=== PATIENT | male | born 1940 | race Caucasian/White ===

== ENCOUNTER → 2016-06-16 | Outpatient (CLI) | payer MEDICARE, OTHER ==
[~2016-06-16] MED LIST: ATEN50TA PO; ATOR40TA PO; CIPR500T78 PO; DULO60CA6 PO; LEVO200T39 PO; LISI1TAB10 PO; TRAM50TA2 PO
--- OUTSIDE RECORDS SUMMARY | 2016-06-16 14:54 | XMS REPORT | Continuity of Care Document ---
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 Name Role Phone BRIDGETT GUEVARA MD PCP Insurance Providers Payer Name Policy Number Subscriber Name Relationship [employer] Medicare [id number] Ilia Barbour 18 Self / Same As Patient [facility] [id number] Ilia Barbour 18 Self / Same As Patient Advance Directives Directive Response Recorded Date/Time Advance Directives No 07/09/14 12:40pm Health Care Power of Mechanical Designer No 07/09/14 12:40pm Organ Donor No 07/09/14 12:40pm Resuscitation Status Full Code 07/09/14 12:40pm Problems Medical Problems Problem Onset Date Status Urinary tract infection Unknown Active Medications Medication Dose Route Sig Days/Qty Instructions Order Date Discontinued Date Status Atorvastatin Calcium 1 Each PO DAILY 09/16/11 Active Atenolol 1 Each PO DAILY 09/16/11 Active HCTZ/Lisinopril (Zestoretic) 1 Each PO DAILY 09/16/11 Active Levothyroxine Sodium 200 Mcg PO 09/16/11 Active Duloxetine HCl 1 Each PO DAILY 09/16/11 Active Tramadol Hcl 50 Mg PO 09/16/11 Active Ciprofloxacin HCl 500 Mg PO TWICE A DAY 14 Qty 07/09/14 Active Social History Social History Problem Response Recorded Date/Time Alcohol Use Denies Use 07/09/2014 12:40pm Recreational Drug Use No 07/09/2014 12:40pm Recent Foreign Travel No 07/09/2014 12:40pm Recent Infectious Disease Exposure No 07/09/2014 12:40pm Hospitalization with Isolation Denies 07/09/2014 12:40pm Smoking Status Former Smoker 07/09/2014 12:40pm Query Response Start Date Stop Date Smoking Status Former Smoker 06/06/1995 Hospital Discharge Instructions No hospital discharge instructions. Plan of Care No plan of care. Functional Status No functional status results. Allergies, Adverse Reactions, Alerts Allergen Type Severity Reaction Status Last Updated No Known Drug Allergies Active 09/17/11 Immunizations Name Given Type Date of Influenza Vaccine 02/04/14 Historical Vital Signs Acute Vital Signs Vital Response Date/Time Temperature (Fahrenheit) 96.9 degrees F (97.6 - 99.5) Temperature (Calculated Celsius) 36.80637 degrees C (36.4 - 37.5) Temperature Source Temporal Pulse Rate (adult) 78 bpm (60 - 90) Respiratory Rate 20 bpm (12 - 24) O2 Sat by Pulse Oximetry 94 % (88 - 100) Blood Pressure 120/76 mm Hg Pain Pain Intensity 0 Height (Feet) 6 feet Height (Inches) 1 inches Height (Calculated Centimeters) 185.150062 cm Weight (Pounds) 255 pounds Weight (Calculated Kilograms) 115.206415 kilograms Calculated BMI 33.64 Results Laboratory Results Test Name Result Units Flags Reference Collection Date/Time Result Date/ Time Comments Urine Color YELLOW 07/09/2014 1:19pm 07/09/2014 1:41pm Urine Clarity VERY CLOUDY * 07/09/2014 1:pm 07/09/2014 1:41pm Urine pH 6 5-9 07/09/2014 1:19pm 07/09/2014 1:41pm Urine Specific [place] 1.015 * 1.016-1.022 07/09/2014 1:19pm 2014 1:41pm Urine Protein 2+ * NEGATIVE 07/09/2014 1:19pm 07/09/2014 1:41pm Urine Glucose (UA) NEGATIVE NEGATIVE 07/09/2014 1:19pm 07/09/2014 1: 41pm Urine RBC (Auto) 4+ * NEGATIVE 07/09/2014 1:19pm 07/09/2014 1:41pm Urine Ketones NEGATIVE NEGATIVE 07/09/2014 1:pm 07/09/2014 1:41pm Urine Nitrite NEGATIVE NEGATIVE 07/09/2014 1:pm 07/09/2014 1:41pm Urine Bilirubin NEGATIVE NEGATIVE 07/09/2014 1:pm 07/09/2014 1: 41pm Urine Urobilinogen 8 MG/DL * NORMAL 07/09/2014 1:19pm 07/09/2014 1:41pm Urine Leukocyte Esterase 3+ * NEGATIVE 07/09/2014 1:pm 07/09/2014 1: 41pm Urine RBC 0-2 /HPF 07/09/2014 1:pm 07/09/2014 1:41pm Urine WBC >100 /HPF * 07/09/2014 1:pm 07/09/2014 1:41pm Urine Bacteria MODERATE /HPF * 07/09/2014 1:pm 07/09/2014 1:41pm Urine Squamous Epithelial Cells RARE /HPF 07/09/2014 1:19pm 2014 1:41pm Urine Crystals NONE /LPF 07/09/2014 1:19pm 07/09/2014 1:41pm Urine Casts NONE /LPF 07/09/2014 1:19pm 07/09/2014 1:41pm Urine Mucus NEGATIVE /LPF 07/09/2014 1:19pm 07/09/2014 1:41pm Urine Culture Indicated YES 07/09/2014 1:pm 07/09/2014 1:41pm Procedures No known history of procedures. Encounters Encounter Location Date/Time Departed Emergency Room [facility] 07/09/14 12:31pm Recent Diagnosis
[2016-06-16 15:09] LABS: BILIRUBIN,URINE NEGATIVE (NEGATIVE); KETONES,URINE NEGATIVE (NEGATIVE); LEUKOCYTE ESTERASE ,URINE 3+ (NEGATIVE); NITRITE,URINE POSITIVE (NEGATIVE); PH,URINE 6.5 (5-9); PROTEIN,URINE NEGATIVE (NEGATIVE); UROBILINOGEN,URINE NORMAL (NORMAL)
[2016-06-16 15:18] LABS: WBC,URINE TNTC /HPF
== END ==
LOC: LAB 14:48
PROVIDERS: ATTEND Internal Medicine
DX: R31.0 Gross hematuria (principal); R32 Unspecified urinary incontinence
CPT/HCPCS: 81000; 87088; 87186

== ENCOUNTER → 2018-01-05 | Outpatient (CLI) | payer MEDICARE, OTHER ==
[2018-01-05 16:59] LABS: BILIRUBIN,URINE NEGATIVE (NEGATIVE); CLARITY,URINE SLIGHTLY CLOUDY; COLOR,URINE YELLOW; GLUCOSE, URINE (UA) NEGATIVE (NEGATIVE); KETONES,URINE NEGATIVE (NEGATIVE); LEUKOCYTE ESTERASE ,URINE 3+ (NEGATIVE); NITRITE,URINE NEGATIVE (NEGATIVE); PH,URINE 6.5 (5-9); PROTEIN,URINE 1+ (NEGATIVE); UROBILINOGEN,URINE NORMAL (NORMAL)
[2018-01-05 17:11] LABS: BACTERIA,URINE FEW /HPF; RBC,URINE 0-2 /HPF; SQUAMOUS EPITHELIAL CELL,UR 0-2 /HPF; WBC,URINE 25-50 /HPF
== END ==
LOC: LAB 16:43
PROVIDERS: ATTEND Internal Medicine
DX: N39.0 Urinary tract infection, site not specified (principal)
CPT/HCPCS: 81000; 87088; 87186

== ENCOUNTER 2018-02-14 14:57 | Inpatient (IN) | payer MEDICARE, OTHER ==
[~2018-02-14] VITALS: Ht 180.3 cm; Wt 158.9 kg
--- OUTSIDE RECORDS SUMMARY | 2018-02-14 15:01 | XMS REPORT | Continuity of Care Document ---
Author Author [facility] Organization [facility] Address Unknown Phone Unavailable Allergies Active Description Code Type Severity Reaction Onset Reported/Identified Relationship to Patient Clinical Status Yes No Known Drug Allergies [id number] Drug Allergy Unknown N/A 09/17/2011 Medications There is no data. Problems Date Dx Coded Attending Type Code Diagnosis Diagnosed By 09/17/2011 Ot 211.1 09/17/2011 Ot 211.3 09/17/2011 Ot 535.40 09/17/2011 Ot 562.00 09/17/2011 Ot 562.10 09/17/2011 Ot 569.3 09/17/2011 Ot 783.21 09/17/2011 Ot 787.99 07/09/2014 HUAN GRAY WELDER/FITTER Ot 599.0 07/09/2014 HUAN GRAY APRN Ot 788.1 08/28/2014 Ot 722.52 08/28/2014 Ot 783.21 08/28/2014 Ot V10.90 08/28/2014 Ot V72.84 08/28/2014 Ot 782.3 09/09/2014 ANGÉLICA LEAVITT MD Ot 250.60 09/09/2014 ANGÉLICA LEAVITT MD Ot 272.4 09/09/2014 ANGÉLICA LEAVITT MD Ot 357.2 09/09/2014 ANGÉLICA LEAVITT MD Ot 401.9 09/09/2014 ANGÉLICA LEAVITT MD Ot 412 09/09/2014 ANGÉLICA LEAVITT MD Ot 414.01 09/09/2014 ANGÉLICA LEAVITT MD Ot 440.8 09/09/2014 ANGÉLICA LEAVITT MD Ot 729.5 09/09/2014 ANGÉLICA LEAVITT MD Ot E11.40 09/09/2014 ANGÉLICA LEAVITT MD Ot I10 09/09/2014 ANGÉLICA LEAVITT MD Ot I25.10 09/09/2014 ANGÉLICA LEAVITT MD Ot I25.2 09/09/2014 TREE GARZON, ANGÉLICA Pino Ot I70.8 09/09/2014 TREE GARZON, ANGÉLICA Pino Ot M79.609 10/01/2014 ISMAEL GARZON, BRIDGETT Lawson Ot 443.9 10/25/2014 ISMAEL GARZON, BRIDGETT Lawson Ot 443.9 01/09/2015 Ot 722.52 01/09/2015 Ot 783.21 01/09/2015 Ot V10.90 01/09/2015 Ot V72.84 01/09/2015 Ot 782.3 01/09/2015 ISMAEL GARZON, BRIDGETT Lawson Ot 443.9 01/09/2015 ISMAEL GARZON, BRIDGETT Lawson Ot 724.4 01/09/2015 ISMAEL GARZON, BRIDGETT Lawson Ot 736.79 01/16/2015 ISMAEL GARZON, BRIDGETT Lawson Ot 724.4 01/16/2015 ISMAEL GARZON, BRIDGETT Lawson Ot 736.79 01/16/2015 ISMAEL GARZON, BRIDGETT Lawson Ot V57.1 01/21/2015 ISMAEL GARZON, BRIDGETT Lawson Ot 724.4 01/21/2015 ISMAEL GARZON, BRIDGETT Lawson Ot 736.79 01/30/2015 ISMAEL GARZON, BRIDGETT Lawson Ot 724.4 01/30/2015 ISMAEL GARZON, BRIDGETT Lawson Ot 736.79 02/13/2015 ISMAEL GARZON, BRIDGETT Lawson Ot 724.4 02/13/2015 ISMAEL GARZON, BRIDGETT Lawson Ot 736.79 02/13/2015 ISMAEL GARZON, BRIDGETT Lawson Ot V57.1 04/01/2015 DIANDRA IVEY DO Ot M54.16 04/10/2015 DIANDRA IVEY DO Ot M54.16 02/27/2016 BRIDGETT GUEVARA MD Ot N39.0 URINARY TRACT INFECTION, SITE NOT SPECIF 03/18/2016 BRIDGETT GUEVARA MD Ot N39.0 URINARY TRACT INFECTION, SITE NOT SPECIF 06/17/2016 BRIDGETT GUEVARA MD Ot R31.0 GROSS HEMATURIA 06/17/2016 BRIDGETT GUEVARA MD Ot R32 UNSPECIFIED URINARY INCONTINENCE 07/07/2016 BRIDGETT GUEVARA MD Ot R31.0 GROSS HEMATURIA 07/07/2016 BRIDGETT GUEVARA MD, Ot R32 UNSPECIFIED URINARY INCONTINENCE Procedures There is no data. Results Test Result Range Bacterial urine culture - 02/26/16 14:04 Bacterial urine culture [id number] NRG COLONY COUNT >100,000/ML NRG FTX;REPORTABLE SENSITIVITY REPORTED 02/26 14:50 NR Bacterial susceptibility panel - 02/26/16 14:04 Gentamicin susceptibility test by minimum inhibitory concentration < = NRG Trimethoprim/sulfamethoxazole susceptibility test by minimum inhibitoryconcentration <= NRG Ampicillin susceptibility test by minimum inhibitory concentration < = NRG Tobramycin susceptibility test by minimum inhibitory concentration < = NRG Cefazolin susceptibility test by minimum inhibitory concentration < = NRG Ceftriaxone susceptibility test by minimum inhibitory concentration <= NRG Ampicillin/sulbactam susceptibility test by minimum inhibitory concentration <= NRG Piperacillin/tazobactam susceptibility test by minimum inhibitory concentration <= NRG Ciprofloxacin susceptibility test by minimum inhibitory concentration <= NRG Meropenem susceptibility test by minimum inhibitory concentration < = NRG Nitrofurantoin susceptibility test by minimum inhibitory concentration <= NRG Aztreonam susceptibility test by minimum inhibitory concentration < = NRG Extended spectrum beta lactamase (ESBL) producing bacteria susceptibility test by minimum inhibitory concentration - NRG Complete urinalysis with reflex to culture - 06/16/16 15:05 Urine color determination YELLOW NRG Urine clarity determination CLEAR NRG Urine pH measurement by test strip 6.5 5-9 Specific gravity of urine by test strip 1.010 1.016- 1.022 Urine protein assay by test strip, semi-quantitative NEGATIVE NEGATIVE Urine glucose detection by automated test strip NEGATIVE NEGATIVE Erythrocytes detection in urine sediment by light microscopy 1+ NEGATIVE Urine ketones detection by automated test strip NEGATIVE NEGATIVE Urine nitrite detection by test strip POSITIVE NEGATIVE Urine total bilirubin detection by test strip NEGATIVE NEGATIVE Urine urobilinogen measurement by automated test strip (mass/volume) NORMAL NORMAL Urine leukocyte esterase detection by dipstick 3+ NEGATIVE Automated urine sediment erythrocyte count by microscopy (number/high power field) [HPF] NRG Automated urine sediment leukocyte count by microscopy (number/high power field ) TNTC NRG Bacteria detection in urine sediment by light microscopy LARGE NRG Crystals detection in urine sediment by light microscopy NONE NRG Casts detection in urine sediment by light microscopy NONE NRG Mucus detection in urine sediment by light microscopy NEGATIVE NRG Complete urinalysis with reflex to culture YES NRG Bacterial urine culture - 06/16/16 15:05 Bacterial urine culture [id number] NRG COLONY COUNT >100,000/ML NRG FTX;REPORTABLE SENSITIVITY REPORTED 06/18 09:20 NRG Bacterial susceptibility panel - 06/16/16 15:05 Gentamicin susceptibility test by minimum inhibitory concentration < = NRG Trimethoprim/sulfamethoxazole susceptibility test by minimum inhibitoryconcentration <= NRG Ampicillin susceptibility test by minimum inhibitory concentration < = NRG Tobramycin susceptibility test by minimum inhibitory concentration < = NRG Cefazolin susceptibility test by minimum inhibitory concentration < = NRG Ceftriaxone susceptibility test by minimum inhibitory concentration <= NRG Ampicillin/sulbactam susceptibility test by minimum inhibitory concentration <= NRG Piperacillin/tazobactam susceptibility test by minimum inhibitory concentration <= NRG Ciprofloxacin susceptibility test by minimum inhibitory concentration <= NRG Meropenem susceptibility test by minimum inhibitory concentration < = NRG Nitrofurantoin susceptibility test by minimum inhibitory concentration <= NRG Aztreonam susceptibility test by minimum inhibitory concentration < = NRG Extended spectrum beta lactamase (ESBL) producing bacteria susceptibility test by minimum inhibitory concentration - NRG Complete urinalysis with reflex to culture - 01/05/18 16:54 Urine color determination YELLOW NRG Urine clarity determination SLIGHTLY CLOUDY NRG Urine pH measurement by test strip 6.5 5-9 Specific gravity of urine by test strip 1.010 1.016- 1.022 Urine protein assay by test strip, semi-quantitative 1+ NEGATIVE Urine glucose detection by automated test strip NEGATIVE NEGATIVE Erythrocytes detection in urine sediment by light microscopy 1+ NEGATIVE Urine ketones detection by automated test strip NEGATIVE NEGATIVE Urine nitrite detection by test strip NEGATIVE NEGATIVE Urine total bilirubin detection by test strip NEGATIVE NEGATIVE Urine urobilinogen measurement by automated test strip (mass/volume) NORMAL NORMAL Urine leukocyte esterase detection by dipstick 3+ NEGATIVE Automated urine sediment erythrocyte count by microscopy (number/high power field) [HPF] NRG Automated urine sediment leukocyte count by microscopy (number/high power field ) [HPF] NRG Bacteria detection in urine sediment by light microscopy FEW NRG Squamous epithelial cells detection in urine sediment by light microscopy 0-2 NRG Crystals detection in urine sediment by light microscopy NONE NRG Casts detection in urine sediment by light microscopy NONE NRG Mucus detection in urine sediment by light microscopy NEGATIVE NRG Complete urinalysis with reflex to culture YES NRG Bacterial urine culture - 01/05/18 16:54 Bacterial urine culture RML NRG COLONY COUNT . NRG FTX;REPORTABLE 80,000 CFU/ML NRG FREE TEXT ENTRY 2 RML SENT SENSITIVITY REPORT 01/07 11:06 NRG RML Sensitivity Panel - 01/05/18 16:54 Gentamicin susceptibility test by minimum inhibitory concentration 4 NRG Trimethoprim/sulfamethoxazole susceptibility test by minimum inhibitoryconcentration S NRG Levofloxacin susceptibility test by minimum inhibitory concentration <= NRG Ampicillin susceptibility test by minimum inhibitory concentration < = NRG Cefazolin susceptibility test by minimum inhibitory concentration 16 NRG Ceftriaxone susceptibility test by minimum inhibitory concentration <= NRG Ciprofloxacin susceptibility test by minimum inhibitory concentration <= NRG Nitrofurantoin susceptibility test by minimum inhibitory concentration R NRG Amoxicillin and clavulanate potassium susc MARINA <= NRG Encounters ACCT No. Visit Date/Time Discharge Status Pt. Type Provider Facility Loc./Unit Complaint [id number] 06/16/2016 14:48:00 06/16/2016 23:59:59 CLS Outpatient BRIDGETT GUEVARA MD [facility] LAB GROSS HEMATURIA, URINARY INCONTINENCE [id number] 02/26/2016 13:53:00 02/26/2016 23:59:59 CLS Outpatient BRIDGETT GUEVARA MD [facility] LAB PYURIA [id number] 03/11/2015 12:24:00 03/11/2015 23:59:59 CLS Outpatient DIANDRA IVEY DO [facility] RAD [id number] 02/13/2015 11:09:00 02/13/2015 12:17:00 DIS Outpatient BRIDGETT GUEVARA MD [facility] REHAB [id number] 12/27/2014 07:50:00 12/27/2014 23:59:59 CLS Outpatient BRIDGETT GUEVARA MD [facility] RAD [id number] 09/09/2014 06:54:00 09/09/2014 16:20:00 DIS Outpatient ANGÉLICA LEAVITT MD [facility] CATH [id number] 08/28/2014 09:21:00 08/28/2014 23:59:59 CLS Outpatient BRIDGETT GUEVARA MD [facility] RAD [id number] 07/09/2014 12:31:00 07/09/2014 14:13:00 DIS Emergency HUAN GRAY APRN [facility] [id number] 01/05/2018 17:11:00 Document Registration [id number] 07/10/2012 16:09:00 Document Registration [id number] 09/17/2011 06:52:00 Document Registration [id number] 09/16/2011 08:26:00 Document Registration [id number] 09/08/2011 11:11:00 Document Registration [id number] 10/09/2009 13:05:00 Document Registration [id number] 03/11/2015 15:28:34 ACT Document Registration
--- NOTE | 2018-02-14 15:12 | ED General ---
General Stated Complaint: UTI;AMS Source of Information: Patient, EMS Exam Limitations: Other (clinical condition, slightly obtunded) History of Present Illness Date Seen by Provider: Feb 14, 2018 Time Seen by Provider: 14:58 Initial Comments Patient presents to the ER by EMS with chief complaint he was at home and for the past several days she's been feeling sick week tired with fevers of 103 today MAXIMUM TEMPERATURE. and taken him to his primary care doctor's office in the last day or so and they did some labs and urinalysis but she doesn 't know what any of the results were. She says they were called out told something was wrong with him but she doesn't remember that nor does she think they were started on any antibiotics. There were told to come to the ER for evaluation. Patient does not have a Anguiano catheter use oxygen but his sats are around 90% so they initiated O2. EMS reports 103.1 fever when they got there. IV was initiated and fluids were started. Patient had a good blood pressure with some tachycardia above 90. Patient does not have a history of diabetes. He says he does take a baby aspirin daily. Apparently this is according to the his second attempt at outpatient antibiotics for UTIs in the last couple weeks. He has no history of kidney stones. He was having some right flank pain the last couple days however. Allergies and Home Medications Allergies Coded Allergies: No Known Drug Allergies (Unverified , 09/17/11) Home Medications Atenolol 50 Mg Tablet, 1 EACH PO DAILY, (Reported) Atorvastatin Calcium 40 Mg Tablet, 1 EACH PO DAILY, (Reported) Ciprofloxacin HCl 500 Mg Tablet, 500 MG PO BID Prescribed by: HUAN GRAY on 07/09/14 1345 Duloxetine Hcl 60 Mg Capsule.dr, 1 EACH PO DAILY, (Reported) Hctz/Lisinopril 1 Tab Tablet, 1 EACH PO DAILY, (Reported) Patient Home Medication List Home Medication List Reviewed: Yes Review of Systems Review of Systems Constitutional: chills, diaphoresis, fever, malaise EENTM: No ear discharge, No ear pain Respiratory: No cough, No short of breath Cardiovascular: No chest pain, No edema, No palpitations Gastrointestinal: abdominal pain (right flank); No nausea, No vomiting Genitourinary: decreased output; No discharge; dysuria; No frequency Musculoskeletal: No back pain, No joint pain Skin: No pruritus, No rash Past Nfhaksm-Fcdbvu-Aasdfa Hx Patient Social History Alcohol Use: Denies Use Recreational Drug Use: No Smoking Status: Never a Smoker Immunizations Up To Date Date of Influenza Vaccine: Feb 04, 2014 Seasonal Allergies Seasonal Allergies: No Physical Exam-Suspected Sepsis Physical Exam Vital Signs Vital Signs - First Documented 02/14/18 02/14/18 15:00 15:34 Temp 102.5 Pulse 98 Resp 20 B/P (MAP) 152/81 (104) Pulse Ox 97 O2 Delivery OxyMask O2 Flow Rate 4.00 Capillary Refill : Height, Weight, BMI Height: 6'1.00" Weight: 250lbs. oz. 113.433768ya; BMI Method: General Appearance: Moderate Distress, Obese Eyes: Bilateral Eye Normal Inspection, Bilateral Eye PERRL, Bilateral Eye EOMI HEENT: PERRL/EOMI, TMs Normal, Normal ENT Inspection; No Moist Mucous Membranes Neck: Full Range of Motion, Normal Inspection, Non Tender Respiratory: Chest Non Tender, Lungs Clear, Normal Breath Sounds, No Accessory Muscle Use, No Respiratory Distress Cardiovascular: Regular Rate, Rhythm, No Edema, Normal Peripheral Pulses Gastrointestinal: Normal Bowel Sounds, Non Tender, Soft Extremity: Normal Capillary Refill, Normal Inspection, Non Tender, No Calf Tenderness, No Pedal Edema Neurologic/Psychiatric: Alert, Oriented x3, Other (oriented to person and situation) Skin: warm/dry, pallor Focused Exam Sepsis Stage: Septic Shock Possible Source: Genitouriary Lactate Level 02/14/18 15:00: Lactic Acid Level 2.90*H 02/14/18 20:30: Lactic Acid Level 2.74*H Time of Focused Exam: 20:21 Respiratory: Chest Non Tender, Lungs Clear, Normal Breath Sounds, No Accessory Muscle Use, No Respiratory Distress Cardiovascular: Regular Rate, Rhythm, No Edema, Normal Peripheral Pulses Capillary Refill: Less Than 3 Seconds Peripheral Pulses: 2+ Radial Pulses (R), 2+ Radial Pulses (L) Skin: warm/dry, pallor Lactic Acid Level Laboratory Tests Test 02/14/18 20:30 Lactic Acid Level 2.74 MMOL/L (0.50-2.00) *H 2.9 Within 3hrs of presentation: Admin fluids, Admin 30ml/kg IBW due to BMI>30, Admin ABX, Blood cultures prior to ABX's, Focus exam, Lactate level, Vasopressin therapy, Other (central line placed) Procedures/Interventions Lumen: triple Central Line Procedure: betadine prep (chlorhexidine preps), sterile drapes applied, sterile dressing applied Position: internal jugular (L) Anesthesia: Lidocaine Volume Anesthetic (ccs): 3 Complications: none Post Position: sutured, good blood return, position confirmed w/ CXR Patient was positioned in the usual fashion and his right IJ was assessed using ultrasound. A large pulsating common carotid was seen but no right-sided internal jugular was visualized on ultrasound. Went to the left side and there is a large plump, compressible internal jugular vein visualized easily on ultrasound laterally. He was cleaned thoroughly with chlorhexidine preps and draped out in the usual sterile fashion. The provider was draped with sterile gown, mask, gloves and hair piece. The patient's head was positioned correctly and ultrasound probe under sterile conditions guided a introducer needle easily into the left IJ on first attempt with good blood return. We passed a guidewire easily without causing any ectopy and then made a small tuyet in the skin using 11 blade scalpel. We then removed the needle and put the dilator over the guidewire and removed the dilator. Then passed the previously flushed triple lumen 20 cm catheter over the guidewire, flushed it and That using the sterile caps PROVIDED. We stitched the braces to the scan as well as the triple-lumen to the skin in [address]. We put a Biopatch in place and applied a sterile dressing in the usual fashion. Chest x-ray was obtained showing a superficial placement at about the level of the clavicle on the left side of the sternum. The line was placed at 14 cm. Re-donning sterile garb we removed the sterile dressing cleaned thoroughly with chlorhexidine prep and removed 2 stitches and passed the central line to the 17 cm hussain. We then re-stitched in place for a new bile patch on cleaned again with ChloraPrep and reapplied a sterile dressing. Chest x-ray was obtained a second time showing a central line just passed the aortic knob on the left side. At this time this was considered satisfactory placement and we started the Levophed infusion through the central line as well as a normal saline at 200 cc an hour. Progress/Results/Core Measures Suspected Sepsis SIRS Temperature: Pulse: Respiratory Rate: Laboratory Tests 02/14/18 15:00: White Blood Count 5.3 Blood Pressure / Mean: 02/14/18 15:00: Lactic Acid Level 2.90*H 02/14/18 20:30: Lactic Acid Level 2.74*H Laboratory Tests 02/14/18 15:00: Creatinine 1.18, INR Comment 1.0, Platelet Count 153, Total Bilirubin 1.4H Results/Orders Lab Results Laboratory Tests Test 02/14/18 15:00 02/14/18 15:05 02/14/18 20:30 Range/Units White Blood Count 5.3 4.3-11.0 10^3/uL Red Blood Count 4.74 4.35-5.85 10^6/uL Hemoglobin 14.1 13.3-17.7 G/DL Hematocrit 42 40-54 % Mean Corpuscular Volume 89 80-99 FL Mean Corpuscular Hemoglobin 30 25-34 PG Mean Corpuscular Hemoglobin Concent 33 32-36 G/DL Red Cell Distribution Width 15.1 H 10.0-14.5 % Platelet Count 153 130-400 10^3/uL Mean Platelet Volume 11.1 H 7.4-10.4 FL Neutrophils (%) (Auto) 95 H 42-75 % Lymphocytes (%) (Auto) 4 L 12-44 % Monocytes (%) (Auto) 0 0-12 % Eosinophils (%) (Auto) 0 0-10 % Basophils (%) (Auto) 0 0-10 % Neutrophils # (Auto) 5.0 1.8-7.8 X 10^3 Lymphocytes # (Auto) 0.2 L 1.0-4.0 X 10^3 Monocytes # (Auto) 0.0 0.0-1.0 X 10^3 Eosinophils # (Auto) 0.0 0.0-0.3 10^3/uL Basophils # (Auto) 0.0 0.0-0.1 10^3/uL Neutrophils % (Manual) 82 % Lymphocytes % (Manual) 4 % Monocytes % (Manual) 0 % Eosinophils % (Manual) 0 % Basophils % (Manual) 0 % Band Neutrophils 14 % Blood Morphology Comment NORMAL Prothrombin Time 13.5 12.2-14.7 SEC INR Comment 1.0 0.8-1.4 Activated Partial Thromboplast Time 20 L 24-35 SEC Sodium Level 132 L 135-145 MMOL/L Potassium Level 4.4 3.6-5.0 MMOL/L Chloride Level 102 98-107 MMOL/L Carbon Dioxide Level 18 L 21-32 MMOL/L Anion Gap 12 5-14 MMOL/L Blood Urea Nitrogen 19 H 7-18 MG/DL Creatinine 1.18 0.60-1.30 MG/DL Estimat Glomerular Filtration Rate 60 BUN/Creatinine Ratio 16 Glucose Level 177 H 70-105 MG/DL Lactic Acid Level 2.90 *H 2.74 *H 0.50-2.00 MMOL/L Calcium Level 9.4 8.5-10.1 MG/DL Corrected Calcium 9.6 8.5-10.1 MG/DL Total Bilirubin 1.4 H 0.1-1.0 MG/DL Aspartate Amino Transf (AST/SGOT) 18 5-34 U/L Alanine Aminotransferase (ALT/SGPT) 20 0-55 U/L Alkaline Phosphatase 94 40-136 U/L Total Protein 6.8 6.4-8.2 GM/DL Albumin 3.7 3.2-4.5 GM/DL Urine Color YELLOW Urine Clarity SLIGHTLY CLOUDY Urine pH 8 5-9 Urine Specific [place] 1.010 L 1.016-1.022 Urine Protein 2+ H NEGATIVE Urine Glucose (UA) NEGATIVE NEGATIVE Urine Ketones NEGATIVE NEGATIVE Urine Nitrite POSITIVE H NEGATIVE Urine Bilirubin NEGATIVE NEGATIVE Urine Urobilinogen NORMAL NORMAL MG/DL Urine Leukocyte Esterase 3+ H NEGATIVE Urine RBC (Auto) 5+ H NEGATIVE Urine RBC 10-25 H /HPF Urine WBC TNTC H /HPF Urine Crystals NONE /LPF Urine Bacteria LARGE H /HPF Urine Casts NONE /LPF Urine Mucus NEGATIVE /LPF Urine Culture Indicated NO Micro Results Microbiology 02/14/18 Urine Culture - Preliminary, Resulted Sent To [facility] My Orders Orders - RISA BEST Cbc With Automated Diff (02/14/18 15:05) Comprehensive Metabolic Panel (02/14/18 15:05) Blood Culture (02/14/18 15:05) Sputum Culture (02/14/18 15:05) Urinalysis (02/14/18 15:05) Urine Culture (02/14/18 15:05) Protime With Inr (02/14/18 15:05) Partial Thromboplastin Time (02/14/18 15:05) Chest 1 View, Ap/Pa Only (02/14/18 15:05) Saline Lock/Iv-Start (02/14/18 15:05) Saline Lock/Iv-Start (02/14/18 15:05) Vital Signs Adult Sepsis Patie Q15M (02/14/18 15:05) O2 (02/14/18 15:05) Remove Rings In Anticipation O (02/14/18 15:05) Lactic Acid Analyzer (02/14/18 15:05) Ns Iv 1000 Ml (Sodium Chloride 0.9%) (02/14/18 15:05) Ceftriaxone For Iv Use (Rocephin For I (02/14/18 15:15) Acetaminophen Suppository (Tylenol Suppo (02/14/18 15:15) Manual Differential (02/14/18 15:00) Catheter(Urinary) Insert & Ass 03,15 (02/14/18 15:46) Ct Abd/Pelvis Wo(Kidney Stone) (02/14/18 16:10) Norepinephrine (Levophed) (02/14/18 18:28) Chest 1 View, Ap/Pa Only (02/14/18 19:24) Chest 1 View, Ap/Pa Only (02/14/18 19:41) Abdomen/Kub 1view (02/14/18 20:26) Medications Given in ED Current Medications Medications Dose Ordered Sig/Connor Route Start Time Stop Time Status Last Admin Dose Admin Acetaminophen 650 mg ONCE ONCE MN 02/14/18 15:15 02/14/18 15:16 DC 02/14/18 16:03 650 MG Ceftriaxone Sodium 1000 mg/ Sodium Chloride 60 ml @ 100 mls/hr ONCE ONCE IV 02/14/18 15:15 02/14/18 15:50 DC 02/14/18 16:02 100 MLS/HR Vital Signs/I&O 02/14/18 02/14/18 02/14/18 15:00 15:34 19:53 Temp 102.5 101.2 Pulse 98 96 Resp 20 24 B/P (MAP) 152/81 (104) 98/55 (69) Pulse Ox 97 92 94 O2 Delivery OxyMask OxyMask O2 Flow Rate 4.00 8.00 Capillary Refill : Progress Note : Time: 18:45 Progress Note Patient's blood pressure started taking a tank after the antibiotics were delivered. We ordered a third liter and a still or going down with a map of about 60. We decided to initiate a central line and Levophed drip. Initially Levophed drip of 5 g brought him up to a blood pressure 110 so we dropped the Levophed to 2.5 mcg/m. A central line was placed and he was kept on the Levophed. Diagnostic Imaging Diagonstic Imaging: Xray Plain Films/CT/US/NM/MRI: chest (1v) Comments [place] NAME: DIANDRA VO [facility] REC#: [id number] PT STATUS: REG ER : 1940 PHYSICIAN: RISA BEST MD ADMIT DATE: 02/14/18/ER Draft Date of Exam:02/14/18 CHEST 1 VIEW, AP/PA ONLY INDICATION: Fever and altered mental status. TIME OF EXAM: 3:41 p.m. COMPARISON: Correlation is made with prior study from 09/08/2011. FINDINGS: The heart size is stable. The lungs appear to be clear. No infiltrate or failure is seen. No effusion or pneumothorax is detected. The pulmonary vascularity is normal. IMPRESSION: No acute cardiopulmonary process is detected. Dictated on workstation # [id number] Dict: 02/14/18 1558 Trans: 02/14/18 1601 [id number] Interpreted by: TERESA ZHENG MD Electronically signed by: Reviewed: Reviewed by Me Diagonstic Imaging: CT (kidney stone study without contrast) Plain Films/CT/US/NM/MRI: abdomen, pelvis Comments NAME: VO,DIANDRA [facility] REC#: [id number] PHYSICIAN: RISA BEST MD CC: TERESA ZHENG MD; RISA BEST Page 2 of 2 RADIOLOGY REPORT [place] CC: TERESA ZHENG MD; RISA BEST Page 1 of 2 RADIOLOGY REPORT NAME: DIANDRA VO [facility] REC#: [id number] PT STATUS: REG ER : 1940 PHYSICIAN: RISA BEST MD ADMIT DATE: 02/14/18/ER Signed Date of Exam: 02/14/18 CT ABD/PELVIS WO(KIDNEY STONE) PROCEDURE: CT urinary tract, rule out kidney stone. TECHNIQUE: Multiple contiguous axial images were obtained through the abdomen and pelvis without the use of intravenous contrast. INDICATION: Fever and possible urinary tract infection. FINDINGS: The lung bases are clear. No discrete liver mass is identified. The gallbladder is surgically absent. The pancreas is unremarkable. Spleen contains numerous calcified granulomas. No adrenal mass is identified. Left kidney does contain a 5.1 cm cyst, similar to CT study from 2006. There appears to be a tiny nonobstructing calculus lower pole of the left kidney. Right kidney does show moderate hydroureteronephrosis with perinephric and periureteral inflammatory stranding. Dilated right ureter is traced into the pelvis where there is a 4 mm calculus present. Left ureter is unremarkable. The bladder is decompressed by Anguiano catheter. Aorta is calcified but nonaneurysmal. Small and large bowel loops are normal caliber. There is no ascites. The prostate is unremarkable. IMPRESSION: 1. A 4 mm distal right ureteric calculus producing moderate hydroureteronephrosis with perinephric and periureteral inflammatory stranding. 2. Stable left renal cyst and tiny nonobstructing left renal calculus. Dictated by: Dictated on workstation # [id number] Dict: 02/14/18 1646 Trans: 02/14/18 183 Interpreted by: TERESA ZHENG MD Electronically signed by: TERESA ZHEGN MD 02/14/181831 Reviewed: Reviewed by [place] Critical Care Note Critical Care Start Time: 18:45 Stop Time: 20:30 Total Time (minutes) 105 Progress When the patient's blood pressure started to go low we repeated it replaced the cuff and it was still low so we started a third liter of fluids. The liter fluids did not benefit his blood pressure significantly so made plans to start a central line and obtained consent from the patient and his . We have the patient in Trendelenburg which helped some with his blood pressure keeping his map) 65 but the lowest it got was [address]. [address] a central line had to reposition it and then started him on the Levophed at 2.5 had to trim it up to 5 in and he wanted to sit up have some ice chips so we set him up and had to bring the Levophed at 8 and then reclined him again. He has talking looking around the room asking appropriate questions and making sense, alert, oriented 3 which is a huge improvement in mentation. He is protecting his own airway. We made provisions with internal medicine, eICU, Dr. Gardner, urology team to take care of the patient on ICU. Patient wishes to be full code. Departure Communication (Admissions) Time/Spoke to Admitting Phy: 20:15 Discussed the case lab imaging findings of kidney stones UTI septic shock and our interventions with Dr. Mcguire he wants the ICU support in deciding antibiotic coverage. He is okay with continue Levophed. He also would like to will consulted tonight since the [facility] should be in town tomorrow. Time/Spoke to Consulting Phy: 20:20 Discussed case lab imaging findings with Dr. Gardner. Impression Primary Impression: Urinary tract infection Qualified Codes: N10 - Acute pyelonephritis Additional Impressions: Renal calculus Septic shock Disposition: ADMITTED INPATIENT Condition: Critical Admissions Decision to Admit Reason: Admit from ER (General) Decision to Admit/Date: Feb 14, 2018 Time/Decision to Admit Time: 19:59 Departure-Patient Inst. Referrals: HUSSAIN GUEVARA MD (PCP/Family) Primary Care Physician Copy Copies To 1: HUSSAIN GUEVARA MD, TITUS J Feb 14, 2018 15:12
[2018-02-14] MEDS ORDERED: ACETAMINOPHEN 650 MG SUPP (TYLENOL) PR ONE (15:15)
[2018-02-14] MEDS ORDERED: cefTRIAXone FOR IV USE 1,000 MG in NS (IVPB) 50 ML IV ONE (15:15)
[2018-02-14 15:32] LABS: BASOPHILS % (AUTO) 0 % (0-10); EOSINOPHILS % (AUTO) 0 % (0-10); HEMATOCRIT 42 % (40-54); HEMOGLOBIN 14.1 G/DL (13.3-17.7); LYMPHOCYTES # (AUTO) 0.2 X 10^3 (1.0-4.0); LYMPHOCYTES % (AUTO) 4 % (12-44); MEAN CORPUSCULAR HEMOGLOBIN 30 PG (25-34); MEAN CORPUSCULAR HGB CONC 33 G/DL (32-36); MEAN CORPUSCULAR VOLUME 89 FL (80-99); MEAN PLATELET VOLUME 11.1 FL (7.4-10.4); MONOCYTES % (AUTO) 0 % (0-12); NEUTROPHILS % (AUTO) 95 % (42-75); PLATELET COUNT 153 10^3/uL (130-400); RED BLOOD COUNT 4.74 10^6/uL (4.35-5.85); RED CELL DISTRIBUTION WIDTH 15.1 % (10.0-14.5); WHITE BLOOD COUNT 5.3 10^3/uL (4.3-11.0)
[2018-02-14 15:34] LABS: BILIRUBIN,URINE NEGATIVE (NEGATIVE); CLARITY,URINE SLIGHTLY CLOUDY; COLOR,URINE YELLOW; GLUCOSE, URINE (UA) NEGATIVE (NEGATIVE); KETONES,URINE NEGATIVE (NEGATIVE); LEUKOCYTE ESTERASE ,URINE 3+ (NEGATIVE); NITRITE,URINE POSITIVE (NEGATIVE); PH,URINE 8 (5-9); PROTEIN,URINE 2+ (NEGATIVE); UROBILINOGEN,URINE NORMAL (NORMAL)
[2018-02-14] MEDS: NS IV 1000 ML 1,000 ML IV SCH ×3 (15:40→23:18)
[2018-02-14 15:44] LABS: PROTHROMBIN TIME PATIENT 13.5 SEC (12.2-14.7)
[2018-02-14 15:53] LABS: ALBUMIN 3.7 GM/DL (3.2-4.5); BILIRUBIN,TOTAL 1.4 MG/DL (0.1-1.0); CALCIUM 9.4 MG/DL (8.5-10.1); CREATININE SERUM 1.18 MG/DL (0.60-1.30); POTASSIUM 4.4 MMOL/L (3.6-5.0); TOTAL PROTEIN 6.8 GM/DL (6.4-8.2)
[2018-02-14 15:53] LABS: BACTERIA,URINE LARGE /HPF; WBC,URINE TNTC /HPF
--- NOTE | 2018-02-14 16:02 | Diagnostic Imaging Report ---
INDICATION: Fever and altered mental status. TIME OF EXAM: 3:41 p.m. COMPARISON: Correlation is made with prior study from 09/08/2011. FINDINGS: The heart size is stable. The lungs appear to be clear. No infiltrate or failure is seen. No effusion or pneumothorax is detected. The pulmonary vascularity is normal. IMPRESSION: No acute cardiopulmonary process is detected. Dictated by: Dictated on workstation # [id number]
[2018-02-14 16:03] LABS: BAND NEUTROPHILS 14 %; BASOPHILS % (MANUAL) 0 %; EOSINOPHILS % (MANUAL) 0 %; LYMPHOCYTES % (MANUAL) 4 %; MONOCYTES % (MANUAL) 0 %; NEUTROPHILS % (MANUAL) 82 %; RBC MORPH NORMAL
--- NOTE | 2018-02-14 16:53 | Diagnostic Imaging Report ---
PROCEDURE: CT urinary tract, rule out kidney stone. TECHNIQUE: Multiple contiguous axial images were obtained through the abdomen and pelvis without the use of intravenous contrast. INDICATION: Fever and possible urinary tract infection. FINDINGS: The lung bases are clear. No discrete liver mass is identified. The gallbladder is surgically absent. The pancreas is unremarkable. Spleen contains numerous calcified granulomas. No adrenal mass is identified. Left kidney does contain a 5.1 cm cyst, similar to CT study from 2007. There appears to be a tiny nonobstructing calculus lower pole of the left kidney. Right kidney does show moderate hydroureteronephrosis with perinephric and periureteral inflammatory stranding. Dilated right ureter is traced into the pelvis where there is a 4 mm calculus present. Left ureter is unremarkable. The bladder is decompressed by Anguiano catheter. Aorta is calcified but nonaneurysmal. Small and large bowel loops are normal caliber. There is no ascites. The prostate is unremarkable. IMPRESSION: 1. A 4 mm distal right ureteric calculus producing moderate hydroureteronephrosis with perinephric and periureteral inflammatory stranding. 2. Stable left renal cyst and tiny nonobstructing left renal calculus. Dictated by: Dictated on workstation # [id number]
[2018-02-14] MEDS ORDERED: NOREPINEPHRINE 4 MG in NS (IVPB) 250 ML IV STA (18:28)
[2018-02-14 19:53] VITALS: BP 98/55
--- NOTE | 2018-02-14 20:23 | Diagnostic Imaging Report ---
EXAMINATION: Chest radiograph, portable AP view. DATE: February 14, 2018 at 1927 hours. INDICATION: 77-year-old male, PICC line. COMPARISON: February 14, 2018 at 1541 hrs. FINDINGS: Stable overall appearance of the cardiomediastinal silhouette. There is a catheter projecting over the left neck with tip projecting at the level of the medial clavicle. No additional potential venous line is identified. Recommend repositioning of any venous line which may be present. There is no identified pneumothorax. There is no large pleural effusion. There is mild nonspecific left basilar airspace consolidation. IMPRESSION: 1. Mild nonspecific left basilar airspace consolidation. 2. Catheter projecting over the left neck with tip at the level of the medial clavicle. Recommend repositioning. Dictated by: Dictated on workstation # [id number]
--- NOTE | 2018-02-14 20:27 | Diagnostic Imaging Report ---
EXAMINATION: Chest radiograph, portable AP view. DATE: February 14, 2018 at 1943 hours. INDICATION: 77-year-old male, PICC line adjustment. COMPARISON: February 14, 2018 at 1927 hrs. FINDINGS: The left-sided venous line currently projects at the level of the aortic knob. This is of uncertain exact position. This is not definitely venous. Recommend correlation. Stable overall appearance of the cardiomediastinal silhouette. There is unchanged mild nonspecific left basilar airspace consolidation. IMPRESSION: 1. Interval advanced positioning of the previously noted catheter which projects over the level of the aortic knob. This is of uncertain exact position and is not definitely venous. Recommend correlation and repositioning as needed. 2. Unchanged mild nonspecific left basilar airspace consolidation. Dictated by: Dictated on workstation # [id number]
--- OUTSIDE RECORDS SUMMARY | 2018-02-14 20:49 | XMS REPORT | Continuity of Care Document ---
Author Author [facility] Organization [facility] Address Unknown Phone Unavailable Allergies Active Description Code Type Severity Reaction Onset Reported/Identified Relationship to Patient Clinical Status Yes No Known Drug Allergies [id number] Drug Allergy Unknown N/A 09/17/2011 Medications There is no data. Problems Date Dx Coded Attending Type Code Diagnosis Diagnosed By 09/17/2011 Ot 211.1 09/17/2011 Ot 211.3 09/17/2011 Ot 535.40 09/17/2011 Ot 562.00 09/17/2011 Ot 562.10 09/17/2011 Ot 569.3 09/17/2011 Ot 783.21 09/17/2011 Ot 787.99 07/09/2014 HUAN GRAY WELLNESS SPECIALIST Ot 599.0 07/09/2014 HUAN GRAY APRN Ot [...] culture - 02/26/16 14:04 Bacterial urine culture [id number] NRG COLONY COUNT >100,000/ML NRG FTX;REPORTABLE SENSITIVITY [...] culture - 06/16/16 15:05 Bacterial urine culture [id number] NRG COLONY COUNT >100,000/ML NRG FTX;REPORTABLE SENSITIVITY [...] Status Pt. Type Provider Facility Loc./Unit Complaint [id number] 06/16/2016 14:48:00 06/16/2016 23:59:59 CLS Outpatient BRIDGETT GUEVARA MD [facility] LAB GROSS HEMATURIA, URINARY INCONTINENCE [id number] 02/26/2016 13:53:00 02/26/2016 23:59:59 CLS Outpatient BRIDGETT GUEVARA MD [facility] LAB PYURIA [id number] 03/11/2015 12:24:00 03/11/2015 23:59:59 CLS Outpatient DIANDRA IVEY DO [facility] RAD [id number] 02/13/2015 11:09:00 02/13/2015 12:17:00 DIS Outpatient BRIDGETT GUEVARA MD [facility] REHAB [id number] 12/27/2014 07:50:00 12/27/2014 23:59:59 CLS Outpatient BRIDGETT GUEVARA MD [facility] RAD [id number] 09/09/2014 06:54:00 09/09/2014 16:20:00 DIS Outpatient ANGÉLICA LEAVITT MD [facility] CATH [id number] 08/28/2014 09:21:00 08/28/2014 23:59:59 CLS Outpatient BRIDGETT GUEVARA MD [facility] RAD [id number] 07/09/2014 12:31:00 07/09/2014 14:13:00 DIS Emergency HUAN GRAY APRN [facility] ER [id number] 02/14/2018 20:15:00 ACT Inpatient LISANDRO GARZON, NORRIS Marinelli [facility] ICU SEPTIC SHCOK, UTI, [id number] 01/05/2018 17:11:00 Document Registration [id number] 07/10/2012 16:09:00 Document Registration [id number] 09/17/2011 06:52:00 Document Registration [id number] 09/16/2011 08:26:00 Document Registration [id number] 09/08/2011 11:11:00 Document Registration [id number] 10/09/2009 13:05:00 Document Registration [id number] 03/11/2015 15:28:34 ACT Document Registration
[2018-02-14 21:37] VITALS: BP 115/87
[2018-02-14 22:00] VITALS: BP 115/66
--- NOTE | 2018-02-14 22:31 | Diagnostic Imaging Report ---
EXAMINATION: Abdominal radiographs, single supine view, 2 images. DATE: February 14, 2018. CLINICAL INDICATION: 77-year-old male, abdominal pain. COMPARISON: CT abdomen and pelvis February 14, 2018 at 1643 hrs. COMMENTS: There are gas-filled distended segments of large bowel measuring up to 8.4 cm in diameter. There are gas-filled dilated segments of small bowel which are not disproportional to colonic caliber. There is a mild amount of stool within the rectum. The upper abdomen is not entirely included in the [id number]. There is no identified pneumatosis or portal venous gas. There is no visualized free intraperitoneal air on supine assessment. IMPRESSION: 1. Dilated segments of bowel measuring up to 8.4 cm in diameter. This is an abnormal but nonspecific appearance. This appears more prominent since comparison same day CT abdomen and pelvis of February 14, 2018 at 1643 hrs. There is no identified transition point in bowel caliber on prior CT. Dictated by: Dictated on workstation # [id number]
[2018-02-14] MEDS ORDERED: NS IV 1000 ML 1,000 ML ONE (22:47)
[2018-02-14 23:00] VITALS: BP 112/59
[2018-02-14] MEDS: NOREPINEPHRINE 4 MG in NS (IVPB) 250 ML IV SCH (23:23)
[2018-02-14] MEDS: VASOPRESSIN INJECTION 20 UNIT in NS (IVPB) 100 ML IV SCH (23:24)
[2018-02-14] MEDS ORDERED: NS IV ONE (23:30)
[2018-02-14] MEDS ORDERED: NS W/KCL 20 MEQ/L 1,000 ML IV SCH (23:30)
[2018-02-14] MEDS ORDERED: ONDANSETRON 4 MG/2 ML (SDV) Z0FRAN IV PRN (23:30)
[2018-02-14] MEDS ORDERED: fentaNYL INJECTION 100 MCG/2 ML AMP IV PRN (23:30)
[2018-02-15] VITALS (26 sets, daily range): BP systolic 86–171; BP diastolic 38–86
[2018-02-15] MEDS ORDERED: ACETAMINOPHEN 325 MG TABLET ONE (00:33)
[2018-02-15] MEDS ORDERED: PANTOPRAZOLE 40 MG (PROTONIX) TAB PO ONE ×2 (00:34→00:45)
[2018-02-15] MEDS: ACETAMINOPHEN 325 MG TABLET PO PRN (00:38)
[2018-02-15] MEDS: NS IV 1000 ML 1,000 ML IV SCH ×10 (02:54→23:35)
[2018-02-15 04:05] LABS: BASOPHILS % (AUTO) 0 % (0-10); EOSINOPHILS % (AUTO) 0 % (0-10); HEMATOCRIT 37 % (40-54); HEMOGLOBIN 12.5 G/DL (13.3-17.7); LYMPHOCYTES # (AUTO) 0.4 X 10^3 (1.0-4.0); LYMPHOCYTES % (AUTO) 2 % (12-44); MEAN CORPUSCULAR HEMOGLOBIN 30 PG (25-34); MEAN CORPUSCULAR HGB CONC 34 G/DL (32-36); MEAN CORPUSCULAR VOLUME 89 FL (80-99); MONOCYTES % (AUTO) 6 % (0-12); NEUTROPHILS # (AUTO) 14.2 X 10^3 (1.8-7.8); NEUTROPHILS % (AUTO) 91 % (42-75); PLATELET COUNT 122 10^3/uL (130-400); RED BLOOD COUNT 4.17 10^6/uL (4.35-5.85); RED CELL DISTRIBUTION WIDTH 15.4 % (10.0-14.5); WHITE BLOOD COUNT 15.6 10^3/uL (4.3-11.0)
[2018-02-15 04:23] LABS: CALCIUM 8.1 MG/DL (8.5-10.1); CREATININE SERUM 1.35 MG/DL (0.60-1.30); MAGNESIUM 1.3 MG/DL (1.8-2.4); PHOSPHORUS 2.4 MG/DL (2.3-4.7); POTASSIUM 4.2 MMOL/L (3.6-5.0)
[2018-02-15] MEDS: POTASSIUM CL 10MEQ/50ML IVPB 50 ML IV SCH (04:54)
[2018-02-15] MEDS: MAGNESIUM 1 GM/100 ML IVPB 100 ML IV SCH ×6 (04:55→08:21)
[2018-02-15] MEDS: KCL 20 MEQ TAB (K-DUR) PO SCH (04:55)
--- NOTE | 2018-02-15 05:14 | Pulmonary Consultation ---
History of Present Illness History of Present Illness Date of Consultation 02/15/18 05:09 Time Seen by Provider: 05:10 Date of Admission History of Present Illness 77 yo presented to ED via EMS secondary to fever 103 per EMS. Pt was found to have severe sepsis. He was admitted to ICU with severe sepsis protocol. He does have a hx of UTIs in the past. Allergies and Home Medications Allergies Coded Allergies: No Known Drug Allergies (Unverified , 09/17/11) Home Medications Aspirin 81 Mg Tablet.dr, 81 MG PO DAILY, (Reported) Atenolol 50 Mg Tablet, 50 MG PO DAILY, (Reported) Atorvastatin Calcium 40 Mg Tablet, 40 MG PO DAILY, (Reported) Cephalexin 500 Mg Capsule, 500 MG PO TID Prescribed by: BRIDGETT GUEVARA on 02/17/181809 Cyanocobalamin (Vitamin B-12) 1,000 Mcg Tablet, 1,000 MCG PO DAILY, (Reported) Desmopressin Acetate 0.2 Mg Tablet, 0.6 MG PO HS, (Reported) TAKES 3 (0.2MG) TABLETS Duloxetine HCl 60 Mg Capsule.dr, 60 MG PO DAILY, (Reported) Furosemide 40 Mg Tablet, 40 MG PO DAILY, (Reported) Gluc Beckham/Chondro Beckham A/Vit C/Mn 1 Each Tablet, 1 TAB PO DAILY, (Reported) Levothyroxine Sodium 50 Mcg Tablet, 50 MCG PO DAILY, (Reported) TAKE ALONG WITH 200MCG TABLET Levothyroxine Sodium 200 Mcg Tablet, 200 MCG PO DAILY, (Reported) LAST FILLED #90 08-22-17 TAKE ALONG WITH 50MCG TABLET Losartan Potassium 100 Mg Tablet, 100 MG PO DAILY, (Reported) Metformin HCl 1,000 Mg Tab.er.24, 1,000 MG PO BID WITH MEALS, (Reported) Mirabegron 50 Mg Tab.er.24h, 50 MG PO DAILY, (Reported) Mv-Mn/FA/Lycopene/Lut/Hb#178 1 Each Tablet, 1 TAB PO DAILY, (Reported) [place] 3 Polyunsat Fatty Acids 1,000 Mg Cap, 1,000 MG PO DAILY, (Reported) Pantoprazole Sodium 40 Mg Tablet.dr, 40 MG PO 1800, (Reported) Potassium Chloride 8 Meq Tablet.er, 8 MEQ PO DAILY, (Reported) Pregabalin 75 Mg Capsule, 75 MG PO BID, (Reported) Saw [place]usk Fruit 450 Mg Capsule, 450 MG PO DAILY, (Reported) Solifenacin Succinate 5 Mg Tablet, 5 MG PO DAILY, (Reported) Tamsulosin HCl 0.4 Mg Cap.er.24h, 0.4 MG PO 1800, (Reported) Zinc 50 Mg Tablet, 50 MG PO DAILY, (Reported) Past Pjlyleq-Obelrj-Mmrbik Hx Patient Social History Alcohol Use: Denies Use Number of Drinks Today: AA Recreational Drug Use: No Smoking Status: Former Smoker Type Used: Cigarettes Former Smoker, Quit: Feb 22, 1994 Recent Foreign Travel: No Contact w/Someone Who Travel: No Recent Infectious Disease Expo: No Recent Hopitalizations: No Physical Abuse: No Sexual Abuse: No Mistreated: No Fear: No Immunizations Up To Date Date of Pneumonia Vaccine: Feb 04, 2013 Date of Influenza Vaccine: Feb 04, 2014 Seasonal Allergies Seasonal Allergies: No Past Medical History Surgeries: Yes (BACK, NECK, HERNIA, GALLBLADDER, APPY, ) Appendectomy, Gallbladder Respiratory: No Cardiac: Yes (CARDIAC STENTS) High Cholesterol, Hypertension Neurological: Yes (R LEG NERVE DAMAGE) Genitourinary: Yes Kidney Stones, UTI-Chronic Gastrointestinal: No Musculoskeletal: Yes Gout Endocrine: Yes Diabetes, Non-Insulin dep HEENT: Yes Cataract Cancer: No Psychosocial: No Integumentary: No Blood Disorders: No Adverse Reaction/Blood Tranf: No Review of Systems Time Seen by Provider: 12:17 Constitutional: Fever, Sweats, Weakness, Malaise ENT: Nose congestion; No: Ear pain, Ear discharge, Nose pain, Nose discharge, Mouth pain, Mouth swelling, Throat pain, Throat swelling, Other Respiratory: Cough, Dry, Shortness of breath; No: Wheezing Cardiovascular: Orthopnea, Lt Headedness Neurological: Weakness, Confusion Sepsis Event Evaluation Height, Weight, BMI Height: 5'11.00" Weight: 352lbs. 0.0oz. 159.063871ce; 49.1 BMI Method:Stated Exam Exam Vital Signs Date Time Temp Pulse Resp B/P (MAP) Pulse Ox O2 Delivery O2 Flow Rate FiO2 02/15/18 03:59 94 OxyMask 2.00 02/15/18 03:55 100.5 02/15/18 03:00 92 26 106/62 (77) 95 Nasal Cannula 2.00 02/15/18 02:40 100.9 Nasal Cannula 2.00 02/15/18 02:00 97 25 112/61 (78) 95 Nasal Cannula 4.00 02/15/18 01:54 Nasal Cannula 4.00 02/15/18 01:24 100.4 02/15/18 01:24 100.4 02/15/18 01:00 98 26 117/63 (81) 97 OxyMask 5.00 02/15/18 01:00 97 02/15/18 00:38 101.4 02/15/18 00:09 101.4 02/15/18 00:00 98 25 114/58 (76) 96 OxyMask 5.00 02/15/18 00:00 96 OxyMask 4.00 02/14/18 23:43 Nasal Cannula 5.00 02/14/18 23:28 100.8 02/14/18 23:00 96 27 112/59 (76) 94 OxyMask 5.00 02/14/18 22:00 98 Nasal Cannula 5.00 02/14/18 22:00 98 12 115/66 (82) 100 OxyMask 5.00 02/14/18 21:45 92 20 101/65 98 02/14/18 21:37 98.5 99 22 115/87 (96) 100 OxyMask 5.00 02/14/18 19:53 101.2 96 24 98/55 (69) 94 OxyMask 8.00 02/14/18 15:34 102.5 98 20 152/81 (104) 92 02/14/18 15:00 97 OxyMask 4.00 I & O 02/15/18 07:00 Intake Total 4210 ml Output Total 940 ml Balance 3270 ml Height & Weight Height: 5'11.00" Weight: 352lbs. 0.0oz. 159.359016li; 49.1 BMI Method:Stated General Appearance: Moderate Distress, Obese HEENT: PERRL/EOMI, TMs Normal, Normal ENT Inspection; No Moist Mucous Membranes Neck: Full Range of Motion, Normal Inspection, Non Tender Respiratory: Chest Non Tender, Lungs Clear, Normal Breath Sounds, No Accessory Muscle Use, No Respiratory Distress Cardiovascular: Regular Rate, Rhythm, No Edema, Normal Peripheral Pulses Capillary Refill: Less Than 3 Seconds Peripheral Pulses: 2+ Radial Pulses (R), 2+ Radial Pulses (L) Extremity: Normal Capillary Refill, Normal Inspection, Non Tender, No Calf Tenderness, No Pedal Edema Neurologic/Psychiatric: Alert, Oriented x3, Other (oriented to person and situation) Results Lab Laboratory Tests 02/14/18 15:00 02/15/18 03:50 Assessment/Plan Assessment/Plan Severe sepsis with UTI -IVF -Continue Abx -Await fischer cultures Nephrolithiasis plan for stent placement -Pain control Septic shock -Levophed -solucortef -Will give another 1 liter bolus over 2hrs Metabolic lactic acidosis 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 -Check out patient PSG hx CAD HX of aortic stenosis hx DM II ABENA CABA DO Feb 15, 2018 05:14
[2018-02-15] MEDS: NOREPINEPHRINE 4 MG in NS (IVPB) 250 ML IV SCH (05:23)
[2018-02-15] MEDS: HYDROCORTISONE 100 MG/2 ML (Solu-CORTEF) VIAL IV SCH ×3 (06:13→21:44)
--- NOTE | 2018-02-15 07:29 | Diagnostic Imaging Report ---
INDICATION: History of renal and ureteral calculus. COMPARISON: 02/14/2018. FINDINGS: Multiple supine radiographic views of the abdomen were obtained. Small bowel loops are nondistended. There is moderate gas scattered throughout the colon. No unexpected extraosseous calcifications or radiopaque foreign bodies are seen. Note is made that obscuration is partially obscured secondary to overlying soft tissue attenuation. Bony structures show age-related degenerative changes. IMPRESSION: 1. Nonobstructive small bowel gas pattern. 2. Moderate colonic air. 3. No definite extraosseous calcification, but again evaluation is obscured secondary to overlying soft tissue attenuation. Dictated by: Dictated on workstation # [id number]
--- NOTE | 2018-02-15 07:33 | Diagnostic Imaging Report ---
INDICATION: Dyspnea. COMPARISON: 02/14/2018 FINDINGS: Two frontal radiographic views of the chest were obtained and show moderate cardiomegaly. Pulmonary vasculature is within normal limits. Lungs show low inspiratory volumes, but are otherwise clear. There is no focal consolidation, large effusion, or pneumothorax. Left internal jugular central venous catheter seen with tip likely in the lower margins of the left internal jugular vein. Bony structures show no gross acute abnormalities. IMPRESSION: 1. Cardiomegaly and low inspiratory volumes. Dictated by: Dictated on workstation # [id number]
[2018-02-15] MEDS: VASOPRESSIN INJECTION 20 UNIT in NS (IVPB) 100 ML IV SCH ×3 (08:11→23:35)
[2018-02-15] MEDS ORDERED: LACTATED RINGERS 1,000 ML IV PRN (08:14)
[2018-02-15] MEDS ORDERED: RT-ALBUTEROL SULF 2.5 MG/3 ML PRE-MIX VIAL INH ONE ×2 (08:15→11:45)
--- NOTE | 2018-02-15 08:36 | History & Physical-Hospitalist ---
History of Present Illness HPI/Chief Complaint Mr. Barbour is a 77-year-old white male who apparently sometime over the weekend noticed some increased urinary frequency. On Tuesday he was noticing right lower quadrant pelvic as well as side pain rather sharp in nature and lasted for about 4 hours total. 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 He reported no further pain but did have progressive fatigue. Around 1 o'clock P.m. on the day of his admission he developed Reiger's and significant weakness. He initially refused his 's recommendation for calling the ambulance taken to the emergency room as he also apparently had a little confusion. She called his daughter nurse who was able to talk him into going to the emergency room. There he was found to have right-sided ureterolithiasis with hydronephrosis and findings compatible with severe sepsis and pyelonephritis. Shortly after arrival became hypotensive requiring IV fluids and pressor support. Currently pathology reports gram-negative rods in the urine as well as blood. After IV fluid resuscitation currently he is off of leave a fed as of around 7 o'clock this morning with mean arterial pressures in the 70s to 80s and heart rate in the 80s to 90s. He's a little fuzzy on history but oriented 2 answering questions otherwise appropriately. He denies any chest discomfort or shortness of breath just extreme fatigue. Reports she is able to move his lower extremities are currently when he didn't feel like he could yesterday due to weakness. He denies abdominal flank or pelvic pain currently. He's had no Reiger's during his hospital stay thus far. Date Seen 02/15/18 Time Seen by Provider: 08:00 Attending Physician Roel Luque MD PCP Bridgett Bach MD Referring Physician Date of Admission Feb 14, 2018 at 20:15 Home Medications & Allergies Home Medications Reviewed patient Home Medication Reconciliation performed by pharmacy medication reconciliations mosaic technician and/or nursing. Patients Allergies have been reviewed. Allergies Allergies Coded Allergies No Known Drug Allergies (Unverified09/17/11) Past Agfhfgg-Syvsem-Cxujzn Hx Past Med/Social Hx: Reviewed and Corrections made Patient Social History Alcohol Use: Denies Use Number of Drinks Today: AA Recreational Drug Use: No Smoking Status: Former Smoker Former Smoker, Quit: Feb 22, 1994 Type Used: Cigarettes Physical Abuse Screen: No Sexual Abuse: No Recent Foreign Travel: No Contact w/other who traveled: No Recent Hopitalizations: No Recent Infectious Disease Expo: No Immunizations Up To Date Date of Pneumonia Vaccine: Feb 04, 2013 Date of Influenza Vaccine: Feb 04, 2014 Seasonal Allergies Seasonal Allergies: No Past Medical History Surgeries: Appendectomy, Gallbladder Cardiac: High Cholesterol, Hypertension Aortic stenosis as I recall not critical or severe Genitourinary: Kidney Stones, UTI-Chronic Musculoskeletal: Gout Endocrine: Diabetes, Non-Insulin dep HEENT: Cataract History of Blood Disorders: No Adverse Reaction to Blood [place]: No Review of Systems Constitutional: chills, diaphoresis, fever, malaise, weakness Respiratory: no symptoms reported; No cough, No dyspnea on exertion, No hemoptysis, No orthopnea, No phlegm, No short of breath, No wheezing Cardiovascular: no symptoms reported, see HPI; No chest pain; edema (Stable trace lower extremity); No Hx of Intervention, No palpitations, No syncope, No vascular heart diseas, No other Gastrointestinal: see HPI Genitourinary: see HPI Physical Exam Physical Exam Vital Signs Vital Signs - First Documented 02/14/18 02/14/18 02/15/18 15:00 15:34 12:00 Temp 102.5 Pulse 98 Resp 20 B/P (MAP) 152/81 (104) Pulse Ox 97 O2 Delivery OxyMask O2 Flow Rate 4.00 FiO2 60 Capillary Refill : Less Than 3 Seconds Height, Weight, BMI Height: 5'11.00" Weight: 352lbs. 0.0oz. 159.254519lu; 49.1 BMI Method:Stated General Appearance: Chronically ill, Obese HEENT: PERRL/EOMI Neck: Full Range of Motion, Normal Inspection, Non Tender, Supple, Carotid Bruit Respiratory: Chest Non Tender, Lungs Clear, Normal Breath Sounds, No Accessory Muscle Use, No Respiratory Distress Cardiovascular: Regular Rate, Rhythm, No Gallop, No JVD, Normal Peripheral Pulses, Systolic Murmur (3/6 heard best at second right intercostal space and left lower sternal border unchanged from baseline) Gastrointestinal: No Organomegaly, No Pulsatile Mass, Non Tender, Soft, Other ( Bowel sounds present but hypoactive) Neurologic/Psychiatric: Alert, Normal Mood/Affect, Motor Weakness (Diffuse) Skin: Cool, Pallor Results Results/Procedures Labs Laboratory Tests 02/16/18 03:25 02/17/18 05:42 Patient resulted labs reviewed. Assessment/Plan Admission Diagnosis 1. Right ureterolithiasis with hydro-nephrosis resulting in gram-negative pyelonephritis and secondary severe sepsis. With volume resuscitation patient condition is improved and he is currently off pressor support. Urology has been consulted with plans for right ureteral stent placement later this morning. We will await culture results and continue Rocephin. We will check on urine cultures done on an outside lab reportedly Tuesday of this week. Statistically E coli most likely culprit. 2. History of coronary artery disease for acute coronary syndrome currently. 3. History of aortic stenosis. 4. History of hypertension. 5. Type II diabetes mellitus which has been diet controlled. Admission Status: Inpatient Order (span 2 midnights) Reason for Inpatient Admission: See admission diagnosis Assessment and Plan See admission diagnosis Critical Care Critically Ill Patient Clinical Quality Measures DVT/VTE Risk/Contraindication: Risk Factor Score Per Nursin RFS Level Per Nursing on Admit: 4+=Very High BRIDGETT BACH MD Feb 15, 2018 08:36
--- NOTE | 2018-02-15 08:37 | Progress Note-Pre Operative ---
Pre-Operative Progress Note H&P Reviewed The H&P was reviewed, patient examined and no changes noted. Date Seen by Provider: Feb 15, 2018 Time Seen by Provider: 08:36 Date H&P Reviewed: Feb 15, 2018 Time H&P Reviewed: 08:36 Pre-Operative Diagnosis: RT MID URETERAL STONE WITH SEPSIS AND SEPTIC SHOCK ( RESOLVING) FANG MCMILLAN MD Feb 15, 2018 8:37 am
[2018-02-15] MEDS ORDERED: fentaNYL INJECTION 100 MCG/2 ML AMP ONE (08:43)
[2018-02-15] MEDS ORDERED: LIDOCAINE PF 2% 2 ML (XYLOCAINE) VIAL ONE ×3 (08:43→11:54)
[2018-02-15] MEDS ORDERED: ONDANSETRON 4 MG/2 ML (SDV) Z0FRAN ONE (08:43)
[2018-02-15] MEDS ORDERED: proPOfol 200 MG/20 ML (DIPRIVAN) VIAL IV ONE (08:43)
[2018-02-15] MEDS ORDERED: MIDAZOLAM 2 MG/2 ML (VERSED) VIAL ONE (08:43)
[2018-02-15] MEDS ORDERED: SEVOFLURANE (ULTANE) 15 ML INHAL SOLN ONE ×2 (08:44→11:53)
[2018-02-15] MEDS ORDERED: meTOprolol TARTRATE 25 MG (LOPRESSOR) TABLET PO ONE (09:15)
[2018-02-15] MEDS ORDERED: FURO40TA4 PO (09:20)
[2018-02-15] MEDS ORDERED: LEVO50TA PO (09:20)
[2018-02-15] MEDS ORDERED: DULO60CA58 PO (09:20)
[2018-02-15] MEDS ORDERED: POTA8TAB6 PO (09:20)
[2018-02-15] MEDS ORDERED: NF-SOLIF5T PO (09:20)
[2018-02-15] MEDS ORDERED: ATEN50TA PO (09:20)
[2018-02-15] MEDS ORDERED: ATOR40TA70 PO (09:20)
[2018-02-15] MEDS ORDERED: DESM0.2T2 PO (09:20)
[2018-02-15] MEDS ORDERED: LOSA100T8 PO (09:20)
[2018-02-15] MEDS ORDERED: MIRA50TA PO (09:20)
[2018-02-15] MEDS ORDERED: PREG75CA PO (09:20)
[2018-02-15] MEDS ORDERED: PANT40TA3 PO (09:20)
[2018-02-15] MEDS ORDERED: TAMS0.4C2 PO (09:20)
[2018-02-15] MEDS ORDERED: METF-479 PO (09:20)
[2018-02-15] MEDS ORDERED: ASPI-983 PO (09:26)
--- NOTE | 2018-02-15 09:33 | CONSULTATION REPORT ---
DATE OF SERVICE: 02/15/2018 ATTENDING PHYSICIAN: Corrina and Dr. Kraus. SUMMARY: After reviewing the patient's records, x-rays, interviewing him and examining him, this is a known patient to me for years, a 77-year-old man, last seen within the past six months at the office, he was battling a urinary tract infection with two courses of antibiotic, then he became really sick, presented to the emergency room in septic shock and sepsis, started responding to IV fluids, was admitted to the ICU. A CAT scan revealed a 4 mm stone in the mid ureter on the right side with moderate hydro so it is very hardly seen by KUB. He also has what looks like an ileus. He denies previous similar episodes. He has a tiny stone in the left kidney, he is free of pain, still having fever; however, he looks much better. Blood pressure is getting better. I am ready to wean him and stop the Levophed. PHYSICAL EXAMINATION: GENERAL: The patient looks not septic at this point. ABDOMEN: Mildly distended and there is no CVA tenderness. ASSESSMENT: 1. Urosepsis with septic shock, resolving. 2. Right mid ureteral stone with moderate hydro. 3. Small left renal stone, nonobstructing. 4. Ileus. PLAN: I had a long discussion of options with the patient and his daughter. Depending on how safer it is to give him anesthesia, we will discuss this with anesthesiologist. 1. Option one is to continue present treatment and do things under better condition. If he goes septic, we will have to proceed with stent, possible percutaneous nephrostomy. 2. Proceed with placement of a stent if anatomically feasible, I would not try to do any ureteroscopy at this point or ESWL because of sepsis and friability of the ureter at this point and in the presence of infection and infected urine, which could be really life threatening to the patient. They do understand if we are unable to put a stent, we will have to send him to [facility] in [place] to put the percutaneous since our radiologist does not do that and then bring him back for followup. Later on, we will treat the stone unless he hopefully passes the stone on his own. They fully understand the plan. We will keep him n.p.o., discussed with the anesthesia dept . Job ID: [id number] DocumentID: [id number] Dictated Date: 02/15/2018 08:34:55 Policy Intern Date: 02/15/2018 09:32:15 Dictated By: FANG MCMILLAN MD MTDD
[2018-02-15] MEDS ORDERED: ETOMIDATE IV SOLN 20 MG/10 ML VIAL ONE (09:43)
[2018-02-15] MEDS ORDERED: LEVO200T6 PO (09:44)
[2018-02-15] MEDS ORDERED: ROCURONIUM 10 MG/ML 5 ML SYRINGE IV ONE (10:17)
[2018-02-15] MEDS ORDERED: NEOSTIGMINE 1 MG/ML 5 ML SYRINGE ONE (10:18)
[2018-02-15] MEDS ORDERED: RT-ALBUTEROL SULF 2.5 MG/3 ML PRE-MIX VIAL ONE (10:38)
--- NOTE | 2018-02-15 10:39 | Progress Note-Post Operative ---
Post-Operative Progess Note Surgeon (s)/Tray Delivery Aide (s) Surgeon FANG MCMILLAN MD Tray Delivery Aide: N/A Pre-Operative Diagnosis RT MID URETERAL STONE WITH SEPSIS AND SEPTIC SHOCK (RESOLVING) Post-Operative Diagnosis SAME Procedure & Operative Findings Date of Procedure 02/15/18 Procedure Performed/Findings CYSTOSCOPY WITH RT URETERAL STONE MANIPULATION AND INSERTION OF JJ STENT Anesthesia Type GENERAL Estimated Blood Loss Estimated blood loss (mL): N/A Specimens/Packing Specimens Removed N/A Packing: N/A FANG MCMILLAN MD Feb 15, 2018 10:39 am
[2018-02-15] MEDS ORDERED: LABETALOL HCL 20 MG/4 ML VIAL ONE (10:42)
--- NOTE | 2018-02-15 10:59 | Diagnostic Imaging Report ---
INDICATION: Ureteral stent placement. PROCEDURE: Fluoroscopy was provided in the OR during ureteral stent placement. 57 seconds of fluoroscopy was utilized. IMPRESSION: Fluoroscopy for ureteral stent placement. Dictated by: Dictated on workstation # [id number]
[2018-02-15] MEDS ORDERED: LABETALOL HCL 20 MG/4 ML VIAL IV ONE (11:45)
[2018-02-15] MEDS ORDERED: SAW450CA7 PO (14:21)
[2018-02-15] MEDS ORDERED: GLUC1TAB20 PO (14:21)
[2018-02-15] MEDS ORDERED: ZINC50TA31 PO (14:21)
[2018-02-15] MEDS ORDERED: MV-M1TAB37 PO (14:21)
[2018-02-15] MEDS ORDERED: CYAN10006 PO (14:21)
[2018-02-15] MEDS ORDERED: OMG1KC PO (14:21)
[2018-02-15] MEDS: cefTRIAXone FOR IV USE 1,000 MG in NS (IVPB) 50 ML IV SCH (15:33)
--- NOTE | 2018-02-15 20:24 | OPERATIVE REPORT ---
DATE OF SERVICE: 02/15/2018 PREOPERATIVE DIAGNOSIS: Right mid ureteral stone with sepsis and septic shock. POSTOPERATIVE DIAGNOSIS: Right distal ureteral stone with sepsis and septic shock. OPERATION PERFORMED: Cystoscopy with right ureteral stone manipulation and insertion of double-J stent. SURGEON: Dominic Mcmillan M.D. ANESTHESIA: General. COMPLICATIONS: None. DESCRIPTION OF PROCEDURE: Under satisfactory general anesthesia, the patient in lithotomy position, genitalia were prepped and draped in the usual sterile fashion. A cystoscope was introduced under vision. The anterior urethra was normal. The prostate was enlarged causing bladder neck obstruction and trabeculations. The bladder was inspected to reveal trabeculation, no stone or foreign body, and sluggish right ureteral efflux. Using the foroblique lens, I was able to pass a 6-Micronesian 28-cm double-J stent. With some manipulation, I was able to bypass or disimpact the stone and go all the way up to the right renal pelvis. The stent wire was removed and the stent was seen draining nicely, proximally, fluoroscopically, and distally endoscopically. Bladder was evacuated. Cystoscope was removed. A 16-Micronesian Anguiano catheter was inserted, connected to an urometer for monitoring urine output. The patient tolerated the procedure and anesthesia well and was sent to recovery room in stable condition. Job ID: [id number] DocumentID: [id number] Dictated Date: 02/15/2018 10:41:37 Park Warden Date: 02/15/2018 15:00:50 Dictated By: DOMINIC MCMILLAN MD
[2018-02-16] VITALS (16 sets, daily range): BP systolic 107–184; BP diastolic 51–88
[2018-02-16] MEDS: NOREPINEPHRINE 4 MG in NS (IVPB) 250 ML IV SCH (00:28)
[2018-02-16 03:38] LABS: BASOPHILS % (AUTO) 0 % (0-10); EOSINOPHILS % (AUTO) 0 % (0-10); HEMATOCRIT 35 % (40-54); HEMOGLOBIN 11.5 G/DL (13.3-17.7); LYMPHOCYTES # (AUTO) 0.4 X 10^3 (1.0-4.0); LYMPHOCYTES % (AUTO) 4 % (12-44); MEAN CORPUSCULAR HEMOGLOBIN 30 PG (25-34); MEAN CORPUSCULAR HGB CONC 33 G/DL (32-36); MEAN CORPUSCULAR VOLUME 91 FL (80-99); MEAN PLATELET VOLUME 11.2 FL (7.4-10.4); MONOCYTES # (AUTO) 0.4 X 10^3 (0.0-1.0); MONOCYTES % (AUTO) 4 % (0-12); NEUTROPHILS # (AUTO) 9.7 X 10^3 (1.8-7.8); NEUTROPHILS % (AUTO) 92 % (42-75); PLATELET COUNT 92 10^3/uL (130-400); RED BLOOD COUNT 3.85 10^6/uL (4.35-5.85); RED CELL DISTRIBUTION WIDTH 15.9 % (10.0-14.5); WHITE BLOOD COUNT 10.5 10^3/uL (4.3-11.0)
[2018-02-16 04:04] LABS: BUN/CREATININE RATIO 24; CALCIUM 8.1 MG/DL (8.5-10.1); CARBON DIOXIDE 17 MMOL/L (21-32); CHLORIDE 112 MMOL/L (98-107); CREATININE SERUM 0.93 MG/DL (0.60-1.30); GFR ESTIMATED > 60; GLUCOSE 219 MG/DL (70-105); PHOSPHORUS 1.9 MG/DL (2.3-4.7); POTASSIUM 3.6 MMOL/L (3.6-5.0); SODIUM 140 MMOL/L (135-145)
[2018-02-16] MEDS ORDERED: POTASSIUM PHOSPHATE INJ 30 MM in NS (IVPB) 250 ML IV ONE (04:45)
--- NOTE | 2018-02-16 05:00 | Pulmonary Progress Note ---
Subjective Time Seen by Provider: 04:57 Subjective/Events-last exam PT is doing better. Sepsis Event Evaluation Height, Weight, BMI Height: 5'11.00" Weight: 352lbs. 0.0oz. 159.342592mw; 49.1 BMI Method:Stated Focused Exam Lactate Level 02/14/18 20:30: Lactic Acid Level 2.74*H 02/15/18 03:50: Lactic Acid Level 2.43*H 02/15/18 06:10: Lactic Acid Level 2.20*H Time of Focused Exam: 20:21 Exam Exam Vital Signs Date Time Temp Pulse Resp B/P (MAP) Pulse Ox O2 Delivery O2 Flow Rate FiO2 02/16/18 04:00 65 17 115/61 (79) 97 Nasal Cannula 2.00 02/16/18 03:49 96.9 Nasal Cannula 2.00 02/16/18 03:41 Nasal Cannula 2.00 02/16/18 03:00 73 12 111/55 (73) 96 NIV Bilevel 40.00 02/16/18 02:37 65 18 95 40.00 02/16/18 02:00 66 13 115/54 (74) 96 NIV Bilevel 40.00 02/16/18 01:00 71 15 108/53 (71) 96 NIV Bilevel 40.00 02/16/18 01:00 70 02/16/18 00:14 66 11 114/54 (74) 96 NIV Bilevel 40.00 02/16/18 00:04 70 14 95 40.00 02/16/18 00:00 94 NIV Bilevel 40 02/16/18 00:00 97.3 02/15/18 23:00 71 14 108/51 (70) 97 NIV Bilevel 40.00 02/15/18 22:00 64 13 103/52 (69) 97 NIV Bilevel 40.00 02/15/18 21:51 NIV Bilevel 40.00 02/15/18 21:00 77 24 105/57 (73) 96 Nasal Cannula 3.00 02/15/18 20:00 97.6 02/15/18 20:00 94 Nasal Cannula 3.00 02/15/18 20:00 82 8 107/61 (76) 94 Nasal Cannula 3.00 02/15/18 19:30 Nasal Cannula 3.00 02/15/18 19:04 94 Nasal Cannula 3.00 02/15/18 19:00 75 16 111/52 (71) 96 Nasal Cannula 3.00 02/15/18 19:00 82 18 18:00 70 17 107/59 (75) 99 NIV Bilevel 50.00 02/15/18 17:00 71 12 107/61 (76) 98 NIV Bilevel 50.00 02/15/18 16:53 NIV Bilevel 50.00 02/15/18 16:45 67 20 100 60.00 02/15/18 16:00 100 NIV Bilevel 60 02/15/18 16:00 72 12 102/59 (73) 95 NIV Bilevel 60.00 02/15/18 15:20 97.8 02/15/18 15:00 66 15 95/54 (68) 100 NIV Bilevel 60.00 02/15/18 14:52 68 22 100 60.00 02/15/18 14:00 66 13 100/58 (72) 100 NIV Bilevel 60.00 02/15/18 13:00 70 13 106/51 (69) 97 NIV Bilevel 60.00 02/15/18 13:00 68 02/15/18 13:00 96.9 02/15/18 12:00 94 NIV Bilevel 60 02/15/18 12:00 71 14 94/46 (62) 97 Nasal Cannula 2.00 02/15/18 11:45 77 15 87/50 (62) 96 Nasal Cannula 2.00 02/15/18 11:45 72 16 97 60.00 02/15/18 11:02 80.00 02/15/18 10:55 87 16 100 100.00 02/15/18 09:00 92 11 105/64 (78) 94 Nasal Cannula 2.00 02/15/18 08:54 92 Nasal Cannula 2.00 02/15/18 08:00 98.9 93 22 100/65 (77) 90 Nasal Cannula 2.00 02/15/18 08:00 90 Nasal Cannula 2.00 02/15/18 07:00 91 02/15/18 07:00 90 30 92/59 (70) 95 Nasal Cannula 2.00 02/15/18 06:00 88 24 107/60 (76) 95 Nasal Cannula 2.00 02/15/18 05:09 100.0 02/15/18 05:00 88 23 98/64 (75) 93 Nasal Cannula 2.00 I & O 02/16/18 07:00 Intake Total 3710 ml Output Total 3125 ml Balance 585 ml Height & Weight Height: 5'11.00" Weight: 352lbs. 0.0oz. 159.424463qy; 49.1 BMI Method:Stated General Appearance: No Apparent Distress, Chronically ill, Obese HEENT: PERRL/EOMI Neck: Full Range of Motion, Normal Inspection, Non Tender, Supple, Carotid Bruit Respiratory: Chest Non Tender, Lungs Clear, Normal Breath Sounds, No Accessory Muscle Use, No Respiratory Distress Cardiovascular: Regular Rate, Rhythm, No Gallop, No JVD, Normal Peripheral Pulses, Systolic Murmur (3/6 heard best at second right intercostal space and left lower sternal border unchanged from baseline) Capillary Refill: Less Than 3 Seconds Peripheral Pulses: 2+ Radial Pulses (R), 2+ Radial Pulses (L) Extremity: Normal Capillary Refill, Normal Inspection, Non Tender, No Calf Tenderness, No Pedal Edema Neurologic/Psychiatric: Alert, Normal Mood/Affect, Motor Weakness (Diffuse) Skin: Cool, Pallor Results Lab Laboratory Tests 02/14/18 15:00 02/15/18 03:50 02/16/18 03:25 Assessment/Plan Assessment/Plan Severe sepsis with UTI -IVF -Continue Abx -Await fischer cultures Nephrolithiasis s/p stent placement -Pain control Septic shock -Levophed -solucortef -Will give another 1 liter bolus over 2hrs Metabolic lactic acidosis Bacteremia -with GNR -Check Echocardiogram -Continue Abx 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 -Check out patient PSG hx CAD HX of aortic stenosis hx DM II ABENA CABA DO Feb 16, 2018 05:00
[2018-02-16] MEDS: NS IV 1000 ML 1,000 ML IV SCH ×3 (05:01→18:44)
[2018-02-16] MEDS: MAGNESIUM 1 GM/100 ML IVPB 100 ML IV SCH (06:08)
[2018-02-16] MEDS: POTASSIUM CL 10MEQ/50ML IVPB 50 ML IV SCH (06:08)
[2018-02-16] MEDS: KCL 20 MEQ TAB (K-DUR) PO SCH (06:08)
[2018-02-16] MEDS: HYDROCORTISONE 100 MG/2 ML (Solu-CORTEF) VIAL IV SCH ×3 (06:23→21:08)
[2018-02-16] MEDS: inSUlin ASPART (NovoLOG) 1 UNIT/0.01 ML (CHARGE PER UNIT) SC SCH ×4 (06:23→21:08)
[2018-02-16] MEDS: PANTOPRAZOLE 40 MG (PROTONIX) TAB PO SCH (06:26)
[2018-02-16] MEDS ORDERED: LEVOTHYROXINE 100 MCG (LEVOTHROID) TAB PO SCH (08:02)
[2018-02-16] MEDS: VASOPRESSIN INJECTION 20 UNIT in NS (IVPB) 100 ML IV SCH (09:00)
--- NOTE | 2018-02-16 09:47 | Physical Therapy Evaluation ---
PT Evaluation-General Medical Diagnosis Admission Date Feb 14, 2018 at 20:15 Medical Diagnosis: septic shock/UTI Onset Date: Feb 14, 2018 Therapy Diagnosis Therapy Diagnosis: generalized weakness/debility Height/Weight Height (Feet): 5 Height (Inches): 11.00 Weight (Pounds): 352 Weight (Ounces): 0.0 Precautions Precautions/Isolations: Fall Prevention, Standard Precautions Weight Bear Status Right Lower Extremity: Right Full Weight Bearing Left Lower Extremity: Left Full Weight Bearing Referral Physician: Isreal Reason for Referral: Evaluation/Treatment Medical History Pertinent Medical History: CAD, DM, HTN Current History EMS secondary to confusion/AMS, fever, failed outpatient antibiotics for UTI Reviewed History: Yes Social History Home: Multilevel Current Living Status: Spouse stair chair lift, power chair, lift chair Prior/Core FIM Prior Level of Function Functional [place] Measure 0=Not Assessed/NA 4=Minimal Assistance 1=Total Assistance 5=Supervision or Setup 2=Maximal Assistance 6=Modified [place] 3=Moderate Assistance 7=Complete [place] Bed Mobility: 5 Transfers (B,C,W/C) (FIM): 5 Gait: 1 (per patient, ambulates maximum of 20' PLOF) Wheelchair Mobility: 6 power w/c, lift chair, stair chair lift PT Evaluation-Current Subjective Patient agrees to PT. Pain Numeric Pain Scale: 0-No Pain Location: No Pain Reported Objective Patient Orientation: Normal For Age Problem Solving: Fair Attachments: Oxygen, Anguiano Catheter, IV ROM/Strength ROM Lower Extremities bilateral LE WNL Strength Lower Extremities 3+/5 grossly bilaterally Integumentary/Posture Integumentary refer to nursing notes Bowel Incontinence: No Bladder Incontinence: Anguiano Cath Posture WFL Neuromuscular (Tone, Coordination, Reflexes) diminished coordination due to inactivity PLOF Sensory Vision: Functional Hearing: Functional Sensation Right Lower Extremit: Impaired Sensation Left Lower Extremity: Impaired Transfers Functional [place] Measure 0=Not Assessed/NA 4=Minimal Assistance 1=Total Assistance 5=Supervision or Setup 2=Maximal Assistance 6=Modified [place] 3=Moderate Assistance 7=Complete [place] Transfers (B, C, W/C) (FIM): 4 Scootin Rollin Supine to/from Sit: 4 Sit to/from Stand: 5 Gait Mode of Locomotion: Both Anticipated Mode of Locomotion: Both Gait (FIM): 1 Distance (FIM): 1=up to 49 ft Distance: 5' Gait Level of Assist: 5 Gait Persons Needed: 1 Gait Assistive Device: FWW Comments/Gait Description slow, steady Balance Sitting Static: Fair Sitting Dynamic: Fair Standing Static: Fair Standing Dynamic: Fair Assessment/Needs 77 y.o. male, will benefit from skilled PT to address functional strength and mobility to improve current LOF and to safely return to home or care facility at maximum LOF. Rehab Potential: Fair Post Rehab Potential-Barriers: compliance PT Correction Goals Correction Goals PT Correction Goals Time Frame: Mar 04, 2018 Transfers (B,C,W/C) (FIM): 5 Gait (FIM): 1 Gait distance (FIM): 1=up to 49 ft Distance: 20' Gait Level of Assist: 5 Gait Assistive Device: FWW PT Plan Problem List Problem List: Activity Tolerance, Functional Strength, Safety, Balance, Gait, Transfer, Bed Mobility Treatment/Plan Treatment Plan: Continue Plan of Care Treatment Plan: Bed Mobility, Education, Functional Activity Glenn, Functional Strength, Group Therapy, Gait, Safety, Therapeutic Exercise, Transfers Treatment Duration: Mar 04, 2018 Frequency: 6 times per week Estimated Hrs Per Day: .5 hour per day Patient and/or Family Agrees t: Yes Discharge Recommendations Therapy D/C Recommendations: Home w/ Family Support, Physical Therapy Home Care , Snf Placement, Longterm (TCU/NH) Time/GCodes Time In: 825 Time Out: 856 Total Billed Treatment Time: 31 Total Billed Treatment 1 visit EVHighC 31 min G Codes Necessary: CLAY Carroll PT Feb 16, 2018 09:47
--- NOTE | 2018-02-16 10:42 | Progress Note-Urology ---
Progress Note-Urology Progress Notes/Assess & Plan Progress/Assessment & Plan DOING, LOOKING AND FEELING MUCH BETTER. AFEBRILE, VSS. ALL LAB VALUES IMPROVED. Final Diagnosis UROSEPSIS AND RT URETERAL STONE FANG MCMILLAN MD Feb 16, 2018 10:42
--- NOTE | 2018-02-16 10:49 | Diagnostic Imaging Report ---
INDICATION: Dyspnea EXAM: Frontal chest obtained at 4:30 a.m. COMPARISON: 02/15/2018 FINDINGS: There is cardiomegaly. There is very poor inspiration with some bibasilar atelectasis. There is no pneumothorax or gross pleural fluid. IMPRESSION: Cardiomegaly with very poor inspiration and mild bibasilar atelectasis. No new finding compared to yesterday. Left IJ catheter is unchanged with the tip overlying the left innominate vein. Dictated by: Dictated on workstation # [id number]
--- NOTE | 2018-02-16 13:40 | Anesthesia-General Post-Op ---
General Patient Condition Mental Status/LOC: Same as Preop Cardiovascular: Satisfactory Nausea/Vomiting: Absent Respiratory: Satisfactory Pain: Controlled Complications: Absent Post Op Complications Complications None Follow Up Care/Instructions Patient Instructions None needed. Anesthesia/Patient Condition Patient Condition Patient is doing well, no complaints, stable vital signs, no apparent adverse anesthesia problems. No complications reported per nursing. SPENCER RETANA CRNA Feb 16, 2018 13:40
[2018-02-16] MEDS: cefTRIAXone FOR IV USE 1,000 MG in NS (IVPB) 50 ML IV SCH (14:08)
[2018-02-16] MEDS: ATENOLOL 50 MG (TENORMIN) TAB PO SCH (16:51)
[2018-02-16] MEDS: LOSARTAN 100 MG (COZAAR) TABLET PO SCH (16:51)
[2018-02-17] VITALS (7 sets, daily range): BP systolic 133–195; BP diastolic 69–104
[2018-02-17] MEDS: NS IV 1000 ML 1,000 ML IV SCH ×2 (00:50→07:38)
[2018-02-17 05:52] LABS: BASOPHILS % (AUTO) 0 % (0-10); EOSINOPHILS % (AUTO) 0 % (0-10); HEMATOCRIT 36 % (40-54); LYMPHOCYTES # (AUTO) 0.5 X 10^3 (1.0-4.0); LYMPHOCYTES % (AUTO) 6 % (12-44); MEAN CORPUSCULAR HEMOGLOBIN 30 PG (25-34); MEAN CORPUSCULAR HGB CONC 34 G/DL (32-36); MEAN CORPUSCULAR VOLUME 89 FL (80-99); MEAN PLATELET VOLUME 11.8 FL (7.4-10.4); MONOCYTES # (AUTO) 0.6 X 10^3 (0.0-1.0); MONOCYTES % (AUTO) 6 % (0-12); NEUTROPHILS # (AUTO) 8.2 X 10^3 (1.8-7.8); NEUTROPHILS % (AUTO) 88 % (42-75); PLATELET COUNT 86 10^3/uL (130-400); RED BLOOD COUNT 3.97 10^6/uL (4.35-5.85); RED CELL DISTRIBUTION WIDTH 15.6 % (10.0-14.5); WHITE BLOOD COUNT 9.3 10^3/uL (4.3-11.0)
[2018-02-17] MEDS: LEVOTHYROXINE 100 MCG (LEVOTHROID) TAB PO SCH (06:08)
[2018-02-17] MEDS: PANTOPRAZOLE 40 MG (PROTONIX) TAB PO SCH (06:08)
[2018-02-17] MEDS: HYDROCORTISONE 100 MG/2 ML (Solu-CORTEF) VIAL IV SCH (06:08)
[2018-02-17] MEDS: inSUlin ASPART (NovoLOG) 1 UNIT/0.01 ML (CHARGE PER UNIT) SC SCH ×4 (06:11→20:35)
[2018-02-17 06:19] LABS: BUN/CREATININE RATIO 28; CALCIUM 8.5 MG/DL (8.5-10.1); CARBON DIOXIDE 21 MMOL/L (21-32); CHLORIDE 112 MMOL/L (98-107); CREATININE SERUM 0.83 MG/DL (0.60-1.30); GFR ESTIMATED > 60; GLUCOSE 214 MG/DL (70-105); POTASSIUM 4.3 MMOL/L (3.6-5.0); SODIUM 139 MMOL/L (135-145)
[2018-02-17] MEDS: ATENOLOL 50 MG (TENORMIN) TAB PO SCH (08:47)
[2018-02-17] MEDS: LOSARTAN 100 MG (COZAAR) TABLET PO SCH (08:47)
[2018-02-17] MEDS ORDERED: LOSARTAN 100 MG (COZAAR) TABLET PO SCH (09:00)
[2018-02-17] MEDS ORDERED: ATENOLOL 50 MG (TENORMIN) TAB PO SCH (09:00)
--- NOTE | 2018-02-17 09:07 | Pulmonary Progress Note ---
Subjective Time Seen by Provider: 12:30 Subjective/Events-last exam no complications noted. Sepsis Event Evaluation Height, Weight, BMI Height: 5'11.00" Weight: 349lbs. 8.0oz. 158.397637re; 49.1 BMI Method:Stated Focused Exam Lactate Level 02/15/18 03:50: Lactic Acid Level 2.43*H 02/15/18 06:10: Lactic Acid Level 2.20*H 02/16/18 04:55: Lactic Acid Level 1.31 Time of Focused Exam: 20:21 Exam Exam Vital Signs Date Time Temp Pulse Resp B/P (MAP) Pulse Ox O2 Delivery O2 Flow Rate FiO2 02/17/18 08:00 98.2 67 22 181/86 (117) 96 Room Air 02/17/18 04:09 97.1 58 18 181/86 (117) 96 Room Air 02/17/18 00:43 97.3 73 18 161/74 (103) 94 Room Air 02/16/18 20:24 97.9 73 18 157/75 (102) Room Air 02/16/18 20:00 Nasal Cannula 2.00 02/16/18 19:29 97 Nasal Cannula 2.00 02/16/18 16:15 98.4 76 20 170/88 (115) 98 Room Air 02/16/18 16:00 184/88 (120) 02/16/18 12:00 98.4 89 20 179/83 (115) 97 Nasal Cannula 2.00 02/16/18 10:00 97.8 73 18 160/76 (104) 96 Nasal Cannula 2.00 02/16/18 09:44 96 Nasal Cannula 2.00 I & O 02/17/18 07:00 Intake Total 4970 ml Output Total 2150 ml Balance 2820 ml Height & Weight Height: 5'11.00" Weight: 349lbs. 8.0oz. 158.959982qx; 49.1 BMI Method:Stated General Appearance: Moderate Distress, Obese HEENT: PERRL/EOMI, TMs Normal, Normal ENT Inspection; No Moist Mucous Membranes Neck: Full Range of Motion, Normal Inspection, Non Tender Respiratory: Chest Non Tender, Lungs Clear, Normal Breath Sounds, No Accessory Muscle Use, No Respiratory Distress Cardiovascular: Regular Rate, Rhythm, No Edema, Normal Peripheral Pulses Capillary Refill: Less Than 3 Seconds Peripheral Pulses: 2+ Radial Pulses (R), 2+ Radial Pulses (L) Extremity: Normal Capillary Refill, Normal Inspection, Non Tender, No Calf Tenderness, No Pedal Edema Neurologic/Psychiatric: Alert, Oriented x3, Other (oriented to person and situation) Skin: Cool, Pallor Results Lab Laboratory Tests 02/16/18 03:25 02/17/18 05:42 Assessment/Plan Assessment/Plan Severe sepsis with UTI -Continue Abx -Await fischer cultures Nephrolithiasis s/p stent placement -Pain control Septic shock - improved -solucortef - D/C Metabolic lactic acidosis Bacteremia -with GNR -Continue Abx 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 -Check out patient PSG hx CAD HX of aortic stenosis hx DM II ABENA CABA DO Feb 17, 2018 09:07
--- NOTE | 2018-02-17 09:27 | Progress Note-Urology ---
Progress Note-Urology Progress Notes/Assess & Plan Progress/Assessment & Plan CONTINUES WELL OBJECTIVELY AND SUBJECTIVELY. LABS STABLE. URINE CLEAR. OK TO DISMISS CAMPOS. HAS F/U IN OFFICE NEXT WEEK Final Diagnosis RT URETERAL STONE WITH UROSEPSIS FANG MCMILLAN MD Feb 17, 2018 09:27
--- NOTE | 2018-02-17 10:35 | Physical Therapy Daily Note ---
PT Daily Note-Current Subjective Pt reports he did not sleep last night and is tired. He does agree to get up to the chair, reports he hopes it will help him to rest better later. Reports he hopes to go home tomorrow. Pain Numeric Pain Scale: 0-No Pain Location: No Pain Reported Mental Status Patient Orientation: Person, Place, Time, Situation Transfers Functional [place] Measure 0=Not Assessed/NA 4=Minimal Assistance 1=Total Assistance 5=Supervision or Setup 2=Maximal Assistance 6=Modified [place] 3=Moderate Assistance 7=Complete IndependenceIRFPAI Quality Coding Scale 6 Independent with activity with or without an assistive device 5 Patient requires set up or clean up by helper. Patient completes activity by themselves 4 Supervision or touching assist (CGA). [place] provide cues , steadying assist 3 The helper provides less than half the effort to complete the activity 2 The helper provides more than half the effort to complete the activity 1 Dependent. The helper does all the effort to complete an activity 7 Patient refused to complete or attempt activity 9 The patient did not perform the activity before the current illness or injury 88 Not attempted due to Medical conditions or safety concerns Transfers (B, C, W/C) (FIM): 4 Supine to/from Sit: 4 (min assist to sit up on edge of bed) Sit to/from Stand: 4 (CGA and bed elevated slightly) Pt took 5-6 steps to transfer to the chair. Up in chair post treatment with legs elevated and needs met. Weight Bearing Right Lower Extremity: Right Full Weight Bearing Left Lower Extremity: Left Full Weight Bearing Assessment Current Status: Good Progress Tolerated well. Pleasant and cooperative. PT Jail Goals Prosecuting Attorney Goals PT Jail Goals Time Frame: Mar 04, 2018 Transfers (B,C,W/C) (FIM): 5 Gait (FIM): 1 Gait distance (FIM): 1=up to 49 ft Distance: 20' Gait Level of Assist: 5 Gait Assistive Device: FWW PT Plan Problem List Problem List: Activity Tolerance, Functional Strength, Safety Treatment/Plan Treatment Plan: Continue Plan of Care Treatment Plan: Bed Mobility, Education, Functional Activity Glenn, Functional Strength, Group Therapy, Gait, Safety, Therapeutic Exercise, Transfers Treatment Duration: Mar 04, 2018 Frequency: 6 times per week Estimated Hrs Per Day: .5 hour per day Patient and/or Family Agrees t: Yes Safety Risks/Education Patient Education: Safety Issues Teaching Recipient: Patient Teaching Methods: Discussion Response to Teaching: Reinforcement Needed Discharge Recommendations Plan Pt plans to sit up in the chair a few hours. Time/GCodes Time In: 1010 Time Out: 1023 Total Billed Treatment Time: 13 Total Billed Treatment visit fa 13 CIRO JIMENEZ PT Feb 17, 2018 10:35
[2018-02-17 12:51] LABS: ABG BASE EXCESS -5.1 MMOL/L (-2.5-2.5); ABG OXYGEN SATURATION 94 % (94-100); ABG PCO2 35 MMHG (35-45); ABG PH 7.36 (7.37-7.43); ABG PO2 60 MMHG (79-93); ABG TCO2 20.8 MMOL/L (21.0-31.0)
[2018-02-17 12:52] LABS: ALLENS TEST POSITIVE; PATIENT TEMP 96.2; VENTILATOR NO
--- NOTE | 2018-02-17 12:54 | Progress Note-Hospitalist ---
Subjective HPI/CC On Admission Date Seen by Provider: Feb 17, 2018 Time Seen by Provider: 12:00 Mr. Barbour is a 77-year-old white male who apparently sometime over the weekend noticed some increased urinary frequency. On Tuesday he was noticing right lower quadrant pelvic as well as side pain rather sharp in nature and lasted for about 4 hours total. He called his urologist's office and did bring a urine specimen to a local lab for presumably a UA with MOTORMAN/WOMAN. He reported no further pain but did have progressive fatigue. Around 1 o'clock P.m. on the day of his admission he developed Reiger's and significant weakness. He initially refused his 's recommendation for calling the ambulance taken to the emergency room as he also apparently had a little confusion. She called his daughter nurse who was able to talk him into going to the emergency room. There he was found to have right-sided ureterolithiasis with hydronephrosis and findings compatible with severe sepsis and pyelonephritis. Shortly after arrival became hypotensive requiring IV fluids and pressor support. Currently pathology reports gram-negative rods in the urine as well as blood. After IV fluid resuscitation currently he is off of leave a fed as of around 7 o'clock this morning with mean arterial pressures in the 70s to 80s and heart rate in the 80s to 90s. He's a little fuzzy on history but oriented 2 answering questions otherwise appropriately. He denies any chest discomfort or shortness of breath just extreme fatigue. Reports she is able to move his lower extremities are currently when he didn't feel like he could yesterday due to weakness. He denies abdominal flank or pelvic pain currently. He's had no Reiger's during his hospital stay thus far. Subjective/Events-last exam Patient reports he's feeling better he would like to go home in the morning. He had his first physical therapy session where he did require standby assistance of one and oriented about 6 steps. At baseline he has to use a walker but is independent. He denies any abdominal flank or side pain. Focused Exam Lactate Level Time of Focused Exam: 20:21 Objective Exam Vital Signs Vital Signs Date Time Temp Pulse Resp B/P (MAP) Pulse Ox O2 Delivery O2 Flow Rate FiO2 02/19/18 13:35 71 18 132/64 94 Room Air 1.00 02/19/18 12:17 99.3 02/16/18 00:00 40 Capillary Refill : Less Than 3 Seconds General Appearance: No Apparent Distress, Chronically ill, Obese Respiratory: Chest Non Tender, Lungs Clear, Normal Breath Sounds, No Accessory Muscle Use, No Respiratory Distress Cardiovascular: Regular Rate, Rhythm, No Edema, No Gallop, No JVD, Normal Peripheral Pulses, Systolic Murmur (3/6 heard throughout the precordium but best over the aortic outflow tract unchanged) Extremity: Normal Capillary Refill, No Calf Tenderness, Other (1-2+ lower extremity edema and 1+ upper extremity edema) Results/Procedures Lab Patient resulted labs reviewed. Assessment/Plan Assessment and Plan Assess & Plan/Chief Complaint 1. Right ureterolithiasis with hydro-nephrosis resulting in odious mirabilis severe sepsis with positive blood cultures. Post right ureteral stenting no evidence for ongoing obstruction with resolution of severe sepsis. Discussed the fact that I would like to see the patient had at least 5 days of Rocephin. An afternoon discharge tomorrow would not be out of the question bed discussed with the patient he needed to be stable with independent ambulation using his walker. Cystoscopy was compatible with evidence for out without obstruction as well due to significant prostatism. We discussed the fact that I was not comfortable giving him bladder relaxants but as his blood pressure is elevated we will replace Flomax with Cardura getting milligram now and then milligram at at bedtime nightly. He is warned about orthostatic hypotension. He didn't get much sleep last night and so will leave his catheter in this evening and remove it in the morning. He was warned about urinary outlet obstruction. He does have an appointment with . it will next week and we will plan on setting him up for home health care for physical therapy 3. History of aortic stenosis. 4. History of hypertension patient is been consistently above 160 systolic compatible stage II hypertension levels with the addition of Cardura we will also give him 40 mg of Lasix IV 1. 5. Type II diabetes mellitus which has been diet controlled. Critical Care Critical Care: Critically Ill Patient Clinical Quality Measures DVT/VTE Risk/Contraindication: Risk Factor Score Per Nursin RFS Level Per Nursing on Admit: 4+=Very High BRIDGETT GUEVARA MD Feb 17, 2018 12:54
[2018-02-17] MEDS ORDERED: FUROSEMIDE 40 MG (LASIX) TAB PO NR (13:00)
[2018-02-17] MEDS: doxAzosin 2 MG (CARDURA) TAB PO SCH ×2 (14:03→20:41)
[2018-02-17] MEDS: cefTRIAXone FOR IV USE 1,000 MG in NS (IVPB) 50 ML IV SCH (14:16)
[2018-02-17] MEDS: RT-ALBUTEROL/IPRATROPIUM 3 ML (DUONEB) VIAL INH SCH ×2 (14:51→19:43)
--- NOTE | 2018-02-17 18:08 | D/C HH Face to Face Order ---
BRIDGETT GUEVARA MD 02/17/18 6:08pm: D/C Face to Face Orders Instructions for Patient Discharge Diet for Home: ADA Diet Patient Data-Allergies,Ht & Wt Patient Allergies: Coded Allergies: No Known Drug Allergies (Unverified , 09/17/11) Height (Feet): 5 Height (Inches): 11.00 Weight (Pounds): 349 Weight (Ounces): 8.0 Home Health Need/Face to Face Clinical Findings: Generalized weakness and fatigue, Unsteady gait I have seen Pt [id number]: Yes Discharged To: Home Diagnosis/Conditions: urosepsis, R ureterolethiasis, DM 2, Aortic stenosis,HTN and deconditioning Patient is Homebound due to: Sanaz fall risk due to instabilty, Muscle weakness Homebound Status Due to the above stated illness, injury or surgical procedure (medical condition or diagnosis) and associated clinical findings, the patient is homebound because of his/her inability to leave home except with aid of a supportive device and/or person AND leaving the home requires a considerable and taxing effort or is medically contraindicated. Pt req the following assistanc: Walker Home Health Nursing Orders Home Health Services Order: Liquor Department Manager-Evaluate & Treat, Physical Therapy-Evaluate & Treat Home Health Infusion Therapy Line Start Date: Feb 14, 2018 Line Start Time: 1500 Line Type: Saline Lock Site Location: Arm-Upper Certify Stmt I certify that this patient is under my care and that I, a nurse practitioner or a physician; a bankruptcy legal assistant working with me, had a face to face encounter that - meets the physician face to face encounter requirements with this patient as dated. JAMI SEXTON MD 02/19/18 12:32pm: D/C Face to Face Orders Instructions for Patient Patient Instructions/FollowUp: Monitor for sepsis, constipation, physical therapy Physician to follow Patient: Isreal Discharge Diet for Home: ADA Diet Home Health Need/Face to Face Date of Face to Face: Feb 19, 2018 Clinical Findings: Generalized weakness and fatigue, Muscle weakness, Shortness of breath, Unsteady gait I have seen Pt [id number]: Yes Discharged To: Home Diagnosis/Conditions: Sepsis Neuropathy Morbid obesity Weakness Shortness of breath Patient is Homebound due to: Sanaz fall risk due to instabilty, Muscle weakness , Shortness of breath/distress Pt req the following assistanc: Walker Home Health Nursing Orders Home Health Services Order: Nursing Services, Physical Therapy-Evaluate & Treat Home Health Lab Orders Labs (specify type/freq): CBC chem 7 weekly Therapy Orders Therapy Orders: PT to assess for OT Therapy Specific Orders: Teach enviro modifications/safety, Gait training, Increase strength/endurance BRIDGETT GUEVARA MD Feb 17, 2018 6:08 pm JAMI SEXTON MD Feb 19, 2018 12:32 pm
[2018-02-17] MEDS ORDERED: CEPH500C PO (18:10)
[2018-02-18 00:08] VITALS: BP 135/65
[2018-02-18 03:43] VITALS: BP 138/69
[2018-02-18 06:02] LABS: BASOPHILS % (AUTO) 0 % (0-10); EOSINOPHILS # (AUTO) 0.1 10^3/uL (0.0-0.3); EOSINOPHILS % (AUTO) 1 % (0-10); HEMATOCRIT 38 % (40-54); HEMOGLOBIN 12.7 G/DL (13.3-17.7); LYMPHOCYTES % (AUTO) 11 % (12-44); MEAN CORPUSCULAR HEMOGLOBIN 29 PG (25-34); MEAN CORPUSCULAR HGB CONC 33 G/DL (32-36); MEAN CORPUSCULAR VOLUME 89 FL (80-99); MONOCYTES # (AUTO) 0.8 X 10^3 (0.0-1.0); MONOCYTES % (AUTO) 9 % (0-12); NEUTROPHILS # (AUTO) 7.3 X 10^3 (1.8-7.8); NEUTROPHILS % (AUTO) 80 % (42-75); PLATELET COUNT 94 10^3/uL (130-400); RED BLOOD COUNT 4.32 10^6/uL (4.35-5.85); RED CELL DISTRIBUTION WIDTH 16.2 % (10.0-14.5); WHITE BLOOD COUNT 9.2 10^3/uL (4.3-11.0)
[2018-02-18 06:20] LABS: BUN/CREATININE RATIO 23; CALCIUM 8.9 MG/DL (8.5-10.1); CARBON DIOXIDE 19 MMOL/L (21-32); CHLORIDE 111 MMOL/L (98-107); CREATININE SERUM 0.94 MG/DL (0.60-1.30); GFR ESTIMATED > 60; GLUCOSE 171 MG/DL (70-105); POTASSIUM 3.6 MMOL/L (3.6-5.0); SODIUM 142 MMOL/L (135-145)
[2018-02-18] MEDS: inSUlin ASPART (NovoLOG) 1 UNIT/0.01 ML (CHARGE PER UNIT) SC SCH ×4 (06:30→20:51)
--- NOTE | 2018-02-18 07:23 | Pulmonary Progress Note ---
Subjective Time Seen by Provider: 12:34 Sepsis Event Evaluation Height, Weight, BMI Height: 5'11.00" Weight: 349lbs. 8.0oz. 158.664452po; 49.1 BMI Method:Stated Focused Exam Lactate Level 02/16/18 04:55: Lactic Acid Level 1.31 Time of Focused Exam: 20:21 Exam Exam Vital Signs Date Time Temp Pulse Resp B/P (MAP) Pulse Ox O2 Delivery O2 Flow Rate FiO2 02/18/18 03:43 98.8 65 24 138/69 (92) 91 Room Air 02/18/18 02:30 18 40.00 02/18/18 00:08 98.2 64 20 135/65 (88) 97 Room Air 02/17/18 23:00 87 26 90 40.00 02/17/18 20:00 Nasal Cannula 2.00 02/17/18 20:00 98.6 74 20 146/69 (94) 91 Room Air 02/17/18 19:43 97 Room Air 02/17/18 16:15 96.8 65 20 133/73 (93) 90 Room Air 02/17/18 14:51 91 Room Air 02/17/18 13:15 86 195/104 (134) 02/17/18 12:00 98.2 51 20 166/87 (113) 96 Room Air 02/17/18 09:06 94 Nasal Cannula 2.00 02/17/18 08:00 94 Nasal Cannula 2.00 02/17/18 08:00 98.2 67 22 181/86 (117) 96 Room Air I & O 02/18/18 07:00 Intake Total 8780 ml Output Total 1950 ml Balance 6830 ml Height & Weight Height: 5'00" Weight: 349lbs. 8.0oz. 158.645040rb; 49.1 BMI Method:Stated General Appearance: No Apparent Distress, Chronically ill, Obese HEENT: PERRL/EOMI Neck: Full Range of Motion, Normal Inspection, Non Tender, Supple, Carotid Bruit Respiratory: Chest Non Tender, Lungs Clear, Normal Breath Sounds, No Accessory Muscle Use, No Respiratory Distress Cardiovascular: Regular Rate, Rhythm, No Edema, No Gallop, No JVD, Normal Peripheral Pulses, Systolic Murmur (3/6 heard throughout the precordium but best over the aortic outflow tract unchanged) Capillary Refill: Less Than 3 Seconds Peripheral Pulses: 2+ Radial Pulses (R), 2+ Radial Pulses (L) Extremity: Normal Capillary Refill, No Calf Tenderness, Other (1-2+ lower extremity edema and 1+ upper extremity edema) Neurologic/Psychiatric: Alert, Normal Mood/Affect, Motor Weakness (Diffuse) Skin: Cool, Pallor Results Lab Laboratory Tests 02/17/18 05:42 02/18/18 05:47 02/18/18 05:49 Assessment/Plan Assessment/Plan Severe sepsis with UTI -Continue Abx -Await fischer cultures Nephrolithiasis s/p stent placement -Pain control Septic shock - improved -solucortef - D/C Metabolic lactic acidosis Bacteremia -with GNR -Continue Abx 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 -Check out patient PSG hx CAD HX of aortic stenosis hx DM II ABENA CABA DO Feb 18, 2018 07:23
[2018-02-18] MEDS: RT-ALBUTEROL/IPRATROPIUM 3 ML (DUONEB) VIAL INH SCH ×4 (07:46→19:01)
[2018-02-18] MEDS: PANTOPRAZOLE 40 MG (PROTONIX) TAB PO SCH (07:50)
[2018-02-18] MEDS: LEVOTHYROXINE 100 MCG (LEVOTHROID) TAB PO SCH (07:50)
[2018-02-18] MEDS: ACETAMINOPHEN 325 MG TABLET PO PRN ×2 (07:51→19:50)
[2018-02-18] MEDS: ATENOLOL 50 MG (TENORMIN) TAB PO SCH (08:03)
[2018-02-18] MEDS: LOSARTAN 100 MG (COZAAR) TABLET PO SCH (08:03)
[2018-02-18 08:48] VITALS: BP 183/85
--- NOTE | 2018-02-18 09:44 | Physical Therapy Progress Note ---
Therapy Progress Note Attempted to see pt at 810, pt declined stating he is tired and would like to rest. Returned to see pt a 932, he was reclined in his chair and sleeping. Family present and requested that we let him rest. Educated her that mobility is important and for her to encourage him getting up to and from the bathroom and possibly to shower today (with assist from nursing staff for all mobility). She agreed. Visit attempt x 2 today without success. CIRO JIMENEZ PT Feb 18, 2018 09:44
--- NOTE | 2018-02-18 10:59 | Physical Therapy Daily Note ---
PT Daily Note-Current Subjective Pt agreed to PT after he had RT this visit. Transfers Functional [place] Measure 0=Not Assessed/NA 4=Minimal Assistance 1=Total Assistance 5=Supervision or Setup 2=Maximal Assistance 6=Modified [place] 3=Moderate Assistance 7=Complete IndependenceIRFPAI Quality Coding Scale 6 Independent with activity with or without an assistive device 5 Patient requires set up or clean up by helper. Patient completes activity by themselves 4 Supervision or touching assist (CGA). [place] provide cues , steadying assist 3 The helper provides less than half the effort to complete the activity 2 The helper provides more than half the effort to complete the activity 1 Dependent. The helper does all the effort to complete an activity 7 Patient refused to complete or attempt activity 9 The patient did not perform the activity before the current illness or injury 88 Not attempted due to Medical conditions or safety concerns Weight Bearing Right Lower Extremity: Right Full Weight Bearing Left Lower Extremity: Left Full Weight Bearing Treatments Sit to stand from chair with min assist. Pt ambulated x 125 ft with FWW, slow giat, forward flexed and decreased foot clearance. Skilled cues for posture and to pick his feet up. pt walked in to the bathroom to toilet and then to shower. pt on toilet with nurse aide present after treatment. Assessment Current Status: Good Progress slow gait but no noted LOB. Steady PT Senior Living Goals Senior Living Goals PT Senior Living Goals Time Frame: Mar 04, 2018 Transfers (B,C,W/C) (FIM): 5 Gait (FIM): 1 Gait distance (FIM): 1=up to 49 ft Distance: 20' Gait Level of Assist: 5 Gait Assistive Device: FWW PT Plan Problem List Problem List: Activity Tolerance, Functional Strength Treatment/Plan Treatment Plan: Continue Plan of Care Treatment Plan: Bed Mobility, Education, Functional Activity Glenn, Functional Strength, Group Therapy, Gait, Safety, Therapeutic Exercise, Transfers Treatment Duration: Mar 04, 2018 Frequency: 6 times per week Estimated Hrs Per Day: .5 hour per day Patient and/or Family Agrees t: Yes Safety Risks/Education Patient Education: Transfer Techniques, Safety Issues Teaching Recipient: Patient Teaching Methods: Discussion Response to Teaching: Reinforcement Needed Discharge Recommendations Therapy D/C Recommendations: Physical Therapy Home Care Time/GCodes Time In: 1030 Time Out: 1053 Total Billed Treatment Time: 23 Total Billed Treatment visit GT 23 CIRO JIMENEZ PT Feb 18, 2018 10:59
[2018-02-18 12:06] VITALS: BP 131/67
[2018-02-18] MEDS ORDERED: MINERAL OIL ENEMA 133 ML BTL PR NR (12:15)
--- NOTE | 2018-02-18 12:17 | Progress Note-Hospitalist ---
Subjective HPI/CC On Admission Date Seen by Provider: Feb 18, 2018 Time Seen by Provider: 12:00 Mr. Barbour is a 77-year-old white male who apparently sometime over the weekend noticed some increased urinary frequency. On Tuesday he was noticing right lower quadrant pelvic as well as side pain rather sharp in nature and lasted for about 4 hours total. He called his urologist's office and did bring a urine specimen to a local lab for presumably a UA with S[employer]. He reported no further pain but did have progressive fatigue. Around 1 o'clock P.m. on the day of his admission he developed Reiger's and significant weakness. He initially refused his 's recommendation for calling the ambulance taken to the emergency room as he also apparently had a little confusion. She called his daughter nurse who was able to talk him into going to the emergency room. There he was found to have right-sided ureterolithiasis with hydronephrosis and findings compatible with severe sepsis and pyelonephritis. Shortly after arrival became hypotensive requiring IV fluids and pressor support. Currently pathology reports gram-negative rods in the urine as well as blood. After IV fluid resuscitation currently he is off of leave a fed as of around 7 o'clock this morning with mean arterial pressures in the 70s to 80s and heart rate in the 80s to 90s. He's a little fuzzy on history but oriented 2 answering questions otherwise appropriately. He denies any chest discomfort or shortness of breath just extreme fatigue. Reports she is able to move his lower extremities are currently when he didn't feel like he could yesterday due to weakness. He denies abdominal flank or pelvic pain currently. He's had no Reiger's during his hospital stay thus far. Subjective/Events-last exam Patient woke up this morning was very disappointed that he didn't get to go home today. He is running a temperature 100.7 he does not feel as well has not had a bowel movement in 5-12 days he can't really remember. He complains of feeling full and indeed his abdominal exam today reflects a probable ileus. His notes that he often has trouble constipation only going every 3-5 days and has to use a laxative. Denies any chest pain or shortness of breath just not feeling as well. Review of Systems Gastrointestinal: Constipation Neurological: Weakness Focused Exam Lactate Level 02/16/18 04:55: Lactic Acid Level 1.31 Time of Focused Exam: 20:21 Objective Exam Vital Signs Vital Signs Date Time Temp Pulse Resp B/P (MAP) Pulse Ox O2 Delivery O2 Flow Rate FiO2 02/18/18 10:37 93 Nasal Cannula 2.00 02/18/18 10:00 99.8 02/18/18 08:48 72 22 183/85 (117) 02/16/18 00:00 40 Capillary Refill : Less Than 3 Seconds General Appearance: Chronically ill HEENT: Normal ENT Inspection Neck: Normal Inspection, Non Tender, Supple Respiratory: Normal Breath Sounds, No Accessory Muscle Use, No Respiratory Distress, Crackles Cardiovascular: Regular Rate, Rhythm, No Gallop, Systolic Murmur Gastrointestinal: Non Tender, Abnormal Bowel Sounds, Distended Rectal: Deferred Back: Normal Inspection, No Vertebral Tenderness Extremity: Normal Range of Motion, Pedal Edema Results/Procedures Lab Laboratory Tests 02/18/18 05:47 02/18/18 05:49 Patient resulted labs reviewed. Assessment/Plan Assessment and Plan Assess & Plan/Chief Complaint 1. Septic shock secondary to Proteus mirabilis-pansensitive on Rocephin 2. Right uretero lithiasis with hydronephrosis status post intervention by Dr. Khalil and secondary sepsis 3. New onset fever with abdominal findings consistent with an ileus we'll check a KUB and chest x-ray 4. Thrombocytopenia most likely secondary to sepsis and proving 5. Aortic stenosis 6. Deconditioning we'll order an inpatient rehabilitation evaluation since the patient lives at home with his and she is unable to assist him and he has lost a lot of strength at this time 7. Constipation because of the bowel sound he thinks of an ileus we will try Fleet Enema, and start MiraLAX 8. Type II diabetes on insulin 9. Morbid obesity with deconditioning Critical Care Critical Care: Critically Ill Patient Clinical Quality Measures DVT/VTE Risk/Contraindication: Risk Factor Score Per Nursin RFS Level Per Nursing on Admit: 4+=Very High JAMI SEXTON MD Feb 18, 2018 12:17 pm
--- NOTE | 2018-02-18 14:26 | Diagnostic Imaging Report ---
Indication: New onset fever. Comparison: 02/16/2018. Findings: Ill-defined lingular opacities are present and similar to prior exam. No dense airspace consolidations. No pleural effusion or pneumothorax. Stable cardiomegaly with atherosclerotic aorta. Impression: Lingular opacities have a morphology that would favor subsegmental atelectasis. However, an infectious process could also have this appearance in the appropriate setting. Dictated by: Dictated on workstation # [id number]
--- NOTE | 2018-02-18 14:38 | Diagnostic Imaging Report ---
INDICATION: Abdominal pain. Ileus. COMPARISON: 02/15/2018. FINDINGS: Gas-filled and dilated loops of small bowel in colon are unchanged. The transverse colon measures up to 7 cm in the left hemiabdomen. No evidence of free intraperitoneal air. Cholecystectomy. Degenerative changes lumbar spine. Nephroureteral stent is present. IMPRESSION: Unchanged diffuse gaseous distention of the distal small bowel and colon which should correspond to patient's known ileus. Dictated by: Dictated on workstation # [id number]
[2018-02-18] MEDS: cefTRIAXone FOR IV USE 1,000 MG in NS (IVPB) 50 ML IV SCH (15:39)
[2018-02-18 15:45] VITALS: BP 168/77
[2018-02-18 19:39] VITALS: BP 187/82
[2018-02-18] MEDS: doxAzosin 2 MG (CARDURA) TAB PO SCH (19:47)
[2018-02-18] MEDS ORDERED: POLYETHYLENE GLYCOL 17 GM (MIRALAX) PACK PO SCH (21:00)
[2018-02-19] VITALS: BP 128/63
[2018-02-19 04:00] VITALS: BP 163/77
[2018-02-19 04:38] LABS: BASOPHILS % (AUTO) 0 % (0-10); EOSINOPHILS # (AUTO) 0.2 10^3/uL (0.0-0.3); EOSINOPHILS % (AUTO) 2 % (0-10); HEMATOCRIT 37 % (40-54); HEMOGLOBIN 12.6 G/DL (13.3-17.7); LYMPHOCYTES # (AUTO) 0.9 X 10^3 (1.0-4.0); LYMPHOCYTES % (AUTO) 10 % (12-44); MEAN CORPUSCULAR HEMOGLOBIN 31 PG (25-34); MEAN CORPUSCULAR HGB CONC 34 G/DL (32-36); MEAN CORPUSCULAR VOLUME 89 FL (80-99); MEAN PLATELET VOLUME 11.4 FL (7.4-10.4); MONOCYTES % (AUTO) 12 % (0-12); NEUTROPHILS # (AUTO) 6.6 X 10^3 (1.8-7.8); NEUTROPHILS % (AUTO) 76 % (42-75); PLATELET COUNT 91 10^3/uL (130-400); RED BLOOD COUNT 4.13 10^6/uL (4.35-5.85); WHITE BLOOD COUNT 8.7 10^3/uL (4.3-11.0)
[2018-02-19 04:52] LABS: BUN/CREATININE RATIO 19; CARBON DIOXIDE 23 MMOL/L (21-32); CHLORIDE 111 MMOL/L (98-107); CREATININE SERUM 0.88 MG/DL (0.60-1.30); GFR ESTIMATED > 60; GLUCOSE 157 MG/DL (70-105); POTASSIUM 3.7 MMOL/L (3.6-5.0); SODIUM 144 MMOL/L (135-145)
[2018-02-19 05:29] LABS: LYMPHOCYTES % (MANUAL) 17 %; MONOCYTES % (MANUAL) 6 %; NEUTROPHILS % (MANUAL) 77 %
[2018-02-19] MEDS: inSUlin ASPART (NovoLOG) 1 UNIT/0.01 ML (CHARGE PER UNIT) SC SCH ×2 (05:54→13:05)
[2018-02-19] MEDS: PANTOPRAZOLE 40 MG (PROTONIX) TAB PO SCH (05:57)
[2018-02-19] MEDS: LEVOTHYROXINE 100 MCG (LEVOTHROID) TAB PO SCH (05:57)
[2018-02-19 08:00] VITALS: BP 133/61
[2018-02-19] MEDS: RT-ALBUTEROL/IPRATROPIUM 3 ML (DUONEB) VIAL INH SCH ×2 (08:07→10:55)
[2018-02-19] MEDS: ATENOLOL 50 MG (TENORMIN) TAB PO SCH (08:56)
[2018-02-19] MEDS: LOSARTAN 100 MG (COZAAR) TABLET PO SCH (08:56)
[2018-02-19 12:17] VITALS: BP 132/64
--- NOTE | 2018-02-19 12:26 | Progress Note-Hospitalist ---
Subjective HPI/CC On Admission Date Seen by Provider: Feb 19, 2018 Time Seen by Provider: 12:00 Mr. Barbour is a 77-year-old white male who apparently sometime over the weekend noticed some increased urinary frequency. On Tuesday he was noticing right lower quadrant pelvic as well as side pain rather sharp in nature and lasted for about 4 hours total. He called his urologist's office and did bring a urine specimen to a local lab for presumably a UA with [employer]OR [employer]. He reported no further pain but did have progressive fatigue. Around 1 o'clock P.m. on the day of his admission he developed Reiger's and significant weakness. He initially refused his 's recommendation for calling the ambulance taken to the emergency room as he also apparently had a little confusion. She called his daughter nurse who was able to talk him into going to the emergency room. There he was found to have right-sided ureterolithiasis with hydronephrosis and findings compatible with severe sepsis and pyelonephritis. Shortly after arrival became hypotensive requiring IV fluids and pressor support. Currently pathology reports gram-negative rods in the urine as well as blood. After IV fluid resuscitation currently he is off of leave a fed as of around 7 o'clock this morning with mean arterial pressures in the 70s to 80s and heart rate in the 80s to 90s. He's a little fuzzy on history but oriented 2 answering questions otherwise appropriately. He denies any chest discomfort or shortness of breath just extreme fatigue. Reports she is able to move his lower extremities are currently when he didn't feel like he could yesterday due to weakness. He denies abdominal flank or pelvic pain currently. He's had no Reiger's during his hospital stay thus far. Subjective/Events-last exam Patient currently is adamant that he is going home today. He is ambulating short distances to the bathroom. He says he feels well and that his bowels moved with the enema yesterday. Oxygen saturation is 92 percent on room air with ambulation 94 percent room air at rest Review of Systems Musculoskeletal: leg pain Neurological: Weakness Focused Exam Time of Focused Exam: 20:21 Objective Exam Vital Signs Vital Signs Date Time Temp Pulse Resp B/P (MAP) Pulse Ox O2 Delivery O2 Flow Rate FiO2 02/19/18 12:17 99.3 71 18 132/64 (86) 94 Room Air 02/19/18 08:08 1.00 02/16/18 00:00 40 Capillary Refill : Less Than 3 Seconds General Appearance: Obese HEENT: Normal ENT Inspection Neck: Non Tender, Supple Respiratory: Lungs Clear, Normal Breath Sounds, No Accessory Muscle Use, No Respiratory Distress Cardiovascular: Regular Rate, Rhythm, No Gallop, No Murmur Gastrointestinal: Non Tender, Abnormal Bowel Sounds, Distended Back: Normal Inspection Extremity: Pedal Edema Neurologic/Psychiatric: Alert, Oriented x3, No Motor/Sensory Deficits, Normal Mood/Affect Skin: Normal Color, Warm/Dry Results/Procedures Lab Laboratory Tests 02/19/18 04:20 Patient resulted labs reviewed. Assessment/Plan Assessment and Plan Assess & Plan/Chief Complaint 1. Septic shock secondary to Proteus mirabilis-pansensitive on Rocephin-we'll discharge on cefuroxime 2. Right uretero lithiasis with hydronephrosis status post intervention by Dr. Khalil and secondary sepsis 3. New onset fever with abdominal findings consistent with an ileus, KUB confirms an ileus but patient is symptomatically improved today and chest x-ray 4. Thrombocytopenia most likely secondary to sepsis stable no signs of bleeding patient is informed 5. Aortic stenosis 6. Deconditioning we'll order an inpatient rehabilitation evaluation since the patient lives at home with his and she is unable to assist him and he has lost a lot of strength at this time-he is adamant he will not stay at this hospital 7. Constipation-chronic 8. Type II diabetes on insulin 9. Morbid obesity with deconditioning Discharge home with home health set up for tomorrow Critical Care Critical Care: Critically Ill Patient Clinical Quality Measures DVT/VTE Risk/Contraindication: Risk Factor Score Per Nursin RFS Level Per Nursing on Admit: 4+=Very High JAMI SEXTON MD Feb 19, 2018 12:26
[2018-02-19] MEDS ORDERED: cefTRIAXone FOR IV USE 1,000 MG in NS (IVPB) 50 ML IV SCH (12:30)
[2018-02-19 13:35] VITALS: BP 132/64
--- NOTE | 2018-03-06 09:27 | Discharge Summary-Hospitalist ---
Diagnosis/Chief Complaint Date of Admission Feb 14, 2018 at 8:15 pm Date of Discharge Feb 19, 2018 at 1:35 pm Discharge Date: Feb 19, 2018 Discharge Time: 13:35 Admission Diagnosis 1. Right ureterolithiasis with hydro-nephrosis resulting in gram-negative pyelonephritis and secondary severe sepsis. With volume resuscitation patient condition is improved and he is currently off pressor support. Urology has been consulted with plans for right ureteral stent placement later this morning. We will await culture results and continue Rocephin. We will check on urine cultures done on an outside lab reportedly Tuesday of this week. Statistically E coli most likely culprit. 2. History of coronary artery disease for acute coronary syndrome currently. 3. History of aortic stenosis. 4. History of hypertension. 5. Type II diabetes mellitus which has been diet controlled. Discharge Diagnosis severe sepsis right ureterolithiasis Septic shock acute renal failure chronic renal insufficiency aortic stenosis CAD htn DM -out of control morbid obesity -BMI 48 deconditioning Discharge Summary Procedures/Consulations Simran Discharge Physical Exam Allergies: Coded Allergies: No Known Drug Allergies (Unverified , 09/17/11) General Appearance: Chronically ill Respiratory: Decreased Breath Sounds Cardiovascular: Regular Rate, Rhythm, Systolic Murmur (08/09) Gastrointestinal: Abnormal Bowel Sounds, Distended Extremity: Pedal Edema Skin: Normal Color, Warm/Dry Neurologic/Psychiatric: Alert, Oriented x3, No Motor/Sensory Deficits, Normal Mood/Affect Hospital Course Pt admitted with sever sepsis requiring aggressive fluid resuscitation and pressor support.Pt improved but required full assistance to get up and move around. He was adamant about going home with home health, despite evidence of an ileus on exam and being in a weakened state. Labs (last 24 hrs) Microbiology 02/14/18 Blood Culture - Final, Complete Proteus mirabilis See Report 02/14/18 MRSA Screen - Final, Complete MRSA not isolated 02/14/18 Urine Culture - Final, Complete Proteus mirabilis Patient resulted labs reviewed. Imaging: Reviewed Imaging Report Discussion & Recommendations Discharge Planning: >30 minutes discharge planning Discharge Home Medications: Active Scripts Active Cephalexin 500 Mg Capsule 500 Mg PO TID 5 Days Reported Glucosamine Chondroitin Tab (Gluc Beckham/Chondro Beckham A/Vit C/Mn) 1 Each Tablet 1 Tab PO DAILY Ruben Multi For Men Tablet (Mv-Mn/FA/Lycopene/Lut/Hb#178) 1 Each Tablet 1 Tab PO DAILY Saw [place] (Saw [place] Fruit) 450 Mg Capsule 450 Mg PO DAILY Fish Oil 1,000 mg Capsule ([place] 3 Polyunsat Fatty Acids) 1,000 Mg Cap 1,000 Mg PO DAILY Vitamin B-12 (Cyanocobalamin (Vitamin B-12)) 1,000 Mcg Tablet 1,000 Mcg PO DAILY Zinc 50 Mg Tablet 50 Mg PO DAILY Levothyroxine Sodium 200 Mcg Tablet 200 Mcg PO DAILY LAST FILLED #90 08-22-17 TAKE ALONG WITH 50MCG TABLET Aspirin EC (Aspirin) 81 Mg Tablet.dr 81 Mg PO DAILY Atenolol 50 Mg Tablet 50 Mg PO DAILY Atorvastatin Calcium 40 Mg Tablet 40 Mg PO DAILY Synthroid (Levothyroxine Sodium) 50 Mcg Tablet 50 Mcg PO DAILY TAKE ALONG WITH 200MCG TABLET Duloxetine HCl 60 Mg Capsule.dr 60 Mg PO DAILY Metformin HCl ER (Metformin HCl) 1,000 Mg Tab.er.24 1,000 Mg PO BID WITH MEALS Lyrica (Pregabalin) 75 Mg Capsule 75 Mg PO BID Myrbetriq (Mirabegron) 50 Mg Tab.er.24h 50 Mg PO DAILY Losartan Potassium 100 Mg Tablet 100 Mg PO DAILY Vesicare (Solifenacin Succinate) 5 Mg Tablet 5 Mg PO DAILY Tamsulosin HCl 0.4 Mg Cap.er.24h 0.4 Mg PO 1800 Pantoprazole Sodium 40 Mg Tablet.dr 40 Mg PO 1800 Desmopressin Acetate 0.2 Mg Tablet 0.6 Mg PO HS TAKES 3 (0.2MG) TABLETS Furosemide 40 Mg Tablet 40 Mg PO DAILY Potassium Chloride 8 Meq Tablet.er 8 Meq PO DAILY Condition at discharge stable Instructions to patient/family Please see electronic discharge instructions given to patient. Clinical Quality Measures Admission Status Admission Status: Inpatient Order (span 2 midnights) Reason for Inpatient Admission: severe sepsis with multiple comorbitities DVT/VTE Risk/Contraindication: Risk Factor Score Per Nursin RFS Level Per Nursing on Admit: 4+=Very High JAMI SEXTON MD Mar 06, 2018 9:27 am
== END 2018-02-19 13:35 | disposition home health service (06) | DRG 871 ==
LOC: EDUNIT# 14:57 → ER 14:58 → ICU 20:15 → 4TH 02-16 10:00
PROVIDERS: ADMIT Internal Medicine; ATTEND Internal Medicine
PROC: 0T768DZ Dilation of Right Ureter with Intraluminal Device, Via Natural or Artificial Opening Endoscopic (ICD-10-PCS; principal; 2018-02-15 10:10)
DX: A41.50 Gram-negative sepsis, unspecified (principal); R65.21 Severe sepsis with septic shock; N13.2 Hydronephrosis with renal and ureteral calculous obstruction; E66.01 Morbid (severe) obesity due to excess calories; Z68.42 Body mass index [BMI] 45.0-49.9, adult; D69.6 Thrombocytopenia, unspecified; N40.0 Benign prostatic hyperplasia without lower urinary tract symptoms; E11.9 Type 2 diabetes mellitus without complications; I10 Essential (primary) hypertension; E78.00 Pure hypercholesterolemia, unspecified; I35.0 Nonrheumatic aortic (valve) stenosis; M10.9 Gout, unspecified; K59.09 Other constipation; R53.1 Weakness; Z79.4 Long term (current) use of insulin; Z87.891 Personal history of nicotine dependence
CPT/HCPCS: 36415; 36600; 51702; 71045; 71046; 74018; 74019; 74176; 80048; 80053; 81000; 82805; 82962; 83605; 83735; 84100; 85007; 85025; 85027; 85610; 85730; 87040; 87077; 87081; 87088; 87186; 93005; 93306; 94640; 94660; 94760; 96361; 96365; 96366; 96367

== ENCOUNTER → 2018-02-24 | Outpatient (CLI) | payer MEDICARE, OTHER ==
[~2018-02-24] MED LIST changes: +ASPI-983 PO; +ATOR40TA70 PO; +CEPH500C PO; +CIPR-225 PO; +CYAN10006 PO; +DESM0.2T2 PO; +DULO60CA58 PO; +FURO40TA4 PO; +GLUC1TAB20 PO; +LEVO200T6 PO; +LEVO50TA PO; +LOSA100T8 PO; +METF-479 PO; +MIRA50TA PO; +MV-M1TAB37 PO; +NF-SOLIF5T PO; +OMG1KC PO; +PANT40TA3 PO; +PHEN-640 PO; +POTA8TAB6 PO; +PREG75CA PO; +SAW450CA7 PO; +TAMS0.4C2 PO; +ZINC50TA31 PO
--- NOTE | 2018-02-24 12:28 | Diagnostic Imaging Report ---
EXAMINATION: Supine abdomen at 12:23 p.m. INDICATION: Nephrolithiasis. FINDINGS: As noted on the prior exam of 02/18/2018, there is a ureteral stent in place on the right. There is no evidence for a calculus overlying the right kidney or along the path of the stent. There is no sign of nephrolithiasis on the left either; however, both renal contours are obscured by bowel gas and fecal material. There is still considerable distention of the colon by gas and fecal material. This appearance is similar to the prior study. There is no mass or organomegaly identified. The osseous structures are intact. IMPRESSION: 1. The ureteral stent on the right seen previously is again evident and no different. There is still no sign of nephrolithiasis or urolithiasis. 2. There is persistent distention of the colon by gas and fecal material. Dictated by: Dictated on workstation # [id number]
--- NOTE | 2018-02-24 13:52 | Diagnostic Imaging Report ---
PROCEDURE: CT abdomen and pelvis without contrast. TECHNIQUE: Multiple contiguous axial images were obtained through the abdomen and pelvis without the use of intravenous contrast. INDICATION: Right-sided pain. FINDINGS: The previous CT abdomen/pelvis exam of 02/14/2018 noted a 4 mm distal right ureteral calculus. This was producing moderate hydronephrosis of the right collecting system. In the interval since the prior exam, a ureteral stent has been inserted on the right. The right renal pelvis and right ureter do seem decompressed when compared to the prior exam. There is also much less perinephric stranding about the right kidney than noted previously. The stent itself seems to be in good position. The aforementioned calculus cannot be identified. The previous study also noted a stable 5 cm cyst associated with the left kidney and a tiny nonobstructive calculus within the inferior pole of the left kidney. There was no sign of obstruction of the left collecting system, however. On this exam, the left kidney appears stable. No new abnormality has developed. There is no pelvic mass or free fluid collection evident. The urinary bladder and prostate gland are grossly unremarkable. The appendix was not well visualized but there are no indirect signs of acute appendicitis. There does seem to be less distortion of the mesenteric fat in the right lower quadrant than noted on the prior exam. The liver, spleen, pancreas, adrenals, gallbladder, kidneys, aorta, and inferior vena cava are unremarkable for an acute abnormality. The stomach is not well distended and consequently difficult to assess. In the interval since the prior study, mild atelectasis/infiltrate and small bilateral pleural effusions have developed. The bone window shows no evidence for fracture or for destructive lesion. Incidental note is made of well-circumscribed 3.0 x 5.1 cm soft tissue density immediately beneath the skin surface along the posterior aspect of the left flank. This was present on the prior exam but has not changed. I suspect that this is a sebaceous cyst. IMPRESSION: 1. In the interval since the prior exam, a ureteral stent has been inserted on the right. The previously noted obstructive calculus in the distal right ureter is no longer visualized and the right collecting system is now decompressed. 2. There is no acute abnormality of the abdomen or pelvis identified. 3. Mild bibasilar atelectasis/infiltrate and small bilateral pleural effusions have developed since the prior study. Dictated by: Dictated on workstation # [id number]
== END ==
LOC: RAD 11:38
PROVIDERS: ATTEND Urology
DX: N20.1 Calculus of ureter (principal); R10.9 Unspecified abdominal pain; J90 Pleural effusion, not elsewhere classified; Z96.0 Presence of urogenital implants
CPT/HCPCS: 74018; 74176

== ENCOUNTER → 2018-02-24 | Outpatient (CLI) | payer MEDICARE, OTHER ==
--- NOTE | 2018-02-24 14:03 | Diagnostic Imaging Report ---
PROCEDURE: CT chest without contrast. TECHNIQUE: Multiple contiguous axial images were obtained through the chest without the use of intravenous contrast. INDICATION: Dyspnea. FINDINGS: There are no prior CT chest examinations available for comparison. The plain film examination of the chest performed on 02/18/2018 suggested lingular atelectasis/infiltrate. On this exam, there is mild bibasilar atelectasis/infiltrate and small bilateral pleural effusions. The effusion on the right measures 3 cm in maximum depth while there is only trace amount of fluid in the left lung base. There are also alveolar/interstitial pulmonary infiltrates involving the right apex. While it is possible that these findings could be chronic in nature, acute pneumonia/atelectasis in the right upper lobe cannot be entirely excluded. The left upper lobe is clear. The heart is enlarged, and there are extensive coronary artery calcifications evident. The aorta is not abnormally dilated, and there is no sign of a dissection. There is no mediastinal or hilar adenopathy. The sections through the upper abdomen show numerous calcifications throughout the spleen. 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 There is no acute abnormality of the upper abdomen. The bone windows are unremarkable for a fracture or for a destructive lesion. There is fairly severe degenerative disc and bony disease throughout the mid and lower thoracic spine. IMPRESSION: 1. There is mild bibasilar pneumonia/atelectasis and small bilateral pleural effusions. The alveolar/interstitial pulmonary infiltrate in the right upper lobe could also be related to pneumonia/atelectasis. A followup chest exam would be recommended for continued evaluation. 2. There is no acute cardiopulmonary abnormality noted otherwise. 3. There is cardiomegaly and coronary artery disease. Dictated by: Dictated on workstation # [id number]
== END ==
LOC: RAD 11:45
PROVIDERS: ATTEND Nurse Practitioner Family
DX: J90 Pleural effusion, not elsewhere classified (principal); A41.9 Sepsis, unspecified organism; E66.01 Morbid (severe) obesity due to excess calories; I25.10 Atherosclerotic heart disease of native coronary artery without angina pectoris; I51.7 Cardiomegaly; R60.9 Edema, unspecified; Z87.891 Personal history of nicotine dependence
CPT/HCPCS: 71250

== ENCOUNTER 2018-03-07 05:46 | Outpatient (CLI) | payer MEDICARE, OTHER ==
[~2018-03-07] VITALS: Ht 180.3 cm; Wt 143.1 kg
[~2018-03-07 05:46] MED LIST changes: -CIPR-225 PO; -PHEN-640 PO
[2018-03-08] MEDS ORDERED: PHEN-640 PO (09:18)
[2018-03-08] MEDS ORDERED: CIPR-225 PO (09:18)
== END 2018-03-07 14:01 | disposition home or self-care (01) ==
LOC: PREOP 05:46
PROVIDERS: ATTEND Urology
DX: Z01.818 Encounter for other preprocedural examination (principal)

== ENCOUNTER 2018-03-08 06:23 | Day surgery (SDC) | payer MEDICARE, OTHER ==
[~2018-03-08] VITALS: Ht 180.3 cm; Wt 143.1 kg
--- OUTSIDE RECORDS SUMMARY | 2018-03-08 06:28 | XMS REPORT | Continuity of Care Document ---
Author Author [facility] Organization [facility] Address Unknown Phone Unavailable Allergies Active Description Code Type Severity Reaction Onset Reported/Identified Relationship to Patient Clinical Status Yes No Known Drug Allergies [id number] Drug Allergy Unknown N/A 09/17/2011 Medications There is no data. Problems Date Dx Coded Attending Type Code Diagnosis Diagnosed By 09/17/2011 Ot 211.1 09/17/2011 Ot 211.3 09/17/2011 Ot 535.40 09/17/2011 Ot 562.00 09/17/2011 Ot 562.10 09/17/2011 Ot 569.3 09/17/2011 Ot 783.21 09/17/2011 Ot 787.99 07/09/2014 HUAN GRAY DESK MANAGER Ot 599.0 07/09/2014 HUAN GRAY APRN Ot [...] URINARY TRACT INFECTION, SITE NOT SPECIF 06/17/2016 ISMAEL GARZON, BRIDGETT Lawson Ot R31.0 GROSS HEMATURIA 06/17/2016 ISMAEL GARZON, BRIDGETT Lawson Ot R32 UNSPECIFIED URINARY INCONTINENCE 07/07/2016 BRIDGETT GUEVARA MD Ot R31.0 GROSS HEMATURIA 07/07/2016 BRIDGETT GUEVARA MD Ot R32 UNSPECIFIED URINARY INCONTINENCE 02/18/2018 ODNORRIS ASHER MD Ot A41.50 GRAM-NEGATIVE SEPSIS, UNSPECIFIED 02/18/2018 NORRIS MCMAHON MD Ot E11.9 TYPE 2 DIABETES MELLITUS WITHOUT COMPLIC 02/18/2018 NORRIS MCMAHON MD Ot E66.9 OBESITY, UNSPECIFIED 02/18/2018 NORRIS MCMAHON MD Ot E78.00 PURE HYPERCHOLESTEROLEMIA, UNSPECIFIED 02/18/2018 NORRIS MCMAHON MD Ot I10 ESSENTIAL (PRIMARY) HYPERTENSION 02/18/2018 NORRIS MCMAHON MD Ot I35.0 NONRHEUMATIC AORTIC (VALVE) STENOSIS 02/18/2018 NORRIS MCMAHON MD Ot M10.9 GOUT, UNSPECIFIED 02/18/2018 NORRIS MCMAHON MD Ot N13.6 PYONEPHROSIS 02/18/2018 NORRIS MCMAHON MD Ot R65.21 SEVERE SEPSIS WITH SEPTIC SHOCK 02/18/2018 NORRIS MCMAHON MD Ot Z68.42 BODY MASS INDEX (BMI) 45.0-49.9, ADULT 02/18/2018 NORRIS MCMAHON MD Ot Z87.891 PERSONAL HISTORY OF NICOTINE DEPENDENCE 02/19/2018 NORRIS MCMAHON MD Ot A41.50 GRAM-NEGATIVE SEPSIS, UNSPECIFIED 02/19/2018 NORRIS MCMAHON MD Ot D69.6 THROMBOCYTOPENIA, UNSPECIFIED 02/19/2018 NORRIS MCMAHON MD Ot E11.9 TYPE 2 DIABETES MELLITUS WITHOUT COMPLIC 02/19/2018 NORRIS MCMAHON MD Ot E66.01 MORBID (SEVERE) OBESITY DUE TO EXCESS CA 02/19/2018 NORRIS MCMAHON MD Ot E66.9 OBESITY, UNSPECIFIED 02/19/2018 NORRIS MCMAHON MD Ot E78.00 PURE HYPERCHOLESTEROLEMIA, UNSPECIFIED 02/19/2018 NORRIS MCMAHON MD Ot I10 ESSENTIAL (PRIMARY) HYPERTENSION 02/19/2018 NORRIS MCMAHON MD Ot I35.0 NONRHEUMATIC AORTIC (VALVE) STENOSIS 02/19/2018 NORRIS MCMAHON MD Ot K59.09 OTHER CONSTIPATION 02/19/2018 NORRIS MCMAHON MD Ot M10.9 GOUT, UNSPECIFIED 02/19/2018 NORRIS MCMAHON MD Ot 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 02/19/2018 NORRIS MCMAHON MD Ot N13.6 PYONEPHROSIS 02/19/2018 NORRIS MCMAHON MD Ot N40.0 BENIGN PROSTATIC HYPERPLASIA WITHOUT LOW 02/19/2018 NORRIS MCMAHON MD Ot R53.1 WEAKNESS 02/19/2018 NORRIS MCMAHON MD Ot R65.21 SEVERE SEPSIS WITH SEPTIC SHOCK 02/19/2018 NORRIS MCMAHON MD Ot Z68.42 BODY MASS INDEX (BMI) 45.0-49.9, ADULT 02/19/2018 NORRIS MCMAHON MD Ot Z79.4 [facility] (CURRENT) USE OF INSULIN 02/19/2018 NORRIS MCMAHON MD Ot Z87.891 PERSONAL HISTORY OF NICOTINE DEPENDENCE 02/24/2018 TOM VALLEJO APRN Ot G47.9 SLEEP DISORDER, UNSPECIFIED 02/27/2018 TOM VALLEJO APRN Ot A41.9 SEPSIS, UNSPECIFIED ORGANISM 02/27/2018 TOM VALLEJO APRN Ot E66.01 MORBID (SEVERE) OBESITY DUE TO EXCESS CA 02/27/2018 TOM VALLEJO APRN Ot I25.10 ATHSCL HEART DISEASE OF [place] CORONARY 02/27/2018 TOM VALLEJO APRN Ot I51.7 CARDIOMEGALY 02/27/2018 TOM VALLEJO APRN Ot J90 PLEURAL EFFUSION, NOT ELSEWHERE CLASSIFI 02/27/2018 TOM VALLEJO APRN Ot R60.9 EDEMA, UNSPECIFIED 02/27/2018 TOM VALLEJO APRN Ot Z87.891 PERSONAL HISTORY OF NICOTINE DEPENDENCE 02/27/2018 FANG MCMILLAN MD Ot J90 PLEURAL EFFUSION, NOT ELSEWHERE CLASSIFI 02/27/2018 FANG MCMILLAN MD Ot N20.1 CALCULUS OF URETER 02/27/2018 FANG MCMILLAN MD Ot R10.9 UNSPECIFIED ABDOMINAL PAIN 02/27/2018 FANG MCMILLAN MD Ot Z96.0 PRESENCE OF UROGENITAL IMPLANTS Procedures Code Description Performed By Performed On [id number] DILATION OF RIGHT URETER WITH INTRALUMIN 02/15/2018 Results Test Result Range Bacterial urine culture - 02/26/16 14:04 Bacterial urine culture [id number] NRG COLONY COUNT >100,000/ML NRG FTX;REPORTABLE SENSITIVITY [...] susceptibility test by minimum inhibitory concentration - NR Complete urinalysis with reflex to culture - [...] culture - 06/16/16 15:05 Bacterial urine culture [id number] NRG COLONY COUNT >100,000/ML NRG FTX;REPORTABLE SENSITIVITY REPORTED 06/18 09:20 NR Bacterial susceptibility panel - 06/16/16 15:05 Gentamicin [...] and clavulanate potassium susc MARINA <= NRG Bacterial blood culture - 02/14/18 15:00 FREE TEXT EXTERNAL FINAL REPORT 02-17-2018, 09. NRG QUANTITY OF GROWTH . NRG Bacterial blood culture SEE REPORT [facility] [place] Bacterial susceptibility panel - 02/14/18 15:00 Gentamicin susceptibility test by minimum inhibitory concentration 4 NRG Trimethoprim/sulfamethoxazole susceptibility test by minimum inhibitoryconcentration S NRG Ampicillin susceptibility test by minimum inhibitory concentration < = NRG Cefazolin susceptibility test by minimum inhibitory concentration 8 NRG Ceftriaxone susceptibility test by minimum inhibitory concentration <= NRG Piperacillin/tazobactam susceptibility test by minimum inhibitory concentration S NRG Ciprofloxacin susceptibility test by minimum inhibitory concentration <= NRG Complete blood count (CBC) with automated white blood cell (WBC) differential - 02/14/18 15:00 Blood leukocytes automated count (number/volume) 5.3 10*3/uL 4.3-11.0 Blood erythrocytes automated count (number/volume) 4.74 10*6/uL 4.35-5.85 Venous blood hemoglobin measurement (mass/volume) 14.1 g/dL 13.3-17.7 Blood hematocrit (volume fraction) 42 % 40-54 Automated erythrocyte mean corpuscular volume 89 [foz_us] 80-99 Automated erythrocyte mean corpuscular hemoglobin (mass per erythrocyte) 30 pg 25-34 Automated erythrocyte mean corpuscular hemoglobin concentration measurement ( mass/volume) 33 g/dL 32-36 Automated erythrocyte distribution width ratio 15.1 % 10.0-14.5 Automated blood platelet count (count/volume) 153 10*3/uL 130-400 Automated blood platelet mean volume measurement 11.1 [foz_us] 7.4-10.4 Automated blood neutrophils/100 leukocytes 95 % 42-75 Automated blood lymphocytes/100 leukocytes 4 % 12-44 Blood monocytes/100 leukocytes 0 % 0-12 Automated blood eosinophils/100 leukocytes 0 % 0-10 Automated blood basophils/100 leukocytes 0 % 0-10 Blood neutrophils automated count (number/volume) 5.0 10*3 1.8-7.8 Blood lymphocytes automated count (number/volume) 0.2 10*3 1.0-4.0 Blood monocytes automated count (number/volume) 0.0 10*3 0.0-1.0 Automated eosinophil count 0.0 10*3/uL 0.0-0.3 Automated blood basophil count (count/volume) 0.0 10*3/uL 0.0-0.1 PT panel in platelet poor plasma by coagulation assay - 02/14/18 15:00 Prothrombin time (PT) in platelet poor plasma by coagulation assay 13.5 s 12.2-14.7 INR in platelet poor plasma or blood by coagulation assay 1.0 0.8-1.4 Activated partial thromboplastin time (aPTT) in platelet poor plasma bycoagulation assay - 02/14/18 15:00 Activated partial thromboplastin time (aPTT) in platelet poor plasma bycoagulation assay 20 s 24-35 Blood lactic acid measurement (moles/volume) - 02/14/18 15:00 Blood lactic acid measurement (moles/volume) 2.90 mmol/L 0.50-2.00 Comprehensive metabolic panel - 02/14/18 15:00 Serum or plasma sodium measurement (moles/volume) 132 mmol/L 135-145 Serum or plasma potassium measurement (moles/volume) 4.4 mmol/L 3.6-5.0 Serum or plasma chloride measurement (moles/volume) 102 mmol/L 98-107 Carbon dioxide 18 mmol/L 21-32 Serum or plasma anion gap determination (moles/volume) 12 mmol/L 5-14 Serum or plasma urea nitrogen measurement (mass/volume) 19 mg/dL 7-18 Serum or plasma creatinine measurement (mass/volume) 1.18 mg/dL 0.60-1.30 Serum or plasma urea nitrogen/creatinine mass ratio 16 NRG Serum or plasma creatinine measurement with calculation of estimated glomerular filtration rate 60 NRG Serum or plasma glucose measurement (mass/volume) 177 mg/dL 70-105 Serum or plasma calcium measurement (mass/volume) 9.4 mg/dL 8.5-10.1 Serum or plasma total bilirubin measurement (mass/volume) 1.4 mg/dL 0.1-1.0 Serum or plasma alkaline phosphatase measurement (enzymatic activity/volume) 94 U/L 40-136 Serum or plasma aspartate aminotransferase measurement (enzymatic activity/ volume) 18 U/L 5-34 Serum or plasma alanine aminotransferase measurement (enzymatic activity/volume ) 20 U/L 0-55 Serum or plasma protein measurement (mass/volume) 6.8 g/dL 6.4-8.2 Serum or plasma albumin measurement (mass/volume) 3.7 g/dL 3.2-4.5 CALCIUM CORRECTED 9.6 mg/dL 8.5-10.1 Blood manual differential performed detection - 02/14/18 15:00 Blood monocytes/100 leukocytes 0 % NRG Manual blood segmented neutrophils/100 leukocytes 82 % NRG Blood band neutrophils/100 leukocytes 14 % NRG Manual blood lymphocytes/100 leukocytes 4 % NRG Manual eosinophils/100 leukocytes in nose 0 % NRG Manual blood basophils/100 leukocytes 0 % NRG Blood erythrocyte morphology finding identification NORMAL NRG Bacterial urine culture - 02/14/18 15:05 Bacterial urine culture [id number] NRG COLONY COUNT >100,000/ML NRG FTX;REPORTABLE SUSCEPTIBILITY REPORTED 02-17-2018, 904. NR RML Sensitivity Panel - 02/14/18 15:05 Gentamicin susceptibility test by minimum inhibitory concentration 4 NRG Levofloxacin susceptibility test by minimum inhibitory concentration <= NRG Ampicillin susceptibility test by minimum inhibitory concentration < = NRG Cefazolin susceptibility test by minimum inhibitory concentration 8 NRG Ceftriaxone susceptibility test by minimum inhibitory concentration <= NRG Ciprofloxacin susceptibility test by minimum inhibitory concentration <= NRG Nitrofurantoin susceptibility test by minimum inhibitory concentration R NRG Amoxicillin and clavulanate potassium susc MARINA <= NRG Complete urinalysis with reflex to culture - 02/14/18 15:05 Urine color determination YELLOW NRG Urine clarity determination SLIGHTLY CLOUDY NRG Urine pH measurement by test strip 8 5-9 Specific gravity of urine by test strip 1.010 1.016- 1.022 Urine protein assay by test strip, semi-quantitative 2+ NEGATIVE Urine glucose detection by automated test strip NEGATIVE NEGATIVE Erythrocytes detection in urine sediment by light microscopy 5+ NEGATIVE Urine ketones detection by automated test [...] NRG Complete urinalysis with reflex to culture NO NRG Bacterial blood culture - 02/14/18 15:50 FREE TEXT EXTERNAL REFER TO CULTURE [id number] FOR SENSITIVITY NRG QUANTITY OF GROWTH . NRG Bacterial blood culture SEE REPORT NRG Serum or plasma lactate measurement (moles/volume) - 02/14/18 20:30 Serum or plasma lactate measurement (moles/volume) 2.74 mmol/L 0.50-2.00 Methicillin resistant Staphylococcus aureus (MRSA) screening culture - 21:40 Methicillin resistant Staphylococcus aureus (MRSA) screening culture NEG NRG Complete blood count (CBC) with automated white blood cell (WBC) differential - 02/15/18 03:50 Blood leukocytes automated count (number/volume) 15.6 10*3/uL 4.3-11.0 Blood erythrocytes automated count (number/volume) 4.17 10*6/uL 4.35-5.85 Venous blood hemoglobin measurement (mass/volume) 12.5 g/dL 13.3-17.7 Blood hematocrit (volume fraction) 37 % 40-54 Automated erythrocyte mean corpuscular volume 89 [foz_us] 80-99 Automated erythrocyte mean corpuscular hemoglobin (mass per erythrocyte) 30 pg 25-34 Automated erythrocyte mean corpuscular hemoglobin concentration measurement ( mass/volume) 34 g/dL 32-36 Automated erythrocyte distribution width ratio 15.4 % 10.0-14.5 Automated blood platelet count (count/volume) 122 10*3/uL 130-400 Automated blood platelet mean volume measurement 11.0 [foz_us] 7.4-10.4 Automated blood neutrophils/100 leukocytes 91 % 42-75 Automated blood lymphocytes/100 leukocytes 2 % 12-44 Blood monocytes/100 leukocytes 6 % 0-12 Automated blood eosinophils/100 leukocytes 0 % 0-10 Automated blood basophils/100 leukocytes 0 % 0-10 Blood neutrophils automated count (number/volume) 14.2 10*3 1.8-7.8 Blood lymphocytes automated count (number/volume) 0.4 10*3 1.0-4.0 Blood monocytes automated count (number/volume) 1.0 10*3 0.0-1.0 Automated eosinophil count 0.0 10*3/uL 0.0-0.3 Automated blood basophil count (count/volume) 0.0 10*3/uL 0.0-0.1 Blood lactic acid measurement (moles/volume) - 02/15/18 03:50 Blood lactic acid measurement (moles/volume) 2.43 mmol/L 0.50-2.00 Whole blood basic metabolic panel - 02/15/18 03:50 Serum or plasma sodium measurement (moles/volume) 135 mmol/L 135-145 Serum or plasma potassium measurement (moles/volume) 4.2 mmol/L 3.6-5.0 Serum or plasma chloride measurement (moles/volume) 108 mmol/L 98-107 Carbon dioxide 18 mmol/L 21-32 Serum or plasma anion gap determination (moles/volume) 9 mmol/L 5-14 Serum or plasma urea nitrogen measurement (mass/volume) 20 mg/dL 7-18 Serum or plasma creatinine measurement (mass/volume) 1.35 mg/dL 0.60-1.30 Serum or plasma urea nitrogen/creatinine mass ratio 15 NRG Serum or plasma creatinine measurement with calculation of estimated glomerular filtration rate 51 NRG Serum or plasma glucose measurement (mass/volume) 141 mg/dL 70-105 Serum or plasma calcium measurement (mass/volume) 8.1 mg/dL 8.5-10.1 Serum or plasma phosphate measurement (mass/volume) - 02/15/18 03:50 Serum or plasma phosphate measurement (mass/volume) 2.4 mg/dL 2.3-4.7 Magnesium - 02/15/18 03:50 Magnesium 1.3 mg/dL 1.8-2.4 Serum or plasma lactate measurement (moles/volume) - 02/15/18 06:10 Serum or plasma lactate measurement (moles/volume) 2.20 mmol/L 0.50-2.00 Capillary blood glucose measurement by glucometer (mass/volume) - 02/15/18 11: 09 Capillary blood glucose measurement by glucometer (mass/volume) 205 mg/dL 70-110 Capillary blood glucose measurement by glucometer (mass/volume) - 02/15/18 17: 37 Capillary blood glucose measurement by glucometer (mass/volume) 181 mg/dL 70-110 Complete blood count (CBC) with automated white blood cell (WBC) differential - 02/16/18 03:25 Blood leukocytes automated count (number/volume) 10.5 10*3/uL 4.3-11.0 Blood erythrocytes automated count (number/volume) 3.85 10*6/uL 4.35-5.85 Venous blood hemoglobin measurement (mass/volume) 11.5 g/dL 13.3-17.7 Blood hematocrit (volume fraction) 35 % 40-54 Automated erythrocyte mean corpuscular volume 91 [foz_us] 80-99 Automated erythrocyte mean corpuscular hemoglobin (mass per erythrocyte) 30 pg 25-34 Automated erythrocyte mean corpuscular hemoglobin concentration measurement ( mass/volume) 33 g/dL 32-36 Automated erythrocyte distribution width ratio 15.9 % 10.0-14.5 Automated blood platelet count (count/volume) 92 10*3/uL 130-400 Automated blood platelet mean volume measurement 11.2 [foz_us] 7.4-10.4 Automated blood neutrophils/100 leukocytes 92 % 42-75 Automated blood lymphocytes/100 leukocytes 4 % 12-44 Blood monocytes/100 leukocytes 4 % 0-12 Automated blood eosinophils/100 leukocytes 0 % 0-10 Automated blood basophils/100 leukocytes 0 % 0-10 Blood neutrophils automated count (number/volume) 9.7 10*3 1.8-7.8 Blood lymphocytes automated count (number/volume) 0.4 10*3 1.0-4.0 Blood monocytes automated count (number/volume) 0.4 10*3 0.0-1.0 Automated eosinophil count 0.0 10*3/uL 0.0-0.3 Automated blood basophil count (count/volume) 0.0 10*3/uL 0.0-0.1 Whole blood basic metabolic panel - 02/16/18 03:25 Serum or plasma sodium measurement (moles/volume) 140 mmol/L 135-145 Serum or plasma potassium measurement (moles/volume) 3.6 mmol/L 3.6-5.0 Serum or plasma chloride measurement (moles/volume) 112 mmol/L 98-107 Carbon dioxide 17 mmol/L 21-32 Serum or plasma anion gap determination (moles/volume) 11 mmol/L 5-14 Serum or plasma urea nitrogen measurement (mass/volume) 22 mg/dL 7-18 Serum or plasma creatinine measurement (mass/volume) 0.93 mg/dL 0.60-1.30 Serum or plasma urea nitrogen/creatinine mass ratio 24 NRG Serum or plasma creatinine measurement with calculation of estimated glomerular filtration rate > NRG Serum or plasma glucose measurement (mass/volume) 219 mg/dL 70-105 Serum or plasma calcium measurement (mass/volume) 8.1 mg/dL 8.5-10.1 Serum or plasma phosphate measurement (mass/volume) - 02/16/18 03:25 Serum or plasma phosphate measurement (mass/volume) 1.9 mg/dL 2.3-4.7 Magnesium - 02/16/18 03:25 Magnesium 2.0 mg/dL 1.8-2.4 Blood lactic acid measurement (moles/volume) - 02/16/18 04:55 Blood lactic acid measurement (moles/volume) 1.31 mmol/L 0.50-2.00 Capillary blood glucose measurement by glucometer (mass/volume) - 02/16/18 11: 14 Capillary blood glucose measurement by glucometer (mass/volume) 276 mg/dL 70-110 Capillary blood glucose measurement by glucometer (mass/volume) - 02/16/18 16: 23 Capillary blood glucose measurement by glucometer (mass/volume) 209 mg/dL 70-110 Capillary blood glucose measurement by glucometer (mass/volume) - 02/16/18 20: 58 Capillary blood glucose measurement by glucometer (mass/volume) 235 mg/dL 70-110 Capillary blood glucose measurement by glucometer (mass/volume) - 02/17/18 05: 11 Capillary blood glucose measurement by glucometer (mass/volume) 195 mg/dL 70-110 Complete blood count (CBC) with automated white blood cell (WBC) differential - 02/17/18 05:42 Blood leukocytes automated count (number/volume) 9.3 10*3/uL 4.3-11.0 Blood erythrocytes automated count (number/volume) 3.97 10*6/uL 4.35-5.85 Venous blood hemoglobin measurement (mass/volume) 12.0 g/dL 13.3-17.7 Blood hematocrit (volume fraction) 36 % 40-54 Automated erythrocyte mean corpuscular volume 89 [foz_us] 80-99 Automated erythrocyte mean corpuscular hemoglobin (mass per erythrocyte) 30 pg 25-34 Automated erythrocyte mean corpuscular hemoglobin concentration measurement ( mass/volume) 34 g/dL 32-36 Automated erythrocyte distribution width ratio 15.6 % 10.0-14.5 Automated blood platelet count (count/volume) 86 10*3/uL 130-400 Automated blood platelet mean volume measurement 11.8 [foz_us] 7.4-10.4 Automated blood neutrophils/100 leukocytes 88 % 42-75 Automated blood lymphocytes/100 leukocytes 6 % 12-44 Blood monocytes/100 leukocytes 6 % 0-12 Automated blood eosinophils/100 leukocytes 0 % 0-10 Automated blood basophils/100 leukocytes 0 % 0-10 Blood neutrophils automated count (number/volume) 8.2 10*3 1.8-7.8 Blood lymphocytes automated count (number/volume) 0.5 10*3 1.0-4.0 Blood monocytes automated count (number/volume) 0.6 10*3 0.0-1.0 Automated eosinophil count 0.0 10*3/uL 0.0-0.3 Automated blood basophil count (count/volume) 0.0 10*3/uL 0.0-0.1 Whole blood basic metabolic panel - 02/17/18 05:42 Serum or plasma sodium measurement (moles/volume) 139 mmol/L 135-145 Serum or plasma potassium measurement (moles/volume) 4.3 mmol/L 3.6-5.0 Serum or plasma chloride measurement (moles/volume) 112 mmol/L 98-107 Carbon dioxide 21 mmol/L 21-32 Serum or plasma anion gap determination (moles/volume) 6 mmol/L 5-14 Serum or plasma urea nitrogen measurement (mass/volume) 23 mg/dL 7-18 Serum or plasma creatinine measurement (mass/volume) 0.83 mg/dL 0.60-1.30 Serum or plasma urea nitrogen/creatinine mass ratio 28 NRG Serum or plasma creatinine measurement with calculation of estimated glomerular filtration rate > NRG Serum or plasma glucose measurement (mass/volume) 214 mg/dL 70-105 Serum or plasma calcium measurement (mass/volume) 8.5 mg/dL 8.5-10.1 Capillary blood glucose measurement by glucometer (mass/volume) - 02/17/18 11: 06 Capillary blood glucose measurement by glucometer (mass/volume) 202 mg/dL 70-110 Arterial blood gas measurement - 02/17/18 12:43 Blood pCO2 35 mm[Hg] 35-45 Blood pO2 60 mm[Hg] 79-93 Arterial blood bicarbonate measurement (moles/volume) 20 mmol/L 23-27 Arterial blood base excess by calculation -5.1 mmol/L - 2.5-2.5 Arterial blood oxygen saturation measurement 94 % 94-100 * Inhaled oxygen flow rate N/A NRG Arterial blood pH measurement with patient temperature correction 7.36 7.37-7.43 Arterial blood carbon dioxide, total measurement (moles/volume) 20.8 mmol/L 21.0-31.0 Body site LEFT RADIAL NRG Assessment of wrist artery patency prior to arterial puncture POSITIVE NRG Setting of ventilation mode NO NRG Measurement of body temperature 96.2 NRG Capillary blood glucose measurement by glucometer (mass/volume) - 02/17/18 16: 51 Capillary blood glucose measurement by glucometer (mass/volume) 208 mg/dL 70-110 Capillary blood glucose measurement by glucometer (mass/volume) - 02/17/18 20: 20 Capillary blood glucose measurement by glucometer (mass/volume) 178 mg/dL 70-110 Whole blood basic metabolic panel - 02/18/18 05:47 Serum or plasma sodium measurement (moles/volume) 142 mmol/L 135-145 Serum or plasma potassium measurement (moles/volume) 3.6 mmol/L 3.6-5.0 Serum or plasma chloride measurement (moles/volume) 111 mmol/L 98-107 Carbon dioxide 19 mmol/L 21-32 Serum or plasma anion gap determination (moles/volume) 12 mmol/L 5-14 Serum or plasma urea nitrogen measurement (mass/volume) 22 mg/dL 7-18 Serum or plasma creatinine measurement (mass/volume) 0.94 mg/dL 0.60-1.30 Serum or plasma urea nitrogen/creatinine mass ratio 23 NRG Serum or plasma creatinine measurement with calculation of estimated glomerular filtration rate > NRG Serum or plasma glucose measurement (mass/volume) 171 mg/dL 70-105 Serum or plasma calcium measurement (mass/volume) 8.9 mg/dL 8.5-10.1 Complete blood count (CBC) with automated white blood cell (WBC) differential - 02/18/18 05:49 Blood leukocytes automated count (number/volume) 9.2 10*3/uL 4.3-11.0 Blood erythrocytes automated count (number/volume) 4.32 10*6/uL 4.35-5.85 Venous blood hemoglobin measurement (mass/volume) 12.7 g/dL 13.3-17.7 Blood hematocrit (volume fraction) 38 % 40-54 Automated erythrocyte mean corpuscular volume 89 [foz_us] 80-99 Automated erythrocyte mean corpuscular hemoglobin (mass per erythrocyte) 29 pg 25-34 Automated erythrocyte mean corpuscular hemoglobin concentration measurement ( mass/volume) 33 g/dL 32-36 Automated erythrocyte distribution width ratio 16.2 % 10.0-14.5 Automated blood platelet count (count/volume) 94 10*3/uL 130-400 Automated blood platelet mean volume measurement 11.0 [foz_us] 7.4-10.4 Automated blood neutrophils/100 leukocytes 80 % 42-75 Automated blood lymphocytes/100 leukocytes 11 % 12-44 Blood monocytes/100 leukocytes 9 % 0-12 Automated blood eosinophils/100 leukocytes 1 % 0-10 Automated blood basophils/100 leukocytes 0 % 0-10 Blood neutrophils automated count (number/volume) 7.3 10*3 1.8-7.8 Blood lymphocytes automated count (number/volume) 1.0 10*3 1.0-4.0 Blood monocytes automated count (number/volume) 0.8 10*3 0.0-1.0 Automated eosinophil count 0.1 10*3/uL 0.0-0.3 Automated blood basophil count (count/volume) 0.0 10*3/uL 0.0-0.1 Capillary blood glucose measurement by glucometer (mass/volume) - 02/18/18 06: 58 Capillary blood glucose measurement by glucometer (mass/volume) 149 mg/dL 70-110 Capillary blood glucose measurement by glucometer (mass/volume) - 02/18/18 10: 09 Capillary blood glucose measurement by glucometer (mass/volume) 168 mg/dL 70-110 Capillary blood glucose measurement by glucometer (mass/volume) - 02/18/18 15: 54 Capillary blood glucose measurement by glucometer (mass/volume) 160 mg/dL 70-110 Capillary blood glucose measurement by glucometer (mass/volume) - 02/18/18 20: 37 Capillary blood glucose measurement by glucometer (mass/volume) 152 mg/dL 70-110 Complete blood count (CBC) with automated white blood cell (WBC) differential - 02/19/18 04:20 Blood leukocytes automated count (number/volume) 8.7 10*3/uL 4.3-11.0 Blood erythrocytes automated count (number/volume) 4.13 10*6/uL 4.35-5.85 Venous blood hemoglobin measurement (mass/volume) 12.6 g/dL 13.3-17.7 Blood hematocrit (volume fraction) 37 % 40-54 Automated erythrocyte mean corpuscular volume 89 [foz_us] 80-99 Automated erythrocyte mean corpuscular hemoglobin (mass per erythrocyte) 31 pg 25-34 Automated erythrocyte mean corpuscular hemoglobin concentration measurement ( mass/volume) 34 g/dL 32-36 Automated erythrocyte distribution width ratio 16.0 % 10.0-14.5 Automated blood platelet count (count/volume) 91 10*3/uL 130-400 Automated blood platelet mean volume measurement 11.4 [foz_us] 7.4-10.4 Automated blood neutrophils/100 leukocytes 76 % 42-75 Automated blood lymphocytes/100 leukocytes 10 % 12-44 Blood monocytes/100 leukocytes 12 % 0-12 Automated blood eosinophils/100 leukocytes 2 % 0-10 Automated blood basophils/100 leukocytes 0 % 0-10 Blood neutrophils automated count (number/volume) 6.6 10*3 1.8-7.8 Blood lymphocytes automated count (number/volume) 0.9 10*3 1.0-4.0 Blood monocytes automated count (number/volume) 1.0 10*3 0.0-1.0 Automated eosinophil count 0.2 10*3/uL 0.0-0.3 Automated blood basophil count (count/volume) 0.0 10*3/uL 0.0-0.1 Blood manual differential performed detection - 02/19/18 04:20 Blood monocytes/100 leukocytes 6 % NRG Manual blood segmented neutrophils/100 leukocytes 77 % NRG Manual blood lymphocytes/100 leukocytes 17 % NRG Capillary blood glucose measurement by glucometer (mass/volume) - 02/19/18 05: 28 Capillary blood glucose measurement by glucometer (mass/volume) 154 mg/dL 70-110 Capillary blood glucose measurement by glucometer (mass/volume) - 02/19/18 12: 20 Capillary blood glucose measurement by glucometer (mass/volume) 185 mg/dL 70-110 Encounters ACCT No. Visit Date/Time Discharge Status Pt. Type Provider Facility Loc./Unit Complaint [id number] 02/24/2018 11:45:00 02/24/2018 23:59:59 CLS Outpatient TOM VALLEJO APRN [facility] RAD DYSPNEA,EDEMA, SEPSIS,HX OF SMOKING [id number] 02/24/2018 11:38:00 02/24/2018 23:59:59 CLS Outpatient FANG MCMILLAN MD [facility] RAD RT URETERAL STONE [id number] 02/23/2018 07:23:00 02/23/2018 23:59:59 CLS Preadmit TOM VALLEJO APRN [facility] RT DYSPNEA,EDEMA [id number] 02/23/2018 07:22:00 02/23/2018 23:59:59 CLS Preadmit TOM VALLEJO APRN [facility] SLEEP SUSPECTED SLEEP APNEA,SLEEP DISORDER [id number] 02/14/2018 20:15:00 02/19/2018 13:35:00 DIS Inpatient NORRIS MCMAHON MD [facility] 4TH SEPTIC SHOCK, UTI [id number] 06/16/2016 14:48:00 06/16/2016 23:59:59 CLS Outpatient BRIDGETT GUEVARA MD [facility] LAB GROSS HEMATURIA, URINARY INCONTINENCE [id number] 02/26/2016 13:53:00 02/26/2016 23:59:59 CLS Outpatient BRIDGETT GUEVARA MD [facility] LAB PYURIA [id number] 03/11/2015 12:24:00 03/11/2015 23:59:59 CLS Outpatient DIANDRA IVEY DO [facility] RAD [id number] 02/13/2015 11:09:00 02/13/2015 12:17:00 DIS Outpatient BRIDGETT GUEVARA MD [facility] REHAB [id number] 12/27/2014 07:50:00 12/27/2014 23:59:59 CLS Outpatient BRIDGETT GUEVARA MD [facility] RAD [id number] 09/09/2014 06:54:00 09/09/2014 16:20:00 DIS Outpatient ANGÉLICA LEAVITT MD [facility] CATH [id number] 08/28/2014 09:21:00 08/28/2014 23:59:59 CLS Outpatient BRIDGETT GUEVARA MD [facility] RAD [id number] 07/09/2014 12:31:00 07/09/2014 14:13:00 DIS Emergency HUAN GRAY APRN [facility] ER [id number] 01/05/2018 17:11:00 Document Registration [id number] 07/10/2012 16:09:00 Document Registration [id number] 09/17/2011 06:52:00 Document Registration [id number] 09/16/2011 08:26:00 Document Registration [id number] 09/08/2011 11:11:00 Document Registration [id number] 10/09/2009 13:05:00 Document Registration [email or web address] 03/11/2015 15:28:34 ACT Document Registration
[2018-03-08 06:45] VITALS: BP 139/60
--- NOTE | 2018-03-08 07:03 | Progress Note-Pre Operative ---
Pre-Operative Progress Note H&P Reviewed The H&P was reviewed, patient examined and no changes noted. Date Seen by Provider: Mar 08, 2018 Time Seen by Provider: 07:02 Date H&P Reviewed: Mar 08, 2018 Time H&P Reviewed: 07:03 Pre-Operative Diagnosis: RT DISTAL URETERAL STONE FANG MCMILLAN MD Mar 08, 2018 7:03 am
[2018-03-08] MEDS ORDERED: cefTRIAXone 1 GM/10 ML for IV (ROCEPHIN) ONE (07:05)
[2018-03-08] MEDS ORDERED: NS (IVPB) 50 ML ONE (07:05)
--- NOTE | 2018-03-08 07:06 | Progress Note-Post Operative ---
Post-Operative Progess Note Surgeon (s)/Tumbler Drier Operator (s) Surgeon FANG MCMILLAN MD Tumbler Drier Operator: N/A Pre-Operative Diagnosis RT DISTAL URETERAL STONE Post-Operative Diagnosis SAME Procedure & Operative Findings Date of Procedure 03/08/18 Procedure Performed/Findings CYSTO WITH REMOVAL OF RT STENT, RT URETEROSCOPY WITH STONE BASKET Anesthesia Type GENERAL Estimated Blood Loss Estimated blood loss (mL): NONE Specimens/Packing Specimens Removed RT URETERAL STONE Packing: NONE FANG MCMILLAN MD Mar 08, 2018 7:06 am
[2018-03-08] MEDS ORDERED: fentaNYL INJECTION 100 MCG/2 ML AMP ONE (07:08)
[2018-03-08] MEDS ORDERED: LIDOCAINE PF 2% 2 ML (XYLOCAINE) VIAL ONE (07:32)
[2018-03-08] MEDS ORDERED: ROCURONIUM 10 MG/ML 5 ML SYRINGE IV ONE (07:32)
[2018-03-08] MEDS ORDERED: ONDANSETRON 4 MG/2 ML (SDV) Z0FRAN ONE (07:32)
[2018-03-08] MEDS ORDERED: PHENYLEPHRINE INJ 10 MG/ML (NEO-SYNEPHRINE 1%) ONE (07:32)
[2018-03-08] MEDS ORDERED: proPOfol 200 MG/20 ML (DIPRIVAN) VIAL IV ONE (07:32)
[2018-03-08] MEDS ORDERED: SEVOFLURANE (ULTANE) 15 ML INHAL SOLN ONE ×3 (07:33→08:08)
--- NOTE | 2018-03-08 07:38 | Diagnostic Imaging Report ---
INDICATION: Preop right kidney stone. FINDINGS: KUB. Double-J stent is present on the right appearing good position overlying the right renal shadow and the bladder. No definite calculi are seen along the path of the stent. There is gaseous distention of the bowel with moderate amount of stool throughout. IMPRESSION: Double-J stent present on the right. No definite calculi demonstrated. Dictated by: Dictated on workstation # [id number]
[2018-03-08] MEDS ORDERED: LACTATED RINGERS 1,000 ML IV PRN (07:40)
[2018-03-08] MEDS ORDERED: cefTRIAXone FOR IV USE 1,000 MG in NS (IVPB) 50 ML IV ONE (07:45)
[2018-03-08] MEDS ORDERED: GLYCOPYRROLATE 0.2 MG/ML (ROBINUL) 2 ML VIAL ONE (07:52)
[2018-03-08] MEDS ORDERED: NEOSTIGMINE 1 MG/ML 5 ML SYRINGE ONE (07:52)
[2018-03-08] MEDS ORDERED: PHENYLEPHRINE 100 MCG/ML 10 ML (ANESTHESIA) SYR ONE (07:56)
--- NOTE | 2018-03-08 08:07 | Discharge Inst-Urology ---
Discharge Inst-Urology Discharge Medications New, Converted, or Re-newed RX: RX on Chart Patient Instructions/Follow Up Plan Please make appointment to been seen in office in 4 weeks. Stone for analysis post seen by patient, family has it In 48 hours, if no bleeding, may resume ASA Increase oral fluids for 48 hours and then as needed. Diet and Activity as tolerated. If questions or concerns contact your physician Or seek help at emergency department. FANG MCMILLAN MD Mar 08, 2018 8:07 am
[2018-03-08] MEDS ORDERED: morphine INJ 10 MG/ML 1ML (SYR OR VIAL) IVP ONE (08:15)
[2018-03-08] MEDS ORDERED: ONDANSETRON 4 MG/2 ML (SDV) Z0FRAN IVP PRN (08:15)
[2018-03-08] MEDS ORDERED: MEPERIDINE (DEMEROL) INJ 50 MG/ML IVP ONE (08:15)
--- NOTE | 2018-03-08 08:24 | OPERATIVE REPORT ---
DATE OF SERVICE: 03/08/2018 PREOPERATIVE DIAGNOSIS: Right distal ureteral stone. POSTOPERATIVE DIAGNOSIS: Right distal ureteral stone. OPERATION PERFORMED: Cystoscopy, removal of right double-J stent and right ureteroscopy with stone basket. SURGEON: Dominic Mcmillan MD. ANESTHESIA: General. COMPLICATIONS: None. DESCRIPTION OF PROCEDURE: Under satisfactory general anesthesia, the patient in lithotomy position, genitalia were prepped and draped in the usual sterile fashion. The cystoscope was introduced under vision. The anterior urethra was normal. The prostate revealed enlargement of the lateral lobe meeting in the midline with the median bar causing bladder neck obstruction and trabeculation. We visualized the right ureteral orifice from which the stent was protruding. There was no foreign body, stone or bladder tumor. I went ahead and grasped the distal end of the stent with a grasping forceps and extracted completely. No stone came with it. I removed the cystoscope, inserted the 6.9 Turkish semirigid ureteroscope into the right ureteral orifice the stone that was floating and looking friable, so I went ahead and grasped it with the Davis basket. Part of it broke up as the main fragment was extracted completely. I went back with the ureteroscope to the mid ureter and lower proximal ureter. There were no further stones or significant fragments. The ureteroscope was removed. The cystoscope was reinserted to empty the bladder. The patient received 40 mg of Lasix at the end of the procedure. He tolerated the procedure and anesthesia well and was sent to recovery room in stable condition. Instructions were given to the family. Job ID: [id number] DocumentID: [id number] Dictated Date: 03/08/2018 08:09:21 Commercial Real Estate Attorney Date: 03/08/2018 08:24:06 Dictated By: DOMINIC MCMILLAN MD
--- NOTE | 2018-03-08 08:56 | Diagnostic Imaging Report ---
Indication: Fluoroscopy during ureteral stone basket procedure. Impression: Fluoroscopy provided for total of 1.[address] Khalil. No images were obtained. Dictated by: Dictated on workstation # [id number]
[2018-03-08 09:05] VITALS: BP 99/45
[2018-03-08] MEDS ORDERED: PHEN-640 PO (09:18)
[2018-03-08] MEDS ORDERED: CIPR-225 PO (09:18)
[2018-03-08 09:35] VITALS: BP 105/47
[2018-03-08 10:05] VITALS: BP 118/51
--- NOTE | 2018-03-08 11:31 | Anesthesia-General Post-Op ---
General Patient Condition Mental Status/LOC: Same as Preop Cardiovascular: Satisfactory Nausea/Vomiting: Absent Respiratory: Satisfactory Pain: Controlled Complications: Absent Post Op Complications Complications None Follow Up Care/Instructions Patient Instructions None needed. Anesthesia/Patient Condition Patient Condition Patient is doing well, no complaints, stable vital signs, no apparent adverse anesthesia problems. No complications reported per nursing. D/C home per [facility]: Yes HERIBERTO ROTH CRNA Mar 08, 2018 11:31
== END 2018-03-08 10:10 | disposition home or self-care (01) ==
LOC: SDC 06:23
PROVIDERS: ATTEND Urology
DX: N20.1 Calculus of ureter (principal); Z11.2 Encounter for screening for other bacterial diseases; N40.0 Benign prostatic hyperplasia without lower urinary tract symptoms; N32.81 Overactive bladder; R32 Unspecified urinary incontinence; E11.40 Type 2 diabetes mellitus with diabetic neuropathy, unspecified; I10 Essential (primary) hypertension; E78.5 Hyperlipidemia, unspecified; Z95.5 Presence of coronary angioplasty implant and graft; Z87.891 Personal history of nicotine dependence; K21.9 Gastro-esophageal reflux disease without esophagitis; E66.01 Morbid (severe) obesity due to excess calories; M10.9 Gout, unspecified; Z68.41 Body mass index [BMI] 40.0-44.9, adult; Z79.84 Long term (current) use of oral hypoglycemic drugs; Z79.82 Long term (current) use of aspirin; Z79.899 Other long term (current) drug therapy
CPT/HCPCS: 74018; 82962; 87081

== ENCOUNTER 2018-03-10 11:32 | Emergency (ER) | payer MEDICARE, OTHER ==
[~2018-03-10] VITALS: Ht 180.3 cm; Wt 97.5 kg
[~2018-03-10 11:32] MED LIST changes: +CIPR-225 PO; +PHEN-640 PO
--- OUTSIDE RECORDS SUMMARY | 2018-03-10 11:38 | XMS REPORT | Continuity of Care Document ---
Author Author [facility] Organization [facility] Address Unknown Phone Unavailable Allergies Active Description Code Type Severity Reaction Onset Reported/Identified Relationship to Patient Clinical Status Yes No Known Drug Allergies [id number] Drug Allergy Unknown N/A 09/17/2011 Medications There is no data. Problems Date Dx Coded Attending Type Code Diagnosis Diagnosed By 09/17/2011 Ot 211.1 09/17/2011 Ot 211.3 09/17/2011 Ot 535.40 09/17/2011 Ot 562.00 09/17/2011 Ot 562.10 09/17/2011 Ot 569.3 09/17/2011 Ot 783.21 09/17/2011 Ot 787.99 07/09/2014 HUAN GRAY DIAMOND WHEEL MOLDER Ot 599.0 07/09/2014 HUAN GRAY APRN Ot [...] ADULT 02/19/2018 NORRIS MCMAHON MD Ot Z79.4 FPC (CURRENT) USE OF INSULIN 02/19/2018 NORRIS MCMAHON MD Ot Z87.891 PERSONAL HISTORY OF NICOTINE DEPENDENCE 02/24/2018 TOM VALLEJO APRN Ot G47.9 SLEEP DISORDER, UNSPECIFIED 02/27/2018 TOM VALLEJO APRN Ot A41.9 SEPSIS, UNSPECIFIED ORGANISM 02/27/2018 TOM VALLEJO APRN Ot E66.01 MORBID (SEVERE) OBESITY DUE TO EXCESS CA 02/27/2018 TOM VALLEJO APRN Ot I25.10 ATHSCL HEART DISEASE OF [place] CORONARY 02/27/2018 TOM VALLEJO APRN Ot I51.7 [...] Procedures Code Description Performed By Performed On [id number] DILATION OF RIGHT URETER WITH INTRALUMIN 02/15/2018 Results Test Result Range Bacterial urine culture - 02/26/16 14:04 Bacterial urine culture [id number] NRG COLONY COUNT >100,000/ML NRG FTX;REPORTABLE SENSITIVITY [...] culture - 06/16/16 15:05 Bacterial urine culture [id number] NRG COLONY COUNT >100,000/ML NRG FTX;REPORTABLE SENSITIVITY [...] . NRG Bacterial blood culture SEE REPORT [facility] Bacterial susceptibility panel - 02/14/18 15:00 Gentamicin [...] culture - 02/14/18 15:05 Bacterial urine culture [id number] NRG COLONY COUNT >100,000/ML NRG FTX;REPORTABLE SUSCEPTIBILITY [...] 15:50 FREE TEXT EXTERNAL REFER TO CULTURE T05399 FOR SENSITIVITY NRG QUANTITY OF GROWTH . [...] measurement by glucometer (mass/volume) 185 mg/dL 70-110 Methicillin resistant Staphylococcus aureus (MRSA) screening culture - 06:45 Methicillin resistant Staphylococcus aureus (MRSA) screening culture NEG NRG Capillary blood glucose measurement by glucometer (mass/volume) - 03/08/18 07: 04 Capillary blood glucose measurement by glucometer (mass/volume) 141 mg/dL 70-110 Encounters ACCT No. Visit Date/Time Discharge Status Pt. Type Provider Facility Loc./Unit Complaint [id number] 02/24/2018 11:45:00 02/24/2018 23:59:59 CLS Outpatient TOM VALLEJO APRN [facility] RAD DYSPNEA,EDEMA, SEPSIS,HX OF SMOKING [id number] 02/24/2018 11:38:00 02/24/2018 23:59:59 CLS Outpatient FANG MCMILLAN MD [facility] RAD RT URETERAL STONE [id number] 02/23/2018 07:23:00 02/23/2018 23:59:59 CLS Preadmit TOM VALLEJO APRN [facility] RT DYSPNEA,EDEMA [id number] 02/23/2018 07:22:00 02/23/2018 23:59:59 CLS Preadmit TOM VALLEJO APRN [facility] SLEEP SUSPECTED SLEEP APNEA,SLEEP DISORDER [id number] 02/14/2018 20:15:00 02/19/2018 13:35:00 DIS Inpatient NORRIS MCMAHON MD [facility] 4TH SEPTIC SHOCK, UTI [id number] 06/16/2016 14:48:00 06/16/2016 23:59:59 CLS Outpatient BRIDGETT GUEVARA MD [facility] LAB GROSS HEMATURIA, URINARY INCONTINENCE [id number] 02/26/2016 13:53:00 02/26/2016 23:59:59 CLS Outpatient BRIDGETT GUEVARA MD [facility] LAB PYURIA [id number] 03/11/2015 12:24:00 03/11/2015 23:59:59 CLS Outpatient HEARNDON DO, DIANDRA Jo Ann [facility] RAD [id number] 02/13/2015 11:09:00 02/13/2015 12:17:00 DIS Outpatient BRIDGETT GUEVARA MD [facility] REHAB [id number] 12/27/2014 07:50:00 12/27/2014 23:59:59 CLS Outpatient BRIDGETT GUEVARA MD [facility] RAD [id number] 09/09/2014 06:54:00 09/09/2014 16:20:00 DIS Outpatient ANGÉLICA LEAVITT MD [facility] [id number] 08/28/2014 09:21:00 08/28/2014 23:59:59 CLS Outpatient BRIDGETT GUEVARA MD [facility] RAD [id number] 07/09/2014 12:31:00 07/09/2014 14:13:00 DIS Emergency HUAN GRAY APRN [facility] ER [id number] 03/08/2018 07:10:00 Document Registration [id number] 01/05/2018 17:11:00 Document Registration [id number] 07/10/2012 16:09:00 Document Registration [id number] 09/17/2011 06:52:00 Document Registration [id number] 09/16/2011 08:26:00 Document Registration [id number] 09/08/2011 11:11:00 Document Registration [id number] 10/09/2009 13:05:00 Document Registration [email or web address] 03/11/2015 15:28:34 ACT Document Registration
--- NOTE | 2018-03-10 12:13 | ED Headache ---
General Chief Complaint: Head/Cervical Problems Stated Complaint: HEAD PAIN Nursing Triage Note: PT TO ROOM #5 VIA ED WC BY ED STAFF. A&OX4. UPON ARRIVAL PT WEARING 3L NC HOME O2. C/O "PULSATING" PAIN TO UPPER RT HEAD FOR X3 DAYS. PT REPORTS PAIN TO BE INCREASING IN INTENSITY. PT NOTED TO HAVE BILAT LOWER EXTREMITIES WRAPPED BY HOME HEALTH NURSE RT EDEMA. Nursing Sepsis Screen: No Definite Risk Source: patient Exam Limitations: no limitations History of Present Illness Date Seen by Provider: Mar 10, 2018 Time Seen by Provider: 12:11 Initial Comments To ER with reports of a headache throbbing in nature for about 3 days. No known cause. No history of this. No vision changes no unilateral weakness or other neurologic symptoms, only a headache. He was recently in the hospital for kidney stone and had stent placed. He has not taken anything for the pain because he states the pain is not that bad, it's more of a throbbing sensation and he is only concerned about what may represent. He called his doctor's office today and his doctor is out of town so the nurse recommended he come to the emergency room for evaluation. He was taking Lyrica twice daily until last week at which point he started taking it only once in the evenings. His headache began 2 days after this. He is trying to stop taking Lyrica because he was told it can cause weight gain and he is having some issues with arthritis in his right knee and weight loss would be helpful. Timing/Duration: 1 week Severity/Quality: moderate Location: parietal Associated Symptoms: nausea/vomiting; No stiff neck Allergies and Home Medications Allergies Coded Allergies: No Known Drug Allergies (Unverified , 03/07/18) Home Medications Atenolol 50 Mg Tablet, 50 MG PO DAILY, (Reported) Atorvastatin Calcium 40 Mg Tablet, 40 MG PO DAILY, (Reported) Cephalexin 500 Mg Capsule, 500 MG PO TID Prescribed by: BRIDGETT GUEVARA on 02/17/181809 Ciprofloxacin HCl 500 Mg Tablet, 500 MG PO BID Prescribed by: DUSTIN RICHARDSON on 03/08/18917 Cyanocobalamin (Vitamin B-12) 1,000 Mcg Tablet, 1,000 MCG PO DAILY, (Reported) Desmopressin Acetate 0.2 Mg Tablet, 0.6 MG PO HS, (Reported) TAKES 3 (0.2MG) TABLETS Duloxetine HCl 60 Mg Capsule.dr, 60 MG PO DAILY, (Reported) Furosemide 40 Mg Tablet, 40 MG PO DAILY, (Reported) Gluc Beckham/Chondro Beckham A/Vit C/Mn 1 Each Tablet, 1 TAB PO DAILY, (Reported) Levothyroxine Sodium 50 Mcg Tablet, 50 MCG PO DAILY, (Reported) TAKE ALONG WITH 200MCG TABLET Levothyroxine Sodium 200 Mcg Tablet, 200 MCG PO DAILY, (Reported) LAST FILLED #90 08-22-17 TAKE ALONG WITH 50MCG TABLET Losartan Potassium 100 Mg Tablet, 100 MG PO DAILY, (Reported) Metformin HCl 1,000 Mg Tab.er.24, 1,000 MG PO BID WITH MEALS, (Reported) Mirabegron 50 Mg Tab.er.24h, 50 MG PO DAILY, (Reported) Mv-Mn/FA/Lycopene/Lut/Hb#178 1 Each Tablet, 1 TAB PO DAILY, (Reported) [place] 3 Polyunsat Fatty Acids 1,000 Mg Cap, 1,000 MG PO DAILY, (Reported) Pantoprazole Sodium 40 Mg Tablet.dr, 40 MG PO 1800, (Reported) Phenazopyridine HCl 200 Mg Tablet, 1 TAB PO TID Prescribed by: DUSTIN RICHARDSON on 03/08/18 0918 Potassium Chloride 8 Meq Tablet.er, 8 MEQ PO DAILY, (Reported) Pregabalin 75 Mg Capsule, 75 MG PO BID, (Reported) [place] Fruit 450 Mg Capsule, 450 MG PO DAILY, (Reported) Solifenacin Succinate 5 Mg Tablet, 5 MG PO DAILY, (Reported) Tamsulosin HCl 0.4 Mg Cap.er.24h, 0.4 MG PO 1800, (Reported) Zinc 50 Mg Tablet, 50 MG PO DAILY, (Reported) Patient Home Medication List Home Medication List Reviewed: Yes Review of Systems Review of Systems Constitutional: see HPI Eyes: No Symptoms Reported Ears, Nose, Mouth, Throat: no symptoms reported Respiratory: no symptoms reported Cardiovascular: no symptoms reported Musculoskeletal: no symptoms reported Skin: no symptoms reported Psychiatric/Neurological: See HPI, Headache Past Oangotn-Qqmmdq-Siztvi Hx Patient Social History Type Used: Cigarettes Former Smoker, Quit: Feb 22, 1994 Recent Foreign Travel: No Contact w/Someone Who Travel: No Recent Infectious Disease Expo: No Recent Hopitalizations: No Immunizations Up To Date Date of Pneumonia Vaccine: Feb 04, 2013 Date of Influenza Vaccine: Feb 20, 2018 Seasonal Allergies Seasonal Allergies: No Past Medical History Surgeries: Yes (BACK, NECK, HERNIA, GALLBLADDER, APPY, ) Appendectomy, Gallbladder Respiratory: No Cardiac: Yes (CARDIAC STENTS) High Cholesterol, Hypertension Neurological: Yes (R LEG NERVE DAMAGE) Reproductive Disorders: No Sexually Transmitted Disease: No HIV/AIDS: No Genitourinary: Yes Kidney Stones, UTI-Chronic Gastrointestinal: No Musculoskeletal: Yes Gout Endocrine: Yes Diabetes, Non-Insulin dep HEENT: Yes Cataract Cancer: No Psychosocial: No Integumentary: No Blood Disorders: No Adverse Reaction/Blood Tranf: No Physical Exam Vital Signs Vital Signs - First Documented 03/10/18 11:36 Temp 98.9 Pulse 62 Resp 18 B/P (MAP) 124/60 (81) Pulse Ox 95 O2 Delivery Nasal Cannula O2 Flow Rate 3.00 Capillary Refill : Less Than 3 Seconds Height, Weight, BMI Height: 5'11.00" Weight: 215lbs. 6.0oz. 97.723688dq; 44.0 BMI Method:Stated General Appearance: WD/WN, no apparent distress HEENT: PERRL/EOMI, normal ENT inspection Neck: non-tender, full range of motion Respiratory: no respiratory distress, no accessory muscle use Gastrointestinal: normal bowel sounds, non tender Extremities: normal range of motion, non-tender, pedal edema Psychiatric: alert, oriented x 3 Crainal Nerves: normal hearing, normal speech, PERRL Skin: normal color, warm/dry Progress/Results/Core Measures Results/Orders My Orders Orders - HUAN GRAY APRN Ct Head Wo (03/10/18 11:50) Vital Signs/I&O 03/10/18 11:36 Temp 98.9 Pulse 62 Resp 18 B/P (MAP) 124/60 (81) Pulse Ox 95 O2 Delivery Nasal Cannula O2 Flow Rate 3.00 Blood Pressure Mean: 81 Diagnostic Imaging Diagonstic Imaging: CT Plain Films/CT/US/NM/MRI: head Comments NAME: DIANDRA VO MED REC#: [id number] PT STATUS: REG ER : 1940 PHYSICIAN: HUAN GRAY APRN ADMIT DATE: 03/10/18/ER Draft Date of Exam:03/10/18 CT HEAD WO PROCEDURE: CT head without contrast. TECHNIQUE: Multiple contiguous axial images were obtained through the brain without the use of intravenous contrast. INDICATION: Headache. COMPARISON: None. FINDINGS: Moderate generalized cerebral and cerebellar parenchymal volume loss. No CT evidence of a territorial infarction. No intracranial hemorrhage, mass effect, hydrocephalus or extra-axial fluid collections. Osseous structures are intact. The visualized paranasal sinuses and mastoids are clear. IMPRESSION: No acute intracranial CT findings. Dictated on workstation # [id number] Dict: 03/10/18 1212 Trans: 03/10/18 1215 [id number] Interpreted by: JUHI OLIVAREZ MD Electronically signed by: Departure Communication (Admissions) Offered him pain medication, he declined stating it's really not pain. Impression Primary Impression: Medication withdrawal Disposition: 01 HOME, SELF-CARE Condition: Stable Departure-Patient Inst. Decision time for Depature: 12:44 Referrals: BRIDGETT GUEVARA MD (PCP/Family) Primary Care Physician Patient Instructions: Headache, Adult (DC), Prescription Drug Withdrawal (DC) Add. Discharge Instructions: 1. Headache is most likely the result of stopping the Lyrica. You can prolong the taper, continue taking it only once per day for the next week, then every 36 hours for a couple of doses then every 48 hours for a couple of doses. If The headache gets worse, you develop confusion, fevers or other concerns you should return to the emergency room. Copy Copies To 1: BRIDGETT GUEVARA MD, PETER J APRN Mar 10, 2018 12:13
[2018-03-10 12:58] VITALS: BP 124/60
== END 2018-03-10 13:00 | disposition home or self-care (01) ==
LOC: EDUNIT# 11:32 → ER 11:33
DX: F19.239 Other psychoactive substance dependence with withdrawal, unspecified (principal); R51 Headache; E78.00 Pure hypercholesterolemia, unspecified; I10 Essential (primary) hypertension; M10.9 Gout, unspecified; E11.9 Type 2 diabetes mellitus without complications; Z87.440 Personal history of urinary (tract) infections; Z95.5 Presence of coronary angioplasty implant and graft; Z87.442 Personal history of urinary calculi; Z96.0 Presence of urogenital implants; Z79.84 Long term (current) use of oral hypoglycemic drugs; Z87.891 Personal history of nicotine dependence; Z98.890 Other specified postprocedural states
CPT/HCPCS: 70450

== ENCOUNTER → 2018-03-20 | Outpatient (CLI) | payer MEDICARE, OTHER ==
[~2018-03-20] MED LIST changes: +RT-ALBUTEROL SULF 2.5 MG/3 ML PRE-MIX VIAL INH ONE
== END ==
LOC: RT 12:53
PROVIDERS: ATTEND Nurse Practitioner Family
DX: R06.00 Dyspnea, unspecified (principal); R60.9 Edema, unspecified; E66.01 Morbid (severe) obesity due to excess calories; Z68.41 Body mass index [BMI] 40.0-44.9, adult; Z87.891 Personal history of nicotine dependence
CPT/HCPCS: 94060; 94726; 94729

== ENCOUNTER 2018-03-21 21:06 | Outpatient (CLI) | payer MEDICARE, OTHER ==
[~2018-03-21 21:06] MED LIST changes: -RT-ALBUTEROL SULF 2.5 MG/3 ML PRE-MIX VIAL INH ONE
== END 2018-03-22 07:13 | disposition home or self-care (01) ==
LOC: SLEEP 21:06
PROVIDERS: ATTEND Nurse Practitioner Family
DX: G47.33 Obstructive sleep apnea (adult) (pediatric) (principal); G47.50 Parasomnia, unspecified; G47.10 Hypersomnia, unspecified; R09.02 Hypoxemia; G47.61 Periodic limb movement disorder
CPT/HCPCS: 95810

== ENCOUNTER → 2018-05-23 | Outpatient (CLI) | payer MEDICARE, OTHER ==
[~2018-05-23] MED LIST changes: -ZINC50TA31 PO; +ZINC50TA58 PO
--- NOTE | 2018-05-23 13:14 | Diagnostic Imaging Report ---
PROCEDURE: CT chest without contrast. TECHNIQUE: Multiple contiguous axial images were obtained through the chest without the use of intravenous contrast. INDICATION: Sepsis, shortness of breath, pneumonia. COMPARISON: 02/24/2018 FINDINGS: A few mildly prominent pathologically enlarged mediastinal lymph nodes are present. Heart size normal. There is however presence of a moderate scattered coronary artery calcification. Some calcification of the aortic valve is also present. Small amount of fluid within the esophagus. Small hiatal hernia suggested. Lung andrea relatively clear on followup. Mildly prominent interstitial markings are noted. No significant lobar consolidation. No significant effusions . Cholecystectomy clips are present. Multiple calcified granulomas within the spleen. Perinephric stranding present. Fatty atrophic change about the pancreas. Rather advanced degenerative change about the thoracic spine. Accentuated kyphotic curvature. Diffuse thin bridging osteophytes throughout the thoracic spine suggestive of ankylosing spondylitis. IMPRESSION: 1. No significant pulmonary consolidation or pneumonia on followup. 2. Small amount of fluid within the esophagus can be reflective of underlying esophageal dysmotility versus reflux disease. Dictated by: Dictated on workstation # [id number]
== END ==
LOC: RAD 11:17
PROVIDERS: ATTEND Nurse Practitioner Family
DX: A41.9 Sepsis, unspecified organism (principal); J98.11 Atelectasis; Z90.49 Acquired absence of other specified parts of digestive tract
CPT/HCPCS: 71250

== ENCOUNTER 2019-01-16 07:53 | Outpatient (CLI) | payer MEDICARE, OTHER ==
[~2019-01-16] VITALS: Ht 180.3 cm; Wt 129.0 kg
[~2019-01-16 07:53] MED LIST changes: +CYAN-41 PO; -CYAN10006 PO; -DESM0.2T2 PO; +DESM0.2T29 PO; -DULO60CA58 PO; +DULO60CA59 PO; +LOSA100T57 PO; -LOSA100T8 PO
[2019-01-16 08:14] VITALS: BP 102/56
[2019-01-16] MEDS ORDERED: TAMS0.4C98 PO (11:32)
[2019-01-16] MEDS ORDERED: ASPI-586 PO (11:32)
[2019-01-16] MEDS ORDERED: PREG150C PO (11:32)
[2019-01-16] MEDS ORDERED: SOLI5TAB7 PO (13:28)
== END 2019-01-16 09:00 | disposition home or self-care (01) ==
LOC: PREOP 07:53
PROVIDERS: ATTEND Orthopaedic Surgery
DX: Z01.818 Encounter for other preprocedural examination (principal); M17.11 Unilateral primary osteoarthritis, right knee
CPT/HCPCS: 87081

== ENCOUNTER → 2019-01-19 | Outpatient (CLI) | payer MEDICARE, OTHER ==
[~2019-01-19] VITALS: Ht 185.4 cm; Wt 128.8 kg
[~2019-01-19] MED LIST changes: +ASPI-586 PO; +CATHETER FLUSH 10 ML SYR IV PRN; +PREG150C PO; +REGADENOSON 0.4 MG/5 ML SYR (LEXISCAN) IV ONE; +SOLI5TAB7 PO; +TAMS0.4C98 PO
--- NOTE | 2019-01-22 16:34 | STRESS TEST ---
DATE OF SERVICE: 01/18/2019 RESTING AND POST REGADENOSON TECHNETIUM-99M TETROFOSMIN SPECT CT IMAGING ORDERING PHYSICIAN: Josh Giraldo MD, JONATHAN, FACP, FACC. PRIMARY CARE PHYSICIAN: Dr. Bach. CLINICAL DIAGNOSES: Shortness of breath, aortic stenosis, coronary artery disease. Baseline images were carried out after injection of 10.36 mCi of technetium-99m Tetrofosmin. This was followed by 0.4 mg regadenoson and 28.8 mCi of technetium-99m Tetrofosmin for stress imaging. The electrocardiogram showed sinus rhythm with subtle, nonspecific ST abnormality. The electrocardiogram did not change significantly with regadenoson infusion. The patient tolerated the procedure well. Review of images at rest and following stress does not indicate any significant perfusion defects consistent with significant myocardial ischemia or infarction. Gated images show normal to hyperdynamic left ventricular systolic function. Left ventricular ejection fraction is calculated to be 91%. Left ventricular end diastolic volume is 53 mL. TID is absent (1.04). CONCLUSIONS: 1. No evidence of any significant myocardial ischemia or infarction on this study. 2. Normal to hyperdynamic left ventricular systolic function with a calculated ejection fraction of 91%. Job ID: [id number] DocumentID: [id number] Dictated Date: 01/22/2019 11:39:27 Acupressurist Date: 01/22/2019 15:02:47 Dictated By: JOSH GIRALDO MD, MA, FACP, FACC,
== END ==
LOC: CARD 06:52
PROVIDERS: ATTEND Internal Medicine Cardiovascular Disease
DX: I35.0 Nonrheumatic aortic (valve) stenosis (principal); I51.7 Cardiomegaly; G47.33 Obstructive sleep apnea (adult) (pediatric); I25.10 Atherosclerotic heart disease of native coronary artery without angina pectoris
CPT/HCPCS: 78452; 93017; 93306

== ENCOUNTER 2019-01-23 08:28 | Inpatient (IN) | payer MEDICARE, OTHER ==
--- NOTE | 2019-01-16 13:28 | NUR ---
REVIEWED MED REC IT WAS REPORTED IN PREOP. I COMPARED IT WITH THE EXT MED HX. PREOP NURSE REMOVED ATENOLOL THAT WAS RECENTLY FILLED STATING PATIENT IS NO LONGER TAKING. OTC MEDICATIONS: ASPIRIN 81MG DAILY B 12 DAILY GLUCOSAMINE AND CHONDROITIN DAILY MTV DAILY FISH OIL DAILY SAW PALMETTO DAILY ZINC DAILY
[2019-01-23] VITALS (12 sets, daily range): BP systolic 94–140; BP diastolic 50–83
[~2019-01-23] VITALS: Ht 185.4 cm; Wt 128.8 kg
[~2019-01-23 08:28] MED LIST changes: -CATHETER FLUSH 10 ML SYR IV PRN; -REGADENOSON 0.4 MG/5 ML SYR (LEXISCAN) IV ONE
[2019-01-23] MEDS ORDERED: LACTATED RINGERS 1,000 ML IV PRN (08:34)
[2019-01-23] MEDS ORDERED: ceFAZolin INJECTION 3,000 MG in NS (IVPB) 100 ML IV ONE (08:45)
[2019-01-23] MEDS ORDERED: ONDANSETRON 4 MG/2 ML (SDV) Z0FRAN IVP ONE (08:45)
[2019-01-23] MEDS ORDERED: GABAPENTIN 600 MG (NEURONTIN) TAB PO ONE (08:45)
[2019-01-23] MEDS ORDERED: CELECOXIB 100 MG (CeleBREX) CAP PO ONE ×2 (08:45→09:02)
[2019-01-23] MEDS ORDERED: BUPIVACAINE 0.25% 30 ML (SENSORCAINE) VIAL ONE ×2 (08:55→08:56)
[2019-01-23] MEDS ORDERED: MIDAZOLAM 2 MG/2 ML (VERSED) VIAL ONE (08:56)
[2019-01-23] MEDS ORDERED: LIDOCAINE PF 2% 5 ML (XYLOCAINE) VIAL ONE ×3 (09:00→12:59)
[2019-01-23] MEDS ORDERED: ONDANSETRON 4 MG/2 ML (SDV) Z0FRAN ONE (09:02)
[2019-01-23] MEDS ORDERED: GABAPENTIN 600 MG (NEURONTIN) TAB ONE (09:02)
[2019-01-23] MEDS ORDERED: GENTAMICIN 40 MG/ML 2 ML INJ SDV ONE (09:43)
[2019-01-23] MEDS ORDERED: NEO/POLY/BAC (NEOSPORIN) OINT 15 GM TUBE ONE (09:43)
[2019-01-23] MEDS ORDERED: proPOfol 200 MG/20 ML (DIPRIVAN) VIAL IV ONE (09:48)
[2019-01-23] MEDS ORDERED: SEVOFLURANE (ULTANE) 15 ML INHAL SOLN ONE ×8 (09:48→12:54)
[2019-01-23] MEDS ORDERED: fentaNYL INJECTION 100 MCG/2 ML AMP ONE ×2 (09:48→12:10)
[2019-01-23] MEDS ORDERED: INTRA-ARTICULAR IU ONE ×4 (10:30)
--- NOTE | 2019-01-23 10:39 | Progress Note-Pre Operative ---
Pre-Operative Progress Note H&P Reviewed The H&P was reviewed, patient examined and no changes noted. Date Seen by Provider: Jan 23, 2019 Time Seen by Provider: 10:15 Date H&P Reviewed: Jan 23, 2019 Time H&P Reviewed: 10:15 Pre-Operative Diagnosis: Primary Osteoarthritis Right Knee STARR LR DO Jan 23, 2019 10:39
[2019-01-23] MEDS ORDERED: BACLOFEN 10 MG (LIORESAL) TAB PO PRN (11:00)
[2019-01-23] MEDS ORDERED: diphenhydrAMINE 50 MG/ML INJ (BENADRYL) IV PRN (11:00)
[2019-01-23] MEDS ORDERED: D5 1/2 NS 1000 ML IV SOLUTION 1,000 ML IV SCH (11:00)
--- NOTE | 2019-01-23 13:14 | Progress Note-Post Operative ---
Post-Operative Progess Note Surgeon (s)/Salvage Mend Worker (s) Surgeon STARR LR DO Salvage Mend Worker: Forrest Knight [facility] Pre-Operative Diagnosis Primary Osteoarthritis Right Knee Post-Operative Diagnosis same Procedure & Operative Findings Date of Procedure 01/23/19 Procedure Performed/Findings Right Total Knee Replacement Anesthesia Type General with femoral and IPACKS nerve block Estimated Blood Loss Estimated blood loss (mL): 150 ml Specimens/Packing Specimens Removed none STARR LR DO Jan 23, 2019 13:14
[2019-01-23] MEDS ORDERED: morphine INJ 10 MG/ML 1ML (SYR OR VIAL) IVP ONE (13:15)
[2019-01-23] MEDS ORDERED: ONDANSETRON 4 MG/2 ML (SDV) Z0FRAN IVP PRN (13:15)
[2019-01-23] MEDS ORDERED: HYDROmorphone 2 MG/ML VIAL (DILAUDID) IV ONE (13:15)
[2019-01-23] MEDS ORDERED: morphine INJ 4 MG/ML 1 ML (VIAL/SYRINGE) IVP PRN ×2 (13:30→17:30)
[2019-01-23] MEDS ORDERED: morphine INJ 10 MG/ML 1ML (SYR OR VIAL) ONE (13:48)
--- NOTE | 2019-01-23 14:54 | Diagnostic Imaging Report ---
INDICATION: Postop right knee. TIME OF EXAMINATION: 1:34 PM. FINDINGS: Two views of the right knee demonstrate postop changes of total knee arthroplasty. The prosthetic elements are in good position without fracture or loosening. Overlying skin alonso are noted. IMPRESSION: Satisfactory postop appearance to the right knee. Dictated by: Dictated on workstation # [id number]
--- NOTE | 2019-01-23 16:23 | NUR ---
DIANDRA VO admitted to room 428-1, with an admitting diagnosis of post op right knee repair, on 01/23/19 from via PACU, accompanied by staff and family.DIANDRA VO introduced to surroundings, call light, bed controls, phone, TV, temperature control, lights, meal times, smoking policy, visitor policy, side rail policy, bathrooms and showers. DIANDRA VO verbalizes understanding that [facility] is not responsible for the loss or damage to any personal effects or valuables that are kept in the patients posession during their hospitalization. DIANDRA VO verbalizes understanding of Interdisciplinary Patient Education. Patient and family were informed about the Rapid Response Team and its purpose.
--- NOTE | 2019-01-23 16:39 | OPERATIVE REPORT ---
DATE OF SERVICE: 01/23/2019 PREOPERATIVE DIAGNOSIS: Primary osteoarthritis, right knee. POSTOPERATIVE DIAGNOSIS: Primary osteoarthritis, right knee. PROCEDURE PERFORMED: Right total knee arthroplasty. SURGEON: Starr Lr DO RECRUIT INSTRUCTOR: ZACK Logan. SURGICAL STOCK SHEETS CLEANER INSPECTOR DUTIES: Forrest Knight, surgical assistant was utilized throughout the entire procedure for patient positioning, soft tissue retraction, assistance in placement of total knee implants, wound closure, dressing application and the patient transfer. ANESTHESIA: General with femoral and IPACKS nerve block. ESTIMATED BLOOD LOSS: 150 mL. OPERATIVE TIME: Please see anesthesia report. COMPLICATIONS: None. INDICATIONS AND FINDINGS: The patient is an 78-year-old male seen with chief complaint of persistent right knee pain nonresponsive to conservative treatment. The patient was only able to ambulate from his wheelchair to the toilet. X-rays reveal collapse of the medial and patellofemoral compartment. The patient lacked 15 degrees of full extension of the right knee. The patient was taken to surgery where a total knee arthroplasty was performed on the right without complication utilizing the Biomet MolecuLightguard total knee system with a pressfit 75 mm femoral component and 83 mm cemented fixed I-beam tibial component, a 12 mm anterior stabilized tibial bearing implant, a 34 mm 3-pronged all polyethylene cemented thin patellar component. Palacos bone cement was utilized. PROCEDURE IN DETAIL: The patient was seen by anesthesia and under ultrasound guidance, a femoral and an IPACKS nerve block was performed on the right to decrease postoperative pain and decrease the amount of medication required during the surgical procedure. The patient was transferred to the operating room where general inhalation anesthetic was administered. A well-padded pneumatic tourniquet was placed about the upper aspect of the right thigh. A ChloraPrep and sterile drape of the right lower extremity was performed. The right leg was elevated, exsanguinated and the tourniquet inflated to 300 mmHg pressure. An anterior longitudinal midline incision was made. The incision was deepened through a medial parapatellar incision. The patient had significant hypertrophic synovium and fibrin debris within the knee. Osteophytes from the distal femur were removed with a bone rongeur. A private pilot hole was then drilled in the distal femur and intramedullary marina was inserted using a 5-degree distal femoral cutting guide. The cutting guide was assembled and a distal femoral osteotomy was completed. The distal femur was sized to a 75 mm femoral component. A 4-way cutting guide was assembled. Anterior and posterior chamfer cuts were made. The tibia was subluxed anteriorly. Remnants of the medial and lateral menisci were excised. A private pilot hole was then developed in the proximal tibia and an intramedullary marina was inserted. Measuring off the exposed bone over the proximal medial tibia, a proximal tibial cutting guide was assembled and the proximal tibial osteotomy was completed. Subperiosteal dissection was performed over the proximal medial tibia and osteophytes over the medial tibial plateau were removed. The patient continued to demonstrate a lack of full extension with a provisional gap sizer. Additional mm of bone was removed from the proximal tibia. An additional mm of bone was removed from the distal femur through the cutting guide and additional chamfer cuts were made. The knee could then be fully extended with no instability. Osteophytes were removed from the rim of the patella with a bone rongeur. The posterior aspect of patella was resected through a cutting guide and drilled through the drill guide. Provisional components were inserted. The knee was cycled through a range of motion. Rotation of the tibial component was noted and marked on the proximal tibia. The proximal tibia was then broached to accept the I-beam stem portion of the implant. The bony surfaces were irrigated extensively with normal saline solution. Palacos bone cement was then mixed. This was pressurized in the proximal tibia and the tibial component was cemented in place. The femoral component was pressfit into place. The knee was taken into full extension with a provisional tibial bearing implant. The patellar component was cemented in place and held with a clamp. Excess cement was removed. The cement was allowed to set. During this process, the tourniquet was released. Hemostasis was obtained with electrocautery. The knee was irrigated throughout the procedure with normal saline solution containing gentamicin. A 12 mm anterior stabilized tibial bearing implant was then inserted and locked anteriorly with a locking bar. The knee was checked for stability. No instability on full flexion, midrange flexion was noted with full extension obtained. The knee was placed in 90 degrees of flexion. The medial retinaculum was closed with multiple interrupted vjkzpi-[id number]-lpeoy sutures of #1 Vicryl, reinforced with a running suture of #1 Stratafix. The subcutaneous tissues were closed in layers with 0 and 2-0 Vicryl suture. The skin was closed with stainless steel alonso and Adaptic Neosporin bulky dressing was placed about the knee. The patient was awakened and was transported to postoperative recovery with anesthesia personnel present in satisfactory condition. Job ID: [id number] DocumentID: [id number] Dictated Date: 01/23/2019 13:20:44 Printing Plate Clerk Date: 01/23/2019 16:38:59 Dictated By: STARR LR DO
--- NOTE | 2019-01-23 16:41 | Consultation - Hospitalist ---
HPI History of Present Illness: HPI/Chief Complaint Ilia Barbour is an 78-year-old male with past medical history of essential hypertension, type II diabetes mellitus, hypothyroidism, BPH, osteoarthritis, who presented for a right total knee replacement. He reports that he is feeling well postoperatively. He says that his pain is well-controlled with his current pain regimen. He denies any fevers, chills, chest pain, dyspnea, abdominal pain, nausea, vomiting, diarrhea. Source: patient, family Exam Limitations: no limitations Date Seen 01/23/19 Attending Physician Alejandro Byrnes DO PCP Mirza Bach MD Referring Physician Date of Admission Jan 23, 2019 at 08:28 Home Medications & Allergies Home Medications Reviewed patient Home Medication Reconciliation performed by pharmacy medication reconciliations sound technician and/or nursing. Patients Allergies have been reviewed. Allergies Allergies Coded Allergies No Known Drug Allergies (Lusxscylxo35/2/18) Past Qzntvco-Ootmzo-Ljwsjj Hx Past Med/Social Hx: Reviewed Nursing Past Med/Soc Hx Patient Social History Alcohol Use: Denies Use Recreational Drug Use: No Former Smoker, Quit: Feb 22, 1994 Type Used: Cigarettes 2nd Hand Smoke Exposure: No Physical Abuse Screen: No Sexual Abuse: No Recent Foreign Travel: No Contact w/other who traveled: No Recent Hopitalizations: No Recent Infectious Disease Expo: No Immunizations Up To Date Date of Pneumonia Vaccine: Feb 04, 2013 Date of Influenza Vaccine: Feb 20, 2018 Seasonal Allergies Seasonal Allergies: No Past Medical History Surgeries: Appendectomy, Gallbladder Currently Using CPAP: No Cardiac: High Cholesterol, Hypertension Aortic stenosis as I recall not critical or severe Reproductive: No Sexually Transmitted Disease: No HIV/AIDS: No Genitourinary: Kidney Stones, UTI-Chronic Gastrointestinal: Gastroesophageal Reflux, Chronic Constipation Musculoskeletal: Arthritis, Gout Endocrine: Diabetes, Non-Insulin dep HEENT: Cataract History of Blood Disorders: No Adverse Reaction to Blood Ventura: No Family History Alcoholism 19 FATHER Completed stroke 19 MOTHER Diabetes mellitus 19 MOTHER G8 SISTER FH: pancreatic cancer G8 BROTHER Review of Systems Constitutional: no symptoms reported EENTM: no symptoms reported Respiratory: no symptoms reported Cardiovascular: no symptoms reported Gastrointestinal: no symptoms reported Genitourinary: no symptoms reported Musculoskeletal: no symptoms reported Skin: no symptoms reported Psychiatric/Neurological: No Symptoms Reported Physical Exam Physical Exam Vital Signs Vital Signs - First Documented 01/23/19 08:55 Temp 97.7 Pulse 90 Resp 18 B/P (MAP) 127/68 Pulse Ox 94 O2 Delivery Room Air Capillary Refill : Less Than 3 Seconds Height, Weight, BMI Height: 6'1.00" Weight: 284lbs. 0.0oz. 128.067907op; 37.5 BMI Method:Stated General Appearance: No Apparent Distress, WD/WN, Obese Neck: Normal Inspection, Supple Respiratory: Lungs Clear, Normal Breath Sounds, No Respiratory Distress Cardiovascular: Regular Rate, Rhythm, Systolic Murmur Gastrointestinal: Normal Bowel Sounds, Non Tender, Soft Extremity: Pedal Edema, Other (Right knee wrapped) Neurologic/Psychiatric: Alert, No Motor/Sensory Deficits; No Disoriented Skin: Normal Color, Warm/Dry Lymphatic: No Adenopathy Results Results/Procedures Labs Patient resulted labs reviewed. Imaging: Reviewed Imaging Report Assessment/Plan Assessment and Plan Assess & Plan/Chief Complaint Total knee replacement Osteoarthritis Status post total knee replacement 01/[address] Byrnes Pain regimen ordered Bowel regimen added Incentive spirometer encouraged PT/OT Essential hypertension Blood pressure well-controlled this time Home losartan ordered Hyperlipidemia Continue statin BPH Continue tamsulosin Place Anguiano overnight due to urinary retention Reassess and likely remove Anguiano tomorrow morning Type II diabetes mellitus Hold home metformin Sliding scale insulin added Accu-Cheks before meals and at bedtime Hypothyroidism Continue levothyroxine Diagnosis/Problems Diagnosis/Problems (1) Total knee replacement status Status: Acute (2) Essential hypertension Status: Chronic (3) Type II diabetes mellitus Status: Chronic Qualifiers: Diabetes mellitus superintendent terminal insulin use: without superintendent terminal use (4) Hypothyroidism Status: Chronic (5) BPH (benign prostatic hyperplasia) Status: Chronic (6) Primary osteoarthritis of right knee Status: Chronic Clinical Quality Measures DVT/VTE Risk/Contraindication: Risk Factor Score Per Nursin RFS Level Per Nursing on Admit: 4+=Very High NAREN MCMAHON MD Jan 23, 2019 16:41
[2019-01-23] MEDS ORDERED: LIDOCAINE UROJET 2% GEL 10 ML PKG TOP NR (16:45)
--- NOTE | 2019-01-23 17:43 | NUR ---
family requesting catheter. bladder scan showed 410. Dr mesa present and stated Anguiano insertion was okay
[2019-01-23] MEDS: ceFAZolin 2 GM IV Premixed 50 ML IV SCH (17:52)
[2019-01-23] MEDS ORDERED: ENOXAPARIN 30 MG/0.3 ML (LOVENOX) SYR SC SCH (18:00)
[2019-01-23] MEDS ORDERED: TAMSULOSIN 0.4 MG (FLOMAX) CAP PO SCH (18:00)
[2019-01-23] MEDS ORDERED: SOLIFENACIN 5 MG TAB (VESICARE) NON-FORMULARY PO SCH (18:00)
[2019-01-23] MEDS ORDERED: ENOXAPARIN 40 MG/0.4 ML (LOVENOX) SYR SC SCH (18:00)
[2019-01-23] MEDS ORDERED: PANTOPRAZOLE 40 MG (PROTONIX) TAB PO SCH (18:00)
[2019-01-23] MEDS: inSUlin ASPART (NovoLOG) 1 UNIT/0.01 ML (CHARGE PER UNIT) SC SCH (22:29)
[2019-01-23] MEDS: PREGABALIN 150 MG (LYRICA) CAPSULE PO SCH (22:52)
[2019-01-23] MEDS: HYDROcodone/APAP 10 MG/325 MG (LORTAB) TAB PO PRN (22:57)
[2019-01-24] VITALS: BP 99/62
[2019-01-24] MEDS: ceFAZolin 2 GM IV Premixed 50 ML IV SCH (01:54)
[2019-01-24 04:25] VITALS: BP 101/58
[2019-01-24] MEDS: inSUlin ASPART (NovoLOG) 1 UNIT/0.01 ML (CHARGE PER UNIT) SC SCH ×2 (05:22→12:25)
[2019-01-24 05:41] LABS: HEMOGLOBIN 10.6 G/DL (13.3-17.7); MEAN PLATELET VOLUME 10.6 FL (7.4-10.4); RED CELL DISTRIBUTION WIDTH 16.6 % (10.0-14.5); WHITE BLOOD COUNT 8.2 10^3/uL (4.3-11.0)
[2019-01-24 05:54] LABS: BUN/CREATININE RATIO 29; CALCIUM 9.1 MG/DL (8.5-10.1); CARBON DIOXIDE 24 MMOL/L (21-32); CHLORIDE 100 MMOL/L (98-107); CREATININE SERUM 0.82 MG/DL (0.60-1.30); GFR ESTIMATED > 60; GLUCOSE 136 MG/DL (70-105); POTASSIUM 4.2 MMOL/L (3.6-5.0); SODIUM 136 MMOL/L (135-145)
[2019-01-24] MEDS ORDERED: TROSPIUM 20 MG (SANCTURA) TAB PO SCH (06:00)
[2019-01-24] MEDS ORDERED: LEVOTHYROXINE 50 MCG (LEVOTHROID) TAB PO SCH (06:30)
--- NOTE | 2019-01-24 07:51 | Progress Note ---
Subjective Date Seen by a Provider: Jan 24, 2019 Time Seen by a Provider: 07:48 Subjective/Events-last exam complains of moderate to severe pain at this time, There is no beni hose to RLE and polar care straps are digging into posterior knee, no other complaints. Objective Exam Vital Signs Date Time Temp Pulse Resp B/P (MAP) Pulse Ox O2 Delivery O2 Flow Rate FiO2 01/24/19 04:25 98.1 85 19 101/58 (72) 97 Nasal Cannula 6.00 01/24/19 03:49 97 Nasal Cannula 3.00 01/24/19 00:00 97.3 79 20 99/62 (74) 99 Nasal Cannula 6.00 01/23/19 21:00 OxyMask 6.00 01/23/19 20:13 97.0 83 18 94/54 (67) 98 Nasal Cannula 6.00 01/23/19 20:00 100 Nasal Cannula 3.00 01/23/19 16:30 92 Nasal Cannula 6.00 01/23/19 16:00 97.8 93 14 98/54 (69) 96 OxyMask 6.00 01/23/19 15:45 95 OxyMask 6.00 01/23/19 14:40 16 96 OxyMask 6 01/23/19 14:39 OxyMask 6 01/23/19 14:30 16 97 OxyMask 01/23/19 14:20 OxyMask 6 01/23/19 14:20 98.0 9 97 OxyMask 6 01/23/19 14:10 9 97 OxyMask 6 01/23/19 14:07 OxyMask 10 01/23/19 14:00 16 94 OxyMask 6 01/23/19 13:55 OxyMask 10 01/23/19 13:50 13 96 OxyMask 10 01/23/19 13:40 22 95 OxyMask 10 01/23/19 13:40 OxyMask 10 01/23/19 13:30 14 91 OxyMask 10 01/23/19 13:23 OxyMask 10 01/23/19 13:23 98.9 16 93 OxyMask 10 01/23/19 09:00 OxyMask 6.00 01/23/19 08:55 97.7 90 18 127/68 94 Room Air I & O 01/24/19 07:00 Intake Total 1970 ml Output Total 1225 ml Balance 745 ml Capillary Refill : Less Than 3 Seconds General Appearance: No Apparent Distress Extremity: Normal Capillary Refill, Normal Inspection, No Calf Tenderness, Pedal Edema Neurologic/Psychiatric: Alert, Oriented x3, Normal Mood/Affect Skin: Normal Color, Warm/Dry (dressing right knee CDI, bilat pedal edema with decreased sensation due to peripheral neuropathy noted. unchanged) Results Lab Laboratory Tests 01/23/19 08:45: Glucometer 123H 01/23/19 21:47: Glucometer 198H 01/24/19 04:45: White Blood Count 8.2, Red Blood Count 3.83L, Hemoglobin 10.6L, Hematocrit 34L, Mean Corpuscular Volume 88, Mean Corpuscular Hemoglobin 28, Mean Corpuscular Hemoglobin Concent 32, Red Cell Distribution Width 16.6H, Platelet Count 232, Mean Platelet Volume 10.6H 01/24/19 05:10: Sodium Level 136, Potassium Level 4.2, Chloride Level 100, Carbon Dioxide Level 24, Anion Gap 12, Blood Urea Nitrogen 24H, Creatinine 0.82, Estimat Glomerular Filtration Rate > 60, BUN/Creatinine Ratio 29, Glucose Level 136H, Calcium Level 9.1 01/24/19 05:22: Glucometer 122H Assessment/Plan Assessment/Plan Assess & Plan/Chief Complaint A: s/p right TKA primary OA right knee P: continue current treatment, start therapy and CPM today, work to control pain, see orders for pain meds. Plan to discharge tuesday to skilled or rehab. ancillary services manager consulted. Clinical Quality Measures DVT/VTE Risk/Contraindication: Risk Factor Score Per Nursin RFS Level Per Nursing on Admit: 4+=Very High TASH ENGLAND APRN Jan 24, 2019 07:51
[2019-01-24 08:00] VITALS: BP 140/63
[2019-01-24] MEDS: PREGABALIN 150 MG (LYRICA) CAPSULE PO SCH (08:17)
[2019-01-24] MEDS ORDERED: LOSARTAN 100 MG (COZAAR) TABLET PO SCH (09:00)
[2019-01-24] MEDS ORDERED: FUROSEMIDE 40 MG (LASIX) TAB PO SCH (09:00)
[2019-01-24] MEDS ORDERED: ASPIRIN 81 MG CHEW (CHILDREN'S ASA) PO SCH (09:00)
--- NOTE | 2019-01-24 10:09 | Physical Therapy Evaluation ---
PT Evaluation-General Medical Diagnosis Admission Date Jan 23, 2019 at 08:28 Medical Diagnosis: right TKA Onset Date: Jan 23, 2019 Therapy Diagnosis Therapy Diagnosis: impaired mobility, strength, endurance, ROM Height/Weight Height (Feet): 6 Height (Inches): 1.00 Weight (Pounds): 284 Weight (Ounces): 0.0 Precautions Precautions/Isolations: Fall Prevention, Standard Precautions Weight Bear Status Right Lower Extremity: Right Full Weight Bearing Left Lower Extremity: Left Full Weight Bearing Referral Physician: Forrest Knight Reason for Referral: Evaluation/Treatment Medical History Pertinent Medical History: CAD, DM, HTN Additional Medical History Past Medical History Surgeries: Appendectomy, Gallbladder Currently Using CPAP: No Cardiac: High Cholesterol, Hypertension Aortic stenosis as I recall not critical or severe Reproductive: No Sexually Transmitted Disease: No HIV/AIDS: No Genitourinary: Kidney Stones, UTI-Chronic Gastrointestinal: Gastroesophageal Reflux, Chronic Constipation Musculoskeletal: Arthritis, Gout Endocrine: Diabetes, Non-Insulin dep HEENT: Cataract History of Blood Disorders: No Adverse Reaction to Blood Ventura: No Reviewed History: Yes Social History Home: Single Level Current Living Status: Spouse Prior/Core [facility] Prior Level of Function Therapy Code Descriptions/Definitions Functional Raven Measure: 0=Not Assessed/NA 4=Minimal Assistance 1=Total Assistance 5=Supervision or Setup 2=Maximal Assistance 6=Modified Raven 3=Moderate Assistance 7=Complete Raven Therapy Quality Codes: 6 Independent with activity with or without an assistive device 5 Patient requires set up or clean up by helper. Patient completes activity by themselves 4 Supervision or touching assist (CGA). [place] provide cues , steadying assist 3 The helper provides less than half the effort to complete the activity 2 The helper provides more than half the effort to complete the activity 1 Dependent. The helper does all the effort to complete an activity 7 Patient refused to complete or attempt activity 9 The patient did not perform the activity before the current illness or injury 88 Not attempted due to Medical conditions or safety concerns Functional Abilities and Goals: Independent: Patient completed the activities by him/herself, with or without an assistive device, with no assistance from a helper. Needed Some Help: Patient needed partial assistance from another person to complete activities. Dependent: A helper completed the activities for the patient. Unknown: Not Applicable: Bed Mobility: 6 Transfers (B,C,W/C) (FIM): 6 Patient was performing transfers on his own but only ambulating a few feet using a rolling walker. PT Evaluation-Current Subjective Patient in bed pre tx, agrees to PT, has 3/10 pain in his right leg but not any in his knee. Patient has numbness just below his knee. Pt/Family Goals to be independent at home Objective Patient Orientation: Person, Place, Situation Attachments: Anguiano Catheter ROM/Strength ROM Lower Extremities right knee extension +2 degrees, flexion 50 degrees Sensory Vision: Wears Glasses Hearing: Functional Sensation Right Lower Extremit: Impaired Sensation Left Lower Extremity: Impaired Transfers Therapy Code Descriptions/Definitions Functional Raven Measure: 0=Not Assessed/NA 4=Minimal Assistance 1=Total Assistance 5=Supervision or Setup 2=Maximal Assistance 6=Modified Raven 3=Moderate Assistance 7=Complete Raven Transfers (B, C, W/C) (FIM): 2 Scootin Rollin Supine to/from Sit: 2 Sit to/from Stand: 2 Patient was able to stand at the edge of the bed for just a few seconds, his right leg could not bear any weight, just perfecto. Balance Sitting Static: Normal Sitting Dynamic: Normal Standing Static: Poor Standing Dynamic: Poor Treatment Supine TKA protocol x10 (AP, QS, HS, SAQ, SLR), cpm donned and set to leg and set to 45/-2, patient in bed post tx with nurse call, phone, tray, all needs met, family in the room. Assessment/Needs Patient has impaired mobility, strength, endurance, ROM. Patient is not able to bear weight on his right leg yet. Rehab Potential: Guarded PT Short Term Goals Short Term Goals Time Frame: Jan 31, 2019 Transfers (B,C,W/C) (FIM): 4 Gait (FIM): 1 Gait Distance Comment: 5' Gait Level of Assist: 4 Gait Assistive Device: FWW PT Plan Problem List Problem List: Activity Tolerance, Functional Strength, Safety, Balance, Gait, Transfer, Bed Mobility, ROM Treatment/Plan Treatment Plan: Continue Plan of Care Treatment Plan: Bed Mobility, Concurrent Therapy, Education, Functional Activity Glenn, Functional Strength, Gait, Safety, Therapeutic Exercise, Transfers Treatment Duration: Jan 31, 2019 Frequency: 11 times per week Estimated Hrs Per Day: .25 hour per day Patient and/or Family Agrees t: Yes Safety Risks/Education Patient Education: Transfer Techniques, Correct Positioning, Safety Issues Teaching Recipient: Patient Teaching Methods: Demonstration, Discussion Response to Teaching: Reinforcement Needed Discharge Recommendations Plan Patient will perform bed mobility and transfer training, balance and endurance training, functional strengthening, gait training, and education, to improve functional mobility and independence at home. Therapy D/C Recommendations: Home w/ Family Support, Residential (TCU/NH) Time/GCodes Time In: 927 Time Out: 954 Total Billed Treatment Time: 27 Total Billed Treatment 1 visit SEAN 15' FA 12' MICHELLE FUNES PT Jan 24, 2019 10:09
[2019-01-24] MEDS: HYDROcodone/APAP 10 MG/325 MG (LORTAB) TAB PO PRN (10:51)
--- NOTE | 2019-01-24 11:07 | Occupational Therapy Eval ---
OT Evaluation-General/PLF Medical Diagnosis Admission Date Jan 23, 2019 at 08:28 Medical Diagnosis: right TKA Onset Date: Jan 23, 2019 Therapy Diagnosis Therapy Diagnosis: impaired ADLs and mobility Height/Weight Height (Feet): 6 Height (Inches): 1.00 Weight (Pounds): 284 Weight (Ounces): 0.0 Precautions Precautions/Isolations: Fall Prevention, Standard Precautions Safety Interventions: None Weight Bear Status Weight Bearing Restriction: Weight Bearing/Tolerated Referral Physician: Forrest Knight Referral Reason: Activity Tolerance, Self Care, Evaluation/Treatment, Strengthening/ROM Medical History Pertinent Medical History: CAD, DM, HTN Current History R TKA on 01/23/19 Reviewed History: Yes Social History Home: Single Level Current Living Status: Spouse Entry Into Home: Ramp Pt lives in single level house with a basement, uses a chair lift to get to/from basement. ADL-Prior Level of Function Therapy Code Descriptions/Definitions Functional [place] Measure: 0=Not Assessed/NA 4=Minimal Assistance 1=Total Assistance 5=Supervision or Setup 2=Maximal Assistance 6=Modified [place] 3=Moderate Assistance 7=Complete [place] Therapy Quality Codes: 6 Independent with activity with or without an assistive device 5 Patient requires set up or clean up by helper. Patient completes activity by themselves 4 Supervision or touching assist (CGA). [place] provide cues , steadying assist 3 The helper provides less than half the effort to complete the activity 2 The helper provides more than half the effort to complete the activity 1 Dependent. The helper does all the effort to complete an activity 7 Patient refused to complete or attempt activity 9 The patient did not perform the activity before the current illness or inj ury 88 Not attempted due to Medical conditions or safety concerns Functional Abilities and Goals: Independent: Patient completed the activities by him/herself, with or without an assistive device, with no assistance from a helper. Needed Some Help: Patient needed partial assistance from another person to complete activities. Dependent: A helper completed the activities for the patient. Unknown: Not Applicable: ADL PLOF Comments Pt states he is able to put shoes on with shoe horn but he does not wear socks at home. He is able to wash all of his body except his feet which his assists him with, also sets up shower area prior to shower. Overall pt states he generally uses a wheel chair to get around the house and community, but he does walk into the bathroom with a walker, pt states "I don't move much", indicating he is very sedentary at home. Self Care: Needed Some Help Functional Cognition: Independent DME/Equipment: Bath Chair, Grab Bars DME/Equipment Comments long handled shoe horn Drive Self: Yes OT Current Status Subjective Pt laying in bed at start of session, agreed to OT tx this AM. Pt did not report any pain during tx. 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 Patient completes activity by themselves 4 Supervision or touching assist (CGA). [place] provide cues , steadying assist 3 The helper provides less than half the effort to complete the activity 2 The helper provides more than half the effort to complete the activity 1 Dependent. The helper does all the effort to complete an activity 7 Patient refused to complete or attempt activity 9 The patient did not perform the activity before the current illness or injury 88 Not attempted due to Medical conditions or safety concerns Eating (FIM): 5 (set up - Pt reports he requires assistance opening containers secondary to decreased computer equipment repairer strength) Lower Body Dressing (FIM): 1 (Pt unable to reach feet to don/doff socks at bed level) Transfers (B, C, W/C) (FIM): 2 (per PT report, pt required max A for sit to stand. Pt had just transferred with PT prior to this evaluation) Other Treatments Pt laying in bed at start of OT evaluation with CPM on RLE. Pt agreed to OT eval/tx. Post OT session, pt laying in bed, call light in reach and needs met with CPM on RLE. Education OT Patient Education: Energy conservation, Progress toward Goal/Update tx plan, Purpose of tx/functional activities, Transfer techniques Teaching Recipient: Patient Teaching Methods: Demonstration, Discussion Response to Teaching: Verbalize Understanding, Return Demonstration OT Short Term Goals Short Term Goals Time Frame: Jan 31, 2019 Eating(FIM): 5 Grooming(FIM): 5 Bathing(FIM): 4 Upper Body Dressing(FIM): 5 Lower Body Dressing(FIM): 4 Toileting(FIM): 4 Transfers (B,C,W/C) (FIM): 4 Toilet/Commode Transfer(FIM): 4 Additional Short Term Goals: 1-Demonstrate ADL Tasks, 2-Verbalize Understanding, 3-ImproveStrength/Glenn 1=Demonstrate adherence to instructed precautions during ADL tasks. 2=Patient will verbalize/demonstrate understanding of assistive devices/modifications for ADL. 3=Patient will improve strength/tolerance for activity to enable patient to perform ADL's. OT Transition Lead Goals Custodial Goals Time Frame: Feb 07, 2019 Eating (FIM): 6 Grooming(FIM): 6 Bathing(FIM): 5 Bathing Location: L Arm, R Arm, L Upper Leg, R Upper Leg, L Lower Leg (including foot), R Lower Leg (including foot), Chest, Abdomen, Buttocks, Perineal Area Upper Body Dressing(FIM): 5 Lower Body Dressing(FIM): 5 Toileting(FIM): 6 Transfers (B,C,W/C) (FIM): 6 Toilet/Commode Transfer(FIM): 6 Additional Goals: 1-Demonstrate ADL Tasks, 2-Verbalize Understanding, 3- ImproveStrength/Glenn 1=Demonstrate adherence to instructed precautions during ADL tasks. 2=Patient will verbalize/demonstrate understanding of assistive devices/modifications for ADL. 3=Patient will improve strength/tolerance for activity to enable patient to perform ADL's. OT Education/Plan Problem List/Assessment Assessment: Decreased Activ Tolerance, Decreased UE Strength, Impaired Funct Balance, Impaired I ADL's, Impaired Self-Care Skills Discharge Recommendations Plan/Recommendations: Continue POC Therapy D/C Recommendations: Home w/ Family Support, Occupational Therapy Home Care Equpiment Recommendations-D/C: Hip Kit Treatment Plan/Plan of Care Treatment,Training & Education: Yes Patient would benefit from OT for education, treatment and training to promote independence in ADL's, mobility, safety and/or upper extremity function for ADL's. Plan of Care: ADL Retraining, Caregiver Training, Functional Mobility, UE Funct Exercise/Act Treatment Duration: Feb 07, 2019 Frequency: 5 times per week Estimated Hrs Per Day: .25 hour per day Agreement: Yes Rehab Potential: Fair Time/GCodes Start Time: 10:34 Stop Time: 10:54 Total Time Billed (hr/min): 20 Billed Treatment Time 1, EVM X20 min JHONATAN KLEIN OT Jan 24, 2019 11:07
[2019-01-24 12:00] VITALS: BP 110/56
[2019-01-24 12:30] VITALS: BP 110/56
--- NOTE | 2019-01-24 14:20 | Discharge Summary ---
Diagnosis/Chief Complaint Date of Admission Jan 23, 2019 at 08:28 Date of Discharge Discharge Date: Jan 24, 2019 Discharge Time: 14:17 Admission Diagnosis Primary osteoarthritis of the right knee Primary Care Mirza Bach MD Discharge Diagnosis Primary osteoarthritis of the right knee s/p total knee replacement (1) Primary osteoarthritis of right knee Status: Chronic (2) Total knee replacement status Status: Acute (3) Essential hypertension Status: Chronic (4) Type II diabetes mellitus Status: Chronic (5) Hypothyroidism Status: Chronic (6) BPH (benign prostatic hyperplasia) Status: Chronic Discharge Summary Discharge Physical Exam Allergies: Coded Allergies: No Known Drug Allergies (Unverified , 03/07/18) Vitals & I&Os Vital Signs Date Time Temp Pulse Resp B/P (MAP) Pulse Ox O2 Delivery O2 Flow Rate FiO2 01/24/19 12:00 97.4 98 20 110/56 (74) 95 Nasal Cannula 6.00 General Appearance: No Apparent Distress, WD/WN HEENT: PERRL/EOMI, Pharynx Normal Respiratory: Lungs Clear, Normal Breath Sounds, No Respiratory Distress Cardiovascular: Regular Rate, Rhythm, Systolic Murmur Gastrointestinal: Normal Bowel Sounds, Non Tender, Soft Skin: Normal Color, Warm/Dry Neurologic/Psychiatric: Alert, Oriented x3, No Motor/Sensory Deficits Hospital Course Was the Problem List Reviewed?: Yes Ilia Barbour is an 78-year-old male with past medical history of essential hypertension, type II diabetes mellitus, hypothyroidism, benign prostatic hyperplasia, who presented for a total knee replacement due to primary osteoarthritis of his right knee. He underwent the surgery on 01/[address] Byrnes. He has done well postoperatively. He had a Anguiano catheter placed due to urinary retention. He will be transferred to the inpatient rehabilitation for ongoing therapy. Labs (last 24 hrs) Laboratory Tests 01/23/19 21:47: Glucometer 198H 01/24/19 04:45: White Blood Count 8.2, Red Blood Count 3.83L, Hemoglobin 10.6L, Hematocrit 34L, Mean Corpuscular Volume 88, Mean Corpuscular Hemoglobin 28, Mean Corpuscular Hemoglobin Concent 32, Red Cell Distribution Width 16.6H, Platelet Count 232, Mean Platelet Volume 10.6H 01/24/19 05:10: Sodium Level 136, Potassium Level 4.2, Chloride Level 100, Carbon Dioxide Level 24, Anion Gap 12, Blood Urea Nitrogen 24H, Creatinine 0.82, Estimat Glomerular Filtration Rate > 60, BUN/Creatinine Ratio 29, Glucose Level 136H, Calcium Level 9.1 01/24/19 05:22: Glucometer 122H 01/24/19 11:10: Glucometer 141H Patient resulted labs reviewed. Pending Labs Laboratory Tests 01/24/19 11:10: Glucometer 141 Imaging: Reviewed Imaging Report Discussion & Recommendations Discharge Planning: <30 minutes discharge planning Discharge Home Medications: Active Scripts Active Reported Solifenacin Succinate 5 Mg Tablet 5 Mg PO 1800 Aspir 81 (Aspirin) 81 Mg Tablet.dr 81 Mg PO DAILY Lyrica (Pregabalin) 150 Mg Capsule 150 Mg PO BID Flomax (Tamsulosin HCl) 0.4 Mg Cap 0.4 Mg PO 1800 Glucosamine Chondroitin Tab (Gluc Beckham/Chondro Beckham A/Vit C/Mn) 1 Each Tablet 1 Tab PO DAILY Ruben Multi For Men Tablet (Mv-Mn/FA/Lycopene/Lut/Hb#178) 1 Each Tablet 1 Tab PO DAILY Saw Garrison (Saw Garrison Fruit) 450 Mg Capsule 450 Mg PO DAILY Fish Oil 1,000 mg Capsule (Tracy 3 Polyunsat Fatty Acids) 1,000 Mg Cap 1,000 Mg PO DAILY Vitamin B-12 (Cyanocobalamin (Vitamin B-12)) 1,000 Mcg Tablet 1,000 Mcg PO DAILY Zinc 50 Mg Tablet 50 Mg PO DAILY Levothyroxine Sodium 200 Mcg Tablet 200 Mcg PO DAILY TAKE ALONG WITH 50MCG TABLET Atorvastatin Calcium 40 Mg Tablet 40 Mg PO DAILY Synthroid (Levothyroxine Sodium) 50 Mcg Tablet 50 Mcg PO DAILY TAKE ALONG WITH 200MCG TABLET Duloxetine HCl 60 Mg Capsule.dr 60 Mg PO HS Metformin HCl ER (Metformin HCl) 1,000 Mg Tab.er.24 1,000 Mg PO BID WITH MEALS Myrbetriq (Mirabegron) 50 Mg Tab.er.24h 50 Mg PO 1200 Losartan Potassium 100 Mg Tablet 100 Mg PO DAILY Pantoprazole Sodium 40 Mg Tablet.dr 40 Mg PO 1800 Desmopressin Acetate 0.2 Mg Tablet 0.6 Mg PO HS TAKES 3 (0.2MG) TABLETS Furosemide 40 Mg Tablet 40 Mg PO DAILY Potassium Chloride 8 Meq Tablet.er 8 Meq PO DAILY Condition at discharge Stable Instructions to patient/family Please see electronic discharge instructions given to patient. 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
== END 2019-01-24 12:30 | DRG 470 ==
LOC: 4TH 08:28 → SURG 08:29 → 4TH 14:50
PROVIDERS: ADMIT Orthopaedic Surgery; ATTEND Orthopaedic Surgery
PROC: 0SRC0J9 Replacement of Right Knee Joint with Synthetic Substitute, Cemented, Open Approach (ICD-10-PCS; principal; 2019-01-23 10:47)
DX: M17.11 Unilateral primary osteoarthritis, right knee (principal); I10 Essential (primary) hypertension; N40.1 Benign prostatic hyperplasia with lower urinary tract symptoms; R33.8 Other retention of urine; E03.9 Hypothyroidism, unspecified; E11.42 Type 2 diabetes mellitus with diabetic polyneuropathy; E78.00 Pure hypercholesterolemia, unspecified; I35.0 Nonrheumatic aortic (valve) stenosis; K21.9 Gastro-esophageal reflux disease without esophagitis; K59.09 Other constipation; M10.9 Gout, unspecified; E66.9 Obesity, unspecified; I25.2 Old myocardial infarction; Z87.891 Personal history of nicotine dependence; Z79.84 Long term (current) use of oral hypoglycemic drugs; Z68.37 Body mass index [BMI] 37.0-37.9, adult; Z87.440 Personal history of urinary (tract) infections; Z87.442 Personal history of urinary calculi
CPT/HCPCS: 36415; 73560; 80048; 82962; 85027; 86850; 86900; 86901; 94664; 94760

== ENCOUNTER 2019-01-24 12:52 | Inpatient (IN) | payer MEDICARE, OTHER ==
[~2019-01-24] VITALS: Ht 180.3 cm; Wt 127.9 kg
--- NOTE | 2019-01-24 13:00 | NUR ---
Pt admitted to room 229-1, with an admitting diagnosis of S/P Rt TKR on 01/24/19 from 4th floor, via w/c, accompanied by PT, staff, family. DIANDRA VO introduced to surroundings, call light, bed controls, phone, TV, temperature control, lights, meal times, smoking policy, visitor policy, side rail policy, bathrooms and showers. Patient Rights given to patient in the handbook. DIANDRA VO acknowledges understanding that [facility] is not responsible for the loss or damage to any personal effects or valuables that are kept in the patients posession during their hospitalization. The following Patient Care Plans were discussed with the pt: Discharge Planning, Impaired Mobility, Alteration in skin integrity, Potential for fall/injury. DIANDRA VO verbalizes understanding of Interdisciplinary Patient Education. Patient and/or family were informed about the Rapid Response Team and its purpose. Patient received Patient Rights Booklet, which includes Privacy Act Statement and Data Collection Information Summary.
[2019-01-24 13:30] VITALS: BP 85/56
[2019-01-24 13:35] VITALS: BP 84/55
--- NOTE | 2019-01-24 13:52 | NUR ---
REVIEWED MED REC IT WAS REPORTED UPON ADMISSION TO 4TH FLOOR. NO CHANGES WERE MADE WHEN THE PATIENT DISCHARGED TO REHAB. Addendum: 02/01/19 at 1454 by DESTINY SOARES chinese medicine practitioner PATIENT BROUGHT IN HOME MED OF EX LAX CHOCOLATE SQUARES, I ADDED IT TO THE MED REC AT THIS TIME 2 BID PRN
--- NOTE | 2019-01-24 14:08 | Physical Therapy Evaluation ---
PT Evaluation-General Medical Diagnosis Admission Date Jan 24, 2019 at 13:00 Medical Diagnosis: OA right knee Onset Date: Jan 24, 2019 Therapy Diagnosis Therapy Diagnosis: abnormal mobility/gait Height/Weight Height (Feet): 6 Height (Inches): 1.00 Weight (Pounds): 284 Weight (Ounces): 0.0 Precautions Precautions/Isolations: Standard Precautions Weight Bear Status Right Lower Extremity: Right Weight Bearing/Tolerated Left Lower Extremity: Left Full Weight Bearing Referral Physician: Marquita Reason for Referral: Evaluation/Treatment Medical History Pertinent Medical History: CAD, DM, HTN Current History Admitted post acute stay for elective TKR right LE due to pain secondary to OA. Reviewed History: Yes Social History Home: Multilevel Current Living Status: Spouse Entry Into Home: Ramp Pt has a stair lift to allow him access to his basement Prior/Core FIM Prior Level of Function Therapy Code Descriptions/Definitions Functional [place] Measure: 0=Not Assessed/NA 4=Minimal Assistance 1=Total Assistance 5=Supervision or Setup 2=Maximal Assistance 6=Modified [place] 3=Moderate Assistance 7=Complete [place] Therapy Quality Codes: 6 Independent with activity with or without an assistive device 5 Patient requires set up or clean up by helper. Patient completes activity by themselves 4 Supervision or touching assist (CGA). [place] provide cues , steadying assist 3 The helper provides less than half the effort to complete the activity 2 The helper provides more than half the effort to complete the activity 1 Dependent. The helper does all the effort to complete an activity 7 Patient refused to complete or attempt activity 9 The patient did not perform the activity before the current illness or injury 88 Not attempted due to Medical conditions or safety concerns Functional Abilities and Goals: Independent: Patient completed the activities by him/herself, with or without an assistive device, with no assistance from a helper. Needed Some Help: Patient needed partial assistance from another person to complete activities. Dependent: A helper completed the activities for the patient. Unknown: Not Applicable: Bed Mobility: 6 Transfers (B,C,W/C) (FIM): 6 Gait: 2 (short distances (10-50 ft)) Stairs: 0 (uses a stair lift or a ramp) Wheelchair Mobility: 6 (power chair) Indoor Mobility (Ambulation): Needed Some Help Stairs: Dependent Prior Devices Use: Motorized wheelchair, Walker Pt used a power chair for primary mobility. He reports his walking was limited and recently (to prepare for surgery) he walked 12 ft x 2 three times a day. He uses a stair lift to go up/down stairs and a ramp to enter/exit his home. Reports he does still drive. PT Evaluation-Current Subjective Pt is agreeable to PT. Reports he is primarily in his wc at home and walks short distances (12-15 ft) at a time using a FWW. Reports he has a chair lift to take him up/down his stairs in his home. Ramp to enter his home. Reports recently he has been using a arnav lift for transfers. Pt/Family Goals His goal is to return home and be able to transfer with more ease and walk short distances. Objective Patient Orientation: Person, Place, Time, Situation Problem Solving: Good ROM/Strength ROM Lower Extremities Left LE ROM WFL; Right LE ROM WFL except knee AAROM 0-15-60 degrees. CPM in use. Strenght Lower Extremities Gross left LE strength is 4-/5; right LE strength is grossly 2/5 Integumentary/Posture Integumentary Refer to nursing notes. Neuromuscular (Tone, Coordination, Reflexes) intact Sensory Vision: Functional Hearing: Functional Sensation Right Upper Extremit: Intact Sensation Left Lower Extremity: Intact Transfers Therapy Code Descriptions/Definitions Functional [place] Measure: 0=Not Assessed/NA 4=Minimal Assistance 1=Total Assistance 5=Supervision or Setup 2=Maximal Assistance 6=Modified [place] 3=Moderate Assistance 7=Complete [place] Therapy Quality Codes: 6 Independent with activity with or without an assistive device 5 Patient requires set up or clean up by helper. Patient completes activity by themselves 4 Supervision or touching assist (CGA). [place] provide cues , steadying assist 3 The helper provides less than half the effort to complete the activity 2 The helper provides more than half the effort to complete the activity 1 Dependent. The helper does all the effort to complete an activity 7 Patient refused to complete or attempt activity 9 The patient did not perform the activity before the current illness or injury 88 Not attempted due to Medical conditions or safety concerns Transfers (B, C, W/C) (FIM): 1 Scootin (assist of 2 to scoot in bed) Rollin Roll Left to Right (QC): 3 Supine to/from Sit: 3 Sit to/from Stand: 1 bed t/f WC(FIM only if WC use): 1 Sit to Lying (QC): 2 (max assist to get legs into bed and for trunk control) Lying to Sitting/Side of Bed(Q: 3 (Mod assist to come to sit EOB with assist with right leg and trunk) Sit to Stand (QC): 1 Chair/Stp-yj-Kdzda Xfer(QC): 1 Car Transfer (QC): 88 (unsafe to attempt with sit to stand lift) Gait Does the Patient Walk?: No and Walking Goal IS indicated Mode of Locomotion: Both Anticipated Mode of Locomotion: Both Gait (FIM): 0 (pt unable to come to a full stand to attempt ambulation; requires a mech sit to stand lift to stand up) Distance (FIM): 0=does not occure Walk 10 feet (QC): 88 Walk 50 ft with 2 Turns(QC): 88 Walk 150 ft (QC): 9 Walking 10ft/uneven surface-QC: 88 Gait Assistive Device: FWW Comments/Gait Description Pt unable to come to a full stand to attempt ambulation at this time. Wheelchair Training Does the Pt Use a Wheelchair?: Yes Wheelchair (FIM): 2 Wheelchair Distance (FIM): 1=up to 49 ft Wheelchair Level of Assist: 4 Wheel 50 ft with 2 turns (QC): 3 Wheel 150 ft (QC): 2 Type of Wheelchair: Manual Stairs Stairs (FIM): 0 1 Step (curb) (QC): 88 4 Steps (QC): 88 12 Steps (QC): 88 If not tested on admit;explain pt requires a mechanical sit to stand lift to stand up; unable to attempt stairs. Balance Sitting Static: Normal Picking up an Object (QC): 88 Assessment/Needs Post right knee TKR with significantly impaired ability to mobilize in bed, transfer to sit EOB and at this time, he is dependent for transfer bed to/from chair on the use of a sit to stand lift. He has recently been impaired in his ability to walk short distances in his home. He will benefit from skilled therapy services to address functional strength and mobilty to allow him to return home at his PLOF. Rehab Potential: Guarded PT Short Term Goals Short Term Goals Time Frame: Feb 07, 2019 Transfers (B,C,W/C) (FIM): 4 Gait (FIM): 2 Distance (FIM): 1=up to 49 ft Gait Assistive Device: FWW Wheelchair (FIM): 6 Wheelchair distance (FIM): 3=150 ft PT Play Writer Goals Play Writer Goals PT Half-Way Goals Time Frame: Feb 21, 2019 Transfers (B,C,W/C) (FIM): 5 Sit to Lying (QC): 6 Lying-Sitting on Side/Bed(QC): 6 Sit to Stand (QC): 6 Roll Left to Right (QC): 6 Chair/Ikn-io-Wtpxs Xfer(QC): 5 Car Transfer (QC): 4 Does the Patient Walk: No and Walking Goal IS indicated Gait (FIM): 2 Gait distance (FIM): 1=up to 49 ft Distance: 20 ft Walk 10 feet (QC): 6 Walk 10ft-Uneven Surface(QC): 4 Walk 50ft with 2 Turns (QC): 88 Walk 150 ft (QC): 88 Gait Assistive Device: FWW Does the Pt use WC or Scooter?: Yes Wheelchair (FIM): 6 Wheelchair distance (FIM): 3=150 ft Wheel 50 feet with 2 turns (QC: 6 Stairs (FIM): 0 1 Step (curb) (QC): 9 4 Steps (QC): 9 12 Steps (QC): 9 Picking up an Object (QC): 88 PT Plan Problem List Problem List: Activity Tolerance, Functional Strength, Safety, Balance, Gait, Transfer, Bed Mobility, ROM Treatment/Plan Treatment Plan: Continue Plan of Care Treatment Plan: Bed Mobility, Education, Functional Activity Glenn, Functional Strength, Group Therapy, Gait, Safety, Therapeutic Exercise, Transfers Treatment Duration: Feb 21, 2019 Frequency: At least 5 of 7 days/Wk (IRF) Estimated Hrs Per Day: 1.5 hours per day Patient and/or Family Agrees t: Yes Safety Risks/Education Patient Education: Gait Training, Transfer Techniques, Safety Issues Teaching Recipient: Patient Teaching Methods: Demonstration, Discussion Response to Teaching: Reinforcement Needed Discharge Recommendations Therapy D/C Recommendations: Physical Therapy Home Care Time/GCodes Time In: 1255 Time Out: 1310 Total Billed Treatment Time: 15 Total Billed Treatment visit EVM 15 CIRO JIMENEZ PT Jan 24, 2019 14:07
--- NOTE | 2019-01-24 14:27 | Occupational Therapy Eval ---
OT Evaluation-General/PLF Medical Diagnosis Admission Date Jan 24, 2019 at 13:00 Medical Diagnosis: Right TKA Onset Date: Jan 23, 2019 Therapy Diagnosis Therapy Diagnosis: Weakness Height/Weight Height (Feet): 6 Height (Inches): 1.00 Weight (Pounds): 284 Weight (Ounces): 0.0 Weight Bear Status Weight Bearing Restriction: Weight Bearing/Tolerated Referral Physician: Dr. Juárez Referral Reason: Activity Tolerance, Self Care, Evaluation/Treatment, Strengt hening/ROM Medical History Pertinent Medical History: CAD, DM, HTN Additional Medical History Elective knee replacement. Reviewed History: Yes Social History Home: Single Level Current Living Status: Spouse Pt. has stairs to basement, but uses a chair lift. ADL-Prior Level of Function Therapy Code Descriptions/Definitions Functional [place] Measure: 0=Not Assessed/NA 4=Minimal Assistance 1=Total Assistance 5=Supervision or Setup 2=Maximal Assistance 6=Modified [place] 3=Moderate Assistance 7=Complete [place] Therapy Quality Codes: 6 Independent with activity with or without an assistive device 5 Patient requires set up or clean up by helper. Patient completes activity by themselves 4 Supervision or touching assist (CGA). [place] provide cues , steadying assist 3 The helper provides less than half the effort to complete the activity 2 The helper provides more than half the effort to complete the activity 1 Dependent. The helper does all the effort to complete an activity 7 Patient refused to complete or attempt activity 9 The patient did not perform the activity before the current illness or injury 88 Not attempted due to Medical conditions or safety concerns Functional Abilities and Goals: Independent: Patient completed the activities by him/herself, with or without an assistive device, with no assistance from a helper. Needed Some Help: Patient needed partial assistance from another person to complete activities. Dependent: A helper completed the activities for the patient. Unknown: Not Applicable: ADL PLOF Comments Pt. required assistance from spouse with ADL set up previous to this hospitalization. Pt. required assist to wash feet. Pt. uses wheelchair throughout home and uses walker to stand from chair and ambulate into bathroom. Self Care: Needed Some Help Functional Cognition: Unknown DME/Equipment: Shower OT Current Status Subjective No pain reported. Appearance Pt. in room in bed. Agrees to work with therapy. Mental Status/Objective Patient Orientation: Person, Place ADL-Treatment Lower Body Dressing (FIM): 1 (Pt. unable to reach bilateral feet) Lower Body Dressing (QC): 1 On/Off Footwear (QC): 1 Transfers (B, C, W/C) (FIM): 1 (Max assist supine-sit. Pt. utilized sit-stand lift to transfer to wheelchair.) Pt. utilizes shoe horns at home to don shoes. Does not wear socks. Education OT Patient Education: Correct positioning, Progress toward Goal/Update tx plan, Purpose of tx/functional activities, Reviewed precautions, Rehab process, Transfer techniques Teaching Recipient: Patient Teaching Methods: Demonstration, Discussion Response to Teaching: Verbalize Understanding, Return Demonstration OT Short Term Goals Short Term Goals Time Frame: Jan 31, 2019 Eating(FIM): 5 Grooming(FIM): 5 Bathing(FIM): 4 Upper Body Dressing(FIM): 4 Lower Body Dressing(FIM): 4 Toileting(FIM): 3 Transfers (B,C,W/C) (FIM): 4 Toilet/Commode Transfer(FIM): 4 Shower Transfer(FIM): 4 1=Demonstrate adherence to instructed precautions during ADL tasks. 2=Patient will verbalize/demonstrate understanding of assistive devices/modifications for ADL. 3=Patient will improve strength/tolerance for activity to enable patient to perform ADL's. OT Rn Hemodialysis Charge Goals Rn Hemodialysis Charge Goals Time Frame: Feb 07, 2019 Eating (FIM): 6 Eating (QC): 6 Groomin Oral Hygiene (QC): 6 Bathing(FIM): 4 Shower/Bathe Self (QC): 4 Upper Body Dressing(FIM): 5 Upper Body Dressing (QC): 4 Lower Body Dressing(FIM): 5 Lower Body Dressing (QC): 4 On/Off Footwear (QC): 4 Toileting(FIM): 5 Toileting Hygiene (QC): 4 Transfers (B,C,W/C) (FIM): 5 Toilet/Commode Transfer(FIM): 5 Toilet/Commode Transfer (QC): 4 Shower Transfer(FIM): 4 Additional Goals: 1-Demonstrate ADL Tasks, 2-Verbalize Understanding, 3- ImproveStrength/Glenn 1=Demonstrate adherence to instructed precautions during ADL tasks. 2=Patient will verbalize/demonstrate understanding of assistive devices/modifications for ADL. 3=Patient will improve strength/tolerance for activity to enable patient to perform ADL's. OT Education/Plan Problem List/Assessment Assessment: Decreased Activ Tolerance, Decreased UE Strength, Dependent Transfers, Impaired Bed Mobility, Impaired Funct Balance, Impaired I ADL's, Impaired Self-Care Skills, Restricted Funct UE ROM Discharge Recommendations Plan/Recommendations: Continue POC Therapy D/C Recommendations: Home w/ Family Support, Occupational Therapy Home Care, Scheduled Assistance Equpiment Recommendations-D/C: Hip Kit Treatment Plan/Plan of Care Treatment,Training & Education: Yes Patient would benefit from OT for education, treatment and training to promote independence in ADL's, mobility, safety and/or upper extremity function for ADL's. Plan of Care: ADL Retraining, Functional Mobility, Group Exercise/Act as Ind, UE Funct Exercise/Act Treatment Duration: Feb 07, 2019 Frequency: At least 5 of 7 days/Wk (IRF) Estimated Hrs Per Day: 1.5 hours per day Agreement: Yes Rehab Potential: Good Time/GCodes Start Time: 14:00 Stop Time: 14:15 Total Time Billed (hr/min): 15 Billed Treatment Time 1, CIERRA HANKS OT Jan 24, 2019 14:27
--- NOTE | 2019-01-24 14:28 | Anesthesia-General Post-Op ---
General Patient Condition Mental Status/LOC: Same as Preop Cardiovascular: Satisfactory Nausea/Vomiting: Absent Respiratory: Satisfactory Pain: Controlled Complications: Absent Post Op Complications Complications None Follow Up Care/Instructions Patient Instructions None needed. Anesthesia/Patient Condition Patient Condition Patient is doing well, no complaints, stable vital signs, no apparent adverse anesthesia problems. No complications reported per nursing. MARIANO DURAND CRNA Jan 24, 2019 14:28
--- NOTE | 2019-01-24 14:40 | ST Cognitive Linguistic Eval ---
Speech Evaluation-General Medical Diagnosis Right TKA Onset Date: Jan 23, 2019 Therapy Diagnosis Therapy Diagnosis: Cognitive-communication Precautions Precautions: Fall Precautions/Isolations: Fall Prevention, Standard Precautions Referral Referring Physician: Dr. Juárez Reason for Referral: Evaluation/Treatment Medical History Pertinent Medical History: CAD, DM, HTN CAD, DM, HTN Current History Right TKA Reviewed History: Yes Social History Home: Single Level Current Living Status: Spouse Speech PLF-Current Status Prior Level of Function The patient lived at home with his where he was independent for most of his daily needs. Subjective The patient was pleasant and cooperative with the evaluation process. Language Eval: Auditory Comprehends Simple Yes/No Ques: Functional Indent/Objects Multiple Briggs: Functional Ident/Pics in Multiple Briggs: Functional Follows 1-Step Commands: Functional Follows Complex Directions: Functional Follows General Conversations: Functional Language Eval: Verbal Language Completes Spontaneous Greeting: Functional Produces Auto, Serial Info: Functional Imitates Simple Words/Phrases: Functional Word Finding: Functional Requests Basic Needs: Functional States Basic Personal Info: Functional Expresses Complex Ideas: Functional Objective Cognitive Domain Attention: WNL Memory: Mild Problem Solving: Functional Executive Functions: WNL Visuospatial Skills: WNL Composite Severity Rating: WNL Clock Drawing Severity Rating: WNL Score: 27/30 Range: Normal Objective Formal/Standardized Tests [facility] Mental Status ([facility]) Results 27/30, within normal range of function Oral Motor/Speech Production Within Functional Limits Impression The patient is an 78 year old man who was admitted to the ARU s/p right TKA. The patient was assessed via the [facility] with a score of 27//30. Normal range of function. The patient does not warrant skilled ST at this time. Communication/Social Cognition Comprehension: 7 Expression: 7 Social Interaction: 7 Problem Solvin Memory: 7 Speech Patient Assess Expression of Ideas/Wants: Expression (4) Understanding Verbal Content: Understands (4) Brief Interview-Mental Status: Yes Repetition of Three Words: Three (3) Temporal Orientation: Year: Correct (3) Temporal Orientation: Month: Accurate within 5 days(2) Temporal Orientation: Day: Correct (1) Recall : Wear to say "Sock": Yes, no cue required (2) Recall : Color: Yes, no cue required (2) Recall : Bed: Yes,after cueing (1) Memory/Recall Ability: Current season, Location of own room, That he or she is in a hsp/hsp unit Speech-Plan Patient/Family Goals Patient/Family Goals: The patient plans on returning home with his post rehab. Treatment Plan Speech Therapy Treatment Plan: Discontinue ST The patient does not require skilled ST at this time. Treatment Duration: Jan 24, 2019 Frequency: 1 time per week Estimated Hrs Per Day: .25 hour per day Rehab Potential: Good Barriers to Learning: None identified Pt/Family Agrees to Plan: Yes Safety Risks/Education Teaching Recipient: Patient Teaching Methods: Discussion Response to Teaching: Verbalize Understanding Education Topics Provided: Communication of his needs Time Speech Therapy Time In: 14:15 Speech Therapy Time Out: 14:30 Total Billed Time: 15 Billed Treatment Time 1, SPSNDTRACY Guaman Jan 24, 2019 14:40
--- NOTE | 2019-01-24 14:56 | History & Physical ---
YAEL [facility] 01/24/19 1456: History of Present Illness History of Present Illness Reason for visit/HPI CC: Knee pain 2/2 total right knee arthroplasty Mr. Barbour is an 78 yo WM with a PMH of DM, septic shock 2/2 renal calculi and Aortic Stenosis is admitted to the inpatient rehab unit 2/2 right knee arthroplasty by Dr. Byrnes 1 day [employer] (01/23). His primary care physician is Dr. Bach. He has been dealing with increased right knee pain and reduced right knee ROM for about the last 10 years, but accelerating over the last few months. Upon presentation to Dr. Byrnes, he was diagnosed with osteoarthritis with complete loss of joint spacing. It was suggested he also lose weight prior to surgery. He has lost over 30lbs since . He also has a history of a heart murmur. He states he was told about in as a young man, but for years after, it was never told to him until recently. He underwent a cardiac stress and test in pre-op work up and found no evidence of ischemia with an EF of 91%. Prior to surgery, he had already installed a chair lift in his home, as well as a ramp at the entrance to his home. His home is largely carpeted, with the exception of the kitchen. He denies pets at home. He lives with his and has ample support from his family as well. 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 Date of Admission Jan 24, 2019 at 13:00 I consulted on this patient on 01/24/19 14:47 Attending Physician Aylin Berumen DO Admitting Physician Mirza Bach MD Consult Allergies and Home Medications Allergies Coded Allergies: No Known Drug Allergies (Unverified , 03/07/18) Home Medications Aspirin 81 Mg Tablet.dr, 81 MG PO DAILY, (Reported) Atorvastatin Calcium 40 Mg Tablet, 40 MG PO DAILY, (Reported) Cyanocobalamin (Vitamin B-12) 1,000 Mcg Tablet, 1,000 MCG PO DAILY, (Reported) Desmopressin Acetate 0.2 Mg Tablet, 0.6 MG PO HS, (Reported) TAKES 3 (0.2MG) TABLETS Duloxetine HCl 60 Mg Capsule.dr, 60 MG PO HS, (Reported) Furosemide 40 Mg Tablet, 40 MG PO DAILY, (Reported) Gluc Beckham/Chondro Beckham A/Vit C/Mn 1 Each Tablet, 1 TAB PO DAILY, (Reported) Levothyroxine Sodium 50 Mcg Tablet, 50 MCG PO DAILY, (Reported) TAKE ALONG WITH 200MCG TABLET Levothyroxine Sodium 200 Mcg Tablet, 200 MCG PO DAILY, (Reported) TAKE ALONG WITH 50MCG TABLET Losartan Potassium 100 Mg Tablet, 100 MG PO DAILY, (Reported) Metformin HCl 1,000 Mg Tab.er.24, 1,000 MG PO BID WITH MEALS, (Reported) Mirabegron 50 Mg Tab.er.24h, 50 MG PO 1200, (Reported) Mv-Mn/FA/Lycopene/Lut/Hb#178 1 Each Tablet, 1 TAB PO DAILY, (Reported) [place] 3 Polyunsat Fatty Acids 1,000 Mg Cap, 1,000 MG PO DAILY, (Reported) Pantoprazole Sodium 40 Mg Tablet.dr, 40 MG PO 1800, (Reported) Potassium Chloride 8 Meq Tablet.er, 8 MEQ PO DAILY, (Reported) Pregabalin 150 Mg Capsule, 150 MG PO BID, (Reported) [place] Fruit 450 Mg Capsule, 450 MG PO DAILY, (Reported) Solifenacin Succinate 5 Mg Tablet, 5 MG PO 1800, (Reported) Tamsulosin HCl 0.4 Mg Cap, 0.4 MG PO 1800, (Reported) Zinc 50 Mg Tablet, 50 MG PO DAILY, (Reported) Past Dzjvepz-Dsemrn-Pctmed Hx Patient Social History Marrital Status: Employed/Student: retired Former Smoker, Quit: Feb 22, 1994 Type Used: Cigarettes 2nd Hand Smoke Exposure: No Recent Hopitalizations: No Immunizations Up To Date Date of Pneumonia Vaccine: Feb 04, 2013 Date of Influenza Vaccine: Feb 20, 2018 Seasonal Allergies Seasonal Allergies: No Surgeries Yes (BACK, NECK, HERNIA, ) Appendectomy, Gallbladder Respiratory Yes Currently Using CPAP: No Cardiovascular Yes (CARDIAC STENTS) High Cholesterol, Hypertension Neurological Yes (R LEG NERVE DAMAGE) Reproductive System Hx Reproductive Disorders: No Sexually Transmitted Disease: No HIV/AIDS: No Genitourinary Yes (incontience) Kidney Stones, UTI-Chronic Gastrointestinal Yes Gastroesophageal Reflux, Chronic Constipation Musculoskeletal Yes (osteoarthritis) Arthritis, Gout Endocrine History of Endocrine Disorders: Yes Endocrine Disorders: Diabetes, Non-Insulin dep HEENT History of HEENT Disorders: Yes (cataracts removed) HEENT Disorders: Cataract Cancer No Psychosocial History of Psychiatric Problem: No Integumentary History of Skin or Integumenta: No Blood Transfusions History of Blood Disorders: No Adverse Reaction to a Blood Tr: No Family Medical History Family Hx: Alcoholism 19 FATHER Completed stroke 19 MOTHER Diabetes mellitus 19 MOTHER G8 SISTER FH: pancreatic cancer G8 BROTHER Physical Exam Vital Signs Capillary Refill : Height, Weight, BMI Height: 6'1.00" Weight: 284lbs. 0.0oz. 128.340252kb; 37.5 BMI Method:Stated General Appearance: No Apparent Distress, WD/WN HEENT: PERRL/EOMI, TMs Normal, Normal ENT Inspection, Pharynx Normal Neck: Non Tender Respiratory: Chest Non Tender, Normal Breath Sounds Cardiovascular: Regular Rate, Rhythm, Systolic Murmur, Other (Systolic ejection murmor, 3/6 with radiation to carotids) Gastrointestinal: Normal Bowel Sounds Rectal: Deferred Back: Normal Inspection, No CVA Tenderness Neurologic/Psychiatric: Alert, Oriented x3 Skin: Normal Color, Warm/Dry AYLIN BERUMEN DO 01/24/192036: History of Present Illness History of Present Illness Reason for visit/HPI Verification and Attestation of Medical Student E/M Service A medical student performed and documented this service in my presence. I reviewed and verified all information documented by the medical student and made modifications to such information, when appropriate. I personally performed the physical exam and medical decision making. Aylin Berumen, Jan 24, 2019,20:36 Date of Admission 01/24/19 Date Seen by a Provider: Jan 24, 2019 Time Seen by a Provider: 16:15 Allergies and Home Medications Allergies Coded Allergies: No Known Drug Allergies (Unverified , 03/07/18) Home Medications Aspirin 81 Mg Tablet.dr, 81 MG PO DAILY, (Reported) Atorvastatin Calcium 40 Mg Tablet, 40 MG PO DAILY, (Reported) Cyanocobalamin (Vitamin B-12) 1,000 Mcg Tablet, 1,000 MCG PO DAILY, (Reported) Desmopressin Acetate 0.2 Mg Tablet, 0.6 MG PO HS, (Reported) TAKES 3 (0.2MG) TABLETS Duloxetine HCl 60 Mg Capsule.dr, 60 MG PO HS, (Reported) Furosemide 40 Mg Tablet, 40 MG PO DAILY, (Reported) Gluc Beckham/Chondro Beckham A/Vit C/Mn 1 Each Tablet, 1 TAB PO DAILY, (Reported) Levothyroxine Sodium 50 Mcg Tablet, 50 MCG PO DAILY, (Reported) TAKE ALONG WITH 200MCG TABLET Levothyroxine Sodium 200 Mcg Tablet, 200 MCG PO DAILY, (Reported) TAKE ALONG WITH 50MCG TABLET Losartan Potassium 100 Mg Tablet, 100 MG PO DAILY, (Reported) Metformin HCl 1,000 Mg Tab.er.24, 1,000 MG PO BID WITH MEALS, (Reported) Mirabegron 50 Mg Tab.er.24h, 50 MG PO 1200, (Reported) Mv-Mn/FA/Lycopene/Lut/Hb#178 1 Each Tablet, 1 TAB PO DAILY, (Reported) [place] 3 Polyunsat Fatty Acids 1,000 Mg Cap, 1,000 MG PO DAILY, (Reported) Pantoprazole Sodium 40 Mg Tablet.dr, 40 MG PO 1800, (Reported) Potassium Chloride 8 Meq Tablet.er, 8 MEQ PO DAILY, (Reported) Pregabalin 150 Mg Capsule, 150 MG PO BID, (Reported) Saw [place] Fruit 450 Mg Capsule, 450 MG PO DAILY, (Reported) Solifenacin Succinate 5 Mg Tablet, 5 MG PO 1800, (Reported) Tamsulosin HCl 0.4 Mg Cap, 0.4 MG PO 1800, (Reported) Zinc 50 Mg Tablet, 50 MG PO DAILY, (Reported) Patient Home Medication List Home Medication List Reviewed: Yes Past Xdcbrca-Yxyyhn-Qdkcrd Hx Patient Social History Marrital Status: Employed/Student: retired Family Medical History Family Hx: Alcoholism 19 FATHER Completed stroke 19 MOTHER Diabetes mellitus 19 MOTHER G8 SISTER FH: pancreatic cancer G8 BROTHER Review of Systems Constitutional: see HPI Physical Exam General Appearance: No Apparent Distress, WD/WN, Chronically ill Assessment/Plan Assessment and Plan Problems: (1) Status post total right knee replacement Status: Acute Admission Diagnosis Admission Status: Inpatient Order (span 2 midnights) Reason for Inpatient Admission: IRF Supervisory-Addendum Brief Verification & Attestation Participated in pt care: history, MDM, physical Personally performed: exam, history, MDM, supervision of care Care discussed with: Medical Student Procedures: n/a Results interpretation: Verified all documentation Verification and Attestation of Medical Student E/M Service A medical student performed and documented this service in my presence. I reviewed and verified all information documented by the medical student and made modifications to such information, when appropriate. I personally performed the physical exam and medical decision making. Aylin Berumen, Jan 24, 2019,20:37 [facility] Jan 24, 2019 14:56 AYLIN BERUMEN DO Jan 24, 2019 20:37
--- NOTE | 2019-01-24 15:04 | Therapy Group Daily Note ---
Therapy Daily Group Note Patient Education Topic Other List Below (Environmental Signs of Safety) Exercises LE Seated Exercise, UE Exercise Session Ratio (pt:therapist): 4:1 Goal of Session: Education on ARU Expectations, Memory Strategies, UE/LE Strengthing Goal Met for this Session: Yes Pt Benefit of Group: Contributions to Others, F/U Use of Strategies @Home, Increased Functional Safety, Increased Functional Strength, Improved Cognition, Recognition of Peers, Socialization Other/Notes Pt is propelled to PT/OT Group via W/C. Pt arrives to Group late as pt had been working with staff after arrival to ARU. Group consisted of Introductions (Name, Where you live & Biggest Pet Peeve), Socialization, UE & LE Seated Exercise, and Identifying & Explaining Safety Signs we see daily in the form of a seated activity. Pt actively participates in Group by completing exercises and giving examples of safety signs and what they mean. Pt interrupts other pts as well as staff and needs redirection. Pt returns to room at end of Group to rest with all needs met, call light next to pt. Start Time: 13:10 Stop Time: 14:00 Total Billed Treatment Time: 50 Total Billed Treatment 1, GRP YENY VILLEDA MANAGER ASSEMBLY Jan 24, 2019 15:04
--- NOTE | 2019-01-24 15:11 | Occupational Ther Daily Note ---
OT Current Status-Daily Note Subjective No pain reported. Appearance Pt. up in chair. Agrees to work with OT/PT. Mental Status/Objective Patient Orientation: Person, Place Therapy Code Descriptions/Definitions Functional [place] Measure: 0=Not Assessed/NA 4=Minimal Assistance 1=Total Assistance 5=Supervision or Setup 2=Maximal Assistance 6=Modified [place] 3=Moderate Assistance 7=Complete [place] ADL-Treatment Therapy Code Descriptions/Definitions Functional [place] Measure: 0=Not Assessed/NA 4=Minimal Assistance 1=Total Assistance 5=Supervision or Setup 2=Maximal Assistance 6=Modified [place] 3=Moderate Assistance 7=Complete [place] Therapy Quality Codes: 6 Independent with activity with or without an assistive device 5 Patient requires set up or clean up by helper. Patient completes activity by themselves 4 Supervision or touching assist (CGA). [place] provide cues , steadying assist 3 The helper provides less than half the effort to complete the activity 2 The helper provides more than half the effort to complete the activity 1 Dependent. The helper does all the effort to complete an activity 7 Patient refused to complete or attempt activity 9 The patient did not perform the activity before the current illness or injury 88 Not attempted due to Medical conditions or safety concerns Transfers (B, C, W/C) (FIM): 1 Other Treatment [place] with PT due to need of skilled assist x 2. Pt. practiced self propulsion to therapy gym. Talked with him regarding goals and further home set up. Stood at parallel bars with max x 2-3. PT facilitated foot placement and posture while OT facilitated hand placement and back safety. Stood approximately 1-2 minutes with max cues. Education OT Patient Education: Correct positioning, Modified ADL techniques, Progress toward Goal/Update tx plan, Purpose of tx/functional activities, Reviewed precautions, Rehab process, Transfer techniques Teaching Recipient: Patient Teaching Methods: Demonstration, Discussion Response to Teaching: Verbalize Understanding, Return Demonstration OT Short Term Goals Short Term Goals Time Frame: Jan 31, 2019 Eating(FIM): 5 Grooming(FIM): 5 Bathing(FIM): 4 Upper Body Dressing(FIM): 4 Lower Body Dressing(FIM): 4 Toileting(FIM): 3 Transfers (B,C,W/C) (FIM): 4 Toilet/Commode Transfer(FIM): 4 Shower Transfer(FIM): 4 1=Demonstrate adherence to instructed precautions during ADL tasks. 2=Patient will verbalize/demonstrate understanding of assistive devices/m odifications for ADL. 3=Patient will improve strength/tolerance for activity to enable patient to perform ADL's. OT Nursing Home Goals Nursing Home Goals Time Frame: Feb 07, 2019 Eating (FIM): 6 Eating (QC): 6 Groomin Oral Hygiene (QC): 6 Bathing(FIM): 4 Shower/Bathe Self (QC): 4 Upper Body Dressing(FIM): 5 Upper Body Dressing (QC): 4 Lower Body Dressing(FIM): 5 Lower Body Dressing (QC): 4 On/Off Footwear (QC): 4 Toileting(FIM): 5 Toileting Hygiene (QC): 4 Transfers (B,C,W/C) (FIM): 5 Toilet/Commode Transfer(FIM): 5 Toilet/Commode Transfer (QC): 4 Shower Transfer(FIM): 4 Additional Goals: 1-Demonstrate ADL Tasks, 2-Verbalize Understanding, 3- ImproveStrength/Lgenn 1=Demonstrate adherence to instructed precautions during ADL tasks. 2=Patient will verbalize/demonstrate understanding of assistive devices/modifications for ADL. 3=Patient will improve strength/tolerance for activity to enable patient to perform ADL's. OT Education/Plan Problem List/Assessment Assessment: Decreased Activ Tolerance, Dependent Transfers Discharge Recommendations Plan/Recommendations: Continue POC Treatment Plan/Plan of Care Patient would benefit from OT for education, treatment and training to promote independence in ADL's, mobility, safety and/or upper extremity function for ADL's. Plan of Care: ADL Retraining, Functional Mobility, Group Exercise/Act as Ind, U E Funct Exercise/Act Treatment Duration: Feb 07, 2019 Frequency: At least 5 of 7 days/Wk (IRF) Estimated Hrs Per Day: 1.5 hours per day Agreement: Yes Rehab Potential: Good Time/GCodes Start Time: 14:30 Stop Time: 15:00 Total Time Billed (hr/min): 30 Billed Treatment Time 1, FA x 2 CIERRA MILLIGAN OT Jan 24, 2019 15:11
--- NOTE | 2019-01-24 15:32 | Physical Therapy Daily Note ---
PT Daily Note-Current Subjective Pt. states he has a bad knee on the left and and a new questionable one on the right. Agrees to standing in parallel bars and w/c mob . Pt. only c/o pain during the sit to stand phases. Family member requested pain meds stating she wanted pt to stay on top of pain control Pain Numeric Pain Scale: 4 Location: Right Location Body Site: Knee (bilat knees) Pain Description: Ache Comment: during sit to strand at parallel bars and during sit to painter drum liko lift, Mental Status Patient Orientation: Normal For Age Attachments: Anguiano Catheter, Other-See Comments (polar pack and CPM ) Transfers Therapy Code Descriptions/Definitions Functional [place] Measure: 0=Not Assessed/NA 4=Minimal Assistance 1=Total Assistance 5=Supervision or Setup 2=Maximal Assistance 6=Modified [place] 3=Moderate Assistance 7=Complete [place] Therapy Quality Codes: 6 Independent with activity with or without an assistive device 5 Patient requires set up or clean up by helper. Patient completes activity by themselves 4 Supervision or touching assist (CGA). [place] provide cues , steadying assist 3 The helper provides less than half the effort to complete the activity 2 The helper provides more than half the effort to complete the activity 1 Dependent. The helper does all the effort to complete an activity 7 Patient refused to complete or attempt activity 9 The patient did not perform the activity before the current illness or injury 88 Not attempted due to Medical conditions or safety concerns Transfers (B, C, W/C) (FIM): 2 Scootin Supine to/from Sit: 4 (sit to supine min to CGA) Sit to/from Stand: 2 sit to stand lift for TRF w/c to bed, sit to painter drum parallel bars 2 max assist , pt. weight bearing on parallel bars required skill of 2 clinicians co treated by PT OT. Instruction and tactile assist for hip and knee extension and alignment . Co Rx coordinated U&L extremity effort for task of stance. Weight Bearing Right Lower Extremity: Right Weight Bearing/Tolerated Left Lower Extremity: Left Full Weight Bearing Wheelchair Training Type of Wheelchair: Manual pt. indep to lock brakes and uses UEs to propel but needed min to mod assist to steer/guide w/c Treatments pt. in bed with polar pack and CPM insitu at 0-45 degrees. Assessment Current Status: Good Progress PT Short Term Goals Short Term Goals Time Frame: Feb 07, 2019 Transfers (B,C,W/C) (FIM): 4 Gait (FIM): 2 Distance (FIM): 1=up to 49 ft Gait Assistive Device: FWW Wheelchair (FIM): 6 Wheelchair distance (FIM): 3=150 ft PT Detention Goals Ux Design Lead Goals PT Ux Design Lead Goals Time Frame: Feb 21, 2019 Transfers (B,C,W/C) (FIM): 5 Sit to Lying (QC): 6 Lying-Sitting on Side/Bed(QC): 6 Sit to Stand (QC): 6 Rollin Roll Left to Right (QC): 6 Chair/[id number]-Pgxxz Xfer(QC): 5 Car Transfer (QC): 4 Does the Patient Walk: No and Walking Goal IS indicated Gait (FIM): 2 Gait distance (FIM): 1=up to 49 ft Distance: 20 ft Walk 10 feet (QC): 6 Walk 10ft-Uneven Surface(QC): 4 Walk 50ft with 2 Turns (QC): 88 Walk 150 ft (QC): 88 Gait Assistive Device: FWW Does the Pt use WC or Scooter?: Yes Wheelchair (FIM): 6 Wheelchair distance (FIM): 3=150 ft Wheel 50 feet with 2 turns (QC: 6 Stairs (FIM): 0 1 Step (curb) (QC): 9 4 Steps (QC): 9 12 Steps (QC): 9 Picking up an Object (QC): 88 PT Plan Treatment/Plan Treatment Plan: Continue Plan of Care Treatment Plan: Bed Mobility, Education, Functional Activity Glenn, Functional Strength, Group Therapy, Gait, Safety, Therapeutic Exercise, Transfers Treatment Duration: Feb 21, 2019 Frequency: At least 5 of 7 days/Wk (IRF) Estimated Hrs Per Day: 1.5 hours per day Patient and/or Family Agrees t: Yes Safety Risks/Education Patient Education: Transfer Techniques, Correct Positioning, Disease Process, S afety Issues Teaching Recipient: Patient Teaching Methods: Demonstration, Discussion Response to Teaching: Verbalize Understanding, Return Demonstration, Reinforcement Needed Time/GCodes Time In: 1440 Time Out: 1520 Total Billed Treatment Time: 40 Total Billed Treatment 1,FA40m co Rx with SAM COOLEY BLISTER PACK OPERATOR Jan 24, 2019 15:32
--- NOTE | 2019-01-24 15:35 | Occupational Ther Daily Note ---
OT Current Status-Daily Note Subjective pt upright in w/c in therapy gym, agreeable to continue co-treat with OT/PT Pain Numeric Pain Scale: 4 Comment: pain during sit to stand lift, once standing stated he felt better Mental Status/Objective Patient Orientation: Normal For Age Therapy Code Descriptions/Definitions Functional [place] Measure: 0=Not Assessed/NA 4=Minimal Assistance 1=Total Assistance 5=Supervision or Setup 2=Maximal Assistance 6=Modified [place] 3=Moderate Assistance 7=Complete [place] Attachments: Anguiano Catheter, Polar Pack, Other-See Comments ADL-Treatment Therapy Code Descriptions/Definitions Functional [place] Measure: 0=Not Assessed/NA 4=Minimal Assistance 1=Total Assistance 5=Supervision or Setup 2=Maximal Assistance 6=Modified [place] 3=Moderate Assistance 7=Complete [place] Therapy Quality Codes: 6 Independent with activity with or without an assistive device 5 Patient requires set up or clean up by helper. Patient completes activity by themselves 4 Supervision or touching assist (CGA). [place] provide cues , steadying assist 3 The helper provides less than half the effort to complete the activity 2 The helper provides more than half the effort to complete the activity 1 Dependent. The helper does all the effort to complete an activity 7 Patient refused to complete or attempt activity 9 The patient did not perform the activity before the current illness or injury 88 Not attempted due to Medical conditions or safety concerns Transfers (B, C, W/C) (FIM): 1 (sit to stand lift) Other Treatment [place] with PT secondary to complexity of pt's deficits that requires the skills of both disciplines which a director of rehabilitation could not complete secondary to skill level required., OT focused sequencing of UE placement and cueing for safety during sit to stand transfer, PT focus on placement of LE and overall gross movement throughout transfer. Pt self propelled w/c back to room with min assistance guiding w/c in proper direction/turning w/c. Noted decreased UE strength. Once in room, sit to stand lift used secondary to decreased LE/UE strength, and total assist for mobility. Pt performed sit to supine with min A. Polar pack placed on pt's R knee and RLE placed in CPM. Pt laying in bed at end of session, call light in reach and needs met. Education OT Patient Education: Correct positioning, Energy conservation, Progress toward Goal/Update tx plan, Purpose of tx/functional activities, Transfer techniques, W/C management Teaching Recipient: Patient, Family Teaching Methods: Demonstration, Discussion Response to Teaching: Verbalize Understanding, Return Demonstration OT Short Term Goals Short Term Goals Time Frame: Jan 31, 2019 Eating(FIM): 5 Grooming(FIM): 5 Bathing(FIM): 4 Upper Body Dressing(FIM): 4 Lower Body Dressing(FIM): 4 Toileting(FIM): 3 Transfers (B,C,W/C) (FIM): 4 Toilet/Commode Transfer(FIM): 4 Shower Transfer(FIM): 4 1=Demonstrate adherence to instructed precautions during ADL tasks. 2=Patient will verbalize/demonstrate understanding of assistive de vices/modifications for ADL. 3=Patient will improve strength/tolerance for activity to enable patient to perform ADL's. OT Coin Machine Assembler Goals Fdc Goals Time Frame: Feb 07, 2019 Eating (FIM): 6 Eating (QC): 6 Groomin Oral Hygiene (QC): 6 Bathing(FIM): 4 Shower/Bathe Self (QC): 4 Upper Body Dressing(FIM): 5 Upper Body Dressing (QC): 4 Lower Body Dressing(FIM): 5 Lower Body Dressing (QC): 4 On/Off Footwear (QC): 4 Toileting(FIM): 5 Toileting Hygiene (QC): 4 Transfers (B,C,W/C) (FIM): 5 Toilet/Commode Transfer(FIM): 5 Toilet/Commode Transfer (QC): 4 Shower Transfer(FIM): 4 Additional Goals: 1-Demonstrate ADL Tasks, 2-Verbalize Understanding, 3- ImproveStrength/Glenn 1=Demonstrate adherence to instructed precautions during ADL tasks. 2=Patient will verbalize/demonstrate understanding of assistive devices/modifications for ADL. 3=Patient will improve strength/tolerance for activity to enable patient to perform ADL's. OT Education/Plan Problem List/Assessment Assessment: Decreased Activ Tolerance, Decreased UE Strength, Dependent [place] sfers, Impaired Bed Mobility, Impaired Funct Balance, Impaired Self-Care Skills Discharge Recommendations Plan/Recommendations: Continue POC Treatment Plan/Plan of Care Treatment,Training & Education: Yes Patient would benefit from OT for education, treatment and training to promote independence in ADL's, mobility, safety and/or upper extremity function for ADL's. Plan of Care: ADL Retraining, Functional Mobility, Group Exercise/Act as Ind, UE Funct Exercise/Act Treatment Duration: Feb 07, 2019 Frequency: At least 5 of 7 days/Wk (IRF) Estimated Hrs Per Day: 1.5 hours per day Agreement: Yes Rehab Potential: Good Time/GCodes Start Time: 15:00 Stop Time: 15:23 Total Time Billed (hr/min): 23 Billed Treatment Time Co treat with PT (23 min) 1, ADL 2 X23 min JHONATAN KLEIN OT Jan 24, 2019 15:35
--- NOTE | 2019-01-24 15:40 | Consultation-Cardiology ---
HPI-Cardiology Cardiology Consultation: Date of Consultation 01/24/19 Date of Admission 01-24-19 Attending Physician Aylin Juárez DO Admitting Physician Mirza Bach MD Consulting Physician Josh Giraldo MD HPI: Mr. Barbour is an an 78 year old male admitted to [facility]. He underwent R TKR by Dr. Byrnes on 01-23-19. [id number] Hx Patient Social History Marrital Status: Employed/Student: retired Former smoker/When Quit: Sep 10, 1995 Type Used: Cigarettes 2nd Hand Smoke Exposure: No Immunizations Up To Date Date of Pneumonia Vaccine: Feb 04, 2013 Date of Influenza Vaccine: Feb 20, 2018 Past Medical History PMH As described under Assessment. Family Medical History Family History: Alcoholism 19 FATHER Completed stroke 19 MOTHER Diabetes mellitus 19 MOTHER G8 SISTER FH: pancreatic cancer G8 BROTHER Allergies and Home Medications Allergies Coded Allergies: No Known Drug Allergies (Unverified , 03/07/18) Home Medications Aspirin 81 Mg Tablet.dr, 81 MG PO DAILY, (Reported) Atorvastatin Calcium 40 Mg Tablet, 40 MG PO DAILY, (Reported) Cyanocobalamin (Vitamin B-12) 1,000 Mcg Tablet, 1,000 MCG PO DAILY, (Reported) Desmopressin Acetate 0.2 Mg Tablet, 0.6 MG PO HS, (Reported) TAKES 3 (0.2MG) TABLETS Duloxetine HCl 60 Mg Capsule.dr, 60 MG PO HS, (Reported) Furosemide 40 Mg Tablet, 40 MG PO DAILY, (Reported) Gluc Beckham/Chondro Beckham A/Vit C/Mn 1 Each Tablet, 1 TAB PO DAILY, (Reported) Levothyroxine Sodium 50 Mcg Tablet, 50 MCG PO DAILY, (Reported) TAKE ALONG WITH 200MCG TABLET Levothyroxine Sodium 200 Mcg Tablet, 200 MCG PO DAILY, (Reported) TAKE ALONG WITH 50MCG TABLET Losartan Potassium 100 Mg Tablet, 100 MG PO DAILY, (Reported) Metformin HCl 1,000 Mg Tab.er.24, 1,000 MG PO BID WITH MEALS, (Reported) Mirabegron 50 Mg Tab.er.24h, 50 MG PO 1200, (Reported) Mv-Mn/FA/Lycopene/Lut/Hb#178 1 Each Tablet, 1 TAB PO DAILY, (Reported) [place] 3 Polyunsat Fatty Acids 1,000 Mg Cap, 1,000 MG PO DAILY, (Reported) Pantoprazole Sodium 40 Mg Tablet., 40 MG PO 1800, (Reported) Potassium Chloride 8 Meq Tablet.er, 8 MEQ PO DAILY, (Reported) Pregabalin 150 Mg Capsule, 150 MG PO BID, (Reported) Saw [place] Fruit 450 Mg Capsule, 450 MG PO DAILY, (Reported) Solifenacin Succinate 5 Mg Tablet, 5 MG PO 1800, (Reported) Tamsulosin HCl 0.4 Mg Cap, 0.4 MG PO 1800, (Reported) Zinc 50 Mg Tablet, 50 MG PO DAILY, (Reported) Patient Home Medication List Home Medication List Reviewed: Yes Physical Exam-Cardiology Physical Exam Vital Signs/I&O 01/24/19 01/25/19 21:00 06:00 Temp 99.0 Pulse 105 Resp 18 B/P (MAP) 99/62 (74) Pulse Ox 94 93 O2 Delivery Room Air Room Air 01/24/19 23:59 Intake Total 850 ml Output Total 850 ml Balance 0 ml Capillary Refill : Data Review Labs Laboratory Tests 01/24/19 15:39: Glucometer 117H 01/24/19 20:38: Glucometer 129H 01/25/19 05:47: Glucometer 124H 01/25/19 05:48: White Blood Count 7.9, Red Blood Count 3.80L, Hemoglobin 10.7L, Hematocrit 33L, Mean Corpuscular Volume 88, Mean Corpuscular Hemoglobin 28, Mean Corpuscular Hemoglobin Concent 32, Red Cell Distribution Width 16.3H, Platelet Count 226, Mean Platelet Volume 10.9H, Neutrophils (%) (Auto) 76H, Lymphocytes (%) (Auto) 12, Monocytes (%) (Auto) 10, Eosinophils (%) (Auto) 1, Basophils (%) (Auto) 0, Neutrophils # (Auto) 6.0, Lymphocytes # (Auto) 0.9L, Monocytes # (Auto) 0.8, Eosinophils # (Auto) 0.1, Basophils # (Auto) 0.0, Sodium Level 139, Potassium Level 4.3, Chloride Level 103, Carbon Dioxide Level 25, Anion Gap 11, Blood Urea Nitrogen 19H, Creatinine 0.80, Estimat Glomerular Filtration Rate > 60, BUN/Creatinine Ratio 24, Glucose Level 127H, Calcium Level 9.6, Corrected Calcium 10.2H, Total Bilirubin 0.6, Aspartate Amino Transf (AST/SGOT) 24, Alanine Aminotransferase (ALT/SGPT) 21, Alkaline Phosphatase 69, Total Protein 6.4, Albumin 3.2 A/P-Cardiology Assessment/Admission Diagnosis H/O CAD, s/p two cor stents in 1995 following [place], details unknown MPI of January 19, 2019 showed no evidence of any significant myocardial ischemia or infarction. LVEF 91% Echocardiogram of 01-19-19 showed concentric hypertrophy. LVEF 70-75%. LA mod dilated. Severe Ao stenosis, mean gradient 53 mmHg, valve area 1.1 sq sm. RVSP 20 mmHg. Mild MR. S/P right TKR on 01-23-[address] Byrnes Quit smoking in 1995 H/o hypertension DJD H/o hyperlipidemia - statin tx - followed by his PCP LILIAN, non-compliant with CPAP Mild COPD on PFTs of Mar 2019 MILAGROS FONTANEZ Jan 24, 2019 15:40
[2019-01-24] MEDS ORDERED: morphine INJ 4 MG/ML 1 ML (VIAL/SYRINGE) IVP PRN (16:00)
[2019-01-24] MEDS ORDERED: diphenhydrAMINE 50 MG/ML INJ (BENADRYL) IV PRN (16:00)
[2019-01-24] MEDS: HYDROcodone/APAP 10 MG/325 MG (LORTAB) TAB PO PRN ×2 (16:05→20:22)
[2019-01-24] MEDS: inSUlin ASPART (NovoLOG) 1 UNIT/0.01 ML (CHARGE PER UNIT) SC SCH ×2 (16:08→21:28)
--- NOTE | 2019-01-24 16:22 | Physical Therapy Daily Note ---
PT Daily Note-Current Subjective Agrees to PT treatment. Transfers Therapy Code Descriptions/Definitions Functional [place] Measure: 0=Not Assessed/NA 4=Minimal Assistance 1=Total Assistance 5=Supervision or Setup 2=Maximal Assistance 6=Modified [place] 3=Moderate Assistance 7=Complete [place] Therapy Quality Codes: 6 Independent with activity with or without an assistive device 5 Patient requires set up or clean up by helper. Patient completes activity by themselves 4 Supervision or touching assist (CGA). [place] provide cues , steadying assist 3 The helper provides less than half the effort to complete the activity 2 The helper provides more than half the effort to complete the activity 1 Dependent. The helper does all the effort to complete an activity 7 Patient refused to complete or attempt activity 9 The patient did not perform the activity before the current illness or injury 88 Not attempted due to Medical conditions or safety concerns Weight Bearing Right Lower Extremity: Right Weight Bearing/Tolerated Left Lower Extremity: Left Full Weight Bearing Treatments Co treat with OT for functional mobility; skill of 2 clinicians indicated due to the complexity of transfer need/assist and the need to coordinate U/LE movement and use. Addressed functional transfers and initiated sit to stand activity in the // bars. PT Short Term Goals Short Term Goals Time Frame: Feb 07, 2019 Transfers (B,C,W/C) (FIM): 4 Gait (FIM): 2 Distance (FIM): 1=up to 49 ft Gait Assistive Device: FWW Wheelchair (FIM): 6 Wheelchair distance (FIM): 3=150 ft PT Snf Goals Snf Goals PT Snf Goals Time Frame: Feb 21, 2019 Transfers (B,C,W/C) (FIM): 5 Sit to Lying (QC): 6 Lying-Sitting on Side/Bed(QC): 6 Sit to Stand (QC): 6 Rollin Roll Left to Right (QC): 6 Chair/Ghg-[place] Xfer(QC): 5 Car Transfer (QC): 4 Does the Patient Walk: No and Walking Goal IS indicated Gait (FIM): 2 Gait distance (FIM): 1=up to 49 ft Distance: 20 ft Walk 10 feet (QC): 6 Walk 10ft-Uneven Surface(QC): 4 Walk 50ft with 2 Turns (QC): 88 Walk 150 ft (QC): 88 Gait Assistive Device: FWW Does the Pt use WC or Scooter?: Yes Wheelchair (FIM): 6 Wheelchair distance (FIM): 3=150 ft Wheel 50 feet with 2 turns (QC: 6 Stairs (FIM): 0 1 Step (curb) (QC): 9 4 Steps (QC): 9 12 Steps (QC): 9 Picking up an Object (QC): 88 PT Plan Problem List Problem List: Activity Tolerance, Functional Strength, Safety Treatment/Plan Treatment Plan: Continue Plan of Care Treatment Plan: Bed Mobility, Education, Functional Activity Glenn, Functional Strength, Group Therapy, Gait, Safety, Therapeutic Exercise, Transfers Treatment Duration: Feb 21, 2019 Frequency: At least 5 of 7 days/Wk (IRF) Estimated Hrs Per Day: 1.5 hours per day Patient and/or Family Agrees t: Yes Time/GCodes Time In: 1430 Time Out: 1440 Total Billed Treatment Time: 10 Total Billed Treatment visit FA 10 CIRO JIMENEZ PT Jan 24, 2019 16:22
[2019-01-24] MEDS: TROSPIUM 20 MG (SANCTURA) TAB PO SCH (16:49)
[2019-01-24 18:00] VITALS: BP 94/62
[2019-01-24] MEDS: TAMSULOSIN 0.4 MG (FLOMAX) CAP PO SCH (18:30)
[2019-01-24] MEDS: PANTOPRAZOLE 40 MG (PROTONIX) TAB PO SCH (18:30)
[2019-01-24] MEDS: ENOXAPARIN 40 MG/0.4 ML (LOVENOX) SYR SC SCH (18:31)
--- NOTE | 2019-01-24 18:35 | Consultation-Cardiology ---
HPI-Cardiology Cardiology Consultation: Date of Consultation 01/24/19 Time Seen by a Provider: 16:15 Date of Admission Attending Physician Aylin Juárez DO Admitting Physician Mirza Bach MD Consulting Physician DONN THEODORE MD, MA, FACP, FACC, FSCAI, CCDS Physician requesting consult: Dr Juárez HPI: Chief Complaint: Reason for consultation: H/o CAD HPI Mr. Barbour is an an 78 year old male who underwent R TKR by Dr. Byrnes on 01-23-19. Dr Juárez has asked us to see him because of a h/o CAD. He does not report cp or palp or syncope or shortness of breath Review of Systems-Cardiology Review of Systems Constitutional: malaise; No weight loss, No weight gain Eyes: No vision change Ears/Nose/Throat: No ear discharge, No nasal drainage, No recent hearing loss Respiratory: As described under HPI Cardiovascular: As described under HPI Gastrointestinal: No constipation, No diarrhea, No nausea, No vomiting Genitourinary: No dysuria, No hematuria, No urine frequency changes Musculoskeletal: other (chronic joint and back pain) Skin: No rash, No ulcerations Psychiatric/Neurological: No seizure, No focal weakness, No syncope TPC-Xrzrtu-Qoryll Hx Patient Social History Marrital Status: Employed/Student: retired Former smoker/When Quit: Sep 10, 1995 Type Used: Cigarettes 2nd Hand Smoke Exposure: No Recent Foreign Travel: No Recent Infectious Disease Expo: No Immunizations Up To Date Date of Pneumonia Vaccine: Feb 04, 2013 Date of Influenza Vaccine: Feb 20, 2018 Past Medical History PMH As described under Assessment. Family Medical History Family History: Alcoholism 19 FATHER Completed stroke 19 MOTHER Diabetes mellitus 19 MOTHER G8 SISTER FH: pancreatic cancer G8 BROTHER Allergies and Home Medications Allergies Coded Allergies: No Known Drug Allergies (Unverified , 03/07/18) Home Medications Aspirin 81 Mg Tablet.dr, 81 MG PO DAILY, (Reported) Atorvastatin Calcium 40 Mg Tablet, 40 MG PO DAILY, (Reported) Cyanocobalamin (Vitamin B-12) 1,000 Mcg Tablet, 1,000 MCG PO DAILY, (Reported) Desmopressin Acetate 0.2 Mg Tablet, 0.6 MG PO HS, (Reported) TAKES 3 (0.2MG) TABLETS Duloxetine HCl 60 Mg Capsule.dr, 60 MG PO HS, (Reported) Furosemide 40 Mg Tablet, 40 MG PO DAILY, (Reported) Gluc [place]/Chondro Beckham A/Vit C/Mn 1 Each Tablet, 1 TAB PO DAILY, (Reported) Levothyroxine Sodium 50 Mcg Tablet, 50 MCG PO DAILY, (Reported) TAKE ALONG WITH 200MCG TABLET Levothyroxine Sodium 200 Mcg Tablet, 200 MCG PO DAILY, (Reported) TAKE ALONG WITH 50MCG TABLET Losartan Potassium 100 Mg Tablet, 100 MG PO DAILY, (Reported) Metformin HCl 1,000 Mg Tab.er.24, 1,000 MG PO BID WITH MEALS, (Reported) Mirabegron 50 Mg Tab.er.24h, 50 MG PO 1200, (Reported) Mv-Mn/FA/Lycopene/Lut/Hb#178 1 Each Tablet, 1 TAB PO DAILY, (Reported) [place] 3 Polyunsat Fatty Acids 1,000 Mg Cap, 1,000 MG PO DAILY, (Reported) Pantoprazole Sodium 40 Mg Tablet.dr, 40 MG PO 1800, (Reported) Potassium Chloride 8 Meq Tablet.er, 8 MEQ PO DAILY, (Reported) Pregabalin 150 Mg Capsule, 150 MG PO BID, (Reported) Saw [place] Fruit 450 Mg Capsule, 450 MG PO DAILY, (Reported) Solifenacin Succinate 5 Mg Tablet, 5 MG PO 1800, (Reported) Tamsulosin HCl 0.4 Mg Cap, 0.4 MG PO 1800, (Reported) Zinc 50 Mg Tablet, 50 MG PO DAILY, (Reported) Patient Home Medication List Home Medication List Reviewed: Yes Physical Exam-Cardiology Physical Exam Vital Signs/I&O Capillary Refill : Constitutional: AAO x 3, well-developed, well-nourished HEENT: PERRL, EOMI; No xanthelasmas are seen Neck: carotid pulses are 2 + bilaterally, with good upstrokes Respiratory: No accessory muscle use; lungs clear to percussion, lungs clear to auscultation Cardiovascular: regular rate-rhythm, S1 and S2, systolic murmur (2/6 JARAD) Gastrointestinal: No tender, No guarding, No rebound; audible bowel sounds Extremities: No clubbing, No cyanosis, No significant edema Neurologic/Psychiatric: oriented x 3, other (moves all limbs equally; we did not attempt any motion at the R knee), grossly intact Skin: No rash on exposed areas, No ulcerations on exposed areas Data Review Labs Laboratory Tests 01/24/19 15:39: Glucometer 117H A/P-Cardiology Assessment/Admission Diagnosis H/O CAD, s/p two cor stents in 1995 following [place], details unknown MPI of January 19, 2019 showed no evidence of any significant myocardial ischemia or infarction. LVEF 91% Echocardiogram of 01-19-19 showed concentric hypertrophy. LVEF 70-75%. LA mod dilated. Severe Ao stenosis, mean gradient 53 mmHg, valve area 1.1 sq sm. RVSP 20 mmHg. Mild MR. S/P right TKR on 01-23-[address] Byrnes Quit smoking in 1995 H/o hypertension DJD H/o hyperlipidemia - statin tx - followed by his PCP LILIAN, non-compliant with CPAP Mild COPD on PFTs of Mar 2019 Discussion and Recomendations * I had a detailed discussion with him regarding his CV issues * Continue current regimen * Monitor labs DONN THEODORE MD FACP FAC CCDS Jan 24, 2019 18:34
[2019-01-24] MEDS ORDERED: LOPERAMIDE 2 MG (IMODIUM) TABLET PO PRN (19:30)
[2019-01-24] MEDS ORDERED: ONDANSETRON 4 MG (ZOFRAN) ORAL DISSOLVE TAB PO PRN (19:30)
[2019-01-24] MEDS ORDERED: CALCIUM CARBONATE 500 MG (TUMS) TAB.CHEW PO PRN (19:30)
[2019-01-24] MEDS ORDERED: diphenhydrAMINE 25 MG TAB (BENADRYL) PO PRN (19:30)
[2019-01-24] MEDS ORDERED: ONDANSETRON 4 MG/2 ML (SDV) Z0FRAN IVP PRN (19:30)
[2019-01-24] MEDS ORDERED: ACETAMINOPHEN 500 MG TAB (TYLENOL) PO PRN (19:30)
--- NOTE | 2019-01-24 19:30 | PM&R H&P / Post Admit Assess ---
History of Present Illness HPI/Chief Complaint CC: Debility following right total knee replacement uncomplicated by Dr. Byrnes POD # 1 HPI: This is a 78yoWM who is s/p uncomplicated right total knee replacement by Dr. Byrnes who is currently in need of intensive therapy in order to return home of which the last several years he went from using a can to a walker and then wheelchair bound for the past three years due to right knee pain and unable to ambulate. He does have all the assistive devices and wheelchair friendly house but he would like to improve him ambulation, improve the safety of his transfers and lessen the burden of care for his of 58 years. His PCP is Dr. Bach and Dr. Giraldo sees him after recently becoming established last week for a heart attack he had in 1995 and a cardiac murmur. (EST was normal). He is currently doing well and remains with a Anguiano catheter due to the inability to get out of bed so he would like to keep that in for a little while longer in order to prevent incontinence and other issues. He has not had a BM but is eating and drinking well. He is supposed to wear CPAP but is noncompliant and denies wearing oxygen at home. At this current time pt pain is well controlled at a 3 currently. He has a CPM machine on board and I did update Dr. Byrnes on the fact that we would admit him to inpatient rehab to return to prior level of functioning or a little better in order to regain independence in ADLs and ambulation at home. 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 The pt has no new complaints at this time. Source: patient Exam Limitations: no limitations Date Seen 01/24/19 Time Seen by a Provider: 16:15 Attending Physician Aylin Berumen DO PCP Mirza Bach MD Referring Physician Date of Admission Jan 24, 2019 at 13:00 Home Medications & Allergies Home Medications Reviewed patient Home Medication Reconciliation performed by pharmacy medication reconciliations pipe testing technician and/or nursing. Patients Allergies have been reviewed. 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) Former Smoker, Quit: Feb 22, 1994 Type Used: Cigarettes 2nd Hand Smoke Exposure: No Recent Foreign Travel: No Contact w/other who traveled: No Recent Hopitalizations: No Recent Infectious Disease Expo: No Immunizations Up To Date Date of Pneumonia Vaccine: Feb 04, 2013 Date of Influenza Vaccine: Feb 20, 2018 Seasonal Allergies Seasonal Allergies: No Past Medical History Surgeries: Abdominal (hernia), Appendectomy, Gallbladder, Orthopedic Respiratory: Sleep Apnea Currently Using CPAP: No Currently Using BIPAP: No Cardiac: Chronic Edema/Swelling, Coronary Artery Disease, Heart Attack (1995), Heart Murmur, High Cholesterol, Hypertension Aortic stenosis as I recall not critical or severe Neurological: Neuropathy Reproductive: No Sexually Transmitted Disease: No HIV/AIDS: No Genitourinary: Benign Prostatic Hyperpl, Bladder Infection, Kidney Stones, UTI- Chronic Gastrointestinal: Gastroesophageal Reflux, Chronic Constipation Musculoskeletal: Arthritis, Chronic Back Pain, Gout Endocrine: Diabetes, Non-Insulin dep HEENT: Cataract History of Blood Disorders: No Adverse Reaction to Blood [place]: No Family History Alcoholism 19 FATHER Completed stroke 19 MOTHER Diabetes mellitus 19 MOTHER G8 SISTER FH: pancreatic cancer G8 BROTHER Review of Systems Constitutional: see HPI EENTM: no symptoms reported Respiratory: no symptoms reported Cardiovascular: no symptoms reported Gastrointestinal: constipation Genitourinary: no symptoms reported Musculoskeletal: back pain, joint pain Skin: no symptoms reported Psychiatric/Neurological: No Symptoms Reported All Other Systems Reviewed Negative Unless Noted: Yes Physical Exam Exam Vital Signs Vital Signs Date Time Temp Pulse Resp B/P (MAP) Pulse Ox O2 Delivery O2 Flow Rate FiO2 01/24/19 18:00 100.5 103 18 94/62 (73) 93 Room Air Capillary Refill : General Appearance: No Apparent Distress, WD/WN, Chronically ill, Obese HEENT: PERRL/EOMI, Normal ENT Inspection, Pharynx Normal Neck: Full Range of Motion, Normal Inspection, Non Tender, Supple Respiratory: Chest Non Tender, Lungs Clear, Normal Breath Sounds, No Accessory Muscle Use, No Respiratory Distress Cardiovascular: Regular Rate, Rhythm, Systolic Murmur, Other (Systolic ejection murmor, 3/6 with radiation to carotids) Gastrointestinal: Normal Bowel Sounds, No Organomegaly, No Pulsatile Mass, Non Tender, Soft Rectal: Deferred Back: Normal Inspection, No CVA Tenderness Extremity: Normal Capillary Refill, Normal Inspection, Normal Range of Motion (except right leg), Non Tender, No Calf Tenderness, Pedal Edema Neurologic/Psychiatric: Alert, Oriented x3, No Motor/Sensory Deficits, Normal 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 Assessment/Plan Assessment and Plan Assess & Plan/Chief Complaint A/P: IRF protocols BM regimen Pain control Lovenox Consult Dr Giraldo [place] meds (1) Status post total right knee replacement Status: Acute (2) LILIAN (obstructive sleep apnea) Status: Chronic (3) Postoperative anemia Status: Acute (4) Constipation Status: Chronic Qualifiers: Constipation type: slow transit constipation Qualified Codes: K59.01 - Slow transit constipation (5) Anguiano catheter in place Status: Acute (6) Systolic murmur Status: Chronic (7) CAD (coronary artery disease) Status: Chronic Qualifiers: Coronary Disease-Associated Artery/Lesion type: [place] artery [place] vs. transplanted heart: [place] heart Associated angina: without angina Qualified Codes: I25.10 - Atherosclerotic heart disease of [place] coronary artery without angina pectoris (8) History of coronary artery stent placement Status: Chronic (9) GERD without esophagitis Status: Chronic (10) Type II diabetes mellitus Status: Chronic Qualifiers: Diabetes mellitus mcc insulin use: without osteopathy doctor use Diabetes mellitus complication status: with circulatory complication Diabetes mellitus complication detail: with other circulatory complications Qualified Codes: E11.59 - Type 2 diabetes mellitus with other circulatory complications (11) BPH (benign prostatic hyperplasia) Status: Chronic Qualifiers: Lower urinary tract symptom presence: unspecified whether lower urinary tract symptoms present Qualified Codes: N40.0 - Benign prostatic hyperplasia without lower urinary tract symptoms (12) Hypothyroidism Status: Chronic Qualifiers: Hypothyroidism type: acquired Qualified Codes: E03.9 - Hypothyroidism, unspecified (13) Essential hypertension Status: Chronic (14) Renal calculus Status: Chronic Post Admission Physician Asses Date seen by provider: Jan 24, 2019 Time seen by provider: 16:15 Admisison Dx: (1) Status post total right knee replacement Status: Acute The preadmission screen agrees with the post admission assessment that the patient is a good candidate for inpatient rehabilitation. The patient will have a comprehensive program of inpatient rehabilitation with a goal of maximizing level of functional independence prior to discharge home with family. The patient will have PT/OT ninety minutes per day, each discipline, five days a week for gait, strengthening, conditioning, balance, ADLs, any patient/family/caregiver training as necessary. Speech therapy to do cognitive assessment and treat as indicated. Rehabilitation nursing to assist with bowel, bladder, skin, wound care, medication administration, pain management. Heel Seater to assist with discharge planning, community reentry. SCD's for DVT prophylaxis. He appears to be well motivated to participate in three hours of therapy a day. He should be able to tolerate three hours of therapy a day from a medical standpoint. He should benefit from the three hours of therapy a day. He has a reasonable discharge plan, reasonable discharge rehabilitation goals and a supportive family. He has various comorbidities that need to be closely monitored with medications and treatments adjusted on a daily basis as needed. These include: see list Barriers to discharge for this patient who had been independent prior to this are for him to be modified independent to supervision for ADLs and mobility skills prior to discharge home with family, so as to lessen the burden of the caregivers. Risks for this patient include: 1. Fall 2. Fracture 3. DVT 4. Pulmonary embolism 5. Wound infection 6. Skin breakdown 7. Contractures 8. Poorly controlled pain 9. Urinary retention 10. UTI 11. Respiratory infection 12. Aspiration Estimated Length of Stay: 10 days Prognosis: Rehab prognosis appears good for goal of discharge home with family modified independent to supervision for ADLs and mobility skills. AYLIN BERUMEN DO Jan 24, 2019 19:30
[2019-01-24] MEDS ORDERED: PREGABALIN 150 MG (LYRICA) CAPSULE ONE (20:09)
[2019-01-24] MEDS: PREGABALIN 150 MG (LYRICA) CAPSULE PO SCH (20:18)
[2019-01-24] MEDS: MELATONIN 3 MG TABLET PO PRN (20:19)
[2019-01-24] MEDS: POLYETHYLENE GLYCOL 17 GM (MIRALAX) PACK PO SCH (20:20)
[2019-01-24] MEDS: BISACODYL 10 MG SUPP (DULCOLAX) PR SCH (20:22)
[2019-01-24] MEDS: SENNA W/DOCUSATE (SENOKOT S) TABLET PO SCH (20:22)
[2019-01-25] MEDS: HYDROcodone/APAP 10 MG/325 MG (LORTAB) TAB PO PRN ×4 (00:24→19:59)
[2019-01-25] MEDS: inSUlin ASPART (NovoLOG) 1 UNIT/0.01 ML (CHARGE PER UNIT) SC SCH ×2 (05:50→12:08)
[2019-01-25 06:00] VITALS: BP 99/62
[2019-01-25] MEDS: TROSPIUM 20 MG (SANCTURA) TAB PO SCH ×2 (06:07→17:22)
[2019-01-25] MEDS: PREGABALIN 150 MG (LYRICA) CAPSULE PO SCH ×2 (06:07→21:37)
[2019-01-25] MEDS: LEVOTHYROXINE 50 MCG (LEVOTHROID) TAB PO SCH (06:08)
[2019-01-25 06:28] LABS: BASOPHILS % (AUTO) 0 % (0-10); EOSINOPHILS # (AUTO) 0.1 10^3/uL (0.0-0.3); EOSINOPHILS % (AUTO) 1 % (0-10); HEMATOCRIT 33 % (40-54); HEMOGLOBIN 10.7 G/DL (13.3-17.7); LYMPHOCYTES # (AUTO) 0.9 X 10^3 (1.0-4.0); LYMPHOCYTES % (AUTO) 12 % (12-44); MEAN CORPUSCULAR HEMOGLOBIN 28 PG (25-34); MEAN CORPUSCULAR HGB CONC 32 G/DL (32-36); MEAN CORPUSCULAR VOLUME 88 FL (80-99); MEAN PLATELET VOLUME 10.9 FL (7.4-10.4); MONOCYTES # (AUTO) 0.8 X 10^3 (0.0-1.0); MONOCYTES % (AUTO) 10 % (0-12); NEUTROPHILS % (AUTO) 76 % (42-75); PLATELET COUNT 226 10^3/uL (130-400); RED CELL DISTRIBUTION WIDTH 16.3 % (10.0-14.5); WHITE BLOOD COUNT 7.9 10^3/uL (4.3-11.0)
[2019-01-25 06:47] LABS: ALANINE AMINOTRANSFERASE 21 U/L (0-55); ALBUMIN 3.2 GM/DL (3.2-4.5); ALKALINE PHOSPHATASE 69 U/L (40-136); BILIRUBIN,TOTAL 0.6 MG/DL (0.1-1.0); BUN/CREATININE RATIO 24; CALCIUM 9.6 MG/DL (8.5-10.1); CARBON DIOXIDE 25 MMOL/L (21-32); CHLORIDE 103 MMOL/L (98-107); GFR ESTIMATED > 60; GLUCOSE 127 MG/DL (70-105); POTASSIUM 4.3 MMOL/L (3.6-5.0); SODIUM 139 MMOL/L (135-145); TOTAL PROTEIN 6.4 GM/DL (6.4-8.2)
[2019-01-25] MEDS ORDERED: LEVOTHYROXINE 100 MCG (LEVOTHROID) TAB PO NR (08:00)
[2019-01-25 08:25] VITALS: BP 90/55
--- NOTE | 2019-01-25 08:34 | Progress Note - Hospitalist ---
[facility] 01/25/19 0834: Progress Note Mr. Barbour had no acute events overnight He complained of increased cramping calf pain 2/2 to knee mobilization device, improved when removed from mobilizer No BM since surgery. He has +BSx4 and is passing gas. This is his baseline. He will often go 4-5 days, and up to a week between bowel movements - stay on bowel care and monitor AYLIN JUÁREZ DO 01/25/192020: Supervisory-Addendum Brief Verification & Attestation Participated in pt care: history, MDM, physical Personally performed: exam, history, MDM, supervision of care Care discussed with: Medical Student Procedures: n/a Results interpretation: Verified all documentation Verification and Attestation of Medical Student E/M Service A medical student performed and documented this service in my presence. I reviewed and verified all information documented by the medical student and made modifications to such information, when appropriate. I personally performed the physical exam and medical decision making. Aylin Juárez, Jan 25, 2019,20:21 [facility] Jan 25, 2019 08:34 AYLIN JUÁREZ DO Jan 25, 2019 20:21
[2019-01-25] MEDS: ASPIRIN 81 MG CHEW (CHILDREN'S ASA) PO SCH (08:37)
[2019-01-25] MEDS: SENNA W/DOCUSATE (SENOKOT S) TABLET PO SCH ×2 (08:38→21:37)
[2019-01-25] MEDS: POLYETHYLENE GLYCOL 17 GM (MIRALAX) PACK PO SCH ×2 (08:38→21:37)
[2019-01-25] MEDS ORDERED: LOSARTAN 100 MG (COZAAR) TABLET PO SCH (09:00)
[2019-01-25] MEDS ORDERED: FUROSEMIDE 40 MG (LASIX) TAB PO SCH (09:00)
--- NOTE | 2019-01-25 09:22 | PM&R Progress Note ---
Subjective HPI/CC On Admission Date Seen by Provider: Jan 25, 2019 Time Seen by Provider: 09:15 CC: Debility following right total knee replacement uncomplicated by Dr. Byrnes POD # 1 HPI: This is a 78yoWM who is s/p uncomplicated right total knee replacement by Dr. Byrnes who is currently in need of intensive therapy in order to return home of which the last several years he went from using a can to a walker and then wheelchair bound for the past three years due to right knee pain and unable to ambulate. He does have all the assistive devices and wheelchair friendly house but he would like to improve him ambulation, improve the safety of his transfers and lessen the burden of care for his of 56 years. His PCP is Dr. Bach and Dr. Giraldo sees him after recently becoming established last week for a heart attack he had in 1995 and a cardiac murmur. (EST was normal). He is currently doing well and remains with a Anguiano catheter due to the inability to get out of bed so he would like to keep that in for a little while longer in order to prevent incontinence and other issues. He has not had a BM but is eating and drinking well. He is supposed to wear CPAP but is noncompliant and denies wearing oxygen at home. At this current time pt pain is well controlled at a 3 currently. He has a CPM machine on board and I did update Dr. Byrnes on the fact that we would admit him to inpatient rehab to return to prior level of functioning or a little better in order to regain independence in ADLs and ambulation at home. 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 The pt has no new complaints at this time. Subjective/Events-last exam Pt had a pretty good night. Anguiano cath will either be discontinued today or tomorrow. Temperature today is 99.0 down from 100.4 last night but that is common after a knee replacement. Using IS. BP is a little bit low so Dr. Giraldo was consulted and he may require a little bit of IV fluid at holding Lasix depending on how things go because he could be come orthostatic working with PT. Appreciate Dr. Giraldo consult. Discontinue Acu-Checks. Overall very happy to be here. Checked meds and labs. Reviewed therapy notes. Conferred with RN. Talked to daughter. MiraLax and Senna will continue to be on board, may need suppository and soap suds enema if needed. Review of Systems General: Fatigue Pulmonary: Dyspnea Gastrointestinal: Constipation Musculoskeletal: leg pain Neurological: Weakness Objective Exam Vital Signs Vital Signs Date Time Temp Pulse Resp B/P (MAP) Pulse Ox O2 Delivery O2 Flow Rate FiO2 01/25/19 12:05 98.9 95 20 111/73 (86) 96 Room Air Capillary Refill : General Appearance: No Apparent Distress, WD/WN, Chronically ill HEENT: PERRL/EOMI, Normal ENT Inspection, Pharynx Normal Neck: Full Range of Motion, Normal Inspection, Non Tender, Supple Respiratory: Chest Non Tender, Lungs Clear, No Accessory Muscle Use, No Respiratory Distress, Decreased Breath Sounds Cardiovascular: Regular Rate, Rhythm, Systolic Murmur, Other (Systolic ejection murmor, 3/6 with radiation to carotids) Gastrointestinal: Normal Bowel Sounds, No Organomegaly, No Pulsatile Mass, Non Tender, Soft Rectal: Deferred Back: Normal Inspection, No CVA Tenderness Extremity: Normal Capillary Refill, Normal Inspection, Normal Range of Motion (except right leg), Non Tender, No Calf Tenderness, Pedal Edema Neurologic/Psychiatric: Alert, Oriented x3, No Motor/Sensory Deficits, Normal 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 FIM Transfers Therapy Code Descriptions/Definitions Functional [place] Measure: 0=Not Assessed/NA 4=Minimal Assistance 1=Total Assistance 5=Supervision or Setup 2=Maximal Assistance 6=Modified [place] 3=Moderate Assistance 7=Complete [place] Therapy Quality Codes: 6 Independent with activity with or without an assistive device 5 Patient requires set up or clean up by helper. Patient completes activity by themselves 4 Supervision or touching assist (CGA). [place] provide cues , steadying assist 3 The helper provides less than half the effort to complete the activity 2 The helper provides more than half the effort to complete the activity 1 Dependent. The helper does all the effort to complete an activity 7 Patient refused to complete or attempt activity 9 The patient did not perform the activity before the current illness or injury 88 Not attempted due to Medical conditions or safety concerns Transfers (B, C, W/C) (FIM): 1 (sit to stand lift) Scootin Rollin Roll Left to Right (QC): 3 Supine to/from Sit: 4 (sit to supine min to CGA) Sit to/from Stand: 2 Sit to Lying (QC): 2 (max assist to get legs into bed and for trunk control) Sit to Stand (QC): 1 Chair/Ctc-cj-Csxgr Xfer(QC): 1 Bed to/from Chair: 1 Car Transfer (QC): 88 (unsafe to attempt with sit to stand lift) Gait Training Does the Patient Walk?: No and Walking Goal IS indicated Gait (FIM): 0 (pt unable to come to a full stand to attempt ambulation; requires a mech sit to stand lift to stand up) Distance (FIM): 0=does not occure Walk 10 feet (QC): 88 Walk 50 ft with 2 Turns(QC): 88 Walk 150 ft (QC): 9 Walking 10ft/uneven surface-QC: 88 Gait Assistive Device: FWW Wheelchair Training Does the Pt Use a Wheelchair?: Yes Wheelchair (FIM): 2 Wheelchair Distance: 1=up to 49 ft Wheelchair Level of Assist: 4 Wheel 50 ft with 2 turns (QC): 3 Wheel 150 ft (QC): 2 Type of Wheelchair: Manual Stair Training Stairs (FIM): 0 1 Step (curb) (QC): 88 4 Steps (QC): 88 12 Steps (QC): 88 Balance Picking up an Object (QC): 88 Mental Status/Objective Comprehension: 7 Expression: 7 Social Interaction: 7 Problem Solvin Memory: 7 ADL-Treatment Lower Extremity Dressin (Pt. unable to reach bilateral feet) Lower Body Dressing (QC): 1 On/Off Footwear (QC): 1 Assessment/Plan Assessment and Plan Assess & Plan/Chief Complaint A/P: IRF protocols BM regimen to intensify to prevent ileus Pain control Lovenox Consult Dr Giraldo is appreciated Monitor hypotension Home meds (1) Status post total right knee replacement Status: Acute (2) Primary osteoarthritis of right knee Status: Chronic (3) Essential hypertension Status: Chronic (4) Constipation Status: Chronic Qualifiers: Constipation type: slow transit constipation Qualified Codes: K59.01 - Slow transit constipation (5) CAD (coronary artery disease) Status: Chronic Qualifiers: Coronary Disease-Associated Artery/Lesion type: [place] artery [place] vs. 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 insulin use: without usp use Diabetes mellitus complication status: with circulatory complication Diabetes mellitus complication detail: with other circulatory complications Qualified Codes: E11.59 - Type 2 diabetes mellitus with other circulatory complications (8) LILIAN (obstructive sleep apnea) Status: Chronic (9) Systolic murmur Status: Chronic (10) GERD without esophagitis Status: Chronic (11) Postoperative anemia Status: Acute (12) BPH (benign prostatic hyperplasia) Status: Chronic Qualifiers: Lower urinary tract symptom presence: unspecified whether lower urinary tract symptoms present Qualified Codes: N40.0 - Benign prostatic hyperplasia without lower urinary tract symptoms (13) Anguiano catheter in place Status: Acute (14) History of coronary artery stent placement Status: Chronic DM BERUMEN DO Jan 25, 2019 09:22
--- NOTE | 2019-01-25 09:22 | Individualized Plan of Care ---
Individualized Plan of Care Rehab Nursing IPOC Order Admission Date Jan 24, 2019 at 13:00 Current Orders Orders Admission Order(Inpt,Obs,Sdc) (01/24/19 12:55) Tank Farm Gauger-Inpt Rehab Con (01/24/19 12:55) Rehab Nursing Orders-Ipoc (01/24/19 12:55) Physical Therapy Rehab Orders (01/24/19 12:55) Occupational Therapy Rehab Ord (01/24/19 12:55) Speech Therapy Rehab Orders (01/24/19 12:55) General/Regular (01/24/19 Dinner) Intake & Output 06,14,22 (01/24/19 12:55) Precautions (Aru) (01/24/19 12:55) Weekly Weight (Lbs) WEEK (01/24/19 12:55) Rehab-Intensity Of Therapy (01/24/19 12:55) Initiate Admission Nursing Pro .admission (01/24/19 12:55) Cbc With Automated Diff (01/25/19 06:00) Comprehensive Metabolic Panel (01/25/19 06:00) Consult Cardiology (01/24/19 12:55) Patient Visit (01/24/19 ) Therapeutic, Group (01/24/19 ) Patient Visit (01/24/19 ) Speech Sound Lang Comp (01/24/19 ) Catheter(Urinary) Insert & Ass 03,15 (01/24/19 15:50) Continuous Passive Motion (01/24/19 15:50) Dressing Order (Intervention) ONCE (01/24/19 15:50) Iv Start Anesthesia (Order) (01/24/19 15:50) Oxygen-Administer 07,19 (01/24/19 15:50) Sequential Compression Device 08,20 (01/24/19 15:50) Ángel Hose 09,21 (01/24/19 15:50) General/Regular (01/25/19 Breakfast) Aspirin Chewable Tablet (Baby Aspirin Ch (01/25/19 09:00) Baclofen Tablet (Lioresal Tablet) (01/24/19 16:00) Diphenhydramine Injection (Benadryl Inje (01/24/19 16:00) Enoxaparin Injection (Lovenox Injection) (01/24/19 18:00) Furosemide Tablet (Lasix Tablet) (01/25/19 09:00) Hydrocodone/Apap 10/325 Tablet (Lortab 1 (01/24/19 16:00) Levothyroxine Tablet (Synthroid Tablet) (01/25/19 06:30) Losartan Tablet (Cozaar Tablet) (01/25/19 09:00) Pantoprazole Tablet (Protonix Tablet) (01/24/19 18:00) Tamsulosin Capsule (Flomax Capsule) (01/24/19 18:00) Trospium Tablet (Sanctura Tablet) (01/24/19 16:00) Insulin Aspart (Novolog) (Novolog (Charg (01/24/19 16:00) Morphine Injection (Morphine Injection (01/24/19 16:00) Incentive Spirometry Initial (01/24/19 15:50) Oxygen Delivery Set Up (01/24/19 15:50) Incentive Spirometry (Nursing) Q2H (01/24/19 15:50) Patient Visit (01/24/19 ) Functional Activities, Ea 15 (01/24/19 ) Patient Visit (01/24/19 ) Pt Eval Moderate Complexity (01/24/19 ) Patient Visit (01/24/19 ) Functional Activities, Ea 15 (01/24/19 ) Polyethylene Glycol Powder Pkt (Miralax (01/24/19 21:00) Senna S Tablet (Senokot S Tablet) (01/24/19 21:00) Acetaminophen Tablet (Tylenol Tablet) (01/24/19 19:30) Alprazolam Tablet (Xanax Tablet) (01/24/19 19:30) Calcium Carbonate Chew Tablet (Antacid C (01/24/19 19:30) Diphenhydramine Tablet (Benadryl Tablet) (01/24/19 19:30) Docusate Sodium Capsule (Colace Capsule) (01/24/19 19:30) Bisacodyl Suppository (Dulcolax Supposit (01/24/19 21:00) Loperamide Tablet (Imodium Tablet) (01/24/19 19:30) Melatonin Tablet (Melatonin Tablet) (01/24/19 19:30) Ondansetron Injection (Zofran Injectio (01/24/19 19:30) Ondansetron Oral Dissolve Tab (Zofran (01/24/19 19:30) Pregabalin Capsule (Lyrica Capsule) (01/24/19 21:00) Pregabalin Capsule (Lyrica Capsule) (01/25/19 06:00) Pregabalin Capsule (Lyrica Capsule) (01/24/19 20:09) Ambulate 08,12,20 (01/24/19 20:52) Sequential Compression Device (01/24/19 20:52) Dvt/Vte Risk - Notifiy Physici .ONCE (01/24/19 20:52) Levothyroxine Tablet (Synthroid Tablet) (01/25/19 08:00) Levothyroxine Tablet (Synthroid Tablet) (01/26/19 06:30) Losartan Tablet (Cozaar Tablet) (01/26/19 09:00) Ns Iv 1000 Ml (Sodium Chloride 0.9%) (01/25/19 09:30) Cbc No Diff (01/26/19 05:00) Basic Metabolic Panel (01/26/19 05:00) Patient Visit (01/25/19 ) Functional Activities, Ea 15 (01/25/19 ) Patient Visit (01/25/19 ) Exercise Therap, Ea 15 Min (01/25/19 ) Functional Activities, Ea 15 (01/25/19 ) Rehab Nursing Orders: Ongoing Assess. of Cognitive Status, Ongoing Assess. of Function Status, Bladder Management, Bladder Scan, Bladder Training, Bowel Management, Bowel Training, Disease Management & Educaiton, DVT Prophylaxis, Fall Prevention, Fluid/Electrolyte/Nutrition Mgmt, Infection Prevention, Medication Management & Education, Management of Risks & Complications, Management of Skin Intergrity, Nutrition Management, Pain Management, Patient/Family Support, Safety Management Intensity of Therapy to be met Patient to be seen: 15 hrs over 7 cons. days PT IPOC Problem List: Activity Tolerance, Functional Strength, Safety Treatment Plan: Continue Plan of Care Bed Mobility, Education, Functional Activity Glenn, Functional Strength, Group Therapy, Gait, Safety, Therapeutic Exercise, Transfers Treatment Duration: Feb 21, 2019 Frequency: At least 5 of 7 days/Wk (IRF) Estimated Hrs Per Day: 1.5 hours per day OT IPOC Problems: Decreased Activ Tolerance, Decreased UE Strength, Dependent Transfers, Impaired Bed Mobility, Impaired Funct Balance, Impaired Self-Care Skills OT Treatment, Training and Edu: Yes Plan of Care: ADL Retraining, Functional Mobility, Group Exercise/Act as Ind, UE Funct Exercise/Act Treatment Duration: Feb 07, 2019 Frequency: At least 5 of 7 days/Wk (IRF) Estimated Hrs Per Day: 1.[address] IPOC Speech Therapy Treatment Plan: Discontinue ST Treatment Duration: Jan 24, 2019 Frequency: 1 time per week Estimated Hrs Per Day: .25 hour per day [employer] [place] [employer]er/Case Mgmt [employer] [place] [employer]er/Case Managemen: Discharge Planning Dietitian/Bird Sitter Dietitian/Bird Sitter to monitor nutritional status and make changes and/or recommendations as needed and work with speech pathology on dietary upgrades as the occur. Physician IPOC Medical Issues being managed closely and that require the 24 hour availability of a physician: Aortic stenosis with hypotension will require Cardiology management and close monitoring of LILIAN untreated/non-compliance for respiratory insufficiency Medical Issues: Bowel/Bladder Function, DVT Prophylaxis, Falls Precautions, Fluid/Electrolyte/Nutrition Balance, Infection Protection, Pain Management, Gene ght Bearing Precautions Brief Synthesis of Preadmission Screen, Post-Admission Evaluation, and Therapy Evaluations: PT will focus on increase mobility and ROM right knee replacement and prevent falls OT will focus on ADL regaining independence Medical Prognosis: Good Anticipated Length of Stay: 10 days DM BERUMEN DO Jan 25, 2019 09:22
--- NOTE | 2019-01-25 09:32 | Progress Note - Cardiology ---
Cardiology SOAP Progress Note Subjective: Sitting up in bed eating celery sticks. Denies any c/o CP, palpitations, or dyspnea. Reports dizziness with position changes. Daughter at the bedside. Objective: I&O/Vital Signs 01/25/19 01/25/19 01/25/19 06:00 08:25 08:41 Temp 99.0 99.1 Pulse 105 98 Resp 18 20 B/P (MAP) 99/62 (74) 90/55 (67) Pulse Ox 93 97 O2 Delivery Room Air Room Air Room Air 01/25/19 00:00 Intake Total 850 ml Output Total 850 ml Balance 0 ml Weight (Pounds): 283 Weight (Ounces): 3.0 Weight (Calculated Kilograms): 128.764619 Constitutional: AAO x 3, well-developed, well-nourished Respiratory: lungs clear to percussion, lungs clear to auscultation Cardiovascular: regular rate-rhythm, S1 and S2, systolic murmur Gastrointestional: audible bowel sounds Extremities: No clubbing, No cyanosis, No significant edema Neurologic/Psychiatric: oriented x 3, grossly intact Skin: No rash on exposed areas, No ulcerations on exposed areas Results/Procedures: Labs Laboratory Tests 01/24/19 15:39: Glucometer 117H 01/24/19 20:38: Glucometer 129H 01/25/19 05:47: Glucometer 124H 01/25/19 05:48: White Blood Count 7.9, Red Blood Count 3.80L, Hemoglobin 10.7L, Hematocrit 33L, Mean Corpuscular Volume 88, Mean Corpuscular Hemoglobin 28, Mean Corpuscular Hemoglobin Concent 32, Red Cell Distribution Width 16.3H, Platelet Count 226, Mean Platelet Volume 10.9H, Neutrophils (%) (Auto) 76H, Lymphocytes (%) (Auto) 12, Monocytes (%) (Auto) 10, Eosinophils (%) (Auto) 1, Basophils (%) (Auto) 0, Neutrophils # (Auto) 6.0, Lymphocytes # (Auto) 0.9L, Monocytes # (Auto) 0.8, Eosinophils # (Auto) 0.1, Basophils # (Auto) 0.0, Sodium Level 139, Potassium Level 4.3, Chloride Level 103, Carbon Dioxide Level 25, Anion Gap 11, Blood Urea Nitrogen 19H, Creatinine 0.80, Estimat Glomerular Filtration Rate > 60, BUN/Creatinine Ratio 24, Glucose Level 127H, Calcium Level 9.6, Corrected Joseluis cium 10.2H, Total Bilirubin 0.6, Aspartate Amino Transf (AST/SGOT) 24, Alanine Aminotransferase (ALT/SGPT) 21, Alkaline Phosphatase 69, Total Protein 6.4, Albumin 3.2 A/P: Assessment: Relative hypotension. S/p right TKR on 01-23-[address] Byrnes Severe aortic stenosis. Echocardiogram of 01-19-19 showed concentric hypertrophy. LVEF 70-75%. LA mod dilated. Severe Ao stenosis, mean gradient 53 mmHg, valve area 1.1 sq sm. RVSP 20 mmHg. Mild MR. H/o CAD, s/p two cor stents in 1995 following [place], details unknown MPI of January 19, 2019 showed no evidence of any significant myocardial ischemia or infarction. LVEF 91% Quit smoking in 1995 DJD H/o hyperlipidemia - statin tx - followed by his PCP LILIAN, non-compliant with CPAP Mild COPD on PFTs of Mar 2019 Plan: * Somewhat low BP for which he is symptomatic - we will reduce his antihypertensive regimen * Give gentle IVF hydration * Hold diuretics for now * Continue current regimen * Monitor labs Physician Assessment Physician Assessment No cp or palp or syncope or shortness of breath at rest Lungs: good bilat air entry Cor: reg, 3/6 MSM Ext: mild edema of the affected leg (s/p R TR) A&R * As documented in our note above that I updated (italics) and as noted below * Avoid dehydration (given severe ) * D/c diuretics for now and give NS (see orders) * Monitor labs * I discussed his CV issues in detail with him and his daughter MILAG[place] [employer] Jan 25, 2019 09:32 DONN THEODORE MD [facility] Jan 25, 2019 10:06
[2019-01-25] MEDS: BISACODYL 10 MG SUPP (DULCOLAX) PR SCH ×2 (10:23→21:37)
--- NOTE | 2019-01-25 11:55 | Physical Therapy Daily Note ---
PT Daily Note-Current Subjective Patient in bed pre tx, agrees to PT, no complaints of pain at rest. Will be co- treating with OT due to poor patient mobility, strength, endurance, ROM, balance, the need to coordinate UE and LE activity. Appearance Patient in wheelchair at bedside post tx with nurse call, phone, tray, all needs met. Mental Status Patient Orientation: Person, Place, Situation Attachments: Anguiano Catheter Transfers Therapy Code Descriptions/Definitions Functional [place] Measure: 0=Not Assessed/NA 4=Minimal Assistance 1=Total Assistance 5=Supervision or Setup 2=Maximal Assistance 6=Modified [place] 3=Moderate Assistance 7=Complete [place] Therapy Quality Codes: 6 Independent with activity with or without an assistive device 5 Patient requires set up or clean up by helper. Patient completes activity by themselves 4 Supervision or touching assist (CGA). [place] provide cues , steadying assist 3 The helper provides less than half the effort to complete the activity 2 The helper provides more than half the effort to complete the activity 1 Dependent. The helper does all the effort to complete an activity 7 Patient refused to complete or attempt activity 9 The patient did not perform the activity before the current illness or injury 88 Not attempted due to Medical conditions or safety concerns Transfers (B, C, W/C) (FIM): 1 Scootin Rollin Supine to/from Sit: 4 Sit to/from Stand: 1 Bed to/from Chair: 1 standing machine used for standing and transfer to shower chair and then back to wheelchair. Patient showered with OT and assist from PT for positioning and balance and during dressing. Patient taken to therapy gym and stood in the parallel bars x3 with max assist, he can bear very little weight on his legs. Weight Bearing Right Lower Extremity: Right Weight Bearing/Tolerated Left Lower Extremity: Left Full Weight Bearing Treatments bed mobility, transfers, shower, dressing, standing Assessment Current Status: Poor Progress very weak legs. PT performed bed mobility and transfers and standing and assisted during shower and dressing, OT performed dressing, bathing, and assisted during standing and transfer with UE positioning. PT Short Term Goals Short Term Goals Time Frame: Feb 07, 2019 Transfers (B,C,W/C) (FIM): 4 Gait (FIM): 2 Distance (FIM): 1=up to 49 ft Gait Assistive Device: FWW Wheelchair (FIM): 6 Wheelchair distance (FIM): 3=150 ft PT Early Morning Babysitter Goals Early Morning Babysitter Goals PT Early Morning Babysitter Goals Time Frame: Feb 21, 2019 Transfers (B,C,W/C) (FIM): 5 Sit to Lying (QC): 6 Lying-Sitting on Side/Bed(QC): 6 Sit to Stand (QC): 6 Rollin Roll Left to Right (QC): 6 Chair/Tqe-ox-Vhwnh Xfer(QC): 5 Car Transfer (QC): 4 Does the Patient Walk: No and Walking Goal IS indicated Gait (FIM): 2 Gait distance (FIM): 1=up to 49 ft Distance: 20 ft Walk 10 feet (QC): 6 Walk 10ft-Uneven Surface(QC): 4 Walk 50ft with 2 Turns (QC): 88 Walk 150 ft (QC): 88 Gait Assistive Device: FWW Does the Pt use WC or Scooter?: Yes Wheelchair (FIM): 6 Wheelchair distance (FIM): 3=150 ft Wheel 50 feet with 2 turns (QC: 6 Stairs (FIM): 0 1 Step (curb) (QC): 9 4 Steps (QC): 9 12 Steps (QC): 9 Picking up an Object (QC): 88 PT Plan Problem List Problem List: Activity Tolerance, Functional Strength, Safety, Balance, Gait, Transfer, Bed Mobility, ROM Treatment/Plan Treatment Plan: Continue Plan of Care Treatment Plan: Bed Mobility, Education, Functional Activity Glenn, Functional Strength, Group Therapy, Gait, Safety, Therapeutic Exercise, Transfers Treatment Duration: Feb 21, 2019 Frequency: At least 5 of 7 days/Wk (IRF) Estimated Hrs Per Day: 1.5 hours per day Patient and/or Family Agrees t: Yes Safety Risks/Education Patient Education: Transfer Techniques, Correct Positioning, Safety Issues Teaching Recipient: Patient Teaching Methods: Demonstration, Discussion Response to Teaching: Reinforcement Needed Time/GCodes Time In: 1000 Time Out: 1100 Total Billed Treatment Time: 60 Total Billed Treatment 1 visit FA Sujey' MICHELLE FUNES PT Jan 25, 2019 11:55
[2019-01-25] MEDS: NS IV 1000 ML 1,000 ML IV SCH (11:59)
[2019-01-25 12:05] VITALS: BP 111/73
--- NOTE | 2019-01-25 14:41 | Physical Therapy Daily Note ---
PT Daily Note-Current Subjective Agreeable to PT. Reports he feels a little stiff. Transfers Therapy Code Descriptions/Definitions Functional [place] Measure: 0=Not Assessed/NA 4=Minimal Assistance 1=Total Assistance 5=Supervision or Setup 2=Maximal Assistance 6=Modified [place] 3=Moderate Assistance 7=Complete [place] Therapy Quality Codes: 6 Independent with activity with or without an assistive device 5 Patient requires set up or clean up by helper. Patient completes activity by themselves 4 Supervision or touching assist (CGA). [place] provide cues , steadying ass ist 3 The helper provides less than half the effort to complete the activity 2 The helper provides more than half the effort to complete the activity 1 Dependent. The helper does all the effort to complete an activity 7 Patient refused to complete or attempt activity 9 The patient did not perform the activity before the current illness or injury 88 Not attempted due to Medical conditions or safety concerns Weight Bearing Right Lower Extremity: Right Weight Bearing/Tolerated Left Lower Extremity: Left Full Weight Bearing Treatments Seated B LE ther ex x 10 for AP, LAQ, hip flexion and hamstring curl--assist on the right for all exercises. ; passive knee flexion stretch right LE 3 x 30 sec each to promote normalized knee flexion. Sit to director of intelligence /'/ bars x 3 reps with max to dependent assist to stand with pt using her UE and legs; pt unable to fully extend his hips and knees but able to hold a stand for approx 20 sec each time. Pt in room post treatment with needs met. Assessment Pt working on being able to stand upright in // bars; knee flexion with AAROM right to 75 degrees. PT Short Term Goals Short Term Goals Time Frame: Feb 07, 2019 Transfers (B,C,W/C) (FIM): 4 Gait (FIM): 2 Distance (FIM): 1=up to 49 ft Gait Assistive Device: FWW Wheelchair (FIM): 6 Wheelchair distance (FIM): 3=150 ft PT Long-Term Goals Care Analyst Goals PT Care Analyst Goals Time Frame: Feb 21, 2019 Transfers (B,C,W/C) (FIM): 5 Sit to Lying (QC): 6 Lying-Sitting on Side/Bed(QC): 6 Sit to Stand (QC): 6 Rollin Roll Left to Right (QC): 6 Chair/Uzn-em-Rfijo Xfer(QC): 5 Car Transfer (QC): 4 Does the Patient Walk: No and Walking Goal IS indicated Gait (FIM): 2 Gait distance (FIM): 1=up to 49 ft Distance: 20 ft Walk 10 feet (QC): 6 Walk 10ft-Uneven Surface(QC): 4 Walk 50ft with 2 Turns (QC): 88 Walk 150 ft (QC): 88 Gait Assistive Device: FWW Does the Pt use WC or Scooter?: Yes Wheelchair (FIM): 6 Wheelchair distance (FIM): 3=150 ft Wheel 50 feet with 2 turns (QC: 6 Stairs (FIM): 0 1 Step (curb) (QC): 9 4 Steps (QC): 9 12 Steps (QC): 9 Picking up an Object (QC): 88 PT Plan Problem List Problem List: Activity Tolerance, Functional Strength, Safety, Balance, Gait, Transfer, Bed Mobility Treatment/Plan Treatment Plan: Continue Plan of Care Treatment Plan: Bed Mobility, Education, Functional Activity Glenn, Functional Strength, Group Therapy, Gait, Safety, Therapeutic Exercise, Transfers Treatment Duration: Feb 21, 2019 Frequency: At least 5 of 7 days/Wk (IRF) Estimated Hrs Per Day: 1.5 hours per day Patient and/or Family Agrees t: Yes Safety Risks/Education Patient Education: Transfer Techniques, Safety Issues Teaching Recipient: Patient Teaching Methods: Demonstration, Discussion Response to Teaching: Reinforcement Needed Time/GCodes Time In: 1245 Time Out: 1315 Total Billed Treatment Time: 30 Total Billed Treatment visit EX 10 FA 20 CIRO JIMENEZ PT Jan 25, 2019 14:41
--- NOTE | 2019-01-25 15:10 | Occupational Ther Daily Note ---
OT Current Status-Daily Note Subjective No pain reported. Appearance Agrees to treatment with therapy. Mental Status/Objective Patient Orientation: Person, Place Therapy Code Descriptions/Definitions Functional [place] Measure: 0=Not Assessed/NA 4=Minimal Assistance 1=Total Assistance 5=Supervision or Setup 2=Maximal Assistance 6=Modified [place] 3=Moderate Assistance 7=Complete [place] Attachments: IV ADL-Treatment Therapy Code Descriptions/Definitions Functional [place] Measure: 0=Not Assessed/NA 4=Minimal Assistance 1=Total Assistance 5=Supervision or Setup 2=Maximal Assistance 6=Modified [place] 3=Moderate Assistance 7=Complete [place] Therapy Quality Codes: 6 Independent with activity with or without an assistive device 5 Patient requires set up or clean up by helper. Patient completes activity by themselves 4 Supervision or touching assist (CGA). [place] provide cues , steadying assist 3 The helper provides less than half the effort to complete the activity 2 The helper provides more than half the effort to complete the activity 1 Dependent. The helper does all the effort to complete an activity 7 Patient refused to complete or attempt activity 9 The patient did not perform the activity before the current illness or injury 88 Not attempted due to Medical conditions or safety concerns Bathing (FIM): 4 Shower/Bathe Self (QC): 4 Upper Body (FIM): 5 Upper Body Dressing (QC): 4 Lower Body Dressing (FIM): 2 Lower Body Dressing (QC): 2 On/Off Footwear (QC): 2 Transfers (B, C, W/C) (FIM): 1 Shower Transfer(FIM): 1 Other Treatment Pt. in bed. Agrees to treatment. Pt. transferred supine-sit with mod assist. OT talked with pt. regarding current OT goals and need for independence. Pt. allows OT to place elastic laces in shoes for easier donning. PT came in at this time to assist with co-treatment, due to need of two skilled therapists. PT positioned pt's feet on sit-stand lift and assisted with stand into shower. Once in shower, pt. educated on safe way to cleanse all areas, using LH sponge for LE. Pt. verbalizes understanding, and is able to do this. After shower, OT assisted with LE dressing as pt. unable to do so on shower chair. Transferred again with sit-stand lift from shower chair to wheelchair, with PT education for leg and hand placement. Pt. taken to parallel bars. Stood x 3 with max x 2 each time, and cues to position self in bars for upright stance. PT facilitated knee blockage and foot placement while OT facilitated glute support from behind and hand placement on bars. Pt. has difficulty tucking bottom in and bringing shoulders back. Pt. discouraged by this and was encouraged that this will take time. Pt. up in chair for upright posture and lung expansion after session. Pt. educated that he would be in chair for 1 1/2 hours until PT came back to room. Pt. verbalized understanding. All needs met. Education OT Patient Education: Correct positioning, Modified ADL techniques, Progress toward Goal/Update tx plan, Purpose of tx/functional activities, Reviewed precautions, Rehab process, Transfer techniques Teaching Recipient: Patient Teaching Methods: Demonstration, Discussion Response to Teaching: Verbalize Understanding, Return Demonstration OT Short Term Goals Short Term Goals Time Frame: Jan 31, 2019 Eating(FIM): 5 Grooming(FIM): 5 Bathing(FIM): 4 Upper Body Dressing(FIM): 4 Lower Body Dressing(FIM): 4 Toileting(FIM): 3 Transfers (B,C,W/C) (FIM): 4 Toilet/Commode Transfer(FIM): 4 Shower Transfer(FIM): 4 1=Demonstrate adherence to instructed precautions during ADL tasks. 2=Patient will verbalize/demonstrate understanding of assistive devices/modifications for ADL. 3=Patient will improve strength/tolerance for activity to enable patient to perform ADL's. OT Detention Goals [place] Goals Time Frame: Feb 07, 2019 Eating (FIM): 6 Eating (QC): 6 Groomin Oral Hygiene (QC): 6 Bathing(FIM): 4 Shower/Bathe Self (QC): 4 Upper Body Dressing(FIM): 5 Upper Body Dressing (QC): 4 Lower Body Dressing(FIM): 5 Lower Body Dressing (QC): 4 On/Off Footwear (QC): 4 Toileting(FIM): 5 Toileting Hygiene (QC): 4 Transfers (B,C,W/C) (FIM): 5 Toilet/Commode Transfer(FIM): 5 Toilet/Commode Transfer (QC): 4 Shower Transfer(FIM): 4 Additional Goals: 1-Demonstrate ADL Tasks, 2-Verbalize Understanding, 3- ImproveStrength/Glenn 1=Demonstrate adherence to instructed precautions during ADL tasks. 2=Patient will verbalize/demonstrate understanding of assistive devices/modifications for ADL. 3=Patient will improve strength/tolerance for activity to enable patient to perform ADL's. OT Education/Plan Problem List/Assessment Assessment: Decreased Activ Tolerance, Decreased UE Strength, Dependent Transfers, Impaired Bed Mobility, Impaired Funct Balance, Impaired I ADL's, Impaired Self-Care Skills, Restricted Funct UE ROM Discharge Recommendations Plan/Recommendations: Continue POC Therapy D/C Recommendations: Home w/ Family Support Treatment Plan/Plan of Care Treatment,Training & Education: Yes Patient would benefit from OT for education, treatment and training to promote independence in ADL's, mobility, safety and/or upper extremity function for ADL's. Plan of Care: ADL Retraining, Functional Mobility, Group Exercise/Act as Ind, UE Funct Exercise/Act Treatment Duration: Feb 07, 2019 Frequency: At least 5 of 7 days/Wk (IRF) Estimated Hrs Per Day: 1.5 hours per day Agreement: Yes Rehab Potential: Good Time/GCodes Start Time: 09:40 Stop Time: 11:10 Total Time Billed (hr/min): 90 Billed Treatment Time 1, ADL x 60minutes, FA x 30minutes CIERRA MILLIGAN OT Jan 25, 2019 15:10
[2019-01-25 16:00] VITALS: BP 98/52
--- NOTE | 2019-01-25 16:58 | NUR ---
STORAGE ARCHITECT met with patient to complete initial assessment. Patient was alert and oriented and agreeable to assessment. Patient admitted to ARU from internally, following an elective right total knee replacement by Dr. Byrnes. Prior to hospitalization patient resided with spouse, Heron in a multilevel home in [place], [place]. Patient resides in the downstairs part of the home while spouse resides upstairs. Patient reports being wheelchair bound for approximately 3 years and has all necessary equipment at home to function independently. Patient possesses a lift chair, stair lift, Frank lift, power chair in a handicap accessible bathroom. Although patient has been wheelchair bound for the last 3 years, patient does state goal of ambulating distances with a walker. Primary contact identified as spouse, Heron at [phone] and secondary contact as daughter, Diandra at [phone]. PCP identified as Dr. Mirza Bach and research program intern as Dr. Sellers. Insurance verified as Medicare and [employer] with express scripts prescription coverage. Preferred pharmacy listed as [facility]. STORAGE ARCHITECT reviewed typical ARU length of stay and weekly team conferences. Patient expressed no concerns or questions at this time. STORAGE ARCHITECT will continue to follow.
[2019-01-25] MEDS: PANTOPRAZOLE 40 MG (PROTONIX) TAB PO SCH (17:22)
[2019-01-25] MEDS: ENOXAPARIN 40 MG/0.4 ML (LOVENOX) SYR SC SCH (17:22)
[2019-01-25] MEDS: TAMSULOSIN 0.4 MG (FLOMAX) CAP PO SCH (17:22)
[2019-01-26 05:09] VITALS: BP 104/67
[2019-01-26] MEDS: HYDROcodone/APAP 10 MG/325 MG (LORTAB) TAB PO PRN ×2 (05:45→20:54)
[2019-01-26] MEDS: LEVOTHYROXINE 50 MCG (LEVOTHROID) TAB PO SCH (05:45)
[2019-01-26] MEDS: PREGABALIN 150 MG (LYRICA) CAPSULE PO SCH ×2 (05:46→20:53)
[2019-01-26] MEDS: LEVOTHYROXINE 100 MCG (LEVOTHROID) TAB PO SCH (05:46)
[2019-01-26] MEDS: TROSPIUM 20 MG (SANCTURA) TAB PO SCH ×2 (05:46→16:37)
[2019-01-26 06:21] LABS: HEMOGLOBIN 10.6 G/DL (13.3-17.7); MEAN PLATELET VOLUME 10.7 FL (7.4-10.4); RED CELL DISTRIBUTION WIDTH 16.4 % (10.0-14.5); WHITE BLOOD COUNT 9.1 10^3/uL (4.3-11.0)
[2019-01-26 06:32] LABS: BUN/CREATININE RATIO 22; CALCIUM 9.6 MG/DL (8.5-10.1); CARBON DIOXIDE 23 MMOL/L (21-32); CHLORIDE 102 MMOL/L (98-107); CREATININE SERUM 0.81 MG/DL (0.60-1.30); GFR ESTIMATED > 60; GLUCOSE 123 MG/DL (70-105); POTASSIUM 4.4 MMOL/L (3.6-5.0); SODIUM 138 MMOL/L (135-145)
[2019-01-26 08:33] VITALS: BP 111/70
[2019-01-26] MEDS: DOCUSATE SODIUM 100 MG (COLACE) CAP PO PRN (08:40)
[2019-01-26] MEDS: POLYETHYLENE GLYCOL 17 GM (MIRALAX) PACK PO SCH ×2 (08:40→20:54)
[2019-01-26] MEDS: ASPIRIN 81 MG CHEW (CHILDREN'S ASA) PO SCH (08:40)
[2019-01-26] MEDS: SENNA W/DOCUSATE (SENOKOT S) TABLET PO SCH ×2 (08:40→20:54)
[2019-01-26] MEDS: NS IV 1000 ML 1,000 ML IV SCH (08:41)
--- NOTE | 2019-01-26 08:46 | Progress Note - Hospitalist ---
YAEL PELLETIER [facility] 01/26/19 0846: Progress Note Mr Km had some increased pain overnight He is frustrated with the process - his expectations were to be walking pain free upon d/c Spent some time talking with him through the process and re-setting his expectations Still no BM, keep on bowel regimen AYLIN JUÁREZ DO 01/26/19 2132: Supervisory-Addendum Brief Verification & Attestation Participated in pt care: history, MDM, physical Personally performed: exam, history, MDM, supervision of care Care discussed with: Medical Student Procedures: n/a Results interpretation: Verified all documentation Verification and Attestation of Medical Student E/M Service A medical student performed and documented this service in my presence. I reviewed and verified all information documented by the medical student and made modifications to such information, when appropriate. I personally performed the physical exam and medical decision making. Aylin Juárez, Jan 26, 2019,21:32 YAEL PELLETIER [facility] Jan 26, 2019 08:46 AYLIN JUÁREZ DO Jan 26, 2019 21:32
[2019-01-26] MEDS ORDERED: LOSARTAN 50 MG (COZAAR) TAB PO SCH (09:00)
[2019-01-26] MEDS: BISACODYL 10 MG SUPP (DULCOLAX) PR SCH ×2 (09:15→21:00)
--- NOTE | 2019-01-26 09:59 | Progress Note - Cardiology ---
Cardiology SOAP Progress Note Subjective: No cp or palp or syncope or shortness of breath at rest Gen malaise and weakness present Objective: I&O/Vital Signs 01/26/19 01/26/19 05:09 08:33 Temp 98.4 99.1 Pulse 98 97 Resp 16 20 B/P (MAP) 104/67 (79) 111/70 (84) Pulse Ox 92 98 O2 Delivery Room Air Room Air 01/26/19 00:00 Intake Total 1000 ml Output Total 1650 ml Balance -650 ml Weight (Pounds): 283 Weight (Ounces): 3.0 Weight (Calculated Kilograms): 128.531585 Constitutional: AAO x 3, well-developed, well-nourished Respiratory: lungs clear to percussion, lungs clear to auscultation Cardiovascular: regular rate-rhythm, S1 and S2, systolic murmur Gastrointestional: audible bowel sounds Extremities: No clubbing, No cyanosis, No significant edema Neurologic/Psychiatric: oriented x 3, grossly intact Skin: No rash on exposed areas, No ulcerations on exposed areas Results/Procedures: Labs Laboratory Tests 01/26/19 05:50: White Blood Count 9.1, Red Blood Count 3.77L, Hemoglobin 10.6L, Hematocrit 33L, Mean Corpuscular Volume 88, Mean Corpuscular Hemoglobin 28, Mean Corpuscular Hemoglobin Concent 32, Red Cell Distribution Width 16.4H, Platelet Count 253, Mean Platelet Volume 10.7H, Sodium Level 138, Potassium Level 4.4, Chloride Level 102, Carbon Dioxide Level 23, Anion Gap 13, Blood Urea Nitrogen 18, Creatinine 0.81, Estimat Glomerular Filtration Rate > 60, BUN/Creatinine Ratio 22, Glucose Level 123H, Calcium Level 9.6 A/P: Assessment: Relative hypotension, now resolved S/p right TKR on 01-23-[address] Byrnes Severe aortic stenosis. Echocardiogram of 01-19-19 showed concentric hypertrophy. LVEF 70-75%. LA mod dilated. Severe Ao stenosis, mean gradient 53 mmHg, valve area 1.1 sq sm. RVSP 20 mmHg. Mild MR. H/o CAD, s/p two cor stents in 1995 following [place], details unknown MPI of January 19, 2019 showed no evidence of any significant myocardial ischemia or infarction. LVEF 91% Quit smoking in 1995 DJD H/o hyperlipidemia - statin tx - followed by his PCP LILIAN, non-compliant with CPAP Mild COPD on PFTs of Mar 2019 Plan: * D/c iv fluids now that bp is in normal range * Hold furosemid * D/c losartan * I spoke with him and his daughter and answered CV-related questions * Monitor labs DONN THEODORE MD FACP FAC CCDS Jan 26, 2019 09:59
--- NOTE | 2019-01-26 10:08 | PM&R Progress Note ---
Subjective HPI/CC On Admission Date Seen by Provider: Jan 26, 2019 Time Seen by Provider: 09:45 CC: Debility following right total knee replacement uncomplicated by Dr. Byrnes POD # 1 HPI: This is a 78yoWM who is s/p uncomplicated right total knee replacement by Dr. Byrnes who is currently in need of intensive therapy in order to return home of which the last several years he went from using a can to a walker and then wheelchair bound for the past three years due to right knee pain and unable to ambulate. He does have all the assistive devices and wheelchair friendly house but he would like to improve him ambulation, improve the safety of his transfers and lessen the burden of care for his of 58 years. His PCP is Dr. Bach and Dr. Giraldo sees him after recently becoming established last week for a heart attack he had in 1995 and a cardiac murmur. (EST was normal). He is currently doing well and remains with a Anguiano catheter due to the inability to get out of bed so he would like to keep that in for a little while longer in order to prevent incontinence and other issues. He has not had a BM but is eating and drinking well. He is supposed to wear CPAP but is noncompliant and denies wearing oxygen at home. At this current time pt pain is well controlled at a 3 currently. He has a CPM machine on board and I did update Dr. Byrnes on the fact that we would admit him to inpatient rehab to return to prior level of functioning or a little better in order to regain independence in ADLs and ambulation at home. 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 The pt has no new complaints at this time. Subjective/Events-last exam Holding Lasix due to hypotension Cozaar will be discontinued We will discontinue catheter much to his frustration but we need to remove it to prevent any type of UTI due to Anguiano catheter Bowels need to move so we will initiate suppository soapsuds enema anything else that he may need to help him resolve that issue Check meds and labs Conferred with RN Reviewed therapy notes Appreciate cardiology consultation Review of Systems General: Fatigue Gastrointestinal: Constipation Genitourinary: Incontinence Musculoskeletal: leg pain Objective Exam Vital Signs Vital Signs Date Time Temp Pulse Resp B/P (MAP) Pulse Ox O2 Delivery O2 Flow Rate FiO2 01/26/19 18:41 97.7 01/26/19 15:51 96 16 104/55 (71) 94 Room Air Capillary Refill : General Appearance: No Apparent Distress, WD/WN, Chronically ill HEENT: PERRL/EOMI, Normal ENT Inspection, Pharynx Normal Neck: Full Range of Motion, Normal Inspection, Non Tender, Supple Respiratory: Chest Non Tender, Lungs Clear, No Accessory Muscle Use, No R espiratory Distress, Decreased Breath Sounds Cardiovascular: Regular Rate, Rhythm, Systolic Murmur, Other (Systolic ejection murmor, 3/6 with radiation to carotids) Gastrointestinal: Normal Bowel Sounds, No Organomegaly, No Pulsatile Mass, Non Tender, Soft Rectal: Deferred Back: Normal Inspection, No CVA Tenderness Extremity: Normal Capillary Refill, Normal Inspection, Normal Range of Motion (except right leg), Non Tender, No Calf Tenderness, Pedal Edema Neurologic/Psychiatric: Alert, Oriented x3, No Motor/Sensory Deficits, Normal Mood/Affect, 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 FIM Transfers Therapy Code Descriptions/Definitions Functional [place] Measure: 0=Not Assessed/NA 4=Minimal Assistance 1=Total Assistance 5=Supervision or Setup 2=Maximal Assistance 6=Modified [place] 3=Moderate Assistance 7=Complete [place] Therapy Quality Codes: 6 Independent with activity with or without an assistive device 5 Patient requires set up or clean up by helper. Patient completes activity by themselves 4 Supervision or touching assist (CGA). [place] provide cues , steadying assist 3 The helper provides less than half the effort to complete the activity 2 The helper provides more than half the effort to complete the activity 1 Dependent. The helper does all the effort to complete an activity 7 Patient refused to complete or attempt activity 9 The patient did not perform the activity before the current illness or injury 88 Not attempted due to Medical conditions or safety concerns Transfers (B, C, W/C) (FIM): 1 Scootin Rollin Roll Left to Right (QC): 3 Supine to/from Sit: 4 Sit to/from Stand: 1 Sit to Lying (QC): 2 (max assist to get legs into bed and for trunk control) Sit to Stand (QC): 1 Chair/Ffh-md-Slfej Xfer(QC): 1 Bed to/from Chair: 1 Car Transfer (QC): 88 (unsafe to attempt with sit to stand lift) Gait Training Does the Patient Walk?: No and Walking Goal IS indicated Gait (FIM): 0 (pt unable to come to a full stand to attempt ambulation; [facility] stand lift to stand up) Distance (FIM): 0=does not occure Walk 10 feet (QC): 88 Walk 50 ft with 2 Turns(QC): 88 Walk 150 ft (QC): 9 Walking 10ft/uneven surface-QC: 88 Gait Assistive Device: FWW Wheelchair Training Does the Pt Use a Wheelchair?: Yes Wheelchair (FIM): 2 Wheelchair Distance: 1=up to 49 ft Wheelchair Level of Assist: 4 Wheel 50 ft with 2 turns (QC): 3 Wheel 150 ft (QC): 2 Type of Wheelchair: Manual Stair Training Stairs (FIM): 0 1 Step (curb) (QC): 88 4 Steps (QC): 88 12 Steps (QC): 88 Balance Picking up an Object (QC): 88 Mental Status/Objective Comprehension: 7 Expression: 7 Social Interaction: 7 Problem Solvin Memory: 7 ADL-Treatment Bathin Shower/Bathe Self (QC): 4 Upper Extremity Dressin Upper Body Dressing (QC): 4 Lower Extremity Dressin Lower Body Dressing (QC): 2 On/Off Footwear (QC): 2 Shower: 1 Assessment/Plan Assessment and Plan Assess & Plan/Chief Complaint A/P: IRF protocols BM regimen to intensify to prevent ileus Pain control Lovenox Consult Dr Giraldo is appreciated Monitor hypotension Home meds DC catheter OOB on commode (1) Status post total right knee replacement Status: Acute (2) Primary osteoarthritis of right knee Status: Chronic (3) Essential hypertension Status: Chronic (4) Constipation Status: Chronic Qualifiers: Constipation type: slow transit constipation Qualified Codes: K59.01 - Slow transit constipation (5) CAD (coronary artery disease) Status: Chronic Qualifiers: Coronary Disease-Associated Artery/Lesion type: [place] artery [place] vs. transplanted heart: jamul heart Associated angina: without angina Qualified Codes: I25.10 - Atherosclerotic heart disease of [place] coronary artery without angina pectoris (6) Hypothyroidism Status: Chronic Qualifiers: Hypothyroidism type: acquired Qualified Codes: E03.9 - Hypothyroidism, unspecified (7) Type II diabetes mellitus Status: Chronic Qualifiers: Diabetes mellitus keno terminal operator insulin use: without keno terminal operator use Diabetes mellitus complication status: with circulatory complication Diabetes mellitus complication detail: with other circulatory complications Qualified Codes: E11.59 - Type 2 diabetes mellitus with other circulatory complications (8) LILIAN (obstructive sleep apnea) Status: Chronic (9) Systolic murmur Status: Chronic (10) GERD without esophagitis Status: Chronic (11) Postoperative anemia Status: Acute (12) BPH (benign prostatic hyperplasia) Status: Chronic Qualifiers: Lower urinary tract symptom presence: unspecified whether lower urinary tract symptoms present Qualified Codes: N40.0 - Benign prostatic hyperplasia without lower urinary tract symptoms (13) Anguiano catheter in place Status: Acute (14) History of coronary artery stent placement Status: Chronic DM BERUMEN DO Jan 26, 2019 10:07
--- NOTE | 2019-01-26 10:59 | Physical Therapy Daily Note ---
PT Daily Note-Current Subjective Patient sitting EOB pre tx, agrees to PT, has 3/10 pain in right knee. Will be co-treating with OT due to poor patient mobility, strength, endurance, ROM, the inability to stand, the need to coordinate UE and LE during activity. Appearance Patient in wheelchair at bedside post tx with nurse call, phone, tray, all needs met, daughter in room, polar care on. Mental Status Patient Orientation: Person, Place, Situation Attachments: Polar Pack Transfers Therapy Code Descriptions/Definitions Functional [place] Measure: 0=Not Assessed/NA 4=Minimal Assistance 1=Total Assistance 5=Supervision or Setup 2=Maximal Assistance 6=Modified [place] 3=Moderate Assistance 7=Complete [place] Therapy Quality Codes: 6 Independent with activity with or without an assistive device 5 Patient requires set up or clean up by helper. Patient completes activity by themselves 4 Supervision or touching assist (CGA). [place] provide cues , steadying assist 3 The helper provides less than half the effort to complete the activity 2 The helper provides more than half the effort to complete the activity 1 Dependent. The helper does all the effort to complete an activity 7 Patient refused to complete or attempt activity 9 The patient did not perform the activity before the current illness or injury 88 Not attempted due to Medical conditions or safety concerns Transfers (B, C, W/C) (FIM): 1 Sit to/from Stand: 1 Bed to/from Chair: 1 Initial transfer performed with a standing machine to go from bed to wheelchair. He also performed a sliding board transfer twice with min assist, needs assist placing board and keeping it from sliding while he slides across it. Weight Bearing Right Lower Extremity: Right Weight Bearing/Tolerated Left Lower Extremity: Left Full Weight Bearing Exercises Patient stood in the parallel bars x3 for about 1 min each time and needed max assist and knee blocking. Patient then performed seated RLE exercises (AP, HS, LAQ, QS with leg elevated on therapists leg) while also performing UE exercises, he also performed a kicking activity with right leg and sit to stand x5 from an elevated surface with mod assist. Treatments LE exercise, transfers, standing Assessment Current Status: Poor Progress slight improvement, was able to perform a sliding board transfer with min assist PT Short Term Goals Short Term Goals Time Frame: Feb 07, 2019 Transfers (B,C,W/C) (FIM): 4 Gait (FIM): 2 Distance (FIM): 1=up to 49 ft Gait Assistive Device: FWW Wheelchair (FIM): 6 Wheelchair distance (FIM): 3=150 ft PT Fpc Goals Hospice Clinical Marketer Goals PT Hospice Clinical Marketer Goals Time Frame: Feb 21, 2019 Transfers (B,C,W/C) (FIM): 5 Sit to Lying (QC): 6 Lying-Sitting on Side/Bed(QC): 6 Sit to Stand (QC): 6 Rollin Roll Left to Right (QC): 6 Chair/Owl-ys-Sagxu Xfer(QC): 5 Car Transfer (QC): 4 Does the Patient Walk: No and Walking Goal IS indicated Gait (FIM): 2 Gait distance (FIM): 1=up to 49 ft Distance: 20 ft Walk 10 feet (QC): 6 Walk 10ft-Uneven Surface(QC): 4 Walk 50ft with 2 Turns (QC): 88 Walk 150 ft (QC): 88 Gait Assistive Device: FWW Does the Pt use WC or Scooter?: Yes Wheelchair (FIM): 6 Wheelchair distance (FIM): 3=150 ft Wheel 50 feet with 2 turns (QC: 6 Stairs (FIM): 0 1 Step (curb) (QC): 9 4 Steps (QC): 9 12 Steps (QC): 9 Picking up an Object (QC): 88 PT Plan Problem List Problem List: Activity Tolerance, Functional Strength, Safety, Balance, Gait, Transfer, Bed Mobility, ROM Treatment/Plan Treatment Plan: Continue Plan of Care Treatment Plan: Bed Mobility, Education, Functional Activity Glenn, Functional Strength, Group Therapy, Gait, Safety, Therapeutic Exercise, Transfers Treatment Duration: Feb 21, 2019 Frequency: At least 5 of 7 days/Wk (IRF) Estimated Hrs Per Day: 1.5 hours per day Patient and/or Family Agrees t: Yes Safety Risks/Education Patient Education: Transfer Techniques, Correct Positioning, Safety Issues Teaching Recipient: Patient Teaching Methods: Demonstration, Discussion Response to Teaching: Reinforcement Needed Time/GCodes Time In: 1000 Time Out: 1100 Total Billed Treatment Time: 60 Total Billed Treatment 1 visit EX 15' FA 45' Co-treated with OT for 60 min. PT performed transfers, standing, LE exercise, assist with kicking activity, OT worked on UE exercise, kicking activity, assist with transfers and standing. MICHELLE FUNES PT Jan 26, 2019 10:59
--- NOTE | 2019-01-26 11:46 | Occupational Ther Daily Note ---
OT Current Status-Daily Note Subjective Pt sitting EOB, agrees to therapy. Pt reports 1/10 pain in right knee. Mental Status/Objective Therapy Code Descriptions/Definitions Functional [place] Measure: 0=Not Assessed/NA 4=Minimal Assistance 1=Total Assistance 5=Supervision or Setup 2=Maximal Assistance 6=Modified [place] 3=Moderate Assistance 7=Complete [place] Attachments: Anguiano Catheter ADL-Treatment Individual treatment 30 minutes. Pt sitting EOB, requests to complete grooming. Pt brushed teeth with set up. Pt doffed shirt without assist. Washed upper body with wipes with set up. Donned clean shirt with set up. Decline to change shorts at this time. Pt states he does not wear socks. Attempted to don shoes with long shoe horn. Pt unable to complete. Required max assist to don shoes. Co-treat with PT for 60minutes secondary to poor patient mobility, strength, activity tolerance and poor ability to stand. Transfer EOB to w/c with sit to stand lift. To therapy gym via w/c. Pt stood in parallel bars x3 trials with assist x2. Pt stood for ~1min at a time. Fatigues with activity and requires seated rest break. Skilled cues for posture and UE placement. Pt performed UE to increase strength for ADLs and transfers. Pt performed shoulder flexion, forward press, biceps curls, and wrist 15 reps with 2# weights. Rest breaks between exercises and alternating exercises with LE. Pt performed slide board transfers w/c <-> edge of mat with minimal assistance and cues for technique. Pt sat edge of mat with supervision for balance and kicked ball with right LE. Pt then performed sit to stand x5 trials from elevated mat surface to increase strength for transfers and functional mobility. Pt returned to room, sitting in w/c with needs met after session. Therapy Code Descriptions/Definitions Functional [place] Measure: 0=Not Assessed/NA 4=Minimal Assistance 1=Total Assistance 5=Supervision or Setup 2=Maximal Assistance 6=Modified [place] 3=Moderate Assistance 7=Complete [place] Therapy Quality Codes: 6 Independent with activity with or without an assistive device 5 Patient requires set up or clean up by helper. Patient completes activity by themselves 4 Supervision or touching assist (CGA). [place] provide cues , steadying assist 3 The helper provides less than half the effort to complete the activity 2 The helper provides more than half the effort to complete the activity 1 Dependent. The helper does all the effort to complete an activity 7 Patient refused to complete or attempt activity 9 The patient did not perform the activity before the current illness or injury 88 Not attempted due to Medical conditions or safety concerns Grooming (FIM): 5 Oral Hygiene (QC): 5 Upper Body (FIM): 5 Upper Body Dressing (QC): 5 On/Off Footwear (QC): 2 OT Short Term Goals Short Term Goals Time Frame: Jan 31, 2019 Eating(FIM): 5 Grooming(FIM): 5 Bathing(FIM): 4 Upper Body Dressing(FIM): 4 Lower Body Dressing(FIM): 4 Toileting(FIM): 3 Transfers (B,C,W/C) (FIM): 4 Toilet/Commode Transfer(FIM): 4 Shower Transfer(FIM): 4 1=Demonstrate adherence to instructed precautions during ADL tasks. 2=Patient will verbalize/demonstrate understanding of assistive devices/modifications for ADL. 3=Patient will improve strength/tolerance for activity to enable patient to perform ADL's. OT Office Technology Instructor Goals Office Technology Instructor Goals Time Frame: Feb 07, 2019 Eating (FIM): 6 Eating (QC): 6 Groomin Oral Hygiene (QC): 6 Bathing(FIM): 4 Shower/Bathe Self (QC): 4 Upper Body Dressing(FIM): 5 Upper Body Dressing (QC): 4 Lower Body Dressing(FIM): 5 Lower Body Dressing (QC): 4 On/Off Footwear (QC): 4 Toileting(FIM): 5 Toileting Hygiene (QC): 4 Transfers (B,C,W/C) (FIM): 5 Toilet/Commode Transfer(FIM): 5 Toilet/Commode Transfer (QC): 4 Shower Transfer(FIM): 4 Additional Goals: 1-Demonstrate ADL Tasks, 2-Verbalize Understanding, 3- ImproveStrength/[place] 1=Demonstrate adherence to instructed precautions during ADL tasks. 2=Patient will verbalize/demonstrate understanding of assistive devices/modifications for ADL. 3=Patient will improve strength/tolerance for activity to enable patient to perform ADL's. OT Education/Plan Discharge Recommendations Plan/Recommendations: Continue POC Treatment Plan/Plan of Care Patient would benefit from OT for education, treatment and training to promote independence in ADL's, mobility, safety and/or upper extremity function for ADL's. Plan of Care: ADL Retraining, Functional Mobility, Group Exercise/Act as Ind, UE Funct Exercise/Act Treatment Duration: Feb 07, 2019 Frequency: At least 5 of 7 days/Wk (IRF) Estimated Hrs Per Day: 1.5 hours per day Agreement: Yes Rehab Potential: Good Time/GCodes Start Time: 09:30 Stop Time: 11:00 Total Time Billed (hr/min): 90 Billed Treatment Time 1 visit, ADLx2(30minutes), FAx3(45minutes), EX(15minutes) Co-treat with PT 60minutes ROBERT BULLOCK OT Jan 26, 2019 11:46
--- NOTE | 2019-01-26 13:22 | Physical Therapy Daily Note ---
PT Daily Note-Current Subjective Patient in bed pre tx, agrees to PT, has no complaints of pain at rest. Appearance Patient in bed post tx with nurse call, phone, tray, CPM donned. Mental Status Patient Orientation: Normal For Age Transfers Therapy Code Descriptions/Definitions Functional [place] Measure: 0=Not Assessed/NA 4=Minimal Assistance 1=Total Assistance 5=Supervision or Setup 2=Maximal Assistance 6=Modified [place] 3=Moderate Assistance 7=Complete [place] Therapy Quality Codes: 6 Independent with activity with or without an assistive device 5 Patient requires set up or clean up by helper. Patient completes activity by themselves 4 Supervision or touching assist (CGA). [place] provide cues , steadying assist 3 The helper provides less than half the effort to complete the activity 2 The helper provides more than half the effort to complete the activity 1 Dependent. The helper does all the effort to complete an activity 7 Patient refused to complete or attempt activity 9 The patient did not perform the activity before the current illness or injury 88 Not attempted due to Medical conditions or safety concerns Weight Bearing Right Lower Extremity: Right Weight Bearing/Tolerated Left Lower Extremity: Left Full Weight Bearing Exercises Supine Ex: Ankle pumps, Quad Set, Glut sets, Heel Slides, Short Arc Quads, Straight leg raise, Hip abd/add Supine Reps: 20 Treatments LE exercise, donning CPM Assessment Current Status: Poor Progress AAROM on the right side, performed exercises bilaterally PT Short Term Goals Short Term Goals Time Frame: Feb 07, 2019 Transfers (B,C,W/C) (FIM): 4 Gait (FIM): 2 Distance (FIM): 1=up to 49 ft Gait Assistive Device: FWW Wheelchair (FIM): 6 Wheelchair distance (FIM): 3=150 ft PT Longterm Goals [place] Reverse Winder Goals PT [place] Reverse [place]inder Goals Time Frame: Feb 21, 2019 Transfers (B,C,W/C) (FIM): 5 Sit to Lying (QC): 6 Lying-Sitting on Side/Bed(QC): 6 Sit to Stand (QC): 6 Rollin Roll Left to Right (QC): 6 Chair/Snu-zo-Vejll Xfer(QC): 5 Car Transfer (QC): 4 Does the Patient Walk: No and Walking Goal IS indicated Gait (FIM): 2 Gait distance (FIM): 1=up to 49 ft Distance: 20 ft Walk 10 feet (QC): 6 Walk 10ft-Uneven Surface(QC): 4 Walk 50ft with 2 Turns (QC): 88 Walk 150 ft (QC): 88 Gait Assistive Device: FWW Does the Pt use WC or Scooter?: Yes Wheelchair (FIM): 6 Wheelchair distance (FIM): 3=150 ft Wheel 50 feet with 2 turns (QC: 6 Stairs (FIM): 0 1 Step (curb) (QC): 9 4 Steps (QC): 9 12 Steps (QC): 9 Picking up an Object (QC): 88 PT Plan Problem List Problem List: Activity Tolerance, Functional Strength, Safety, Balance, Gait, Transfer, Bed Mobility, ROM Treatment/Plan Treatment Plan: Continue Plan of Care Treatment Plan: Bed Mobility, Education, Functional Activity Glenn, Functional Strength, Group Therapy, Gait, Safety, Therapeutic Exercise, Transfers Treatment Duration: Feb 21, 2019 Frequency: At least 5 of 7 days/Wk (IRF) Estimated Hrs Per Day: 1.5 hours per day Patient and/or Family Agrees t: Yes Safety Risks/Education Patient Education: Correct Positioning, Safety Issues Teaching Recipient: Patient Teaching Methods: Demonstration, Discussion Response to Teaching: Reinforcement Needed Time/GCodes Time In: 1300 Time Out: 1330 Total Billed Treatment Time: 30 Total Billed Treatment 1 visit EX 30' MICHELLE FUNES PT Jan 26, 2019 13:22
[2019-01-26 15:51] VITALS: BP 104/55
[2019-01-26] MEDS: TAMSULOSIN 0.4 MG (FLOMAX) CAP PO SCH (17:37)
[2019-01-26] MEDS: PANTOPRAZOLE 40 MG (PROTONIX) TAB PO SCH (17:38)
[2019-01-26] MEDS: ENOXAPARIN 40 MG/0.4 ML (LOVENOX) SYR SC SCH (17:39)
[2019-01-26] MEDS: MELATONIN 3 MG TABLET PO PRN (20:54)
--- NOTE | 2019-01-26 23:30 | NUR ---
Silvio WV'ed at 1800 by precious. Up to this moment the pt has attempted to void but he has been unsuccessful, denies any bladder discomfort, no bladder distension noted, Dr. Juárez notified. New order to straight cath if bladder scanner shows more than 400 ml. Bladder scanner shows 220 ml. Will continue monitoring.
[2019-01-27] MEDS: TROSPIUM 20 MG (SANCTURA) TAB PO SCH ×2 (05:00→18:05)
[2019-01-27] MEDS: PREGABALIN 150 MG (LYRICA) CAPSULE PO SCH ×2 (05:00→20:57)
[2019-01-27] MEDS: ENOXAPARIN 40 MG/0.4 ML (LOVENOX) SYR SC SCH ×2 (05:01→18:05)
[2019-01-27] MEDS: LEVOTHYROXINE 100 MCG (LEVOTHROID) TAB PO SCH (05:02)
[2019-01-27] MEDS: LEVOTHYROXINE 50 MCG (LEVOTHROID) TAB PO SCH (05:02)
[2019-01-27] MEDS: HYDROcodone/APAP 10 MG/325 MG (LORTAB) TAB PO PRN ×2 (05:02→21:02)
--- NOTE | 2019-01-27 05:30 | NUR ---
Patient assisted to the BSC. Adult diaper is wet with large amount of urine, bed is wet. Patient voided 250 ml of urine in the BSC. Bladder scanner shows 216 ml. Will continue monitoring.
[2019-01-27 06:00] VITALS: BP 129/76
[2019-01-27] MEDS: SENNA W/DOCUSATE (SENOKOT S) TABLET PO SCH ×2 (10:15→20:58)
[2019-01-27] MEDS: ASPIRIN 81 MG CHEW (CHILDREN'S ASA) PO SCH (10:15)
[2019-01-27] MEDS: POLYETHYLENE GLYCOL 17 GM (MIRALAX) PACK PO SCH ×2 (10:15→20:58)
--- NOTE | 2019-01-27 11:51 | Physical Therapy Daily Note ---
PT Daily Note-Current Subjective Pt agreeable to PT session. No new c/o's Pain Numeric Pain Scale: 0-No Pain Comment: only increases some with R knee movement Appearance Pt in bed upon arrival awake and alert. At end of session, pt in bed with bed in chair position, call light, phone and bedside table within reach, ice machine in place to R knee Mental Status Patient Orientation: Person, Place, Time, Eyes Open, Situation Attachments: [place] Transfers Therapy Code Descriptions/Definitions Functional [place] Measure: 0=Not Assessed/NA 4=Minimal Assistance 1=Total Assistance 5=Supervision or Setup 2=Maximal Assistance 6=Modified [place] 3=Moderate Assistance 7=Complete [place] Therapy Quality Codes: 6 Independent with activity with or without an assistive device 5 Patient requires set up or clean up by helper. Patient completes activity by themselves 4 Supervision or touching assist (CGA). [place] provide cues , steadying assist 3 The helper provides less than half the effort to complete the activity 2 The helper provides more than half the effort to complete the activity 1 Dependent. The helper does all the effort to complete an activity 7 Patient refused to complete or attempt activity 9 The patient did not perform the activity before the current illness or injury 88 Not attempted due to Medical conditions or safety concerns Weight Bearing Right Lower Extremity: Right Weight Bearing/Tolerated Left Lower Extremity: Left Full Weight Bearing Exercises Supine Ex: Ankle pumps, Quad Set, Heel Slides, Short Arc Quads (with bed in chair position), Straight leg raise, Hip abd/add Supine Reps: 20 (occasional need for AAROM R knee, otherwise AROM) Seated Therapy Exercises: Long arc quads, Hip flexion, Hip abd/add Seated Reps: 20 (BLE's, occasional AAROM RLE, otherwise AROM) Treatments strengthening, ROM, activity tolerance, bed mobility Assessment Pt tolerating increased stretching by REFINERY OPERATOR CRUDE UNIT this session PT Short Term Goals Short Term Goals Time Frame: Feb 07, 2019 Transfers (B,C,W/C) (FIM): 4 Gait (FIM): 2 Distance (FIM): 1=up to 49 ft Gait Assistive Device: FWW Wheelchair (FIM): 6 Wheelchair distance (FIM): 3=150 ft PT Label Coder Goals Label Coder Goals PT Label Coder Goals Time Frame: Feb 21, 2019 Transfers (B,C,W/C) (FIM): 5 Sit to Lying (QC): 6 Lying-Sitting on Side/Bed(QC): 6 Sit to Stand (QC): 6 Rollin Roll Left to Right (QC): 6 Chair/Oeq-ge-Mndmm Xfer(QC): 5 Car Transfer (QC): 4 Does the Patient Walk: No and Walking Goal IS indicated Gait (FIM): 2 Gait distance (FIM): 1=up to 49 ft Distance: 20 ft Walk 10 feet (QC): 6 Walk 10ft-Uneven Surface(QC): 4 Walk 50ft with 2 Turns (QC): 88 Walk 150 ft (QC): 88 Gait Assistive Device: FWW Does the Pt use WC or Scooter?: Yes Wheelchair (FIM): 6 Wheelchair distance (FIM): 3=150 ft Wheel 50 feet with 2 turns (QC: 6 Stairs (FIM): 0 1 Step (curb) (QC): 9 4 Steps (QC): 9 12 Steps (QC): 9 Picking up an Object (QC): 88 PT Plan Treatment/Plan Treatment Plan: Continue Plan of Care Treatment Plan: Bed Mobility, Education, Functional Activity Glenn, Functional Strength, Group Therapy, Gait, Safety, Therapeutic Exercise, Transfers Treatment Duration: Feb 21, 2019 Frequency: At least 5 of 7 days/Wk (IRF) Estimated Hrs Per Day: 1.5 hours per day Patient and/or Family Agrees t: Yes Safety Risks/Education Patient Education: Reviewed Precautions, Disease Process, Safety Issues Teaching Recipient: Patient Teaching Methods: Demonstration, Discussion Response to Teaching: Verbalize Understanding Time/GCodes Time In: 1135 Time Out: 1219 Total Billed Treatment Time: 44 Total Billed Treatment 1 visit, EX x30 min, FA x14 min PHILLIP LOCKWOOD PTA Jan 27, 2019 11:51
--- NOTE | 2019-01-27 12:24 | PM&R Progress Note ---
Subjective HPI/CC On Admission Date Seen by Provider: Jan 27, 2019 Time Seen by Provider: 12:10 CC: Debility following right total knee replacement uncomplicated by Dr. Byrnes POD # 1 HPI: This is a 78yoWM who is s/p uncomplicated right total knee replacement by Dr. Byrnes who is currently in need of intensive therapy in order to return home of which the last several years he went from using a can to a walker and then wheelchair bound for the past three years due to right knee pain and unable to ambulate. He does have all the assistive devices and wheelchair friendly house but he would like to improve him ambulation, improve the safety of his transfers and lessen the burden of care for his of 58 years. His PCP is Dr. Bach and Dr. Giraldo sees him after recently becoming established last week for a heart attack he had in 1995 and a cardiac murmur. (EST was normal). He is currently doing well and remains with a Anguiano catheter due to the inability to get out of bed so he would like to keep that in for a little while longer in order to prevent incontinence and other issues. He has not had a BM but is eating and drinking well. He is supposed to wear CPAP but is noncompliant and de nies wearing oxygen at home. At this current time pt pain is well controlled at a 3 currently. He has a CPM machine on board and I did update Dr. Byrnes on the fact that we would admit him to inpatient rehab to return to prior level of functioning or a little better in order to regain independence in ADLs and ambulation at home. 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 The pt has no new complaints at this time. Subjective/Events-last exam Holding Lasix due to hypotension and noted some retention in his legs Cozaar was DC per Dr Giraldo Catheter was DC yesterday and had retention requiring in/out cath and now he seems to have incontinence so may need to consult Dr Khalil depending on how this progresses Bowels need to move so will give suppository and SSE if needed Check meds and labs Conferred with RN Reviewed therapy notes Appreciate cardiology consultation Review of Systems Gastrointestinal: Constipation Genitourinary: Incontinence, Retention Objective Exam Vital Signs Vital Signs Date Time Temp Pulse Resp B/P (MAP) Pulse Ox O2 Delivery O2 Flow Rate FiO2 01/27/19 17:13 98.4 84 18 124/72 (89) 90 Room Air Capillary Refill : General Appearance: No Apparent Distress, WD/WN, Chronically ill HEENT: PERRL/EOMI, Normal ENT Inspection, Pharynx Normal Neck: Full Range of Motion, Normal Inspection, Non Tender, Supple Respiratory: Chest Non Tender, Lungs Clear, No Accessory Muscle Use, No Respiratory Distress, Decreased Breath Sounds Cardiovascular: Regular Rate, Rhythm, Systolic Murmur, Other (Systolic ejection murmor, 3/6 with radiation to carotids) Gastrointestinal: Normal Bowel Sounds, No Organomegaly, No Pulsatile Mass, Non Tender, Soft Rectal: Deferred Back: Normal Inspection, No CVA Tenderness Extremity: Normal Capillary Refill, Normal Inspection, Normal Range of Motion (except right leg), Non Tender, No Calf Tenderness, Pedal Edema Neurologic/Psychiatric: Alert, Oriented x3, No Motor/Sensory Deficits, Normal Mood/Affect, canal structure operator II-XII Norm as 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 FIM Transfers Therapy Code Descriptions/Definitions Functional [place] Measure: 0=Not Assessed/NA 4=Minimal Assistance 1=Total Assistance 5=Supervision or Setup 2=Maximal Assistance 6=Modified [place] 3=Moderate Assistance 7=Complete [place] Therapy Quality Codes: 6 Independent with activity with or without an assistive device 5 Patient requires set up or clean up by helper. Patient completes activity by themselves 4 Supervision or touching assist (CGA). [place] provide cues , steadying assist 3 The helper provides less than half the effort to complete the activity 2 The helper provides more than half the effort to complete the activity 1 Dependent. The helper does all the effort to complete an activity 7 Patient refused to complete or attempt activity 9 The patient did not perform the activity before the current illness or injury 88 Not attempted due to Medical conditions or safety concerns Transfers (B, C, W/C) (FIM): 1 Scootin Rollin Roll Left to Right (QC): 3 Supine to/from Sit: 4 Sit to/from Stand: 1 Sit to Lying (QC): 2 (max assist to get legs into bed and for trunk control) Sit to Stand (QC): 1 Chair/Tyb-jc-Etbrp Xfer(QC): 1 Bed to/from Chair: 1 Car Transfer (QC): 88 (unsafe to attempt with sit to stand lift) Gait Training Does the Patient Walk?: No and Walking Goal IS indicated Gait (FIM): 0 (pt unable to come to a full stand to attempt ambulation; requires a mech sit to stand lift to stand up) Distance (FIM): 0=does not occure Walk 10 feet (QC): 88 Walk 50 ft with 2 Turns(QC): 88 Walk 150 ft (QC): 9 Walking 10ft/uneven surface-QC: 88 Gait Assistive Device: FWW Wheelchair Training Does the Pt Use a Wheelchair?: Yes Wheelchair (FIM): 2 Wheelchair Distance: 1=up to 49 ft Wheelchair Level of Assist: 4 Wheel 50 ft with 2 turns (QC): 3 Wheel 150 ft (QC): 2 Type of Wheelchair: Manual Stair Training Stairs (FIM): 0 1 Step (curb) (QC): 88 4 Steps (QC): 88 12 Steps (QC): 88 Balance Picking up an Object (QC): 88 Mental Status/Objective Comprehension: 7 Expression: 7 Social Interaction: 7 Problem Solvin Memory: 7 ADL-Treatment Groomin Oral Hygiene (QC): 5 Bathin Shower/Bathe Self (QC): 4 Upper Extremity Dressin Upper Body Dressing (QC): 5 Lower Extremity Dressin Lower Body Dressing (QC): 2 On/Off Footwear (QC): 2 Shower: 1 Assessment/Plan Assessment and Plan Assess & Plan/Chief Complaint A/P: IRF protocols BM regimen to intensify to prevent ileus Pain control Lovenox Consult Dr Giraldo is appreciated Monitor hypotension Home meds In/Out cath for retention may need Dr Khalil consult OOB on commode to help with BM after supp given today (1) Status post total right knee replacement Status: Acute (2) Primary osteoarthritis of right knee Status: Chronic (3) Essential hypertension Status: Chronic (4) Constipation Status: Chronic Qualifiers: Constipation type: slow transit constipation Qualified Codes: K59.01 - Slow transit constipation (5) CAD (coronary artery disease) Status: Chronic Qualifiers: Coronary Disease-Associated Artery/Lesion type: [place] artery [place] vs. transplanted heart: [place] heart Associated angina: without angina Qualified Codes: I25.10 - Atherosclerotic heart disease of [place] coronary artery without angina pectoris (6) Hypothyroidism Status: Chronic Qualifiers: Hypothyroidism type: acquired Qualified Codes: E03.9 - Hypothyroidism, unspecified (7) Type II diabetes mellitus Status: Chronic Qualifiers: Diabetes mellitus parts remover insulin use: without mcc use Diabetes luis felipe litus complication status: with circulatory complication Diabetes mellitus complication detail: with other circulatory complications Qualified Codes: E11.59 - Type 2 diabetes mellitus with other circulatory complications (8) LILIAN (obstructive sleep apnea) Status: Chronic (9) Systolic murmur Status: Chronic (10) GERD without esophagitis Status: Chronic (11) Postoperative anemia Status: Acute (12) BPH (benign prostatic hyperplasia) Status: Chronic Qualifiers: Lower urinary tract symptom presence: unspecified whether lower urinary tract symptoms present Qualified Codes: N40.0 - Benign prostatic hyperplasia without lower urinary tract symptoms (13) Anguiano catheter in place Status: Acute (14) History of coronary artery stent placement Status: Chronic DM BERUMEN DO Jan 27, 2019 12:24
[2019-01-27] MEDS: BISACODYL 10 MG SUPP (DULCOLAX) PR SCH ×2 (13:07→20:58)
--- NOTE | 2019-01-27 13:15 | Progress Note - Cardiology ---
Cardiology SOAP Progress Note Subjective: No cp or palp or syncope No shortness of breath at rest Notes ankle swelling Objective: I&O/Vital Signs 01/27/19 06:00 Temp 98.3 Pulse 94 Resp 20 B/P (MAP) 129/76 (93) Pulse Ox 91 O2 Delivery Room Air 01/27/19 00:00 Intake Total 975 ml Output Total 1000 ml Balance -25 ml Weight (Pounds): 283 Weight (Ounces): 3.0 Weight (Calculated Kilograms): [id number] Constitutional: AAO x 3, well-developed, well-nourished Respiratory: lungs clear to percussion, lungs clear to auscultation Cardiovascular: regular rate-rhythm, S1 and S2, systolic murmur Gastrointestional: audible bowel sounds Extremities: swelling (moderate, bilateral leg swelling); No clubbing, No cyanosis Neurologic/Psychiatric: oriented x 3, grossly intact Skin: No rash on exposed areas, No ulcerations on exposed areas Results/Procedures: Labs Laboratory Tests 01/26/19 05:50 A/P: Assessment: Relative hypotension, now resolved S/p right TKR on 01-23-[address] Byrnes Severe aortic stenosis. Echocardiogram of 01-19-19 showed concentric hypertrophy. LVEF 70-75%. LA mod dilated. Severe Ao stenosis, mean gradient 53 mmHg, valve area 1.1 sq sm. RVSP 20 mmHg. Mild MR. H/o CAD, s/p two cor stents in 1995 following [place], details unknown MPI of January 19, 2019 showed no evidence of any significant myocardial ischemia or infarction. LVEF 91% Bilateral leg swelling, likely due to venous insufficiency Quit smoking in 1995 DJD H/o hyperlipidemia - statin tx - followed by his PCP LILIAN, non-compliant with CPAP Mild COPD on PFTs of Mar 2019 Plan: * Resume furosemide (to control leg swellin) in a low dose * Monitor labs DONN THEODORE MD FACP FAC CCDS Jan 27, 2019 13:15
[2019-01-27 17:13] VITALS: BP 124/72
[2019-01-27] MEDS: TAMSULOSIN 0.4 MG (FLOMAX) CAP PO SCH (18:05)
[2019-01-27] MEDS: PANTOPRAZOLE 40 MG (PROTONIX) TAB PO SCH (18:05)
[2019-01-27] MEDS: MELATONIN 3 MG TABLET PO PRN (21:02)
[2019-01-28] MEDS: MELATONIN 3 MG TABLET PO PRN (01:41)
[2019-01-28 06:01] VITALS: BP 16/68
[2019-01-28] MEDS: TROSPIUM 20 MG (SANCTURA) TAB PO SCH ×2 (06:06→16:37)
[2019-01-28] MEDS: LEVOTHYROXINE 50 MCG (LEVOTHROID) TAB PO SCH (06:06)
[2019-01-28] MEDS: PREGABALIN 150 MG (LYRICA) CAPSULE PO SCH ×2 (06:06→21:39)
[2019-01-28] MEDS: LEVOTHYROXINE 100 MCG (LEVOTHROID) TAB PO SCH (06:06)
[2019-01-28] MEDS: ENOXAPARIN 40 MG/0.4 ML (LOVENOX) SYR SC SCH ×2 (06:07→17:13)
[2019-01-28 07:00] VITALS: BP 116/68
[2019-01-28] MEDS ORDERED: FUROSEMIDE 20 MG (LASIX) TAB PO SCH (08:00)
[2019-01-28] MEDS: SENNA W/DOCUSATE (SENOKOT S) TABLET PO SCH ×2 (08:58→21:39)
[2019-01-28] MEDS: ASPIRIN 81 MG CHEW (CHILDREN'S ASA) PO SCH (08:58)
[2019-01-28] MEDS: HYDROcodone/APAP 10 MG/325 MG (LORTAB) TAB PO PRN (08:58)
[2019-01-28] MEDS: POLYETHYLENE GLYCOL 17 GM (MIRALAX) PACK PO SCH ×2 (09:01→21:40)
[2019-01-28] MEDS: BISACODYL 10 MG SUPP (DULCOLAX) PR SCH ×2 (09:01→19:38)
--- NOTE | 2019-01-28 12:01 | PM&R Progress Note ---
Subjective HPI/CC On Admission Date Seen by Provider: Jan 28, 2019 Time Seen by Provider: 11:40 CC: Debility following right total knee replacement uncomplicated by Dr. Byrnes POD # 1 HPI: This is a 78yoWM who is s/p uncomplicated right total knee replacement by Dr. Byrnes who is currently in need of intensive therapy in order to return home of which the last several years he went from using a can to a walker and then wheelchair bound for the past three years due to right knee pain and unable to ambulate. He does have all the assistive devices and wheelchair friendly house but he would like to improve him ambulation, improve the safety of his transfers and lessen the burden of care for his of 58 years. His PCP is Dr. Bach and Dr. Giraldo sees him after recently becoming established last week for a heart attack he had in 1995 and a cardiac murmur. (EST was normal). He is currently doing well and remains with a Anguiano catheter due to the inability to get out of bed so he would like to keep that in for a little while longer in order to prevent incontinence and other issues. He has not had a BM but is eating and drinking well. He is supposed to wear CPAP but is noncompliant and de nies wearing oxygen at home. At this current time pt pain is well controlled at a 3 currently. He has a CPM machine on board and I did update Dr. Byrnes on the fact that we would admit him to inpatient rehab to return to prior level of functioning or a little better in order to regain independence in ADLs and ambulation at home. 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 The pt has no new complaints at this time. Subjective/Events-last exam Lasix ordered Q48 hours for edema and had been held for hypotension Cozaar was DC per Dr Giraldo Wide YULI wraps will be applied to lower legs edema Urinary issues are improving and not as much incontinence Bowels moved a bit tomorrow so will increase bowel regimen Check meds and labs Conferred with RN Reviewed therapy notes Appreciate cardiology consultation Review of Systems General: Fatigue Gastrointestinal: Constipation Genitourinary: Incontinence, Retention Objective Exam Vital Signs Vital Signs Date Time Temp Pulse Resp B/P (MAP) Pulse Ox O2 Delivery O2 Flow Rate FiO2 01/28/19 09:59 Room Air 01/28/19 06:01 99.2 89 18 16/68 (51) 93 Capillary Refill : General Appearance: No Apparent Distress, WD/WN, Chronically ill HEENT: PERRL/EOMI, Normal ENT Inspection, Pharynx Normal Neck: Full Range of Motion, Normal Inspection, Non Tender, Supple Respiratory: Chest Non Tender, Lungs Clear, No Accessory Muscle Use, No Respiratory Distress, Decreased Breath Sounds Cardiovascular: Regular Rate, Rhythm, Systolic Murmur, Other (Systolic ejection murmor, 3/6 with radiation to carotids) Gastrointestinal: Normal Bowel Sounds, No Organomegaly, No Pulsatile Mass, Non Tender, Soft Rectal: Deferred Back: Normal Inspection, No CVA Tenderness Extremity: Normal Capillary Refill, Normal Inspection, Normal Range of Motion (except right leg), Non Tender, No Calf Tenderness, Pedal Edema Neurologic/Psychiatric: Alert, Oriented x3, No Motor/Sensory Deficits, Normal 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 FIM Transfers Therapy Code Descriptions/Definitions Functional [place] Measure: 0=Not Assessed/NA 4=Minimal Assistance 1=Total Assistance 5=Supervision or Setup 2=Maximal Assistance 6=Modified [place] 3=Moderate Assistance 7=Complete [place] Therapy Quality Codes: 6 Independent with activity with or without an assistive device 5 Patient requires set up or clean up by helper. Patient completes activity by themselves 4 Supervision or touching assist (CGA). [place] provide cues , steadying assist 3 The helper provides less than half the effort to complete the activity 2 The helper provides more than half the effort to complete the activity 1 Dependent. The helper does all the effort to complete an activity 7 Patient refused to complete or attempt activity 9 The patient did not perform the activity before the current illness or injury 88 Not attempted due to Medical conditions or safety concerns Transfers (B, C, W/C) (FIM): 1 Scootin Rollin Roll Left to Right (QC): 3 Supine to/from Sit: 4 Sit to/from Stand: 1 Sit to Lying (QC): 2 (max assist to get legs into bed and for trunk control) Sit to Stand (QC): 1 Chair/[id number] Xfer(QC): 1 Bed to/from Chair: 1 Car Transfer (QC): 88 (unsafe to attempt with sit to stand lift) Gait Training Does the Patient Walk?: No and Walking Goal IS indicated Gait (FIM): 0 (pt unable to come to a full stand to attempt ambulation; requires a mech sit to stand lift to stand up) Distance (FIM): 0=does not occure Walk 10 feet (QC): 88 Walk 50 ft with 2 Turns(QC): 88 Walk 150 ft (QC): 9 Walking 10ft/uneven surface-QC: 88 Gait Assistive Device: FWW Wheelchair Training Does the Pt Use a Wheelchair?: Yes Wheelchair (FIM): 2 Wheelchair Distance: 1=up to 49 ft Wheelchair Level of Assist: 4 Wheel 50 ft with 2 turns (QC): 3 Wheel 150 ft (QC): 2 Type of Wheelchair: Manual Stair Training Stairs (FIM): 0 1 Step (curb) (QC): 88 4 Steps (QC): 88 12 Steps (QC): 88 Balance Picking up an Object (QC): 88 Mental Status/Objective Comprehension: 7 Expression: 7 Social Interaction: 7 Problem Solvin Memory: 7 ADL-Treatment Groomin Oral Hygiene (QC): 5 Bathin Shower/Bathe Self (QC): 4 Upper Extremity Dressin Upper Body Dressing (QC): 5 Lower Extremity Dressin Lower Body Dressing (QC): 2 On/Off Footwear (QC): 2 Shower: 1 Assessment/Plan Assessment and Plan Assess & Plan/Chief Complaint A/P: IRF protocols BM regimen to intensify until completely evacuated Pain control Lovenox Consult Dr Giraldo is appreciated Monitor hypotension Home meds In/Out cath for retention may need Dr Khalil consult if this issue does not resolve OOB on commode to help with BM Incision looks good Slept pretty well Lasix every 48 hours for edema along with wide YULI wraps (1) Status post total right knee replacement Status: Acute (2) Primary osteoarthritis of right knee Status: Chronic (3) Essential hypertension Status: Chronic (4) Constipation Status: Chronic Qualifiers: Constipation type: slow transit constipation Qualified Codes: K59.01 - Slow transit constipation (5) CAD (coronary artery disease) Status: Chronic Qualifiers: Coronary Disease-Associated Artery/Lesion type: [place] artery [place] vs. transplanted heart: [place] heart Associated angina: without angina Qualified Codes: I25.10 - Atherosclerotic heart disease of [place] coronary artery without angina pectoris (6) Hypothyroidism Status: Chronic Qualifiers: Hypothyroidism type: acquired Qualified Codes: E03.9 - Hypothyroidism, unspecified (7) Type II diabetes mellitus Status: Chronic Qualifiers: Diabetes mellitus mcc insulin use: without dedicated intermodal truck driver use Diabetes mellitus complication status: with circulatory complication Diabetes mellitus complication detail: with other circulatory complications Qualified Codes: E11.59 - Type 2 diabetes mellitus with other circulatory complications (8) LILIAN (obstructive sleep apnea) Status: Chronic (9) Systolic murmur Status: Chronic (10) GERD without esophagitis Status: Chronic (11) Postoperative anemia Status: Acute (12) BPH (benign prostatic hyperplasia) Status: Chronic Qualifiers: Lower urinary tract symptom presence: unspecified whether lower urinary tract symptoms present Qualified Codes: N40.0 - Benign prostatic hyperplasia without lower urinary tract symptoms (13) Anguiano catheter in place Status: Acute (14) History of coronary artery stent placement Status: Chronic DM BERUMEN DO Jan 28, 2019 12:01
--- NOTE | 2019-01-28 14:10 | Progress Note - Cardiology ---
Cardiology SOAP Progress Note Subjective: No cp or palp or syncope or shortness of breath at rest Objective: I&O/Vital Signs 01/28/19 01/28/19 06:01 09:59 Temp 99.2 Pulse 89 Resp 18 B/P (MAP) 16/68 (51) Pulse Ox 93 O2 Delivery Room Air Room Air 01/28/19 00:00 Intake Total 510 ml Balance 510 ml Weight (Pounds): 283 Weight (Ounces): 3.0 Weight (Calculated Kilograms): 128.019692 Constitutional: AAO x 3, well-developed, well-nourished Respiratory: lungs clear to percussion, lungs clear to auscultation Cardiovascular: regular rate-rhythm, S1 and S2, systolic murmur Gastrointestional: audible bowel sounds Extremities: swelling (moderate, bilateral leg swelling); No clubbing, No cyanosis Neurologic/Psychiatric: oriented x 3, grossly intact Skin: No rash on exposed areas, No ulcerations on exposed areas Results/Procedures: Labs Laboratory Tests 01/27/19 15:27: Glucometer 126H A/P: Assessment: Relative hypotension, now resolved S/p right TKR on 01-23-[address] Byrnes Severe aortic stenosis. Echocardiogram of 01-19-19 showed concentric hypertrophy. LVEF 70-75%. LA mod dilated. Severe Ao stenosis, mean gradient 53 mmHg, valve area 1.1 sq sm. RVSP 20 mmHg. Mild MR. H/o CAD, s/p two cor stents in 1995 following [place], details unknown MPI of January 19, 2019 showed no evidence of any significant myocardial ischemia or infarction. LVEF 91% Bilateral leg swelling, likely due to venous insufficiency Quit smoking in 1995 DJD H/o hyperlipidemia - statin tx - followed by his PCP LILIAN, non-compliant with CPAP Mild COPD on PFTs of Mar 2019 Plan: * Furosemide resumed in a low dose (to control leg swelling) * Compression stockings * Monitor labs DONN THEODORE MD FACP FAC CCDS Jan 28, 2019 14:10
[2019-01-28] MEDS: TAMSULOSIN 0.4 MG (FLOMAX) CAP PO SCH (17:12)
[2019-01-28] MEDS: PANTOPRAZOLE 40 MG (PROTONIX) TAB PO SCH (17:12)
[2019-01-28 17:25] VITALS: BP 116/77
--- NOTE | 2019-01-28 18:15 | NUR ---
Incontinent X1 (small amount) in brief this AM and voided in [facility] X1. Will measure urine since patient is now on Lasix Q48H and will check post void residual after next void. Addendum: 01/28/19 at 1822 by MORENITA JONES RN Patient also states that he hasn't been drinking as much since his catheter was removed. States that he doesn't want to "get up to the BR all the time". Patient encouraged to increase fluid intake.
--- NOTE | 2019-01-28 18:58 | NUR ---
Patient voided 200mls in urinal. Post void bladder scan done and showing 531mls. Straight cath done per orders. 500mls clear, light brandon urine immediate return. Dr. Juárez notified.
--- NOTE | 2019-01-29 02:55 | NUR ---
Pt had been incont in brief but unable to void in urinal all evening. Bladder scan shows >463ml. Pt straight cathed using sterile technique. 500 ml clear brandon urine returned. Pt rossana well. At this time, O2 sat is 86-88% on room air and temp 99.9. O2 on at 2L/NC and sats came up to between 92-94%. RT notified and will cont to monitor vitals closely.
[2019-01-29] MEDS: MELATONIN 3 MG TABLET PO PRN ×2 (03:16→21:10)
[2019-01-29] MEDS: HYDROcodone/APAP 10 MG/325 MG (LORTAB) TAB PO PRN ×3 (03:54→18:50)
[2019-01-29 05:20] VITALS: BP 117/69
[2019-01-29 05:21] LABS: BASOPHILS % (AUTO) 1 % (0-10); EOSINOPHILS # (AUTO) 0.2 10^3/uL (0.0-0.3); EOSINOPHILS % (AUTO) 4 % (0-10); HEMATOCRIT 29 % (40-54); HEMOGLOBIN 9.4 G/DL (13.3-17.7); LYMPHOCYTES # (AUTO) 0.8 X 10^3 (1.0-4.0); LYMPHOCYTES % (AUTO) 15 % (12-44); MEAN CORPUSCULAR HEMOGLOBIN 28 PG (25-34); MEAN CORPUSCULAR HGB CONC 32 G/DL (32-36); MEAN CORPUSCULAR VOLUME 88 FL (80-99); MEAN PLATELET VOLUME 10.7 FL (7.4-10.4); MONOCYTES # (AUTO) 0.6 X 10^3 (0.0-1.0); MONOCYTES % (AUTO) 10 % (0-12); NEUTROPHILS % (AUTO) 71 % (42-75); PLATELET COUNT 267 10^3/uL (130-400); RED CELL DISTRIBUTION WIDTH 16.3 % (10.0-14.5); WHITE BLOOD COUNT 5.6 10^3/uL (4.3-11.0)
[2019-01-29 05:55] LABS: ALANINE AMINOTRANSFERASE 95 U/L (0-55); ALKALINE PHOSPHATASE 69 U/L (40-136); BILIRUBIN,TOTAL 0.7 MG/DL (0.1-1.0); BUN/CREATININE RATIO 25; CARBON DIOXIDE 24 MMOL/L (21-32); CHLORIDE 104 MMOL/L (98-107); CREATININE SERUM 0.76 MG/DL (0.60-1.30); GFR ESTIMATED > 60; GLUCOSE 133 MG/DL (70-105); SODIUM 139 MMOL/L (135-145); TOTAL PROTEIN 5.9 GM/DL (6.4-8.2)
[2019-01-29] MEDS: ENOXAPARIN 40 MG/0.4 ML (LOVENOX) SYR SC SCH ×2 (05:59→18:47)
[2019-01-29] MEDS: LEVOTHYROXINE 100 MCG (LEVOTHROID) TAB PO SCH (06:00)
[2019-01-29] MEDS: TROSPIUM 20 MG (SANCTURA) TAB PO SCH (06:00)
[2019-01-29] MEDS: PREGABALIN 150 MG (LYRICA) CAPSULE PO SCH ×2 (06:00→21:09)
[2019-01-29] MEDS: LEVOTHYROXINE 50 MCG (LEVOTHROID) TAB PO SCH (06:00)
--- NOTE | 2019-01-29 06:04 | NUR ---
Pt sitting on side of bed. O2 sat 2L/NC 96%. Pt placed on room air and O2 sat after 10min was 91%. Cont to monitor.
--- NOTE | 2019-01-29 08:05 | PM&R Progress Note ---
Subjective HPI/CC On Admission Date Seen by Provider: Jan 29, 2019 Time Seen by Provider: 08:00 CC: Debility following right total knee replacement uncomplicated by Dr. Byrnes POD # 1 HPI: This is a 78yoWM who is s/p uncomplicated right total knee replacement by Dr. Byrnes who is currently in need of intensive therapy in order to return home of which the last several years he went from using a can to a walker and then wheelchair bound for the past three years due to right knee pain and unable to ambulate. He does have all the assistive devices and wheelchair friendly house but he would like to improve him ambulation, improve the safety of his transfers and lessen the burden of care for his of 56 years. His PCP is Dr. Bach and Dr. Giraldo sees him after recently becoming established last week for a heart attack he had in 1995 and a cardiac murmur. (EST was normal). He is currently doing well and remains with a Anguiano catheter due to the inability to get out of bed so he would like to keep that in for a little while longer in order to prevent incontinence and other issues. He has not had a BM but is eating and drinking well. He is supposed to wear CPAP but is noncompliant and denies wearing oxygen at home. At this current time pt pain is well controlled at a 3 currently. He has a CPM machine on board and I did update Dr. Byrnes on the fact that we would admit him to inpatient rehab to return to prior level of functioning or a little better in order to regain independence in ADLs and ambulation at home. 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 The pt has no new complaints at this time. Subjective/Events-last exam Discomfort in the knee will require two pills of Lortab 10s instead of one Hgb remains stable at 9.4 LFTs are 121 and 94 AST and ALT respectively In and Out caths are required so Dr. Khalil was consulted this morning Bowels were incontinent this morning 88% on room air, given oxygen but after he got up and around today his oxygen is normal Check meds and labs Conferred with RN Reviewed therapy notes Appreciate cardiology and Urology consultation Review of Systems Cardiovascular: Edema Genitourinary: Incontinence, Retention Musculoskeletal: leg pain Objective Exam Vital Signs Vital Signs Date Time Temp Pulse Resp B/P (MAP) Pulse Ox O2 Delivery O2 Flow Rate FiO2 01/29/19 18:00 98.7 90 20 122/67 (85) 92 Room Air Capillary Refill : General Appearance: No Apparent Distress, WD/WN, Chronically ill HEENT: PERRL/EOMI, Normal ENT Inspection, Pharynx Normal Neck: Full Range of Motion, Normal Inspection, Non Tender, Supple Respiratory: Chest Non Tender, Lungs Clear, No Accessory Muscle Use, No Respiratory Distress, Decreased Breath Sounds Cardiovascular: Regular Rate, Rhythm, Systolic Murmur, Other (Systolic ejection murmor, 3/6 with radiation to carotids) Gastrointestinal: Normal Bowel Sounds, No Organomegaly, No Pulsatile Mass, Non Tender, Soft Rectal: Deferred Back: Normal Inspection, No CVA Tenderness Extremity: Normal Capillary Refill, Normal Inspection, Normal Range of Motion (except right leg), Non Tender, No Calf Tenderness, Pedal Edema Neurologic/Psychiatric: Alert, Oriented x3, No Motor/Sensory Deficits, Normal 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 FIM Transfers Therapy Code Descriptions/Definitions Functional [place] Measure: 0=Not Assessed/NA 4=Minimal Assistance 1=Total Assistance 5=Supervision or Setup 2=Maximal Assistance 6=Modified [place] 3=Moderate Assistance 7=Complete [place] Therapy Quality Codes: 6 Independent with activity with or without an assistive device 5 Patient requires set up or clean up by helper. Patient completes activity by themselves 4 Supervision or touching assist (CGA). [place] provide cues , steadying assist 3 The helper provides less than half the effort to complete the activity 2 The helper provides more than half the effort to complete the activity 1 Dependent. The helper does all the effort to complete an activity 7 Patient refused to complete or attempt activity 9 The patient did not perform the activity before the current illness or injury 88 Not attempted due to Medical conditions or safety concerns Transfers (B, C, W/C) (FIM): 1 Scootin Rollin Roll Left to Right (QC): 3 Supine to/from Sit: 4 Sit to/from Stand: 1 Sit to Lying (QC): 2 (max assist to get legs into bed and for trunk control) Sit to Stand (QC): 1 Chair/Psr-cd-Yowbl Xfer(QC): 1 Bed to/from Chair: 1 Car Transfer (QC): 88 (unsafe to attempt with sit to stand lift) Gait Training Does the Patient Walk?: No and Walking Goal IS indicated Gait (FIM): 0 (pt unable to come to a full stand to attempt ambulation; requires a mech sit to stand lift to stand up) Distance (FIM): 0=does not occure Walk 10 feet (QC): 88 Walk 50 ft with 2 Turns(QC): 88 Walk 150 ft (QC): 9 Walking 10ft/uneven surface-QC: 88 Gait Assistive Device: FWW Wheelchair Training Does the Pt Use a Wheelchair?: Yes Wheelchair (FIM): 2 Wheelchair Distance: 1=up to 49 ft Wheelchair Level of Assist: 4 Wheel 50 ft with 2 turns (QC): 3 Wheel 150 ft (QC): 2 Type of Wheelchair: Manual Stair Training Stairs (FIM): 0 1 Step (curb) (QC): 88 4 Steps (QC): 88 12 Steps (QC): 88 Balance Picking up an Object (QC): 88 Mental Status/Objective Comprehension: 7 Expression: 7 Social Interaction: 7 Problem Solvin Memory: 7 ADL-Treatment Groomin Oral Hygiene (QC): 5 Bathin Shower/Bathe Self (QC): 4 Upper Extremity Dressin Upper Body Dressing (QC): 5 Lower Extremity Dressin Lower Body Dressing (QC): 2 On/Off Footwear (QC): 2 Shower: 1 Assessment/Plan Assessment and Plan Assess & Plan/Chief Complaint A/P: IRF protocols BM regimen to be maintained Pain control Lovenox Consult Dr Giraldo is appreciated Monitor hypotension Home meds In/Out cath for retention still so consulting Dr Simran JEFFERSON on commode to help with BM Incision looks good Slept pretty well Lasix every 48 hours for edema along with wide YULI wraps (1) Status post total right knee replacement Status: Acute (2) Primary osteoarthritis of right knee Status: Chronic (3) Essential hypertension Status: Chronic (4) Constipation Status: Chronic Qualifiers: Constipation type: slow transit constipation Qualified Codes: K59.01 - Slow transit constipation (5) CAD (coronary artery disease) Status: Chronic Qualifiers: Coronary Disease-Associated Artery/Lesion type: [place] artery [place] vs. 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 treater helper insulin use: without penitentiary use Diabetes mellitus complication status: with circulatory complication Diabetes mellitus complication detail: with other circulatory complications Qualified Codes: E11.59 - Type 2 diabetes mellitus with other circulatory complications (8) LILIAN (obstructive sleep apnea) Status: Chronic (9) Systolic murmur Status: Chronic (10) GERD without esophagitis Status: Chronic (11) Postoperative anemia Status: Acute (12) BPH (benign prostatic hyperplasia) Status: Chronic Qualifiers: Lower urinary tract symptom presence: unspecified whether lower urinary tract symptoms present Qualified Codes: N40.0 - Benign prostatic hyperplasia without lower urinary tract symptoms (13) Anguiano catheter in place Status: Acute (14) History of coronary artery stent placement Status: Chronic DM BERUMEN DO Jan 29, 2019 08:05
--- NOTE | 2019-01-29 09:30 | NUR ---
RA SAT 98%. ADMITS TO HAVE SOME PROBLEM EMPTYING OUT BLADDER PRIOR TO ADMISSION. DR. MCMILLAN CONSULTED AND HERE TO SEE PATIENT. ADJUSTMENTS MADE IN MEDICATION. STATES PAIN MED NOT HELPING LAST NIGHT TO RELIEVE RIGHT KNEE PAIN. DR. BERUMEN AWARE AND INCREASE IN PAIN MEDICATION ORDERED. SEE BLADDER SCAN INTERVENTION FOR CHECKS.
[2019-01-29] MEDS: ASPIRIN 81 MG CHEW (CHILDREN'S ASA) PO SCH (09:31)
[2019-01-29] MEDS: BISACODYL 10 MG SUPP (DULCOLAX) PR SCH ×2 (09:35→20:59)
[2019-01-29] MEDS: SENNA W/DOCUSATE (SENOKOT S) TABLET PO SCH ×2 (09:38→21:09)
[2019-01-29] MEDS: POLYETHYLENE GLYCOL 17 GM (MIRALAX) PACK PO SCH ×2 (09:39→21:10)
--- NOTE | 2019-01-29 10:01 | Progress Note - Cardiology ---
Cardiology SOAP Progress Note Subjective: States restless night last night d/t neuropathy pain in his legs. No c/o CP, palpitations. C/O LE swelling. Objective: I&O/Vital Signs 01/29/19 05:20 Temp 99.5 Pulse 91 Resp 20 B/P (MAP) 117/69 (85) Pulse Ox 95 O2 Delivery Room Air 01/29/19 00:00 Intake Total 500 ml Balance 500 ml Weight (Pounds): 283 Weight (Ounces): 3.0 Weight (Calculated Kilograms): 128.682205 Constitutional: AAO x 3, well-developed, well-nourished Respiratory: lungs clear to percussion, lungs clear to auscultation Cardiovascular: regular rate-rhythm, S1 and S2, systolic murmur Gastrointestional: audible bowel sounds Extremities: swelling (moderate, bilateral leg swelling; R>L); No clubbing, No cyanosis Neurologic/Psychiatric: oriented x 3, grossly intact Skin: No rash on exposed areas, No ulcerations on exposed areas; other (S/P right knee replacement - dressing in place D&I) Results/Procedures: Labs Laboratory Tests 01/29/19 04:50: Sodium Level 139, Potassium Level 4.0, Chloride Level 104, Carbon Dioxide Level 24, Anion Gap 11, Blood Urea Nitrogen 19H, Creatinine 0.76, Estimat Glomerular Filtration Rate > 60, BUN/Creatinine Ratio 25, Glucose Level 133H, Calcium Level 9.0, Corrected Calcium 9.8, Total Bilirubin 0.7, Aspartate Amino Transf (AST/SGOT) 121H, Alanine Aminotransferase (ALT/SGPT) 95H, Alkaline Phosphatase 69, Total Protein 5.9L, Albumin 3.0L 01/29/19 04:56: White Blood Count 5.6, Red Blood Count 3.32L, Hemoglobin 9.4L, Hematocrit 29L, Mean Corpuscular Volume 88, Mean Corpuscular Hemoglobin 28, Mean Corpuscular Hemoglobin Concent 32, Red Cell Distribution Width 16.3H, Platelet Count 267, Mean Platelet Volume 10.7H, Neutrophils (%) (Auto) 71, Lymphocytes (%) (Auto) 15, Monocytes (%) (Auto) 10, Eosinophils (%) (Auto) 4, Basophils (%) (Auto) 1, Neutrophils # (Auto) 4.0, Lymphocytes # (Auto) 0.8L, Monocytes # (Auto) 0.6, Eosinophils # (Auto) 0.2, Basophils # (Auto) 0.0 A/P: Assessment: Relative hypotension, now resolved S/p right TKR on 01-23-[address] Byrnes Severe aortic stenosis. Echocardiogram of 01-19-19 showed concentric hypertrophy. LVEF 70-75%. LA mod dilated. Severe Ao stenosis, mean gradient 53 mmHg, valve area 1.1 sq sm. RVSP 20 mmHg. Mild MR. H/o CAD, s/p two cor stents in 1995 following [place], details unknown MPI of January 19, 2019 showed no evidence of any significant myocardial ischemia or infarction. LVEF 91% Bilateral leg swelling, likely due to venous insufficiency Quit smoking in 1995 DJD H/o hyperlipidemia - statin tx - followed by his PCP LILIAN, non-compliant with CPAP Mild COPD on PFTs of Mar 2019 Elevate liver enzymes of undetermined etiology - medical services managing Plan: * Change Furosemide in a low dose to daily (to control leg swelling) * Compression stockings * Monitor labs Physician Assessment Physician Assessment No cp or palp or syncope A&O x 3 Lungs: fair air entry, diminished at bases Cor: reg Ext: no c/c; mod, bilat leg edema A&R * As documented in our note above that I updated (italics) and as noted below * Increase furosemide to daily * Monitor labs MILAGROS FONTANEZ [facility] Jan 29, 2019 10:01 DONN THEODORE MD [facility] Jan 29, 2019 11:27
[2019-01-29] MEDS ORDERED: FUROSEMIDE 20 MG (LASIX) TAB PO NR (10:15)
--- NOTE | 2019-01-29 11:00 | Physical Therapy Daily Note ---
PT Daily Note-Current Subjective Patient in bed pre tx, agrees to PT, has no complaints of pain at rest. Patient needs to get shorts on. Will be co-treating with OT due to poor patient mobility, strength, endurance, balance, the inability to ambulate or stand on his own, the need to coordinate UE and LE during activity. Appearance Patient in wheelchair in therapy gym post tx to finish up with OT. Mental Status Patient Orientation: Person, Place, Situation Transfers Therapy Code Descriptions/Definitions Functional [place] Measure: 0=Not Assessed/NA 4=Minimal Assistance 1=Total Assistance 5=Supervision or Setup 2=Maximal Assistance 6=Modified [place] 3=Moderate Assistance 7=Complete [place] Therapy Quality Codes: 6 Independent with activity with or without an assistive device 5 Patient requires set up or clean up by helper. Patient completes activity by themselves 4 Supervision or touching assist (CGA). [place] provide cues , steadying assist 3 The helper provides less than half the effort to complete the activity 2 The helper provides more than half the effort to complete the activity 1 Dependent. The helper does all the effort to complete an activity 7 Patient refused to complete or attempt activity 9 The patient did not perform the activity before the current illness or injury 88 Not attempted due to Medical conditions or safety concerns Transfers (B, C, W/C) (FIM): 4 Scootin Rollin Supine to/from Sit: 4 Bed to/from Chair: 4 Min assist sliding board transfer from bed to wheelchair. Patient needs assist placing the board and keeping it from sliding while patient slides across it. Standing in the parallel bars x4 with max assist. Patient is able to stand only about 20 seconds each time. Needs rest breaks between. Weight Bearing Right Lower Extremity: Right Weight Bearing/Tolerated Left Lower Extremity: Left Full Weight Bearing Wheelchair Training Does the Pt Use a Wheelchair?: Yes Wheelchair (FIM): 5 Distance: 150' Wheelchair Level of Assist: 5 Type of Wheelchair: Manual Exercises RLE stretching in flexion and extension, able to achieve 95 degrees flexion and +4 degrees extension. Treatments dressing, transfers and bed mobility, standing, PROM Assessment Current Status: Poor Progress no change in mobility but can perform a sliding board transfer PT Short Term Goals Short Term Goals Time Frame: Feb 07, 2019 Transfers (B,C,W/C) (FIM): 4 Gait (FIM): 2 Distance (FIM): 1=up to 49 ft Gait Assistive Device: FWW Wheelchair (FIM): 6 Wheelchair distance (FIM): 3=150 ft PT Wrapper Sorter Goals Group Home Goals PT Wrapper Sorter Goals Time Frame: Feb 21, 2019 Transfers (B,C,W/C) (FIM): 5 Sit to Lying (QC): 6 Lying-Sitting on Side/Bed(QC): 6 Sit to Stand (QC): 6 Rollin Roll Left to Right (QC): 6 Chair/Qqq-rc-Clojz Xfer(QC): 5 Car Transfer (QC): 4 Does the Patient Walk: No and Walking Goal IS indicated Gait (FIM): 2 Gait distance (FIM): 1=up to 49 ft Distance: 20 ft Walk 10 feet (QC): 6 Walk 10ft-Uneven Surface(QC): 4 Walk 50ft with 2 Turns (QC): 88 Walk 150 ft (QC): 88 Gait Assistive Device: FWW Does the Pt use WC or Scooter?: Yes Wheelchair (FIM): 6 Wheelchair distance (FIM): 3=150 ft Wheel 50 feet with 2 turns (QC: 6 Stairs (FIM): 0 1 Step (curb) (QC): 9 4 Steps (QC): 9 12 Steps (QC): 9 Picking up an Object (QC): 88 PT Plan Problem List Problem List: Activity Tolerance, Functional Strength, Safety, Balance, Gait, Transfer, Bed Mobility, ROM Treatment/Plan Treatment Plan: Continue Plan of Care Treatment Plan: Bed Mobility, Education, Functional Activity Glenn, Functional Strength, Group Therapy, Gait, Safety, Therapeutic Exercise, Transfers Treatment Duration: Feb 21, 2019 Frequency: At least 5 of 7 days/Wk (IRF) Estimated Hrs Per Day: 1.5 hours per day Patient and/or Family Agrees t: Yes Safety Risks/Education Patient Education: Transfer Techniques, Correct Positioning, W/C Management, Safety Issues Teaching Recipient: Patient Teaching Methods: Demonstration, Discussion Response to Teaching: Reinforcement Needed Time/GCodes Time In: 1000 Time Out: 1100 Total Billed Treatment Time: 60 Total Billed Treatment 1 visit [facility] 10' EX 15' FA 35' Co-treated with OT for 60', PT performed bed mobility and transfers and standing and LE PROM, OT performed UE exercises, assist with standing, transfer, UE positioning during activity. MICHELLE FUNES PT Jan 29, 2019 11:00
[2019-01-29] MEDS: TAMSULOSIN 0.4 MG (FLOMAX) CAP PO SCH ×2 (11:37→21:09)
--- NOTE | 2019-01-29 13:00 | NUR ---
FAMILY BROUGHT IN PATIENT'S OWN COMMODE FROM HOME. PATIENT STATES IT IS MUCH MORE COMFORTABLE TO USE. DR. THEODORE SAW PATIENT.
--- NOTE | 2019-01-29 13:18 | Physical Therapy Daily Note ---
PT Daily Note-Current Subjective Patient in wheelchair at bedside pre tx, agrees to PT, voices no complaints of pain. Appearance Patient in bed post tx with nurse call, phone, tray, all needs met. Mental Status Patient Orientation: Normal For Age Transfers Therapy Code Descriptions/Definitions Functional [place] Measure: 0=Not Assessed/NA 4=Minimal Assistance 1=Total Assistance 5=Supervision or Setup 2=Maximal Assistance 6=Modified [place] 3=Moderate Assistance 7=Complete [place] Therapy Quality Codes: 6 Independent with activity with or without an assistive device 5 Patient requires set up or clean up by helper. Patient completes activity by themselves 4 Supervision or touching assist (CGA). [place] provide cues , steadying assist 3 The helper provides less than half the effort to complete the activity 2 The helper provides more than half the effort to complete the activity 1 Dependent. The helper does all the effort to complete an activity 7 Patient refused to complete or attempt activity 9 The patient did not perform the activity before the current illness or injury 88 Not attempted due to Medical conditions or safety concerns Transfers (B, C, W/C) (FIM): 4 Scootin Rollin Supine to/from Sit: 4 Bed to/from Chair: 4 sliding board transfer min assist, sit to supine min assist Weight Bearing Right Lower Extremity: Right Weight Bearing/Tolerated Left Lower Extremity: Left Full Weight Bearing Exercises Supine Ex: Ankle pumps, Quad Set, Glut sets, Heel Slides, Short Arc Quads, Straight leg raise, Hip abd/add Supine Reps: 20 Treatments transfer and bed mobility, LE exercise BLE Assessment Current Status: Fair Progress improved sit to supine PT Short Term Goals Short Term Goals Time Frame: Feb 07, 2019 Transfers (B,C,W/C) (FIM): 4 Gait (FIM): 2 Distance (FIM): 1=up to 49 ft Gait Assistive Device: FWW Wheelchair (FIM): 6 Wheelchair distance (FIM): 3=150 ft Wheelchair Distance: 150' PT Alf Goals Certified Phlebotomy Technician Goals PT Certified Phlebotomy Technician Goals Time Frame: Feb 21, 2019 Transfers (B,C,W/C) (FIM): 5 Sit to Lying (QC): 6 Lying-Sitting on Side/Bed(QC): 6 Sit to Stand (QC): 6 Rollin Roll Left to Right (QC): 6 Chair/Swn-wt-Ftaai Xfer(QC): 5 Car Transfer (QC): 4 Does the Patient Walk: No and Walking Goal IS indicated Gait (FIM): 2 Gait distance (FIM): 1=up to 49 ft Distance: 20 ft Walk 10 feet (QC): 6 Walk 10ft-Uneven Surface(QC): 4 Walk 50ft with 2 Turns (QC): 88 Walk 150 ft (QC): 88 Gait Assistive Device: FWW Does the Pt use WC or Scooter?: Yes Wheelchair (FIM): 6 Wheelchair distance (FIM): 3=150 ft Wheel 50 feet with 2 turns (QC: 6 Stairs (FIM): 0 1 Step (curb) (QC): 9 4 Steps (QC): 9 12 Steps (QC): 9 Picking up an Object (QC): 88 PT Plan Problem List Problem List: Activity Tolerance, Functional Strength, Safety, Balance, Gait, Transfer, Bed Mobility, ROM Treatment/Plan Treatment Plan: Continue Plan of Care Treatment Plan: Bed Mobility, Education, Functional Activity [place], Functional Strength, Group Therapy, Gait, Safety, Therapeutic Exercise, Transfers Treatment Duration: Feb 21, 2019 Frequency: At least 5 of 7 days/Wk (IRF) Estimated Hrs Per Day: 1.5 hours per day Patient and/or Family Agrees t: Yes Safety Risks/Education Patient Education: Transfer Techniques, Correct Positioning, Safety Issues Teaching Recipient: Patient Teaching Methods: Demonstration, Discussion Response to Teaching: Reinforcement Needed Time/GCodes Time In: 1250 Time Out: 1320 Total Billed Treatment Time: 30 Total Billed Treatment 1 visit [facility] 10' EX 20' MICHELLE FUNES PT Jan 29, 2019 13:18
[2019-01-29] MEDS ORDERED: CATHETER FLUSH 10 ML SYR IV PRN (13:45)
[2019-01-29] MEDS: CATHETER FLUSH 10 ML SYR IV SCH ×2 (13:56→21:10)
--- NOTE | 2019-01-29 14:22 | Occupational Ther Daily Note ---
OT Current Status-Daily Note Subjective Pt. reports no pain. Does report discomfort in stance when pressure is applied to right knee. Pt. has had pain medication. Appearance Pt. in bed. Agrees to work with therapy. Mental Status/Objective Patient Orientation: Person, Place Therapy Code Descriptions/Definitions Functional [place] Measure: 0=Not Assessed/NA 4=Minimal Assistance 1=Total Assistance 5=Supervision or Setup 2=Maximal Assistance 6=Modified [place] 3=Moderate Assistance 7=Complete [place] ADL-Treatment Therapy Code Descriptions/Definitions Functional [place] Measure: 0=Not Assessed/NA 4=Minimal Assistance 1=Total Assistance 5=Supervision or Setup 2=Maximal Assistance 6=Modified [place] 3=Moderate Assistance 7=Complete [place] Therapy Quality Codes: 6 Independent with activity with or without an assistive device 5 Patient requires set up or clean up by helper. Patient completes activity by themselves 4 Supervision or touching assist (CGA). [place] provide cues , steadying assist 3 The helper provides less than half the effort to complete the activity 2 The helper provides more than half the effort to complete the activity 1 Dependent. The helper does all the effort to complete an activity 7 Patient refused to complete or attempt activity 9 The patient did not perform the activity before the current illness or injury 88 Not attempted due to Medical conditions or safety concerns Grooming (FIM): 5 (Set up at sink to brush teeth.) Oral Hygiene (QC): 5 Lower Body Dressing (FIM): 3 (Pt. able to don shorts while seated on side of bed using AE. Able to lean side to side with mod assist to ticket puller hips. Attempted to don shoes with shoe horn, but had difficulty and required assistance.) Lower Body Dressing (QC): 3 On/Off Footwear (QC): 2 Transfers (B, C, W/C) (FIM): 1 Pt. seen for partial co-treat with PT due to need of skilled assistance x 2. OT facilitated UE exercises as well as ADL skills while PT focused on LE positioning and transfers. Pt. donned LE clothing in room and then transferred via slide board to wheelchair with mod assist. Went to therapy gym via wheelchair. Stood in parallel bars multiple times with max x 2. Pt. encouraged to engage Lower back and keep core in upright position. Noted that pt. is unable to fully straighten knees in stance, and is unable to bring weight over his feet for good [place]. Daughter in room and reports that pt. was able to ambulate approximately 12 feet, 2 weeks before having surgery. Completed bilateral UE exercises x 2 lb. dumbbells x 10 reps each 2 exercises for increased UE strength. Noted that when pt. stands, he reports that he is putting all of his weight through his arms. After co-treatment in gym, OT completed further UE exercises with arm bike x 10 minutes at mod resistance for UE strengthening. Pt. tolerated this well. All needs met back in room. Declines showering or sponge bathing this date. Education OT Patient Education: Correct positioning, Exercise program, Modified ADL techniques, Progress toward Goal/Update tx plan, Purpose of tx/functional activities, Reviewed precautions, Rehab process, Transfer techniques, Use of adapted equipment Teaching Recipient: Patient Teaching Methods: Demonstration, Discussion Response to Teaching: Verbalize Understanding, Return Demonstration OT Short Term Goals Short Term Goals Time Frame: Jan 31, 2019 Eating(FIM): 5 Grooming(FIM): 5 Bathing(FIM): 4 Upper Body Dressing(FIM): 4 Lower Body Dressing(FIM): 4 Toileting(FIM): 3 Transfers (B,C,W/C) (FIM): 4 Toilet/Commode Transfer(FIM): 4 Shower Transfer(FIM): 4 1=Demonstrate adherence to instructed precautions during ADL tasks. 2=Patient will verbalize/demonstrate understanding of assistive devices/modifications for ADL. 3=Patient will improve strength/tolerance for activity to enable patient to perform ADL's. OT Skilled Nursing Goals Skilled Nursing Goals Time Frame: Feb 07, 2019 Eating (FIM): 6 Eating (QC): 6 Groomin Oral Hygiene (QC): 6 Bathing(FIM): 4 Shower/Bathe Self (QC): 4 Upper Body Dressing(FIM): 5 Upper Body Dressing (QC): 4 Lower Body Dressing(FIM): 5 Lower Body Dressing (QC): 4 On/Off Footwear (QC): 4 Toileting(FIM): 5 Toileting Hygiene (QC): 4 Transfers (B,C,W/C) (FIM): 5 Toilet/Commode Transfer(FIM): 5 Toilet/Commode Transfer (QC): 4 Shower Transfer(FIM): 4 Additional Goals: 1-Demonstrate ADL Tasks, 2-Verbalize Understanding, 3- ImproveStrength/[place] 1=Demonstrate adherence to instructed precautions during ADL tasks. 2=Patient will verbalize/demonstrate understanding of assistive devices/modifications for ADL. 3=Patient will improve strength/tolerance for activity to enable patient to perform ADL's. OT Education/Plan Problem List/Assessment Assessment: Decreased Activ Tolerance, Decreased UE Strength, Dependent Transfers, Impaired Bed Mobility, Impaired Funct Balance, Impaired I ADL's, Impaired Self-Care Skills, Restricted Funct UE ROM Discharge Recommendations Plan/Recommendations: Continue POC Therapy D/C Recommendations: Home w/ Family Support, Occupational Therapy Home Care, Scheduled Assistance Comment Further equipment needs to be determined. Treatment Plan/Plan of Care Treatment,Training & Education: Yes Patient would benefit from OT for education, treatment and training to promote independence in ADL's, mobility, safety and/or upper extremity function for ADL's. Plan of Care: ADL Retraining, Functional Mobility, Group Exercise/Act as Ind, UE Funct Exercise/Act Treatment Duration: Feb 07, 2019 Frequency: At least 5 of 7 days/Wk (IRF) Estimated Hrs Per Day: 1.5 hours per day Agreement: Yes Rehab Potential: Fair Time/GCodes Start Time: 10:00 Stop Time: 11:30 Total Time Billed (hr/min): 90 Billed Treatment Time 8644-9491 1, ADL x 15minutes, FA x 45minutes co-treat PT. Please see above note for designated roles. [id number] Ex x 15minutes, FA x 15minutes CIERRA MILLIGAN OT Jan 29, 2019 14:22
--- NOTE | 2019-01-29 14:44 | CONSULTATION REPORT ---
DATE OF SERVICE: 01/29/2019 ATTENDING PHYSICIAN: Dr. Juárez. SUMMARY: After reviewing the patient's record in the hospital and in the office, this is an 78-year-old white man known to me for many years with a history of right ureteral stone that was basketed back in 03/08/2019, history of BPH, prostatism and wet overactive bladder with nocturia and enuresis, was treated with Flomax 0.4 daily, Myrbetriq 50 mg in the morning and VESIcare 5 mg in the evening along with DDAVP 0.6 every day at bedtime. He was last seen in my office was 04/06/2018 and was doing very well. Previously, his bladder sonogram revealed only 42 mL residual at the office and a peak flow of 12 mL per second. Previous ultrasound many, many years ago reveals a size of prostate of 42 mL. When I did cystoscopy it showed enlargement of the lateral lobes of the prostate causing bladder neck obstruction and a median bar as well. 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 He has problem emptying his bladder needing intermittent catheterization with recovery about 500 mL each time. The patient apparently is on Flomax and adjusted Sanctura here in the hospital. His previous rectal exam shows flat, benign, nontender, elastic prostate. IMPRESSION: Urinary retention with benign prostatic hypertrophy, prostatism, and wet overactive bladder. PLAN: 1. Stop [place] and any anticholinergic. 2. Increase Flomax to b.i.d. 3. Stop any DDAVP. 4. Continue management with bladder scan and straight cath p.r.n. and manage accordingly. Job ID: [id number] DocumentID: [id number] Dictated Date: 01/29/2019 12:19:09 Scale Shooter Date: 01/29/2019 14:42:51 Dictated By: FANG MCMILLAN MD [facility]
--- NOTE | 2019-01-29 17:00 | NUR ---
SEE BLADDER SCAN INTERVENTION.
[2019-01-29 18:00] VITALS: BP 122/67
[2019-01-29] MEDS: PANTOPRAZOLE 40 MG (PROTONIX) TAB PO SCH (18:46)
--- NOTE | 2019-01-30 03:00 | NUR ---
Pt has not voided on this shift and denies any discomfort. Bladder scan shows 566cc. Pt straight cathed at this time using sterile technique. Pt rossana well and 700 cc brandon urine returned. Cont to monitor.
[2019-01-30] MEDS: MELATONIN 3 MG TABLET PO PRN (03:27)
[2019-01-30] MEDS: HYDROcodone/APAP 10 MG/325 MG (LORTAB) TAB PO PRN ×2 (03:27→07:56)
[2019-01-30 06:01] VITALS: BP 136/77
[2019-01-30] MEDS: ENOXAPARIN 40 MG/0.4 ML (LOVENOX) SYR SC SCH ×2 (06:02→17:13)
[2019-01-30] MEDS: LEVOTHYROXINE 50 MCG (LEVOTHROID) TAB PO SCH (06:02)
[2019-01-30] MEDS: CATHETER FLUSH 10 ML SYR IV SCH ×3 (06:03→21:47)
[2019-01-30] MEDS: LEVOTHYROXINE 100 MCG (LEVOTHROID) TAB PO SCH (06:03)
[2019-01-30] MEDS: PREGABALIN 150 MG (LYRICA) CAPSULE PO SCH ×2 (06:03→21:43)
[2019-01-30 07:12] LABS: BUN/CREATININE RATIO 25; CALCIUM 8.7 MG/DL (8.5-10.1); CARBON DIOXIDE 22 MMOL/L (21-32); CHLORIDE 104 MMOL/L (98-107); CREATININE SERUM 0.68 MG/DL (0.60-1.30); GFR ESTIMATED > 60; GLUCOSE 116 MG/DL (70-105); MAGNESIUM 1.3 MG/DL (1.6-2.4); POTASSIUM 3.8 MMOL/L (3.6-5.0); SODIUM 137 MMOL/L (135-145)
[2019-01-30] MEDS: ASPIRIN 81 MG CHEW (CHILDREN'S ASA) PO SCH (07:54)
[2019-01-30] MEDS: TAMSULOSIN 0.4 MG (FLOMAX) CAP PO SCH ×2 (07:54→21:43)
[2019-01-30] MEDS: POLYETHYLENE GLYCOL 17 GM (MIRALAX) PACK PO SCH ×2 (07:54→21:46)
[2019-01-30] MEDS: SENNA W/DOCUSATE (SENOKOT S) TABLET PO SCH ×2 (07:54→21:48)
[2019-01-30] MEDS: BISACODYL 10 MG SUPP (DULCOLAX) PR SCH ×2 (07:55→21:48)
[2019-01-30] MEDS: FUROSEMIDE 20 MG (LASIX) TAB PO SCH (07:56)
--- NOTE | 2019-01-30 08:43 | PM&R Progress Note ---
Subjective HPI/CC On Admission Date Seen by Provider: Jan 30, 2019 Time Seen by Provider: 08:40 CC: Debility following right total knee replacement uncomplicated by Dr. Byrnes POD # 1 HPI: This is a 78yoWM who is s/p uncomplicated right total knee replacement by Dr. Byrnes who is currently in need of intensive therapy in order to return home of which the last several years he went from using a can to a walker and then wheelchair bound for the past three years due to right knee pain and unable to ambulate. He does have all the assistive devices and wheelchair friendly house but he would like to improve him ambulation, improve the safety of his transfers and lessen the burden of care for his of 58 years. His PCP is Dr. Bach and Dr. Giraldo sees him after recently becoming established last week for a heart attack he had in 1995 and a cardiac murmur. (EST was normal). He is currently doing well and remains with a Anguiano catheter due to the inability to get out of bed so he would like to keep that in for a little while longer in order to prevent incontinence and other issues. He has not had a BM but is eating and drinking well. He is supposed to wear CPAP but is noncompliant and denies wearing oxygen at home. At this current time pt pain is well controlled at a 3 currently. He has a CPM machine on board and I did update Dr. Byrnes on the fact that we would admit him to inpatient rehab to return to prior level of functioning or a little better in order to regain independence in ADLs and ambulation at home. 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 The pt has no new complaints at this time. Subjective/Events-last exam Magnesium 1.3 cardiology will be notified. Had to have an in-and-out cath, removing 700 CCs at 3:00 this morning. Urinary complaints are acute on chronic. Had a low temp yesterday but none today. He has minimal expectations, just wanted to get the knee replacement done to decrease the pain so he can get in and out of his wheelchair at home. Oxygen is required at night and he was supposed to use a CPAP but he was unable to navigate that so he does not use one at home. Hgb stable at 9.4. Check meds and labs Conferred with RN Reviewed therapy notes Appreciate cardiology and Urology consultation Review of Systems General: Fatigue Genitourinary: Incontinence, Retention Musculoskeletal: leg pain Objective Exam Vital Signs Vital Signs Date Time Temp Pulse Resp B/P (MAP) Pulse Ox O2 Delivery O2 Flow Rate FiO2 01/30/19 18:01 98.4 96 20 124/75 (91) 95 Room Air Capillary Refill : General Appearance: No Apparent Distress, WD/WN, Chronically ill HEENT: PERRL/EOMI, Normal ENT Inspection, Pharynx Normal Neck: Full Range of Motion, Normal Inspection, Non Tender, Supple Respiratory: Chest Non Tender, Lungs Clear, No Accessory Muscle Use, No Respiratory Distress, Decreased Breath Sounds Cardiovascular: Regular Rate, Rhythm, Systolic Murmur, Other (Systolic ejection murmor, 3/6 with radiation to carotids) Gastrointestinal: Normal Bowel Sounds, No Organomegaly, No Pulsatile Mass, Non Tender, Soft Rectal: Deferred Back: Normal Inspection, No CVA Tenderness Extremity: Normal Capillary Refill, Normal Inspection, Normal Range of Motion (except right leg), Non Tender, No Calf Tenderness, Pedal Edema Neurologic/Psychiatric: Alert, Oriented x3, No Motor/Sensory Deficits, Normal Mood/Affect, 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 FIM Transfers Therapy Code Descriptions/Definitions Functional [place] Measure: 0=Not Assessed/NA 4=Minimal Assistance 1=Total Assistance 5=Supervision or Setup 2=Maximal Assistance 6=Modified [place] 3=Moderate Assistance 7=Complete [place] Therapy Quality Codes: 6 Independent with activity with or without an assistive device 5 Patient requires set up or clean up by helper. Patient completes activity by themselves 4 Supervision or touching assist (CGA). [place] provide cues , steadying assist 3 The helper provides less than half the effort to complete the activity 2 The helper provides more than half the effort to complete the activity 1 Dependent. The helper does all the effort to complete an activity 7 Patient refused to complete or attempt activity 9 The patient did not perform the activity before the current illness or injury 88 Not attempted due to Medical conditions or safety concerns Transfers (B, C, W/C) (FIM): 1 Scootin Rollin Roll Left to Right (QC): 3 Supine to/from Sit: 4 Sit to/from Stand: 1 Sit to Lying (QC): 2 (max assist to get legs into bed and for trunk control) Sit to Stand (QC): 1 Chair/[id number]-[id number] Xfer(QC): 1 Bed to/from Chair: 4 Car Transfer (QC): 88 (unsafe to attempt with sit to stand lift) Gait Training Does the Patient Walk?: No and Walking Goal IS indicated Gait (FIM): 0 (pt unable to come to a full stand to attempt ambulation; requires a mech sit to stand lift to stand up) Distance (FIM): 0=does not occure Walk 10 feet (QC): 88 Walk 50 ft with 2 Turns(QC): 88 Walk 150 ft (QC): 9 Walking 10ft/uneven surface-QC: 88 Gait Assistive Device: FWW Wheelchair Training Does the Pt Use a Wheelchair?: Yes Wheelchair (FIM): 5 Wheelchair Distance: 1=up to 49 ft Distance: 150' Wheelchair Level of Assist: 5 Wheel 50 ft with 2 turns (QC): 3 Wheel 150 ft (QC): 2 Type of Wheelchair: Manual Stair Training Stairs (FIM): 0 1 Step (curb) (QC): 88 4 Steps (QC): 88 12 Steps (QC): 88 Balance Picking up an Object (QC): 88 Mental Status/Objective Comprehension: 7 Expression: 7 Social Interaction: 7 Problem Solvin Memory: 7 ADL-Treatment Groomin (Set up at sink to brush teeth.) Oral Hygiene (QC): 5 Bathin Shower/Bathe Self (QC): 4 Upper Extremity Dressin Upper Body Dressing (QC): 5 Lower Extremity Dressin (Pt. able to don shorts while seated on side of bed using AE. Able to lean side to side with mod assist to bleach boiler puller hips. Attempted to don shoes with shoe horn, but had difficulty and required assistance.) Lower Body Dressing (QC): 3 On/Off Footwear (QC): 2 Shower: 1 Assessment/Plan Assessment and Plan Assess & Plan/Chief Complaint A/P: IRF protocols BM regimen to be maintained Pain control Lovenox Consult Dr Giraldo is appreciated Monitor hypotension Home meds In/Out cath for retention still so consulting Dr Simran JEFFERSON on commode to help with BM Incision looks good Slept pretty well Lasix every 48 hours for edema along with wide YULI wraps (1) Status post total right knee replacement Status: Acute (2) Primary osteoarthritis of right knee Status: Chronic (3) Essential hypertension Status: Chronic (4) Constipation Status: Chronic Qualifiers: Constipation type: slow transit constipation Qualified Codes: K59.01 - Slow transit constipation (5) CAD (coronary artery disease) Status: Chronic Qualifiers: Coronary Disease-Associated Artery/Lesion type: [place] artery [place] vs. transplanted heart: [place] heart Associated angina: without angina Qualified Codes: I25.10 - Atherosclerotic heart disease of [place] coronary artery without angina pectoris (6) Hypothyroidism Status: Chronic Qualifiers: Hypothyroidism type: acquired Qualified Codes: E03.9 - Hypothyroidism, unspecified (7) Type II diabetes mellitus Status: Chronic Qualifiers: Diabetes mellitus prison insulin use: without predatory animal exterminator use Diabetes mellitus complication status: with circulatory complication Diabetes mellitus complication detail: with other circulatory complications Qualified Codes: E11.59 - Type 2 diabetes mellitus with other circulatory complications (8) LILIAN (obstructive sleep apnea) Status: Chronic (9) Systolic murmur Status: Chronic (10) GERD without esophagitis Status: Chronic (11) Postoperative anemia Status: Acute (12) BPH (benign prostatic hyperplasia) Status: Chronic Qualifiers: Lower urinary tract symptom presence: unspecified whether lower urinary tract symptoms present Qualified Codes: N40.0 - Benign prostatic hyperplasia without lower urinary tract symptoms (13) Anguiano catheter in place Status: Acute (14) History of coronary artery stent placement Status: Chronic DM BERUMEN DO Jan 30, 2019 08:43
--- NOTE | 2019-01-30 09:55 | Progress Note - Urology ---
Progress Note-Urology Progress Notes/Assess & Plan Progress/Assessment & Plan VOIDING ON OWN BUT STILL NEEDING STRAIGHT CATH. CONTINUE SAME Final Diagnosis URINE RETENTION FANG MCMILLAN MD Jan 30, 2019 09:55
--- NOTE | 2019-01-30 10:58 | Physical Therapy Daily Note ---
PT Daily Note-Current Subjective Patient in shower pre tx, agrees to PT, has already started with OT, will be co- treating with OT for part of treatment this morning due to poor patient mobility, strength, endurance, balance, ROM, the need to coordinate UE and LE during activity. Appearance Patient in WC at bedside post tx with nurse call, phone, tray, all needs met. Mental Status Patient Orientation: Normal For Age Transfers Therapy Code Descriptions/Definitions Functional [place] Measure: 0=Not Assessed/NA 4=Minimal Assistance 1=Total Assistance 5=Supervision or Setup 2=Maximal Assistance 6=Modified [place] 3=Moderate Assistance 7=Complete [place] Therapy Quality Codes: 6 Independent with activity with or without an assistive device 5 Patient requires set up or clean up by helper. Patient completes activity by themselves 4 Supervision or touching assist (CGA). [place] provide cues , steadying assist 3 The helper provides less than half the effort to complete the activity 2 The helper provides more than half the effort to complete the activity 1 Dependent. The helper does all the effort to complete an activity 7 Patient refused to complete or attempt activity 9 The patient did not perform the activity before the current illness or injury 88 Not attempted due to Medical conditions or safety concerns Transfers (B, C, W/C) (FIM): 1 Sit to/from Stand: 2 Bed to/from Chair: 1 standing machine for transfers, can table machine operator parallel bars x3 with max assist. Patient bears little weight on his legs due to weakness. Patient uses the standing machine to go from shower chair to stand for dressing and then to WC. Weight Bearing Right Lower Extremity: Right Weight Bearing/Tolerated Left Lower Extremity: Left Full Weight Bearing Exercises Seated Therapy Exercises: Ankle pumps, Long arc quads, Hip flexion Seated Reps: 20 manual LLE stretching of knee in flexion and extension Treatments transfers, standing, LE exercise and stretching. Put selam wrap on legs. Co- treated with OT for 30 min. During this time PT worked on selam wrapping, standing, transfers, assist with dressing, OT worked on shower, dressing, positioning. Assessment Current Status: Poor Progress no change in mobility PT Short Term Goals Short Term Goals Time Frame: Feb 07, 2019 Transfers (B,C,W/C) (FIM): 4 Gait (FIM): 2 Distance (FIM): 1=up to 49 ft Gait Assistive Device: FWW Wheelchair (FIM): 6 Wheelchair distance (FIM): 3=150 ft Wheelchair Distance: 150' PT Mcc Goals Housekeeping Supervisor Goals PT Housekeeping Supervisor Goals Time Frame: Feb 21, 2019 Transfers (B,C,W/C) (FIM): 5 Sit to Lying (QC): 6 Lying-Sitting on Side/Bed(QC): 6 Sit to Stand (QC): 6 Rollin Roll Left to Right (QC): 6 Chair/Dbx-rj-Deefw Xfer(QC): 5 Car Transfer (QC): 4 Does the Patient Walk: No and Walking Goal IS indicated Gait (FIM): 2 Gait distance (FIM): 1=up to 49 ft Distance: 20 ft Walk 10 feet (QC): 6 Walk 10ft-Uneven Surface(QC): 4 Walk 50ft with 2 Turns (QC): 88 Walk 150 ft (QC): 88 Gait Assistive Device: FWW Does the Pt use WC or Scooter?: Yes Wheelchair (FIM): 6 Wheelchair distance (FIM): 3=150 ft Wheel 50 feet with 2 turns (QC: 6 Stairs (FIM): 0 1 Step (curb) (QC): 9 4 Steps (QC): 9 12 Steps (QC): 9 Picking up an Object (QC): 88 PT Plan Problem List Problem List: Activity Tolerance, Functional Strength, Safety, Balance, Gait, Transfer, Bed Mobility, ROM Treatment/Plan Treatment Plan: Continue Plan of Care Treatment Plan: Bed Mobility, Education, Functional Activity [place], Functional Strength, Group Therapy, Gait, Safety, Therapeutic Exercise, Transfers Treatment Duration: Feb 21, 2019 Frequency: At least 5 of 7 days/Wk (IRF) Estimated Hrs Per Day: 1.5 hours per day Patient and/or Family Agrees t: Yes Safety Risks/Education Patient Education: Transfer Techniques, Correct Positioning, Safety Issues Teaching Recipient: Patient Teaching Methods: Demonstration, Discussion Response to Teaching: Reinforcement Needed Time/GCodes Time In: 1000 Time Out: 1100 Total Billed Treatment Time: 60 Total Billed Treatment 1 visit EX 30' FA 30' MICHELLE FUNES PT Jan 30, 2019 10:58
[2019-01-30] MEDS: MAGNESIUM 1 GM/100 ML IVPB 100 ML IV SCH ×2 (11:19→12:19)
--- NOTE | 2019-01-30 13:11 | Occupational Ther Daily Note ---
OT Current Status-Daily Note Subjective No pain reported. Appearance Pt. up in chair. Agrees to shower. Mental Status/Objective Patient Orientation: Person, Place Therapy Code Descriptions/Definitions Functional [place] Measure: 0=Not Assessed/NA 4=Minimal Assistance 1=Total Assistance 5=Supervision or Setup 2=Maximal Assistance 6=Modified [place] 3=Moderate Assistance 7=Complete [place] Attachments: IV ADL-Treatment Therapy Code Descriptions/Definitions Functional [place] Measure: 0=Not Assessed/NA 4=Minimal Assistance 1=Total Assistance 5=Supervision or Setup 2=Maximal Assistance 6=Modified [place] 3=Moderate Assistance 7=Complete [place] Therapy Quality Codes: 6 Independent with activity with or without an assistive device 5 Patient requires set up or clean up by helper. Patient completes activity by themselves 4 Supervision or touching assist (CGA). [place] provide cues , steadying assist 3 The helper provides less than half the effort to complete the activity 2 The helper provides more than half the effort to complete the activity 1 Dependent. The helper does all the effort to complete an activity 7 Patient refused to complete or attempt activity 9 The patient did not perform the activity before the current illness or injury 88 Not attempted due to Medical conditions or safety concerns Grooming (FIM): 5 Oral Hygiene (QC): 4 Bathing (FIM): 3 (Pt. required assistance in shower chair with bathing feet and leatha area.) Shower/Bathe Self (QC): 3 Upper Body (FIM): 5 Upper Body Dressing (QC): 4 Lower Body Dressing (FIM): 2 Lower Body Dressing (QC): 2 On/Off Footwear (QC): 2 Toileting (FIM): 2 Toileting Hygiene (QC): 2 Transfers (B, C, W/C) (FIM): 1 Shower Transfer(FIM): 1 Other Treatment Pt. seen this date for partial co-treat with PT. Pt. agrees to shower. OT assisted pt. to shower chair via sit-stand lift. While in shower, required ass ist to wash bilateral feet and leatha area. After shower, PT came into room to assist with positioning and mobility while OT assists with dressing. Pt. unable to don LE clothing with AE while in shower chair. OT does this for him and pt. is transferred to wheelchair via sit-stand lift. Pt. attempted to self propel wheelchair to therapy gym but had difficulty due to weakness and IV. OT assisted him the rest of the way. PT took over at this point. Education OT Patient Education: Correct positioning, Modified ADL techniques, Progress toward Goal/Update tx plan, Purpose of tx/functional activities, Reviewed precautions, Rehab process, Transfer techniques, Use of adapted equipment Teaching Recipient: Patient Teaching Methods: Demonstration, Discussion Response to Teaching: Verbalize Understanding, Return Demonstration OT Short Term Goals Short Term Goals Time Frame: Jan 31, 2019 Eating(FIM): 5 Grooming(FIM): 5 Bathing(FIM): 4 Upper Body Dressing(FIM): 4 Lower Body Dressing(FIM): 4 Toileting(FIM): 3 Transfers (B,C,W/C) (FIM): 4 Toilet/Commode Transfer(FIM): 4 Shower Transfer(FIM): 4 1=Demonstrate adherence to instructed precautions during ADL tasks. 2=Patient will verbalize/demonstrate understanding of assistive devices/modifications for ADL. 3=Patient will improve strength/tolerance for activity to enable patient to perform ADL's. OT Pilot Instructor Goals Pilot Instructor Goals Time Frame: Feb 07, 2019 Eating (FIM): 6 Eating (QC): 6 Groomin Oral Hygiene (QC): 6 Bathing(FIM): 4 Shower/Bathe Self (QC): 4 Upper Body Dressing(FIM): 5 Upper Body Dressing (QC): 4 Lower Body Dressing(FIM): 5 Lower Body Dressing (QC): 4 On/Off Footwear (QC): 4 Toileting(FIM): 5 Toileting Hygiene (QC): 4 Transfers (B,C,W/C) (FIM): 5 Toilet/Commode Transfer(FIM): 5 Toilet/Commode Transfer (QC): 4 Shower Transfer(FIM): 4 Additional Goals: 1-Demonstrate ADL Tasks, 2-Verbalize Understanding, 3-ImproveStrength/[place]enn 1=Demonstrate adherence to instructed precautions during ADL tasks. 2=Patient will verbalize/demonstrate understanding of assistive devices/modifications for ADL. 3=Patient will improve strength/tolerance for activity to enable patient to perform ADL's. OT Education/Plan Problem List/Assessment Assessment: Decreased Activ Tolerance, Decreased UE Strength, Dependent Transfers, Impaired Bed Mobility, Impaired Funct Balance, Impaired I ADL's, Impaired Self-Care Skills, Restricted Funct UE ROM Discharge Recommendations Plan/Recommendations: Continue POC Treatment Plan/Plan of Care Treatment,Training & Education: Yes Patient would benefit from OT for education, treatment and training to promote independence in ADL's, mobility, safety and/or upper extremity function for A DL's. Plan of Care: ADL Retraining, Functional Mobility, Group Exercise/Act as Ind, UE Funct Exercise/Act Treatment Duration: Feb 07, 2019 Frequency: At least 5 of 7 days/Wk (IRF) Estimated Hrs Per Day: 1.5 hours per day Agreement: Yes Rehab Potential: Fair Time/GCodes Start Time: 09:30 Stop Time: 10:30 Total Time Billed (hr/min): 60 Billed Treatment Time 1, ADL x 4 CIERRA MILLIGAN OT Jan 30, 2019 13:11
--- NOTE | 2019-01-30 13:16 | Occupational Ther Daily Note ---
OT Current Status-Daily Note Subjective No pain reported. Agrees to work with OT. Mental Status/Objective Therapy Code Descriptions/Definitions Functional [place] Measure: 0=Not Assessed/NA 4=Minimal Assistance 1=Total Assistance 5=Supervision or Setup 2=Maximal Assistance 6=Modified [place] 3=Moderate Assistance 7=Complete [place] ADL-Treatment Therapy Code Descriptions/Definitions Functional [place] Measure: 0=Not Assessed/NA 4=Minimal Assistance 1=Total Assistance 5=Supervision or Setup 2=Maximal Assistance 6=Modified [place] 3=Moderate Assistance 7=Complete [place] Therapy Quality Codes: 6 Independent with activity with or without an assistive device 5 Patient requires set up or clean up by helper. Patient completes activity by themselves 4 Supervision or touching assist (CGA). [place] provide cues , steadying assist 3 The helper provides less than half the effort to complete the activity 2 The helper provides more than half the effort to complete the activity 1 Dependent. The helper does all the effort to complete an activity 7 Patient refused to complete or attempt activity 9 The patient did not perform the activity before the current illness or injury 88 Not attempted due to Medical conditions or safety concerns Transfers (B, C, W/C) (FIM): 1 Daughter brought up electric wheelchair while pt. in manual chair. Transferred pt. via sit-stand lift with dependent assist from manual chair to electric chair. Pt. positioned self to comfort level and required assistance to put right LE onto foot plate. Pt. able to take self in electric power chair to ther [employer] gym. Tolerated 10 minutes on arm bike to increase overall strength. Went back to room and OT looked at several wrist braces that daughter had bought, for better positioning during transfers. Educated pt. and daughter on how to wear braces. All needs met in room. Education OT Patient Education: Correct positioning, Exercise program, Modified ADL techniques, Progress toward Goal/Update tx plan, Purpose of tx/functional activities, Reviewed precautions, Rehab process, Transfer techniques, Use of adapted equipment Teaching Recipient: Patient Teaching Methods: Demonstration, Discussion Response to Teaching: Verbalize Understanding, Return Demonstration OT Short Term Goals Short Term Goals Time Frame: Jan 31, 2019 Eating(FIM): 5 Grooming(FIM): 5 Bathing(FIM): 4 Upper Body Dressing(FIM): 4 Lower Body Dressing(FIM): 4 Toileting(FIM): 3 Transfers (B,C,W/C) (FIM): 4 Toilet/Commode Transfer(FIM): 4 Shower Transfer(FIM): 4 1=Demonstrate adherence to instructed precautions during ADL tasks. 2=Patient will verbalize/demonstrate understanding of assistive devices/modifications for ADL. 3=Patient will improve strength/tolerance for activity to enable patient to perform ADL's. OT Uncrater Goals Uncrater Goals Time Frame: Feb 07, 2019 Eating (FIM): 6 Eating (QC): 6 Groomin Oral Hygiene (QC): 6 Bathing(FIM): 4 Shower/Bathe Self (QC): 4 Upper Body Dressing(FIM): 5 Upper Body Dressing (QC): 4 Lower Body Dressing(FIM): 5 Lower Body Dressing (QC): 4 On/Off Footwear (QC): 4 Toileting(FIM): 5 Toileting Hygiene (QC): 4 Transfers (B,C,W/C) (FIM): 5 Toilet/Commode Transfer(FIM): 5 Toilet/Commode Transfer (QC): 4 Shower Transfer(FIM): 4 Additional Goals: 1-Demonstrate ADL Tasks, 2-Verbalize Understanding, 3- ImproveStrength/[place] 1=Demonstrate adherence to instructed precautions during ADL tasks. 2=Patient will verbalize/demonstrate understanding of assistive devices/modifications for ADL. 3=Patient will improve strength/tolerance for activity to enable patient to perform ADL's. OT Education/Plan Problem List/Assessment Assessment: Decreased Activ Tolerance, Decreased UE Strength, Dependent T ransfers, Impaired Bed Mobility, Impaired Funct Balance, Impaired I ADL's, Impaired Self-Care Skills Discharge Recommendations Plan/Recommendations: Continue POC Treatment Plan/Plan of Care Treatment,Training & Education: Yes Patient would benefit from OT for education, treatment and training to promote independence in ADL's, mobility, safety and/or upper extremity function for ADL's. Plan of Care: ADL Retraining, Functional Mobility, Group Exercise/Act as Ind, UE Funct Exercise/Act Treatment Duration: Feb 07, 2019 Frequency: At least 5 of 7 days/Wk (IRF) Estimated Hrs Per Day: 1.5 hours per day Agreement: Yes Rehab Potential: Fair Time/GCodes Start Time: 11:45 Stop Time: 12:15 Total Time Billed (hr/min): 30 Billed Treatment Time 1, Ex x 15minutes, FA x 15minutes CIERRA MILLIGAN OT Jan 30, 2019 13:16
--- NOTE | 2019-01-30 13:26 | Physical Therapy Daily Note ---
PT Daily Note-Current Subjective Patient in scooter at bedside pre tx (his daughter brought it to him today), agrees to PT, no complaints of pain at rest. Appearance Patient in scooter at bedside post tx, has nurse call, phone,tray, all needs met. Mental Status Patient Orientation: Person, Place, Situation Attachments: IV Transfers Therapy Code Descriptions/Definitions Functional [place] Measure: 0=Not Assessed/NA 4=Minimal Assistance 1=Total Assistance 5=Supervision or Setup 2=Maximal Assistance 6=Modified [place] 3=Moderate Assistance 7=Complete [place] Therapy Quality Codes: 6 Independent with activity with or without an assistive device 5 Patient requires set up or clean up by helper. Patient completes activity by themselves 4 Supervision or touching assist (CGA). [place] provide cues , steadying assist 3 The helper provides less than half the effort to complete the activity 2 The helper provides more than half the effort to complete the activity 1 Dependent. The helper does all the effort to complete an activity 7 Patient refused to complete or attempt activity 9 The patient did not perform the activity before the current illness or injury 88 Not attempted due to Medical conditions or safety concerns Sit to/from Stand: 3 Patient stood in the parallel bars x3 with mod assist, stood for about 30 sec each time Weight Bearing Right Lower Extremity: Right Weight Bearing/Tolerated Left Lower Extremity: Left Full Weight Bearing Exercises Seated Therapy Exercises: Ankle pumps, Long arc quads, Hip flexion Seated Reps: 20 left knee manual stretching in flexion and extension Treatments stretching, LE exercise, standing Assessment Current Status: Fair Progress slight improvement in standing PT Short Term Goals Short Term Goals Time Frame: Feb 07, 2019 Transfers (B,C,W/C) (FIM): 4 Gait (FIM): 2 Distance (FIM): 1=up to 49 ft Gait Assistive Device: FWW Wheelchair (FIM): 6 Wheelchair distance (FIM): 3=150 ft Wheelchair Distance: 150' PT Title Agent Goals Title Agent Goals PT Snf Goals Time Frame: Feb 21, 2019 Transfers (B,C,W/C) (FIM): 5 Sit to Lying (QC): 6 Lying-Sitting on Side/Bed(QC): 6 Sit to Stand (QC): 6 Rollin Roll Left to Right (QC): 6 Chair/Xlk-lw-Xddqm Xfer(QC): 5 Car Transfer (QC): 4 Does the Patient Walk: No and Walking Goal IS indicated Gait (FIM): 2 Gait distance (FIM): 1=up to 49 ft Distance: 20 ft Walk 10 feet (QC): 6 Walk 10ft-Uneven Surface(QC): 4 Walk 50ft with 2 Turns (QC): 88 Walk 150 ft (QC): 88 Gait Assistive Device: FWW Does the Pt use WC or Scooter?: Yes Wheelchair (FIM): 6 Wheelchair distance (FIM): 3=150 ft Wheel 50 feet with 2 turns (QC: 6 Stairs (FIM): 0 1 Step (curb) (QC): 9 4 Steps (QC): 9 12 Steps (QC): 9 Picking up an Object (QC): 88 PT Plan Problem List Problem List: Activity Tolerance, Functional Strength, Safety, Balance, Gait, Transfer, Bed Mobility, ROM Treatment/Plan Treatment Plan: Continue Plan of Care Treatment Plan: Bed Mobility, Education, Functional Activity Glenn, Functional Strength, Group Therapy, Gait, Safety, Therapeutic Exercise, Transfers Treatment Duration: Feb 21, 2019 Frequency: At least 5 of 7 days/Wk (IRF) Estimated Hrs Per Day: 1.5 hours per day Patient and/or Family Agrees t: Yes Safety Risks/Education Patient Education: Correct Positioning, W/C Management, Safety Issues Teaching Recipient: Patient Teaching Methods: Demonstration, Discussion Response to Teaching: Reinforcement Needed Time/GCodes Time In: 1255 Time Out: 1325 Total Billed Treatment Time: 30 Total Billed Treatment 1 visit FA 10' EX 20' MICHELLE FUNES PT Jan 30, 2019 13:26
[2019-01-30] MEDS: PANTOPRAZOLE 40 MG (PROTONIX) TAB PO SCH (17:13)
[2019-01-30 18:01] VITALS: BP 124/75
--- NOTE | 2019-01-30 19:10 | Progress Note - Cardiology ---
Cardiology SOAP Progress Note Subjective: No cp or palp or syncope Feels leg swelling is improving Objective: I&O/Vital Signs 01/30/19 01/30/19 09:22 18:01 Temp 98.4 Pulse 96 Resp 20 B/P (MAP) 124/75 (91) Pulse Ox 95 O2 Delivery Room Air Room Air 01/30/19 00:00 Intake Total 880 ml Output Total 1250 ml Balance -370 ml Weight (Pounds): 283 Weight (Ounces): 3.0 Weight (Calculated Kilograms): 128.862578 Constitutional: AAO x 3, well-developed, well-nourished Respiratory: lungs clear to percussion, lungs clear to auscultation Cardiovascular: regular rate-rhythm, S1 and S2, systolic murmur Gastrointestional: audible bowel sounds Extremities: swelling (moderate, bilateral leg swelling; R>L); No clubbing, No cyanosis Neurologic/Psychiatric: oriented x 3, grossly intact Skin: No rash on exposed areas, No ulcerations on exposed areas; other (S/P right knee replacement - dressing in place D&I) Results/Procedures: Labs Laboratory Tests 01/30/19 06:40: Sodium Level 137, Potassium Level 3.8, Chloride Level 104, Carbon Dioxide Level 22, Anion Gap 11, Blood Urea Nitrogen 17, Creatinine 0.68, Estimat Glomerular Filtration Rate > 60, BUN/Creatinine Ratio 25, Glucose Level 116H, Calcium Level 8.7, Magnesium Level 1.3L Laboratory Tests 01/29/19 04:50 01/29/19 04:56 01/30/19 06:40 A/P: Assessment: Relative hypotension, now resolved S/p right TKR on 01-23-[address] Byrnes Severe aortic stenosis. Echocardiogram of 01-19-19 showed concentric hypertrophy. LVEF 70-75%. LA mod dilated. Severe Ao stenosis, mean gradient 53 mmHg, valve area 1.1 sq sm. RVSP 20 mmHg. Mild MR. H/o CAD, [place] [address], details unknown MPI of January 19, 2019 showed no evidence of any significant myocardial ischemia or infarction. LVEF 91% Bilateral leg swelling, likely due to venous insufficiency Elec abn due to diuretics Quit smoking in 1995 DJD H/o hyperlipidemia - statin tx - followed by his PCP LILIAN, non-compliant with CPAP Mild COPD on PFTs of Mar 2019 Elevate liver enzymes of undetermined etiology - medical services managing Plan: * Replenish lytes * Monitor labs DONN THEODORE MD FACP FAC CCDS Jan 30, 2019 19:09
[2019-01-31] MEDS: MELATONIN 3 MG TABLET PO PRN ×2 (02:53→21:50)
[2019-01-31] MEDS: HYDROcodone/APAP 10 MG/325 MG (LORTAB) TAB PO PRN (02:53)
[2019-01-31] MEDS: ENOXAPARIN 40 MG/0.4 ML (LOVENOX) SYR SC SCH ×2 (05:38→16:38)
[2019-01-31] MEDS: LEVOTHYROXINE 100 MCG (LEVOTHROID) TAB PO SCH (05:38)
[2019-01-31] MEDS: PREGABALIN 150 MG (LYRICA) CAPSULE PO SCH ×2 (05:38→20:33)
[2019-01-31] MEDS: LEVOTHYROXINE 50 MCG (LEVOTHROID) TAB PO SCH (05:38)
[2019-01-31] MEDS: CATHETER FLUSH 10 ML SYR IV SCH ×3 (05:39→20:34)
[2019-01-31 06:00] VITALS: BP 121/67
[2019-01-31] MEDS: ASPIRIN 81 MG CHEW (CHILDREN'S ASA) PO SCH (08:25)
[2019-01-31] MEDS: FUROSEMIDE 20 MG (LASIX) TAB PO SCH (08:25)
[2019-01-31] MEDS: SENNA W/DOCUSATE (SENOKOT S) TABLET PO SCH ×2 (08:25→20:33)
[2019-01-31] MEDS: TAMSULOSIN 0.4 MG (FLOMAX) CAP PO SCH ×2 (08:25→20:33)
[2019-01-31] MEDS: BISACODYL 10 MG SUPP (DULCOLAX) PR SCH ×2 (08:26→19:34)
--- NOTE | 2019-01-31 09:55 | PM&R Progress Note ---
Subjective HPI/CC On Admission Date Seen by Provider: Jan 31, 2019 Time Seen by Provider: 09:00 CC: Debility following right total knee replacement uncomplicated by Dr. Byrnes POD # 1 HPI: This is a 78yoWM who is s/p uncomplicated right total knee replacement by Dr. Byrnes who is currently in need of intensive therapy in order to return home of which the last several years he went from using a can to a walker and then wheelchair bound for the past three years due to right knee pain and unable to ambulate. He does have all the assistive devices and wheelchair friendly house but he would like to improve him ambulation, improve the safety of his transfers and lessen the burden of care for his of 58 years. His PCP is Dr. Bach and Dr. Giraldo sees him after recently becoming established last week for a heart attack he had in 1995 and a cardiac murmur. (EST was normal). He is currently doing well and remains with a Anguiano catheter due to the inability to get out of bed so he would like to keep that in for a little while longer in order to prevent incontinence and other issues. He has not had a BM but is eating and drinking well. He is supposed to wear CPAP but is noncompliant and de nies wearing oxygen at home. At this current time pt pain is well controlled at a 3 currently. He has a CPM machine on board and I did update Dr. Byrnes on the fact that we would admit him to inpatient rehab to return to prior level of functioning or a little better in order to regain independence in ADLs and ambulation at home. 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 The pt has no new complaints at this time. Subjective/Events-last exam Wore his CPM all night. No catheter was required yesterday but has some incontinence. Electric scooter was brought from home and working better for him. Magnesium at 1.3 had 2 bags yesterday supplemented IV. Bowel movement on 01/28, declined everything except MiraLax. Legs are much improved with wide yuli wraps. Maybe an anti-inflammatory may be an option for arthritis. PT reports max assist and unsure how much more will be recovered at time of discharge. Check meds and labs Conferred with RN Reviewed therapy notes Appreciate cardiology and Urology consultation Review of Systems General: Fatigue Genitourinary: Incontinence, Retention Musculoskeletal: leg pain Objective Exam Vital Signs Vital Signs Date Time Temp Pulse Resp B/P (MAP) Pulse Ox O2 Delivery O2 Flow Rate FiO2 01/31/19 20:00 Room Air 01/31/19 18:00 98.8 79 18 141/77 (98) 97 Capillary Refill : General Appearance: No Apparent Distress, WD/WN, Chronically ill HEENT: PERRL/EOMI, Normal ENT Inspection, Pharynx Normal Neck: Full Range of Motion, Normal Inspection, Non Tender, Supple Respiratory: Chest Non Tender, Lungs Clear, No Accessory Muscle Use, No Respiratory Distress, Decreased Breath Sounds Cardiovascular: Regular Rate, Rhythm, Systolic Murmur, Other (Systolic ejection murmor, 3/6 with radiation to carotids) Gastrointestinal: Normal Bowel Sounds, No Organomegaly, No Pulsatile Mass, Non Tender, Soft Rectal: Deferred Back: Normal Inspection, No CVA Tenderness Extremity: Normal Capillary Refill, Normal Inspection, Normal Range of Motion (except right leg), Non Tender, No Calf Tenderness, Pedal Edema Neurologic/Psychiatric: Alert, Oriented x3, No Motor/Sensory Deficits, Normal Mood/Affect, 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 FIM Transfers Therapy Code Descriptions/Definitions Functional [place] Measure: 0=Not Assessed/NA 4=Minimal Assistance 1=Total Assistance 5=Supervision or Setup 2=Maximal Assistance 6=Modified [place] 3=Moderate Assistance 7=Complete [place] Therapy Quality Codes: 6 Independent with activity with or without an assistive device 5 Patient requires set up or clean up by helper. Patient completes activity by themselves 4 Supervision or touching assist (CGA). [place] provide cues , steadying assist 3 The helper provides less than half the effort to complete the activity 2 The helper provides more than half the effort to complete the activity 1 Dependent. The helper does all the effort to complete an activity 7 Patient refused to complete or attempt activity 9 The patient did not perform the activity before the current illness or injury 88 Not attempted due to Medical conditions or safety concerns Transfers (B, C, W/C) (FIM): 1 Scootin Rollin Roll Left to Right (QC): 3 Supine to/from Sit: 4 Sit to/from Stand: 3 Sit to Lying (QC): 2 (max assist to get legs into bed and for trunk control) Sit to Stand (QC): 1 Chair/Byx-pw-Ffzkd Xfer(QC): 1 Bed to/from Chair: 1 Car Transfer (QC): 88 (unsafe to attempt with sit to stand lift) Gait Training Does the Patient Walk?: No and Walking Goal IS indicated Gait (FIM): 0 (pt unable to come to a full stand to attempt ambulation; [facility] to stand lift to stand up) Distance (FIM): 0=does not occure Walk 10 feet (QC): 88 Walk 50 ft with 2 Turns(QC): 88 Walk 150 ft (QC): 9 Walking 10ft/uneven surface-QC: 88 Gait Assistive Device: FWW Wheelchair Training Does the Pt Use a Wheelchair?: Yes Wheelchair (FIM): 5 Wheelchair Distance: 1=up to 49 ft Distance: 150' Wheelchair Level of Assist: 5 Wheel 50 ft with 2 turns (QC): 3 Wheel 150 ft (QC): 2 Type of Wheelchair: Manual Stair Training Stairs (FIM): 0 1 Step (curb) (QC): 88 4 Steps (QC): 88 12 Steps (QC): 88 Balance Picking up an Object (QC): 88 Mental Status/Objective Comprehension: 7 Expression: 7 Social Interaction: 7 Problem Solvin Memory: 7 ADL-Treatment Groomin Oral Hygiene (QC): 4 Bathin (Pt. required assistance in shower chair with bathing feet and leatha area.) Shower/Bathe Self (QC): 3 Upper Extremity Dressin Upper Body Dressing (QC): 4 Lower Extremity Dressin Lower Body Dressing (QC): 2 On/Off Footwear (QC): 2 Toiletin Toileting Hygiene (QC): 2 Shower: 1 Assessment/Plan Assessment and Plan Assess & Plan/Chief Complaint A/P: IRF protocols BM regimen to be maintained Pain control Lovenox Consult Dr Giraldo is appreciated Monitor hypotension Home meds In/Out cath for retention still so consulting Dr Simran JEFFERSON on commode to help with BM Incision looks good Slept pretty well Lasix every 48 hours for edema along with wide YULI wraps Check UA for odorous urine (1) Status post total right knee replacement Status: Acute (2) Primary osteoarthritis of right knee Status: Chronic (3) Essential hypertension Status: Chronic (4) Constipation Status: Chronic Qualifiers: Constipation type: slow transit constipation Qualified Codes: K59.01 - Sl ow transit constipation (5) CAD (coronary artery disease) Status: Chronic Qualifiers: Coronary Disease-Associated Artery/Lesion type: [place] artery [place] vs. 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 use Diabetes mellitus complication status: with circulatory complication Diabetes mellitus complication detail: with other circulatory complications Qualified Codes: E11.59 - Type 2 diabetes mellitus with other circulatory complications (8) LILIAN (obstructive sleep apnea) Status: Chronic (9) Systolic murmur Status: Chronic (10) GERD without esophagitis Status: Chronic (11) Postoperative anemia Status: Acute (12) BPH (benign prostatic hyperplasia) Status: Chronic Qualifiers: Lower urinary tract symptom presence: unspecified whether lower urinary tract symptoms present Qualified Codes: N40.0 - Benign prostatic hyperplasia without lower urinary tract symptoms (13) Agnuiano catheter in place Status: Acute (14) History of coronary artery stent placement Status: Chronic DM BERUMEN DO Jan 31, 2019 09:54
[2019-01-31] MEDS: POLYETHYLENE GLYCOL 17 GM (MIRALAX) PACK PO SCH ×2 (10:10→20:34)
--- NOTE | 2019-01-31 12:18 | Physical Therapy Daily Note ---
PT Daily Note-Current Subjective Pt sitting in W/C in Therapy as pt finishes with OT upon arrival. Pt agrees to PT. Pain Location: No Pain Reported Mental Status Patient Orientation: Person, Place, Time, Situation Transfers Therapy Code Descriptions/Definitions Functional [place] Measure: 0=Not Assessed/NA 4=Minimal Assistance 1=Total Assistance 5=Supervision or Setup 2=Maximal Assistance 6=Modified [place] 3=Moderate Assistance 7=Complete [place] Therapy Quality Codes: 6 Independent with activity with or without an assistive device 5 Patient requires set up or clean up by helper. Patient completes activity by themselves 4 Supervision or touching assist (CGA). [place] provide cues , steadying assist 3 The helper provides less than half the effort to complete the activity 2 The helper provides more than half the effort to complete the activity 1 Dependent. The helper does all the effort to complete an activity 7 Patient refused to complete or attempt activity 9 The patient did not perform the activity before the current illness or injury 88 Not attempted due to Medical conditions or safety concerns Scootin Sit to/from Stand: 3 Sit to Stand (QC): 3 Weight Bearing Right Lower Extremity: Right Weight Bearing/Tolerated Left Lower Extremity: Left Full Weight Bearing Wheelchair Training Does the Pt Use a Wheelchair?: Yes Wheelchair (FIM): 6 Wheelchair Distance: 3=150 ft Distance: 150' Wheelchair Level of Assist: 6 Wheel 50 ft with 2 turns (QC): 6 Wheel 150 ft (QC): 6 Type of Wheelchair: Motorized Exercises Seated Therapy Exercises: Sit to stand (10 reps), Long arc quads, Hip flexion, Kicking activity, Hamstring Curls, Hip abd/add Seated Reps: 20 Treatments Pt practiced sit to stands at //bars before RB. Pt then completes Seated Ex in W/C. Pt then attempts sit to stands again after flexion & extension stretching. Pt wants to remain in W/C. Pt has all needs met, call light in hand. Assessment Current Status: Good Progress Pt tolerated tx well although still needing RB at times for fatigue. PT Short Term Goals Short Term Goals Time Frame: Feb 07, 2019 Transfers (B,C,W/C) (FIM): 4 Gait (FIM): 2 Distance (FIM): 1=up to 49 ft Gait Assistive Device: FWW Wheelchair (FIM): 6 Wheelchair distance (FIM): 3=150 ft Wheelchair Distance: 150' PT Commissioning Manager Goals Commissioning Manager Goals PT Retirement Goals Time Frame: Feb 21, 2019 Transfers (B,C,W/C) (FIM): 5 Sit to Lying (QC): 6 Lying-Sitting on Side/Bed(QC): 6 Sit to Stand (QC): 6 Rollin Roll Left to Right (QC): 6 Chair/Rgz-tb-Qvxgw Xfer(QC): 5 Car Transfer (QC): 4 Does the Patient Walk: No and Walking Goal IS indicated Gait (FIM): 2 Gait distance (FIM): 1=up to 49 ft Distance: 20 ft Walk 10 feet (QC): 6 Walk 10ft-Uneven Surface(QC): 4 Walk 50ft with 2 Turns (QC): 88 Walk 150 ft (QC): 88 Gait Assistive Device: FWW Does the Pt use WC or Scooter?: Yes Wheelchair (FIM): 6 Wheelchair distance (FIM): 3=150 ft Wheel 50 feet with 2 turns (QC: 6 Stairs (FIM): 0 1 Step (curb) (QC): 9 4 Steps (QC): 9 12 Steps (QC): 9 Picking up an Object (QC): 88 PT Plan Problem List Problem List: Activity Tolerance, Functional Strength, Safety, Balance, Gait, Transfer, Bed Mobility Treatment/Plan Treatment Plan: Continue Plan of Care Treatment Plan: Bed Mobility, Education, Functional Activity [place], Functional Strength, Group Therapy, Gait, Safety, Therapeutic Exercise, Transfers Treatment Duration: Feb 21, 2019 Frequency: At least 5 of 7 days/Wk (IRF) Estimated Hrs Per Day: 1.5 hours per day Patient and/or Family Agrees t: Yes Safety Risks/Education Patient Education: Transfer Techniques, Correct Positioning, Safety Issues Teaching Recipient: Patient Teaching Methods: Discussion Response to Teaching: Verbalize Understanding Time/GCodes Time In: 1000 Time Out: 1100 Total Billed Treatment Time: 60 Total Billed Treatment 1, FA x2 (30m) & EX x2 (30m) YENY VILLEDA HELPER MARBLE FINISHER Jan 31, 2019 12:18
--- NOTE | 2019-01-31 13:21 | Occupational Ther Daily Note ---
OT Current Status-Daily Note Subjective No pain reported. Appearance Pt. in bed. Agrees to work with therapy. Mental Status/Objective Patient Orientation: Person, Place Therapy Code Descriptions/Definitions Functional [place] Measure: 0=Not Assessed/NA 4=Minimal Assistance 1=Total Assistance 5=Supervision or Setup 2=Maximal Assistance 6=Modified [place] 3=Moderate Assistance 7=Complete [place] ADL-Treatment Therapy Code Descriptions/Definitions Functional [place] Measure: 0=Not Assessed/NA 4=Minimal Assistance 1=Total Assistance 5=Supervision or Setup 2=Maximal Assistance 6=Modified [place] 3=Moderate Assistance 7=Complete [place] Therapy Quality Codes: 6 Independent with activity with or without an assistive device 5 Patient requires set up or clean up by helper. Patient completes activity by themselves 4 Supervision or touching assist (CGA). [place] provide cues , steadying assist 3 The helper provides less than half the effort to complete the activity 2 The helper provides more than half the effort to complete the activity 1 Dependent. The helper does all the effort to complete an activity 7 Patient refused to complete or attempt activity 9 The patient did not perform the activity before the current illness or injury 88 Not attempted due to Medical conditions or safety concerns Upper Body (FIM): 5 Upper Body Dressing (QC): 5 Lower Body Dressing (FIM): 3 Lower Body Dressing (QC): 3 On/Off Footwear (QC): 2 Toileting (FIM): 2 Toileting Hygiene (QC): 2 Transfers (B, C, W/C) (FIM): 4 (Slide board transfers.) Toilet/Commode Transfer (FIM): 4 (With slide board) Toilet Transfer (QC): 4 (With slide board) Pt. in bed. Agrees to work with OT. Pt. transferred supine-sit with min assist. Practiced doffing/donning shorts at bed level, and then sitting, with min assist. Dependent for shoes. Donned clean shirt with Set up. Once sitting on side of bed, pt. and OT problem solved his set up at home. Pt. still has difficulty understanding how he will transfer without using his walker and standing, but then talks about getting a lift system built in his home. Talked about his bed at home, and his set up for his BSC and power chair. Pt. is able to transfer from bed to and from BSC with min assist, and to and from power chair using transfer board with min assist to set up and then assist to pull self over further into chair. Pt. drove power chair to therapy gym. Completed bilateral UE exercises x 3 exercises x 15 reps each with 3 lb. dumbbell in all planes. PT took over at this point in therapy gym. All needs met. Education OT Patient Education: Correct positioning, Exercise program, Modified ADL techniques, Progress toward Goal/Update tx plan, Purpose of tx/functional ac tivities, Reviewed precautions, Rehab process, Transfer techniques, Use of adapted equipment Teaching Recipient: Patient Teaching Methods: Demonstration, Discussion Response to Teaching: Verbalize Understanding, Return Demonstration OT Short Term Goals Short Term Goals Time Frame: Jan 31, 2019 Eating(FIM): 5 Grooming(FIM): 5 Bathing(FIM): 4 Upper Body Dressing(FIM): 4 Lower Body Dressing(FIM): 4 Toileting(FIM): 3 Transfers (B,C,W/C) (FIM): 4 Toilet/Commode Transfer(FIM): 4 Shower Transfer(FIM): 4 1=Demonstrate adherence to instructed precautions during ADL tasks. 2=Patient will verbalize/demonstrate understanding of assistive devices/modifications for ADL. 3=Patient will improve strength/tolerance for activity to enable patient to perform ADL's. OT [facility]ci Goals Executive Asst Goals Time Frame: Feb 07, 2019 Eating (FIM): 6 Eating (QC): 6 Groomin Oral Hygiene (QC): 6 Bathing(FIM): 4 Shower/Bathe Self (QC): 4 Upper Body Dressing(FIM): 5 Upper Body Dressing (QC): 4 Lower Body Dressing(FIM): 5 Lower Body Dressing (QC): 4 On/Off Footwear (QC): 4 Toileting(FIM): 5 Toileting Hygiene (QC): 4 Transfers (B,C,W/C) (FIM): 5 Toilet/Commode Transfer(FIM): 5 Toilet/Commode Transfer (QC): 4 Shower Transfer(FIM): 4 Additional Goals: 1-Demonstrate ADL Tasks, 2-Verbalize Understanding, 3-Improv eStrength/[place] 1=Demonstrate adherence to instructed precautions during ADL tasks. 2=Patient will verbalize/demonstrate understanding of assistive devices/modifications for ADL. 3=Patient will improve strength/tolerance for activity to enable patient to p erform ADL's. OT Education/Plan Problem List/Assessment Assessment: Decreased Activ Tolerance, Decreased UE Strength, Dependent Transfers, Impaired Bed Mobility, Impaired Funct Balance, Impaired I ADL's, Impaired Self-Care Skills Discharge Recommendations Plan/Recommendations: Continue POC Treatment Plan/Plan of Care Treatment,Training & Education: Yes Patient would benefit from OT for education, treatment and training to promote independence in ADL's, mobility, safety and/or upper extremity function for ADL's. Plan of Care: ADL Retraining, Functional Mobility, Group Exercise/Act as Ind, UE Funct Exercise/Act Treatment Duration: Feb 07, 2019 Frequency: At least 5 of 7 days/Wk (IRF) Estimated Hrs Per Day: 1.5 hours per day Agreement: Yes Rehab Potential: Fair Time/GCodes Start Time: 08:30 Stop Time: 10:00 Total Time Billed (hr/min): 90 Billed Treatment Time 1, ADL x 45minutes, FA x 45minutes CIERRA MILLIGAN OT Jan 31, 2019 13:21
--- NOTE | 2019-01-31 13:54 | Progress Note - Cardiology ---
Cardiology SOAP Progress Note Subjective: No new symptoms Leg swelling moderately better Exertional shortness of breath as before No cp Objective: I&O/Vital Signs 01/31/19 06:00 Temp 98.1 Pulse 88 Resp 20 B/P (MAP) 121/67 (85) Pulse Ox 93 O2 Delivery Room Air 01/31/19 00:00 Intake Total 1720 ml Output Total 950 ml Balance 770 ml Weight (Pounds): 283 Weight (Ounces): 3.0 Weight (Calculated Kilograms): 128.230111 Constitutional: AAO x 3, well-developed, well-nourished Respiratory: lungs clear to percussion, lungs clear to auscultation Cardiovascular: regular rate-rhythm, S1 and S2, systolic murmur Gastrointestional: audible bowel sounds Extremities: swelling (moderate, bilateral leg swelling; R>L); No clubbing, No cyanosis Neurologic/Psychiatric: oriented x 3, grossly intact Skin: No rash on exposed areas, No ulcerations on exposed areas; other (S/P right knee replacement - dressing in place D&I) A/P: Assessment: Relative hypotension, now resolved S/p right TKR on 01-23-[address] Byrnes Severe aortic stenosis. Echocardiogram of 01-19-19 showed concentric hypertrophy. LVEF 70-75%. LA mod dilated. Severe Ao stenosis, mean gradient 53 mmHg, valve area 1.1 sq sm. RVSP 20 mmHg. Mild MR. H/o CAD, s/p two cor stents in 1995 following MD, details unknown MPI of January 19, 2019 showed no evidence of any significant myocardial ischemia or infarction. LVEF 91% Bilateral leg swelling, likely due to venous insufficiency Elec abn due to diuretics Quit smoking in 1995 DJD H/o hyperlipidemia - statin tx - followed by his PCP LILIAN, non-compliant with CPAP Mild COPD on PFTs of Mar 2019 Elevate liver enzymes of undetermined etiology - medical services managing Plan: * Reduce diuretics to reduce risk of dehydration that can lead to hypotension in the setting of his aortic stenosis * Monitor labs DONN THEODORE MD FACP FAC CCDS Jan 31, 2019 13:54
--- NOTE | 2019-01-31 14:32 | Physical Therapy Daily Note ---
PT Daily Note-Current Subjective Pt laying Supine in bed upon arrival. Pt agrees to PT. Pain Location: No Pain Reported Mental Status Patient Orientation: Person, Place, Time, Situation Attachments: Other-See Comments (CPM) Transfers Therapy Code Descriptions/Definitions Functional [place] Measure: 0=Not Assessed/NA 4=Minimal Assistance 1=Total Assistance 5=Supervision or Setup 2=Maximal Assistance 6=Modified [place] 3=Moderate Assistance 7=Complete [place] Therapy Quality Codes: 6 Independent with activity with or without an assistive device 5 Patient requires set up or clean up by helper. Patient completes activity by themselves 4 Supervision or touching assist (CGA). [place] provide cues , steadying assist 3 The helper provides less than half the effort to complete the activity 2 The helper provides more than half the effort to complete the activity 1 Dependent. The helper does all the effort to complete an activity 7 Patient refused to complete or attempt activity 9 The patient did not perform the activity before the current illness or injury 88 Not attempted due to Medical conditions or safety concerns Weight Bearing Right Lower Extremity: Right Weight Bearing/Tolerated Left Lower Extremity: Left Full Weight Bearing Exercises Supine Ex: Ankle pumps, Quad Set, Glut sets, Heel Slides, Straight leg raise, Hip abd/add Supine Reps: 20 Treatments Pt completes Supine Ex in bed with a couple of short RB. Pt then inquires about increasing flexion of CPM. CRAP GAME BOX PERSON increased from 50-60 degrees and had pt try for comfort. Pt agreed to comfort and then taken off CPM for later completion. Pt resting Supine in bed with all needs met, call light next to pt. Assessment Current Status: Good Progress Pt tolerate tx well. PT Short Term Goals Short Term Goals Time Frame: Feb 07, 2019 Transfers (B,C,W/C) (FIM): 4 Gait (FIM): 2 Distance (FIM): 1=up to 49 ft Gait Assistive Device: FWW Wheelchair (FIM): 6 Wheelchair distance (FIM): 3=150 ft Wheelchair Distance: 150' PT Wirer Helper Goals Shelter Goals PT Shelter Goals Time Frame: Feb 21, 2019 Transfers (B,C,W/C) (FIM): 5 Sit to Lying (QC): 6 Lying-Sitting on Side/Bed(QC): 6 Sit to Stand (QC): 6 Rollin Roll Left to Right (QC): 6 Chair/Gin-ni-Nzhbj Xfer(QC): 5 Car Transfer (QC): 4 Does the Patient Walk: No and Walking Goal IS indicated Gait (FIM): 2 Gait distance (FIM): 1=up to 49 ft Distance: 20 ft Walk 10 feet (QC): 6 Walk 10ft-Uneven Surface(QC): 4 Walk 50ft with 2 Turns (QC): 88 Walk 150 ft (QC): 88 Gait Assistive Device: FWW Does the Pt use WC or Scooter?: Yes Wheelchair (FIM): 6 Wheelchair distance (FIM): 3=150 ft Wheel 50 feet with 2 turns (QC: 6 Stairs (FIM): 0 1 Step (curb) (QC): 9 4 Steps (QC): 9 12 Steps (QC): 9 Picking up an Object (QC): 88 PT Plan Problem List Problem List: Activity Tolerance, Functional Strength, Transfer, Bed Mobility Treatment/Plan Treatment Plan: Continue Plan of Care Treatment Plan: Bed Mobility, Education, Functional Activity Glenn, Functional Strength, Group Therapy, Gait, Safety, Therapeutic Exercise, Transfers Treatment Duration: Feb 21, 2019 Frequency: At least 5 of 7 days/Wk (IRF) Estimated Hrs Per Day: 1.5 hours per day Patient and/or Family Agrees t: Yes Safety Risks/Education Patient Education: Transfer Techniques, Correct Positioning, Safety Issues Teaching Recipient: Patient Teaching Methods: Discussion Response to Teaching: Verbalize Understanding Time/GCodes Time In: 1300 Time Out: 1330 Total Billed Treatment Time: 30 Total Billed Treatment 1, EX (20m) & FA (10m) YENY VILLEDA PTA Jan 31, 2019 14:32
[2019-01-31] MEDS: PANTOPRAZOLE 40 MG (PROTONIX) TAB PO SCH (16:37)
[2019-01-31 18:00] VITALS: BP 141/77
[2019-01-31 18:58] LABS: BILIRUBIN,URINE NEGATIVE (NEGATIVE); CLARITY,URINE CLEAR; COLOR,URINE YELLOW; GLUCOSE, URINE (UA) NEGATIVE (NEGATIVE); KETONES,URINE NEGATIVE (NEGATIVE); LEUKOCYTE ESTERASE ,URINE 2+ (NEGATIVE); NITRITE,URINE NEGATIVE (NEGATIVE); PH,URINE 5 (5-9); PROTEIN,URINE NEGATIVE (NEGATIVE); UROBILINOGEN,URINE NORMAL (NORMAL)
[2019-01-31] MEDS ORDERED: TRIM/SULFAMETH 160/800 (SEPTRA DS) TAB PO NR (19:00)
[2019-01-31 19:04] LABS: BACTERIA,URINE LARGE /HPF
[2019-02-01] MEDS: MELATONIN 3 MG TABLET PO PRN ×2 (00:35→21:44)
[2019-02-01] MEDS: CATHETER FLUSH 10 ML SYR IV SCH ×3 (05:32→22:33)
[2019-02-01] MEDS: LEVOTHYROXINE 50 MCG (LEVOTHROID) TAB PO SCH (05:49)
[2019-02-01] MEDS: LEVOTHYROXINE 100 MCG (LEVOTHROID) TAB PO SCH (05:49)
[2019-02-01] MEDS: PREGABALIN 150 MG (LYRICA) CAPSULE PO SCH ×2 (05:50→21:44)
[2019-02-01] MEDS: ENOXAPARIN 40 MG/0.4 ML (LOVENOX) SYR SC SCH ×2 (05:50→18:20)
[2019-02-01] MEDS: TRIM/SULFAMETH 160/800 (SEPTRA DS) TAB PO SCH ×2 (05:50→18:20)
[2019-02-01 06:22] VITALS: BP 130/72
[2019-02-01 06:44] LABS: BASOPHILS % (AUTO) 0 % (0-10); EOSINOPHILS # (AUTO) 0.2 10^3/uL (0.0-0.3); EOSINOPHILS % (AUTO) 2 % (0-10); HEMATOCRIT 32 % (40-54); HEMOGLOBIN 10.2 G/DL (13.3-17.7); LYMPHOCYTES % (AUTO) 11 % (12-44); MEAN CORPUSCULAR HEMOGLOBIN 28 PG (25-34); MEAN CORPUSCULAR HGB CONC 32 G/DL (32-36); MEAN CORPUSCULAR VOLUME 88 FL (80-99); MEAN PLATELET VOLUME 10.7 FL (7.4-10.4); MONOCYTES # (AUTO) 0.9 X 10^3 (0.0-1.0); MONOCYTES % (AUTO) 10 % (0-12); NEUTROPHILS # (AUTO) 7.1 X 10^3 (1.8-7.8); NEUTROPHILS % (AUTO) 77 % (42-75); PLATELET COUNT 348 10^3/uL (130-400); RED CELL DISTRIBUTION WIDTH 17.7 % (10.0-14.5); WHITE BLOOD COUNT 9.1 10^3/uL (4.3-11.0)
[2019-02-01 07:03] LABS: ALANINE AMINOTRANSFERASE 59 U/L (0-55); ALBUMIN 3.2 GM/DL (3.2-4.5); ALKALINE PHOSPHATASE 91 U/L (40-136); BILIRUBIN,TOTAL 0.8 MG/DL (0.1-1.0); BUN/CREATININE RATIO 20; CALCIUM 8.9 MG/DL (8.5-10.1); CARBON DIOXIDE 20 MMOL/L (21-32); CHLORIDE 106 MMOL/L (98-107); CREATININE SERUM 0.75 MG/DL (0.60-1.30); GFR ESTIMATED > 60; GLUCOSE 135 MG/DL (70-105); MAGNESIUM 1.5 MG/DL (1.6-2.4); POTASSIUM 3.8 MMOL/L (3.6-5.0); SODIUM 138 MMOL/L (135-145); TOTAL PROTEIN 6.3 GM/DL (6.4-8.2)
[2019-02-01] MEDS: SENNA W/DOCUSATE (SENOKOT S) TABLET PO SCH ×2 (07:59→21:44)
[2019-02-01] MEDS: TAMSULOSIN 0.4 MG (FLOMAX) CAP PO SCH ×2 (07:59→21:44)
[2019-02-01] MEDS: ASPIRIN 81 MG CHEW (CHILDREN'S ASA) PO SCH (07:59)
[2019-02-01] MEDS: HYDROcodone/APAP 10 MG/325 MG (LORTAB) TAB PO PRN ×2 (08:00→21:45)
[2019-02-01] MEDS: BISACODYL 10 MG SUPP (DULCOLAX) PR SCH ×2 (08:00→21:47)
[2019-02-01] MEDS: POLYETHYLENE GLYCOL 17 GM (MIRALAX) PACK PO SCH ×2 (08:00→21:43)
--- NOTE | 2019-02-01 09:04 | PM&R Progress Note ---
Subjective HPI/CC On Admission Date Seen by Provider: Feb 01, 2019 Time Seen by Provider: 08:30 CC: Debility following right total knee replacement uncomplicated by Dr. Byrnes POD # 1 HPI: This is a 78yoWM who is s/p uncomplicated right total knee replacement by Dr. Byrnes who is currently in need of intensive therapy in order to return home of which the last several years he went from using a can to a walker and then wheelchair bound for the past three years due to right knee pain and unable to ambulate. He does have all the assistive devices and wheelchair friendly house but he would like to improve him ambulation, improve the safety of his transfers and lessen the burden of care for his of 58 years. His PCP is Dr. Bach and Dr. Giraldo sees him after recently becoming established last week for a heart attack he had in 1995 and a cardiac murmur. (EST was normal). He is currently doing well and remains with a Anguiano catheter due to the inability to get out of bed so he would like to keep that in for a little while longer in order to prevent incontinence and other issues. He has not had a BM but is eating and drinking well. He is supposed to wear CPAP but is noncompliant and denies wearing oxygen at home. At this current time pt pain is well controlled at a 3 currently. He has a CPM machine on board and I did update Dr. Byrnes on the fact that we would admit him to inpatient rehab to return to prior level of functioning or a little better in order to regain independence in ADLs and ambulation at home. 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 The pt has no new complaints at this time. Subjective/Events-last exam He doesn't report he has had a real good bowel movement for 9 days although he has had some bowel movements he seems insistant on his answer. Rescheduled his appointment with Dr. Byrnes which he had scheduled yesterday. Hgb remains stable at 10.2. Suppository and multiple meds were given but he wants to take his chocolate X- Lax from home and I have approved that. Sometimes has some difficulties interacting with health post acute care nurse here. Slum score is normal at 27/30 but he seems to still have some memory deficits. Check meds and labs Conferred with RN Reviewed therapy notes Appreciate cardiology and Urology consultation Review of Systems General: Fatigue Gastrointestinal: Constipation Genitourinary: Incontinence, Retention Musculoskeletal: leg pain Objective Exam Vital Signs Vital Signs Date Time Temp Pulse Resp B/P (MAP) Pulse Ox O2 Delivery O2 Flow Rate FiO2 02/01/19 16:33 97.2 83 14 116/65 (82) 94 Room Air Capillary Refill : General Appearance: No Apparent Distress, WD/WN, Chronically ill HEENT: PERRL/EOMI, Normal ENT Inspection, Pharynx Normal Neck: Full Range of Motion, Normal Inspection, Non Tender, Supple Respiratory: Chest Non Tender, Lungs Clear, No Accessory Muscle Use, No Respiratory Distress, Decreased Breath Sounds Cardiovascular: Regular Rate, Rhythm, Systolic Murmur, Other (Systolic ejection murmor, 3/6 with radiation to carotids) Gastrointestinal: Normal Bowel Sounds, No Organomegaly, No Pulsatile Mass, Non Tender, Soft Rectal: Deferred Back: Normal Inspection, No CVA Tenderness Extremity: Normal Capillary Refill, Normal Inspection, Normal Range of Motion (except right leg), Non Tender, No Calf Tenderness, Pedal Edema Neurologic/Psychiatric: Alert, Oriented x3, No Motor/Sensory Deficits, Normal Mood/Affect, 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 FIM Transfers Therapy Code Descriptions/Definitions Functional [place] Measure: 0=Not Assessed/NA 4=Minimal Assistance 1=Total Assistance 5=Supervision or Setup 2=Maximal Assistance 6=Modified [place] 3=Moderate Assistance 7=Complete [place] Therapy Quality Codes: 6 Independent with activity with or without an assistive device 5 Patient requires set up or clean up by helper. Patient completes activity by themselves 4 Supervision or touching assist (CGA). [place] provide cues , steadying assist 3 The helper provides less than half the effort to complete the activity 2 The helper provides more than half the effort to complete the activity 1 Dependent. The helper does all the effort to complete an activity 7 Patient refused to complete or attempt activity 9 The patient did not perform the activity before the current illness or injury 88 Not attempted due to Medical conditions or safety concerns Transfers (B, C, W/C) (FIM): 4 (Slide board transfers.) Scootin Rollin Roll Left to Right (QC): 3 Supine to/from Sit: 4 Sit to/from Stand: 3 Sit to Lying (QC): 2 (max assist to get legs into bed and for trunk control) Sit to Stand (QC): 3 Chair/Ufn-rm-Rkzfv Xfer(QC): 1 Bed to/from Chair: 1 Car Transfer (QC): 88 (unsafe to attempt with sit to stand lift) Gait Training Does the Patient Walk?: No and Walking Goal IS indicated Gait (FIM): 0 (pt unable to come to a full stand to attempt ambulation; req uires a mech sit to stand lift to stand up) Distance (FIM): 0=does not occure Walk 10 feet (QC): 88 Walk 50 ft with 2 Turns(QC): 88 Walk 150 ft (QC): 9 Walking 10ft/uneven surface-QC: 88 Gait Assistive Device: FWW Wheelchair Training Does the Pt Use a Wheelchair?: Yes Wheelchair (FIM): 6 Wheelchair Distance: 3=150 ft Distance: 150' Wheelchair Level of Assist: 6 Wheel 50 ft with 2 turns (QC): 6 Wheel 150 ft (QC): 6 Type of Wheelchair: Motorized Stair Training Stairs (FIM): 0 1 Step (curb) (QC): 88 4 Steps (QC): 88 12 Steps (QC): 88 Balance Picking up an Object (QC): 88 Mental Status/Objective Comprehension: 7 Expression: 7 Social Interaction: 7 Problem Solvin Memory: 7 ADL-Treatment Groomin Oral Hygiene (QC): 4 Bathin (Pt. required assistance in shower chair with bathing feet and leatha area.) Shower/Bathe Self (QC): 3 Upper Extremity Dressin Upper Body Dressing (QC): 5 Lower Extremity Dressin Lower Body Dressing (QC): 3 On/Off Footwear (QC): 2 Toiletin Toileting Hygiene (QC): 2 Toilet/Commode Transfer: 4 (With slide board) Toilet Transfer (QC): 4 (With slide board) Shower: 1 Assessment/Plan Assessment and Plan Assess & Plan/Chief Complaint A/P: IRF protocols BM regimen to be maintained Pain control Lovenox Consult Dr Giraldo is appreciated Monitor hypotension Home meds In/Out cath for retention still so consulting Dr Simran JEFFERSON on commode to help with BM Incision looks good Slept pretty well Lasix every 48 hours for edema along with wide YULI wraps Bactrim for UTI (1) Status post total right knee replacement Status: Acute (2) Primary osteoarthritis of right knee Status: Chronic (3) Essential hypertension Status: Chronic (4) Constipation Status: Chronic Qualifiers: Constipation type: slow transit constipation Qualified Codes: K59.01 - Slow transit constipation (5) CAD (coronary artery disease) Status: Chronic Qualifiers: Coronary Disease-Associated Artery/Lesion type: [place] artery [place] vs. transplanted heart: [place] heart Associated angina: without angina Qualified Codes: I25.10 - Atherosclerotic heart disease of [place] coronary artery without angina pectoris (6) Hypothyroidism Status: Chronic Qualifiers: Hypothyroidism type: acquired Qualified Codes: E03.9 - Hypothyroidism, unspecified (7) Type II diabetes mellitus Status: Chronic Qualifiers: Diabetes mellitus skilled nursing insulin use: without moth exterminator use Diabetes mellitus complication status: with circulatory complication Diabetes mellitus complication detail: with other circulatory complications Qualified Codes: E11.59 - Type 2 diabetes mellitus with other circulatory complications (8) LILIAN (obstructive sleep apnea) Status: Chronic (9) Systolic murmur Status: Chronic (10) GERD without esophagitis Status: Chronic (11) Postoperative anemia Status: Acute (12) BPH (benign prostatic hyperplasia) Status: Chronic Qualifiers: Lower urinary tract symptom presence: unspecified whether lower urinary tract symptoms present Qualified Codes: N40.0 - Benign prostatic hyperplasia without lower urinary tract symptoms (13) Anguiano catheter in place Status: Acute (14) History of coronary artery stent placement Status: Chronic DM BERUMEN DO Feb 01, 2019 09:03
--- NOTE | 2019-02-01 09:53 | Progress Note - Urology ---
Progress Note-Urology Progress Notes/Assess & Plan Progress/Assessment & Plan VOIDING ON OWN. NO STRAIGHT CATH. STARTED ON BACTRIM DS. UC PENDING Final Diagnosis RETENTION FANG MCMILLAN MD Feb 01, 2019 09:53
--- NOTE | 2019-02-01 10:58 | NUR ---
Weekly Team Conference Discussed weekly team conference with patient and his daughter. Patient reports he is not having much knee pain s/p right TKA; however, does report neuropathy type pain. Patient also reports feeling like he has not had a good BM and his daughter states she was given permission to bring Ex-Lax from home as this is the bowel regimen the patient typically uses. RN notified. Patient's daughter had several questions regarding medications. Medication record was reviewed with the patient and his daughter and all questions were answered. Patient reports he has worked with CRISTOFER Hernandez from [facility] previously and would like to utilize again if warranted at discharge. Patient and his daughter verbalize understanding of tentative discharge date set for 02/08/19.
--- NOTE | 2019-02-01 10:59 | Physical Therapy Daily Note ---
PT Daily Note-Current Subjective [place] [facility] [place] OT present upon arrival. Pt agrees to PT/OT co-treat. Mental Status Patient Orientation: Person, Place, Time, Situation Transfers Therapy Code Descriptions/Definitions Functional [place] Measure: 0=Not Assessed/NA 4=Minimal Assistance 1=Total Assistance 5=Supervision or Setup 2=Maximal Assistance 6=Modified [place] 3=Moderate Assistance 7=Complete [place] Therapy Quality Codes: 6 Independent with activity with or without an assistive device 5 Patient requires set up or clean up by helper. Patient completes activity by themselves 4 Supervision or touching assist (CGA). [place] provide cues , steadying assi st 3 The helper provides less than half the effort to complete the activity 2 The helper provides more than half the effort to complete the activity 1 Dependent. The helper does all the effort to complete an activity 7 Patient refused to complete or attempt activity 9 The patient did not perform the activity before the current illness or injury 88 Not attempted due to Medical conditions or safety concerns Scootin Sit to/from Stand: 1 Sit to Stand (QC): 1 Weight Bearing Right Lower Extremity: Right Weight Bearing/Tolerated Left Lower Extremity: Left Full Weight Bearing Wheelchair Training Does the Pt Use a Wheelchair?: Yes Wheelchair Distance: 3=150 ft Distance: 150' Wheelchair Level of Assist: 6 Wheel 50 ft with 2 turns (QC): 6 Wheel 150 ft (QC): 6 Type of Wheelchair: Motorized Exercises Seated Therapy Exercises: Ankle pumps, Long arc quads, Hip flexion, Kicking activity, Hamstring Curls Seated Reps: 20 Treatments PT came in room at this time and pt. unable to use slide board from [facility]. Utilized sit-stand lift and transferred to wheelchair. Went to therapy gym. PT initiated LE ROM and stretch while OT completed family and pt education for home safety and purposes of treatment. Went to parallel bars and stood 3 times with max x 2 each time, and cues from OT on UE placement/knee block, cues from PT for gluteal engagement and posture. Pt. able to stand approximately 1-3 minutes each time. Placed mirror in front of him so that he could visually see his posture in stance. Tolerated this well with encouragement and cues. PT took over treatment at this time and pt completes Seated Ex in W/C before returning to Therapy Commons to rest. Assessment Current Status: Good Progress Pt is gaining strength and improving with taller, easier stands. PT Short Term Goals Short Term Goals Time Frame: Feb 07, 2019 Transfers (B,C,W/C) (FIM): 4 Gait (FIM): 2 Distance (FIM): 1=up to 49 ft Gait Assistive Device: FWW Wheelchair (FIM): 6 Wheelchair distance (FIM): 3=150 ft Wheelchair Distance: 150' PT Automatic Shirring Machine Operator Goals Automatic Shirring Machine Operator Goals PT Automatic Shirring Machine Operator Goals Time Frame: Feb 21, 2019 Transfers (B,C,W/C) (FIM): 5 Sit to Lying (QC): 6 Lying-Sitting on Side/Bed(QC): 6 Sit to Stand (QC): 6 Rollin Roll Left to Right (QC): 6 Chair/Com-lg-Lofsg Xfer(QC): 5 Car Transfer (QC): 4 Does the Patient Walk: No and Walking Goal IS indicated Gait (FIM): 2 Gait distance (FIM): 1=up to 49 ft Distance: 20 ft Walk 10 feet (QC): 6 Walk 10ft-Uneven Surface(QC): 4 Walk 50ft with 2 Turns (QC): 88 Walk 150 ft (QC): 88 Gait Assistive Device: FWW Does the Pt use WC or Scooter?: Yes Wheelchair (FIM): 6 Wheelchair distance (FIM): 3=150 ft Wheel 50 feet with 2 turns (QC: 6 Stairs (FIM): 0 1 Step (curb) (QC): 9 4 Steps (QC): 9 12 Steps (QC): 9 Picking up an Object (QC): 88 PT Plan Problem List Problem List: Activity Tolerance, Functional Strength, Transfer Treatment/Plan Treatment Plan: Continue Plan of Care Treatment Plan: Bed Mobility, Education, Functional Activity Glenn, Functional Strength, Group Therapy, Gait, Safety, Therapeutic Exercise, Transfers Treatment Duration: Feb 21, 2019 Frequency: At least 5 of 7 days/Wk (IRF) Estimated Hrs Per Day: 1.5 hours per day Patient and/or Family Agrees t: Yes Safety Risks/Education Patient Education: Transfer Techniques, Correct Positioning, Safety Issues Teaching Recipient: Patient Teaching Methods: Discussion Response to Teaching: Verbalize Understanding Time/GCodes Time In: 900 Time Out: 1000 Total Billed Treatment Time: 60 Total Billed Treatment 1, WCH (15m), FA (15m), GT (15m) & EX (15m) YENY VILLEDA TUB RIDER Feb 01, 2019 10:59
--- NOTE | 2019-02-01 12:26 | Occupational Ther Daily Note ---
OT Current Status-Daily Note Subjective No pain reported. Appearance Pt. in bed. Agrees to work with OT. Mental Status/Objective Patient Orientation: Person, Place Therapy Code Descriptions/Definitions Functional [place] Measure: 0=Not Assessed/NA 4=Minimal Assistance 1=Total Assistance 5=Supervision or Setup 2=Maximal Assistance 6=Modified [place] 3=Moderate Assistance 7=Complete [place] ADL-Treatment Therapy Code Descriptions/Definitions Functional [place] Measure: 0=Not Assessed/NA 4=Minimal Assistance 1=Total Assistance 5=Supervision or Setup 2=Maximal Assistance 6=Modified [place] 3=Moderate Assistance 7=Complete [place] Therapy Quality Codes: 6 Independent with activity with or without an assistive device 5 Patient requires set up or clean up by helper. Patient completes activity by themselves 4 Supervision or touching assist (CGA). [place] provide cues , steadying assist 3 The helper provides less than half the effort to complete the activity 2 The helper provides more than half the effort to complete the activity 1 Dependent. The helper does all the effort to complete an activity 7 Patient refused to complete or attempt activity 9 The patient did not perform the activity before the current illness or injury 88 Not attempted due to Medical conditions or safety concerns Bathing (FIM): 4 (Min assist to bathe rear leatha area while seated on BSC. Pt. utilized LH sponge to wash feet. ) Shower/Bathe Self (QC): 4 Upper Body (FIM): 5 Upper Body Dressing (QC): 4 Lower Body Dressing (FIM): 3 (SBA to doff shorts while seated on side of bed. Min assist to doff brief seated on BSC. Pt. able to don brief and shorts with DS but unable to rock side to side to gum puller hips. OT did this for pt.) Lower Body Dressing (QC): 3 On/Off Footwear (QC): 2 (Max assist to don shoes .) Toileting (FIM): 2 (Pt. issued toilet tongs and encouraged to rock side to side to attempt to cleanse leatha area. Pt. unable to do so effectively.) Toileting Hygiene (QC): 2 Transfers (B, C, W/C) (FIM): 1 (Min assist to transfer with side board to [facility] from bed. Dependent however with sit-stand lift from [facility] to power chair. Pt. unable to utilize slide board with this transfer.) Toilet/Commode Transfer (FIM): 1 Toilet Transfer (QC): 1 Pt. encouraged to complete sponge bath this date so that he could attempt to [place] self and complete tasks on his own. Pt. transferred supine-sit with min assist to sit on side of bed. Transferred to [facility] and completed ADLS from this level. PT came in room at this time and pt. unable to use slide board from [facility]. Utilized sit-stand lift and transferred to wheelchair. Went to therapy gym. PT initiated LE ROM and stretch while OT completed family and pt education for home safety and purposes of treatment. Went to parallel bars and stood 3 times with max x 2 each time, and cues from OT on UE placement/knee block, cues from PT for gluteal engagement and posture. Pt. able to stand approximately 1-3 minutes each time. Placed mirror in front of him so that he could visually see his posture in stance. Tolerated this well with encouragement and cues. PT took over treatment at this time. Education OT Patient Education: Correct positioning, Exercise program, Modified ADL techniques, Progress toward Goal/Update tx plan, Purpose of tx/functional activities, Reviewed precautions, Rehab process, Transfer techniques Teaching Recipient: Patient Teaching Methods: Demonstration, Discussion Response to Teaching: Verbalize Understanding, Return Demonstration OT Short Term Goals Short Term Goals Time Frame: Jan 31, 2019 Eating(FIM): 5 Grooming(FIM): 5 Bathing(FIM): 4 Upper Body Dressing(FIM): 4 Lower Body Dressing(FIM): 4 Toileting(FIM): 3 Transfers (B,C,W/C) (FIM): 4 Toilet/Commode Transfer(FIM): 4 Shower Transfer(FIM): 4 1=Demonstrate adherence to instructed precautions during ADL tasks. 2=Patient will verbalize/demonstrate understanding of assistive devices/modifications for ADL. 3=Patient will improve strength/tolerance for activity to enable patient to perform ADL's. OT Correction Goals Senior Quality Control Inspector Goals Time Frame: Feb 07, 2019 Eating (FIM): 6 Eating (QC): 6 Groomin Oral Hygiene (QC): 6 Bathing(FIM): 4 Shower/Bathe Self (QC): 4 Upper Body Dressing(FIM): 5 Upper Body Dressing (QC): 4 Lower Body Dressing(FIM): 5 Lower Body Dressing (QC): 4 On/Off Footwear (QC): 4 Toileting(FIM): 5 Toileting Hygiene (QC): 4 Transfers (B,C,W/C) (FIM): 5 Toilet/Commode Transfer(FIM): 5 Toilet/Commode Transfer (QC): 4 Shower Transfer(FIM): 4 Additional Goals: 1-Demonstrate ADL Tasks, 2-Verbalize Understanding, 3- ImproveStrength/Glenn 1=Demonstrate adherence to instructed precautions during ADL tasks. 2=Patient will verbalize/demonstrate understanding of assistive devices/modifi cations for ADL. 3=Patient will improve strength/tolerance for activity to enable patient to perform ADL's. OT Education/Plan Problem List/Assessment Assessment: Decreased Activ Tolerance, Decreased UE Strength, Dependent Transfers, Impaired Bed Mobility, Impaired Funct Balance, Impaired I ADL's, Impaired Self-Care Skills Discharge Recommendations Plan/Recommendations: Continue POC Treatment Plan/Plan of Care Treatment,Training & Education: Yes Patient would benefit from OT for education, treatment and training to promote independence in ADL's, mobility, safety and/or upper extremity function for ADL's. Plan of Care: ADL Retraining, Functional Mobility, Group Exercise/Act as Ind, UE Funct Exercise/Act Treatment Duration: Feb 07, 2019 Frequency: At least 5 of 7 days/Wk (IRF) Estimated Hrs Per Day: 1.5 hours per day Agreement: Yes Rehab Potential: Fair Time/GCodes Start Time: 08:30 Stop Time: 10:00 Total Time Billed (hr/min): 90 Billed Treatment Time 1, ADL x 60minutes, FA x 30minutes Partial co-treatment completed with PT. Please see above for designated roles. CIERRA MILLIGAN OT Feb 01, 2019 12:26
[2019-02-01] MEDS: MAGNESIUM 1 GM/100 ML IVPB 100 ML IV SCH ×2 (12:39→13:42)
--- NOTE | 2019-02-01 13:43 | Physical Therapy Daily Note ---
PT Daily Note-Current Subjective Pt laying Supine in bed upon arrival. Pt agrees to PT. Pain Location: No Pain Reported Mental Status Patient Orientation: Person, Place, Time, Situation Transfers Therapy Code Descriptions/Definitions Functional [place] Measure: 0=Not Assessed/NA 4=Minimal Assistance 1=Total Assistance 5=Supervision or Setup 2=Maximal Assistance 6=Modified [place] 3=Moderate Assistance 7=Complete [place] Therapy Quality Codes: 6 Independent with activity with or without an assistive device 5 Patient requires set up or clean up by helper. Patient completes activity by themselves 4 Supervision or touching assist (CGA). [place] provide cues , steadying assist 3 The helper provides less than half the effort to complete the activity 2 The helper provides more than half the effort to complete the activity 1 Dependent. The helper does all the effort to complete an activity 7 Patient refused to complete or attempt activity 9 The patient did not perform the activity before the current illness or injury 88 Not attempted due to Medical conditions or safety concerns Weight Bearing Right Lower Extremity: Right Weight Bearing/Tolerated Left Lower Extremity: Left Full Weight Bearing Exercises Supine Ex: Ankle pumps, Quad Set, Glut sets, Heel Slides, Resisted flex/ext, Straight leg raise, Hip abd/add Supine Reps: 20 Treatments Pt completes Supine Ex in bed with a couple short RB. VISUAL EDUCATION DIRECTOR & pt discuss use of polar pack and CPM. VISUAL EDUCATION DIRECTOR checks CPM to make sure it is set back to 50 degrees as requested by pt. Pt resting at end of tx with all needs met, call light next to pt. Assessment Current Status: Good Progress Pt's strength and flexion is improving with tx. PT Short Term Goals Short Term Goals Time Frame: Feb 07, 2019 Transfers (B,C,W/C) (FIM): 4 Gait (FIM): 2 Distance (FIM): 1=up to 49 ft Gait Assistive Device: FWW Wheelchair (FIM): 6 Wheelchair distance (FIM): 3=150 ft Wheelchair Distance: 150' PT Senior Living Goals Psychological Tests Sales Agent Goals PT Psychological Tests Sales Agent Goals Time Frame: Feb 21, 2019 Transfers (B,C,W/C) (FIM): 5 Sit to Lying (QC): 6 Lying-Sitting on Side/Bed(QC): 6 Sit to Stand (QC): 6 Rollin Roll Left to Right (QC): 6 Chair/Ahw-ux-Ehsio Xfer(QC): 5 Car Transfer (QC): 4 Does the Patient Walk: No and Walking Goal IS indicated Gait (FIM): 2 Gait distance (FIM): 1=up to 49 ft Distance: 20 ft Walk 10 feet (QC): 6 Walk 10ft-Uneven Surface(QC): 4 Walk 50ft with 2 Turns (QC): 88 Walk 150 ft (QC): 88 Gait Assistive Device: FWW Does the Pt use WC or Scooter?: Yes Wheelchair (FIM): 6 Wheelchair distance (FIM): 3=150 ft Wheel 50 feet with 2 turns (QC: 6 Stairs (FIM): 0 1 Step (curb) (QC): 9 4 Steps (QC): 9 12 Steps (QC): 9 Picking up an Object (QC): 88 PT Plan Problem List Problem List: Activity Tolerance, Functional Strength, ROM Treatment/Plan Treatment Plan: Continue Plan of Care Treatment Plan: Bed Mobility, Education, Functional Activity Glenn, Functional Strength, Group Therapy, Gait, Safety, Therapeutic Exercise, Transfers Treatment Duration: Feb 21, 2019 Frequency: At least 5 of 7 days/Wk (IRF) Estimated Hrs Per Day: 1.5 hours per day Patient and/or Family Agrees t: Yes Safety Risks/Education Patient Education: Reviewed Use of Ice, Correct Positioning, Safety Issues Teaching Recipient: Patient Teaching Methods: Discussion Response to Teaching: Verbalize Understanding Time/GCodes Time In: 1255 Time Out: 1325 Total Billed Treatment Time: 30 Total Billed Treatment 1, EX x2 (30m) YENY VILLEDA VISUAL EDUCATION DIRECTOR Feb 01, 2019 13:43
[2019-02-01] MEDS ORDERED: PATIENT MAY USE OWN MED,SINGLE MED PO SCH (14:45)
[2019-02-01] MEDS ORDERED: SENN15TA5 PO (14:51)
--- NOTE | 2019-02-01 16:07 | Progress Note - Cardiology ---
Cardiology SOAP Progress Note Subjective: No cp or palp Mod exertional shortness of breath Leg swelling unchanged Objective: I&O/Vital Signs 02/01/19 02/01/19 06:22 08:04 Temp 99.0 Pulse 92 Resp 16 B/P (MAP) 130/72 (91) Pulse Ox 93 O2 Delivery Room Air Room Air 02/01/19 00:00 Intake Total 1350 ml Output Total 850 ml Balance 500 ml Weight (Pounds): 281 Weight (Ounces): 1.6 Weight (Calculated Kilograms): 127.786271 Constitutional: AAO x 3, well-developed, well-nourished Respiratory: lungs clear to percussion, lungs clear to auscultation Cardiovascular: regular rate-rhythm, S1 and S2, systolic murmur Gastrointestional: audible bowel sounds Extremities: swelling (moderate, bilateral leg swelling; R>L); No clubbing, No cyanosis Neurologic/Psychiatric: oriented x 3, grossly intact Skin: No rash on exposed areas, No ulcerations on exposed areas; other (S/P right knee replacement - dressing in place D&I) Results/Procedures: Labs Laboratory Tests 01/31/19 18:43: Urine Color YELLOW, Urine Clarity CLEAR, Urine pH 5, Urine Specific [place] 1.010L, Urine Protein NEGATIVE, Urine Glucose (UA) NEGATIVE, Urine Ketones NEGATIVE, Urine Nitrite NEGATIVE, Urine Bilirubin NEGATIVE, Urine Urobilinogen NORMAL, Urine Leukocyte Esterase 2+H, Urine RBC (Auto) NEGATIVE, Urine RBC NONE, Urine WBC 10-25H, Urine Crystals NONE, Urine Bacteria LARGEH, Urine Casts NONE, Urine Mucus NEGATIVE, Urine Culture Indicated YES 02/01/19 06:20: White Blood Count 9.1, Red Blood Count 3.64L, Hemoglobin 10.2L, Hematocrit 32L, Mean Corpuscular Volume 88, Mean Corpuscular Hemoglobin 28, Mean Corpuscular Hemoglobin Concent 32, Red Cell Distribution Width 17.7H, Platelet Count 348, Mean Platelet Volume 10.7H, Neutrophils (%) (Auto) 77H, Lymphocytes (%) (Auto) 11L, Monocytes (%) (Auto) 10, Eosinophils (%) (Auto) 2, Basophils (%) (Auto) 0, Neutrophils # (Auto) 7.1, Lymphocytes # (Auto) 1.0, Monocytes # (Auto) 0.9, Eosinophils # (Auto) 0.2, Basophils # (Auto) 0.0, Sodium Level 138, Potassium Level 3.8, Chloride Level 106, Carbon Dioxide Level 20L, Anion Gap 12, Blood Urea Nitrogen 15, Creatinine 0.75, Estimat Glomerular Filtration Rate > 60, BUN/Creatinine Ratio 20, Glucose Level 135H, Calcium Level 8.9, Corrected Calcium 9.5, Magnesium Level 1.5L, Total Bilirubin 0.8, Aspartate Amino Transf (AST/SGOT) 39H, Alanine Aminotransferase (ALT/SGPT) 59H, Alkaline Phosphatase 91, Total Protein 6.3L, Albumin 3.2 Microbiology 01/31/19 Urine Culture - Preliminary, Resulted Gram Negative Brendan Laboratory Tests 02/01/19 06:20 A/P: Assessment: Relative hypotension, now resolved S/p right TKR on 01-23-[address] Byrnes Severe aortic stenosis. Echocardiogram of 01-19-19 showed concentric hypertrophy. LVEF 70-75%. LA mod dilated. Severe Ao stenosis, mean gradient 53 mmHg, valve area 1.1 sq sm. RVSP 20 mmHg. Mild MR. H/o CAD, s/p two cor stents in 1995 following MD, details unknown MPI of January 19, 2019 showed no evidence of any significant myocardial ischemia or infarction. LVEF 91% Bilateral leg swelling, likely due to venous insufficiency Elec abn due to diuretics Quit smoking in 1995 DJD H/o hyperlipidemia - statin tx - followed by his PCP LILIAN, non-compliant with CPAP Mild COPD on PFTs of Mar 2019 Elevated liver enzymes of undetermined etiology - Dr Juárez managing Plan: * Continue current regimen * Monitor labs DONN THEODORE MD FACP FAC CCDS Feb 01, 2019 16:07
--- NOTE | 2019-02-01 16:07 | NUR ---
PATIENT'S OWN MED ID'D AND LABELED PATIENT'S OWN EX-LAX ERICK LAX - THIS WAS THE ONLY MED SENT TO PHARMACY AT THIS TIME
[2019-02-01 16:33] VITALS: BP 116/65
[2019-02-01] MEDS: PANTOPRAZOLE 40 MG (PROTONIX) TAB PO SCH (18:19)
--- NOTE | 2019-02-01 19:07 | NUR ---
bedside report received from ANDREWS LOGAN, assume care of pt
--- NOTE | 2019-02-01 21:40 | NUR ---
assessments & interventions completed, see assessments & interventions, passing alot of flatus but no stool .
--- NOTE | 2019-02-01 21:45 | NUR ---
pt refused Dulcolax suppository but took Senokot,miralax, c/o pain level 4/10 on numeric scale, Lortab 10 2 tabs po given
--- NOTE | 2019-02-01 22:30 | NUR ---
resting quietly in bed, pain level 0/10 on flacc scale
[2019-02-02] MEDS: ALPRAZolam 0.25 MG (XANAX) TAB PO PRN ×2 (01:56→23:57)
--- NOTE | 2019-02-02 01:56 | NUR ---
pt requesting something to help him relax, Xanax 0.25mg given
[2019-02-02 06:33] LABS: BUN/CREATININE RATIO 19; CALCIUM 8.4 MG/DL (8.5-10.1); CARBON DIOXIDE 20 MMOL/L (21-32); CHLORIDE 107 MMOL/L (98-107); CREATININE SERUM 0.74 MG/DL (0.60-1.30); GFR ESTIMATED > 60; GLUCOSE 105 MG/DL (70-105); POTASSIUM 3.8 MMOL/L (3.6-5.0); SODIUM 138 MMOL/L (135-145)
[2019-02-02 06:47] VITALS: BP 127/56
[2019-02-02] MEDS: ENOXAPARIN 40 MG/0.4 ML (LOVENOX) SYR SC SCH ×2 (06:47→17:43)
[2019-02-02] MEDS: LEVOTHYROXINE 50 MCG (LEVOTHROID) TAB PO SCH (06:47)
[2019-02-02] MEDS: LEVOTHYROXINE 100 MCG (LEVOTHROID) TAB PO SCH (06:47)
[2019-02-02] MEDS: PREGABALIN 150 MG (LYRICA) CAPSULE PO SCH ×2 (06:48→20:40)
[2019-02-02] MEDS: TRIM/SULFAMETH 160/800 (SEPTRA DS) TAB PO SCH (06:48)
[2019-02-02] MEDS: CATHETER FLUSH 10 ML SYR IV SCH ×3 (06:52→20:42)
--- NOTE | 2019-02-02 07:17 | NUR ---
bedside report given to ANDREWS LOGAN
--- NOTE | 2019-02-02 08:20 | Progress Note - Urology ---
Progress Note-Urology Progress Notes/Assess & Plan Progress/Assessment & Plan CONTINUES VOIDING ON OWN. UC SHOWED E.COLI. SENSITIVITY PENDING Final Diagnosis URINE RETENTION AND UTI FANG MCMILLAN MD Feb 02, 2019 08:20
[2019-02-02] MEDS: BISACODYL 10 MG SUPP (DULCOLAX) PR SCH ×2 (08:33→20:41)
--- NOTE | 2019-02-02 08:46 | NUR ---
Initial visit with the pt is the front lobby. He was sitting looking at the fish tank, and engaged openly when I approached him. He shared that he was raised Taoism, but has no raheem affiliation now. He said he does not hold strong feelings for or against any shinto, and does not like anyone pushing their shinto on him. He said this was why he declined home management supervisor support when staff offered it. I empathized with his feelings, and shared my observation that many people are not sure what to expect when they are offered home management supervisor support. The pt laughed amicably and said, "Yeah, I thought to myself 'am I going to hear a sermon?"' I shared that our chaplains seek to respect persons of all backgrounds and beliefs by listening and learning from each individual how we may be of support. I expressed my appreciation to him for sharing his thoughts and perspective. The pt then told me about his recent knee surgery and personal determination to regain strength and maintain it. He said he appreciated our visit and welcomed follow up.
--- NOTE | 2019-02-02 09:38 | PM&R Progress Note ---
Subjective HPI/CC On Admission Date Seen by Provider: Feb 02, 2019 Time Seen by Provider: 09:30 CC: Debility following right total knee replacement uncomplicated by Dr. Byrnes POD # 1 HPI: This is a 78yoWM who is s/p uncomplicated right total knee replacement by Dr. Byrnes who is currently in need of intensive therapy in order to return home of which the last several years he went from using a can to a walker and then wheelchair bound for the past three years due to right knee pain and unable to ambulate. He does have all the assistive devices and wheelchair friendly house but he would like to improve him ambulation, improve the safety of his transfers and lessen the burden of care for his of 58 years. His PCP is Dr. Bach and Dr. Giraldo sees him after recently becoming established last week for a heart attack he had in 1995 and a cardiac murmur. (EST was normal). He is currently doing well and remains with a Anguiano catheter due to the inability to get out of bed so he would like to keep that in for a little while longer in order to prevent incontinence and other issues. He has not had a BM but is eating and drinking well. He is supposed to wear CPAP but is noncompliant and denies wearing oxygen at home. At this current time pt pain is well controlled at a 3 currently. He has a CPM machine on board and I did update Dr. Byrnes on the fact that we would admit him to inpatient rehab to return to prior level of functioning or a little better in order to regain independence in ADLs and ambulation at home. 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 The pt has no new complaints at this time. Subjective/Events-last exam Patient was anxious last night so he was given a Xanax UTI being treated with Bactrim Bowel movement treatment just does not seem to be getting the job done and his family brought in his chocolate Ex-Lax Lasix every other day ordered by Dr. Barclay and he wants that changed every day so we will confer with Dr. Giraldo regarding that Check meds and labs Reviewed therapy notes Conferred with agricultural loan officer of Systems General: Fatigue Musculoskeletal: leg pain Objective Exam Vital Signs Vital Signs Date Time Temp Pulse Resp B/P (MAP) Pulse Ox O2 Delivery O2 Flow Rate FiO2 02/02/19 08:05 Room Air 02/02/19 06:47 99.6 86 20 127/56 (79) 91 Capillary Refill : General Appearance: No Apparent Distress, WD/WN, Chronically ill HEENT: PERRL/EOMI, Normal ENT Inspection, Pharynx Normal Neck: Full Range of Motion, Normal Inspection, Non Tender, Supple Respiratory: Chest Non Tender, Lungs Clear, No Accessory Muscle Use, No Respiratory Distress, Decreased Breath Sounds Cardiovascular: Regular Rate, Rhythm, Systolic Murmur, Other (Systolic ejection murmor, 3/6 with radiation to carotids) Gastrointestinal: Normal Bowel Sounds, No Organomegaly, No Pulsatile Mass, Non Tender, Soft Rectal: Deferred Back: Normal Inspection, No CVA Tenderness Extremity: Normal Capillary Refill, Normal Inspection, Normal Range of Motion (except right leg), Non Tender, No Calf Tenderness, Pedal Edema Neurologic/Psychiatric: Alert, Oriented x3, No Motor/Sensory Deficits, Normal Mood/Affect, tool and die maker level five II-XII Norm as Tested, Sensory Deficit (lower extremiteis with neuropathy) Skin: Normal Color, Warm/Dry Lymphatic: No Adenopathy Results/Procedures Lab Laboratory Tests 02/02/19 05:30 Patient resulted labs reviewed. FIM Transfers Therapy Code Descriptions/Definitions Functional [place] Measure: 0=Not Assessed/NA 4=Minimal Assistance 1=Total Assistance 5=Supervision or Setup 2=Maximal Assistance 6=Modified [place] 3=Moderate Assistance 7=Complete [place] Therapy Quality Codes: 6 Independent with activity with or without an assistive device 5 Patient requires set up or clean up by helper. Patient completes activity by themselves 4 Supervision or touching assist (CGA). [place] provide cues , steadying assist 3 The helper provides less than half the effort to complete the activity 2 The helper provides more than half the effort to complete the activity 1 Dependent. The helper does all the effort to complete an activity 7 Patient refused to complete or attempt activity 9 The patient did not perform the activity before the current illness or injury 88 Not attempted due to Medical conditions or safety concerns Transfers (B, C, W/C) (FIM): 1 (Min assist to transfer with side board to [facility] from bed. Dependent however with sit-stand lift from [facility] to power chair. Pt. unable to utilize slide board with this transfer.) Scootin Rollin Roll Left to Right (QC): 3 Supine to/from Sit: 4 Sit to/from Stand: 1 Sit to Lying (QC): 2 (max assist to get legs into bed and for trunk control) Sit to Stand (QC): 1 Chair/Vri-fz-Oanic Xfer(QC): 1 Bed to/from Chair: 1 Car Transfer (QC): 88 (unsafe to attempt with sit to stand lift) Gait Training Does the Patient Walk?: No and Walking Goal IS indicated Gait (FIM): 0 (pt unable to come to a full stand to attempt ambulation; requires a [facility] sit to stand lift to stand up) Distance (FIM): 0=does not occure Walk 10 feet (QC): 88 Walk 50 ft with 2 Turns(QC): 88 Walk 150 ft (QC): 9 Walking 10ft/uneven surface-QC: 88 Gait Assistive Device: FWW Wheelchair Training Does the Pt Use a Wheelchair?: Yes Wheelchair (FIM): 6 Wheelchair Distance: 3=150 ft Distance: 150' Wheelchair Level of Assist: 6 Wheel 50 ft with 2 turns (QC): 6 Wheel 150 ft (QC): 6 Type of Wheelchair: Motorized Stair Training Stairs (FIM): 0 1 Step (curb) (QC): 88 4 Steps (QC): 88 12 Steps (QC): 88 Balance Picking up an Object (QC): 88 Mental Status/Objective Comprehension: 7 Expression: 7 Social Interaction: 7 Problem Solvin Memory: 7 ADL-Treatment Groomin Oral Hygiene (QC): 4 Bathin (Min assist to bathe rear leatha area while seated on BSC. Pt. utilized LH sponge to wash feet. ) Shower/Bathe Self (QC): 4 Upper Extremity Dressin Upper Body Dressing (QC): 4 Lower Extremity Dressin (SBA to doff shorts while seated on side of bed. Min assist to doff brief seated on BSC. Pt. able to don brief and shorts with DS but unable to rock side to side to cake puller hips. OT did this for pt.) Lower Body Dressing (QC): 3 On/Off Footwear (QC): 2 (Max assist to don shoes .) Toiletin (Pt. issued toilet tongs and encouraged to rock side to side to attempt to cleanse leatha area. Pt. unable to do so effectively.) Toileting Hygiene (QC): 2 Toilet/Commode Transfer: 1 Toilet Transfer (QC): 1 Shower: 1 Assessment/Plan Assessment and Plan Assess & Plan/Chief Complaint A/P: IRF protocols BM regimen to be maintained Pain control Lovenox Consult Dr Giraldo is appreciated Monitor hypotension Home meds In/Out cath for retention still so consulting Dr Simran JEFFERSON on commode to help with BM Incision looks good Slept pretty well Lasix every 48 hours for edema along with wide YULI wraps but he wants the Lasix every day Bactrim for UTI awaiting UCx (1) Status post total right knee replacement Status: Acute (2) Primary osteoarthritis of right knee Status: Chronic (3) Essential hypertension Status: Chronic (4) Constipation Status: Chronic Qualifiers: Constipation type: slow transit constipation Qualified Codes: K59.01 - Slow transit constipation (5) CAD (coronary artery disease) Status: Chronic Qualifiers: Coronary Disease-Associated Artery/Lesion type: torres [place]inez artery [place] vs. transplanted heart: torres martinez heart Associated angina: without angina Qualified Codes: I25.10 - Atherosclerotic heart disease of torres martinez coronary artery without angina pectoris (6) Hypothyroidism Status: Chronic Qualifiers: Hypothyroidism type: acquired Qualified Codes: E03.9 - Hypothyroidism, unspecified (7) Type II diabetes mellitus Status: Chronic Qualifiers: Diabetes mellitus coal chemist insulin use: without [facility] use Diabetes mellitus complication status: with circulatory complication Diabetes mellitus complication detail: with other circulatory complications Qualified Codes: E11.59 - Type 2 diabetes mellitus with other circulatory complications (8) LILIAN (obstructive sleep apnea) Status: Chronic (9) Systolic murmur Status: Chronic (10) GERD without esophagitis Status: Chronic (11) Postoperative anemia Status: Acute (12) BPH (benign prostatic hyperplasia) Status: Chronic Qualifiers: Lower urinary tract symptom presence: unspecified whether lower urinary tract symptoms present Qualified Codes: N40.0 - Benign prostatic hyperplasia without lower urinary tract symptoms (13) Anguiano catheter in place Status: Acute (14) History of coronary artery stent placement Status: Chronic DM BERUMEN DO Feb 02, 2019 09:37
--- NOTE | 2019-02-02 10:29 | Physical Therapy Daily Note ---
PT Daily Note-Current Subjective Patient in power chair pre tx, agrees to PT, has no complaints of pain at rest. Will be co-treating with OT due to poor patient mobility, strength, endurance, ROM, the inability to stand and ambulate, the need to coordinate UE and LE during activity. Patient needs bathed this morning. Appearance Patient in power wheelchair post tx Mental Status Patient Orientation: Person, Place, Situation Transfers Therapy Code Descriptions/Definitions Functional [place] Measure: 0=Not Assessed/NA 4=Minimal Assistance 1=Total Assistance 5=Supervision or Setup 2=Maximal Assistance 6=Modified [place] 3=Moderate Assistance 7=Complete [place] Therapy Quality Codes: 6 Independent with activity with or without an assistive device 5 Patient requires set up or clean up by helper. Patient completes activity by themselves 4 Supervision or touching assist (CGA). [place] provide cues , steadying assist 3 The helper provides less than half the effort to complete the activity 2 The helper provides more than half the effort to complete the activity 1 Dependent. The helper does all the effort to complete an activity 7 Patient refused to complete or attempt activity 9 The patient did not perform the activity before the current illness or injury 88 Not attempted due to Medical conditions or safety concerns Transfers (B, C, W/C) (FIM): 1 Sit to/from Stand: 2 Bed to/from Chair: 4 Patient can stand using a standing machine for transfers or in the parallel bars with max assist (stood x3 for about 30 sec each time), he can also perform a sliding board transfer with min assist to place the board and keep it from sliding. Weight Bearing Right Lower Extremity: Right Weight Bearing/Tolerated Left Lower Extremity: Left Full Weight Bearing Wheelchair Training Wheelchair (FIM): 6 Exercises Seated Therapy Exercises: Ankle pumps, Long arc quads, Hip flexion, Hip abd/add Seated Reps: 20 right knee stretching in flexion and extension Treatments LE exercises, standing, transfers, assist with bathing with positioning and standing and transfers Assessment Current Status: Poor Progress no change in mobility PT Short Term Goals Short Term Goals Time Frame: Feb 07, 2019 Transfers (B,C,W/C) (FIM): 4 Gait (FIM): 2 Distance (FIM): 1=up to 49 ft Gait Assistive Device: FWW Wheelchair (FIM): 6 Wheelchair distance (FIM): 3=150 ft Wheelchair Distance: 150' PT Procurement Manager Goals Nursing Home Goals PT Nursing Home Goals Time Frame: Feb 21, 2019 Transfers (B,C,W/C) (FIM): 5 Sit to Lying (QC): 6 Lying-Sitting on Side/Bed(QC): 6 Sit to Stand (QC): 6 Rollin Roll Left to Right (QC): 6 Chair/Fmz-eq-Pzxjl Xfer(QC): 5 Car Transfer (QC): 4 Does the Patient Walk: No and Walking Goal IS indicated Gait (FIM): 2 Gait distance (FIM): 1=up to 49 ft Distance: 20 ft Walk 10 feet (QC): 6 Walk 10ft-Uneven Surface(QC): 4 Walk 50ft with 2 Turns (QC): 88 Walk 150 ft (QC): 88 Gait Assistive Device: FWW Does the Pt use WC or Scooter?: Yes Wheelchair (FIM): 6 Wheelchair distance (FIM): 3=150 ft Wheel 50 feet with 2 turns (QC: 6 Stairs (FIM): 0 1 Step (curb) (QC): 9 4 Steps (QC): 9 12 Steps (QC): 9 Picking up an Object (QC): 88 PT Plan Problem List Problem List: Activity Tolerance, Functional Strength, Safety, Balance, Gait, Transfer, Bed Mobility, ROM Treatment/Plan Treatment Plan: Continue Plan of Care Treatment Plan: Bed Mobility, Education, Functional Activity Glenn, Functional Strength, Group Therapy, Gait, Safety, Therapeutic Exercise, Transfers Treatment Duration: Feb 21, 2019 Frequency: At least 5 of 7 days/Wk (IRF) Estimated Hrs Per Day: 1.5 hours per day Patient and/or Family Agrees t: Yes Safety Risks/Education Patient Education: Transfer Techniques, Correct Positioning, Safety Issues Teaching Recipient: Patient Teaching Methods: Demonstration, Discussion Response to Teaching: Reinforcement Needed Time/GCodes Time In: 0900 Time Out: 1030 Total Billed Treatment Time: 90 Total Billed Treatment 1 visit EX 30' FA 60' Co-treated for 90 min. PT performed transfers, positioning, LE exercise, assist with bathing and dressing, OT performed bathing and dressing, UE exercises, assist with transfers MICHELLE FUNES PT Feb 02, 2019 10:29
--- NOTE | 2019-02-02 10:37 | Occupational Ther Daily Note ---
OT Current Status-Daily Note Subjective pt in power w/c upon therapy arrival. pt agreed to OT / PT TX session with focus on increasing indep with ADLS, functional transfers, and UE strength for daily activities. Mental Status/Objective Therapy Code Descriptions/Definitions Functional [place] Measure: 0=Not Assessed/NA 4=Minimal Assistance 1=Total Assistance 5=Supervision or Setup 2=Maximal Assistance 6=Modified [place] 3=Moderate Assistance 7=Complete [place] ADL-Treatment Therapy Code Descriptions/Definitions Functional [place] Measure: 0=Not Assessed/NA 4=Minimal Assistance 1=Total Assistance 5=Supervision or Setup 2=Maximal Assistance 6=Modified [place] 3=Moderate Assistance 7=Complete [place] Therapy Quality Codes: 6 Independent with activity with or without an assistive device 5 Patient requires set up or clean up by helper. Patient completes activity by themselves 4 Supervision or touching assist (CGA). [place] provide cues , steadying assist 3 The helper provides less than half the effort to complete the activity 2 The helper provides more than half the effort to complete the activity 1 Dependent. The helper does all the effort to complete an activity 7 Patient refused to complete or attempt activity 9 The patient did not perform the activity before the current illness or injury 88 Not attempted due to Medical conditions or safety concerns Eating (FIM): 6 Eating (QC): 6 Grooming (FIM): 6 (seated) Oral Hygiene (QC): 6 Bathing (FIM): 1 (pt dep secodnary to having to use sit to stand to wash buttock. pt able to perform 9/10 ) Bathing Location: L Arm, R Arm, L Upper Leg, R Upper Leg, L Lower Leg (including foot), R Lower Leg (including foot), Chest, Abdomen, Perineal Area Shower/Bathe Self (QC): 1 Upper Body (FIM): 5 (dry chain puller shirt ) Upper Body Dressing (QC): 4 Lower Body Dressing (FIM): 1 (secodnary to using sit to stand to pull up pants. pt able to lean sit to sit to doff pants with CGA ) Lower Body Dressing (QC): 1 On/Off Footwear (QC): 1 Transfers (B, C, W/C) (FIM): 1 Shower Transfer(FIM): 1 co -treatment with PT secondary to complexity of patients deficits requiring skills of both disciplines. OT focus on ADL tasks while PT focus on gross trans fers/ movements, an dLE positioning. Other Treatment post shower. pt in gym and perform 2 sit to stand with MAX A standing for 30 seconds each time. pt then perform UE/ LE ex using 3# dumbbells all planes. Education OT Patient Education: Energy conservation, Home exercise program, Modified ADL techniques, Progress toward Goal/Update tx plan, Purpose of tx/functional activities, Reviewed precautions Teaching Recipient: Patient Teaching Methods: Demonstration, Discussion Response to Teaching: Verbalize Understanding, Return Demonstration OT Short Term Goals Short Term Goals Time Frame: Jan 31, 2019 Eating(FIM): 5 Grooming(FIM): 5 Bathing(FIM): 4 Upper Body Dressing(FIM): 4 Lower Body Dressing(FIM): 4 Toileting(FIM): 3 Transfers (B,C,W/C) (FIM): 4 Toilet/Commode Transfer(FIM): 4 Shower Transfer(FIM): 4 1=Demonstrate adherence to instructed precautions during ADL tasks. 2=Patient will verbalize/demonstrate understanding of assistive devices/modifications for ADL. 3=Patient will improve strength/tolerance for activity to enable patient to perform ADL's. OT Reading Recovery Teacher Goals Reading Recovery Teacher Goals Time Frame: Feb 07, 2019 Eating (FIM): 6 Eating (QC): 6 Groomin Oral Hygiene (QC): 6 Bathing(FIM): 4 Shower/Bathe Self (QC): 4 Upper Body Dressing(FIM): 5 Upper Body Dressing (QC): 4 Lower Body Dressing(FIM): 5 Lower Body Dressing (QC): 4 On/Off Footwear (QC): 4 Toileting(FIM): 5 Toileting Hygiene (QC): 4 Transfers (B,C,W/C) (FIM): 5 Toilet/Commode Transfer(FIM): 5 Toilet/Commode Transfer (QC): 4 Shower Transfer(FIM): 4 Additional Goals: 1-Demonstrate ADL Tasks, 2-Verbalize Understanding, 3- ImproveStrength/Glenn 1=Demonstrate adherence to instructed precautions during ADL tasks. 2=Patient will verbalize/demonstrate understanding of assistive devices/modifications for ADL. 3=Patient will improve strength/tolerance for activity to enable patient to perform ADL's. OT Education/Plan Problem List/Assessment Assessment: Decreased Activ Tolerance, Decreased Safety Aware, Decreased UE Strength, Dependent Transfers, Impaired Funct Balance, Impaired I ADL's, Impaired Self-Care Skills Discharge Recommendations Plan/Recommendations: Continue POC Treatment Plan/Plan of Care Treatment,Training & Education: Yes Patient would benefit from OT for education, treatment and training to promote independence in ADL's, mobility, safety and/or upper extremity function for ADL's. Plan of Care: ADL Retraining, Functional Mobility, Group Exercise/Act as Ind, UE Funct Exercise/Act Treatment Duration: Feb 07, 2019 Frequency: At least 5 of 7 days/Wk (IRF) Estimated Hrs Per Day: 1.5 hours per day Agreement: Yes Rehab Potential: Fair Time/GCodes Start Time: 09:00 Stop Time: 10:30 Billed Treatment Time co treatment with PT 90 minutes 30 minutes EX, 2 units ADL 60 minutes, 4 units DARIUS CHAU OT Feb 02, 2019 10:37
[2019-02-02] MEDS: SENNOSIDES PO PRN ×2 (11:07→23:58)
[2019-02-02] MEDS: [UNRECOGNIZED DRUG - OTHER] PO PRN ×2 (11:07→23:58)
[2019-02-02] MEDS: TAMSULOSIN 0.4 MG (FLOMAX) CAP PO SCH ×2 (11:08→20:38)
[2019-02-02] MEDS: FUROSEMIDE 20 MG (LASIX) TAB PO SCH (11:08)
[2019-02-02] MEDS: SENNA W/DOCUSATE (SENOKOT S) TABLET PO SCH ×2 (11:08→20:40)
[2019-02-02] MEDS: KCL 10 MEQ TAB (MICRO K) PO SCH (11:08)
[2019-02-02] MEDS: POLYETHYLENE GLYCOL 17 GM (MIRALAX) PACK PO SCH ×2 (11:09→20:38)
[2019-02-02] MEDS: ASPIRIN 81 MG CHEW (CHILDREN'S ASA) PO SCH (11:09)
--- NOTE | 2019-02-02 13:03 | Progress Note - Cardiology ---
Cardiology SOAP Progress Note Subjective: Bothered by his bilateral leg swelling Gen malaise and weakness Shortness of breath with mod exertion No cp or palp or syncope Objective: I&O/Vital Signs 02/02/19 06:47 Temp 99.6 Pulse 86 Resp 20 B/P (MAP) 127/56 (79) Pulse Ox 91 O2 Delivery Room Air 02/02/19 00:00 Intake Total 700 ml Balance 700 ml Weight (Pounds): 281 Weight (Ounces): 1.6 Weight (Calculated Kilograms): 127.805565 Constitutional: AAO x 3, well-developed, well-nourished Respiratory: lungs clear to percussion, lungs clear to auscultation Cardiovascular: regular rate-rhythm, S1 and S2, systolic murmur Gastrointestional: audible bowel sounds Extremities: swelling (moderate, bilateral leg swelling; R>L); No clubbing, No cyanosis Neurologic/Psychiatric: oriented x 3, grossly intact Skin: No rash on exposed areas, No ulcerations on exposed areas; other (S/P right knee replacement - dressing in place D&I) Results/Procedures: Labs Laboratory Tests 02/02/19 05:30: Sodium Level 138, Potassium Level 3.8, Chloride Level 107, Carbon Dioxide Level 20L, Anion Gap 11, Blood Urea Nitrogen 14, Creatinine 0.74, Estimat Glomerular Filtration Rate > 60, BUN/Creatinine Ratio 19, Glucose Level 105, Calcium Level 8.4L, Magnesium Level 2.0 Microbiology 01/31/19 Urine Culture - Final, Complete Escherichia coli A/P: Assessment: Relative hypotension, now resolved S/p right TKR on 01-23-[address] Byrnes Severe aortic stenosis. Echocardiogram of 01-19-19 showed concentric hypertrophy. LVEF 70-75%. LA mod dilated. Severe Ao stenosis, mean gradient 53 mmHg, valve area 1.1 sq sm. RVSP 20 mmHg. Mild MR. H/o CAD, s/p two cor stents in 1995 following [place], details unknown MPI of January 19, 2019 showed no evidence of any significant myocardial ischemia or infarction. LVEF 91% Bilateral leg swelling, likely due to venous insufficiency Elec abn due to diuretics Quit smoking in 1995 DJD H/o hyperlipidemia - statin tx - followed by his PCP LILIAN, non-compliant with CPAP Mild COPD on PFTs of Mar 2019 Elevated liver enzymes of undetermined etiology - Dr Juárez managing Plan: * Low dose Lasix changed to daily (for leg swelling that he founds very bothersome) and K supple changed to daily * Monitor labs DONN THEODORE MD FACP FACC CCDS Feb 02, 2019 13:03
[2019-02-02 17:27] VITALS: BP 145/72
[2019-02-02] MEDS: PANTOPRAZOLE 40 MG (PROTONIX) TAB PO SCH (17:43)
[2019-02-02] MEDS: HYDROcodone/APAP 10 MG/325 MG (LORTAB) TAB PO PRN (20:39)
[2019-02-02] MEDS: MELATONIN 3 MG TABLET PO PRN (20:40)
[2019-02-02] MEDS: NITROFURANTOIN 100 MG (MACROBID) CAPSULE PO SCH (20:40)
[2019-02-02] MEDS: MICONAZOLE 2% POWDER (DESENEX AF) 90 GM TOP SCH (20:42)
[2019-02-02 21:43] VITALS: BP 130/71
[2019-02-03 05:50] VITALS: BP 121/68
[2019-02-03] MEDS: LEVOTHYROXINE 50 MCG (LEVOTHROID) TAB PO SCH (06:18)
[2019-02-03] MEDS: LEVOTHYROXINE 100 MCG (LEVOTHROID) TAB PO SCH (06:18)
[2019-02-03] MEDS: PREGABALIN 150 MG (LYRICA) CAPSULE PO SCH ×2 (06:19→19:56)
[2019-02-03] MEDS: ENOXAPARIN 40 MG/0.4 ML (LOVENOX) SYR SC SCH ×2 (06:19→18:06)
[2019-02-03] MEDS: CATHETER FLUSH 10 ML SYR IV SCH ×3 (06:19→22:39)
[2019-02-03] MEDS: SENNA W/DOCUSATE (SENOKOT S) TABLET PO SCH ×2 (08:29→21:17)
[2019-02-03] MEDS: NITROFURANTOIN 100 MG (MACROBID) CAPSULE PO SCH ×2 (08:29→19:55)
[2019-02-03] MEDS: DOCUSATE SODIUM 100 MG (COLACE) CAP PO PRN (08:29)
[2019-02-03] MEDS: ASPIRIN 81 MG CHEW (CHILDREN'S ASA) PO SCH (08:30)
[2019-02-03] MEDS: POLYETHYLENE GLYCOL 17 GM (MIRALAX) PACK PO SCH ×2 (08:30→21:17)
[2019-02-03] MEDS: TAMSULOSIN 0.4 MG (FLOMAX) CAP PO SCH ×2 (08:30→19:56)
[2019-02-03] MEDS: BISACODYL 10 MG SUPP (DULCOLAX) PR SCH ×2 (08:30→21:18)
[2019-02-03] MEDS: MICONAZOLE 2% POWDER (DESENEX AF) 90 GM TOP SCH ×2 (08:32→21:18)
[2019-02-03] MEDS: HYDROcodone/APAP 10 MG/325 MG (LORTAB) TAB PO PRN ×2 (09:05→15:57)
--- NOTE | 2019-02-03 10:35 | PM&R Progress Note ---
Subjective HPI/CC On Admission Date Seen by Provider: Feb 03, 2019 Time Seen by Provider: 10:30 CC: Debility following right total knee replacement uncomplicated by Dr. Byrnes POD # 1 HPI: This is a 78yoWM who is s/p uncomplicated right total knee replacement by Dr. Byrnes who is currently in need of intensive therapy in order to return home of which the last several years he went from using a can to a walker and then wheelchair bound for the past three years due to right knee pain and unable to ambulate. He does have all the assistive devices and wheelchair friendly house but he would like to improve him ambulation, improve the safety of his transfers and lessen the burden of care for his of 58 years. His PCP is Dr. Bach and Dr. Giraldo sees him after recently becoming established last week for a heart attack he had in 1995 and a cardiac murmur. (EST was normal). He is currently doing well and remains with a Anguiano catheter due to the inability to get out of bed so he would like to keep that in for a little while longer in order to prevent incontinence and other issues. He has not had a BM but is eating and drinking well. He is supposed to wear CPAP but is noncompliant and de nies wearing oxygen at home. At this current time pt pain is well controlled at a 3 currently. He has a CPM machine on board and I did update Dr. Byrnes on the fact that we would admit him to inpatient rehab to return to prior level of functioning or a little better in order to regain independence in ADLs and ambulation at home. 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 The pt has no new complaints at this time. Subjective/Events-last exam Patient was anxious last night so he was given a Xanax again UTI was being treated with Bactrim but then that was changed to Macrobid due to sensitivity on UCx Bowel movement treatment just does not seem to be getting the job done and his family brought in his chocolate Ex-Lax and he has been taking that so I ordered SSE and he agreed with that and I updated the nurse Lasix every other day ordered by Dr. Barclay and he wants that changed every day so we will confer with Dr. Enzo regarding that Incontinence occurs at times Check meds and labs Reviewed therapy notes Conferred with RN Objective Exam Vital Signs Vital Signs Date Time Temp Pulse Resp B/P (MAP) Pulse Ox O2 Delivery O2 Flow Rate FiO2 02/03/19 16:34 97.8 80 14 145/75 (98) 94 Room Air Capillary Refill : General Appearance: No Apparent Distress, WD/WN, Chronically ill HEENT: PERRL/EOMI, Normal ENT Inspection, Pharynx Normal Neck: Full Range of Motion, Normal Inspection, Non Tender, Supple Respiratory: Chest Non Tender, Lungs Clear, No Accessory Muscle Use, No Respiratory Distress, Decreased Breath Sounds Cardiovascular: Regular Rate, Rhythm, Systolic Murmur, Other (Systolic ejection murmor, 3/6 with radiation to carotids) Gastrointestinal: Normal Bowel Sounds, No Organomegaly, No Pulsatile Mass, Non Tender, Soft Rectal: Deferred Back: Normal Inspection, No CVA Tenderness Extremity: Normal Capillary Refill, Normal Inspection, Normal Range of Motion (except right leg), Non Tender, No Calf Tenderness, Pedal Edema Neurologic/Psychiatric: Alert, Oriented x3, No Motor/Sensory Deficits, Normal Mood/Affect, graphic art technician II-XII Norm as 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 FIM Transfers Therapy Code Descriptions/Definitions Functional [place] Measure: 0=Not Assessed/NA 4=Minimal Assistance 1=Total Assistance 5=Supervision or Setup 2=Maximal Assistance 6=Modified [place] 3=Moderate Assistance 7=Complete [place] Therapy Quality Codes: 6 Independent with activity with or without an assistive device 5 Patient requires set up or clean up by helper. Patient completes activity by themselves 4 Supervision or touching assist (CGA). [place] provide cues , steadying assist 3 The helper provides less than half the effort to complete the activity 2 The helper provides more than half the effort to complete the activity 1 Dependent. The helper does all the effort to complete an activity 7 Patient refused to complete or attempt activity 9 The patient did not perform the activity before the current illness or injury 88 Not attempted due to Medical conditions or safety concerns Transfers (B, C, W/C) (FIM): 1 Scootin Rollin Roll Left to Right (QC): 3 Supine to/from Sit: 4 Sit to/from Stand: 2 Sit to Lying (QC): 2 (max assist to get legs into bed and for trunk control) Sit to Stand (QC): 1 Chair/Rrd-mt-Dwcqy Xfer(QC): 1 Bed to/from Chair: 4 Car Transfer (QC): 88 (unsafe to attempt with sit to stand lift) Gait Training Does the Patient Walk?: No and Walking Goal IS indicated Gait (FIM): 0 (pt unable to come to a full stand to attempt ambulation; requires a mech sit to stand lift to stand up) Distance (FIM): 0=does not occure Walk 10 feet (QC): 88 Walk 50 ft with 2 Turns(QC): 88 Walk 150 ft (QC): 9 Walking 10ft/uneven surface-QC: 88 Gait Assistive Device: FWW Wheelchair Training Does the Pt Use a Wheelchair?: Yes Wheelchair (FIM): 6 Wheelchair Distance: 3=150 ft Distance: 150' Wheelchair Level of Assist: 6 Wheel 50 ft with 2 turns (QC): 6 Wheel 150 ft (QC): 6 Type of Wheelchair: Motorized Stair Training Stairs (FIM): 0 1 Step (curb) (QC): 88 4 Steps (QC): 88 12 Steps (QC): 88 Balance Picking up an Object (QC): 88 Mental Status/Objective Comprehension: 7 Expression: 7 Social Interaction: 7 Problem Solvin Memory: 7 ADL-Treatment Feedin Eating (QC): 6 Groomin (seated) Oral Hygiene (QC): 6 Bathin (pt dep secodnary to having to use sit to stand to wash buttock. pt able to perform 02/13 ) Bathing Location: L Arm, R Arm, L Upper Leg, R Upper Leg, L Lower Leg (including foot), R Lower Leg (including foot), Chest, Abdomen, Perineal Area Shower/Bathe Self (QC): 1 Upper Extremity Dressin (door puller shirt ) Upper Body Dressing (QC): 4 Lower Extremity Dressin (secodnary to using sit to stand to pull up pants. pt able to lean sit to sit to doff pants with CGA ) Lower Body Dressing (QC): 1 On/Off Footwear (QC): 1 Toiletin (Pt. issued toilet tongs and encouraged to rock side to side to attempt to cleanse leatha area. Pt. unable to do so effectively.) Toileting Hygiene (QC): 2 Toilet/Commode Transfer: 1 Toilet Transfer (QC): 1 Shower: 1 Assessment/Plan Assessment and Plan Assess & Plan/Chief Complaint A/P: IRF protocols BM regimen to be maintained Pain control Lovenox Consult Dr Giraldo is appreciated Monitor hypotension Home meds In/Out cath for retention still so consulting Dr Simran JEFFERSON on commode to help with BM Incision looks good Slept pretty well Lasix every 48 hours for edema along with wide YULI wraps but he wants the Lasix every day Macrobid for UTI (1) Status post total right knee replacement Status: Acute (2) Primary osteoarthritis of right knee Status: Chronic (3) Essential hypertension Status: Chronic (4) Constipation Status: Chronic Qualifiers: Constipation type: slow transit constipation Qualified Codes: K59.01 - Slow transit constipation (5) CAD (coronary artery disease) Status: Chronic Qualifiers: Coronary Disease-Associated Artery/Lesion type: [place] artery [place] vs. transplanted heart: [place] heart Associated angina: without angina Qualified Codes: I25.10 - Atherosclerotic heart disease of [place] coronary artery without angina pectoris (6) Hypothyroidism Status: Chronic Qualifiers: Hypothyroidism type: acquired Qualified Codes: E03.9 - Hypothyroidism, unspecified (7) Type II diabetes mellitus Status: Chronic Qualifiers: Diabetes mellitus superintendent container terminal insulin use: without usp use Diabetes mellitus complication status: with circulatory complication Diabetes mellitus complication detail: with other circulatory complications Qualified Codes: E11.59 - Type 2 diabetes mellitus with other circulatory complications (8) LILIAN (obstructive sleep apnea) Status: Chronic (9) Systolic murmur Status: Chronic (10) GERD without esophagitis Status: Chronic (11) Postoperative anemia Status: Acute (12) BPH (benign prostatic hyperplasia) Status: Chronic Qualifiers: Lower urinary tract symptom presence: unspecified whether lower urinary tract symptoms present Qualified Codes: N40.0 - Benign prostatic hyperplasia without lower urinary tract symptoms (13) Anguiano catheter in place Status: Acute (14) History of coronary artery stent placement Status: Chronic DM BERUMEN DO Feb 03, 2019 10:35
--- NOTE | 2019-02-03 12:49 | Physical Therapy Daily Note ---
PT Daily Note-Current Subjective (R) knee pain 5/10, (L) knee pain 5/10 when standing. Pain Numeric Pain Scale: 5-Moderate Pain Location: Right Location Body Site: Knee Pain Description: Ache, Dull Mental Status Patient Orientation: Person, Place, Time, Situation Transfers Therapy Code Descriptions/Definitions Functional [place] Measure: 0=Not Assessed/NA 4=Minimal Assistance 1=Total Assistance 5=Supervision or Setup 2=Maximal Assistance 6=Modified [place] 3=Moderate Assistance 7=Complete [place] Therapy Quality Codes: 6 Independent with activity with or without an assistive device 5 Patient requires set up or clean up by helper. Patient completes activity by themselves 4 Supervision or touching assist (CGA). [place] provide cues , steadying assist 3 The helper provides less than half the effort to complete the activity 2 The helper provides more than half the effort to complete the activity 1 Dependent. The helper does all the effort to complete an activity 7 Patient refused to complete or attempt activity 9 The patient did not perform the activity before the current illness or injury 88 Not attempted due to Medical conditions or safety concerns Transfers (B, C, W/C) (FIM): 2 Sit to/from Stand: 2 Weight Bearing Right Lower Extremity: Right Weight Bearing/Tolerated Left Lower Extremity: Left Full Weight Bearing Gait Training Does the Patient Walk?: No and Walking Goal IS indicated Treatments Functional activity for sit to stand to develop (B) LE strength to allow for progression to gait. Pt able to perform sit to stand 4x, with pt in standing 30-60sec each time. C/O grinding in (L) knee and soreness in (R) rectus femoris while standing. Assessment Current Status: Fair Progress Pt was able to stand with one person assist with AP pressure applied to (B) knees to assist with knee extension in standing. PT Short Term Goals Short Term Goals Time Frame: Feb 07, 2019 Transfers (B,C,W/C) (FIM): 4 Gait (FIM): 2 Distance (FIM): 1=up to 49 ft Gait Assistive Device: FWW Wheelchair (FIM): 6 Wheelchair distance (FIM): 3=150 ft Wheelchair Distance: 150' PT Jail Goals Jail Goals PT Jail Goals Time Frame: Feb 21, 2019 Transfers (B,C,W/C) (FIM): 5 Sit to Lying (QC): 6 Lying-Sitting on Side/Bed(QC): 6 Sit to Stand (QC): 6 Rollin Roll Left to Right (QC): 6 Chair/Ono-hf-Leiym Xfer(QC): 5 Car Transfer (QC): 4 Does the Patient Walk: No and Walking Goal IS indicated Gait (FIM): 2 Gait distance (FIM): 1=up to 49 ft Distance: 20 ft Walk 10 feet (QC): 6 Walk 10ft-Uneven Surface(QC): 4 Walk 50ft with 2 Turns (QC): 88 Walk 150 ft (QC): 88 Gait Assistive Device: FWW Does the Pt use WC or Scooter?: Yes Wheelchair (FIM): 6 Wheelchair distance (FIM): 3=150 ft Wheel 50 feet with 2 turns (QC: 6 Stairs (FIM): 0 1 Step (curb) (QC): 9 4 Steps (QC): 9 12 Steps (QC): 9 Picking up an Object (QC): 88 PT Plan Treatment/Plan Treatment Plan: Continue Plan of Care Treatment Plan: Bed Mobility, Education, Functional Activity Glenn, Functional Strength, Group Therapy, Gait, Safety, Therapeutic Exercise, Transfers Treatment Duration: Feb 21, 2019 Frequency: At least 5 of 7 days/Wk (IRF) Estimated Hrs Per Day: 1.5 hours per day Patient and/or Family Agrees t: Yes Time/GCodes Time In: 1130 Time Out: 1154 Total Billed Treatment Time: 24 Total Billed Treatment 1, fax2 24 MILLA MEANS PT Feb 03, 2019 12:49
--- NOTE | 2019-02-03 13:33 | NUR ---
Pt is off floor w his 2 daughters who have brought his lunch up to him, is eating downstairs in the cafeteria sitting area. Pt in his motorized w/c.
--- NOTE | 2019-02-03 15:59 | NUR ---
pt has returned to room from downstairs, used BSC, then transferred per sit to stand to bed, pt asking to take a nap & then have the SS enema.
[2019-02-03 16:34] VITALS: BP 145/75
--- NOTE | 2019-02-03 18:00 | NUR ---
SS Enema given by Terri Quinteros, PCT
[2019-02-03] MEDS: PANTOPRAZOLE 40 MG (PROTONIX) TAB PO SCH (18:06)
--- NOTE | 2019-02-03 18:40 | NUR ---
Pt had excellent results from SS enema as reported by RAFI Velarde.
[2019-02-03] MEDS: MELATONIN 3 MG TABLET PO PRN (19:56)
[2019-02-03] MEDS: ALPRAZolam 0.25 MG (XANAX) TAB PO PRN (22:38)
[2019-02-04] MEDS: HYDROcodone/APAP 10 MG/325 MG (LORTAB) TAB PO PRN ×2 (01:14→16:13)
[2019-02-04 05:45] VITALS: BP 144/72
[2019-02-04] MEDS: CATHETER FLUSH 10 ML SYR IV SCH ×3 (06:09→21:54)
[2019-02-04] MEDS: LEVOTHYROXINE 50 MCG (LEVOTHROID) TAB PO SCH (06:09)
[2019-02-04] MEDS: ENOXAPARIN 40 MG/0.4 ML (LOVENOX) SYR SC SCH ×2 (06:09→16:10)
[2019-02-04] MEDS: LEVOTHYROXINE 100 MCG (LEVOTHROID) TAB PO SCH (06:10)
[2019-02-04] MEDS: PREGABALIN 150 MG (LYRICA) CAPSULE PO SCH ×2 (06:10→21:53)
[2019-02-04] MEDS: ASPIRIN 81 MG CHEW (CHILDREN'S ASA) PO SCH (11:14)
[2019-02-04] MEDS: NITROFURANTOIN 100 MG (MACROBID) CAPSULE PO SCH ×2 (11:14→21:53)
[2019-02-04] MEDS: TAMSULOSIN 0.4 MG (FLOMAX) CAP PO SCH ×2 (11:14→21:53)
[2019-02-04] MEDS: FUROSEMIDE 20 MG (LASIX) TAB PO SCH (11:15)
[2019-02-04] MEDS: MICONAZOLE 2% POWDER (DESENEX AF) 90 GM TOP SCH ×2 (11:16→21:54)
[2019-02-04] MEDS: POLYETHYLENE GLYCOL 17 GM (MIRALAX) PACK PO SCH ×2 (11:21→21:53)
[2019-02-04] MEDS: SENNA W/DOCUSATE (SENOKOT S) TABLET PO SCH ×2 (11:22→21:53)
[2019-02-04] MEDS: BISACODYL 10 MG SUPP (DULCOLAX) PR SCH ×2 (11:23→21:44)
[2019-02-04] MEDS: KCL 10 MEQ TAB (MICRO K) PO SCH (11:29)
--- NOTE | 2019-02-04 13:28 | PM&R Progress Note ---
Subjective HPI/CC On Admission Date Seen by Provider: Feb 04, 2019 Time Seen by Provider: 11:15 CC: Debility following right total knee replacement uncomplicated by Dr. Byrnes POD # 1 HPI: This is a 78yoWM who is s/p uncomplicated right total knee replacement by Dr. Byrnes who is currently in need of intensive therapy in order to return home of which the last several years he went from using a can to a walker and then wheelchair bound for the past three years due to right knee pain and unable to ambulate. He does have all the assistive devices and wheelchair friendly house but he would like to improve him ambulation, improve the safety of his transfers and lessen the burden of care for his of 56 years. His PCP is Dr. Bach and Dr. Giraldo sees him after recently becoming established last week for a heart attack he had in 1995 and a cardiac murmur. (EST was normal). He is currently doing well and remains with a Anguiano catheter due to the inability to get out of bed so he would like to keep that in for a little while longer in order to prevent incontinence and other issues. He has not had a BM but is eating and drinking well. He is supposed to wear CPAP but is noncompliant and denies wearing oxygen at home. At this current time pt pain is well controlled at a 3 currently. He has a CPM machine on board and I did update Dr. Byrnes on the fact that we would admit him to inpatient rehab to return to prior level of functioning or a little better in order to regain independence in ADLs and ambulation at home. 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 The pt has no new complaints at this time. Subjective/Events-last exam No major complaints Soapsuds enema yesterday was a major success and ovary had 2 bowel movements today so severe constipation is now resolved once and for all Macrobid is maintained and tolerated well for UTI Pain is pretty well controlled Navigating around with Frank lifts and electric wheelchairs pretty well Has not required oxygen during the day anymore Conferred with RN Reviewed therapy notes Check meds and labs Review of Systems General: Fatigue Musculoskeletal: leg pain Objective Exam Vital Signs Vital Signs Date Time Temp Pulse Resp B/P (MAP) Pulse Ox O2 Delivery O2 Flow Rate FiO2 02/04/19 17:00 98.1 80 14 134/74 (94) 93 Room Air Capillary Refill : General Appearance: No Apparent Distress, WD/WN, Chronically ill HEENT: PERRL/EOMI, Normal ENT Inspection, Pharynx Normal Neck: Full Range of Motion, Normal Inspection, Non Tender, Supple Respiratory: Chest Non Tender, Lungs Clear, No Accessory Muscle Use, No Respiratory Distress, Decreased Breath Sounds Cardiovascular: Regular Rate, Rhythm, Systolic Murmur, Other (Systolic ejection murmor, 3/6 with radiation to carotids) Gastrointestinal: Normal Bowel Sounds, No Organomegaly, No Pulsatile Mass, Non Tender, Soft Rectal: Deferred Back: Normal Inspection, No CVA Tenderness Extremity: Normal Capillary Refill, Normal Inspection, Normal Range of Motion (except right leg), Non Tender, No Calf Tenderness, Pedal Edema Neurologic/Psychiatric: Alert, Oriented x3, No Motor/Sensory Deficits, Normal Mood/Affect, diamond cleaver II-XII Norm as 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 FIM Transfers Therapy Code Descriptions/Definitions Functional [place] Measure: 0=Not Assessed/NA 4=Minimal Assistance 1=Total Assistance 5=Supervision or Setup 2=Maximal Assistance 6=Modified [place] 3=Moderate Assistance 7=Complete [place] Therapy Quality Codes: 6 Independent with activity with or without an assistive device 5 Patient requires set up or clean up by helper. Patient completes activity by themselves 4 Supervision or touching assist (CGA). [place] provide cues , steadying assist 3 The helper provides less than half the effort to complete the activity 2 The helper provides more than half the effort to complete the activity 1 Dependent. The helper does all the effort to complete an activity 7 Patient refused to complete or attempt activity 9 The patient did not perform the activity before the current illness or injury 88 Not attempted due to Medical conditions or safety concerns Transfers (B, C, W/C) (FIM): 2 Scootin Rollin Roll Left to Right (QC): 3 Supine to/from Sit: 4 Sit to/from Stand: 2 Sit to Lying (QC): 2 (max assist to get legs into bed and for trunk control) Sit to Stand (QC): 1 Chair/Sbe-zo-Pabhm Xfer(QC): 1 Bed to/from Chair: 4 Car Transfer (QC): 88 (unsafe to attempt with sit to stand lift) Gait Training Does the Patient Walk?: No and Walking Goal IS indicated Gait (FIM): 0 (pt unable to come to a full stand to attempt ambulation; requires a [facility] sit to stand lift to stand up) Distance (FIM): 0=does not occure Walk 10 feet (QC): 88 Walk 50 ft with 2 Turns(QC): 88 Walk 150 ft (QC): 9 Walking 10ft/uneven surface-QC: 88 Gait Assistive Device: FWW Wheelchair Training Does the Pt Use a Wheelchair?: Yes Wheelchair (FIM): 6 Wheelchair Distance: 3=150 ft Distance: 150' Wheelchair Level of Assist: 6 Wheel 50 ft with 2 turns (QC): 6 Wheel 150 ft (QC): 6 Type of Wheelchair: Motorized Stair Training Stairs (FIM): 0 1 Step (curb) (QC): 88 4 Steps (QC): 88 12 Steps (QC): 88 Balance Picking up an Object (QC): 88 Mental Status/Objective Comprehension: 7 Expression: 7 Social Interaction: 7 Problem Solvin Memory: 7 ADL-Treatment Feedin Eating (QC): 6 Groomin (seated) Oral Hygiene (QC): 6 Bathin (pt dep secodnary to having to use sit to stand to wash buttock. pt able to perform 9/10 ) Bathing Location: L Arm, R Arm, L Upper Leg, R Upper Leg, L Lower Leg (including foot), R Lower Leg (including foot), Chest, Abdomen, Perineal Area Shower/Bathe Self (QC): 1 Upper Extremity Dressin (conductor pullman shirt ) Upper Body Dressing (QC): 4 Lower Extremity Dressin (secodnary to using sit to stand to pull up pants. pt able to lean sit to sit to doff pants with CGA ) Lower Body Dressing (QC): 1 On/Off Footwear (QC): 1 Toiletin (Pt. issued toilet tongs and encouraged to rock side to side to attempt to cleanse leatha area. Pt. unable to do so effectively.) Toileting Hygiene (QC): 2 Toilet/Commode Transfer: 1 Toilet Transfer (QC): 1 Shower: 1 Assessment/Plan Assessment and Plan Assess & Plan/Chief Complaint A/P: IRF protocols BM regimen to be maintained Pain control Lovenox Consult Dr Giraldo is appreciated Monitor hypotension Home meds In/Out cath for retention still so consulting Dr Khalil Incision looks good Slept pretty well Lasix every 48 hours for edema along with wide YULI wraps but he wants the Lasix every day Macrobid for UTI (1) Status post total right knee replacement Status: Acute (2) Primary osteoarthritis of right knee Status: Chronic (3) Essential hypertension Status: Chronic (4) Constipation Status: Chronic Qualifiers: Constipation type: slow transit constipation Qualified Codes: K59.01 - Slow transit constipation (5) CAD (coronary artery disease) Status: Chronic Qualifiers: Coronary Disease-Associated Artery/Lesion type: [place] artery [place] vs. transplanted heart: [place] heart Associated angina: without angina Qualified Codes: I25.10 - Atherosclerotic heart disease of [place] coronary artery without angina pectoris (6) Hypothyroidism Status: Chronic Qualifiers: Hypothyroidism type: acquired Qualified Codes: E03.9 - Hypothyroidism, unspecified (7) Type II diabetes mellitus Status: Chronic Qualifiers: Diabetes mellitus longterm insulin use: without hospice volunteer use Diabetes mellitus complication status: with circulatory complication Diabetes mellitus complication detail: with other circulatory complications Qualified Codes: E11.59 - Type 2 diabetes mellitus with other circulatory complications (8) LILIAN (obstructive sleep apnea) Status: Chronic (9) Systolic murmur Status: Chronic (10) GERD without esophagitis Status: Chronic (11) Postoperative anemia Status: Acute (12) BPH (benign prostatic hyperplasia) Status: Chronic Qualifiers: Lower urinary tract symptom presence: unspecified whether lower urinary tract symptoms present Qualified Codes: N40.0 - Benign prostatic hyperplasia without lower urinary tract symptoms (13) Anguiano catheter in place Status: Acute (14) History of coronary artery stent placement Status: Chronic DM BERUMEN DO Feb 04, 2019 13:28
[2019-02-04] MEDS: PANTOPRAZOLE 40 MG (PROTONIX) TAB PO SCH (16:10)
[2019-02-04 17:00] VITALS: BP 134/74
[2019-02-04] MEDS: ALPRAZolam 0.25 MG (XANAX) TAB PO PRN (21:54)
[2019-02-05] MEDS: HYDROcodone/APAP 10 MG/325 MG (LORTAB) TAB PO PRN ×3 (04:38→23:23)
[2019-02-05] MEDS: PREGABALIN 150 MG (LYRICA) CAPSULE PO SCH ×2 (05:16→20:58)
[2019-02-05] MEDS: LEVOTHYROXINE 50 MCG (LEVOTHROID) TAB PO SCH (05:16)
[2019-02-05] MEDS: LEVOTHYROXINE 100 MCG (LEVOTHROID) TAB PO SCH (05:17)
[2019-02-05] MEDS: ENOXAPARIN 40 MG/0.4 ML (LOVENOX) SYR SC SCH ×2 (05:17→17:47)
[2019-02-05] MEDS: CATHETER FLUSH 10 ML SYR IV SCH ×3 (05:19→22:09)
[2019-02-05 05:39] LABS: BASOPHILS # (AUTO) 0.1 10^3/uL (0.0-0.1); BASOPHILS % (AUTO) 1 % (0-10); EOSINOPHILS # (AUTO) 0.3 10^3/uL (0.0-0.3); EOSINOPHILS % (AUTO) 4 % (0-10); HEMATOCRIT 32 % (40-54); LYMPHOCYTES # (AUTO) 1.1 X 10^3 (1.0-4.0); LYMPHOCYTES % (AUTO) 14 % (12-44); MEAN CORPUSCULAR HEMOGLOBIN 28 PG (25-34); MEAN CORPUSCULAR HGB CONC 31 G/DL (32-36); MEAN CORPUSCULAR VOLUME 89 FL (80-99); MEAN PLATELET VOLUME 11.2 FL (7.4-10.4); MONOCYTES # (AUTO) 0.6 X 10^3 (0.0-1.0); MONOCYTES % (AUTO) 8 % (0-12); NEUTROPHILS # (AUTO) 5.6 X 10^3 (1.8-7.8); NEUTROPHILS % (AUTO) 73 % (42-75); PLATELET COUNT 377 10^3/uL (130-400); RED CELL DISTRIBUTION WIDTH 18.2 % (10.0-14.5); WHITE BLOOD COUNT 7.7 10^3/uL (4.3-11.0)
[2019-02-05 05:40] VITALS: BP 133/68
[2019-02-05 05:59] LABS: ALANINE AMINOTRANSFERASE 30 U/L (0-55); ALBUMIN 3.2 GM/DL (3.2-4.5); ALKALINE PHOSPHATASE 94 U/L (40-136); BILIRUBIN,TOTAL 0.6 MG/DL (0.1-1.0); BUN/CREATININE RATIO 14; CALCIUM 9.1 MG/DL (8.5-10.1); CARBON DIOXIDE 23 MMOL/L (21-32); CHLORIDE 106 MMOL/L (98-107); CREATININE SERUM 0.76 MG/DL (0.60-1.30); GFR ESTIMATED > 60; GLUCOSE 119 MG/DL (70-105); SODIUM 140 MMOL/L (135-145); TOTAL PROTEIN 6.5 GM/DL (6.4-8.2)
[2019-02-05] MEDS: NITROFURANTOIN 100 MG (MACROBID) CAPSULE PO SCH ×2 (09:05→20:59)
[2019-02-05] MEDS: TAMSULOSIN 0.4 MG (FLOMAX) CAP PO SCH ×2 (09:05→20:58)
[2019-02-05] MEDS: SENNA W/DOCUSATE (SENOKOT S) TABLET PO SCH ×2 (09:05→20:58)
[2019-02-05] MEDS: ASPIRIN 81 MG CHEW (CHILDREN'S ASA) PO SCH (09:05)
[2019-02-05] MEDS: DOCUSATE SODIUM 100 MG (COLACE) CAP PO PRN (09:05)
[2019-02-05] MEDS: BISACODYL 10 MG SUPP (DULCOLAX) PR SCH ×2 (09:06→21:02)
[2019-02-05] MEDS: POLYETHYLENE GLYCOL 17 GM (MIRALAX) PACK PO SCH ×2 (09:06→20:59)
[2019-02-05] MEDS: MICONAZOLE 2% POWDER (DESENEX AF) 90 GM TOP SCH ×2 (09:06→21:00)
--- NOTE | 2019-02-05 10:00 | Physical Therapy Daily Note ---
PT Daily Note-Current Subjective Patient in power chair pre tx, agrees to PT, has no complaints of pain at rest. Will be co-treating with OT due to poor patient strength, mobility, balance, the inability to ambulate, the need to coordinate UE and LE during activity. Patient would like to try to ambulate using his rolling walker today. Appearance Patient in power chair post tx to finish up with OT. Mental Status Patient Orientation: Person, Place, Situation Transfers Therapy Code Descriptions/Definitions Functional [place] Measure: 0=Not Assessed/NA 4=Minimal Assistance 1=Total Assistance 5=Supervision or Setup 2=Maximal Assistance 6=Modified [place] 3=Moderate Assistance 7=Complete [place] Therapy Quality Codes: 6 Independent with activity with or without an assistive device 5 Patient requires set up or clean up by helper. Patient completes activity by themselves 4 Supervision or touching assist (CGA). [place] provide cues , steadying assist 3 The helper provides less than half the effort to complete the activity 2 The helper provides more than half the effort to complete the activity 1 Dependent. The helper does all the effort to complete an activity 7 Patient refused to complete or attempt activity 9 The patient did not perform the activity before the current illness or injury 88 Not attempted due to Medical conditions or safety concerns Transfers (B, C, W/C) (FIM): 3 Sit to/from Stand: 3 Patient stood in the parallel bars x3 for about 30 seconds each time. Weight Bearing Right Lower Extremity: Right Weight Bearing/Tolerated Left Lower Extremity: Left Full Weight Bearing Gait Training Gait (FIM): 1 Distance: 8'x3 Gait Level of Assist: 4 Gait Assistive Device: Parallel Bars Wheelchair follow, patient is able to take steps in the parallel bars but cannot stand and ambulate using a rolling walker. Exercises LAQ right side for 5 min, stretching right knee in extension and flexion Treatments standing, ambulation, LE exercise and ROM Assessment Current Status: Fair Progress Patient was able to ambulate in the parallel bars which he has not been able to previously. 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 PT [facility] Goals Time Frame: Feb 21, 2019 Transfers (B,C,W/C) (FIM): 5 Sit to Lying (QC): 6 Lying-Sitting on Side/Bed(QC): 6 Sit to Stand (QC): 6 Rollin Roll Left to Right (QC): 6 Chair/Gva-dq-Wbisk Xfer(QC): 5 Car Transfer (QC): 4 Does the Patient Walk: No and Walking Goal IS indicated Gait (FIM): 2 Gait distance (FIM): 1=up to 49 ft Distance: 20 ft Walk 10 feet (QC): 6 Walk 10ft-Uneven Surface(QC): 4 Walk 50ft with 2 Turns (QC): 88 Walk 150 ft (QC): 88 Gait Assistive Device: FWW Does the Pt use WC or Scooter?: Yes Wheelchair (FIM): 6 Wheelchair distance (FIM): 3=150 ft Wheel 50 feet with 2 turns (QC: 6 Stairs (FIM): 0 1 Step (curb) (QC): 9 4 Steps (QC): 9 12 Steps (QC): 9 Picking up an Object (QC): 88 PT Plan Problem List Problem List: Activity Tolerance, Functional Strength, Safety, Balance, Gait, Transfer, Bed Mobility, ROM Treatment/Plan Treatment Plan: Continue Plan of Care Treatment Plan: Bed Mobility, Education, Functional Activity Glenn, Functional Strength, Group Therapy, Gait, Safety, Therapeutic Exercise, Transfers Treatment Duration: Feb 21, 2019 Frequency: At least 5 of 7 days/Wk (IRF) Estimated Hrs Per Day: 1.5 hours per day Patient and/or Family Agrees t: Yes Safety Risks/Education Patient Education: Gait Training, Transfer Techniques, Correct Positioning, Safety Issues Teaching Recipient: Patient Teaching Methods: Demonstration, Discussion Response to Teaching: Reinforcement Needed Time/GCodes Time In: 0900 Time Out: 1000 Total Billed Treatment Time: 60 Total Billed Treatment 1 visit FA 45' EX 15' PT worked on transfers, standing, ambulation, LE exercise and ROM, OT assisted with standing and ambulation, UE exercise, UE positioning during activity MICHELLE FUNES PT Feb 05, 2019 09:59
--- NOTE | 2019-02-05 10:09 | PM&R Progress Note ---
Subjective HPI/CC On Admission Date Seen by Provider: Feb 05, 2019 Time Seen by Provider: 10:45 CC: Debility following right total knee replacement uncomplicated by Dr. Byrnes POD # 1 HPI: This is a 78yoWM who is s/p uncomplicated right total knee replacement by Dr. Byrnes who is currently in need of intensive therapy in order to return home of which the last several years he went from using a can to a walker and then wheelchair bound for the past three years due to right knee pain and unable to ambulate. He does have all the assistive devices and wheelchair friendly house but he would like to improve him ambulation, improve the safety of his transfers and lessen the burden of care for his of 58 years. His PCP is Dr. Bach and Dr. Giraldo sees him after recently becoming established last week for a heart attack he had in 1995 and a cardiac murmur. (EST was normal). He is currently doing well and remains with a Anguiano catheter due to the inability to get out of bed so he would like to keep that in for a little while longer in order to prevent incontinence and other issues. He has not had a BM but is e ating and drinking well. He is supposed to wear CPAP but is noncompliant and denies wearing oxygen at home. At this current time pt pain is well controlled at a 3 currently. He has a CPM machine on board and I did update Dr. Byrnes on the fact that we would admit him to inpatient rehab to return to prior level of functioning or a little better in order to regain independence in ADLs and ambulation at home. 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 The pt has no new complaints at this time. Subjective/Events-last exam Hemoglobin stable at 10 Decreasing Lortab due to drowsiness and altered mental status when he talks to the daughter at home when he takes 2 Once to start taking his Vesicare or Myrbetriq but Dr. Khalil has stopped those due to the urinary retention he was having so will need to obtain approval from him Incontinence at times at night Getting around in his electric wheelchair pretty well Now that his bowels are moving he is doing much better Macrobid tolerated Wide yuli wraps are really helping him Has not required oxygen during the day anymore Conferred with RN Reviewed therapy notes Check meds and labs Review of Systems General: Fatigue Cardiovascular: Edema Genitourinary: Incontinence Objective Exam Vital Signs Vital Signs Date Time Temp Pulse Resp B/P (MAP) Pulse Ox O2 Delivery O2 Flow Rate FiO2 02/05/19 05:40 97.5 85 18 133/68 (89) 96 Room Air Capillary Refill : General Appearance: No Apparent Distress, WD/WN, Chronically ill HEENT: PERRL/EOMI, Normal ENT Inspection, Pharynx Normal Neck: Full Range of Motion, Normal Inspection, Non Tender, Supple Respiratory: Chest Non Tender, Lungs Clear, No Accessory Muscle Use, No Respiratory Distress, Decreased Breath Sounds Cardiovascular: Regular Rate, Rhythm, Systolic Murmur, Other (Systolic ejection murmor, 3/6 with radiation to carotids) Gastrointestinal: Normal Bowel Sounds, No Organomegaly, No Pulsatile Mass, Non Tender, Soft Rectal: Deferred Back: Normal Inspection, No CVA Tenderness Extremity: Normal Capillary Refill, Normal Inspection, Normal Range of Motion (except right leg), Non Tender, No Calf Tenderness, Pedal Edema Neurologic/Psychiatric: Alert, Oriented x3, No Motor/Sensory Deficits, Normal Mood/Affect, die reamer II-XII Norm as Tested, Sensory Deficit (lower extremiteis with neuropathy) Skin: Normal Color, Warm/Dry Lymphatic: No Adenopathy Results/Procedures Lab Laboratory Tests 02/05/19 05:32 Patient resulted labs reviewed. FIM Transfers Therapy Code Descriptions/Definitions Functional [place] Measure: 0=Not Assessed/NA 4=Minimal Assistance 1=Total Assistance 5=Supervision or Setup 2=Maximal Assistance 6=Modified [place] 3=Moderate Assistance 7=Complete [place] Therapy Quality Codes: 6 Independent with activity with or without an assistive device 5 Patient requires set up or clean up by helper. Patient completes activity by themselves 4 Supervision or touching assist (CGA). [place] provide cues , steadying assist 3 The helper provides less than half the effort to complete the activity 2 The helper provides more than half the effort to complete the activity 1 Dependent. The helper does all the effort to complete an activity 7 Patient refused to complete or attempt activity 9 The patient did not perform the activity before the current illness or injury 88 Not attempted due to Medical conditions or safety concerns Transfers (B, C, W/C) (FIM): 3 Scootin Rollin Roll Left to Right (QC): 3 Supine to/from Sit: 4 Sit to/from Stand: 3 Sit to Lying (QC): 2 (max assist to get legs into bed and for trunk control) Sit to Stand (QC): 1 Chair/Xjw-kg-Yzfss Xfer(QC): 1 Bed to/from Chair: 4 Car Transfer (QC): 88 (unsafe to attempt with sit to stand lift) Gait Training Does the Patient Walk?: No and Walking Goal IS indicated Gait (FIM): 1 Distance (FIM): 0=does not occure Distance: 8'x3 Walk 10 feet (QC): 88 Walk 50 ft with 2 Turns(QC): 88 Walk 150 ft (QC): 9 Walking 10ft/uneven surface-QC: 88 Gait Level of Assist: 4 Gait Assistive Device: Parallel Bars Wheelchair Training Does the Pt Use a Wheelchair?: Yes Wheelchair (FIM): 6 Wheelchair Distance: 3=150 ft Distance: 150' Wheelchair Level of Assist: 6 Wheel 50 ft with 2 turns (QC): 6 Wheel 150 ft (QC): 6 Type of Wheelchair: Motorized Stair Training Stairs (FIM): 0 1 Step (curb) (QC): 88 4 Steps (QC): 88 12 Steps (QC): 88 Balance Picking up an Object (QC): 88 Mental Status/Objective Comprehension: 7 Expression: 7 Social Interaction: 7 Problem Solvin Memory: 7 ADL-Treatment Feedin Eating (QC): 6 Groomin (seated) Oral Hygiene (QC): 6 Bathin (pt dep secodnary to having to use sit to stand to wash buttock. pt able to perform 02/13 ) Bathing Location: L Arm, R Arm, L Upper Leg, R Upper Leg, L Lower Leg (including foot), R Lower Leg (including foot), Chest, Abdomen, Perineal Area Shower/Bathe Self (QC): 1 Upper Extremity Dressin (trap puller shirt ) Upper Body Dressing (QC): 4 Lower Extremity Dressin (secodnary to using sit to stand to pull up pants. pt able to lean sit to sit to doff pants with CGA ) Lower Body Dressing (QC): 1 On/Off Footwear (QC): 1 Toiletin (Pt. issued toilet tongs and encouraged to rock side to side to attempt to cleanse leatha area. Pt. unable to do so effectively.) Toileting Hygiene (QC): 2 Toilet/Commode Transfer: 1 Toilet Transfer (QC): 1 Shower: 1 Assessment/Plan Assessment and Plan Assess & Plan/Chief Complaint A/P: IRF protocols BM regimen to be maintained to prevent severe constipation like he had recently Pain control but minimize to prevent overdose Lovenox maintained Consult Dr Giraldo is appreciated Monitor hypotension but appears improved Home meds In/Out cath for retention still so consulting Dr Khalil Incision looks good Slept pretty well Lasix every 48 hours for edema along with wide YULI wraps but he wants the Lasix every day Macrobid for UTI Vesicare and Mybetriq per Dr Khalil (1) Status post total right knee replacement Status: Acute (2) Primary osteoarthritis of right knee Status: Chronic (3) Essential hypertension Status: Chronic (4) Constipation Status: Chronic Qualifiers: Constipation type: slow transit constipation Qualified Codes: K59.01 - Slo w transit constipation (5) CAD (coronary artery disease) Status: Chronic Qualifiers: Coronary Disease-Associated Artery/Lesion type: [place] artery [place] vs. transplanted heart: [place] heart Associated angina: without angina Qualified Codes: I25.10 - Atherosclerotic heart disease of [place] coronary artery without angina pectoris (6) Hypothyroidism Status: Chronic Qualifiers: Hypothyroidism type: acquired Qualified Codes: E03.9 - Hypothyroidism, unspecified (7) Type II diabetes mellitus Status: Chronic Qualifiers: Diabetes mellitus terminal carman insulin use: without [facility] use Diabetes mellitus complication status: with circulatory complication Diabetes mellitus complication detail: with other circulatory complications Qualified Codes: E11.59 - Type 2 diabetes mellitus with other circulatory complications (8) LILIAN (obstructive sleep apnea) Status: Chronic (9) Systolic murmur Status: Chronic (10) GERD without esophagitis Status: Chronic (11) Postoperative anemia Status: Acute (12) BPH (benign prostatic hyperplasia) Status: Chronic Qualifiers: Lower urinary tract symptom presence: unspecified whether lower urinary tract symptoms present Qualified Codes: N40.0 - Benign prostatic hyperplasia without lower urinary tract symptoms (13) Anguiano catheter in place Status: Acute (14) History of coronary artery stent placement Status: Chronic DM BERUMEN DO Feb 05, 2019 10:09
--- NOTE | 2019-02-05 10:23 | Occupational Ther Daily Note ---
OT Current Status-Daily Note Subjective pt sitting in power w/c upon OT/ PT arrival. pt agreed to TX session. co treatment with PT secondary of complexity of pt deficits requiring skills of both disciplines, poor patient strength, mobility, balance, and ability to coordinate UE and LE during activity. pt reports no pain. Mental Status/Objective Therapy Code Descriptions/Definitions Functional [place] Measure: 0=Not Assessed/NA 4=Minimal Assistance 1=Total Assistance 5=Supervision or Setup 2=Maximal Assistance 6=Modified [place] 3=Moderate Assistance 7=Complete [place] ADL-Treatment Therapy Code Descriptions/Definitions Functional [place] Measure: 0=Not Assessed/NA 4=Minimal Assistance 1=Total Assistance 5=Supervision or Setup 2=Maximal Assistance 6=Modified [place] 3=Moderate Assistance 7=Complete [place] Therapy Quality Codes: 6 Independent with activity with or without an assistive device 5 Patient requires set up or clean up by helper. Patient completes activity by themselves 4 Supervision or touching assist (CGA). [place] provide cues , steadying assist 3 The helper provides less than half the effort to complete the activity 2 The helper provides more than half the effort to complete the activity 1 Dependent. The helper does all the effort to complete an activity 7 Patient refused to complete or attempt activity 9 The patient did not perform the activity before the current illness or injury 88 Not attempted due to Medical conditions or safety concerns Transfers (B, C, W/C) (FIM): 1 Other Treatment pt and daughter stated concerns of pt not ambulating/ transferring indep;ly. pt appeared agitated with therapy. pt and family education on progress pt has made and purpose of rehab. all questions and concerns answered. pt perform 3 sit to stand with MOD A standing for 30 seconds each time. pt then demo ability to perform functional mobility 8 ft X3 with Wheelchair follow in parallel bars. pt attempt sit to stand with RW but unsuccessful. OT focus on UE placement and sequecing, while OT focus on LE positioning and gross movement. OT individual: pt then perform UE/ LE ex using 3# dumbbells all planes 15X2. pt then perform UBE 16 minutes with 25WATT to increase activity tolerance for daily activities. post OT session, pt MOD I with electric w/c in common area. NSG away. Education OT Patient Education: Correct positioning, Energy conservation, Exercise program, Home exercise program, Progress toward Goal/Update tx plan, Purpose of tx/functional activities, Safety issues, Transfer techniques Teaching Recipient: Patient Teaching Methods: Demonstration, Discussion Response to Teaching: Verbalize Understanding, Return Demonstration OT Short Term Goals Short Term Goals Time Frame: Jan 31, 2019 Eating(FIM): 5 Grooming(FIM): 5 Bathing(FIM): 4 Upper Body Dressing(FIM): 4 Lower Body Dressing(FIM): 4 Toileting(FIM): 3 Transfers (B,C,W/C) (FIM): 4 Toilet/Commode Transfer(FIM): 4 Shower Transfer(FIM): 4 1=Demonstrate adherence to instructed precautions during ADL tasks. 2=Patient will verbalize/demonstrate understanding of assistive devices/modifications for ADL. 3=Patient will improve strength/tolerance for activity to enable patient to perform ADL's. OT [facility] Goals [facility] Goals Time Frame: Feb 07, 2019 Eating (FIM): 6 Eating (QC): 6 Groomin Oral Hygiene (QC): 6 Bathing(FIM): 4 Shower/Bathe Self (QC): 4 Upper Body Dressing(FIM): 5 Upper Body Dressing (QC): 4 Lower Body Dressing(FIM): 5 Lower Body Dressing (QC): 4 On/Off Footwear (QC): 4 Toileting(FIM): 5 Toileting Hygiene (QC): 4 Transfers (B,C,W/C) (FIM): 5 Toilet/Commode Transfer(FIM): 5 Toilet/Commode Transfer (QC): 4 Shower Transfer(FIM): 4 Additional Goals: 1-Demonstrate ADL Tasks, 2-Verbalize Understanding, 3- ImproveStrength/[place] 1=Demonstrate adherence to instructed precautions during ADL tasks. 2=Patient will verbalize/demonstrate understanding of assistive devices/modifications for ADL. 3=Patient will improve strength/tolerance for activity to enable patient to perform ADL's. OT Education/Plan Problem List/Assessment Assessment: Decreased Activ Tolerance, Decreased Safety Aware, Decreased UE Strength, Dependent Transfers, Impaired Bed Mobility, Impaired Coordination, Impaired Funct Balance, Impaired I ADL's, Impaired Self-Care Skills Discharge Recommendations Plan/Recommendations: Continue POC Treatment Plan/Plan of Care Treatment,Training & Education: Yes Patient would benefit from OT for education, treatment and training to promote independence in ADL's, mobility, safety and/or upper extremity function for ADL's. Plan of Care: ADL Retraining, Functional Mobility, Group Exercise/Act as Ind, UE Funct Exercise/Act Treatment Duration: Feb 07, 2019 Frequency: At least 5 of 7 days/Wk (IRF) Estimated Hrs Per Day: 1.5 hours per day Agreement: Yes Rehab Potential: Fair Time/GCodes Start Time: 09:00 Stop Time: 10:30 Billed Treatment Time FA 90 minutes, 6 units DARIUS CHAU OT Feb 05, 2019 10:23
--- NOTE | 2019-02-05 13:10 | Physical Therapy Daily Note ---
PT Daily Note-Current Subjective Patient in power chair pre tx, agrees to PT, has 4/10 pain in right knee. Appearance Patient in power chair post tx, driving around on his own. Mental Status Patient Orientation: Person, Place, Situation Transfers Therapy Code Descriptions/Definitions Functional [place] Measure: 0=Not Assessed/NA 4=Minimal Assistance 1=Total Assistance 5=Supervision or Setup 2=Maximal Assistance 6=Modified [place] 3=Moderate Assistance 7=Complete [place] Therapy Quality Codes: 6 Independent with activity with or without an assistive device 5 Patient requires set up or clean up by helper. Patient completes activity by themselves 4 Supervision or touching assist (CGA). [place] provide cues , steadying assist 3 The helper provides less than half the effort to complete the activity 2 The helper provides more than half the effort to complete the activity 1 Dependent. The helper does all the effort to complete an activity 7 Patient refused to complete or attempt activity 9 The patient did not perform the activity before the current illness or injury 88 Not attempted due to Medical conditions or safety concerns Sit to/from Stand: 3 Weight Bearing Right Lower Extremity: Right Weight Bearing/Tolerated Left Lower Extremity: Left Full Weight Bearing Gait Training Gait (FIM): 1 Distance: 8'x3 Gait Level of Assist: 4 Gait Persons Needed: 1 Gait Assistive Device: Parallel Bars min assist after standing, flexed knees bilaterally, short steps, bears most of the weight on his arms Treatments standing, ambulation Assessment Current Status: Fair Progress improved ambulation PT Short Term Goals Short Term Goals Time Frame: Feb 07, 2019 Transfers (B,C,W/C) (FIM): 4 Gait (FIM): 2 Distance (FIM): 1=up to 49 ft Gait Assistive Device: FWW Wheelchair (FIM): 6 Wheelchair distance (FIM): 3=150 ft Wheelchair Distance: 150' PT [facility] Go[facility] Goals PT [place] Goals Time Frame: Feb 21, 2019 Transfers (B,C,W/C) (FIM): 5 Sit to Lying (QC): 6 Lying-Sitting on Side/Bed(QC): 6 Sit to Stand (QC): 6 Rollin Roll Left to Right (QC): 6 Chair/Ifn-oz-Hhkzw Xfer(QC): 5 Car Transfer (QC): 4 Does the Patient Walk: No and Walking Goal IS indicated Gait (FIM): 2 Gait distance (FIM): 1=up to 49 ft Distance: 20 ft Walk 10 feet (QC): 6 Walk 10ft-Uneven Surface(QC): 4 Walk 50ft with 2 Turns (QC): 88 Walk 150 ft (QC): 88 Gait Assistive Device: FWW Does the Pt use WC or Scooter?: Yes Wheelchair (FIM): 6 Wheelchair distance (FIM): 3=150 ft Wheel 50 feet with 2 turns (QC: 6 Stairs (FIM): 0 1 Step (curb) (QC): 9 4 Steps (QC): 9 12 Steps (QC): 9 Picking up an Object (QC): 88 PT Plan Problem List Problem List: Activity Tolerance, Functional Strength, Safety, Balance, Gait, Transfer, Bed Mobility, ROM Treatment/Plan Treatment Plan: Continue Plan of Care Treatment Plan: Bed Mobility, Education, Functional Activity [place], Functional Strength, Group Therapy, Gait, Safety, Therapeutic Exercise, Transfers Treatment Duration: Feb 21, 2019 Frequency: At least 5 of 7 days/Wk (IRF) Estimated Hrs Per Day: 1.5 hours per day Patient and/or Family Agrees t: Yes Safety Risks/Education Patient Education: Gait Training, Transfer Techniques, Correct Positioning, Safety Issues Teaching Recipient: Patient Teaching Methods: Demonstration, Discussion Response to Teaching: Reinforcement Needed Time/GCodes Time In: 1245 Time Out: 1315 Total Billed Treatment Time: 30 Total Billed Treatment 1 visit FA 10' GT 20' MICHELLE FUNES PT Feb 05, 2019 13:10
--- NOTE | 2019-02-05 16:06 | NUR ---
Call to Dr. Khalil per request of pt, & dgtr, & asked if pt can take his home meds of Myrbetriq 50 mg daily in AM, & Vesicare 5 mg daily in evng instead of the Flomax that is currently on ? Dr. Khalil states, "no, don't start it yet, wait until I get there in the morning & see him." Notified pt, & dgtr. Pt had reported that he is inct of urine during the night, & that he didn't get much sleep last night since he had to be changed several times.
[2019-02-05 17:00] VITALS: BP 133/72
[2019-02-05] MEDS: PANTOPRAZOLE 40 MG (PROTONIX) TAB PO SCH (17:47)
--- NOTE | 2019-02-05 19:12 | NUR ---
bedside report received from REBECCA LOGAN, assume care of pt
--- NOTE | 2019-02-05 19:58 | NUR ---
pt c/o pain level 4/10, requests only 1 Lortab 10 po
--- NOTE | 2019-02-05 20:00 | NUR ---
assessments & interventions completed, see assessments & interventions, pt refused Dulcolax suppository, Senokot & Desenex power, did take miralax
--- NOTE | 2019-02-05 21:10 | NUR ---
rates pain at 2/10 on numeric scale
[2019-02-05] MEDS: ALPRAZolam 0.25 MG (XANAX) TAB PO PRN (22:07)
--- NOTE | 2019-02-05 22:07 | NUR ---
requests his xanax .25mg & given
--- NOTE | 2019-02-05 23:23 | NUR ---
c/o pain level /10 Lortab 10 2 tabs po given
--- NOTE | 2019-02-06 00:05 | NUR ---
rates pain at 2/10 on numeric scale
--- NOTE | 2019-02-06 00:10 | NUR ---
bladder scan showed 217ml
--- NOTE | 2019-02-06 00:35 | NUR ---
up to W/C with sit to stand states can not sleep
[2019-02-06] MEDS: CATHETER FLUSH 10 ML SYR IV SCH ×3 (06:00→21:03)
[2019-02-06 06:03] VITALS: BP 119/66
[2019-02-06] MEDS: LEVOTHYROXINE 50 MCG (LEVOTHROID) TAB PO SCH (06:20)
[2019-02-06] MEDS: LEVOTHYROXINE 100 MCG (LEVOTHROID) TAB PO SCH (06:20)
[2019-02-06] MEDS: ENOXAPARIN 40 MG/0.4 ML (LOVENOX) SYR SC SCH ×2 (06:20→17:14)
[2019-02-06] MEDS: PREGABALIN 150 MG (LYRICA) CAPSULE PO SCH ×2 (06:20→20:54)
--- NOTE | 2019-02-06 07:15 | NUR ---
bedside report given to CIRILO LOGAN
[2019-02-06] MEDS: BISACODYL 10 MG SUPP (DULCOLAX) PR SCH ×2 (07:48→16:22)
[2019-02-06] MEDS ORDERED: PATIENT MAY USE OWN MEDS, ALL MC SCH (08:45)
--- NOTE | 2019-02-06 08:55 | Progress Note - Urology ---
Progress Note-Urology Progress Notes/Assess & Plan Progress/Assessment & Plan VOIDING WELL BUT HAS SX OF WET OAB. WANTS HIS MEDICINES. BROUGHT THEM FROM HOME . PLAN RESUME AND OBSERVE VOIDING Final Diagnosis URINE RETENTION AND WET OAB FANG MCMILLAN MD Feb 06, 2019 08:55
[2019-02-06] MEDS: POLYETHYLENE GLYCOL 17 GM (MIRALAX) PACK PO SCH ×2 (09:00→16:22)
[2019-02-06] MEDS: SENNA W/DOCUSATE (SENOKOT S) TABLET PO SCH ×2 (09:00→16:22)
[2019-02-06] MEDS: NITROFURANTOIN 100 MG (MACROBID) CAPSULE PO SCH ×2 (09:17→20:54)
[2019-02-06] MEDS: ASPIRIN 81 MG CHEW (CHILDREN'S ASA) PO SCH (09:17)
[2019-02-06] MEDS: FUROSEMIDE 20 MG (LASIX) TAB PO SCH (09:17)
[2019-02-06] MEDS: TAMSULOSIN 0.4 MG (FLOMAX) CAP PO SCH ×2 (09:18→20:54)
[2019-02-06] MEDS: KCL 10 MEQ TAB (MICRO K) PO SCH (09:18)
[2019-02-06] MEDS: MICONAZOLE 2% POWDER (DESENEX AF) 90 GM TOP SCH ×2 (09:19→21:03)
--- NOTE | 2019-02-06 09:51 | PM&R Progress Note ---
Subjective HPI/CC On Admission Date Seen by Provider: Feb 06, 2019 Time Seen by Provider: 09:00 CC: Debility following right total knee replacement uncomplicated by Dr. Byrnes POD # 1 HPI: This is a 78yoWM who is s/p uncomplicated right total knee replacement by Dr. Byrnes who is currently in need of intensive therapy in order to return home of which the last several years he went from using a can to a walker and then wheelchair bound for the past three years due to right knee pain and unable to ambulate. He does have all the assistive devices and wheelchair friendly house but he would like to improve him ambulation, improve the safety of his transfers and lessen the burden of care for his of 58 years. His PCP is Dr. Bach and Dr. Giraldo sees him after recently becoming established last week for a heart attack he had in 1995 and a cardiac murmur. (EST was normal). He is currently doing well and remains with a Anguiano catheter due to the inability to get out of bed so he would like to keep that in for a little while longer in order to prevent incontinence and other issues. He has not had a BM but is eating and drinking well. He is supposed to wear CPAP but is noncompliant and denies wearing oxygen at home. At this current time pt pain is well controlled at a 3 currently. He has a CPM machine on board and I did update Dr. Byrnes on the fact that we would admit him to inpatient rehab to return to prior level of functioning or a little better in order to regain independence in ADLs and ambulation at home. 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 The pt has no new complaints at this time. Subjective/Events-last exam Dr. Khalil was consulted and he will restart Mybetriq and Vesicare. Dr. Byrnes will obtain follow-up for him. No issues. Navigating with electric wheelchair. Improving independence of ADLs. Macrobid tolerated Wide yuli wraps are really helping him Has not required oxygen during the day anymore Conferred with RN Reviewed therapy notes Check meds and labs Review of Systems Genitourinary: Incontinence, Retention Musculoskeletal: leg pain Objective Exam Vital Signs Vital Signs Date Time Temp Pulse Resp B/P (MAP) Pulse Ox O2 Delivery O2 Flow Rate FiO2 02/06/19 17:30 98.1 86 18 145/71 (95) 95 Room Air Capillary Refill : General Appearance: No Apparent Distress, WD/WN, Chronically ill HEENT: PERRL/EOMI, Normal ENT Inspection, Pharynx Normal Neck: Full Range of Motion, Normal Inspection, Non Tender, Supple Respiratory: Chest Non Tender, Lungs Clear, No Accessory Muscle Use, No Respi ratory Distress, Decreased Breath Sounds Cardiovascular: Regular Rate, Rhythm, Systolic Murmur, Other (Systolic ejection murmor, 3/6 with radiation to carotids) Gastrointestinal: Normal Bowel Sounds, No Organomegaly, No Pulsatile Mass, Non Tender, Soft Rectal: Deferred Back: Normal Inspection, No CVA Tenderness Extremity: Normal Capillary Refill, Normal Inspection, Normal Range of Motion (except right leg), Non Tender, No Calf Tenderness, Pedal Edema Neurologic/Psychiatric: Alert, Oriented x3, No Motor/Sensory Deficits, Normal Mood/Affect, product safety consultant II-XII Norm as 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 FIM Transfers Therapy Code Descriptions/Definitions Functional [place] Measure: 0=Not Assessed/NA 4=Minimal Assistance 1=Total Assistance 5=Supervision or Setup 2=Maximal Assistance 6=Modified Export 3=Moderate Assistance 7=Complete Export Therapy Quality Codes: 6 Independent with activity with or without an assistive device 5 Patient requires set up or clean up by helper. Patient completes activity by themselves 4 Supervision or touching assist (CGA). [facility] provide cues , steadying assist 3 The helper provides less than half the effort to complete the activity 2 The helper provides more than half the effort to complete the activity 1 Dependent. The helper does all the effort to complete an activity 7 Patient refused to complete or attempt activity 9 The patient did not perform the activity before the current illness or injury 88 Not attempted due to Medical conditions or safety concerns Transfers (B, C, W/C) (FIM): 1 Scootin Rollin Roll Left to Right (QC): 3 Supine to/from Sit: 4 Sit to/from Stand: 3 Sit to Lying (QC): 2 (max assist to get legs into bed and for trunk control) Sit to Stand (QC): 1 Chair/Syk-sr-Xxalh Xfer(QC): 1 Bed to/from Chair: 4 Car Transfer (QC): 88 (unsafe to attempt with sit to stand lift) Gait Training Does the Patient Walk?: No and Walking Goal IS indicated Gait (FIM): 1 Distance (FIM): 0=does not occure Distance: 8'x3 Walk 10 feet (QC): 88 Walk 50 ft with 2 Turns(QC): 88 Walk 150 ft (QC): 9 Walking 10ft/uneven surface-QC: 88 Gait Level of Assist: 4 Gait Persons Needed: 1 Gait Assistive Device: Parallel Bars Wheelchair Training Does the Pt Use a Wheelchair?: Yes Wheelchair (FIM): 6 Wheelchair Distance: 3=150 ft Distance: 150' Wheelchair Level of Assist: 6 Wheel 50 ft with 2 turns (QC): 6 Wheel 150 ft (QC): 6 Type of Wheelchair: Motorized Stair Training Stairs (FIM): 0 1 Step (curb) (QC): 88 4 Steps (QC): 88 12 Steps (QC): 88 Balance Picking up an Object (QC): 88 Mental Status/Objective Comprehension: 7 Expression: 7 Social Interaction: 7 Problem Solvin Memory: 7 ADL-Treatment Feedin Eating (QC): 6 Groomin (seated) Oral Hygiene (QC): 6 Bathin (pt dep secodnary to having to use sit to stand to wash buttock. pt able to perform / ) Bathing Location: L Arm, R Arm, L Upper Leg, R Upper Leg, L Lower Leg (including foot), R Lower Leg (including foot), Chest, Abdomen, Perineal Area Shower/Bathe Self (QC): 1 Upper Extremity Dressin (hand assembler for puller over shirt ) Upper Body Dressing (QC): 4 Lower Extremity Dressin (secodnary to using sit to stand to pull up pants. pt able to lean sit to sit to doff pants with CGA ) Lower Body Dressing (QC): 1 On/Off Footwear (QC): 1 Toiletin (Pt. issued toilet tongs and encouraged to rock side to side to attempt to cleanse leatha area. Pt. unable to do so effectively.) Toileting Hygiene (QC): 2 Toilet/Commode Transfer: 1 Toilet Transfer (QC): 1 Shower: 1 Assessment/Plan Assessment and Plan Assess & Plan/Chief Complaint A/P: IRF protocols BM regimen to be maintained to prevent severe constipation like he had recently Pain control but minimize to prevent overdose Lovenox maintained Consult Dr Giraldo is appreciated Monitor hypotension but appears improved Home meds In/Out cath for retention still so consulting Dr Khalil Incision looks good Slept pretty well Lasix every 48 hours for edema along with wide YULI wraps but he wants the Lasix every day Macrobid for UTI Vesicare and Mybetriq per Dr Khalil (1) Status post total right knee replacement Status: Acute (2) Primary osteoarthritis of right knee Status: Chronic (3) Essential hypertension Status: Chronic (4) Constipation Status: Chronic Qualifiers: Constipation type: slow transit constipation Qualified Codes: K59.01 - Slow transit constipation (5) CAD (coronary artery disease) Status: Chronic Qualifiers: Coronary Disease-Associated Artery/Lesion type: [place] artery [place] vs. transplanted heart: [place] heart Associated angina: without angina Qualified Codes: I25.10 - Atherosclerotic heart disease of [place] coronary artery without angina pectoris (6) Hypothyroidism Status: Chronic Qualifiers: Hypothyroidism type: acquired Qualified Codes: E03.9 - Hypothyroidism, unspecified (7) Type II diabetes mellitus Status: Chronic Qualifiers: Diabetes mellitus intermission coordinator insulin use: without fpc use Diabetes mellitus complication status: with circulatory complication Diabetes mellitus complication detail: with other circulatory complications Qualified Codes: E11.59 - Type 2 diabetes mellitus with other circulatory complications (8) LILIAN (obstructive sleep apnea) Status: Chronic (9) Systolic murmur Status: Chronic (10) GERD without esophagitis Status: Chronic (11) Postoperative anemia Status: Acute (12) BPH (benign prostatic hyperplasia) Status: Chronic Qualifiers: Lower urinary tract symptom presence: unspecified whether lower urinary tract symptoms present Qualified Codes: N40.0 - Benign prostatic hyperplasia without lower urinary tract symptoms (13) Anguiano catheter in place Status: Acute (14) History of coronary artery stent placement Status: Chronic DM BERUMEN DO Feb 06, 2019 09:51
--- NOTE | 2019-02-06 09:54 | Physical Therapy Daily Note ---
PT Daily Note-Current Subjective Patient in wheelchair pre tx, agrees to PT, has no complaints of pain at rest but states he is very tired due to not sleeping well. Will be co-treating with OT for part of treatment today due to poor patient mobility, strength, endurance, balance, poor ROM, the need to coordinate UE and LE during activity Appearance Patient in wheelchair post tx finishing up with OT. Mental Status Patient Orientation: Person, Place, Situation Transfers Therapy Code Descriptions/Definitions Functional [place] Measure: 0=Not Assessed/NA 4=Minimal Assistance 1=Total Assistance 5=Supervision or Setup 2=Maximal Assistance 6=Modified [place] 3=Moderate Assistance 7=Complete [place] Therapy Quality Codes: 6 Independent with activity with or without an assistive device 5 Patient requires set up or clean up by helper. Patient completes activity by themselves 4 Supervision or touching assist (CGA). [place] provide cues , steadying assist 3 The helper provides less than half the effort to complete the activity 2 The helper provides more than half the effort to complete the activity 1 Dependent. The helper does all the effort to complete an activity 7 Patient refused to complete or attempt activity 9 The patient did not perform the activity before the current illness or injury 88 Not attempted due to Medical conditions or safety concerns Transfers (B, C, W/C) (FIM): 4 Sit to/from Stand: 4 standing in parallel bars x3 for about 1 min each time while performing and UE OT activity. Weight Bearing Right Lower Extremity: Right Weight Bearing/Tolerated Left Lower Extremity: Left Full Weight Bearing Gait Training Gait (FIM): 1 Distance: 8'x3 Gait Level of Assist: 4 Gait Persons Needed: 1 Gait Assistive Device: Parallel Bars WC follow, slow, patient weaker today Exercises LAQ alternating with 2# on right side for 5 min, manual stretching right knee flex and ext. Treatments LE exercise and stretching, standing, ambulation Assessment Current Status: Fair Progress improving ambulation and LE strength PT Short Term Goals Short Term Goals Time Frame: Feb 07, 2019 Transfers (B,C,W/C) (FIM): 4 Gait (FIM): 2 Distance (FIM): 1=up to 49 ft Gait Assistive Device: FWW Wheelchair (FIM): 6 Wheelchair distance (FIM): 3=150 ft Wheelchair Distance: 150' PT Senior Care Goals Senior Care Goals PT Allergy And Immunology Specialist Goals Time Frame: Feb 21, 2019 Transfers (B,C,W/C) (FIM): 5 Sit to Lying (QC): 6 Lying-Sitting on Side/Bed(QC): 6 Sit to Stand (QC): 6 Rollin Roll Left to Right (QC): 6 Chair/Uon-nr-Yxxcj Xfer(QC): 5 Car Transfer (QC): 4 Does the Patient Walk: No and Walking Goal IS indicated Gait (FIM): 2 Gait distance (FIM): 1=up to 49 ft Distance: 20 ft Walk 10 feet (QC): 6 Walk 10ft-Uneven Surface(QC): 4 Walk 50ft with 2 Turns (QC): 88 Walk 150 ft (QC): 88 Gait Assistive Device: FWW Does the Pt use WC or Scooter?: Yes Wheelchair (FIM): 6 Wheelchair distance (FIM): 3=150 ft Wheel 50 feet with 2 turns (QC: 6 Stairs (FIM): 0 1 Step (curb) (QC): 9 4 Steps (QC): 9 12 Steps (QC): 9 Picking up an Object (QC): 88 PT Plan Problem List Problem List: Activity Tolerance, Functional Strength, Safety, Balance, Gait, Transfer, Bed Mobility, ROM Treatment/Plan Treatment Plan: Continue Plan of Care Treatment Plan: Bed Mobility, Education, Functional Activity Glenn, Functional Strength, Group Therapy, Gait, Safety, Therapeutic Exercise, Transfers Treatment Duration: Feb 21, 2019 Frequency: At least 5 of 7 days/Wk (IRF) Estimated Hrs Per Day: 1.5 hours per day Patient and/or Family Agrees t: Yes Safety Risks/Education Patient Education: Gait Training, Transfer Techniques, Correct Positioning, Safety Issues Teaching Recipient: Patient Teaching Methods: Demonstration, Discussion Response to Teaching: Reinforcement Needed Time/GCodes Time In: 0845 Time Out: 929 Total Billed Treatment Time: 45 Total Billed Treatment 1 visit EX 15' FA 30' Co-treated with OT for 30 min, PT performed standing, ambulation, LE exercise, OT assisted with ambulation and performed UE activity MICHELLE FUNES PT Feb 06, 2019 09:54
--- NOTE | 2019-02-06 13:23 | Physical Therapy Daily Note ---
PT Daily Note-Current Subjective Patient in wheelchair at bedside pre tx, agrees to PT, has no complaints of pain. Appearance Patient in power chair at bedside post tx with nurse call, phone, tray, all needs met. Mental Status Patient Orientation: Person, Place, Situation Transfers Therapy Code Descriptions/Definitions Functional [place] Measure: 0=Not Assessed/NA 4=Minimal Assistance 1=Total Assistance 5=Supervision or Setup 2=Maximal Assistance 6=Modified [place] 3=Moderate Assistance 7=Complete [place] Therapy Quality Codes: 6 Independent with activity with or without an assistive device 5 Patient requires set up or clean up by helper. Patient completes activity by themselves 4 Supervision or touching assist (CGA). [place] provide cues , steadying assist 3 The helper provides less than half the effort to complete the activity 2 The helper provides more than half the effort to complete the activity 1 Dependent. The helper does all the effort to complete an activity 7 Patient refused to complete or attempt activity 9 The patient did not perform the activity before the current illness or injury 88 Not attempted due to Medical conditions or safety concerns Transfers (B, C, W/C) (FIM): 4 Bed to/from Chair: 4 sliding board transfer to mat and back min assist Weight Bearing Right Lower Extremity: Right Weight Bearing/Tolerated Left Lower Extremity: Left Full Weight Bearing Gait Training attempted to stand and ambulate using a rolling walker but he cannot stand completely yet without using the parallel bars Exercises Supine Ex: Ankle pumps, Quad Set, Glut sets, Heel Slides, Short Arc Quads (5 min with 2# ankle weight) Supine Reps: 20 supine knee extension stretch 5 min Treatments LE exercise, transfers Assessment Current Status: Poor Progress no change in mobility PT Short Term Goals Short Term Goals Time Frame: Feb 07, 2019 Transfers (B,C,W/C) (FIM): 4 Gait (FIM): 2 Distance (FIM): 1=up to 49 ft Gait Assistive Device: FWW Wheelchair (FIM): 6 Wheelchair distance (FIM): 3=150 ft Wheelchair Distance: 150' PT American Board Certified Orthotist Goals Residential Goals PT Residential Goals Time Frame: Feb 21, 2019 Transfers (B,C,W/C) (FIM): 5 Sit to Lying (QC): 6 Lying-Sitting on Side/Bed(QC): 6 Sit to Stand (QC): 6 Rollin Roll Left to Right (QC): 6 Chair/Dmr-nc-Jhkyt Xfer(QC): 5 Car Transfer (QC): 4 Does the Patient Walk: No and Walking Goal IS indicated Gait (FIM): 2 Gait distance (FIM): 1=up to 49 ft Distance: 20 ft Walk 10 feet (QC): 6 Walk 10ft-Uneven Surface(QC): 4 Walk 50ft with 2 Turns (QC): 88 Walk 150 ft (QC): 88 Gait Assistive Device: FWW Does the Pt use WC or Scooter?: Yes Wheelchair (FIM): 6 Wheelchair distance (FIM): 3=150 ft Wheel 50 feet with 2 turns (QC: 6 Stairs (FIM): 0 1 Step (curb) (QC): 9 4 Steps (QC): 9 12 Steps (QC): 9 Picking up an Object (QC): 88 PT Plan Problem List Problem List: Activity Tolerance, Functional Strength, Safety, Balance, Gait, Transfer, Bed Mobility, ROM Treatment/Plan Treatment Plan: Continue Plan of Care Treatment Plan: Bed Mobility, Education, Functional Activity Glenn, Functional Strength, Group Therapy, Gait, Safety, Therapeutic Exercise, Transfers Treatment Duration: Feb 21, 2019 Frequency: At least 5 of 7 days/Wk (IRF) Estimated Hrs Per Day: 1.5 hours per day Patient and/or Family Agrees t: Yes Safety Risks/Education Patient Education: Transfer Techniques, Correct Positioning, Safety Issues Teaching Recipient: Patient Teaching Methods: Demonstration, Discussion Response to Teaching: Reinforcement Needed Time/GCodes Time In: 1245 Time Out: 1330 Total Billed Treatment Time: 45 Total Billed Treatment 1 visit EX 30' FA 15' MICHELLE FUNES PT Feb 06, 2019 13:23
--- NOTE | 2019-02-06 13:31 | Occupational Ther Daily Note ---
OT Current Status-Daily Note Subjective No pain reported. Appearance Pt. up in chair. Agrees to work with therapy. Mental Status/Objective Patient Orientation: Person, Place Therapy Code Descriptions/Definitions Functional [place] Measure: 0=Not Assessed/NA 4=Minimal Assistance 1=Total Assistance 5=Supervision or Setup 2=Maximal Assistance 6=Modified [place] 3=Moderate Assistance 7=Complete [place] ADL-Treatment Therapy Code Descriptions/Definitions Functional [place] Measure: 0=Not Assessed/NA 4=Minimal Assistance 1=Total Assistance 5=Supervision or Setup 2=Maximal Assistance 6=Modified [place] 3=Moderate Assistance 7=Complete [place] Therapy Quality Codes: 6 Independent with activity with or without an assistive device 5 Patient requires set up or clean up by helper. Patient completes activity by themselves 4 Supervision or touching assist (CGA). [place] provide cues , steadying assist 3 The helper provides less than half the effort to complete the activity 2 The helper provides more than half the effort to complete the activity 1 Dependent. The helper does all the effort to complete an activity 7 Patient refused to complete or attempt activity 9 The patient did not perform the activity before the current illness or injury 88 Not attempted due to Medical conditions or safety concerns Transfers (B, C, W/C) (FIM): 3 OT/PT co-treat in therapy gym. Pt. stood at parallel bars x 4 with mod assist of one person in front, and assist of another person to verbalize and educate hand placement, KYMB[place], and follow with power chair. Pt. is able to stand and then ambulate with assist approximately 10 feet. Multiple cues given to stay upright, tuck bottom, and engage core. PT assisted with transfer while OT assisted with hand placement and posture in ambulation. Stood again and worked on letting go of bar to reach for therapist's hand. Pt. stood with mod assist but required increased assistance when letting go. PT stood with pt. while OT assisted with upright posture and then guided hand to let go. This simulated balancing self while weight shifting. This was difficult for pt. and he was unable to sustain this. After multiple transfers, pt. continued with OT to complete UE exercise using arm bike for increased overall strength and independence. Tolerated well. All needs met. Education OT Patient Education: Correct positioning, Exercise program, Progress toward G oal/Update tx plan, Purpose of tx/functional activities, Reviewed precautions, Rehab process, Transfer techniques, Use of adapted equipment Teaching Recipient: Patient Teaching Methods: Demonstration, Discussion Response to Teaching: Verbalize Understanding, Return Demonstration OT Short Term Goals Short Term Goals Time Frame: Jan 31, 2019 Eating(FIM): 5 Grooming(FIM): 5 Bathing(FIM): 4 Upper Body Dressing(FIM): 4 Lower Body Dressing(FIM): 4 Toileting(FIM): 3 Transfers (B,C,W/C) (FIM): 4 Toilet/Commode Transfer(FIM): 4 Shower Transfer(FIM): 4 1=Demonstrate adherence to instructed precautions during ADL tasks. 2=Patient will verbalize/demonstrate understanding of assistive devices/modifications for ADL. 3=Patient will improve strength/tolerance for activity to enable patient to perform ADL's. OT Financial Operations Clerk Goals Financial Operations Clerk Goals Time Frame: Feb 07, 2019 Eating (FIM): 6 Eating (QC): 6 Groomin Oral Hygiene (QC): 6 Bathing(FIM): 4 Shower/Bathe Self (QC): 4 Upper Body Dressing(FIM): 5 Upper Body Dressing (QC): 4 Lower Body Dressing(FIM): 5 Lower Body Dressing (QC): 4 On/Off Footwear (QC): 4 Toileting(FIM): 5 Toileting Hygiene (QC): 4 Transfers (B,C,W/C) (FIM): 5 Toilet/Commode Transfer(FIM): 5 Toilet/Commode Transfer (QC): 4 Shower Transfer(FIM): 4 Additional Goals: 1-Demonstrate ADL Tasks, 2-Verbalize Understanding, 3- ImproveStrength/Glenn 1=Demonstrate adherence to instructed precautions during ADL tasks. 2=Patient will verbalize/demonstrate understanding of assistive devices/modifications for ADL. 3=Patient will improve strength/tolerance for activity to enable patient to perform ADL's. OT Education/Plan Problem List/Assessment Assessment: Decreased Activ Tolerance, Decreased UE Strength, Dependent Transfers, Impaired Funct Balance, Impaired I ADL's, Impaired Self-Care Skills Discharge Recommendations Plan/Recommendations: Continue POC Treatment Plan/Plan of Care Treatment,Training & Education: Yes Patient would benefit from OT for education, treatment and training to promote independence in ADL's, mobility, safety and/or upper extremity function for ADL's. Plan of Care: ADL Retraining, Functional Mobility, Group Exercise/Act as Ind, UE Funct Exercise/Act Treatment Duration: Feb 07, 2019 Frequency: At least 5 of 7 days/Wk (IRF) Estimated Hrs Per Day: 1.5 hours per day Agreement: Yes Rehab Potential: Fair Time/GCodes Start Time: 09:00 Stop Time: 09:45 Total Time Billed (hr/min): 45 Billed Treatment Time 1, FA x 30minutes, Ex x 15minutes CIERRA MILLIGAN OT Feb 06, 2019 13:31
--- NOTE | 2019-02-06 13:37 | Occupational Ther Daily Note ---
OT Current Status-Daily Note Subjective No pain reported. Appearance Pt .up in power chair. Agrees to work with OT. Mental Status/Objective Patient Orientation: Person, Place, Time, Situation Therapy Code Descriptions/Definitions Functional [place] Measure: 0=Not Assessed/NA 4=Minimal Assistance 1=Total Assistance 5=Supervision or Setup 2=Maximal Assistance 6=Modified [place] 3=Moderate Assistance 7=Complete [place] ADL-Treatment Therapy Code Descriptions/Definitions Functional [place] Measure: 0=Not Assessed/NA 4=Minimal Assistance 1=Total Assistance 5=Supervision or Setup 2=Maximal Assistance 6=Modified [place] 3=Moderate Assistance 7=Complete [place] Therapy Quality Codes: 6 Independent with activity with or without an assistive device 5 Patient requires set up or clean up by helper. Patient completes activity by themselves 4 Supervision or touching assist (CGA). [place] provide cues , steadying assist 3 The helper provides less than half the effort to complete the activity 2 The helper provides more than half the effort to complete the activity 1 Dependent. The helper does all the effort to complete an activity 7 Patient refused to complete or attempt activity 9 The patient did not perform the activity before the current illness or injury 88 Not attempted due to Medical conditions or safety concerns Bathing (FIM): 4 (CGA while leaning side to side on shower chair.) Shower/Bathe Self (QC): 4 Upper Body (FIM): 5 Upper Body Dressing (QC): 4 Lower Body Dressing (FIM): 2 (Pt. unable to assist self on shower chair to doff/don LE clothing due to set up of situation, and fatigue.) Lower Body Dressing (QC): 2 On/Off Footwear (QC): 2 Transfers (B, C, W/C) (FIM): 1 (Please see note.) Shower Transfer(FIM): 1 Other Treatment Pt. attempted to big data admin [facility] [place], but was unable to do so. Transferred via slide board from wheelchair-shower chair. Min assist required for this. After shower, pt. unable to use slide board to return to [facility] chair, and sit-stand lift was utilized. All needs met back in chair. Education OT Patient Education: Correct positioning, Modified ADL techniques, Progress toward Goal/Update tx plan, Purpose of tx/functional activities, Reviewed precautions, Rehab process, Transfer techniques, Use of adapted equipment Teaching Recipient: Patient Teaching Methods: Demonstration, Discussion Response to Teaching: Verbalize Understanding, Return Demonstration OT Short Term Goals Short Term Goals Time Frame: Jan 31, 2019 Eating(FIM): 5 Grooming(FIM): 5 Bathing(FIM): 4 Upper Body Dressing(FIM): 4 Lower Body Dressing(FIM): 4 Toileting(FIM): 3 Transfers (B,C,W/C) (FIM): 4 Toilet/Commode Transfer(FIM): 4 Shower Transfer(FIM): 4 1=Demonstrate adherence to instructed precautions during ADL tasks. 2=Patient will verbalize/demonstrate understanding of assistive devices/modifications for ADL. 3=Patient will improve strength/tolerance for activity to enable patient to perform ADL's. OT Traffic Or System Dispatcher Goals Traffic Or System Dispatcher Goals Time Frame: Feb 07, 2019 Eating (FIM): 6 Eating (QC): 6 Groomin Oral Hygiene (QC): 6 Bathing(FIM): 4 Shower/Bathe Self (QC): 4 Upper Body Dressing(FIM): 5 Upper Body Dressing (QC): 4 Lower Body Dressing(FIM): 5 Lower Body Dressing (QC): 4 On/Off Footwear (QC): 4 Toileting(FIM): 5 Toileting Hygiene (QC): 4 Transfers (B,C,W/C) (FIM): 5 Toilet/Commode Transfer(FIM): 5 Toilet/Commode Transfer (QC): 4 Shower Transfer(FIM): 4 Additional Goals: 1-Demonstrate ADL Tasks, 2-Verbalize Understanding, 3-ImproveStrength/Glenn 1=Demonstrate adherence to instructed precautions during ADL tasks. 2=Patient will verbalize/demonstrate understanding of assistive devices/modifications for ADL. 3=Patient will improve strength/tolerance for activity to enable patient to perform ADL's. OT Education/Plan Problem List/Assessment Assessment: Decreased Activ Tolerance, Decreased UE Strength, Dependent Transfers, Impaired Funct Balance, Impaired I ADL's, Impaired Self-Care Skills Discharge Recommendations Plan/Recommendations: Continue POC Treatment Plan/Plan of Care Treatment,Training & Education: Yes Patient would benefit from OT for education, treatment and training to promote independence in ADL's, mobility, safety and/or upper extremity function for ADL's. Plan of Care: ADL Retraining, Functional Mobility, Group Exercise/Act as Ind, UE Funct Exercise/Act Treatment Duration: Feb 07, 2019 Frequency: At least 5 of 7 days/Wk (IRF) Estimated Hrs Per Day: 1.5 hours per day Agreement: Yes Rehab Potential: Fair Time/GCodes Start Time: 11:30 Stop Time: 12:15 Total Time Billed (hr/min): 45 Billed Treatment Time 1, ADL x 45minutes CIERRA MILLIGAN OT Feb 06, 2019 13:37
--- NOTE | 2019-02-06 16:14 | Progress Note - Cardiology ---
Cardiology SOAP Progress Note Subjective: Feels tired because frequency of urination at night has kept him up. States Dr Khalil has restarted his prostate meds today and he expects to sleep better tonight No cp or palp or syncope Mod exertional shortness of breath Mod bilat leg swelling Objective: I&O/Vital Signs 02/06/19 02/06/19 06:03 09:00 Temp 97.4 Pulse 81 Resp 16 B/P (MAP) 119/66 (83) Pulse Ox 92 O2 Delivery Room Air Room Air 02/06/19 00:00 Intake Total 1150 ml Output Total 1150 ml Balance 0 ml Weight (Pounds): 281 Weight (Ounces): 1.6 Weight (Calculated Kilograms): 127.748593 Constitutional: AAO x 3, well-developed, well-nourished Respiratory: lungs clear to percussion, lungs clear to auscultation Cardiovascular: regular rate-rhythm, S1 and S2, systolic murmur Gastrointestional: audible bowel sounds Extremities: swelling (moderate, bilateral leg swelling; R>L); No clubbing, No cyanosis Neurologic/Psychiatric: oriented x 3, grossly intact Skin: No rash on exposed areas, No ulcerations on exposed areas; other (S/P right knee replacement - dressing in place D&I) Results/Procedures: Labs Microbiology 01/31/19 Urine Culture - Final, Complete Escherichia coli Laboratory Tests 02/05/19 05:32 A/P: Assessment: Relative hypotension, now resolved S/p right TKR on 01-23-[address] Byrnes Severe aortic stenosis. Echocardiogram of 01-19-19 showed concentric hypertrophy. LVEF 70-75%. LA mod dilated. Severe Ao stenosis, mean gradient 53 mmHg, valve area 1.1 sq sm. RVSP 20 mmHg. Mild MR. H/o CAD, s/p two cor stents in 1995 following RI, details unknown MPI of January 19, 2019 showed no evidence of any significant myocardial ischemia or infarction. LVEF 91% Bilateral leg swelling, likely due to venous insufficiency Elec abn due to diuretics Quit smoking in 1995 DJD H/o hyperlipidemia - statin tx - followed by his PCP LILIAN, non-compliant with CPAP Mild COPD on PFTs of Mar 2019 Elevated liver enzymes of undetermined etiology - Dr Juárez managing Plan: * I discussed his CV issues with him and his daughter * Monitor labs EWELINA,ALI MD FACP FAC CCDS Feb 06, 2019 16:14
--- NOTE | 2019-02-06 16:35 | NUR ---
Notified by RN that patient would like to discuss his tentative discharge date of 02/08/19. Patient states he feels like he needs a few more days on the rehab unit before returning home. Discussed progress and dc date with therapy team. Therapists report patient is now standing in parallel bars and is able to walk approximately 10 feet in the parallel bars with moderate assist. Therapy team feels additional days on the rehab unit are reasonable with a dc date of 02/10/19. Talked with the patient about continued stay with dc date of 02/10/19. Patient verbalizes understanding and feels the additional days will help him gain more strength and endurance before returning home. Team updated on above information.
--- NOTE | 2019-02-06 16:47 | NUR ---
REPORT RECEIVED FROM DESMOND KERR. ASSUMED CARE OF THE PATIENT AT THIS TIME.
[2019-02-06] MEDS: SOLIFENACIN 5 MG PO SCH (17:14)
[2019-02-06] MEDS: PANTOPRAZOLE 40 MG (PROTONIX) TAB PO SCH (17:14)
[2019-02-06 17:30] VITALS: BP 145/71
[2019-02-06] MEDS: HYDROcodone/APAP 10 MG/325 MG (LORTAB) TAB PO PRN (20:54)
[2019-02-06] MEDS: BACLOFEN 10 MG (LIORESAL) TAB PO PRN (20:54)
[2019-02-06] MEDS: ALPRAZolam 0.25 MG (XANAX) TAB PO PRN (22:45)
[2019-02-06] MEDS: MELATONIN 3 MG TABLET PO PRN (22:45)
[2019-02-07] MEDS: MELATONIN 3 MG TABLET PO PRN ×2 (01:03→21:19)
[2019-02-07] MEDS: HYDROcodone/APAP 10 MG/325 MG (LORTAB) TAB PO PRN (01:03)
--- NOTE | 2019-02-07 05:24 | Progress Note - Hospitalist ---
[facility]24: Progress Note Pt is an 78yoWM who is s/p uncomplicated right total knee replacement by Dr. Byrnes. Prior hospitalization he had been experiencing increasing bilat knee pain, worse on R than L, and difficulty with ADL. He had been using wheel chairs, a cane, and a walker to ambulate. Prior to surgery, though he had increasing pain, he was able to dress, go up and down the stairs in his home using a chair lift, and use the bathroom by himself, but required his 's assistance for geting in and out of the shower and his truck. He states he feels like he has become a burden to his over the years; states his is also in her 80s and while still , she wants a separate life from him. He states "I want to let her have what years she has left to herself, I don't want to burden her with taking care of me". Pt sates what he hopes to accomplish now is "just to go back to the way it was before" referring to a few years back when he did not require his assistance as much and had less pain. He states he will see how much the knee replacement improves his quality of life and hopes to get his Left knee replaced as well if he is satisfied with the results. AYLIN BERUMEN DO 02/07/19 1129: Supervisory-Addendum Brief Verification & Attestation Participated in pt care: history, MDM, physical Personally performed: exam, history, MDM, supervision of care Care discussed with: Medical Student Procedures: n/a Results interpretation: Verified all documentation Verification and Attestation of Medical Student E/M Service A medical student performed and documented this service in my presence. I reviewed and verified all information documented by the medical student and made modifications to such information, when appropriate. I personally performed the physical exam and medical decision making. Aylin Berumen, Feb 07, 2019,11:28 LUIS MYANE Ceja [facility] Feb 07, 2019 05:24 AYLIN BERUMEN DO Feb 07, 2019 11:29
[2019-02-07] MEDS: LEVOTHYROXINE 100 MCG (LEVOTHROID) TAB PO SCH (06:29)
[2019-02-07] MEDS: LEVOTHYROXINE 50 MCG (LEVOTHROID) TAB PO SCH (06:29)
[2019-02-07] MEDS: PREGABALIN 150 MG (LYRICA) CAPSULE PO SCH ×2 (06:29→20:40)
[2019-02-07] MEDS: ENOXAPARIN 40 MG/0.4 ML (LOVENOX) SYR SC SCH ×2 (06:31→17:37)
[2019-02-07] MEDS: CATHETER FLUSH 10 ML SYR IV SCH ×3 (06:31→21:58)
[2019-02-07 06:55] VITALS: BP 131/72
[2019-02-07] MEDS: NITROFURANTOIN 100 MG (MACROBID) CAPSULE PO SCH ×2 (09:56→20:40)
[2019-02-07] MEDS: BISACODYL 10 MG SUPP (DULCOLAX) PR SCH ×2 (09:57→21:00)
[2019-02-07] MEDS: MICONAZOLE 2% POWDER (DESENEX AF) 90 GM TOP SCH ×2 (09:57→21:57)
[2019-02-07] MEDS: TAMSULOSIN 0.4 MG (FLOMAX) CAP PO SCH ×2 (09:57→20:40)
[2019-02-07] MEDS: ASPIRIN 81 MG CHEW (CHILDREN'S ASA) PO SCH (09:57)
[2019-02-07] MEDS: POLYETHYLENE GLYCOL 17 GM (MIRALAX) PACK PO SCH ×2 (10:00→20:40)
[2019-02-07] MEDS: SENNA W/DOCUSATE (SENOKOT S) TABLET PO SCH ×2 (10:00→20:40)
--- NOTE | 2019-02-07 10:24 | Physical Therapy Daily Note ---
PT Daily Note-Current Subjective Pt. disgruntled upon entering room. Wants to stay in room to eat, displeased with OT wanting him to work on progress. Long discussion and education this date regarding what functional mob training will ready him for home and how to let go of some fears to give full effort while he is here with professionals. Pain Location: No Pain Reported Appearance bilat knees ext lag at approx 20 degrees Mental Status Patient Orientation: Person, Place, Time, Situation pt. does not follow all sequencing or practical problem solving [place] for how to meet goals that ready him for home Transfers Therapy Code Descriptions/Definitions Functional [place] Measure: 0=Not Assessed/NA 4=Minimal Assistance 1=Total Assistance 5=Supervision or Setup 2=Maximal Assistance 6=Modified [place] 3=Moderate Assistance 7=Complete [place] Therapy Quality Codes: 6 Independent with activity with or without an assistive device 5 Patient requires set up or clean up by helper. Patient completes activity by themselves 4 Supervision or touching assist (CGA). [place] provide cues , steadying assist 3 The helper provides less than half the effort to complete the activity 2 The helper provides more than half the effort to complete the activity 1 Dependent. The helper does all the effort to complete an activity 7 Patient refused to complete or attempt activity 9 The patient did not perform the activity before the current illness or injury 88 Not attempted due to Medical conditions or safety concerns Transfers (B, C, W/C) (FIM): 1 Scootin Supine to/from Sit: 4 Sit to/from Stand: 3 (close to 4) Bed to/from Chair: 1 sit to stand lift needed for commode to w/c , in gym pt. did sit to stand x 4 with min to mod assist with much debate and trial and education regarding simulation of a w/c to bed or w/c to lift chair TRF. Pt. became increasingly cooperative and gave good effort Weight Bearing Right Lower Extremity: Right Weight Bearing/Tolerated Left Lower Extremity: Left Full Weight Bearing Gait Training Gait Assistive Device: FWW standing pregait wt shift and heel lift with heavy wt bearing on FWW Wheelchair Training Type of Wheelchair: Motorized indep Treatments co Rx with OT secondary to complexity of balance in TRF and stance coordinated with UE and multi system facilitation for safety as well as educating daughter for assessing home function viability Assessment Current Status: Fair Progress pt. may need Home assistance for 2-3 hrs in AM and PM to manage safe TRFs as well as dressing and bathing etc PT Short Term Goals Short Term Goals Time Frame: Feb 07, 2019 Transfers (B,C,W/C) (FIM): 4 Gait (FIM): 2 Distance (FIM): 1=up to 49 ft Gait Assistive Device: FWW Wheelchair (FIM): 6 Wheelchair distance (FIM): 3=150 ft Wheelchair Distance: 150' PT Auto Overhauler Goals Auto Overhauler Goals PT Auto Overhauler Goals Time Frame: Feb 21, 2019 Transfers (B,C,W/C) (FIM): 5 Sit to Lying (QC): 6 Lying-Sitting on Side/Bed(QC): 6 Sit to Stand (QC): 6 Rollin Roll Left to Right (QC): 6 Chair/Cre-uc-Bvnph Xfer(QC): 5 Car Transfer (QC): 4 Does the Patient Walk: No and Walking Goal IS indicated Gait (FIM): 2 Gait distance (FIM): 1=up to 49 ft Distance: 20 ft Walk 10 feet (QC): 6 Walk 10ft-Uneven Surface(QC): 4 Walk 50ft with 2 Turns (QC): 88 Walk 150 ft (QC): 88 Gait Assistive Device: FWW Does the Pt use WC or Scooter?: Yes Wheelchair (FIM): 6 Wheelchair distance (FIM): 3=150 ft Wheel 50 feet with 2 turns (QC: 6 Stairs (FIM): 0 1 Step (curb) (QC): 9 4 Steps (QC): 9 12 Steps (QC): 9 Picking up an Object (QC): 88 PT Plan Treatment/Plan Treatment Plan: Continue Plan of Care Treatment Plan: Bed Mobility, Education, Functional Activity Glenn, Functional Strength, Group Therapy, Gait, Safety, Therapeutic Exercise, Transfers Treatment Duration: Feb 21, 2019 Frequency: At least 5 of 7 days/Wk (IRF) Estimated Hrs Per Day: 1.5 hours per day Patient and/or Family Agrees t: Yes Safety Risks/Education Patient Education: Transfer Techniques, Correct Positioning, W/C Management, Instructions to Caregiver, Disease Process, Safety Issues Teaching Recipient: Patient Teaching Methods: Demonstration, Discussion Response to Teaching: Verbalize Understanding, Return Demonstration, Reinforcement Needed Time/GCodes Time In: 845 Time Out: 935 Total Billed Treatment Time: 50 Total Billed Treatment 1,FA50m SAM FOURNIER ORTHOTIC PRACTITIONER Feb 07, 2019 10:24
--- NOTE | 2019-02-07 10:35 | Occupational Ther Daily Note ---
OT Current Status-Daily Note Subjective pt laying in bed upon OT arrival. pt appeared "groggy." NSG notified. vitals taken while NSG assessing pt more alert and more interactive. during session noted increase agitation stated "you need to help me or get the fuck out." - while yelling "I am not working with you, you're useless." "this is bullshit, get the fuck out of here, if you're not going to help." "I wet the bed all the time, what does it matter." "I don't care what you say." "I don't have to respect you." NSG in room during comments/ pt agitation. daughter then inform of patients statements. daughter presents when pt transported to [place] gym while in gym. pt became agitated again stated "that therapist wouldn't help me get out of bed, I don't like her, shes a piece of shit." daughter inform of scenario that happen this AM. Daughter, agreed with therapist that pt need to be completing as much indep as possible without assist. pt became agitated toward daughter. (pt did p erform bed mobility with SBA) NSG stated they inform daughter Juárez of comments. Mental Status/Objective Therapy Code Descriptions/Definitions Functional [place] Measure: 0=Not Assessed/NA 4=Minimal Assistance 1=Total Assistance 5=Supervision or Setup 2=Maximal Assistance 6=Modified [place] 3=Moderate Assistance 7=Complete [place] ADL-Treatment Therapy Code Descriptions/Definitions Functional [place] Measure: 0=Not Assessed/NA 4=Minimal Assistance 1=Total Assistance 5=Supervision or Setup 2=Maximal Assistance 6=Modified [place] 3=Moderate Assistance 7=Complete [place] Therapy Quality Codes: 6 Independent with activity with or without an assistive device 5 Patient requires set up or clean up by helper. Patient completes activity by themselves 4 Supervision or touching assist (CGA). [place] provide cues , steadying assist 3 The helper provides less than half the effort to complete the activity 2 The helper provides more than half the effort to complete the activity 1 Dependent. The helper does all the effort to complete an activity 7 Patient refused to complete or attempt activity 9 The patient did not perform the activity before the current illness or injury 88 Not attempted due to Medical conditions or safety concerns Upper Body (FIM): 5 (set up pull javier shirt ) Upper Body Dressing (QC): 4 Lower Body Dressing (FIM): 1 (pants, underpatns, toni socks. use of sit to stand lift. ) Toileting (FIM): 1 (use of sit to stand lift. pt reuqired assist with 3/3 tasks ) Transfers (B, C, W/C) (FIM): 1 (sit to stand lift ) Toilet/Commode Transfer (FIM): 1 (sit to stand lift ) Other Treatment OT / PT co treatment secondary to complexity of pt deficits requiring skills of both disciplines. OT focsu on UE positioning, ADL, sequencing. PT focus on LE positioning, gross movement. once in gy pt perform sit to stand x 4 with min to mod assist with cuing for hand positioning. . Pt. became increasingly cooperative and gave good effort during standing trail. pt then perform UBE X15 minutes, while perform UBE pt became agitated toward therapist and daughter. please refer to subjective for detail. Education OT Patient Education: Energy conservation, Home exercise program, Modified ADL techniques, Progress toward Goal/Update tx plan, Purpose of tx/functional activities, Reviewed precautions, Safety issues, Transfer techniques, Use of adapted equipment Teaching Recipient: Patient, Family Teaching Methods: Demonstration, Discussion Response to Teaching: Verbalize Understanding, Return Demonstration OT Short Term Goals Short Term Goals Time Frame: Jan 31, 2019 Eating(FIM): 5 Grooming(FIM): 5 Bathing(FIM): 4 Upper Body Dressing(FIM): 4 Lower Body Dressing(FIM): 4 Toileting(FIM): 3 Transfers (B,C,W/C) (FIM): 4 Toilet/Commode Transfer(FIM): 4 Shower Transfer(FIM): 4 1=Demonstrate adherence to instructed precautions during ADL tasks. 2=Patient will verbalize/demonstrate understanding of assistive devices/jonel fications for ADL. 3=Patient will improve strength/tolerance for activity to enable patient to perform ADL's. OT Imaging Analyst Goals Usp Goals Time Frame: Feb 07, 2019 Eating (FIM): 6 Eating (QC): 6 Groomin Oral Hygiene (QC): 6 Bathing(FIM): 4 Shower/Bathe Self (QC): 4 Upper Body Dressing(FIM): 5 Upper Body Dressing (QC): 4 Lower Body Dressing(FIM): 5 Lower Body Dressing (QC): 4 On/Off Footwear (QC): 4 Toileting(FIM): 5 Toileting Hygiene (QC): 4 Transfers (B,C,W/C) (FIM): 5 Toilet/Commode Transfer(FIM): 5 Toilet/Commode Transfer (QC): 4 Shower Transfer(FIM): 4 Additional Goals: 1-Demonstrate ADL Tasks, 2-Verbalize Understanding, 3- ImproveStrength/Glenn 1=Demonstrate adherence to instructed precautions during ADL tasks. 2=Patient will verbalize/demonstrate understanding of assistive devices/modifications for ADL. 3=Patient will improve strength/tolerance for activity to enable patient to perform ADL's. OT Education/Plan Problem List/Assessment Assessment: Decreased Activ Tolerance, Decreased Safety Aware, Decreased UE Strength, Dependent Transfers, Impaired Bed Mobility, Impaired Cognition, Impaired Coordination, Impaired Funct Balance, Impaired I ADL's, Impaired Self- Care Skills increase agitation this date. pt made several inappropriate comments. Discharge Recommendations Plan/Recommendations: Continue POC Treatment Plan/Plan of Care Treatment,Training & Education: Yes Patient would benefit from OT for education, treatment and training to promote independence in ADL's, mobility, safety and/or upper extremity function for ADL's. Plan of Care: ADL Retraining, Functional Mobility, Group Exercise/Act as Ind, UE Funct Exercise/Act Treatment Duration: Feb 07, 2019 Frequency: At least 5 of 7 days/Wk (IRF) Estimated Hrs Per Day: 1.5 hours per day Agreement: Yes Rehab Potential: Fair Time/GCodes Start Time: 08:30 Stop Time: 10:00 Billed Treatment Time ADL 45 minutes, 3 units FA 45 minutes, 3 units co treatment with PT from [id number] DARIUS CAHU OT Feb 07, 2019 10:35
--- NOTE | 2019-02-07 11:09 | PM&R Progress Note ---
Subjective HPI/CC On Admission Date Seen by Provider: Feb 07, 2019 Time Seen by Provider: 09:30 CC: Debility following right total knee replacement uncomplicated by Dr. Byrnes POD # 1 HPI: This is a 78yoWM who is s/p uncomplicated right total knee replacement by Dr. Byrnes who is currently in need of intensive therapy in order to return home of which the last several years he went from using a can to a walker and then wheelchair bound for the past three years due to right knee pain and unable to ambulate. He does have all the assistive devices and wheelchair friendly house but he would like to improve him ambulation, improve the safety of his transfers and lessen the burden of care for his of 58 years. His PCP is Dr. Bach and Dr. Giraldo sees him after recently becoming established last week for a heart attack he had in 1995 and a cardiac murmur. (EST was normal). He is currently doing well and remains with a Naguiano catheter due to the inability to get out of bed so he would like to keep that in for a little while longer in order to prevent incontinence and other issues. He has not had a BM but is eating and drinking well. He is supposed to wear CPAP but is noncompliant and denies wearing oxygen at home. At this current time pt pain is well controlled at a 3 currently. He has a CPM machine on board and I did update Dr. Byrnes on the fact that we would admit him to inpatient rehab to return to prior level of functioning or a little better in order to regain independence in ADLs and ambulation at home. 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 The pt has no new complaints at this time. Subjective/Events-last exam Pt was sedated this morning taking too many Lortabs at one time so will titrate that down to one Very irritable at times DC was planned for Tuesday but unsure he will be able to transfer in order to toilet Seems over medicated at times so will minimize the sedatives [place] out, the incision looks good Reginaldo Sweet with Dr. Byrnes checked on him and everything is in good alignment Family conference tomorrow regarding the disposition Wide yuli wraps are really helping him Has not required oxygen during the day anymore Conferred with RN Reviewed therapy notes Check meds and labs Review of Systems General: Fatigue Musculoskeletal: leg pain Objective Exam Vital Signs Vital Signs Date Time Temp Pulse Resp B/P (MAP) Pulse Ox O2 Delivery O2 Flow Rate FiO2 02/07/19 17:08 98.0 86 18 148/69 (95) 95 Room Air Capillary Refill : General Appearance: No Apparent Distress, WD/WN, Chronically ill HEENT: PERRL/EOMI, Normal ENT Inspection, Pharynx Normal Neck: Full Range of Motion, Normal Inspection, Non Tender, Supple Respiratory: Chest Non Tender, Lungs Clear, No Accessory Muscle Use, No Respiratory Distress, Decreased Breath Sounds Cardiovascular: Regular Rate, Rhythm, Systolic Murmur, Other (Systolic ejection murmor, 3/6 with radiation to carotids) Gastrointestinal: Normal Bowel Sounds, No Organomegaly, No Pulsatile Mass, Non Tender, Soft Rectal: Deferred Back: Normal Inspection, No CVA Tenderness Extremity: Normal Capillary Refill, Normal Inspection, Normal Range of Motion (except right leg), Non Tender, No Calf Tenderness, Pedal Edema Neurologic/Psychiatric: Alert, Oriented x3, No Motor/Sensory Deficits, Normal Mood/Affect, fence rider II-XII Norm as 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 FIM Transfers Therapy Code Descriptions/Definitions Functional [place] Measure: 0=Not Assessed/NA 4=Minimal Assistance 1=Total Assistance 5=Supervision or Setup 2=Maximal Assistance 6=Modified [place] 3=Moderate Assistance 7=Complete [place] Therapy Quality Codes: 6 Independent with activity with or without an assistive device 5 Patient requires set up or clean up by helper. Patient completes activity by themselves 4 Supervision or touching assist (CGA). [place] provide cues , steadying assist 3 The helper provides less than half the effort to complete the activity 2 The helper provides more than half the effort to complete the activity 1 Dependent. The helper does all the effort to complete an activity 7 Patient refused to complete or attempt activity 9 The patient did not perform the activity before the current illness or injury 88 Not attempted due to Medical conditions or safety concerns Transfers (B, C, W/C) (FIM): 1 (sit to stand lift ) Scootin Rollin Roll Left to Right (QC): 3 Supine to/from Sit: 4 Sit to/from Stand: 3 (close to 4) Sit to Lying (QC): 2 (max assist to get legs into bed and for trunk control) Sit to Stand (QC): 1 Chair/Led-sg-Gbncd Xfer(QC): 1 Bed to/from Chair: 1 Car Transfer (QC): 88 (unsafe to attempt with sit to stand lift) Gait Training Does the Patient Walk?: No and Walking Goal IS indicated Gait (FIM): 1 Distance (FIM): 0=does not occure Distance: 8'x3 Walk 10 feet (QC): 88 Walk 50 ft with 2 Turns(QC): 88 Walk 150 ft (QC): 9 Walking 10ft/uneven surface-QC: 88 Gait Level of Assist: 4 Gait Persons Needed: 1 Gait Assistive Device: FWW Wheelchair Training Does the Pt Use a Wheelchair?: Yes Wheelchair (FIM): 6 Wheelchair Distance: 3=150 ft Distance: 150' Wheelchair Level of Assist: 6 Wheel 50 ft with 2 turns (QC): 6 Wheel 150 ft (QC): 6 Type of Wheelchair: Motorized Stair Training Stairs (FIM): 0 1 Step (curb) (QC): 88 4 Steps (QC): 88 12 Steps (QC): 88 Balance Picking up an Object (QC): 88 Mental Status/Objective Comprehension: 7 Expression: 7 Social Interaction: 7 Problem Solvin Memory: 7 ADL-Treatment Feedin Eating (QC): 6 Groomin (seated) Oral Hygiene (QC): 6 Bathin (CGA while leaning side to side on shower chair.) Bathing Location: L Arm, R Arm, L Upper Leg, R Upper Leg, L Lower Leg (including foot), R Lower Leg (including foot), Chest, Abdomen, Perineal Area Shower/Bathe Self (QC): 4 Upper Extremity Dressin (set up pull javier shirt ) Upper Body Dressing (QC): 4 Lower Extremity Dressin (pants, underpatns, toni socks. use of sit to stand lift. ) Lower Body Dressing (QC): 2 On/Off Footwear (QC): 2 Toiletin (use of sit to stand lift. pt reuqired assist with 3/3 tasks ) Toileting Hygiene (QC): 2 Toilet/Commode Transfer: 1 (sit to stand lift ) Toilet Transfer (QC): 1 Shower: 1 Assessment/Plan Assessment and Plan Assess & Plan/Chief Complaint A/P: IRF protocols BM regimen to be maintained to prevent severe constipation like he had recently Pain control but minimize to prevent overdose Lovenox maintained Consult Dr Giraldo is appreciated Monitor hypotension but appears improved Home meds In/Out cath for retention still so consulting Dr Khalil Incision looks good Slept pretty well Lasix every 48 hours for edema along with wide YULI wraps but he wants the Lasix every day Macrobid for UTI Vesicare and Mybetriq per Dr Khalil (1) Status post total right knee replacement Status: Acute (2) Primary osteoarthritis of right knee Status: Chronic (3) Essential hypertension Status: Chronic (4) Constipation Status: Chronic Qualifiers: Constipation type: slow transit constipation Qualified Codes: K59.01 - Slow transit constipation (5) CAD (coronary artery disease) Status: Chronic Qualifiers: Coronary Disease-Associated Artery/Lesion type: viejas artery [place] vs. transplanted heart: viejas heart Associated angina: without angina Qualified Codes: I25.10 - Atherosclerotic heart disease of viejas coronary artery without angina pectoris (6) Hypothyroidism Status: Chronic Qualifiers: Hypothyroidism type: acquired Qualified Codes: E03.9 - Hypothyroidism, unspecified (7) Type II diabetes mellitus Status: Chronic Qualifiers: Diabetes mellitus care home insulin use: without care home use Diabetes mellitus complication status: with circulatory complication Diabetes mellitus complication detail: with other circulatory complications Qualified Codes: E11.59 - Type 2 diabetes mellitus with other circulatory complications (8) LILIAN (obstructive sleep apnea) Status: Chronic (9) Systolic murmur Status: Chronic (10) GERD without esophagitis Status: Chronic (11) Postoperative anemia Status: Acute (12) BPH (benign prostatic hyperplasia) Status: Chronic Qualifiers: Lower urinary tract symptom presence: unspecified whether lower urinary tract symptoms present Qualified Codes: N40.0 - Benign prostatic hyperplasia without lower urinary tract symptoms (13) Anguiano catheter in place Status: Acute (14) History of coronary artery stent placement Status: Chronic DM BERUMEN DO Feb 07, 2019 11:09
--- NOTE | 2019-02-07 11:33 | Progress Note - Urology ---
Progress Note-Urology Progress Notes/Assess & Plan Progress/Assessment & Plan VOIDING WELL BUT INCONTINENT. TOLD HIM TO GIVE CHANCE TO THE MEDICATIONS TO WORK Final Diagnosis URINE RETENTION AND INCONTINENCE FANG MCMILLAN MD Feb 07, 2019 11:33
--- NOTE | 2019-02-07 13:03 | Progress Note - Cardiology ---
Cardiology SOAP Progress Note Subjective: No cp or palp or syncope Mod exertional shortness of breath Mod bilat leg swelling Objective: I&O/Vital Signs 02/07/19 02/07/19 06:55 08:20 Temp 98.7 Pulse 71 Resp 18 B/P (MAP) 131/72 (91) Pulse Ox 96 O2 Delivery Room Air Room Air 02/07/19 00:00 Intake Total 810 ml Balance 810 ml Weight (Pounds): 282 Weight (Ounces): 0.0 Weight (Calculated Kilograms): 127.008250 Constitutional: AAO x 3, well-developed, well-nourished Respiratory: lungs clear to percussion, lungs clear to auscultation Cardiovascular: regular rate-rhythm, S1 and S2, systolic murmur Gastrointestional: audible bowel sounds Extremities: swelling (moderate, bilateral leg swelling; R>L); No clubbing, No cyanosis Neurologic/Psychiatric: oriented x 3, grossly intact Skin: No rash on exposed areas, No ulcerations on exposed areas; other (S/P right knee replacement - dressing in place D&I) Results/Procedures: Labs Microbiology 01/31/19 Urine Culture - Final, Complete Escherichia coli A/P: Assessment: S/p right TKR on 01-23-[address] Byrnes Severe aortic stenosis. Echocardiogram of 01-19-19 showed concentric hypertrophy. LVEF 70-75%. LA mod dilated. Severe Ao stenosis, mean gradient 53 mmHg, valve area 1.1 sq sm. RVSP 20 mmHg. Mild MR. H/o CAD, s/p two cor stents in 1995 following IA, details unknown MPI of January 19, 2019 showed no evidence of any significant myocardial ischemia or infarction. LVEF 91% Bilateral leg swelling, likely due to venous insufficiency Elec abn due to diuretics Quit smoking in 1995 DJD H/o hyperlipidemia - statin tx - followed by his PCP LILIAN, non-compliant with CPAP Mild COPD on PFTs of Mar 2019 Elevated liver enzymes of undetermined etiology - Dr Juárez managing UTI, managed by Dr Juárez Plan: * I discussed his CV issues with him and his daughter * Monitor labs DONN THEODORE MD FACP FAC CCDS Feb 07, 2019 13:03
--- NOTE | 2019-02-07 14:10 | NUR ---
PLANT GUIDE met with patient's daughterDiandra to review team conference summary as patient is completing therapy. PLANT GUIDE received notification from daughter and RN patient had just transferred without the assistance of a slide board. If current activity continues, patient will be appropriate for discharge on Tuesday, 97 like originally discussed. PLANT GUIDE did recommend a family conference at 3 p.m. tomorrow to discuss level of assistance required at home.
--- NOTE | 2019-02-07 14:29 | Physical Therapy Daily Note ---
PT Daily Note-Current Subjective Pt. in bed asleep, agrees to Rx. Pain Location: No Pain Reported Comment: c/o only of fatigue and some fear of falling Mental Status Patient Orientation: Person, Place, Time Transfers Therapy Code Descriptions/Definitions Functional [place] Measure: 0=Not Assessed/NA 4=Minimal Assistance 1=Total Assistance 5=Supervision or Setup 2=Maximal Assistance 6=Modified [place] 3=Moderate Assistance 7=Complete [place] Therapy Quality Codes: 6 Independent with activity with or without an assistive device 5 Patient requires set up or clean up by helper. Patient completes activity by themselves 4 Supervision or touching assist (CGA). [place] provide cues , steadying assist 3 The helper provides less than half the effort to complete the activity 2 The helper provides more than half the effort to complete the activity 1 Dependent. The helper does all the effort to complete an activity 7 Patient refused to complete or attempt activity 9 The patient did not perform the activity before the current illness or injury 88 Not attempted due to Medical conditions or safety concerns Transfers (B, C, W/C) (FIM): 4 Scootin Rollin Supine to/from Sit: 6 Sit to/from Stand: 4 Bed to/from Chair: 4 pt. pushes self up in flat bed multiple times in hooklying fashion, sup to sit and sit to sup x 4 trials indep, pt. rolled ,multiple times and pulled shorts and brief down to ankle indep , squat pivot/slide TRFs bed to w/c x 2 , bed to bariatric drop arm BSC, squat stood for pants up on toilet with assist to pull them up then squat slide BSC to electric w/c . Weight Bearing Right Lower Extremity: Right Weight Bearing/Tolerated Left Lower Extremity: Left Full Weight Bearing Exercises Supine Ex: Bridging, Ankle pumps, Quad Set, Rolling, Glut sets, Heel Slides, Short Arc Quads, Scooting, Straight leg raise, Hip abd/add Supine Reps: 15 (x2) Treatments see above Assessment Current Status: Good Progress pt. made good progress regarding practical ways to TRF . Pt. has difficulty planning , and understanding the carry over of TRF skillls here to home situation. PT Short Term Goals Short Term Goals Time Frame: Feb 07, 2019 Transfers (B,C,W/C) (FIM): 4 Gait (FIM): 2 Distance (FIM): 1=up to 49 ft Gait Assistive Device: FWW Wheelchair (FIM): 6 Wheelchair distance (FIM): 3=150 ft Wheelchair Distance: 150' PT Blending Coordinator Goals Blending Coordinator Goals PT Blending Coordinator Goals Time Frame: Feb 21, 2019 Transfers (B,C,W/C) (FIM): 5 Sit to Lying (QC): 6 Lying-Sitting on Side/Bed(QC): 6 Sit to Stand (QC): 6 Rollin Roll Left to Right (QC): 6 Chair/Wlc-cl-Chigh Xfer(QC): 5 Car Transfer (QC): 4 Does the Patient Walk: No and Walking Goal IS indicated Gait (FIM): 2 Gait distance (FIM): 1=up to 49 ft Distance: 20 ft Walk 10 feet (QC): 6 Walk 10ft-Uneven Surface(QC): 4 Walk 50ft with 2 Turns (QC): 88 Walk 150 ft (QC): 88 Gait Assistive Device: FWW Does the Pt use WC or Scooter?: Yes Wheelchair (FIM): 6 Wheelchair distance (FIM): 3=150 ft Wheel 50 feet with 2 turns (QC: 6 Stairs (FIM): 0 1 Step (curb) (QC): 9 4 Steps (QC): 9 12 Steps (QC): 9 Picking up an Object (QC): 88 PT Plan Treatment/Plan Treatment Plan: Continue Plan of Care Treatment Plan: Bed Mobility, Education, Functional Activity Glenn, Functional Strength, Group Therapy, Gait, Safety, Therapeutic Exercise, Transfers Treatment Duration: Feb 21, 2019 Frequency: At least 5 of 7 days/Wk (IRF) Estimated Hrs Per Day: 1.5 hours per day Patient and/or Family Agrees t: Yes Safety Risks/Education Patient Education: Transfer Techniques, Correct Positioning, Disease Process, Safety Issues Teaching Recipient: Patient Teaching Methods: Demonstration, Discussion Response to Teaching: Verbalize Understanding, Return Demonstration, Reinforcement Needed Time/GCodes Time In: 1305 Time Out: 1405 Total Billed Treatment Time: 60 Total Billed Treatment 1,EX25m,FA35m SAM FOURNIER MANAGEMENT TRAINER Feb 07, 2019 14:29
[2019-02-07 17:08] VITALS: BP 148/69
[2019-02-07] MEDS: PANTOPRAZOLE 40 MG (PROTONIX) TAB PO SCH (17:36)
[2019-02-07] MEDS: SOLIFENACIN 5 MG PO SCH (17:37)
[2019-02-07] MEDS: DOCUSATE SODIUM 100 MG (COLACE) CAP PO PRN (20:40)
[2019-02-07] MEDS: BACLOFEN 10 MG (LIORESAL) TAB PO PRN (21:19)
[2019-02-07] MEDS: ALPRAZolam 0.25 MG (XANAX) TAB PO PRN (21:19)
--- NOTE | 2019-02-07 21:29 | NUR ---
actually done at 2129 Addendum: 02/07/19 at 2130 by TAMELA MANNING RN Amended: Links added.
[2019-02-08 06:01] VITALS: BP 149/72
[2019-02-08] MEDS: LEVOTHYROXINE 50 MCG (LEVOTHROID) TAB PO SCH (06:14)
[2019-02-08] MEDS: LEVOTHYROXINE 100 MCG (LEVOTHROID) TAB PO SCH (06:14)
[2019-02-08] MEDS: PREGABALIN 150 MG (LYRICA) CAPSULE PO SCH ×2 (06:15→20:43)
[2019-02-08] MEDS: CATHETER FLUSH 10 ML SYR IV SCH ×3 (06:15→22:26)
[2019-02-08] MEDS: ENOXAPARIN 40 MG/0.4 ML (LOVENOX) SYR SC SCH ×2 (06:15→18:10)
[2019-02-08] MEDS: BISACODYL 10 MG SUPP (DULCOLAX) PR SCH ×2 (08:36→20:44)
--- NOTE | 2019-02-08 09:28 | PM&R Progress Note ---
Subjective HPI/CC On Admission Date Seen by Provider: Feb 08, 2019 Time Seen by Provider: 09:00 CC: Debility following right total knee replacement uncomplicated by Dr. Byrnes POD # 1 HPI: This is a 78yoWM who is s/p uncomplicated right total knee replacement by Dr. Byrnes who is currently in need of intensive therapy in order to return home of which the last several years he went from using a can to a walker and then wheelchair bound for the past three years due to right knee pain and unable to ambulate. He does have all the assistive devices and wheelchair friendly house but he would like to improve him ambulation, improve the safety of his transfers and lessen the burden of care for his of 58 years. His PCP is Dr. Bach and Dr. Giraldo sees him after recently becoming established last week for a heart attack he had in 1995 and a cardiac murmur. (EST was normal). He is currently doing well and remains with a Anguiano catheter due to the inability to get out of bed so he would like to keep that in for a little while longer in order to prevent incontinence and other issues. He has not had a BM but is eating and drinking well. He is supposed to wear CPAP but is noncompliant and denies wearing oxygen at home. At this current time pt pain is well controlled at a 3 currently. He has a CPM machine on board and I did update Dr. Byrnes on the fact that we would admit him to inpatient rehab to return to prior level of functioning or a little better in order to regain independence in ADLs and ambulation at home. 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 The pt has no new complaints at this time. Subjective/Events-last exam Tried to motivate the Pt both Tania in OT and Shirley and he was actually able to transfer on his own. Family conference today. Slept well last night. Dr. Giraldo talked to him about aortic stenosis and Dr. Khalil is on board for urinary incontinence. Set for discharge and it seems like that will actually be successful. Wide yuli wraps are really helping him Has not required oxygen during the day anymore Conferred with RN Reviewed therapy notes Check meds and labs Review of Systems General: Fatigue Genitourinary: Incontinence, Retention Musculoskeletal: leg pain Objective Exam Vital Signs Vital Signs Date Time Temp Pulse Resp B/P (MAP) Pulse Ox O2 Delivery O2 Flow Rate FiO2 02/08/19 08:10 Room Air 02/08/19 06:01 98.3 78 20 149/72 (97) 95 Capillary Refill : General Appearance: No Apparent Distress, WD/WN, Chronically ill HEENT: PERRL/EOMI, Normal ENT Inspection, Pharynx Normal Neck: Full Range of Motion, Normal Inspection, Non Tender, Supple Respiratory: Chest Non Tender, Lungs Clear, No Accessory Muscle Use, No Respiratory Distress, Decreased Breath Sounds Cardiovascular: Regular Rate, Rhythm, Systolic Murmur, Other (Systolic ejection murmor, 3/6 with radiation to carotids) Gastrointestinal: Normal Bowel Sounds, No Organomegaly, No Pulsatile Mass, Non Tender, Soft Rectal: Deferred Back: Normal Inspection, No CVA Tenderness Extremity: Normal Capillary Refill, Normal Inspection, Normal Range of Motion (except right leg), Non Tender, No Calf Tenderness, Pedal Edema Neurologic/Psychiatric: Alert, Oriented x3, No Motor/Sensory Deficits, Normal 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 FIM Transfers Therapy Code Descriptions/Definitions Functional [place] Measure: 0=Not Assessed/NA 4=Minimal Assistance 1=Total Assistance 5=Supervision or Setup 2=Maximal Assistance 6=Modified [place] 3=Moderate Assistance 7=Complete [place] Therapy Quality Codes: 6 Independent with activity with or without an assistive device 5 Patient requires set up or clean up by helper. Patient completes activity by themselves 4 Supervision or touching assist (CGA). [place] provide cues , steadying assist 3 The helper provides less than half the effort to complete the activity 2 The helper provides more than half the effort to complete the activity 1 Dependent. The helper does all the effort to complete an activity 7 Patient refused to complete or attempt activity 9 The patient did not perform the activity before the current illness or injury 88 Not attempted due to Medical conditions or safety concerns Transfers (B, C, W/C) (FIM): 4 Scootin Rollin Roll Left to Right (QC): 3 Supine to/from Sit: 6 Sit to/from Stand: 4 Sit to Lying (QC): 2 (max assist to get legs into bed and for trunk control) Sit to Stand (QC): 1 Chair/[id number]-[id number] Xfer(QC): 1 Bed to/from Chair: 4 Car Transfer (QC): 88 (unsafe to attempt with sit to stand lift) Gait Training Does the Patient Walk?: No and Walking Goal IS indicated Gait (FIM): 1 Distance (FIM): 0=does not occure Distance: 8'x3 Walk 10 feet (QC): 88 Walk 50 ft with 2 Turns(QC): 88 Walk 150 ft (QC): 9 Walking 10ft/uneven surface-QC: 88 Gait Level of Assist: 4 Gait Persons Needed: 1 Gait Assistive Device: FWW Wheelchair Training Does the Pt Use a Wheelchair?: Yes Wheelchair (FIM): 6 Wheelchair Distance: 3=150 ft Distance: 150' Wheelchair Level of Assist: 6 Wheel 50 ft with 2 turns (QC): 6 Wheel 150 ft (QC): 6 Type of Wheelchair: Motorized Stair Training Stairs (FIM): 0 1 Step (curb) (QC): 88 4 Steps (QC): 88 12 Steps (QC): 88 Balance Picking up an Object (QC): 88 Mental Status/Objective Comprehension: 7 Expression: 7 Social Interaction: 7 Problem Solvin Memory: 7 ADL-Treatment Feedin Eating (QC): 6 Groomin (seated) Oral Hygiene (QC): 6 Bathin (CGA while leaning side to side on shower chair.) Bathing Location: L Arm, R Arm, L Upper Leg, R Upper Leg, L Lower Leg (including foot), R Lower Leg (including foot), Chest, Abdomen, Perineal Area Shower/Bathe Self (QC): 4 Upper Extremity Dressin (set up pull javier shirt ) Upper Body Dressing (QC): 4 Lower Extremity Dressin (pants, underpatns, toni socks. use of sit to stand lift. ) Lower Body Dressing (QC): 2 On/Off Footwear (QC): 2 Toiletin (use of sit to stand lift. pt reuqired assist with 3/3 tasks ) Toileting Hygiene (QC): 2 Toilet/Commode Transfer: 1 (sit to stand lift ) Toilet Transfer (QC): 1 Shower: 1 Assessment/Plan Assessment and Plan Assess & Plan/Chief Complaint A/P: IRF protocols BM regimen to be maintained to prevent severe constipation like he had recently Pain control but minimize to prevent overdose Lovenox maintained Consult Dr Giraldo is appreciated Monitor hypotension but appears improved Home meds In/Out cath for retention still so consulting Dr Khalil Incision looks good Slept pretty well Lasix every 48 hours for edema along with wide YULI wraps but he wants the Lasix every day Macrobid for UTI Vesicare and Mybetriq per Dr Khalil DC Sat? (1) Status post total right knee replacement Status: Acute (2) Primary osteoarthritis of right knee Status: Chronic (3) Essential hypertension Status: Chronic (4) Constipation Status: Chronic Qualifiers: Constipation type: slow transit constipation Qualified Codes: K59.01 - Slow transit constipation (5) CAD (coronary artery disease) Status: Chronic Qualifiers: Coronary Disease-Associated Artery/Lesion type: [place] artery [place] vs. transplanted heart: [place] heart Associated angina: without angina Qualified Codes: I25.10 - Atherosclerotic heart disease of [place] coronary artery without angina pectoris (6) Hypothyroidism Status: Chronic Qualifiers: Hypothyroidism type: acquired Qualified Codes: E03.9 - Hypothyroidism, unspecified (7) Type II diabetes mellitus Status: Chronic Qualifiers: Diabetes mellitus superintendent marine oil terminal insulin use: without superintendent marine oil terminal use Diabetes mellitus complication status: with circulatory complication Diabetes mellitus complication detail: with other circulatory complications Qualified Codes: E11.59 - Type 2 diabetes mellitus with other circulatory complications (8) LILIAN (obstructive sleep apnea) Status: Chronic (9) Systolic murmur Status: Chronic (10) GERD without esophagitis Status: Chronic (11) Postoperative anemia Status: Acute (12) BPH (benign prostatic hyperplasia) Status: Chronic Qualifiers: Lower urinary tract symptom presence: unspecified whether lower urinary tract symptoms present Qualified Codes: N40.0 - Benign prostatic hyperplasia without lower urinary tract symptoms (13) Anguiano catheter in place Status: Acute (14) History of coronary artery stent placement Status: Chronic DM BERUMEN DO Feb 08, 2019 09:28
[2019-02-08] MEDS: FUROSEMIDE 20 MG (LASIX) TAB PO SCH (09:50)
[2019-02-08] MEDS: NITROFURANTOIN 100 MG (MACROBID) CAPSULE PO SCH ×2 (09:51→20:44)
[2019-02-08] MEDS: POLYETHYLENE GLYCOL 17 GM (MIRALAX) PACK PO SCH ×2 (09:51→20:43)
[2019-02-08] MEDS: TAMSULOSIN 0.4 MG (FLOMAX) CAP PO SCH ×2 (09:51→20:43)
[2019-02-08] MEDS: ASPIRIN 81 MG CHEW (CHILDREN'S ASA) PO SCH (09:51)
[2019-02-08] MEDS: KCL 10 MEQ TAB (MICRO K) PO SCH (09:51)
[2019-02-08] MEDS: SENNA W/DOCUSATE (SENOKOT S) TABLET PO SCH ×2 (09:51→20:44)
[2019-02-08] MEDS: MICONAZOLE 2% POWDER (DESENEX AF) 90 GM TOP SCH ×2 (09:52→21:00)
--- NOTE | 2019-02-08 10:08 | Progress Note - Cardiology ---
Cardiology SOAP Progress Note Subjective: No cp or palp or syncope Stamina improving Leg swelling somewhat better Objective: I&O/Vital Signs 02/08/19 06:01 Temp 98.3 Pulse 78 Resp 20 B/P (MAP) 149/72 (97) Pulse Ox 95 O2 Delivery Room Air 02/08/19 00:00 Intake Total 1000 ml Balance 1000 ml Weight (Pounds): 282 Weight (Ounces): 0.0 Weight (Calculated Kilograms): 127.023271 Constitutional: AAO x 3, well-developed, well-nourished Respiratory: lungs clear to percussion, lungs clear to auscultation Cardiovascular: regular rate-rhythm, S1 and S2, systolic murmur Gastrointestional: audible bowel sounds Extremities: swelling (moderate, bilateral leg swelling; R>L); No clubbing, No cyanosis Neurologic/Psychiatric: oriented x 3, grossly intact Skin: No rash on exposed areas, No ulcerations on exposed areas; other (S/P right knee replacement - dressing in place D&I) Results/Procedures: Labs Microbiology 01/31/19 Urine Culture - Final, Complete Escherichia coli A/P: Assessment: S/p right TKR on 01-23-[address] Byrnes Severe aortic stenosis. Echocardiogram of 01-19-19 showed concentric hypertrophy. LVEF 70-75%. LA mod dilated. Severe Ao stenosis, mean gradient 53 mmHg, valve area 1.1 sq sm. RVSP 20 mmHg. Mild MR. H/o CAD, s/p two cor stents in 1995 following IA, details unknown MPI of January 19, 2019 showed no evidence of any significant myocardial ischemia or infarction. LVEF 91% Bilateral leg swelling, likely due to venous insufficiency Elec abn due to diuretics Quit smoking in 1995 DJD H/o hyperlipidemia - statin tx - followed by his PCP LILIAN, non-compliant with CPAP Mild COPD on PFTs of Mar 2019 Elevated liver enzymes of undetermined etiology - Dr Juárez managing UTI, managed by Dr Juárez Plan: * I again discussed his CV issues with him and his daughter * Continue current regimen of diuretics (furosemide every other day) * Monitor labs from time to time DONN THEODORE MD FACP [facility] Feb 08, 2019 10:08
--- NOTE | 2019-02-08 11:12 | Progress Note ---
YANE BARTON [facility] 02/08/19 1112: Subjective Date Seen by a Provider: Feb 08, 2019 Time Seen by a Provider: 07:15 Subjective/Events-last exam Pt was seen this morning at 0715. He was talkative yet irritable and complaining about having to get up from the bed by himself yesterday. However, pt reports he slept great last night, though he did have an episode of urinary incontinence last night. Denies any new or increased pain. Pt was seen by Dr. Giraldo yesterday and this morning again at around 1000 where him and his daughter were informed of the results of his cardiac work up. He was also seen by Dr. Khalil yesterday regarding his continued urinary incontinence and, according to Dr. Khalil's progress note, pt was told to allow some time for the Meds (Vesicare and Mybetriq) to take effect; the pt however does not recall this encounter. Pt denies any other complaints/sx at this time. Latest Consult, Therapy notes, labs , and meds were reviewed. Review of Systems General: No Night Sweats, No Fatigue; Appetite (appropriate ) HEENT: No Head Aches Pulmonary: No Dyspnea, No Cough, No Pleuritic Chest Pain Cardiovascular: No: Chest Pain, Palpitations, Orthopnea, Paroxysmal Noc. Dyspnea, Edema, Lt Headedness, Other Gastrointestinal: No: Nausea, Vomiting, Diarrhea, Constipation Genitourinary: Incontinence Musculoskeletal: No: leg pain (incision is healing well) Neurological: Weakness; No: Numbness Objective Exam Last Set of Vital Signs Vital Signs Date Time Temp Pulse Resp B/P (MAP) Pulse Ox O2 Delivery O2 Flow Rate FiO2 02/08/19 06:01 98.3 78 20 149/72 (97) 95 Room Air Capillary Refill : I&O Intake and Output 02/08/19 00:00 Intake Total 1400 ml Balance 1400 ml Intake Oral 1400 ml # Voids 7 # Bowel Movements 1 General: Alert, Oriented X3, Cooperative (however irritable ), No Acute Distress HEENT: Atraumatic Neck: Supple, No JVD Lungs: Clear to Auscultation, Normal Air Movement Heart: Regular Rate, Normal S1, Normal S2, Other (pulmonic murmur) Extremities: No Clubbing, No Cyanosis, Normal Pulses, Other (bilat edema of LE) Skin: No Rashes, Other (R knee incision site, healing well, no erythema, redness, or signs of infection ) Psych/Mental Status: Mental Status NL Results Lab Microbiology 01/31/19 Urine Culture - Final, Complete Escherichia coli Assessment/Plan Assessment/Plan Assess & Plan/Chief Complaint IRF protocols Maintain PT, OT, Group therapy Maintain BM regimen Pain control but minimize to prevent overdose and oversedation Lovenox maintained Severe aortic stenosis. LVEF 70-75%. LA mod dilated. Mild MR. As per Dr. Giraldo: pt to continue regimen of diuretics (furosemide every other day) and monitor labs from time to time As per Dr. Khalil: pt to continue Vesicare and Mybetriq regimen Continue using YULI wraps for edema Monitor hypotension but appears improved Home meds Right knee Incision healing well Continue Macrobid for UTI (2/2 E.coli as per urine culture) Clinical Quality Measures DVT/VTE Risk/Contraindication: Risk Factor Score Per Nursin RFS Level Per Nursing on Admit: 4+=Very High AYLIN BERUMEN DO 02/08/192111: Supervisory-Addendum Brief Verification & Attestation Participated in pt care: history, MDM, physical Personally performed: exam, history, MDM, supervision of care Care discussed with: Medical Student Procedures: n/a Results interpretation: Verified all documentation Verification and Attestation of Medical Student E/M Service A medical student performed and documented this service in my presence. I reviewed and verified all information documented by the medical student and made modifications to such information, when appropriate. I personally performed the physical exam and medical decision making. Aylin Berumen Feb 08, 2019,21:12 YANE BARTON [facility] Feb 08, 2019 11:12 AYLIN BERUMEN DO Feb 08, 2019 21:12
--- NOTE | 2019-02-08 11:39 | Progress Note - Urology ---
Progress Note-Urology Progress Notes/Assess & Plan Progress/Assessment & Plan VOIDING WELL. MORE CONTINENT. TOLERATES MEDS WELL. HAPPY Final Diagnosis RETENTION AND INCONTINENCE FANG MCMILLAN MD Feb 08, 2019 11:39
--- NOTE | 2019-02-08 11:57 | Physical Therapy Daily Note ---
PT Daily Note-Current Subjective Patient in wheelchair pre tx, agrees to PT, has no complaints of pain. Appearance Patient in power chair post tx, he is mod I with it. Mental Status Patient Orientation: Normal For Age Transfers Therapy Code Descriptions/Definitions Functional [place] Measure: 0=Not Assessed/NA 4=Minimal Assistance 1=Total Assistance 5=Supervision or Setup 2=Maximal Assistance 6=Modified [place] 3=Moderate Assistance 7=Complete [place] Therapy Quality Codes: 6 Independent with activity with or without an assistive device 5 Patient requires set up or clean up by helper. Patient completes activity by themselves 4 Supervision or touching assist (CGA). [place] provide cues , steadying assist 3 The helper provides less than half the effort to complete the activity 2 The helper provides more than half the effort to complete the activity 1 Dependent. The helper does all the effort to complete an activity 7 Patient refused to complete or attempt activity 9 The patient did not perform the activity before the current illness or injury 88 Not attempted due to Medical conditions or safety concerns Transfers (B, C, W/C) (FIM): 5 Scootin Rollin Supine to/from Sit: 5 Bed to/from Chair: 5 Patient performs a sliding transfer without a sliding board with SBA, performed it 4 times. Weight Bearing Right Lower Extremity: Right Weight Bearing/Tolerated Left Lower Extremity: Left Full Weight Bearing Gait Training Gait (FIM): 1 Distance: 8'x3 Gait Level of Assist: 4 Gait Persons Needed: 1 Gait Assistive Device: Parallel Bars CGA for sit to stand and ambulation in the parallel bars, needs rest breaks between Exercises Supine Ex: Ankle pumps, Quad Set, Glut sets, Heel Slides, Short Arc Quads (alternating for 5 min), Straight leg raise, Hip abd/add Supine Reps: 20 NuStep Minutes: 15 NuStep Workload: 4 Treatments LE exercise, bed mobility and transfers, ambulation Assessment Current Status: Fair Progress improving transfers PT Short Term Goals Short Term Goals Time Frame: Feb 07, 2019 Transfers (B,C,W/C) (FIM): 4 Gait (FIM): 2 Distance (FIM): 1=up to 49 ft Gait Assistive Device: FWW Wheelchair (FIM): 6 Wheelchair distance (FIM): 3=150 ft Wheelchair Distance: 150' PT Residential Goals Processor Inspector Goals PT Residential Goals Time Frame: Feb 21, 2019 Transfers (B,C,W/C) (FIM): 5 Sit to Lying (QC): 6 Lying-Sitting on Side/Bed(QC): 6 Sit to Stand (QC): 6 Rollin Roll Left to Right (QC): 6 Chair/Zyb-nb-Ofeqi Xfer(QC): 5 Car Transfer (QC): 4 Does the Patient Walk: No and Walking Goal IS indicated Gait (FIM): 2 Gait distance (FIM): 1=up to 49 ft Distance: 20 ft Walk 10 feet (QC): 6 Walk 10ft-Uneven Surface(QC): 4 Walk 50ft with 2 Turns (QC): 88 Walk 150 ft (QC): 88 Gait Assistive Device: FWW Does the Pt use WC or Scooter?: Yes Wheelchair (FIM): 6 Wheelchair distance (FIM): 3=150 ft Wheel 50 feet with 2 turns (QC: 6 Stairs (FIM): 0 1 Step (curb) (QC): 9 4 Steps (QC): 9 12 Steps (QC): 9 Picking up an Object (QC): 88 PT Plan Problem List Problem List: Activity Tolerance, Functional Strength, Safety, Balance, Gait, Transfer, Bed Mobility, ROM Treatment/Plan Treatment Plan: Continue Plan of Care Treatment Plan: Bed Mobility, Education, Functional Activity Glenn, Functional Strength, Group Therapy, Gait, Safety, Therapeutic Exercise, Transfers Treatment Duration: Feb 21, 2019 Frequency: At least 5 of 7 days/Wk (IRF) Estimated Hrs Per Day: 1.5 hours per day Patient and/or Family Agrees t: Yes Safety Risks/Education Patient Education: Gait Training, Transfer Techniques, Correct Positioning, Safety Issues Teaching Recipient: Patient Teaching Methods: Demonstration, Discussion Response to Teaching: Reinforcement Needed Time/GCodes Time In: 1100 Time Out: 1200 Total Billed Treatment Time: 60 Total Billed Treatment 1 visit GT 15' FA 10' EX 35' MICHELLE FUNES PT Feb 08, 2019 11:57
--- NOTE | 2019-02-08 12:50 | Occupational Ther Daily Note ---
OT Current Status-Daily Note Subjective No pain reported. Appearance Pt. in bed. Daughter at bedside. Pt. brushing teeth with set up from daughter. Mental Status/Objective Patient Orientation: Person, Place, Time, Situation Therapy Code Descriptions/Definitions Functional [place] Measure: 0=Not Assessed/NA 4=Minimal Assistance 1=Total Assistance 5=Supervision or Setup 2=Maximal Assistance 6=Modified [place] 3=Moderate Assistance 7=Complete [place] ADL-Treatment Therapy Code Descriptions/Definitions Functional [place] Measure: 0=Not Assessed/NA 4=Minimal Assistance 1=Total Assistance 5=Supervision or Setup 2=Maximal Assistance 6=Modified [place] 3=Moderate Assistance 7=Complete [place] Therapy Quality Codes: 6 Independent with activity with or without an assistive device 5 Patient requires set up or clean up by helper. Patient completes activity by themselves 4 Supervision or touching assist (CGA). [place] provide cues , steadying assist 3 The helper provides less than half the effort to complete the activity 2 The helper provides more than half the effort to complete the activity 1 Dependent. The helper does all the effort to complete an activity 7 Patient refused to complete or attempt activity 9 The patient did not perform the activity before the current illness or injury 88 Not attempted due to Medical conditions or safety concerns Grooming (FIM): 5 Oral Hygiene (QC): 5 Upper Body (FIM): 5 (Set up with shirt in bed.) Upper Body Dressing (QC): 5 Lower Body Dressing (FIM): 3 (Pt. able to don over feet and pull up to thighs in bed. After transfer to [facility], pt. lifted bottom by pushing with arms and OT pulled pants up for him.) Lower Body Dressing (QC): 3 On/Off Footwear (QC): 4 (With correct positioning of shoes and shoe horn.) Transfers (B, C, W/C) (FIM): 4 (CGA for supine-sit, and from bed-BSC, BSC-bed, and bed-power wheelchair.) Pt's daughter in room. Problem solved with pt. and daughter about his set up at home, and how he can functionally and safely complete transfers. Pt. has diff iculty remembering that he is not functionally using walker for transfers at this time, as he was before his knee replacement. OT educated pt. and daughter multiple times that pt. is at different transfer level at this time, and therefore, will have to find the best possible method to transfer at home when he discharges. After much problem solving, pt. is able to demonstrate ability to scoot self to and from BSC from bed, and then to chair. His difficulty arises with toileting and donning pants afterwards. Pt. verbalizes multiple times that he does not want his spouse to assist, but with some further prompting, states that she can assist him to pull pants up. Pt. states that he cant use toilet tongs because he would have to use with his left hand, and he isn't left handed. Pt. is encouraged that he needs to continue practicing with this if this is his option at home. Daughter showed this OT pictures of his set up at home, and further problem solving occurred. After pt. was up in power chair, pt. completed 5 minutes on arm bike at mod resistance for increased overall strengthening. Spoke with manager social services, PT, and nurse after treatment to let them know what was discussed and practiced. Education OT Patient Education: Correct positioning, Exercise program, Modified ADL techniques, Progress toward Goal/Update tx plan, Purpose of tx/functional ac tivities, Reviewed precautions, Rehab process, Transfer techniques Teaching Recipient: Patient Teaching Methods: Demonstration, Discussion Response to Teaching: Verbalize Understanding, Return Demonstration OT Short Term Goals Short Term Goals Time Frame: Jan 31, 2019 Eating(FIM): 5 Grooming(FIM): 5 Bathing(FIM): 4 Upper Body Dressing(FIM): 4 Lower Body Dressing(FIM): 4 Toileting(FIM): 3 Transfers (B,C,W/C) (FIM): 4 Toilet/Commode Transfer(FIM): 4 Shower Transfer(FIM): 4 1=Demonstrate adherence to instructed precautions during ADL tasks. 2=Patient will verbalize/demonstrate understanding of assistive devices/modifications for ADL. 3=Patient will improve strength/tolerance for activity to enable patient to perform ADL's. OT Source Water Protection Specialist Goals Source Water Protection Specialist Goals Time Frame: Feb 07, 2019 Eating (FIM): 6 Eating (QC): 6 Groomin Oral Hygiene (QC): 6 Bathing(FIM): 4 Shower/Bathe Self (QC): 4 Upper Body Dressing(FIM): 5 Upper Body Dressing (QC): 4 Lower Body Dressing(FIM): 5 Lower Body Dressing (QC): 4 On/Off Footwear (QC): 4 Toileting(FIM): 5 Toileting Hygiene (QC): 4 Transfers (B,C,W/C) (FIM): 5 Toilet/Commode Transfer(FIM): 5 Toilet/Commode Transfer (QC): 4 Shower Transfer(FIM): 4 Additional Goals: 1-Demonstrate ADL Tasks, 2-Verbalize Understanding, 3- ImproveStrength/Glenn 1=Demonstrate adherence to instructed precautions during ADL tasks. 2=Patient will verbalize/demonstrate understanding of assistive device s/modifications for ADL. 3=Patient will improve strength/tolerance for activity to enable patient to perform ADL's. OT Education/Plan Problem List/Assessment Assessment: Decreased Activ Tolerance, Decreased UE Strength, Dependent Transfers, Impaired Bed Mobility, Impaired Funct Balance, Impaired I ADL's, Impaired Self-Care Skills, Restricted Funct UE ROM Discharge Recommendations Plan/Recommendations: Continue POC Therapy Discharge Recommendati: Post Acute OT Comment Spoke with pt. and daughter about different equipment needs at home, including tub bench with sliding seat for walk in shower, (family to build), and drop arm heavy duty commode. Treatment Plan/Plan of Care Treatment,Training & Education: Yes Patient would benefit from OT for education, treatment and training to promote independence in ADL's, mobility, safety and/or upper extremity function for ADL's. Plan of Care: ADL Retraining, Functional Mobility, Group Exercise/Act as Ind, UE Funct Exercise/Act Treatment Duration: Feb 07, 2019 Frequency: At least 5 of 7 days/Wk (IRF) Estimated Hrs Per Day: 1.5 hours per day Agreement: Yes Rehab Potential: Fair Time/GCodes Start Time: 08:10 Stop Time: 09:40 Total Time Billed (hr/min): 90 Billed Treatment Time 1, FA x 6 CIERRA MILLIGAN OT Feb 08, 2019 12:50
--- NOTE | 2019-02-08 13:56 | Physical Therapy Daily Note ---
PT Daily Note-Current Subjective Agrees to PT. Reports he feels heis getting stronger. Transfers Therapy Code Descriptions/Definitions Functional [place] Measure: 0=Not Assessed/NA 4=Minimal Assistance 1=Total Assistance 5=Supervision or Setup 2=Maximal Assistance 6=Modified [place] 3=Moderate Assistance 7=Complete [place] Therapy Quality Codes: 6 Independent with activity with or without an assistive device 5 Patient requires set up or clean up by helper. Patient completes activity by themselves 4 Supervision or touching assist (CGA). [place] provide cues , steadying assist 3 The helper provides less than half the effort to complete the activity 2 The helper provides more than half the effort to complete the activity 1 Dependent. The helper does all the effort to complete an activity 7 Patient refused to complete or attempt activity 9 The patient did not perform the activity before the current illness or injury 88 Not attempted due to Medical conditions or safety concerns Weight Bearing Right Lower Extremity: Right Weight Bearing/Tolerated Left Lower Extremity: Left Full Weight Bearing Treatments Sit to stand with CGA and cues for sequencing. Pt ambulated the length of the // bars x 5 with CGA. Forward flexed at hips and knees in flexed position. Shuffled with noheel strike or toe off. Assessment Current Status: Good Progress PT Short Term Goals Short Term Goals Time Frame: Feb 07, 2019 Transfers (B,C,W/C) (FIM): 4 Gait (FIM): 2 Distance (FIM): 1=up to 49 ft Gait Assistive Device: FWW Wheelchair (FIM): 6 Wheelchair distance (FIM): 3=150 ft Wheelchair Distance: 150' PT Nursing Home Goals Law Enforcement Officer Goals PT Law Enforcement Officer Goals Time Frame: Feb 21, 2019 Transfers (B,C,W/C) (FIM): 5 Sit to Lying (QC): 6 Lying-Sitting on Side/Bed(QC): 6 Sit to Stand (QC): 6 Rollin Roll Left to Right (QC): 6 Chair/Ljc-su-Osgdy Xfer(QC): 5 Car Transfer (QC): 4 Does the Patient Walk: No and Walking Goal IS indicated Gait (FIM): 2 Gait distance (FIM): 1=up to 49 ft Distance: 20 ft Walk 10 feet (QC): 6 Walk 10ft-Uneven Surface(QC): 4 Walk 50ft with 2 Turns (QC): 88 Walk 150 ft (QC): 88 Gait Assistive Device: FWW Does the Pt use WC or Scooter?: Yes Wheelchair (FIM): 6 Wheelchair distance (FIM): 3=150 ft Wheel 50 feet with 2 turns (QC: 6 Stairs (FIM): 0 1 Step (curb) (QC): 9 4 Steps (QC): 9 12 Steps (QC): 9 Picking up an Object (QC): 88 PT Plan Problem List Problem List: Activity Tolerance, Functional Strength, Safety Treatment/Plan Treatment Plan: Continue Plan of Care Treatment Plan: Bed Mobility, Education, Functional Activity Glenn, Functional Strength, Group Therapy, Gait, Safety, Therapeutic Exercise, Transfers Treatment Duration: Feb 21, 2019 Frequency: At least 5 of 7 days/Wk (IRF) Estimated Hrs Per Day: 1.5 hours per day Patient and/or Family Agrees t: Yes Safety Risks/Education Patient Education: Transfer Techniques, Safety Issues Teaching Recipient: Patient Teaching Methods: Demonstration Response to Teaching: Return Demonstration Time/GCodes Time In: 1245 Time Out: 1315 Total Billed Treatment Time: 30 Total Billed Treatment visit GT 30 CIRO JIMENEZ PT Feb 08, 2019 13:56
[2019-02-08 16:00] VITALS: BP 143/72
[2019-02-08] MEDS: SOLIFENACIN 5 MG PO SCH (18:07)
[2019-02-08] MEDS: PANTOPRAZOLE 40 MG (PROTONIX) TAB PO SCH (18:07)
[2019-02-08] MEDS: BACLOFEN 10 MG (LIORESAL) TAB PO PRN (20:49)
[2019-02-08] MEDS: ALPRAZolam 0.25 MG (XANAX) TAB PO PRN (20:49)
[2019-02-08] MEDS: MELATONIN 3 MG TABLET PO PRN (20:49)
[2019-02-08] MEDS: HYDROcodone/APAP 10 MG/325 MG (LORTAB) TAB PO PRN (22:50)
[2019-02-09 05:43] VITALS: BP 118/64
[2019-02-09] MEDS: LEVOTHYROXINE 100 MCG (LEVOTHROID) TAB PO SCH (05:44)
[2019-02-09] MEDS: LEVOTHYROXINE 50 MCG (LEVOTHROID) TAB PO SCH (05:44)
[2019-02-09] MEDS: PREGABALIN 150 MG (LYRICA) CAPSULE PO SCH ×2 (05:44→20:04)
[2019-02-09] MEDS: CATHETER FLUSH 10 ML SYR IV SCH ×3 (05:45→20:04)
[2019-02-09] MEDS: ENOXAPARIN 40 MG/0.4 ML (LOVENOX) SYR SC SCH ×2 (05:45→17:58)
[2019-02-09 07:06] LABS: BASOPHILS # (AUTO) 0.1 10^3/uL (0.0-0.1); BASOPHILS % (AUTO) 1 % (0-10); EOSINOPHILS # (AUTO) 0.2 10^3/uL (0.0-0.3); EOSINOPHILS % (AUTO) 4 % (0-10); HEMATOCRIT 31 % (40-54); HEMOGLOBIN 9.5 G/DL (13.3-17.7); LYMPHOCYTES # (AUTO) 1.3 X 10^3 (1.0-4.0); LYMPHOCYTES % (AUTO) 21 % (12-44); MEAN CORPUSCULAR HEMOGLOBIN 27 PG (25-34); MEAN CORPUSCULAR HGB CONC 31 G/DL (32-36); MEAN CORPUSCULAR VOLUME 90 FL (80-99); MEAN PLATELET VOLUME 10.7 FL (7.4-10.4); MONOCYTES # (AUTO) 0.7 X 10^3 (0.0-1.0); MONOCYTES % (AUTO) 12 % (0-12); NEUTROPHILS # (AUTO) 3.7 X 10^3 (1.8-7.8); NEUTROPHILS % (AUTO) 62 % (42-75); PLATELET COUNT 328 10^3/uL (130-400); RED CELL DISTRIBUTION WIDTH 18.1 % (10.0-14.5)
[2019-02-09 07:28] LABS: BUN/CREATININE RATIO 16; CALCIUM 8.7 MG/DL (8.5-10.1); CARBON DIOXIDE 25 MMOL/L (21-32); CHLORIDE 107 MMOL/L (98-107); CREATININE SERUM 0.76 MG/DL (0.60-1.30); GFR ESTIMATED > 60; GLUCOSE 102 MG/DL (70-105); MAGNESIUM 1.9 MG/DL (1.6-2.4); POTASSIUM 3.8 MMOL/L (3.6-5.0); SODIUM 141 MMOL/L (135-145)
[2019-02-09] MEDS: TAMSULOSIN 0.4 MG (FLOMAX) CAP PO SCH ×2 (08:00→20:04)
[2019-02-09] MEDS: NITROFURANTOIN 100 MG (MACROBID) CAPSULE PO SCH (08:00)
[2019-02-09] MEDS: POLYETHYLENE GLYCOL 17 GM (MIRALAX) PACK PO SCH ×2 (08:01→18:00)
[2019-02-09] MEDS: ASPIRIN 81 MG CHEW (CHILDREN'S ASA) PO SCH (08:01)
[2019-02-09] MEDS: MICONAZOLE 2% POWDER (DESENEX AF) 90 GM TOP SCH ×2 (08:01→20:06)
[2019-02-09] MEDS: BISACODYL 10 MG SUPP (DULCOLAX) PR SCH ×2 (08:01→18:00)
[2019-02-09] MEDS: SENNA W/DOCUSATE (SENOKOT S) TABLET PO SCH ×2 (08:03→18:00)
--- NOTE | 2019-02-09 08:58 | Physical Therapy Daily Note ---
PT Daily Note-Current Subjective Patient in power chair pre tx, agrees to PT, no complaints of pain at rest. Will be co-treating with OT due to poor patient mobility, strength, endurance, balance, the need to coordinate UE and LE during activity. Appearance Patient in power chair post tx with OT to finish up. Mental Status Patient Orientation: Normal For Age Transfers Therapy Code Descriptions/Definitions Functional [place] Measure: 0=Not Assessed/NA 4=Minimal Assistance 1=Total Assistance 5=Supervision or Setup 2=Maximal Assistance 6=Modified [place] 3=Moderate Assistance 7=Complete [place] Therapy Quality Codes: 6 Independent with activity with or without an assistive device 5 Patient requires set up or clean up by helper. Patient completes activity by themselves 4 Supervision or touching assist (CGA). [place] provide cues , steadying assist 3 The helper provides less than half the effort to complete the activity 2 The helper provides more than half the effort to complete the activity 1 Dependent. The helper does all the effort to complete an activity 7 Patient refused to complete or attempt activity 9 The patient did not perform the activity before the current illness or injury 88 Not attempted due to Medical conditions or safety concerns Transfers (B, C, W/C) (FIM): 1 Scootin Rollin Roll Left to Right (QC): 4 Supine to/from Sit: 5 Sit to/from Stand: 1 Sit to Lying (QC): 4 Sit to Stand (QC): 1 Chair/Loj-wt-Rmpgl Xfer(QC): 4 Bed to/from Chair: 5 Patient is able to perform a sliding transfer from chair to chair with SBA and u ndress for bathing by leaning from side to side to get pants down but he is not able to slide back on his bare skin and needed to use the mechanical standing machine to stand and clean behind and transfer to power chair. Patient performs bed mobility with SBA, supine <-> sit with SBA, sit <-> stand with dependence, transfer with SBA. Weight Bearing Right Lower Extremity: Right Weight Bearing/Tolerated Left Lower Extremity: Left Full Weight Bearing Gait Training Gait (FIM): 1 Distance: 8'x5 Gait Level of Assist: 4 Gait Persons Needed: 1 Gait Assistive Device: Parallel Bars Patient can ambulate 8' in the parallel bars with CGA and WC follow. Wheelchair Training Does the Pt Use a Wheelchair?: Yes Wheelchair (FIM): 6 Distance: 200' Type of Wheelchair: Manual Treatments bed mobility and transfers, ambulation, standing activity while performing OT UE activity, bathing Assessment Current Status: Poor Progress slightly improved ambulation but no real change in functional mobility PT Short Term Goals Short Term Goals Time Frame: Feb 07, 2019 Transfers (B,C,W/C) (FIM): 4 Gait (FIM): 2 Distance (FIM): 1=up to 49 ft Gait Assistive Device: FWW Wheelchair (FIM): 6 Wheelchair distance (FIM): 3=150 ft Wheelchair Distance: 150' PT Foreign Student Adviser Goals Foreign Student Adviser Goals PT Jail Goals Time Frame: Feb 21, 2019 Transfers (B,C,W/C) (FIM): 5 Sit to Lying (QC): 6 Lying-Sitting on Side/Bed(QC): 6 Sit to Stand (QC): 6 Rollin Roll Left to Right (QC): 6 Chair/Qmw-tb-Ctzzy Xfer(QC): 5 Car Transfer (QC): 4 Does the Patient Walk: No and Walking Goal IS indicated Gait (FIM): 2 Gait distance (FIM): 1=up to 49 ft Distance: 20 ft Walk 10 feet (QC): 6 Walk 10ft-Uneven Surface(QC): 4 Walk 50ft with 2 Turns (QC): 88 Walk 150 ft (QC): 88 Gait Assistive Device: FWW Does the Pt use WC or Scooter?: Yes Wheelchair (FIM): 6 Wheelchair distance (FIM): 3=150 ft Wheel 50 feet with 2 turns (QC: 6 Stairs (FIM): 0 1 Step (curb) (QC): 9 4 Steps (QC): 9 12 Steps (QC): 9 Picking up an Object (QC): 88 PT Plan Problem List Problem List: Activity Tolerance, Functional Strength, Safety, Balance, Gait, Transfer, Bed Mobility, ROM Treatment/Plan Treatment Plan: Continue Plan of Care Treatment Plan: Bed Mobility, Education, Functional Activity Glenn, Functional Strength, Group Therapy, Gait, Safety, Therapeutic Exercise, Transfers Treatment Duration: Feb 21, 2019 Frequency: At least 5 of 7 days/Wk (IRF) Estimated Hrs Per Day: 1.5 hours per day Patient and/or Family Agrees t: Yes Safety Risks/Education Patient Education: Gait Training, Transfer Techniques, Correct Positioning, Safety Issues Teaching Recipient: Patient Teaching Methods: Demonstration, Discussion Response to Teaching: Reinforcement Needed Time/GCodes Time In: 0800 Time Out: 0900 Total Billed Treatment Time: 60 Total Billed Treatment 1 visit GT 20' FA 40' Co-treated with OT for 60 min. PT performed bed mobility and transfers, ambulation, standing, positioning and standing and transfers during bathing, OT performed bathing, dressing, UE activity, assist with ambulation MICHELLE FUNES PT Feb 09, 2019 08:58
[2019-02-09] MEDS ORDERED: MICO90PO TOP (09:13)
[2019-02-09] MEDS ORDERED: HYDR-3820 PO (09:13)
[2019-02-09] MEDS ORDERED: FURO20TA4 PO (09:13)
[2019-02-09] MEDS ORDERED: NITR100C10 PO (09:13)
--- NOTE | 2019-02-09 09:19 | D/C HH Face to Face Order ---
D/C Face to Face Orders Reconcile Patient Problems Problems Reviewed?: Yes Instructions for Patient Via [facility] [employer], Patient Instructions/FollowUp: Dr Bach in 1 week Physician to follow Patient: Dr hussain Bach Discharge Diet for Home: No Restrictions Patient Problems: Right knee replacement Aortic stenosis Goals for Patient: Return to independent living Patient Data-Allergies,Ht & Wt Patient Allergies: Coded Allergies: No Known Drug Allergies (Unverified , 03/07/18) Height (Feet): 5 Height (Inches): 11.00 Weight (Pounds): 282 Weight (Ounces): 0.0 Home Health Need/Face to Face Date of Face to Face: Feb 09, 2019 Clinical Findings: Generalized weakness and fatigue, Instability, Muscle weakness, Unsteady gait I have seen Pt [id number]: Yes Discharged To: Home Diagnosis/Conditions: Right knee replacement Aortic stenosis Patient is Homebound due to: Muscle weakness, Pain w/ambulation, Shortness of breath/distress Homebound Status Due to the above stated illness, injury or surgical procedure (medical condition or diagnosis) and associated clinical findings, the patient is homebound because of his/her inability to leave home except with aid of a supportive device and/or person AND leaving the home requires a considerable and taxing effort or is medically contraindicated. Pt req the following assistanc: Walker, Wheelchair Home Health Nursing Orders Home Health Services Order: Nursing Services, Package Line Operator-Evaluate & Treat, Physical Therapy-Evaluate & Treat, Other (bath aide) Home Health Infusion Therapy Line Start Date: Feb 01, 2019 Certify Stmt I certify that this patient is under my care and that I, a nurse practitioner or a physician; a agency sales management assistant working with me, had a face to face encounter that - meets the physician face to face encounter requirements with this patient as dated. DM BERUMEN DO Feb 09, 2019 09:19
--- NOTE | 2019-02-09 09:31 | Progress Note - Urology ---
Progress Note-Urology Progress Notes/Assess & Plan Progress/Assessment & Plan CONTINUES WELL CAMPOS Final Diagnosis RETENTION AND INCONTINENCE (IMPROVING) FANG MCMILLAN MD Feb 09, 2019 09:31
--- NOTE | 2019-02-09 09:53 | PM&R Progress Note ---
Subjective HPI/CC On Admission Date Seen by Provider: Feb 09, 2019 Time Seen by Provider: 09:00 CC: Debility following right total knee replacement uncomplicated by Dr. Byrnes POD # 1 HPI: This is a 78yoWM who is s/p uncomplicated right total knee replacement by Dr. Byrnes who is currently in need of intensive therapy in order to return home of which the last several years he went from using a can to a walker and then wheelchair bound for the past three years due to right knee pain and unable to ambulate. He does have all the assistive devices and wheelchair friendly house but he would like to improve him ambulation, improve the safety of his transfers and lessen the burden of care for his of 58 years. His PCP is Dr. Bach and Dr. Giraldo sees him after recently becoming established last week for a heart attack he had in 1995 and a cardiac murmur. (EST was normal). He is currently doing well and remains with a Anguiano catheter due to the inability to get out of bed so he would like to keep that in for a little while longer in order to prevent incontinence and other issues. He has not had a BM but is eating and drinking well. He is supposed to wear CPAP but is noncompliant and denies wearing oxygen at home. At this current time pt pain is well controlled at a 3 currently. He has a CPM machine on board and I did update Dr. Byrnes on the fact that we would admit him to inpatient rehab to return to prior level of functioning or a little better in order to regain independence in ADLs and ambulation at home. 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 The pt has no new complaints at this time. Subjective/Events-last exam [place] planned for Tuesday Al home orders and bariatric bedside commode with arm rest ordered No pain is reported but we will prescribe pain meds at [facility] Reviewed home meds and blended cardiology recommendations that he has been on at [facility] Urinary incontinence continues Overall pretty optimistic about getting out of the hospital and going home Conferred with RN Reviewed therapy notes Check meds and labs Review of Systems General: Fatigue Musculoskeletal: leg pain Objective Exam Vital Signs Vital Signs Date Time Temp Pulse Resp B/P (MAP) Pulse Ox O2 Delivery O2 Flow Rate FiO2 02/10/19 05:30 98.2 79 20 154/74 (100) 93 Room Air Capillary Refill : General Appearance: No Apparent Distress, WD/WN, Chronically ill HEENT: PERRL/EOMI, Normal ENT Inspection, Pharynx Normal Neck: Full Range of Motion, Normal Inspection, Non Tender, Supple Respiratory: Chest Non Tender, Lungs Clear, No Accessory Muscle Use, No Respiratory Distress, Decreased Breath Sounds Cardiovascular: Regular Rate, Rhythm, Systolic Murmur, Other Gastrointestinal: Normal Bowel Sounds, No Organomegaly, No Pulsatile Mass, Non Tender, Soft Rectal: Deferred Back: Normal Inspection, No CVA Tenderness Extremity: Normal Capillary Refill, Normal Inspection, Normal Range of Motion, Non Tender, No Calf Tenderness, Pedal Edema Neurologic/Psychiatric: Alert, Oriented x3, No Motor/Sensory Deficits, Normal Mood/Affect, supervisor 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 FIM Transfers Therapy Code Descriptions/Definitions Functional [place] Measure: 0=Not Assessed/NA 4=Minimal Assistance 1=Total Assistance 5=Supervision or Setup 2=Maximal Assistance 6=Modified [place] 3=Moderate Assistance 7=Complete [place] Therapy Quality Codes: 6 Independent with activity with or without an assistive device 5 Patient requires set up or clean up by helper. Patient completes activity by themselves 4 Supervision or touching assist (CGA). [place] provide cues , steadying assist 3 The helper provides less than half the effort to complete the activity 2 The helper provides more than half the effort to complete the activity 1 Dependent. The helper does all the effort to complete an activity 7 Patient refused to complete or attempt activity 9 The patient did not perform the activity before the current illness or injury 88 Not attempted due to Medical conditions or safety concerns Transfers (B, C, W/C) (FIM): 1 Scootin Rollin Roll Left to Right (QC): 4 Supine to/from Sit: 5 Sit to/from Stand: 1 Sit to Lying (QC): 4 Sit to Stand (QC): 1 Chair/Lzo-ae-Uoimq Xfer(QC): 4 Bed to/from Chair: 5 Car Transfer (QC): 88 (unsafe to attempt with sit to stand lift) Gait Training Does the Patient Walk?: No and Walking Goal IS indicated Gait (FIM): 1 Distance (FIM): 0=does not occure Distance: 8'x5 Walk 10 feet (QC): 88 Walk 50 ft with 2 Turns(QC): 88 Walk 150 ft (QC): 9 Walking 10ft/uneven surface-QC: 88 Gait Level of Assist: 4 Gait Persons Needed: 1 Gait Assistive Device: Parallel Bars Wheelchair Training Does the Pt Use a Wheelchair?: Yes Wheelchair (FIM): 6 Wheelchair Distance: 3=150 ft Distance: 200' Wheelchair Level of Assist: 6 Wheel 50 ft with 2 turns (QC): 6 Wheel 150 ft (QC): 6 Type of Wheelchair: Manual Stair Training Stairs (FIM): 0 1 Step (curb) (QC): 88 4 Steps (QC): 88 12 Steps (QC): 88 Balance Picking up an Object (QC): 88 Mental Status/Objective Comprehension: 7 Expression: 7 Social Interaction: 7 Problem Solvin Memory: 7 ADL-Treatment Feedin Eating (QC): 6 Groomin Oral Hygiene (QC): 5 Bathin (CGA while leaning side to side on shower chair.) Bathing Location: L Arm, R Arm, L Upper Leg, R Upper Leg, L Lower Leg (including foot), R Lower Leg (including foot), Chest, Abdomen, Perineal Area Shower/Bathe Self (QC): 4 Upper Extremity Dressin (Set up with shirt in bed.) Upper Body Dressing (QC): 5 Lower Extremity Dressin (Pt. able to don over feet and pull up to thighs in bed. After transfer to [facility], pt. lifted bottom by pushing with arms and OT pulled pants up for him.) Lower Body Dressing (QC): 3 On/Off Footwear (QC): 4 (With correct positioning of shoes and shoe horn.) Toiletin (use of sit to stand lift. pt reuqired assist with 3/3 tasks ) Toileting Hygiene (QC): 2 Toilet/Commode Transfer: 1 (sit to stand lift ) Toilet Transfer (QC): 1 Shower: 1 Assessment/Plan Assessment and Plan Assess & Plan/Chief Complaint A/P: IRF protocols BM regimen to be maintained to prevent severe constipation like he had recently Pain control but minimize to prevent overdose Lovenox maintained Consult Dr Giraldo is appreciated Monitor hypotension but appears improved Home meds In/Out cath for retention still so consulting Dr Khalil Incision looks good Slept pretty well Lasix every 48 hours for edema along with wide YULI wraps but he wants the Lasix every day Macrobid for UTI Vesicare and Mybetriq per Dr Khalil DC Sat (1) Status post total right knee replacement Status: Acute (2) Primary osteoarthritis of right knee Status: Chronic (3) Essential hypertension Status: Chronic (4) Constipation Status: Chronic Qualifiers: Constipation type: slow transit constipation Qualified Codes: K59.01 - Slow transit constipation (5) CAD (coronary artery disease) Status: Chronic Qualifiers: Coronary Disease-Associated Artery/Lesion type: [place] artery [place] vs. transplanted heart: [place] heart Associated angina: without angina Qualified Codes: I25.10 - Atherosclerotic heart disease of [place] coronary artery without angina pectoris (6) Hypothyroidism Status: Chronic Qualifiers: Hypothyroidism type: acquired Qualified Codes: E03.9 - Hypothyroidism, unspecified (7) Type II diabetes mellitus Status: Chronic Qualifiers: Diabetes mellitus exterminator insulin use: without exterminator use Diabetes mellitus complication status: with circulatory complication Diabetes mellitus complication detail: with other circulatory complications Qualified Codes: E11.59 - Type 2 diabetes mellitus with other circulatory complications (8) LILIAN (obstructive sleep apnea) Status: Chronic (9) Systolic murmur Status: Chronic (10) GERD without esophagitis Status: Chronic (11) Postoperative anemia Status: Acute (12) BPH (benign prostatic hyperplasia) Status: Chronic Qualifiers: Lower urinary tract symptom presence: unspecified whether lower urinary tract symptoms present Qualified Codes: N40.0 - Benign prostatic hyperplasia without lower urinary tract symptoms (13) Anguiano catheter in place Status: Acute (14) History of coronary artery stent placement Status: Chronic DM BERUMEN DO Feb 09, 2019 09:53
--- NOTE | 2019-02-09 10:00 | Progress Note ---
[facility] 02/09/19 1000: Subjective Date Seen by a Provider: Feb 09, 2019 Time Seen by a Provider: 07:30 Subjective/Events-last exam Pt is more pleasant this morning Has slept well No new or increased pain to R knee Has not been wearing his Wide YULI wrap since yesterday Has mild swelling to his R LE Did not have urinary incontinence last night Seen by Dr. Price who is following and is happy with pt's progress Pt denies any other complaints/sx at this time. Latest Consult, Therapy notes, labs, and meds were reviewed. Review of Systems General: No Chills, No Night Sweats, No Fatigue, No Malaise, No Appetite, No Other HEENT: No Head Aches Pulmonary: No Dyspnea, No Cough, No Pleuritic Chest Pain Cardiovascular: Paroxysmal Noc. Dyspnea, Edema; No: Chest Pain, Palpitations Gastrointestinal: Diarrhea (loose stools); No: Nausea, Vomiting Genitourinary: No Dysuria, No Incontinence Objective Exam Last Set of Vital Signs Vital Signs Date Time Temp Pulse Resp B/P (MAP) Pulse Ox O2 Delivery O2 Flow Rate FiO2 02/09/19 05:43 97.9 81 18 118/64 (82) 91 Room Air Capillary Refill : I&O Intake and Output 02/09/19 00:00 Intake Total 860 ml Balance 860 ml Intake Oral 860 ml # Voids 7 # Bowel Movements 2 General: Alert, Oriented X3, Cooperative, No Acute Distress HEENT: Atraumatic Neck: Supple Lungs: Clear to Auscultation, Normal Air Movement Heart: Regular Rate, Normal S1, Normal S2 Extremities: No Clubbing, No Cyanosis, Normal Pulses, No Tenderness/Swelling, Other (Mild edema to R LE) Skin: No Rashes, No Breakdown, No Significant Lesion Psych/Mental Status: Mental Status NL Results Lab Laboratory Tests 02/09/19 06:48: White Blood Count 6.0, Red Blood Count 3.47L, Hemoglobin 9.5L, Hematocrit 31L, Mean Corpuscular Volume 90, Mean Corpuscular Hemoglobin 27, Mean Corpuscular Hemoglobin Concent 31L, Red Cell Distribution Width 18.1H, Platelet Count 328, Mean Platelet Volume 10.7H, Neutrophils (%) (Auto) 62, Lymphocytes (%) (Auto) 21, Monocytes (%) (Auto) 12, Eosinophils (%) (Auto) 4, Basophils (%) (Auto) 1, Neutrophils # (Auto) 3.7, Lymphocytes # (Auto) 1.3, Monocytes # (Auto) 0.7, Eosinophils # (Auto) 0.2, Basophils # (Auto) 0.1, Sodium Level 141, Potassium Level 3.8, Chloride Level 107, Carbon Dioxide Level 25, Anion Gap 9, Blood Urea Nitrogen 12, Creatinine 0.76, Estimat Glomerular Filtration Rate > 60, BUN/Creatinine Ratio 16, Glucose Level 102, Calcium Level 8.7, Magnesium Level 1.9 Microbiology 01/31/19 Urine Culture - Final, Complete Escherichia coli Assessment/Plan Assessment/Plan Assess & Plan/Chief Complaint IRF protocols Maintain PT Maintain BM regimen Pain control but minimize to prevent overdose and oversedation Lovenox maintained continue regimen of diuretics (furosemide every other day) and monitor labs from time to time continue Vesicare and Mybetriq regimen Continue using YULI wraps for edema Right knee Incision healing well Pt to be d/c tomorrow Clinical Quality Measures DVT/VTE Risk/Contraindication: Risk Factor Score Per Nursin RFS Level Per Nursing on Admit: 4+=Very High AYLIN BERUMEN DO 02/10/19 0827: Supervisory-Addendum Brief Verification & Attestation Participated in pt care: history, MDM, physical Personally performed: exam, history, MDM, supervision of care Care discussed with: Medical Student Procedures: n/a Results interpretation: Verified all documentation Verification and Attestation of Medical Student E/M Service A medical student performed and documented this service in my presence. I reviewed and verified all information documented by the medical student and made modifications to such information, when appropriate. I personally performed the physical exam and medical decision making. Aylin Berumen Feb 10, 2019,08:27 [facility] Feb 09, 2019 10:00 AYLIN BERUMEN DO Feb 10, 2019 08:27
--- NOTE | 2019-02-09 11:59 | Occupational Ther Daily Note ---
OT Current Status-Daily Note Subjective Pt agreeable to treatment. Has no reports of pain. Mental Status/Objective Therapy Code Descriptions/Definitions Functional [place] Measure: 0=Not Assessed/NA 4=Minimal Assistance 1=Total Assistance 5=Supervision or Setup 2=Maximal Assistance 6=Modified [place] 3=Moderate Assistance 7=Complete [place] ADL-Treatment Partial co-treat with PT secondary to impaired strength, mobility, activity tolerance. OT focusing on ADLs, UE management, and safety. PT focusing on mobility, transfers, and ambulation. Pt performed w/c mobility in power w/c to shower room. Pt able to scoot from w/c to shower chair without use of slide board with supervision. Weight shifted side to side to doff pants. Doff shirt without assist. Seated bathing completed using hand held shower. Upper body bathing completed with SBA. Pt able to wash leatha area and bilateral upper legs. Used long handled sponge to wash lower legs and feet. Pt weight shifted left and right to wash buttocks. (Min assist for thorough cleaning when pt was in sit to stand lift for transfer to w/c following shower). Don pullover shirt with set up. Pt able to start Depends and shorts over feet, but unable to stand to pull up over hips. Sit to stand lift was used for transfer off shower chair to w/c and pt was assisted with pant hike at that time. Pt states he does not wear socks at home and only wears slip on shoes. Pt able to don shoes with min assist and increased time using shoe horn. Pt performed w/c mobility to therapy gym. Pt performed sit to stand and short distance ambulation in parallel bars x5 trials with close w/c follow. Pt requires rest break between trials. Pt also performed UE activity while standing x2 trials to increase activity tolerance, strength, and standing balance. Pt fatigues quickly with activity. Pt returned to room and completed grooming tasks while seated at sink. Pt able to brush teeth with modified independence. Pt practiced scooting transfer w/c<-> drop arm BSC. Pt able to complete transfer with supervision and skilled cues for safety. Pt is non-ambulatory and w/c will not fit through doorway into bathroom on the floor where pt will be staying. Pt is unable to access other bathrooms as they are on different levels of the home, so pt will need to utilize drop arm commode at this time. Education provided regarding ADL and home safety. Pt states understanding and has no questions or concerns at this time. Pt completed bilateral UE exercises to increase strength needed for ADLs and transfers. Pt performed four exercises x15 reps with red theraband. Rest breaks between exercises. Occasional cues for proper technique. Pt sitting in w/c with needs met after session. Therapy Code Descriptions/Definitions Functional [place] Measure: 0=Not Assessed/NA 4=Minimal Assistance 1=Total Assistance 5=Supervision or Setup 2=Maximal Assistance 6=Modified [place] 3=Moderate Assistance 7=Complete [place] Therapy Quality Codes: 6 Independent with activity with or without an assistive device 5 Patient requires set up or clean up by helper. Patient completes activity by themselves 4 Supervision or touching assist (CGA). [place] provide cues , steadying assist 3 The helper provides less than half the effort to complete the activity 2 The helper provides more than half the effort to complete the activity 1 Dependent. The helper does all the effort to complete an activity 7 Patient refused to complete or attempt activity 9 The patient did not perform the activity before the current illness or injury 88 Not attempted due to Medical conditions or safety concerns Eating (FIM): 6 (per nursing report) Eating (QC): 6 Grooming (FIM): 6 Oral Hygiene (QC): 6 Bathing (FIM): 4 Shower/Bathe Self (QC): 3 Upper Body (FIM): 5 Upper Body Dressing (QC): 5 Lower Body Dressing (FIM): 1 Lower Body Dressing (QC): 1 On/Off Footwear (QC): 4 Toilet/Commode Transfer (FIM): 5 Toilet Transfer (QC): 5 Shower Transfer(FIM): 1 OT Short Term Goals Short Term Goals Time Frame: Jan 31, 2019 Eating(FIM): 5 Grooming(FIM): 5 Bathing(FIM): 4 Upper Body Dressing(FIM): 4 Lower Body Dressing(FIM): 4 Toileting(FIM): 3 Transfers (B,C,W/C) (FIM): 4 Toilet/Commode Transfer(FIM): 4 Shower Transfer(FIM): 4 1=Demonstrate adherence to instructed precautions during ADL tasks. 2=Patient will verbalize/demonstrate understanding of assistive devices/modifications for ADL. 3=Patient will improve strength/tolerance for activity to enable patient to perform ADL's. OT Marking Clerk Goals Marking Clerk Goals Time Frame: Feb 07, 2019 Eating (FIM): 6 Eating (QC): 6 Groomin Oral Hygiene (QC): 6 Bathing(FIM): 4 Shower/Bathe Self (QC): 4 Upper Body Dressing(FIM): 5 Upper Body Dressing (QC): 4 Lower Body Dressing(FIM): 5 Lower Body Dressing (QC): 4 On/Off Footwear (QC): 4 Toileting(FIM): 5 Toileting Hygiene (QC): 4 Transfers (B,C,W/C) (FIM): 5 Toilet/Commode Transfer(FIM): 5 Toilet/Commode Transfer (QC): 4 Shower Transfer(FIM): 4 Additional Goals: 1-Demonstrate ADL Tasks, 2-Verbalize Understanding, 3- ImproveStrength/[place] 1=Demonstrate adherence to instructed precautions during ADL tasks. 2=Patient will verbalize/demonstrate understanding of assistive devices/modifications for ADL. 3=Patient will improve strength/tolerance for activity to enable patient to perform ADL's. OT Education/Plan Discharge Recommendations Plan/Recommendations: Continue POC Treatment Plan/Plan of Care Patient would benefit from OT for education, treatment and training to promote independence in ADL's, mobility, safety and/or upper extremity function for ADL's. Plan of Care: ADL Retraining, Functional Mobility, Group Exercise/Act as Ind, UE Funct Exercise/Act Treatment Duration: Feb 07, 2019 Frequency: At least 5 of 7 days/Wk (IRF) Estimated Hrs Per Day: 1.5 hours per day Agreement: Yes Rehab Potential: Fair Time/GCodes Start Time: 08:00 Stop Time: 09:30 Total Time Billed (hr/min): 90 Billed Treatment Time 1 visit, ADLx3(45minutes), FAx2(30minutes), EX(15minutes) Co-treat with PT 60minutes ROBERT BULLOCK OT Feb 09, 2019 11:59
--- NOTE | 2019-02-09 13:29 | Physical Therapy Daily Note ---
PT Daily Note-Current Subjective Patient in power chair in his room pre tx, agrees to PT, has no complaints of pain at rest. Appearance Patient in power chair post tx Mental Status Patient Orientation: Person, Place, Situation Transfers Therapy Code Descriptions/Definitions Functional [place] Measure: 0=Not Assessed/NA 4=Minimal Assistance 1=Total Assistance 5=Supervision or Setup 2=Maximal Assistance 6=Modified [place] 3=Moderate Assistance 7=Complete [place] Therapy Quality Codes: 6 Independent with activity with or without an assistive device 5 Patient requires set up or clean up by helper. Patient completes activity by themselves 4 Supervision or touching assist (CGA). [place] provide cues , steadying assist 3 The helper provides less than half the effort to complete the activity 2 The helper provides more than half the effort to complete the activity 1 Dependent. The helper does all the effort to complete an activity 7 Patient refused to complete or attempt activity 9 The patient did not perform the activity before the current illness or injury 88 Not attempted due to Medical conditions or safety concerns Car Transfer (QC): 3 Patient's daughter has an SUV that is at least 29 inches to enter, that is too tall for patient to slide onto from his chair with or without a sliding board. Car transfer machine was lowered to what looked to be about sedan height (22") and he was able to transfer in and out using a sliding board and min assist to place board, keep it from sliding, and assist with feet. Weight Bearing Right Lower Extremity: Right Weight Bearing/Tolerated Left Lower Extremity: Left Full Weight Bearing Treatments car transfers Assessment Current Status: Fair Progress needs sliding board for car transfer and can do it at a sedan height PT Short Term Goals Short Term Goals Time Frame: Feb 07, 2019 Transfers (B,C,W/C) (FIM): 4 Gait (FIM): 2 Distance (FIM): 1=up to 49 ft Gait Assistive Device: FWW Wheelchair (FIM): 6 Wheelchair distance (FIM): 3=150 ft Wheelchair Distance: 200' PT Taker Off Braker Machine Goals Senior Care Goals PT Senior Care Goals Time Frame: Feb 21, 2019 Transfers (B,C,W/C) (FIM): 5 Sit to Lying (QC): 6 Lying-Sitting on Side/Bed(QC): 6 Sit to Stand (QC): 6 Rollin Roll Left to Right (QC): 6 Chair/Uwx-mm-Xpize Xfer(QC): 5 Car Transfer (QC): 4 Does the Patient Walk: No and Walking Goal IS indicated Gait (FIM): 2 Gait distance (FIM): 1=up to 49 ft Distance: 20 ft Walk 10 feet (QC): 6 Walk 10ft-Uneven Surface(QC): 4 Walk 50ft with 2 Turns (QC): 88 Walk 150 ft (QC): 88 Gait Assistive Device: FWW Does the Pt use WC or Scooter?: Yes Wheelchair (FIM): 6 Wheelchair distance (FIM): 3=150 ft Wheel 50 feet with 2 turns (QC: 6 Stairs (FIM): 0 1 Step (curb) (QC): 9 4 Steps (QC): 9 12 Steps (QC): 9 Picking up an Object (QC): 88 PT Plan Problem List Problem List: Activity Tolerance, Functional Strength, Safety, Balance, Gait, Transfer, Bed Mobility, ROM Treatment/Plan Treatment Plan: Continue Plan of Care Treatment Plan: Bed Mobility, Education, Functional Activity [place], Functional Strength, Group Therapy, Gait, Safety, Therapeutic Exercise, Transfers Treatment Duration: Feb 21, 2019 Frequency: At least 5 of 7 days/Wk (IRF) Estimated Hrs Per Day: 1.5 hours per day Patient and/or Family Agrees t: Yes Safety Risks/Education Patient Education: Transfer Techniques, Correct Positioning, Safety Issues Teaching Recipient: Patient Teaching Methods: Demonstration, Discussion Response to Teaching: Reinforcement Needed Time/GCodes Time In: 1300 Time Out: 1330 Total Billed Treatment Time: 30 Total Billed Treatment 1 visit FA 30' MICHELLE FUNES PT Feb 09, 2019 13:29
[2019-02-09] MEDS: PANTOPRAZOLE 40 MG (PROTONIX) TAB PO SCH (17:59)
[2019-02-09] MEDS: SOLIFENACIN 5 MG PO SCH (17:59)
[2019-02-09 18:36] VITALS: BP 133/73
[2019-02-09] MEDS: ALPRAZolam 0.25 MG (XANAX) TAB PO PRN (23:36)
[2019-02-09] MEDS: MELATONIN 3 MG TABLET PO PRN (23:36)
[2019-02-09] MEDS: HYDROcodone/APAP 10 MG/325 MG (LORTAB) TAB PO PRN (23:37)
[2019-02-10] MEDS: BACLOFEN 10 MG (LIORESAL) TAB PO PRN (02:47)
--- NOTE | 2019-02-10 02:48 | NUR ---
pt requesting baclofen for muscle spasm. pt states that he is having spasms in his legs. prn baclofen given at this time
[2019-02-10 05:30] VITALS: BP 154/74
[2019-02-10] MEDS: PREGABALIN 150 MG (LYRICA) CAPSULE PO SCH (05:56)
[2019-02-10] MEDS: ENOXAPARIN 40 MG/0.4 ML (LOVENOX) SYR SC SCH (05:56)
[2019-02-10] MEDS: LEVOTHYROXINE 50 MCG (LEVOTHROID) TAB PO SCH (05:56)
[2019-02-10] MEDS: LEVOTHYROXINE 100 MCG (LEVOTHROID) TAB PO SCH (05:56)
[2019-02-10] MEDS: CATHETER FLUSH 10 ML SYR IV SCH (05:57)
--- NOTE | 2019-02-10 08:08 | Discharge Summary ---
Diagnosis/Chief Complaint Date of Admission Jan 24, 2019 at 13:00 Date of Discharge Discharge Date: Feb 10, 2019 Discharge Diagnosis Assess & Plan/Chief Complaint A/P: IRF protocols BM regimen to be maintained to prevent severe constipation like he had recently Pain control but minimize to prevent overdose Lovenox maintained Consult Dr Giraldo is appreciated Monitor hypotension but appears improved Home meds In/Out cath for retention still so consulting Dr Khalil Incision looks good Slept pretty well Lasix every 48 hours for edema along with wide JAYY wraps but he wants the Lasix every day Macrobid for UTI Vesicare and Mybetriq per Dr Khalil DC Sat (1) Status post total right knee replacement Status: Acute (2) Primary osteoarthritis of right knee Status: Chronic (3) Essential hypertension Status: Chronic (4) Constipation Status: Chronic Qualifiers: Constipation type: slow transit constipation Qualified Codes: K59.01 - Slow transit constipation (5) CAD (coronary artery disease) Status: Chronic Qualifiers: Coronary Disease-Associated Artery/Lesion type: [place] artery [place] vs. transplanted heart: [place] heart Associated angina: without angina Qualified Codes: I25.10 - Atherosclerotic heart disease of [place] coronary artery without angina pectoris (6) Hypothyroidism Status: Chronic Qualifiers: Hypothyroidism type: acquired Qualified Codes: E03.9 - Hypothyroidism, unspecified (7) Type II diabetes mellitus Status: Chronic Qualifiers: Diabetes mellitus alf insulin use: without alf use Diabetes mellitus complication status: with circulatory complication Diabetes mellitus complication detail: with other circulatory complications Qualified Codes: E11.59 - Type 2 diabetes mellitus with other circulatory complications (8) LILIAN (obstructive sleep apnea) Status: Chronic (9) Systolic murmur Status: Chronic (10) GERD without esophagitis Status: Chronic (11) Postoperative anemia Status: Acute (12) BPH (benign prostatic hyperplasia) Status: Chronic Qualifiers: Lower urinary tract symptom presence: unspecified whether lower urinary tract symptoms present Qualified Codes: N40.0 - Benign prostatic hyperplasia without lower urinary tract symptoms (13) Anguiano catheter in place Status: Acute (14) History of coronary artery stent placement Status: Chronic Reason Hospital Visit Verification and Attestation of Medical Student E/M Service A medical student performed and documented this service in my presence. I reviewed and verified all information documented by the medical student and made modifications to such information, when appropriate. I personally performed the physical exam and medical decision making. Aylin Berumen, Jan 24, 2019,20:36 Discharge Summary Discharge Physical Examination Allergies: Coded Allergies: No Known Drug Allergies (Unverified , 03/07/18) Vitals & I&Os Vital Signs Date Time Temp Pulse Resp B/P (MAP) Pulse Ox O2 Delivery O2 Flow Rate FiO2 02/10/19 13:29 79 20 154/74 93 Room Air 02/10/19 05:30 98.2 General Appearance: Alert, Oriented X3, Cooperative Respiratory: Clear to Auscultation Cardiovascular: Regular Rate Neuro: Normal Speech, Strength at 5/5 X4 Ext Psych/Mental Status: Mental Status NL, Mood NL Hospital Course Was the Problem List Reviewed?: Yes Hospital course: Patient had a lengthy hospital course when he was admitted following an uncomplicated right knee replacement by orthopedic surgery. He spent 17 days in the inpatient rehab unit. Cardiology continued monitoring him along with urology for retention and incontinence. Aortic stenosis and CAD was managed with a few medication changes from cardiology. His prior level of functioning was wheelchair-bound and by the time of discharge after a lengthy stay he was found to have made some progress and help with transfers and stand with assistance and he was able to secure enough help at home in order to return home. He had a Frank lift in her electric wheelchair in order to get around his house and do well as he had prior at home. Labs remained stable compression stockings with wide Jayy wraps were initiated for lower extremity edema along with Lasix restarted. Hypotension persisted requiring a lot of medications to be on hold and at time of discharge cardiology and urology were involved in restarting most of his medications and changing a few. Bowels remain normal after soapsuds enema resolve the constipation of several days duration and pain was controlled with Lortab. Labs (last 24 hrs) Laboratory Tests 01/24/19 13:00: Lab Scanned Report Referred Lab Report 01/24/19 15:39: Glucometer 117H 01/24/19 20:38: Glucometer 129H 01/25/19 05:47: Glucometer 124H 01/25/19 05:48: White Blood Count 7.9, Red Blood Count 3.80L, Hemoglobin 10.7L, Hematocrit 33L, Mean Corpuscular Volume 88, Mean Corpuscular Hemoglobin 28, Mean Corpuscular Hemoglobin Concent 32, Red Cell Distribution Width 16.3H, Platelet Count 226, Mean Platelet Volume 10.9H, Neutrophils (%) (Auto) 76H, Lymphocytes (%) (Auto) 12, Monocytes (%) (Auto) 10, Eosinophils (%) (Auto) 1, Basophils (%) (Auto) 0, Neutrophils # (Auto) 6.0, Lymphocytes # (Auto) 0.9L, Monocytes # (Auto) 0.8, Eosinophils # (Auto) 0.1, Basophils # (Auto) 0.0, Sodium Level 139, Potassium Level 4.3, Chloride Level 103, Carbon Dioxide Level 25, Anion Gap 11, Blood Urea Nitrogen 19H, Creatinine 0.80, Estimat Glomerular Filtration Rate > 60, BUN/Creatinine Ratio 24, Glucose Level 127H, Calcium Level 9.6, Corrected Calcium 10.2H, Total Bilirubin 0.6, Aspartate Amino Transf (AST/SGOT) 24, Alanine Aminotransferase (ALT/SGPT) 21, Alkaline Phosphatase 69, Total Protein 6.4, Albumin 3.2 01/26/19 05:50: White Blood Count 9.1, Red Blood Count 3.77L, Hemoglobin 10.6L, Hematocrit 33L, Mean Corpuscular Volume 88, Mean Corpuscular Hemoglobin 28, Mean Corpuscular Hemoglobin Concent 32, Red Cell Distribution Width 16.4H, Platelet Count 253, Mean Platelet Volume 10.7H, Sodium Level 138, Potassium Level 4.4, Chloride Level 102, Carbon Dioxide Level 23, Anion Gap 13, Blood Urea Nitrogen 18, Creatinine 0.81, Estimat Glomerular Filtration Rate > 60, BUN/Creatinine Ratio 22, Glucose Level 123H, Calcium Level 9.6 01/27/19 15:27: Glucometer 126H 01/29/19 04:50: Sodium Level 139, Potassium Level 4.0, Chloride Level 104, Carbon Dioxide Level 24, Anion Gap 11, Blood Urea Nitrogen 19H, Creatinine 0.76, Estimat Glomerular Filtration Rate > 60, BUN/Creatinine Ratio 25, Glucose Level 133H, Calcium Level 9.0, Corrected Calcium 9.8, Total Bilirubin 0.7, Aspartate Amino Transf (AST/SGOT) 121H, Alanine Aminotransferase (ALT/SGPT) 95H, Alkaline Phosphatase 69, Total Protein 5.9L, Albumin 3.0L 01/29/19 04:56: White Blood Count 5.6, Red Blood Count 3.32L, Hemoglobin 9.4L, Hematocrit 29L, Mean Corpuscular Volume 88, Mean Corpuscular Hemoglobin 28, Mean Corpuscular Hemoglobin Concent 32, Red Cell Distribution Width 16.3H, Platelet Count 267, Mean Platelet Volume 10.7H, Neutrophils (%) (Auto) 71, Lymphocytes (%) (Auto) 15, Monocytes (%) (Auto) 10, Eosinophils (%) (Auto) 4, Basophils (%) (Auto) 1, Neutrophils # (Auto) 4.0, Lymphocytes # (Auto) 0.8L, Monocytes # (Auto) 0.6, Eosinophils # (Auto) 0.2, Basophils # (Auto) 0.0 01/30/19 06:40: Sodium Level 137, Potassium Level 3.8, Chloride Level 104, Carbon Dioxide Level 22, Anion Gap 11, Blood Urea Nitrogen 17, Creatinine 0.68, Estimat Glomerular Filtration Rate > 60, BUN/Creatinine Ratio 25, Glucose Level 116H, Calcium Level 8.7, Magnesium Level 1.3L 01/31/19 18:43: Urine Color YELLOW, Urine Clarity CLEAR, Urine pH 5, Urine Specific [place] 1.010L, Urine Protein NEGATIVE, Urine Glucose (UA) NEGATIVE, Urine Ketones NEGATIVE, Urine Nitrite NEGATIVE, Urine Bilirubin NEGATIVE, Urine Urobilinogen NORMAL, Urine Leukocyte Esterase 2+H, Urine RBC (Auto) NEGATIVE, Urine RBC NONE, Urine WBC 10-25H, Urine Crystals NONE, Urine Bacteria LARGEH, Urine Casts NONE, Urine Mucus NEGATIVE, Urine Culture Indicated YES 02/01/19 06:20: White Blood Count 9.1, Red Blood Count 3.64L, Hemoglobin 10.2L, Hematocrit 32L, Mean Corpuscular Volume 88, Mean Corpuscular Hemoglobin 28, Mean Corpuscular Hemoglobin Concent 32, Red Cell Distribution Width 17.7H, Platelet Count 348, Mean Platelet Volume 10.7H, Neutrophils (%) (Auto) 77H, Lymphocytes (%) (Auto) 11L, Monocytes (%) (Auto) 10, Eosinophils (%) (Auto) 2, Basophils (%) (Auto) 0, Neutrophils # (Auto) 7.1, Lymphocytes # (Auto) 1.0, Monocytes # (Auto) 0.9, Eosinophils # (Auto) 0.2, Basophils # (Auto) 0.0, Sodium Level 138, Potassium Level 3.8, Chloride Level 106, Carbon Dioxide Level 20L, Anion Gap 12, Blood Urea Nitrogen 15, Creatinine 0.75, Estimat Glomerular Filtration Rate > 60, BUN /Creatinine Ratio 20, Glucose Level 135H, Calcium Level 8.9, Magnesium Level 1.5L, Corrected Calcium 9.5, Total Bilirubin 0.8, Aspartate Amino Transf (AST/SGOT) 39H, Alanine Aminotransferase (ALT/SGPT) 59H, Alkaline Phosphatase 91, Total Protein 6.3L, Albumin 3.2 02/02/19 05:30: Sodium Level 138, Potassium Level 3.8, Chloride Level 107, Carbon Dioxide Level 20L, Anion Gap 11, Blood Urea Nitrogen 14, Creatinine 0.74, Estimat Glomerular Filtration Rate > 60, BUN/Creatinine Ratio 19, Glucose Level 105, Calcium Level 8.4L, Magnesium Level 2.0 02/05/19 05:32: Sodium Level 140, Potassium Level 4.0, Chloride Level 106, Carbon Dioxide Level 23, Anion Gap 11, Blood Urea Nitrogen 11, Creatinine 0.76, Estimat Glomerular Filtration Rate > 60, BUN/Creatinine Ratio 14, Glucose Level 119H, Calcium Level 9.1, White Blood Count 7.7, Red Blood Count 3.59L, Hemoglobin 10.0L, Hematocrit 32L, Mean Corpuscular Volume 89, Mean Corpuscular Hemoglobin 28, Mean Corpuscular Hemoglobin Concent 31L, Red Cell Distribution Width 18.2H, Platelet Count 377, Mean Platelet Volume 11.2H, Neutrophils (%) (Auto) 73, Lymphocytes (%) (Auto) 14, Monocytes (%) (Auto) 8, Eosinophils (%) (Auto) 4, Basophils (%) (Auto) 1, Neutrophils # (Auto) 5.6, Lymphocytes # (Auto) 1.1, Monocytes # (Auto) 0.6, Eosinophils # (Auto) 0.3, Basophils # (Auto) 0.1, Corrected Calcium 9.7, Total Bilirubin 0.6, Aspartate Amino Transf (AST/SGOT) 25, Alanine Aminotransferase (ALT/SGPT) 30, Alkaline Phosphatase 94, Total Protein 6.5, Albumin 3.2 02/09/19 06:48: Sodium Level 141, Potassium Level 3.8, Chloride Level 107, Carbon Dioxide Level 25, Anion Gap 9, Blood Urea Nitrogen 12, Creatinine 0.76, Estimat Glomerular Filtration Rate > 60, BUN/Creatinine Ratio 16, Glucose Level 102, Calcium Level 8.7, Magnesium Level 1.9, White Blood Count 6.0, Red Blood Count 3.47L, Hemoglobin 9.5L, Hematocrit 31L, Mean Corpuscular Volume 90, Mean Corpuscular Hemoglobin 27, Mean Corpuscular Hemoglobin Concent 31L, Red Cell Distribution Width 18.1H, Platelet Count 328, Mean Platelet Volume 10.7H, Neutrophils (%) (Auto) 62, Lymphocytes (%) (Auto) 21, Monocytes (%) (Auto) 12, Eosinophils (%) (Auto) 4, Basophils (%) (Auto) 1, Neutrophils # (Auto) 3.7, Lymphocytes # (Auto) 1.3, Monocytes # (Auto) 0.7, Eosinophils # (Auto) 0.2, Basophils # (Auto) 0.1 Microbiology 01/31/19 Urine Culture - Final, Complete Escherichia coli Pending Labs Microbiology Date/Time Source Procedure Growth Status 01/31/19 18:43 Urine Not Otherwise Specified Urine Culture - Final Escherichia coli Complete Laboratory Tests 01/24/19 13:00: Lab Scanned Report Referred Lab Report 01/24/19 15:39: Glucometer 117 01/24/19 20:38: Glucometer 129 01/25/19 05:47: Glucometer 124 01/25/19 05:48: White Blood Count 7.9, Red Blood Count 3.80, Hemoglobin 10.7, Hematocrit 33, Mean Corpuscular Volume 88, Mean Corpuscular Hemoglobin 28, Mean Corpuscular Hemoglobin Concent 32, Red Cell Distribution Width 16.3, Platelet Count 226, Mean Platelet Volume 10.9, Neutrophils (%) (Auto) 76, Lymphocytes (%) (Auto) 12, Monocytes (%) (Auto) 10, Eosinophils (%) (Auto) 1, Basophils (%) (Auto) 0, Neutrophils # (Auto) 6.0, Lymphocytes # (Auto) 0.9, Monocytes # (Auto) 0.8, Eosi nophils # (Auto) 0.1, Basophils # (Auto) 0.0, Sodium Level 139, Potassium Level 4.3, Chloride Level 103, Carbon Dioxide Level 25, Anion Gap 11, Blood Urea Nitrogen 19, Creatinine 0.80, Estimat Glomerular Filtration Rate > 60, BUN/Creatinine Ratio 24, Glucose Level 127, Calcium Level 9.6, Corrected Calcium 10.2, Total Bilirubin 0.6, Aspartate Amino Transf (AST/SGOT) 24, Alanine Gutiérrez otransferase (ALT/SGPT) 21, Alkaline Phosphatase 69, Total Protein 6.4, Albumin 3.2 01/26/19 05:50: White Blood Count 9.1, Red Blood Count 3.77, Hemoglobin 10.6, Hematocrit 33, Mean Corpuscular Volume 88, Mean Corpuscular Hemoglobin 28, Mean Corpuscular Hemoglobin Concent 32, Red Cell Distribution Width 16.4, Platelet Count 253, Mean Platelet Volume 10.7, Sodium Level 138, Potassium Level 4.4, Chloride Level 102, Carbon Dioxide Level 23, Anion Gap 13, Blood Urea Nitrogen 18, Creatinine 0.81, Estimat Glomerular Filtration Rate > 60, BUN/Creatinine Ratio 22, Glucose Level 123, Calcium Level 9.6 01/27/19 15:27: Glucometer 126 01/29/19 04:50: Sodium Level 139, Potassium Level 4.0, Chloride Level 104, Carbon Dioxide Level 24, Anion Gap 11, Blood Urea Nitrogen 19, Creatinine 0.76, Estimat Glomerular Filtration Rate > 60, BUN/Creatinine Ratio 25, Glucose Level 133, Calcium Level 9.0, Corrected Calcium 9.8, Total Bilirubin 0.7, Aspartate Amino Transf (AST/ SGOT) 121, Alanine Aminotransferase (ALT/SGPT) 95, Alkaline Phosphatase 69, Total Protein 5.9, Albumin 3.0 01/29/19 04:56: White Blood Count 5.6, Red Blood Count 3.32, Hemoglobin 9.4, Hematocrit 29, Mean Corpuscular Volume 88, Mean Corpuscular Hemoglobin 28, Mean Corpuscular Hemoglobin Concent 32, Red Cell Distribution Width 16.3, Platelet Count 267, Mean Platelet Volume 10.7, Neutrophils (%) (Auto) 71, Lymphocytes (%) (Auto) 15, Monocytes (%) (Auto) 10, Eosinophils (%) (Auto) 4, Basophils (%) (Auto) 1, Neutrophils # (Auto) 4.0, Lymphocytes # (Auto) 0.8, Monocytes # (Auto) 0.6, Eosinophils # (Auto) 0.2, Basophils # (Auto) 0.0 01/30/19 06:40: Sodium Level 137, Potassium Level 3.8, Chloride Level 104, Carbon Dioxide Level 22, Anion Gap 11, Blood Urea Nitrogen 17, Creatinine 0.68, Estimat Glomerular Filtration Rate > 60, BUN/Creatinine Ratio 25, Glucose Level 116, Calcium Level 8.7, Magnesium Level 1.3 01/31/19 18:43: Urine Color YELLOW, Urine Clarity CLEAR, Urine pH 5, Urine Specific [place] 1.010, Urine Protein NEGATIVE, Urine Glucose (UA) NEGATIVE, Urine Ketones NEGATIVE, Urine Nitrite NEGATIVE, Urine Bilirubin NEGATIVE, Urine Urobilinogen NORMAL, Urine Leukocyte Esterase 2+, Urine RBC (Auto) NEGATIVE, Urine RBC NONE, Urine WBC 10-25, Urine Crystals NONE, Urine Bacteria LARGE, Urine Casts NONE, Urine Mucus NEGATIVE, Urine Culture Indicated YES 02/01/19 06:20: White Blood Count 9.1, Red Blood Count 3.64, Hemoglobin 10.2, Hematocrit 32, Mean Corpuscular Volume 88, Mean Corpuscular Hemoglobin 28, Mean Corpuscular Hemoglobin Concent 32, Red Cell Distribution Width 17.7, Platelet Count 348, Mean Platelet Volume 10.7, Neutrophils (%) (Auto) 77, Lymphocytes (%) (Auto) 11, Monocytes (%) (Auto) 10, Eosinophils (%) (Auto) 2, Basophils (%) (Auto) 0, Neutrophils # (Auto) 7.1, Lymphocytes # (Auto) 1.0, Monocytes # (Auto) 0.9, Eosinophils # (Auto) 0.2, Basophils # (Auto) 0.0, Sodium Level 138, Potassium Level 3.8, Chloride Level 106, Carbon Dioxide Level 20, Anion Gap 12, Blood Urea Nitrogen 15, Creatinine 0.75, Estimat Glomerular Filtration Rate > 60, BUN/Creatinine Ratio 20, Glucose Level 135, Calcium Level 8.9, Magnesium Level 1.5, Corrected Calcium 9.5, Total Bilirubin 0.8, Aspartate Amino Transf (AST/SGOT) 39, Alanine Aminotransferase (ALT/SGPT) 59, Alkaline Phosphatase 91, Total Protein 6.3, Albumin 3.2 02/02/19 05:30: Sodium Level 138, Potassium Level 3.8, Chloride Level 107, Carbon Dioxide Level 20, Anion Gap 11, Blood Urea Nitrogen 14, Creatinine 0.74, Estimat Glomerular Filtration Rate > 60, BUN/Creatinine Ratio 19, Glucose Level 105, Calcium Level 8.4, Magnesium Level 2.0 02/05/19 05:32: Sodium Level 140, Potassium Level 4.0, Chloride Level 106, Carbon Dioxide Level 23, Anion Gap 11, Blood Urea Nitrogen 11, Creatinine 0.76, Estimat Glomerular Filtration Rate > 60, BUN/Creatinine Ratio 14, Glucose Level 119, Calcium Level 9.1, White Blood Count 7.7, Red Blood Count 3.59, Hemoglobin 10.0, Hematocrit 32, Mean Corpuscular Volume 89, Mean Corpuscular Hemoglobin 28, Mean Corpuscular Hemoglobin Concent 31, Red Cell Distribution Width 18.2, Platelet Count 377, Mean Platelet Volume 11.2, Neutrophils (%) (Auto) 73, Lymphocytes (%) (Auto) 14, Monocytes (%) (Auto) 8, Eosinophils (%) (Auto) 4, Basophils (%) (Auto) 1, Neutrophils # (Auto) 5.6, Lymphocytes # (Auto) 1.1, Monocytes # (Auto) 0.6, Eosinophils # (Auto) 0.3, Basophils # (Auto) 0.1, Corrected Calcium 9.7, Total Bilirubin 0.6, Aspartate Amino Transf (AST/SGOT) 25, Alanine Aminotransferase (ALT/SGPT) 30, Alkaline Phosphatase 94, Total Protein 6.5, Albumin 3.2 02/09/19 06:48: Sodium Level 141, Potassium Level 3.8, Chloride Level 107, Carbon Dioxide Level 25, Anion Gap 9, Blood Urea Nitrogen 12, Creatinine 0.76, Estimat Glomerular Filtration Rate > 60, BUN/Creatinine Ratio 16, Glucose Level 102, Calcium Level 8.7, Magnesium Level 1.9, White Blood Count 6.0, Red Blood Count 3.47, Hemoglobin 9.5, Hematocrit 31, Mean Corpuscular Volume 90, Mean Corpuscular Hemoglobin 27, Mean Corpuscular Hemoglobin Concent 31, Red Cell Distribution Width 18.1, Platelet Count 328, Mean Platelet Volume 10.7, Neutrophils (%) (Auto) 62, Lymphocytes (%) (Auto) 21, Monocytes (%) (Auto) 12, Eosinophils (%) (Auto) 4, Basophils (%) (Auto) 1, Neutrophils # (Auto) 3.7, Lymphocytes # (Auto) 1.3, Monocytes # (Auto) 0.7, Eosinophils # (Auto) 0.2, Basophils # (Auto) 0.1 Discharge Home Medications: Active Scripts Active Lotrimin AF (Miconazole Nitrate) 90 Gm Powder 0 Gm TOP BID Furosemide 20 Mg Tablet 20 Mg PO Q48H Hydrocodon-Acetaminophn 10-325 (Hydrocodone/Acetaminophen) 1 Each Tablet 1 Ea PO Q4H PRN Nitrofurantoin S[place]-Mcr 100 mg (Nitrofurantoin Monohyd/M-Cryst) 100 Mg Capsule 100 Mg PO BID Reported Ex-Lax (Sennosides) 15 Mg Tab.chew 2 Tab.chew PO BID PRN CHOCOLATE SQUARES Solifenacin Succinate 5 Mg Tablet 5 Mg PO 1800 Aspir 81 (Aspirin) 81 Mg Tablet.dr 81 Mg PO DAILY Lyrica (Pregabalin) 150 Mg Capsule 150 Mg PO BID Flomax (Tamsulosin HCl) 0.4 Mg Cap 0.4 Mg PO 1800 Glucosamine Chondroitin Tab (Gluc Beckham/Chondro Beckham A/Vit C/Mn) 1 Each Tablet 1 Tab PO DAILY Ruben Multi For Men Tablet (Mv-Mn/FA/Lycopene/Lut/Hb#178) 1 Each Tablet 1 Tab PO DAILY [place] (Saw [place] Fruit) 450 Mg Capsule 450 Mg PO DAILY Fish Oil 1,000 mg Capsule ([place] 3 Polyunsat Fatty Acids) 1,000 Mg Cap 1,000 Mg PO DAILY Vitamin B-12 (Cyanocobalamin (Vitamin B-12)) 1,000 Mcg Tablet 1,000 Mcg PO DAILY Zinc 50 Mg Tablet 50 Mg PO DAILY Levothyroxine Sodium 200 Mcg Tablet 200 Mcg PO DAILY TAKE ALONG WITH 50MCG TABLET Atorvastatin Calcium 40 Mg Tablet 40 Mg PO DAILY Synthroid (Levothyroxine Sodium) 50 Mcg Tablet 50 Mcg PO DAILY TAKE ALONG WITH 200MCG TABLET Duloxetine HCl 60 Mg Capsule.dr 60 Mg PO HS Metformin HCl ER (Metformin HCl) 1,000 Mg Tab.er.24 1,000 Mg PO BID WITH MEALS Myrbetriq (Mirabegron) 50 Mg Tab.er.24h 50 Mg PO 1200 Pantoprazole Sodium 40 Mg Tablet.dr 40 Mg PO 1800 Potassium Chloride 8 Meq Tablet.er 8 Meq PO DAILY Instructions to patient/family Please see electronic discharge instructions given to patient. Diagnosis/Problems Diagnosis/Problems (1) Status post total right knee replacement Status: Acute (2) Primary osteoarthritis of right knee Status: Chronic (3) Essential hypertension Status: Chronic (4) Constipation Status: Chronic Qualifiers: Qualified Codes: K59.01 - Slow transit constipation (5) CAD (coronary artery disease) Status: Chronic Qualifiers: Qualified Codes: I25.10 - Atherosclerotic heart disease of [place] coronary artery without angina pectoris (6) Hypothyroidism Status: Chronic Qualifiers: Qualified Codes: E03.9 - Hypothyroidism, unspecified (7) Type II diabetes mellitus Status: Chronic Qualifiers: Qualified Codes: E11.59 - Type 2 diabetes mellitus with other circulatory complications (8) LILIAN (obstructive sleep apnea) Status: Chronic (9) Systolic murmur Status: Chronic (10) GERD without esophagitis Status: Chronic (11) Postoperative anemia Status: Acute (12) BPH (benign prostatic hyperplasia) Status: Chronic Qualifiers: Qualified Codes: N40.0 - Benign prostatic hyperplasia without lower urinary tract symptoms (13) Anguiano catheter in place Status: Acute (14) History of coronary artery stent placement Status: Chronic Clinical Quality Measures DVT/VTE Risk/Contraindication: Risk Factor Score Per Nursin RFS Level Per Nursing on Admit: 4+=Very High AYLIN BERUMEN DO Feb 10, 2019 08:07
[2019-02-10] MEDS: KCL 10 MEQ TAB (MICRO K) PO SCH (08:14)
[2019-02-10] MEDS: POLYETHYLENE GLYCOL 17 GM (MIRALAX) PACK PO SCH (08:14)
[2019-02-10] MEDS: SENNA W/DOCUSATE (SENOKOT S) TABLET PO SCH (08:14)
[2019-02-10] MEDS: FUROSEMIDE 20 MG (LASIX) TAB PO SCH (08:14)
[2019-02-10] MEDS: TAMSULOSIN 0.4 MG (FLOMAX) CAP PO SCH (08:14)
[2019-02-10] MEDS: ASPIRIN 81 MG CHEW (CHILDREN'S ASA) PO SCH (08:14)
[2019-02-10] MEDS: MICONAZOLE 2% POWDER (DESENEX AF) 90 GM TOP SCH (08:15)
[2019-02-10] MEDS: BISACODYL 10 MG SUPP (DULCOLAX) PR SCH (08:15)
--- NOTE | 2019-02-10 12:14 | Cardiology Progress Note ---
Cardiology SOAP Progress Note Subjective: No significant complaints. Objective: I&O/Vital Signs 02/10/19 02/10/19 05:30 09:59 Temp 98.2 Pulse 79 Resp 20 B/P (MAP) 154/74 (100) Pulse Ox 93 O2 Delivery Room Air Room Air 02/10/19 00:00 Intake Total 350 ml Output Total 300 ml Balance 50 ml Weight (Pounds): 282 Weight (Ounces): 0.0 Weight (Calculated Kilograms): [id number] Constitutional: AAO x 3, well-developed, well-nourished Respiratory: lungs clear to percussion, lungs clear to auscultation Cardiovascular: regular rate-rhythm, S1 and S2, systolic murmur Gastrointestional: audible bowel sounds Extremities: swelling (moderate, bilateral leg swelling; R>L); No clubbing, No cyanosis Neurologic/Psychiatric: oriented x 3, grossly intact Skin: No rash on exposed areas, No ulcerations on exposed areas; other (S/P right knee replacement - dressing in place D&I) Results/Procedures: Labs Microbiology 01/31/19 Urine Culture - Final, Complete Escherichia coli A/P: Assessment/Dx: Hip surgery, CAD, Severe aortic stenosis, LVH, COPD Plan: S/p right TKR on 01-23-[address] Byrnes. Continue inpatient rehabilitation. Severe aortic stenosis. Echocardiogram of 01-19-19 showed concentric hypertrophy. LVEF 70-75%. LA mod dilated. Severe Ao stenosis, mean gradient 53 mmHg, valve area 1.1 sq sm. RVSP 20 mmHg. Mild MR. Will defer to Dr. Giraldo for decision for aortic valve surgery. H/o CAD, s/p two cor stents in 1995 following [place], details unknown. No active issues. MPI of January 19, 2019 showed no evidence of any significant myocardial ischemia or infarction. LVEF 91% Bilateral leg swelling, likely due to venous insufficiency Elec abn due to diuretics Quit smoking in 1995 DJD H/o hyperlipidemia - statin tx - followed by his PCP LILIAN, non-compliant with CPAP Mild COPD on PFTs of Mar 2019 Elevated liver enzymes of undetermined etiology - Dr Juárez managing UTI, managed by Dr Juárez Thank you for your consultation. Please call me if you have any questions. Kiara Daniel MD, FACP, FACC, FSCAI, FHRS, CCDS Interventional Cardiology Cardiac Electrophysiology Vascular Medicine and Endovascular Interventions Karley DANIEL MD Feb 10, 2019 12:14
[2019-02-10 13:29] VITALS: BP 154/74
--- NOTE | 2019-02-10 13:35 | NUR ---
Per Dr. Khalil... continue with Flomax- 0.4 MG PO BID, Vesicare- 5 MG PO daily, and Myrbetriq- 50 MG PO daily. Patient to call office on 02/12/19, to schedule F/U appointment with Dr. Khalil. Flomax called in to [facility]. Patient/daughter verbalize understanding.
--- NOTE | 2019-02-10 15:42 | NUR ---
F/U faxes sent to Dr. Khalil and Dr. Bach. Patient/daughter also instructed to call offices on 02/12/19, to schedule F/U appointments.
--- NOTE | 2019-02-12 11:05 | Therapy Team Discharge Summary ---
Therapy Discharge Summary Discharge Recommendations Date of Discharge Feb 10, 2019 at 13:30 Therapy D/C Recommendations: Home w/ Family Support, Occupational Therapy Home Care, Physical Therapy Home Care, Scheduled Assistance Physical Therapy This patient was admitted to ARU post acute hospital stay due to elective right TKR. Prior to his hospital admission, his PLOF is slightly unclear, he was using a power chair for most mobility, had and did use a arnav lift and used a stair lift to go up/down his stairs. He did not regularly walk, but reported a few days before his surgery, we was "practicing" walking and walked 12 ft with his walker in his home. Upon admission to ARU, pt required use of a sit to stand lift for transfers and required assist for bed mobiltiy. Treatment focused on right LE strength and rOM with progression of activity to address bed mobility, transfers and gait initiation. His preference for mobility was the sit to stand lift, but did demonstrate ability to do a partial sit to stand transfer surface to surface if placed at a 45 degree angle to each other. He is unable to effectively walk with a FWW, rather was walking 8 ft at a time in the // bars with CGA. In addition, he relied heavily on the bars to pull himself to a stand. Pt to discharge home with resources in place in terms of the lift and transfers. Recommend HHC to follow. Occupational Therapy Decreased Activ Tolerance, Decreased UE Strength, Dependent Transfers, Impaired Bed Mobility, Impaired Funct Balance, Impaired I ADL's, Impaired Self-Care Skills, Restricted Funct UE ROM PT Fpc Goals Fpc Goals PT Fpc Goals Time Frame: Feb 21, 2019 Transfers (B,C,W/C) (FIM): 5 Roll Left to Right (QC): 6 Sit to Lying (QC): 6 Lying-Sitting on Side/Bed(QC): 6 Sit to Stand (QC): 6 Chair/Xfz-pf-Uqlpj Xfer(QC): 5 Car Transfer (QC): 4 Does the Patient Walk: No and Walking Goal IS indicated Gait (FIM): 2 Gait distance (FIM): 1=up to 49 ft Distance: 20 ft Walk 10 feet (QC): 6 Walk 10ft-Uneven Surface(QC): 4 Walk 50ft with 2 Turns (QC): 88 Walk 150 ft (QC): 88 Gait Assistive Device: FWW Does the Pt use WC or Scooter?: Yes Wheelchair (FIM): 6 Wheelchair distance (FIM): 3=150 ft Wheel 50 feet with 2 turns (QC: 6 Stairs (FIM): 0 1 Step (curb) (QC): 9 4 Steps (QC): 9 12 Steps (QC): 9 Picking up an Object (QC): 88 goals not fully met at this time. OT Fpc Goals Linting Machine Operator Goals Time Frame: Feb 07, 2019 Eating (FIM): 6 Eating (QC): 6 Oral Hygiene (QC): 6 Grooming(FIM): 6 Bathing(FIM): 4 Shower/Bathe Self (QC): 4 Upper Body Dressing(FIM): 5 Upper Body Dressing (QC): 4 Lower Body Dressing(FIM): 5 Lower Body Dressing (QC): 4 On/Off Footwear (QC): 4 Toileting(FIM): 5 Toileting Hygiene (QC): 4 Transfers (B,C,W/C) (FIM): 5 Toilet/Commode Transfer(FIM): 5 Toilet/Commode Transfer (QC): 4 Shower Transfer(FIM): 4 Additional Goals: 1-Demonstrate ADL Tasks, 2-Verbalize Understanding, 3- ImproveStrength/Glenn 1=Demonstrate adherence to instructed precautions during ADL tasks. 2=Patient will verbalize/demonstrate understanding of assistive devices/modifications for ADL. 3=Patient will improve strength/tolerance for activity to enable patient to perform ADL's. CIRO JIMENEZ PT Feb 12, 2019 11:05
== END 2019-02-10 13:30 | disposition home health service (06) | DRG 560 ==
PROVIDERS: ADMIT Internal Medicine; ATTEND Internal Medicine
DX: Z47.1 Aftercare following joint replacement surgery (principal); N39.0 Urinary tract infection, site not specified; E11.9 Type 2 diabetes mellitus without complications; I10 Essential (primary) hypertension; J44.9 Chronic obstructive pulmonary disease, unspecified; N40.1 Benign prostatic hyperplasia with lower urinary tract symptoms; R33.9 Retention of urine, unspecified; I35.0 Nonrheumatic aortic (valve) stenosis; G47.33 Obstructive sleep apnea (adult) (pediatric); N32.81 Overactive bladder; K21.9 Gastro-esophageal reflux disease without esophagitis; E78.5 Hyperlipidemia, unspecified; D64.9 Anemia, unspecified; K59.01 Slow transit constipation; I95.9 Hypotension, unspecified; R74.8 Abnormal levels of other serum enzymes; B96.20 Unspecified Escherichia coli [E. coli] as the cause of diseases classified elsewhere; R32 Unspecified urinary incontinence; I87.2 Venous insufficiency (chronic) (peripheral); N20.0 Calculus of kidney; M10.9 Gout, unspecified; R01.1 Cardiac murmur, unspecified; I25.2 Old myocardial infarction; Z87.891 Personal history of nicotine dependence; Z79.84 Long term (current) use of oral hypoglycemic drugs; Z95.5 Presence of coronary angioplasty implant and graft
CPT/HCPCS: 36415; 76937; 80048; 80053; 81000; 82962; 83735; 85025; 85027; 87077; 87088; 87186

== ENCOUNTER 2019-04-27 12:56 | Outpatient (RCR) | payer MEDICARE, OTHER ==
[~2019-04-27 12:56] MED LIST changes: +FURO20TA4 PO; +HYDR-3820 PO; +MICO90PO TOP; +NITR100C10 PO; +SENN15TA5 PO
[2019-05-14] MEDS ORDERED: L.AC1CAP6 PO (14:31)
[2019-05-14] MEDS ORDERED: CYAN250010 PO (14:31)
[2019-05-14] MEDS ORDERED: MELA10CA2 PO (14:31)
[2019-05-14] MEDS ORDERED: FURO20TA4 PO (14:31)
[2019-05-14] MEDS ORDERED: CALC-823 PO (14:31)
[2019-05-14] MEDS ORDERED: LEVO200T PO (14:31)
[2019-05-14] MEDS ORDERED: SENN-40 PO (14:31)
[2019-05-14] MEDS ORDERED: DESM0.2T29 PO (14:31)
== END 2019-05-17 13:44 | disposition home or self-care (01) ==
PROVIDERS: ATTEND Orthopaedic Surgery
DX: Z47.1 Aftercare following joint replacement surgery (principal); Z96.651 Presence of right artificial knee joint

== ENCOUNTER 2019-05-14 11:21 | Outpatient (CLI) | payer MEDICARE, OTHER ==
[~2019-05-14] VITALS: Ht 180 cm; Wt 113.6 kg
[~2019-05-14 11:21] MED LIST changes: -TAMS0.4C98 PO; +TMSL.4C PO
[2019-05-14 12:17] LABS: BASOPHILS % (AUTO) 1 % (0-10); EOSINOPHILS # (AUTO) 0.2 10^3/uL (0.0-0.3); EOSINOPHILS % (AUTO) 2 % (0-10); HEMATOCRIT 39 % (40-54); HEMOGLOBIN 12.3 G/DL (13.3-17.7); LYMPHOCYTES % (AUTO) 11 % (12-44); MEAN CORPUSCULAR HEMOGLOBIN 25 PG (25-34); MEAN CORPUSCULAR HGB CONC 32 G/DL (32-36); MEAN CORPUSCULAR VOLUME 80 FL (80-99); MEAN PLATELET VOLUME 10.3 FL (7.4-10.4); MONOCYTES # (AUTO) 0.6 X 10^3 (0.0-1.0); MONOCYTES % (AUTO) 7 % (0-12); NEUTROPHILS % (AUTO) 80 % (42-75); PLATELET COUNT 227 10^3/uL (130-400); RED CELL DISTRIBUTION WIDTH 18.8 % (10.0-14.5); WHITE BLOOD COUNT 8.8 10^3/uL (4.3-11.0)
[2019-05-14 12:34] LABS: BUN/CREATININE RATIO 30; CALCIUM 9.8 MG/DL (8.5-10.1); CARBON DIOXIDE 23 MMOL/L (21-32); CHLORIDE 103 MMOL/L (98-107); GFR ESTIMATED > 60; GLUCOSE 121 MG/DL (70-105); POTASSIUM 4.4 MMOL/L (3.6-5.0); SODIUM 137 MMOL/L (135-145)
[2019-05-14 12:37] LABS: PROTHROMBIN TIME PATIENT 13.1 SEC (12.2-14.7)
[2019-05-14 12:40] VITALS: BP 109/73
[2019-05-14 13:07] LABS: BILIRUBIN,URINE NEGATIVE (NEGATIVE); CLARITY,URINE CLEAR; COLOR,URINE YELLOW; GLUCOSE, URINE (UA) NEGATIVE (NEGATIVE); KETONES,URINE NEGATIVE (NEGATIVE); LEUKOCYTE ESTERASE ,URINE 2+ (NEGATIVE); NITRITE,URINE NEGATIVE (NEGATIVE); PH,URINE 5.5 (5-9); PROTEIN,URINE NEGATIVE (NEGATIVE)
[2019-05-14 13:32] LABS: BACTERIA,URINE LARGE /HPF; SQUAMOUS EPITHELIAL CELL,UR 0-2 /HPF; WBC,URINE TNTC /HPF
[2019-05-14] MEDS ORDERED: MELA10CA2 PO (14:31)
[2019-05-14] MEDS ORDERED: FURO20TA4 PO (14:31)
[2019-05-14] MEDS ORDERED: CYAN250010 PO (14:31)
[2019-05-14] MEDS ORDERED: CALC-823 PO (14:31)
[2019-05-14] MEDS ORDERED: L.AC1CAP6 PO (14:31)
[2019-05-14] MEDS ORDERED: DESM0.2T29 PO (14:31)
[2019-05-14] MEDS ORDERED: SENN-40 PO (14:31)
[2019-05-14] MEDS ORDERED: LEVO200T PO (14:31)
--- NOTE | 2019-05-22 10:33 | Progress Note-Pre Operative ---
Pre-Operative Progress Note H&P Reviewed The H&P was reviewed, patient examined and no changes noted. Date Seen by Provider: May 22, 2019 Time Seen by Provider: 07:40 Date H&P Reviewed: May 22, 2019 Time H&P Reviewed: 07:40 Pre-Operative Diagnosis: Primary Osteoarthritis Left knee STARR LR DO May 22, 2019 10:33 POS
--- NOTE | 2019-05-22 10:34 | Progress Note-Post Operative ---
Post-Operative Progess Note Surgeon (s)/Dye Tub Operator (s) Surgeon STARR LR DO Dye Tub Operator: Forrest Knight OPERATOR MAINTAINER-Chris Pre-Operative Diagnosis Primary Osteoarthritis Left knee Post-Operative Diagnosis same Procedure & Operative Findings Date of Procedure 05/22/19 Procedure Performed/Findings Left Total Knee Arthroplasty Anesthesia Type General Estimated Blood Loss Estimated blood loss (mL): 200 ml Specimens/Packing Specimens Removed none STARR LR DO May 22, 2019 10:34 POS
[2019-06-02] MEDS ORDERED: CEFD300C3 PO (10:48)
[2019-06-02] MEDS ORDERED: BETH25TA11 PO (10:48)
== END 2019-05-14 12:15 | disposition home or self-care (01) ==
LOC: PREOP 11:21
PROVIDERS: ATTEND Orthopaedic Surgery
DX: Z01.818 Encounter for other preprocedural examination (principal); Z01.812 Encounter for preprocedural laboratory examination; M17.12 Unilateral primary osteoarthritis, left knee
CPT/HCPCS: 36415; 80048; 81000; 85025; 85610; 86850; 86900; 86901; 87077; 87081; 87088; 87186

== ENCOUNTER 2019-05-22 05:47 | Inpatient (IN) | payer MEDICARE, OTHER ==
[~2019-05-22] VITALS: Ht 180 cm; Wt 113.6 kg
[2019-05-22] VITALS (13 sets, daily range): BP systolic 99–160; BP diastolic 54–87
[~2019-05-22 05:47] MED LIST changes: +CALC-823 PO; +CYAN250010 PO; +L.AC1CAP6 PO; +LEVO200T PO; +MELA10CA2 PO; +SENN-40 PO; +TAMS0.4C98 PO; -TMSL.4C PO
[2019-05-22] MEDS ORDERED: ONDANSETRON 4 MG/2 ML (SDV) Z0FRAN IVP ONE (06:15)
[2019-05-22] MEDS ORDERED: CELECOXIB 100 MG (CeleBREX) CAP PO ONE (06:15)
[2019-05-22] MEDS ORDERED: ceFAZolin 2 GM/50 ML NS 50 ML IV ONE (06:15)
[2019-05-22] MEDS ORDERED: GABAPENTIN 600 MG (NEURONTIN) TAB PO ONE (06:15)
[2019-05-22] MEDS ORDERED: LEVOTHYROXINE 50 MCG (LEVOTHROID) TAB PO SCH (06:30)
[2019-05-22] MEDS ORDERED: BUPIVACAINE 0.5% 30 ML (SENSORCAINE) VIAL ONE (06:52)
[2019-05-22] MEDS ORDERED: fentaNYL INJECTION 100 MCG/2 ML AMP ONE (06:52)
[2019-05-22] MEDS ORDERED: MIDAZOLAM 2 MG/2 ML (VERSED) VIAL ONE (06:53)
[2019-05-22] MEDS ORDERED: GENTAMICIN 40 MG/ML 2 ML INJ SDV ONE (07:05)
[2019-05-22] MEDS ORDERED: NEO/POLY/BAC (NEOSPORIN) OINT 15 GM TUBE ONE (07:05)
[2019-05-22] MEDS ORDERED: proPOfol 200 MG/20 ML (DIPRIVAN) VIAL IV ONE (07:07)
[2019-05-22] MEDS ORDERED: SEVOFLURANE (ULTANE) 15 ML INHAL SOLN ONE ×8 (07:07→09:59)
[2019-05-22] MEDS: LACTATED RINGERS 1,000 ML IV PRN ×2 (07:08→07:48)
[2019-05-22] MEDS ORDERED: ONDANSETRON 4 MG (ZOFRAN) ORAL DISSOLVE TAB PO PRN (07:15)
[2019-05-22] MEDS ORDERED: D5 1/2 NS 1000 ML IV SOLUTION 1,000 ML IV SCH (07:15)
[2019-05-22] MEDS ORDERED: MILK OF MAGNESIA 400 MG/5 ML 30 ML UDC PO PRN (07:15)
[2019-05-22] MEDS ORDERED: morphine INJ 4 MG/ML 1 ML (VIAL/SYRINGE) IV PRN (07:15)
[2019-05-22] MEDS ORDERED: NON-FORMULARY MEDICATION 1 EA EA (Potassium Chloride 8 MEQ) PO SCH (07:15)
[2019-05-22] MEDS ORDERED: diphenhydrAMINE 50 MG/ML INJ (BENADRYL) IV PRN (07:15)
[2019-05-22] MEDS ORDERED: ONDANSETRON 4 MG/2 ML (SDV) Z0FRAN IV PRN (07:15)
[2019-05-22] MEDS ORDERED: TRANEXAMIC ACID 100 MG/ML 10 ML INJECTION IV ONE (07:31)
[2019-05-22] MEDS ORDERED: INTRA-ARTICULAR IU ONE ×4 (08:30)
[2019-05-22] MEDS ORDERED: NON-FORMULARY MEDICATION 1 EA EA (Aspirin (Aspir 81) 81 MG) PO SCH (09:00)
[2019-05-22] MEDS ORDERED: SENNOSIDES PO SCH (09:00)
[2019-05-22] MEDS ORDERED: DOCUSATE SODIUM PO SCH (09:00)
[2019-05-22] MEDS ORDERED: ONDANSETRON 4 MG/2 ML (SDV) Z0FRAN IVP PRN (10:30)
[2019-05-22] MEDS ORDERED: morphine INJ 10 MG/ML 1ML (SYR OR VIAL) IVP ONE (10:30)
[2019-05-22] MEDS ORDERED: HYDROmorphone 2 MG/ML VIAL (DILAUDID) IV ONE (10:30)
[2019-05-22] MEDS ORDERED: fentaNYL INJECTION 100 MCG/2 ML AMP IVP ONE (10:30)
[2019-05-22] MEDS ORDERED: MEPERIDINE (DEMEROL) INJ 50 MG/ML IVP ONE (10:30)
[2019-05-22] MEDS ORDERED: HYDROmorphone 2 MG/ML VIAL (DILAUDID) ONE (10:33)
[2019-05-22] MEDS: ACETAMINOPHEN 500 MG TAB (TYLENOL) PO SCH ×2 (12:00→17:51)
[2019-05-22] MEDS: KETOROLAC 30 MG/ML VIAL IV SCH ×2 (12:00→17:52)
[2019-05-22] MEDS ORDERED: NON-FORMULARY MEDICATION 1 EA EA (Mirabegron (Myrbetriq) 50 MG) PO SCH (12:00)
--- NOTE | 2019-05-22 12:08 | Diagnostic Imaging Report ---
EXAMINATION: Left knee at 1045 hours. INDICATION: Postop. TECHNIQUE: AP and lateral views were obtained. COMPARISON: There are no prior studies available for comparison. FINDINGS: There is no fracture or acute bony abnormality evident. There is a total knee prosthesis in place. The prosthetic components seem to be in good position. There are also skin alonso along the anterior aspect of the knee joint and there is a fair amount of gas in the soft tissues within the joint and along the anterior aspect of the distal femur. The soft tissues are otherwise unremarkable. IMPRESSION: Stable post operative left knee. Dictated by: Dictated on workstation # [id number]
[2019-05-22] MEDS ORDERED: PATIENT MAY USE OWN MEDS, ALL MC SCH (13:00)
[2019-05-22] MEDS: HYDROcodone/APAP 10 MG/325 MG (LORTAB) TAB PO PRN (13:42)
[2019-05-22] MEDS: D5 1/2 NS 1000 ML IV SOLUTION 1,000 ML IV SCH (13:44)
[2019-05-22] MEDS: KCL 8 MEQ (MICRO K) TABLET PO SCH (15:04)
[2019-05-22] MEDS: ENOXAPARIN 40 MG/0.4 ML (LOVENOX) SYR SC SCH (15:04)
[2019-05-22] MEDS: FUROSEMIDE 20 MG (LASIX) TAB PO SCH (15:04)
[2019-05-22] MEDS: TAMSULOSIN 0.4 MG (FLOMAX) CAP PO SCH ×2 (15:05→21:24)
[2019-05-22] MEDS: PREGABALIN 150 MG (LYRICA) CAPSULE PO SCH ×2 (15:05→21:24)
[2019-05-22] MEDS: TROSPIUM 20 MG (SANCTURA) TAB PO SCH (15:56)
[2019-05-22] MEDS: ceFAZolin 2 GM/50 ML NS 50 ML IV SCH (15:56)
[2019-05-22] MEDS ORDERED: NON-FORMULARY MEDICATION 1 EA EA (Metformin HCl (Metformin HCl ER) 1,000 MG) PO SCH (17:00)
[2019-05-22] MEDS: metFORMIN XR 500 MG (GLUCOPHAGE XR) TAB PO SCH (17:51)
[2019-05-22] MEDS: PANTOPRAZOLE 40 MG (PROTONIX) TAB PO SCH (17:51)
[2019-05-22] MEDS ORDERED: SOLIFENACIN 5 MG TAB (VESICARE) NON-FORMULARY PO SCH (18:00)
[2019-05-22] MEDS: AUGMENTIN 875 MG TAB (AMOXICILLIN/CLAVULANATE) PO SCH (18:03)
[2019-05-22] MEDS ORDERED: NON-FORMULARY MEDICATION 1 EA EA (Melatonin 10 MG) PO SCH (21:00)
[2019-05-22] MEDS ORDERED: NON-FORMULARY MEDICATION 1 EA EA (Duloxetine HCl 60 MG) PO SCH (21:00)
[2019-05-22] MEDS ORDERED: DESMOPRESSIN ACETATE PO SCH (21:00)
[2019-05-22] MEDS: DULoxetine 30 MG (CYMBALTA) CAP PO SCH (21:23)
[2019-05-22] MEDS: SENNA W/DOCUSATE (SENOKOT S) TABLET PO SCH (21:24)
[2019-05-22] MEDS: MELATONIN 3 MG TABLET PO SCH (21:25)
[2019-05-23] MEDS: KETOROLAC 30 MG/ML VIAL IV SCH ×2 (00:19→10:23)
[2019-05-23] MEDS: ceFAZolin 2 GM/50 ML NS 50 ML IV SCH (00:19)
[2019-05-23] MEDS: ACETAMINOPHEN 500 MG TAB (TYLENOL) PO SCH ×5 (00:20→23:06)
[2019-05-23] MEDS: D5 1/2 NS 1000 ML IV SOLUTION 1,000 ML IV SCH ×3 (00:23→15:58)
--- NOTE | 2019-05-23 03:52 | OPERATIVE REPORT ---
DATE OF SERVICE: 05/22/2019 PREOPERATIVE DIAGNOSIS: Primary osteoarthritis, left knee. POSTOPERATIVE DIAGNOSIS: Primary osteoarthritis, left knee. PROCEDURE: Left total knee arthroplasty. SURGEON: Starr Lr DO ROOM SERVICE BELLHOP: ZACK Logan SURGICAL PLAY READER DUTIES: Forrest Knight, rn surgical was utilized throughout the entire procedure for patient positioning, soft tissue retraction, assistance in placement of total knee implants, wound closure, dressing application and the patient transfer. ANESTHESIA: General with femoral and genicular block. ESTIMATED BLOOD LOSS: 200 mL. COMPLICATIONS: None. OPERATIVE TIME: Please see anesthesia report. INDICATIONS AND FINDINGS: The patient is an 78-year-old male seen with chief complaint of progressive left knee pain. The patient had varus deformity of left knee and lacked approximately 10 degrees of extension. He had undergone a previous right total knee arthroplasty by myself and had done well. The patient was taken to surgery where a total knee arthroplasty was performed on the left utilizing the [employer] Teez.mobiguard total knee system with a 75 mm cemented femoral component, a 34 mm 3-pronged all polyethylene cemented standard patellar component, an 83 mm cemented fixed I-beam tibial component, a 10 mm anterior stabilized tibial bearing implant with Palacos bone cement utilized. PROCEDURE IN DETAIL: The patient was seen by anesthesia and femoral and genicular nerve block were performed under ultrasound to decrease postoperative pain and decrease amount of medication required during the surgical procedure. The patient was then transferred to the operating room where general inhalation anesthetic was administered. A well-padded pneumatic tourniquet was placed about the upper aspect of left thigh. A ChloraPrep and sterile drape of the left lower extremity was performed. The left leg was elevated, exsanguinated and the tourniquet was inflated to 300 mmHg pressure. An anterior longitudinal midline incision was made over the anterior surface of the left knee. The incision was deepened through a medial parapatellar incision. Osteophytes from the medial and lateral femoral condyle were removed with a bone rongeur. A ship's pilot hole was then drilled in the distal femur. Intramedullary marina was inserted utilizing a 5-degree cutting angle, a distal femoral cutting guide was assembled and distal femoral osteotomy was completed. The distal femur was sized to a 75 mm component. A 4-way cutting guide was assembled. Anterior, posterior and chamfer cuts of the distal femur were made. The remnants of the medial and lateral menisci were excised. The anterior cruciate ligament was excised. The tibia was subluxed anteriorly. A ship's pilot hole was then drilled in the proximal tibia. An intramedullary marina was inserted measuring off the exposed bone over the proximal medial tibia. A proximal tibial cutting guide was assembled and proximal tibial osteotomy was completed. Subperiosteal dissection was performed on the proximal medial tibia. The patient continued to lack 2 degrees of full extension. The distal femoral cutting guide was reassembled. An additional 1 mm of bone was removed from the distal femur. The 4-way cutting guide was reassembled and additional chamfer cuts were made. The knee could then be fully extended with a 10 mm gap sizer. Osteophytes were removed from the rim of the patella. The posterior aspect of patella was resected through a cutting guide and drilled through the drill guide. Provisional components were inserted. The knee was cycled through a range of motion. Rotation of the tibial component was noted and marked on the proximal tibia. The proximal tibia was then broached to accept the I-beam stem portion of the implant. Palacos bone cement was then mixed. This was then pressurized into the proximal tibia. The tibial component was cemented in place. Cement was placed about the distal femur and the femoral component and the femoral component was cemented into place. Excess cement was removed. The knee was taken to full extension with provisional tibial bearing implant. The patellar component was cemented in place and held with a clamp. Excessive cement was removed. The tourniquet was released. Hemostasis was obtained with electrocautery. The knee was cycled through a range of motion. No evidence of instability on full flexion and mid range flexion was noted. The provisional tibial bearing implant was removed. The knee again was irrigated extensively with normal saline solution. All excessive cement was removed. The 10 mm anterior stabilized tibial bearing implant was then inserted and locked anteriorly with a locking bar. The knee was placed in 90 degrees of flexion. The medial retinaculum was closed with multiple interrupted mipoox-qq-muirq sutures of #1 Vicryl reinforced with a running suture of #1 Stratafix. Subcutaneous tissues were closed in layers with 0 and 2-0 Vicryl suture. The skin was closed with stainless steel alonso and Adaptic Neosporin bulky dressing was placed about the left knee. The patient was awakened and was transported to postop recovery with anesthesia personnel present in satisfactory condition. Job ID: [id number] DocumentID: [id number] Dictated Date: 05/22/2019 22:40:16 Rn Angiography Date: 05/23/2019 03:22:23 Dictated By: STARR LR DO
[2019-05-23 06:19] LABS: HEMOGLOBIN 10.9 G/DL (13.3-17.7); MEAN PLATELET VOLUME 11.2 FL (7.4-10.4); RED CELL DISTRIBUTION WIDTH 18.8 % (10.0-14.5); WHITE BLOOD COUNT 7.5 10^3/uL (4.3-11.0)
[2019-05-23] MEDS ORDERED: NON-FORMULARY MEDICATION 1 EA EA (Levothyroxine Sodium (Synthroid) 200 MCG) PO SCH (07:00)
[2019-05-23 07:10] LABS: BUN/CREATININE RATIO 26; CALCIUM 8.9 MG/DL (8.5-10.1); CARBON DIOXIDE 24 MMOL/L (21-32); CHLORIDE 106 MMOL/L (98-107); CREATININE SERUM 0.77 MG/DL (0.60-1.30); GFR ESTIMATED > 60; GLUCOSE 98 MG/DL (70-105); POTASSIUM 4.3 MMOL/L (3.6-5.0); SODIUM 140 MMOL/L (135-145)
[2019-05-23 08:00] VITALS: BP 107/65
--- NOTE | 2019-05-23 09:30 | Physical Therapy Evaluation ---
PT Evaluation-General Medical Diagnosis Admission Date May 22, 2019 at 05:47 Medical Diagnosis: s/p (L) TKA Onset Date: May 22, 2019 Therapy Diagnosis Therapy Diagnosis: Decreased functional mobility Height/Weight Height (Feet): 5 Height (Inches): 11.00 Weight (Pounds): 282 Weight (Ounces): 0.0 Precautions Precautions/Isolations: Fall Prevention, Standard Precautions Weight Bear Status Right Lower Extremity: Right Full Weight Bearing Left Lower Extremity: Left Weight Bearing/Tolerated Referral Physician: Fitz Reason for Referral: Evaluation/Treatment Medical History Pertinent Medical History: CAD, DM, HTN Additional Medical History (R) TKA in 01/2019 Current History s/p (L) TKA on 05/22/19 Reviewed History: Yes Social History Home: [facility] Current Living Status: Spouse Entry Into Home: Ramp Pt has a stair lift to access basement. Prior Prior Level of Function SCALE: Activities may be completed with or without assistive devices. 1-Zcibgofbih-vsohrxy completes the activity by him/herself with no assistance from a helper. 5-Set-up or Clean-up Assistance-helper sets up or cleans up; patient completes activity. [place] assists only prior to or following the activity. 4-Supervision or Touching Assistance-helper provides verbal cues and/or touching/steadying and/or contact guard assistance as patient completes activity. Assistance may be provided throughout the activity or intermittently. 3-Partial/Moderate Assistance-helper does LESS THAN HALF the effort. [place] lifts, holds or supports trunk or limbs, but provides less than half the effort. 2-Substantial/Maximal Assistance-helper does MORE THAN HALF the effort. [place] lifts or holds trunk or limbs and provides more than half the effort. 2-Iljjarngr-cqonoi does ALL the effort. Patient does none of the effort to complete the activity. Or, the assistance of 2 or more helpers is required for the patient to complete the activity. If activity was not attempted, code reason: 7-Patient Refused. 9-Not Applicable-not attempted and the patient did not perform the activity before the current illness, exacerbation or injury. 10-Not Attempted due to Environmental Limitations-(lack of equipment, weather restraints, etc.). 88-Not Attempted due to Medical Conditions or Safety Concerns. Bed Mobility: 6 Transfers (B,C,W/C): 4 Gait: 3 Stairs: 9 Wheelchair Mobility: 6 Indoor Mobility (Ambulation): Needed Some Help (Very limited distances) Stairs: Not Applicalbe Prior Devices Use: Mechanical lift, Motorized scooter Pt has a stair lift to access basement. Equipment owned: walker, powerchair, BSC, shower chair, Frank lift. Pt and daughter report that after (R) TKR he had been walking short distances with daughter at home but they were decreasing to roughly 30' at one time due to increased (L) knee pain. PT Evaluation-Current Subjective Pt up on [facility], agreeable to participate but states "The (L) knee tried to give o ut on me when I got over here". No pain rating given. Objective Patient Orientation: Person, Place, Time, Situation Attachments: SCD's, IV ROM/Strength ROM Upper Extremities See OT ROM Lower Extremities (L) knee roughly +10-90 degrees Strength Upper Extremities See OT Strength Lower Extremities (+) SLR with lag on (L), poor VMO facilitation (R) knee extension: 3-/5 Integumentary/Posture Integumentary See nurses' notes Sensory Vision: Functional Hearing: Functional Transfers Roll Left to Right (QC): 10 Sit to Lying (QC): 5 Lying to Sitting/Side of Bed(Q: 10 Sit to Stand (QC): 3 (Tapping to (R) quad to faclitate knee extension with initial stand) Chair/Bzq-qf-Lpwzs Xfer(QC): 3 Car Transfer (QC): 88 Pt out of bed on arrival, requested to return to bed with CPM applied, supine- >sit not tested this session. Gait Does the Patient Walk?: Yes Mode of Locomotion: Both Anticipated Mode of Locomotion: Both Walk 10 feet (QC): 88 Walk 50 ft with 2 Turns(QC): 88 Walk 150 ft (QC): 88 Walking 10ft/uneven surface-QC: 88 Distance: 3 Gait Assistive Device: FWW Comments/Gait Description BSC->Bed transfer with FWW and sidesteps to HOB x 3' with min A x 1-2. Pt with (B) knees in flexion, heavy reliance on (B) UE on FWW. Wheelchair Training Does the Pt Use a Wheelchair?: Yes Wheel 50 ft with 2 turns (QC): 10 Wheel 150 ft (QC): 10 Type of Wheelchair: Motorized Pt's power chair not here presently Stairs 1 Step (curb) (QC): 9 4 Steps (QC): 9 12 Steps (QC): 9 Balance Sitting Static: Normal Sitting Dynamic: Normal Standing Static: Fair Standing Dynamic: Fair Picking up an Object (QC): 9 Treatment Eval. CPM applied -2-0-90 degrees with good fit achieved. Pt in bed with all needs met, daughter in room. Assessment/Needs Pt is an 78 y.o. male s/p (L) TKA. Pt's problem list includes: decreased (L) knee AROM, decreased (L) knee strength, decreased functional mobility, decreased general LE strength (B). Pt would benefit from skilled PT to increase (I) with functional mobility to decrease caregiver burden. Rehab Potential: Fair Post Rehab Potential-Barriers: (R) LE weakness, sedentary PLOF PT Short Term Goals Short Term Goals Time Frame: May 30, 2019 Roll Left & Right: 6 Sit to lyin Lying to sitting on side of be: 6 Sit to stand: 4 Chair/eyq-ls-hiwvk transfer: 4 Toilet transfer: 4 PT Clerk Supervisor Goals Skilled Nursing Goals PT Clerk Supervisor Goals Time Frame: Jun 06, 2019 Roll Left & Right (QC): 6 Sit to Lying (QC): 6 Lying-Sitting on Side/Bed(QC): 6 Sit to Stand (QC): 5 Chair/Knj-nu-Doqoe Xfer(QC): 5 Toilet Transfer (QC): 5 Car Transfer (QC): 4 Does the Patient Walk: Yes Walk 10 feet (QC): 4 Walk 50ft with 2 Turns (QC): 4 Walk 150 ft (QC): 4 Walking 10ft on Uneven Surface: 4 1 Step (curb) (QC): 9 4 Steps (QC): 9 12 Steps (QC): 9 Picking up an Object (QC): 9 Does the Pt use WC or Scooter?: Yes Type: Motorized Wheel 150 feet: 6 Type: Motorized PT LTGs established to allow safe return home with family assist. PT Plan Problem List Problem List: Activity Tolerance, Functional Strength, Safety, Balance, Gait, Transfer, Bed Mobility, ROM Treatment/Plan Treatment Plan: Continue Plan of Care Treatment Plan: Bed Mobility, Education, Functional Activity Glenn, Functional Strength, Gait, Safety, Therapeutic Exercise, Transfers Treatment Duration: Jun 06, 2019 Frequency: 11 times per week Estimated Hrs Per Day: .5 hour per day Patient and/or Family Agrees t: Yes Safety Risks/Education Teaching Recipient: Patient Teaching Methods: Discussion Response to Teaching: Verbalize Understanding PT POC, use of CPM Discharge Recommendations Therapy Discharge Recommendati: Post Acute PT Barriers to Progress (R) LE weakness, sedentary PLOF Time/GCodes Time In: 0845 Time Out: 09 Total Billed Treatment Time: 34 Total Billed Treatment 1, EVMODC, CPM, PADS Co-eval with OT due to level of assist required, safety. PT assessing LE ROM, strength and functional mobility with transfers. JESUS BALDWIN DPT May 23, 2019 09:30
[2019-05-23] MEDS: SENNA W/DOCUSATE (SENOKOT S) TABLET PO SCH ×2 (09:37→21:31)
[2019-05-23] MEDS: TAMSULOSIN 0.4 MG (FLOMAX) CAP PO SCH ×2 (09:37→21:30)
[2019-05-23] MEDS: ASPIRIN E.C. 81 MG (ECOTRIN) TAB PO SCH (09:37)
[2019-05-23] MEDS: PREGABALIN 150 MG (LYRICA) CAPSULE PO SCH ×2 (09:39→21:30)
--- NOTE | 2019-05-23 09:44 | Anesthesia-General Post-Op ---
General Patient Condition Mental Status/LOC: Same as Preop Cardiovascular: Satisfactory Nausea/Vomiting: Absent Respiratory: Satisfactory Pain: Controlled Complications: Absent Post Op Complications Complications None Follow Up Care/Instructions Patient Instructions None needed. Anesthesia/Patient Condition Patient Condition Patient is doing well, no complaints, stable vital signs, no apparent adverse anesthesia problems. No complications reported per nursing. SALLY ELAINE CRNA May 23, 2019 09:44
[2019-05-23] MEDS: TROSPIUM 20 MG (SANCTURA) TAB PO SCH ×2 (10:24→17:13)
[2019-05-23] MEDS: AUGMENTIN 875 MG TAB (AMOXICILLIN/CLAVULANATE) PO SCH ×2 (10:24→17:13)
[2019-05-23] MEDS: metFORMIN XR 500 MG (GLUCOPHAGE XR) TAB PO SCH ×2 (10:24→17:12)
[2019-05-23] MEDS: LEVOTHYROXINE 50 MCG (LEVOTHROID) TAB PO SCH (10:25)
[2019-05-23] MEDS: ENOXAPARIN 40 MG/0.4 ML (LOVENOX) SYR SC SCH (10:25)
--- NOTE | 2019-05-23 11:55 | Consultation - Hospitalist ---
HPI History of Present Illness: HPI/Chief Complaint Ilia is a 78 y/o white male that is at via [facility] post-op total left knee arthroplasty. Hospitalist service was consulted to manage patients ongoing chronic diseases. He denies pain at this time and is has no concerns. He is eating and drinking without issue. Ilia has not had a bowel movement yet but states that he usually goes every 5 days and it is only day 2. He is urinating without issue. Patient was working with PT when I was in there and states he was doing good. Source: patient Date Seen 05/23/19 Attending Physician Alejandro Byrnes DO PCP Mirza Bach MD Referring Physician Date of Admission May 22, 2019 at 05:47 Home Medications & Allergies Home Medications Reviewed patient Home Medication Reconciliation performed by pharmacy medication reconciliations quick service technician and/or nursing. Patients Allergies have been reviewed. Allergies Allergies Coded Allergies No Known Drug Allergies (Sggwokmmwq02/2/18) Past Aakqxwt-Ahrcym-Dldpwm Hx Patient Social History Marrital Status: Alcohol Use: Denies Use Recreational Drug Use: No Smoking Status: Former Smoker Former Smoker, Quit: Feb 22, 1994 Type Used: Cigarettes 2nd Hand Smoke Exposure: No Physical Abuse Screen: No Sexual Abuse: No Recent Foreign Travel: No Contact w/other who traveled: No Recent Hopitalizations: No Recent Infectious Disease Expo: No Immunizations Up To Date Date of Pneumonia Vaccine: Feb 04, 2013 Date of Influenza Vaccine: Feb 20, 2019 Seasonal Allergies Seasonal Allergies: No Past Medical History Surgeries: Abdominal, Appendectomy, Gallbladder, Orthopedic Respiratory: Sleep Apnea Currently Using CPAP: No Currently Using BIPAP: No Cardiac: Chronic Edema/Swelling, Coronary Artery Disease, Heart Attack, Heart Murmur, High Cholesterol, Hypertension Aortic stenosis as I recall not critical or severe Neurological: Neuropathy Reproductive: No Sexually Transmitted Disease: No HIV/AIDS: No Genitourinary: Benign Prostatic Hyperpl, Bladder Infection, Kidney Stones, UTI- Chronic Gastrointestinal: Gastroesophageal Reflux, Chronic Constipation Musculoskeletal: Arthritis, Chronic Back Pain, Gout Endocrine: Diabetes, Non-Insulin dep HEENT: Cataract History of Blood Disorders: No Adverse Reaction to Blood [place]: No Family History Alcoholism 19 FATHER Completed stroke 19 MOTHER Diabetes mellitus 19 MOTHER G8 SISTER FH: pancreatic cancer G8 BROTHER Review of Systems Constitutional: no symptoms reported EENTM: no symptoms reported Respiratory: no symptoms reported Cardiovascular: no symptoms reported Gastrointestinal: no symptoms reported Genitourinary: no symptoms reported Musculoskeletal: other (Patient just had a left total knee arthropalsty and pain is well controlled on current medication regimen ) Skin: no symptoms reported Psychiatric/Neurological: No Symptoms Reported Physical Exam Physical Exam Vital Signs Vital Signs - First Documented Capillary Refill : Less Than 3 SecondsNONE Height, Weight, BMI Height: 5'11.00" Weight: 282lbs. 0.0oz. 127.080997pb; 35.06 BMI Method:Stated General Appearance: No Apparent Distress, WD/WN Eyes: Bilateral Eye PERRL, Bilateral Eye EOMI Neck: Non Tender, Supple Respiratory: Chest Non Tender, Normal Breath Sounds, No Accessory Muscle Use, No Respiratory Distress Cardiovascular: Regular Rate, Rhythm, Normal Peripheral Pulses Gastrointestinal: No Organomegaly, Non Tender, Soft; No Distended, No Guarding Extremity: Normal Capillary Refill, No Calf Tenderness, Other (right leg showed no LE edema and left left leg was wrapped. No calf tenderness bilaterally. Dorsal pedal and radial pulses 2/4 bilaterally. UE stregth 5/5 ) Neurologic/Psychiatric: Alert, Oriented x3, Normal Mood/Affect, data science and iot manager II-XII Norm as Tested Skin: Normal Color, Warm/Dry Results Results/Procedures Labs Laboratory Tests 05/23/19 05:44 05/23/19 06:43 Patient resulted labs reviewed. Assessment/Plan Assessment and Plan Assess & Plan/Chief Complaint left total knee arthroplasty - orthopedics on board - continue to mange pain - monitor labs - continue PT - anticoagulation with enoxaparin - continue abx DM - continue home medications Hypothyroidism - continue home medications BPH/Urge - continue home medications Peripheral Neuropathy - continue home medications GERD - continue home medications HTN/ High Cholesterol - continue home medications Aortic stenosis - being seen by Dr. Giraldo outpatient - currently takes furosemide every other day and a potassium supplement Arthritis and Chronic back pain - continue home medications Chronic Constipation - will continue to monitor. Pt usually has a bm every 5 days and he currently day 2. Clinical Quality Measures DVT/VTE Risk/Contraindication: Risk Factor Score Per Nursin RFS Level Per Nursing on Admit: 4+=Very High SATINDER VALENTE [employer] [facility] May 23, 2019 11:55
[2019-05-23 12:00] VITALS: BP 108/58
[2019-05-23] MEDS: LEVOTHYROXINE 100 MCG (LEVOTHROID) TAB PO SCH (12:38)
--- NOTE | 2019-05-23 12:49 | Occupational Therapy Eval ---
OT Evaluation-General/PLF Medical Diagnosis Admission Date May 22, 2019 at 05:47 Medical Diagnosis: s/p (L) TKA Onset Date: May 22, 2019 Therapy Diagnosis Therapy Diagnosis: Decreased ADL skills Height/Weight Height (Feet): 5 Height (Inches): 11.00 Weight (Pounds): 282 Weight (Ounces): 0.0 Precautions Precautions/Isolations: Fall Prevention, Standard Precautions Safety Interventions: Notify Family Weight Bear Status Weight Bearing Restriction: Weight Bearing/Tolerated Referral Physician: Fitz Referral Reason: Activity Tolerance, Self Care, Evaluation/Treatment, Strengthening/ROM Medical History Pertinent Medical History: CAD, DM, HTN Additional Medical History Right TKA Current History Pt. lives at home with spouse. Has had set up for several years to assist him with physical abilities. Had right knee replaced in January. Was on IRU. Reviewed History: Yes Social History Home: Multilevel (Pt. enters basement from walk out area. Has chair lift to get him to the upper floor.) Current Living Status: Spouse Entry Into Home: Ramp ADL-Prior Level of Function SCALE: Activities may be completed with or without assistive devices. 1-Tkqgjehfru-dbckmdy completes the activity by him/herself with no assistance from a helper. 5-Set-up or Clean-up Assistance-helper sets up or cleans up; patient completes activity. [place] assists only prior to or following the activity. 4-Supervision or Touching Assistance-helper provides verbal cues and/or touching/steadying and/or contact guard assistance as patient completes activity. Assistance may be provided throughout the activity or intermittently. 3-Partial/Moderate Assistance-helper does LESS THAN HALF the effort. [place] lifts, holds or supports trunk or limbs, but provides less than half the effort. 2-Substantial/Maximal Assistance-helper does MORE THAN HALF the effort. [place] lifts or holds trunk or limbs and provides more than half the effort. 6-Ffrlyjjah-bvsxpl does ALL the effort. Patient does none of the effort to complete the activity. Or, the assistance of 2 or more helpers is required for the patient to complete the activity. If activity was not attempted, code reason: 7-Patient Refused. 9-Not Applicable-not attempted and the patient did not perform the activity before the current illness, exacerbation or injury. 10-Not Attempted due to Environmental Limitations-(lack of equipment, weather restraints, etc.). 88-Not Attempted due to Medical Conditions or Safety Concerns. ADL PLOF Comments Pt. uses chair lift to get to/from main level. Has walker, power chair, BSC. Has system in place to complete all transfers. Pt. and daughter report that he is able to bathe/dress self, with assist for shoes. Daughter does this for him. Spouse does all the cooking/cleaning for him. Self Care: Needed Some Help Functional Cognition: Independent DME/Equipment: Bath Chair, Bedside Commode, Grab Bars, Shower DME/Equipment Comments Pt. has shower that he currently uses, but is also having brand new zero entry built. Pt. has lift to get into truck that he has used for several years. Pt. has BSC, shower chair, wheelchair/power chair, chair lift to basement. Drive Self: Yes OT Current Status Subjective No pain reported. Appearance Pt. on BS when therapy entered room. Mental Status/Objective Patient Orientation: Person, Place Attachments: IV Current Glasses/Contacts: Yes Upper Extremity ROM WFL ADL-Treatment Eating (QC): 5 Oral Hygiene (QC): 10 Shower/Bathe Self (QC): 10 Upper Body Dressing (QC): 10 Lower Body Dressing (QC): 10 On/Off Footwear (QC): 2 Toileting Hygiene (QC): 2 Toilet Transfer (QC): 1 (Mod/max x 2 sit-stand and transfer to bed.) Other Treatments OT/PT co-treat performed due to pt's need of skilled assistance x 2. Pt. is known to this therapist from previous rehab stay. Pt. on BSC when therapy entered room. Required max x 2 for sit-stand, and max assist to pull up pants. PT facilitated transfer while OT facilitated ADL skills. Transferred with walker to bed by taking several small steps. Increased time needed. Pt. able to sit on bed but was down too far. Stood again with mod x 2, and able to take several steps with walker and assist toward HOB. Pt. able to get both LE into bed with SBA. Cues to position self. CPM applied and all needs met. Pt. has full set up at home of equipment to assist self. All needs met. Education OT Patient Education: Correct positioning, Modified ADL techniques, Progress toward Goal/Update tx plan, Purpose of tx/functional activities, Reviewed precautions, Rehab process, Transfer techniques Teaching Recipient: Patient Teaching Methods: Demonstration, Discussion Response to Teaching: Verbalize Understanding, Return Demonstration OT Short Term Goals Short Term Goals Time Frame: May 30, 2019 Eatin Oral hygiene: 5 Toileting hygiene: 4 Shower/bathe self: 3 Upper body dressin Lower body dressin Putting on/taking off footwear: 9 OT Certified Pediatric Nurse Practitioner Goals Half-Way Goals Time Frame: Jun 06, 2019 Eating (QC): 6 Oral Hygiene (QC): 5 Toileting Hygiene (QC): 5 Shower/Bathe Self (QC): 5 Upper Body Dressing (QC): 4 Lower Body Dressing (QC): 4 On/Off Footwear (QC): 9 (Daughter does this for him at home.) Additional Goals: 1-Demonstrate ADL Tasks, 2-Verbalize Understanding, 3- ImproveStrength/Glenn 1=Demonstrate adherence to instructed precautions during ADL tasks. 2=Patient will verbalize/demonstrate understanding of assistive devices/modifications for ADL. 3=Patient will improve strength/tolerance for activity to enable patient to perform ADL's. OT Education/Plan Problem List/Assessment Assessment: Decreased Activ Tolerance, Dependent Transfers, Impaired Bed Mobility, Impaired Funct Balance, Impaired I ADL's, Impaired Self-Care Skills Discharge Recommendations Plan/Recommendations: Continue POC Therapy Discharge Recommendati: Home & Family Comment Pt. has all needed equipment at home. Treatment Plan/Plan of Care Treatment,Training & Education: Yes Patient would benefit from OT for education, treatment and training to promote independence in ADL's, mobility, safety and/or upper extremity function for ADL's. Plan of Care: ADL Retraining, Functional Mobility, UE Funct Exercise/Act Treatment Duration: Jun 06, 2019 Frequency: 5 times per week Estimated Hrs Per Day: .25 hour per day Agreement: Yes Rehab Potential: Fair Time/GCodes Start Time: 08:45 Stop Time: 09:05 Total Time Billed (hr/min): 20 Billed Treatment Time 1, EVH co-treatment with PT. Please see above note for designated role. Untimed CIERRA Torres OT May 23, 2019 12:49
--- NOTE | 2019-05-23 14:32 | Physical Therapy Daily Note ---
PT Daily Note-Current Subjective Pt. sitting up on BSC, dte present. Agrees to Rx but states "hold on, Im not really gonna walk am I"? No c/o pain Pain Location: No Pain Reported Mental Status Patient Orientation: Normal For Age Attachments: IV Transfers SCALE: Activities may be completed with or without assistive devices. 2-Akepwbganq-riqrbyp completes the activity by him/herself with no assistance from a helper. 5-Set-up or Clean-up Assistance-helper sets up or cleans up; patient completes activity. [place] assists only prior to or following the activity. 4-Supervision or Touching Assistance-helper provides verbal cues and/or touching/steadying and/or contact guard assistance as patient completes activity. Assistance may be provided throughout the activity or intermittently. 3-Partial/Moderate Assistance-helper does LESS THAN HALF the effort. [place] lifts, holds or supports trunk or limbs, but provides less than half the effort. 2-Substantial/Maximal Assistance-helper does MORE THAN HALF the effort. [place] lifts or holds trunk or limbs and provides more than half the effort. 0-Etektxyhv-afyzhg does ALL the effort. Patient does none of the effort to complete the activity. Or, the assistance of 2 or more helpers is required for the patient to complete the activity. If activity was not attempted, code reason: 7-Patient Refused. 9-Not Applicable-not attempted and the patient did not perform the activity before the current illness, exacerbation or injury. 10-Not Attempted due to Environmental Limitations-(lack of equipment, weather restraints, etc.). 88-Not Attempted due to Medical Conditions or Safety Concerns. sit to stand min to CGA Weight Bearing Right Lower Extremity: Right Full Weight Bearing Left Lower Extremity: Left Weight Bearing/Tolerated Gait Training Does the Patient Walk?: Yes Gait Assistive Device: FWW 7ftx3 CGA and assist IV, needs cues to straighten knees etc Exercises Seated Therapy Exercises: Ankle pumps, Sit to stand, Long arc quads, Hip flexion, Hip abd/add Seated Reps: 12 Assessment Current Status: Good Progress needs encouraged to participate PT Short Term Goals Short Term Goals Time Frame: May 30, 2019 Roll Left & Right: 6 Sit to lyin Lying to sitting on side of be: 6 Sit to stand: 4 Chair/kjr-sg-joszk transfer: 4 Toilet transfer: 4 PT Dustless Operator Goals Group Home Goals PT Dustless Operator Goals Time Frame: Jun 06, 2019 Roll Left & Right (QC): 6 Sit to Lying (QC): 6 Lying-Sitting on Side/Bed(QC): 6 Sit to Stand (QC): 5 Chair/Ceq-cy-Cewdp Xfer(QC): 5 Toilet Transfer (QC): 5 Car Transfer (QC): 4 Does the Patient Walk: Yes Walk 10 feet (QC): 4 Walk 50ft with 2 Turns (QC): 4 Walk 150 ft (QC): 4 Walking 10ft on Uneven Surface: 4 1 Step (curb) (QC): 9 4 Steps (QC): 9 12 Steps (QC): 9 Picking up an Object (QC): 9 Does the Pt use WC or Scooter?: Yes Type: Motorized Wheel 150 feet: 6 Type: Motorized PT Plan Treatment/Plan Treatment Plan: Continue Plan of Care Treatment Plan: Bed Mobility, Education, Functional Activity Glenn, Functional Strength, Gait, Safety, Therapeutic Exercise, Transfers Treatment Duration: Jun 06, 2019 Frequency: 11 times per week Estimated Hrs Per Day: .5 hour per day Patient and/or Family Agrees t: Yes Safety Risks/Education Patient Education: Gait Training, Transfer Techniques, Correct Positioning, Disease Process, Safety Issues Teaching Recipient: Patient Teaching Methods: Demonstration, Discussion Response to Teaching: Verbalize Understanding, Return Demonstration, Reinforcement Needed Time/GCodes Time In: 1355 Time Out: 1425 Total Billed Treatment Time: 30 Total Billed Treatment 1,EX10m,FA20m SAM FOURNIER DWARF TREE GROWER May 23, 2019 14:32
[2019-05-23 16:35] VITALS: BP 93/53
[2019-05-23] MEDS: PANTOPRAZOLE 40 MG (PROTONIX) TAB PO SCH (17:13)
[2019-05-23 20:57] VITALS: BP 142/68
[2019-05-23] MEDS: DULoxetine 30 MG (CYMBALTA) CAP PO SCH (21:30)
[2019-05-23] MEDS: MELATONIN 3 MG TABLET PO SCH (21:31)
[2019-05-23] MEDS: POLYETHYLENE GLYCOL 17 GM (MIRALAX) PACK PO SCH (21:32)
[2019-05-23] MEDS: HYDROcodone/APAP 10 MG/325 MG (LORTAB) TAB PO PRN (21:47)
[2019-05-24] VITALS: BP 119/71
[2019-05-24 04:00] VITALS: BP 113/67
[2019-05-24] MEDS ORDERED: HYDROcodone/APAP 10 MG/325 MG (LORTAB) TAB PO ONE (04:41)
[2019-05-24] MEDS: LEVOTHYROXINE 50 MCG (LEVOTHROID) TAB PO SCH (04:50)
[2019-05-24] MEDS: FUROSEMIDE 20 MG (LASIX) TAB PO SCH (04:50)
[2019-05-24] MEDS: HYDROcodone/APAP 10 MG/325 MG (LORTAB) TAB PO PRN (04:50)
[2019-05-24] MEDS: ENOXAPARIN 40 MG/0.4 ML (LOVENOX) SYR SC SCH (04:50)
[2019-05-24] MEDS: KCL 8 MEQ (MICRO K) TABLET PO SCH (04:50)
[2019-05-24] MEDS: TROSPIUM 20 MG (SANCTURA) TAB PO SCH ×2 (04:50→16:50)
[2019-05-24] MEDS: ACETAMINOPHEN 500 MG TAB (TYLENOL) PO SCH ×3 (04:51→18:14)
[2019-05-24] MEDS: LEVOTHYROXINE 100 MCG (LEVOTHROID) TAB PO SCH (04:51)
[2019-05-24] MEDS: metFORMIN XR 500 MG (GLUCOPHAGE XR) TAB PO SCH ×2 (04:51→17:38)
[2019-05-24] MEDS: D5 1/2 NS 1000 ML IV SOLUTION 1,000 ML IV SCH ×2 (04:54→17:38)
[2019-05-24 06:49] LABS: HEMOGLOBIN 10.2 G/DL (13.3-17.7); MEAN PLATELET VOLUME 11.3 FL (7.4-10.4); RED CELL DISTRIBUTION WIDTH 18.9 % (10.0-14.5); WHITE BLOOD COUNT 6.7 10^3/uL (4.3-11.0)
--- NOTE | 2019-05-24 06:49 | Progress Note ---
Subjective Date Seen by a Provider: May 24, 2019 Time Seen by a Provider: 06:47 Subjective/Events-last exam Currently no complaints, pain controlled, has had limited ambulation so far but states he was hoping for discharge today. Objective Exam Vital Signs Date Time Temp Pulse Resp B/P (MAP) Pulse Ox O2 Delivery O2 Flow Rate FiO2 05/24/19 04:00 36.6 86 18 113/67 (82) 93 Room Air 05/24/19 00:00 36.8 85 18 119/71 (87) 94 Room Air 05/23/19 20:57 36.8 90 20 142/68 (92) 95 Room Air 05/23/19 20:45 Room Air 05/23/19 16:35 36.3 84 20 93/53 (66) 97 Room Air 05/23/19 12:00 36.1 91 18 108/58 (75) 92 Nasal Cannula 2.50 05/23/19 09:00 96 OxyMask 5.00 05/23/19 08:00 36.0 74 18 107/65 (79) 99 Nasal Cannula 2.50 I & O 05/24/19 07:00 Intake Total 2310 ml Balance 2310 ml Capillary Refill : Less Than 3 SecondsNONE General Appearance: No Apparent Distress Gastrointestinal: non tender, soft Extremity: Normal Capillary Refill, Normal Inspection, Normal Range of Motion, No Calf Tenderness Neurologic/Psychiatric: Alert, Oriented x3, No Motor/Sensory Deficits, Normal Mood/Affect, pullman conductor II-XII Norm as Tested Skin: Normal Color (dressing CDI left knee), Warm/Dry Results Lab Laboratory Tests 05/23/19 09:26: Glucometer 117H 05/24/19 05:42: Assessment/Plan Assessment/Plan Assess & Plan/Chief Complaint A: s/p left TKA Primary OA left knee debility P: Plan to discharge this evening if his ambulatory status improves. executive secretary social welfare to arrange home healthcare, RX on chart Clinical Quality Measures DVT/VTE Risk/Contraindication: Risk Factor Score Per Nursin RFS Level Per Nursing on Admit: 4+=Very High TASH ENGALND APRN May 24, 2019 06:49
[2019-05-24] MEDS ORDERED: HYDR-3820 PO (06:53)
[2019-05-24] MEDS ORDERED: SENN-20 PO (06:53)
--- NOTE | 2019-05-24 06:56 | D/C HH Face to Face Order ---
D/C Face to Face Orders Reconcile Patient Problems Problems Reviewed?: Yes Instructions for Patient Via [employer], Patient Instructions/FollowUp: f/u [address] Byrnes Physician to follow Patient: Fitz Discharge Diet for Home: No Restrictions Patient Problems: Primary OA left knee s/p left TKA Debility Goals for Patient: ADL independence Patient Data-Allergies,Ht & Wt Patient Allergies: Coded Allergies: No Known Drug Allergies (Unverified , 03/07/18) Height (Feet): 5 Height (Inches): 11.00 Weight (Pounds): 282 Weight (Ounces): 0.0 Home Health Need/Face to Face Date of Face to Face: May 24, 2019 Clinical Findings: Instability, Muscle weakness, Pain with ambulation, Unsteady gait I have seen Pt nkjt-ln-hhfe: Yes Discharged To: Home Diagnosis/Conditions: Primary OA left knee s/p left TKA Debility Patient is Homebound due to: [place] fall risk due to instabilty, Muscle weakness, Pain w/ambulation Homebound Status Due to the above stated illness, injury or surgical procedure (medical condit ion or diagnosis) and associated clinical findings, the patient is homebound because of his/her inability to leave home except with aid of a supportive device and/or person AND leaving the home requires a considerable and taxing effort or is medically contraindicated. Pt req the following assistanc: Aid of another person, Walker Home Health Nursing Orders Home Health Services Order: Physical Therapy-Evaluate & Treat physical therapy 5x/week x 2 weeks remove alonso and apply steri strips in 7 days CPM machine 6 hrs per day, advance 5 deg per day as [facility] care unit for home use daily island dressing changes after shower Home Health Infusion Therapy Line Start Date: May 22, 2019 Therapy Orders Therapy Orders: Physical Therapy Therapy Specific Orders: Eval assistive deivces, Gait training, Increase strength/endurance, Restore ROM Certify Stmt I certify that this patient is under my care and that I, a nurse practitioner or a physician; a compliance assistant working with me, had a face to face encounter that - meets the physician face to face encounter requirements with this patient as dated. TASH ENGLAND APRN May 24, 2019 06:56
[2019-05-24 07:15] LABS: BUN/CREATININE RATIO 24; CALCIUM 8.7 MG/DL (8.5-10.1); CARBON DIOXIDE 22 MMOL/L (21-32); CHLORIDE 107 MMOL/L (98-107); CREATININE SERUM 0.82 MG/DL (0.60-1.30); GFR ESTIMATED > 60; GLUCOSE 97 MG/DL (70-105); POTASSIUM 4.3 MMOL/L (3.6-5.0); SODIUM 139 MMOL/L (135-145)
[2019-05-24] MEDS ORDERED: HYDROcodone/APAP 10 MG/325 MG (LORTAB) TAB PO PRN (07:15)
[2019-05-24 08:00] VITALS: BP 103/58
[2019-05-24] MEDS: SENNA W/DOCUSATE (SENOKOT S) TABLET PO SCH ×2 (09:25→21:24)
[2019-05-24] MEDS: TAMSULOSIN 0.4 MG (FLOMAX) CAP PO SCH ×2 (09:25→21:24)
[2019-05-24] MEDS: PREGABALIN 150 MG (LYRICA) CAPSULE PO SCH ×2 (09:25→21:23)
[2019-05-24] MEDS: POLYETHYLENE GLYCOL 17 GM (MIRALAX) PACK PO SCH ×2 (09:26→21:24)
[2019-05-24] MEDS: ASPIRIN E.C. 81 MG (ECOTRIN) TAB PO SCH (09:26)
--- NOTE | 2019-05-24 10:28 | Physical Therapy Daily Note ---
PT Daily Note-Current Subjective Patient agrees to PT. Family present. Pain Numeric Pain Scale: 5-Moderate Pain Location: Left Location Body Site: Knee Pain Description: Acute Mental Status Patient Orientation: Normal For Age Attachments: IV Transfers SCALE: Activities may be completed with or without assistive devices. 2-Nwakskxxkf-dtysypx completes the activity by him/herself with no assistance from a helper. 5-Set-up or Clean-up Assistance-helper sets up or cleans up; patient completes activity. [place] assists only prior to or following the activity. 4-Supervision or Touching Assistance-helper provides verbal cues and/or touching/steadying and/or contact guard assistance as patient completes activity. Assistance may be provided throughout the activity or intermittently. 3-Partial/Moderate Assistance-helper does LESS THAN HALF the effort. [place] lifts, holds or supports trunk or limbs, but provides less than half the effort. 2-Substantial/Maximal Assistance-helper does MORE THAN HALF the effort. [place] lifts or holds trunk or limbs and provides more than half the effort. 7-Hypetmplv-jhbsgx does ALL the effort. Patient does none of the effort to complete the activity. Or, the assistance of 2 or more helpers is required for the patient to complete the activity. If activity was not attempted, code reason: 7-Patient Refused. 9-Not Applicable-not attempted and the patient did not perform the activity before the current illness, exacerbation or injury. 10-Not Attempted due to Environmental Limitations-(lack of equipment, weather restraints, etc.). 88-Not Attempted due to Medical Conditions or Safety Concerns. Roll Left & Right (QC): 4 Sit to Lying (QC): 4 Lying to Sitting/Side of Bed(Q: 4 Sit to Stand (QC): 4 Chair/Ihy-xm-Exsgl Xfer(QC): 4 Toilet Transfer (QC): 4 Weight Bearing Right Lower Extremity: Right Full Weight Bearing Left Lower Extremity: Left Weight Bearing/Tolerated Gait Training Does the Patient Walk?: Yes Distance: 55' Walk 10 feet (QC): 4 Walk 50 ft with 2 Turns(QC): 4 Walk 150 ft (QC): 9 Walking 10ft/uneven surface-QC: 88 Gait Assistive Device: FWW flexed trunk and bilateral knees/shuffle gait pattern Exercises Supine Ex: Ankle pumps, Quad Set, Heel Slides Supine Reps: 12 (AAROM) Seated Therapy Exercises: Ankle pumps, Long arc quads Seated Reps: 15 (AAROM) Assessment Patient tolerates treatment and is up in chair with needs met. Family present and report they assist with all of his care and exercise program at home PLOF. Patient has been physically limited for several years per their report. Plan dismissal to home with family on this date. PT Short Term Goals Short Term Goals Time Frame: May 30, 2019 Roll Left & Right: 6 Sit to lyin Lying to sitting on side of be: 6 Sit to stand: 4 Chair/uvp-rm-xrpxc transfer: 4 Toilet transfer: 4 PT Hadoop Administrator Goals Assisted Goals PT Assisted Goals Time Frame: Jun 06, 2019 Roll Left & Right (QC): 6 Sit to Lying (QC): 6 Lying-Sitting on Side/Bed(QC): 6 Sit to Stand (QC): 5 Chair/Vkm-qh-Zryua Xfer(QC): 5 Toilet Transfer (QC): 5 Car Transfer (QC): 4 Does the Patient Walk: Yes Walk 10 feet (QC): 4 Walk 50ft with 2 Turns (QC): 4 Walk 150 ft (QC): 4 Walking 10ft on Uneven Surface: 4 1 Step (curb) (QC): 9 4 Steps (QC): 9 12 Steps (QC): 9 Picking up an Object (QC): 9 Does the Pt use WC or Scooter?: Yes Type: Motorized Wheel 150 feet: 6 Type: Motorized PT Plan Treatment/Plan Treatment Plan: Continue Plan of Care, Discontinue PT Treatment Plan: Bed Mobility, Education, Functional Activity Glenn, Functional Strength, Gait, Safety, Therapeutic Exercise, Transfers Treatment Duration: Jun 06, 2019 Frequency: 11 times per week Estimated Hrs Per Day: .5 hour per day Patient and/or Family Agrees t: Yes Time/GCodes Time In: 835 Time Out: 906 Total Billed Treatment Time: 31 Total Billed Treatment 1 visit EX 15 min GT 16 min CLAY HOLGUIN PT May 24, 2019 10:28
[2019-05-24 12:00] VITALS: BP 128/76
--- NOTE | 2019-05-24 13:16 | Occupational Ther Daily Note ---
OT Current Status-Daily Note Subjective Pt sitting EOB at start of session, family present getting pt ready for lunch. Pt stated he is hoping to go home later today, his family then tell him they do not want him to be discharged today because the bathroom is currently being remodeled and is not ready for him, and the social workers they need to meet with for home health are unable to meet until later next week. Pt was still adamant about wanting to leave today. ADL-Treatment Therapy Code Descriptions/Definitions Functional [place] Measure: 0=Not Assessed/NA 4=Minimal Assistance 1=Total Assistance 5=Supervision or Setup 2=Maximal Assistance 6=Modified Vill[place] 3=Moderate Assistance 7=Complete IndependenceSCALE: Activities may be completed with or without assistive devices. 1-Zmbdlanmer-ywmjxxc completes the activity by him/herself with no assistance from a helper. 5-Set-up or Clean-up Assistance-helper sets up or cleans up; patient completes activity. [place] assists only prior to or following the activity. 4-Supervision or Touching Assistance-helper provides verbal cues and/or touching/steadying and/or contact guard assistance as patient completes activity. Assistance may be provided throughout the activity or intermittently. 3-Partial/Moderate Assistance-helper does LESS THAN HALF the effort. [place] lifts, holds or supports trunk or limbs, but provides less than half the effort. 2-Substantial/Maximal Assistance-helper does MORE THAN HALF the effort. [place] lifts or holds trunk or limbs and provides more than half the effort. 2-Rubadavnm-gedumy does ALL the effort. Patient does none of the effort to complete the activity. Or, the assistance of 2 or more helpers is required for the patient to complete the activity. If activity was not attempted, code reason: 7-Patient Refused. 9-Not Applicable-not attempted and the patient did not perform the activity before the current illness, exacerbation or injury. 10-Not Attempted due to Environmental Limitations-(lack of equipment, weather restraints, etc.). 88-Not Attempted due to Medical Conditions or Safety Concerns. Eating (QC): 6 Other Treatment Pt sitting EOB, his family helping him prepare for lunch. Pt sitting EOB with no LOB, OT placed pt's lunch tray on his tray table positioned in front of him. Pt was able to eat his lunch without difficulty and he did not lose his balance while sitting. Pt stated he had difficulty chewing the beef but he was able to complete task of eating without assistance. Post OT session, pt seated EOB finishing his lunch with his family present, call light in reach and all needs met. Education OT Patient Education: Correct positioning, Energy conservation, Modified ADL techniques, Progress toward Goal/Update tx plan, Purpose of tx/functional activities Teaching Recipient: Patient, Family Teaching Methods: Discussion Response to Teaching: Verbalize Understanding OT Short Term Goals Short Term Goals Time Frame: May 30, 2019 Eatin Oral hygiene: 5 Toileting hygiene: 4 Shower/bathe self: 3 Upper body dressin Lower body dressin Putting on/taking off footwear: 9 OT Resident Services Supervisor Goals [facility] Goals Time Frame: Jun 06, 2019 Eating (QC): 6 Oral Hygiene (QC): 5 Toileting Hygiene (QC): 5 Shower/Bathe Self (QC): 5 Upper Body Dressing (QC): 4 Lower Body Dressing (QC): 4 On/Off Footwear (QC): 9 (Daughter does this for him at home.) Additional Goals: 1-Demonstrate ADL Tasks, 2-Verbalize Understanding, 3- ImproveStrength/Glenn 1=Demonstrate adherence to instructed precautions during ADL tasks. 2=Patient will verbalize/demonstrate understanding of assistive devices/modifications for ADL. 3=Patient will improve strength/tolerance for activity to enable patient to perform ADL's. OT Education/Plan Problem List/Assessment Assessment: Decreased Activ Tolerance, Impaired I ADL's, Impaired Self-Care Skills Discharge Recommendations Plan/Recommendations: Continue POC Treatment Plan/Plan of Care Treatment,Training & Education: Yes Patient would benefit from OT for education, treatment and training to promote independence in ADL's, mobility, safety and/or upper extremity function for ADL's. Plan of Care: ADL Retraining, Functional Mobility, UE Funct Exercise/Act Treatment Duration: Jun 06, 2019 Frequency: 5 times per week Estimated Hrs Per Day: .25 hour per day Agreement: Yes Rehab Potential: Fair Time/GCodes Start Time: 13:00 Stop Time: 13:08 Total Time Billed (hr/min): 8 Billed Treatment Time 1, ADL JHONATAN RAMIRES OT May 24, 2019 13:16
--- NOTE | 2019-05-24 14:23 | Physical Therapy Daily Note ---
PT Daily Note-Current Subjective Patient report he wants to go home today. Reluctantly agrees to PT. Pain Numeric Pain Scale: 5-Moderate Pain Location: Left Location Body Site: Knee Pain Description: Acute Mental Status Patient Orientation: Normal For Age Attachments: IV Transfers SCALE: Activities may be completed with or without assistive devices. 8-Tsnjhjiugy-ehwbage completes the activity by him/herself with no assistance from a helper. 5-Set-up or Clean-up Assistance-helper sets up or cleans up; patient completes activity. [place] assists only prior to or following the activity. 4-Supervision or Touching Assistance-helper provides verbal cues and/or touching/steadying and/or contact guard assistance as patient completes activity. Assistance may be provided throughout the activity or intermittently. 3-Partial/Moderate Assistance-helper does LESS THAN HALF the effort. [place] li fts, holds or supports trunk or limbs, but provides less than half the effort. 2-Substantial/Maximal Assistance-helper does MORE THAN HALF the effort. [place] lifts or holds trunk or limbs and provides more than half the effort. 9-Ipkftxpjb-ggomav does ALL the effort. Patient does none of the effort to complete the activity. Or, the assistance of 2 or more helpers is required for the patient to complete the activity. If activity was not attempted, code reason: 7-Patient Refused. 9-Not Applicable-not attempted and the patient did not perform the activity before the current illness, exacerbation or injury. 10-Not Attempted due to Environmental Limitations-(lack of equipment, weather restraints, etc.). 88-Not Attempted due to Medical Conditions or Safety Concerns. Sit to Stand (QC): 3 Toilet Transfer (QC): 3 Patient transferred to commode to toilet requiring assistance to address depends Weight Bearing Right Lower Extremity: Right Full Weight Bearing Left Lower Extremity: Left Weight Bearing/Tolerated Gait Training Does the Patient Walk?: Yes Distance: 45' Walk 10 feet (QC): 3 Gait Assistive Device: FWW flexed trunk and bilateral knee posture with gait training Exercises Seated Therapy Exercises: Ankle pumps, Long arc quads Seated Reps: 15 Assessment Patient tolerates minimal activity and remains seated EOB with needs met. Plan dismissal to home in a.m. PT Short Term Goals Short Term Goals Time Frame: May 30, 2019 Roll Left & Right: 6 Sit to lyin Lying to sitting on side of be: 6 Sit to stand: 4 Chair/bcn-ik-cqjml transfer: 4 Toilet transfer: 4 PT Mcc Goals Beef Boner Goals PT Mcc Goals Time Frame: Jun 06, 2019 Roll Left & Right (QC): 6 Sit to Lying (QC): 6 Lying-Sitting on Side/Bed(QC): 6 Sit to Stand (QC): 5 Chair/Vnj-qa-Lzshn Xfer(QC): 5 Toilet Transfer (QC): 5 Car Transfer (QC): 4 Does the Patient Walk: Yes Walk 10 feet (QC): 4 Walk 50ft with 2 Turns (QC): 4 Walk 150 ft (QC): 4 Walking 10ft on Uneven Surface: 4 1 Step (curb) (QC): 9 4 Steps (QC): 9 12 Steps (QC): 9 Picking up an Object (QC): 9 Does the Pt use WC or Scooter?: Yes Type: Motorized Wheel 150 feet: 6 Type: Motorized PT Plan Treatment/Plan Treatment Plan: Continue Plan of Care Treatment Plan: Bed Mobility, Education, Functional Activity Glenn, Functional Strength, Gait, Safety, Therapeutic Exercise, Transfers Treatment Duration: Jun 06, 2019 Frequency: 11 times per week Estimated Hrs Per Day: .5 hour per day Patient and/or Family Agrees t: Yes Time/GCodes Time In: 1330 Time Out: 1353 Total Billed Treatment Time: 23 Total Billed Treatment 1 visit EX 8 min GT 15 min CLAY HOLGUIN PT May 24, 2019 14:23
[2019-05-24 16:55] VITALS: BP 109/62
[2019-05-24] MEDS: PANTOPRAZOLE 40 MG (PROTONIX) TAB PO SCH (17:38)
[2019-05-24 19:50] VITALS: BP 131/76
[2019-05-24] MEDS: MELATONIN 3 MG TABLET PO SCH (21:24)
[2019-05-24] MEDS: DULoxetine 30 MG (CYMBALTA) CAP PO SCH (21:24)
[2019-05-25] VITALS: BP 133/66
[2019-05-25] MEDS: ACETAMINOPHEN 500 MG TAB (TYLENOL) PO SCH ×2 (00:08→05:48)
[2019-05-25] MEDS: HYDROcodone/APAP 10 MG/325 MG (LORTAB) TAB PO PRN ×2 (02:44→09:12)
[2019-05-25 05:18] LABS: HEMOGLOBIN 10.4 G/DL (13.3-17.7)
[2019-05-25] MEDS: ENOXAPARIN 40 MG/0.4 ML (LOVENOX) SYR SC SCH (05:48)
[2019-05-25] MEDS: LEVOTHYROXINE 100 MCG (LEVOTHROID) TAB PO SCH (05:48)
[2019-05-25] MEDS: metFORMIN XR 500 MG (GLUCOPHAGE XR) TAB PO SCH (05:48)
[2019-05-25] MEDS: LEVOTHYROXINE 50 MCG (LEVOTHROID) TAB PO SCH (05:48)
[2019-05-25] MEDS: TROSPIUM 20 MG (SANCTURA) TAB PO SCH (05:48)
[2019-05-25 08:00] VITALS: BP 125/64
[2019-05-25] MEDS: PREGABALIN 150 MG (LYRICA) CAPSULE PO SCH (09:04)
[2019-05-25] MEDS: ASPIRIN E.C. 81 MG (ECOTRIN) TAB PO SCH (09:04)
[2019-05-25] MEDS: TAMSULOSIN 0.4 MG (FLOMAX) CAP PO SCH (09:04)
[2019-05-25] MEDS: POLYETHYLENE GLYCOL 17 GM (MIRALAX) PACK PO SCH (09:04)
[2019-05-25] MEDS: SENNA W/DOCUSATE (SENOKOT S) TABLET PO SCH (09:04)
[2019-05-25 09:30] VITALS: BP 125/64
--- NOTE | 2019-05-25 09:59 | Physical Therapy Daily Note ---
PT Daily Note-Current Subjective Patient reluctantly agrees to PT. Pain Numeric Pain Scale: 5-Moderate Pain Location: Left Location Body Site: Knee Pain Description: Acute Mental Status Patient Orientation: Normal For Age Transfers SCALE: Activities may be completed with or without assistive devices. 2-Tdbcxgivfi-fawlgil completes the activity by him/herself with no assistance from a helper. 5-Set-up or Clean-up Assistance-helper sets up or cleans up; patient completes activity. [place] assists only prior to or following the activity. 4-Supervision or Touching Assistance-helper provides verbal cues and/or touching/steadying and/or contact guard assistance as patient completes activity. Assistance may be provided throughout the activity or intermittently. 3-Partial/Moderate Assistance-helper does LESS THAN HALF the effort. [place] lifts, holds or supports trunk or limbs, but provides less than half the effort. 2-Substantial/Maximal Assistance-helper does MORE THAN HALF the effort. [place] lifts or holds trunk or limbs and provides more than half the effort. 6-Jvfyjozpd-vgnqhm does ALL the effort. Patient does none of the effort to complete the activity. Or, the assistance of 2 or more helpers is required for the patient to complete the activity. If activity was not attempted, code reason: 7-Patient Refused. 9-Not Applicable-not attempted and the patient did not perform the activity before the current illness, exacerbation or injury. 10-Not Attempted due to Environmental Limitations-(lack of equipment, weather restraints, etc.). 88-Not Attempted due to Medical Conditions or Safety Concerns. Roll Left & Right (QC): 4 Sit to Lying (QC): 4 Lying to Sitting/Side of Bed(Q: 4 Sit to Stand (QC): 4 Chair/Uxy-tx-Sjztr Xfer(QC): 4 Toilet Transfer (QC): 4 Weight Bearing Right Lower Extremity: Right Full Weight Bearing Left Lower Extremity: Left Weight Bearing/Tolerated Gait Training Does the Patient Walk?: Yes Distance: 10' x 3 Walk 10 feet (QC): 3 Gait Assistive Device: FWW severe flexed knee posture in stand to FWW Exercises Supine Ex: Ankle pumps, Quad Set, Heel Slides, Straight leg raise Supine Reps: 12 Seated Therapy Exercises: Long arc quads Seated Reps: 12 Assessment Patient requires time to complete all functional tasks. Family present and will take patient home on this date. PT Short Term Goals Short Term Goals Time Frame: May 30, 2019 Roll Left & Right: 6 Sit to lyin Lying to sitting on side of be: 6 Sit to stand: 4 Chair/bqp-ml-lftqs transfer: 4 Toilet transfer: 4 PT Microstrategy Architect Developer Goals Microstrategy Architect Developer Goals PT Microstrategy Architect Developer Goals Time Frame: Jun 06, 2019 Roll Left & Right (QC): 6 Sit to Lying (QC): 6 Lying-Sitting on Side/Bed(QC): 6 Sit to Stand (QC): 5 Chair/Tst-qu-Pmrgk Xfer(QC): 5 Toilet Transfer (QC): 5 Car Transfer (QC): 4 Does the Patient Walk: Yes Walk 10 feet (QC): 4 Walk 50ft with 2 Turns (QC): 4 Walk 150 ft (QC): 4 Walking 10ft on Uneven Surface: 4 1 Step (curb) (QC): 9 4 Steps (QC): 9 12 Steps (QC): 9 Picking up an Object (QC): 9 Does the Pt use WC or Scooter?: Yes Type: Motorized Wheel 150 feet: 6 Type: Motorized PT Plan Treatment/Plan Treatment Plan: Discontinue PT Treatment Plan: Bed Mobility, Education, Functional Activity Glenn, Functional Strength, Gait, Safety, Therapeutic Exercise, Transfers Treatment Duration: Jun 06, 2019 Frequency: 11 times per week Estimated Hrs Per Day: .5 hour per day Patient and/or Family Agrees t: Yes Time/GCodes Time In: 815 Time Out: 840 Total Billed Treatment Time: 25 Total Billed Treatment 1 visit EX 14 min GT 11 min CLAY HOLGUIN PT May 25, 2019 09:59
== END 2019-05-25 09:30 | disposition home health service (06) | DRG 470 ==
LOC: 4TH 05:47 → SURG 05:48 → 4TH 11:30
PROVIDERS: ADMIT Orthopaedic Surgery; ATTEND Orthopaedic Surgery
PROC: 0SRD0J9 Replacement of Left Knee Joint with Synthetic Substitute, Cemented, Open Approach (ICD-10-PCS; principal; 2019-05-22 07:50)
DX: M17.12 Unilateral primary osteoarthritis, left knee (principal); I25.10 Atherosclerotic heart disease of native coronary artery without angina pectoris; I10 Essential (primary) hypertension; G47.33 Obstructive sleep apnea (adult) (pediatric); F17.210 Nicotine dependence, cigarettes, uncomplicated; E11.42 Type 2 diabetes mellitus with diabetic polyneuropathy; I25.2 Old myocardial infarction; R01.1 Cardiac murmur, unspecified; E78.00 Pure hypercholesterolemia, unspecified; I35.0 Nonrheumatic aortic (valve) stenosis; N40.1 Benign prostatic hyperplasia with lower urinary tract symptoms; R39.15 Urgency of urination; K21.9 Gastro-esophageal reflux disease without esophagitis; K59.09 Other constipation; M54.9 Dorsalgia, unspecified; M10.9 Gout, unspecified; G89.29 Other chronic pain; R53.81 Other malaise; E03.9 Hypothyroidism, unspecified; Z87.440 Personal history of urinary (tract) infections; Z87.442 Personal history of urinary calculi; Z87.891 Personal history of nicotine dependence; Z95.5 Presence of coronary angioplasty implant and graft; Z79.84 Long term (current) use of oral hypoglycemic drugs
CPT/HCPCS: 36415; 73560; 80048; 82962; 85014; 85018; 85027; 86850; 86900; 86901

== ENCOUNTER 2019-05-31 11:41 | Inpatient (IN) | payer MEDICARE, OTHER ==
[~2019-05-31] VITALS: Ht 180.3 cm; Wt 127.9 kg
[~2019-05-31 11:41] MED LIST changes: +SENN-20 PO
[2019-05-31] MEDS ORDERED: ONDANSETRON 4 MG/2 ML (SDV) Z0FRAN IVP ONE (11:45)
[2019-05-31] MEDS ORDERED: NS IV 1000 ML 1,000 ML IV SCH (11:45)
[2019-05-31] MEDS ORDERED: IBUPROFEN 800 MG (MOTRIN) TAB PO ONE (11:45)
--- NOTE | 2019-05-31 11:53 | ED GI ---
General Stated Complaint: WEAKNESS/DIRRHEA Source of Information: Patient Exam Limitations: No Limitations History of Present Illness Date Seen by Provider: May 31, 2019 Time Seen by Provider: 11:51 Initial Comments To ER per EMS from home with generalized weakness and diarrhea that began yesterday. Fever up to 101.1. Nausea vomiting and diarrhea as well. Had a left knee replacement this past week. Living at home, daughter has been changing the dressings. Denies cough or sore throat. Does have some periumbilical abdominal pain. Timing/Duration: 1-2 Days Severity/Quality: Moderate Location: Periumbilical Radiation: No Radiation Activities at Onset: None Associated Symptoms: Denies Symptoms Allergies and Home Medications Allergies Coded Allergies: No Known Drug Allergies (Unverified , 03/07/18) Home Medications Aspirin 81 Mg Tablet.dr, 81 MG PO DAILY, (Reported) Atorvastatin Calcium 40 Mg Tablet, 40 MG PO DAILY, (Reported) Calcium Carbonate 500 Mg Tablet, 500 MG PO 1800, (Reported) Cyanocobalamin (Vitamin B-12) 2,500 Mcg Tablet, 2,500 MCG PO DAILY, (Reported) Desmopressin Acetate 0.2 Mg Tablet, 0.6 MG PO HS, (Reported) TAKES 3 (0.2MG) TABLETS Duloxetine HCl 60 Mg Capsule.dr, 60 MG PO HS, (Reported) Furosemide 20 Mg Tablet, 20 MG PO Q48H, (Reported) Gluc Beckham/Chondro Beckham A/Vit C/Mn 1 Each Tablet, 1 TAB PO DAILY, (Reported) Hydrocodone/Acetaminophen 1 Each Tablet, 1-2 EA PO Q4H PRN for PAIN-MODERATE (5- 7) take 2 tablets only if pain is severe Prescribed by: TASH ENGLAND on 05/24/19 0653 L.acidoph & Paracasei,B.lactis 1 Each Capsule, 1 CAP PO BID, (Reported) Levothyroxine Sodium 50 Mcg Tablet, 50 MCG PO DAILY, (Reported) TAKE ALONG WITH 200MCG TABLET Levothyroxine Sodium 200 Mcg Tablet, 200 MCG PO 0700, (Reported) TAKES ALONG WITH 50MCG TABLET Melatonin 10 Mg Capsule, 10 MG PO HS, (Reported) Metformin HCl 1,000 Mg Tab.er.24, 1,000 MG PO BID WITH MEALS, (Reported) Mirabegron 50 Mg Tab.er.24h, 50 MG PO 1200, (Reported) Mv-Mn/FA/Lycopene/Lut/Hb#178 1 Each Tablet, 2 TAB PO DAILY, (Reported) [place] 3 Polyunsat Fatty Acids 1,000 Mg Cap, 1,000 MG PO DAILY, (Reported) Pantoprazole Sodium 40 Mg Tablet.dr, 40 MG PO 1800, (Reported) Potassium Chloride 8 Meq Tablet.er, 8 MEQ PO Q48H, (Reported) Pregabalin 150 Mg Capsule, 150 MG PO BID, (Reported) [place] Fruit 450 Mg Capsule, 2 CAP PO DAILY, (Reported) Sennosides/Docusate Sodium 1 Each Tablet, 2 EA PO BID Prescribed by: TASH ENGLAND on 05/24/19 0653 Solifenacin Succinate 5 Mg Tablet, 5 MG PO 1800, (Reported) Tamsulosin HCl 0.4 Mg Cap, 0.4 MG PO BID, (Reported) Zinc 50 Mg Tablet, 50 MG PO DAILY, (Reported) Patient Home Medication List Home Medication List Reviewed: Yes Review of Systems Review of Systems Constitutional: see HPI EENTM: No Symptoms Reported Respiratory: No Symptoms Reported Cardiovascular: No Symptoms Reported Gastrointestinal: See HPI, Abdominal Pain, Diarrhea, Nausea, Vomiting Genitourinary: No Symptoms Reported Skin: no symptoms reported Psychiatric/Neurological: No Symptoms Reported Endocrine: No Symptoms Reported Hematologic/Lymphatic: No Symptoms Reported Past Damnics-Kmfzsp-Veifqk Hx Patient Social History Type Used: Cigarettes Former Smoker, Quit: Feb 22, 1994 2nd Hand Smoke Exposure: No Recent Hopitalizations: No Immunizations Up To Date Date of Pneumonia Vaccine: Feb 04, 2013 Date of Influenza Vaccine: Feb 20, 2019 Seasonal Allergies Seasonal Allergies: No Past Medical History Surgeries: Yes (BACK, NECK, HERNIA, R TKR) Abdominal, Appendectomy, Gallbladder, Orthopedic Respiratory: Yes Sleep Apnea Currently Using CPAP: No Currently Using BIPAP: No Cardiac: Yes (CARDIAC STENTS) Chronic Edema/Swelling, Coronary Artery Disease, Heart Attack, Heart Murmur, High Cholesterol, Hypertension Neurological: Yes (R LEG NERVE DAMAGE) Neuropathy Reproductive Disorders: No Sexually Transmitted Disease: No HIV/AIDS: No Genitourinary: Yes (incontience) Benign Prostatic Hyperpl, Bladder Infection, Kidney Stones, UTI-Chronic Gastrointestinal: Yes Gastroesophageal Reflux, Chronic Constipation Musculoskeletal: Yes (osteoarthritis) Arthritis, Chronic Back Pain, Gout Endocrine: Yes Diabetes, Non-Insulin dep HEENT: Yes (cataracts removed) Cataract Cancer: No Psychosocial: No Integumentary: No Blood Disorders: No Adverse Reaction/Blood Tranf: No Family Medical History Alcoholism 19 FATHER Completed stroke 19 MOTHER Diabetes mellitus 19 MOTHER G8 SISTER FH: pancreatic cancer G8 BROTHER Physical Exam Vital Signs Vital Signs - First Documented 05/31/19 11:41 Temp 38.7 Pulse 103 Resp 20 B/P (MAP) 135/80 (98) Pulse Ox 88 O2 Delivery Room Air Capillary Refill : Height/Weight/BMI Height: 5'11.00" Weight: 282lbs. 0.0oz. 127.070996ez; 35.06 BMI Method:Stated General Appearance: WD/WN, no apparent distress, other (oxygen saturation 87 percent on room air arrival, 2 L applied with increase up to 92%. does not wear oxygen) HEENT: PERRL/EOMI, normal ENT inspection Respiratory: no respiratory distress, no accessory muscle use Cardiovascular: regular rate, rhythm, systolic murmur (3/6) Gastrointestinal: normal bowel sounds, soft, tenderness (periumbilical tenderness to palpation along with firmness on palpation) Extremities: normal range of motion, non-tender, other (left knee incision clean dry and intact. No drainage, no erythema. minor swellig. ) Neurologic/Psychiatric: alert, normal mood/affect, oriented x 3 Skin: normal color, warm/dry Focused Exam Lactate Level 05/31/19 11:50: Lactic Acid Level 1.83 Lactic Acid Level Laboratory Tests Test 05/31/19 11:50 Lactic Acid Level 1.83 MMOL/L (0.50-2.00) Progress/Results/Core Measures Results/Orders Lab Results Laboratory Tests Test 05/31/19 11:50 05/31/19 12:15 Range/Units White Blood Count 12.6 H 4.3-11.0 10^3/uL Red Blood Count 4.02 L 4.35-5.85 10^6/uL Hemoglobin 10.3 L 13.3-17.7 G/DL Hematocrit 33 L 40-54 % Mean Corpuscular Volume 81 80-99 FL Mean Corpuscular Hemoglobin 26 25-34 PG Mean Corpuscular Hemoglobin Concent 32 32-36 G/DL Red Cell Distribution Width 19.6 H 10.0-14.5 % Platelet Count 213 130-400 10^3/uL Mean Platelet Volume 10.3 7.4-10.4 FL Neutrophils (%) (Auto) 92 H 42-75 % Lymphocytes (%) (Auto) 4 L 12-44 % Monocytes (%) (Auto) 3 0-12 % Eosinophils (%) (Auto) 1 0-10 % Basophils (%) (Auto) 0 0-10 % Neutrophils # (Auto) 11.5 H 1.8-7.8 X 10^3 Lymphocytes # (Auto) 0.5 L 1.0-4.0 X 10^3 Monocytes # (Auto) 0.4 0.0-1.0 X 10^3 Eosinophils # (Auto) 0.2 0.0-0.3 10^3/uL Basophils # (Auto) 0.0 0.0-0.1 10^3/uL Neutrophils % (Manual) 93 % Lymphocytes % (Manual) 4 % Monocytes % (Manual) 1 % Poikilocytosis SLIGHT Anisocytosis MODERATE Microcytosis SLIGHT Spherocytes SLIGHT Sodium Level 137 135-145 MMOL/L Potassium Level 4.0 3.6-5.0 MMOL/L Chloride Level 106 98-107 MMOL/L Carbon Dioxide Level 20 L 21-32 MMOL/L Anion Gap 11 5-14 MMOL/L Blood Urea Nitrogen 31 H 7-18 MG/DL Creatinine 1.53 H 0.60-1.30 MG/DL Estimat Glomerular Filtration Rate 44 BUN/Creatinine Ratio 20 Glucose Level 135 H 70-105 MG/DL Lactic Acid Level 1.83 0.50-2.00 MMOL/L Calcium Level 8.4 L 8.5-10.1 MG/DL Corrected Calcium 9.2 8.5-10.1 MG/DL Total Bilirubin 0.8 0.1-1.0 MG/DL Aspartate Amino Transf (AST/SGOT) 44 H 5-34 U/L Alanine Aminotransferase (ALT/SGPT) 34 0-55 U/L Alkaline Phosphatase 81 40-136 U/L Total Protein 6.4 6.4-8.2 GM/DL Albumin 3.0 L 3.2-4.5 GM/DL Lipase < 4 L 8-78 U/L Urine Color YELLOW Urine Clarity CLEAR Urine pH 6.0 5-9 Urine Specific [place] 1.010 L 1.016-1.022 Urine Protein 1+ H NEGATIVE Urine Glucose (UA) NEGATIVE NEGATIVE Urine Ketones NEGATIVE NEGATIVE Urine Nitrite NEGATIVE NEGATIVE Urine Bilirubin NEGATIVE NEGATIVE Urine Urobilinogen 0.2 < = 1.0 MG/DL Urine Leukocyte Esterase 1+ H NEGATIVE Urine RBC (Auto) TRACE-I NEGATIVE Urine RBC 2-5 H /HPF Urine WBC 25-50 H /HPF Urine Squamous Epithelial Cells RARE /HPF Urine Crystals NONE /LPF Urine Bacteria FEW H /HPF Urine Casts NONE /LPF Urine Mucus NEGATIVE /LPF Urine Culture Indicated YES Micro Results Microbiology 05/31/19 Influenza Types A,B Antigen (MARINA) - Final, Complete My Orders Orders - HUAN GRAY APRN Cbc With Automated Diff (05/31/19 11:44) Comprehensive Metabolic Panel (05/31/19 11:44) Blood Culture (05/31/19 11:44) Lactic Acid Analyzer (05/31/19 11:44) Ua Culture If Indicated (05/31/19 11:44) Ed Iv/Invasive Line Start (05/31/19 11:44) Lipase (05/31/19 11:44) Ns Iv 1000 Ml (Sodium Chloride 0.9%) (05/31/19 11:45) Ondansetron Injection (Zofran Injectio (05/31/19 11:45) Ibuprofen Tablet (Motrin Tablet) (05/31/19 11:45) Influenza A And B Antigens (05/31/19 11:44) Chest 1 View, Ap/Pa Only (05/31/19 11:44) Ct Abdomen/Pelvis Wo (05/31/19 11:53) Manual Differential (05/31/19 11:50) Anguiano Cath (05/31/19 12:17) Urine Culture (05/31/19 12:15) Ceftriaxone For Iv Use (Rocephin For I (05/31/19 13:00) Medications Given in ED Current Medications Medications Dose Ordered Sig/Connor Route Start Time Stop Time Status Last Admin Dose Admin Ceftriaxone Sodium 1000 mg/ Sterile Water 10 ml @ 200 mls/hr ONCE ONCE IV 05/31/19 13:00 05/31/19 13:02 DC 05/31/19 13:09 200 MLS/HR Ibuprofen 800 mg ONCE ONCE PO 05/31/19 11:45 05/31/19 11:47 DC 05/31/19 12:08 800 MG Ondansetron HCl 8 mg ONCE ONCE IVP 05/31/19 11:45 05/31/19 11:47 DC 05/31/19 12:08 8 MG Vital Signs/I&O 05/31/19 11:41 Temp 38.7 Pulse 103 Resp 20 B/P (MAP) 135/80 (98) Pulse Ox 88 O2 Delivery Room Air Diagnostic Imaging Diagonstic Imaging: Xray Plain Films/CT/US/NM/MRI: chest Comments NAME: DIANDRA VO [facility] REC#: [id number] PT STATUS: REG ER : 1940 PHYSICIAN: HUAN GRAY APRN ADMIT DATE: 05/31/19/ER Draft Date of Exam:05/31/19 CHEST 1 VIEW, AP/PA ONLY INDICATION: Fever Portable upright AP view of the chest is obtained. When compared to study of 02/21/2018 there has been an increase in basilar interstitial markings which may be due to atelectasis or possible pneumonitis. No consolidation, pneumothorax or pleural fluid is identified. Calcified granulomas are seen in the right lung and hilum. IMPRESSION: Increased basilar atelectasis and/or pneumonitis. Radiographic follow-up would be of use. Dictated on workstation # [id number] Dict: 05/31/19 1203 Trans: 05/31/19 1206 [facility] [id number] Interpreted by: CAMILO PULLIAM MD Electronically signed by: NAME: DIANDRA VO [facility] REC#: [id number] PT STATUS: REG ER : 1940 PHYSICIAN: HUAN GRAY APRN ADMIT DATE: 05/31/19/ER Draft Date of Exam:05/31/19 CT ABDOMEN/PELVIS WO EXAMINATION: CT Abdomen Pelvis without contrast. TECHNIQUE: Multiple contiguous axial images were obtained through the abdomen and pelvis without the use of intravenous contrast. All CT scans use one or more of the following dose optimizing techniques: automated exposure control, MA and/or KvP adjustment based on a patient size and exam type, or iterative reconstruction. HISTORY: Low abdominal pain COMPARISON: 02/24/2018 FINDINGS: Limited views of the lower thorax reveal mild atelectasis and a tiny left pleural effusion. The liver is normal without focal lesion. There is no biliary ductal dilation. Gallbladder is surgically absent. Pancreas is normal. Calcified granulomas are seen in the spleen. Adrenal glands are normal. There is a cyst in the left kidney. No suspicious renal lesions. A few tiny nonobstructing stones are seen in the left kidney. There is no hydronephrosis. Urinary bladder is decompressed by Anguiano catheter. Colon is distended with gas. No transition point to indicate obstruction. There is no wall thickening. No free fluid or air. No abdominal or pelvic lymphadenopathy. Aorta is normal in caliber without aneurysm. There is diffuse body wall edema. There is an unchanged cystic lesion involving the skin of the left flank. There are no suspicious osseus lesions. IMPRESSION: 1. Distended colon containing gas without transition point to indicate obstruction, likely related to ileus. No wall thickening to indicate colonic inflammation. 2. Tiny left pleural effusion. Dictated on workstation # [id number] Dict: 05/31/19 1304 Trans: 05/31/19 1312 [facility] [id number] Interpreted by: SHAWN BATRES MD Electronically signed by: Departure Communication (Admissions) Time/Spoke to Admitting Phy: 13:[address] Yeung, we will admit on Rocephin. Anguiano cath started-had 2500cc out. This would certainly explain the periumbilical pain. Impression Primary Impression: Urinary tract infection Qualified Codes: N30.00 - Acute cystitis without hematuria Additional Impressions: Systolic murmur Sepsis Status post left knee replacement Disposition: ADMITTED INPATIENT Condition: Stable Admissions Decision to Admit Reason: Admit from ER (General) Decision to Admit/Date: May 31, 2019 Time/Decision to Admit Time: 12:51 Departure-Patient Inst. Referrals: BRIDGETT GUEVARA MD (PCP) Primary Care Physician HUAN GRAY APRN May 31, 2019 11:53
[2019-05-31 12:02] LABS: BASOPHILS % (AUTO) 0 % (0-10); EOSINOPHILS # (AUTO) 0.2 10^3/uL (0.0-0.3); EOSINOPHILS % (AUTO) 1 % (0-10); HEMATOCRIT 33 % (40-54); HEMOGLOBIN 10.3 G/DL (13.3-17.7); LYMPHOCYTES # (AUTO) 0.5 X 10^3 (1.0-4.0); LYMPHOCYTES % (AUTO) 4 % (12-44); MEAN CORPUSCULAR HEMOGLOBIN 26 PG (25-34); MEAN CORPUSCULAR HGB CONC 32 G/DL (32-36); MEAN CORPUSCULAR VOLUME 81 FL (80-99); MEAN PLATELET VOLUME 10.3 FL (7.4-10.4); MONOCYTES # (AUTO) 0.4 X 10^3 (0.0-1.0); MONOCYTES % (AUTO) 3 % (0-12); NEUTROPHILS # (AUTO) 11.5 X 10^3 (1.8-7.8); NEUTROPHILS % (AUTO) 92 % (42-75); PLATELET COUNT 213 10^3/uL (130-400); RED CELL DISTRIBUTION WIDTH 19.6 % (10.0-14.5); WHITE BLOOD COUNT 12.6 10^3/uL (4.3-11.0)
--- NOTE | 2019-05-31 12:06 | Diagnostic Imaging Report ---
INDICATION: Fever Portable upright AP view of the chest is obtained. When compared to study of 02/21/2018 there has been an increase in basilar interstitial markings which may be due to atelectasis or possible pneumonitis. No consolidation, pneumothorax or pleural fluid is identified. Calcified granulomas are seen in the right lung and hilum. IMPRESSION: Increased basilar atelectasis and/or pneumonitis. Radiographic follow-up would be of use. Dictated by: Dictated on workstation # [id number]
[2019-05-31 12:20] LABS: ALANINE AMINOTRANSFERASE 34 U/L (0-55); ALKALINE PHOSPHATASE 81 U/L (40-136); BILIRUBIN,TOTAL 0.8 MG/DL (0.1-1.0); BUN/CREATININE RATIO 20; CALCIUM 8.4 MG/DL (8.5-10.1); CARBON DIOXIDE 20 MMOL/L (21-32); CHLORIDE 106 MMOL/L (98-107); CREATININE SERUM 1.53 MG/DL (0.60-1.30); GFR ESTIMATED 44; GLUCOSE 135 MG/DL (70-105); LIPASE < 4 U/L (8-78); SODIUM 137 MMOL/L (135-145); TOTAL PROTEIN 6.4 GM/DL (6.4-8.2)
[2019-05-31 12:28] LABS: BILIRUBIN,URINE NEGATIVE (NEGATIVE); CLARITY,URINE CLEAR; COLOR,URINE YELLOW; GLUCOSE, URINE (UA) NEGATIVE (NEGATIVE); KETONES,URINE NEGATIVE (NEGATIVE); LEUKOCYTE ESTERASE ,URINE 1+ (NEGATIVE); NITRITE,URINE NEGATIVE (NEGATIVE); PROTEIN,URINE 1+ (NEGATIVE)
[2019-05-31 12:38] LABS: BACTERIA,URINE FEW /HPF; SQUAMOUS EPITHELIAL CELL,UR RARE /HPF; WBC,URINE 25-50 /HPF
[2019-05-31 12:42] LABS: ANISOCYTOSIS MODERATE; LYMPHOCYTES % (MANUAL) 4 %; MICROCYTOSIS SLIGHT; MONOCYTES % (MANUAL) 1 %; NEUTROPHILS % (MANUAL) 93 %; POIKILOCYTOSIS SLIGHT; SPHEROCYTES SLIGHT
[2019-05-31] MEDS ORDERED: cefTRIAXone FOR IV USE 1,000 MG in WATER (STERILE) FOR INJECTION 10 ML IV ONE (13:00)
--- NOTE | 2019-05-31 13:13 | Diagnostic Imaging Report ---
EXAMINATION: CT Abdomen Pelvis without contrast. TECHNIQUE: Multiple contiguous axial images were obtained through the abdomen and pelvis without the use of intravenous contrast. All CT scans use one or more of the following dose optimizing techniques: automated exposure control, MA and/or KvP adjustment based on a patient size and exam type, or iterative reconstruction. HISTORY: Low abdominal pain COMPARISON: 02/24/2018 FINDINGS: Limited views of the lower thorax reveal mild atelectasis and a tiny left pleural effusion. The liver is normal without focal lesion. There is no biliary ductal dilation. Gallbladder is surgically absent. Pancreas is normal. Calcified granulomas are seen in the spleen. Adrenal glands are normal. There is a cyst in the left kidney. No suspicious renal lesions. A few tiny nonobstructing stones are seen in the left kidney. There is no hydronephrosis. Urinary bladder is decompressed by Anguiano catheter. Colon is distended with gas. No transition point to indicate obstruction. There is no wall thickening. No free fluid or air. No abdominal or pelvic lymphadenopathy. Aorta is normal in caliber without aneurysm. There is diffuse body wall edema. There is an unchanged cystic lesion involving the skin of the left flank. There are no suspicious osseus lesions. IMPRESSION: 1. Distended colon containing gas without transition point to indicate obstruction, likely related to ileus. No wall thickening to indicate colonic inflammation. 2. Tiny left pleural effusion. Dictated by: Dictated on workstation # [id number]
[2019-05-31] MEDS ORDERED: ONDANSETRON 4 MG/2 ML (SDV) Z0FRAN IV PRN ×2 (14:45→19:15)
[2019-05-31] MEDS ORDERED: CATHETER FLUSH 10 ML SYR IV PRN (14:45)
[2019-05-31] MEDS ORDERED: ACETAMINOPHEN 500 MG TAB (TYLENOL) PO PRN (14:45)
[2019-05-31 14:46] VITALS: BP 102/53
[2019-05-31] MEDS: NS IV 1000 ML 1,000 ML IV SCH (15:28)
[2019-05-31] MEDS: ENOXAPARIN 40 MG/0.4 ML (LOVENOX) SYR SC SCH (15:28)
[2019-05-31 15:32] VITALS: BP 102/53
[2019-05-31] MEDS ORDERED: RT-ALBUTEROL/IPRATROPIUM 3 ML (DUONEB) VIAL INH PRN (16:00)
[2019-05-31 16:18] VITALS: BP 102/51
[2019-05-31] MEDS ORDERED: SENN-109 PO (16:30)
[2019-05-31] MEDS ORDERED: cefTRIAXone FOR IV USE 1,000 MG in WATER (STERILE) FOR INJECTION 10 ML IV NR (18:30)
--- NOTE | 2019-05-31 19:14 | History & Physical-Hospitalist ---
History of Present Illness HPI/Chief Complaint Ilia Barbour is an 79-year-old male with past medical history of hypertension, diabetes, BPH, osteoarthritis, who presented with fever. He had also been experiencing nausea, vomiting, and diarrhea. He had his left knee replaced about a week ago. He reports that he had some abdominal discomfort. He reports that he had dribbling urine. He reports occasionally having dysuria. He denies any chest pain or shortness of breath. He is in good spirits and is making jokes about needing to get out of his house. He has family members at bedside. Source: patient Exam Limitations: no limitations Date Seen 05/31/19 Time Seen by a Provider: 18:45 Attending Physician Katy Mcmahon MD PCP Mirza Bach MD Referring Physician Date of Admission May 31, 2019 at 13:44 Home Medications & Allergies Home Medications Reviewed patient Home Medication Reconciliation performed by pharmacy medication reconciliations test lab technician and/or nursing. Patients Allergies have been reviewed. Allergies Allergies Coded Allergies No Known Drug Allergies (Uxmztloowp78/2/18) Past Vsftvqe-Fbyols-Rvdbpw Hx Past Med/Social Hx: Reviewed Nursing Past Med/Soc Hx Patient Social History Alcohol Use: Rarely Uses Recreational Drug Use: No Smoking Status: Former Smoker Former Smoker, Quit: Feb 22, 1994 Type Used: Cigarettes 2nd Hand Smoke Exposure: No Recent Foreign Travel: No Contact w/other who traveled: No Recent Hopitalizations: No Recent Infectious Disease Expo: No Immunizations Up To Date Date of Pneumonia Vaccine: Mar 31, 2019 Date of Influenza Vaccine: Mar 31, 2019 Seasonal Allergies Seasonal Allergies: No Past Medical History Surgeries: Abdominal, Appendectomy, Gallbladder, Orthopedic Respiratory: Sleep Apnea Currently Using CPAP: No Currently Using BIPAP: No Cardiac: Chronic Edema/Swelling, Coronary Artery Disease, Heart Attack, Heart Murmur, High Cholesterol, Hypertension Aortic stenosis as I recall not critical or severe Neurological: Neuropathy Reproductive: No Sexually Transmitted Disease: No HIV/AIDS: No Genitourinary: Benign Prostatic Hyperpl, Bladder Infection, Kidney Stones, UTI- Chronic Gastrointestinal: Gastroesophageal Reflux, Chronic Constipation Musculoskeletal: Arthritis, Chronic Back Pain, Gout Endocrine: Diabetes, Non-Insulin dep HEENT: Cataract History of Blood Disorders: No Adverse Reaction to Blood [place]: No Family History Alcoholism 19 FATHER Completed stroke 19 MOTHER Diabetes mellitus 19 MOTHER G8 SISTER FH: pancreatic cancer G8 BROTHER Review of Systems Constitutional: fever EENTM: no symptoms reported Respiratory: no symptoms reported Cardiovascular: no symptoms reported Gastrointestinal: abdominal pain, diarrhea, nausea, vomiting Genitourinary: dysuria, hesitancy, incontinence Musculoskeletal: no symptoms reported Skin: no symptoms reported Psychiatric/Neurological: No Symptoms Reported Physical Exam Physical Exam Vital Signs Vital Signs - First Documented 05/31/19 05/31/19 05/31/19 11:41 14:46 15:32 Temp 38.7 Pulse 103 Resp 20 B/P (MAP) 135/80 (98) Pulse Ox 88 O2 Delivery Room Air O2 Flow Rate 2.00 FiO2 28 Capillary Refill : Less Than 3 Seconds Height, Weight, BMI Height: 5'11.00" Weight: 282lbs. 0.0oz. 127.590549kw; 37.80 BMI Method:Stated General Appearance: No Apparent Distress, Obese HEENT: PERRL/EOMI, Pharynx Normal Neck: Normal Inspection, Supple Respiratory: Lungs Clear, Normal Breath Sounds, No Respiratory Distress Cardiovascular: Regular Rate, Rhythm, Systolic Murmur Gastrointestinal: Normal Bowel Sounds, Non Tender, Soft Extremity: Normal Inspection, Non Tender, Pedal Edema, Other (Left knee wrapped) Neurologic/Psychiatric: Alert, Oriented x3, No Motor/Sensory Deficits, Normal Mood/Affect Skin: Normal Color, Warm/Dry Results Results/Procedures Labs Laboratory Tests 05/31/19 11:50 Patient resulted labs reviewed. Imaging: Reviewed Imaging Report Assessment/Plan Admission Diagnosis Sepsis due to urinary tract infection Admission Status: Inpatient Order (span 2 midnights) Reason for Inpatient Admission: Sepsis due to urinary tract infection requiring IV antibiotics Assessment and Plan Sepsis due to urinary tract infection BPH with urinary retention SIRS+ with fever and tachycardia UA revealed source to be urinary tract infection Exlineurine culture pending Blood cultures drawn Started on Rocephin Anguiano catheter in place Consult urology Type II diabetes mellitus Hold metformin Sliding scale insulin Continue Lyrica DVT prophylaxis: Lovenox Diagnosis/Problems Diagnosis/Problems (1) Sepsis due to urinary tract infection Status: Acute (2) Urinary retention due to benign prostatic hyperplasia Status: Acute (3) T2DM (type 2 diabetes mellitus) Status: Chronic Qualifiers: Diabetes mellitus extermination supervisor insulin use: without extermination supervisor use Diabetes mellitus complication status: with neurologic complications Diabetes mellitus complication detail: with polyneuropathy Qualified Codes: E11.42 - Type 2 diabetes mellitus with diabetic polyneuropathy Clinical Quality Measures DVT/VTE Risk/Contraindication: Risk Factor Score Per Nursin RFS Level Per Nursing on Admit: 4+=Very High KATY MCMAHON MD May 31, 2019 19:14
[2019-05-31] MEDS ORDERED: ONDANSETRON 4 MG (ZOFRAN) ORAL DISSOLVE TAB PO PRN (19:15)
[2019-05-31] MEDS ORDERED: ANTACID SUSP 30 ML UDC (MYLANTA) PO PRN (19:15)
[2019-05-31] MEDS ORDERED: ACETAMINOPHEN 325 MG TABLET PO PRN (19:15)
[2019-05-31] MEDS ORDERED: POLYETHYLENE GLYCOL 17 GM (MIRALAX) PACK PO PRN (19:15)
[2019-05-31] MEDS ORDERED: BISACODYL 10 MG SUPP (DULCOLAX) PR PRN (19:15)
[2019-05-31] MEDS: RT-ALBUTEROL/IPRATROPIUM 3 ML (DUONEB) VIAL INH SCH ×2 (19:20→22:14)
[2019-05-31 20:00] VITALS: BP 103/54
[2019-05-31] MEDS ORDERED: NON-FORMULARY MEDICATION 1 EA EA (Melatonin 10 MG) PO SCH (21:00)
[2019-05-31] MEDS ORDERED: NON-FORMULARY MEDICATION 1 EA EA (Duloxetine HCl 60 MG) PO SCH (21:00)
[2019-05-31] MEDS: inSUlin ASPART (NovoLOG) 1 UNIT/0.01 ML (CHARGE PER UNIT) SC SCH (21:00)
[2019-05-31] MEDS: MELATONIN 3 MG TABLET PO SCH (21:11)
[2019-05-31] MEDS: TAMSULOSIN 0.4 MG (FLOMAX) CAP PO SCH (21:11)
[2019-05-31] MEDS: DULoxetine 30 MG (CYMBALTA) CAP PO SCH (21:11)
[2019-05-31] MEDS: PREGABALIN 150 MG (LYRICA) CAPSULE PO SCH (21:11)
[2019-05-31] MEDS: SENNOSIDES 8.6 MG (SENOKOT) TAB PO SCH (21:12)
[2019-05-31] MEDS: DOCUSATE SODIUM 100 MG (COLACE) CAP PO SCH (21:13)
[2019-06-01] VITALS: BP 119/58
[2019-06-01] MEDS: RT-ALBUTEROL/IPRATROPIUM 3 ML (DUONEB) VIAL INH SCH ×6 (02:21→22:44)
[2019-06-01 04:00] VITALS: BP 106/54
[2019-06-01] MEDS: NS IV 1000 ML 1,000 ML IV SCH ×2 (05:31→20:10)
[2019-06-01 06:24] LABS: BASOPHILS % (AUTO) 0 % (0-10); EOSINOPHILS # (AUTO) 0.2 10^3/uL (0.0-0.3); EOSINOPHILS % (AUTO) 2 % (0-10); HEMATOCRIT 27 % (40-54); HEMOGLOBIN 8.6 G/DL (13.3-17.7); LYMPHOCYTES # (AUTO) 1.1 X 10^3 (1.0-4.0); LYMPHOCYTES % (AUTO) 11 % (12-44); MEAN CORPUSCULAR HEMOGLOBIN 26 PG (25-34); MEAN CORPUSCULAR HGB CONC 32 G/DL (32-36); MEAN CORPUSCULAR VOLUME 82 FL (80-99); MEAN PLATELET VOLUME 11.3 FL (7.4-10.4); MONOCYTES % (AUTO) 11 % (0-12); NEUTROPHILS % (AUTO) 75 % (42-75); PLATELET COUNT 154 10^3/uL (130-400); WHITE BLOOD COUNT 9.3 10^3/uL (4.3-11.0)
[2019-06-01] MEDS: LEVOTHYROXINE 100 MCG (LEVOTHROID) TAB PO SCH (06:37)
[2019-06-01] MEDS: LEVOTHYROXINE 50 MCG (LEVOTHROID) TAB PO SCH (06:37)
[2019-06-01 06:48] LABS: ALANINE AMINOTRANSFERASE 29 U/L (0-55); ALBUMIN 2.7 GM/DL (3.2-4.5); ALKALINE PHOSPHATASE 89 U/L (40-136); BILIRUBIN,TOTAL 0.4 MG/DL (0.1-1.0); BUN/CREATININE RATIO 26; CARBON DIOXIDE 20 MMOL/L (21-32); CHLORIDE 112 MMOL/L (98-107); CREATININE SERUM 1.09 MG/DL (0.60-1.30); GFR ESTIMATED > 60; GLUCOSE 123 MG/DL (70-105); POTASSIUM 3.4 MMOL/L (3.6-5.0); SODIUM 142 MMOL/L (135-145); TOTAL PROTEIN 5.4 GM/DL (6.4-8.2)
[2019-06-01] MEDS: inSUlin ASPART (NovoLOG) 1 UNIT/0.01 ML (CHARGE PER UNIT) SC SCH ×4 (06:51→20:53)
[2019-06-01] MEDS ORDERED: NON-FORMULARY MEDICATION 1 EA EA (Levothyroxine Sodium (Synthroid) 200 MCG) PO SCH (07:00)
--- NOTE | 2019-06-01 07:43 | Diagnostic Imaging Report ---
INDICATION: Shortness of breath. Comparison is made with prior examination from 05/31/2019. FINDINGS: There is cardiomegaly. There is venous congestion. There are patchy bibasilar infiltrates. There is no pleural effusion or pneumothorax. Mediastinum is unremarkable. IMPRESSION: Patchy bibasilar pulmonary infiltrates. Cardiomegaly and mild central pulmonary venous congestion Dictated by: Dictated on workstation # [id number]
[2019-06-01 08:00] VITALS: BP 112/67
[2019-06-01] MEDS: ASPIRIN E.C. 81 MG (ECOTRIN) TAB PO SCH (09:10)
[2019-06-01] MEDS: TAMSULOSIN 0.4 MG (FLOMAX) CAP PO SCH ×2 (09:10→21:56)
[2019-06-01] MEDS: SENNOSIDES 8.6 MG (SENOKOT) TAB PO SCH ×2 (09:11→20:15)
[2019-06-01] MEDS: PREGABALIN 150 MG (LYRICA) CAPSULE PO SCH ×2 (09:11→21:56)
[2019-06-01] MEDS: DOCUSATE SODIUM 100 MG (COLACE) CAP PO SCH ×2 (09:11→20:15)
[2019-06-01 12:00] VITALS: BP 125/73
[2019-06-01] MEDS ORDERED: NON-FORMULARY MEDICATION 1 EA EA (Mirabegron (Myrbetriq) 50 MG) PO SCH (12:00)
--- NOTE | 2019-06-01 12:39 | CONSULTATION REPORT ---
DATE OF SERVICE: 06/01/2019 ATTENDING PHYSICIAN: Dr. Yeung. SUMMARY: An 79-year-old white man known to me with BPH and neurogenic bladder with history of retention as well as incontinence, who was admitted with UTI and retention, was found to have 2.5 liters of urine in his bladder. Catheter was inserted and left indwelling. The patient states that he is on some anticholinergic as well as tamsulosin twice a day. IMPRESSION: Neurogenic bladder and BPH with retention, incontinence and urinary tract infection. PLAN: 1. Continue tamsulosin b.i.d. 2. Hold Myrbetriq, VESIcare and DDAVP and any other bladder medications. 3. Continue Rocephin. 4. Start him on Urecholine 25 mg q.i.d. before meals and at bedtime and manage accordingly. Job ID: [id number] DocumentID: [id number] Dictated Date: 06/01/2019 12:26:16 Sliver Machine Operator Date: 06/01/2019 12:38:55 Dictated By: FANG MCMILLAN MD
[2019-06-01] MEDS ORDERED: cefTRIAXone FOR IV USE 2,000 MG in WATER (STERILE) FOR INJECTION 20 ML IV SCH (13:00)
[2019-06-01] MEDS ORDERED: cefTRIAXone 1,000 MG/SWFI 10 ML IV PUSH IV SCH ×2 (13:00)
--- NOTE | 2019-06-01 15:40 | Progress Note - Hospitalist ---
Subjective HPI/CC On Admission Date Seen by Provider: Jun 01, 2019 Time Seen by Provider: 09:20 Ilia Barbour is an 79-year-old male with past medical history of hypertension, diabetes, BPH, osteoarthritis, who presented with fever. He had also been experiencing nausea, vomiting, and diarrhea. He had his left knee replaced about a week ago. He reports that he had some abdominal discomfort. He reports that he had dribbling urine. He reports occasionally having dysuria. He denies any chest pain or shortness of breath. He is in good spirits and is making jokes about needing to get out of his house. He has family members at bedside. Subjective/Events-last exam He reports feeling well this morning. He denies any fevers or chills. He denies any chest pain or shortness of breath. He denies any abdominal pain, nausea, vomiting, or diarrhea. Focused Exam Lactate Level 05/31/19 11:50: Lactic Acid Level 1.83 Objective Exam Vital Signs Vital Signs Date Time Temp Pulse Resp B/P (MAP) Pulse Ox O2 Delivery O2 Flow Rate FiO2 06/01/19 12:00 35.8 80 18 125/73 (90) 91 Nasal Cannula 2.00 06/01/19 02:21 95 Capillary Refill : Less Than 3 Seconds General Appearance: No Apparent Distress, WD/WN, Obese HEENT: PERRL/EOMI, Pharynx Normal Neck: Normal Inspection, Supple Respiratory: Lungs Clear, Normal Breath Sounds, No Respiratory Distress Cardiovascular: Regular Rate, Rhythm, No Murmur Gastrointestinal: Normal Bowel Sounds, Soft, Tenderness Extremity: Normal Inspection, Non Tender, Pedal Edema Neurologic/Psychiatric: Alert, Oriented x3, No Motor/Sensory Deficits, Normal Mood/Affect Skin: Normal Color, Warm/Dry Lymphatic: No Adenopathy Results/Procedures Lab Laboratory Tests 06/01/19 05:54 Patient resulted labs reviewed. Imaging: Reviewed Imaging Report Assessment/Plan Assessment and Plan Assess & Plan/Chief Complaint Sepsis due to urinary tract infection BPH with urinary retention Acute kidney injury Urine culture growing Escherichia coli One of 2 blood cultures growing Escherichia coli Continue ceftriaxone Creatinine improving Anguiano in place Consult urology Type II diabetes mellitus Hold metformin Sliding scale insulin Continue Lyrica DVT prophylaxis: Lovenox Diagnosis/Problems Diagnosis/Problems (1) Sepsis due to urinary tract infection Status: Acute (2) Urinary retention due to benign prostatic hyperplasia Status: Acute (3) T2DM (type 2 diabetes mellitus) Status: Chronic Qualifiers: Diabetes mellitus half-way insulin use: without termite inspector use Diabetes mellitus complication status: with neurologic complications Diabetes mellitus complication detail: with polyneuropathy Qualified Codes: E11.42 - Type 2 diabetes mellitus with diabetic polyneuropathy (4) Acute kidney injury Status: Acute Clinical Quality Measures DVT/VTE Risk/Contraindication: Risk Factor Score Per Nursin RFS Level Per Nursing on Admit: 4+=Very High NAREN MCMAHON MD Jun 01, 2019 15:40
[2019-06-01] MEDS ORDERED: BETHANECHOL 25 MG (URECHOLINE) TAB PO SCH (16:00)
[2019-06-01] MEDS: BETHANECHOL 25 MG (URECHOLINE) TAB PO SCH ×2 (16:07→21:56)
[2019-06-01] MEDS: ENOXAPARIN 40 MG/0.4 ML (LOVENOX) SYR SC SCH (16:07)
[2019-06-01 16:22] VITALS: BP 119/58
[2019-06-01] MEDS ORDERED: PANTOPRAZOLE 40 MG (PROTONIX) TAB PO SCH (18:00)
[2019-06-01] MEDS ORDERED: SOLIFENACIN 5 MG TAB (VESICARE) NON-FORMULARY PO SCH (18:00)
[2019-06-01 20:37] VITALS: BP 106/54
[2019-06-01] MEDS: DULoxetine 30 MG (CYMBALTA) CAP PO SCH (21:56)
[2019-06-01] MEDS: MELATONIN 3 MG TABLET PO SCH (21:56)
[2019-06-02] VITALS: BP 108/54
[2019-06-02] MEDS: RT-ALBUTEROL/IPRATROPIUM 3 ML (DUONEB) VIAL INH SCH ×3 (02:22→12:08)
[2019-06-02 03:55] VITALS: BP 115/64
[2019-06-02] MEDS: inSUlin ASPART (NovoLOG) 1 UNIT/0.01 ML (CHARGE PER UNIT) SC SCH ×2 (06:40→12:37)
[2019-06-02] MEDS: LEVOTHYROXINE 50 MCG (LEVOTHROID) TAB PO SCH (06:46)
[2019-06-02] MEDS: BETHANECHOL 25 MG (URECHOLINE) TAB PO SCH ×2 (06:46→11:33)
[2019-06-02] MEDS: LEVOTHYROXINE 100 MCG (LEVOTHROID) TAB PO SCH (06:47)
[2019-06-02 07:46] VITALS: BP 119/61
[2019-06-02 08:43] LABS: BUN/CREATININE RATIO 20; CALCIUM 8.2 MG/DL (8.5-10.1); CARBON DIOXIDE 20 MMOL/L (21-32); CHLORIDE 112 MMOL/L (98-107); CREATININE SERUM 0.85 MG/DL (0.60-1.30); GFR ESTIMATED > 60; GLUCOSE 118 MG/DL (70-105); MAGNESIUM 1.4 MG/DL (1.6-2.4); POTASSIUM 3.5 MMOL/L (3.6-5.0); SODIUM 141 MMOL/L (135-145)
[2019-06-02] MEDS: NS IV 1000 ML 1,000 ML IV SCH (08:56)
[2019-06-02] MEDS: ASPIRIN E.C. 81 MG (ECOTRIN) TAB PO SCH (08:56)
[2019-06-02] MEDS: DOCUSATE SODIUM 100 MG (COLACE) CAP PO SCH (08:57)
[2019-06-02] MEDS: PREGABALIN 150 MG (LYRICA) CAPSULE PO SCH (08:57)
[2019-06-02] MEDS: SENNOSIDES 8.6 MG (SENOKOT) TAB PO SCH (08:57)
[2019-06-02] MEDS: TAMSULOSIN 0.4 MG (FLOMAX) CAP PO SCH (08:57)
--- NOTE | 2019-06-02 09:01 | Physical Therapy Evaluation ---
PT Evaluation-General Medical Diagnosis Admission Date May 31, 2019 at 13:44 Medical Diagnosis: UTI Onset Date: May 30, 2019 Therapy Diagnosis Therapy Diagnosis: difficulty walking Height/Weight Height (Feet): 5 Height (Inches): 11.00 Weight (Pounds): 282 Weight (Ounces): 0.0 Precautions Precautions/Isolations: Fall Prevention, Standard Precautions Weight Bear Status Right Lower Extremity: Right Weight Bearing/Tolerated Left Lower Extremity: Left Weight Bearing/Tolerated Referral Reason for Referral: Evaluation/Treatment Medical History Pertinent Medical History: CAD, DM, HTN Social History Home: Single Level Current Living Status: Spouse Entry Into Home: Ramp Prior Prior Level of Function SCALE: Activities may be completed with or without assistive devices. 3-Chhkkptzgz-uffojlg completes the activity by him/herself with no assistance from a helper. 5-Set-up or Clean-up Assistance-helper sets up or cleans up; patient completes activity. [place] assists only prior to or following the activity. 4-Supervision or Touching Assistance-helper provides verbal cues and/or touching/steadying and/or contact guard assistance as patient completes act ivity. Assistance may be provided throughout the activity or intermittently. 3-Partial/Moderate Assistance-helper does LESS THAN HALF the effort. [place] lifts, holds or supports trunk or limbs, but provides less than half the effort. 2-Substantial/Maximal Assistance-helper does MORE THAN HALF the effort. [place] lifts or holds trunk or limbs and provides more than half the effort. 8-Afpzzjxlq-fupkst does ALL the effort. Patient does none of the effort to complete the activity. Or, the assistance of 2 or more helpers is required for the patient to complete the activity. If activity was not attempted, code reason: 7-Patient Refused. 9-Not Applicable-not attempted and the patient did not perform the activity before the current illness, exacerbation or injury. 10-Not Attempted due to Environmental Limitations-(lack of equipment, weather restraints, etc.). 88-Not Attempted due to Medical Conditions or Safety Concerns. Bed Mobility: 6 Transfers (B,C,W/C): 6 Gait: 6 Prior Devices Use: Motorized scooter, Walker PT Evaluation-Current Subjective States that he was doing very well after his TKA and then on he was not feeling well. States that he had to come to the ED and was admitted. States that he is feeling better now. Pain Numeric Pain Scale: 0-No Pain Objective Patient Orientation: Person, Place, Time Attachments: Anguiano Catheter, IV ROM/Strength ROM Lower Extremities 5 degrees of knee extension and 90 degrees of flexion in (L) knee. Strength Lower Extremities 4/5 Sensory Vision: Functional Hearing: Functional Sensation Right Lower Extremit: Intact Sensation Left Lower Extremity: Intact Transfers Roll Left to Right (QC): 4 Sit to Lying (QC): 3 Lying to Sitting/Side of Bed(Q: 3 Sit to Stand (QC): 3 Chair/Dnu-vf-Mhhvd Xfer(QC): 3 Gait Does the Patient Walk?: Yes Mode of Locomotion: Walk Anticipated Mode of Locomotion: Walk Walk 10 feet (QC): 4 Distance: 25' Gait Assistive Device: FWW Balance Sitting Static: Normal Sitting Dynamic: Normal Standing Static: Fair Standing Dynamic: Fair Assessment/Needs Patient s/p TKA approximately 1 week ago who has been readmitted secondary to UTI. He has weakness and continued ROM limitations. He should do well with skilled therapy. Rehab Potential: Good PT Short Term Goals Short Term Goals Time Frame: Jun 05, 2019 Roll Left & Right: 5 Sit to lyin Lying to sitting on side of be: 5 Sit to stand: 5 Chair/emr-ci-nlkrp transfer: 5 Toilet transfer: 5 Car transfer: 5 Walk 10 feet: 5 Walk 50 feet with two turns: 5 PT Halfway Goals Halfway Goals PT Manager Marketing Goals Time Frame: Jun 09, 2019 Roll Left & Right (QC): 6 Sit to Lying (QC): 6 Lying-Sitting on Side/Bed(QC): 6 Sit to Stand (QC): 6 Chair/Tik-vv-Whtsf Xfer(QC): 6 Toilet Transfer (QC): 6 Car Transfer (QC): 6 Does the Patient Walk: Yes Walk 10 feet (QC): 6 Walk 50ft with 2 Turns (QC): 6 Walk 150 ft (QC): 6 PT Plan Problem List Problem List: Activity Tolerance, Functional Strength, Balance, Gait, Transfer, Bed Mobility, ROM Treatment/Plan Treatment Plan: Continue Plan of Care Treatment Plan: Bed Mobility, Functional Activity Glenn, Functional Strength, Gait, Safety, Therapeutic Exercise, Transfers Treatment Duration: Jun 09, 2019 Frequency: 11 times per week Estimated Hrs Per Day: .5 hour per day Patient and/or Family Agrees t: Yes Time/GCodes Time In: 0820 Time Out: 0850 Total Billed Treatment Time: 30 Total Billed Treatment 1, EV Epi C x 30' MILLA MCGRATH PT Jun 02, 2019 09:01
[2019-06-02] MEDS ORDERED: BETH25TA11 PO (10:48)
[2019-06-02] MEDS ORDERED: CEFD300C3 PO (10:48)
--- NOTE | 2019-06-02 10:58 | Discharge Summary ---
Discharge Summary Reconcile Patient Problems Problems Reviewed?: Yes Instructions for Patient Via [facility], Assessment/Instructions take medications as prescribed. Complete her course of antibiotics even if you're feeling better. Follow up with Dr. Khalil for urinary retention. Physician to follow Patient: Fitz Discharge Diet for Home: No Restrictions Hospital Course Date of Admission: May 31, 2019 at 13:44 Admission Diagnosis : sepsis due to urinary tract infection Family Physician/Provider: Date of Discharge: 06/02/19 Discharge Diagnosis: sepsis due to urinary tract infection, Escherichia coli bacteremia, urinary retention due to BPH Hospital Course: Ilia Barbour is an 79-year-old male who recently underwent left knee replacement who presented with sepsis due to urinary tract infection. He was found to be retaining urine and had a Anguiano catheter placed and drained 2-1/2 L of urine. A urinalysis revealed a urinary tract infection. The urine culture grew Escherichia coli. His blood cultures were also positive for Escherichia coli. He was initially treated with IV ceftriaxone and was transitioned to oral Omnicef once susceptibilities were available. Urology was consulted due to urinary retention. He was started on bethanechol. He was discharged with his Anguiano catheter in place. He will follow up with Dr. Khalil in about a week. Labs and Pending Lab Test: Laboratory Tests 06/01/19 11:17: Glucometer 155H 06/01/19 15:30: Glucometer 126H 06/01/19 20:17: Glucometer 118H 06/02/19 06:31: Glucometer 108 06/02/19 08:00: Sodium Level 141, Potassium Level 3.5L, Chloride Level 112H, Carbon Dioxide Level 20L, Anion Gap 9, Blood Urea Nitrogen 17, Creatinine 0.85, Estimat Glomerular Filtration Rate > 60, BUN/Creatinine Ratio 20, Glucose Level 118H, Calcium Level 8.2L, Magnesium Level 1.4L Microbiology 05/31/19 Urine Culture - Final, Complete Escherichia coli 05/31/19 Influenza Types A,B Antigen (MAR[facility]) - Final, Complete 05/31/19 Blood Culture - Preliminary, Resulted Escherichia coli See Comments Home Meds Active Urecholine (Bethanechol Chloride) 25 Mg Tablet 25 Mg PO ACHS 7 Days Cefdinir 300 Mg Capsule 300 Mg PO BID 11 Days Reported Senna-S Tablet (Sennosides/Docusate Sodium) 1 Each Tablet 3 Tab PO BID PRN Furosemide 20 Mg Tablet 20 Mg PO Q48H LAST FILLED #30 9-7-19 Probiotic (L.acidoph & Paracasei,B.lactis) 1 Each Capsule 1 Cap PO BID Melatonin 10 Mg Capsule 10 Mg PO HS Calcium (Calcium Carbonate) 500 Mg Tablet 500 Mg PO 1800 Synthroid (Levothyroxine Sodium) 200 Mcg Tablet 200 Mcg PO 0700 TAKES ALONG WITH 50MCG TABLET Desmopressin Acetate 0.2 Mg Tablet 0.6 Mg PO HS TAKES 3 (0.2MG) TABLETS Vitamin B12 (Cyanocobalamin (Vitamin B-12)) 2,500 Mcg Tablet 2,500 Mcg PO DAILY Solifenacin Succinate 5 Mg Tablet 5 Mg PO 1800 Aspir 81 (Aspirin) 81 Mg Tablet.dr 81 Mg PO DAILY Lyrica (Pregabalin) 150 Mg Capsule 150 Mg PO BID Flomax (Tamsulosin HCl) 0.4 Mg Cap 0.4 Mg PO BID Glucosamine Chondroitin Tab (Gluc Beckham/Chondro Beckham A/Vit C/Mn) 1 Each Tablet 1 Tab PO DAILY Ruben Multi For Men Tablet (Mv-Mn/FA/Lycopene/Lut/Hb#178) 1 Each Tablet 2 Tab PO DAILY Saw [place] (Saw [place] Fruit) 450 Mg Capsule 2 Cap PO DAILY Fish Oil 1,000 mg Capsule ([place] 3 Polyunsat Fatty Acids) 1,000 Mg Cap 1,000 Mg PO DAILY Zinc 50 Mg Tablet 50 Mg PO DAILY Atorvastatin Calcium 40 Mg Tablet 40 Mg PO DAILY Synthroid (Levothyroxine Sodium) 50 Mcg Tablet 50 Mcg PO DAILY TAKE ALONG WITH 200MCG TABLET Duloxetine HCl 60 Mg Capsule.dr 60 Mg PO HS Metformin HCl ER (Metformin HCl) 1,000 Mg Tab.er.24 1,000 Mg PO BID WITH MEALS Myrbetriq (Mirabegron) 50 Mg Tab.er.24h 50 Mg PO 1200 Pantoprazole Sodium 40 Mg Tablet.dr 40 Mg PO 1800 Potassium Chloride 8 Meq Tablet.er 8 Meq PO Q48H Consulations Urology Patient Allergies: Coded Allergies: No Known Drug Allergies (Unverified , 03/07/18) Height (Feet): 5 Height (Inches): 11.00 Weight (Pounds): 282 Weight (Ounces): 0.0 Home Health Need/Face to Face Date of Face to Face: Jun 02, 2019 Clinical Findings: Muscle weakness, Pain with ambulation, Unsteady gait I have seen Pt iljl-zj-bsaj: Yes Discharged To: Home Diagnosis/Conditions: s/p knee replacement, urinary retention Patient is Homebound due to: [place] fall risk due to instabilty, Pain w/ambulation Homebound Status Due to the above stated illness, injury or surgical procedure (medical condition or diagnosis) and associated clinical findings, the patient is homebound because of his/her inability to leave home except with aid of a supportive device and/or person AND leaving the home requires a considerable and taxing effort or is medically contraindicated. Pt req the following assistanc: Aid of another person Home Health Nursing Orders Home Health Services Order: Nursing Services, Business Continuity Coordinator-Evaluate & Treat, Physical Therapy-Evaluate & Treat Therapy Orders Therapy Orders: OT (must have SN or PT order), Physical Therapy Therapy Specific Orders: Eval assistive deivces, Gait training, Increase strength/endurance, Restore ROM Certify Stmt I certify that this patient is under my care and that I, a nurse practitioner or a physician; a construction administrative assistant working with me, had a face to face encounter that - meets the physician face to face encounter requirements with this patient as dated. Discharge Physical Exam General: Alert, Oriented X3, Cooperative, No Acute Distress HEENT: Atraumatic, PERRLA, EOMI, Mucous Memb Moist/[place] Lungs: Clear to Auscultation, Normal Air Movement Heart: Regular Rate, Normal S1, Normal S2, No Murmurs Abdomen: Normal Bowel Sounds, Soft, No Tenderness Extremities: No Edema, No Tenderness/Swelling, Other (left knee bandaged) Skin: No Rashes, No Significant Lesion Neuro: Normal Speech, Normal Tone Psych/Mental Status: Mental Status NL, Mood NL NAREN MCMAHON MD Jun 02, 2019 10:57
[2019-06-02] MEDS: MAGNESIUM 1 GM/100 ML IVPB 100 ML IV SCH ×2 (11:33→12:34)
[2019-06-02] MEDS ORDERED: KCL 20 MEQ TAB (K-DUR) PO ONE (12:00)
[2019-06-02 12:26] VITALS: BP 135/61
--- NOTE | 2019-06-02 12:50 | Occ Therapy Progress Note ---
Therapy Progress Note Pt seen at [phone], pt states he is going home with HH today. Denies need for OT services or AE/ ADL training. Pt left with call light in reach, all needs met. GREGORIO SOLIS OTR Jun 02, 2019 12:50
== END 2019-06-02 14:32 | disposition home health service (06) | DRG 872 ==
LOC: EDUNIT# 11:41 → ER 11:43 → 4TH 13:44
PROVIDERS: ADMIT Internal Medicine; ATTEND Internal Medicine
DX: A41.9 Sepsis, unspecified organism (principal); N39.0 Urinary tract infection, site not specified; N17.9 Acute kidney failure, unspecified; G47.30 Sleep apnea, unspecified; I25.10 Atherosclerotic heart disease of native coronary artery without angina pectoris; E78.00 Pure hypercholesterolemia, unspecified; I10 Essential (primary) hypertension; K21.9 Gastro-esophageal reflux disease without esophagitis; E11.22 Type 2 diabetes mellitus with diabetic chronic kidney disease; M54.9 Dorsalgia, unspecified; G89.29 Other chronic pain; N40.1 Benign prostatic hyperplasia with lower urinary tract symptoms; R33.8 Other retention of urine; M19.90 Unspecified osteoarthritis, unspecified site; Z79.84 Long term (current) use of oral hypoglycemic drugs; Z79.82 Long term (current) use of aspirin; Z90.49 Acquired absence of other specified parts of digestive tract; Z96.652 Presence of left artificial knee joint; I25.2 Old myocardial infarction; Z87.891 Personal history of nicotine dependence
CPT/HCPCS: 36415; 51702; 71045; 74176; 80048; 80053; 81000; 82962; 83605; 83690; 83735; 85007; 85025; 85027; 87040; 87077; 87088; 87186; 87804; 94640; 94760; 96374; 96375

== ENCOUNTER → 2019-06-25 | Outpatient (CLI) | payer MEDICARE, OTHER ==
[~2019-06-25] MED LIST changes: +BETH25TA11 PO; +CEFD300C3 PO; +SENN-109 PO; -TAMS0.4C98 PO; +TMSL.4C PO
[2019-06-25 15:06] LABS: BASOPHILS # (AUTO) 0.1 10^3/uL (0.0-0.1); BASOPHILS % (AUTO) 1 % (0-10); EOSINOPHILS # (AUTO) 0.3 10^3/uL (0.0-0.3); EOSINOPHILS % (AUTO) 3 % (0-10); HEMATOCRIT 34 % (40-54); HEMOGLOBIN 10.5 G/DL (13.3-17.7); LYMPHOCYTES # (AUTO) 1.2 X 10^3 (1.0-4.0); LYMPHOCYTES % (AUTO) 13 % (12-44); MEAN CORPUSCULAR HEMOGLOBIN 26 PG (25-34); MEAN CORPUSCULAR HGB CONC 31 G/DL (32-36); MEAN CORPUSCULAR VOLUME 82 FL (80-99); MEAN PLATELET VOLUME 11.3 FL (7.4-10.4); MONOCYTES # (AUTO) 0.5 X 10^3 (0.0-1.0); MONOCYTES % (AUTO) 5 % (0-12); NEUTROPHILS % (AUTO) 78 % (42-75); PLATELET COUNT 237 10^3/uL (130-400); RED CELL DISTRIBUTION WIDTH 21.2 % (10.0-14.5); WHITE BLOOD COUNT 8.9 10^3/uL (4.3-11.0)
[2019-06-25 15:07] LABS: BILIRUBIN,URINE NEGATIVE (NEGATIVE); CLARITY,URINE CLEAR; COLOR,URINE YELLOW; GLUCOSE, URINE (UA) NEGATIVE (NEGATIVE); KETONES,URINE NEGATIVE (NEGATIVE); LEUKOCYTE ESTERASE ,URINE 2+ (NEGATIVE); NITRITE,URINE NEGATIVE (NEGATIVE); PH,URINE 5.5 (5-9); PROTEIN,URINE NEGATIVE (NEGATIVE)
[2019-06-25 15:18] LABS: BACTERIA,URINE MODERATE /HPF; WBC,URINE 50-100 /HPF
[2019-06-25 15:23] LABS: ALBUMIN 3.5 GM/DL (3.2-4.5); BILIRUBIN,TOTAL 0.4 MG/DL (0.1-1.0); CALCIUM 9.5 MG/DL (8.5-10.1); CREATININE SERUM 1.45 MG/DL (0.60-1.30); POTASSIUM 3.9 MMOL/L (3.6-5.0); TOTAL PROTEIN 7.2 GM/DL (6.4-8.2)
[2019-06-25 15:46] LABS: BAND NEUTROPHILS 1 %; EOSINOPHILS % (MANUAL) 4 %; LYMPHOCYTES % (MANUAL) 12 %; MONOCYTES % (MANUAL) 5 %; NEUTROPHILS % (MANUAL) 78 %; RBC MORPH NORMAL
== END ==
LOC: LAB 14:34
PROVIDERS: ATTEND Internal Medicine
DX: R30.0 Dysuria (principal)
CPT/HCPCS: 36415; 80053; 81000; 85007; 85027; 87088

== ENCOUNTER 2019-07-05 13:15 | Outpatient (RCR) | payer MEDICARE, OTHER ==
[~2019-07-05 13:15] MED LIST changes: +ACHYD1T PO; -HYDR-3820 PO
[2019-07-10] MEDS ORDERED: POTA8CAP20 PO (11:02)
[2019-07-13] MEDS ORDERED: CEPH250C PO (13:46)
[2019-07-13] MEDS ORDERED: L.AC1CAP6 PO (13:50)
[2019-07-16] MEDS ORDERED: LEVO750T39 PO (11:16)
[2019-07-18] MEDS ORDERED: TRM50T PO (12:06)
[2019-07-18] MEDS ORDERED: CEPH-507 PO (12:06)
== END 2019-09-23 | disposition home or self-care (01) ==
PROVIDERS: ATTEND Orthopaedic Surgery
DX: Z47.1 Aftercare following joint replacement surgery (principal); Z96.652 Presence of left artificial knee joint; K21.9 Gastro-esophageal reflux disease without esophagitis; E07.9 Disorder of thyroid, unspecified; E11.9 Type 2 diabetes mellitus without complications; G62.9 Polyneuropathy, unspecified; Z98.890 Other specified postprocedural states

== ENCOUNTER 2019-07-10 05:39 | Outpatient (CLI) | payer MEDICARE, OTHER ==
[~2019-07-10] VITALS: Ht 180 cm; Wt 122.5 kg
[~2019-07-10 05:39] MED LIST changes: -ACHYD1T PO; +HYDR-3820 PO
[2019-07-10] MEDS ORDERED: POTA8CAP20 PO (11:02)
== END 2019-07-10 11:19 | disposition home or self-care (01) ==
LOC: PREOP 05:39
PROVIDERS: ATTEND Urology
DX: Z01.818 Encounter for other preprocedural examination (principal)

== ENCOUNTER 2019-07-12 17:55 | Inpatient (IN) | payer MEDICARE, OTHER ==
[~2019-07-12] VITALS: Ht 180 cm; Wt 119.0 kg
[~2019-07-12 17:55] MED LIST changes: +POTA8CAP20 PO
[2019-07-12] MEDS ORDERED: NS IV 1000 ML 1,000 ML IV SCH ×2 (18:04)
--- NOTE | 2019-07-12 18:13 | ED General ---
General Chief Complaint: Neurological Problems Stated Complaint: WEAKNESS Nursing Triage Note: TO ROOM 09 [facility]IA [facility]. COMPLAINS OF GENERALIZED WEAKNESS AND NOT FEELING WELL FOR A WHILE. STATES HE CANT QUIT PEEING. Nursing Sepsis Screen: Possible Sepsis Risk Source of Information: Patient Exam Limitations: No Limitations History of Present Illness Date Seen by Provider: Jul 12, 2019 Time Seen by Provider: 17:52 Initial Comments Patient presents to ER from home by EMS with chief complaint of for the past 2-3 weeks being weaker. He says it all started after his knee replacement in May and is had difficulty getting around and ambulating. He's felt a little short of breath had some coughing and feels warm but has not checked his temperature. He has a history of multiple 2-3 issues with urinary retention and dribbling urine TODAY. He's had multiple urinary tract infections. He has an appointment with Dr. Khalil to have a suprapubic catheter placed next week. He denies any significant pain. He has chronic swelling in his feet and usually wears compression stockings. He's had poor appetite no nausea vomiting diarrhea or constipation lately. He did get his influenza vaccine. Allergies and Home Medications Allergies Coded Allergies: Sulfa (Sulfonamide Antibiotics) (Verified Allergy, Intermediate, RASH, CHILLS, 07/10/19) Home Medications Aspirin 81 Mg Tablet.dr, 81 MG PO DAILY, (Reported) Atorvastatin Calcium 40 Mg Tablet, 40 MG PO DAILY, (Reported) Calcium Carbonate 500 Mg Tablet, 500 MG PO 1800, (Reported) Cyanocobalamin (Vitamin B-12) 2,500 Mcg Tablet, 2,500 MCG PO DAILY, (Reported) Duloxetine HCl 60 Mg Capsule.dr, 60 MG PO HS, (Reported) Furosemide 20 Mg Tablet, 20 MG PO Q48H, (Reported) LAST FILLED #30 02-10-19 Gluc Beckham/Chondro Beckham A/Vit C/Mn 1 Each Tablet, 1 TAB PO DAILY, (Reported) Levothyroxine Sodium 50 Mcg Tablet, 50 MCG PO DAILY, (Reported) TAKE ALONG WITH 200MCG TABLET Levothyroxine Sodium 200 Mcg Tablet, 200 MCG PO 0700, (Reported) TAKES ALONG WITH 50MCG TABLET Metformin HCl 1,000 Mg Tab.er.24, 1,000 MG PO BID WITH MEALS, (Reported) Mv-Mn/FA/Lycopene/Lut/Hb#178 1 Each Tablet, 2 TAB PO DAILY, (Reported) [place] 3 Polyunsat Fatty Acids 1,000 Mg Cap, 1,000 MG PO DAILY, (Reported) Pantoprazole Sodium 40 Mg Tablet.dr, 40 MG PO 1800, (Reported) Potassium Chloride 8 Meq Capsule.er, 8 MEQ PO Q48H, (Reported) Pregabalin 150 Mg Capsule, 150 MG PO BID, (Reported) Saw [place] Fruit 450 Mg Capsule, 2 CAP PO DAILY, (Reported) Sennosides/Docusate Sodium 1 Each Tablet, 3 TAB PO DAILY, (Reported) Tamsulosin HCl 0.4 Mg Cap, 0.4 MG PO BID, (Reported) Zinc 50 Mg Tablet, 50 MG PO DAILY, (Reported) Patient Home Medication List Home Medication List Reviewed: Yes Review of Systems Review of Systems Constitutional: chills; No diaphoresis, No fever; malaise, weakness EENTM: No ear discharge, No ear pain Respiratory: cough; No phlegm; short of breath; No wheezing Cardiovascular: No chest pain, No edema; Hx of Intervention; No palpitations, No syncope; vascular heart diseas Gastrointestinal: No abdominal pain, No nausea, No vomiting Genitourinary: see HPI; No dysuria; frequency, hesitancy, incontinence Musculoskeletal: No back pain, No joint pain Skin: No pruritus, No rash Psychiatric/Neurological: Denies Headache, Denies Numbness Past Rgufbpc-Febrwz-Pnohfn Hx Patient Social History Alcohol Use: Denies Use Recreational Drug Use: No Smoking Status: Former Smoker Type Used: Cigarettes Former Smoker, Quit: Feb 22, 1994 2nd Hand Smoke Exposure: No Recent Foreign Travel: No Contact w/Someone Who Travel: No Recent Infectious Disease Expo: No Recent Hopitalizations: Yes (MAY 2019-UTI) Immunizations Up To Date Date of Pneumonia Vaccine: Mar 31, 2019 Date of Influenza Vaccine: Mar 31, 2019 Seasonal Allergies Seasonal Allergies: No Past Medical History Surgeries: Yes (BACK, NECK, HERNIA, R TKR) Abdominal, Appendectomy, Gallbladder, Orthopedic Respiratory: Yes Sleep Apnea Currently Using CPAP: No Currently Using BIPAP: No Cardiac: Yes (CARDIAC STENTS) Chronic Edema/Swelling, Coronary Artery Disease, Heart Attack, Heart Murmur, High Cholesterol, Hypertension Neurological: Yes (R LEG NERVE DAMAGE) Neuropathy Reproductive Disorders: No Sexually Transmitted Disease: No HIV/AIDS: No Genitourinary: Yes (incontience) Benign Prostatic Hyperpl, Bladder Infection, Kidney Stones, UTI-Chronic Gastrointestinal: Yes Gastroesophageal Reflux, Chronic Constipation Musculoskeletal: Yes (osteoarthritis) Arthritis, Chronic Back Pain, Gout Endocrine: Yes Diabetes, Non-Insulin dep HEENT: Yes (READING GLASSES) Cataract Loss of Vision: Denies Hearing Impairment: Denies Cancer: No Psychosocial: No Integumentary: No Blood Disorders: No Adverse Reaction/Blood Tranf: No Family Medical History Alcoholism 19 FATHER Completed stroke 19 MOTHER Diabetes mellitus 19 MOTHER G8 SISTER FH: pancreatic cancer G8 BROTHER Physical Exam-Suspected Sepsis Physical Exam Vital Signs Vital Signs - First Documented 07/12/19 17:58 Temp 39.3 Pulse 112 Resp 18 B/P (MAP) 143/77 (99) Pulse Ox 94 Capillary Refill : Less Than 3 Seconds Blood Pressure Mean: 99 Height, Weight, BMI Height: 5'11.00" Weight: 282lbs. 0.0oz. 127.135324ky; 37.00 BMI Method:Stated General Appearance: Chronically ill, Mild Distress Eyes: Bilateral Eye Normal Inspection, Bilateral Eye PERRL, Bilateral Eye EOMI HEENT: PERRL/EOMI, TMs Normal, Normal ENT Inspection, Pharynx Normal; No Moist Mucous Membranes Neck: Full Range of Motion, Normal Inspection, Non Tender, Supple Respiratory: Lungs Clear, No Accessory Muscle Use, No Respiratory Distress, Decreased Breath Sounds Cardiovascular: Regular Rate, Rhythm, No Edema, Normal Peripheral Pulses Gastrointestinal: Normal Bowel Sounds, Non Tender, Soft Extremity: Normal Capillary Refill, Normal Inspection, No Pedal Edema Neurologic/Psychiatric: Alert, Oriented x3, No Motor/Sensory Deficits, Normal Mood/Affect, mercantile agent II-XII Norm as Tested Skin: normal color, warm/dry Focused Exam Lactate Level 07/12/19 18:05: Lactic Acid Level 1.01 Lactic Acid Level Laboratory Tests Test 07/12/19 18:05 Lactic Acid Level 1.01 MMOL/L (0.50-2.00) Progress/Results/Core Measures Suspected Sepsis Recent Fever Within 48 Hours: Yes Infection Criteria Present: Suspected New Infection New/Unexplained Altered Menta: No Sepsis Screen: Possible Sepsis Risk SIRS Temperature: Pulse: 112 Respiratory Rate: 18 Laboratory Tests 07/12/19 18:05: White Blood Count 11.6H Blood Pressure 143 /77 Mean: 99 07/12/19 18:05: Lactic Acid Level 1.01 Laboratory Tests 07/12/19 18:05: Creatinine 1.96H, INR Comment 1.1, Platelet Count 211, Total Bilirubin 0.6 Results/Orders Lab Results Laboratory Tests Test 07/12/19 18:02 07/12/19 18:05 07/12/19 18:25 07/12/19 18:36 Range/Units Glucometer 201 H 70-110 MG/DL White Blood Count 11.6 H 4.3-11.0 10^3/uL Red Blood Count 4.09 L 4.35-5.85 10^6/uL Hemoglobin 10.7 L 13.3-17.7 G/DL Hematocrit 33 L 40-54 % Mean Corpuscular Volume 81 80-99 FL Mean Corpuscular Hemoglobin 26 25-34 PG Mean Corpuscular Hemoglobin Concent 32 32-36 G/DL Red Cell Distribution Width 20.3 H 10.0-14.5 % Platelet Count 211 130-400 10^3/uL Mean Platelet Volume 11.3 H 7.4-10.4 FL Neutrophils (%) (Auto) 84 H 42-75 % Lymphocytes (%) (Auto) 5 L 12-44 % Monocytes (%) (Auto) 11 0-12 % Eosinophils (%) (Auto) 0 0-10 % Basophils (%) (Auto) 0 0-10 % Neutrophils # (Auto) 9.7 H 1.8-7.8 X 10^3 Lymphocytes # (Auto) 0.6 L 1.0-4.0 X 10^3 Monocytes # (Auto) 1.3 H 0.0-1.0 X 10^3 Eosinophils # (Auto) 0.0 0.0-0.3 10^3/uL Basophils # (Auto) 0.0 0.0-0.1 10^3/uL Neutrophils % (Manual) 74 % Lymphocytes % (Manual) 5 % Monocytes % (Manual) 7 % Eosinophils % (Manual) 0 % Basophils % (Manual) 0 % Band Neutrophils 14 % Anisocytosis MODERATE Prothrombin Time 15.1 H 12.2-14.7 SEC INR Comment 1.1 0.8-1.4 Activated Partial Thromboplast Time 50 H 24-35 SEC Sodium Level 133 L 135-145 MMOL/L Potassium Level 3.9 3.6-5.0 MMOL/L Chloride Level 103 98-107 MMOL/L Carbon Dioxide Level 19 L 21-32 MMOL/L Anion Gap 11 5-14 MMOL/L Blood Urea Nitrogen 38 H 7-18 MG/DL Creatinine 1.96 H 0.60-1.30 MG/DL Estimat Glomerular Filtration Rate 33 BUN/Creatinine Ratio 19 Glucose Level 192 H 70-105 MG/DL Lactic Acid Level 1.01 0.50-2.00 MMOL/L Calcium Level 9.4 8.5-10.1 MG/DL Corrected Calcium 10.0 8.5-10.1 MG/DL Magnesium Level 1.5 L 1.6-2.4 MG/DL Total Bilirubin 0.6 0.1-1.0 MG/DL Aspartate Amino Transf (AST/SGOT) 35 H 5-34 U/L Alanine Aminotransferase (ALT/SGPT) 35 0-55 U/L Alkaline Phosphatase 99 40-136 U/L B-Type Natriuretic Peptide 65.8 <100.0 PG/ML Total Protein 7.6 6.4-8.2 GM/DL Albumin 3.3 3.2-4.5 GM/DL Blood Gas Puncture Site RT RADIAL Blood Gas Patient Temperature 39.3 Arterial Blood pH 7.37 7.37-7.43 Arterial Blood Partial Pressure CO2 34 L 35-45 MMHG Arterial Blood Partial Pressure O2 71 L 79-93 MMHG Arterial Blood HCO3 19 L 23-27 MMOL/L Arterial Blood Total CO2 19.8 L 21.0-31.0 MMOL/L Arterial Blood Oxygen Saturation 89 L 94-100 % Arterial Blood Base Excess -5.0 L -2.5-2.5 MMOL/L Kamlesh Test POS Blood Gas Ventilator Setting NO Blood Gas Inspired Oxygen RA Urine Color YELLOW Urine Clarity CLEAR Urine pH 6.0 5-9 Urine Specific [place] 1.010 L 1.016-1.022 Urine Protein 1+ H NEGATIVE Urine Glucose (UA) NEGATIVE NEGATIVE Urine Ketones NEGATIVE NEGATIVE Urine Nitrite NEGATIVE NEGATIVE Urine Bilirubin NEGATIVE NEGATIVE Urine Urobilinogen 0.2 < = 1.0 MG/DL Urine Leukocyte Esterase 3+ H NEGATIVE Urine RBC (Auto) 2+ H NEGATIVE Urine RBC 0-2 /HPF Urine WBC 25-50 H /HPF Urine Squamous Epithelial Cells NONE /HPF Urine Crystals NONE /LPF Urine Amorphous Sediment MOD [place] URATES H /LPF Urine Bacteria LARGE H /HPF Urine Casts NONE /LPF Urine Mucus NEGATIVE /LPF Urine Culture Indicated CULTURE PENDING Micro Results Microbiology 07/12/19 Influenza Types A,B Antigen (MARINA) - Final, Complete My Orders Orders - RISA BEST Cbc With Automated Diff (07/12/19 18:04) Comprehensive Metabolic Panel (07/12/19 18:04) Blood Culture (07/12/19 18:04) Sputum Culture (07/12/19 18:04) Urinalysis (07/12/19 18:04) Urine Culture (07/12/19 18:04) Protime With Inr (07/12/19 18:04) Partial Thromboplastin Time (07/12/19 18:04) Chest 1 View, Ap/Pa Only (07/12/19 18:04) Acetaminophen Tablet (Tylenol Tablet) (07/12/19 18:15) Ed Iv/Invasive Line Start (07/12/19 18:04) Ed Iv/Invasive Line Start (07/12/19 18:04) Vital Signs Adult Sepsis Patie Q15M (07/12/19 18:04) O2 (07/12/19 18:04) Remove Rings In Anticipation O (07/12/19 18:04) Lactic Acid Analyzer (07/12/19 18:04) Influenza A And B Antigens (07/12/19 18:04) Ns Iv 1000 Ml (Sodium Chloride 0.9%) (07/12/19 18:04) Cefepime Injection (Maxipime Injection) (07/12/19 18:15) Ed Iv/Invasive Line Start (07/12/19 18:04) Ns Iv 1000 Ml (Sodium Chloride 0.9%) (07/12/19 18:04) BNP (07/12/19 18:04) Catheter(Urinary) Insert & Ass 03,15 (07/12/19 18:13) Levofloxacin 750 Mg/150 Ml Iv (Levaquin (07/12/19 18:30) Arterial Blood Gas (07/12/19 18:26) Manual Differential (07/12/19 18:05) Magnesium (07/12/19 18:48) Medications Given in ED Current Medications Medications Dose Ordered Sig/Connor Route Start Time Stop Time Status Last Admin Dose Admin Acetaminophen 1,000 mg ONCE PRN PO 07/12/19 18:15 07/12/19 18:18 DC 07/12/19 18:18 1,000 MG Levofloxacin/ Dextrose 150 ml @ 100 mls/hr ONCE ONCE IV 07/12/19 18:30 07/12/19 19:59 07/12/19 19:05 100 MLS/HR Vital Signs/I&O 07/12/19 17:58 Temp 39.3 Pulse 112 Resp 18 B/P (MAP) 143/77 (99) Pulse Ox 94 Capillary Refill : Less Than 3 Seconds Blood Pressure Mean: 99 Point of Care Testing Finger Stick Blood Glucose: 201 Progress Note #1: Time: 18:32 Progress Note Septic workup. We'll use an ideal body weight of 205 pounds adjusted. We'll give him 20 mL/kg which would be a little less than 2 L. We've selected Levaquin after discussing the case with Dr. Khalil, urology. He is familiar with. This would give good coverage for gram positives as well as gram negatives. He has a history of being susceptible to fluoroquinolones and having Escherichia coli as well as a couple P mirabilis. No history of ESBL. Levaquin would also be a good place to start if he had a respiratory infection considering his cough and shortness of breath. Influenza is also high on the differential as well as UTI from his chronic retention. We'll put a Anguiano catheter and. We have called for a bed on the floor. Progress Note #2: Time: 19:37 Progress Note Patchy bilateral infiltrates versus atelectasis. In addition to Levaquin plan to give him cefepime and vancomycin. Gram of magnesium. Diagnostic Imaging Diagonstic Imaging: Xray Plain Films/CT/US/NM/MRI: chest (1v) Comments [facility] [place] [place] NAME: DIANDRA VO [facility] REC#: [id number] PT STATUS: REG ER : 1940 PHYSICIAN: RISA BEST MD ADMIT DATE: 07/12/19/ER Signed Date of Exam:07/12/19 CHEST 1 VIEW, AP/PA ONLY EXAMINATION: Chest 1 view HISTORY: Weakness. COMPARISON: 06/01/2019. FINDINGS: Lung volumes are low. Patchy opacities are seen in the lung bases, right greater than left. No large pleural effusion or pneumothorax. The cardiac silhouette is enlarged. No acute osseous abnormalities. IMPRESSION: 1. Patchy bibasilar opacities, right greater than left. This may represent atelectasis or infection. 2. Cardiomegaly. Dictated by: Dictated on workstation # [id number] Dict: 07/12/191852 Trans: 07/12/191852 PC1 [id number] Interpreted by: YAEL CEBALLOS DO Electronically signed by: YAEL CEBALLOS DO 07/12/191852 Reviewed: Reviewed by Me Departure Communication (Admissions) Time/Spoke to Admitting Phy: 19:50 Discussed the case, lab, imaging with Dr. Juárez and she would like the patient and stepped down because of his complexity. She would prefer cefepime and vancomycin coverage for the pneumonia. She would like consultation with urology. She would like SCDs, Lovenox, Tylenol and Zofran when necessary. Time/Spoke to Consulting Phy: 18:[address] Khalil and he agrees to consult on the patient. Impression Primary Impression: UTI (urinary tract infection) Qualified Codes: N30.00 - Acute cystitis without hematuria Additional Impressions: Urinary retention due to benign prostatic hyperplasia Pneumonia Qualified Codes: J18.1 - Lobar pneumonia, unspecified organism Sepsis Qualified Codes: A41.9 - Sepsis, unspecified organism; R65.20 - Severe sepsis without septic shock; N17.9 - Acute kidney failure, unspecified CHRISTINA (acute kidney injury) Acute respiratory failure with hypoxia Disposition: ADMITTED INPATIENT Condition: Stable Admissions Decision to Admit Reason: Admit from ER (General) Decision to Admit/Date: Jul 12, 2019 Time/Decision to Admit Time: 18:30 Departure-Patient Inst. Referrals: BRIDGETT GUEVARA MD (PCP/Family) Primary Care Physician RISA BEST Jul 12, 2019 18:12
[2019-07-12] MEDS ORDERED: ACETAMINOPHEN 500 MG TAB (TYLENOL) PO PRN ×2 (18:15→21:45)
[2019-07-12] MEDS ORDERED: CEFEPIME INJECTION 1,000 MG in WATER (STERILE) FOR INJECTION 10 ML IV ONE ×2 (18:15→20:00)
[2019-07-12 18:18] LABS: BASOPHILS % (AUTO) 0 % (0-10); EOSINOPHILS % (AUTO) 0 % (0-10); HEMATOCRIT 33 % (40-54); HEMOGLOBIN 10.7 G/DL (13.3-17.7); LYMPHOCYTES # (AUTO) 0.6 X 10^3 (1.0-4.0); LYMPHOCYTES % (AUTO) 5 % (12-44); MEAN CORPUSCULAR HEMOGLOBIN 26 PG (25-34); MEAN CORPUSCULAR HGB CONC 32 G/DL (32-36); MEAN CORPUSCULAR VOLUME 81 FL (80-99); MEAN PLATELET VOLUME 11.3 FL (7.4-10.4); MONOCYTES # (AUTO) 1.3 X 10^3 (0.0-1.0); MONOCYTES % (AUTO) 11 % (0-12); NEUTROPHILS # (AUTO) 9.7 X 10^3 (1.8-7.8); NEUTROPHILS % (AUTO) 84 % (42-75); PLATELET COUNT 211 10^3/uL (130-400); RED CELL DISTRIBUTION WIDTH 20.3 % (10.0-14.5); WHITE BLOOD COUNT 11.6 10^3/uL (4.3-11.0)
[2019-07-12] MEDS ORDERED: LEVOFLOXACIN 750 MG/150 ML IV 150 ML IV ONE (18:30)
[2019-07-12 18:31] LABS: INR 1.1 (0.8-1.4); PROTHROMBIN TIME PATIENT 15.1 SEC (12.2-14.7)
[2019-07-12 18:36] LABS: ABG OXYGEN SATURATION 89 % (94-100); ABG PCO2 34 MMHG (35-45); ABG PH 7.37 (7.37-7.43); ABG PO2 71 MMHG (79-93); ABG TCO2 19.8 MMOL/L (21.0-31.0)
[2019-07-12 18:39] LABS: ALLENS TEST POS; INSPIRED O2 RA; PATIENT TEMP 39.3; VENTILATOR NO
[2019-07-12 18:42] LABS: ALBUMIN 3.3 GM/DL (3.2-4.5); BILIRUBIN,TOTAL 0.6 MG/DL (0.1-1.0); CALCIUM 9.4 MG/DL (8.5-10.1); CREATININE SERUM 1.96 MG/DL (0.60-1.30); POTASSIUM 3.9 MMOL/L (3.6-5.0); TOTAL PROTEIN 7.6 GM/DL (6.4-8.2)
[2019-07-12 18:50] LABS: BILIRUBIN,URINE NEGATIVE (NEGATIVE); CLARITY,URINE CLEAR; COLOR,URINE YELLOW; GLUCOSE, URINE (UA) NEGATIVE (NEGATIVE); KETONES,URINE NEGATIVE (NEGATIVE); LEUKOCYTE ESTERASE ,URINE 3+ (NEGATIVE); NITRITE,URINE NEGATIVE (NEGATIVE); PROTEIN,URINE 1+ (NEGATIVE)
--- NOTE | 2019-07-12 18:55 | Diagnostic Imaging Report ---
EXAMINATION: Chest 1 view HISTORY: Weakness. COMPARISON: 06/01/2019. FINDINGS: Lung volumes are low. Patchy opacities are seen in the lung bases, right greater than left. No large pleural effusion or pneumothorax. The cardiac silhouette is enlarged. No acute osseous abnormalities. IMPRESSION: 1. Patchy bibasilar opacities, right greater than left. This may represent atelectasis or infection. 2. Cardiomegaly. Dictated by: Dictated on workstation # [id number]
[2019-07-12 18:56] LABS: BAND NEUTROPHILS 14 %; BASOPHILS % (MANUAL) 0 %; EOSINOPHILS % (MANUAL) 0 %; LYMPHOCYTES % (MANUAL) 5 %; MONOCYTES % (MANUAL) 7 %; NEUTROPHILS % (MANUAL) 74 %
[2019-07-12 18:57] LABS: ANISOCYTOSIS MODERATE
[2019-07-12 18:59] LABS: AMORPHOUS SEDIMENT,UR MOD AMOR URATES /LPF; BACTERIA,URINE LARGE /HPF; RBC,URINE 0-2 /HPF; WBC,URINE 25-50 /HPF
[2019-07-12] MEDS ORDERED: VANCOMYCIN INJECTION 1,000 MG in NS (IVPB) 250 ML IV STA (19:57)
[2019-07-12] MEDS ORDERED: MAGNESIUM 1 GM/100 ML IVPB 100 ML IV ONE (20:00)
[2019-07-12] MEDS ORDERED: WATER (STERILE) FOR INJECTION 10 ML ONE (20:17)
[2019-07-12] MEDS ORDERED: NS (IVPB) 250 ML ONE (20:17)
[2019-07-12] MEDS ORDERED: CEFEPIME 1 GM (MAXIPIME) VIAL ONE (20:17)
[2019-07-12] MEDS ORDERED: MAGNESIUM OXIDE (MAG-OX)400 MG TAB PO ONE (20:30)
[2019-07-12] MEDS: VANCOMYCIN 1000 MG/VIAL ONE ×2 (20:37→20:40)
[2019-07-12 21:10] VITALS: BP 104/64
[2019-07-12] MEDS ORDERED: fentaNYL INJECTION 100 MCG/2 ML AMP IV PRN (21:45)
[2019-07-12] MEDS ORDERED: EPINEPHrine 1 MG INJECTION 2 MG in NS (IVPB) 250 ML IV SCH (21:45)
[2019-07-12] MEDS: NS W/KCL 20 MEQ/L 1,000 ML IV SCH (21:53)
[2019-07-12] MEDS ORDERED: VANCOMYCIN 1 GM/NS 250 ML IVPB IV SCH ×2 (22:00)
[2019-07-12] MEDS: VASOPRESSIN INJECTION 20 UNIT in NORMAL SALINE 100 ML IV SCH (22:00)
[2019-07-12] MEDS: NOREPINEPHRINE 4 MG/250 ML 250 ML IV SCH (22:00)
[2019-07-12] MEDS ORDERED: MELATONIN 3 MG TABLET PO PRN (22:49)
[2019-07-13] VITALS (8 sets, daily range): BP systolic 100–143; BP diastolic 61–77
[2019-07-13] MEDS: CEFEPIME INJECTION 1,000 MG in WATER (STERILE) FOR INJECTION 10 ML IV SCH ×2 (01:10→08:50)
[2019-07-13] MEDS: VASOPRESSIN INJECTION 20 UNIT in NORMAL SALINE 100 ML IV SCH (04:14)
[2019-07-13] MEDS: NOREPINEPHRINE 4 MG/250 ML 250 ML IV SCH (04:14)
[2019-07-13] MEDS: NS W/KCL 20 MEQ/L 1,000 ML IV SCH ×4 (04:14→23:53)
[2019-07-13 04:23] LABS: BASOPHILS % (AUTO) 0 % (0-10); EOSINOPHILS % (AUTO) 0 % (0-10); HEMATOCRIT 29 % (40-54); HEMOGLOBIN 9.3 G/DL (13.3-17.7); LYMPHOCYTES # (AUTO) 0.7 X 10^3 (1.0-4.0); LYMPHOCYTES % (AUTO) 6 % (12-44); MEAN CORPUSCULAR HEMOGLOBIN 27 PG (25-34); MEAN CORPUSCULAR HGB CONC 32 G/DL (32-36); MEAN CORPUSCULAR VOLUME 83 FL (80-99); MEAN PLATELET VOLUME 11.4 FL (7.4-10.4); MONOCYTES # (AUTO) 1.2 X 10^3 (0.0-1.0); MONOCYTES % (AUTO) 11 % (0-12); NEUTROPHILS # (AUTO) 9.2 X 10^3 (1.8-7.8); NEUTROPHILS % (AUTO) 83 % (42-75); PLATELET COUNT 172 10^3/uL (130-400); RED CELL DISTRIBUTION WIDTH 20.1 % (10.0-14.5); WHITE BLOOD COUNT 11.1 10^3/uL (4.3-11.0)
[2019-07-13 04:42] LABS: ALBUMIN 2.8 GM/DL (3.2-4.5); BILIRUBIN,TOTAL 0.5 MG/DL (0.1-1.0); CALCIUM 8.6 MG/DL (8.5-10.1); CREATININE SERUM 1.42 MG/DL (0.60-1.30); POTASSIUM 3.6 MMOL/L (3.6-5.0); TOTAL PROTEIN 6.3 GM/DL (6.4-8.2)
--- NOTE | 2019-07-13 05:21 | Pulmonary Consultation ---
History of Present Illness History of Present Illness Date Seen by Provider: Jul 13, 2019 Time Seen by Provider: 05:17 Date of Admission Allergies and Home Medications Allergies Coded Allergies: Sulfa (Sulfonamide Antibiotics) (Verified Allergy, Intermediate, RASH, CHILLS, 07/10/19) Home Medications Aspirin 81 Mg Tablet.dr, 81 MG PO DAILY, (Reported) Atorvastatin Calcium 40 Mg Tablet, 40 MG PO DAILY, (Reported) Calcium Carbonate 500 Mg Tablet, 500 MG PO 1800, (Reported) Cyanocobalamin (Vitamin B-12) 2,500 Mcg Tablet, 2,500 MCG PO DAILY, (Reported) Duloxetine HCl 60 Mg Capsule.dr, 60 MG PO HS, (Reported) Furosemide 20 Mg Tablet, 20 MG PO Q48H, (Reported) LAST FILLED #30 02-10-19 Gluc [place]ham/Chondro Beckham A/Vit C/Mn 1 Each Tablet, 1 TAB PO DAILY, (Reported) Levothyroxine Sodium 50 Mcg Tablet, 50 MCG PO DAILY, (Reported) TAKE ALONG WITH 200MCG TABLET Levothyroxine Sodium 200 Mcg Tablet, 200 MCG PO 0700, (Reported) TAKES ALONG WITH 50MCG TABLET Metformin HCl 1,000 Mg Tab.er.24, 1,000 MG PO BID WITH MEALS, (Reported) Mv-Mn/FA/Lycopene/Lut/Hb#178 1 Each Tablet, 2 TAB PO DAILY, (Reported) [place] 3 Polyunsat Fatty Acids 1,000 Mg Cap, 1,000 MG PO DAILY, (Reported) Pantoprazole Sodium 40 Mg Tablet.dr, 40 MG PO 1800, (Reported) Potassium Chloride 8 Meq Capsule.er, 8 MEQ PO Q48H, (Reported) Pregabalin 150 Mg Capsule, 150 MG PO BID, (Reported) Saw [place] Fruit 450 Mg Capsule, 2 CAP PO DAILY, (Reported) Sennosides/Docusate Sodium 1 Each Tablet, 3 TAB PO DAILY, (Reported) Tamsulosin HCl 0.4 Mg Cap, 0.4 MG PO BID, (Reported) Zinc 50 Mg Tablet, 50 MG PO DAILY, (Reported) Past Diuyror-Gudcvd-Lmxpaa Hx Patient Social History Alcohol Use: Denies Use Recreational Drug Use: No Smoking Status: Former Smoker Type Used: Cigarettes Former Smoker, Quit: Feb 22, 1994 2nd Hand Smoke Exposure: No Recent Foreign Travel: No Contact w/Someone Who Travel: No Recent Infectious Disease Expo: No Recent Hopitalizations: Yes (MAY 2019-UTI) Immunizations Up To Date Date of Pneumonia Vaccine: Mar 31, 2019 Date of Influenza Vaccine: Mar 31, 2019 Seasonal Allergies Seasonal Allergies: No Past Medical History Surgeries: Yes (BACK, NECK, HERNIA, R TKR) Abdominal, Appendectomy, Gallbladder, Orthopedic Respiratory: Yes Sleep Apnea Currently Using CPAP: No Currently Using BIPAP: No Cardiac: Yes (CARDIAC STENTS) Chronic Edema/Swelling, Coronary Artery Disease, Heart Attack, Heart Murmur, High Cholesterol, Hypertension Neurological: Yes (R LEG NERVE DAMAGE) Neuropathy Reproductive Disorders: No Sexually Transmitted Disease: No HIV/AIDS: No Genitourinary: Yes (incontience) Benign Prostatic Hyperpl, Bladder Infection, Kidney Stones, UTI-Chronic Gastrointestinal: Yes Gastroesophageal Reflux, Chronic Constipation Musculoskeletal: Yes (osteoarthritis) Arthritis, Chronic Back Pain, Gout Endocrine: Yes Diabetes, Non-Insulin dep HEENT: Yes (READING GLASSES) Cataract Loss of Vision: Denies Hearing Impairment: Denies Cancer: No Psychosocial: No Integumentary: No Blood Disorders: No Adverse Reaction/Blood Tranf: No Family Medical History Alcoholism 19 FATHER Completed stroke 19 MOTHER Diabetes mellitus 19 MOTHER G8 SISTER FH: pancreatic cancer G8 BROTHER Sepsis Event Evaluation Height, Weight, BMI Height: 5'11.00" Weight: 282lbs. 0.0oz. 127.776613lx; 170.23 BMI Method:Stated Exam Exam Vital Signs Date Time Temp Pulse Resp B/P (MAP) Pulse Ox O2 Delivery O2 Flow Rate FiO2 07/13/19 03:22 95 Nasal Cannula 2.00 07/13/19 03:22 36.5 94 18 122/66 (84) 96 Nasal Cannula 2.00 07/13/19 00:00 36.8 88 16 100/64 (76) 94 Nasal Cannula 2.00 07/13/19 00:00 95 Nasal Cannula 2.00 07/12/19 21:37 95 Nasal Cannula 2.00 07/12/19 21:10 37.3 90 20 104/64 (77) 94 Nasal Cannula 2.00 07/12/19 20:55 39.3 90 21 107/59 (99) 93 Nasal Cannula 2.00 07/12/19 17:58 39.3 112 18 143/77 (99) 94 I & O 07/13/19 07:00 Intake Total 3420 ml Output Total 1850 ml Balance 1570 ml Height & Weight Height: 5'11.00" Weight: 282lbs. 0.0oz. 127.832730yf; 170.23 BMI Method:Stated General Appearance: Chronically ill, Mild Distress HEENT: PERRL/EOMI, TMs Normal, Normal ENT Inspection, Pharynx Normal; No Moist Mucous Membranes Neck: Full Range of Motion, Normal Inspection, Non Tender, Supple Respiratory: Lungs Clear, No Accessory Muscle Use, No Respiratory Distress, Decreased Breath Sounds Cardiovascular: Regular Rate, Rhythm, No Edema, Normal Peripheral Pulses Capillary Refill: Less Than 3 Seconds Extremity: Normal Capillary Refill, Normal Inspection, No Pedal Edema Neurologic/Psychiatric: Alert, Oriented x3, No Motor/Sensory Deficits, Normal Mood/Affect, admissions nurse II-XII Norm as Tested Results Lab Laboratory Tests 07/12/19 18:05 07/13/19 04:05 Assessment/Plan Assessment/Plan UTI with sepsis -Continue Vanco and Cefepime -IVF Urinary retention with BPH -Urology consulted -Plan was for suprapubic catheter next week Hypokalemia -Replace -Check Mg and Phos Nonanion gapped metabolic acidosis - secondary to RTA -Monitor -2 amps of bicarb Acute renal failure -IVF and monitor Anemia - monitor -Check occult stool ABENA CABA DO Jul 13, 2019 05:21
[2019-07-13] MEDS ORDERED: SODIUM BICARB 8.4% 50 MEQ/50 ML VIAL IV ONE (05:30)
[2019-07-13] MEDS: inSUlin ASPART (NovoLOG) 1 UNIT/0.01 ML (CHARGE PER UNIT) SC SCH ×4 (05:30→21:08)
[2019-07-13] MEDS: POTASSIUM CL 10MEQ/50ML IVPB 50 ML IV SCH ×2 (05:31→08:28)
[2019-07-13 05:34] LABS: MAGNESIUM 1.5 MG/DL (1.6-2.4); PHOSPHORUS 3.9 MG/DL (2.3-4.7)
--- NOTE | 2019-07-13 07:58 | Progress Note - Urology ---
Progress Note-Urology Progress Notes/Assess & Plan Progress/Assessment & Plan LOOKING AND FEELING BETTER. URINE CLEAR. CONTINUE SAME AND LEAVE RIVERS TILL OR TUESDAY Final Diagnosis URINE RETENTION WITH UROSEPSIS FANG MCMILLAN MD Jul 13, 2019 07:58
[2019-07-13] MEDS ORDERED: RT-ALBUTEROL/IPRATROPIUM 3 ML (DUONEB) VIAL INH PRN (08:00)
[2019-07-13] MEDS ORDERED: VANCOMYCIN INJECTION 1,500 MG in NS IV 500 ML 500 ML IV SCH (08:00)
--- NOTE | 2019-07-13 08:02 | Diagnostic Imaging Report ---
EXAM: CHEST 1 VIEW, AP/PA ONLY INDICATION: Pneumonia. COMPARISON: 07/12/2019. FINDINGS: Normal heart size and central pulmonary vascularity. No focal pulmonary opacity, pleural effusion or pneumothorax. No acute osseous findings. No significant change. IMPRESSION: No acute cardiopulmonary findings. The previously seen bibasilar atelectasis or infiltrate is resolved. Dictated by: Dictated on workstation # [id number]
[2019-07-13] MEDS ORDERED: VASOPRESSIN INJECTION 20 UNIT in NORMAL SALINE 100 ML IV SCH (08:05)
[2019-07-13] MEDS ORDERED: NOREPINEPHRINE 4 MG/250 ML 250 ML IV SCH (08:05)
[2019-07-13] MEDS ORDERED: EPINEPHrine 1 MG INJECTION 2 MG in NS (IVPB) 250 ML IV SCH (08:15)
[2019-07-13] MEDS: ENOXAPARIN 40 MG/0.4 ML (LOVENOX) SYR SC SCH ×2 (08:51→21:08)
[2019-07-13] MEDS: LACTOBACILLUS ACIDOPHILUS (PROBIOTIC) CAPSULE PO SCH ×2 (08:51→17:15)
[2019-07-13] MEDS ORDERED: KCL 20 MEQ TAB (K-DUR) PO NR (09:30)
--- NOTE | 2019-07-13 10:15 | CONSULTATION REPORT ---
DATE OF SERVICE: 07/12/2019 ATTENDING PHYSICIAN: Dr. Juárez. SUMMARY: An 79-year-old white man known to me for long time with neurogenic bladder retention, BPH, with failed medical treatment and continues to carry large residuals. He consented and scheduled for a suprapubic cystostomy tube placement on Tuesday; however, his daughter called the office stating that he was getting weak and sick and was concerned about sepsis. He presented to the emergency room, was worked up, started on IV antibiotic and IV fluid. IMPRESSION: Neurogenic bladder with retention, benign prostatic hyperplasia and urosepsis. PLAN: Agree with management and see how he does over the next 2 days or so and probably proceed with the surgery on Tuesday. Job ID: [id number] DocumentID: [id number] Dictated Date: 07/13/2019 07:59:37 Svp Date: 07/13/2019 10:14:23 Dictated By: FANG MCMILLAN MD
--- NOTE | 2019-07-13 11:00 | History & Physical-Hospitalist ---
History of Present Illness HPI/Chief Complaint Ilia Barbour is an 79-year-old male well-known to me from previous admissions who presented with weakness. He has had issues with urinary retention and discharged with a Anguiano catheter in place after his last admission. At that time he had a urinary tract infection with bacteremia. On this admission, he was found to have a urinary tract infection again. He reports having fevers. He denies any chest pain or shortness of breath. He denies any nausea, vomiting, or abdominal pain. He denies any diarrhea. He denies any dysuria. He denies any rash. Source: patient Exam Limitations: no limitations Date Seen 07/13/19 Time Seen by a Provider: 09:30 Attending Physician Aylin Juárez DO PCP Mirza Bach MD Referring Physician Date of Admission Jul 12, 2019 at 19:50 Home Medications & Allergies Home Medications Reviewed patient Home Medication Reconciliation performed by pharmacy medication reconciliations dialysis biomed technician and/or nursing. Patients Allergies have been reviewed. Allergies Allergies Coded Allergies Sulfa (Sulfonamide Antibiotics) (Verified Allergy, Intermediate, RASH, CHILLS, 07/10/19) Past Ajtmwio-Fgotvr-Qmyodp Hx Past Med/Social Hx: Reviewed Nursing Past Med/Soc Hx Patient Social History Alcohol Use: Denies Use Recreational Drug Use: No Smoking Status: Former Smoker Former Smoker, Quit: Feb 22, 1994 Type Used: Cigarettes 2nd Hand Smoke Exposure: No Recent Foreign Travel: No Contact w/other who traveled: No Recent Hopitalizations: Yes (MAY 2019-[facility]) Recent Infectious Disease Expo: No Immunizations Up To Date Date of Pneumonia Vaccine: Mar 31, 2019 Date of Influenza Vaccine: Mar 31, 2019 Seasonal Allergies Seasonal Allergies: No Past Medical History Surgeries: Abdominal, Appendectomy, Gallbladder, Orthopedic Respiratory: Sleep Apnea Currently Using CPAP: No Currently Using BIPAP: No Cardiac: Chronic Edema/Swelling, Coronary Artery Disease, Heart Attack, Heart Murmur, High Cholesterol, Hypertension Aortic stenosis as I recall not critical or severe Neurological: Neuropathy Reproductive: No Sexually Transmitted Disease: No HIV/AIDS: No Genitourinary: Benign Prostatic Hyperpl, Bladder Infection, Kidney Stones, UTI- Chronic Gastrointestinal: Gastroesophageal Reflux, Chronic Constipation Musculoskeletal: Arthritis, Chronic Back Pain, Gout Endocrine: Diabetes, Non-Insulin dep HEENT: Cataract Loss of Vision: Denies Hearing Impairment: Denies History of Blood Disorders: No Adverse Reaction to Blood [place]: No Family History Alcoholism 19 FATHER Completed stroke 19 MOTHER Diabetes mellitus 19 MOTHER G8 SISTER FH: pancreatic cancer G8 BROTHER Review of Systems Constitutional: fever, weakness EENTM: no symptoms reported Respiratory: no symptoms reported Cardiovascular: no symptoms reported Gastrointestinal: no symptoms reported Genitourinary: no symptoms reported Musculoskeletal: no symptoms reported Skin: no symptoms reported Psychiatric/Neurological: No Symptoms Reported Physical Exam Physical Exam Vital Signs Vital Signs - First Documented 07/12/19 07/12/19 17:58 20:55 Temp 39.3 Pulse 112 Resp 18 B/P (MAP) 143/77 (99) Pulse Ox 94 O2 Delivery Nasal Cannula O2 Flow Rate 2.00 Capillary Refill : Less Than 3 Seconds Height, Weight, BMI Height: 5'11.00" Weight: 282lbs. 0.0oz. 127.370890lm; 170.23 BMI Method:Stated General Appearance: No Apparent Distress, WD/WN HEENT: PERRL/EOMI, Pharynx Normal Neck: Normal Inspection, Supple Respiratory: Lungs Clear, Normal Breath Sounds, No Respiratory Distress Cardiovascular: Systolic Murmur, Irregularly Irregular Gastrointestinal: Normal Bowel Sounds, Non Tender, Soft Extremity: Non Tender, Pedal Edema, Other (venous stasis dermatitis) Neurologic/Psychiatric: Alert, Oriented x3, No Motor/Sensory Deficits, Normal Mood/Affect Skin: Normal Color, Warm/Dry Results Results/Procedures Labs Laboratory Tests 07/12/19 18:05 07/13/19 04:05 Patient resulted labs reviewed. Imaging: Reviewed Imaging Report Assessment/Plan Admission Diagnosis sepsis due to urinary tract infection Admission Status: Inpatient Order (span 2 midnights) Reason for Inpatient Admission: sepsis requiring IV antibiotics Assessment and Plan Sepsis due to urinary tract infection BPH with urinary retention Gram-negative bacteremia SIRS+ with fever and tachycardia UA consistent with urinary tract infection Blood cultures positive for gram-negative rods started on vancomycin and cefepime Transition to ceftriaxone Anguiano in place Urology consulted, appreciate assistance CHRISTINA on CKD creatinine 1.96 on admission, baseline around 0.8 Creatinine improved to 1.42 this morning Continue IV fluids likely postrenal due to obstruction, Anguiano in place NAGMA hypomagnesemia Continue to monitor and replace electrolytes as needed Anemia Hemoglobin 9.3, appears to be near baseline Continue to monitor DVT prophylaxis: Lovenox Diagnosis/Problems Diagnosis/Problems (1) Sepsis due to urinary tract infection Status: Acute (2) Urinary retention due to benign prostatic hyperplasia Status: Acute (3) Acute kidney injury Status: Acute (4) Gram-negative bacteremia Status: Acute Clinical Quality Measures DVT/VTE Risk/Contraindication: Risk Factor Score Per Nursin RFS Level Per Nursing on Admit: 4+=Very High NAREN MCMAHON MD Jul 13, 2019 11:00
[2019-07-13] MEDS: RT-ALBUTEROL/IPRATROPIUM 3 ML (DUONEB) VIAL INH SCH ×4 (11:12→21:26)
--- NOTE | 2019-07-13 11:22 | NUR ---
Pt is [employer]ism and declines sacraments. Nailhead Puncher offered blessing. Pt said breakfast sausage was inedible.
[2019-07-13] MEDS: MAGNESIUM 1 GM/100 ML IVPB 100 ML IV SCH ×5 (11:30→15:02)
[2019-07-13] MEDS: cefTRIAXone FOR IV USE 2,000 MG in WATER (STERILE) FOR INJECTION 20 ML IV SCH (12:28)
[2019-07-13] MEDS ORDERED: CEPH250C PO (13:46)
[2019-07-13] MEDS ORDERED: L.AC1CAP6 PO (13:50)
--- NOTE | 2019-07-13 13:51 | NUR ---
SPOKE WITH THE PT (HE IS UNSURE OF MEDICATIONS), WENT THRU THE EXT MED HISTORY AND CALLED THE PT'S DAUGHTER (EMRE) TO COMPLETE THE MED REC. PT WAS UNSURE OF HIS MEDICATIONS AND SAID HIS DAUGHTER KNEW ALL ABOUT THEM. THAT IS WHEN I REACHED OUT TO HER TO GET CLARIFICATION. BETHANECHOL AND ATENOLOL HAVE BEEN DISCONTINUED. CEPHALEXIN: PT STARTED THIS ON 06-30-2019 AND TAKES 1 HS RECEIVED #30- DAUGHTER SAID HE WAS TAKING THIS TO CLEAR UP ANY INFECTION BEFORE A BLADDER SURGERY. 02-20-2019 LASIX 20MG #30- DAUGHTER SAYS HE ONLY TAKES 20 MG Q 48 HOURS AND AFTER THIS STOCK WAS USED HE HAD AN OLD STOCK OF THE 40MG AND HAS BEEN CUTTING THOSE IN HALF. OTC MEDS: ASPIRIN CALCIUM B-12 GLUCOSAMINE ZINC MTV FISH OIL ANNA ALTMAN
--- NOTE | 2019-07-13 17:50 | NUR ---
REC'D PER BED FROM CARDIAC STEPDOWN. ALERT AND ORIENTED. ON ROOM AIR. IV INFUSING RT WRIST. RIVERS TO DD WITH DK YELLOW URINE. DENIES C/O.
[2019-07-13] MEDS: ONDANSETRON 4 MG/2 ML (SDV) Z0FRAN IV PRN (22:37)
[2019-07-14] VITALS: BP 117/55
[2019-07-14] MEDS: RT-ALBUTEROL/IPRATROPIUM 3 ML (DUONEB) VIAL INH SCH ×5 (02:07→19:20)
[2019-07-14 04:00] VITALS: BP 121/57
[2019-07-14] MEDS: inSUlin ASPART (NovoLOG) 1 UNIT/0.01 ML (CHARGE PER UNIT) SC SCH ×4 (05:30→20:16)
[2019-07-14] MEDS: LACTOBACILLUS ACIDOPHILUS (PROBIOTIC) CAPSULE PO SCH ×2 (06:14→16:23)
[2019-07-14] MEDS: NS W/KCL 20 MEQ/L 1,000 ML IV SCH (06:41)
[2019-07-14 08:00] VITALS: BP 118/71
[2019-07-14 08:16] LABS: BUN/CREATININE RATIO 19; CALCIUM 8.5 MG/DL (8.5-10.1); CARBON DIOXIDE 20 MMOL/L (21-32); CHLORIDE 113 MMOL/L (98-107); GFR ESTIMATED > 60; GLUCOSE 117 MG/DL (70-105); MAGNESIUM 1.6 MG/DL (1.6-2.4); POTASSIUM 3.8 MMOL/L (3.6-5.0); SODIUM 140 MMOL/L (135-145)
[2019-07-14] MEDS ORDERED: ZOLPIDEM 5 MG (AMBIEN) TAB PO PRN (09:30)
[2019-07-14] MEDS ORDERED: MAGNESIUM 1 GM/100 ML IVPB 200 ML IV ONE (09:37)
[2019-07-14] MEDS ORDERED: cefTRIAXone 1,000 MG IV (ROCEPHIN) VIAL ONE (09:38)
[2019-07-14] MEDS ORDERED: WATER (STERILE) FOR INJECTION 0 ML ONE (09:39)
[2019-07-14] MEDS: ENOXAPARIN 40 MG/0.4 ML (LOVENOX) SYR SC SCH ×2 (09:44→20:15)
[2019-07-14] MEDS: MAGNESIUM 1 GM/100 ML IVPB 100 ML IV SCH ×2 (09:45→10:43)
[2019-07-14] MEDS ORDERED: cefTRIAXone 2 GM IV (ROCEPHIN) VIAL ONE (10:31)
[2019-07-14] MEDS ORDERED: WATER (STERILE) FOR INJECTION 20 ML ONE (10:31)
[2019-07-14] MEDS: cefTRIAXone FOR IV USE 2,000 MG in WATER (STERILE) FOR INJECTION 20 ML IV SCH (10:43)
--- NOTE | 2019-07-14 11:01 | Progress Note - Hospitalist ---
Subjective HPI/CC On Admission Date Seen by Provider: Jul 14, 2019 Time Seen by Provider: 09:20 Ilia Barbour is an 79-year-old male well-known to me from previous admissions who presented with weakness. He has had issues with urinary retention and discharged with a Anguiano catheter in place after his last admission. At that time he had a urinary tract infection with bacteremia. On this admission, he was found to have a urinary tract infection again. He reports having fevers. He denies any chest pain or shortness of breath. He denies any nausea, vomiting, or abdominal pain. He denies any diarrhea. He denies any dysuria. He denies any rash. Subjective/Events-last exam He says that he did not sleep well last night. He was hoping he can go home today. He says he needs something more than melatonin delta sleep at night. He denies any fevers or chills. He denies any chest pain or shortness of breath. He denies any abdominal pain, nausea, vomiting, or diarrhea. He has no other complaints or concerns. Focused Exam Lactate Level 07/12/19 18:05: Lactic Acid Level 1.01 Objective Exam Vital Signs Vital Signs Date Time Temp Pulse Resp B/P (MAP) Pulse Ox O2 Delivery O2 Flow Rate FiO2 07/14/19 08:28 95 Room Air 07/14/19 04:00 36.9 95 20 121/57 (78) 07/13/19 16:00 2.00 Capillary Refill : Less Than 3 Seconds General Appearance: No Apparent Distress, WD/WN, Obese HEENT: PERRL/EOMI, Pharynx Normal Neck: Normal Inspection, Supple Respiratory: Lungs Clear, Normal Breath Sounds, No Respiratory Distress Cardiovascular: Regular Rate, Rhythm, No Murmur Gastrointestinal: Normal Bowel Sounds, Non Tender, Soft Extremity: Normal Inspection, Non Tender, Pedal Edema Neurologic/Psychiatric: Alert, Oriented x3, No Motor/Sensory Deficits, Depressed Affect, Other (Irritated, angry) Skin: Normal Color, Warm/Dry Results/Procedures Lab Laboratory Tests 07/14/19 07:28 Patient resulted labs reviewed. Imaging: Reviewed Imaging Report Assessment/Plan Assessment and Plan Assess & Plan/Chief Complaint Sepsis due to urinary tract infection BPH with urinary retention Gram-negative bacteremia SIRS+ with fever and tachycardia UA consistent with urinary tract infection Blood cultures positive for gram-negative rods Await culture results Continue ceftriaxone Anguiano in place Urology consulted, appreciate assistance CHRISTINA on CKD creatinine 1.96 on admission, baseline around 0.8 Creatinine improved to 1.00 this morning Stop IV fluids likely postrenal due to obstruction, Anguiano in place NAGMA Hypomagnesemia Continue to monitor and replace electrolytes as needed Anemia Hemoglobin appears to be near baseline Continue to monitor T2DM Check A1c Sliding scale insulin Insomnia Add Ambien DVT prophylaxis: Lovenox Diagnosis/Problems Diagnosis/Problems (1) Sepsis due to urinary tract infection Status: Acute (2) Urinary retention due to benign prostatic hyperplasia Status: Acute (3) Acute kidney injury Status: Resolved Resolution Date/Time: 07/14/19 @ 11:01 (4) Gram-negative bacteremia Status: Acute Clinical Quality Measures DVT/VTE Risk/Contraindication: Risk Factor Score Per Nursin RFS Level Per Nursing on Admit: 4+=Very High NAREN MCMAHON MD Jul 14, 2019 11:01
[2019-07-14 12:00] VITALS: BP 112/66
[2019-07-14 16:00] VITALS: BP 129/65
[2019-07-15] VITALS: BP 149/81
[2019-07-15] MEDS: ONDANSETRON 4 MG/2 ML (SDV) Z0FRAN IV PRN ×2 (02:36→07:48)
[2019-07-15] MEDS: RT-ALBUTEROL/IPRATROPIUM 3 ML (DUONEB) VIAL INH SCH ×6 (03:29→19:33)
[2019-07-15 05:37] LABS: HEMOGLOBIN 9.7 G/DL (13.3-17.7); MEAN PLATELET VOLUME 11.6 FL (7.4-10.4); RED CELL DISTRIBUTION WIDTH 21.2 % (10.0-14.5); WHITE BLOOD COUNT 9.9 10^3/uL (4.3-11.0)
[2019-07-15 05:52] LABS: BUN/CREATININE RATIO 14; CALCIUM 9.3 MG/DL (8.5-10.1); CARBON DIOXIDE 21 MMOL/L (21-32); CHLORIDE 111 MMOL/L (98-107); CREATININE SERUM 1.04 MG/DL (0.60-1.30); GFR ESTIMATED > 60; GLUCOSE 129 MG/DL (70-105); POTASSIUM 3.9 MMOL/L (3.6-5.0); SODIUM 142 MMOL/L (135-145)
[2019-07-15] MEDS: inSUlin ASPART (NovoLOG) 1 UNIT/0.01 ML (CHARGE PER UNIT) SC SCH ×4 (05:54→21:26)
[2019-07-15] MEDS: LACTOBACILLUS ACIDOPHILUS (PROBIOTIC) CAPSULE PO SCH ×2 (05:54→17:13)
[2019-07-15] MEDS ORDERED: cefTRIAXone 2 GM IV (ROCEPHIN) VIAL ONE (07:43)
[2019-07-15] MEDS ORDERED: WATER (STERILE) FOR INJECTION 20 ML ONE (07:43)
[2019-07-15] MEDS: cefTRIAXone FOR IV USE 2,000 MG in WATER (STERILE) FOR INJECTION 20 ML IV SCH (07:58)
[2019-07-15] MEDS: ENOXAPARIN 40 MG/0.4 ML (LOVENOX) SYR SC SCH ×2 (07:59→21:32)
[2019-07-15 08:00] VITALS: BP 136/71
[2019-07-15] MEDS ORDERED: CEFEPIME INJECTION 2,000 MG in WATER (STERILE) FOR INJECTION 20 ML IV ONE (09:00)
--- NOTE | 2019-07-15 10:42 | Progress Note - Urology ---
Progress Note-Urology Progress Notes/Assess & Plan Progress/Assessment & Plan STILL WEAK. CONTINUE SAME MEDICAL PLAN. EVALUATE ON TUESDAY FOR ?OR TUESDAY Final Diagnosis URINE RETENTION AND UROSEPSIS FANG MCMILLAN MD Jul 15, 2019 10:42
[2019-07-15] MEDS: CEFEPIME INJECTION 1,000 MG in WATER (STERILE) FOR INJECTION 10 ML IV SCH ×3 (12:59→21:33)
--- NOTE | 2019-07-15 13:39 | Progress Note - Hospitalist ---
Subjective HPI/CC On Admission Date Seen by Provider: Jul 15, 2019 Time Seen by Provider: 10:15 Ilia Barbour is an 79-year-old male well-known to me from previous admissions who presented with weakness. He has had issues with urinary retention and discharged with a Anguiano catheter in place after his last admission. At that time he had a urinary tract infection with bacteremia. On this admission, he was found to have a urinary tract infection again. He reports having fevers. He denies any chest pain or shortness of breath. He denies any nausea, vomiting, or abdominal pain. He denies any diarrhea. He denies any dysuria. He denies any rash. Subjective/Events-last exam He says that he slept better last night. He is still feeling tired this morning. Has no complaints or concerns this morning. Focused Exam Lactate Level 07/12/19 18:05: Lactic Acid Level 1.01 Objective Exam Vital Signs Vital Signs Date Time Temp Pulse Resp B/P (MAP) Pulse Ox O2 Delivery O2 Flow Rate FiO2 07/15/19 11:26 91 Room Air 07/15/19 08:00 36.8 83 20 136/71 (92) 07/13/19 16:00 2.00 Capillary Refill : Less Than 3 Seconds General Appearance: No Apparent Distress, Obese, Other (fatigued) Respiratory: Lungs Clear, Normal Breath Sounds, No Respiratory Distress Cardiovascular: Regular Rate, Rhythm, No Edema, No Murmur Gastrointestinal: Normal Bowel Sounds, Non Tender, Soft Extremity: Normal Inspection, Non Tender, Pedal Edema Neurologic/Psychiatric: Alert; No Disoriented; Other (fatigued) Skin: Normal Color, Warm/Dry Results/Procedures Lab Laboratory Tests 07/15/19 05:16 Patient resulted labs reviewed. Imaging: Reviewed Imaging Report Assessment/Plan Assessment and Plan Assess & Plan/Chief Complaint Sepsis due to urinary tract infection BPH with urinary retention Enterobacter bacteremia Urine culture positive for Enterobacter Blood cultures positive for Enterobacter Enterobacter resistant to ceftriaxone transition to cefepime Anguiano in place Urology consulted, appreciate assistance planning for suprapubic catheter placement on Tuesday consider transition to swing bed status on Tuesday CHRISTINA on CKD creatinine 1.96 on admission, baseline around 0.8 Creatinine improved to 1.04 this morning likely postrenal due to obstruction, Anguiano in place NAGMA Hypomagnesemia Continue to monitor and replace electrolytes as needed Anemia Hemoglobin appears to be near baseline Continue to monitor T2DM A1c 7% Sliding scale insulin Insomnia melatonin DVT prophylaxis: Lovenox Diagnosis/Problems Diagnosis/Problems (1) Sepsis due to urinary tract infection Status: Acute (2) Urinary retention due to benign prostatic hyperplasia Status: Acute (3) Acute kidney injury Status: Resolved Resolution Date/Time: 07/14/19 @ 11:01 (4) Gram-negative bacteremia Status: Acute (5) Bacteremia due to Enterobacter species Status: Acute Clinical Quality Measures DVT/VTE Risk/Contraindication: Risk Factor Score Per Nursin RFS Level Per Nursing on Admit: 4+=Very High NAREN MCMAHON MD Jul 15, 2019 13:39
[2019-07-15] MEDS ORDERED: MELATONIN 3 MG TABLET PO PRN (13:45)
[2019-07-15 16:00] VITALS: BP 133/63
[2019-07-15 20:02] VITALS: BP 133/63
--- NOTE | 2019-07-15 20:26 | NUR ---
PT STATES HE DOES NOT WANT DISTURBED DURING THE NIGHT. ADVISED HIM THAT I HAVE A MEDICATION TO ADMIN AT 0000 AND 0600. HE REQUESTED THAT I BRING ALL HIS MEDS AT THE SAME TIME. I ADVISED HIM I WILL BRING MEDS IN AROUND 2200 AND HE AGREED. I&O COLLECTED AT THIS TIME WELL BLOOD SUGAR.
[2019-07-16] MEDS ORDERED: WATER (STERILE) FOR INJECTION 10 ML ONE (05:14)
[2019-07-16] MEDS: CEFEPIME INJECTION 1,000 MG in WATER (STERILE) FOR INJECTION 10 ML IV SCH ×2 (05:23→12:02)
[2019-07-16] MEDS: inSUlin ASPART (NovoLOG) 1 UNIT/0.01 ML (CHARGE PER UNIT) SC SCH ×2 (05:23→11:27)
[2019-07-16] MEDS: LACTOBACILLUS ACIDOPHILUS (PROBIOTIC) CAPSULE PO SCH (05:23)
[2019-07-16] MEDS ORDERED: RT-ALBUTEROL/IPRATROPIUM 3 ML (DUONEB) VIAL INH SCH (08:00)
[2019-07-16] MEDS: ENOXAPARIN 40 MG/0.4 ML (LOVENOX) SYR SC SCH (08:55)
--- NOTE | 2019-07-16 10:45 | Physician Query Clarification ---
PQ-Conflicting Diagnosis Admission/Discharge Admission Date: Jul 12, 2019 at 19:50 Discharge Date: The medical record reflects the following clinical scenario: History/Risk Factors: Sepsis Acute Cystitis shortness of breath and had some coughing. Clinical Findings: 07/12 xray impression:Patchy bibasilar opacities, right greater than left. This may represent atelectasis or infection. 07/13 xray impression: No acute cardiopulmonary finding. The previously seen bibasilar atelectasis or infiltrate is resolved. Treatment: IV Cefepime and IV Vancomycin. Question: Do you agree with the impression of the Pneumonia per Dr. Rebolledo, ED physician. Please document a response in Progress Note or Discharge Summary. 1. Yes 2. No 3. Other, with explanation of clinical findings 4. Clinically undetermined, no explanation for clinical findings. PHYSICIAN RESPONSE Do you agree w/Consulting Dx?: No Please remember a lack of response to the above will prompt a phone page by CDI/Coding staff. In responding to this query, please exercise your independent professional judgment. The purpose of this communication is to more accurately reflect the complexity of your patients condition. The fact that a question is asked does not imply that any particular answer is desired or expected. Thank you for your timely response to this clarification. Requestors name: Kalie Ortiz [facility] Phone # ext [phone] or [phone] THIS PHYSICIAN QUERY FORM IS A PERMANENT PART OF THE MEDICAL RECORD KALIE ORTIZ Jul 16, 2019 10:45 NAREN MCMAHON MD Jul 16, 2019 18:22
--- NOTE | 2019-07-16 10:52 | Physician Query Clarification ---
PQ-Conflicting Diagnosis Admission/Discharge Admission Date: Jul 12, 2019 at 19:50 Discharge Date: The medical record reflects the following clinical scenario: History/Risk Factors: Sepsis Acute Kidney Injury Some shortness of breath and cough. Clinical Findings: Blood gases: pH 7.37, pC02 34, P02 71, Sats 89%. T 39.3, P 112, Resp 18 BP 143/77. Treatment: Nasal cannula Oxygen at 2 L. Question: Do you agree with the impression of Acute Respiratory Failure with hypoxia per Dr. Rebolledo, ED physician. Please document a response in Progress Note or Discharge Summary. 1. Yes 2. No 3. Other, with explanation of clinical findings 4. Clinically undetermined, no explanation for clinical findings. PHYSICIAN RESPONSE Do you agree w/Consulting Dx?: Yes Please remember a lack of response to the above will prompt a phone page by CDI/Coding staff. In responding to this query, please exercise your independent professional judgment. The purpose of this communication is to more accurately reflect the complexity of your patients condition. The fact that a question is asked does not imply that any particular answer is desired or expected. Thank you for your timely response to this clarification. Requestors name: Kalie Ortiz [facility] Phone # ext [phone] or [phone] THIS PHYSICIAN QUERY FORM IS A PERMANENT PART OF THE MEDICAL RECORD KALIE ORTIZ Jul 16, 2019 10:52 NAREN MCMAHON MD Jul 16, 2019 18:23
--- NOTE | 2019-07-16 10:59 | Physician Query Clarification ---
PQ-Conflicting Diagnosis Admission/Discharge Admission Date: Jul 12, 2019 at 19:50 Discharge Date: The medical record reflects the following clinical scenario: History/Risk Factors: Sepsis UTI Acute Kidney Injury Clinical Findings: T39.3, P 112, Resp 18, BP 143/77, Creatinine 1.96, eGFR 33, BUN 38. Treatment:IV Sodium Chloride, IV Cefepime HCI, IV Vancomycin. Question: Do you agree with the impression of the Severe Sepsis without septic shock; acute kidney failure per Dr. Rebolledo, ED physician? Please document a response in Progress Note or Discharge Summary. 1. Yes 2. No 3. Other, with explanation of clinical findings 4. Clinically undetermined, no explanation for clinical findings. PHYSICIAN RESPONSE Do you agree w/Consulting Dx?: Yes Please remember a lack of response to the above will prompt a phone page by CDI/Coding staff. In responding to this query, please exercise your independent professional judgment. The purpose of this communication is to more accurately reflect the complexity of your patients condition. The fact that a question is asked does not imply that any particular answer is desired or expected. Thank you for your timely response to this clarification. Requestors name: Kalie Ortiz [facility] Phone # ext [phone] or [phone] THIS PHYSICIAN QUERY FORM IS A PERMANENT PART OF THE MEDICAL RECORD KALIE ORTIZ Jul 16, 2019 10:59 NAREN MCMAHON MD Jul 16, 2019 18:24
[2019-07-16] MEDS ORDERED: LEVO750T39 PO (11:16)
--- NOTE | 2019-07-16 11:17 | Discharge Inst-Simple/Standard ---
Discharge Inst-Standard Reconcile Patient Problems Problems Reviewed?: Yes Discharge Medications New, Converted or Re-Newed RX: Transmitted to Pharmacy Patient Instructions/Follow Up Plan of Care/Instructions/FU: Please continue to take her medications as written. Please follow up with Dr. Khalil on Tuesday. Activity as Tolerated: Yes Discharge Diet: No Restrictions Return to The Hospital For: Fever, chills, altered mental status, if you feel you're getting worse. LIZANDRO LENTZ MD Jul 16, 2019 11:17
--- NOTE | 2019-07-16 11:33 | NUR ---
Important Message from Medicare presented, reviewed, signed and placed in patient chart. Patient and daughter voiced no intention to appeal and deny any needs or further questions at this time.
[2019-07-16] MEDS ORDERED: LEVOFLOXACIN 750 MG TAB (LEVAQUIN) ONE (11:53)
[2019-07-16 12:46] VITALS: BP 133/63
== END 2019-07-16 12:52 | disposition home or self-care (01) | DRG 871 ==
LOC: EDUNIT# 17:55 → ER 17:56 → CSD 19:50 → 4TH 07-13 17:46
PROVIDERS: ADMIT Internal Medicine; ATTEND Internal Medicine
DX: A41.59 Other Gram-negative sepsis (principal); R65.20 Severe sepsis without septic shock; N30.00 Acute cystitis without hematuria; J96.01 Acute respiratory failure with hypoxia; N17.9 Acute kidney failure, unspecified; E87.2 Acidosis; I12.9 Hypertensive chronic kidney disease with stage 1 through stage 4 chronic kidney disease, or unspecified chronic kidney disease; N18.9 Chronic kidney disease, unspecified; N31.9 Neuromuscular dysfunction of bladder, unspecified; N40.1 Benign prostatic hyperplasia with lower urinary tract symptoms; R33.8 Other retention of urine; D64.9 Anemia, unspecified; I25.10 Atherosclerotic heart disease of native coronary artery without angina pectoris; I25.2 Old myocardial infarction; E78.00 Pure hypercholesterolemia, unspecified; E11.40 Type 2 diabetes mellitus with diabetic neuropathy, unspecified; G47.30 Sleep apnea, unspecified; R01.1 Cardiac murmur, unspecified; K21.9 Gastro-esophageal reflux disease without esophagitis; K59.09 Other constipation; M19.91 Primary osteoarthritis, unspecified site; M54.9 Dorsalgia, unspecified; M10.9 Gout, unspecified; I35.0 Nonrheumatic aortic (valve) stenosis; E83.42 Hypomagnesemia; G47.00 Insomnia, unspecified; Z87.891 Personal history of nicotine dependence; Z95.5 Presence of coronary angioplasty implant and graft; Z96.651 Presence of right artificial knee joint
CPT/HCPCS: 36415; 51702; 71045; 80048; 80053; 81000; 82274; 82805; 82962; 83036; 83605; 83735; 83880; 84100; 84145; 85007; 85025; 85027; 85610; 85730; 87040; 87077; 87088; 87186; 87804; 94640; 94664; 94760; 96361; 96365; 96367; 96375

== ENCOUNTER 2019-07-18 06:34 | Day surgery (SDC) | payer MEDICARE, OTHER ==
[~2019-07-18] VITALS: Ht 180 cm; Wt 117.5 kg
[2019-07-18] VITALS (14 sets, daily range): BP systolic 11–158; BP diastolic 26–78
[~2019-07-18 06:34] MED LIST changes: +CEPH250C PO; +LEVO750T39 PO
[2019-07-18] MEDS ORDERED: LACTATED RINGERS 1,000 ML IV PRN (06:45)
[2019-07-18] MEDS ORDERED: cefTRIAXone FOR IV USE 1,000 MG in WATER (STERILE) FOR INJECTION 10 ML IV ONE (06:45)
--- NOTE | 2019-07-18 06:55 | Progress Note-Pre Operative ---
Pre-Operative Progress Note H&P Reviewed The H&P was reviewed, patient examined and no changes noted. Date Seen by Provider: Jul 18, 2019 Time Seen by Provider: 06:55 Date H&P Reviewed: Jul 18, 2019 Time H&P Reviewed: 06:55 Pre-Operative Diagnosis: NEUROGENIC BLADDER WITH RETENTION FANG MCMILLAN MD Jul 18, 2019 06:55
--- NOTE | 2019-07-18 07:00 | Progress Note-Post Operative ---
Post-Operative Progess Note Surgeon (s)/Telemarketing Supervisor (s) Surgeon FANG MCMILLAN MD Telemarketing Supervisor: Stacey BREWER Pre-Operative Diagnosis NEUROGENIC BLADDER WITH RETENTION Post-Operative Diagnosis SAME Procedure & Operative Findings Date of Procedure 07/18/19 Procedure Performed/Findings SUPRAPUBIC TUBE CYSTOSTOMY TUBE PLACEMENT Anesthesia Type GENERAL Estimated Blood Loss Estimated blood loss (mL): LESS THAN 50CC Specimens/Packing Specimens Removed NONE Packing: NONE FANG MCMILLAN MD Jul 18, 2019 07:00
[2019-07-18] MEDS ORDERED: GENTAMICIN 40 MG/ML 2 ML INJ SDV ONE (07:27)
[2019-07-18] MEDS ORDERED: LIDOCAINE 1% INJ 20 ML 20 ML VIAL ONE (07:33)
[2019-07-18] MEDS ORDERED: SEVOFLURANE (ULTANE) 15 ML INHAL SOLN ONE ×2 (08:21→09:03)
[2019-07-18] MEDS ORDERED: LIDOCAINE PF 2% 5 ML (XYLOCAINE) VIAL ONE (08:21)
[2019-07-18] MEDS ORDERED: proPOfol 200 MG/20 ML (DIPRIVAN) VIAL IV ONE (08:21)
[2019-07-18] MEDS ORDERED: fentaNYL INJECTION 100 MCG/2 ML AMP ONE (08:21)
[2019-07-18] MEDS ORDERED: ONDANSETRON 4 MG/2 ML (SDV) Z0FRAN ONE (08:23)
[2019-07-18] MEDS ORDERED: DEXAMETHASONE 10 MG/ML (DECADRON) 1 ML VIAL ONE (08:23)
[2019-07-18] MEDS ORDERED: PHENYLEPHRINE 100 MCG/ML 10 ML (ANESTHESIA) SYR ONE (08:41)
[2019-07-18] MEDS ORDERED: GLYCOPYRROLATE 0.2 MG/ML (ROBINUL) 2 ML VIAL ONE (08:59)
[2019-07-18] MEDS ORDERED: NEOSTIGMINE 3 MG/3 ML VIAL ONE (09:00)
[2019-07-18] MEDS ORDERED: ROCURONIUM 10 MG/ML 5 ML SYRINGE IV ONE (09:03)
[2019-07-18] MEDS ORDERED: ONDANSETRON 4 MG/2 ML (SDV) Z0FRAN IVP PRN (09:45)
[2019-07-18] MEDS ORDERED: HYDROmorphone 2 MG/ML VIAL (DILAUDID) IV ONE (09:45)
--- NOTE | 2019-07-18 11:30 | Discharge Inst-Urology ---
Discharge Inst-Urology Reconcile Patient Problems Problems Reviewed?: Yes Final Diagnosis URINE RETENTION Patient Instructions/Follow Up Plan/Assessment/Instructions Please make appointment to been seen in office in 2 weeks. Rest till then. No ASA, Flomax, Proscar or Bethanechol Please give family instructions re brock care and to use leg bag day time and large bag night time Tomorrow may start showers no bath Keep bowels soft and moving Increase oral fluids for 48 hours and then as needed. Diet as tolerated. If questions or concerns contact your physician Or seek help at emergency department. FANG MCMILLAN MD Jul 18, 2019 11:30
[2019-07-18] MEDS ORDERED: CEPH-507 PO (12:06)
[2019-07-18] MEDS ORDERED: TRM50T PO (12:06)
--- NOTE | 2019-07-18 12:15 | Anesthesia-General Post-Op ---
General Patient Condition Mental Status/LOC: Same as Preop Cardiovascular: Satisfactory Nausea/Vomiting: Absent Respiratory: Satisfactory Pain: Controlled Complications: Absent Post Op Complications Complications None Follow Up Care/Instructions Patient Instructions None needed. Anesthesia/Patient Condition Patient Condition Patient is doing well, no complaints, stable vital signs, no apparent adverse anesthesia problems. No complications reported per nursing. D/C home per [facility] Criteria: Yes HERIBERTO ROTH CRNA Jul 18, 2019 12:15
--- NOTE | 2019-07-18 13:15 | NUR ---
CATHETER DRAINED 320ML RED TINGED URINE, NO CLOTS PRESENT.
--- NOTE | 2019-07-18 19:06 | OPERATIVE REPORT ---
DATE OF SERVICE: 07/18/2019 PREOPERATIVE DIAGNOSIS: Neurogenic bladder with urinary retention. POSTOPERATIVE DIAGNOSIS: Neurogenic bladder with urinary retention. OPERATION PERFORMED: Suprapubic cystostomy tube placement. SURGEON: Dominic Mcmillan MD. GLOVE PARTS INSPECTOR: Hay Prajapati DO. ANESTHESIA: General. COMPLICATIONS: None. DESCRIPTION OF PROCEDURE: Under satisfactory general anesthesia, the patient in supine position, the bladder was filled with 500 mL of fluid with antibiotic solution and the catheter was clamped. The abdomen, genitalia and thigh were prepped and draped in the usual sterile fashion. Midline incision was made from the symphysis pubis, carried for a few centimeters toward the umbilicus. Incision was carried down to the fascia that was incised. The midline was identified and the retropubic space was entered. Malissa retractor was applied. The bladder was seen and felt distended and confirmed with a needle and syringe aspiration. Stab wound was performed at this area and then a 22-Maltese 10 mL balloon Anguiano catheter was inserted. The balloon inflated to 10 mL and pulled snugly against the anterior wall of the bladder. There was no reason to put any suture. The bladder was drained. Hemostasis was complete. There was no leakage at the end of the surgery. The Closure was performed in layer by Dr. Prajapati with interrupted 2-0 Vicryl, the skin with alonso. The suprapubic tube was secured in position with 0 silk suture. The urine was clear. Estimated blood loss was less than 50 mL. Needle, sponge, instruments correct x2. The patient tolerated the procedure and anesthesia well and was sent to recovery room in stable condition. Job ID: [id number] DocumentID: [id number] Dictated Date: 07/18/2019 11:37:03 [employer] Truck Driver Date: 07/18/2019 19:04:55 Dictated By: DOMINIC MCMILLAN MD
== END 2019-07-18 13:15 | disposition home or self-care (01) ==
LOC: SDC 06:34
PROVIDERS: ATTEND Urology
DX: N31.9 Neuromuscular dysfunction of bladder, unspecified (principal); R33.9 Retention of urine, unspecified; I10 Essential (primary) hypertension; I25.10 Atherosclerotic heart disease of native coronary artery without angina pectoris; E66.9 Obesity, unspecified; G47.33 Obstructive sleep apnea (adult) (pediatric); K21.9 Gastro-esophageal reflux disease without esophagitis; E11.40 Type 2 diabetes mellitus with diabetic neuropathy, unspecified; E78.5 Hyperlipidemia, unspecified; Z87.891 Personal history of nicotine dependence; Z90.89 Acquired absence of other organs; Z88.2 Allergy status to sulfonamides; Z68.38 Body mass index [BMI] 38.0-38.9, adult; Z90.49 Acquired absence of other specified parts of digestive tract
CPT/HCPCS: 82962; 87081

== ENCOUNTER → 2020-09-08 | Outpatient (CLI) | payer MEDICARE, OTHER ==
[~2020-09-08] MED LIST changes: +ACHYD1T PO; +ASPI-1238 PO; -ASPI-983 PO; +CEPH-507 PO; -HYDR-3820 PO; -PANT40TA3 PO; +PANT40TA52 PO; +TRM50T PO
== END ==
LOC: CARD 12:28
PROVIDERS: ATTEND Nurse Practitioner Family
DX: I35.1 Nonrheumatic aortic (valve) insufficiency (principal); I51.7 Cardiomegaly
CPT/HCPCS: 93306

== ENCOUNTER 2021-01-10 13:39 | Emergency (ER) | payer MEDICARE, OTHER ==
[~2021-01-10] VITALS: Ht 180 cm; Wt 120.0 kg
--- NOTE | 2021-01-10 14:28 | ED General ---
General Chief Complaint: Catheter/Drain/Tube Problems Stated Complaint: CATHETER PROBLEMS Source of Information: Patient Exam Limitations: No Limitations History of Present Illness Date Seen by Provider: Jan 10, 2021 Time Seen by Provider: 14:26 Initial Comments To ER with suprapubic catheter obstruction. He has had this for a long time. No fever no chills no nausea no vomiting no pain. Timing/Duration: 1-2 Days Severity: Moderate Associated Systoms: Denies Symptoms Allergies and Home Medications Allergies Coded Allergies: Sulfa (Sulfonamide Antibiotics) (Verified Allergy, Intermediate, RASH, CHILLS, 07/10/19) Home Medications Atorvastatin Calcium 40 Mg Tablet, 40 MG PO DAILY, (Reported) Calcium Carbonate 500 Mg Tablet, 500 MG PO 1800, (Reported) Cephalexin 500 Mg Capsule, 500 MG PO BID Prescribed by: UMANG LEMON on 07/18/19 1206 Cyanocobalamin (Vitamin B-12) 2,500 Mcg Tablet, 2,500 MCG PO DAILY, (Reported) Duloxetine HCl 60 Mg Capsule.dr, 60 MG PO HS, (Reported) Furosemide 20 Mg Tablet, 20 MG PO Q48H, (Reported) LAST FILLED #30 02-10-19 Gluc Beckham/Chondro Beckham A/Vit C/Mn 1 Each Tablet, 1 TAB PO DAILY, (Reported) L.acidoph & Paracasei,B.lactis 1 Each Capsule, 1 EACH PO BID, (Reported) Levofloxacin 750 Mg Tablet, 750 MG PO DAILY Prescribed by: LIZANDRO LENTZ on 07/16/19 1116 Levothyroxine Sodium 50 Mcg Tablet, 50 MCG PO DAILY, (Reported) TAKE ALONG WITH 200MCG TABLET Levothyroxine Sodium 200 Mcg Tablet, 200 MCG PO 0700, (Reported) TAKES ALONG WITH 50MCG TABLET Metformin HCl 1,000 Mg Tab.er.24, 1,000 MG PO BID WITH MEALS, (Reported) Mv-Mn/FA/Lycopene/Lut/Hb#178 1 Each Tablet, 2 TAB PO DAILY, (Reported) [place] 3 Polyunsat Fatty Acids 1,000 Mg Cap, 1,000 MG PO DAILY, (Reported) Pantoprazole Sodium 40 Mg Tablet.dr, 40 MG PO 1800, (Reported) Potassium Chloride 8 Meq Capsule.er, 8 MEQ PO Q48H, (Reported) Pregabalin 150 Mg Capsule, 150 MG PO BID, (Reported) Saw [place] Fruit 450 Mg Capsule, 2 CAP PO DAILY, (Reported) Sennosides/Docusate Sodium 1 Each Tablet, 3 TAB PO DAILY, (Reported) Tramadol HCl 50 Mg Tablet, 50-100 MG PO Q4H PRN for PAIN-MODERATE (5-7) Prescribed by: UMANG LEMON on 07/18/19 1036 Zinc 50 Mg Tablet, 50 MG PO DAILY, (Reported) Patient Home Medication List Home Medication List Reviewed: Yes Review of Systems Review of Systems Constitutional: see HPI EENTM: see HPI Respiratory: no symptoms reported Cardiovascular: no symptoms reported Genitourinary: no symptoms reported Musculoskeletal: no symptoms reported Skin: no symptoms reported Psychiatric/Neurological: No Symptoms Reported Hematologic/Lymphatic: No Symptoms Reported Immunological/Allergic: no symptoms reported Past Ydlvjpw-Polsqz-Kdeswq Hx Seasonal Allergies Seasonal Allergies: No Past Medical History Surgeries: Yes (BACK, NECK, HERNIA, R TKR) Abdominal, Appendectomy, Gallbladder, Orthopedic Respiratory: Yes Sleep Apnea Currently Using CPAP: No Currently Using BIPAP: No Cardiac: Yes (CARDIAC STENTS) Chronic Edema/Swelling, Coronary Artery Disease, Heart Attack, Heart Murmur, High Cholesterol, Hypertension Neurological: Yes (R LEG NERVE DAMAGE) Neuropathy Reproductive Disorders: No Sexually Transmitted Disease: No HIV/AIDS: No Genitourinary: Yes (incontience) Benign Prostatic Hyperpl, Bladder Infection, Kidney Stones, UTI-Chronic Gastrointestinal: Yes Gastroesophageal Reflux, Chronic Constipation Musculoskeletal: Yes (osteoarthritis) Arthritis, Chronic Back Pain, Gout Endocrine: Yes Diabetes, Non-Insulin dep HEENT: Yes (READING GLASSES) Cataract Loss of Vision: Denies Hearing Impairment: Denies Cancer: No Psychosocial: No Integumentary: No Blood Disorders: No Adverse Reaction/Blood Tranf: No Family Medical History Alcoholism 19 FATHER Completed stroke 19 MOTHER Diabetes mellitus 19 MOTHER G8 SISTER FH: pancreatic cancer G8 BROTHER Physical Exam Vital Signs Capillary Refill : Height, Weight, BMI Height: 5'11.00" Weight: 282lbs. 0.0oz. 127.305826pi; 36.26 BMI Method:Stated General Appearance: No Apparent Distress, WD/WN Eyes: Bilateral Eye Normal Inspection, Bilateral Eye PERRL, Bilateral Eye EOMI Neck: Full Range of Motion, Normal Inspection Respiratory: No Accessory Muscle Use, No Respiratory Distress Extremity: Normal Inspection Neurologic/Psychiatric: Alert, Oriented x3 Skin: Normal Color, Warm/Dry Comments Old Anguiano catheter removed, new one that he has with him in sterile packaging placed with ease Progress/Results/Core Measures Suspected Sepsis SIRS Temperature: Pulse: Respiratory Rate: Blood Pressure / Mean: Results/Orders Vital Signs/I&O Capillary Refill : Departure Impression Primary Impression: Encounter for Anguiano catheter replacement Disposition: HOME, SELF-CARE Condition: Stable Departure-Patient Inst. Decision time for Depature: 14:28 Referrals: BRIDGETT GUEVARA MD (PCP/Family) Primary Care Physician Patient Instructions: How to Care for Your Anguiano Catheter HUAN GRAY [employer] TECHNICIAN Jan 10, 2021 14:28
[2021-01-10 14:36] VITALS: BP 185/91
== END 2021-01-10 14:36 | disposition home or self-care (01) ==
LOC: EDUNIT# 13:39 → ER 13:41
DX: Z46.6 Encounter for fitting and adjustment of urinary device (principal); G47.30 Sleep apnea, unspecified; I10 Essential (primary) hypertension; I25.2 Old myocardial infarction; E78.00 Pure hypercholesterolemia, unspecified; I25.10 Atherosclerotic heart disease of native coronary artery without angina pectoris; E11.9 Type 2 diabetes mellitus without complications; K21.9 Gastro-esophageal reflux disease without esophagitis; Z79.84 Long term (current) use of oral hypoglycemic drugs; Z79.899 Other long term (current) drug therapy
CPT/HCPCS: 99283

== ENCOUNTER 2021-01-29 14:22 | Inpatient (IN) | payer MEDICARE, OTHER ==
[~2021-01-29] VITALS: Ht 180 cm; Wt 120.0 kg
[2021-01-29 15:11] LABS: ABG OXYGEN SATURATION 98 % (94-100); ABG PCO2 40 MMHG (35-45); ABG PH 7.43 (7.37-7.43); ABG PO2 120 MMHG (79-93); ABG TCO2 26.9 MMOL/L (21.0-31.0); ALLENS TEST YES-POS; INSPIRED O2 15L; PATIENT TEMP 100.5; VENTILATOR NO
[2021-01-29] MEDS ORDERED: ACETAMINOPHEN 500 MG TAB (TYLENOL) PO ONE (15:30)
[2021-01-29 15:33] LABS: ALBUMIN 3.1 GM/DL (3.2-4.5); BASOPHILS # (AUTO) 0.1 10^3/uL (0.0-0.1); BASOPHILS % (AUTO) 0 % (0-10); EOSINOPHILS % (AUTO) 0 % (0-10); HEMATOCRIT 42 % (40-54); HEMOGLOBIN 13.2 g/dL (13.3-17.7); LYMPHOCYTES # (AUTO) 0.3 10^3/uL (1.0-4.0); LYMPHOCYTES % (AUTO) 2 % (12-44); MEAN CORPUSCULAR HEMOGLOBIN 27 pg (25-34); MEAN CORPUSCULAR HGB CONC 32 g/dL (32-36); MEAN CORPUSCULAR VOLUME 85 fL (80-99); MEAN PLATELET VOLUME 11.8 fL (9.0-12.2); MONOCYTES # (AUTO) 0.4 10^3/uL (0.0-1.0); MONOCYTES % (AUTO) 3 % (0-12); NEUTROPHILS # (AUTO) 14.8 10^3/uL (1.8-7.8); NEUTROPHILS % (AUTO) 94 % (42-75); PLATELET COUNT 199 10^3/uL (130-400); WHITE BLOOD COUNT 15.8 10^3/uL (4.3-11.0)
[2021-01-29 15:34] LABS: POTASSIUM 4.1 MMOL/L (3.6-5.0)
[2021-01-29 15:35] LABS: CALCIUM 9.3 MG/DL (8.5-10.1); INR 1.1 (0.8-1.4); PROTHROMBIN TIME PATIENT 14.6 SEC (12.2-14.7)
[2021-01-29 15:36] LABS: TOTAL PROTEIN 6.5 GM/DL (6.4-8.2)
[2021-01-29 15:38] LABS: BILIRUBIN,TOTAL 1.4 MG/DL (0.1-1.0)
[2021-01-29 15:40] LABS: CREATININE SERUM 0.89 MG/DL (0.60-1.30)
[2021-01-29 15:49] LABS: COLOR,URINE YELLOW; GLUCOSE, URINE (UA) NEGATIVE (NEGATIVE); KETONES,URINE 2+ (NEGATIVE); LEUKOCYTE ESTERASE ,URINE 3+ (NEGATIVE); NITRITE,URINE NEGATIVE (NEGATIVE); PROTEIN,URINE 1+ (NEGATIVE)
[2021-01-29 16:00] LABS: BILIRUBIN,URINE 1+ (NEGATIVE); CLARITY,URINE CLOUDY
[2021-01-29 16:01] LABS: BACTERIA,URINE LARGE /HPF; WBC,URINE >100 /HPF
[2021-01-29 16:02] LABS: CALCIUM OXALATE CRYSTALS,UR FEW /LPF
[2021-01-29 16:06] LABS: ANISOCYTOSIS SLIGHT; BAND NEUTROPHILS 8 %; BASOPHILS % (MANUAL) 0 %; EOSINOPHILS % (MANUAL) 0 %; LYMPHOCYTES % (MANUAL) 1 %; MONOCYTES % (MANUAL) 1 %; NEUTROPHILS % (MANUAL) 90 %; POLYCHROMASIA SLIGHT
[2021-01-29] MEDS ORDERED: CEFEPIME INJECTION 2,000 MG in WATER (STERILE) FOR INJECTION 20 ML IV ONE (16:15)
--- NOTE | 2021-01-29 16:26 | Diagnostic Imaging Report ---
INDICATION: Short of air. FINDINGS: Single view of the chest is somewhat underpenetrated. There is mild cardiomegaly with no failure. No infiltrates or effusions are seen. There is no effusion or pneumothorax. IMPRESSION: No acute abnormality is evident, but the lung bases are underpenetrated. If symptoms persist and if further evaluation is felt necessary, PA and lateral chest in the radiology department would be helpful for better evaluation. Dictated by: Dictated on workstation # [id number]
--- NOTE | 2021-01-29 17:21 | ED General ---
General Chief Complaint: Respiratory Problems Stated Complaint: SOB Nursing Triage Note: Pt brought from home by [facility]. EMS, ALS. Pt was on 15L on non-rebreather. Pt reports he started having shortness of breath this morning. Denies use of oxygen at home. Pt states he was tested for covid by the health dept. this morning and he was negative. Pt in room 09. Source of Information: Patient Exam Limitations: No Limitations History of Present Illness Date Seen by Provider: Jan 29, 2021 Time Seen by Provider: 15:03 Initial Comments This 80-year-old gentleman presents to the emergency room via EMS with complaints of intermittent fever and chills for about the past 4 days. He has also had some shortness of breath. He is noted to be hypoxic on arrival but does not normally use oxygen at home. He was placed on high flow oxygen to achieve his saturation of 90%. Temp at this time is 100.5. He denies any vomiting or diarrhea. He states he was tested by a worker from [facility] in his home today for Covid and was called with a negative result. He has a suprapubic catheter. Allergies and Home Medications Allergies Coded Allergies: Sulfa (Sulfonamide Antibiotics) (Verified Allergy, Intermediate, RASH, CHILLS, 07/10/19) Home Medications Atorvastatin Calcium 40 Mg Tablet, 40 MG PO DAILY, (Reported) Calcium Carbonate 500 Mg Tablet, 500 MG PO 1800, (Reported) Cephalexin 500 Mg Capsule, 500 MG PO BID Prescribed by: UMANG LEMON on 07/18/19 1206 Cyanocobalamin (Vitamin B-12) 2,500 Mcg Tablet, 2,500 MCG PO DAILY, (Reported) Duloxetine HCl 60 Mg Capsule.dr, 60 MG PO HS, (Reported) Furosemide 20 Mg Tablet, 20 MG PO Q48H, (Reported) LAST FILLED #30 9-7-19 Gluc Beckham/Chondro Beckham A/Vit C/Mn 1 Each Tablet, 1 TAB PO DAILY, (Reported) L.acidoph & Paracasei,B.lactis 1 Each Capsule, 1 EACH PO BID, (Reported) Levofloxacin 750 Mg Tablet, 750 MG PO DAILY Prescribed by: LIZANDRO TSE on 07/16/19 1116 Levothyroxine Sodium 50 Mcg Tablet, 50 MCG PO DAILY, (Reported) TAKE ALONG WITH 200MCG TABLET Levothyroxine Sodium 200 Mcg Tablet, 200 MCG PO 0700, (Reported) TAKES ALONG WITH 50MCG TABLET Metformin HCl 1,000 Mg Tab.er.24, 1,000 MG PO BID WITH MEALS, (Reported) Mv-Mn/FA/Lycopene/Lut/Hb#178 1 Each Tablet, 2 TAB PO DAILY, (Reported) [place] 3 Polyunsat Fatty Acids 1,000 Mg Cap, 1,000 MG PO DAILY, (Reported) Pantoprazole Sodium 40 Mg Tablet.dr, 40 MG PO 1800, (Reported) Potassium Chloride 8 Meq Capsule.er, 8 MEQ PO Q48H, (Reported) Pregabalin 150 Mg Capsule, 150 MG PO BID, (Reported) Saw [place] Fruit 450 Mg Capsule, 2 CAP PO DAILY, (Reported) Sennosides/Docusate Sodium 1 Each Tablet, 3 TAB PO DAILY, (Reported) Tramadol HCl 50 Mg Tablet, 50-100 MG PO Q4H PRN for PAIN-MODERATE (5-7) Prescribed by: UMANG LEMON on 07/18/19 1206 Zinc 50 Mg Tablet, 50 MG PO DAILY, (Reported) Patient Home Medication List Home Medication List Reviewed: Yes Review of Systems Review of Systems Constitutional: see HPI EENTM: no symptoms reported Respiratory: see HPI Cardiovascular: no symptoms reported Gastrointestinal: no symptoms reported Genitourinary: no symptoms reported Musculoskeletal: no symptoms reported Skin: no symptoms reported Psychiatric/Neurological: No Symptoms Reported Hematologic/Lymphatic: No Symptoms Reported Immunological/Allergic: no symptoms reported Past Fpnkhvg-Ndyauu-Gjjaae Hx Patient Social History Tobacco Use?: No Substance use?: No Alcohol Use?: No Pt feels they are or have been: No Immunizations Up To Date First/Initial COVID19 Vaccinat: 06/2020 Second COVID19 Vaccination Luis: 06/2020 COVID19 Vaccine Piano [employer] 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 Two stents were placed in 1995. Surgeries: Yes (BACK, NECK, HERNIA, R TKR) Abdominal, Appendectomy, Gallbladder, Orthopedic Respiratory: Yes Sleep Apnea Currently Using CPAP: No Currently Using BIPAP: No Cardiac: Yes (CARDIAC STENTS) Chronic Edema/Swelling, Coronary Artery Disease, Heart Attack, Heart Murmur, High Cholesterol, Hypertension Neurological: Yes (R LEG NERVE DAMAGE) Neuropathy Reproductive Disorders: No Sexually Transmitted Disease: No HIV/AIDS: No Genitourinary: Yes (incontience) Benign Prostatic Hyperpl, Bladder Infection, Kidney Stones, UTI-Chronic Gastrointestinal: Yes Gastroesophageal Reflux, Chronic Constipation Musculoskeletal: Yes (osteoarthritis) Arthritis, Chronic Back Pain, Gout Endocrine: Yes Diabetes, Non-Insulin dep HEENT: Yes (READING GLASSES) Cataract Loss of Vision: Denies Hearing Impairment: Denies Cancer: No Psychosocial: No Integumentary: No Blood Disorders: No Adverse Reaction/Blood Tranf: No Family Medical History Alcoholism 19 FATHER Completed stroke 19 MOTHER Diabetes mellitus 19 MOTHER G8 SISTER FH: pancreatic cancer G8 BROTHER Physical Exam-Suspected Sepsis Physical Exam Vital Signs Vital Signs - First Documented 01/29/21 01/29/21 14:22 14:25 Temp 38.0 Pulse 81 Resp 20 B/P (MAP) 106/64 (78) Pulse Ox 92 O2 Delivery OxyMask O2 Flow Rate 15.00 FiO2 92 Capillary Refill : Blood Pressure Mean: 78 Height, Weight, BMI Height: 5'11.00" Weight: 282lbs. 0.0oz. 127.975641hw; 37.00 BMI Method:Stated General Appearance: No Apparent Distress, WD/WN HEENT: PERRL/EOMI, Normal ENT Inspection Neck: Normal Inspection Respiratory: No Accessory Muscle Use, No Respiratory Distress, Crackles (Bibasilar) Cardiovascular: Regular Rate, Rhythm, No Murmur Gastrointestinal: Normal Bowel Sounds, Non Tender, Soft Extremity: Normal Inspection, No Calf Tenderness, Swelling (Mild) Neurologic/Psychiatric: Alert, Oriented x3, No Motor/Sensory Deficits, Normal Mood/Affect, skiver blockers II-XII Norm as Tested Skin: normal color, warm/dry Focused Exam Lactate Level 01/29/21 14:30: Lactic Acid Level 1.83 Lactic Acid Level Progress/Results/Core Measures Suspected Sepsis SIRS Temperature: Pulse: 81 Respiratory Rate: 20 Laboratory Tests 01/29/21 14:30: White Blood Count 15.8H Blood Pressure 106 /64 Mean: 78 01/29/21 14:30: Lactic Acid Level 1.83 Laboratory Tests 01/29/21 14:30: Creatinine 0.89, INR Comment 1.1, Platelet Count 199, Total Bilirubin 1.4H Results/Orders Lab Results Laboratory Tests Test 01/29/21 14:25 01/29/21 14:30 01/29/21 14:43 01/29/21 15:35 Range/Units Influenza Type A (RT-PCR) Not Detected Not Detecte Influenza Type B (RT-PCR) Not Detected Not Detecte SARS-CoV-2 RNA (RT-PCR) Not Detected Not Detecte White Blood Count 15.8 H 4.3-11.0 10^3/uL Red Blood Count 4.86 4.30-5.52 10^6/uL Hemoglobin 13.2 L 13.3-17.7 g/dL Hematocrit 42 40-54 % Mean Corpuscular Volume 85 80-99 fL Mean Corpuscular Hemoglobin 27 25-34 pg Mean Corpuscular Hemoglobin Concent 32 32-36 g/dL Red Cell Distribution Width 17.8 H 10.0-14.5 % Platelet Count 199 130-400 10^3/uL Mean Platelet Volume 11.8 9.0-12.2 fL Immature Granulocyte % (Auto) 1 % Neutrophils (%) (Auto) 94 H 42-75 % Lymphocytes (%) (Auto) 2 L 12-44 % Monocytes (%) (Auto) 3 0-12 % Eosinophils (%) (Auto) 0 0-10 % Basophils (%) (Auto) 0 0-10 % Neutrophils # (Auto) 14.8 H 1.8-7.8 10^3/uL Lymphocytes # (Auto) 0.3 L 1.0-4.0 10^3/uL Monocytes # (Auto) 0.4 0.0-1.0 10^3/uL Eosinophils # (Auto) 0.0 0.0-0.3 10^3/uL Basophils # (Auto) 0.1 0.0-0.1 10^3/uL Immature Granulocyte # (Auto) 0.1 0.0-0.1 10^3/uL Neutrophils % (Manual) 90 % Lymphocytes % (Manual) 1 % Monocytes % (Manual) 1 % Eosinophils % (Manual) 0 % Basophils % (Manual) 0 % Band Neutrophils 8 % Polychromasia SLIGHT Anisocytosis SLIGHT Macrocytosis SLIGHT Prothrombin Time 14.6 12.2-14.7 SEC INR Comment 1.1 0.8-1.4 Activated Partial Thromboplast Time 40 H 24-35 SEC D-Dimer 3.62 H 0.00-0.49 UG/ML Sodium Level 134 L 135-145 MMOL/L Potassium Level 4.1 3.6-5.0 MMOL/L Chloride Level 100 98-107 MMOL/L Carbon Dioxide Level 24 21-32 MMOL/L Anion Gap 10 5-14 MMOL/L Blood Urea Nitrogen 20 H 7-18 MG/DL Creatinine 0.89 0.60-1.30 MG/DL Estimat Glomerular Filtration Rate 82 BUN/Creatinine Ratio 22 Glucose Level 185 H 70-105 MG/DL Lactic Acid Level 1.83 0.50-2.00 MMOL/L Calcium Level 9.3 8.5-10.1 MG/DL Corrected Calcium 10.0 8.5-10.1 MG/DL Total Bilirubin 1.4 H 0.1-1.0 MG/DL Aspartate Amino Transf (AST/SGOT) 29 5-34 U/L Alanine Aminotransferase (ALT/SGPT) 35 0-55 U/L Alkaline Phosphatase 86 40-136 U/L C-Reactive Protein High Sensitivity 15.21 H 0.00-0.50 MG/DL B-Type Natriuretic Peptide 62.6 <100.0 PG/ML Total Protein 6.5 6.4-8.2 GM/DL Albumin 3.1 L 3.2-4.5 GM/DL Procalcitonin 0.91 H <0.10 NG/ML Blood Gas Puncture Site RR Blood Gas Patient Temperature 100.5 Arterial Blood pH 7.43 7.37-7.43 Arterial Blood Partial Pressure CO2 40 35-45 MMHG Arterial Blood Partial Pressure O2 120 H 79-93 MMHG Arterial Blood HCO3 26 23-27 MMOL/L Arterial Blood Total CO2 26.9 21.0-31.0 MMOL/L Arterial Blood Oxygen Saturation 98 94-100 % Arterial Blood Base Excess 2.0 -2.5-2.5 MMOL/L Kamlesh Test YES-POS Blood Gas Ventilator Setting NO Blood Gas Inspired Oxygen 15L Urine Color YELLOW Urine Clarity CLOUDY H Urine pH 5.0 5-9 Urine Specific [place] 1.020 1.016-1.022 Urine Protein 1+ H NEGATIVE Urine Glucose (UA) NEGATIVE NEGATIVE Urine Ketones 2+ H NEGATIVE Urine Nitrite NEGATIVE NEGATIVE Urine Bilirubin 1+ H NEGATIVE Urine Urobilinogen 1.0 < = 1.0 MG/DL Urine Leukocyte Esterase 3+ H NEGATIVE Urine RBC (Auto) 2+ H NEGATIVE Urine RBC 5-10 H /HPF Urine WBC >100 H /HPF Urine Squamous Epithelial Cells NONE /HPF Urine Crystals PRESENT H /LPF Urine Calcium Oxalate Crystals FEW H /LPF Urine Bacteria LARGE H /HPF Urine Casts NONE /LPF Urine Mucus SMALL H /LPF Urine Culture Indicated YES My Orders Orders - DENISE RICHMOND MD Arterial Blood Gas (01/29/21 15:03) Covid 19 Inhouse Test (01/29/21 15:17) Influenza A And B By Pcr (01/29/21 15:17) Cbc With Automated Diff (01/29/21 15:19) Comprehensive Metabolic Panel (01/29/21 15:19) Blood Culture (01/29/21 15:19) Sputum Culture (01/29/21 15:19) Urinalysis (01/29/21 15:19) Urine Culture (01/29/21 15:19) Protime With Inr (01/29/21 15:19) Partial Thromboplastin Time (01/29/21 15:19) Chest 1 View, Ap/Pa Only (01/29/21 15:19) Ed Iv/Invasive Line Start (01/29/21 15:19) Ed Iv/Invasive Line Start (01/29/21 15:19) Vital Signs Adult Sepsis Patie Q15M (01/29/21 15:19) O2 (01/29/21 15:19) Remove Rings In Anticipation O (01/29/21 15:19) Lactic Acid Analyzer (01/29/21 15:19) Acetaminophen Tablet (Tylenol Tablet) (01/29/21 15:30) Manual Differential (01/29/21 14:30) Urine Culture (01/29/21 15:35) Cefepime Injection (Maxipime Injection) (01/29/21 16:15) BNP (01/29/21 16:22) Hs C Reactive Protein (01/29/21 16:24) Fibrin Degradation Products (01/29/21 16:24) Procalcitonin (Pct) (01/29/21 16:24) Ct Angio Chest W (01/29/21 17:25) Iohexol Injection (Omnipaque 350 Mg/Ml 1 (01/29/21 17:30) Received Contrast (Hold Metformin- Contr (01/29/21 17:30) Sodium Chloride Flush (Catheter Flush Sy (8/26/21 17:30) Ns (Ivpb) (Sodium Chloride 0.9% Ivpb Bag (01/29/21 17:30) Ns Iv 1000 Ml (Sodium Chloride 0.9%) (01/29/21 18:30) Medications Given in ED Current Medications Medications Dose Ordered Sig/Connor Route Start Time Stop Time Status Last Admin Dose Admin Acetaminophen 1,000 mg ONCE ONCE PO 01/29/21 15:30 01/29/21 15:31 DC 01/29/21 15:38 1,000 MG Cefepime HCl 2000 mg/Sterile Water 20 ml @ 240 mls/hr ONCE ONCE IV 01/29/21 16:15 01/29/21 16:19 DC 01/29/21 16:27 240 MLS/HR Iohexol 100 ml ONCE ONCE IV 01/29/21 17:30 01/29/21 17:31 DC 01/29/21 18:02 85 ML Sodium Chloride 10 ml NEEDED PRN IV 01/29/21 17:30 01/29/21 18:02 10 ML Sodium Chloride 100 ml ONCE ONCE IV 01/29/21 17:30 01/29/21 17:31 DC 01/29/21 18:02 80 ML Vital Signs/I&O 01/29/21 01/29/21 01/29/21 14:22 14:25 15:38 Temp 38.0 38.0 Pulse 81 Resp 20 B/P (MAP) 106/64 (78) Pulse Ox 92 O2 Delivery OxyMask OxyMask O2 Flow Rate 15.00 FiO2 92 Capillary Refill : Blood Pressure Mean: 78 Progress Note #1: Time: 17:45 Progress Note Patient was not maintaining his oxygen saturations well enough on nasal cannula alone. He stated the CPAP has caused him problems in the past. Therefore Vapotherm was applied with good results. The cause of his hypoxia is uncertain. By my interpretation he appeared to have some basilar infiltrates as well as crackles in the bases on exam. However, his x-ray read did not indicate infiltrates. Further evaluation for causes of hypoxia were pursued with D-dimer which was notably elevated. CT angiogram of the chest is pending. Sepsis from a UTI and/or pneumonia is suspected as the source of his fever. Cefepime was administered for initial antibiotic therapy. Progress Note #2: Time: 18:34 Progress Note Patient is feeling improved and is stable. CT angiogram was negative for PE but does suggest pneumonia. I discussed CODE STATUS with patient. He wishes to remain full code but does not want long-term life support. Diagnostic Imaging Diagonstic Imaging: Xray Plain Films/CT/US/NM/MRI: chest Comments Chest x-ray viewed by me and report reviewed. See report below: NAME: DIANDRA VO [facility] REC#: [id number] PT STATUS: REG ER : 1940 PHYSICIAN: DENISE RICHMOND MD ADMIT DATE: 01/29/21/ER Signed Date of Exam:01/29/21 CHEST 1 VIEW, AP/PA ONLY INDICATION: Short of air. FINDINGS: Single view of the chest is somewhat underpenetrated. There is mild cardiomegaly with no failure. No infiltrates or effusions are seen. There is no effusion or pneumothorax. IMPRESSION: No acute abnormality is evident, but the lung bases are underpenetrated. If symptoms persist and if further evaluation is felt necessary, PA and lateral chest in the radiology department would be helpful for better evaluation. Dictated by: Dictated on workstation # [id number] Dict: 01/29/21 1622 Trans: 01/29/21 1644 [id number] Interpreted by: JESSICA RIGGINS MD Electronically signed by: JESSICA RIGGINS MD 01/29/21 1644 Diagonstic Imaging: CT Plain Films/CT/US/NM/MRI: chest Comments CT angiogram chest viewed by me and report reviewed. See report below: NAME: DIANDRA VO [facility] REC#: [id number] PT STATUS: REG ER : 1940 PHYSICIAN: DENISE RICHMNOD MD ADMIT DATE: 01/29/21/ER Signed Date of Exam:01/29/21 CT ANGIO CHEST W PROCEDURE: CT angiography of the chest with contrast. TECHNIQUE: Multiple contiguous axial images were obtained through the chest after uneventful bolus administration of intravenous contrast. 3D reconstructed CTA MIP acquisitions were also performed. Auto Exposure Controls were utilized during the CT exam to meet ALARA standards for radiation dose reduction. INDICATION: Sepsis and dyspnea. There is good opacification of pulmonary arteries without intraluminal filling defect identified. Coarse predominantly peripheral infiltrates are present in both lungs with mild bilateral pleural fluid. There are prominent mediastinal lymph nodes which have increased in size when compared to study of 05/23/2018. There is atherosclerotic calcification involving the thoracic aorta and coronary arteries. Calcified granulomas are seen in the spleen. IMPRESSION: Coarse bilateral peripheral infiltrates and developing mediastinal adenopathy which have increased since study of 05/23/2018. There is no CTA evidence of pulmonary embolism or other acute thoracic vessel abnormality. Dictated by: Dictated on workstation # [id number] Dict: 01/29/21 180 Trans: 01/29/211824 [facility] [id number] Interpreted by: CAMILO PULLIAM MD Electronically signed by: CAMILO PULLIAM MD 01/29/215 Departure Communication (Admissions) Time/Spoke to Admitting Phy: 16:45 Dr. Tse Impression Primary Impression: Sepsis Qualified Codes: A41.9 - Sepsis, unspecified organism Additional Impressions: Hypoxia Urinary tract infection Qualified Codes: N39.0 - Urinary tract infection, site not specified Disposition: ADMITTED INPATIENT Condition: Improved Admissions Decision to Admit Reason: Admit from ER (General) Decision to Admit/Date: Jan 29, 2021 Time/Decision to Admit Time: 15:19 Departure-Patient Inst. Referrals: BRIDGETT GUEVARA MD (PCP/Family) Primary Care Physician DENISE RICHMOND MD Jan 29, 2021 17:21
[2021-01-29] MEDS ORDERED: IOHEXOL 350 MG/ML 100 ML (OMNIPAQUE 350) VIAL IV ONE (17:30)
[2021-01-29] MEDS ORDERED: NS 100 ML (IVPB) BAG IV ONE (17:30)
[2021-01-29] MEDS ORDERED: CATHETER FLUSH 10 ML SYR IV PRN (17:30)
[2021-01-29] MEDS ORDERED: HOLD METFORMIN - RECEIVED CONTRAST 20 ML VIAL IV SCH (17:30)
--- NOTE | 2021-01-29 18:08 | Diagnostic Imaging Report ---
PROCEDURE: CT angiography of the chest with contrast. TECHNIQUE: Multiple contiguous axial images were obtained through the chest after uneventful bolus administration of intravenous contrast. 3D reconstructed CTA MIP acquisitions were also performed. Auto Exposure Controls were utilized during the CT exam to meet ALARA standards for radiation dose reduction. INDICATION: Sepsis and dyspnea. There is good opacification of pulmonary arteries without intraluminal filling defect identified. Coarse predominantly peripheral infiltrates are present in both lungs with mild bilateral pleural fluid. There are prominent mediastinal lymph nodes which have increased in size when compared to study of 05/23/2018. There is atherosclerotic calcification involving the thoracic aorta and coronary arteries. Calcified granulomas are seen in the spleen. IMPRESSION: Coarse bilateral peripheral infiltrates and developing mediastinal adenopathy which have increased since study of 05/23/2018. There is no CTA evidence of pulmonary embolism or other acute thoracic vessel abnormality. Dictated by: Dictated on workstation # [id number]
[2021-01-29] MEDS ORDERED: NS IV 1000 ML 1,000 ML IV SCH (18:30)
[2021-01-29 20:00] VITALS: BP 118/66
[2021-01-29] MEDS ORDERED: ONDANSETRON 4 MG/2 ML (SDV) Z0FRAN IVP PRN (20:30)
[2021-01-29] MEDS ORDERED: ACETAMINOPHEN 500 MG TAB (TYLENOL) PO PRN (20:30)
[2021-01-29] MEDS ORDERED: VANCOMYCIN 2000 MG/NS 500 ML IVPB IV NR ×2 (21:00)
[2021-01-29] MEDS: LACTATED RINGERS 1,000 ML IV SCH (21:03)
[2021-01-29] MEDS: ENOXAPARIN 40 MG/0.4 ML (LOVENOX) SYR SC SCH (21:03)
[2021-01-29 21:05] VITALS: BP 106/64
[2021-01-29] MEDS ORDERED: RT-ALBUTEROL SULF 2.5 MG/3 ML PRE-MIX VIAL INH PRN (21:30)
[2021-01-29 23:30] VITALS: BP 92/55
[2021-01-29] MEDS: CEFEPIME INJECTION 2,000 MG in WATER (STERILE) FOR INJECTION 20 ML IV SCH (23:52)
[2021-01-30] MEDS ORDERED: CRAN1CAP5 PO (01:28)
[2021-01-30] MEDS ORDERED: MELA1TAB20 PO (01:29)
[2021-01-30] MEDS ORDERED: NITR-68 PO (01:32)
[2021-01-30] MEDS ORDERED: TRAM50TA3 PO (01:38)
[2021-01-30] MEDS ORDERED: NITR100C PO (01:40)
[2021-01-30] MEDS ORDERED: SENN-274 PO (01:49)
[2021-01-30] MEDS ORDERED: FURO40TA4 PO (02:01)
[2021-01-30] MEDS ORDERED: POTA10CA43 PO (02:03)
[2021-01-30] MEDS ORDERED: ASPI81TA16 PO (02:22)
[2021-01-30 03:53] VITALS: BP 110/68
[2021-01-30 05:38] LABS: BASOPHILS # (AUTO) 0.1 10^3/uL (0.0-0.1); BASOPHILS % (AUTO) 1 % (0-10); EOSINOPHILS # (AUTO) 0.4 10^3/uL (0.0-0.3); EOSINOPHILS % (AUTO) 4 % (0-10); HEMATOCRIT 38 % (40-54); HEMOGLOBIN 11.8 g/dL (13.3-17.7); LYMPHOCYTES # (AUTO) 0.6 10^3/uL (1.0-4.0); LYMPHOCYTES % (AUTO) 6 % (12-44); MEAN CORPUSCULAR HEMOGLOBIN 27 pg (25-34); MEAN CORPUSCULAR HGB CONC 31 g/dL (32-36); MEAN CORPUSCULAR VOLUME 88 fL (80-99); MEAN PLATELET VOLUME 11.4 fL (9.0-12.2); MONOCYTES # (AUTO) 0.4 10^3/uL (0.0-1.0); MONOCYTES % (AUTO) 4 % (0-12); NEUTROPHILS # (AUTO) 8.8 10^3/uL (1.8-7.8); NEUTROPHILS % (AUTO) 85 % (42-75); PLATELET COUNT 171 10^3/uL (130-400); WHITE BLOOD COUNT 10.3 10^3/uL (4.3-11.0)
[2021-01-30 05:55] LABS: POTASSIUM 4.1 MMOL/L (3.6-5.0)
[2021-01-30 05:56] LABS: CALCIUM 8.7 MG/DL (8.5-10.1)
[2021-01-30 06:00] LABS: CREATININE SERUM 0.74 MG/DL (0.60-1.30)
[2021-01-30] MEDS: LACTATED RINGERS 1,000 ML IV SCH ×3 (06:30→23:35)
--- NOTE | 2021-01-30 06:41 | Diagnostic Imaging Report ---
Reason for examination: Sepsis and pneumonia. Upright AP portable chest was obtained and compared to yesterday. Cardiomediastinal silhouette is unchanged. Worsening bilateral basilar predominant pulmonary infiltrates. No effusions, cavitation or pneumothorax. IMPRESSION: 1. Bilateral basilar predominant pulmonary infiltrates which are worse than yesterday. Dictated by: Dictated on workstation # [id number]
[2021-01-30 08:00] VITALS: BP 106/67
[2021-01-30] MEDS: VANCOMYCIN 1,750 MG/NS 500 ML IVPB IV SCH ×4 (09:34→20:59)
--- NOTE | 2021-01-30 11:03 | History & Physical-Hospitalist ---
History of Present Illness HPI/Chief Complaint Pt is an 80yoCM with a PMH of CAD, hypothyroidism, recurrent UTIs with subsequent SPT, HLD who presented to the ER due to hypoxia. He states he has been sick for a few days with the chills. He is unsure if he has had a fever. He was tested at home by [facility] for COVID and was negative but continued to feel poorly. He checked his oxygen saturations and they were 77%. He called Dr Bach for oxygen and Dr Bach recommended he seek evaluation in the ER. He was found to have bilateral pneumonia and was admitted for IV abx and hypoxia as he was requiring Vapotherm. He reports feeling better today but is worried because he heard his CXR looks worse. Source: patient Date Seen 01/30/21 Time Seen by a Provider: 11:02 Attending Physician Lizandro Tse MD PCP Mirza Bach MD Referring Physician Date of Admission Jan 29, 2021 at 18:30 Home Medications & Allergies Home Medications Reviewed patient Home Medication Reconciliation performed by pharmacy medication reconciliations event technician and/or nursing. Patients Allergies have been reviewed. Allergies Allergies Coded Allergies Sulfa (Sulfonamide Antibiotics) (Verified Allergy, Intermediate, RASH, CHILLS, 07/10/19) Past Egclvdo-Odfgzr-Iwfnph Hx Patient Social History Marrital Status: Employed/Student: retired Tobacco Use?: No Smoking Status: Former Smoker Substance use?: No Alcohol Use?: No Pt feels they are or have been: No Immunizations Up To Date Date of Influenza Vaccine: Mar 31, 2019 First/Initial COVID19 Vaccinat: 06/2020 Second COVID19 Vaccination Luis: 07/2020 Date of Pneumonia Vaccine: Mar 31, 2019 Seasonal Allergies Seasonal Allergies: No Current Status Advance Directives: No Communicates: Verbally Primary Language: Frisian Preferred Spoken Language: Frisian Is interpretation needed?: No Implanted or Applied Medical D: Stents Past Medical History Surgeries: Abdominal, Appendectomy, Gallbladder, Orthopedic Sleep Apnea Currently Using CPAP: No Currently Using BIPAP: No Chronic Edema/Swelling, Coronary Artery Disease, Heart Attack, Heart Murmur, High Cholesterol, Hypertension Neuropathy Sexually Transmitted Disease: No HIV/AIDS: No Benign Prostatic Hyperpl, Bladder Infection, Kidney Stones, UTI-Chronic Gastroesophageal Reflux, Chronic Constipation Arthritis, Chronic Back Pain, Gout Diabetes, Non-Insulin dep Cataract Loss of Vision: Denies Hearing Impairment: Denies Blood Disorders: No Adverse Reaction/Blood Tranf: No Family Medical History Reviewed Nursing Family Hx Alcoholism 19 FATHER Completed stroke 19 MOTHER Diabetes mellitus 19 MOTHER G8 SISTER FH: pancreatic cancer G8 BROTHER Review of Systems Constitutional: chills; No fever; malaise Respiratory: No cough; short of breath Cardiovascular: no symptoms reported Gastrointestinal: No abdominal pain, No constipation, No diarrhea, No nausea, No vomiting Genitourinary: no symptoms reported Musculoskeletal: no symptoms reported Skin: no symptoms reported Psychiatric/Neurological: No Symptoms Reported Physical Exam Physical Exam Vital Signs Vital Signs - First Documented 01/29/21 01/29/21 14:22 14:25 Temp 38.0 Pulse 81 Resp 20 B/P (MAP) 106/64 (78) Pulse Ox 92 O2 Delivery OxyMask O2 Flow Rate 15.00 FiO2 92 Capillary Refill : Height, Weight, BMI Height: 5'11.00" Weight: 282lbs. 0.0oz. 127.208852yf; 37.03 BMI Method:Stated General Appearance: No Apparent Distress, Chronically ill, Obese HEENT: PERRL/EOMI, Moist Mucous Membranes; No Scleral Icterus (L), No Scleral Icterus (R) Neck: Normal Inspection, Supple Respiratory: No Accessory Muscle Use, Decreased Breath Sounds, Other (on vapotherm) Cardiovascular: Regular Rate, Rhythm, Systolic Murmur Gastrointestinal: Normal Bowel Sounds, Non Tender, Soft Extremity: Normal Capillary Refill, No Calf Tenderness, No Pedal Edema Neurologic/Psychiatric: Alert, Oriented x3 Results Results/Procedures Labs Laboratory Tests 01/29/21 14:30 01/30/21 05:15 01/31/21 05:27 Patient resulted labs reviewed. Imaging: Reviewed Imaging Report Imaging [facility], [place] NAME: DIANDRA VO [facility] REC#: [id number] PT STATUS: REG ER : 1940 PHYSICIAN: DENISE RICHMOND MD ADMIT DATE: 01/29/21/ER Signed Date of Exam:01/29/21 CHEST 1 VIEW, AP/PA ONLY INDICATION: Short of air. FINDINGS: Single view of the chest is somewhat underpenetrated. There is mild cardiomegaly with no failure. No infiltrates or effusions are seen. There is no effusion or pneumothorax. IMPRESSION: No acute abnormality is evident, but the lung bases are underpenetrated. If symptoms persist and if further evaluation is felt necessary, PA and lateral chest in the radiology department would be helpful for better evaluation. Dictated by: Dictated on workstation # [id number] Dict: 01/29/21 1622 Trans: 01/29/21 1644 [id number] Interpreted by: JESSICA RIGGINS MD Electronically signed by: JESSICA RIGGINS MD 01/29/21 1644 [facility] [place], [place] NAME: DIANDRA VO [facility] REC#: [id number] PT STATUS: REG ER : 1940 PHYSICIAN: DENISE RICHMOND MD ADMIT DATE: 01/29/21/ER Signed Date of Exam:01/29/21 CT ANGIO CHEST W PROCEDURE: CT angiography of the chest with contrast. TECHNIQUE: Multiple contiguous axial images were obtained through the chest after uneventful bolus administration of intravenous contrast. 3D reconstructed CTA MIP acquisitions were also performed. Auto Exposure Controls were utilized during the CT exam to meet ALARA standards for radiation dose reduction. INDICATION: Sepsis and dyspnea. There is good opacification of pulmonary arteries without intraluminal filling defect identified. Coarse predominantly peripheral infiltrates are present in both lungs with mild bilateral pleural fluid. There are prominent mediastinal lymph nodes which have increased in size when compared to study of 05/23/2018. There is atherosclerotic calcification involving the thoracic aorta and coronary arteries. Calcified granulomas are seen in the spleen. IMPRESSION: Coarse bilateral peripheral infiltrates and developing mediastinal adenopathy which have increased since study of 05/23/2018. There is no CTA evidence of pulmonary embolism or other acute thoracic vessel abnormality. Dictated by: Dictated on workstation # [id number] Dict: 01/29/21 180 Trans: 01/29/21 1825 [facility] [id number] Interpreted by: CAMILO PULLIAM MD Electronically signed by: CAMILO PULLIAM MD 01/29/21 1825 Assessment/Plan Admission Diagnosis Sepsis due to PNA Admission Status: Inpatient Order (span 2 midnights) Reason for Inpatient Admission: see below Assessment and Plan Sepsis due to PNA UTI BPH s/p SPT Continue on IV abx Vapotherm, wean as able Await cultures Leukocytosis improved Doing better, will DC fluids if he eats well today CAD HTN Aortic stenosis HLD Continue home meds Hypothyroidism Continue home meds DVT ppx: Lovenox Diagnosis/Problems Diagnosis/Problems (1) Sepsis Status: Acute Qualifiers: Sepsis type: sepsis due to unspecified organism Sepsis acute organ dysfunction status: unspecified Qualified Codes: A41.9 - Sepsis, unspecified organism (2) Urinary tract infection Status: Acute Qualifiers: Urinary tract infection type: site unspecified Hematuria presence: without hematuria Qualified Codes: N39.0 - Urinary tract infection, site not specified (3) Hypothyroidism Status: Chronic (4) T2DM (type 2 diabetes mellitus) Status: Chronic (5) Urinary retention due to benign prostatic hyperplasia Status: Acute (6) Systolic murmur Status: Chronic (7) CAD (coronary artery disease) Status: Chronic LIZANDRO TSE MD Jan 30, 2021 11:03
[2021-01-30] MEDS: CEFEPIME INJECTION 2,000 MG in WATER (STERILE) FOR INJECTION 20 ML IV SCH ×2 (11:48→23:35)
[2021-01-30] MEDS ORDERED: FESO4TAB PO (11:52)
[2021-01-30] MEDS ORDERED: MELA10TA7 PO (11:52)
[2021-01-30] MEDS ORDERED: ASCO-262 PO (12:00)
[2021-01-30 12:04] VITALS: BP 100/61
[2021-01-30] MEDS ORDERED: NON-FORMULARY MEDICATION 1 EA EA (Melatonin 10 MG) PO PRN (13:45)
[2021-01-30 15:32] VITALS: BP 138/65
[2021-01-30] MEDS: PANTOPRAZOLE 40 MG (PROTONIX) TAB PO SCH (18:08)
[2021-01-30 19:17] VITALS: BP 113/58
[2021-01-30] MEDS: inSUlin ASPART (NovoLOG) 1 UNIT/0.01 ML (CHARGE PER UNIT) SC SCH (20:23)
[2021-01-30] MEDS ORDERED: NON-FORMULARY MEDICATION 1 EA EA (Duloxetine HCl 60 MG) PO SCH (21:00)
[2021-01-30] MEDS: PREGABALIN 150 MG (LYRICA) CAPSULE PO SCH (21:03)
[2021-01-30] MEDS: SENNA W/DOCUSATE (SENOKOT S) TABLET PO SCH (21:04)
[2021-01-30] MEDS: MELATONIN 10 MG TABLET PO PRN (21:04)
[2021-01-30] MEDS: DULoxetine 30 MG (CYMBALTA) CAP PO SCH (21:05)
[2021-01-30] MEDS: ENOXAPARIN 40 MG/0.4 ML (LOVENOX) SYR SC SCH (21:05)
[2021-01-31] VITALS (7 sets, daily range): BP systolic 101–126; BP diastolic 58–73
[2021-01-31] MEDS: inSUlin ASPART (NovoLOG) 1 UNIT/0.01 ML (CHARGE PER UNIT) SC SCH ×4 (05:14→20:30)
[2021-01-31 05:57] LABS: HEMATOCRIT 37 % (40-54); HEMOGLOBIN 11.5 g/dL (13.3-17.7); MEAN CORPUSCULAR HEMOGLOBIN 28 pg (25-34); MEAN CORPUSCULAR HGB CONC 31 g/dL (32-36); MEAN CORPUSCULAR VOLUME 89 fL (80-99); MEAN PLATELET VOLUME 11.5 fL (9.0-12.2); PLATELET COUNT 152 10^3/uL (130-400); WHITE BLOOD COUNT 8.4 10^3/uL (4.3-11.0)
[2021-01-31 06:13] LABS: POTASSIUM 3.7 MMOL/L (3.6-5.0)
[2021-01-31 06:15] LABS: CALCIUM 8.7 MG/DL (8.5-10.1)
[2021-01-31 06:19] LABS: CREATININE SERUM 0.65 MG/DL (0.60-1.30)
[2021-01-31] MEDS: LEVOTHYROXINE 50 MCG (LEVOTHROID) TAB PO SCH (06:56)
[2021-01-31] MEDS: LEVOTHYROXINE 100 MCG (LEVOTHROID) TAB PO SCH (06:56)
[2021-01-31] MEDS: VANCOMYCIN 1,750 MG/NS 500 ML IVPB IV SCH ×4 (08:04→20:29)
[2021-01-31] MEDS: PREGABALIN 150 MG (LYRICA) CAPSULE PO SCH ×2 (08:05→20:29)
[2021-01-31] MEDS: TOLTERODINE LA 2 MG (DETROL LA) CAP PO SCH (08:05)
[2021-01-31] MEDS: ASPIRIN E.C. 81 MG (ECOTRIN) TAB PO SCH (08:06)
[2021-01-31] MEDS: FUROSEMIDE 40 MG (LASIX) TAB PO SCH (08:06)
[2021-01-31] MEDS: SENNA W/DOCUSATE (SENOKOT S) TABLET PO SCH ×2 (08:06→20:29)
[2021-01-31] MEDS ORDERED: NON-FORMULARY MEDICATION 1 EA EA (Levothyroxine Sodium (Synthroid) 200 MCG) PO SCH (09:00)
--- NOTE | 2021-01-31 10:39 | Progress Note - Hospitalist ---
Subjective HPI/CC On Admission Date Seen by Provider: Jan 31, 2021 Time Seen by Provider: 10:36 Pt is an 80yoCM with a PMH of CAD, hypothyroidism, recurrent UTIs with subsequent SPT, HLD who presented to the ER due to hypoxia. He states he has been sick for a few days with the chills. He is unsure if he has had a fever. He was tested at home by [facility] for COVID and was negative but continued to feel poorly. He checked his oxygen saturations and they were 77%. He called Dr Bach for oxygen and Dr Bach recommended he seek evaluation in the ER. He was found to have bilateral pneumonia and was admitted for IV abx and hypoxia as he was requiring Vapotherm. He reports feeling better today but is worried because he heard his CXR looks worse. Subjective/Events-last exam Patient reports feeling more congested today. Has been coughing up some sputum. Discussed that we would collect this and sent for culture. Otherwise no complaints. Focused Exam Lactate Level 01/29/21 14:30: Lactic Acid Level 1.83 Objective Exam Vital Signs Vital Signs Date Time Temp Pulse Resp B/P (MAP) Pulse Ox O2 Delivery O2 Flow Rate FiO2 01/31/21 09:38 91 Vapotherm 85 01/31/21 08:00 35.00 01/31/21 08:00 36.6 73 20 125/73 (90) Capillary Refill : General Appearance: No Apparent Distress, Chronically ill, Obese Respiratory: No Accessory Muscle Use, Decreased Breath Sounds, Other (on vapotherm) Cardiovascular: Regular Rate, Rhythm, Systolic Murmur Neurologic/Psychiatric: Alert, Oriented x3 Results/Procedures Lab Laboratory Tests 01/31/21 05:27 Patient resulted labs reviewed. Imaging: Reviewed Imaging Report Assessment/Plan Assessment and Plan Assess & Plan/Chief Complaint Sepsis due to PNA UTI BPH s/p SPT Continue on IV abx Vapotherm, wean as able Blood cultures negative, urine culture with gram negative bacillus, await sputum cultures Add mucinex MAT protocol IS Leukocytosis improved Doing better, will DC fluids CAD HTN Aortic stenosis HLD Continue home meds Hypothyroidism Continue home meds DVT ppx: Lovenox Diagnosis/Problems Diagnosis/Problems (1) Sepsis Status: Acute Qualifiers: Sepsis type: sepsis due to unspecified organism Sepsis acute organ dysfunction status: unspecified Qualified Codes: A41.9 - Sepsis, unspecified organism (2) Urinary tract infection Status: Acute Qualifiers: Urinary tract infection type: site unspecified Hematuria presence: without hematuria Qualified Codes: N39.0 - Urinary tract infection, site not specified (3) Hypothyroidism Status: Chronic (4) T2DM (type 2 diabetes mellitus) Status: Chronic (5) Urinary retention due to benign prostatic hyperplasia Status: Acute (6) Systolic murmur Status: Chronic (7) CAD (coronary artery disease) Status: Chronic LIZANDRO LENTZ MD Jan 31, 2021 10:39
[2021-01-31] MEDS: CEFEPIME INJECTION 2,000 MG in WATER (STERILE) FOR INJECTION 20 ML IV SCH ×2 (10:43→22:37)
[2021-01-31] MEDS ORDERED: guaiFENesin (MUCINEX) 600 MG TAB PO NR (11:00)
--- NOTE | 2021-01-31 12:01 | Physical Therapy Evaluation ---
PT Evaluation-General Medical Diagnosis Admission Date Jan 29, 2021 at 18:30 Medical Diagnosis: Sepsis Onset Date: Jan 31, 2021 Therapy Diagnosis Therapy Diagnosis: difficulty walking Height/Weight Height (Feet): 5 Height (Inches): 11.00 Weight (Pounds): 282 Weight (Ounces): 0.0 Precautions Precautions/Isolations: Fall Prevention, Standard Precautions Weight Bear Status Full Weight Bearing Full Weight Bearing Referral Physician: Neda Reason for Referral: Evaluation/Treatment Medical History Pertinent Medical History: CAD, DM, HTN Social History Home: Multilevel Current Living Status: Spouse Entry Into Home: Ramp PT Steps Into Home: 0 PT Steps Inside Home: 0 Prior Prior Level of Function SCALE: Activities may be completed with or without assistive devices. 7-Cqnbvvaggc-zabwymq completes the activity by him/herself with no assistance from a helper. 5-Set-up or Clean-up Assistance-helper sets up or cleans up; patient completes activity. [place] assists only prior to or following the activity. 4-Supervision or Touching Assistance-helper provides verbal cues and/or touching/steadying and/or contact guard assistance as patient completes activity. Assistance may be provided throughout the activity or intermittently. 3-Partial/Moderate Assistance-helper does LESS THAN HALF the effort. [place] lifts, holds or supports trunk or limbs, but provides less than half the effort. 2-Substantial/Maximal Assistance-helper does MORE THAN HALF the effort. [place] lifts or holds trunk or limbs and provides more than half the effort. 7-Mpajhwhoa-uinswi does ALL the effort. Patient does none of the effort to complete the activity. Or, the assistance of 2 or more helpers is required for the patient to complete the activity. If activity was not attempted, code reason: 7-Patient Refused. 9-Not Applicable-not attempted and the patient did not perform the activity before the current illness, exacerbation or injury. 10-Not Attempted due to Environmental Limitations-(lack of equipment, weather restraints, etc.). 88-Not Attempted due to Medical Conditions or Safety Concerns. Bed Mobility: 6 Transfers (B,C,W/C): 6 Gait: 6 Indoor Mobility (Ambulation): Independent Stairs: Not Applicalbe Prior Devices Use: Motorized wheelchair, Walker PT Evaluation-Current Subjective States that he will try to stand up. States that his legs are really weak but he will try to stand. Objective Patient Orientation: Person, Place, Time, Situation ROM/Strength Strength Upper Extremities 3+/5 grossly Strength Lower Extremities 3+/5 grossly Transfers Roll Left to Right (QC): 3 Sit to Lying (QC): 3 Lying to Sitting/Side of Bed(Q: 3 Sit to Stand (QC): 3 Gait Does the Patient Walk?: Yes Mode of Locomotion: Both Anticipated Mode of Locomotion: Both Walk 10 feet (QC): 88 Walk 50 ft with 2 Turns(QC): 88 Walk 150 ft (QC): 88 Distance: 1' sidesteps Gait Assistive Device: FWW Balance Sitting Static: Good Sitting Dynamic: Fair Standing Static: Poor Standing Dynamic: Poor Assessment/Needs 80 y.o. male with a diagnosis of sepsis. He has significant functional mobility limitations secondary to weakness and endurance limitations. He should do well w ith skilled therapy. Rehab Potential: Good PT Short Term Goals Short Term Goals Time Frame: Feb 07, 2021 Roll Left & Right: 4 Sit to lyin Lying to sitting on side of be: 4 Sit to stand: 4 Chair/xtv-hy-plbzo transfer: 4 Toilet transfer: 4 Walk 10 feet: 4 PT Date Pitter Goals Halfway Goals PT Halfway Goals Time Frame: Feb 14, 2021 Roll Left & Right (QC): 6 Sit to Lying (QC): 6 Lying-Sitting on Side/Bed(QC): 6 Sit to Stand (QC): 6 Chair/Ryr-yq-Ullvy Xfer(QC): 6 Toilet Transfer (QC): 6 Does the Patient Walk: Yes Walk 10 feet (QC): 5 Walk 50ft with 2 Turns (QC): 5 PT Plan Problem List Problem List: Activity Tolerance, Functional Strength, Safety, Balance, Gait, Transfer, Bed Mobility, ROM Treatment/Plan Treatment Plan: Continue Plan of Care Treatment Duration: Feb 14, 2021 Frequency: 11 times per week Time/GCodes Time In: 1140 Time Out: 1155 Total Billed Treatment Time: 15 Total Billed Treatment 1, EV low complexity x 15' MILLA MCGRATH PT Jan 31, 2021 12:01
[2021-01-31] MEDS: PANTOPRAZOLE 40 MG (PROTONIX) TAB PO SCH (17:24)
[2021-01-31] MEDS ORDERED: CHLORASEPTIC LOZENGE MM PRN (19:15)
[2021-01-31] MEDS: guaiFENesin (MUCINEX) 600 MG TAB PO SCH (20:29)
[2021-01-31] MEDS: MELATONIN 10 MG TABLET PO PRN (20:29)
[2021-01-31] MEDS: DULoxetine 30 MG (CYMBALTA) CAP PO SCH (20:29)
[2021-01-31] MEDS: ENOXAPARIN 40 MG/0.4 ML (LOVENOX) SYR SC SCH (20:31)
[2021-02-01 03:50] VITALS: BP 133/66
[2021-02-01 05:19] LABS: HEMATOCRIT 38 % (40-54); HEMOGLOBIN 11.8 g/dL (13.3-17.7); MEAN CORPUSCULAR HEMOGLOBIN 27 pg (25-34); MEAN CORPUSCULAR HGB CONC 31 g/dL (32-36); MEAN CORPUSCULAR VOLUME 87 fL (80-99); MEAN PLATELET VOLUME 11.7 fL (9.0-12.2); PLATELET COUNT 171 10^3/uL (130-400); WHITE BLOOD COUNT 8.9 10^3/uL (4.3-11.0)
[2021-02-01] MEDS: inSUlin ASPART (NovoLOG) 1 UNIT/0.01 ML (CHARGE PER UNIT) SC SCH ×4 (05:45→21:16)
[2021-02-01 05:46] LABS: POTASSIUM 3.7 MMOL/L (3.6-5.0)
[2021-02-01 05:47] LABS: CALCIUM 8.8 MG/DL (8.5-10.1)
[2021-02-01 05:51] LABS: CREATININE SERUM 0.68 MG/DL (0.60-1.30)
[2021-02-01] MEDS: LEVOTHYROXINE 100 MCG (LEVOTHROID) TAB PO SCH (06:06)
[2021-02-01] MEDS: LEVOTHYROXINE 50 MCG (LEVOTHROID) TAB PO SCH (06:06)
[2021-02-01 08:00] VITALS: BP 122/75
[2021-02-01] MEDS: TOLTERODINE LA 2 MG (DETROL LA) CAP PO SCH (08:23)
[2021-02-01] MEDS: SENNA W/DOCUSATE (SENOKOT S) TABLET PO SCH ×2 (08:23→21:39)
[2021-02-01] MEDS: FUROSEMIDE 40 MG (LASIX) TAB PO SCH (08:23)
[2021-02-01] MEDS: PREGABALIN 150 MG (LYRICA) CAPSULE PO SCH ×2 (08:23→21:38)
[2021-02-01] MEDS: guaiFENesin (MUCINEX) 600 MG TAB PO SCH ×2 (08:24→21:39)
[2021-02-01] MEDS: ASPIRIN E.C. 81 MG (ECOTRIN) TAB PO SCH (08:24)
[2021-02-01] MEDS: VANCOMYCIN 1,750 MG/NS 500 ML IVPB IV SCH ×2 (08:25)
--- NOTE | 2021-02-01 10:33 | Progress Note - Hospitalist ---
Subjective HPI/CC On Admission Date Seen by Provider: Feb 01, 2021 Time Seen by Provider: 10:14 Pt is an 80yoCM with a PMH of CAD, hypothyroidism, recurrent UTIs with subsequent SPT, HLD who presented to the ER due to hypoxia. He states he has been sick for a few days with the chills. He is unsure if he has had a fever. He was tested at home by [facility] for COVID and was negative but continued to feel poorly. He checked his oxygen saturations and they were 77%. He called Dr Bach for oxygen and Dr Bach recommended he seek evaluation in the ER. He was found to have bilateral pneumonia and was admitted for IV abx and hypoxia as he was requiring Vapotherm. He reports feeling better today but is worried because he heard his CXR looks worse. Subjective/Events-last exam pt reports doing ok today. Breathing easier. Produced sputum sample while I was in the room. Focused Exam Lactate Level 01/29/21 14:30: Lactic Acid Level 1.83 Objective Exam Vital Signs Vital Signs Date Time Temp Pulse Resp B/P (MAP) Pulse Ox O2 Delivery O2 Flow Rate FiO2 02/01/21 08:00 93 Vapotherm 35.00 90 02/01/21 08:00 36.5 72 16 122/75 (91) Capillary Refill : General Appearance: No Apparent Distress, Chronically ill, Obese Respiratory: No Accessory Muscle Use, Decreased Breath Sounds, Other (on Vapotherm) Cardiovascular: Regular Rate, Rhythm, No Murmur Neurologic/Psychiatric: Alert, Oriented x3 Results/Procedures Lab Laboratory Tests 02/01/21 04:30 Patient resulted labs reviewed. Imaging: Reviewed Imaging Report Assessment/Plan Assessment and Plan Assess & Plan/Chief Complaint Sepsis due to PNA UTI BPH s/p SPT Continue on IV abx Vapotherm, wean as able Blood cultures negative, urine culture with pseudomonas, await sputum cultures Continue mucinex MAT protocol IS CAD HTN Aortic stenosis HLD Continue home meds Hypothyroidism Continue home meds DVT ppx: Lovenox Diagnosis/Problems Diagnosis/Problems (1) Sepsis Status: Acute Qualifiers: Sepsis type: sepsis due to unspecified organism Sepsis acute organ dysfunction status: unspecified Qualified Codes: A41.9 - Sepsis, unspecified organism (2) Urinary tract infection Status: Acute Qualifiers: Urinary tract infection type: site unspecified Hematuria presence: without hematuria Qualified Codes: N39.0 - Urinary tract infection, site not specified (3) Hypothyroidism Status: Chronic (4) T2DM (type 2 diabetes mellitus) Status: Chronic (5) Urinary retention due to benign prostatic hyperplasia Status: Acute (6) Systolic murmur Status: Chronic (7) CAD (coronary artery disease) Status: Chronic LIZANDRO LENTZ MD Feb 01, 2021 10:33
[2021-02-01 11:44] VITALS: BP 119/74
[2021-02-01] MEDS: CEFEPIME INJECTION 2,000 MG in WATER (STERILE) FOR INJECTION 20 ML IV SCH ×2 (12:01→22:01)
[2021-02-01 16:00] VITALS: BP 125/60
[2021-02-01] MEDS: PANTOPRAZOLE 40 MG (PROTONIX) TAB PO SCH (16:23)
[2021-02-01 20:00] VITALS: BP 116/56
[2021-02-01] MEDS: DULoxetine 30 MG (CYMBALTA) CAP PO SCH (21:39)
[2021-02-01] MEDS: ENOXAPARIN 40 MG/0.4 ML (LOVENOX) SYR SC SCH (21:39)
[2021-02-01 23:00] VITALS: BP 140/66
[2021-02-02] MEDS: MELATONIN 10 MG TABLET PO PRN (00:43)
[2021-02-02 03:42] VITALS: BP 129/63
[2021-02-02 04:51] LABS: HEMATOCRIT 39 % (40-54); HEMOGLOBIN 11.9 g/dL (13.3-17.7); MEAN CORPUSCULAR HEMOGLOBIN 27 pg (25-34); MEAN CORPUSCULAR HGB CONC 31 g/dL (32-36); MEAN CORPUSCULAR VOLUME 88 fL (80-99); PLATELET COUNT 168 10^3/uL (130-400); WHITE BLOOD COUNT 8.9 10^3/uL (4.3-11.0)
[2021-02-02 05:04] LABS: POTASSIUM 3.6 MMOL/L (3.6-5.0)
[2021-02-02 05:05] LABS: CALCIUM 8.7 MG/DL (8.5-10.1)
[2021-02-02 05:10] LABS: CREATININE SERUM 0.64 MG/DL (0.60-1.30)
[2021-02-02] MEDS: inSUlin ASPART (NovoLOG) 1 UNIT/0.01 ML (CHARGE PER UNIT) SC SCH ×4 (06:22→20:08)
[2021-02-02] MEDS: LEVOTHYROXINE 50 MCG (LEVOTHROID) TAB PO SCH (06:26)
[2021-02-02] MEDS: LEVOTHYROXINE 100 MCG (LEVOTHROID) TAB PO SCH (06:27)
[2021-02-02 08:00] VITALS: BP 127/66
[2021-02-02] MEDS: ASPIRIN E.C. 81 MG (ECOTRIN) TAB PO SCH (08:40)
[2021-02-02] MEDS: SENNA W/DOCUSATE (SENOKOT S) TABLET PO SCH ×2 (08:40→20:20)
[2021-02-02] MEDS: PREGABALIN 150 MG (LYRICA) CAPSULE PO SCH ×2 (08:40→20:20)
[2021-02-02] MEDS: guaiFENesin (MUCINEX) 600 MG TAB PO SCH ×2 (08:40→20:19)
[2021-02-02] MEDS: FUROSEMIDE 40 MG (LASIX) TAB PO SCH (08:40)
[2021-02-02] MEDS: TOLTERODINE LA 2 MG (DETROL LA) CAP PO SCH (08:40)
--- NOTE | 2021-02-02 10:20 | Physical Therapy Daily Note ---
PT Daily Note-Current Subjective Patient argued with this PT on treatment. He was demanding this PT use a slide board for a transfer. Was able to discuss with patient on this PT's technique. Patient agrees to PT. Mental Status Patient Orientation: Normal For Age Attachments: Oxygen (vapotherm) Transfers SCALE: Activities may be completed with or without assistive devices. 7-Qfqagxnsgy-mfuhurc completes the activity by him/herself with no assistance from a helper. 5-Set-up or Clean-up Assistance-helper sets up or cleans up; patient completes activity. [place] assists only prior to or following the activity. 4-Supervision or Touching Assistance-helper provides verbal cues and/or touching/steadying and/or contact guard assistance as patient completes activit y. Assistance may be provided throughout the activity or intermittently. 3-Partial/Moderate Assistance-helper does LESS THAN HALF the effort. [place] lifts, holds or supports trunk or limbs, but provides less than half the effort. 2-Substantial/Maximal Assistance-helper does MORE THAN HALF the effort. [place] lifts or holds trunk or limbs and provides more than half the effort. 3-Mqftunihq-jnkigx does ALL the effort. Patient does none of the effort to complete the activity. Or, the assistance of 2 or more helpers is required for the patient to complete the activity. If activity was not attempted, code reason: 7-Patient Refused. 9-Not Applicable-not attempted and the patient did not perform the activity before the current illness, exacerbation or injury. 10-Not Attempted due to Environmental Limitations-(lack of equipment, weather restraints, etc.). 88-Not Attempted due to Medical Conditions or Safety Concerns. Lying to Sitting/Side of Bed(Q: 2 Sit to Stand (QC): 4 Chair/Gzm-zc-Mwfvs Xfer(QC): 4 Weight Bearing Full Weight Bearing Full Weight Bearing Gait Training Does the Patient Walk?: Yes Distance: 5' Gait Assistive Device: FWW patient states he is in a w/c at home and ambulates short distances only Exercises Seated Therapy Exercises: Ankle pumps, Long arc quads, Hip flexion Seated Reps: 15 Assessment Patient tolerated treatment well and is up in hip chair to ensure safe sit to stand transfer to return to bed. PT Short Term Goals Short Term Goals Time Frame: Feb 07, 2021 Roll Left & Right: 4 Sit to lyin Lying to sitting on side of be: 4 Sit to stand: 4 Chair/ulh-la-rbchv transfer: 4 Toilet transfer: 4 Walk 10 feet: 4 PT Half-Way Goals Steamer G[employer] Goals PT Half-Way Goals Time Frame: Feb 14, 2021 Roll Left & Right (QC): 6 Sit to Lying (QC): 6 Lying-Sitting on Side/Bed(QC): 6 Sit to Stand (QC): 6 Chair/Nui-zc-Zaulj Xfer(QC): 6 Toilet Transfer (QC): 6 Does the Patient Walk: Yes Walk 10 feet (QC): 5 Walk 50ft with 2 Turns (QC): 5 PT Plan Treatment/Plan Treatment Plan: Continue Plan of Care Treatment Duration: Feb 14, 2021 Frequency: 11 times per week Time/GCodes Time In: 925 Time Out: 948 Total Billed Treatment Time: 23 Total Billed Treatment 1 visit FA 23 min CLAY HOLGUIN PT Feb 02, 2021 10:20
[2021-02-02 12:00] VITALS: BP 123/63
[2021-02-02] MEDS: CEFEPIME INJECTION 2,000 MG in WATER (STERILE) FOR INJECTION 20 ML IV SCH ×2 (12:06→23:24)
[2021-02-02 16:00] VITALS: BP 109/55
--- NOTE | 2021-02-02 16:16 | Progress Note - Hospitalist ---
Subjective HPI/CC On Admission Date Seen by Provider: Feb 02, 2021 Time Seen by Provider: 09:05 Pt is an 80yoCM with a PMH of CAD, hypothyroidism, recurrent UTIs with subsequent SPT, HLD who presented to the ER due to hypoxia. He states he has been sick for a few days with the chills. He is unsure if he has had a fever. He was tested at home by [facility] for COVID and was negative but continued to feel poorly. He checked his oxygen saturations and they were 77%. He called Dr Bach for oxygen and Dr Bach recommended he seek evaluation in the ER. He was found to have bilateral pneumonia and was admitted for IV abx and hypoxia as he was requiring Vapotherm. He reports feeling better today but is worried because he heard his CXR looks worse. Subjective/Events-last exam He is feeling about the same. He is feeling weak. He is feeling short of breath. Objective Exam Vital Signs Vital Signs Date Time Temp Pulse Resp B/P (MAP) Pulse Ox O2 Delivery O2 Flow Rate FiO2 02/02/21 14:47 93 Vapotherm 35.00 85 02/02/21 12:00 36.0 78 20 123/63 (83) Capillary Refill : General Appearance: No Apparent Distress, Chronically ill, Obese Respiratory: No Respiratory Distress, Decreased Breath Sounds, Other (Wearing Vapotherm) Cardiovascular: Regular Rate, Rhythm, Systolic Murmur Gastrointestinal: Normal Bowel Sounds, Non Tender, Soft Extremity: Normal Inspection, Non Tender, No Pedal Edema Neurologic/Psychiatric: Alert, Oriented x3, No Motor/Sensory Deficits, Normal Mood/Affect Skin: Normal Color, Warm/Dry Results/Procedures Lab Laboratory Tests 02/02/21 04:15 Patient resulted labs reviewed. Imaging: Reviewed Imaging Report Assessment/Plan Assessment and Plan Assess & Plan/Chief Complaint Sepsis due to PNA UTI BPH s/p SPT Acute respiratory failure with hypoxia Procal trending down Continue IV antibiotics Continue Vapotherm Blood cultures negative, urine culture with pseudomonas, await sputum cultures Continue mucinex MAT protocol IS BNP normal Continue Lasix Consult pulmonology Consult cardiology Repeat chest xray tomorrow CAD HTN Aortic stenosis HLD Hypothyroidism Continue home meds DVT ppx: Lovenox Diagnosis/Problems Diagnosis/Problems (1) Acute respiratory failure with hypoxia Status: Acute (2) Pneumonia Status: Acute (3) Pseudomonas urinary tract infection Status: Acute (4) Sepsis due to urinary tract infection Status: Acute (5) Severe aortic stenosis Status: Chronic NAREN MCMAHON MD Feb 02, 2021 16:16
[2021-02-02] MEDS: PANTOPRAZOLE 40 MG (PROTONIX) TAB PO SCH (16:29)
--- NOTE | 2021-02-02 17:30 | Pulmonary Consultation ---
History of Present Illness History of Present Illness Date Seen by Provider: Feb 02, 2021 Time Seen by Provider: 17:28 Date of Admission 80 yo M admitted for hypoxia and bilateral basilar PNA, sputum grew NRF, has sensitive pseudomonas in urine. On vapotherm 35 lpm/FiO2 85% with SpO2 in low 90's, serology for Covid and flu negative, initially WBC 15 has come down to 8 Started on IV cefepime, Allergies and Home Medications Allergies Coded Allergies: Sulfa (Sulfonamide Antibiotics) (Verified Allergy, Intermediate, RASH, CHILLS, 07/10/19) Home Medications Ascorbate Calcium 500 Mg Tablet, 500 MG PO DAILY, (Reported) Aspirin 81 Mg Tablet.dr, 81 MG PO DAILY, (Reported) Atorvastatin Calcium 40 Mg Tablet, 40 MG PO DAILY, (Reported) Calcium Carbonate 500 Mg Tablet, 500 MG PO 1700, (Reported) Cranberry Extract/Vit C 1 Each Capsule, 1 EACH PO BID, (Reported) Cyanocobalamin (Vitamin B-12) 2,500 Mcg Tablet, 2,500 MCG PO DAILY, (Reported) Duloxetine HCl 60 Mg Capsule.dr, 60 MG PO HS, (Reported) LAST FILLED 08-15-2020 #90/90 DAY SUPPLY Fesoterodine Fumarate 4 Mg Tab.sr.24h, 4 MG PO DAILY, (Reported) Furosemide 40 Mg Tablet, 40 MG PO DAILY, (Reported) Gluc Beckham/Chondro Beckham A/Vit C/Mn 1 Each Tablet, 1 TAB PO DAILY, (Reported) L.acidoph & Paracasei,B.lactis 1 Each Capsule, 1 EACH PO BID, (Reported) Levothyroxine Sodium 50 Mcg Tablet, 50 MCG PO DAILY, (Reported) TAKES 200MCG +50MCG Levothyroxine Sodium 200 Mcg Tablet, 200 MCG PO DAILY, (Reported) TAKES 200MCG +50MCG Melatonin 10 Mg Tab.rapdis, 10-20 MG PO HS PRN for SLEEP, (Reported) Metformin HCl 1,000 Mg Tab.er.24, 1,000 MG PO BID WITH MEALS, (Reported) Mv-Mn/FA/Lycopene/Lut/Hb#178 1 Each Tablet, 2 TAB PO DAILY, (Reported) Nitrofurantoin Macrocrystal 100 Mg Capsule, 100 MG PO 1700, (Reported) [place] 3 Polyunsat Fatty Acids 1,000 Mg Cap, 1,000 MG PO DAILY, (Reported) Pantoprazole Sodium 40 Mg Tablet.dr, 40 MG PO 1700, (Reported) Potassium Chloride 10 Meq Capsule.er, 10 MEQ PO DAILY, (Reported) Pregabalin 150 Mg Capsule, 150 MG PO BID, (Reported) Saw [place] Fruit 450 Mg Capsule, 2 CAP PO DAILY, (Reported) Sennosides/Docusate Sodium 1 Each Tablet, 2 TAB PO BID, (Reported) Tramadol HCl 50 Mg Tablet, 50 MG PO Q6H PRN for PAIN-MODERATE (5-7), (Reported) Zinc 50 Mg Tablet, 50 MG PO DAILY, (Reported) Past Medical/Social/Family Hx Patient Social History Marrital Status: Employed/Student: retired Tobacco Use?: No Smoking Status: Former Smoker Smokeless Tobacco Frequency: Former User Substance use?: No Alcohol Use?: No Pt stated abuse/neglect: No Immunizations Up To Date First/Initial COVID19 Vaccinat: 06/2020 Second COVID19 Vaccination Luis: 07/2020 Date of Pneumonia Vaccine: Mar 31, 2019 Current Status Advance Directives: No Communicates: Verbally Primary Language: Indonesian Preferred Spoken Language: Indonesian Is interpretation needed?: No Implanted or Applied Medical D: Stents Past Medical History CAD, hypothyroidism, UTI's/BPH, has had supra-pubic catheter placed aortic stenosis, not clear how severe, I can not find an echo report, Review of Systems Constitutional: see HPI EENTM: see HPI Respiratory: see HPI Cardiovascular: see HPI Gastrointestinal: see HPI Genitourinary: see HPI Musculoskeletal: see HPI Skin: see HPI Psychiatric/Neurological: See HPI Sepsis Event Evaluation Height, Weight, BMI Height: 5'11.00" Weight: 282lbs. 0.0oz. [id number]; 37.03 BMI Method:Stated Exam Exam Patient acknowledged, consented, and participated in this virtual visit which was conducted using real time audio/video Vital Signs Date Time Temp Pulse Resp B/P (MAP) Pulse Ox O2 Delivery O2 Flow Rate FiO2 02/02/21 16:00 35.8 75 18 109/55 (73) 92 Vapotherm 35.00 85.00 02/02/21 14:47 93 Vapotherm 35.00 85 02/02/21 12:00 36.0 78 20 123/63 (83) 97 Vapotherm 35.00 85.00 02/02/21 09:54 92 Vapotherm 35.00 85 02/02/21 08:00 Vapotherm 35.00 85 02/02/21 08:00 36.5 73 20 127/66 (86) 94 Vapotherm 35.00 85.00 02/02/21 07:05 93 Vapotherm 35.00 85 02/02/21 03:42 36.4 75 20 129/63 (85) 92 Vapotherm 35.00 85.00 02/01/21 23:00 36.4 71 22 140/66 (90) 96 Vapotherm 35.00 85.00 02/01/21 21:56 90 Vapotherm 35.00 85 02/01/21 20:00 93 Vapotherm 35.00 85 02/01/21 20:00 36.0 78 20 116/56 (76) 96 Vapotherm 35.00 85.00 I & O 02/02/21 07:00 Intake Total 2107.5 ml Output Total 2950 ml Balance -842.5 ml Height & Weight Height: 5'11.00" Weight: 282lbs. 0.0oz. 127.435366sj; 37.03 BMI Method:Stated General Appearance: No Apparent Distress, Chronically ill, Obese HEENT: PERRL/EOMI, Moist Mucous Membranes; No Scleral Icterus (L), No Scleral Icterus (R) Neck: Normal Inspection, Supple Respiratory: No Respiratory Distress, Decreased Breath Sounds, Other (Wearing Vapotherm) Cardiovascular: Regular Rate, Rhythm, Systolic Murmur, Other (loud systolic mumur, from ?) Capillary Refill: Greater Than 3 Seconds Peripheral Pulses: 1+ Dorsalis Pedis (R), 1+ Left Dors-Pedis (L) Extremity: Normal Inspection, Non Tender, No Pedal Edema Neurologic/Psychiatric: Alert, Oriented x3, No Motor/Sensory Deficits, Normal Mood/Affect Skin: Normal Color, Warm/Dry Results Lab Laboratory Tests 02/01/21 04:30 02/02/21 04:15 Assessment/Plan Assessment/Plan Bilateral PNA, appears to be responding to Rx, would continue Cefepime, Hopefully will be able to cut back on oxygen needs. will check CXR tomorrow Time spent with patient (mins): 25 FARHANA MARIE MD Feb 02, 2021 17:30
[2021-02-02 19:42] VITALS: BP 133/60
[2021-02-02] MEDS: DULoxetine 30 MG (CYMBALTA) CAP PO SCH (20:19)
[2021-02-02] MEDS: ENOXAPARIN 40 MG/0.4 ML (LOVENOX) SYR SC SCH (20:21)
[2021-02-03 00:06] VITALS: BP 157/78
[2021-02-03 04:01] VITALS: BP 123/58
[2021-02-03] MEDS: inSUlin ASPART (NovoLOG) 1 UNIT/0.01 ML (CHARGE PER UNIT) SC SCH ×2 (05:48→11:18)
[2021-02-03] MEDS: LEVOTHYROXINE 50 MCG (LEVOTHROID) TAB PO SCH (05:49)
[2021-02-03] MEDS: LEVOTHYROXINE 100 MCG (LEVOTHROID) TAB PO SCH (05:50)
--- NOTE | 2021-02-03 07:15 | Diagnostic Imaging Report ---
INDICATION: Hypoxia. Pneumonia. Sepsis. TECHNIQUE: Single view chest 5:49 AM. CORRELATION STUDY: 01/30/2021 FINDINGS: Heart size and mediastinum remain enlarged and prominent. Bilateral predominantly mid and lower lung pulmonary opacities with infiltrate again demonstrated. Overall generally stable perhaps minimally progressed. Also appears to be some involvement of the upper lobe distribution. IMPRESSION: 1. Bilateral pulmonary opacities likely reflect multilobar pneumonia, perhaps slightly increased in severity from prior. Dictated by: Dictated on workstation # [id number]
[2021-02-03 07:44] VITALS: BP 123/58
[2021-02-03 08:00] VITALS: BP 139/68
[2021-02-03] MEDS: PREGABALIN 150 MG (LYRICA) CAPSULE PO SCH (08:49)
[2021-02-03] MEDS: SENNA W/DOCUSATE (SENOKOT S) TABLET PO SCH (08:49)
[2021-02-03] MEDS: ASPIRIN E.C. 81 MG (ECOTRIN) TAB PO SCH (08:49)
[2021-02-03] MEDS: FUROSEMIDE 40 MG (LASIX) TAB PO SCH (08:49)
[2021-02-03] MEDS: TOLTERODINE LA 2 MG (DETROL LA) CAP PO SCH (08:49)
[2021-02-03] MEDS: guaiFENesin (MUCINEX) 600 MG TAB PO SCH (08:49)
--- NOTE | 2021-02-03 09:55 | Consultation-Cardiology ---
HPI-Cardiology Cardiology Consultation: Date of Consultation 02/03/21 Time Seen by a Provider: 10:30 Date of Admission 01/29/21 Attending Physician Katy Yeung MD Admitting Physician Mirza Bach MD Consulting Physician DONN THEODORE MD, MA,FACP, FACC, FSCAI, CCDS Physician requesting consult: Dr Yeung HPI: Chief Complaint: Reason for Cardiology consultation: H/o heart disease HPI 80 yo man who developed chills a week and subsequently continued to have progressively worsening malaise and weakness and diminishing stamina. No cp or palp or syncope. Decided to come the hospital. Was diagnosed with pneumonia and has been on the Hospitalist service for several days. Denies swelling. Denies n/v/d. Continues with gen malaise. Review of Systems-Cardiology Review of Systems Constitutional: As described under HPI Eyes: No vision change Ears/Nose/Throat: No ear discharge, No nasal drainage, No recent hearing loss Respiratory: As described under HPI Cardiovascular: As described under HPI Gastrointestinal: As described under HPI Genitourinary: No dysuria, No hematuria, No urine frequency changes Musculoskeletal: back pain (chronic) Skin: No rash, No ulcerations Psychiatric/Neurological: No seizure, No focal weakness, No syncope Hematologic: No bleeding abnormalities MJU-Eqirdw-Nteyut Hx Patient Social History Marrital Status: Employed/Student: retired Smoking Status: Former Smoker Former smoker/When Quit: Sep 10, 1995 2nd Hand Smoke Exposure: No Have you traveled recently?: No Alcohol Use?: No Pt feels they are or have been: No Immunizations Up To Date Date of Pneumonia Vaccine: Mar 31, 2019 Date of Influenza Vaccine: Mar 31, 2019 Past Medical History PMH As described under Assessment. Family Medical History Family History: Alcoholism 19 FATHER Completed stroke 19 MOTHER Diabetes mellitus 19 MOTHER G8 SISTER FH: pancreatic cancer G8 BROTHER Allergies and Home Medications Allergies Coded Allergies: Sulfa (Sulfonamide Antibiotics) (Verified Allergy, Intermediate, RASH, CHILLS, 07/10/19) Home Medications Ascorbate Calcium 500 Mg Tablet, 500 MG PO DAILY, (Reported) Last Action: Held Aspirin 81 Mg Tablet.dr, 81 MG PO DAILY, (Reported) Last Action: Continued Atorvastatin Calcium 40 Mg Tablet, 40 MG PO DAILY, (Reported) Last Action: Continued Calcium Carbonate 500 Mg Tablet, 500 MG PO 1700, (Reported) Last Action: Held Cranberry Extract/Vit C 1 Each Capsule, 1 EACH PO BID, (Reported) Last Action: Held Cyanocobalamin (Vitamin B-12) 2,500 Mcg Tablet, 2,500 MCG PO DAILY, (Reported) Last Action: Held Duloxetine HCl 60 Mg Capsule.dr, 60 MG PO HS, (Reported) LAST FILLED 08-15-2020 #90/90 DAY SUPPLY Last Action: Converted Fesoterodine Fumarate 4 Mg Tab.sr.24h, 4 MG PO DAILY, (Reported) Last Action: Converted Furosemide 40 Mg Tablet, 40 MG PO DAILY, (Reported) Last Action: Continued Gluc Beckham/Chondro Beckham A/Vit C/Mn 1 Each Tablet, 1 TAB PO DAILY, (Reported) Last Action: Held L.acidoph & Paracasei,B.lactis 1 Each Capsule, 1 EACH PO BID, (Reported) Last Action: Held Levothyroxine Sodium 50 Mcg Tablet, 50 MCG PO DAILY, (Reported) TAKES 200MCG +50MCG Last Action: Continued Levothyroxine Sodium 200 Mcg Tablet, 200 MCG PO DAILY, (Reported) TAKES 200MCG +50MCG Last Action: Converted Melatonin 10 Mg Tab.rapdis, 10-20 MG PO HS PRN for SLEEP, (Reported) Last Action: Converted Metformin HCl 1,000 Mg Tab.er.24, 1,000 MG PO BID WITH MEALS, (Reported) Last Action: Held Mv-Mn/FA/Lycopene/Lut/Hb#178 1 Each Tablet, 2 TAB PO DAILY, (Reported) Last Action: Held Nitrofurantoin Macrocrystal 100 Mg Capsule, 100 MG PO 1700, (Reported) Last Action: Held [place] 3 Polyunsat Fatty Acids 1,000 Mg Cap, 1,000 MG PO DAILY, (Reported) Last Action: Held Pantoprazole Sodium 40 Mg Tablet.dr, 40 MG PO 1700, (Reported) Last Action: Continued Potassium Chloride 10 Meq Capsule.er, 10 MEQ PO DAILY, (Reported) Last Action: Held Pregabalin 150 Mg Capsule, 150 MG PO BID, (Reported) Last Action: Continued Saw [place] Fruit 450 Mg Capsule, 2 CAP PO DAILY, (Reported) Last Action: Held Sennosides/Docusate Sodium 1 Each Tablet, 2 TAB PO BID, (Reported) Last Action: Continued Tramadol HCl 50 Mg Tablet, 50 MG PO Q6H PRN for PAIN-MODERATE (5-7), (Reported) Last Action: Continued Zinc 50 Mg Tablet, 50 MG PO DAILY, (Reported) Last Action: Held Patient Home Medication List Home Medication List Reviewed: Yes Physical Exam-Cardiology Physical Exam Vital Signs/I&O 02/03/21 02/03/21 02/03/21 02/03/21 00:06 02:36 04:01 06:36 Temp 36.0 35.8 Pulse 77 85 Resp 20 20 B/P (MAP) 157/78 (104) 123/58 (79) Pulse Ox 94 90 93 90 O2 Delivery Vapotherm Vapotherm Vapotherm Vapotherm O2 Flow Rate 35.00 35.00 35.00 35.00 85.00 85.00 FiO2 85 85 02/03/21 02/03/21 02/03/21 02/03/21 07:44 08:00 08:00 10:44 Temp 35.8 36.1 Pulse 85 75 Resp 18 B/P (MAP) 139/68 (91) Pulse Ox 90 92 90 O2 Delivery Vapotherm Vapotherm Vapotherm O2 Flow Rate 35.00 35.00 35.00 85.00 FiO2 85 85 02/03/21 00:00 Intake Total 1260 ml Output Total 1775 ml Balance -515 ml Capillary Refill : Greater Than 3 Seconds Constitutional: AAO x 3, well-developed, well-nourished HEENT: EOMI; No xanthelasmas are seen Neck: carotid pulses are 2 + bilaterally Respiratory: No accessory muscle use; other (fair air entry, prolonged exp, diminished air entry at both bases, dullness at both bases) Cardiovascular: regular rate-rhythm, S1 and S2, systolic murmur (3/6 MSM) Gastrointestinal: No tender; soft, guarding, rebound, audible bowel sounds Extremities: swelling (mild, bilateral leg swelling); No clubbing, No cyanosis Neurologic/Psychiatric: oriented x 3, other (moves all limbs equally) Skin: normal color, warm/dry Data Review Labs Laboratory Tests 02/02/21 16:19: Glucometer 111H 02/02/21 20:08: Glucometer 140H 02/03/21 05:39: Glucometer 100 02/03/21 11:13: Glucometer 118H 8/31/21 11:15: Microbiology 02/01/21 Gram Stain - Final, Complete 02/01/21 Sputum Culture - Final, Complete Usual upper respiratory tonio 01/29/21 Blood Culture - Preliminary, Resulted No growth 01/29/21 Urine Culture - Final, Complete Mixed Bacterial Tonio Pseudomonas aeruginosa Laboratory Tests 02/02/21 04:15 A/P-Cardiology Assessment/Admission Diagnosis Bilateral, multilobar pneumonia Chronic diastolic CHF, compensated CAD - s/p two cor stents in 1995 following MS, details unknown. - MPI of 01/18/19: no ischemia or infarction, hyperdynamic LV, LVEF 91% Aortic stenosis, moderte to severe. - Echo of 01/19/19: LVEF 70-75%, concentric LVH, mod dil of LA, severe (area 1.1), RVSP 20 mmHg - Echo of 09/08/20: LVEF 55-60%, grade 1 hong dysfxn, AoV could not be adequately interrogated, PASP 35-40 mmHg - Echo 09/30/20: LVEF 60-65%, mod (valve area 1.3 sq cm, mean peak grad 56, mean grad 34), PASP 25-30 mmHg Suprapubic cystostomy Quit smoking in 1995 H/o hypertension DJD H/o hyperlipidemia LILIAN, non-compliant with CPAP Mild COPD on PFTs of Mar 2019 Carotid u/s of 04/19/19: mild bilateral carotid art disease without evidence of hemodynamic significance AAA screening scan of 04/19/19: no evidence of AAA Bilat TKR in 2019 Bilat leg swelling due to venous insuff Discussion and Recomendations * Treatment of pneumonia is by the Hospitalist/Med svce * Diuretics if and when needed * Monitor labs * I discussed his CV issues with him and answered questions DONN THEODORE MD FACP FAC CCDS Feb 03, 2021 09:54
[2021-02-03] MEDS: CEFEPIME INJECTION 2,000 MG in WATER (STERILE) FOR INJECTION 20 ML IV SCH (11:23)
--- NOTE | 2021-02-03 13:30 | Discharge Summary ---
Discharge Summary Hospital Course Problems/Dx: (1) Acute respiratory failure with hypoxia Status: Acute (2) Pneumonia Status: Acute (3) Pseudomonas urinary tract infection Status: Acute (4) Sepsis due to urinary tract infection Status: Acute (5) Severe aortic stenosis Status: Chronic Hospital Course Date of Admission: Jan 29, 2021 at 18:30 Admission Diagnosis : Sepsis and acute respiratory failure with hypoxia due to pneumonia Family Physician/Provider: Mirza Bach MD Date of Discharge: 02/03/21 Discharge Diagnosis: Sepsis and acute respiratory failure with hypoxia due to pneumonia Hospital Course: Ilia Barbour is an 80 year old male who was admitted with sepsis due to pneumonia and UTI. He was started on IV antibiotics. He also had acute respiratory failure with hypoxia and required Vapotherm. Covid and flu testing were negative. He also had issues with debility and worked with physical and occupational therapies. He was discharged to swing bed for ongoing IV antibiotics and therapy needs. Labs and Pending Lab Test: Laboratory Tests 02/02/21 16:19: Glucometer 111H 02/02/21 20:08: Glucometer 140H 02/03/21 05:39: Glucometer 100 02/03/21 11:13: Glucometer 118H 02/03/21 11:15: SARS-CoV-2 RNA (RT-PCR) Not Detected Microbiology 02/01/21 Gram Stain - Final, Complete 02/01/21 Sputum Culture - Final, Complete Usual upper respiratory tonio 01/29/21 Blood Culture - Preliminary, Resulted No growth 01/29/21 Urine Culture - Final, Complete Mixed Bacterial Tonio Pseudomonas aeruginosa Home Meds Active Reported Vitamin C (Ascorbate Calcium) 500 Mg Tablet 500 Mg PO DAILY Toviaz (Fesoterodine Fumarate) 4 Mg Tab.sr.24h 4 Mg PO DAILY Melatonin 10 Mg Tab.rapdis 10-20 Mg PO HS PRN Low Dose Aspirin EC (Aspirin) 81 Mg Tablet.dr 81 Mg PO DAILY Potassium Chloride 10 Meq Capsule.er 10 Meq PO DAILY Furosemide 40 Mg Tablet 40 Mg PO DAILY Senna-Plus Tablet (Sennosides/Docusate Sodium) 1 Each Tablet 2 Tab PO BID Nitrofurantoin (Nitrofurantoin Macrocrystal) 100 Mg Capsule 100 Mg PO 1700 Tramadol HCl 50 Mg Tablet 50 Mg PO Q6H PRN Azo Cranberry Softgel (Cranberry Extract/Vit C) 1 Each Capsule 1 Each PO BID Probiotic (L.acidoph & Paracasei,B.lactis) 1 Each Capsule 1 Each PO BID Calcium (Calcium Carbonate) 500 Mg Tablet 500 Mg PO 1700 Synthroid (Levothyroxine Sodium) 200 Mcg Tablet 200 Mcg PO DAILY TAKES 200MCG +50MCG Vitamin B12 (Cyanocobalamin (Vitamin B-12)) 2,500 Mcg Tablet 2,500 Mcg PO DAILY [place] (Pregabalin) 150 Mg Capsule 150 Mg PO BID Glucosamine Chondroitin Tab (Gluc [place]/Chondro [place] A/Vit C/Mn) 1 Each Tablet 1 Tab PO DAILY [place]en Multi For Men Tablet (Mv-Mn/FA/Lycopene/Lut/Hb#178) 1 Each Tablet 2 Tab PO DAILY [place] (Saw [place] Fruit) 450 Mg Capsule 2 Cap PO DAILY Fish Oil 1,000 mg Capsule ([place] 3 Polyunsat Fatty Acids) 1,000 Mg Cap 1,000 Mg PO DAILY Zinc 50 Mg Tablet 50 Mg PO DAILY Atorvastatin Calcium 40 Mg Tablet 40 Mg PO DAILY Synthroid (Levothyroxine Sodium) 50 Mcg Tablet 50 Mcg PO DAILY TAKES 200MCG +50MCG Duloxetine HCl 60 Mg Capsule.dr 60 Mg PO HS LAST FILLED 08-15-2020 #90/90 DAY SUPPLY Metformin HCl ER (Metformin HCl) 1,000 Mg Tab.er.24 1,000 Mg PO BID WITH MEALS Pantoprazole Sodium 40 Mg Tablet.dr 40 Mg PO 1700 Assessment/Pt Instructions Patient transferred to swing bed Discharge Planning: <30 minutes discharge planning Discharge Instructions Discharge Diet: No Restrictions Activity as Tolerated: Yes Consultations Pulmonology, Cardiology Discharge Physical Examination Vital Signs Vital Signs Date Time Temp Pulse Resp B/P (MAP) Pulse Ox O2 Delivery O2 Flow Rate FiO2 02/03/21 10:44 90 Vapotherm 35.00 85 02/03/21 08:00 36.1 75 18 139/68 (91) General Appearance: No Apparent Distress, Obese Respiratory: No Respiratory Distress, Crackles, Decreased Breath Sounds Cardiovascular: Regular Rate, Rhythm, No Murmur Gastrointestinal: Normal Bowel Sounds, Non Tender, Soft Extremity: Normal Inspection, Pedal Edema Skin: Normal Color, Warm/Dry Neurologic/Psychiatric: Alert, Motor Weakness, Other (flat affect) Allergies: Coded Allergies: Sulfa (Sulfonamide Antibiotics) (Verified Allergy, Intermediate, RASH, CHILLS, 2/4/20) Discharge Summary Date of Admission Jan 29, 2021 at 18:30 Date of Discharge Discharge Date: Feb 03, 2021 Discharge Time: 13:29 Admission Diagnosis Sepsis due to PNA Consults/Procedures Consulations Pulmonology, Cardiology Discharge Diagnosis Sepsis due to PNA UTI Acute respiratory failure with hypoxia (1) Acute respiratory failure with hypoxia Status: Acute (2) Pneumonia Status: Acute (3) Pseudomonas urinary tract infection Status: Acute (4) Sepsis due to urinary tract infection Status: Acute (5) Severe aortic stenosis Status: Chronic NAREN MCMAHON MD Feb 03, 2021 13:30
[2021-02-03 13:43] VITALS: BP 139/68
[2021-02-03] MEDS ORDERED: RT-ALBUTEROL/IPRATROPIUM 3 ML (DUONEB) VIAL INH SCH (15:00)
== END 2021-02-03 13:33 | disposition swing bed (61) | DRG 871 ==
LOC: EDUNIT# 14:22 → ER 14:27 → 4TH 18:30
PROVIDERS: ADMIT Family Medicine; ATTEND Internal Medicine
DX: A41.52 Sepsis due to Pseudomonas (principal); J18.9 Pneumonia, unspecified organism; J96.01 Acute respiratory failure with hypoxia; N39.0 Urinary tract infection, site not specified; I50.32 Chronic diastolic (congestive) heart failure; I11.0 Hypertensive heart disease with heart failure; I35.0 Nonrheumatic aortic (valve) stenosis; I25.10 Atherosclerotic heart disease of native coronary artery without angina pectoris; E78.5 Hyperlipidemia, unspecified; G47.33 Obstructive sleep apnea (adult) (pediatric); J44.9 Chronic obstructive pulmonary disease, unspecified; I77.89 Other specified disorders of arteries and arterioles; I87.2 Venous insufficiency (chronic) (peripheral); E03.9 Hypothyroidism, unspecified; N40.1 Benign prostatic hyperplasia with lower urinary tract symptoms; R33.8 Other retention of urine; R01.1 Cardiac murmur, unspecified; E11.42 Type 2 diabetes mellitus with diabetic polyneuropathy; K21.9 Gastro-esophageal reflux disease without esophagitis; K59.09 Other constipation; I25.2 Old myocardial infarction; Z87.891 Personal history of nicotine dependence; Z20.822 Contact with and (suspected) exposure to COVID-19; Z96.653 Presence of artificial knee joint, bilateral; Z95.5 Presence of coronary angioplasty implant and graft; Z79.890 Hormone replacement therapy; Z79.899 Other long term (current) drug therapy; Z79.84 Long term (current) use of oral hypoglycemic drugs; Z91.19 Patient's noncompliance with other medical treatment and regimen; Z88.2 Allergy status to sulfonamides
CPT/HCPCS: 36415; 71045; 71275; 80048; 80053; 81000; 82805; 82947; 83605; 83880; 84145; 85007; 85025; 85027; 85379; 85610; 85730; 86141; 87040; 87070; 87077; 87088; 87186; 87205; 87636; 94640; 94760; 96361; 96374

== ENCOUNTER 2021-02-03 10:50 | Inpatient (IN) | payer MEDICARE, OTHER ==
[~2021-02-03] VITALS: Ht 180 cm; Wt 120.0 kg
[~2021-02-03 10:50] MED LIST changes: +ASCO-262 PO; +ASPI81TA16 PO; +CRAN1CAP5 PO; +FESO4TAB PO; +MELA10TA7 PO; +MELA1TAB20 PO; +NITR-68 PO; +NITR100C PO; +POTA10CA43 PO; +SENN-274 PO; +TRAM50TA3 PO
[2021-02-03] MEDS ORDERED: ONDANSETRON 4 MG/2 ML (SDV) Z0FRAN IVP PRN (13:45)
[2021-02-03] MEDS ORDERED: RT-ALBUTEROL SULF 2.5 MG/3 ML PRE-MIX VIAL INH PRN (13:45)
[2021-02-03] MEDS ORDERED: ACETAMINOPHEN 500 MG TAB (TYLENOL) PO PRN (13:45)
[2021-02-03] MEDS ORDERED: CEFEPIME INJECTION 2,000 MG in WATER (STERILE) FOR INJECTION 20 ML IV SCH (13:45)
[2021-02-03] MEDS ORDERED: CHLORASEPTIC LOZENGE MM PRN (13:45)
[2021-02-03] MEDS ORDERED: CATHETER FLUSH 10 ML SYR IV PRN (13:45)
--- NOTE | 2021-02-03 14:16 | Physical Therapy Evaluation ---
PT Evaluation-General Medical Diagnosis Admission Date Feb 03, 2021 at 13:40 Medical Diagnosis: pneumonia Onset Date: Jan 31, 2021 Therapy Diagnosis Therapy Diagnosis: debility/weakness Height/Weight Height (Feet): 5 Height (Inches): 11.00 Weight (Pounds): 282 Weight (Ounces): 0.0 Referral Physician: Gamal Reason for Referral: Evaluation/Treatment Medical History Pertinent Medical History: CAD, DM, HTN Current History SWB status secondary to worsening pneumonia (currently on Vapotherm 85%) Social History Home: [facility] Current Living Status: Spouse Entry Into Home: Elevator (power stair lift) Prior Prior Level of Function SCALE: Activities may be completed with or without assistive devices. 6-Ywuomyegvr-oxhhwln completes the activity by him/herself with no assistance from a helper. 5-Set-up or Clean-up Assistance-helper sets up or cleans up; patient completes activity. [place] assists only prior to or following the activity. 4-Supervision or Touching Assistance-helper provides verbal cues and/or touching/steadying and/or contact guard assistance as patient completes activity. Assistance may be provided throughout the activity or intermittently. 3-Partial/Moderate Assistance-helper does LESS THAN HALF the effort. [place] lifts, holds or supports trunk or limbs, but provides less than half the effort. 2-Substantial/Maximal Assistance-helper does MORE THAN HALF the effort. [place] lifts or holds trunk or limbs and provides more than half the effort. 1-Hvlfzyugm-jtudfm does ALL the effort. Patient does none of the effort to complete the activity. Or, the assistance of 2 or more helpers is required for the patient to complete the activity. If activity was not attempted, code reason: 7-Patient Refused. 9-Not Applicable-not attempted and the patient did not perform the activity before the current illness, exacerbation or injury. 10-Not Attempted due to Environmental Limitations-(lack of equipment, weather restraints, etc.). 88-Not Attempted due to Medical Conditions or Safety Concerns. Bed Mobility: 6 Transfers (B,C,W/C): 6 Gait: 6 Stairs: 9 Wheelchair Mobility: 6 Indoor Mobility (Ambulation): Independent Stairs: Not Applicalbe Prior Devices Use: Motorized scooter, Walker PT Evaluation-Current Subjective Patient agrees to PT. Objective Patient Orientation: Normal For Age Attachments: Oxygen (vapotherm), Suprapubic Catheter ROM/Strength ROM Lower Extremities bilateral LE WFL Strength Lower Extremities 3/5 grossly all planes bilateral LE Integumentary/Posture Integumentary refer to nursing notes Posture trunk and bilateral knee flexed posture in stand to FWW Neuromuscular (Tone, Coordination, Reflexes) grossly intact Sensory Vision: Functional Hearing: Impaired Transfers Roll Left & Right (QC): 3 Sit to Lying (QC): 3 Lying to Sitting/Side of Bed(Q: 3 Sit to Stand (QC): 3 Chair/Awq-rs-Ehqji Xfer(QC): 3 Toilet Transfer (QC): 3 Car Transfer (QC): 88 Gait Does the Patient Walk?: Yes Mode of Locomotion: Both Anticipated Mode of Locomotion: Both Walk 10 feet (QC): 4 Walk 50 ft with 2 Turns(QC): 88 Walk 150 ft (QC): 88 Walking 10ft/uneven surface-QC: 88 Distance: 10' limited by vapotherm tubing Gait Assistive Device: FWW Comments/Gait Description functional Wheelchair Training Does the Pt Use a Wheelchair?: Yes Wheel 50 ft with 2 turns (QC): 10 Wheel 150 ft (QC): 10 Type of Wheelchair: Motorized patient has this in home. Will not test in hospital setting Stairs 1 Step (curb) (QC): 9 4 Steps (QC): 9 12 Steps (QC): 9 Balance Sitting Static: Normal Sitting Dynamic: Normal Standing Static: Fair Standing Dynamic: Fair Picking up an Object (QC): 88 Treatment sit to stand to FWW x 4 sets CGA for safety; standing marching 20 reps, seated AP, LAQ, hip flexion 12 x 2 sets/ deep breathing with trunk rotation and bilateral UE extension activity Assessment/Needs 80 y.o. male, will benefit from skilled PT to address functional strength and mobility to improve pulmonary functional and current LOF to safely return to home with spouse at maximum LOF. Rehab Potential: Guarded PT Commodities Manager Goals Long-Term Goals PT Long-Term Goals Time Frame: Feb 21, 2021 Roll Left & Right (QC): 5 Sit to Lying (QC): 5 Lying-Sitting on Side/Bed(QC): 5 Sit to Stand (QC): 5 Chair/Int-hl-Hskfx Xfer(QC): 5 Toilet Transfer (QC): 5 Car Transfer (QC): 5 Does the Patient Walk: Yes Walk 10 feet (QC): 5 Walk 50ft with 2 Turns (QC): 5 Walk 150 ft (QC): 9 Walking 10ft on Uneven Surface: 5 1 Step (curb) (QC): 9 4 Steps (QC): 9 12 Steps (QC): 9 Picking up an Object (QC): 9 Wheel 50 feet with 2 turns (QC: 9 Wheel 150 feet: 9 will not test w/c mobility in hospital (patient has power chair in home) PT Plan Problem List Problem List: Activity Tolerance, Functional Strength, Safety, Balance, Gait, Transfer, Bed Mobility Treatment/Plan Treatment Plan: Continue Plan of Care Treatment Plan: Bed Mobility, Education, Functional Activity Glenn, Functional Strength, Gait, Safety, Therapeutic Exercise, Transfers Treatment Duration: Feb 21, 2021 Frequency: 6 times per week Estimated Hrs Per Day: .25 hour per day Patient and/or Family Agrees t: Yes Time/GCodes Time In: 1331 Time Out: 1354 Total Billed Treatment Time: 23 Total Billed Treatment 1 visit EVModC 8 min EX 15 min CLAY HOLGUIN PT Feb 03, 2021 14:16
[2021-02-03] MEDS: RT-ALBUTEROL/IPRATROPIUM 3 ML (DUONEB) VIAL INH SCH ×2 (14:41→20:02)
[2021-02-03] MEDS: inSUlin ASPART (NovoLOG) 1 UNIT/0.01 ML (CHARGE PER UNIT) SC SCH ×2 (16:33→21:34)
[2021-02-03 18:00] VITALS: BP 114/74
[2021-02-03] MEDS: PANTOPRAZOLE 40 MG (PROTONIX) TAB PO SCH (18:27)
[2021-02-03 20:24] VITALS: BP 111/70
[2021-02-03] MEDS: ENOXAPARIN 40 MG/0.4 ML (LOVENOX) SYR SC SCH (21:36)
[2021-02-03] MEDS: guaiFENesin (MUCINEX) 600 MG TAB PO SCH (21:36)
[2021-02-03] MEDS: DULoxetine 30 MG (CYMBALTA) CAP PO SCH (21:36)
[2021-02-03] MEDS: PREGABALIN 150 MG (LYRICA) CAPSULE PO SCH (21:36)
[2021-02-03] MEDS: SENNA W/DOCUSATE (SENOKOT S) TABLET PO SCH (21:36)
[2021-02-03] MEDS: CATHETER FLUSH 10 ML SYR IV SCH (21:37)
[2021-02-03] MEDS: MELATONIN 10 MG TABLET PO PRN (22:24)
[2021-02-03] MEDS: CEFEPIME INJECTION 2,000 MG in WATER (STERILE) FOR INJECTION 20 ML IV SCH (22:25)
[2021-02-04] MEDS: RT-ALBUTEROL/IPRATROPIUM 3 ML (DUONEB) VIAL INH SCH ×4 (02:45→19:57)
[2021-02-04 05:29] LABS: BASOPHILS # (AUTO) 0.1 10^3/uL (0.0-0.1); BASOPHILS % (AUTO) 1 % (0-10); EOSINOPHILS # (AUTO) 0.5 10^3/uL (0.0-0.3); EOSINOPHILS % (AUTO) 5 % (0-10); HEMATOCRIT 37 % (40-54); HEMOGLOBIN 11.3 g/dL (13.3-17.7); LYMPHOCYTES % (AUTO) 11 % (12-44); MEAN CORPUSCULAR HEMOGLOBIN 27 pg (25-34); MEAN CORPUSCULAR HGB CONC 30 g/dL (32-36); MEAN CORPUSCULAR VOLUME 90 fL (80-99); MEAN PLATELET VOLUME 11.4 fL (9.0-12.2); MONOCYTES # (AUTO) 0.5 10^3/uL (0.0-1.0); MONOCYTES % (AUTO) 5 % (0-12); NEUTROPHILS % (AUTO) 77 % (42-75); PLATELET COUNT 177 10^3/uL (130-400); WHITE BLOOD COUNT 9.2 10^3/uL (4.3-11.0)
[2021-02-04] MEDS: LEVOTHYROXINE 50 MCG (LEVOTHROID) TAB PO SCH (05:39)
[2021-02-04] MEDS: CATHETER FLUSH 10 ML SYR IV SCH ×3 (05:40→23:26)
[2021-02-04] MEDS: LEVOTHYROXINE 100 MCG (LEVOTHROID) TAB PO SCH (05:40)
[2021-02-04 05:42] LABS: POTASSIUM 3.7 MMOL/L (3.6-5.0)
[2021-02-04 05:43] LABS: CALCIUM 8.9 MG/DL (8.5-10.1)
[2021-02-04 05:47] LABS: CREATININE SERUM 0.66 MG/DL (0.60-1.30)
[2021-02-04] MEDS: inSUlin ASPART (NovoLOG) 1 UNIT/0.01 ML (CHARGE PER UNIT) SC SCH ×4 (05:47→21:11)
[2021-02-04 08:00] VITALS: BP 119/57
[2021-02-04] MEDS: FUROSEMIDE 40 MG (LASIX) TAB PO SCH (08:05)
[2021-02-04] MEDS: guaiFENesin (MUCINEX) 600 MG TAB PO SCH ×2 (08:05→21:11)
[2021-02-04] MEDS: SENNA W/DOCUSATE (SENOKOT S) TABLET PO SCH ×2 (08:05→21:11)
[2021-02-04] MEDS: ASPIRIN E.C. 81 MG (ECOTRIN) TAB PO SCH (08:05)
[2021-02-04] MEDS: TOLTERODINE LA 2 MG (DETROL LA) CAP PO SCH (08:06)
[2021-02-04] MEDS: PREGABALIN 150 MG (LYRICA) CAPSULE PO SCH ×2 (08:07→21:11)
--- NOTE | 2021-02-04 10:28 | Physical Therapy Daily Note ---
PT Daily Note-Current Subjective Pt indicates he would like to get into the bedside chair. Transfers SCALE: Activities may be completed with or without assistive devices. 2-Nnahtqflwc-hjkumxb completes the activity by him/herself with no assistance from a helper. 5-Set-up or Clean-up Assistance-helper sets up or cleans up; patient completes activity. [place] assists only prior to or following the activity. 4-Supervision or Touching Assistance-helper provides verbal cues and/or touching/steadying and/or contact guard assistance as patient completes activity. Assistance may be provided throughout the activity or intermittently. 3-Partial/Moderate Assistance-helper does LESS THAN HALF the effort. [place] lifts, holds or supports trunk or limbs, but provides less than half the effort. 2-Substantial/Maximal Assistance-helper does MORE THAN HALF the effort. [place] lifts or holds trunk or limbs and provides more than half the effort. 2-Sutllfgze-vmosty does ALL the effort. Patient does none of the effort to complete the activity. Or, the assistance of 2 or more helpers is required for the patient to complete the activity. If activity was not attempted, code reason: 7-Patient Refused. 9-Not Applicable-not attempted and the patient did not perform the activity before the current illness, exacerbation or injury. 10-Not Attempted due to Environmental Limitations-(lack of equipment, weather restraints, etc.). 88-Not Attempted due to Medical Conditions or Safety Concerns. Roll Left & Right (QC): 6 Sit to Lying (QC): 6 Lying to Sitting/Side of Bed(Q: 6 Sit to Stand (QC): 4 Chair/Bth-ub-Sekko Xfer(QC): 4 slight lift assist for sit to stand Gait Training Gait Assistive Device: FWW Ambulate approximately 10ft in room with FWW. Limited by vapotherm. Exercises Seated Therapy Exercises: Sit to stand Standing Reps: 5 Stood at walker and performed wt shift, mini squats, and hip flexion 3 x 10 reps during standing. Assessment Current Status: Good Progress Pt showing improved tolerance to activity and will benefit from continued PT. PT Fdc Goals Fdc Goals PT Fdc Goals Time Frame: Feb 21, 2021 Roll Left & Right (QC): 5 Sit to Lying (QC): 5 Lying-Sitting on Side/Bed(QC): 5 Sit to Stand (QC): 5 Chair/Ltt-mr-Odtof Xfer(QC): 5 Toilet Transfer (QC): 5 Car Transfer (QC): 5 Does the Patient Walk: Yes Walk 10 feet (QC): 5 Walk 50ft with 2 Turns (QC): 5 Walk 150 ft (QC): 9 Walking 10ft on Uneven Surface: 5 1 Step (curb) (QC): 9 4 Steps (QC): 9 12 Steps (QC): 9 Picking up an Object (QC): 9 Wheel 50 feet with 2 turns (QC: 9 Wheel 150 feet: 9 PT Plan Treatment/Plan Treatment Plan: Continue Plan of Care Treatment Plan: Bed Mobility, Education, Functional Activity Glenn, Functional Strength, Gait, Safety, Therapeutic Exercise, Transfers Treatment Duration: Feb 21, 2021 Frequency: 6 times per week Estimated Hrs Per Day: .25 hour per day Patient and/or Family Agrees t: Yes Time/GCodes Time In: 920 Time Out: 945 Total Billed Treatment Time: 25 Total Billed Treatment visit, [id number], FA 15 min CAROLINE CALVILLO PT Feb 04, 2021 10:28
[2021-02-04] MEDS: CEFEPIME INJECTION 2,000 MG in WATER (STERILE) FOR INJECTION 20 ML IV SCH ×2 (10:56→23:26)
--- NOTE | 2021-02-04 11:00 | Progress Note - Cardiology ---
Cardiology SOAP Progress Note Subjective: Gen malaise and weakness present Shortness of breath with activity No cp or palp or syncope No n/v/d No focal weakness Objective: I&O/Vital Signs 02/04/21 02/04/21 02/04/21 02/04/21 02:45 07:46 08:00 08:00 Temp 36.4 Pulse 78 Resp 18 B/P (MAP) 119/57 (77) Pulse Ox 94 92 92 80 O2 Delivery Vapotherm Vapotherm Vapotherm Vapotherm O2 Flow Rate 30.00 30.00 30.00 80.00 FiO2 80 80 30 02/04/21 10:38 Pulse Ox 97 O2 Flow Rate 25.00 FiO2 75 02/04/21 00:00 Intake Total 220 ml Output Total 300 ml Balance -80 ml Weight (Pounds): 282 Weight (Ounces): 0.0 Weight (Calculated Kilograms): 127.460835 Constitutional: AAO x 3, well-developed, well-nourished Respiratory: No accessory muscle use; other (diminished breath sounds at both bases) Cardiovascular: regular rate-rhythm, S1 and S2, systolic murmur (3/6 MSM) Gastrointestional: No tender; soft; No guarding, No rebound; audible bowel sounds Extremities: swelling (mod, bilateral leg swelling); No clubbing, No cyanosis Neurologic/Psychiatric: oriented x 3, other (moves all limbs equally) Skin: No rash on exposed areas, No ulcerations on exposed areas Results/Procedures: Labs Laboratory Tests 02/03/21 16:01: Glucometer 142H 02/03/21 20:02: Glucometer 103 02/04/21 05:09: White Blood Count 9.2, Red Blood Count 4.13L, Hemoglobin 11.3L, Hematocrit 37L, Mean Corpuscular Volume 90, Mean Corpuscular Hemoglobin 27, Mean Corpuscular Hemoglobin Concent 30L, Red Cell Distribution Width 18.1H, Platelet Count 177, Mean Platelet Volume 11.4, Immature Granulocyte % (Auto) 1, Neutrophils (%) (Auto) 77H, Lymphocytes (%) (Auto) 11L, Monocytes (%) (Auto) 5, Eosinophils (%) (Auto) 5, Basophils (%) (Auto) 1, Neutrophils # (Auto) 7.0, Lymphocytes # (Auto) 1.0, Monocytes # (Auto) 0.5, Eosinophils # (Auto) 0.5H, Basophils # (Auto) 0.1, Immature Granulocyte # (Auto) 0.1, Sodium Level 138, Potassium Level 3.7, Chloride Level 102, Carbon Dioxide Level 28, Anion Gap 8, Blood Urea Nitrogen 14, Creatinine 0.66, Estimat Glomerular Filtration Rate 116, BUN/Creatinine Ratio 21, Glucose Level 121H, Calcium Level 8.9 02/04/21 10:43: Glucometer 113H Laboratory Tests 02/04/21 05:09 A/P: Assessment: Bilateral, multilobar pneumonia Chronic diastolic CHF, compensated CAD - s/p two cor stents in 1995 following [place], details unknown. - MPI of 01/18/19: no ischemia or infarction, hyperdynamic LV, LVEF 91% Aortic stenosis, moderte to severe. - Echo of 01/19/19: LVEF 70-75%, concentric LVH, mod dil of LA, severe (area 1.1), RVSP 20 mmHg - Echo of 09/08/20: LVEF 55-60%, grade 1 hong dysfxn, AoV could not be adequately interrogated, PASP 35-40 mmHg - Echo 09/30/20: LVEF 60-65%, mod (valve area 1.3 sq cm, mean peak grad 56, mean grad 34), PASP 25-30 mmHg Suprapubic cystostomy Quit smoking in 1995 H/o hypertension DJD H/o hyperlipidemia LILIAN, non-compliant with CPAP Mild COPD on PFTs of Mar 2019 Carotid u/s of 04/19/19: mild bilateral carotid art disease without evidence of hemodynamic significance AAA screening scan of 04/19/19: no evidence of AAA Bilat TKR in 2019 Bilat leg swelling due to venous insuff Plan: * Treatment of pneumonia is by the Hospitalist/Med svce * Diuretics if and when needed * Monitor labs * I again discussed his CV issues with him and answered questions DONN THEODORE MD FACP FAC CCDS Feb 04, 2021 11:00
[2021-02-04] MEDS: PANTOPRAZOLE 40 MG (PROTONIX) TAB PO SCH (17:09)
[2021-02-04 19:30] VITALS: BP 120/56
[2021-02-04] MEDS: ENOXAPARIN 40 MG/0.4 ML (LOVENOX) SYR SC SCH (21:10)
[2021-02-04] MEDS: DULoxetine 30 MG (CYMBALTA) CAP PO SCH (21:11)
[2021-02-04] MEDS: MELATONIN 10 MG TABLET PO PRN (23:24)
[2021-02-05] MEDS: RT-ALBUTEROL/IPRATROPIUM 3 ML (DUONEB) VIAL INH SCH ×4 (02:17→20:02)
[2021-02-05] MEDS: inSUlin ASPART (NovoLOG) 1 UNIT/0.01 ML (CHARGE PER UNIT) SC SCH ×4 (05:21→20:15)
[2021-02-05] MEDS: LEVOTHYROXINE 50 MCG (LEVOTHROID) TAB PO SCH (05:50)
[2021-02-05] MEDS: LEVOTHYROXINE 100 MCG (LEVOTHROID) TAB PO SCH (05:51)
[2021-02-05] MEDS: CATHETER FLUSH 10 ML SYR IV SCH ×3 (05:55→23:26)
[2021-02-05 07:39] VITALS: BP 136/60
[2021-02-05] MEDS: PREGABALIN 150 MG (LYRICA) CAPSULE PO SCH ×2 (08:24→19:49)
[2021-02-05] MEDS: SENNA W/DOCUSATE (SENOKOT S) TABLET PO SCH ×2 (08:24→19:50)
[2021-02-05] MEDS: TOLTERODINE LA 2 MG (DETROL LA) CAP PO SCH (08:24)
[2021-02-05] MEDS: guaiFENesin (MUCINEX) 600 MG TAB PO SCH ×2 (08:25→19:49)
[2021-02-05] MEDS: FUROSEMIDE 40 MG (LASIX) TAB PO SCH (08:26)
[2021-02-05] MEDS: ASPIRIN E.C. 81 MG (ECOTRIN) TAB PO SCH (08:26)
[2021-02-05] MEDS: CEFEPIME INJECTION 2,000 MG in WATER (STERILE) FOR INJECTION 20 ML IV SCH ×2 (10:37→22:26)
--- NOTE | 2021-02-05 10:43 | Progress Note - Cardiology ---
Cardiology SOAP Progress Note Subjective: Gen malaise and weakness No cp or palp or syncope Shortness of breath present (with activity) No n/v/d Objective: I&O/Vital Signs 02/05/21 02/05/21 02/05/21 02/05/21 02:17 07:15 07:39 10:06 Temp 36.6 Pulse 77 Resp 18 B/P (MAP) 136/60 (85) Pulse Ox 90 91 94 91 O2 Delivery Vapotherm Vapotherm Vapotherm O2 Flow Rate 25.00 25.00 25.00 20.00 75.00 FiO2 75 75 70 02/05/21 00:00 Intake Total 1860 ml Output Total 2600 ml Balance -740 ml Weight (Pounds): 282 Weight (Ounces): 0.0 Weight (Calculated Kilograms): 127.848174 Constitutional: AAO x 3, well-developed, well-nourished Respiratory: No accessory muscle use; other (diminished breath sounds at both bases) Cardiovascular: regular rate-rhythm, S1 and S2, systolic murmur (3/6 MSM) Gastrointestional: No tender; soft; No guarding, No rebound; audible bowel sounds Extremities: swelling (mod, bilateral leg swelling); No clubbing, No cyanosis Neurologic/Psychiatric: oriented x 3, other (moves all limbs equally) Skin: No rash on exposed areas, No ulcerations on exposed areas Results/Procedures: Labs Laboratory Tests 02/04/21 10:43: Glucometer 113H 02/04/21 17:03: Glucometer 133H 02/04/21 20:38: Glucometer 113H 02/05/21 04:54: Glucometer 128H Microbiology 02/03/21 Gram Stain - Final, Resulted 02/03/21 Sputum Culture, Resulted Pending Laboratory Tests 02/04/21 05:09 A/P: Assessment: Bilateral, multilobar pneumonia Chronic diastolic CHF, compensated CAD - s/p two cor stents in 1995 following [place], details unknown. - MPI of 01/18/19: no ischemia or infarction, hyperdynamic LV, LVEF 91% Aortic stenosis, moderte to severe. - Echo of 01/19/19: LVEF 70-75%, concentric LVH, mod dil of LA, severe (area 1.1), RVSP 20 mmHg - Echo of 09/08/20: LVEF 55-60%, grade 1 hong dysfxn, AoV could not be adequately interrogated, PASP 35-40 mmHg - Echo 09/30/20: LVEF 60-65%, mod (valve area 1.3 sq cm, mean peak grad 56, mean grad 34), PASP 25-30 mmHg Suprapubic cystostomy Quit smoking in 1995 H/o hypertension DJD H/o hyperlipidemia LILIAN, non-compliant with CPAP Mild COPD on PFTs of Mar 2019 Carotid u/s of 04/19/19: mild bilateral carotid art disease without evidence of hemodynamic significance AAA screening scan of 04/19/19: no evidence of AAA Bilat TKR in 2019 Bilat leg swelling due to venous insuff Plan: * Treatment of pneumonia is by the Hospitalist/Med svce * Diuretics if and when needed * Monitor labs from time to time DONN THEODORE MD FACP FAC CCDS Feb 05, 2021 10:43
--- NOTE | 2021-02-05 11:25 | Physical Therapy Daily Note ---
PT Daily Note-Current Subjective Patient agrees to PT. No c/o. Mental Status Patient Orientation: Normal For Age Attachments: Oxygen (vapotherm), Suprapubic Catheter Transfers SCALE: Activities may be completed with or without assistive devices. 8-Yqqehxjlpi-aoajegz completes the activity by him/herself with no assistance from a helper. 5-Set-up or Clean-up Assistance-helper sets up or cleans up; patient completes activity. [place] assists only prior to or following the activity. 4-Supervision or Touching Assistance-helper provides verbal cues and/or touching/steadying and/or contact guard assistance as patient completes activity. Assistance may be provided throughout the activity or intermittently. 3-Partial/Moderate Assistance-helper does LESS THAN HALF the effort. [place] lifts, holds or supports trunk or limbs, but provides less than half the effort. 2-Substantial/Maximal Assistance-helper does MORE THAN HALF the effort. [place] lifts or holds trunk or limbs and provides more than half the effort. 7-Dnmmcplyn-lgckch does ALL the effort. Patient does none of the effort to complete the activity. Or, the assistance of 2 or more helpers is required for the patient to complete the activity. If activity was not attempted, code reason: 7-Patient Refused. 9-Not Applicable-not attempted and the patient did not perform the activity before the current illness, exacerbation or injury. 10-Not Attempted due to Environmental Limitations-(lack of equipment, weather restraints, etc.). 88-Not Attempted due to Medical Conditions or Safety Concerns. Lying to Sitting/Side of Bed(Q: 5 Sit to Stand (QC): 4 Chair/Bsv-aw-Qqwyp Xfer(QC): 4 safe and sit to stand and transfer to chair. Gait Training Does the Patient Walk?: Yes Distance: 10' x 4 Walk 10 feet (QC): 4 Walk 50 ft with 2 Turns(QC): 88 Walk 150 ft (QC): 88 Gait Assistive Device: FWW Exercises Seated Therapy Exercises: Ankle pumps, Long arc quads, Hip flexion Seated Reps: 15 Standing: Marching, Retro gait Standing Reps: 10 (3 sets) Treatments trunk rotation breathing exercises x 5 reps each side/shoulder flexion deep breathing exercises x 5 reps Assessment Patient tolerated treatment well and is up in chair with needs met. Continue to address pulmonary function with exercises and increase ambulation as tolerated and allowed by equipment (vapotherm) PT Mechanical Manager Goals Mechanical Manager Goals PT [facility] Goals Time Frame: Feb 21, 2021 Roll Left & Right (QC): 5 Sit to Lying (QC): 5 Lying-Sitting on Side/Bed(QC): 5 Sit to Stand (QC): 5 Chair/Jcb-ya-Lrszh Xfer(QC): 5 Toilet Transfer (QC): 5 Car Transfer (QC): 5 Does the Patient Walk: Yes Walk 10 feet (QC): 5 Walk 50ft with 2 Turns (QC): 5 Walk 150 ft (QC): 9 Walking 10ft on Uneven Surface: 5 1 Step (curb) (QC): 9 4 Steps (QC): 9 12 Steps (QC): 9 Picking up an Object (QC): 9 Wheel 50 feet with 2 turns (QC: 9 Wheel 150 feet: 9 PT Plan Treatment/Plan Treatment Plan: Continue Plan of Care Treatment Plan: Bed Mobility, Education, Functional Activity Glenn, Functional Strength, Gait, Safety, Therapeutic Exercise, Transfers Treatment Duration: Feb 21, 2021 Frequency: 6 times per week Estimated Hrs Per Day: .25 hour per day Patient and/or Family Agrees t: Yes Time/GCodes Time In: 1010 Time Out: 1034 Total Billed Treatment Time: 24 Total Billed Treatment 1 visit EX x 2 24 min CLAY HOLGUIN PT Feb 05, 2021 11:25
--- NOTE | 2021-02-05 15:47 | Occupational Therapy Eval ---
OT Evaluation-General/PLF Medical Diagnosis Admission Date Feb 03, 2021 at 13:40 Medical Diagnosis: pneumonia Onset Date: Jan 31, 2021 Therapy Diagnosis Therapy Diagnosis: Impaired ADLs Height/Weight Height (Feet): 5 Height (Inches): 11.00 Weight (Pounds): 282 Weight (Ounces): 0.0 Precautions Precautions/Isolations: Fall Prevention, Standard Precautions Referral Physician: Gamal Referral Reason: Evaluation/Treatment Medical History Pertinent Medical History: CAD, DM, HTN Reviewed History: Yes Social History Home: Multilevel Current Living Status: Spouse Entry Into Home: Elevator (power stair lift) SWB status secondary to worsening pneumonia. Current vapotherm 70%. Pt reports living with in a house. He uses a chair lift into the basement which is where he resides. He uses a w/c at baseline but is able to ambulate short distances with walker and transfer in/out of w/c without assist. He was indep with adls and his completes all IADLs. He has a walk in shower with a shower chair/grab bars and was using a talent development consultant for LB dressing. Pt verbalizes that his dons socks for him and he recently bought new adaptive shoes that he can don without assist. ADL-Prior Level of Function SCALE: Activities may be completed with or without assistive devices. 7-Oslvraigdh-reitlwz completes the activity by him/herself with no assistance from a helper. 5-Set-up or Clean-up Assistance-helper sets up or cleans up; patient completes activity. [place] assists only prior to or following the activity. 4-Supervision or Touching Assistance-helper provides verbal cues and/or touching/steadying and/or contact guard assistance as patient completes activity. Assistance may be provided throughout the activity or intermittently. 3-Partial/Moderate Assistance-helper does LESS THAN HALF the effort. [place] l ifts, holds or supports trunk or limbs, but provides less than half the effort. 2-Substantial/Maximal Assistance-helper does MORE THAN HALF the effort. [place] lifts or holds trunk or limbs and provides more than half the effort. 4-Ajwthjnlb-ffychx does ALL the effort. Patient does none of the effort to complete the activity. Or, the assistance of 2 or more helpers is required for t he patient to complete the activity. If activity was not attempted, code reason: 7-Patient Refused. 9-Not Applicable-not attempted and the patient did not perform the activity before the current illness, exacerbation or injury. 10-Not Attempted due to Environmental Limitations-(lack of equipment, weather restraints, etc.). 88-Not Attempted due to Medical Conditions or Safety Concerns. Self Care: Independent Functional Cognition: Independent DME/Equipment: Bath Chair, Grab Bars, [address] Self: Yes OT Current Status Subjective "this bed is so hard to get out of, or I would get up more frequently." Mental Status/Objective Patient Orientation: Person, Place, Time, Situation Attachments: Anguiano Catheter, Oxygen, Other-See Comments Current Upper Extremity ROM Pt reports limited RUE shoulder ROM for past 2 years, denies fall or injury. Able to complete 3/4 AROM. Elbow-distally WFL. LUE-wfl Upper Extremity Strength 3+/5 throughout Vapotherm ADL-Treatment Eating (QC): 5 Oral Hygiene (QC): 4 Shower/Bathe Self (QC): 3 (Per clinical Judgement) Upper Body Dressing (QC): 3 (Per clinical Judgement, min a for sitting balance) Lower Body Dressing (QC): 3 (per clinical judgement) On/Off Footwear (QC): 9 Toileting Hygiene (QC): 2 Pt sleeping in bed at OT arrival. Easy to rouse. Supine>sit with HOB slightly elevated- Mod A to elevate torso. Extra time to transition legs off EOB. Initial Min A needed for sitting balance, improves post cues for posture and to support feet on floor. He reports using a talent development consultant at baseline to assist in donning LB clothing. No equipment present during eval to assess. Sit<>Stand with min a for initial lift. Pt requires BUE support on walker to maintain balance and thus would need assist with clothing management and leatha care at this time. He reports his dons his socks for him at baseline. In standing, pt unable to lift foot off floor due to LE weakness/fatigue. Assist needed to return BLE's into bed. Pt supine in bed, all needs within reach at end of session. Education OT Patient Education: Correct positioning, Energy conservation, Modified ADL techniques, Progress toward Goal/Update tx plan, Purpose of tx/functional activities, Rehab process, Safety issues, Transfer techniques Teaching Recipient: Patient Teaching Methods: Demonstration, Discussion Response to Teaching: Verbalize Understanding, Return Demonstration, Reinforcement Needed OT Banquet Chef Goals Banquet Chef Goals Eating (QC): 6 Oral Hygiene (QC): 5 Toileting Hygiene (QC): 4 Shower/Bathe Self (QC): 4 Upper Body Dressing (QC): 5 Lower Body Dressing (QC): 4 (with use of AE PRN) On/Off Footwear (QC): 9 1=Demonstrate adherence to instructed precautions during ADL tasks. 2=Patient will verbalize/demonstrate understanding of assistive devices/modifications for ADL. 3=Patient will improve strength/tolerance for activity to enable patient to perform ADL's. OT Education/Plan Problem List/Assessment Assessment: Decreased Activ Tolerance, Decreased UE Strength, Impaired Bed Mobility, Impaired Funct Balance, Impaired Self-Care Skills, Restricted Funct UE ROM Discharge Recommendations Plan/Recommendations: Continue POC Therapy Discharge Recommendati: Post Acute OT Treatment Plan/Plan of Care Treatment,Training & Education: Yes Patient would benefit from OT for education, treatment and training to promote independence in ADL's, mobility, safety and/or upper extremity function for ADL' s. Plan of Care: ADL Retraining, Functional Mobility, UE Funct Exercise/Act, W/C Management Training Treatment Duration: Feb 19, 2021 Frequency: 5 times per week Estimated Hrs Per Day: .25 hour per day Agreement: Yes Rehab Potential: Guarded Time/GCodes Start Time: 15:15 Stop Time: 15:40 Total Time Billed (hr/min): 25 Billed Treatment Time 1, EVM, 1, ADL Karmen Hicks OT Feb 05, 2021 15:47
[2021-02-05] MEDS: PANTOPRAZOLE 40 MG (PROTONIX) TAB PO SCH (17:51)
[2021-02-05] MEDS: ENOXAPARIN 40 MG/0.4 ML (LOVENOX) SYR SC SCH (19:49)
[2021-02-05] MEDS: DULoxetine 30 MG (CYMBALTA) CAP PO SCH (19:50)
[2021-02-05 20:12] VITALS: BP 130/75
[2021-02-05] MEDS: MELATONIN 10 MG TABLET PO PRN (22:26)
[2021-02-06 05:11] LABS: BASOPHILS # (AUTO) 0.1 10^3/uL (0.0-0.1); BASOPHILS % (AUTO) 1 % (0-10); EOSINOPHILS # (AUTO) 0.5 10^3/uL (0.0-0.3); EOSINOPHILS % (AUTO) 7 % (0-10); HEMATOCRIT 37 % (40-54); HEMOGLOBIN 11.1 g/dL (13.3-17.7); LYMPHOCYTES # (AUTO) 1.1 10^3/uL (1.0-4.0); LYMPHOCYTES % (AUTO) 13 % (12-44); MEAN CORPUSCULAR HEMOGLOBIN 27 pg (25-34); MEAN CORPUSCULAR HGB CONC 30 g/dL (32-36); MEAN CORPUSCULAR VOLUME 90 fL (80-99); MEAN PLATELET VOLUME 11.5 fL (9.0-12.2); MONOCYTES # (AUTO) 0.5 10^3/uL (0.0-1.0); MONOCYTES % (AUTO) 6 % (0-12); NEUTROPHILS % (AUTO) 72 % (42-75); PLATELET COUNT 191 10^3/uL (130-400); WHITE BLOOD COUNT 8.2 10^3/uL (4.3-11.0)
[2021-02-06] MEDS: inSUlin ASPART (NovoLOG) 1 UNIT/0.01 ML (CHARGE PER UNIT) SC SCH ×4 (05:16→21:41)
[2021-02-06] MEDS: LEVOTHYROXINE 100 MCG (LEVOTHROID) TAB PO SCH (05:17)
[2021-02-06] MEDS: LEVOTHYROXINE 50 MCG (LEVOTHROID) TAB PO SCH (05:17)
[2021-02-06] MEDS: CATHETER FLUSH 10 ML SYR IV SCH ×3 (05:17→23:38)
[2021-02-06 05:28] LABS: CALCIUM 9.2 MG/DL (8.5-10.1)
[2021-02-06 05:32] LABS: CREATININE SERUM 0.71 MG/DL (0.60-1.30)
[2021-02-06 07:12] VITALS: BP 126/61
[2021-02-06] MEDS: RT-ALBUTEROL/IPRATROPIUM 3 ML (DUONEB) VIAL INH SCH ×3 (07:49→21:30)
[2021-02-06] MEDS: TOLTERODINE LA 2 MG (DETROL LA) CAP PO SCH (08:57)
[2021-02-06] MEDS: FUROSEMIDE 40 MG (LASIX) TAB PO SCH (08:57)
[2021-02-06] MEDS: PREGABALIN 150 MG (LYRICA) CAPSULE PO SCH ×2 (08:57→21:49)
[2021-02-06] MEDS: ASPIRIN E.C. 81 MG (ECOTRIN) TAB PO SCH (08:57)
[2021-02-06] MEDS: guaiFENesin (MUCINEX) 600 MG TAB PO SCH ×2 (08:57→21:42)
[2021-02-06] MEDS: SENNA W/DOCUSATE (SENOKOT S) TABLET PO SCH ×2 (08:57→21:42)
[2021-02-06] MEDS: CEFEPIME INJECTION 2,000 MG in WATER (STERILE) FOR INJECTION 20 ML IV SCH ×2 (11:43→23:38)
--- NOTE | 2021-02-06 11:56 | Physical Therapy Daily Note ---
PT Daily Note-Current Subjective Patient agrees to PT. Mental Status Patient Orientation: Normal For Age Attachments: Oxygen (vapotherm) Transfers SCALE: Activities may be completed with or without assistive devices. 4-Fwhlvgbmxo-czcgxxo completes the activity by him/herself with no assistance from a helper. 5-Set-up or Clean-up Assistance-helper sets up or cleans up; patient completes activity. [place] assists only prior to or following the activity. 4-Supervision or Touching Assistance-helper provides verbal cues and/or touching/steadying and/or contact guard assistance as patient completes activity. Assistance may be provided throughout the activity or intermittently. 3-Partial/Moderate Assistance-helper does LESS THAN HALF the effort. [place] lifts, holds or supports trunk or limbs, but provides less than half the effort. 2-Substantial/Maximal Assistance-helper does MORE THAN HALF the effort. [place] lifts or holds trunk or limbs and provides more than half the effort. 4-Yhrwtpcgk-afqgjh does ALL the effort. Patient does none of the effort to complete the activity. Or, the assistance of 2 or more helpers is required for the patient to complete the activity. If activity was not attempted, code reason: 7-Patient Refused. 9-Not Applicable-not attempted and the patient did not perform the activity before the current illness, exacerbation or injury. 10-Not Attempted due to Environmental Limitations-(lack of equipment, weather restraints, etc.). 88-Not Attempted due to Medical Conditions or Safety Concerns. Sit to Stand (QC): 4 (SBA) Gait Training Does the Patient Walk?: Yes Distance: 25' x 4 Walk 10 feet (QC): 4 (SBA (limited by vapotherm tubing)) Gait Assistive Device: FWW flexed knee posture with ambulation Treatments reviewed deep breathing exercises with trunk rotation and shoulder flexion to expand rib cage Assessment Current Status: Excellent Progress PT Detention Goals Detention Goals PT Detention Goals Time Frame: Feb 21, 2021 Roll Left & Right (QC): 5 Sit to Lying (QC): 5 Lying-Sitting on Side/Bed(QC): 5 Sit to Stand (QC): 5 Chair/Wta-gy-Kngts Xfer(QC): 5 Toilet Transfer (QC): 5 Car Transfer (QC): 5 Does the Patient Walk: Yes Walk 10 feet (QC): 5 Walk 50ft with 2 Turns (QC): 5 Walk 150 ft (QC): 9 Walking 10ft on Uneven Surface: 5 1 Step (curb) (QC): 9 4 Steps (QC): 9 12 Steps (QC): 9 Picking up an Object (QC): 9 Wheel 50 feet with 2 turns (QC: 9 Wheel 150 feet: 9 PT Plan Treatment/Plan Treatment Plan: Continue Plan of Care Treatment Plan: Bed Mobility, Education, Functional Activity Glenn, Functional Strength, Gait, Safety, Therapeutic Exercise, Transfers Treatment Duration: Feb 21, 2021 Frequency: 6 times per week Estimated Hrs Per Day: .25 hour per day Patient and/or Family Agrees t: Yes Time/GCodes Time In: 1111 Time Out: 1126 Total Billed Treatment Time: 15 Total Billed Treatment 1 visit FA 15 min CLAY HOLGUIN PT Feb 06, 2021 11:56
--- NOTE | 2021-02-06 13:41 | Progress Note - Hospitalist ---
Subjective HPI/CC On Admission Date Seen by Provider: Feb 06, 2021 Time Seen by Provider: 10:25 Subjective/Events-last exam He has no complaints. He is sitting in his chair. He is not short of breath. He has a cough which is unchanged. He denies fevers. Objective Exam Vital Signs Vital Signs Date Time Temp Pulse Resp B/P (MAP) Pulse Ox O2 Delivery O2 Flow Rate FiO2 02/06/21 08:00 93 Vapotherm 20.00 70 02/06/21 07:12 36.6 80 20 126/61 (82) Capillary Refill : General Appearance: No Apparent Distress, WD/WN Respiratory: Lungs Clear, Normal Breath Sounds, No Respiratory Distress, Accessory Muscle Use, Other (wearing Vapotherm) Cardiovascular: Regular Rate, Rhythm, No Edema, No Murmur Gastrointestinal: Normal Bowel Sounds, Non Tender, Soft Extremity: Normal Inspection, Non Tender, No Pedal Edema Neurologic/Psychiatric: Alert, Oriented x3, No Motor/Sensory Deficits, Normal Mood/Affect Skin: Normal Color, Warm/Dry Results/Procedures Lab Laboratory Tests 02/06/21 04:25 Patient resulted labs reviewed. Imaging: Reviewed Imaging Report Assessment/Plan Assessment and Plan Assess & Plan/Chief Complaint Sepsis due to PNA Acute respiratory failure with hypoxia Continue IV antibiotics Continue Vapotherm Repeat chest xray tomorrow CAD HTN Aortic stenosis HLD Hypothyroidism BPH s/p SPT Continue home meds DVT prophylaxis: Lovenox Diagnosis/Problems Diagnosis/Problems (1) Sepsis Status: Acute (2) Pneumonia Status: Acute (3) Acute respiratory failure with hypoxia Status: Acute NAREN MCMAHON MD Feb 06, 2021 13:41
--- NOTE | 2021-02-06 14:03 | Occupational Ther Daily Note ---
OT Current Status-Daily Note Subjective Pt denies any pain, reports just getting back into bed after sitting up in chair for 3 hours. Mental Status/Objective Attachments: Anguiano Catheter, IV, Oxygen Currently on 65% vapotherm. ADL-Treatment Therapy Code Descriptions/Definitions Functional [place] Measure: 0=Not Assessed/NA 4=Minimal Assistance 1=Total Assistance 5=Supervision or Setup 2=Maximal Assistance 6=Modified [place] 3=Moderate Assistance 7=Complete IndependenceSCALE: Activities may be completed with or without assistive devices. 4-Viqzxrlews-hulupyp completes the activity by him/herself with no assistance from a helper. 5-Set-up or Clean-up Assistance-helper sets up or cleans up; patient completes activity. [place] assists only prior to or following the activity. 4-Supervision or Touching Assistance-helper provides verbal cues and/or touching/steadying and/or contact guard assistance as patient completes activity. Assistance may be provided throughout the activity or intermittently. 3-Partial/Moderate Assistance-helper does LESS THAN HALF the effort. [place] lifts, holds or supports trunk or limbs, but provides less than half the effort. 2-Substantial/Maximal Assistance-helper does MORE THAN HALF the effort. [place] lifts or holds trunk or limbs and provides more than half the effort. 6-Tkreiiiau-ceaclg does ALL the effort. Patient does none of the effort to complete the activity. Or, the assistance of 2 or more helpers is required for the patient to complete the activity. If activity was not attempted, code reason: 7-Patient Refused. 9-Not Applicable-not attempted and the patient did not perform the activity before the current illness, exacerbation or injury. 10-Not Attempted due to Environmental Limitations-(lack of equipment, weather restraints, etc.). 88-Not Attempted due to Medical Conditions or Safety Concerns. Other Treatment Supine>sit with HOB slightly elevated- Min A to elevate torso. Extra time to transition legs off EOB. Good recall on cues/education provided during previous session. While sitting EOB, pt completed UE exercises with red theraband. Pt able to complete all movements through full range. Short rest breaks needed with cues to not hold breath during exercises. 1x10 in all planes (shoulder/elbow). Pt asks appropriate questions and requests specific exercises that will improve lung capacity. Pt supine in bed, all needs within reach at end of session. Education OT Patient Education: Energy conservation, Exercise program, Progress toward Goal/Update tx plan, Purpose of tx/functional activities Teaching Recipient: Patient Teaching Methods: Demonstration, Discussion Response to Teaching: Verbalize Understanding, Return Demonstration OT Housecalls Nurse Goals Housecalls Nurse Goals Eating (QC): 6 Oral Hygiene (QC): 5 Toileting Hygiene (QC): 4 Shower/Bathe Self (QC): 4 Upper Body Dressing (QC): 5 Lower Body Dressing (QC): 4 (with use of AE PRN) On/Off Footwear (QC): 9 1=Demonstrate adherence to instructed precautions during ADL tasks. 2=Patient will verbalize/demonstrate understanding of assistive devices/modifications for ADL. 3=Patient will improve strength/tolerance for activity to enable patient to perform ADL's. OT Education/Plan Problem List/Assessment Assessment: Decreased Activ Tolerance, Decreased UE Strength, Impaired Funct Balance, Impaired Self-Care Skills Discharge Recommendations Plan/Recommendations: Continue POC Treatment Plan/Plan of Care Treatment,Training & Education: Yes Patient would benefit from OT for education, treatment and training to promote independence in ADL's, mobility, safety and/or upper extremity function for ADL's. Plan of Care: ADL Retraining, Functional Mobility, UE Funct Exercise/Act, W/C Management Training Treatment Duration: Feb 19, 2021 Frequency: 5 times per week Estimated Hrs Per Day: .25 hour per day Agreement: Yes Rehab Potential: Guarded Time/GCodes Start Time: 13:25 Stop Time: 13:41 Total Time Billed (hr/min): 16 Billed Treatment Time 1, EX Karmen Hicks OT Feb 06, 2021 14:03
[2021-02-06] MEDS: PANTOPRAZOLE 40 MG (PROTONIX) TAB PO SCH (16:52)
[2021-02-06 19:24] VITALS: BP 118/57
[2021-02-06] MEDS: DULoxetine 30 MG (CYMBALTA) CAP PO SCH (21:43)
[2021-02-06] MEDS: ENOXAPARIN 40 MG/0.4 ML (LOVENOX) SYR SC SCH (21:43)
[2021-02-06] MEDS: MELATONIN 10 MG TABLET PO PRN (23:38)
[2021-02-07] MEDS: RT-ALBUTEROL/IPRATROPIUM 3 ML (DUONEB) VIAL INH SCH ×4 (03:23→21:32)
[2021-02-07] MEDS: inSUlin ASPART (NovoLOG) 1 UNIT/0.01 ML (CHARGE PER UNIT) SC SCH ×4 (06:49→20:33)
[2021-02-07] MEDS: LEVOTHYROXINE 100 MCG (LEVOTHROID) TAB PO SCH (06:50)
[2021-02-07] MEDS: LEVOTHYROXINE 50 MCG (LEVOTHROID) TAB PO SCH (06:50)
[2021-02-07] MEDS: CATHETER FLUSH 10 ML SYR IV SCH ×3 (06:50→23:12)
[2021-02-07 08:00] VITALS: BP 110/68
--- NOTE | 2021-02-07 08:32 | Diagnostic Imaging Report ---
EXAMINATION: Chest radiograph, portable AP view. DATE: 02/07/2021 4:09 AM INDICATION: 80-year-old male, shortness of breath, pneumonia. COMPARISON: February 03, 2021. FINDINGS: Heart size and mediastinal contours are unchanged. There is no identified pneumothorax. There is multifocal bilateral lung consolidation which is essentially unchanged. IMPRESSION: 1. Grossly unchanged nonspecific multifocal bilateral lung consolidation. Dictated by: Dictated on workstation # [id number]
[2021-02-07] MEDS: ASPIRIN E.C. 81 MG (ECOTRIN) TAB PO SCH (09:12)
[2021-02-07] MEDS: PREGABALIN 150 MG (LYRICA) CAPSULE PO SCH ×2 (09:13→20:32)
[2021-02-07] MEDS: FUROSEMIDE 40 MG (LASIX) TAB PO SCH (09:13)
[2021-02-07] MEDS: guaiFENesin (MUCINEX) 600 MG TAB PO SCH ×2 (09:13→20:32)
[2021-02-07] MEDS: TOLTERODINE LA 2 MG (DETROL LA) CAP PO SCH (09:16)
[2021-02-07] MEDS: SENNA W/DOCUSATE (SENOKOT S) TABLET PO SCH ×2 (09:16→20:32)
--- NOTE | 2021-02-07 09:48 | Physical Therapy Daily Note ---
PT Daily Note-Current Subjective Pt supine in bed upon arrival to room, agreeable to PT session. No reports of pain. Appearance Following session, pt up in bedside chair with tray table, call light and phone within reach. All needs met Mental Status Patient Orientation: Person Vapotherm 65% Transfers SCALE: Activities may be completed with or without assistive devices. 7-Olyppiaaxa-xbvkzyw completes the activity by him/herself with no assistance from a helper. 5-Set-up or Clean-up Assistance-helper sets up or cleans up; patient completes activity. [place] assists only prior to or following the activity. 4-Supervision or Touching Assistance-helper provides verbal cues and/or touching/steadying and/or contact guard assistance as patient completes activity. Assistance may be provided throughout the activity or intermittently. 3-Partial/Moderate Assistance-helper does LESS THAN HALF the effort. [place] lifts, holds or supports trunk or limbs, but provides less than half the effort. 2-Substantial/Maximal Assistance-helper does MORE THAN HALF the effort. [place] lifts or holds trunk or limbs and provides more than half the effort. 1-Cszfiluod-ryrsxt does ALL the effort. Patient does none of the effort to complete the activity. Or, the assistance of 2 or more helpers is required for the patient to complete the activity. If activity was not attempted, code reason: 7-Patient Refused. 9-Not Applicable-not attempted and the patient did not perform the activity before the current illness, exacerbation or injury. 10-Not Attempted due to Environmental Limitations-(lack of equipment, weather restraints, etc.). 88-Not Attempted due to Medical Conditions or Safety Concerns. Lying to Sitting/Side of Bed(Q: 4 Sit to Stand (QC): 4 SBA with all bed mobility, SBA sit to stand from elevated surfaces. Gait Training Distance: 25' x 3 Walk 10 feet (QC): 4 Gait Assistive Device: FWW Pt ambulation distance limited by vapotherm tubing. Bed moved to side and pt ambulates 25' total - to door and return to chair 3x with SBA, good sequencing, demonstrates forward flexed posture throughout gait. Assessment Current Status: Fair Progress Pt progressing well, will continue to progress activity as pt tolerates. PT Half-Way Goals Half-Way Goals PT Half-Way Goals Time Frame: Feb 21, 2021 Roll Left & Right (QC): 5 Sit to Lying (QC): 5 Lying-Sitting on Side/Bed(QC): 5 Sit to Stand (QC): 5 Chair/Mhy-ko-Pfnsk Xfer(QC): 5 Toilet Transfer (QC): 5 Car Transfer (QC): 5 Does the Patient Walk: Yes Walk 10 feet (QC): 5 Walk 50ft with 2 Turns (QC): 5 Walk 150 ft (QC): 9 Walking 10ft on Uneven Surface: 5 1 Step (curb) (QC): 9 4 Steps (QC): 9 12 Steps (QC): 9 Picking up an Object (QC): 9 Wheel 50 feet with 2 turns (QC: 9 Wheel 150 feet: 9 PT Plan Problem List Problem List: Activity Tolerance, Functional Strength, Safety, Balance, Gait, Transfer, Bed Mobility, ROM Treatment/Plan Treatment Plan: Continue Plan of Care Treatment Plan: Bed Mobility, Education, Functional Activity Glenn, Functional Strength, Gait, Safety, Therapeutic Exercise, Transfers Treatment Duration: Feb 21, 2021 Frequency: 6 times per week Estimated Hrs Per Day: .25 hour per day Patient and/or Family Agrees t: Yes Time/GCodes Time In: 823 Time Out: 847 Total Billed Treatment Time: 24 Total Billed Treatment 1 visit GT (24') ALE JIMÉNEZ PT Feb 07, 2021 09:48
[2021-02-07] MEDS ORDERED: CEFEPIME 2 GM/20 ML (MAXIPIME) VIAL ONE (11:15)
[2021-02-07] MEDS: CEFEPIME INJECTION 2,000 MG in WATER (STERILE) FOR INJECTION 20 ML IV SCH ×2 (11:54→23:12)
--- NOTE | 2021-02-07 14:01 | Progress Note - Cardiology ---
Cardiology SOAP Progress Note Subjective: Gen weakness and malaise present Shortness of breath with activity No cp or palp or syncope No n/v/d Objective: I&O/Vital Signs 02/07/21 02/07/21 02/07/21 02/07/21 03:25 08:00 08:00 08:49 B/P (MAP) 110/68 (82) Pulse Ox 91 93 96 O2 Delivery Vapotherm Vapotherm Vapotherm Vapotherm O2 Flow Rate 20.00 20.00 20.00 20.00 65.00 FiO2 65 55 65 02/07/21 08:56 Pulse Ox 93 O2 Delivery Vapotherm O2 Flow Rate 20.00 FiO2 55 02/07/21 00:00 Intake Total 910 ml Output Total 1200 ml Balance -290 ml Weight (Pounds): 282 Weight (Ounces): 0.0 Weight (Calculated Kilograms): 127.849603 Constitutional: AAO x 3, well-developed, well-nourished Respiratory: other Cardiovascular: regular rate-rhythm, S1 and S2, systolic murmur Gastrointestional: soft, audible bowel sounds Extremities: swelling Neurologic/Psychiatric: oriented x 3, other Skin: No rash on exposed areas, No ulcerations on exposed areas Results/Procedures: Labs Laboratory Tests 02/06/21 16:05: Glucometer 136H 02/06/21 20:47: Glucometer 136H 02/07/21 05:50: Glucometer 123H 02/07/21 11:20: Glucometer 129H Microbiology 02/03/21 Gram Stain - Final, Complete 02/03/21 Sputum Culture - Final, Complete Usual upper respiratory tonio Laboratory Tests 02/06/21 04:25 A/P: Assessment: Bilateral, multilobar pneumonia Chronic diastolic CHF, compensated CAD - s/p two cor stents in 1995 following [place], details unknown. - MPI of 01/18/19: no ischemia or infarction, hyperdynamic LV, LVEF 91% Aortic stenosis, moderte to severe. - Echo of 01/19/19: LVEF 70-75%, concentric LVH, mod dil of LA, severe (area 1.1), RVSP 20 mmHg - Echo of 09/08/20: LVEF 55-60%, grade 1 hong dysfxn, AoV could not be adequately interrogated, PASP 35-40 mmHg - Echo 09/30/20: LVEF 60-65%, mod (valve area 1.3 sq cm, mean peak grad 56, mean grad 34), PASP 25-30 mmHg Suprapubic cystostomy Quit smoking in 1995 H/o hypertension DJD H/o hyperlipidemia LILIAN, non-compliant with CPAP Mild COPD on PFTs of Mar 2019 Carotid u/s of 04/19/19: mild bilateral carotid art disease without evidence of hemodynamic significance AAA screening scan of 04/19/19: no evidence of AAA Bilat TKR in 2019 Bilat leg swelling due to venous insuff Plan: * Treatment of pneumonia is by the Hospitalist/Med svce * Diuretics if and when needed * Monitor labs from time to time [facility] THEODORE [facility] Feb 07, 2021 14:01
[2021-02-07] MEDS: PANTOPRAZOLE 40 MG (PROTONIX) TAB PO SCH (17:28)
[2021-02-07 19:43] VITALS: BP 110/62
[2021-02-07] MEDS: MELATONIN 10 MG TABLET PO PRN (20:32)
[2021-02-07] MEDS: DULoxetine 30 MG (CYMBALTA) CAP PO SCH (20:32)
[2021-02-07] MEDS: ENOXAPARIN 40 MG/0.4 ML (LOVENOX) SYR SC SCH (20:33)
[2021-02-08] MEDS: RT-ALBUTEROL/IPRATROPIUM 3 ML (DUONEB) VIAL INH SCH ×4 (02:54→21:23)
[2021-02-08] MEDS: inSUlin ASPART (NovoLOG) 1 UNIT/0.01 ML (CHARGE PER UNIT) SC SCH ×4 (05:45→20:18)
[2021-02-08] MEDS: CATHETER FLUSH 10 ML SYR IV SCH ×3 (06:05→22:55)
[2021-02-08] MEDS: LEVOTHYROXINE 50 MCG (LEVOTHROID) TAB PO SCH (06:05)
[2021-02-08] MEDS: LEVOTHYROXINE 100 MCG (LEVOTHROID) TAB PO SCH (06:05)
[2021-02-08 08:00] VITALS: BP 128/73
[2021-02-08] MEDS: SENNA W/DOCUSATE (SENOKOT S) TABLET PO SCH ×2 (09:03→20:17)
[2021-02-08] MEDS: PREGABALIN 150 MG (LYRICA) CAPSULE PO SCH ×2 (09:03→20:17)
[2021-02-08] MEDS: TOLTERODINE LA 2 MG (DETROL LA) CAP PO SCH (09:03)
[2021-02-08] MEDS: guaiFENesin (MUCINEX) 600 MG TAB PO SCH ×2 (09:03→20:17)
[2021-02-08] MEDS: FUROSEMIDE 40 MG (LASIX) TAB PO SCH (09:03)
[2021-02-08] MEDS: ASPIRIN E.C. 81 MG (ECOTRIN) TAB PO SCH (09:03)
[2021-02-08] MEDS: CEFEPIME INJECTION 2,000 MG in WATER (STERILE) FOR INJECTION 20 ML IV SCH ×2 (11:59→22:54)
--- NOTE | 2021-02-08 15:02 | Progress Note - Cardiology ---
Cardiology SOAP Progress Note Subjective: Somnolent. Does not report cp or palp or syncope or shortness of breath Objective: I&O/Vital Signs 02/08/21 02/08/21 02/08/21 08:00 08:00 08:32 Temp 36.7 Pulse 71 Resp 20 B/P (MAP) 128/73 (91) Pulse Ox 95 93 97 O2 Delivery Vapotherm Vapotherm Vapotherm O2 Flow Rate 20.00 20.00 20.00 45.00 FiO2 45 45 02/08/21 00:00 Intake Total 1350 ml Output Total 1850 ml Balance -500 ml Weight (Pounds): 282 Weight (Ounces): 0.0 Weight (Calculated Kilograms): 127.314157 Constitutional: well-developed, well-nourished, other (somnolent, difficult to awaken) Respiratory: other Cardiovascular: regular rate-rhythm, S1 and S2, systolic murmur Gastrointestional: soft, audible bowel sounds Extremities: swelling Neurologic/Psychiatric: other Skin: No rash on exposed areas, No ulcerations on exposed areas Results/Procedures: Labs Laboratory Tests 02/07/21 15:37: Glucometer 156H 02/07/21 20:08: Glucometer 157H 02/08/21 05:40: Glucometer 97 02/08/21 10:56: Glucometer 130H Microbiology 02/03/21 Gram Stain - Final, Complete 02/03/21 Sputum Culture - Final, Complete Usual upper respiratory tonio A/P: Assessment: Bilateral, multilobar pneumonia Chronic diastolic CHF, compensated CAD - s/p two cor stents in 1995 following [place], details unknown. - MPI of 01/18/19: no ischemia or infarction, hyperdynamic LV, LVEF 91% Aortic stenosis, moderte to severe. - Echo of 01/19/19: LVEF 70-75%, concentric LVH, mod dil of LA, severe (area 1.1), RVSP 20 mmHg - Echo of 09/08/20: LVEF 55-60%, grade 1 hong dysfxn, AoV could not be adequately interrogated, PASP 35-40 mmHg - Echo 09/30/20: LVEF 60-65%, mod (valve area 1.3 sq cm, mean peak grad 56, mean grad 34), PASP 25-30 mmHg Suprapubic cystostomy Quit smoking in 1995 H/o hypertension DJD H/o hyperlipidemia [place], non-compliant with CPAP Mild COPD on PFTs of Mar 2019 Carotid u/s of 04/19/19: mild bilateral carotid art disease without evidence of hemodynamic significance AAA screening scan of 04/19/19: no evidence of AAA Bilat TKR in 2019 Bilat leg swelling due to venous insuff Plan: * Treatment of pneumonia is by the Hospitalist/Med svce * Diuretics if and when needed * Monitor labs from time to time DONN THEODORE MD FACP [facility] Feb 08, 2021 15:02
[2021-02-08] MEDS: PANTOPRAZOLE 40 MG (PROTONIX) TAB PO SCH (17:02)
[2021-02-08 19:25] VITALS: BP 112/65
[2021-02-08] MEDS: ENOXAPARIN 40 MG/0.4 ML (LOVENOX) SYR SC SCH (20:17)
[2021-02-08] MEDS: DULoxetine 30 MG (CYMBALTA) CAP PO SCH (20:17)
[2021-02-08] MEDS: MELATONIN 10 MG TABLET PO PRN (22:54)
[2021-02-09] MEDS: RT-ALBUTEROL/IPRATROPIUM 3 ML (DUONEB) VIAL INH SCH ×4 (03:10→20:14)
[2021-02-09] MEDS: CATHETER FLUSH 10 ML SYR IV SCH ×3 (05:17→20:27)
[2021-02-09] MEDS: inSUlin ASPART (NovoLOG) 1 UNIT/0.01 ML (CHARGE PER UNIT) SC SCH ×4 (05:17→19:27)
[2021-02-09] MEDS: LEVOTHYROXINE 50 MCG (LEVOTHROID) TAB PO SCH (05:46)
[2021-02-09] MEDS: LEVOTHYROXINE 100 MCG (LEVOTHROID) TAB PO SCH (05:47)
[2021-02-09 08:24] VITALS: BP 103/62
[2021-02-09] MEDS: PREGABALIN 150 MG (LYRICA) CAPSULE PO SCH ×2 (08:41→20:26)
[2021-02-09] MEDS: TOLTERODINE LA 2 MG (DETROL LA) CAP PO SCH (08:41)
[2021-02-09] MEDS: FUROSEMIDE 40 MG (LASIX) TAB PO SCH (08:41)
[2021-02-09] MEDS: SENNA W/DOCUSATE (SENOKOT S) TABLET PO SCH ×2 (08:41→20:26)
[2021-02-09] MEDS: ASPIRIN E.C. 81 MG (ECOTRIN) TAB PO SCH (08:41)
[2021-02-09] MEDS: guaiFENesin (MUCINEX) 600 MG TAB PO SCH ×2 (08:41→20:26)
--- NOTE | 2021-02-09 11:12 | Occupational Ther Daily Note ---
OT Current Status-Daily Note Subjective "The doctor said if I can get to 5L, I can go home." Appearance Pt left sitting in chair, all needs within reach at end of session. Mental Status/Objective Patient Orientation: Person, Place, Time, Situation Attachments: Anguiano Catheter, IV, Oxygen ADL-Treatment Partial sponge bath performed sitting in chair. Pt washed upper body, upper t highs and leatha area with set up/sba. He reports using a long handle sponge at home in order to reach LE's, thus he did not perform. He utilized yarn handler to thread BLE's into shorts with extra time. Desat to 86% post task. Recovers within 30 seconds with cues for PLB. Pt educated on use of pulse ox and when to take breaks/pace self. . He stood with SBA and alternated one hand on walker while other managed clothing over hips. No lob. New gown donned with set up. Pt reports his dons socks/shoes for him at baseline and will continue post d/c. He sat to brush teeth with set up assist. Pt on 6L o2 throughout ADLs Therapy Code Descriptions/Definitions Functional [place] Measure: 0=Not Assessed/NA 4=Minimal Assistance 1=Total Assistance 5=Supervision or Setup 2=Maximal Assistance 6=Modified [place] 3=Moderate Assistance 7=Complete IndependenceSCALE: Activities may be completed with or without assistive devices. 1-Cavaifvbmv-pftsxue completes the activity by him/herself with no assistance from a helper. 5-Set-up or Clean-up Assistance-helper sets up or cleans up; patient completes activity. [place] assists only prior to or following the activity. 4-Supervision or Touching Assistance-helper provides verbal cues and/or touching/steadying and/or contact guard assistance as patient completes activity. Assistance may be provided throughout the activity or intermittently. 3-Partial/Moderate Assistance-helper does LESS THAN HALF the effort. [place] lifts, holds or supports trunk or limbs, but provides less than half the effort. 2-Substantial/Maximal Assistance-helper does MORE THAN HALF the effort. [place] lifts or holds trunk or limbs and provides more than half the effort. 6-Kgfpdgubg-fmmbaf does ALL the effort. Patient does none of the effort to complete the activity. Or, the assistance of 2 or more helpers is required for the patient to complete the activity. If activity was not attempted, code reason: 7-Patient Refused. 9-Not Applicable-not attempted and the patient did not perform the activity before the current illness, exacerbation or injury. 10-Not Attempted due to Environmental Limitations-(lack of equipment, weather restraints, etc.). 88-Not Attempted due to Medical Conditions or Safety Concerns. Eating (QC): 6 Oral Hygiene (QC): 5 Bathing Location: L Arm, R Arm, L Upper Leg, R Upper Leg, Chest, Abdomen, Perineal Area Shower/Bathe Self (QC): 4 Upper Body Dressing (QC): 4 Lower Body Dressing (QC): 4 (with yarn handler) On/Off Footwear: 9 Education OT Patient Education: Correct positioning, Disease process, Energy conservation, Modified ADL techniques, Progress toward Goal/Update tx plan, Purpose of tx/functional activities, Use of adapted equipment Teaching Recipient: Patient Teaching Methods: Demonstration, Discussion Response to Teaching: Verbalize Understanding, Return Demonstration OT [facility] [place] Goals Jail Goals Eating (QC): 6 Oral Hygiene (QC): 5 Toileting Hygiene (QC): 4 Shower/Bathe Self (QC): 4 Upper Body Dressing (QC): 5 Lower Body Dressing (QC): 4 (with use of AE PRN) On/Off Footwear (QC): 9 1=Demonstrate adherence to instructed precautions during ADL tasks. 2=Patient will verbalize/demonstrate understanding of assistive devices/modifications for ADL. 3=Patient will improve strength/tolerance for activity to enable patient to perform ADL's. OT Education/Plan Problem List/Assessment Assessment: Decreased Activ Tolerance, Decreased UE Strength, Impaired Self- Care Skills Discharge Recommendations Plan/Recommendations: Continue POC Comment Pt has necessary equipment Treatment Plan/Plan of Care Treatment,Training & Education: Yes Patient would benefit from OT for education, treatment and training to promote independence in ADL's, mobility, safety and/or upper extremity function for ADL's. Plan of Care: ADL Retraining, Functional Mobility, UE Funct Exercise/Act, W/C Management Training Treatment Duration: Feb 19, 2021 Frequency: 5 times per week Estimated Hrs Per Day: .25 hour per day Agreement: Yes Rehab Potential: Guarded Time/GCodes Start Time: 10:35 Stop Time: 11:02 Total Time Billed (hr/min): 27 Billed Treatment Time 1, ADL x2 Karmen Hicks OT Feb 09, 2021 11:12
[2021-02-09] MEDS: CEFEPIME INJECTION 2,000 MG in WATER (STERILE) FOR INJECTION 20 ML IV SCH (12:10)
--- NOTE | 2021-02-09 12:26 | Progress Note - Hospitalist ---
Subjective HPI/CC On Admission Date Seen by Provider: Feb 09, 2021 Time Seen by Provider: 12:22 Subjective/Events-last exam Patient reports doing well. Down to 6lpm. Discussed plan to be down to 5lpm prior to DC. He is agreeable to this plan. Objective Exam Vital Signs Vital Signs Date Time Temp Pulse Resp B/P (MAP) Pulse Ox O2 Delivery O2 Flow Rate FiO2 02/09/21 08:24 36.3 80 18 103/62 (76) 94 High Flow N/C 7.00 02/08/21 21:24 40 Capillary Refill : General Appearance: No Apparent Distress, Chronically ill, Obese Respiratory: Lungs Clear, No Respiratory Distress Cardiovascular: Regular Rate, Rhythm, No Murmur Neurologic/Psychiatric: Alert, Oriented x3 Results/Procedures Lab Patient resulted labs reviewed. Imaging: Reviewed Imaging Report Assessment/Plan Assessment and Plan Assess & Plan/Chief Complaint Sepsis due to PNA Acute respiratory failure with hypoxia Continue IV antibiotics Continue to wean oxygen Hopefully home tomorrow or Tuesday if he continues to do well. CAD HTN Aortic stenosis HLD Hypothyroidism BPH s/p SPT Continue home meds DVT prophylaxis: LIZANDRO Osuna MD Feb 09, 2021 12:26
--- NOTE | 2021-02-09 12:29 | Physical Therapy Daily Note ---
PT Daily Note-Current Subjective Pt up in hip chair, agreeable. Denies pain, reports he feels he is breathing better. Joking with nursing staff; "That's when you know I feel better when I start giving them a hard time". Mental Status Patient Orientation: Person, Place, Time, Situation Attachments: Oxygen Transfers SCALE: Activities may be completed with or without assistive devices. 5-Zixekegvha-ervwztp completes the activity by him/herself with no assistance from a helper. 5-Set-up or Clean-up Assistance-helper sets up or cleans up; patient completes activity. [place] assists only prior to or following the activity. 4-Supervision or Touching Assistance-helper provides verbal cues and/or touching/steadying and/or contact guard assistance as patient completes activity. Assistance may be provided throughout the activity or intermittently. 3-Partial/Moderate Assistance-helper does LESS THAN HALF the effort. [place] lifts, holds or supports trunk or limbs, but provides less than half the effort. 2-Substantial/Maximal Assistance-helper does MORE THAN HALF the effort. [place] lifts or holds trunk or limbs and provides more than half the effort. 9-Olgmtqzce-mvasyl does ALL the effort. Patient does none of the effort to complete the activity. Or, the assistance of 2 or more helpers is required for the patient to complete the activity. If activity was not attempted, code reason: 7-Patient Refused. 9-Not Applicable-not attempted and the patient did not perform the activity before the current illness, exacerbation or injury. 10-Not Attempted due to Environmental Limitations-(lack of equipment, weather restraints, etc.). 88-Not Attempted due to Medical Conditions or Safety Concerns. Sit to Stand (QC): 5 Weight Bearing Right Lower Extremity: Right Full Weight Bearing Left Lower Extremity: Left Full Weight Bearing Gait Training Does the Patient Walk?: Yes Distance: 25 Walk 10 feet (QC): 5 Gait Persons Needed: 1 Gait Assistive Device: FWW Pt ambulated 25' x 3 with seated recovery breaks with FWW with SBA. Pt on 6L O2, maintaining O2 sats > 91% with each trial with recovery to 96-97% within 1 minuted seated break. Treatments Gait with FWW in room, limited by high flow O2 tubing Assessment Current Status: Good Progress Pt tolerated very well. Maintaining O2 sats this date with short ambulation bouts. PT Pin Drafter Goals Jail Goals PT Pin Drafter Goals Time Frame: Feb 21, 2021 Roll Left & Right (QC): 5 Sit to Lying (QC): 5 Lying-Sitting on Side/Bed(QC): 5 Sit to Stand (QC): 5 Chair/Ysl-ht-Fmdtv Xfer(QC): 5 Toilet Transfer (QC): 5 Car Transfer (QC): 5 Does the Patient Walk: Yes Walk 10 feet (QC): 5 Walk 50ft with 2 Turns (QC): 5 Walk 150 ft (QC): 9 Walking 10ft on Uneven Surface: 5 1 Step (curb) (QC): 9 4 Steps (QC): 9 12 Steps (QC): 9 Picking up an Object (QC): 9 Wheel 50 feet with 2 turns (QC: 9 Wheel 150 feet: 9 PT Plan Problem List Problem List: Activity Tolerance, Functional Strength, Safety, Balance, Gait, Transfer, Bed Mobility Treatment/Plan Treatment Plan: Continue Plan of Care Treatment Plan: Bed Mobility, Education, Functional Activity [place], Functional Strength, Gait, Safety, Therapeutic Exercise, Transfers Treatment Duration: Feb 21, 2021 Frequency: 6 times per week Estimated Hrs Per Day: .25 hour per day Patient and/or Family Agrees t: Yes Time/GCodes Time In: 1130 Time Out: 1156 Total Billed Treatment Time: 26 Total Billed Treatment 1, FA x ' JESUS BALDWIN DPJacob Feb 09, 2021 12:29
--- NOTE | 2021-02-09 13:41 | Progress Note - Cardiology ---
Cardiology SOAP Progress Note Subjective: Gen malaise and weakness present No cp or palp or syncope No shortness of breath at rest, present with mild activity No n/v/d Objective: I&O/Vital Signs 02/09/21 02/09/21 03:11 08:24 Temp 36.3 Pulse 80 Resp 18 B/P (MAP) 103/62 (76) Pulse Ox 94 94 O2 Delivery High Flow N/C High Flow N/C O2 Flow Rate 6.00 7.00 02/09/21 00:00 Intake Total 1260 ml Output Total 2650 ml Balance -1390 ml Weight (Pounds): 282 Weight (Ounces): 0.0 Weight (Calculated Kilograms): 127.634458 Constitutional: well-developed, well-nourished, other (somnolent, difficult to awaken) Respiratory: other Cardiovascular: regular rate-rhythm, S1 and S2, systolic murmur Gastrointestional: soft, audible bowel sounds Extremities: swelling Neurologic/Psychiatric: other Skin: No rash on exposed areas, No ulcerations on exposed areas Results/Procedures: Labs Laboratory Tests 02/08/21 15:28: Glucometer 137H 02/08/21 20:03: Glucometer 119H 02/09/21 04:50: Glucometer 113H 02/09/21 11:44: Glucometer 137H Microbiology 02/03/21 Gram Stain - Final, Complete 02/03/21 Sputum Culture - Final, Complete Usual upper respiratory tonio A/P: Assessment: Bilateral, multilobar pneumonia Chronic diastolic CHF, compensated CAD - s/p two cor stents in 1995 following [place], details unknown. - MPI of 01/18/19: no ischemia or infarction, hyperdynamic LV, LVEF 91% Aortic stenosis, moderte to severe. - Echo of 01/19/19: LVEF 70-75%, concentric LVH, mod dil of LA, severe (area 1.1), RVSP 20 mmHg - Echo of 09/08/20: LVEF 55-60%, grade 1 hong dysfxn, AoV could not be adequately interrogated, PASP 35-40 mmHg - Echo 09/30/20: LVEF 60-65%, mod (valve area 1.3 sq cm, mean peak grad 56, mean grad 34), PASP 25-30 mmHg Suprapubic cystostomy Quit smoking in 1995 H/o hypertension DJD H/o hyperlipidemia LILIAN, non-compliant with CPAP Mild COPD on PFTs of Mar 2019 Carotid u/s of 04/19/19: mild bilateral carotid art disease without evidence of hemodynamic significance AAA screening scan of 04/19/19: no evidence of AAA Bilat TKR in 2018 Bilat leg swelling due to venous insuff Plan: * Treatment of pneumonia is by the Hospitalist/Med svce * Diuretics if and when needed * Monitor labs from time to time DONN THEODORE MD FACP FAC CCDS Feb 09, 2021 13:41
[2021-02-09] MEDS: PANTOPRAZOLE 40 MG (PROTONIX) TAB PO SCH (17:44)
[2021-02-09 19:39] VITALS: BP 112/67
[2021-02-09] MEDS: DULoxetine 30 MG (CYMBALTA) CAP PO SCH (20:26)
[2021-02-09] MEDS: ENOXAPARIN 40 MG/0.4 ML (LOVENOX) SYR SC SCH (20:26)
[2021-02-09] MEDS: MELATONIN 10 MG TABLET PO PRN (22:58)
[2021-02-10] MEDS: RT-ALBUTEROL/IPRATROPIUM 3 ML (DUONEB) VIAL INH SCH ×2 (02:34→07:47)
[2021-02-10] MEDS: LEVOTHYROXINE 50 MCG (LEVOTHROID) TAB PO SCH (06:12)
[2021-02-10] MEDS: LEVOTHYROXINE 100 MCG (LEVOTHROID) TAB PO SCH (06:12)
[2021-02-10] MEDS: CATHETER FLUSH 10 ML SYR IV SCH ×2 (06:13→13:51)
[2021-02-10] MEDS: inSUlin ASPART (NovoLOG) 1 UNIT/0.01 ML (CHARGE PER UNIT) SC SCH ×3 (06:15→15:18)
[2021-02-10 08:00] VITALS: BP 118/60
[2021-02-10] MEDS: ASPIRIN E.C. 81 MG (ECOTRIN) TAB PO SCH (08:37)
[2021-02-10] MEDS: SENNA W/DOCUSATE (SENOKOT S) TABLET PO SCH (08:37)
[2021-02-10] MEDS: FUROSEMIDE 40 MG (LASIX) TAB PO SCH (08:37)
[2021-02-10] MEDS: TOLTERODINE LA 2 MG (DETROL LA) CAP PO SCH (08:37)
[2021-02-10] MEDS: guaiFENesin (MUCINEX) 600 MG TAB PO SCH (08:37)
[2021-02-10] MEDS: PREGABALIN 150 MG (LYRICA) CAPSULE PO SCH (08:38)
--- NOTE | 2021-02-10 08:50 | Physical Therapy Daily Note ---
PT Daily Note-Current Subjective Patient in bed pre tx, agrees to PT, has no complaints of pain. Appearance Patient in hip chair post tx with nurse call, phone, tray, all needs met. Mental Status Patient Orientation: Person, Place, Situation Attachments: Oxygen, Anguiano Catheter Transfers SCALE: Activities may be completed with or without assistive devices. 2-Dtlvailpwq-kspmqyf completes the activity by him/herself with no assistance from a helper. 5-Set-up or Clean-up Assistance-helper sets up or cleans up; patient completes activity. [place] assists only prior to or following the activity. 4-Supervision or Touching Assistance-helper provides verbal cues and/or touching/steadying and/or contact guard assistance as patient completes activ ity. Assistance may be provided throughout the activity or intermittently. 3-Partial/Moderate Assistance-helper does LESS THAN HALF the effort. [place] lifts, holds or supports trunk or limbs, but provides less than half the effort. 2-Substantial/Maximal Assistance-helper does MORE THAN HALF the effort. [place] lifts or holds trunk or limbs and provides more than half the effort. 4-Uvhjihxls-yesecv does ALL the effort. Patient does none of the effort to complete the activity. Or, the assistance of 2 or more helpers is required for the patient to complete the activity. If activity was not attempted, code reason: 7-Patient Refused. 9-Not Applicable-not attempted and the patient did not perform the activity before the current illness, exacerbation or injury. 10-Not Attempted due to Environmental Limitations-(lack of equipment, weather restraints, etc.). 88-Not Attempted due to Medical Conditions or Safety Concerns. Roll Left & Right (QC): 6 Lying to Sitting/Side of Bed(Q: 3 Sit to Stand (QC): 4 Chair/Hkz-sj-Wpvwk Xfer(QC): 4 Weight Bearing Right Lower Extremity: Right Full Weight Bearing Left Lower Extremity: Left Full Weight Bearing Gait Training Distance: 25'x3 Walk 10 feet (QC): 4 Gait Persons Needed: 1 Gait Assistive Device: FWW SBA, slow but steady ambulation, his O2 stayed at 91% on 4L of O2 Treatments bed mobility and transfers, ambulation Assessment Current Status: Fair Progress improving endurance PT [facility]ci Goals Fci Goals PT [facility]ci Goals Time Frame: Feb 21, 2021 Roll Left & Right (QC): 5 Sit to Lying (QC): 5 Lying-Sitting on Side/Bed(QC): 5 Sit to Stand (QC): 5 Chair/Wil-ij-Vmvow Xfer(QC): 5 Toilet Transfer (QC): 5 Car Transfer (QC): 5 Does the Patient Walk: Yes Walk 10 feet (QC): 5 Walk 50ft with 2 Turns (QC): 5 Walk 150 ft (QC): 9 Walking 10ft on Uneven Surface: 5 1 Step (curb) (QC): 9 4 Steps (QC): 9 12 Steps (QC): 9 Picking up an Object (QC): 9 Wheel 50 feet with 2 turns (QC: 9 Wheel 150 feet: 9 PT Plan Problem List Problem List: Activity Tolerance, Functional Strength, Safety, Balance, Gait, Transfer, Bed Mobility, ROM Treatment/Plan Treatment Plan: Continue Plan of Care Treatment Plan: Bed Mobility, Education, Functional Activity Glenn, Functional Strength, Gait, Safety, Therapeutic Exercise, Transfers Treatment Duration: Feb 21, 2021 Frequency: 6 times per week Estimated Hrs Per Day: .25 hour per day Patient and/or Family Agrees t: Yes Safety Risks/Education Patient Education: Gait Training, Transfer Techniques, Correct Positioning, Safety Issues Teaching Recipient: Patient Teaching Methods: Demonstration, Discussion Response to Teaching: Reinforcement Needed Time/GCodes Time In: 815 Time Out: 830 Total Billed Treatment Time: 15 Total Billed Treatment 1 visit GT 15' MICHELLE FUNES PT Feb 10, 2021 08:50
--- NOTE | 2021-02-10 10:41 | CONSULTATION REPORT ---
DATE OF SERVICE: 02/10/2021 ATTENDING PHYSICIAN: Dr. Tse. SUMMARY: After reviewing the patient's record at the office and the hospital, this is an 80-year-old man that I did a suprapubic tube placement in 07/2019. He was due to come today to change his catheter as part of every 4 weeks and see me at the office on 02/18/2021. He asked me to see him today instead, which is fine. IMPRESSION: Urinary retention, neurogenic bladder, status post suprapubic cystostomy tube placement. PLAN: Change his catheter today, reschedule his appointment with me on 02/18/2021 to three-month and then continue coming every 4 weeks from today to change his suprapubic tube, call my office p.r.n. basis meanwhile. CC: Delphine Tse MD - requested, unable to deliver. Job ID: [id number] DocumentID: [id number] Dictated Date: 02/10/2021 10:13:49 Bed Manager Date: 02/10/2021 10:40:19 Dictated By: FANG MCMILLAN MD
--- NOTE | 2021-02-10 11:28 | Occupational Ther Daily Note ---
OT Current Status-Daily Note Subjective Pt pleasant and in good spirits this date. He reports walking with PT and staying above 91% on 4L. Mental Status/Objective Patient Orientation: Person, Place, Time, Situation Attachments: Suprapubic Catheter ADL-Treatment Therapy Code Descriptions/Definitions Functional [place] Measure: 0=Not Assessed/NA 4=Minimal Assistance 1=Total Assistance 5=Supervision or Setup 2=Maximal Assistance 6=Modified [place] 3=Moderate Assistance 7=Complete IndependenceSCALE: Activities may be completed with or without assistive devices. 8-Taponjzcgw-gkptehz completes the activity by him/herself with no assistance from a helper. 5-Set-up or Clean-up Assistance-helper sets up or cleans up; patient completes activity. [place] assists only prior to or following the activity. 4-Supervision or Touching Assistance-helper provides verbal cues and/or touching/steadying and/or contact guard assistance as patient completes activity. Assistance may be provided throughout the activity or intermittently. 3-Partial/Moderate Assistance-helper does LESS THAN HALF the effort. [place] lifts, holds or supports trunk or limbs, but provides less than half the effort. 2-Substantial/Maximal Assistance-helper does MORE THAN HALF the effort. [place] lifts or holds trunk or limbs and provides more than half the effort. 5-Uayzdsptb-liuadw does ALL the effort. Patient does none of the effort to complete the activity. Or, the assistance of 2 or more helpers is required for the patient to complete the activity. If activity was not attempted, code reason: 7-Patient Refused. 9-Not Applicable-not attempted and the patient did not perform the activity before the current illness, exacerbation or injury. 10-Not Attempted due to Environmental Limitations-(lack of equipment, weather restraints, etc.). 88-Not Attempted due to Medical Conditions or Safety Concerns. Other Treatment Sitting EOB, pt participated in UE exercises with red theraband. Pt able to recall all but 1 exercise (bicep curl) from past sessions. Good tolerance throughout. 12 x1 in all planes. O2 spot checked throughout exercises, remained >90% on 4L. Education OT Patient Education: Exercise program, Progress toward Goal/Update tx plan, Purpose of tx/functional activities Teaching Recipient: Patient Teaching Methods: Discussion Response to Teaching: Verbalize Understanding, Return Demonstration OT [facility] Goals [facility] Goals Eating (QC): 6 Oral Hygiene (QC): 5 Toileting Hygiene (QC): 4 Shower/Bathe Self (QC): 4 Upper Body Dressing (QC): 5 Lower Body Dressing (QC): 4 (with use of AE PRN) On/Off Footwear (QC): 9 1=Demonstrate adherence to instructed precautions during ADL tasks. 2=Patient will verbalize/demonstrate understanding of assistive devices/modifications for ADL. 3=Patient will improve strength/tolerance for activity to enable patient to perform ADL's. OT Education/Plan Discharge Recommendations Plan/Recommendations: Continue POC Treatment Plan/Plan of Care Treatment,Training & Education: Yes Patient would benefit from OT for education, treatment and training to promote independence in ADL's, mobility, safety and/or upper extremity function for ADL's. Plan of Care: ADL Retraining, Functional Mobility, UE Funct Exercise/Act, W/C Management Training Treatment Duration: Feb 19, 2021 Frequency: 5 times per week Estimated Hrs Per Day: .25 hour per day Agreement: Yes Rehab Potential: Guarded Time/GCodes Start Time: 11:09 Stop Time: 11:22 Total Time Billed (hr/min): 13 Billed Treatment Time 1, EX Karmen Hicks OT Feb 10, 2021 11:28
--- NOTE | 2021-02-10 11:46 | Progress Note - Cardiology ---
Cardiology SOAP Progress Note Subjective: Gen weakness present Shortness of breath is improvin No cp or palp or syncope or swelling Objective: I&O/Vital Signs 02/10/21 02/10/21 02/10/21 02/10/21 02:35 07:49 08:00 10:23 Temp 36.2 Pulse 78 Resp 18 B/P (MAP) 118/60 (79) Pulse Ox 94 93 93 O2 Delivery High Flow N/C High Flow N/C High Flow N/C High Flow N/C O2 Flow Rate 6.00 4.00 4.00 5.00 02/09/21 23:59 Intake Total 1660 ml Output Total 2525 ml Balance -865 ml Weight (Pounds): 282 Weight (Ounces): 0.0 Weight (Calculated Kilograms): 127.694655 Constitutional: well-developed, well-nourished, other (somnolent, difficult to awaken) Respiratory: other Cardiovascular: regular rate-rhythm, S1 and S2, systolic murmur Gastrointestional: soft, audible bowel sounds Extremities: swelling Neurologic/Psychiatric: other Skin: No rash on exposed areas, No ulcerations on exposed areas Results/Procedures: Labs Laboratory Tests 02/09/21 15:27: Glucometer 135H 02/09/21 19:25: Glucometer 126H 02/10/21 06:11: Glucometer 113H 02/10/21 10:43: Glucometer 120H Microbiology 02/03/21 Gram Stain - Final, Complete 02/03/21 Sputum Culture - Final, Complete Usual upper respiratory tonio A/P: Assessment: Bilateral, multilobar pneumonia Chronic diastolic CHF, compensated CAD - s/p two cor stents in 1995 following [place], details unknown. - MPI of 01/18/19: no ischemia or infarction, hyperdynamic LV, LVEF 91% Aortic stenosis, moderte to severe. - Echo of 01/19/19: LVEF 70-75%, concentric LVH, mod dil of LA, severe (area 1.1), RVSP 20 mmHg - Echo of 09/08/20: LVEF 55-60%, grade 1 hong dysfxn, AoV could not be adequately interrogated, PASP 35-40 mmHg - Echo 09/30/20: LVEF 60-65%, mod (valve area 1.3 sq cm, mean peak grad 56, mean grad 34), PASP 25-30 mmHg Suprapubic cystostomy Quit smoking in 1995 H/o hypertension DJD H/o hyperlipidemia LILIAN, non-compliant with CPAP Mild COPD on PFTs of Mar 2019 Carotid u/s of 04/19/19: mild bilateral carotid art disease without evidence of hemodynamic significance AAA screening scan of 04/19/19: no evidence of AAA Bilat TKR in 2019 Bilat leg swelling due to venous insuff Plan: * Treatment of pneumonia is by the Hospitalist/Med svce * Ok to d/c from cardiac standpoint * Outpt cardiac f/u advised DONN THEODORE MD FACP FAC CCDS Feb 10, 2021 11:46
--- NOTE | 2021-02-10 12:28 | D/C HH Face to Face Order ---
D/C Face to Face Orders Instructions for Patient [facility], Patient Instructions/FollowUp: Please continue to take your medications as written. Please follow up with your primary care doctor to follow up this hospital stay. Physician to follow Patient: Dr Bach Discharge Diet for Home: ADA Diet Patient Data-Allergies,Ht & Wt Patient Allergies: Coded Allergies: Sulfa (Sulfonamide Antibiotics) (Verified Allergy, Intermediate, RASH, CHILLS, 07/10/19) Height (Feet): 5 Height (Inches): 11.00 Weight (Pounds): 282 Weight (Ounces): 0.0 Home Health Need/Face to Face Date of Face to Face: Feb 10, 2021 Clinical Findings: Generalized weakness and fatigue, Shortness of breath I have seen Pt mjbl-uq-joor: Yes Discharged To: Home Diagnosis/Conditions: Pneumonia, respiratory failure Patient is Homebound due to: [place] fall risk due to instabilty, Shortness of breath/distress Homebound Status Due to the above stated illness, injury or surgical procedure (medical condition or diagnosis) and associated clinical findings, the patient is homebound because of his/her inability to leave home except with aid of a supportive device and/or person AND leaving the home requires a considerable and taxing effort or is medically contraindicated. Pt req the following assistanc: Aid of another person, Walker, Wheelchair Home Health Nursing Orders Home Health Services Order: Nursing Services, Bandsaw Operator-Evaluate & Jonny at, Physical Therapy-Evaluate & Treat Certify Stmt I certify that this patient is under my care and that I, a nurse practitioner or a physician; a licensed physical therapist assistant working with me, had a face to face encounter that - meets the physician face to face encounter requirements with this patient as dated. LIZANDRO LENTZ MD Feb 10, 2021 12:28
--- NOTE | 2021-02-10 13:53 | Discharge Summary ---
Diagnosis/Chief Complaint Date of Admission Feb 03, 2021 at 13:40 Date of Discharge Discharge Date: Feb 10, 2021 Primary Care Mirza Bach MD Discharge Diagnosis (1) Sepsis Status: Acute (2) Pneumonia Status: Acute (3) Acute respiratory failure with hypoxia Status: Acute Discharge Summary Discharge Physical Exam Allergies: Coded Allergies: Sulfa (Sulfonamide Antibiotics) (Verified Allergy, Intermediate, RASH, CHILLS, 07/10/19) Vitals & I&Os Vital Signs Date Time Temp Pulse Resp B/P (MAP) Pulse Ox O2 Delivery O2 Flow Rate FiO2 02/10/21 13:31 93 4.00 80 02/10/21 10:23 High Flow N/C 02/10/21 08:00 36.2 78 18 118/60 (79) 02/08/21 21:24 40 General Appearance: No Apparent Distress, Chronically ill, Obese Respiratory: Lungs Clear, No Respiratory Distress Cardiovascular: Regular Rate, Rhythm, No Murmur Neurologic/Psychiatric: Alert, Oriented x3 Hospital Course Patient was admitted to swing bed following acute inpatient stay for acute hypoxic respiratory failure secondary to pneumonia to work on oxygen weaning and strengthening. He was treated with IV antibiotics and did well these were completed in the hospital. He was able to be weaned down off of Vapotherm to 4 L/min nasal cannula. He was discharged to home with home health and is to follow-up with Dr. Bach within the next week. Home oxygen was arranged prior to discharge. Labs (last 24 hrs) Laboratory Tests 02/09/21 15:27: Glucometer 135H 02/09/21 19:25: Glucometer 126H 02/10/21 06:11: Glucometer 113H 02/10/21 10:43: Glucometer 120H Microbiology 02/03/21 Gram Stain - Final, Complete 02/03/21 Sputum Culture - Final, Complete Usual upper respiratory tonio Patient resulted labs reviewed. Pending Labs Laboratory Tests 02/10/21 10:43: Glucometer 120 Imaging: Reviewed Imaging Report Discussion & Recommendations Discharge Planning: >30 minutes discharge planning Discharge Home Medications: Active Scripts Active Reported Vitamin C (Ascorbate Calcium) 500 Mg Tablet 500 Mg PO DAILY Toviaz (Fesoterodine Fumarate) 4 Mg Tab.sr.24h 4 Mg PO DAILY Melatonin 10 Mg Tab.rapdis 10-20 Mg PO HS PRN Low Dose Aspirin EC (Aspirin) 81 Mg Tablet.dr 81 Mg PO DAILY Potassium Chloride 10 Meq Capsule.er 10 Meq PO DAILY Furosemide 40 Mg Tablet 40 Mg PO DAILY Senna-Plus Tablet (Sennosides/Docusate Sodium) 1 Each Tablet 2 Tab PO BID Nitrofurantoin (Nitrofurantoin Macrocrystal) 100 Mg Capsule 100 Mg PO 1700 Tramadol HCl 50 Mg Tablet 50 Mg PO Q6H PRN Azo Cranberry Softgel (Cranberry Extract/Vit C) 1 Each Capsule 1 Each PO BID Probiotic (L.acidoph & Paracasei,B.lactis) 1 Each Capsule 1 Each PO BID Calcium (Calcium Carbonate) 500 Mg Tablet 500 Mg PO 1700 Synthroid (Levothyroxine Sodium) 200 Mcg Tablet 200 Mcg PO DAILY TAKES 200MCG +50MCG Vitamin B12 (Cyanocobalamin (Vitamin B-12)) 2,500 Mcg Tablet 2,500 Mcg PO DAILY Lyrica (Pregabalin) 150 Mg Capsule 150 Mg PO BID Glucosamine Chondroitin Tab (Gluc Beckham/Chondro Beckham A/Vit C/Mn) 1 Each Tablet 1 Tab PO DAILY Ruben Multi For Men Tablet (Mv-Mn/FA/Lycopene/Lut/Hb#178) 1 Each Tablet 2 Tab PO DAILY Saw [place] (Saw [place] Fruit) 450 Mg Capsule 2 Cap PO DAILY Fish Oil 1,000 mg Capsule ([place] 3 Polyunsat Fatty Acids) 1,000 Mg Cap 1,000 Mg PO DAILY Zinc 50 Mg Tablet 50 Mg PO DAILY Atorvastatin Calcium 40 Mg Tablet 40 Mg PO DAILY Synthroid (Levothyroxine Sodium) 50 Mcg Tablet 50 Mcg PO DAILY TAKES 200MCG +50MCG Duloxetine HCl 60 Mg Capsule. 60 Mg PO HS LAST FILLED 08-15-2020 #90/90 DAY SUPPLY Metformin HCl ER (Metformin HCl) 1,000 Mg Tab.er.24 1,000 Mg PO BID WITH MEALS Pantoprazole Sodium 40 Mg Tablet. 40 Mg PO 1700 Instructions to patient/family Please see electronic discharge instructions given to patient. LIZANDRO LENTZ MD Feb 10, 2021 13:53
[2021-02-10 17:05] VITALS: BP 118/60
--- NOTE | 2021-02-11 14:57 | Therapy Team Discharge Summary ---
Therapy Discharge Summary Discharge Recommendations Date of Discharge Feb 10, 2021 at 17:08 Therapy D/C Recommendations: Home w/ Family Support, Occupational Therapy Home Care Occupational Therapy Pt admitted to [facility] status secondary to worsening pneumonia. He was on vapotherm 70%. He uses a w/c at baseline but is able to ambulate short distances with walker and transfer in/out of w/c without assist. He was indep with adls and his completes all IADLs. At time of Eval, pt was Min-Mod a for: bathing, upper and lower body dressing, SBA for oral care, and MAX A for toileting. While in rehab, OT focused on breathing techniques, endurance, UE strengthening, balance, and functional transfers. Pt met all of his goals at time of d/c. He discharged home with continued support of and on 4L o2. Pt discharged from facility and from OT. Decreased Activ Tolerance, Decreased UE Strength, Impaired Self-Care Skills PT Retirement Goals Retirement Goals PT Retirement Goals Time Frame: Feb 21, 2021 Roll Left to Right (QC): 5 Sit to Lying (QC): 5 Lying-Sitting on Side/Bed(QC): 5 Sit to Stand (QC): 5 Chair/Xim-wj-Rhytk Xfer(QC): 5 Car Transfer (QC): 5 Does the Patient Walk: Yes Walk 10 feet (QC): 5 Walk 10ft-Uneven Surface(QC): 5 Walk 50ft with 2 Turns (QC): 5 Walk 150 ft (QC): 9 Wheel 50 feet with 2 turns (QC: 9 1 Step (curb) (QC): 9 4 Steps (QC): 9 12 Steps (QC): 9 Picking up an Object (QC): 9 OT Retirement Goals Test Examiner Goals Eating (QC): 6 (met) Oral Hygiene (QC): 5 (met) Shower/Bathe Self (QC): 4 (met) Upper Body Dressing (QC): 5 (met) Lower Body Dressing (QC): 4 (met) On/Off Footwear (QC): 9 Toileting Hygiene (QC): 4 (met) Toilet/Commode Transfer (QC): 5 (met) 1=Demonstrate adherence to instructed precautions during ADL tasks. 2=Patient will verbalize/demonstrate understanding of assistive devices/modifications for ADL. 3=Patient will improve strength/tolerance for activity to enable patient to perform ADL's. Karmen Hicks OT Feb 11, 2021 14:57
--- NOTE | 2021-02-11 15:41 | Therapy Team Discharge Summary ---
Therapy Discharge Summary Discharge Recommendations Date of Discharge Feb 10, 2021 at 17:08 Therapy D/C Recommendations: Home w/ Family Support, Occupational Therapy Home Care Physical Therapy Patient admitted with pneumonia. Upon evaluation patient performed bed mobility and transfers with min/mod assist, and ambulated 10' with a rolling walker with CGA. Patient has been performing bed mobility and transfer training, balance and endurance training, functional strengthening, gait training, and education. Patient has made some progress but has not met any of his jail goals. Now, patient performs bed mobility with independence, supine <-> sit min assist, sit <-> stand and transfers CGA, ambulates 25' with a rolling walker with CGA. Patient was discharged from this facility and will be discharged from PT at this time. Occupational Therapy Decreased Activ Tolerance, Decreased UE Strength, Impaired Self-Care Skills PT Senior Compensation Consultant Goals [facility] Goals PT [facility] Goals Time Frame: Feb 21, 2021 Roll Left to Right (QC): 5 Sit to Lying (QC): 5 Lying-Sitting on Side/Bed(QC): 5 Sit to Stand (QC): 5 Chair/Jgr-xd-Iauok Xfer(QC): 5 Car Transfer (QC): 5 Does the Patient Walk: Yes Walk 10 feet (QC): 5 Walk 10ft-Uneven Surface(QC): 5 Walk 50ft with 2 Turns (QC): 5 Walk 150 ft (QC): 9 Wheel 50 feet with 2 turns (QC: 9 1 Step (curb) (QC): 9 4 Steps (QC): 9 12 Steps (QC): 9 Picking up an Object (QC): 9 OT Senior Compensation Consultant Goals Senior Compensation Consultant Goals Eating (QC): 6 (met) Oral Hygiene (QC): 5 (met) Shower/Bathe Self (QC): 4 (met) Upper Body Dressing (QC): 5 (met) Lower Body Dressing (QC): 4 (met) On/Off Footwear (QC): 9 Toileting Hygiene (QC): 4 (met) Toilet/Commode Transfer (QC): 5 (met) 1=Demonstrate adherence to instructed precautions during ADL tasks. 2=Patient will verbalize/demonstrate understanding of assistive devices/modifications for ADL. 3=Patient will improve strength/tolerance for activity to enable patient to perform ADL's. MICHELLE FUNES PT Feb 11, 2021 15:41
== END 2021-02-10 17:08 | disposition home health service (06) | DRG 871 ==
LOC: 4TH 13:40
PROVIDERS: ADMIT Internal Medicine; ATTEND Family Medicine
DX: A41.9 Sepsis, unspecified organism (principal); J18.9 Pneumonia, unspecified organism; J96.01 Acute respiratory failure with hypoxia; I50.32 Chronic diastolic (congestive) heart failure; J44.0 Chronic obstructive pulmonary disease with (acute) lower respiratory infection; R53.81 Other malaise; I25.10 Atherosclerotic heart disease of native coronary artery without angina pectoris; G47.33 Obstructive sleep apnea (adult) (pediatric); Z96.653 Presence of artificial knee joint, bilateral; I35.0 Nonrheumatic aortic (valve) stenosis; E78.5 Hyperlipidemia, unspecified; E03.9 Hypothyroidism, unspecified; I87.2 Venous insufficiency (chronic) (peripheral); N40.0 Benign prostatic hyperplasia without lower urinary tract symptoms; R33.9 Retention of urine, unspecified; N31.9 Neuromuscular dysfunction of bladder, unspecified; I11.0 Hypertensive heart disease with heart failure; I25.2 Old myocardial infarction; Z93.50 Unspecified cystostomy status; Z87.891 Personal history of nicotine dependence
CPT/HCPCS: 36415; 71045; 80048; 82947; 85025; 87070; 87205; 94640; 94760; 94761

== ENCOUNTER 2021-02-12 03:13 | Inpatient (IN) | payer MEDICARE, OTHER ==
[~2021-02-12] VITALS: Ht 180.3 cm; Wt 124.6 kg
[2021-02-12] MEDS ORDERED: ONDANSETRON 4 MG/2 ML (SDV) Z0FRAN ONE (03:20)
[2021-02-12] MEDS ORDERED: NS IV 1000 ML 1,000 ML ONE (03:20)
[2021-02-12] MEDS ORDERED: ONDANSETRON 4 MG/2 ML (SDV) Z0FRAN IV PRN (03:30)
[2021-02-12] MEDS ORDERED: NS IV 1000 ML 1,000 ML IV SCH ×3 (03:30→04:45)
[2021-02-12] MEDS ORDERED: CEFEPIME INJECTION 1,000 MG in WATER (STERILE) FOR INJECTION 10 ML IV ONE (03:30)
[2021-02-12 03:32] LABS: ABG BASE EXCESS 4.6 MMOL/L (-2.5-2.5); ABG OXYGEN SATURATION 78 % (94-100); ABG PCO2 31 MMHG (35-45); ABG PH 7.54 (7.37-7.43); ABG TCO2 29.5 MMOL/L (21.0-31.0)
[2021-02-12 03:33] LABS: ALLENS TEST POSITIVE; INSPIRED O2 15 ON O2; PATIENT TEMP 94.3; VENTILATOR NO
--- NOTE | 2021-02-12 03:33 | ED Respiratory ---
General Chief Complaint: COVID19 Suspect/Confirmed Stated Complaint: HYPOXIC,WEAK Source: patient Exam Limitations: no limitations History of Present Illness Date Seen by Provider: Feb 12, 2021 Time Seen by Provider: 03:14 Initial Comments Was onPatient to the ER by EMS from home with chief complaint that he was doing poorly with severe shortness of air 2 L nasal cannula oxygen and they turned up some but his sats were still remaining low. EMS reports he was on 2 L 80% when they arrived and they put him on a DuoNeb because he had some wheezing which helped with his wheezing as well as brought his oxygen saturations up. CBG was 130s. Patient was discharged 2 days ago from hospital for pneumonia and UTI. He is a DNR but he states if he has to be intubated he is okay with this. Patient was on Vapotherm and BiPAP during his last hospital stay and was improving until yesterday. He denies having any subjective fevers. He denies any pain. He says he feels a little better after the breathing treatment but is still very somnolent and difficult historian. Primary care by Dr. Bach Allergies and Home Medications Allergies Coded Allergies: Sulfa (Sulfonamide Antibiotics) (Verified Allergy, Intermediate, RASH, CHILLS, 07/10/19) Patient Home Medication List Home Medication List Reviewed: Yes Ascorbate Calcium (Vitamin C) 500 Mg Tablet, 500 MG PO DAILY, (Reported) Entered as Reported by: PABLO ESQUIVEL on 01/30/21 1200 Aspirin (Low Dose Aspirin EC) 81 Mg Tablet.dr, 81 MG PO DAILY, (Reported) Entered as Reported by: REILLY TRAN on 01/30/21 0222 Atorvastatin Calcium (Atorvastatin Calcium) 40 Mg Tablet, 40 MG PO DAILY, (Reported) Entered as Reported by: DESTINY SOARES on 02/15/18 0920 Calcium Carbonate (Calcium) 500 Mg Tablet, 500 MG PO 1700, (Reported) Entered as Reported by: DESTINY SOARES on 05/14/19 1431 Cranberry Extract/Vit C (Azo Cranberry Softgel) 1 Each Capsule, 1 EACH PO BID, (Reported) Entered as Reported by: REILLY TRAN on 01/30/21 0128 Cyanocobalamin (Vitamin B-12) (Vitamin B12) 2,500 Mcg Tablet, 2,500 MCG PO DAILY, (Reported) Entered as Reported by: DESTINY SOARES on 05/14/19 1431 Duloxetine HCl (Duloxetine HCl) 60 Mg Capsule.dr, 60 MG PO HS, (Reported) Entered as Reported by: DESTINY SOARES on 02/15/18 09 Fesoterodine Fumarate (Toviaz) 4 Mg Tab.sr.24h, 4 MG PO DAILY, (Reported) Entered as Reported by: PABLO ESQUIVEL on 01/30/21 1152 Furosemide (Furosemide) 40 Mg Tablet, 40 MG PO DAILY, (Reported) Entered as Reported by: REILLY TRAN on 01/30/21 0201 Gluc Beckham/Chondro Beckham A/Vit C/Mn (Glucosamine Chondroitin Tab) 1 Each Tablet, 1 TAB PO DAILY, (Reported) Entered as Reported by: DESTINY SOARES on 02/15/18 142 L.acidoph & Paracasei,B.lactis (Probiotic) 1 Each Capsule, 1 EACH PO BID, (Reported) Entered as Reported by: PABLO ESQUIVEL on 07/13/19 1350 Levothyroxine Sodium (Synthroid) 50 Mcg Tablet, 50 MCG PO DAILY, (Reported) Entered as Reported by: DESTINY SOARES on 02/15/18 09 Levothyroxine Sodium (Synthroid) 200 Mcg Tablet, 200 MCG PO DAILY, (Reported) Entered as Reported by: DESTINY SOARES on 05/14/19 143 Melatonin (Melatonin) 10 Mg Tab.rapdis, 10-20 MG PO HS PRN for SLEEP, (Reported) Entered as Reported by: PABLO ESQUIVEL on 01/30/21 1152 Metformin HCl (Metformin HCl ER) 1,000 Mg Tab.er.24, 1,000 MG PO BID WITH MEALS, (Reported) Entered as Reported by: DESTINY SOARES on 02/15/18 09 Mv-Mn/FA/Lycopene/Lut/Hb#178 (Ruben Multi For Men Tablet) 1 Each Tablet, 2 TAB PO DAILY, (Reported) Entered as Reported by: DESTINY SOARES on 02/15/18 142 Nitrofurantoin Macrocrystal (Nitrofurantoin) 100 Mg Capsule, 100 MG PO 1700, (Reported) Entered as Reported by: REILLY TRAN on 01/30/21 0140 Anthony 3 Polyunsat Fatty Acids (Fish Oil 1,000 mg Capsule) 1,000 Mg Cap, 1,000 MG PO DAILY, (Reported) Entered as Reported by: DESTINY SOARES on 02/15/18 1421 Pantoprazole Sodium (Pantoprazole Sodium) 40 Mg Tablet.dr, 40 MG PO 1700, (Reported) Entered as Reported by: DESTINY SOARES on 02/15/18 0920 Potassium Chloride (Potassium Chloride) 10 Meq Capsule.er, 10 MEQ PO DAILY, (Reported) Entered as Reported by: REILLY TRAN on 01/30/21 0203 Pregabalin (Lyrica) 150 Mg Capsule, 150 MG PO BID, (Reported) Entered as Reported by: LIOR GRANT on 01/16/19 1132 Saw Stevenson Fruit (Saw Stevenson) 450 Mg Capsule, 2 CAP PO DAILY, (Reported) Entered as Reported by: DESTINY SOARES on 02/15/18 1421 Sennosides/Docusate Sodium (Senna-Plus Tablet) 1 Each Tablet, 2 TAB PO BID, (Reported) Entered as Reported by: REILLY TRAN on 01/30/21 0149 Tramadol HCl (Tramadol HCl) 50 Mg Tablet, 50 MG PO Q6H PRN for PAIN-MODERATE (5- 7), (Reported) Entered as Reported by: REILLY TRAN on 01/30/21 0138 Zinc (Zinc) 50 Mg Tablet, 50 MG PO DAILY, (Reported) Entered as Reported by: DESTINY SOARES on 02/15/18 1421 Review of Systems Review of Systems Constitutional: No chills, No diaphoresis EENTM: No ear discharge, No ear pain, No blurred vision Respiratory: cough, short of breath, wheezing Cardiovascular: see HPI; No chest pain; edema; No palpitations Gastrointestinal: No abdominal pain; nausea; No vomiting Genitourinary: No discharge, No dysuria Musculoskeletal: No back pain, No joint pain Skin: No pruritus, No rash Psychiatric/Neurological: Denies Depressed All Other Systems Reviewed Negative Unless Noted: Yes Past Zalmcev-Gjmdsu-Dclxss Hx Patient Social History Tobacco Use?: No Use of E-Cig and/or Vaping dev: No Substance use?: No Immunizations Up To Date First/Initial COVID19 Vaccinat: 06/2020 Second COVID19 Vaccination Luis: 07/2020 Seasonal Allergies Seasonal Allergies: No Past Medical History Surgery/Hospitalization HX: Denies recent surgery. Two stents were placed in 1995. Surgeries: Yes (BACK, NECK, HERNIA, R TKR) Abdominal, Appendectomy, Gallbladder, Orthopedic Respiratory: Yes Sleep Apnea Currently Using CPAP: No Currently Using BIPAP: No Cardiac: Yes (CARDIAC STENTS) Chronic Edema/Swelling, Coronary Artery Disease, Heart Attack, Heart Murmur, High Cholesterol, Hypertension Neurological: Yes (R LEG NERVE DAMAGE) Neuropathy Reproductive Disorders: No Sexually Transmitted Disease: No HIV/AIDS: No Genitourinary: Yes (incontience) Benign Prostatic Hyperpl, Bladder Infection, Kidney Stones, UTI-Chronic Gastrointestinal: Yes Gastroesophageal Reflux, Chronic Constipation Musculoskeletal: Yes (osteoarthritis) Arthritis, Chronic Back Pain, Gout Endocrine: Yes Diabetes, Non-Insulin dep HEENT: Yes (READING GLASSES) Cataract Loss of Vision: Denies Hearing Impairment: Denies Cancer: No Psychosocial: No Integumentary: No Blood Disorders: No Adverse Reaction/Blood Tranf: No Family Medical History Alcoholism 19 FATHER Completed stroke 19 MOTHER Diabetes mellitus 19 MOTHER G8 SISTER FH: pancreatic cancer G8 BROTHER Physical Exam Vital Signs - First Documented 02/12/21 02/12/21 03:15 03:17 Temp 34.6 Pulse 121 Resp 24 B/P (MAP) 125/64 (84) Pulse Ox 91 O2 Delivery Vapotherm O2 Flow Rate 40.00 FiO2 100 Capillary Refill : Height: 5'11.00" Weight: 282lbs. 0.0oz. 127.023982gz; 37.03 BMI Method:Stated General Appearance: severe distress, obese Eyes: Bilateral Eye Normal Inspection, Bilateral Eye PERRL, Bilateral Eye EOMI HEENT: PERRL/EOMI, normal ENT inspection, pharynx normal Neck: full range of motion, supple, normal inspection Respiratory: lungs clear, respiratory distress (Moderate with oxygen saturations in the upper 60s on 6 L by nasal cannula on arrival.), decreased breath sounds, accessory muscle use Cardiovascular: normal peripheral pulses, regular rate, rhythm, tachycardia (121) Gastrointestinal: normal bowel sounds, non tender Neurologic/Psychiatric: normal mood/affect, oriented x 3, other (Somnolent, GCS 14) Skin: normal color, cool Focused Exam Sepsis Stage: Septic Shock Possible Source: Pulmonary Lactate Level 02/12/21 03:26: Lactic Acid Level 3.25*H Time of Focused Exam: 05:30 Respiratory: Lungs Clear, Accessory Muscle Use, Decreased Breath Sounds, Respiratory Distress (Oxygen saturations 88 to 92 percent on FiO2 100) Cardiovascular: Regular Rate, Rhythm, Normal Peripheral Pulses Capillary Refill: Less Than 3 Seconds Peripheral Pulses: 2+ Radial Pulses (R), 2+ Radial Pulses (L) Skin: normal color, warm/dry Lactic Acid Level Laboratory Tests Test 02/12/21 03:26 Lactic Acid Level 3.25 MMOL/L (0.50-2.00) *H Within 3hrs of presentation: Admin fluids, Admin ABX, Blood cultures prior to ABX's, Focus exam, Lactate level Procedures/Interventions Lumen: triple Central Line Procedure: betadine prep (Chlorhexidine), sterile drapes applied, sterile dressing applied Position: internal jugular (L) Anesthesia: Lidocaine Complications: none Post Position: sutured, good blood return, position confirmed w/ CXR Risks, benefits and alternatives were discussed with the patient and the patient consented to the procedure. The patient was positioned in the usual format and using the usual sterile garments and drapes the patient was dressed out. The skin was thoroughly cleaned with the supplied chlorhexidine prep. After the prep had dried a sterile drape was placed. The 20 cm 7 Estonian triple-lumen catheter was flushed with sterile saline. We used ultrasound guidance to pass the introducer needle into the left internal jugular without difficulty. A guidewire was placed easily without difficulty. No ectopy was seen on the monitor. The supplied 11 blade scalpel was used to make a 2 mm incision at the inferior portion of the introducer needle. The introducer needle was replaced with the dilator. The dilator was taken out and the patient had the central lumen of the triple lumen catheter threaded over the guidewire and placed at 14 cm. The guidewire was removed and the triple-lumen catheter was stitched in place using the supplied braided stitch at 2 different points. The catheter withdrew blood and flushed easily. A sterile dressing was placed over the catheter. The patient tolerated the procedure well. A chest x-ray was obtained that demonstrated no pneumothorax and a new interval central catheter over the shadow of the right internal jugular down the superior vena cava and terminating just proximal to the right atria. Progress/Results/Core Measures Suspected Sepsis SIRS Temperature: Pulse: Respiratory Rate: Laboratory Tests 02/12/21 03:26: White Blood Count 11.9H Blood Pressure / Mean: 02/12/21 03:26: Lactic Acid Level 3.25*H Laboratory Tests 02/12/21 03:26: Creatinine 0.86, INR Comment 1.0, Platelet Count 240, Total Bilirubin 1.3H Results/Orders Lab Results Laboratory Tests Test 02/12/21 03:20 02/12/21 03:26 02/12/21 03:36 02/12/21 03:39 Range/Units Blood Gas Puncture Site RIGHT RADIAL Blood Gas Patient Temperature 94.3 Arterial Blood pH 7.54 H 7.37-7.43 Arterial Blood Partial Pressure CO2 31 L 35-45 MMHG Arterial Blood Partial Pressure O2 31 *L 79-93 MMHG Arterial Blood HCO3 28 H 23-27 MMOL/L Arterial Blood Total CO2 29.5 21.0-31.0 MMOL/L Arterial Blood Oxygen Saturation 78 L 94-100 % Arterial Blood Base Excess 4.6 H -2.5-2.5 MMOL/L Kamlesh Test POSITIVE Blood Gas Ventilator Setting NO Blood Gas Inspired Oxygen 15 ON O2 White Blood Count 11.9 H 4.3-11.0 10^3/uL Red Blood Count 5.45 4.30-5.52 10^6/uL Hemoglobin 14.9 # 13.3-17.7 g/dL Hematocrit 49 40-54 % Mean Corpuscular Volume 90 80-99 fL Mean Corpuscular Hemoglobin 27 25-34 pg Mean Corpuscular Hemoglobin Concent 31 L 32-36 g/dL Red Cell Distribution Width 18.6 H 10.0-14.5 % Platelet Count 240 130-400 10^3/uL Mean Platelet Volume 11.1 9.0-12.2 fL Immature Granulocyte % (Auto) 0 % Neutrophils (%) (Auto) 93 H 42-75 % Lymphocytes (%) (Auto) 3 L 12-44 % Monocytes (%) (Auto) 2 0-12 % Eosinophils (%) (Auto) 1 0-10 % Basophils (%) (Auto) 1 0-10 % Neutrophils # (Auto) 11.0 H 1.8-7.8 10^3/uL Lymphocytes # (Auto) 0.3 L 1.0-4.0 10^3/uL Monocytes # (Auto) 0.2 0.0-1.0 10^3/uL Eosinophils # (Auto) 0.2 0.0-0.3 10^3/uL Basophils # (Auto) 0.1 0.0-0.1 10^3/uL Immature Granulocyte # (Auto) 0.1 0.0-0.1 10^3/uL Neutrophils % (Manual) 79 % Lymphocytes % (Manual) 3 % Monocytes % (Manual) 3 % Eosinophils % (Manual) 3 % Band Neutrophils 12 % Polychromasia SLIGHT Anisocytosis SLIGHT Macrocytosis SLIGHT Prothrombin Time 13.6 12.2-14.7 SEC INR Comment 1.0 0.8-1.4 Activated Partial Thromboplast Time 39 H 24-35 SEC D-Dimer 3.31 H 0.00-0.49 UG/ML Sodium Level 137 135-145 MMOL/L Potassium Level 4.0 3.6-5.0 MMOL/L Chloride Level 96 L 98-107 MMOL/L Carbon Dioxide Level 25 21-32 MMOL/L Anion Gap 16 H 5-14 MMOL/L Blood Urea Nitrogen 19 H 7-18 MG/DL Creatinine 0.86 0.60-1.30 MG/DL Estimat Glomerular Filtration Rate 85 BUN/Creatinine Ratio 22 Glucose Level 147 H 70-105 MG/DL Lactic Acid Level 3.25 *H 0.50-2.00 MMOL/L Calcium Level 10.7 H 8.5-10.1 MG/DL Corrected Calcium 10.9 H 8.5-10.1 MG/DL Total Bilirubin 1.3 H 0.1-1.0 MG/DL Aspartate Amino Transf (AST/SGOT) 40 H 5-34 U/L Alanine Aminotransferase (ALT/SGPT) 37 0-55 U/L Alkaline Phosphatase 100 40-136 U/L Troponin I < 0.028 <0.028 NG/ML C-Reactive Protein High Sensitivity 2.18 H 0.00-0.50 MG/DL B-Type Natriuretic Peptide 21.7 <100.0 PG/ML Total Protein 8.9 H 6.4-8.2 GM/DL Albumin 3.8 3.2-4.5 GM/DL Procalcitonin 1.68 H <0.10 NG/ML Influenza Type A (RT-PCR) Not Detected Not Detecte Influenza Type B (RT-PCR) Not Detected Not Detecte SARS-CoV-2 RNA (RT-PCR) Not Detected Not Detecte Urine Color YELLOW Urine Clarity CLEAR Urine pH 6.0 5-9 Urine Specific [place] 1.020 1.016-1.022 Urine Protein 2+ H NEGATIVE Urine Glucose (UA) TRACE H NEGATIVE Urine Ketones 1+ H NEGATIVE Urine Nitrite NEGATIVE NEGATIVE Urine Bilirubin 1+ H NEGATIVE Urine Urobilinogen 1.0 < = 1.0 MG/DL Urine Leukocyte Esterase 2+ H NEGATIVE Urine RBC (Auto) 3+ H NEGATIVE Urine RBC 10-25 H /HPF Urine WBC 2-5 /HPF Urine Squamous Epithelial Cells 0-2 /HPF Urine Crystals NONE /LPF Urine Calcium Oxalate Crystals FEW H /LPF Urine Bacteria LARGE H /HPF Urine Casts PRESENT /LPF Urine Hyaline Casts 0-2 H /LPF Urine Mucus NEGATIVE /LPF Urine Culture Indicated CULTURE PENDING My Orders Orders - RISA BEST Ondansetron Injection (Zofran Injectio (02/12/21 03:20) Ns Iv 1000 Ml (Sodium Chloride 0.9%) (02/12/21 03:20) Cbc With Automated Diff (02/12/21 03:25) Comprehensive Metabolic Panel (02/12/21 03:25) Blood Culture (02/12/21 03:25) Sputum Culture (02/12/21 03:25) Urinalysis (02/12/21 03:25) Urine Culture (02/12/21 03:25) Protime With Inr (02/12/21 03:25) Partial Thromboplastin Time (02/12/21 03:25) Chest 1 View, Ap/Pa Only (02/12/21 03:25) Ed Iv/Invasive Line Start (02/12/21 03:25) Ed Iv/Invasive Line Start (02/12/21 03:25) Ekg Tracing (02/12/21 03:25) Troponin I (02/12/21 03:25) Vital Signs Adult Sepsis Patie Q15M (02/12/21 03:25) Ondansetron Injection (Zofran Injectio (02/12/21 03:30) O2 (02/12/21 03:25) Remove Rings In Anticipation O (02/12/21 03:25) Lactic Acid Analyzer (02/12/21 03:25) Ns Iv 1000 Ml (Sodium Chloride 0.9%) (02/12/21 03:30) Cefepime Injection (Maxipime Injection) (02/12/21 03:30) Vancomycin Injection (Vancomycin Injecti (02/12/21 03:30) Ed Iv/Invasive Line Start (02/12/21 03:25) Ns Iv 1000 Ml (Sodium Chloride 0.9%) (02/12/21 03:30) Covid 19 Inhouse Test (02/12/21 03:25) Arterial Blood Gas (02/12/21 03:25) Influenza A And B By Pcr (02/12/21 03:25) Isolation Central Supply Req (02/12/21 03:25) BNP (02/12/21 03:28) Hs C Reactive Protein (02/12/21 03:28) Fibrin Degradation Products (02/12/21 03:28) Procalcitonin (Pct) (02/12/21 03:28) Vapotherm - Admin Rt Rfs (02/12/21 03:29) Morphine Injection (Morphine Injection (02/12/21 03:40) Manual Differential (02/12/21 03:26) Water (Sterile) For Injection (Sterile W (02/12/21 03:51) Ct Angio Chest W (02/12/21 04:34) Ed Iv/Invasive Line Start (02/12/21 04:35) Ns Iv 1000 Ml (Sodium Chloride 0.9%) (02/12/21 04:45) Medications Given in ED Current Medications Medications Dose Ordered Sig/Connor Route Start Time Stop Time Status Last Admin Dose Admin Cefepime HCl 1000 mg/Sterile Water 10 ml @ 200 mls/hr ONCE ONCE IV 02/12/21 03:30 02/12/21 03:32 DC 02/12/21 03:54 200 MLS/HR Ondansetron HCl 8 mg PRN PRN IV 02/12/21 03:30 02/12/21 03:33 DC 02/12/21 03:32 8 MG Vital Signs/I&O 02/12/21 02/12/21 02/12/21 02/12/21 03:15 03:17 03:17 03:17 Temp 34.6 Pulse 121 Resp 24 B/P (MAP) 125/64 (84) Pulse Ox 91 66 O2 Delivery Vapotherm OxyMask Nasal Cannula OxyMask O2 Flow Rate 40.00 6.00 FiO2 100 Capillary Refill : Progress Note #1: Time: 03:33 Progress Note Covid swab, septic work-up, 2 L of fluid to start. BNP, CRP procalcitonin. We will get a chest x-ray and an ABG. Progress Note #2: Time: 04:32 Progress Note Covid is negative. We have been communicating with his family. We did have a couple conversations with the patient about goals of care and he still is interested in pushing and had. This is appropriate. We did discuss with his family and the patient that he has a incredibly grim prognosis given his situation and that intubation would be very difficult to reverse if it was indicated. We also discussed with him that he is maxed out on Vapotherm and with his retching and nausea he is probably not safe to use BiPAP at this moment. He is maintaining oxygen saturations around 94% on the Vapotherm and is cognizant and alert and answering questions appropriately. He states that this time he does not want to be intubated. I think this is a reasonable approach. DNR and DNI at this time. Neck step is to obtain a CT angiogram. His blood pressure is holding out around 103/52. Oxygen saturation 91% on 100% FiO2. ECG Initial ECG Impression Date: Feb 12, 2021 Initial ECG Impression Time: 03:48 Initial ECG Rate: 113 Initial ECG Rhythm: S.Tach Initial ECG Intervals: QT (515) Initial ECG Impression: Normal, Nonspecific Changes Comment Sinus tachycardia without clinically relevant ST changes Diagnostic Imaging Diagonstic Imaging: Xray Plain Films/CT/US/NM/MRI: chest Comments Multifocal diffuse patchy pneumonia appearance. There is an interval placement of a central catheter line over the shadow of the left internal jugular termi nating just above the right atria. [facility] [employer] [place], [place] NAME: DIANDRA VO Fe [facility] REC#: [id number] PT STATUS: ADM IN : 1940 PHYSICIAN: RISA BEST MD ADMIT DATE: 02/12/21/ICU Draft Date of Exam:02/12/21 CHEST 1 VIEW, AP/PA ONLY INDICATION: Sepsis Portable chest 4:27 AM There is cardiomegaly. There are diffuse alveolar infiltrates in both lungs. There is no appreciable effusion or pneumothorax. IMPRESSION: Severe diffuse pulmonary infiltrates. Overall infiltrates appear slightly worse compared to 02/07/2021. Dictated on workstation # [id number] Dict: 02/12/2139 Trans: 02/12/21540 LAM Interpreted by: SHADY JEWELL MD Electronically signed by: Reviewed: Reviewed by Diagonstic Imaging: CT (angio) Plain Films/CT/US/NM/MRI: chest Comments Moderately consolidating bilateral subpleural alveolar infiltrates throughout both lungs. Most prominent in the lower lobes consistent with a bilateral pneumonia. Infiltrates are typical of COVID-19. [facility] [place], [place] NAME: DIANDRA VO [facility] REC#: [id number] PT STATUS: REG ER : 1940 PHYSICIAN: RISA BEST MD ADMIT DATE: 02/12/21/ER Signed Date of Exam:02/12/21 CT ANGIO CHEST W PROCEDURE: CT angiography of the chest with contrast. TECHNIQUE: Multiple contiguous axial images were obtained through the chest after uneventful bolus administration of intravenous contrast. 3D reconstructed CTA MIP acquisitions were also performed. Auto Exposure Controls were utilized during the CT exam to meet ALARA standards for radiation dose reduction. INDICATION: Shortness of breath There is peripheral interstitial fibrosis. There is peripheral alveolar consolidation in the lower portions of both lungs worse on the left than on the right. There are no effusions. There is no pneumothorax. There are no pathologically enlarged hilar or mediastinal lymph nodes. There is calcific atherosclerosis of aorta but no aneurysm or dissection. There are no pulmonary emboli. IMPRESSION: Peripheral pulmonary infiltrates consistent with pneumonia. There is no evidence for pulmonary embolism or right ventricular strain. Dictated by: Dictated on workstation # [id number] Dict: 02/12/21521 Trans: 02/12/21524 TCB Interpreted by: SHADY JEWELL MD Electronically signed by: SHADY JEWELL MD 02/12/21524 Reviewed: Reviewed Xavier Trevino Study, Reviewed by Me Critical Care Note Critical Care Start Time: 03:15 Stop Time: 00:30 Total Time (minutes) 75 mins Progress Patient presents in severe respiratory distress. We did discuss goals of care and he is okay with being a DNR and initially was okay being intubated but as we described to him his poor prognosis and maxed him out on Vapotherm just to get his oxygen saturations up to 90% the patient feels that he would not want to be intubated. We did offer to intubate. We did also offer to do a central line which she agreed to do. He is okay with moving forward with treatment at this time. Morphine 2 mg for comfort. Differential is between CHF exacerbation, pulmonary embolism, COVID-19 or other atypical pneumonia, worsening pneumonia from previous visit. He is septic with a soft blood pressure around 110-115 systolic. We will start with 1 L fluid bolus and reevaluate. I attest to greater than 30 minutes of critical care time outside of procedures as documented. We also coordinated care between providers and goals of care between patient and family. Departure Communication (Admissions) Time/Spoke to Admitting Phy: 05:15 Discussed the case with Dr. Bach and he agrees to admit the patient to the ICU with the eICU consultation. Broad-spectrum antibiotics. DNI/DNR. Time/Spoke to Consulting Phy: 05:21 Discussed the case with eICU and they recommend escalating to meropenem. Impression Primary Impression: Pneumonia Qualified Codes: J18.9 - Pneumonia, unspecified organism Additional Impressions: Septic shock Acute respiratory failure with hypoxemia Disposition: ADMITTED INPATIENT Condition: Critical Admissions Decision to Admit Reason: Admit from ER (General) Decision to Admit/Date: Feb 12, 2021 Time/Decision to Admit Time: 04:44 Departure-Patient Inst. Referrals: BRIDGETT BACH MD (PCP/Family) Primary Care Physician RISA BEST Feb 12, 2021 03:33
[2021-02-12 03:35] LABS: ABG PO2 31 MMHG (79-93)
[2021-02-12 03:39] LABS: BASOPHILS # (AUTO) 0.1 10^3/uL (0.0-0.1); BASOPHILS % (AUTO) 1 % (0-10); EOSINOPHILS # (AUTO) 0.2 10^3/uL (0.0-0.3); EOSINOPHILS % (AUTO) 1 % (0-10); HEMATOCRIT 49 % (40-54); HEMOGLOBIN 14.9 g/dL (13.3-17.7); LYMPHOCYTES # (AUTO) 0.3 10^3/uL (1.0-4.0); LYMPHOCYTES % (AUTO) 3 % (12-44); MEAN CORPUSCULAR HEMOGLOBIN 27 pg (25-34); MEAN CORPUSCULAR HGB CONC 31 g/dL (32-36); MEAN CORPUSCULAR VOLUME 90 fL (80-99); MEAN PLATELET VOLUME 11.1 fL (9.0-12.2); MONOCYTES # (AUTO) 0.2 10^3/uL (0.0-1.0); MONOCYTES % (AUTO) 2 % (0-12); NEUTROPHILS % (AUTO) 93 % (42-75); PLATELET COUNT 240 10^3/uL (130-400); WHITE BLOOD COUNT 11.9 10^3/uL (4.3-11.0)
[2021-02-12] MEDS ORDERED: morphine INJ 10 MG/ML 1ML (SYR OR VIAL) IVP STA (03:40)
[2021-02-12] MEDS ORDERED: WATER (STERILE) FOR INJECTION 10 ML ONE (03:51)
[2021-02-12] MEDS: VANCOMYCIN INJECTION 1,000 MG in NS (IVPB) 250 ML IV SCH ×2 (03:52→05:00)
[2021-02-12 03:53] LABS: BILIRUBIN,URINE 1+ (NEGATIVE); CLARITY,URINE CLEAR; COLOR,URINE YELLOW; GLUCOSE, URINE (UA) TRACE (NEGATIVE); KETONES,URINE 1+ (NEGATIVE); LEUKOCYTE ESTERASE ,URINE 2+ (NEGATIVE); NITRITE,URINE NEGATIVE (NEGATIVE); PROTEIN,URINE 2+ (NEGATIVE)
[2021-02-12 03:58] LABS: ALBUMIN 3.8 GM/DL (3.2-4.5); CHLORIDE 96 MMOL/L (98-107); SODIUM 137 MMOL/L (135-145)
[2021-02-12 03:59] LABS: CALCIUM 10.7 MG/DL (8.5-10.1)
[2021-02-12 04:00] LABS: GLUCOSE 147 MG/DL (70-105); TOTAL PROTEIN 8.9 GM/DL (6.4-8.2)
[2021-02-12 04:01] LABS: CARBON DIOXIDE 25 MMOL/L (21-32)
[2021-02-12 04:02] LABS: BILIRUBIN,TOTAL 1.3 MG/DL (0.1-1.0)
[2021-02-12 04:04] LABS: ALKALINE PHOSPHATASE 100 U/L (40-136); CREATININE SERUM 0.86 MG/DL (0.60-1.30); GFR ESTIMATED 85
[2021-02-12 04:05] LABS: BUN/CREATININE RATIO 22
[2021-02-12 04:07] LABS: ALANINE AMINOTRANSFERASE 37 U/L (0-55)
[2021-02-12 04:09] LABS: FIBRIN DEGRADATION PRODUCTS 3.31 UG/ML (0.00-0.49); PROTHROMBIN TIME PATIENT 13.6 SEC (12.2-14.7)
[2021-02-12 04:20] LABS: BACTERIA,URINE LARGE /HPF; CALCIUM OXALATE CRYSTALS,UR FEW /LPF; SQUAMOUS EPITHELIAL CELL,UR 0-2 /HPF
[2021-02-12 04:21] LABS: HYALINE CASTS, URINE 0-2 /LPF
[2021-02-12] MEDS ORDERED: NS 100 ML (IVPB) BAG IV ONE (05:00)
[2021-02-12] MEDS ORDERED: IOHEXOL 350 MG/ML 100 ML (OMNIPAQUE 350) VIAL IV ONE (05:00)
[2021-02-12] MEDS ORDERED: HOLD METFORMIN - RECEIVED CONTRAST 20 ML VIAL IV SCH (05:00)
[2021-02-12 05:01] LABS: BAND NEUTROPHILS 12 %; EOSINOPHILS % (MANUAL) 3 %; LYMPHOCYTES % (MANUAL) 3 %; MONOCYTES % (MANUAL) 3 %; NEUTROPHILS % (MANUAL) 79 %
[2021-02-12 05:02] LABS: ANISOCYTOSIS SLIGHT; POLYCHROMASIA SLIGHT
--- NOTE | 2021-02-12 05:26 | Diagnostic Imaging Report ---
PROCEDURE: CT angiography of the chest with contrast. TECHNIQUE: Multiple contiguous axial images were obtained through the chest after uneventful bolus administration of intravenous contrast. 3D reconstructed CTA MIP acquisitions were also performed. Auto Exposure Controls were utilized during the CT exam to meet ALARA standards for radiation dose reduction. INDICATION: Shortness of breath There is peripheral interstitial fibrosis. There is peripheral alveolar consolidation in the lower portions of both lungs worse on the left than on the right. There are no effusions. There is no pneumothorax. There are no pathologically enlarged hilar or mediastinal lymph nodes. There is calcific atherosclerosis of aorta but no aneurysm or dissection. There are no pulmonary emboli. IMPRESSION: Peripheral pulmonary infiltrates consistent with pneumonia. There is no evidence for pulmonary embolism or right ventricular strain. Dictated by: Dictated on workstation # [id number]
--- NOTE | 2021-02-12 05:41 | Diagnostic Imaging Report ---
INDICATION: Sepsis Portable chest 4:27 AM There is cardiomegaly. There are diffuse alveolar infiltrates in both lungs. There is no appreciable effusion or pneumothorax. IMPRESSION: Severe diffuse pulmonary infiltrates. Overall infiltrates appear slightly worse compared to 02/07/2021. Dictated by: Dictated on workstation # [id number]
[2021-02-12] MEDS ORDERED: ACETAMINOPHEN 325 MG TABLET PO PRN (06:00)
[2021-02-12] MEDS ORDERED: ACETAMINOPHEN 650 MG SUPP (TYLENOL) PR PRN (06:00)
[2021-02-12] MEDS ORDERED: ONDANSETRON 4 MG/2 ML (SDV) Z0FRAN IVP PRN (06:00)
[2021-02-12] MEDS ORDERED: morphine INJ 4 MG/ML 1 ML (VIAL/SYRINGE) IVP PRN (06:00)
--- NOTE | 2021-02-12 06:28 | Tele-ICU Consult ---
History of Present Illness History of Present Illness Date Seen by Provider: Feb 12, 2021 Time Seen by Provider: 06:24 Date of Admission 80 [facility], COVID negative multiple times, presented with cc of feeling weak; pt was found to be hypotensive: fluid challenge/ sepsis protocol with broad spectrum abx/ tlc placed. Pt was started on BIPAP ct chest negative for pe/ still has infiltrates. Allergies and Home Medications Allergies Coded Allergies: Sulfa (Sulfonamide Antibiotics) (Verified Allergy, Intermediate, RASH, CHILLS, 07/10/19) Home Medications Ascorbate Calcium 500 Mg Tablet, 500 MG PO DAILY, (Reported) Aspirin 81 Mg Tablet.dr, 81 MG PO DAILY, (Reported) Atorvastatin Calcium 40 Mg Tablet, 40 MG PO DAILY, (Reported) Calcium Carbonate 500 Mg Tablet, 500 MG PO 1700, (Reported) Cranberry Extract/Vit C 1 Each Capsule, 1 EACH PO BID, (Reported) Cyanocobalamin (Vitamin B-12) 2,500 Mcg Tablet, 2,500 MCG PO DAILY, (Reported) Duloxetine HCl 60 Mg Capsule.dr, 60 MG PO HS, (Reported) LAST FILLED 08-15-2020 #90/90 DAY SUPPLY Fesoterodine Fumarate 4 Mg Tab.sr.24h, 4 MG PO DAILY, (Reported) Furosemide 40 Mg Tablet, 40 MG PO DAILY, (Reported) Gluc Beckham/Chondro Beckham A/Vit C/Mn 1 Each Tablet, 1 TAB PO DAILY, (Reported) L.acidoph & Paracasei,B.lactis 1 Each Capsule, 1 EACH PO BID, (Reported) Levothyroxine Sodium 50 Mcg Tablet, 50 MCG PO DAILY, (Reported) TAKES 200MCG +50MCG Levothyroxine Sodium 200 Mcg Tablet, 200 MCG PO DAILY, (Reported) TAKES 200MCG +50MCG Melatonin 10 Mg Tab.rapdis, 10-20 MG PO HS PRN for SLEEP, (Reported) Metformin HCl 1,000 Mg Tab.er.24, 1,000 MG PO BID WITH MEALS, (Reported) Mv-Mn/FA/Lycopene/Lut/Hb#178 1 Each Tablet, 2 TAB PO DAILY, (Reported) Nitrofurantoin Macrocrystal 100 Mg Capsule, 100 MG PO 1700, (Reported) [place] 3 Polyunsat Fatty Acids 1,000 Mg Cap, 1,000 MG PO DAILY, (Reported) Pantoprazole Sodium 40 Mg Tablet.dr, 40 MG PO 1700, (Reported) Potassium Chloride 10 Meq Capsule.er, 10 MEQ PO DAILY, (Reported) Pregabalin 150 Mg Capsule, 150 MG PO BID, (Reported) [place] Fruit 450 Mg Capsule, 2 CAP PO DAILY, (Reported) Sennosides/Docusate Sodium 1 Each Tablet, 2 TAB PO BID, (Reported) Tramadol HCl 50 Mg Tablet, 50 MG PO Q6H PRN for PAIN-MODERATE (5-7), (Reported) Zinc 50 Mg Tablet, 50 MG PO DAILY, (Reported) Past Medical/Social/Family Hx Patient Social History Tobacco Use?: No Smoking Status: Former Smoker Smokeless Tobacco Frequency: Never a User Use of E-Cig and/or Vaping dev: No E-Cig and/or Vaping Freq: Never a User Substance use?: No Alcohol Use?: No Pt stated abuse/neglect: No Immunizations Up To Date Influenza Vaccine Up-to-Date: Yes; Up-to-Date First/Initial COVID19 Vaccinat: 06/2020 Second COVID19 Vaccination Luis: 07/2020 Date of Pneumonia Vaccine: Mar 31, 2019 Current Status Advance Directives: No Communicates: Verbally Primary Language: American Preferred Spoken Language: American Implanted or Applied Medical D: None Past Medical History CAD, hypothyroidism, UTI's/BPH, has had supra-pubic catheter placed aortic stenosis, not clear how severe, I can not find an echo report, Review of Systems Constitutional: see HPI Sepsis Event Evaluation Height, Weight, BMI Height: 5'11.00" Weight: 282lbs. 0.0oz. 127.646427zc; 35.62 BMI Method:Stated Exam Exam Patient acknowledged, consented, and participated in this virtual visit which was conducted using real time audio/video Vital Signs Date Time Temp Pulse Resp B/P (MAP) Pulse Ox O2 Delivery O2 Flow Rate FiO2 02/12/21 06:17 36.9 100 20 104/57 96 NIV Bilevel 95.00 02/12/21 06:05 94 NIV Bilevel 100.00 02/12/21 05:35 34.6 104 20 104/55 92 Vapotherm 40.00 100.00 02/12/21 03:17 OxyMask 02/12/21 03:17 34.6 121 24 125/64 (84) 66 Nasal Cannula 6.00 02/12/21 03:17 OxyMask 02/12/21 03:15 91 Vapotherm 40.00 100 I & O 02/12/21 07:00 Intake Total 1260 ml Balance 1260 ml Height & Weight Height: 5'11.00" Weight: 282lbs. 0.0oz. 127.386732ji; 35.62 BMI Method:Stated General Appearance: No Apparent Distress Respiratory: Lungs Clear, Accessory Muscle Use, Decreased Breath Sounds, Respiratory Distress (Oxygen saturations 88 to 92 percent on FiO2 100) Cardiovascular: Regular Rate, Rhythm, Normal Peripheral Pulses Capillary Refill: Less Than 3 Seconds Peripheral Pulses: 2+ Radial Pulses (R), 2+ Radial Pulses (L) Gastrointestinal: normal bowel sounds, non tender Results Lab Laboratory Tests 02/12/21 03:26 Assessment/Plan Assessment/Plan A/P 1. Septic shock possible source: pn/ uti -abx escalated to meropneme -continue trending the lactic acid/ iv fluids 2. Resp failure on bipap 3. dvt prophylaxis advice ltach placement pt was visualized JOHNNIE VASQUES MD Feb 12, 2021 06:28
[2021-02-12 06:51] VITALS: BP 89/49
[2021-02-12] MEDS: MEROPENEM 500 MG/SWFI 10 ML IV PUSH IV SCH ×6 (06:57→18:21)
[2021-02-12] MEDS: LACTATED RINGERS 1,000 ML IV SCH ×5 (06:58→22:29)
[2021-02-12] MEDS: LEVOTHYROXINE 125 MCG (LEVOTHROID) TABLET PO SCH (06:58)
[2021-02-12] MEDS: D5 LR IV SOLUTION 1,000 ML IV SCH ×3 (06:58→20:40)
[2021-02-12] MEDS: inSUlin ASPART (NovoLOG) 1 UNIT/0.01 ML (CHARGE PER UNIT) SC SCH ×4 (06:59→20:30)
[2021-02-12] MEDS ORDERED: MEROPENEM 500 MG/SWFI 10 ML IV PUSH IV NR ×2 (07:00)
--- NOTE | 2021-02-12 08:16 | History & Physical-Hospitalist ---
History of Present Illness HPI/Chief Complaint Pt is an 80-year-old male well-known to me from recent admission who presented to the emergency department due to shortness of breath. He was discharged 2 days ago and did well for the first day post discharge but overnight got more short of breath. He was discharged on 5 L of oxygen but was wearing 2 L when EMS arrived. Sats were in the 80s on their arrival. He was given a DuoNeb treatment and this helped his saturations. They attempted to place him on Vapotherm but had difficulty maintaining oxygen saturations so he was placed on BiPAP. CT of his chest showed no PE but persistent pulmonary infiltrates. He was swabbed for Covid and is negative. He has also been vaccinated. He was swabbed multiple times during his last admission and was negative for Covid as well. He was admitted to the ICU on BiPAP. He reports that he is feeling much better today. He continues to affirm wanting to be a DNR/DNI. We discussed the possibility of potential LTAC transfer when more stable. He was very receptive to this idea Exam Limitations: clinical condition (on BiPAP) Date Seen 02/12/21 Time Seen by a Provider: 07:45 Attending Physician Mirza Bach MD PCP Mirza Bach MD Referring Physician Date of Admission Feb 12, 2021 at 04:55 Home Medications & Allergies Home Medications Reviewed patient Home Medication Reconciliation performed by pharmacy medication reconciliations graphic arts technician and/or nursing. Patients Allergies have been reviewed. Allergies Allergies Coded Allergies Sulfa (Sulfonamide Antibiotics) (Verified Allergy, Intermediate, RASH, CHILLS, 07/10/19) Past Dorcbzi-Pgxfkc-Wsogxp Hx Patient Social History Employed/Student: retired Tobacco Use?: No Smoking Status: Former Smoker Smokeless Tobacco Frequency: Never a User Use of E-Cig and/or Vaping dev: No Use of E-Cig and/or Vaping Carl: Never a User Substance use?: No Alcohol Use?: No Pt feels they are or have been: No Immunizations Up To Date Date of Influenza Vaccine: Mar 31, 2019 First/Initial COVID19 Vaccinat: 06/2020 Second COVID19 Vaccination Luis: 07/2020 Date of Pneumonia Vaccine: Mar 31, 2019 Seasonal Allergies Seasonal Allergies: No Current Status Advance Directives: No Communicates: Verbally Primary Language: Serbian Preferred Spoken Language: Serbian Implanted or Applied Medical D: None Past Medical History Surgeries: Abdominal, Appendectomy, Gallbladder, Orthopedic Sleep Apnea Currently Using CPAP: No Currently Using BIPAP: No Chronic Edema/Swelling, Coronary Artery Disease, Heart Attack, Heart Murmur, High Cholesterol, Hypertension Neuropathy Sexually Transmitted Disease: No HIV/AIDS: No Benign Prostatic Hyperpl, Bladder Infection, Kidney Stones, UTI-Chronic Gastroesophageal Reflux, Chronic Constipation Arthritis, Chronic Back Pain, Gout Diabetes, Non-Insulin dep Cataract Loss of Vision: Denies Hearing Impairment: Denies Blood Disorders: No Adverse Reaction/Blood Tranf: No CAD, hypothyroidism, UTI's/BPH, has had supra-pubic catheter placed aortic stenosis, not clear how severe, I can not find an echo report, Family Medical History Reviewed Nursing Family Hx Alcoholism 19 FATHER Completed stroke 19 MOTHER Diabetes mellitus 19 MOTHER G8 SISTER FH: pancreatic cancer G8 BROTHER Review of Systems ROS-Unable to Obtain: limited somewhat by BiPAP use Constitutional: No chills, No fever EENTM: no symptoms reported Respiratory: short of breath Cardiovascular: No chest pain Gastrointestinal: no symptoms reported Genitourinary: no symptoms reported Musculoskeletal: no symptoms reported Skin: no symptoms reported Psychiatric/Neurological: No Symptoms Reported Physical Exam Physical Exam Vital Signs Vital Signs - First Documented 02/12/21 02/12/21 03:15 03:17 Temp 34.6 Pulse 121 Resp 24 B/P (MAP) 125/64 (84) Pulse Ox 91 O2 Delivery Vapotherm O2 Flow Rate 40.00 FiO2 100 Capillary Refill : Less Than 3 Seconds Height, Weight, BMI Height: 5'11.00" Weight: 282lbs. 0.0oz. 127.473623ys; 35.62 BMI Method:Stated General Appearance: Chronically ill, Obese, Other (on BiPAP) HEENT: PERRL/EOMI; No Scleral Icterus (L), No Scleral Icterus (R); Other (exam obscured by BiPAP mask) Respiratory: No Respiratory Distress, Crackles, Decreased Breath Sounds; No Wheezing Cardiovascular: Regular Rate, Rhythm Gastrointestinal: Normal Bowel Sounds, Non Tender, Soft Genital/Rectal: Other (brock in place) Extremity: Normal Capillary Refill, No Calf Tenderness, No Pedal Edema Neurologic/Psychiatric: Alert, Oriented x3 Skin: Normal Color, Warm/Dry Results Results/Procedures Labs Laboratory Tests 02/12/21 03:26 Patient resulted labs reviewed. Imaging: Reviewed Imaging Report [facility] [place] [place] NAME: DIANDRA VO [facility] REC#: [id number] PT STATUS: ADM IN : 1940 PHYSICIAN: RISA BEST MD ADMIT DATE: 02/12/21/ICU Signed Date of Exam:02/12/21 CHEST 1 VIEW, AP/PA ONLY INDICATION: Sepsis Portable chest 4:27 AM There is cardiomegaly. There are diffuse alveolar infiltrates in both lungs. There is no appreciable effusion or pneumothorax. IMPRESSION: Severe diffuse pulmonary infiltrates. Overall infiltrates appear slightly worse compared to 02/07/2021. Dictated by: Dictated on workstation # [id number] Dict: 02/12/21 0539 Trans: 02/12/21805 LAM [id number] Interpreted by: SHADY JEWELL MD Electronically signed by: SHADY JEWELL MD 02/12/21805 [facility], [facility] [place], [place] NAME: DIANDRA VO Fe [facility] REC#: [id number] PT STATUS: REG ER : 1940 PHYSICIAN: RISA BEST MD ADMIT DATE: 02/12/21/ER Signed Date of Exam:02/12/21 CT ANGIO CHEST W PROCEDURE: CT angiography of the chest with contrast. TECHNIQUE: Multiple contiguous axial images were obtained through the chest after uneventful bolus administration of intravenous contrast. 3D reconstructed CTA MIP acquisitions were also performed. Auto Exposure Controls were utilized during the CT exam to meet ALARA standards for radiation dose reduction. INDICATION: Shortness of breath There is peripheral interstitial fibrosis. There is peripheral alveolar consolidation in the lower portions of both lungs worse on the left than on the right. There are no effusions. There is no pneumothorax. There are no pathologically enlarged hilar or mediastinal lymph nodes. There is calcific atherosclerosis of aorta but no aneurysm or dissection. There are no pulmonary emboli. IMPRESSION: Peripheral pulmonary infiltrates consistent with pneumonia. There is no evidence for pulmonary embolism or right ventricular strain. Dictated by: Dictated on workstation # [id number] Dict: 02/12/21 0522 Trans: 02/12/21 0525 [facility] [id number] Interpreted by: SHADY JEWELL MD Electronically signed by: SHADY JEWELL MD 02/12/2125 Assessment/Plan Admission Diagnosis Acute hypoxic respiratory failure Admission Status: Inpatient Order (span 2 midnights) Reason for Inpatient Admission: see below Assessment and Plan Acute hypoxic respiratory failure Severe sepsis due to PNA vs questionable UTI Continue on broad spectrum IV abx, Vanc and Merrem Await cultures [facility], appreciate recs Lactic acidosis trending down Cautious fluids resuscitation given DNI status and resp failure Consider LTCAH transfer when more stable Overall poor manager terminal prognosis Urine with bacteria on UA but likely colonized due to mcfp catheter use, nitrite negative- regardless should be covered with Merrem CAD HTN Aortic stenosis HLD Continue home meds as able Hold antihypertensives for soft BP Hypothyroidism BPH s/p SPT Continue home meds Was seen by Dr Khalil this week during last admission, brock changed on 02/10 DVT prophylaxis: Lovenox Diagnosis/Problems Diagnosis/Problems (1) Urinary retention due to benign prostatic hyperplasia Status: Acute (2) T2DM (type 2 diabetes mellitus) Status: Chronic (3) CAD (coronary artery disease) Status: Chronic (4) Hypothyroidism Status: Chronic (5) Essential hypertension Status: Chronic (6) Type II diabetes mellitus Status: Chronic (7) Sepsis Status: Acute (8) Severe aortic stenosis Status: Chronic (9) Acute respiratory failure with hypoxemia Status: Acute (10) Brock catheter in place Status: Acute LIZANDRO LENTZ MD Feb 12, 2021 08:16
[2021-02-12] MEDS: ENOXAPARIN 40 MG/0.4 ML (LOVENOX) SYR SC SCH (09:52)
[2021-02-12] MEDS: ASPIRIN E.C. 81 MG (ECOTRIN) TAB PO SCH (09:52)
--- NOTE | 2021-02-12 13:31 | Progress Note ---
BHASKAR SCOTT MED STUDENT 02/12/21 1331: Subjective Date Seen by a Provider: Feb 12, 2021 Time Seen by a Provider: 08:05 Subjective/Events-last exam Patient reports breathing better. He denies fevers, chills, chest pain, headache, nausea, vomiting, and cough. Denies pain. Currently tolerating BIPAP at 15/8 and 70%. Review of Systems General: No Chills, No Night Sweats HEENT: No Head Aches, No Visual Changes Pulmonary: Dyspnea; No Cough, No Pleuritic Chest Pain Cardiovascular: No: Chest Pain, Palpitations, Edema Gastrointestinal: No: Nausea, Vomiting, Abdominal Pain Genitourinary: No Dysuria, No Frequency; Other (suprapubic catheter) Musculoskeletal: No: neck pain, back pain Neurological: No: Weakness, Numbness Focused Exam Lactate Level 02/12/21 03:26: Lactic Acid Level 3.25*H 02/12/21 05:44: Lactic Acid Level 2.15*H 02/12/21 08:15: Lactic Acid Level 1.27 Time of Focused Exam: 05:30 Objective Exam Last Set of Vital Signs Vital Signs Date Time Temp Pulse Resp B/P (MAP) Pulse Ox O2 Delivery O2 Flow Rate FiO2 02/12/21 12:00 88 14 104/56 96 Vapotherm 30.00 100.00 02/12/21 12:00 37.2 02/12/21 11:15 100 Capillary Refill : Less Than 3 Seconds General: Alert, Oriented X3, Cooperative, Mild Distress HEENT: Atraumatic, PERRLA, EOMI, Mucous Memb Moist/[place] Neck: Supple, No LAD Lungs: Clear to Auscultation Heart: Regular Rate Abdomen: Normal Bowel Sounds, Soft, No Tenderness Extremities: No Clubbing, No Cyanosis, Normal Pulses Skin: No Rashes, No Significant Lesion Neuro: Normal Speech, Normal Tone, Sensation Intact, Cranial Nerves 3-12 NL Psych/Mental Status: Mental Status NL, Mood NL Results Lab Laboratory Tests 02/12/21 03:20: Blood Gas Puncture Site RIGHT RADIAL, Blood Gas Patient Temperature 94.3, Arterial Blood pH 7.54H, Arterial Blood Partial Pressure CO2 31L, Arterial Blood Partial Pressure O2 31*L, Arterial Blood HCO3 28H, Arterial Blood Total CO2 29.5, Arterial Blood Oxygen Saturation 78L, Arterial Blood Base Excess 4.6H, Kamlesh Test POSITIVE, Blood Gas Ventilator Setting NO, Blood Gas Inspired Oxygen 15 ON O2 02/12/21 03:26: White Blood Count 11.9H, Red Blood Count 5.45, Hemoglobin 14.9#, Hematocrit 49, Mean Corpuscular Volume 90, Mean Corpuscular Hemoglobin 27, Mean Corpuscular Hemoglobin Concent 31L, Red Cell Distribution Width 18.6H, Platelet Count 240, Mean Platelet Volume 11.1, Immature Granulocyte % (Auto) 0, Neutrophils (%) (Auto) 93H, Lymphocytes (%) (Auto) 3L, Monocytes (%) (Auto) 2, Eosinophils (%) (Auto) 1, Basophils (%) (Auto) 1, Neutrophils # (Auto) 11.0H, Lymphocytes # (Auto) 0.3L, Monocytes # (Auto) 0.2, Eosinophils # (Auto) 0.2, Basophils # (Auto) 0.1, Immature Granulocyte # (Auto) 0.1, Neutrophils % (Manual) 79, Lymphocytes % (Manual) 3, Monocytes % (Manual) 3, Eosinophils % (Manual) 3, Band Neutrophils 12, Polychromasia SLIGHT, Anisocytosis SLIGHT, Macrocytosis SLIGHT, Prothrombin Time 13.6, INR Comment 1.0, Activated Partial Thromboplast Time 39H, D-Dimer 3.31H, Sodium Level 137, Potassium Level 4.0, Chloride Level 96L, Carbon Dioxide Level 25, Anion Gap 16H, Blood Urea Nitrogen 19H, Creatinine 0.86, Estimat Glomerular Filtration Rate 85, BUN/Creatinine Ratio 22, Glucose Level 147H, Lactic Acid Level 3.25*H, Calcium Level 10.7H, Corrected Calcium 10.9H, Total Bilirubin 1.3H, Aspartate Amino Transf (AST/SGOT) 40H, Alanine Aminotransf erase (ALT/SGPT) 37, Alkaline Phosphatase 100, Troponin I < 0.028, C-Reactive Protein High Sensitivity 2.18H, B-Type Natriuretic Peptide 21.7, Total Protein 8.9H, Albumin 3.8, Procalcitonin 1.68H 02/12/21 03:36: Influenza Type A (RT-PCR) Not Detected, Influenza Type B (RT-PCR) Not Detected, SARS-CoV-2 RNA (RT-PCR) Not Detected 02/12/21 03:39: Urine Color YELLOW, Urine Clarity CLEAR, Urine pH 6.0, Urine Specific [place] 1.020, Urine Protein 2+H, Urine Glucose (UA) TRACEH, Urine Ketones 1+H, Urine Nitrite NEGATIVE, Urine Bilirubin 1+H, Urine Urobilinogen 1.0, Urine Leukocyte Esterase 2+H, Urine RBC (Auto) 3+H, Urine RBC 10-25H, Urine WBC 2-5, Urine Squamous Epithelial Cells 0-2, Urine Crystals NONE, Urine Calcium Oxalate Crystals FEWH, Urine Bacteria LARGEH, Urine Casts PRESENT, Urine Hyaline Casts 0-2H, Urine Mucus NEGATIVE, Urine Culture Indicated CULTURE PENDING 02/12/21 05:44: Lactic Acid Level 2.15*H 02/12/21 08:15: Lactic Acid Level 1.27 02/12/21 11:45: Glucometer 140H Assessment/Plan Assessment/Plan Assess & Plan/Chief Complaint Acute hypoxic respiratory failure requiring NIPPV -currently tolerating BIPAP at 15/8 and 70% -sat's mid 90's on BIPAP -continue to wean FIO2, maybe able to transition to vapotherm later today -ct angio chest negative for PE -cxray showed severe diffuse pulm infiltrates -covid and flu negative Severe sepsis due to PNA vs UTI -vancomycin and meropenem -fischer culture today -procal 1.68 -crp 2.18 Metabolic lactic acidosis -patient takes metformin at home -lactic acid down to 1.27 from 3.25 -improved NIDDM -accuchecks achs, SSI HTN -hold home antihypertensives due to soft BP's CAD Hypothyroidism -synthroid BPH s/p suprapubic catheter placement approx 1 year ago, pt. reports recently having it changed at Dr. Khalil's office H/O Chronic UTI DVT ppx -lovenox AYLIN BERUMEN DO 02/13/21 0544: Supervisory-Addendum Brief Verification & Attestation Participated in pt care: history, MDM, physical Personally performed: exam, history, MDM, supervision of care Care discussed with: Medical Student Procedures: n/a Results interpretation: Verified all documentation Verification and Attestation of Medical Student E/M Service A medical student performed and documented this service in my presence. I reviewed and verified all information documented by the medical student and made modifications to such information, when appropriate. I personally performed the physical exam and medical decision making. Aylin Berumen, Feb 13, 2021,05:44 BHASKAR SCOTT MED STUDENT Feb 12, 2021 13:31 AYLIN BERUMEN DO Feb 13, 2021 05:44
[2021-02-12] MEDS: VANCOMYCIN 1500 MG/NS 500 ML IVPB IV SCH ×2 (15:17)
[2021-02-12] MEDS: PREGABALIN 150 MG (LYRICA) CAPSULE PO SCH (20:29)
[2021-02-12] MEDS: SENNA W/DOCUSATE (SENOKOT S) TABLET PO SCH (20:30)
[2021-02-12] MEDS: RT-ALBUTEROL/IPRATROPIUM 3 ML (DUONEB) VIAL INH SCH (22:34)
[2021-02-13] MEDS: MEROPENEM 500 MG/SWFI 10 ML IV PUSH IV SCH ×8 (01:28→17:38)
[2021-02-13] MEDS: RT-ALBUTEROL/IPRATROPIUM 3 ML (DUONEB) VIAL INH SCH ×4 (02:32→23:56)
[2021-02-13] MEDS: VANCOMYCIN 1500 MG/NS 500 ML IVPB IV SCH ×4 (02:58→16:13)
[2021-02-13] MEDS: LEVOTHYROXINE 125 MCG (LEVOTHROID) TABLET PO SCH (05:46)
[2021-02-13 06:02] LABS: BASOPHILS # (AUTO) 0.1 10^3/uL (0.0-0.1); BASOPHILS % (AUTO) 1 % (0-10); EOSINOPHILS # (AUTO) 0.5 10^3/uL (0.0-0.3); EOSINOPHILS % (AUTO) 5 % (0-10); HEMATOCRIT 34 % (40-54); HEMOGLOBIN 10.3 g/dL (13.3-17.7); LYMPHOCYTES # (AUTO) 0.6 10^3/uL (1.0-4.0); LYMPHOCYTES % (AUTO) 6 % (12-44); MEAN CORPUSCULAR HEMOGLOBIN 28 pg (25-34); MEAN CORPUSCULAR HGB CONC 30 g/dL (32-36); MEAN CORPUSCULAR VOLUME 92 fL (80-99); MEAN PLATELET VOLUME 11.5 fL (9.0-12.2); MONOCYTES # (AUTO) 0.6 10^3/uL (0.0-1.0); MONOCYTES % (AUTO) 5 % (0-12); NEUTROPHILS # (AUTO) 9.2 10^3/uL (1.8-7.8); NEUTROPHILS % (AUTO) 84 % (42-75); PLATELET COUNT 154 10^3/uL (130-400)
[2021-02-13 06:45] LABS: ALBUMIN 2.6 GM/DL (3.2-4.5); POTASSIUM 3.7 MMOL/L (3.6-5.0)
[2021-02-13 06:46] LABS: CALCIUM 8.9 MG/DL (8.5-10.1)
[2021-02-13 06:48] LABS: TOTAL PROTEIN 6.1 GM/DL (6.4-8.2)
[2021-02-13 06:49] LABS: BILIRUBIN,TOTAL 0.7 MG/DL (0.1-1.0)
[2021-02-13 06:51] LABS: CREATININE SERUM 0.75 MG/DL (0.60-1.30)
[2021-02-13 06:54] LABS: MAGNESIUM 1.7 MG/DL (1.6-2.4)
[2021-02-13] MEDS: POTASSIUM CL 10MEQ/50ML IVPB 50 ML IV SCH (07:02)
[2021-02-13] MEDS: KCL 20 MEQ TAB (K-DUR) PO SCH (07:02)
[2021-02-13] MEDS: MAGNESIUM 1 GM/100 ML IVPB 100 ML IV SCH ×3 (07:02→08:12)
[2021-02-13] MEDS: inSUlin ASPART (NovoLOG) 1 UNIT/0.01 ML (CHARGE PER UNIT) SC SCH ×4 (07:03→21:47)
[2021-02-13] MEDS: ASPIRIN E.C. 81 MG (ECOTRIN) TAB PO SCH (08:13)
[2021-02-13] MEDS: ENOXAPARIN 40 MG/0.4 ML (LOVENOX) SYR SC SCH (08:13)
[2021-02-13] MEDS: PREGABALIN 150 MG (LYRICA) CAPSULE PO SCH ×2 (08:13→20:01)
[2021-02-13] MEDS: SENNA W/DOCUSATE (SENOKOT S) TABLET PO SCH ×2 (08:13→20:01)
[2021-02-13] MEDS: FUROSEMIDE 40 MG (LASIX) TAB PO SCH (08:13)
[2021-02-13] MEDS: D5 LR IV SOLUTION 1,000 ML IV SCH ×2 (08:18→20:02)
[2021-02-13] MEDS: TOLTERODINE LA 2 MG (DETROL LA) CAP PO SCH (08:59)
[2021-02-13] MEDS ORDERED: ASPIRIN E.C. 81 MG (ECOTRIN) TAB PO SCH (09:00)
[2021-02-13] MEDS ORDERED: NON-FORMULARY MEDICATION 1 EA EA (Fesoterodine Fumarate (Toviaz) 4 MG) PO SCH (09:00)
[2021-02-13] MEDS ORDERED: NON-FORMULARY MEDICATION 1 EA EA (Levothyroxine Sodium (Synthroid) 200 MCG) PO SCH (09:00)
[2021-02-13] MEDS ORDERED: LEVOTHYROXINE 50 MCG (LEVOTHROID) TAB PO SCH (09:00)
--- NOTE | 2021-02-13 09:06 | Progress Note - Hospitalist ---
Subjective HPI/CC On Admission Date Seen by Provider: Feb 13, 2021 Time Seen by Provider: 08:59 Pt is an 80-year-old male well-known to me from recent admission who presented to the emergency department due to shortness of breath. He was discharged 2 days ago and did well for the first day post discharge but overnight got more short of breath. He was discharged on 5 L of oxygen but was wearing 2 L when EMS arrived. Sats were in the 80s on their arrival. He was given a DuoNeb treatment and this helped his saturations. They attempted to place him on Vapotherm but had difficulty maintaining oxygen saturations so he was placed on BiPAP. CT of his chest showed no PE but persistent pulmonary infiltrates. He was swabbed for Covid and is negative. He has also been vaccinated. He was swabbed multiple times during his last admission and was negative for Covid as well. He was admitted to the ICU on BiPAP. He reports that he is feeling much better today. He continues to affirm wanting to be a DNR/DNI. We discussed the possibility of potential LTAC transfer when more stable. He was very receptive to this idea Subjective/Events-last exam Pt reports doing better today. Breathing improved. On Vapotherm. Discussed plan again about LTACH evaluation for continued oxygen weaning. Focused Exam Lactate Level 02/12/21 03:26: Lactic Acid Level 3.25*H 02/12/21 05:44: Lactic Acid Level 2.15*H 02/12/21 08:15: Lactic Acid Level 1.27 Time of Focused Exam: 05:30 Objective Exam Vital Signs Vital Signs Date Time Temp Pulse Resp B/P (MAP) Pulse Ox O2 Delivery O2 Flow Rate FiO2 02/13/21 08:29 94 Vapotherm 40.00 100 02/13/21 08:02 36.6 02/13/21 06:25 84 02/13/21 06:00 17 108/47 Capillary Refill : Less Than 3 Seconds General Appearance: No Apparent Distress, Chronically ill, Obese Respiratory: No Accessory Muscle Use, Rhonci, Other (on Vapotherm) Cardiovascular: Regular Rate, Rhythm, Systolic Murmur Gastrointestinal: Normal Bowel Sounds, Soft Neurologic/Psychiatric: Alert, Oriented x3 Results/Procedures Lab Laboratory Tests 02/13/21 05:50 Patient resulted labs reviewed. Imaging: Reviewed Imaging Report Assessment/Plan Assessment and Plan Assess & Plan/Chief Complaint Acute hypoxic respiratory failure Severe sepsis due to PNA vs questionable UTI Continue on broad spectrum IV abx, Vanc and Merrem Urine cultures are negative, MRSA negative, blood cultures pending Doing well on Vapotherm [facility] consulted, appreciate recs Lactic acidosis resolved Consider LTCAH transfer when more stable Overall poor direct marketing specialist prognosis Referral placed to [facility] given he just had a 13 day hospital stay and did not fare well at home CAD HTN Aortic stenosis HLD Continue home meds as able Hold antihypertensives for soft BP Hypothyroidism BPH s/p SPT Continue home meds Was seen by Dr Khalil this week during last admission, brock changed on 02/10 DVT prophylaxis: Lovenox Diagnosis/Problems Diagnosis/Problems (1) Urinary retention due to benign prostatic hyperplasia Status: Acute (2) T2DM (type 2 diabetes mellitus) Status: Chronic (3) CAD (coronary artery disease) Status: Chronic (4) Hypothyroidism Status: Chronic (5) Essential hypertension Status: Chronic (6) Type II diabetes mellitus Status: Chronic (7) Sepsis Status: Acute (8) Severe aortic stenosis Status: Chronic (9) Acute respiratory failure with hypoxemia Status: Acute (10) Brock catheter in place Status: Acute LIZANDRO LENTZ MD Feb 13, 2021 09:06
--- NOTE | 2021-02-13 12:53 | Tele-ICU Progress Note ---
Subjective Date Seen by a Provider: Feb 13, 2021 Time Seen by a Provider: 12:48 Subjective/Events-last exam Patient currently not on any vasopressors. He is on a Vapotherm 40 L and 100% FiO2 and resting comfortably. Currently receiving meropenem and vancomycin empirically as he had many admissions with sepsis in the recent past. Awaiting for placement in an LTAC. So far cultures are negative. Video visit made Review of Systems ros per attending physician Sepsis Event Evaluation Height, Weight, BMI Height: 5'11.00" Weight: 282lbs. 0.0oz. [id number]; 35.62 BMI Method:Stated Focused Exam Lactate Level 02/12/21 03:26: Lactic Acid Level 3.25*H 02/12/21 05:44: Lactic Acid Level 2.15*H 02/12/21 08:15: Lactic Acid Level 1.27 Time of Focused Exam: 05:30 Exam Exam Patient acknowledged, consented, and participated in this virtual visit which was conducted using real time audio/video Vital Signs Date Time Temp Pulse Resp B/P (MAP) Pulse Ox O2 Delivery O2 Flow Rate FiO2 02/13/21 11:09 Vapotherm 40.00 100 02/13/21 10:00 95 26 106/52 90 Vapotherm 40.00 100.00 02/13/21 09:00 82 23 99/59 92 Vapotherm 40.00 100.00 02/13/21 08:29 94 Vapotherm 40.00 100 02/13/21 08:26 Vapotherm 40.00 100 02/13/21 08:02 36.6 02/13/21 08:00 90 24 118/56 91 Vapotherm 40.00 100.00 02/13/21 07:00 89 25 130/58 90 Vapotherm 40.00 100.00 02/13/21 06:33 92 Vapotherm 40.00 100 02/13/21 06:25 84 02/13/21 06:00 84 17 108/47 91 Vapotherm 40.00 100.00 02/13/21 05:00 78 18 18/96 96 Vapotherm 40.00 100.00 02/13/21 04:00 Vapotherm 40.00 100 02/13/21 04:00 89 20 121/57 93 Vapotherm 40.00 100.00 02/13/21 04:00 36.0 94 Vapotherm 40.00 100.00 02/13/21 03:00 98 17 110/52 92 Vapotherm 30.00 90.00 02/13/21 02:32 87 Vapotherm 35.00 100 02/13/21 02:00 84 15 101/51 92 Vapotherm 30.00 90.00 02/13/21 01:00 88 17 96/44 91 Vapotherm 30.00 90.00 02/13/21 01:00 88 02/13/21 00:00 36.2 Vapotherm 35.00 100.00 02/13/21 00:00 83 16 102/47 90 Vapotherm 30.00 90.00 02/12/21 23:59 Vapotherm 35.00 100 02/12/21 23:00 84 15 100/49 90 Vapotherm 30.00 90.00 02/12/21 22:34 93 Vapotherm 30.00 90 02/12/21 22:00 93 13 128/54 93 Vapotherm 30.00 90.00 02/12/21 21:00 79 19 124/58 94 Vapotherm 30.00 90.00 02/12/21 20:00 77 16 106/52 91 Vapotherm 30.00 90.00 02/12/21 20:00 Vapotherm 30.00 90 02/12/21 20:00 36.0 Vapotherm 30.00 90.00 02/12/21 19:00 81 14 103/48 95 Vapotherm 30.00 90.00 02/12/21 19:00 81 02/12/21 18:00 84 19 103/56 94 Vapotherm 30.00 100.00 02/12/21 17:00 87 20 114/55 93 Vapotherm 30.00 100.00 02/12/21 16:32 35.8 02/12/21 16:14 90 02/12/21 16:00 87 20 113/56 95 Vapotherm 30.00 100.00 02/12/21 15:35 100 Vapotherm 30.00 100 02/12/21 15:04 Vapotherm 30.00 100 02/12/21 15:00 88 17 120/60 94 Vapotherm 30.00 100.00 02/12/21 14:00 90 14 111/51 96 Vapotherm 30.00 100.00 02/12/21 13:00 90 21 106/53 94 Vapotherm 30.00 100.00 02/12/21 12:54 87 I & O 02/13/21 07:00 Intake Total 4975 ml Output Total 4000 ml Balance 975 ml Height & Weight Height: 5'11.00" Weight: 282lbs. 0.0oz. 127.615456ij; 35.62 BMI Method:Stated General Appearance: No Apparent Distress, Chronically ill, Obese HEENT: PERRL/EOMI; No Scleral Icterus (L), No Scleral Icterus (R); Other (exam obscured by BiPAP mask) Respiratory: No Accessory Muscle Use, Rhonci, Other (on Vapotherm) Cardiovascular: Regular Rate, Rhythm, Systolic Murmur Capillary Refill: Less Than 3 Seconds Peripheral Pulses: 2+ Radial Pulses (R), 2+ Radial Pulses (L) Gastrointestinal: normal bowel sounds, non tender Extremity: Normal Capillary Refill, No Calf Tenderness, No Pedal Edema Neurologic/Psychiatric: Alert, Oriented x3 Skin: Normal Color, Warm/Dry Other comments NH PER ATTENDING PHYSICIAN Results Lab Laboratory Tests 02/12/21 03:26 02/13/21 05:50 Meds REVIEWED Assessment/Plan Assessment/Plan 1. Acute hypoxic respiratory failure secondary to severe sepsis 2. Severe sepsis probably due to pneumonia versus urinary tract infection. 3. History of aortic stenosis 4. Hypertension and coronary artery disease. Recommendations 1. Continue meropenem and vancomycin 2. Continue Vapotherm for oxygenation and ventilation. 3. DVT prophylaxis and ulcer prophylaxis. 4. Awaiting for placement in LTAC. Critical Care: Critically Ill Patient Time spent with patient (mins): 25 HARPREET CUEVA MD Feb 13, 2021 12:53
[2021-02-13] MEDS ORDERED: TROUGH ORDER-PHARMACY XX NR (15:00)
--- NOTE | 2021-02-13 15:09 | Progress Note ---
BHASKAR SCOTT MED STUDENT 02/13/21 1509: Subjective Date Seen by a Provider: Feb 13, 2021 Time Seen by a Provider: 08:00 Subjective/Events-last exam Reports sleeping fairly well overnight. Reports minimal SOB. Tolerating po intake well. Denies complaints at this time. Review of Systems General: No Chills, No Night Sweats HEENT: No Head Aches, No Visual Changes Pulmonary: Dyspnea; No Cough, No Pleuritic Chest Pain Cardiovascular: No: Chest Pain, Palpitations Gastrointestinal: No: Nausea, Vomiting Genitourinary: No Dysuria, No Frequency Musculoskeletal: No: neck pain, back pain Neurological: No: Weakness, Numbness Focused Exam Lactate Level 02/12/21 03:26: Lactic Acid Level 3.25*H 02/12/21 05:44: Lactic Acid Level 2.15*H 02/12/21 08:15: Lactic Acid Level 1.27 Time of Focused Exam: 05:30 Objective Exam Last Set of Vital Signs Vital Signs Date Time Temp Pulse Resp B/P (MAP) Pulse Ox O2 Delivery O2 Flow Rate FiO2 02/13/21 14:28 95 Vapotherm 40.00 100 02/13/21 14:00 89 16 127/65 02/13/21 08:02 36.6 Capillary Refill : Less Than 3 Seconds I&O Intake and Output 02/13/21 00:00 Intake Total 5635 ml Output Total 2400 ml Balance 3235 ml Intake Oral 2840 ml IV Total 2795 ml Output Urine Total 2400 ml Daily Weight Change No General: Alert, Oriented X3, Cooperative, No Acute Distress HEENT: Atraumatic, PERRLA, EOMI Neck: Supple, No LAD, Other (Left IJ subclavian CVC intact. ) Lungs: Clear to Auscultation Heart: Regular Rate Abdomen: Normal Bowel Sounds, Soft, No Tenderness Extremities: No Clubbing, No Cyanosis, No Edema, Normal Pulses Skin: No Rashes, No Significant Lesion Neuro: Normal Speech, Normal Tone, Sensation Intact, Cranial Nerves 3-12 NL Psych/Mental Status: Mental Status NL, Mood NL Other physical findings Anguiano present Results Lab Laboratory Tests 02/12/21 15:51: Glucometer 146H 02/12/21 20:29: Glucometer 138H 02/13/21 05:50: White Blood Count 11.0, Red Blood Count 3.73L, Hemoglobin 10.3#L, Hematocrit 34L , Mean Corpuscular Volume 92, Mean Corpuscular Hemoglobin 28, Mean Corpuscular Hemoglobin Concent 30L, Red Cell Distribution Width 18.4H, Platelet Count 154, Mean Platelet Volume 11.5, Immature Granulocyte % (Auto) 1, Neutrophils (%) (Auto) 84H, Lymphocytes (%) (Auto) 6L, Monocytes (%) (Auto) 5, Eosinophils (%) (Auto) 5, Basophils (%) (Auto) 1, Neutrophils # (Auto) 9.2H, Lymphocytes # (Auto) 0.6L, Monocytes # (Auto) 0.6, Eosinophils # (Auto) 0.5H, Basophils # (Auto) 0.1, Immature Granulocyte # (Auto) 0.1, Sodium Level 136, Potassium Level 3.7, Chloride Level 102, Carbon Dioxide Level 30, Anion Gap 4L, Blood Urea Nitrogen 19H, Creatinine 0.75, Estimat Glomerular Filtration Rate 100, BUN/Creatinine Ratio 25, Glucose Level 117H, Calcium Level 8.9, Corrected Calcium 10.0, Phosphorus Level 2.0L, Magnesium Level 1.7, Total Bilirubin 0.7, Aspartate Amino Transf (AST/SGOT) 24, Alanine Aminotransferase (ALT/SGPT) 28, Alkaline Phosphatase 68, Total Protein 6.1L, Albumin 2.6L 02/13/21 10:49: Glucometer 150H Microbiology 02/12/21 Gram Stain - Final, Resulted 02/12/21 Sputum Culture, Resulted Pending 02/12/21 Urine Culture - Preliminary, Resulted NO GROWTH 02/12/21 Blood Culture - Preliminary, Resulted No growth Assessment/Plan Assessment/Plan Assess & Plan/Chief Complaint Acute hypoxic respiratory failure requiring NIPPV -currently tolerating vapotherm at 40L and 100% -ct angio chest negative for PE -cxray showed severe diffuse pulm infiltrates -covid and flu negative Severe sepsis due to PNA vs UTI -improving -vancomycin and meropenem -fischer culture Anemia -probably dilutional -continue to monitor -hgb 10.3 today Hypophosphatemia -mild, monitor Metabolic lactic acidosis -resolved -patient takes metformin at home NIDDM -accuchecks achs, SSI HTN -hold home antihypertensives due to soft BP's CAD Hypothyroidism -synthroid BPH s/p suprapubic catheter placement approx 1 year ago, pt. reports recently having it changed at Dr. Khalil's office H/O Chronic UTI DVT ppx -lovenox AYLIN BERUMEN DO 02/14/21 0602: Supervisory-Addendum Brief Verification & Attestation Participated in pt care: history, MDM, physical Personally performed: exam, history, MDM, supervision of care Care discussed with: Medical Student Procedures: n/a Results interpretation: Verified all documentation Verification and Attestation of Medical Student E/M Service A medical student performed and documented this service in my presence. I reviewed and verified all information documented by the medical student and made modifications to such information, when appropriate. I personally performed the physical exam and medical decision making. Aylin Berumen, Feb 14, 2021,06:02 BHASKAR SCOTT MED STUDENT Feb 13, 2021 15:09 AYLIN BERUMEN DO Feb 14, 2021 06:02
[2021-02-13] MEDS ORDERED: PANTOPRAZOLE 40 MG (PROTONIX) TAB PO SCH (17:00)
[2021-02-13] MEDS ORDERED: MELATONIN 10 MG TABLET PO SCH (21:00)
[2021-02-14] MEDS: MEROPENEM 500 MG/SWFI 10 ML IV PUSH IV SCH ×6 (00:28→08:08)
[2021-02-14] MEDS: VANCOMYCIN 1500 MG/NS 500 ML IVPB IV SCH ×2 (02:21)
[2021-02-14 02:22] LABS: BASOPHILS # (AUTO) 0.1 10^3/uL (0.0-0.1); BASOPHILS % (AUTO) 1 % (0-10); EOSINOPHILS # (AUTO) 0.6 10^3/uL (0.0-0.3); EOSINOPHILS % (AUTO) 8 % (0-10); HEMATOCRIT 33 % (40-54); HEMOGLOBIN 10.2 g/dL (13.3-17.7); LYMPHOCYTES # (AUTO) 0.8 10^3/uL (1.0-4.0); LYMPHOCYTES % (AUTO) 10 % (12-44); MEAN CORPUSCULAR HEMOGLOBIN 28 pg (25-34); MEAN CORPUSCULAR HGB CONC 31 g/dL (32-36); MEAN CORPUSCULAR VOLUME 91 fL (80-99); MEAN PLATELET VOLUME 11.6 fL (9.0-12.2); MONOCYTES # (AUTO) 0.6 10^3/uL (0.0-1.0); MONOCYTES % (AUTO) 7 % (0-12); NEUTROPHILS % (AUTO) 75 % (42-75); PLATELET COUNT 153 10^3/uL (130-400); WHITE BLOOD COUNT 8.1 10^3/uL (4.3-11.0)
[2021-02-14 02:34] LABS: ALBUMIN 2.6 GM/DL (3.2-4.5); POTASSIUM 3.8 MMOL/L (3.6-5.0)
[2021-02-14 02:35] LABS: CALCIUM 8.9 MG/DL (8.5-10.1)
[2021-02-14 02:36] LABS: TOTAL PROTEIN 6.2 GM/DL (6.4-8.2)
[2021-02-14 02:38] LABS: BILIRUBIN,TOTAL 0.5 MG/DL (0.1-1.0)
[2021-02-14 02:39] LABS: PHOSPHORUS 2.7 MG/DL (2.3-4.7)
[2021-02-14 02:40] LABS: CREATININE SERUM 0.72 MG/DL (0.60-1.30)
[2021-02-14 02:42] LABS: MAGNESIUM 1.6 MG/DL (1.6-2.4)
[2021-02-14] MEDS: RT-ALBUTEROL/IPRATROPIUM 3 ML (DUONEB) VIAL INH SCH ×2 (02:55→10:25)
[2021-02-14] MEDS: MAGNESIUM 1 GM/100 ML IVPB 100 ML IV SCH (03:09)
[2021-02-14] MEDS: POTASSIUM CL 10MEQ/50ML IVPB 50 ML IV SCH (03:20)
[2021-02-14] MEDS: KCL 20 MEQ TAB (K-DUR) PO SCH (03:20)
[2021-02-14] MEDS: inSUlin ASPART (NovoLOG) 1 UNIT/0.01 ML (CHARGE PER UNIT) SC SCH ×2 (03:21→11:05)
[2021-02-14] MEDS: LEVOTHYROXINE 125 MCG (LEVOTHROID) TABLET PO SCH (05:10)
[2021-02-14] MEDS: PREGABALIN 150 MG (LYRICA) CAPSULE PO SCH (08:06)
[2021-02-14] MEDS: FUROSEMIDE 40 MG (LASIX) TAB PO SCH (08:06)
[2021-02-14] MEDS: ASPIRIN E.C. 81 MG (ECOTRIN) TAB PO SCH (08:07)
[2021-02-14] MEDS: SENNA W/DOCUSATE (SENOKOT S) TABLET PO SCH (08:07)
[2021-02-14] MEDS: TOLTERODINE LA 2 MG (DETROL LA) CAP PO SCH (08:07)
[2021-02-14] MEDS: ENOXAPARIN 40 MG/0.4 ML (LOVENOX) SYR SC SCH (08:08)
--- NOTE | 2021-02-14 08:46 | Discharge Summary ---
Diagnosis/Chief Complaint Date of Admission Feb 12, 2021 at 04:55 Date of Discharge Discharge Date: Feb 14, 2021 Admission Diagnosis Acute hypoxic respiratory failure Primary Care Mirza Bach MD Discharge Diagnosis (1) Urinary retention due to benign prostatic hyperplasia Status: Acute (2) T2DM (type 2 diabetes mellitus) Status: Chronic (3) CAD (coronary artery disease) Status: Chronic (4) Hypothyroidism Status: Chronic (5) Essential hypertension Status: Chronic (6) Type II diabetes mellitus Status: Chronic (7) Sepsis Status: Acute (8) Severe aortic stenosis Status: Chronic (9) Acute respiratory failure with hypoxemia Status: Acute (10) Anguiano catheter in place Status: Acute Discharge Summary Discharge Physical Exam Allergies: Coded Allergies: Sulfa (Sulfonamide Antibiotics) (Verified Allergy, Intermediate, RASH, CHILLS, 07/10/19) Vitals & I&Os Vital Signs Date Time Temp Pulse Resp B/P (MAP) Pulse Ox O2 Delivery O2 Flow Rate FiO2 02/14/21 08:25 36.6 02/14/21 08:17 Vapotherm 35.00 70 02/14/21 08:00 80 20 143/117 92 General Appearance: No Apparent Distress, Chronically ill, Obese Respiratory: Decreased Breath Sounds, Rhonci, Other (on Vapotherm 35lpm at 70%) Cardiovascular: Regular Rate, Rhythm, Systolic Murmur Gastrointestinal: Normal Bowel Sounds, Soft Neurologic/Psychiatric: Alert, Oriented x3 Hospital Course Pt is an 80yoCM who was admitted due to acute hypoxic respiratory failure following a prolonged admission for similar due to pneumonia. He was admitted here from 01/30-02/10 for oxygen weaning and was weaned down to 5lpm for home. He returned in respiratory failure on 02/12 and was admitted to the ICU on BiPAP. He was treated with IV Vanc and Merrem and responded well. He was weaned to Vapotherm from BiPAP on 02/13. He is being transferred to [facility] for continued oxygen weaning and IV abx. He was accepted in transfer by Dr Neville. Labs (last 24 hrs) Laboratory Tests 02/13/21 10:49: Glucometer 150H 02/13/21 15:15: Vancomycin Level Trough 18.3 02/13/21 15:25: Glucometer 180H 02/13/21 20:08: Glucometer 131H 02/14/21 02:10: White Blood Count 8.1, Red Blood Count 3.64L, Hemoglobin 10.2L, Hematocrit 33L, Mean Corpuscular Volume 91, Mean Corpuscular Hemoglobin 28, Mean Corpuscular Hemoglobin Concent 31L, Red Cell Distribution Width 18.3H, Platelet Count 153, Mean Platelet Volume 11.6, Immature Granulocyte % (Auto) 0, Neutrophils (%) (Auto) 75, Lymphocytes (%) (Auto) 10L, Monocytes (%) (Auto) 7, Eosinophils (%) (Auto) 8, Basophils (%) (Auto) 1, Neutrophils # (Auto) 6.0, Lymphocytes # (Auto) 0.8L, Monocytes # (Auto) 0.6, Eosinophils # (Auto) 0.6H, Basophils # (Auto) 0.1, Immature Granulocyte # (Auto) 0.0, Sodium Level 139, Potassium Level 3.8, Chloride Level 100, Carbon Dioxide Level 30, Anion Gap 9, Blood Urea Nitrogen 17, Creatinine 0.72, Estimat Glomerular Filtration Rate 105, BUN/Creatinine Ratio 24, Glucose Level 145H, Calcium Level 8.9, Corrected Calcium 10.0, Phosphorus Level 2.7, Magnesium Level 1.6, Total Bilirubin 0.5, Aspartate Amino Transf (AST/SGOT) 20, Alanine Aminotransferase (ALT/SGPT) 26, Alkaline Phosphatase 61, Total Protein 6.2L, Albumin 2.6L Microbiology 02/12/21 Gram Stain - Final, Resulted 02/12/21 Sputum Culture - Preliminary, Resulted Usual upper respiratory tonio 02/12/21 Urine Culture - Preliminary, Resulted NO GROWTH 02/12/21 Blood Culture - Preliminary, Resulted No growth Patient resulted labs reviewed. Pending Labs Laboratory Tests 02/14/21 02:10: White Blood Count 8.1, Red Blood Count 3.64, Hemoglobin 10.2, Hematocrit 33, Mean Corpuscular Volume 91, Mean Corpuscular Hemoglobin 28, Mean Corpuscular Hemoglobin Concent 31, Red Cell Distribution Width 18.3, Platelet Count 153, Mean Platelet Volume 11.6, Immature Granulocyte % (Auto) 0, Neutrophils (%) (Auto) 75, Lymphocytes (%) (Auto) 10, Monocytes (%) (Auto) 7, Eosinophils (%) (Auto) 8, Basophils (%) (Auto) 1, Neutrophils # (Auto) 6.0, Lymphocytes # (Auto) 0.8, Monocytes # (Auto) 0.6, Eosinophils # (Auto) 0.6, Basophils # (Auto) 0.1, Immature Granulocyte # (Auto) 0.0, Sodium Level 139, Potassium Level 3.8, Chloride Level 100, Carbon Dioxide Level 30, Anion Gap 9, Blood Urea Nitrogen 17, Creatinine 0.72, Estimat Glomerular Filtration Rate 105, BUN/Creatinine Ratio 24, Glucose Level 145, Calcium Level 8.9, Corrected Calcium 10.0, Phosphorus Level 2.7, Magnesium Level 1.6, Total Bilirubin 0.5, Aspartate Amino Transf (AST/SGOT) 20, Alanine Aminotransferase (ALT/SGPT) 26, Alkaline Phosphatase 61, Total Protein 6.2, Albumin 2.6 Imaging: Reviewed Imaging Report Discussion & Recommendations Discharge Planning: >30 minutes discharge planning Discharge Home Medications: Active Scripts Active Reported Vitamin C (Ascorbate Calcium) 500 Mg Tablet 500 Mg PO DAILY Toviaz (Fesoterodine Fumarate) 4 Mg Tab.sr.24h 4 Mg PO DAILY Melatonin 10 Mg Tab.rapdis 10-20 Mg PO HS PRN Low Dose Aspirin EC (Aspirin) 81 Mg Tablet.dr 81 Mg PO DAILY Potassium Chloride 10 Meq Capsule.er 10 Meq PO DAILY Furosemide 40 Mg Tablet 40 Mg PO DAILY Senna-Plus Tablet (Sennosides/Docusate Sodium) 1 Each Tablet 2 Tab PO BID Nitrofurantoin (Nitrofurantoin Macrocrystal) 100 Mg Capsule 100 Mg PO 1700 W/DINNER Tramadol HCl 50 Mg Tablet 50 Mg PO Q6H PRN Azo Cranberry Softgel (Cranberry Extract/Vit C) 1 Each Capsule 1 Each PO BID Calcium (Calcium Carbonate) 500 Mg Tablet 500 Mg PO 1700 Synthroid (Levothyroxine Sodium) 200 Mcg Tablet 200 Mcg PO DAILY TAKES 200MCG +50MCG Vitamin B12 (Cyanocobalamin (Vitamin B-12)) 2,500 Mcg Tablet 2,500 Mcg PO DAILY Lyrica (Pregabalin) 150 Mg Capsule 150 Mg PO BID Glucosamine Chondroitin Tab (Gluc Beckham/Chondro Beckham A/Vit C/Mn) 1 Each Tablet 1 Tab PO DAILY Ruben Multi For Men Tablet (Mv-Mn/FA/Lycopene/Lut/Hb#178) 1 Each Tablet 2 Tab PO DAILY Saw [place] (Saw [place] Fruit) 450 Mg Capsule 2 Cap PO DAILY Fish Oil 1,000 mg Capsule ([place] 3 Polyunsat Fatty Acids) 1,000 Mg Cap 1,000 Mg PO DAILY Zinc 50 Mg Tablet 50 Mg PO DAILY Atorvastatin Calcium 40 Mg Tablet 40 Mg PO DAILY Synthroid (Levothyroxine Sodium) 50 Mcg Tablet 50 Mcg PO DAILY TAKES 200MCG +50MCG Metformin HCl ER (Metformin HCl) 1,000 Mg Tab.er.24 1,000 Mg PO BID WITH MEALS Pantoprazole Sodium 40 Mg Tablet.dr 40 Mg PO 1700 Instructions to patient/family Please see electronic discharge instructions given to patient. LIZANDRO LENTZ MD Feb 14, 2021 08:46
--- NOTE | 2021-02-14 10:42 | Tele-ICU Progress Note ---
Subjective Date Seen by a Provider: Feb 14, 2021 Time Seen by a Provider: 10:30 Subjective/Events-last exam Stable and transferring to rehab facility today. Sepsis Event Evaluation Height, Weight, BMI Height: 5'11.00" Weight: 282lbs. 0.0oz. 127.598161od; 35.62 BMI Method:Stated Focused Exam Lactate Level 02/12/21 03:26: Lactic Acid Level 3.25*H 02/12/21 05:44: Lactic Acid Level 2.15*H 02/12/21 08:15: Lactic Acid Level 1.27 Time of Focused Exam: 05:30 Exam Exam Patient acknowledged, consented, and participated in this virtual visit which was conducted using real time audio/video Vital Signs Date Time Temp Pulse Resp B/P (MAP) Pulse Ox O2 Delivery O2 Flow Rate FiO2 02/14/21 10:25 96 Vapotherm 35.00 70 02/14/21 10:00 79 17 139/76 91 Vapotherm 35.00 70.00 02/14/21 09:00 79 14 149/81 93 Vapotherm 35.00 70.00 02/14/21 08:25 36.6 02/14/21 08:17 Vapotherm 35.00 70 02/14/21 08:00 80 20 143/117 92 Vapotherm 35.00 70.00 02/14/21 07:00 75 20 149/77 95 Vapotherm 35.00 70.00 02/14/21 07:00 88 02/14/21 06:50 95 Vapotherm 35.00 70 02/14/21 06:00 80 17 146/71 94 Vapotherm 35.00 70.00 02/14/21 06:00 93 Vapotherm 35.00 70.00 02/14/21 05:00 86 11 126/63 93 Vapotherm 35.00 75.00 02/14/21 04:00 Vapotherm 35.00 70 02/14/21 04:00 84 15 144/71 93 Vapotherm 35.00 75.00 02/14/21 04:00 36.6 Vapotherm 35.00 70.00 02/14/21 03:00 80 21 143/72 91 Vapotherm 35.00 75.00 02/14/21 02:55 92 Vapotherm 40.00 70 02/14/21 02:00 87 19 157/74 91 Vapotherm 35.00 75.00 02/14/21 01:00 80 02/14/21 01:00 75 14 113/55 92 Vapotherm 35.00 75.00 02/14/21 00:00 78 14 136/68 94 Vapotherm 35.00 75.00 02/14/21 00:00 36.7 02/13/21 23:59 Vapotherm 35.00 70 02/13/21 23:55 Vapotherm 35.00 75.00 02/13/21 23:00 90 21 127/64 90 Vapotherm 35.00 80.00 02/13/21 23:00 Vapotherm 35.00 80.00 02/13/21 22:00 90 18 152/75 95 Vapotherm 40.00 80.00 02/13/21 22:00 Vapotherm 40.00 80.00 02/13/21 21:00 84 13 136/68 96 Vapotherm 40.00 90.00 02/13/21 20:00 Vapotherm 40.00 90 02/13/21 20:00 84 13 132/64 96 Vapotherm 40.00 90.00 02/13/21 19:22 37.0 02/13/21 19:00 90 21 122/69 93 Vapotherm 40.00 90.00 02/13/21 19:00 90 02/13/21 18:11 Vapotherm 40.00 90.00 02/13/21 18:00 84 16 147/78 95 Vapotherm 40.00 90.00 02/13/21 17:00 90 19 142/71 95 Vapotherm 40.00 90.00 02/13/21 16:12 Vapotherm 40.00 100.00 02/13/21 16:00 Vapotherm 40.00 100 02/13/21 16:00 93 16 142/67 91 Vapotherm 40.00 90.00 02/13/21 15:52 37.1 02/13/21 15:00 101 22 140/79 89 Vapotherm 40.00 90.00 02/13/21 14:28 95 Vapotherm 40.00 100 02/13/21 14:04 Vapotherm 40.00 90.00 02/13/21 14:00 89 16 127/65 93 Vapotherm 40.00 90.00 02/13/21 13:00 90 20 108/66 93 Vapotherm 40.00 100.00 02/13/21 12:40 94 02/13/21 12:00 91 15 122/53 92 Vapotherm 40.00 100.00 02/13/21 11:09 Vapotherm 40.00 100 02/13/21 11:00 85 15 129/55 92 Vapotherm 40.00 100.00 I & O 02/14/21 07:00 Intake Total 6485 ml Output Total 4325 ml Balance 2160 ml Height & Weight Height: 5'11.00" Weight: 282lbs. 0.0oz. 127.150192xc; 35.62 BMI Method:Stated General Appearance: No Apparent Distress, Chronically ill, Obese HEENT: PERRL/EOMI; No Scleral Icterus (L), No Scleral Icterus (R); Other (exam obscured by BiPAP mask) Respiratory: Decreased Breath Sounds, Rhonci, Other (on Vapotherm 35lpm at 70%) Cardiovascular: Regular Rate, Rhythm, Systolic Murmur Capillary Refill: Less Than 3 Seconds Peripheral Pulses: 2+ Radial Pulses (R), 2+ Radial Pulses (L) Gastrointestinal: normal bowel sounds, non tender Extremity: Normal Capillary Refill, No Calf Tenderness, No Pedal Edema Neurologic/Psychiatric: Alert, Oriented x3 Skin: Normal Color, Warm/Dry Results Lab Laboratory Tests 02/13/21 05:50 02/14/21 02:10 Assessment/Plan Assessment/Plan see free text ANALIA PATEL MD Feb 14, 2021 10:41
== END 2021-02-14 14:30 | DRG 871 ==
LOC: EDUNIT# 03:13 → ER 03:15 → ICU 04:55
PROVIDERS: ADMIT Internal Medicine; ATTEND Internal Medicine
PROC: 5A09357 Assistance with Respiratory Ventilation, Less than 24 Consecutive Hours, Continuous Positive Airway Pressure (ICD-10-PCS; principal; 2021-02-12)
DX: A41.9 Sepsis, unspecified organism (principal); R65.21 Severe sepsis with septic shock; J18.9 Pneumonia, unspecified organism; J96.01 Acute respiratory failure with hypoxia; E87.2 Acidosis; Z66 Do not resuscitate; I25.10 Atherosclerotic heart disease of native coronary artery without angina pectoris; I10 Essential (primary) hypertension; K21.9 Gastro-esophageal reflux disease without esophagitis; M19.90 Unspecified osteoarthritis, unspecified site; G89.29 Other chronic pain; M54.9 Dorsalgia, unspecified; M10.9 Gout, unspecified; E11.9 Type 2 diabetes mellitus without complications; Z20.822 Contact with and (suspected) exposure to COVID-19; N40.0 Benign prostatic hyperplasia without lower urinary tract symptoms; I35.0 Nonrheumatic aortic (valve) stenosis; E03.9 Hypothyroidism, unspecified; D64.9 Anemia, unspecified; E78.00 Pure hypercholesterolemia, unspecified; E83.39 Other disorders of phosphorus metabolism; Z88.2 Allergy status to sulfonamides; Z79.82 Long term (current) use of aspirin; Z79.899 Other long term (current) drug therapy; Z79.890 Hormone replacement therapy; I25.2 Old myocardial infarction; Z87.891 Personal history of nicotine dependence
CPT/HCPCS: 36415; 71045; 71275; 80053; 80202; 81000; 82805; 82947; 83605; 83735; 83880; 84100; 84145; 84484; 85007; 85025; 85027; 85379; 85610; 85730; 86141; 87040; 87070; 87081; 87088; 87205; 87636; 93005; 94640; 94660; 94760; 99291

== ENCOUNTER 2021-03-06 09:54 | Inpatient (IN) | payer MEDICARE, OTHER ==
[2021-03-05 14:46] VITALS: BP 111/64
[~2021-03-06] VITALS: Ht 180 cm; Wt 122.1 kg
[2021-03-06] MEDS ORDERED: NS IV 1000 ML 1,000 ML IV SCH (10:15)
[2021-03-06 10:19] LABS: ABG BASE EXCESS 4.8 MMOL/L (-2.5-2.5); ABG OXYGEN SATURATION 96 % (94-100); ABG PCO2 43 MMHG (35-45); ABG PH 7.44 (7.37-7.43); ABG PO2 79 MMHG (79-93); ABG TCO2 30.2 MMOL/L (21.0-31.0); ALLENS TEST YES-POS; INSPIRED O2 15 L; PATIENT TEMP 36.7; VENTILATOR NO
--- NOTE | 2021-03-06 10:20 | ED Respiratory ---
General Chief Complaint: General Problems/Pain Stated Complaint: WEAKNESS Source: patient Exam Limitations: no limitations History of Present Illness Date Seen by Provider: Mar 06, 2021 Time Seen by Provider: 10:06 Initial Comments Patient to the ER by EMS from home with chief complaint of shortness of air. He is nonweightbearing and just returned home recently from a stay in long-term acute care center at [facility] for pneumonia double lung. He does not typically use oxygen nor does he have any history of asthma COPD. He quit smoking in the 90s. He was on 5 L satting in the 80s. They put him up to nonrebreather 15 L to get him to 99%. No wheezing. No coughing fevers or chills. noted to EMS that urine was clear up until today when it started looking very dark. He has lots of urine output however. He has a suprapubic catheter in place. No history of blood clots or familial history of blood clots. He is not on a blood thinner. He has a heart murmur since he was a kid but no surgery for it. Daughter arrives and states that she thought he felt warm and her significant other measured his temperature at 99 but when she measured it she thought she got 101 Fahrenheit. EMS did not report a fever and we had a 36.7 degrees temperature on arrival according to nursing. No antipyretics. Daughter also reports a week ago he had a traumatic catheter change with his suprapubic catheter and had some bleeding per urethra so they went to the ER at [facility] and his blood thinners were held ever since then. Patient's last dose of antibiotics were 1 week ago Tuesday. Allergies and Home Medications Allergies Coded Allergies: Sulfa (Sulfonamide Antibiotics) (Verified Allergy, Intermediate, RASH, CHILLS, 07/10/19) Patient Home Medication List Home Medication List Reviewed: Yes Ascorbate Calcium (Vitamin C) 500 Mg Tablet, 500 MG PO DAILY, (Reported) Entered as Reported by: PABLO ESQUIVEL on 01/30/21 1200 Aspirin (Low Dose Aspirin EC) 81 Mg Tablet.dr, 81 MG PO DAILY, (Reported) Entered as Reported by: REILLY TRAN on 01/30/21 0222 Atorvastatin Calcium (Atorvastatin Calcium) 40 Mg Tablet, 40 MG PO DAILY, (Reported) Entered as Reported by: DESTINY SOARES on 02/15/18 09 Calcium Carbonate (Calcium) 500 Mg Tablet, 500 MG PO 1700, (Reported) Entered as Reported by: DESTINY SOARES on 05/14/19 143 Cranberry Extract/Vit C (Azo Cranberry Softgel) 1 Each Capsule, 1 EACH PO BID, (Reported) Entered as Reported by: REILLY TRAN on 01/30/21 0128 Cyanocobalamin (Vitamin B-12) (Vitamin B12) 2,500 Mcg Tablet, 2,500 MCG PO DAILY, (Reported) Entered as Reported by: DESTINY SOARES on 05/14/19 143 Fesoterodine Fumarate (Toviaz) 4 Mg Tab.sr.24h, 4 MG PO DAILY, (Reported) Entered as Reported by: PABLO ESQUIVEL on 01/30/21 115 Furosemide (Furosemide) 40 Mg Tablet, 40 MG PO DAILY, (Reported) Entered as Reported by: REILLY TRAN on 01/30/21 0201 Gluc Beckham/Chondro Beckham A/Vit C/Mn (Glucosamine Chondroitin Tab) 1 Each Tablet, 1 TAB PO DAILY, (Reported) Entered as Reported by: DESTINY SOARES on 02/15/18 142 Levothyroxine Sodium (Synthroid) 50 Mcg Tablet, 50 MCG PO DAILY, (Reported) Entered as Reported by: DESTINY SOARES on 02/15/18919 Levothyroxine Sodium (Synthroid) 200 Mcg Tablet, 200 MCG PO DAILY, (Reported) Entered as Reported by: DESTINY SOARES on 05/14/19 143 Melatonin (Melatonin) 10 Mg Tab.rapdis, 10-20 MG PO HS PRN for SLEEP, (Reported) Entered as Reported by: PABLO ESQUIVEL on 01/30/21 115 Metformin HCl (Metformin HCl ER) 1,000 Mg Tab.er.24, 1,000 MG PO BID WITH MEALS, (Reported) Entered as Reported by: DESTINY SOARES on 02/15/18 09 Mv-Mn/FA/Lycopene/Lut/Hb#178 (Ruben Multi For Men Tablet) 1 Each Tablet, 2 TAB PO DAILY, (Reported) Entered as Reported by: DESTINY SOARES on 02/15/18 142 Nitrofurantoin Macrocrystal (Nitrofurantoin) 100 Mg Capsule, 100 MG PO 1700 W/DINNER, (Reported) Entered as Reported by: REILLY TRAN on 01/30/21 0140 Holt 3 Polyunsat Fatty Acids (Fish Oil 1,000 mg Capsule) 1,000 Mg Cap, 1,000 MG PO DAILY, (Reported) Entered as Reported by: DESTINY SOARES on 02/15/18 1421 Pantoprazole Sodium (Pantoprazole Sodium) 40 Mg Tablet.dr, 40 MG PO 1700, (Reported) Entered as Reported by: DESTINY SOARES on 02/15/18 0920 Potassium Chloride (Potassium Chloride) 10 Meq Capsule.er, 10 MEQ PO DAILY, (Reported) Entered as Reported by: REILLY TRAN on 01/30/21 0203 Pregabalin (Lyrica) 150 Mg Capsule, 150 MG PO BID, (Reported) Entered as Reported by: LIOR GRANT on 01/16/19 1132 Saw [place] Fruit (Saw [place]) 450 Mg Capsule, 2 CAP PO DAILY, (Reported) Entered as Reported by: DESTINY SOARES on 02/15/18 1421 Sennosides/Docusate Sodium (Senna-Plus Tablet) 1 Each Tablet, 2 TAB PO BID, (Reported) Entered as Reported by: REILLY TRAN on 01/30/21 0149 Tramadol HCl (Tramadol HCl) 50 Mg Tablet, 50 MG PO Q6H PRN for PAIN-MODERATE (5- 7), (Reported) Entered as Reported by: REILLY TRAN on 01/30/21 0138 Zinc (Zinc) 50 Mg Tablet, 50 MG PO DAILY, (Reported) Entered as Reported by: DESTINY SOARES on 02/15/18 1421 Review of Systems Review of Systems Constitutional: No chills, No diaphoresis EENTM: No ear discharge, No ear pain Respiratory: No cough; short of breath; No wheezing Cardiovascular: No edema, No palpitations Gastrointestinal: No abdominal pain, No nausea, No vomiting Genitourinary: No discharge, No dysuria Musculoskeletal: No back pain, No joint pain Psychiatric/Neurological: Denies Anxiety, Denies Depressed All Other Systems Reviewed Negative Unless Noted: Yes Past Ijjyxdz-Sthstz-Nzqjxj Hx Patient Social History Tobacco Use?: No Smoking Status: Former Smoker (1990s) Substance use?: No Alcohol Use?: No Immunizations Up To Date First/Initial COVID19 Vaccinat: 06/2020 Second COVID19 Vaccination Luis: 07/2020 Seasonal Allergies Seasonal Allergies: No Past Medical History Surgery/Hospitalization HX: Denies recent surgery. Two stents were placed in 1995. Surgeries: Yes (BACK, NECK, HERNIA, R TKR) Abdominal, Appendectomy, Gallbladder, Orthopedic Respiratory: Yes Sleep Apnea Currently Using CPAP: No Currently Using BIPAP: No Cardiac: Yes (CARDIAC STENTS) Chronic Edema/Swelling, Coronary Artery Disease, Heart Attack, Heart Murmur, High Cholesterol, Hypertension Neurological: Yes (R LEG NERVE DAMAGE) Neuropathy Reproductive Disorders: No Sexually Transmitted Disease: No HIV/AIDS: No Genitourinary: Yes (incontience) Benign Prostatic Hyperpl, Bladder Infection, Kidney Stones, UTI-Chronic Gastrointestinal: Yes Gastroesophageal Reflux, Chronic Constipation Musculoskeletal: Yes (osteoarthritis) Arthritis, Chronic Back Pain, Gout Endocrine: Yes Diabetes, Non-Insulin dep HEENT: Yes (READING GLASSES) Cataract Loss of Vision: Denies Hearing Impairment: Denies Cancer: No Psychosocial: No Integumentary: No Blood Disorders: No Adverse Reaction/Blood Tranf: No Family Medical History Alcoholism 19 FATHER Completed stroke 19 MOTHER Diabetes mellitus 19 MOTHER G8 SISTER FH: pancreatic cancer G8 BROTHER Physical Exam Vital Signs - First Documented 03/06/21 09:54 Temp 36.8 Pulse 107 Resp 16 B/P (MAP) 100/61 (74) Pulse Ox 97 O2 Delivery Non Rebreather O2 Flow Rate 15.00 Capillary Refill : Height: 5'11.00" Weight: 282lbs. 0.0oz. 127.502430qn; 35.62 BMI Method:Stated General Appearance: WD/WN, moderate distress Eyes: Bilateral Eye Normal Inspection, Bilateral Eye PERRL, Bilateral Eye EOMI HEENT: PERRL/EOMI, pharynx normal Neck: full range of motion, supple, normal inspection Respiratory: lungs clear, no respiratory distress, no accessory muscle use, decreased breath sounds Cardiovascular: normal peripheral pulses, regular rate, rhythm Gastrointestinal: non tender, soft, other (Suprapubic catheter with no gauze and a thin, dried purulent looking discharge 1 to 2 cc at the os.) Extremities: no pedal edema, normal capillary refill Neurologic/Psychiatric: alert, normal mood/affect, oriented x 3 Skin: normal color, warm/dry Focused Exam Sepsis Stage: Sepsis Possible Source: Pulmonary Lactate Level 03/06/21 10:00: Lactic Acid Level 1.91 Time of Focused Exam: 12:39 Respiratory: No Accessory Muscle Use, Decreased Breath Sounds, Respiratory Distress (CPAP 7 at 40% produces an oxygen saturation 95 to 96% at a rate of 22) Cardiovascular: Regular Rate, Rhythm, No Edema, Normal Peripheral Pulses Capillary Refill: Less Than 3 Seconds Skin: normal color, warm/dry Lactic Acid Level Laboratory Tests Test 03/06/21 10:00 Lactic Acid Level 1.91 MMOL/L (0.50-2.00) Within 3hrs of presentation: Admin fluids, Admin 30ml/kg IBW due to BMI>30 (Adjusted ideal body weight of 90 kg), Admin ABX, Blood cultures prior to ABX's, Focus exam, Lactate level Progress/Results/Core Measures Suspected Sepsis SIRS Temperature: Pulse: Respiratory Rate: Laboratory Tests 03/06/21 10:00: White Blood Count 13.1H Blood Pressure / Mean: 03/06/21 10:00: Lactic Acid Level 1.91 Laboratory Tests 03/06/21 10:00: Creatinine 0.78, Platelet Count 194, Total Bilirubin 1.1H 03/06/21 12:31: INR Comment 1.1 Results/Orders Lab Results Laboratory Tests Test 03/06/21 10:00 03/06/21 10:10 03/06/21 10:25 03/06/21 12:31 Range/Units White Blood Count 13.1 H 4.3-11.0 10^3/uL Red Blood Count 4.23 L 4.30-5.52 10^6/uL Hemoglobin 11.8 L 13.3-17.7 g/dL Hematocrit 38 L 40-54 % Mean Corpuscular Volume 89 80-99 fL Mean Corpuscular Hemoglobin 28 25-34 pg Mean Corpuscular Hemoglobin Concent 32 32-36 g/dL Red Cell Distribution Width 16.5 H 10.0-14.5 % Platelet Count 194 130-400 10^3/uL Mean Platelet Volume 11.4 9.0-12.2 fL Immature Granulocyte % (Auto) 1 % Neutrophils (%) (Auto) 93 H 42-75 % Lymphocytes (%) (Auto) 2 L 12-44 % Monocytes (%) (Auto) 3 0-12 % Eosinophils (%) (Auto) 1 0-10 % Basophils (%) (Auto) 1 0-10 % Neutrophils # (Auto) 12.2 H 1.8-7.8 10^3/uL Lymphocytes # (Auto) 0.3 L 1.0-4.0 10^3/uL Monocytes # (Auto) 0.4 0.0-1.0 10^3/uL Eosinophils # (Auto) 0.1 0.0-0.3 10^3/uL Basophils # (Auto) 0.1 0.0-0.1 10^3/uL Immature Granulocyte # (Auto) 0.1 0.0-0.1 10^3/uL Neutrophils % (Manual) 77 % Lymphocytes % (Manual) 3 % Monocytes % (Manual) 6 % Eosinophils % (Manual) 2 % Basophils % (Manual) 0 % Band Neutrophils 12 % Polychromasia SLIGHT Anisocytosis SLIGHT Sodium Level 137 135-145 MMOL/L Potassium Level 3.8 3.6-5.0 MMOL/L Chloride Level 100 98-107 MMOL/L Carbon Dioxide Level 26 21-32 MMOL/L Anion Gap 11 5-14 MMOL/L Blood Urea Nitrogen 18 7-18 MG/DL Creatinine 0.78 0.60-1.30 MG/DL Estimat Glomerular Filtration Rate 95 BUN/Creatinine Ratio 23 Glucose Level 132 H 70-105 MG/DL Lactic Acid Level 1.91 0.50-2.00 MMOL/L Calcium Level 9.5 8.5-10.1 MG/DL Corrected Calcium 10.1 8.5-10.1 MG/DL Total Bilirubin 1.1 H 0.1-1.0 MG/DL Aspartate Amino Transf (AST/SGOT) 22 5-34 U/L Alanine Aminotransferase (ALT/SGPT) 17 0-55 U/L Alkaline Phosphatase 73 40-136 U/L Troponin I < 0.028 <0.028 NG/ML Total Protein 7.7 6.4-8.2 GM/DL Albumin 3.2 3.2-4.5 GM/DL Blood Gas Puncture Site RT RAD Blood Gas Patient Temperature 36.7 Arterial Blood pH 7.44 H 7.37-7.43 Arterial Blood Partial Pressure CO2 43 35-45 MMHG Arterial Blood Partial Pressure O2 79 79-93 MMHG Arterial Blood HCO3 29 H 23-27 MMOL/L Arterial Blood Total CO2 30.2 21.0-31.0 MMOL/L Arterial Blood Oxygen Saturation 96 94-100 % Arterial Blood Base Excess 4.8 H -2.5-2.5 MMOL/L Kamlesh Test YES-POS Blood Gas Ventilator Setting NO Blood Gas Inspired Oxygen 15 L Urine Color YELLOW Urine Clarity CLEAR Urine pH 8.0 5-9 Urine Specific [place] 1.010 L 1.016-1.022 Urine Protein 1+ H NEGATIVE Urine Glucose (UA) NEGATIVE NEGATIVE Urine Ketones TRACE H NEGATIVE Urine Nitrite NEGATIVE NEGATIVE Urine Bilirubin 1+ H NEGATIVE Urine Urobilinogen 2.0 < = 1.0 MG/DL Urine Leukocyte Esterase 2+ H NEGATIVE Urine RBC (Auto) 2+ H NEGATIVE Urine RBC 5-10 H /HPF Urine WBC 2-5 /HPF Urine Squamous Epithelial Cells NONE /HPF Urine Crystals NONE /LPF Urine Bacteria MODERATE H /HPF Urine Casts NONE /LPF Urine Mucus NEGATIVE /LPF Urine Culture Indicated YES Influenza Type A (RT-PCR) Not Detected Not Detecte Influenza Type B (RT-PCR) Not Detected Not Detecte SARS-CoV-2 RNA (RT-PCR) Not Detected Not Detecte Prothrombin Time 15.0 H 12.2-14.7 SEC INR Comment 1.1 0.8-1.4 Activated Partial Thromboplast Time 40 H 24-35 SEC D-Dimer 3.27 H 0.00-0.49 UG/ML My Orders Orders - RISA BEST Cbc With Automated Diff (03/06/21 10:13) Comprehensive Metabolic Panel (03/06/21 10:13) Blood Culture (03/06/21 10:13) Sputum Culture (03/06/21 10:13) Urinalysis (03/06/21 10:13) Urine Culture (03/06/21 10:13) Protime With Inr (03/06/21 10:13) Partial Thromboplastin Time (03/06/21 10:13) Chest 1 View, Ap/Pa Only (03/06/21 10:13) Ed Iv/Invasive Line Start (03/06/21 10:13) Ed Iv/Invasive Line Start (03/06/21 10:13) Ekg Tracing (03/06/21 10:13) Troponin I (03/06/21 10:13) Vital Signs Adult Sepsis Patie Q15M (03/06/21 10:13) O2 (03/06/21 10:13) Remove Rings In Anticipation O (03/06/21 10:13) Lactic Acid Analyzer (03/06/21 10:13) Influenza A And B By Pcr (03/06/21 10:13) Ns Iv 1000 Ml (Sodium Chloride 0.9%) (03/06/21 10:15) Covid 19 Inhouse Test (03/06/21 10:13) Arterial Blood Gas (03/06/21 10:13) Fibrin Degradation Products (03/06/21 10:13) Manual Differential (03/06/21 10:00) Ct Angio Chest W (03/06/21 11:30) Cefepime Injection (Maxipime Injection) (03/06/21 12:45) Vancomycin Injection (Vancomycin Injecti (03/06/21 12:35) Lactated Ringers (Lr 1000 Ml Iv Solution (03/06/21 12:45) Iohexol Injection (Omnipaque 350 Mg/Ml 1 (03/06/21 13:15) Received Contrast (Hold Metformin- Contr (03/06/21 13:15) Sodium Chloride Flush (Catheter Flush Sy (03/06/21 13:15) Ns (Ivpb) (Sodium Chloride 0.9% Ivpb Bag (03/06/21 13:15) Medications Given in ED Current Medications Medications Dose Ordered Sig/Connor Route Start Time Stop Time Status Last Admin Dose Admin Cefepime HCl 1000 mg/Sterile Water 10 ml @ 200 mls/hr ONCE ONCE IV 03/06/21 12:45 03/06/21 12:47 DC 03/06/21 12:46 200 MLS/HR Iohexol 100 ml ONCE ONCE IV 03/06/21 13:15 03/06/21 13:16 DC 03/06/21 13:13 84 ML Lactated Ringer's 1,000 ml @ 0 mls/hr Q0M ONCE IV 03/06/21 12:45 03/06/21 12:46 DC 03/06/21 12:50 1,000 MLS/HR Sodium Chloride 100 ml ONCE ONCE IV 03/06/21 13:15 03/06/21 13:16 DC 03/06/21 13:13 80 ML Vancomycin HCl 2000 mg/Sodium Chloride 500 ml @ 260 mls/hr 1235 ONCE IV 03/06/21 12:35 03/06/21 14:30 03/06/21 12:54 260 MLS/HR Vital Signs/I&O 03/06/21 03/06/21 09:54 11:24 Temp 36.8 Pulse 107 102 Resp 16 28 B/P (MAP) 100/61 (74) Pulse Ox 97 96 O2 Delivery Non Rebreather O2 Flow Rate 15.00 40.00 Capillary Refill : Progress Note #1: Time: 10:19 Progress Note ABG, septic work-up with soft blood pressure will start with a liter of fluids get a BNP EKG troponin. Concern for pulmonary embolism given his history of immobility. We will get a CT angiogram in addition to a chest x-ray if his kidney function will allow. Possibility of repeat pneumonia. Covid and influenza swabs. Progress Note #2: Time: 12:39 Progress Note Patient's blood pressure has responded well to a liter of fluids as he is laying here. We will give him a second liter based on an adjusted ideal body weight of 90 kg which would be greater than 20 mL/kg. We will chose broad-spectrum antibiotics because there is a question hussain of whether he had fever or not and certainly he came in with a soft blood pressure and significantly increased shortness of breath. He is still not endorsing any chest pain but will get a CT angiogram to get a better look at his lungs as well as look for pulmonary embolisms. Blood and urine cultures were obtained. Microscopic amount of blood is likely due to a recent traumatic catheterization which resulted in him having some gross hematuria last week. That is when they held his Eliquis for the past 7 days. ECG Initial ECG Impression Date: Mar 06, 2021 Initial ECG Impression Time: 10:24 Initial ECG Rate: 105 Initial ECG Rhythm: S.Tach Initial ECG Intervals: Normal Initial ECG Impression: Normal, Nonspecific Changes Comment Sinus tachycardia without clinically relevant ST changes. Diagnostic Imaging Diagonstic Imaging: Xray Plain Films/CT/US/NM/MRI: chest Comments [facility] [place] [place] NAME: DIANDRA VO [facility] REC#: [id number] PT STATUS: REG ER : 1940 PHYSICIAN: RISA BEST MD ADMIT DATE: 03/06/21/ER Draft Date of Exam:03/06/21 CHEST 1 VIEW, AP/PA ONLY INDICATION: Weakness. TIME OF EXAM: 11:12 a.m. COMPARISON: Correlation is made with prior chest from 02/12/2021. FINDINGS: Heart remains enlarged. There are patchy peripheral based infiltrates in the upper and lower lung andrea bilaterally, similar to perhaps slightly improved when compared with the study from 02/12/2021. No effusion is seen. There is no pneumothorax. IMPRESSION: Bilateral infiltrates, similar to perhaps slightly improved when compared with exam from 02/12/2021. Dictated on workstation # [id number] Dict: 03/06/21 1148 Trans: 03/06/21 1155 [id number] Interpreted by: TERESA ZHENG MD Electronically signed by: Reviewed: Reviewed by Me Diagonstic Imaging: CT (angio) Plain Films/CT/US/NM/MRI: chest Comments [facility] [place] [place] NAME: DIANDRA VO [facility] REC#: [id number] PT STATUS: REG ER : 1940 PHYSICIAN: RISA BEST MD ADMIT DATE: 03/06/21/ER Draft Date of Exam:03/06/21 CT ANGIO CHEST W EXAMINATION: CT angiography of the chest. TECHNIQUE: Contrast enhanced thin section helical images were obtained through the chest with intravenous contrast timed for the optimal opacification of the arterial structures per CTA protocol. Post-processing, reconstructions and interpretation of angiographic images of the vessels was performed. 3D MIP reconstructions were performed and reviewed. All CT scans use one or more of the following dose optimizing techniques: automated exposure control, MA and/or KvP adjustment based on a patient size and exam type, or iterative reconstruction. HISTORY: Shortness of breath and weakness. COMPARISON: 02/12/2021 FINDINGS: There is no pulmonary embolism. There are peripheral linear opacities and areas of consolidation show improved from prior exam. No pleural effusion. No pneumothorax. No suspicious nodules. There is no axillary or supraclavicular lymphadenopathy. There are mild mediastinal lymphadenopathy. Heart size is normal. There are severe coronary artery calcifications. No pericardial effusion. Aorta is normal in caliber. Aortic valve is heavily calcified suggestive of aortic stenosis. Limited views of the upper abdomen are unremarkable. There are no suspicious osseous lesions. IMPRESSION: 1. No pulmonary embolism. 2. Moderate linear opacities and consolidation peripherally which has slightly improved from prior exam and are most consistent with pneumonia. Dictated on workstation # [id number] Dict: 03/06/21 1323 Trans: 03/06/21 1331 [id number] Interpreted by: SHAWN BATRES MD Electronically signed by: Reviewed: Reviewed by Me Departure Communication (Admissions) Time/Spoke to Admitting Phy: 13:45 Discussed the case with Dr. Yeung and he graciously agrees to admit the patient for antibiotics, sepsis, pneumonia to the cardiac stepdown unit. Impression Primary Impression: Pneumonia Qualified Codes: J18.9 - Pneumonia, unspecified organism Additional Impressions: Sepsis Qualified Codes: A41.9 - Sepsis, unspecified organism; R65.20 - Severe sepsis without septic shock; J96.01 - Acute respiratory failure with hypoxia Acute respiratory failure with hypoxemia Disposition: ADMITTED INPATIENT Condition: Stable Admissions Decision to Admit Reason: Admit from ER (General) Decision to Admit/Date: Mar 06, 2021 Time/Decision to Admit Time: 13:30 Departure-Patient Inst. Referrals: HUSSAIN GUEVARA MD (PCP/Family) Primary Care Physician RISA BEST Mar 06, 2021 10:20
[2021-03-06 10:26] LABS: BASOPHILS # (AUTO) 0.1 10^3/uL (0.0-0.1); BASOPHILS % (AUTO) 1 % (0-10); EOSINOPHILS # (AUTO) 0.1 10^3/uL (0.0-0.3); EOSINOPHILS % (AUTO) 1 % (0-10); HEMATOCRIT 38 % (40-54); HEMOGLOBIN 11.8 g/dL (13.3-17.7); LYMPHOCYTES # (AUTO) 0.3 10^3/uL (1.0-4.0); LYMPHOCYTES % (AUTO) 2 % (12-44); MEAN CORPUSCULAR HEMOGLOBIN 28 pg (25-34); MEAN CORPUSCULAR HGB CONC 32 g/dL (32-36); MEAN CORPUSCULAR VOLUME 89 fL (80-99); MEAN PLATELET VOLUME 11.4 fL (9.0-12.2); MONOCYTES # (AUTO) 0.4 10^3/uL (0.0-1.0); MONOCYTES % (AUTO) 3 % (0-12); NEUTROPHILS # (AUTO) 12.2 10^3/uL (1.8-7.8); NEUTROPHILS % (AUTO) 93 % (42-75); PLATELET COUNT 194 10^3/uL (130-400); WHITE BLOOD COUNT 13.1 10^3/uL (4.3-11.0)
[2021-03-06 10:35] LABS: ALBUMIN 3.2 GM/DL (3.2-4.5)
[2021-03-06 10:36] LABS: CHLORIDE 100 MMOL/L (98-107); POTASSIUM 3.8 MMOL/L (3.6-5.0); SODIUM 137 MMOL/L (135-145)
[2021-03-06 10:37] LABS: CALCIUM 9.5 MG/DL (8.5-10.1)
[2021-03-06 10:38] LABS: GLUCOSE 132 MG/DL (70-105); TOTAL PROTEIN 7.7 GM/DL (6.4-8.2)
[2021-03-06 10:39] LABS: CARBON DIOXIDE 26 MMOL/L (21-32)
[2021-03-06 10:40] LABS: BILIRUBIN,TOTAL 1.1 MG/DL (0.1-1.0)
[2021-03-06 10:41] LABS: ALKALINE PHOSPHATASE 73 U/L (40-136); ANISOCYTOSIS SLIGHT; BAND NEUTROPHILS 12 %; BASOPHILS % (MANUAL) 0 %; EOSINOPHILS % (MANUAL) 2 %; LYMPHOCYTES % (MANUAL) 3 %; MONOCYTES % (MANUAL) 6 %; NEUTROPHILS % (MANUAL) 77 %; POLYCHROMASIA SLIGHT
[2021-03-06 10:42] LABS: CREATININE SERUM 0.78 MG/DL (0.60-1.30); GFR ESTIMATED 95
[2021-03-06 10:43] LABS: BUN/CREATININE RATIO 23
[2021-03-06 10:45] LABS: ALANINE AMINOTRANSFERASE 17 U/L (0-55)
[2021-03-06 10:45] LABS: CLARITY,URINE CLEAR; COLOR,URINE YELLOW; GLUCOSE, URINE (UA) NEGATIVE (NEGATIVE); KETONES,URINE TRACE (NEGATIVE); LEUKOCYTE ESTERASE ,URINE 2+ (NEGATIVE); NITRITE,URINE NEGATIVE (NEGATIVE); PROTEIN,URINE 1+ (NEGATIVE)
[2021-03-06 11:00] LABS: BACTERIA,URINE MODERATE /HPF; BILIRUBIN,URINE 1+ (NEGATIVE)
[2021-03-06 11:24] VITALS: BP 113/63
--- NOTE | 2021-03-06 11:56 | Diagnostic Imaging Report ---
INDICATION: Weakness. TIME OF EXAM: 11:12 a.m. COMPARISON: Correlation is made with prior chest from 02/12/2021. FINDINGS: Heart remains enlarged. There are patchy peripheral based infiltrates in the upper and lower lung andrea bilaterally, similar to perhaps slightly improved when compared with the study from 02/12/2021. No effusion is seen. There is no pneumothorax. IMPRESSION: Bilateral infiltrates, similar to perhaps slightly improved when compared with exam from 02/12/2021. Dictated by: Dictated on workstation # [id number]
[2021-03-06] MEDS ORDERED: VANCOMYCIN INJECTION 2,000 MG in NS IV 500 ML 500 ML IV ONE (12:35)
[2021-03-06] MEDS ORDERED: CEFEPIME INJECTION 1,000 MG in WATER (STERILE) FOR INJECTION 10 ML IV ONE (12:45)
[2021-03-06] MEDS ORDERED: LACTATED RINGERS 1,000 ML IV ONE (12:45)
[2021-03-06] MEDS ORDERED: IOHEXOL 350 MG/ML 100 ML (OMNIPAQUE 350) VIAL IV ONE (13:15)
[2021-03-06] MEDS ORDERED: HOLD METFORMIN - RECEIVED CONTRAST 20 ML VIAL IV SCH (13:15)
[2021-03-06] MEDS ORDERED: NS 100 ML (IVPB) BAG IV ONE (13:15)
[2021-03-06] MEDS ORDERED: CATHETER FLUSH 10 ML SYR IV PRN ×2 (13:15→15:00)
[2021-03-06 13:27] LABS: FIBRIN DEGRADATION PRODUCTS 3.27 UG/ML (0.00-0.49); INR 1.1 (0.8-1.4)
--- NOTE | 2021-03-06 13:32 | Diagnostic Imaging Report ---
EXAMINATION: CT angiography of the chest. TECHNIQUE: Contrast enhanced thin section helical images were obtained through the chest with intravenous contrast timed for the optimal opacification of the arterial structures per CTA protocol. Post-processing, reconstructions and interpretation of angiographic images of the vessels was performed. 3D MIP reconstructions were performed and reviewed. All CT scans use one or more of the following dose optimizing techniques: automated exposure control, MA and/or KvP adjustment based on a patient size and exam type, or iterative reconstruction. HISTORY: Shortness of breath and weakness. COMPARISON: 02/12/2021 FINDINGS: There is no pulmonary embolism. There are peripheral linear opacities and areas of consolidation show improved from prior exam. No pleural effusion. No pneumothorax. No suspicious nodules. There is no axillary or supraclavicular lymphadenopathy. There are mild mediastinal lymphadenopathy. Heart size is normal. There are severe coronary artery calcifications. No pericardial effusion. Aorta is normal in caliber. Aortic valve is heavily calcified suggestive of aortic stenosis. Limited views of the upper abdomen are unremarkable. There are no suspicious osseous lesions. IMPRESSION: 1. No pulmonary embolism. 2. Moderate linear opacities and consolidation peripherally which has slightly improved from prior exam and are most consistent with pneumonia. Dictated by: Dictated on workstation # [id number]
[2021-03-06] MEDS ORDERED: ACETAMINOPHEN 500 MG TAB (TYLENOL) PO ONE (14:00)
[2021-03-06 14:30] VITALS: BP 111/64
[2021-03-06] MEDS ORDERED: ACETAMINOPHEN 325 MG TABLET PO PRN (15:00)
[2021-03-06] MEDS ORDERED: FLU QUAD HIGH DOSE 240 MCG/0.7 ML 2021-22 (FLUZONE) IM ONE (15:15)
[2021-03-06] MEDS: ENOXAPARIN 40 MG/0.4 ML (LOVENOX) SYR SC SCH ×2 (15:17→15:24)
[2021-03-06] MEDS: LACTATED RINGERS 1,000 ML IV SCH ×2 (15:18→22:26)
[2021-03-06 16:00] VITALS: BP 99/57
[2021-03-06] MEDS ORDERED: [UNRECOGNIZED DRUG - CODE] TP (16:00)
[2021-03-06] MEDS ORDERED: FAMO20TA5 PO (16:00)
[2021-03-06] MEDS: CEFEPIME 1,000 MG/SWFI 10 ML IV PUSH IV SCH ×2 (18:10)
[2021-03-06] MEDS: PREGABALIN 150 MG (LYRICA) CAPSULE PO SCH (19:45)
[2021-03-06 19:46] VITALS: BP 105/56
[2021-03-07] VITALS (7 sets, daily range): BP systolic 98–118; BP diastolic 51–63
[2021-03-07] MEDS: VANCOMYCIN 1500 MG/NS 500 ML IVPB IV SCH ×6 (00:12→23:56)
[2021-03-07] MEDS: CEFEPIME 1,000 MG/SWFI 10 ML IV PUSH IV SCH ×10 (00:12→23:56)
[2021-03-07] MEDS: MELATONIN 3 MG TABLET PO SCH ×2 (01:34→21:03)
[2021-03-07] MEDS: LEVOTHYROXINE 125 MCG (LEVOTHROID) TABLET PO SCH (05:28)
[2021-03-07 06:09] LABS: BASOPHILS # (AUTO) 0.1 10^3/uL (0.0-0.1); BASOPHILS % (AUTO) 1 % (0-10); EOSINOPHILS % (AUTO) 9 % (0-10); HEMATOCRIT 31 % (40-54); HEMOGLOBIN 9.4 g/dL (13.3-17.7); LYMPHOCYTES # (AUTO) 0.6 10^3/uL (1.0-4.0); LYMPHOCYTES % (AUTO) 6 % (12-44); MEAN CORPUSCULAR HEMOGLOBIN 28 pg (25-34); MEAN CORPUSCULAR HGB CONC 31 g/dL (32-36); MEAN CORPUSCULAR VOLUME 90 fL (80-99); MEAN PLATELET VOLUME 11.5 fL (9.0-12.2); MONOCYTES # (AUTO) 0.4 10^3/uL (0.0-1.0); MONOCYTES % (AUTO) 4 % (0-12); NEUTROPHILS # (AUTO) 9.1 10^3/uL (1.8-7.8); NEUTROPHILS % (AUTO) 81 % (42-75); PLATELET COUNT 164 10^3/uL (130-400); WHITE BLOOD COUNT 11.2 10^3/uL (4.3-11.0)
[2021-03-07 06:24] LABS: POTASSIUM 3.7 MMOL/L (3.6-5.0)
[2021-03-07 06:26] LABS: CALCIUM 9.1 MG/DL (8.5-10.1)
[2021-03-07 06:30] LABS: CREATININE SERUM 0.69 MG/DL (0.60-1.30)
[2021-03-07] MEDS: LACTATED RINGERS 1,000 ML IV SCH ×4 (07:09→23:56)
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
[2021-03-07] MEDS: PREGABALIN 150 MG (LYRICA) CAPSULE PO SCH ×2 (10:56→21:02)
[2021-03-07] MEDS: ASPIRIN 81 MG CHEW (CHILDREN'S ASA) PO SCH (10:56)
--- NOTE | 2021-03-07 15:00 | Diagnostic Imaging Report ---
Indication: Dyspnea. Comparison: 03/06/2021. Discussion: Two views of the chest were obtained. Severe consolidation is again noted within the left mid to lower lung and to a slightly lesser degree within the right mid to lower lung, stable. Heart borders remain obscured. No pleural fluid or pneumothorax. No osseous abnormality. Impression: 1. Stable bilateral pulmonary infiltrates. Dictated by: Dictated on workstation # [id number]
[2021-03-07] MEDS: ENOXAPARIN 40 MG/0.4 ML (LOVENOX) SYR SC SCH (15:30)
[2021-03-08 04:00] VITALS: BP 124/76
[2021-03-08] MEDS: CEFEPIME 1,000 MG/SWFI 10 ML IV PUSH IV SCH ×8 (06:23→23:36)
[2021-03-08] MEDS: LEVOTHYROXINE 125 MCG (LEVOTHROID) TABLET PO SCH (06:23)
[2021-03-08] MEDS: PREGABALIN 150 MG (LYRICA) CAPSULE PO SCH ×2 (07:32→20:00)
[2021-03-08] MEDS: ASPIRIN 81 MG CHEW (CHILDREN'S ASA) PO SCH (07:33)
[2021-03-08 07:37] VITALS: BP 127/66
--- NOTE | 2021-03-08 08:45 | Progress Note ---
Subjective Subjective Date Seen by Provider: Mar 08, 2021 Time Seen by Provider: 07:35 Pt reports feeling well this morning. He did not get much sleep last night even without the CPAP. He denies any SOA, N/V, sweats/chills or palpitations. He has not yet seen anyone from PT. He had a normal bowel movement yesterday. Denies any pain. Review of Systems General: No Chills, No Night Sweats Pulmonary: No Dyspnea; Cough Cardiovascular: No: Chest Pain, Palpitations Gastrointestinal: No: Nausea, Vomiting, Diarrhea, Constipation All Other Systems Reviewed All Other Systems Reviewed: Yes Objective Exam Vital Signs Vital Signs Date Time Temp Pulse Resp B/P (MAP) Pulse Ox O2 Delivery O2 Flow Rate FiO2 03/08/21 07:37 87 10 127/66 (86) 95 OxyMask 3.00 03/08/21 07:28 95 OxyMask 5.00 03/08/21 07:00 89 03/08/21 07:00 36.4 03/08/21 04:00 93 12 124/76 (92) 93 OxyMask 3.00 03/08/21 01:00 82 03/07/21 23:57 36.8 78 18 118/63 (81) 94 OxyMask 5.00 03/07/21 21:55 OxyMask 5.00 03/07/21 20:00 OxyMask 5.00 03/07/21 19:23 36.0 76 15 114/51 (72) 97 OxyMask 6.00 03/07/21 19:00 84 03/07/21 15:47 36.1 73 12 113/62 (79) 94 OxyMask 6.00 03/07/21 13:00 77 03/07/21 11:30 36.5 77 11 103/55 (71) 93 OxyMask 6.00 I & O 03/08/21 07:00 Intake Total 1450 ml Output Total 4075 ml Balance -2625 ml General Appearance: No Apparent Distress, WD/WN Eyes: Bilateral Eye Normal Inspection, Bilateral Eye PERRL, Bilateral Eye EOMI HEENT: PERRL/EOMI Neck: Normal Inspection, Supple Respiratory: Chest Non Tender, No Accessory Muscle Use, No Respiratory Distress Cardiovascular: Regular Rate, Rhythm, Systolic Murmur Gastrointestinal: Normal Bowel Sounds, Non Tender, Other (suprapubic catheter in place) Extremity: Normal Inspection, No Calf Tenderness Neurologic/Psychiatric: Alert, Oriented x3, Normal Mood/Affect Skin: Normal Color, Warm/Dry Results Lab Laboratory Tests 03/07/21 22:25: Stool Occult Blood Immunoassay POSITIVEH Microbiology 03/06/21 Blood Culture - Preliminary, Resulted No growth 03/06/21 Urine Culture - Preliminary, Resulted Gram Negative Bacillus 1 Assessment/Plan Assessment/Plan Admission Dx Sepsis due to pneumonia Reason for Inpatient Admission: Oxygen, IV fluids and abx Assessment and Plan Sepsis due to pneumonia WBC, procalcitonin both improving Continue IV Vancomycin and Cefepime. Will order MRSA swab, DC Vanc if negative. Stop IV fluids Acute on chronic respiratory failure with hypoxemia- CT angio showed no signs of Pulmonary embolism. Decreased oxygen from 5L to 3L this morning, breathing well with O2 sats in 93-95 range. Aortic stenosis Echo yesterday revealed this has not worsened. Anemia Hgb stable Iron studies, B12, folate pending Occult blood positive Recommended outpatient colonoscopy Hypothyroidism Continue Levothyroxine Debility PT/OT DVT Prophylaxis- Lovenox Problems: (1) Sepsis due to pneumonia (2) Acute on chronic respiratory failure with hypoxia (3) Urinary tract infection (4) Anemia Admission Dx Septic Pneumonia- Continue IV fluids, Vancomycin and Cefepime. Acute on chronic respiratory failure with hypoxemia-CT angio showed no signs of Pulmonary embolism. Oxygen reduced from 10L to 6L this morning. Will keep on 6L for now and try to maintain O2 sat in 90-93 range Aortic stenosis - Pt will have echo today to check for worsening stenosis that could be contributing to his shortness of breath Hypothyroidism - Levothyroxine 250mcg daily T2DM Clinical Quality Measures Admission Status Admission Dx Septic Pneumonia- Continue IV fluids, Vancomycin and Cefepime. Acute on chronic respiratory failure with hypoxemia-CT angio showed no signs of Pulmonary embolism. Oxygen reduced from 10L to 6L this morning. Will keep on 6L for now and try to maintain O2 sat in 90-93 range Aortic stenosis - Pt will have echo today to check for worsening stenosis that could be contributing to his shortness of breath Hypothyroidism - Levothyroxine 250mcg daily T2DM Supervisory-Addendum Brief Verification & Attestation Participated in pt care: history, MDM, physical Personally performed: exam, history, MDM, supervision of care Care discussed with: Medical Student Procedures: n/a Results interpretation: Verified all documentation A medical student performed and documented this service in my presence. I reviewed and verified all information documented by the medical student and made modifications to such information, when appropriate. I personally performed the physical exam and medical decision making. SIXTO BROWN Mar 08, 2021 08:45 NAREN MCMAHON MD Mar 08, 2021 12:48
[2021-03-08] MEDS: LACTATED RINGERS 1,000 ML IV SCH (09:08)
[2021-03-08 10:09] LABS: BASOPHILS % (AUTO) 1 % (0-10); EOSINOPHILS # (AUTO) 0.7 10^3/uL (0.0-0.3); EOSINOPHILS % (AUTO) 12 % (0-10); HEMATOCRIT 32 % (40-54); HEMOGLOBIN 9.9 g/dL (13.3-17.7); LYMPHOCYTES # (AUTO) 0.5 10^3/uL (1.0-4.0); LYMPHOCYTES % (AUTO) 8 % (12-44); MEAN CORPUSCULAR HEMOGLOBIN 28 pg (25-34); MEAN CORPUSCULAR HGB CONC 31 g/dL (32-36); MEAN CORPUSCULAR VOLUME 91 fL (80-99); MEAN PLATELET VOLUME 11.4 fL (9.0-12.2); MONOCYTES # (AUTO) 0.4 10^3/uL (0.0-1.0); MONOCYTES % (AUTO) 7 % (0-12); NEUTROPHILS # (AUTO) 4.4 10^3/uL (1.8-7.8); NEUTROPHILS % (AUTO) 72 % (42-75); PLATELET COUNT 150 10^3/uL (130-400); WHITE BLOOD COUNT 6.1 10^3/uL (4.3-11.0)
[2021-03-08 10:47] LABS: CALCIUM 8.8 MG/DL (8.5-10.1); CREATININE SERUM 0.74 MG/DL (0.60-1.30); POTASSIUM 3.9 MMOL/L (3.6-5.0)
[2021-03-08] MEDS ORDERED: SIMETHICONE 80 MG (MYLICON) CHEW PO PRN (11:15)
[2021-03-08] MEDS: FAMOTIDINE 20 MG (PEPCID) TABLET PO SCH ×2 (11:29→20:00)
[2021-03-08 11:45] VITALS: BP 122/68
[2021-03-08] MEDS: ENOXAPARIN 40 MG/0.4 ML (LOVENOX) SYR SC SCH (13:39)
[2021-03-08] MEDS: VANCOMYCIN 1500 MG/NS 500 ML IVPB IV SCH ×4 (13:40→23:36)
[2021-03-08 16:04] VITALS: BP 116/54
[2021-03-08] MEDS: PANTOPRAZOLE 40 MG (PROTONIX) TAB PO SCH (17:34)
[2021-03-08 20:00] VITALS: BP 127/65
[2021-03-08] MEDS: MELATONIN 3 MG TABLET PO SCH (20:00)
[2021-03-08 23:49] VITALS: BP 134/72
[2021-03-09 04:00] VITALS: BP 141/68
[2021-03-09] MEDS: LEVOTHYROXINE 125 MCG (LEVOTHROID) TABLET PO SCH (05:12)
[2021-03-09] MEDS: CEFEPIME 1,000 MG/SWFI 10 ML IV PUSH IV SCH ×8 (05:12→23:40)
[2021-03-09 07:50] VITALS: BP 144/76
[2021-03-09] MEDS: FAMOTIDINE 20 MG (PEPCID) TABLET PO SCH ×2 (08:30→20:11)
[2021-03-09] MEDS: PREGABALIN 150 MG (LYRICA) CAPSULE PO SCH ×2 (08:30→20:11)
[2021-03-09] MEDS: ASPIRIN 81 MG CHEW (CHILDREN'S ASA) PO SCH (08:30)
[2021-03-09] MEDS ORDERED: LEVOTHYROXINE 50 MCG (LEVOTHROID) TAB PO SCH (09:00)
[2021-03-09] MEDS ORDERED: NON-FORMULARY MEDICATION 1 EA EA (Levothyroxine Sodium (Synthroid) 200 MCG) PO SCH (09:00)
--- NOTE | 2021-03-09 10:18 | Progress Note - Hospitalist ---
Subjective HPI/CC On Admission Date Seen by Provider: Mar 09, 2021 Time Seen by Provider: 10:14 Subjective/Events-last exam Patient reports feeling ok today and about the same as yesterday. Would like to take an actual shower today. Daughter at bedside and discussed plan to go home mid week with HH if he is able to do well with strength and oxygen stabilizes. They are agreeable to this plan. Focused Exam Lactate Level 03/06/21 15:25: Lactic Acid Level 1.73 Time of Focused Exam: 12:39 Objective Exam Vital Signs Vital Signs Date Time Temp Pulse Resp B/P (MAP) Pulse Ox O2 Delivery O2 Flow Rate FiO2 03/09/21 08:00 92 Nasal Cannula 3.50 03/09/21 07:50 36.0 87 12 144/76 (98) Capillary Refill : Greater Than 3 Seconds General Appearance: No Apparent Distress, Chronically ill, Obese Respiratory: Crackles (in bases ), Other (on 4lpm) Cardiovascular: Regular Rate, Rhythm, Systolic Murmur Gastrointestinal: Normal Bowel Sounds, Non Tender, Soft Neurologic/Psychiatric: Alert, Oriented x3 Results/Procedures Lab Patient resulted labs reviewed. Assessment/Plan Assessment and Plan Assess & Plan/Chief Complaint Sepsis due to pneumonia Acute on chronic respiratory failure with hypoxemia WBC, procalcitonin both improving Continue Cefepime, plan to DC with longer course of abx and follow up with pulm Discussed with daughter and pt that hopefully this will prevent readmission but given everything his lungs have been through in the past few weeks any minor insult could bring him back to the hospital and the high likelihood of chronic lung disease for the rest of his life CT angio showed no signs of Pulmonary embolism Currently on 4lpm, baseline is 3lpm Anemia Hgb stable Iron studies with iron deficiency, B12, folate normal Occult blood positive Recommended outpatient colonoscopy CAD HTN Aortic stenosis HLD Continue home meds as able Hypothyroidism BPH s/p SPT Continue home meds Was seen by Dr Khalil last month, vinod villalpando on 02/10 DVT Prophylaxis- Lovenox LIZANDRO LENTZ MD Mar 09, 2021 10:18
--- NOTE | 2021-03-09 10:36 | Physical Therapy Evaluation ---
PT Evaluation-General Medical Diagnosis Admission Date Mar 06, 2021 at 14:00 Medical Diagnosis: pneumonia/respiratory failure Onset Date: Mar 06, 2021 Therapy Diagnosis Therapy Diagnosis: debility/weakness Height/Weight Height (Feet): 5 Height (Inches): 11.00 Weight (Pounds): 282 Weight (Ounces): 0.0 Precautions Precautions/Isolations: Fall Prevention, Standard Precautions Referral Physician: Gamal Reason for Referral: Evaluation/Treatment Medical History Pertinent Medical History: CAD, DM, HTN, MD, Neuropathy Current History EMS secondary to SOA/multiple hospital admits this year Reviewed History: Yes Social History Home: Single Level Current Living Status: Spouse Entry Into Home: Ramp Prior Prior Level of Function SCALE: Activities may be completed with or without assistive devices. 2-Leabzvygqp-oytvbzr completes the activity by him/herself with no assistance from a helper. 5-Set-up or Clean-up Assistance-helper sets up or cleans up; patient completes activity. [place] assists only prior to or following the activity. 4-Supervision or Touching Assistance-helper provides verbal cues and/or touching/steadying and/or contact guard assistance as patient completes activity. Assistance may be provided throughout the activity or intermittently. 3-Partial/Moderate Assistance-helper does LESS THAN HALF the effort. [place] lifts, holds or supports trunk or limbs, but provides less than half the effort. 2-Substantial/Maximal Assistance-helper does MORE THAN HALF the effort. [place] lifts or holds trunk or limbs and provides more than half the effort. 4-Ndfjmiejn-wbmnrj does ALL the effort. Patient does none of the effort to complete the activity. Or, the assistance of 2 or more helpers is required for the patient to complete the activity. If activity was not attempted, code reason: 7-Patient Refused. 9-Not Applicable-not attempted and the patient did not perform the activity before the current illness, exacerbation or injury. 10-Not Attempted due to Environmental Limitations-(lack of equipment, weather restraints, etc.). 88-Not Attempted due to Medical Conditions or Safety Concerns. Bed Mobility: 4 Transfers (B,C,W/C): 4 Gait: 4 Stairs: 9 Indoor Mobility (Ambulation): Needed Some Help (short distances only) Stairs: Not [place] Prior Devices Use: Motorized scooter, Walker PT Evaluation-Current Subjective Patient agrees to PT. Objective Patient Orientation: Normal For Age Attachments: Oxygen, Suprapubic Catheter ROM/Strength ROM Lower Extremities bilateral LE WFL (noted edema right knee) Strength Lower Extremities 3+/5 grossly bilateral LE Integumentary/Posture Integumentary refer to nursing notes Posture WFL Neuromuscular (Tone, Coordination, Reflexes) grossly intact Sensory Vision: Functional Hearing: Impaired Sensation Right Lower Extremit: Impaired Sensation Left Lower Extremity: Impaired Transfers Lying to Sitting/Side of Bed(Q: 3 Sit to Stand (QC): 4 Chair/Gkt-rc-Jstsq Xfer(QC): 4 Gait Does the Patient Walk?: Yes Mode of Locomotion: Both Anticipated Mode of Locomotion: Both Walk 10 feet (QC): 4 Walk 50 ft with 2 Turns(QC): 88 Walk 150 ft (QC): 88 Gait Assistive Device: FWW Comments/Gait Description steady, functional gait sequence Balance Sitting Static: Normal Sitting Dynamic: Normal Standing Static: Normal Standing Dynamic: Normal Treatment sit to stand to FWW x 3 sets with SAO2 decreasing to low 80's with quick recovery with pursed lip breathing Assessment/Needs 80 y.o. male, will benefit from skilled PT to address functional strength and mobility to improve current LOF to safely return to home with family at maximum LOF. Rehab Potential: Guarded PT Group Home Goals Group Home Goals PT Group Home Goals Time Frame: Mar 21, 2021 Roll Left & Right (QC): 4 Sit to Lying (QC): 4 Lying-Sitting on Side/Bed(QC): 4 Sit to Stand (QC): 4 Chair/Wjk-ci-Pzweh Xfer(QC): 4 Toilet Transfer (QC): 4 Walk 10 feet (QC): 4 PT Plan Problem List Problem List: Activity Tolerance Treatment/Plan Treatment Plan: Continue Plan of Care Treatment Plan: Bed Mobility, Education, Functional Activity Glenn, Functional Strength, Gait, Safety, Therapeutic Exercise, Transfers Treatment Duration: Mar 21, 2021 Frequency: 6 times per week Estimated Hrs Per Day: .5 hour per day Patient and/or Family Agrees t: Yes Time/GCodes Time In: 745 Time Out: 813 Total Billed Treatment Time: 28 Total Billed Treatment 1 visit EVModC 18 min FA 10 min CLAY HOLGUIN PT Mar 09, 2021 10:36
[2021-03-09 11:15] VITALS: BP 119/66
[2021-03-09] MEDS: ENOXAPARIN 40 MG/0.4 ML (LOVENOX) SYR SC SCH (13:01)
[2021-03-09] MEDS: LACTOBACILLUS ACIDOPHILUS (PROBIOTIC) CAPSULE PO SCH ×2 (13:02→18:01)
--- NOTE | 2021-03-09 14:55 | Occupational Therapy Eval ---
OT Evaluation-General/PLF Medical Diagnosis Admission Date Mar 06, 2021 at 14:00 Medical Diagnosis: pneumonia/respiratory failure Onset Date: Mar 06, 2021 Therapy Diagnosis Therapy Diagnosis: weakness, decreased ADL Status Height/Weight Height (Feet): 5 Height (Inches): 11.00 Weight (Pounds): 282 Weight (Ounces): 0.0 Precautions Precautions/Isolations: Fall Prevention, Standard Precautions Referral Physician: Gamal Referral Reason: Evaluation/Treatment Medical History Pertinent Medical History: CAD, DM, HTN, [place], Neuropathy Additional Medical History 2 stents after UT 1995, sleep apnea, CAD, heart attack, HTN, neuropathy, cataract, BPH, bladder infection, kidney stones, UTI-chronic, GERD, arthritis, gout Current History ED due to SOB, multiple hospital stays this year Social History Home: [facility] Current Living Status: Spouse Entry Into Home: Ramp power chair lift on stairs. ADL-Prior Level of Function SCALE: Activities may be completed with or without assistive devices. 3-Asopjdvdoy-moswlfj completes the activity by him/herself with no assistance from a helper. 5-Set-up or Clean-up Assistance-helper sets up or cleans up; patient completes activity. [place] assists only prior to or following the activity. 4-Supervision or Touching Assistance-helper provides verbal cues and/or touching/steadying and/or contact guard assistance as patient completes activity. Assistance may be provided throughout the activity or intermittently. 3-Partial/Moderate Assistance-helper does LESS THAN HALF the effort. [place] lifts, holds or supports trunk or limbs, but provides less than half the effort. 2-Substantial/Maximal Assistance-helper does MORE THAN HALF the effort. [place] lifts or holds trunk or limbs and provides more than half the effort. 8-Zrlqvohxw-kmjevu does ALL the effort. Patient does none of the effort to complete the activity. Or, the assistance of 2 or more helpers is required for the patient to complete the activity. If activity was not attempted, code reason: 7-Patient Refused. 9-Not Applicable-not attempted and the patient did not perform the activity before the current illness, exacerbation or injury. 10-Not Attempted due to Environmental Limitations-(lack of equipment, weather restraints, etc.). 88-Not Attempted due to Medical Conditions or Safety Concerns. ADL PLOF Comments Pt reports he has a motorized scooter that he uses primarily, only uses walker for short distances. Pt indicates he is able to complete his shower while using a LH sponge for LEs, present indicates she assists pt in the shower when needed. Pt uses AE for LE dressing. Self Care: Needed Some Help DME/Equipment: Bath Chair, Grab Bars, Shower DME/Equipment Comments motorized scooter, walker. OT Current Status Subjective Pt in bed, and daughter present. Upon OT introducing self to pt, him and family indicated that this therapist was there to get pt into the shower. OT informed pt and family that she did not have time to do this, but his nurse/aide could assist him. Pt and assisted that this is the reason OT is in the room and insists this therapist needs to find a shower chair. OT looked for SC, but unable to locate one, aide present stating she will look for one and get pt in the shower this afternoon. Mental Status/Objective Patient Orientation: Person, Place, Situation Attachments: Oxygen, Suprapubic Catheter Current Hand Dominance: Right Upper Extremity ROM WFL Upper Extremity Coordination WFL Upper Extremity Sensation WFL Upper Extremity Strength grossly 3+/5 ADL-Treatment Eating (QC): 6 (Per pt report) Shower/Bathe Self (QC): 10 (SC unavailable at time of tx) Toileting Hygiene (QC): 1 (catheter) Other Treatments Pt laying in bed, OT introduced self to pt and family members. They indicate this therapist is there to assist with showering. OT informed pt and family that she does not have time right now, but his nurse and aide would be available this afternoon. Pt insisted this therapist locate a shower chair and get him in the chair and wheel him into the shower. He states his would complete the shower from there. OT looked around unit and talked to staff members, but unable to find SC. OT returned to room, informed pt again that nursing staff can assist him later, pt insists this therapist did not look hard enough, aide present suggested another area to look for SC. OT left room, looked for SC, unable to locate one. OT returned to pt's room, and expresses difficulty with locating shower chair, informing pt his aide will look again later and help him into the shower. OT encouraged pt to complete BUE exercises in order to increase BUE strength and activity tolerance. Pt states "you have time to do this but you don't have time to get me in the shower". OT again informed pt about inability to locate shower chair and pt indicates he cannot walk the distance from his bed to the built in shower bench. OT attempted to educate pt on safety aspects and fall risk of not having SC, as pt doesn't feel able to make it into the bathroom without one. Pt reluctantly agreeable to BUE exercises. Pt completed 5/5 BUE exercises, x10 reps each using light resistance theraband. Post tx, pt in bed, call light in reach and all needs met. Education OT Patient Education: Correct positioning, Energy conservation, Modified ADL techniques, Progress toward Goal/Update tx plan, Purpose of tx/functional activities Teaching Recipient: Patient Teaching Methods: Discussion Response to Teaching: Reinforcement Needed OT Irrigator Goals Irrigator Goals Time Frame: Mar 20, 2021 Eating (QC): 6 Oral Hygiene (QC): 6 Shower/Bathe Self (QC): 4 Upper Body Dressing (QC): 5 Lower Body Dressing (QC): 4 On/Off Footwear (QC): 4 Additional Goals: 1-Demonstrate ADL Tasks, 2-Verbalize Understanding, 3- ImproveStrength/Glenn 1=Demonstrate adherence to instructed precautions during ADL tasks. 2=Patient will verbalize/demonstrate understanding of assistive devices/modifications for ADL. 3=Patient will improve strength/tolerance for activity to enable patient to perform ADL's. OT Education/Plan Problem List/Assessment Assessment: Decreased Activ Tolerance, Decreased UE Strength, Impaired Funct Balance, Impaired I ADL's, Impaired Self-Care Skills Discharge Recommendations Plan/Recommendations: Continue POC Treatment Plan/Plan of Care Patient would benefit from OT for education, treatment and training to promote independence in ADL's, mobility, safety and/or upper extremity function for ADL's. Plan of Care: ADL Retraining, Functional Mobility, UE Funct Exercise/Act Treatment Duration: Mar 20, 2021 Frequency: 5 times per week Estimated Hrs Per Day: .25 hour per day Rehab Potential: Guarded Time/GCodes Start Time: 13:25 Stop Time: 14:00 Total Time Billed (hr/min): 35 Billed Treatment Time 1, EVM (20'), EX (15') JHONATAN RAMIRES OT Mar 09, 2021 14:55
[2021-03-09 16:18] VITALS: BP 118/71
[2021-03-09] MEDS: PANTOPRAZOLE 40 MG (PROTONIX) TAB PO SCH (18:01)
[2021-03-09 19:50] VITALS: BP 129/68
[2021-03-09] MEDS: MELATONIN 3 MG TABLET PO SCH (20:11)
[2021-03-09 23:40] VITALS: BP 118/64
[2021-03-10 04:00] VITALS: BP 122/66
[2021-03-10] MEDS: CEFEPIME 1,000 MG/SWFI 10 ML IV PUSH IV SCH ×8 (05:18→23:13)
[2021-03-10] MEDS: LEVOTHYROXINE 125 MCG (LEVOTHROID) TABLET PO SCH (05:18)
[2021-03-10 06:06] LABS: HEMATOCRIT 33 % (40-54); HEMOGLOBIN 9.9 g/dL (13.3-17.7); MEAN CORPUSCULAR HEMOGLOBIN 27 pg (25-34); MEAN CORPUSCULAR HGB CONC 30 g/dL (32-36); MEAN CORPUSCULAR VOLUME 90 fL (80-99); MEAN PLATELET VOLUME 11.2 fL (9.0-12.2); PLATELET COUNT 174 10^3/uL (130-400); WHITE BLOOD COUNT 6.8 10^3/uL (4.3-11.0)
[2021-03-10 06:14] LABS: POTASSIUM 4.1 MMOL/L (3.6-5.0)
[2021-03-10 06:15] LABS: CALCIUM 9.2 MG/DL (8.5-10.1)
[2021-03-10 06:19] LABS: CREATININE SERUM 0.73 MG/DL (0.60-1.30)
[2021-03-10 08:00] VITALS: BP 122/66
--- NOTE | 2021-03-10 08:22 | Progress Note - Hospitalist ---
Subjective HPI/CC On Admission Date Seen by Provider: Mar 10, 2021 Time Seen by Provider: 08:16 Subjective/Events-last exam Pt reports doing better physically today and had a decent night's sleep. His only complaint is about the shower pressure in his bathroom. Focused Exam Time of Focused Exam: 12:39 Objective Exam Vital Signs Vital Signs Date Time Temp Pulse Resp B/P (MAP) Pulse Ox O2 Delivery O2 Flow Rate FiO2 03/10/21 04:00 36.5 91 16 122/66 (84) 92 Nasal Cannula 4.00 Capillary Refill : Greater Than 3 Seconds General Appearance: No Apparent Distress, Chronically ill, Obese Respiratory: Lungs Clear, No Accessory Muscle Use; No Crackles; Other (on 4lpm) Cardiovascular: Regular Rate, Rhythm, Systolic Murmur Neurologic/Psychiatric: Alert, Oriented x3 Results/Procedures Lab Laboratory Tests 03/10/21 05:28 Patient resulted labs reviewed. Assessment/Plan Assessment and Plan Assess & Plan/Chief Complaint Sepsis due to pneumonia Acute on chronic respiratory failure with hypoxemia WBC, procalcitonin both improving Continue Cefepime, plan to DC with longer course of abx and follow up with pulm CT angio showed no signs of Pulmonary embolism Currently on 4lpm, stable overnight, baseline is 3lpm Transfer to 4th today Anemia Hgb stable Iron studies with iron deficiency, B12, folate normal Defer Infed for now due to recurrent infections Occult blood positive Recommended outpatient colonoscopy, he believes his last one was 5-10 years ago but last scope that I could find here was 2007 and was an EGD CAD HTN Aortic stenosis HLD Continue home meds as able Hypothyroidism BPH s/p SPT Continue home meds Was seen by Dr Khalil last month, vinod villalpando on 02/10 DVT Prophylaxis- Lovenox LIZANDRO LENTZ MD Mar 10, 2021 08:22
[2021-03-10] MEDS: ASPIRIN 81 MG CHEW (CHILDREN'S ASA) PO SCH (09:07)
[2021-03-10] MEDS: FAMOTIDINE 20 MG (PEPCID) TABLET PO SCH ×2 (09:08→20:06)
[2021-03-10] MEDS: LACTOBACILLUS ACIDOPHILUS (PROBIOTIC) CAPSULE PO SCH ×3 (09:08→17:50)
[2021-03-10] MEDS: PREGABALIN 150 MG (LYRICA) CAPSULE PO SCH ×2 (09:08→20:06)
--- NOTE | 2021-03-10 10:18 | Physical Therapy Daily Note ---
PT Daily Note-Current Subjective Patient agrees to PT. Mental Status Patient Orientation: Normal For Age Attachments: Oxygen, Suprapubic Catheter Transfers SCALE: Activities may be completed with or without assistive devices. 7-Bwzafhocww-ufirkyl completes the activity by him/herself with no assistance from a helper. 5-Set-up or Clean-up Assistance-helper sets up or cleans up; patient completes activity. [place] assists only prior to or following the activity. 4-Supervision or Touching Assistance-helper provides verbal cues and/or touching/steadying and/or contact guard assistance as patient completes activity. Assistance may be provided throughout the activity or intermittently. 3-Partial/Moderate Assistance-helper does LESS THAN HALF the effort. [place] lifts, holds or supports trunk or limbs, but provides less than half the effort. 2-Substantial/Maximal Assistance-helper does MORE THAN HALF the effort. [place] lifts or holds trunk or limbs and provides more than half the effort. 2-Dgmsatrdz-qitflx does ALL the effort. Patient does none of the effort to complete the activity. Or, the assistance of 2 or more helpers is required for the patient to complete the activity. If activity was not attempted, code reason: 7-Patient Refused. 9-Not Applicable-not attempted and the patient did not perform the activity before the current illness, exacerbation or injury. 10-Not Attempted due to Environmental Limitations-(lack of equipment, weather restraints, etc.). 88-Not Attempted due to Medical Conditions or Safety Concerns. Lying to Sitting/Side of Bed(Q: 3 Sit to Stand (QC): 3 Chair/Qea-aq-Jpuzw Xfer(QC): 3 Gait Training Distance: 5 steps Gait Assistive Device: FWW minimal assist Exercises Supine Ex: Ankle pumps, Quad Set, Heel Slides, Straight leg raise Supine Reps: 15 (AAROM) Seated Therapy Exercises: Long arc quads Seated Reps: 15 (AROM) Assessment Patient up in elevated chair with breakfast in situ. Increase activity as patient tolerates. PT Cloak Room Attendant Goals Cloak Room Attendant Goals PT Cloak Room Attendant Goals Time Frame: Mar 21, 2021 Roll Left & Right (QC): 4 Sit to Lying (QC): 4 Lying-Sitting on Side/Bed(QC): 4 Sit to Stand (QC): 4 Chair/Vie-id-Zyywn Xfer(QC): 4 Toilet Transfer (QC): 4 Walk 10 feet (QC): 4 PT Plan Treatment/Plan Treatment Plan: Continue Plan of Care Treatment Plan: Bed Mobility, Education, Functional Activity Glenn, Functional Strength, Gait, Safety, Therapeutic Exercise, Transfers Treatment Duration: Mar 21, 2021 Frequency: 6 times per week Estimated Hrs Per Day: .5 hour per day Patient and/or Family Agrees t: Yes Time/GCodes Time In: 725 Time Out: 741 Total Billed Treatment Time: 16 Total Billed Treatment 1 visit EX 16 min CLAY HOLGUIN PT Mar 10, 2021 10:18
--- NOTE | 2021-03-10 11:21 | Occupational Ther Daily Note ---
OT Current Status-Daily Note Subjective Pt alert, sitting in chair. Pt c/o of low water pressure while attempting to take shower. No c/o pain at this time. Mental Status/Objective Patient Orientation: Person, Place, Time, Situation Attachments: [place] Catheter, IV, Oxygen ADL-Treatment Therapy Code Descriptions/Definitions Functional [place] Measure: 0=Not Assessed/NA 4=Minimal Assistance 1=Total Assistance 5=Supervision or Setup 2=Maximal Assistance 6=Modified [place] 3=Moderate Assistance 7=Complete IndependenceSCALE: Activities may be completed with or without assistive devices. 6-Scgtxutatg-hvhznti completes the activity by him/herself with no assistance from a helper. 5-Set-up or Clean-up Assistance-helper sets up or cleans up; patient completes activity. [place] assists only prior to or following the activity. 4-Supervision or Touching Assistance-helper provides verbal cues and/or touching/steadying and/or contact guard assistance as patient completes activity. Assistance may be provided throughout the activity or intermittently. 3-Partial/Moderate Assistance-helper does LESS THAN HALF the effort. [place] lifts, holds or supports trunk or limbs, but provides less than half the effort. 2-Substantial/Maximal Assistance-helper does MORE THAN HALF the effort. [place] lifts or holds trunk or limbs and provides more than half the effort. 1-Yvtmqtpcl-vspkwa does ALL the effort. Patient does none of the effort to complete the activity. Or, the assistance of 2 or more helpers is required for the patient to complete the activity. If activity was not attempted, code reason: 7-Patient Refused. 9-Not Applicable-not attempted and the patient did not perform the activity b efore the current illness, exacerbation or injury. 10-Not Attempted due to Environmental Limitations-(lack of equipment, weather restraints, etc.). 88-Not Attempted due to Medical Conditions or Safety Concerns. Pt initially was frustrated and discussing issues with taking shower yesterday. SONAL attempted to explain to pt that using the shower chair had a cut out for easier access to cleanse buttocks/leatha area. Pt argued about ability to reach areas and that the shower chair was a potty chair which wasn't to be used in the shower. Pt became more agitated, PRUITT calmed pt down to find out the real issue that he had to work so hard to get into the shower then there was no water pressure to take a decent shower. After this pt was congenial and participated in therapy. Other Treatment Pt able to complete B UE strengthening with light resistance theraband for 6 UE exercises in all planes 1 set 10 reps of each. Skilled instruction given for correct technique and modification when necessary. Pt then required max A x2 for SPT from chair to bed. EOB to supine min A x2. After therapy, pt lying in bed with call light/phone. All needs met in room. OT Retirement Goals Retirement Goals Time Frame: Mar 20, 2021 Eating (QC): 6 Oral Hygiene (QC): 6 Shower/Bathe Self (QC): 4 Upper Body Dressing (QC): 5 Lower Body Dressing (QC): 4 On/Off Footwear (QC): 4 Additional Goals: 1-Demonstrate ADL Tasks, 2-Verbalize Understanding, 3- ImproveStrength/[place]enn 1=Demonstrate adherence to instructed precautions during ADL tasks. 2=Patient will verbalize/demonstrate understanding of assistive devices/modifications for ADL. 3=Patient will improve strength/tolerance for activity to enable patient to perform ADL's. OT Education/Plan Problem List/Assessment Assessment: Decreased Activ Tolerance, Decreased UE Strength, Dependent Transfers, Impaired Self-Care Skills Discharge Recommendations Plan/Recommendations: Continue POC Treatment Plan/Plan of Care Patient would benefit from OT for education, treatment and training to promote independence in ADL's, mobility, safety and/or upper extremity function for ADL's. Plan of Care: ADL Retraining, Functional Mobility, UE Funct Exercise/Act Treatment Duration: Mar 20, 2021 Frequency: 5 times per week Estimated Hrs Per Day: .25 hour per day Rehab Potential: Guarded Time/GCodes Start Time: 10:00 Stop Time: 10:30 Total Time Billed (hr/min): 30 Billed Treatment Time 1 visit-FA 1 (15 min) EX 1 (15 min) CIRO PIÑA Mar 10, 2021 11:21
[2021-03-10 12:00] VITALS: BP 143/66
[2021-03-10] MEDS ORDERED: WATER (STERILE) FOR INJECTION 0 ML ONE (12:12)
[2021-03-10] MEDS: PANTOPRAZOLE 40 MG (PROTONIX) TAB PO SCH (16:22)
[2021-03-10] MEDS: ENOXAPARIN 40 MG/0.4 ML (LOVENOX) SYR SC SCH (16:22)
[2021-03-10 16:27] VITALS: BP 128/74
[2021-03-10 19:58] VITALS: BP 123/59
[2021-03-10] MEDS: MELATONIN 3 MG TABLET PO SCH (20:06)
[2021-03-10 23:13] VITALS: BP 114/59
[2021-03-11 03:43] VITALS: BP 116/66
[2021-03-11] MEDS: CEFEPIME 1,000 MG/SWFI 10 ML IV PUSH IV SCH ×4 (05:51→12:45)
[2021-03-11] MEDS: LEVOTHYROXINE 125 MCG (LEVOTHROID) TABLET PO SCH (05:52)
[2021-03-11 06:08] LABS: HEMATOCRIT 31 % (40-54); HEMOGLOBIN 9.4 g/dL (13.3-17.7); MEAN CORPUSCULAR HEMOGLOBIN 27 pg (25-34); MEAN CORPUSCULAR HGB CONC 30 g/dL (32-36); MEAN CORPUSCULAR VOLUME 90 fL (80-99); PLATELET COUNT 171 10^3/uL (130-400); WHITE BLOOD COUNT 8.3 10^3/uL (4.3-11.0)
[2021-03-11 06:22] LABS: POTASSIUM 3.8 MMOL/L (3.6-5.0)
[2021-03-11 06:23] LABS: CALCIUM 9.1 MG/DL (8.5-10.1)
[2021-03-11 06:27] LABS: CREATININE SERUM 0.71 MG/DL (0.60-1.30)
[2021-03-11 07:40] VITALS: BP 157/77
[2021-03-11] MEDS: ASPIRIN 81 MG CHEW (CHILDREN'S ASA) PO SCH (08:54)
[2021-03-11] MEDS: PREGABALIN 150 MG (LYRICA) CAPSULE PO SCH ×2 (08:54→20:48)
[2021-03-11] MEDS: FAMOTIDINE 20 MG (PEPCID) TABLET PO SCH ×2 (08:54→20:48)
[2021-03-11] MEDS: LACTOBACILLUS ACIDOPHILUS (PROBIOTIC) CAPSULE PO SCH ×3 (08:54→18:53)
[2021-03-11] MEDS ORDERED: DOCUSATE SODIUM 100 MG (COLACE) CAP PO PRN (11:00)
--- NOTE | 2021-03-11 11:04 | Occupational Ther Daily Note ---
OT Current Status-Daily Note Subjective Pt alert, lying in bed. Pt agrees to therapy. No c/o pain. Physician rounding on pt during session. Mental Status/Objective Patient Orientation: Person, Place, Time, Situation ADL-Treatment Pt declined shower, adamant that he will not take a shower here now because he does not like the water pressure or showers here. Pt agrees to sponge bath, requests to complete in bed bath then get to chair. Pt able to complete all upper body and leatha area then assist with rest of body. Assist x2 to roll toward side to wash back side of body. Assist x2 for supine to sitting EOB. Assist x2 to stand, noticed BM smear on pad. Assist x2 to transfer to BSC. Pt sitting on BSC with call light. Nrsg aware of position. All needs met. Therapy Code Descriptions/Definitions Functional Gem Measure: 0=Not Assessed/NA 4=Minimal Assistance 1=Total Assistance 5=Supervision or Setup 2=Maximal Assistance 6=Modified Gem 3=Moderate Assistance 7=Complete IndependenceSCALE: Activities may be completed with or without assistive devices. 8-Ssemkcwyqn-awagdim completes the activity by him/herself with no assistance from a helper. 5-Set-up or Clean-up Assistance-helper sets up or cleans up; patient completes activity. [place] assists only prior to or following the activity. 4-Supervision or Touching Assistance-helper provides verbal cues and/or touching/steadying and/or contact guard assistance as patient completes act ivity. Assistance may be provided throughout the activity or intermittently. 3-Partial/Moderate Assistance-helper does LESS THAN HALF the effort. [place] lifts, holds or supports trunk or limbs, but provides less than half the effort. 2-Substantial/Maximal Assistance-helper does MORE THAN HALF the effort. [place] lifts or holds trunk or limbs and provides more than half the effort. 4-Ddjgzhyvc-fgdeqg does ALL the effort. Patient does none of the effort to complete the activity. Or, the assistance of 2 or more helpers is required for the patient to complete the activity. If activity was not attempted, code reason: 7-Patient Refused. 9-Not Applicable-not attempted and the patient did not perform the activity before the current illness, exacerbation or injury. 10-Not Attempted due to Environmental Limitations-(lack of equipment, weather restraints, etc.). 88-Not Attempted due to Medical Conditions or Safety Concerns. Bathing Location: L Arm, R Arm, Chest, Abdomen, Perineal Area Shower/Bathe Self (QC): 3 Toileting Hygiene (QC): 1 Toilet Transfer (QC): 1 OT Paver Operator Goals Paver Operator Goals Time Frame: Mar 20, 2021 Eating (QC): 6 Oral Hygiene (QC): 6 Shower/Bathe Self (QC): 4 Upper Body Dressing (QC): 5 Lower Body Dressing (QC): 4 On/Off Footwear (QC): 4 Additional Goals: 1-Demonstrate ADL Tasks, 2-Verbalize Understanding, 3- ImproveStrength/Glenn 1=Demonstrate adherence to instructed precautions during ADL tasks. 2=Patient will verbalize/demonstrate understanding of assistive devices/modifications for ADL. 3=Patient will improve strength/tolerance for activity to enable patient to perform ADL's. OT Education/Plan Problem List/Assessment Assessment: Decreased Activ Tolerance, Dependent Transfers, Impaired Self-Care Skills Discharge Recommendations Plan/Recommendations: Continue POC Treatment Plan/Plan of Care Patient would benefit from OT for education, treatment and training to promote independence in ADL's, mobility, safety and/or upper extremity function for ADL's. Plan of Care: ADL Retraining, Functional Mobility, UE Funct Exercise/Act Treatment Duration: Mar 20, 2021 Frequency: 5 times per week Estimated Hrs Per Day: .25 hour per day Rehab Potential: Guarded Time/GCodes Start Time: 10:05 Stop Time: 11:02 Total Time Billed (hr/min): 57 Billed Treatment Time 1 visit-ADL 4 (57 min) CIRO PIÑA Mar 11, 2021 11:04
[2021-03-11] MEDS: NYSTATIN CREAM (MYCOSTATIN) 30 GM TUBE TP SCH ×3 (11:41→20:49)
[2021-03-11 11:43] VITALS: BP 111/67
--- NOTE | 2021-03-11 13:21 | Progress Note - Hospitalist ---
Subjective HPI/CC On Admission Date Seen by Provider: Mar 11, 2021 Time Seen by Provider: 10:00 Subjective/Events-last exam Pt reports feeling better today. Just had a bath and about to get to the chair with OT. Disucssed plan for discharge with him and his daughter and their desire to go home. Focused Exam Time of Focused Exam: 12:39 Objective Exam Vital Signs Vital Signs Date Time Temp Pulse Resp B/P (MAP) Pulse Ox O2 Delivery O2 Flow Rate FiO2 03/11/21 11:43 36.8 91 18 111/67 (82) 94 Nasal Cannula 4.00 Capillary Refill : Greater Than 3 Seconds General Appearance: No Apparent Distress, Chronically ill, Obese Respiratory: Lungs Clear, No Respiratory Distress Cardiovascular: Regular Rate, Rhythm, Systolic Murmur Gastrointestinal: Normal Bowel Sounds, Non Tender, Soft Neurologic/Psychiatric: Alert, Oriented x3 Results/Procedures Lab Laboratory Tests 03/11/21 05:53 Patient resulted labs reviewed. Assessment/Plan Assessment and Plan Assess & Plan/Chief Complaint Sepsis due to pneumonia Acute on chronic respiratory failure with hypoxemia WBC, procalcitonin both improving Continue Cefepime, plan to DC with longer course of abx and follow up with pulm CT angio showed no signs of Pulmonary embolism Currently on 4lpm, stable overnight, baseline is 3lpm PT/OT Anemia Hgb stable Iron studies with iron deficiency, B12, folate normal Defer Infed for now due to recurrent infections Occult blood positive Recommended outpatient colonoscopy, he believes his last one was 5-10 years ago but last scope that I could find here was 2007 and was an EGD CAD HTN Aortic stenosis HLD Continue home meds as able Hypothyroidism BPH s/p SPT Continue home meds Was seen by Dr Khalil last month, vinod villalpando on 02/10 DVT Prophylaxis- Lovenox LIZANDRO LENTZ MD Mar 11, 2021 13:21
[2021-03-11 15:44] VITALS: BP 110/67
--- NOTE | 2021-03-11 15:52 | Physical Therapy Daily Note ---
PT Daily Note-Current Subjective Pt laying Supine in bed upon arrival. Pt is visiting w/daughter. Pt agrees to PT. Mental Status Patient Orientation: Person, Place, Situation Attachments: Oxygen Transfers SCALE: Activities may be completed with or without assistive devices. 3-Cdmdoiegkg-ddcxpbi completes the activity by him/herself with no assistance from a helper. 5-Set-up or Clean-up Assistance-helper sets up or cleans up; patient completes activity. [place] assists only prior to or following the activity. 4-Supervision or Touching Assistance-helper provides verbal cues and/or touching/steadying and/or contact guard assistance as patient completes activity. Assistance may be provided throughout the activity or intermittently. 3-Partial/Moderate Assistance-helper does LESS THAN HALF the effort. [place] lifts, holds or supports trunk or limbs, but provides less than half the effort. 2-Substantial/Maximal Assistance-helper does MORE THAN HALF the effort. [place] lifts or holds trunk or limbs and provides more than half the effort. 0-Oflzoydzt-nebstr does ALL the effort. Patient does none of the effort to complete the activity. Or, the assistance of 2 or more helpers is required for the patient to complete the activity. If activity was not attempted, code reason: 7-Patient Refused. 9-Not Applicable-not attempted and the patient did not perform the activity before the current illness, exacerbation or injury. 10-Not Attempted due to Environmental Limitations-(lack of equipment, weather restraints, etc.). 88-Not Attempted due to Medical Conditions or Safety Concerns. Lying to Sitting/Side of Bed(Q: 4 Sit to Stand (QC): 3 Weight Bearing Full Weight Bearing Full Weight Bearing Gait Training Does the Patient Walk?: Yes Distance: 8' Gait Persons Needed: 2 Gait Assistive Device: FWW Pt feels as though knee buckling by end of walk. Exercises Supine Ex: Ankle pumps, Quad Set, Glut sets, Heel Slides, Straight leg raise, Hip abd/add Supine Reps: 10 Treatments TF to EOB then stands. Pt walks approx. 4' then needs to turn back due to knees feeling like they will buckle. Pt returns to bed and is repositioned. Pt asks to complete Supine Ex for improved strength. Resting at end of tx with all needs met, call light in hand. Assessment Current Status: Good Progress Pt improving strength but still needs assistance for transfers and ambulation. PT Correction Goals Clinical Associate Goals PT Clinical Associate Goals Time Frame: Mar 21, 2021 Roll Left & Right (QC): 4 Sit to Lying (QC): 4 Lying-Sitting on Side/Bed(QC): 4 Sit to Stand (QC): 4 Chair/Jel-gn-Kzmii Xfer(QC): 4 Toilet Transfer (QC): 4 Walk 10 feet (QC): 4 PT Plan Problem List Problem List: Activity Tolerance, Functional Strength, Gait, Transfer Treatment/Plan Treatment Plan: Continue Plan of Care Treatment Plan: Bed Mobility, Education, Functional Activity Glenn, Functional Strength, Gait, Safety, Therapeutic Exercise, Transfers Treatment Duration: Mar 21, 2021 Frequency: 6 times per week Estimated Hrs Per Day: .5 hour per day Patient and/or Family Agrees t: Yes Time/GCodes Time In: 1430 Time Out: 1500 Total Billed Treatment Time: 30 Total Billed Treatment 1, GT (15m) & EX (15m) YENY VILLEDA THERMAL CUTTING MACHINE OPERATOR Mar 11, 2021 15:52
[2021-03-11] MEDS: ENOXAPARIN 40 MG/0.4 ML (LOVENOX) SYR SC SCH (16:02)
[2021-03-11] MEDS: PANTOPRAZOLE 40 MG (PROTONIX) TAB PO SCH ×2 (17:35→18:53)
[2021-03-11 19:46] VITALS: BP 138/77
[2021-03-11] MEDS: MELATONIN 3 MG TABLET PO SCH (23:31)
[2021-03-12 00:14] VITALS: BP 125/71
[2021-03-12 03:49] VITALS: BP 121/68
[2021-03-12 06:09] LABS: HEMATOCRIT 32 % (40-54); HEMOGLOBIN 9.7 g/dL (13.3-17.7); MEAN CORPUSCULAR HEMOGLOBIN 27 pg (25-34); MEAN CORPUSCULAR HGB CONC 30 g/dL (32-36); MEAN CORPUSCULAR VOLUME 90 fL (80-99); MEAN PLATELET VOLUME 10.8 fL (9.0-12.2); PLATELET COUNT 165 10^3/uL (130-400); WHITE BLOOD COUNT 7.6 10^3/uL (4.3-11.0)
[2021-03-12 06:22] LABS: CALCIUM 9.3 MG/DL (8.5-10.1)
[2021-03-12 06:26] LABS: CREATININE SERUM 0.65 MG/DL (0.60-1.30)
[2021-03-12] MEDS: LEVOTHYROXINE 125 MCG (LEVOTHROID) TABLET PO SCH (06:34)
[2021-03-12 07:50] VITALS: BP 155/71
[2021-03-12] MEDS: FAMOTIDINE 20 MG (PEPCID) TABLET PO SCH (08:33)
[2021-03-12] MEDS: NYSTATIN CREAM (MYCOSTATIN) 30 GM TUBE TP SCH ×2 (08:33→13:32)
[2021-03-12] MEDS: PREGABALIN 150 MG (LYRICA) CAPSULE PO SCH (08:33)
[2021-03-12] MEDS: ASPIRIN 81 MG CHEW (CHILDREN'S ASA) PO SCH (08:33)
[2021-03-12] MEDS: LACTOBACILLUS ACIDOPHILUS (PROBIOTIC) CAPSULE PO SCH ×2 (08:33→13:31)
--- NOTE | 2021-03-12 08:50 | Occupational Ther Daily Note ---
OT Current Status-Daily Note Subjective Pt alert, lying in bed. Pt agrees to therapy. No c/o pain. Pt anxious to go home. Mental Status/Objective Patient Orientation: Person, Place, Time, Situation Attachments: Anguiano Catheter, IV, Oxygen ADL-Treatment Therapy Code Descriptions/Definitions Functional [place] Measure: 0=Not Assessed/NA 4=Minimal Assistance 1=Total Assistance 5=Supervision or Setup 2=Maximal Assistance 6=Modified [place] 3=Moderate Assistance 7=Complete IndependenceSCALE: Activities may be completed with or without assistive devices. 3-Qnzzbjelsp-yyxmzka completes the activity by him/herself with no assistance from a helper. 5-Set-up or Clean-up Assistance-helper sets up or cleans up; patient completes activity. [place] assists only prior to or following the activity. 4-Supervision or Touching Assistance-helper provides verbal cues and/or touching/steadying and/or contact guard assistance as patient completes activity. Assistance may be provided throughout the activity or intermittently. 3-Partial/Moderate Assistance-helper does LESS THAN HALF the effort. [place] lifts, holds or supports trunk or limbs, but provides less than half the effort. 2-Substantial/Maximal Assistance-helper does MORE THAN HALF the effort. [place] lifts or holds trunk or limbs and provides more than half the effort. 2-Viocfrklv-sdnmqk does ALL the effort. Patient does none of the effort to complete the activity. Or, the assistance of 2 or more helpers is required for the patient to complete the activity. If activity was not attempted, code reason: 7-Patient Refused. 9-Not Applicable-not attempted and the patient did not perform the activity before the current illness, exacerbation or injury. 10-Not Attempted due to Environmental Limitations-(lack of equipment, weather restraints, etc.). 88-Not Attempted due to Medical Conditions or Safety Concerns. Other Treatment Supine to EOB independent. 2 person assisting with ambulation only for safety. Sit to stand CGA from higher surface. CGA for ambulation using FWW. No knee buckling noticed by therapists or pt. Pt stated only difficulty is backing to sit into chair. Pt completed 4 B UE exercises using light resistance theraband 10 reps in all planes. Pt independent with exercises. Pt stated that he ambulated that same distance that he will only need to do at home. After session, pt sitting in chair with call light/phone in reach. Daughter present in room. All needs met. OT Usp Goals Laborer Tin Can Goals Time Frame: Mar 20, 2021 Eating (QC): 6 Oral Hygiene (QC): 6 Shower/Bathe Self (QC): 4 Upper Body Dressing (QC): 5 Lower Body Dressing (QC): 4 On/Off Footwear (QC): 4 Additional Goals: 1-Demonstrate ADL Tasks, 2-Verbalize Understanding, 3-ImproveStrength/Glenn 1=Demonstrate adherence to instructed precautions during ADL tasks. 2=Patient will verbalize/demonstrate understanding of assistive devices/modifications for ADL. 3=Patient will improve strength/tolerance for activity to enable patient to perform ADL's. OT Education/Plan Problem List/Assessment Assessment: Decreased Activ Tolerance, Decreased UE Strength, Impaired Self- Care Skills Discharge Recommendations Plan/Recommendations: Continue POC Treatment Plan/Plan of Care Patient would benefit from OT for education, treatment and training to promote independence in ADL's, mobility, safety and/or upper extremity function for ADL's. Plan of Care: ADL Retraining, Functional Mobility, UE Funct Exercise/Act Treatment Duration: Mar 20, 2021 Frequency: 5 times per week Estimated Hrs Per Day: .25 hour per day Rehab Potential: Guarded Time/GCodes Start Time: 08:20 Stop Time: 08:40 Total Time Billed (hr/min): 20 Billed Treatment Time 1 visit-FA 1 (20 min) CIRO PIÑA Mar 12, 2021 08:49
--- NOTE | 2021-03-12 09:12 | Physical Therapy Daily Note ---
PT Daily Note-Current Subjective Patient agrees to PT. Family present Mental Status Patient Orientation: Normal For Age Attachments: Oxygen, Suprapubic Catheter Transfers SCALE: Activities may be completed with or without assistive devices. 6-Vkyupcmpgf-kfzqtvn completes the activity by him/herself with no assistance from a helper. 5-Set-up or Clean-up Assistance-helper sets up or cleans up; patient completes activity. [place] assists only prior to or following the activity. 4-Supervision or Touching Assistance-helper provides verbal cues and/or touching/steadying and/or contact guard assistance as patient completes activity. Assistance may be provided throughout the activity or intermittently. 3-Partial/Moderate Assistance-helper does LESS THAN HALF the effort. [place] lifts, holds or supports trunk or limbs, but provides less than half the effort. 2-Substantial/Maximal Assistance-helper does MORE THAN HALF the effort. [place] lifts or holds trunk or limbs and provides more than half the effort. 4-Umipauatq-bwjpwz does ALL the effort. Patient does none of the effort to complete the activity. Or, the assistance of 2 or more helpers is required for the patient to complete the activity. If activity was not attempted, code reason: 7-Patient Refused. 9-Not Applicable-not attempted and the patient did not perform the activity before the current illness, exacerbation or injury. 10-Not Attempted due to Environmental Limitations-(lack of equipment, weather restraints, etc.). 88-Not Attempted due to Medical Conditions or Safety Concerns. Lying to Sitting/Side of Bed(Q: 4 (SBA) Sit to Stand (QC): 4 (CGA) Chair/Jql-qb-Lbhis Xfer(QC): 4 (CGA) Weight Bearing Full Weight Bearing Full Weight Bearing Gait Training Does the Patient Walk?: Yes Distance: 20' Walk 10 feet (QC): 4 (CGA) Walk 50 ft with 2 Turns(QC): 9 Walk 150 ft (QC): 9 Gait Assistive Device: FWW safe and functional (patient report this is the distance I walk at home) Exercises Seated Therapy Exercises: Long arc quads, Hip flexion Seated Reps: 15 Assessment Patient up in recliner with needs met. Continue to increase activity as tolerated by patient. PT Machinist Goals Chcf Goals PT Machinist Goals Time Frame: Mar 21, 2021 Roll Left & Right (QC): 4 Sit to Lying (QC): 4 Lying-Sitting on Side/Bed(QC): 4 Sit to Stand (QC): 4 Chair/Oqb-ne-Yuvsd Xfer(QC): 4 Toilet Transfer (QC): 4 Walk 10 feet (QC): 4 PT Plan Treatment/Plan Treatment Plan: Continue Plan of Care Treatment Plan: Bed Mobility, Education, Functional Activity Glenn, Functional Strength, Gait, Safety, Therapeutic Exercise, Transfers Treatment Duration: Mar 21, 2021 Frequency: 6 times per week Estimated Hrs Per Day: .5 hour per day Patient and/or Family Agrees t: Yes Time/GCodes Time In: 818 Time Out: 834 Total Billed Treatment Time: 16 Total Billed Treatment 1 visit FA 16 min CLAY HOLGUIN PT Mar 12, 2021 09:12
[2021-03-12] MEDS ORDERED: CEFD300C3 PO (10:39)
[2021-03-12] MEDS ORDERED: LACT1CAP7 PO (10:39)
[2021-03-12] MEDS ORDERED: NYST15CR TP (10:39)
--- NOTE | 2021-03-12 10:41 | D/C HH Face to Face Order ---
D/C Face to Face Orders Instructions for Patient Via [facility], Patient Instructions/FollowUp: Please continue to take your medications as written. Please follow up with your primary care doctor to follow up this hospital stay. Physician to follow Patient: Dr Bach Discharge Diet for Home: Low Sodium Diet Patient Data-Allergies,Ht & Wt Patient Allergies: Coded Allergies: Sulfa (Sulfonamide Antibiotics) (Verified Allergy, Intermediate, RASH, CHILLS, 07/10/19) Height (Feet): 5 Height (Inches): 11.00 Weight (Pounds): 282 Weight (Ounces): 0.0 Home Health Need/Face to Face Date of Face to Face: Mar 12, 2021 Clinical Findings: Generalized weakness and fatigue I have seen Pt gsni-cn-sxek: Yes Discharged To: Home Diagnosis/Conditions: Pneumonia Patient is Homebound due to: Muscle weakness Homebound Status Due to the above stated illness, injury or surgical procedure (medical condition or diagnosis) and associated clinical findings, the patient is homebound because of his/her inability to leave home except with aid of a supportive device and/or person AND leaving the home requires a considerable and taxing effort or is medically contraindicated. Pt req the following assistanc: Aid of another person, Walker Home Health Nursing Orders Home Health Services Order: Nursing Services, Nurse Companion-Evaluate & Treat, Physical Therapy-Evaluate & Treat Therapy Orders Therapy Orders: OT (must have SN or PT order), Physical Therapy Therapy Specific Orders: Eval assistive deivces, Teach enviro modifications/safety, Gait training, Increase strength/endurance [facility] [place] I certify that this patient is under my care and that I, a nurse practitioner or a physician; a orthopedic physician assistant working with me, had a face to face encounter that - meets the physician face to face encounter requirements with this patient as dated. LIZANDRO LENTZ MD Mar 12, 2021 10:41
--- NOTE | 2021-03-12 10:42 | Discharge Summary ---
Diagnosis/Chief Complaint Date of Admission Mar 06, 2021 at 14:00 Date of Discharge Discharge Date: Mar 12, 2021 Primary Care Mirza Bach MD Discharge Diagnosis (1) Sepsis due to pneumonia Status: Acute (2) Acute on chronic respiratory failure with hypoxia Status: Acute (3) Urinary tract infection Status: Acute (4) Anemia Status: Acute Discharge Summary Discharge Physical Exam Allergies: Coded Allergies: Sulfa (Sulfonamide Antibiotics) (Verified Allergy, Intermediate, RASH, CHILLS, 07/10/19) Vitals & I&Os Vital Signs Date Time Temp Pulse Resp B/P (MAP) Pulse Ox O2 Delivery O2 Flow Rate FiO2 03/12/21 13:45 03/12/21 11:43 36.6 80 18 91 Nasal Cannula 4.00 General Appearance: No Apparent Distress, Chronically ill, Obese Respiratory: Lungs Clear, No Respiratory Distress Cardiovascular: Regular Rate, Rhythm, Systolic Murmur Neurologic/Psychiatric: Alert, Oriented x3 Hospital Course Km was admitted to the hospital due to acute hypoxic respiratory failure secondary to pneumonia. He has had multiple readmissions after very short stays at home for this. He was treated with broad-spectrum IV antibiotics and was able to be titrated down off of Vapotherm. He was stable on 3 to 4 L of oxygen for 2 to 3 days prior to discharge while he continued working with physical therapy for strengthening. He remained afebrile with no leukocytosis. He was discharged home at his request to complete a longer course of antibiotics. Home health was arranged. I discussed the case with Dr. Bach who is his primary care doctor who will follow him as an outpatient. Of note he was found to be mildly anemic and fecal occult blood testing was positive. It was recommended that he follow-up as an outpatient for this once respiratory issues have improved. Labs (last 24 hrs) Microbiology 03/08/21 MRSA Screen - Final, Complete MRSA not isolated 03/06/21 Blood Culture - Final, Complete No growth 03/06/21 Urine Culture - Final, Complete Pseudomonas putida Patient resulted labs reviewed. Pending Labs Discussion & Recommendations Discharge Planning: >30 minutes discharge planning Discharge Home Medications: Active Scripts Active Reported Acid Photography Instructor (FAMOTIDINE) (Famotidine) 20 Mg Tablet 20 Mg PO BID Cefdinir 300 Mg Capsule 300 Mg PO BID TAKES 03-12-2021 #20/ DAY SUPPLY Acidophilus-Pectin Capsule (Lactobacillus Acidophilus/Pect) 1 Each Capsule 2 Each PO TIDWM Nystatin 15 Gm Cream..g. 1 Appful TP TID Simethicone 80 Mg Tab.chew 80 Mg PO Q4H PRN Lanolin (Modified Lanolin) 40 Gm Cream..g. 1 Applic TP UD PRN Vitamin C (Ascorbate Calcium) 500 Mg Tablet 500 Mg PO DAILY Toviaz (Fesoterodine Fumarate) 4 Mg Tab.sr.24h 4 Mg PO DAILY Melatonin 10 Mg Tab.rapdis 10-20 Mg PO HS PRN Low Dose Aspirin EC (Aspirin) 81 Mg Tablet.dr 81 Mg PO DAILY Potassium Chloride 10 Meq Capsule.er 10 Meq PO DAILY Furosemide 40 Mg Tablet 40 Mg PO DAILY Senna-Plus Tablet (Sennosides/Docusate Sodium) 1 Each Tablet 2 Tab PO BID Nitrofurantoin (Nitrofurantoin Macrocrystal) 100 Mg Capsule 100 Mg PO 1700 W/DINNER Tramadol HCl 50 Mg Tablet 50 Mg PO Q6H PRN Azo Cranberry Softgel (Cranberry Extract/Vit C) 1 Each Capsule 1 Each PO BID Calcium (Calcium Carbonate) 500 Mg Tablet 500 Mg PO 1700 Synthroid (Levothyroxine Sodium) 200 Mcg Tablet 200 Mcg PO DAILY TAKES 200MCG +50MCG Vitamin B12 (Cyanocobalamin (Vitamin B-12)) 2,500 Mcg Tablet 2,500 Mcg PO DAILY Lyrica (Pregabalin) 150 Mg Capsule 150 Mg PO BID Glucosamine Chondroitin Tab (Gluc Beckham/Chondro Beckham A/Vit C/Mn) 1 Each Tablet 1 Tab PO DAILY Ruben Multi For Men Tablet (Mv-Mn/FA/Lycopene/Lut/Hb#178) 1 Each Tablet 2 Tab PO DAILY Saw [place]ford (Saw [place]ford Fruit) 450 Mg Capsule 2 Cap PO DAILY Fish Oil 1,000 mg Capsule ([place] 3 Polyunsat Fatty Acids) 1,000 Mg Cap 1,000 Mg PO DAILY Zinc 50 Mg Tablet 50 Mg PO DAILY Atorvastatin Calcium 40 Mg Tablet 40 Mg PO DAILY Synthroid (Levothyroxine Sodium) 50 Mcg Tablet 50 Mcg PO DAILY TAKES 200MCG +50MCG Metformin HCl ER (Metformin HCl) 1,000 Mg Tab.er.24 1,000 Mg PO BID WITH MEALS Pantoprazole Sodium 40 Mg Tablet.dr 40 Mg PO 1700 Instructions to patient/family Please see electronic discharge instructions given to patient. LIZANDRO LENTZ MD Mar 12, 2021 10:42
[2021-03-12 11:43] VITALS: BP 108/59
[2021-03-12] MEDS ORDERED: FAMO20TA5 PO (12:14)
[2021-03-12] MEDS ORDERED: SMT80CT PO (12:14)
--- NOTE | 2021-03-12 15:14 | CONSULTATION REPORT ---
DATE OF SERVICE: 03/12/2021 ATTENDING PHYSICIAN: Dr. Tse. SUMMARY: An 80-year-old white man known to me for many years with neurogenic bladder post suprapubic tube insertion, which is being changed every four weeks at the office, he was due to change it today when he was admitted to the hospital. About a week or more ago, he apparently had a traumatic changing of the catheter causing some bleeding, which subsided and this changed about a week ago. The bleeding has stopped and the urine is perfectly clear. The patient is going home today. IMPRESSION: Neurogenic bladder with suprapubic tube. PLAN: The patient will contact my office to come in three weeks for resuming changing the catheter every four weeks and he will keep regular appointments with me to follow up. CC: Dr. Delphine Tse - requested, unable to deliver. Job ID: [id number] DocumentID: [id number] Dictated Date: 03/12/2021 12:54:27 Process Analyst Date: 03/12/2021 15:13:23 Dictated By: FANG MCMILLAN MD
[2021-03-13] MEDS ORDERED: LACT1CAP7 PO (13:00)
[2021-03-13] MEDS ORDERED: CEFD300C3 PO (13:00)
[2021-03-13] MEDS ORDERED: FAMO20TA3 PO (13:00)
[2021-03-13] MEDS ORDERED: SIME80TA16 PO (13:00)
[2021-03-13] MEDS ORDERED: NYST15CR TP (13:00)
--- NOTE | 2021-03-13 14:23 | Physician Query Clarification ---
PQ-Link Infection to Dev/Proc Admission/Discharge Admission Date: Mar 06, 2021 at 14:00 Discharge Date: Mar 12, 2021 at 13:45 The medical record reflects the following clinical scenario: History/Risk Factors: History UTI's, neurogenic bladder Clinical Findings: UTI Treatment: Antibiotics Question: Can you specify if the UTI is due to/associated with suprapubic catheter? Please document a response in Progress Note or Discharge Summary. 1. Yes - UTI is due to/associated with suprapubic catheter. 2. No - UTI is not due to/associated with suprapubic catheter. 3. Other, with explanation of the clinical findings. 4. Clinically undetermined, no explanation for the clinical findings. PHYSICIAN RESPONSE Specify if infection: 1 Please remember a lack of response to the above will prompt a phone page by CDI/Coding staff. In responding to this query, please exercise your independent professional judgment. The purpose of this communication is to more accurately reflect the complexity of your patients condition. The fact that a question is asked does not imply that any particular answer is desired or expected. Thank you for your timely response to this clarification. Requestors name: [ ] Phone # [ ] THIS PHYSICIAN QUERY FORM IS A PERMANENT PART OF THE MEDICAL RECORD LAUREANO VAZQUEZ Mar 13, 2021 14:23 LIZANDRO LENTZ MD Mar 13, 2021 22:17
== END 2021-03-12 13:45 | disposition home health service (06) | DRG 871 ==
LOC: EDUNIT# 09:54 → ER 09:57 → CSD 14:00 → 4TH 03-11 03:35
PROVIDERS: ADMIT Internal Medicine; ATTEND Internal Medicine
DX: A41.9 Sepsis, unspecified organism (principal); J18.9 Pneumonia, unspecified organism; J96.21 Acute and chronic respiratory failure with hypoxia; T83.518A Infection and inflammatory reaction due to other urinary catheter, initial encounter; N39.0 Urinary tract infection, site not specified; R65.20 Severe sepsis without septic shock; D64.9 Anemia, unspecified; I25.10 Atherosclerotic heart disease of native coronary artery without angina pectoris; E78.00 Pure hypercholesterolemia, unspecified; I10 Essential (primary) hypertension; E03.9 Hypothyroidism, unspecified; I35.0 Nonrheumatic aortic (valve) stenosis; E11.40 Type 2 diabetes mellitus with diabetic neuropathy, unspecified; K21.9 Gastro-esophageal reflux disease without esophagitis; K59.09 Other constipation; N40.0 Benign prostatic hyperplasia without lower urinary tract symptoms; N31.9 Neuromuscular dysfunction of bladder, unspecified; G47.30 Sleep apnea, unspecified; B96.5 Pseudomonas (aeruginosa) (mallei) (pseudomallei) as the cause of diseases classified elsewhere; I25.2 Old myocardial infarction; Z88.2 Allergy status to sulfonamides; Z99.81 Dependence on supplemental oxygen; Z79.82 Long term (current) use of aspirin; Z79.899 Other long term (current) drug therapy; Z79.890 Hormone replacement therapy; Z79.84 Long term (current) use of oral hypoglycemic drugs; Z20.822 Contact with and (suspected) exposure to COVID-19; Z87.891 Personal history of nicotine dependence
CPT/HCPCS: 36415; 71045; 71046; 71275; 80048; 80053; 81000; 82274; 82607; 82728; 82746; 82805; 83010; 83540; 83550; 83605; 83615; 84145; 84484; 85007; 85025; 85027; 85379; 85610; 85730; 87040; 87077; 87081; 87088; 87186; 87636; 93005; 94660

== ENCOUNTER 2021-03-13 02:59 | Inpatient (IN) | payer MEDICARE, OTHER ==
[~2021-03-13] VITALS: Ht 180 cm; Wt 125.4 kg
[~2021-03-13 02:59] MED LIST changes: +FAMO20TA5 PO; +LACT1CAP7 PO; +NYST15CR TP; +SMT80CT PO; +[UNRECOGNIZED DRUG - CODE] TP
[2021-03-13] MEDS ORDERED: ACETAMINOPHEN 500 MG TAB (TYLENOL) PO PRN (03:15)
[2021-03-13] MEDS ORDERED: MEROPENEM 500 MG in WATER (STERILE) FOR INJECTION 10 ML IV ONE (03:15)
[2021-03-13] MEDS ORDERED: NS IV 1000 ML 1,000 ML IV SCH ×2 (03:15)
--- NOTE | 2021-03-13 03:21 | ED Respiratory ---
General Chief Complaint: Respiratory Problems Stated Complaint: SOB Source: patient, family, EMS Exam Limitations: no limitations History of Present Illness Date Seen by Provider: Mar 13, 2021 Time Seen by Provider: 03:00 Initial Comments This gentleman arrives to the ER by EMS from home with chief complaint that he was discharged just the day before less than 24 hours ago from the hospital for pneumonia UTI sepsis and the family members had checked on him and his oxygen saturations were in the 70s on 3 L. This was increased to 5 L which did not help but to bring him up to about 80%. EMS put him on 15 L by nonrebreather which brought him up to around 90% sats. Patient says he was sleeping and his family awoke him to let him know that his oxygen sats were low. He does not have a history of LILIAN that he is aware of. He does not wear CPAP or BiPAP to sleep. He was not oxygen dependent prior to his hospitalization for pneumonia. He quit smoking in 1995. He denies a history of COPD or asthma. He had negative test for COVID-19 on the first, 7 days ago. He has had no antipyretics in the past 24 hours. He denies any abdominal pain, chest pain, diarrhea. He has a pertinent history of diabetes, hypothyroidism, hyperlipidemia, GERD. Echocardiogram from previous visit demonstrates an EF of 55 to 60% with no congestive heart failure. Patient has a history of a suprapubic catheter in place with a recent admission to [place] for UTI. He was on Eliquis but this was held due to bleeding from the urethra. 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 Echocardiogram revealed a mild stenosis of the aortic valve. Primary care by Dr. Bach. Denies a history of coronary disease. The patient wishes to be a full code. Allergies and Home Medications Allergies Coded Allergies: Sulfa (Sulfonamide Antibiotics) (Verified Allergy, Intermediate, RASH, CHILLS, 07/10/19) Patient Home Medication List Home Medication List Reviewed: Yes Ascorbate Calcium (Vitamin C) 500 Mg Tablet, 500 MG PO DAILY, (Reported) Entered as Reported by: PABLO ESQUIVEL on 01/30/21 1200 Aspirin (Low Dose Aspirin EC) 81 Mg Tablet.dr, 81 MG PO DAILY, (Reported) Entered as Reported by: REILLY TRAN on 01/30/21 0222 Atorvastatin Calcium (Atorvastatin Calcium) 40 Mg Tablet, 40 MG PO DAILY, ( Reported) Entered as Reported by: DESTINY SOARES on 02/15/18 0920 Calcium Carbonate (Calcium) 500 Mg Tablet, 500 MG PO 1700, (Reported) Entered as Reported by: DESTINY SOARES on 05/14/19 1431 Cefdinir (Cefdinir) 300 Mg Capsule, 300 MG PO BID Prescribed by: LIZANDRO LENTZ on 03/12/21 1039 Cranberry Extract/Vit C (Azo Cranberry Softgel) 1 Each Capsule, 1 EACH PO BID, (Reported) Entered as Reported by: REILLY TRAN on 01/30/21 0128 Cyanocobalamin (Vitamin B-12) (Vitamin B12) 2,500 Mcg Tablet, 2,500 MCG PO DAILY, (Reported) Entered as Reported by: DESTINY SOARES on 05/14/19 1431 Famotidine (Famotidine) 20 Mg Tablet, 20 MG PO BID Prescribed by: LIZANDRO LENTZ on 03/12/21 1214 Fesoterodine Fumarate (Toviaz) 4 Mg Tab.sr.24h, 4 MG PO DAILY, (Reported) Entered as Reported by: PABLO ESQUIVEL on 01/30/21 1152 Furosemide (Furosemide) 40 Mg Tablet, 40 MG PO DAILY, (Reported) Entered as Reported by: REILLY TRAN on 01/30/21 0201 Gluc Beckham/Chondro Beckham A/Vit C/Mn (Glucosamine Chondroitin Tab) 1 Each Tablet, 1 TAB PO DAILY, (Reported) Entered as Reported by: DESTINY SOARES on 02/15/18 1421 Lactobacillus Acidophilus/Pect (Acidophilus-Pectin Capsule) 1 Each Capsule, 2 EACH PO TIDWM Prescribed by: LIZANDRO LENTZ on 03/12/21 1039 Levothyroxine Sodium (Synthroid) 50 Mcg Tablet, 50 MCG PO DAILY, (Reported) Entered as Reported by: DESTINY SOARES on 02/15/18 0920 Levothyroxine Sodium (Synthroid) 200 Mcg Tablet, 200 MCG PO DAILY, (Reported) Entered as Reported by: DESTINY SOARES on 05/14/19 1431 Melatonin (Melatonin) 10 Mg Tab.rapdis, 10-20 MG PO HS PRN for SLEEP, (Reported) Entered as Reported by: PABLO ESQUIVEL on 01/30/21 1152 Metformin HCl (Metformin HCl ER) 1,000 Mg Tab.er.24, 1,000 MG PO BID WITH MEALS, (Reported) Entered as Reported by: DESTINY SOARES on 02/15/18 0920 Modified Lanolin (Lanolin) 40 Gm Cream..g., 1 APPLIC TP UD PRN for YEAST, (Reported) Entered as Reported by: PABLO ESQUIVEL on 03/06/21 1600 Mv-Mn/FA/Lycopene/Lut/Hb#178 (Ruben Multi For Men Tablet) 1 Each Tablet, 2 TAB PO DAILY, (Reported) Entered as Reported by: DESTINY SOARES on 02/15/18 142 Nitrofurantoin Macrocrystal (Nitrofurantoin) 100 Mg Capsule, 100 MG PO 1700 W/DINNER, (Reported) Entered as Reported by: REILLY TRAN on 01/30/21 0140 Nystatin (Nystatin) 15 Gm Cream..g., 0 GM TP TID Prescribed by: LIZANDRO LENTZ on 03/12/21 1039 Trinity 3 Polyunsat Fatty Acids (Fish Oil 1,000 mg Capsule) 1,000 Mg Cap, 1,000 MG PO DAILY, (Reported) Entered as Reported by: DESTINY SOARES on 02/15/18 142 Pantoprazole Sodium (Pantoprazole Sodium) 40 Mg Tablet.dr, 40 MG PO 1700, (Reported) Entered as Reported by: DESTINY SOARES on 02/15/18 0920 Potassium Chloride (Potassium Chloride) 10 Meq Capsule.er, 10 MEQ PO DAILY, (Reported) Entered as Reported by: REILLY TRAN on 01/30/21 0203 Pregabalin (Lyrica) 150 Mg Capsule, 150 MG PO BID, (Reported) Entered as Reported by: LIOR GRANT on 01/16/19 1132 Saw Mccormick Fruit (Saw Mccormick) 450 Mg Capsule, 2 CAP PO DAILY, (Reported) Entered as Reported by: DESTINY SOARES on 02/15/18 1421 Sennosides/Docusate Sodium (Senna-Plus Tablet) 1 Each Tablet, 2 TAB PO BID, (Reported) Entered as Reported by: REILLY TRAN on 01/30/21 0149 Simethicone (Mi-Acid) 80 Mg Tab.chew, 80 MG PO Q4HR PRN for FLATUS Prescribed by: LIZANDRO LENTZ on 03/12/21 1214 Tramadol HCl (Tramadol HCl) 50 Mg Tablet, 50 MG PO Q6H PRN for PAIN-MODERATE (5-7), (Reported) Entered as Reported by: REILLY TRAN on 01/30/21 0138 Zinc (Zinc) 50 Mg Tablet, 50 MG PO DAILY, (Reported) Entered as Reported by: DESTINY SOARES on 02/15/18 1421 Review of Systems Review of Systems Constitutional: chills, fever, malaise EENTM: No ear discharge, No ear pain Respiratory: cough, phlegm, short of breath; No wheezing Cardiovascular: see HPI; No edema, No palpitations Gastrointestinal: No abdominal pain, No nausea, No vomiting Genitourinary: see HPI; No discharge, No dysuria Musculoskeletal: No back pain, No joint pain Psychiatric/Neurological: Denies Anxiety, Denies Depressed All Other Systems Reviewed Negative Unless Noted: Yes Past Ufkwgql-Awvwau-Iblvlp Hx Patient Social History Tobacco Use?: No Smoking Status: Former Smoker Use of E-Cig and/or Vaping dev: No Substance use?: No Alcohol Use?: No Immunizations Up To Date First/Initial COVID19 Vaccinat: 07/27 Second COVID19 Vaccination Luis: 07/27 Seasonal Allergies Seasonal Allergies: No Past Medical History Surgery/Hospitalization HX: Denies recent surgery. Two stents were placed in 1995. Surgeries: Yes (BACK, NECK, HERNIA, R TKR) Abdominal, Appendectomy, Gallbladder, Orthopedic Respiratory: Yes Pneumonia Currently Using CPAP: No Currently Using BIPAP: No Cardiac: Yes (CARDIAC STENTS) Coronary Artery Disease, High Cholesterol, Hypertension, Valvular Heart Disease Neurological: Yes (R LEG NERVE DAMAGE) Neuropathy Reproductive Disorders: No Sexually Transmitted Disease: No HIV/AIDS: No Genitourinary: Yes (incontience) Benign Prostatic Hyperpl Gastrointestinal: Yes Gastroesophageal Reflux, Chronic Constipation Musculoskeletal: Yes (osteoarthritis) Arthritis, Chronic Back Pain, Gout Endocrine: Yes Hypothyroidsim HEENT: Yes (READING GLASSES) Cataract Loss of Vision: Denies Hearing Impairment: Denies Cancer: No Psychosocial: No Integumentary: No Blood Disorders: No Adverse Reaction/Blood Tranf: No Family Medical History Alcoholism 19 FATHER Completed stroke 19 MOTHER Diabetes mellitus 19 MOTHER G8 SISTER FH: pancreatic cancer G8 BROTHER Physical Exam Vital Signs - First Documented Capillary Refill : Height: 5'11.00" Weight: 282lbs. 0.0oz. 127.592296rl; 34.87 BMI Method:Stated General Appearance: WD/WN, moderate distress Eyes: Bilateral Eye Normal Inspection, Bilateral Eye PERRL, Bilateral Eye EOMI HEENT: PERRL/EOMI; No pharynx normal (Dry oral mucosa) Neck: full range of motion, supple, normal inspection Respiratory: lungs clear, no accessory muscle use, respiratory distress, decreased breath sounds Cardiovascular: normal peripheral pulses, regular rate, rhythm, no edema Gastrointestinal: normal bowel sounds, non tender, soft Extremities: normal range of motion, non-tender, normal inspection, normal capillary refill Neurologic/Psychiatric: no motor/sensory deficits, alert, normal mood/affect, oriented x 3 Skin: normal color, warm/dry Focused Exam Lactate Level Lactic Acid Level Progress/Results/Core Measures Suspected Sepsis SIRS Temperature: Pulse: Respiratory Rate: Laboratory Tests 03/13/21 03:08: White Blood Count 14.8H Blood Pressure / Mean: Laboratory Tests 03/13/21 03:08: Creatinine 0.75, INR Comment 1.0, Platelet Count 201, Total Bilirubin 0.7 Results/Orders Lab Results Laboratory Tests Test 03/13/21 03:06 03/13/21 03:08 03/13/21 03:17 Range/Units Urine Color YELLOW Urine Clarity CLEAR Urine pH 6.0 5-9 Urine Specific [place] 1.020 1.016-1.022 Urine Protein TRACE H NEGATIVE Urine Glucose (UA) NEGATIVE NEGATIVE Urine Ketones 1+ H NEGATIVE Urine Nitrite NEGATIVE NEGATIVE Urine Bilirubin NEGATIVE NEGATIVE Urine Urobilinogen 1.0 < = 1.0 MG/DL Urine Leukocyte Esterase TRACE H NEGATIVE Urine RBC (Auto) 3+ H NEGATIVE Urine RBC 25-50 H /HPF Urine WBC 2-5 /HPF Urine Crystals NONE /LPF Urine Bacteria FEW H /HPF Urine Casts NONE /LPF Urine Mucus SMALL H /LPF Urine Culture Indicated CULTURE PENDING Influenza Type A (RT-PCR) Not Detected Not Detecte Influenza Type B (RT-PCR) Not Detected Not Detecte SARS-CoV-2 RNA (RT-PCR) Not Detected Not Detecte White Blood Count 14.8 H 4.3-11.0 10^3/uL Red Blood Count 3.92 L 4.30-5.52 10^6/uL Hemoglobin 10.8 L 13.3-17.7 g/dL Hematocrit 35 L 40-54 % Mean Corpuscular Volume 89 80-99 fL Mean Corpuscular Hemoglobin 28 25-34 pg Mean Corpuscular Hemoglobin Concent 31 L 32-36 g/dL Red Cell Distribution Width 17.0 H 10.0-14.5 % Platelet Count 201 130-400 10^3/uL Mean Platelet Volume 11.1 9.0-12.2 fL Immature Granulocyte % (Auto) 1 % Neutrophils (%) (Auto) 93 H 42-75 % Lymphocytes (%) (Auto) 2 L 12-44 % Monocytes (%) (Auto) 2 0-12 % Eosinophils (%) (Auto) 2 0-10 % Basophils (%) (Auto) 0 0-10 % Neutrophils # (Auto) 13.7 H 1.8-7.8 10^3/uL Lymphocytes # (Auto) 0.3 L 1.0-4.0 10^3/uL Monocytes # (Auto) 0.3 0.0-1.0 10^3/uL Eosinophils # (Auto) 0.3 0.0-0.3 10^3/uL Basophils # (Auto) 0.1 0.0-0.1 10^3/uL Immature Granulocyte # (Auto) 0.2 H 0.0-0.1 10^3/uL Neutrophils % (Manual) 83 % Lymphocytes % (Manual) 5 % Monocytes % (Manual) 2 % Band Neutrophils 10 % Polychromasia SLIGHT Hypochromasia SLIGHT Basophilic Stippling SLIGHT Microcytosis SLIGHT Prothrombin Time 13.6 12.2-14.7 SEC INR Comment 1.0 0.8-1.4 Activated Partial Thromboplast Time 40 H 24-35 SEC Sodium Level 139 135-145 MMOL/L Potassium Level 3.9 3.6-5.0 MMOL/L Chloride Level 102 98-107 MMOL/L Carbon Dioxide Level 25 21-32 MMOL/L Anion Gap 12 5-14 MMOL/L Blood Urea Nitrogen 13 7-18 MG/DL Creatinine 0.75 0.60-1.30 MG/DL Estimat Glomerular Filtration Rate 100 BUN/Creatinine Ratio 17 Glucose Level 115 H 70-105 MG/DL Calcium Level 9.4 8.5-10.1 MG/DL Corrected Calcium 10.2 H 8.5-10.1 MG/DL Total Bilirubin 0.7 0.1-1.0 MG/DL Aspartate Amino Transf (AST/SGOT) 19 5-34 U/L Alanine Aminotransferase (ALT/SGPT) 15 0-55 U/L Alkaline Phosphatase 60 40-136 U/L Troponin I 0.049 H <0.028 NG/ML Total Protein 7.1 6.4-8.2 GM/DL Albumin 3.0 L 3.2-4.5 GM/DL Blood Gas Puncture Site RRAD Blood Gas Patient Temperature 38.5 Arterial Blood pH 7.39 7.37-7.43 Arterial Blood Partial Pressure CO2 51 H 35-45 MMHG Arterial Blood Partial Pressure O2 73 L 79-93 MMHG Arterial Blood HCO3 30 H 23-27 MMOL/L Arterial Blood Total CO2 31.0 21.0-31.0 MMOL/L Arterial Blood Oxygen Saturation 92 L 94-100 % Arterial Blood Base Excess 5.0 H -2.5-2.5 MMOL/L Kamlesh Test YES-POS Blood Gas Ventilator Setting NO Blood Gas Inspired Oxygen 70% CPAP My Orders Orders - RISA BEST Cbc With Automated Diff (03/13/21 03:07) Comprehensive Metabolic Panel (03/13/21 03:07) Blood Culture (03/13/21 03:07) Sputum Culture (03/13/21 03:07) Urine Culture (03/13/21 03:07) Protime With Inr (03/13/21 03:07) Partial Thromboplastin Time (03/13/21 03:07) Chest 1 View, Ap/Pa Only (03/13/21 03:07) Acetaminophen Tablet (Tylenol Tablet) (03/13/21 03:15) Ed Iv/Invasive Line Start (03/13/21 03:07) Ed Iv/Invasive Line Start (03/13/21 03:07) Ekg Tracing (03/13/21 03:07) Troponin I (03/13/21 03:07) Vital Signs Adult Sepsis Patie Q15M (03/13/21 03:07) O2 (03/13/21 03:07) Remove Rings In Anticipation O (03/13/21 03:07) Lactic Acid Analyzer (03/13/21 03:07) Influenza A And B By Pcr (03/13/21 03:07) Ns Iv 1000 Ml (Sodium Chloride 0.9%) (03/13/21 03:15) Meropenem (Merrem 500 Mg) (03/13/21 03:15) Vancomycin Injection (Vancomycin Injecti (03/13/21 03:15) Ed Iv/Invasive Line Start (03/13/21 03:07) Ns Iv 1000 Ml (Sodium Chloride 0.9%) (03/13/21 03:15) Covid 19 Inhouse Test (03/13/21 03:07) Urinalysis (03/13/21 03:14) Arterial Blood Gas (03/13/21 03:19) Manual Differential (03/13/21 03:08) Arterial Blood Draw (03/13/21 ) Arterial Blood Gas (03/13/21 03:38) Medications Given in ED Current Medications Medications Dose Ordered Sig/Connor Route Start Time Stop Time Status Last Admin Dose Admin Acetaminophen 1,000 mg ONCE PRN PO 03/13/21 03:15 03/13/21 04:46 DC 03/13/21 04:46 1,000 MG Meropenem 500 mg/ Sterile Water 10 ml @ 200 mls/hr ONCE ONCE IV 03/13/21 03:15 03/13/21 03:18 DC 03/13/21 03:57 200 MLS/HR Vital Signs/I&O 03/13/21 03/13/21 03/13/21 03/13/21 03:01 03:01 03:01 03:31 Temp 38.9 Pulse 109 76 Resp 20 27 B/P (MAP) 116/61 (79) Pulse Ox 89 92 O2 Delivery Non Rebreather Non Rebreather Non Rebreather O2 Flow Rate 15.00 15.00 15.00 70.00 Capillary Refill : Progress Note #1: Time: 03:22 Progress Note Patient presents in respiratory distress. We converted him from a nonrebreather to CPAP at 7 cm water pressure and 70% FiO2 which is maintaining his oxygen saturations in the mid 90s. He is getting a septic work-up with an adjusted ideal body weight around 94 kg. 2 L of normal saline will be greater than 20 mL/kg. Since he has been on extended antibiotics we will put him on meropenem and vancomycin. If he does not tolerate the CPAP and he does not normally wear a mask we could always trial Vapotherm. He was barely maintaining 89 to 90% on 15 L by nasal cannula. He is alert and answering all questions appropriately. We did go ahead and test him for Covid and influenza for possible nosocomial viral pneumonia. Progress Note #2: Time: 04:01 Progress Note Updated the family, , 2 daughters with the patient's permission. Patient is a full code ECG Initial ECG Impression Date: Mar 13, 2021 Initial ECG Impression Time: 03:09 Initial ECG Rate: 113 Initial ECG Rhythm: Normal Sinus Initial ECG Intervals: QT (478) Initial ECG Impression: Normal, Nonspecific Changes Initial ECG Comparisson: Unchanged Comment Sinus tachycardia with borderline prolonged QTc interval. No clinically relevant ST changes. Diagnostic Imaging Diagonstic Imaging: Xray Plain Films/CT/US/NM/MRI: chest Comments Stable patchy bilateral infiltrates seen on 1 view chest x-ray. [facility], [place] NAME: DIANDRA VO [facility] REC#: [id number] PT STATUS: ADM IN : 1940 PHYSICIAN: RISA BEST MD ADMIT DATE: 03/13/21/ICU Draft Date of Exam:03/13/21 CHEST 1 VIEW, AP/PA ONLY EXAMINATION: Chest 1 view HISTORY: sepsis COMPARISON: 03/06/2021 FINDINGS: Heart size and pulmonary vasculature are stable. Increasing patchy interstitial and airspace opacities seen within the mid and lower lungs bilaterally. Trace pleural effusions. No pneumothorax. Degenerative changes of the thoracic spine. Osseous structures are otherwise intact. IMPRESSION: 1. Mildly increased patchy interstitial and airspace opacities throughout both lungs. Dictated on workstation # [id number] Dict: 03/13/21 0555 Trans: 03/13/21 0600 LAM [id number] Interpreted by: JESSICA JEWELL DO Electronically signed by: Reviewed: Reviewed by Me Departure Communication (Admissions) Time/Spoke to Admitting Phy: 04:05 Discussed the case with Dr. Bach and he agrees admit the patient to the ICU. Meropenem, vancomycin and CPAP. Time/Spoke to Consulting Phy: 04:10 Discussed the case with Shasha Blackmon: They are okay with antibiotic selection. They agree to consult. Impression Primary Impression: Pneumonia Qualified Codes: J18.9 - Pneumonia, unspecified organism Additional Impressions: Acute respiratory failure with hypoxemia Sepsis due to pneumonia Disposition: ADMITTED INPATIENT Condition: Stable Admissions Decision to Admit Reason: Admit from ER (General) Decision to Admit/Date: Mar 13, 2021 Time/Decision to Admit Time: 03:45 Departure-Patient Inst. Referrals: BRIDGETT BACH MD (PCP/Family) Primary Care Physician RISA BEST Mar 13, 2021 03:20
[2021-03-13 03:24] LABS: BASOPHILS # (AUTO) 0.1 10^3/uL (0.0-0.1); BASOPHILS % (AUTO) 0 % (0-10); EOSINOPHILS # (AUTO) 0.3 10^3/uL (0.0-0.3); EOSINOPHILS % (AUTO) 2 % (0-10); HEMATOCRIT 35 % (40-54); HEMOGLOBIN 10.8 g/dL (13.3-17.7); LYMPHOCYTES # (AUTO) 0.3 10^3/uL (1.0-4.0); LYMPHOCYTES % (AUTO) 2 % (12-44); MEAN CORPUSCULAR HEMOGLOBIN 28 pg (25-34); MEAN CORPUSCULAR HGB CONC 31 g/dL (32-36); MEAN CORPUSCULAR VOLUME 89 fL (80-99); MEAN PLATELET VOLUME 11.1 fL (9.0-12.2); MONOCYTES # (AUTO) 0.3 10^3/uL (0.0-1.0); MONOCYTES % (AUTO) 2 % (0-12); NEUTROPHILS # (AUTO) 13.7 10^3/uL (1.8-7.8); NEUTROPHILS % (AUTO) 93 % (42-75); PLATELET COUNT 201 10^3/uL (130-400); WHITE BLOOD COUNT 14.8 10^3/uL (4.3-11.0)
[2021-03-13 03:30] LABS: POTASSIUM 3.9 MMOL/L (3.6-5.0)
[2021-03-13 03:30] LABS: ABG OXYGEN SATURATION 92 % (94-100); ABG PCO2 51 MMHG (35-45); ABG PH 7.39 (7.37-7.43); ABG PO2 73 MMHG (79-93)
[2021-03-13 03:31] LABS: CALCIUM 9.4 MG/DL (8.5-10.1)
[2021-03-13 03:31] LABS: ALLENS TEST YES-POS; INSPIRED O2 70% CPAP; PATIENT TEMP 38.5; VENTILATOR NO
[2021-03-13 03:32] LABS: TOTAL PROTEIN 7.1 GM/DL (6.4-8.2)
[2021-03-13 03:34] LABS: BILIRUBIN,TOTAL 0.7 MG/DL (0.1-1.0)
[2021-03-13 03:35] LABS: BILIRUBIN,URINE NEGATIVE (NEGATIVE); CLARITY,URINE CLEAR; GLUCOSE, URINE (UA) NEGATIVE (NEGATIVE); KETONES,URINE 1+ (NEGATIVE); LEUKOCYTE ESTERASE ,URINE TRACE (NEGATIVE); NITRITE,URINE NEGATIVE (NEGATIVE); PROTEIN,URINE TRACE (NEGATIVE)
[2021-03-13 03:36] LABS: CREATININE SERUM 0.75 MG/DL (0.60-1.30); PROTHROMBIN TIME PATIENT 13.6 SEC (12.2-14.7)
[2021-03-13 03:42] LABS: COLOR,URINE YELLOW
[2021-03-13 03:44] LABS: BACTERIA,URINE FEW /HPF; RBC,URINE 25-50 /HPF
[2021-03-13] MEDS: VANCOMYCIN INJECTION 1,000 MG in NS (IVPB) 250 ML IV SCH ×2 (04:01→05:38)
[2021-03-13 04:08] LABS: BAND NEUTROPHILS 10 %; HYPOCHROMASIA SLIGHT; LYMPHOCYTES % (MANUAL) 5 %; MONOCYTES % (MANUAL) 2 %; NEUTROPHILS % (MANUAL) 83 %; POLYCHROMASIA SLIGHT
[2021-03-13 04:09] LABS: MICROCYTOSIS SLIGHT
[2021-03-13] MEDS ORDERED: ONDANSETRON 4 MG/2 ML (SDV) Z0FRAN IVP PRN (05:00)
[2021-03-13] MEDS ORDERED: IBUPROFEN 600 MG (MOTRIN) TAB PO PRN (05:00)
[2021-03-13 05:04] VITALS: BP 116/61
[2021-03-13] MEDS ORDERED: RT-ALBUTEROL HFA 8.5 GM INHALER IH PRN (05:15)
[2021-03-13] MEDS ORDERED: RT-ALBUTEROL HFA 8.5 GM INHALER IH SCH (06:00)
--- NOTE | 2021-03-13 06:00 | Diagnostic Imaging Report ---
EXAMINATION: Chest 1 view HISTORY: sepsis COMPARISON: 03/06/2021 FINDINGS: Heart size and pulmonary vasculature are stable. Increasing patchy interstitial and airspace opacities seen within the mid and lower lungs bilaterally. Trace pleural effusions. No pneumothorax. Degenerative changes of the thoracic spine. Osseous structures are otherwise intact. IMPRESSION: 1. Mildly increased patchy interstitial and airspace opacities throughout both lungs. Dictated by: Dictated on workstation # [id number]
[2021-03-13] MEDS ORDERED: morphine INJ 4 MG/ML 1 ML (VIAL/SYRINGE) IVP PRN (06:30)
[2021-03-13] MEDS ORDERED: meTOprolol 5 MG/5 ML (LOPRESSOR) VIAL ONE (06:45)
[2021-03-13] MEDS ORDERED: NITROGLYCERIN 0.4 MG SL TABS BTL 25'S SL PRN (06:45)
[2021-03-13] MEDS: NS W/KCL 20 MEQ/L 1,000 ML IV SCH ×3 (06:50→17:54)
[2021-03-13] MEDS: LEVOTHYROXINE 125 MCG (LEVOTHROID) TABLET PO SCH (06:50)
[2021-03-13] MEDS ORDERED: ASPIRIN 81 MG CHEW (CHILDREN'S ASA) PO ONE (07:00)
[2021-03-13] MEDS ORDERED: ASPIRIN 81 MG CHEW (CHILDREN'S ASA) ONE (07:01)
[2021-03-13] MEDS ORDERED: ENOXAPARIN 60 MG/0.6 ML (LOVENOX) SYR ONE (07:01)
[2021-03-13] MEDS: ENOXAPARIN 300 MG/3 ML (LOVENOX) MULTI-DOSE VIAL SQ SCH ×2 (07:06→18:18)
[2021-03-13] MEDS ORDERED: RT-ALBUTEROL SULF 2.5 MG/3 ML PRE-MIX VIAL ONE (07:32)
[2021-03-13] MEDS: RT-ALBUTEROL SULF 2.5 MG/3 ML PRE-MIX VIAL INH SCH ×5 (07:38→22:13)
--- NOTE | 2021-03-13 08:06 | Consultation-Cardiology ---
HPI-Cardiology Cardiology Consultation: Date of Consultation 03/13/21 Time Seen by a Provider: 08:30 Date of Admission 03-12-21 Attending Physician Mirza Bach MD Admitting Physician Mirza Bach MD Consulting Physician Josh Giraldo MD HPI: Chief Complaint: Chest pain Mr. Barbour is an 80 yr old male who has been admitted to ICU 7 with increasing SOB. He was found to be hypoxic at home by EMS. He reports this morning he woke up and was having chest pain mid-sternal which radiated across his chest; he rated it at an 8 on 1-10 pain scale. He reports it was an ache. He does not report any other symptoms with it. He reports he received morphine and the pain gradually resolved. He is currently not having any chest pain. He denies any n/v/d. He states he was recently released from [facility] where he was treated for a UTI and pnemonia. Review of Systems-Cardiology Review of Systems Constitutional: chills, fever, malaise Eyes: No vision change Ears/Nose/Throat: No epistaxis, No recent hearing loss Respiratory: As described under HPI Cardiovascular: As described under HPI Gastrointestinal: No constipation, No diarrhea, No nausea, No vomiting Genitourinary: No dysuria, No hematuria Musculoskeletal: no symptoms reported Skin: other (multiple abrasions to LE bilat); No rash on exposed areas, No ulcerations on exposed areas Psychiatric/Neurological: No anxiety, No depression, No seizure, No focal weakness, No syncope Hematologic: No bleeding abnormalities All Other Systems Reviewed Negative Unless Noted: Yes GLN-Xzoaxe-Aaeayz Hx Patient Social History Smoking Status: Former Smoker Former smoker/When Quit: Sep 10, 1995 2nd Hand Smoke Exposure: No Have you traveled recently?: No Alcohol Use?: No Immunizations Up To Date Date of Pneumonia Vaccine: Mar 31, 2019 Date of Influenza Vaccine: Mar 31, 2019 Past Medical History PMH As described under Assessment. Family Medical History Family Medical History: He reports his mother had a CVA. Family History: Alcoholism 19 FATHER Completed stroke 19 MOTHER Diabetes mellitus 19 MOTHER G8 SISTER FH: pancreatic cancer G8 BROTHER Allergies and Home Medications Allergies Coded Allergies: Sulfa (Sulfonamide Antibiotics) (Verified Allergy, Intermediate, RASH, CHILLS, 07/10/19) Patient Home Medication List Ascorbate Calcium (Vitamin C) 500 Mg Tablet, 500 MG PO DAILY, (Reported) Entered as Reported by: PABLO ESQUIVEL on 01/30/21 1200 Aspirin (Low Dose Aspirin EC) 81 Mg Tablet.dr, 81 MG PO DAILY, (Reported) Entered as Reported by: REILLY TRAN on 01/30/21 0222 Atorvastatin Calcium (Atorvastatin Calcium) 40 Mg Tablet, 40 MG PO DAILY, (Reported) Entered as Reported by: DESTINY SOARES on 02/15/18 0920 Calcium Carbonate (Calcium) 500 Mg Tablet, 500 MG PO 1700, (Reported) Entered as Reported by: DESTINY SOARES on 05/14/19 1431 Cefdinir (Cefdinir) 300 Mg Capsule, 300 MG PO BID Prescribed by: LIZANDRO LENTZ on 03/12/21 1039 Cranberry Extract/Vit C (Azo Cranberry Softgel) 1 Each Capsule, 1 EACH PO BID, (Reported) Entered as Reported by: REILLY TRAN on 01/30/21 0128 Cyanocobalamin (Vitamin B-12) (Vitamin B12) 2,500 Mcg Tablet, 2,500 MCG PO DAILY, (Reported) Entered as Reported by: DESTINY SOARES on 05/14/19 1431 Famotidine (Famotidine) 20 Mg Tablet, 20 MG PO BID Prescribed by: LIZANDRO LENTZ on 03/12/21 1214 Fesoterodine Fumarate (Toviaz) 4 Mg Tab.sr.24h, 4 MG PO DAILY, (Reported) Entered as Reported by: PABLO ESQUIVEL on 01/30/21 1152 Furosemide (Furosemide) 40 Mg Tablet, 40 MG PO DAILY, (Reported) Entered as Reported by: REILLY TRAN on 01/30/21 0201 Gluc Beckham/Chondro Beckham A/Vit C/Mn (Glucosamine Chondroitin Tab) 1 Each Tablet, 1 TAB PO DAILY, (Reported) Entered as Reported by: DESTINY SOARES on 02/15/18 1421 Lactobacillus Acidophilus/Pect (Acidophilus-Pectin Capsule) 1 Each Capsule, 2 EACH PO TIDWM Prescribed by: LIZANDRO LENTZ on 03/12/21 1039 Levothyroxine Sodium (Synthroid) 50 Mcg Tablet, 50 MCG PO DAILY, (Reported) Entered as Reported by: DESTINY SOARES on 02/15/18 0920 Levothyroxine Sodium (Synthroid) 200 Mcg Tablet, 200 MCG PO DAILY, (Reported) Entered as Reported by: DESTINY SOARES on 05/14/19 1431 Melatonin (Melatonin) 10 Mg Tab.rapdis, 10-20 MG PO HS PRN for SLEEP, (Reported) Entered as Reported by: PABLO ESQUIVEL on 01/30/21 1152 Metformin HCl (Metformin HCl ER) 1,000 Mg Tab.er.24, 1,000 MG PO BID WITH MEALS, (Reported) Entered as Reported by: DESTINY SOARES on 02/15/18 0920 Modified Lanolin (Lanolin) 40 Gm Cream..g., 1 APPLIC TP UD PRN for YEAST, (Reported) Entered as Reported by: PABLO ESQUIVEL on 03/06/21 1600 Mv-Mn/FA/Lycopene/Lut/Hb#178 (Ruben Multi For Men Tablet) 1 Each Tablet, 2 TAB PO DAILY, (Reported) Entered as Reported by: DESTINY SOARES on 02/15/18 1421 Nitrofurantoin Macrocrystal (Nitrofurantoin) 100 Mg Capsule, 100 MG PO 1700 W/DINNER, (Reported) Entered as Reported by: REILLY TRAN on 01/30/21 0140 Nystatin (Nystatin) 15 Gm Cream..g., 0 GM TP TID Prescribed by: LIZANDRO LENTZ on 03/12/21 1039 Gilliam 3 Polyunsat Fatty Acids (Fish Oil 1,000 mg Capsule) 1,000 Mg Cap, 1,000 MG PO DAILY, (Reported) Entered as Reported by: DESTINY SOARES on 02/15/18 1421 Pantoprazole Sodium (Pantoprazole Sodium) 40 Mg Tablet.dr, 40 MG PO 1700, (Reported) Entered as Reported by: DESTINY SOARES on 02/15/18 0920 Potassium Chloride (Potassium Chloride) 10 Meq Capsule.er, 10 MEQ PO DAILY, (Reported) Entered as Reported by: REILLY TRAN on 01/30/21 0203 Pregabalin (Lyrica) 150 Mg Capsule, 150 MG PO BID, (Reported) Entered as Reported by: LIOR GRANT on 01/16/19 1132 Saw [place] Fruit (Saw [place]) 450 Mg Capsule, 2 CAP PO DAILY, (Reported) Entered as Reported by: DESTINY SOARES on 02/15/18 1421 Sennosides/Docusate Sodium (Senna-Plus Tablet) 1 Each Tablet, 2 TAB PO BID, (Reported) Entered as Reported by: REILLY TRAN on 01/30/21 0149 Simethicone (Mi-Acid) 80 Mg Tab.chew, 80 MG PO Q4HR PRN for FLATUS Prescribed by: LIZANDRO LENTZ on 03/12/21 1214 Tramadol HCl (Tramadol HCl) 50 Mg Tablet, 50 MG PO Q6H PRN for PAIN-MODERATE (5- 7), (Reported) Entered as Reported by: REILLY TRAN on 01/30/21 0138 Zinc (Zinc) 50 Mg Tablet, 50 MG PO DAILY, (Reported) Entered as Reported by: DESTINY SOARES on 02/15/18 1421 Physical Exam-Cardiology Physical Exam Vital Signs/I&O 03/13/21 03/13/21 03/13/21 03/13/21 03:01 03:01 03:01 03:31 Temp 38.9 Pulse 109 76 Resp 20 27 B/P (MAP) 116/61 (79) Pulse Ox 89 92 O2 Delivery Non Rebreather Non Rebreather Non Rebreather O2 Flow Rate 15.00 15.00 15.00 70.00 03/13/21 03/13/21 03/13/21 03/13/21 04:50 05:04 05:06 05:13 Temp 38.9 36.9 38.1 Pulse 114 76 108 106 Resp 20 B/P (MAP) 118/66 102/67 Pulse Ox 94 92 O2 Delivery Non Rebreather Vapotherm O2 Flow Rate 15.00 25.00 70.00 FiO2 70 03/13/21 03/13/21 03/13/21 03/13/21 05:15 05:30 05:45 05:59 Pulse 106 105 104 Resp 12 15 13 B/P (MAP) 109/54 94/52 91/47 Pulse Ox 95 93 96 O2 Delivery Vapotherm Vapotherm Vapotherm Vapotherm O2 Flow Rate 25.00 25.00 25.00 25.00 70.00 70.00 70.00 FiO2 70 10/803/13/21 03/13/21 03/13/21 06:00 07:00 07:00 07:38 Pulse 108 116 90 Resp 25 13 B/P (MAP) 99/52 87/52 Pulse Ox 95 96 95 O2 Delivery Vapotherm Vapotherm Vapotherm O2 Flow Rate 25.00 25.00 30.00 70.00 70.00 FiO2 70 03/13/21 03/13/21 03/13/21 03/13/21 08:00 08:11 09:00 09:00 Temp 37.3 Pulse 92 Resp 14 B/P (MAP) 77/40 84/58 84/58 Pulse Ox 97 O2 Delivery Vapotherm O2 Flow Rate 30.00 60.00 03/13/21 09:00 Pulse 90 Resp 22 B/P (MAP) 80/45 Pulse Ox 97 O2 Delivery Vapotherm O2 Flow Rate 30.00 60.00 Capillary Refill : Less Than 3 Seconds Constitutional: AAO x 3, well-developed, well-nourished HEENT: PERRL, hearing is well preserved, oral hygience is good Neck: No carotid bruit; carotid pulses are 2 + bilaterally Respiratory: No accessory muscle use, No respiratory distress; chest expansion is symmetric, chest is bilaterally symmetric, other (coarse breath sounds) Cardiovascular: regular rate-rhythm; No JVD; S1 and S2, systolic murmur Gastrointestinal: No tender; soft, round, audible bowel sounds Extremities: no lower extremity edema bilateral Neurologic/Psychiatric: grossly intact (moves all extremities) Skin: other (multiple small healing abrasions to LE bilat) Data Review Labs Laboratory Tests 03/13/21 03:06: Urine Color YELLOW, Urine Clarity CLEAR, Urine pH 6.0, Urine Specific Brandon 1.020, Urine Protein TRACEH, Urine Glucose (UA) NEGATIVE, Urine Ketones 1+H, Urine Nitrite NEGATIVE, Urine Bilirubin NEGATIVE, Urine Urobilinogen 1.0, Urine Leukocyte Esterase TRACEH, Urine RBC (Auto) 3+H, Urine RBC 25-50H, Urine WBC 2- 5, Urine Crystals NONE, Urine Bacteria FEWH, Urine Casts NONE, Urine Mucus SMALLH, Urine Culture Indicated CULTURE PENDING, Influenza Type A (RT-PCR) Not Detected, Influenza Type B (RT-PCR) Not Detected, SARS-CoV-2 RNA (RT-PCR) Not Detected 03/13/21 03:08: White Blood Count 14.8H, Red Blood Count 3.92L, Hemoglobin 10.8L, Hematocrit 35L , Mean Corpuscular Volume 89, Mean Corpuscular Hemoglobin 28, Mean Corpuscular Hemoglobin Concent 31L, Red Cell Distribution Width 17.0H, Platelet Count 201, Mean Platelet Volume 11.1, Immature Granulocyte % (Auto) 1, Neutrophils (%) (Auto) 93H, Lymphocytes (%) (Auto) 2L, Monocytes (%) (Auto) 2, Eosinophils (%) (Auto) 2, Basophils (%) (Auto) 0, Neutrophils # (Auto) 13.7H, Lymphocytes # (Auto) 0.3L, Monocytes # (Auto) 0.3, Eosinophils # (Auto) 0.3, Basophils # (Auto) 0.1, Immature Granulocyte # (Auto) 0.2H, Neutrophils % (Manual) 83, Lymphocytes % (Manual) 5, Monocytes % (Manual) 2, Band Neutrophils 10, Polychromasia SLIGHT, Hypochromasia SLIGHT, Basophilic Stippling SLIGHT, Microcytosis SLIGHT, Prothrombin Time 13.6, INR Comment 1.0, Activated Partial Thromboplast Time 40H, D-Dimer 4.84H, Sodium Level 139, Potassium Level 3.9, Chloride Level 102, Carbon Dioxide Level 25, Anion Gap 12, Blood Urea Nitrogen 13, Creatinine 0.75, Estimat Glomerular Filtration Rate 100, BUN/Creatinine Ratio 17, Glucose Level 115H, Calcium Level 9.4, Corrected Calcium 10.2H, Total Bilirubin 0.7, Aspartate Amino Transf (AST/SGOT) 19, Alanine Aminotransferase (ALT/SGPT) 15, Alkaline Phosphatase 60, Troponin I 0.049H, Total Protein 7.1, Albumin 3.0L 03/13/21 03:17: Blood Gas Puncture Site RRAD, Blood Gas Patient Temperature 38.5, Arterial Blood pH 7.39, Arterial Blood Partial Pressure CO2 51H, Arterial Blood Partial P ressure O2 73L, Arterial Blood HCO3 30H, Arterial Blood Total CO2 31.0, Arterial Blood Oxygen Saturation 92L, Arterial Blood Base Excess 5.0H, Kamlesh Test YES- POS, Blood Gas Ventilator Setting NO, Blood Gas Inspired Oxygen 70% CPAP 03/13/21 03:47: Lactic Acid Level 1.59 03/13/21 08:41: White Blood Count 17.5H, Red Blood Count 3.21L, Hemoglobin 8.8L, Hematocrit 29L, Mean Corpuscular Volume 91, Mean Corpuscular Hemoglobin 27, Mean Corpuscular Hemoglobin Concent 30L, Red Cell Distribution Width 17.1H, Platelet Count 173, Mean Platelet Volume 11.9, Immature Granulocyte % (Auto) 1, Neutrophils (%) (Auto) 93H, Lymphocytes (%) (Auto) 3L, Monocytes (%) (Auto) 3, Eosinophils (%) (Auto) 0, Basophils (%) (Auto) 0, Neutrophils # (Auto) 16.3H, Lymphocytes # (Auto) 0.5L, Monocytes # (Auto) 0.5, Eosinophils # (Auto) 0.1, Basophils # (Auto) 0.1, Immature Granulocyte # (Auto) 0.1, Sodium Level 136, Potassium Level 4.1, Chloride Level 104, Carbon Dioxide Level 25, Anion Gap 7, Blood Urea Nitrogen 14, Creatinine 0.74, Estimat Glomerular Filtration Rate 101, BUN/Creatinine Ratio 19, Glucose Level 131H, Calcium Level 8.3L, Phosphorus Level 3.0, Magnesium Level 1.5L, Troponin I 0.807*H Radiology NAME: DIANDRA BARBOUR [facility] REC#: [id number] PT STATUS: ADM IN : 1940 PHYSICIAN: RISA BEST MD ADMIT DATE: 03/13/21/ICU Signed Date of Exam:03/13/21 CHEST 1 VIEW, AP/PA ONLY EXAMINATION: Chest 1 view HISTORY: sepsis COMPARISON: 03/06/2021 FINDINGS: Heart size and pulmonary vasculature are stable. Increasing patchy interstitial and airspace opacities seen within the mid and lower lungs bilaterally. Trace pleural effusions. No pneumothorax. Degenerative changes of the thoracic spine. Osseous structures are otherwise intact. IMPRESSION: 1. Mildly increased patchy interstitial and airspace opacities throughout both lungs. Dictated by: Dictated on workstation # [id number] Dict: 03/13/21 0555 Trans: 03/13/21 0648 LAM [id number] Interpreted by: JESSICA JEWELL DO Electronically signed by: JESSICA JEWELL DO 03/13/21 0648 A/P-Cardiology Assessment/Admission Diagnosis NSTEMI Chronic diastolic CHF CAD, s/p two cor stents in 1995 following ID, details unknown. MPI of 01/18/19: no ischemia or infarction, LVEF 91% Aortic stenosis, severe. - Echo of 01/19/19: LVEF 70-75%, concentric LVH, mod dil of LA, severe (area 1.1), RVSP 20 mmHg - Echo of 09/08/20: LVEF 55-60%, grade 1 hong dysfxn, AoV could not be adequately interrogated, PASP 35-40 mmHg - Echo 09/30/20: LVEF 60-65%, mod (valve area 1.3 sq cm, mean peak grad 56, mean grad 34), PASP 25-30 mmHg Suprapubic cystostomy Quit smoking in 1995 H/o hypertension DJD H/o hyperlipidemia LILIAN, non-compliant with CPAP Mild COPD on PFTs of Mar 2019 Carotid u/s of 04/19/19: mild bilateral carotid art disease without evidence of hemodynamic significance AAA screening scan of 04/19/19: no evidence of AAA Bilat TKR in 2018 Bilat leg swelling due to venous insuff, currently stable Discussion and Recomendations NSTEMI Hypotensive - give IVF Plan for cardiac cath today. Discussed the procedure, risks, benefits and potential complications of cardiac cath with possible ad hoc coronary intervention. Verbalizes understanding and provides consent. Will proceed later today or sooner if needed. Start DAPT Continue lovenox Start BB as BP allows Management of pneumonia is per medical services Monitor lab closely, further recs will be based on his hospital course We would like to thank medical services for this consult MILAGROS FONTANEZ Mar 13, 2021 08:06
[2021-03-13] MEDS ORDERED: NS (IVPB) 250 ML IV ONE (08:30)
--- NOTE | 2021-03-13 08:49 | History & Physical-Hospitalist ---
History of Present Illness HPI/Chief Complaint Patient is an 80-year-old male well-known to me from multiple admissions who presented to the emergency department due to short. He was discharged from the hospital less than 12 hours prior to presentation. He had been stable for many days afebrile, with normal labs on 3 to 4 L of oxygen. He requested discharge home yesterday and had good family support. He was home for roughly 12 hours when his family checked on him in the middle the night and he was hypoxic. EMS was summoned. He was brought to the emergency room required Vapotherm to keep his oxygen saturations up and was admitted to the ICU. He did have a fever at that time 38.9 and a white blood cell count of 14.8 up from 7 yesterday. He also has a mildly elevated troponin and is about to be evaluated by cardiology. He he says he is feeling better and breathing better. He is orienting well. He denies any noncompliance with his home oxygen or medications. Source: patient Date Seen 03/13/21 Time Seen by a Provider: 08:46 Attending Physician Mirza Bach MD PCP Mirza Bach MD Referring Physician Date of Admission Mar 13, 2021 at 03:45 Home Medications & Allergies Home Medications Reviewed patient Home Medication Reconciliation performed by pharmacy medication reconciliations carpet cleaning technician and/or nursing. Patients Allergies have been reviewed. Allergies Allergies Coded Allergies Sulfa (Sulfonamide Antibiotics) (Verified Allergy, Intermediate, RASH, CHILLS, 07/10/19) Past Shtjbjz-Dqhqcl-Siphgk Hx Patient Social History Marrital Status: Employed/Student: retired Tobacco Use?: No Smoking Status: Former Smoker Use of E-Cig and/or Vaping dev: No Substance use?: No Alcohol Use?: No Immunizations Up To Date Date of Influenza Vaccine: Mar 31, 2019 First/Initial COVID19 Vaccinat: 07/27 Second COVID19 Vaccination Luis: 07/27 Date of Pneumonia Vaccine: Mar 31, 2019 Seasonal Allergies Seasonal Allergies: No Current Status Communicates: Verbally Primary Language: Greek Preferred Spoken Language: Greek Is interpretation needed?: No Past Medical History Surgeries: Abdominal, Appendectomy, Gallbladder, Orthopedic Pneumonia Currently Using CPAP: No Currently Using BIPAP: No Coronary Artery Disease, High Cholesterol, Hypertension, Valvular Heart Disease Neuropathy Sexually Transmitted Disease: No HIV/AIDS: No Benign Prostatic Hyperpl Gastroesophageal Reflux, Chronic Constipation Arthritis, Chronic Back Pain, Gout Hypothyroidsim Cataract Loss of Vision: Denies Hearing Impairment: Denies Blood Disorders: No Adverse Reaction/Blood Tranf: No CAD, hypothyroidism, UTI's/BPH, has had supra-pubic catheter placed aortic stenosis, not clear how severe, I can not find an echo report, Family Medical History Alcoholism 19 FATHER Completed stroke 19 MOTHER Diabetes mellitus 19 MOTHER G8 SISTER FH: pancreatic cancer G8 BROTHER Review of Systems Constitutional: fever EENTM: no symptoms reported Respiratory: see HPI Cardiovascular: No chest pain, No palpitations Gastrointestinal: no symptoms reported Genitourinary: no symptoms reported Musculoskeletal: no symptoms reported Skin: no symptoms reported Psychiatric/Neurological: No Symptoms Reported Physical Exam Physical Exam Vital Signs Vital Signs - First Documented 03/13/21 05:04 FiO2 70 Capillary Refill : Less Than 3 Seconds Height, Weight, BMI Height: 5'11.00" Weight: 282lbs. 0.0oz. 127.014347ic; 37.68 BMI Method:Stated General Appearance: No Apparent Distress, Chronically ill, Obese Respiratory: Decreased Breath Sounds; No Rhonci, No Wheezing; Other (on vapotherm) Results Results/Procedures Labs Laboratory Tests 03/13/21 14:52 03/14/21 05:07 03/15/21 04:28 Patient resulted labs reviewed. Assessment/Plan Admission Diagnosis Acute on chronic respiratory failure Admission Status: Inpatient Order (span 2 midnights) Reason for Inpatient Admission: see below Assessment and Plan Acute on chronic hypoxic respiratory failure Sever sepsis due to PNA Continue vanc and merrem Await cultures TelePulm consulted, appreciate recs- Discussed with Dr Muniz Overall poor alf prognosis BP soft, may need pressors as duet o cardiac disease would not benefit from aggressive fluid resuscitation Will check a d-dimer but if needs cath will defer CTA until after as cardiac evaluation more urgent NSTEMI CAD HTN aoritc stenosis Mildly elevated troponin on arrival trend cardiology consulted Likely going to cath for evaluation echo ordered Hold antihypertensives due to soft BPs Hypothyroidism BPH s/p SPT Continue home meds when able DVT prophylaxis: LIZANDRO Osuna MD Mar 13, 2021 08:49
[2021-03-13 08:57] LABS: BASOPHILS # (AUTO) 0.1 10^3/uL (0.0-0.1); BASOPHILS % (AUTO) 0 % (0-10); EOSINOPHILS # (AUTO) 0.1 10^3/uL (0.0-0.3); EOSINOPHILS % (AUTO) 0 % (0-10); HEMATOCRIT 29 % (40-54); HEMOGLOBIN 8.8 g/dL (13.3-17.7); LYMPHOCYTES # (AUTO) 0.5 10^3/uL (1.0-4.0); LYMPHOCYTES % (AUTO) 3 % (12-44); MEAN CORPUSCULAR HEMOGLOBIN 27 pg (25-34); MEAN CORPUSCULAR HGB CONC 30 g/dL (32-36); MEAN CORPUSCULAR VOLUME 91 fL (80-99); MEAN PLATELET VOLUME 11.9 fL (9.0-12.2); MONOCYTES # (AUTO) 0.5 10^3/uL (0.0-1.0); MONOCYTES % (AUTO) 3 % (0-12); NEUTROPHILS # (AUTO) 16.3 10^3/uL (1.8-7.8); NEUTROPHILS % (AUTO) 93 % (42-75); PLATELET COUNT 173 10^3/uL (130-400); WHITE BLOOD COUNT 17.5 10^3/uL (4.3-11.0)
[2021-03-13] MEDS ORDERED: CLOPIDOGREL 75 MG (PLAVIX) TABLET PO ONE (09:00)
[2021-03-13] MEDS: NS IV 1000 ML 1,000 ML IV SCH ×3 (09:14→17:55)
[2021-03-13 09:16] LABS: POTASSIUM 4.1 MMOL/L (3.6-5.0)
[2021-03-13 09:17] LABS: CALCIUM 8.3 MG/DL (8.5-10.1)
[2021-03-13 09:22] LABS: CREATININE SERUM 0.74 MG/DL (0.60-1.30)
[2021-03-13 09:24] LABS: MAGNESIUM 1.5 MG/DL (1.6-2.4)
[2021-03-13] MEDS: PREGABALIN 150 MG (LYRICA) CAPSULE PO SCH ×2 (09:28→20:41)
[2021-03-13] MEDS: ASPIRIN 81 MG CHEW (CHILDREN'S ASA) PO SCH (09:28)
[2021-03-13] MEDS ORDERED: NS 100 ML (IVPB) BAG IV ONE (09:45)
[2021-03-13] MEDS ORDERED: MAGNESIUM 1 GM/100 ML IVPB 200 ML IV ONE (09:59)
[2021-03-13] MEDS: MAGNESIUM 1 GM/100 ML IVPB 100 ML IV SCH ×2 (10:01→10:55)
[2021-03-13] MEDS: MEROPENEM 500 MG/SWFI 10 ML IV PUSH IV SCH ×6 (10:02→22:01)
--- NOTE | 2021-03-13 10:07 | Tele-ICU Consult ---
History of Present Illness History of Present Illness Date Seen by Provider: Mar 13, 2021 Time Seen by Provider: 09:53 Date of Admission Allergies and Home Medications Allergies Coded Allergies: Sulfa (Sulfonamide Antibiotics) (Verified Allergy, Intermediate, RASH, CHILLS, 07/10/19) Home Medications Ascorbate Calcium 500 Mg Tablet, 500 MG PO DAILY, (Reported) Aspirin 81 Mg Tablet.dr, 81 MG PO DAILY, (Reported) Atorvastatin Calcium 40 Mg Tablet, 40 MG PO DAILY, (Reported) Calcium Carbonate 500 Mg Tablet, 500 MG PO 1700, (Reported) Cefdinir 300 Mg Capsule, 300 MG PO BID Prescribed by: LIZANDRO LENTZ on 03/12/21 1039 Cranberry Extract/Vit C 1 Each Capsule, 1 EACH PO BID, (Reported) Cyanocobalamin (Vitamin B-12) 2,500 Mcg Tablet, 2,500 MCG PO DAILY, (Reported) Famotidine 20 Mg Tablet, 20 MG PO BID Prescribed by: LIZANDRO LENTZ on 03/12/21 1214 Fesoterodine Fumarate 4 Mg Tab.sr.24h, 4 MG PO DAILY, (Reported) Furosemide 40 Mg Tablet, 40 MG PO DAILY, (Reported) Gluc Beckham/Chondro Beckham A/Vit C/Mn 1 Each Tablet, 1 TAB PO DAILY, (Reported) Lactobacillus Acidophilus/Pect 1 Each Capsule, 2 EACH PO TIDWM Prescribed by: LIZANDRO LENTZ on 03/12/21 1039 Levothyroxine Sodium 50 Mcg Tablet, 50 MCG PO DAILY, (Reported) TAKES 200MCG +50MCG Levothyroxine Sodium 200 Mcg Tablet, 200 MCG PO DAILY, (Reported) TAKES 200MCG +50MCG Melatonin 10 Mg Tab.rapdis, 10-20 MG PO HS PRN for SLEEP, (Reported) Metformin HCl 1,000 Mg Tab.er.24, 1,000 MG PO BID WITH MEALS, (Reported) Modified Lanolin 40 Gm Cream..g., 1 APPLIC TP UD PRN for YEAST, (Reported) Mv-Mn/FA/Lycopene/Lut/Hb#178 1 Each Tablet, 2 TAB PO DAILY, (Reported) Nitrofurantoin Macrocrystal 100 Mg Capsule, 100 MG PO 1700 W/DINNER, (Reported) Nystatin 15 Gm Cream..g., 0 GM TP TID Prescribed by: LIZANDRO LENTZ on 03/12/21 1039 [place] 3 Polyunsat Fatty Acids 1,000 Mg Cap, 1,000 MG PO DAILY, (Reported) Pantoprazole Sodium 40 Mg Tablet.dr, 40 MG PO 1700, (Reported) Potassium Chloride 10 Meq Capsule.er, 10 MEQ PO DAILY, (Reported) Pregabalin 150 Mg Capsule, 150 MG PO BID, (Reported) Saw [place] Fruit 450 Mg Capsule, 2 CAP PO DAILY, (Reported) Sennosides/Docusate Sodium 1 Each Tablet, 2 TAB PO BID, (Reported) Simethicone 80 Mg Tab.chew, 80 MG PO Q4HR PRN for FLATUS Prescribed by: LIZANDRO LENTZ on 03/12/21 1214 Tramadol HCl 50 Mg Tablet, 50 MG PO Q6H PRN for PAIN-MODERATE (5-7), (Reported) Zinc 50 Mg Tablet, 50 MG PO DAILY, (Reported) Past Medical/Social/Family Hx Patient Social History Tobacco Use?: No Smoking Status: Former Smoker Use of E-Cig and/or Vaping dev: No Substance use?: No Alcohol Use?: No Immunizations Up To Date Influenza Vaccine Up-to-Date: Yes; Up-to-Date First/Initial COVID19 Vaccinat: 07/27 Second COVID19 Vaccination Luis: 07/27 Date of Pneumonia Vaccine: Mar 31, 2019 Current Status Communicates: Verbally Primary Language: Montserratian Preferred Spoken Language: Montserratian Is interpretation needed?: No Past Medical History CAD, hypothyroidism, UTI's/BPH, has had supra-pubic catheter placed aortic stenosis, not clear how severe, I can not find an echo report, Review of Systems Constitutional: see HPI Sepsis Event Evaluation Height, Weight, BMI Height: 5'11.00" Weight: 282lbs. 0.0oz. [id number]; 37.68 BMI Method:Stated Exam Exam Patient acknowledged, consented, and participated in this virtual visit which was conducted using real time audio/video Vital Signs Date Time Temp Pulse Resp B/P (MAP) Pulse Ox O2 Delivery O2 Flow Rate FiO2 03/13/21 09:00 90 22 80/45 97 Vapotherm 30.00 60.00 03/13/21 09:00 84/58 03/13/21 09:00 84/58 03/13/21 08:11 37.3 03/13/21 08:00 92 14 77/40 97 Vapotherm 30.00 60.00 03/13/21 07:38 95 Vapotherm 30.00 70 03/13/21 07:00 90 03/13/21 07:00 116 13 87/52 96 Vapotherm 25.00 70.00 03/13/21 06:00 108 25 99/52 95 Vapotherm 25.00 70.00 03/13/21 05:59 Vapotherm 25.00 70 03/13/21 05:45 104 13 91/47 96 Vapotherm 25.00 70.00 03/13/21 05:30 105 15 94/52 93 Vapotherm 25.00 70.00 03/13/21 05:15 106 12 109/54 95 Vapotherm 25.00 70.00 03/13/21 05:13 38.1 106 102/67 Vapotherm 25.00 70.00 03/13/21 05:06 108 03/13/21 05:04 36.9 76 92 70 03/13/21 04:50 38.9 114 20 118/66 94 Non Rebreather 15.00 03/13/21 03:31 76 27 92 70.00 03/13/21 03:01 Non Rebreather 15.00 03/13/21 03:01 38.9 109 20 116/61 (79) 89 Non Rebreather 15.00 03/13/21 03:01 Non Rebreather 15.00 I & O 03/13/21 07:00 Intake Total 1310 ml Output Total 450 ml Balance 860 ml Height & Weight Height: 5'11.00" Weight: 282lbs. 0.0oz. 127.302133il; 37.68 BMI Method:Stated General Appearance: No Apparent Distress Capillary Refill: Less Than 3 Seconds Gastrointestinal: normal bowel sounds, non tender, soft Results Lab Laboratory Tests 03/13/21 03:08 03/13/21 08:41 Assessment/Plan Assessment/Plan (Tele-ICU Physician , consultation) Available chart/ vitals / labs / Images reviewed H&P is from ER notes Patient's information available about PMH, Shx, Fhx allergy reviewed in EMR. ROS as per chart and RN report Now in ICU, hypotensive Video assessment done using teleICU camera, rest of exam as per RN Discussed with RN. Consultants: cardiology Hospital course: 03/11 - released from [facility] where he was treated for a UTI and pn emonia 03/13 - ER to ICU with hypoxia and NSTEMI A/P NSTEMI, h/o CAD , - CP controlled with morphine , seen by cards - Plan for cardiac cath today. -lovenox and beta blockers initiated - Echo 09/30/20: LVEF 60-65%, mod , PASP 25-30 mmHg Hypotension / shock - cardiogenic vs septic vs both - received IVF , with severe hypoxia might need pressors unil cardiac status more clear Recent PNA - cxr with increased diffused infiltrates - ? fluid vs infection - given increased WBC will agree with ABX - follow - 02/13 - mohinder and arnie ( was d/c on Cefepim Acute on chronic respiratory failure - VT 30L 60 % Chronic respiratory failure with chronic hypoxemia- 3L o2 at home Anemia - stable BPH s/p SPT - UA negative m recent 03/06/21 Urine Culture -Pseudomonas putida -brock changed on 02/10 as per notes Lines : midline 03/13 (Central Line Necessity Reviewed) Brock: SPC OG: Nutrition: npo Analgesia: Anxiety/ delirium VTE Prophylaxis: lovenox full dose Stress Ulcer Prophylaxis: Glycemic Control: Plans in collaboration with bedside consultants and IM MDs. Discussed with RN to reach out if any questions or concerns A total of 33 minutes of critical care time was devoted to this patient today, required to treat and/or prevent further deterioration of critical care condition ( as above ) . RENAN NEVAREZ MD Mar 13, 2021 10:07
[2021-03-13] MEDS: NOREPINEPHRINE 8 MG/250 ML 250 ML IV SCH ×2 (10:48→20:41)
--- NOTE | 2021-03-13 10:52 | Consultation-Cardiology ---
HPI-Cardiology Cardiology Consultation: Date of Consultation 03/13/21 Time Seen by a Provider: 10:15 Date of Admission Attending Physician Mirza Bach MD Admitting Physician Mirza Bach MD Consulting Physician DONN THEODORE MD, MA, FACP, FACC, FSCAI, CCDS HPI: Chief Complaint: Chest pain Mr. Barbour is an 80 yr old male who has been admitted to ICU 7 with increasing SOB. He was found to be hypoxic at home by EMS. He reports this morning he woke up and was having chest pain mid-sternal which radiated across his chest; he rated it at an 8 on 1-10 pain scale. He reports it was an ache. He does not report any other symptoms with it. He reports he received morphine and the pain gradually resolved. He is currently not having any chest pain. He denies any n/v/d. He states he was recently released from [facility] where he was treated for a UTI and pnemonia. Review of Systems-Cardiology Review of Systems Constitutional: chills, fever, malaise Eyes: No vision change Ears/Nose/Throat: No epistaxis, No recent hearing loss Respiratory: As described under HPI Cardiovascular: As described under HPI Gastrointestinal: No constipation, No diarrhea, No nausea, No vomiting Genitourinary: No dysuria, No hematuria Musculoskeletal: no symptoms reported Skin: other (multiple abrasions to LE bilat); No rash on exposed areas, No ulcerations on exposed areas Psychiatric/Neurological: No anxiety, No depression, No seizure, No focal weakness, No syncope Hematologic: No bleeding abnormalities All Other Systems Reviewed Negative Unless Noted: Yes KSL-Knbyey-Jwgeos Hx Patient Social History Smoking Status: Former Smoker Former smoker/When Quit: Sep 10, 1995 2nd Hand Smoke Exposure: No Have you traveled recently?: No Alcohol Use?: No Immunizations Up To Date Date of Pneumonia Vaccine: Mar 31, 2019 Date of Influenza Vaccine: Mar 31, 2019 Past Medical History PMH As described under Assessment. Family Medical History Family Medical History: He reports his mother had a CVA. Family History: Alcoholism 19 FATHER Completed stroke 19 MOTHER Diabetes mellitus 19 MOTHER G8 SISTER FH: pancreatic cancer G8 BROTHER Allergies and Home Medications Allergies Coded Allergies: Sulfa (Sulfonamide Antibiotics) (Verified Allergy, Intermediate, RASH, CHILLS, 07/10/19) Patient Home Medication List Home Medication List Reviewed: Yes Ascorbate Calcium (Vitamin C) 500 Mg Tablet, 500 MG PO DAILY, (Reported) Entered as Reported by: PABLO ESQUIVEL on 01/30/21 1200 Aspirin (Low Dose Aspirin EC) 81 Mg Tablet.dr, 81 MG PO DAILY, (Reported) Entered as Reported by: REILLY TRAN on 01/30/21 0222 Atorvastatin Calcium (Atorvastatin Calcium) 40 Mg Tablet, 40 MG PO DAILY, (Reported) Entered as Reported by: DESTINY SOARES on 02/15/18 0920 Calcium Carbonate (Calcium) 500 Mg Tablet, 500 MG PO 1700, (Reported) Entered as Reported by: DESTINY SOARES on 05/14/19 1431 Cefdinir (Cefdinir) 300 Mg Capsule, 300 MG PO BID Prescribed by: LIZANDRO LENTZ on 03/12/21 1039 Cranberry Extract/Vit C (Azo Cranberry Softgel) 1 Each Capsule, 1 EACH PO BID, (Reported) Entered as Reported by: REILLY TRAN on 01/30/21 0128 Cyanocobalamin (Vitamin B-12) (Vitamin B12) 2,500 Mcg Tablet, 2,500 MCG PO DAILY, (Reported) Entered as Reported by: DESTINY SOARES on 05/14/19 1431 Famotidine (Famotidine) 20 Mg Tablet, 20 MG PO BID Prescribed by: LIZANDRO LENTZ on 03/12/21 1214 Fesoterodine Fumarate (Toviaz) 4 Mg Tab.sr.24h, 4 MG PO DAILY, (Reported) Entered as Reported by: PABLO ESQUIVEL on 01/30/21 1152 Furosemide (Furosemide) 40 Mg Tablet, 40 MG PO DAILY, (Reported) Entered as Reported by: REILLY TRAN on 01/30/21 0201 Gluc Beckham/Chondro Beckham A/Vit C/Mn (Glucosamine Chondroitin Tab) 1 Each Tablet, 1 TAB PO DAILY, (Reported) Entered as Reported by: DESTINY SOARES on 02/15/18 1421 Lactobacillus Acidophilus/Pect (Acidophilus-Pectin Capsule) 1 Each Capsule, 2 EACH PO TIDWM Prescribed by: LIZANDRO LENTZ on 03/12/21 1039 Levothyroxine Sodium (Synthroid) 50 Mcg Tablet, 50 MCG PO DAILY, (Reported) Entered as Reported by: DESTINY SOARES on 02/15/18 0920 Levothyroxine Sodium (Synthroid) 200 Mcg Tablet, 200 MCG PO DAILY, (Reported) Entered as Reported by: DESTINY SOARES on 05/14/19 1431 Melatonin (Melatonin) 10 Mg Tab.rapdis, 10-20 MG PO HS PRN for SLEEP, (Reported) Entered as Reported by: PABLO ESQUIVEL on 01/30/21 1152 Metformin HCl (Metformin HCl ER) 1,000 Mg Tab.er.24, 1,000 MG PO BID WITH MEALS, (Reported) Entered as Reported by: DESTINY SOARES on 02/15/18 0920 Modified Lanolin (Lanolin) 40 Gm Cream..g., 1 APPLIC TP UD PRN for YEAST, (Reported) Entered as Reported by: PABLO ESQUIVEL on 03/06/21 1600 Mv-Mn/FA/Lycopene/Lut/Hb#178 (Ruben Multi For Men Tablet) 1 Each Tablet, 2 TAB PO DAILY, (Reported) Entered as Reported by: DESTINY SOARES on 02/15/18 1421 Nitrofurantoin Macrocrystal (Nitrofurantoin) 100 Mg Capsule, 100 MG PO 1700 W/DINNER, (Reported) Entered as Reported by: REILLY TRAN on 01/30/21 0140 Nystatin (Nystatin) 15 Gm Cream..g., 0 GM TP TID Prescribed by: LIZANDRO LENTZ on 03/12/21 1039 [place] 3 Polyunsat Fatty Acids (Fish Oil 1,000 mg Capsule) 1,000 Mg Cap, 1,000 MG PO DAILY, (Reported) Entered as Reported by: DESTINY SOARES on 02/15/18 1421 Pantoprazole Sodium (Pantoprazole Sodium) 40 Mg Tablet.dr, 40 MG PO 1700, (Reported) Entered as Reported by: DESTINY SOARES on 02/15/18 0920 Potassium Chloride (Potassium Chloride) 10 Meq Capsule.er, 10 MEQ PO DAILY, (Reported) Entered as Reported by: REILLY TRAN on 01/30/21 0203 Pregabalin (Lyrica) 150 Mg Capsule, 150 MG PO BID, (Reported) Entered as Reported by: LIOR GRANT on 01/16/19 1132 Saw [place] Fruit (Saw Weare) 450 Mg Capsule, 2 CAP PO DAILY, (Reported) Entered as Reported by: DESTINY SOARES on 02/15/18 1421 Sennosides/Docusate Sodium (Senna-Plus Tablet) 1 Each Tablet, 2 TAB PO BID, (Reported) Entered as Reported by: REILLY TRAN on 01/30/21 0149 Simethicone (Mi-Acid) 80 Mg Tab.chew, 80 MG PO Q4HR PRN for FLATUS Prescribed by: LIZANDRO LENTZ on 03/12/21 1214 Tramadol HCl (Tramadol HCl) 50 Mg Tablet, 50 MG PO Q6H PRN for PAIN-MODERATE (5- 7), (Reported) Entered as Reported by: REILLY TRAN on 01/30/21 0138 Zinc (Zinc) 50 Mg Tablet, 50 MG PO DAILY, (Reported) Entered as Reported by: DESTINY SOARES on 02/15/18 1421 Physical Exam-Cardiology Physical Exam Vital Signs/I&O 03/13/21 03/13/21 03/13/21 03/13/21 03:01 03:01 03:01 03:31 Temp 38.9 Pulse 109 76 Resp 20 27 B/P (MAP) 116/61 (79) Pulse Ox 89 92 O2 Delivery Non Rebreather Non Rebreather Non Rebreather O2 Flow Rate 15.00 15.00 15.00 70.00 03/13/21 03/13/21 03/13/21 03/13/21 04:50 05:04 05:06 05:13 Temp 38.9 36.9 38.1 Pulse 114 76 108 106 Resp 20 B/P (MAP) 118/66 102/67 Pulse Ox 94 92 O2 Delivery Non Rebreather Vapotherm O2 Flow Rate 15.00 25.00 70.00 FiO2 70 03/13/21 03/13/21 03/13/21 03/13/21 05:15 05:30 05:45 05:59 Pulse 106 105 104 Resp 12 15 13 B/P (MAP) 109/54 94/52 91/47 Pulse Ox 95 93 96 O2 Delivery Vapotherm Vapotherm Vapotherm Vapotherm O2 Flow Rate 25.00 25.00 25.00 25.00 70.00 70.00 70.00 FiO2 70 03/13/21 03/13/21 03/13/21 03/13/21 06:00 07:00 07:00 07:38 Pulse 108 116 90 Resp 25 13 B/P (MAP) 99/52 87/52 Pulse Ox 95 96 95 O2 Delivery Vapotherm Vapotherm Vapotherm O2 Flow Rate 25.00 25.00 30.00 70.00 70.00 FiO2 70 03/13/21 03/13/21 03/13/21 03/13/21 08:00 08:11 09:00 09:00 Temp 37.3 Pulse 92 Resp 14 B/P (MAP) 77/40 84/58 84/58 Pulse Ox 97 O2 Delivery Vapotherm O2 Flow Rate 30.00 60.00 03/13/21 03/13/21 09:00 10:00 Pulse 90 86 Resp 22 13 B/P (MAP) 80/45 98/57 Pulse Ox 97 99 O2 Delivery Vapotherm Vapotherm O2 Flow Rate 30.00 30.00 60.00 60.00 Capillary Refill : Less Than 3 Seconds Constitutional: AAO x 3, well-developed, well-nourished HEENT: PERRL, hearing is well preserved, oral hygience is good Neck: No carotid bruit; carotid pulses are 2 + bilaterally Respiratory: No accessory muscle use, No respiratory distress; chest expansion is symmetric, chest is bilaterally symmetric, other (coarse breath sounds) Cardiovascular: regular rate-rhythm; No JVD; S1 and S2, systolic murmur Gastrointestinal: No tender; soft, round, audible bowel sounds Extremities: no lower extremity edema bilateral Neurologic/Psychiatric: grossly intact (moves all extremities) Skin: other (multiple small healing abrasions to LE bilat) Data Review Labs Laboratory Tests 03/13/21 03:06: Urine Color YELLOW, Urine Clarity CLEAR, Urine pH 6.0, Urine Specific [place] 1.020, Urine Protein TRACEH, Urine Glucose (UA) NEGATIVE, Urine Ketones 1+H, Urine Nitrite NEGATIVE, Urine Bilirubin NEGATIVE, Urine Urobilinogen 1.0, Urine Leukocyte Esterase TRACEH, Urine RBC (Auto) 3+H, Urine RBC 25-50H, Urine WBC 2- 5, Urine Crystals NONE, Urine Bacteria FEWH, Urine Casts NONE, Urine Mucus SMALLH, Urine Culture Indicated CULTURE PENDING, Influenza Type A (RT-PCR) Not Detected, Influenza Type B (RT-PCR) Not Detected, SARS-CoV-2 RNA (RT-PCR) Not Detected 03/13/21 03:08: White Blood Count 14.8H, Red Blood Count 3.92L, Hemoglobin 10.8L, Hematocrit 35L , Mean Corpuscular Volume 89, Mean Corpuscular Hemoglobin 28, Mean Corpuscular Hemoglobin Concent 31L, Red Cell Distribution Width 17.0H, Platelet Count 201, Mean Platelet Volume 11.1, Immature Granulocyte % (Auto) 1, Neutrophils (%) (Auto) 93H, Lymphocytes (%) (Auto) 2L, Monocytes (%) (Auto) 2, Eosinophils (%) (Auto) 2, Basophils (%) (Auto) 0, Neutrophils # (Auto) 13.7H, Lymphocytes # (Auto) 0.3L, Monocytes # (Auto) 0.3, Eosinophils # (Auto) 0.3, Basophils # (Auto) 0.1, Immature Granulocyte # (Auto) 0.2H, Neutrophils % (Manual) 83, Lymphocytes % (Manual) 5, Monocytes % (Manual) 2, Band Neutrophils 10, Polychromasia SLIGHT, Hypochromasia SLIGHT, Basophilic Stippling SLIGHT, Microcytosis SLIGHT, Prothrombin Time 13.6, INR Comment 1.0, Activated Partial Thromboplast Time 40H, D-Dimer 4.84H, Sodium Level 139, Potassium Level 3.9, Chloride Level 102, Carbon Dioxide Level 25, Anion Gap 12, Blood Urea Nitrogen 13, Creatinine 0.75, Estimat Glomerular Filtration Rate 100, BUN/Creatinine Ratio 17, Glucose Level 115H, Calcium Level 9.4, Corrected Calcium 10.2H, Total Bilirubin 0.7, Aspartate Amino Transf (AST/SGOT) 19, Alanine Aminotransferase (ALT/SGPT) 15, Alkaline Phosphatase 60, Troponin I 0.049H, Total Protein 7.1, Albumin 3.0L 03/13/21 03:17: Blood Gas Puncture Site RRAD, Blood Gas Patient Temperature 38.5, Arterial Blood pH 7.39, Arterial Blood Partial Pressure CO2 51H, Arterial Blood Partial Pressure O2 73L, Arterial Blood HCO3 30H, Arterial Blood Total CO2 31.0, Arterial Blood Oxygen Saturation 92L, Arterial Blood Base Excess 5.0H, Kamlesh Test YES-POS, Blood Gas Ventilator Setting NO, Blood Gas Inspired Oxygen 70% CPAP 03/13/21 03:47: Lactic Acid Level 1.59 03/13/21 08:41: White Blood Count 17.5H, Red Blood Count 3.21L, Hemoglobin 8.8L, Hematocrit 29L, Mean Corpuscular Volume 91, Mean Corpuscular Hemoglobin 27, Mean Corpuscular Hemoglobin Concent 30L, Red Cell Distribution Width 17.1H, Platelet Count 173, Mean Platelet Volume 11.9, Immature Granulocyte % (Auto) 1, Neutrophils (%) (Auto) 93H, Lymphocytes (%) (Auto) 3L, Monocytes (%) (Auto) 3, Eosinophils (%) (Auto) 0, Basophils (%) (Auto) 0, Neutrophils # (Auto) 16.3H, Lymphocytes # (Auto) 0.5L, Monocytes # (Auto) 0.5, Eosinophils # (Auto) 0.1, Basophils # (Auto) 0.1, Immature Granulocyte # (Auto) 0.1, Sodium Level 136, Potassium Level 4.1, Chloride Level 104, Carbon Dioxide Level 25, Anion Gap 7, Blood Urea Nitrogen 14, Creatinine 0.74, Estimat Glomerular Filtration Rate 101, BUN/Creatinine Ratio 19, Glucose Level 131H, Calcium Level 8.3L, Phosphorus Level 3.0, Magnesium Level 1.5L, Troponin I 0.807*H A/P-Cardiology Assessment/Admission Diagnosis Acute on chronic resp failure and pneumonia NSTEMI Chronic diastolic CHF CAD, s/p two cor stents in 1995 following [place], details unknown. MPI of 01/18/19: no ischemia or infarction, LVEF 91% Aortic stenosis, severe. - Echo of 01/19/19: LVEF 70-75%, concentric LVH, mod dil of LA, severe (area 1.1), RVSP 20 mmHg - Echo of 09/08/20: LVEF 55-60%, grade 1 hong dysfxn, AoV could not be adequately interrogated, PASP 35-40 mmHg - Echo 09/30/20: LVEF 60-65%, mod (valve area 1.3 sq cm, mean peak grad 56, mean grad 34), PASP 25-30 mmHg Suprapubic cystostomy Quit smoking in 1995 H/o hypertension DJD H/o hyperlipidemia LILIAN, non-compliant with CPAP Mild COPD on PFTs of Mar 2019 Carotid u/s of 04/19/19: mild bilateral carotid art disease without evidence of hemodynamic significance AAA screening scan of 04/19/19: no evidence of AAA Bilat TKR in 2019 Bilat leg swelling due to venous insuff, currently stable Discussion and Recomendations Hypotensive - give IVF NSTEMI: Plan for cardiac cath today. Discussed the procedure, risks, benefits and potential complications of cardiac cath with possible ad hoc coronary intervention. Verbalizes understanding and provides consent. Will proceed later today or sooner if needed. Start DAPT Continue lovenox Start BB as BP allows Management of pneumonia and resp failure is per medical services Monitor lab closely, further recs will be based on his hospital course We would like to thank medical services for this consult DONN THEODORE MD FACP FAC CCDS Mar 13, 2021 10:52
[2021-03-13] MEDS ORDERED: meTOprolol 5 MG/5 ML (LOPRESSOR) VIAL IV SCH (12:00)
[2021-03-13] MEDS ORDERED: FAMO20TA3 PO (13:00)
[2021-03-13] MEDS ORDERED: CEFD300C3 PO (13:00)
[2021-03-13] MEDS ORDERED: SIME80TA16 PO (13:00)
[2021-03-13] MEDS ORDERED: NYST15CR TP (13:00)
[2021-03-13] MEDS ORDERED: LACT1CAP7 PO (13:00)
[2021-03-13] MEDS ORDERED: MIDAZOLAM 5 MG/5 ML (VERSED) VIAL ONE (13:55)
[2021-03-13] MEDS ORDERED: fentaNYL INJ 100 MCG/2 ML AMP ONE (13:55)
[2021-03-13] MEDS ORDERED: HEParin (CATH LAB) 2,000 ML IV ONE (13:55)
[2021-03-13] MEDS ORDERED: LIDOCAINE 1% INJ 20 ML 20 ML VIAL ONE (13:55)
[2021-03-13] MEDS ORDERED: NS IV 1000 ML 1,000 ML ONE (13:55)
[2021-03-13 14:57] LABS: HEMATOCRIT 32 % (40-54); HEMOGLOBIN 9.7 g/dL (13.3-17.7); MEAN CORPUSCULAR HEMOGLOBIN 28 pg (25-34); MEAN CORPUSCULAR HGB CONC 30 g/dL (32-36); MEAN CORPUSCULAR VOLUME 90 fL (80-99); PLATELET COUNT 229 10^3/uL (130-400); WHITE BLOOD COUNT 22.5 10^3/uL (4.3-11.0)
[2021-03-13] MEDS ORDERED: HEParin 1000 UNIT/ML (10ML VIAL) FOR BOLUS ONE (14:59)
[2021-03-13] MEDS ORDERED: EPTIFIBATIDE BOLUS 20 ML IV ONE (15:01)
[2021-03-13] MEDS ORDERED: CLOPIDOGREL 300 MG (PLAVIX) TABLET PO ONE (15:10)
[2021-03-13] MEDS ORDERED: PATIENT MAY USE OWN MEDS, ALL PO SCH (15:30)
[2021-03-13] MEDS: VANCOMYCIN 1500 MG/NS 500 ML IVPB IV SCH ×2 (16:00)
[2021-03-13] MEDS: DULoxetine 30 MG (CYMBALTA) CAP PO SCH (20:41)
--- NOTE | 2021-03-13 21:38 | CARDIAC CATHETERIZATION ---
DATE OF SERVICE: 03/13/2021 CARDIAC CATHETERIZATION AND CORONARY INTERVENTION REPORT INDICATION FOR PROCEDURE: The patient is an 80-year-old gentleman, who was admitted with acute on chronic respiratory failure and pneumonia. He had an episode of sinus tachycardia and ST segment depression and chest discomfort. Troponin was mildly elevated. This indicated an acute non-ST elevation myocardial infarction. Cardiac catheterization was carried out after having obtained an informed consent for cardiac catheterization and possible ad hoc coronary intervention. DESCRIPTION OF PROCEDURE: He was brought to the cardiac catheterization laboratory in a fasting state. Right groin was prepared and draped in the usual sterile fashion. Lidocaine 1% was used as local anesthesia. Modified Seldinger technique was used to advance a 5-Austrian sheath in the right femoral artery, 5-Austrian JR4 catheter was used for left coronary angiography, 5-Austrian JR4 catheter was used for right coronary angiography, 5-Austrian JR4 catheter was also used for left heart catheterization and left ventricular angiography. At the end of the procedure, following completion of the interventional procedure, angiography of the right femoral artery was carried out and Mynx was used to achieve hemostasis. Following completion of the coronary diagnostic procedure, we proceeded with percutaneous coronary intervention that is described below. PERCUTANEOUS INTERVENTION TO THE RIGHT CORONARY: We exchanged the sheath over a wire for a 6-Austrian sheath. We gave 5000 units of intravenous heparin and a double bolus of Integrilin. We then advanced a 6-Austrian JR4 guide catheter with side holes to engage the right coronary artery. We crossed the lesion in the mid right coronary artery with a BMW wire. We advanced a stent (Marlee 3.0 x 23 mm) to the lesion. This was carefully positioned. The stent extends from the proximal right coronary artery to the mid right coronary artery and covers the diseased segment. The stent was deployed at 20 atmospheres. Subsequent angiography reveals no significant residual stenosis. The patient tolerated the procedure well. HEMODYNAMICS: Left ventricular end-diastolic pressure following coronary angiography was 19 mmHg. There was approximately 70 mm pressure gradient on pullback across the aortic valve. Ascending aortic pressure was 91/59 with a mean of 72 mmHg. CORONARY ANGIOGRAPHY: Diffuse coronary calcification and plaque involves all coronary vessels. The left anterior descending artery appears to have a patent stent in its proximal portion. The left circumflex artery is nondominant. The right coronary artery is dominant and had a diseased segment with stenosis up to 80% in its proximal to mid portion. This was successfully stented with Marlee 3.0 x 23 mm stent that was deployed at 20 atmospheres. LEFT VENTRICULAR ANGIOGRAPHY: Left ventricular angiography was carried out in the right anterior oblique projection. Global left ventricular systolic function appears well preserved. Ejection fraction is 50% to 55%. CONCLUSIONS: 1. Coronary artery disease primarily consisting of 80% proximal to mid vessel stenosis of the right coronary artery that was successfully stented with Marlee 3.0 x 23 mm stent that was deployed at 20 atmospheres. The other coronary vessels have mild to moderate diffuse plaque. 2. Aortic stenosis with a peak to peak pressure gradient of approximately 70 mmHg. 3. Left ventricular end-diastolic pressure is 19 mmHg. 4. Left ventricular ejection fraction is 50 to 55%. DISCUSSION AND RECOMMENDATIONS: Dual antiplatelet therapy has been initiated. Beta dannielle therapy will be provided if allowed by blood pressure. Statin therapy is also recommended. Job ID: [id number] DocumentID: [id number] Dictated Date: 03/13/2021 15:43:25 [employer]crete Block [employer] Date: 03/13/2021 21:37:45 Dictated By: DONN THEODORE MD, MA, FACP, FACC,
[2021-03-14] MEDS: NS IV 1000 ML 1,000 ML IV SCH ×3 (00:50→11:39)
[2021-03-14] MEDS: NS W/KCL 20 MEQ/L 1,000 ML IV SCH (01:06)
[2021-03-14] MEDS: RT-ALBUTEROL SULF 2.5 MG/3 ML PRE-MIX VIAL INH SCH ×6 (02:13→21:24)
[2021-03-14] MEDS: VANCOMYCIN 1500 MG/NS 500 ML IVPB IV SCH ×4 (03:59→16:37)
[2021-03-14] MEDS: MEROPENEM 500 MG/SWFI 10 ML IV PUSH IV SCH ×8 (03:59→22:58)
[2021-03-14 05:33] LABS: BASOPHILS % (AUTO) 0 % (0-10); EOSINOPHILS # (AUTO) 0.3 10^3/uL (0.0-0.3); EOSINOPHILS % (AUTO) 3 % (0-10); HEMATOCRIT 26 % (40-54); HEMOGLOBIN 7.8 g/dL (13.3-17.7); LYMPHOCYTES # (AUTO) 0.9 10^3/uL (1.0-4.0); LYMPHOCYTES % (AUTO) 10 % (12-44); MEAN CORPUSCULAR HEMOGLOBIN 27 pg (25-34); MEAN CORPUSCULAR HGB CONC 30 g/dL (32-36); MEAN CORPUSCULAR VOLUME 91 fL (80-99); MEAN PLATELET VOLUME 11.3 fL (9.0-12.2); MONOCYTES # (AUTO) 0.5 10^3/uL (0.0-1.0); MONOCYTES % (AUTO) 5 % (0-12); NEUTROPHILS # (AUTO) 7.6 10^3/uL (1.8-7.8); NEUTROPHILS % (AUTO) 81 % (42-75); PLATELET COUNT 166 10^3/uL (130-400); WHITE BLOOD COUNT 9.4 10^3/uL (4.3-11.0)
[2021-03-14 05:48] LABS: ALBUMIN 2.5 GM/DL (3.2-4.5); POTASSIUM 4.1 MMOL/L (3.6-5.0)
[2021-03-14 05:50] LABS: CALCIUM 8.1 MG/DL (8.5-10.1)
[2021-03-14 05:51] LABS: TOTAL PROTEIN 5.8 GM/DL (6.4-8.2)
[2021-03-14 05:53] LABS: BILIRUBIN,TOTAL 0.5 MG/DL (0.1-1.0)
[2021-03-14 05:55] LABS: CREATININE SERUM 0.58 MG/DL (0.60-1.30)
[2021-03-14 05:58] LABS: MAGNESIUM 1.8 MG/DL (1.6-2.4)
[2021-03-14] MEDS: ENOXAPARIN 300 MG/3 ML (LOVENOX) MULTI-DOSE VIAL SQ SCH ×2 (06:06→19:58)
[2021-03-14] MEDS: LEVOTHYROXINE 125 MCG (LEVOTHROID) TABLET PO SCH (06:06)
[2021-03-14] MEDS ORDERED: SENNA W/DOCUSATE (SENOKOT S) TABLET PO PRN (06:45)
--- NOTE | 2021-03-14 06:48 | Progress Note - Hospitalist ---
Subjective HPI/CC On Admission Date Seen by Provider: Mar 14, 2021 Time Seen by Provider: 06:42 Patient is an 80-year-old male well-known to me from multiple admissions who presented to the emergency department due to short. He was discharged from the hospital less than 12 hours prior to presentation. He had been stable for many days afebrile, with normal labs on 3 to 4 L of oxygen. He requested discharge home yesterday and had good family support. He was home for roughly 12 hours when his family checked on him in the middle the night and he was hypoxic. EMS was summoned. He was brought to the emergency room required Vapotherm to keep his oxygen saturations up and was admitted to the ICU. He did have a fever at that time 38.9 and a white blood cell count of 14.8 up from 7 yesterday. He also has a mildly elevated troponin and is about to be evaluated by cardiology. He he says he is feeling better and breathing better. He is orienting well. He denies any noncompliance with his home oxygen or medicati ons. Subjective/Events-last exam Pt reports feeling ok but just mentally down after so many readmissions. We discussed the short time period he was home and having DME service his oxygen concentrator to make sure it's working properly. Underwent cath yesterday with stent deployment. Focused Exam Lactate Level 03/13/21 03:47: Lactic Acid Level 1.59 Objective Exam Vital Signs Vital Signs Date Time Temp Pulse Resp B/P (MAP) Pulse Ox O2 Delivery O2 Flow Rate FiO2 03/15/21 09:00 84 14 112/53 99 Vapotherm 20.00 45.00 03/15/21 07:47 36.1 03/14/21 21:24 45 Capillary Refill : Less Than 3 Seconds General Appearance: No Apparent Distress, Chronically ill, Obese Respiratory: No Accessory Muscle Use, Decreased Breath Sounds, Other (oxi-mask at 8lpm) Cardiovascular: Regular Rate, Rhythm, Systolic Murmur Neurologic/Psychiatric: Alert, Oriented x3 Results/Procedures Lab Laboratory Tests 03/15/21 04:28 Patient resulted labs reviewed. Assessment/Plan Assessment and Plan Assess & Plan/Chief Complaint Acute on chronic hypoxic respiratory failure Sever sepsis due to PNA Continue vanc and merrem Leukocytosis and fever resolved Await cultures- still pending TelePulm consulted, appreciate recs Weaned off Vpaotherm Overall poor snf prognosis On low dose pressors D-dimer mildly elevated, consider CTA but likely due to illness and NSTEMI and will defer at the moment due to just receiving contrast D-dimer where it was a week ago and had negative CTA at that time Already on therapeutic Lovenox NSTEMI CAD HTN aoritc stenosis Troponin trended up significantly post cath cardiology consulted echo unchanged from last week, EF 55% with grade 1 diastolic dysfunction and mod/severe aortic stenosis Hold antihypertensives due to soft BPs Stent deployed yesterday RCA DAPT Hypothyroidism BPH s/p SPT Continue home meds when able Anemia Baseline around 9-10 Currently 7.8 Trend, low threshold for transfusion Known FOBT + and had recommended outpatient follow up but will follow labs and see if more urgent need arises Check this PM as on DAPT and lovenox DVT prophylaxis: Nicolex LIZANDRO LENTZ MD Mar 14, 2021 06:48
[2021-03-14] MEDS ORDERED: SIMETHICONE 80 MG (MYLICON) CHEW PO PRN (07:00)
[2021-03-14] MEDS ORDERED: NON-FORMULARY MEDICATION 1 EA EA (Levothyroxine Sodium (Synthroid) 200 MCG) PO SCH (09:00)
[2021-03-14] MEDS ORDERED: LEVOTHYROXINE 50 MCG (LEVOTHROID) TAB PO SCH (09:00)
[2021-03-14] MEDS: OMEGA 3 (FISH OIL) 1000 MG CAP PO SCH (09:23)
[2021-03-14] MEDS: FAMOTIDINE 20 MG (PEPCID) TABLET PO SCH ×2 (09:23→20:00)
[2021-03-14] MEDS: CLOPIDOGREL 75 MG (PLAVIX) TABLET PO SCH (09:23)
[2021-03-14] MEDS: PREGABALIN 150 MG (LYRICA) CAPSULE PO SCH ×2 (09:23→20:00)
[2021-03-14] MEDS: LACTOBACILLUS ACIDOPHILUS (PROBIOTIC) CAPSULE PO SCH ×3 (09:23→16:38)
[2021-03-14] MEDS: ASPIRIN 81 MG CHEW (CHILDREN'S ASA) PO SCH (09:24)
--- NOTE | 2021-03-14 10:03 | Tele-ICU Progress Note ---
Subjective Time Seen by a Provider: 10:03 Sepsis Event Evaluation Height, Weight, BMI Height: 5'11.00" Weight: 282lbs. 0.0oz. 127.740036fy; 37.68 BMI Method:Stated Focused Exam Lactate Level 03/13/21 03:47: Lactic Acid Level 1.59 Exam Exam Patient acknowledged, consented, and participated in this virtual visit which was conducted using real time audio/video Vital Signs Date Time Temp Pulse Resp B/P (MAP) Pulse Ox O2 Delivery O2 Flow Rate FiO2 03/14/21 09:33 Vapotherm 20.00 45.00 03/14/21 08:01 36.3 03/14/21 08:00 86 11 121/63 88 Vapotherm 15.00 45.00 03/14/21 08:00 93 Vapotherm 20.00 45 03/14/21 07:00 79 14 115/60 95 Vapotherm 15.00 45.00 03/14/21 07:00 84 03/14/21 06:51 96 OxyMask 7.00 03/14/21 06:00 82 28 123/60 96 Vapotherm 15.00 45.00 03/14/21 05:00 78 24 125/62 97 Vapotherm 15.00 45.00 03/14/21 04:00 80 18 138/65 95 Vapotherm 15.00 45.00 03/14/21 03:55 98 OxyMask 8.00 03/14/21 03:00 81 18 133/65 96 Vapotherm 15.00 45.00 03/14/21 02:13 98 OxyMask 7.00 03/14/21 02:00 77 19 136/65 98 Vapotherm 15.00 45.00 03/14/21 01:00 72 19 138/67 97 Vapotherm 15.00 45.00 03/14/21 01:00 80 03/14/21 00:02 36.5 03/14/21 00:00 98 OxyMask 8.00 03/14/21 00:00 86 20 135/69 92 Vapotherm 15.00 45.00 03/13/21 23:00 85 18 124/70 94 Vapotherm 15.00 45.00 03/13/21 22:13 100 OxyMask 7.00 03/13/21 22:00 80 17 113/62 96 Vapotherm 15.00 45.00 03/13/21 21:00 78 26 123/62 98 Vapotherm 15.00 45.00 03/13/21 20:41 124/58 03/13/21 20:16 95 OxyMask 12.00 03/13/21 20:00 74 17 120/58 96 Vapotherm 15.00 45.00 03/13/21 19:17 36.0 03/13/21 19:06 97 OxyMask 7.00 03/13/21 19:00 80 03/13/21 19:00 75 18 129/63 97 Vapotherm 15.00 45.00 03/13/21 18:00 75 22 114/68 96 Vapotherm 15.00 45.00 03/13/21 17:00 76 17 110/64 95 Vapotherm 15.00 45.00 03/13/21 16:20 36.2 03/13/21 16:00 76 13 113/60 99 Vapotherm 15.00 45.00 03/13/21 15:50 95 OxyMask 12.00 03/13/21 15:45 75 119/65 Vapotherm 15.00 45.00 03/13/21 14:00 73 22 122/63 95 Vapotherm 15.00 45.00 03/13/21 13:00 80 16 108/69 94 Vapotherm 15.00 45.00 03/13/21 12:59 74 03/13/21 12:04 92 Vapotherm 15.00 45 03/13/21 12:00 75 16 114/65 94 Vapotherm 15.00 45.00 03/13/21 11:43 36.7 03/13/21 11:24 Vapotherm 15.00 45.00 03/13/21 11:20 97 Vapotherm 15.00 45 03/13/21 11:00 81 14 115/67 96 Vapotherm 30.00 60.00 03/13/21 10:48 82 80/46 I & O 03/14/21 07:00 Intake Total 1000 ml Output Total 2150 ml Balance -1150 ml Height & Weight Height: 5'11.00" Weight: 282lbs. 0.0oz. 127.166764nr; 37.68 BMI Method:Stated General Appearance: No Apparent Distress, Chronically ill, Obese Respiratory: No Accessory Muscle Use, Decreased Breath Sounds, Other (oxi-mask at 8lpm) Cardiovascular: Regular Rate, Rhythm, Systolic Murmur Capillary Refill: Less Than 3 Seconds Gastrointestinal: normal bowel sounds, non tender, soft Neurologic/Psychiatric: Alert, Oriented x3 Results Lab Laboratory Tests 03/13/21 03:08 03/13/21 08:41 03/13/21 14:52 03/14/21 05:07 Assessment/Plan Assessment/Plan (Tele-ICU Physician , Progress Note ) Available chart/ vitals / labs / Images reviewed Video assessment done using teleICU camera, rest of exam as per RN Discussed with RN , EXAM PER RN Events overnight : Afebrile I/O = even Drips: Pressors: , hemodynamically stable Consultants: cardiology Hospital course: 03/11 - released from [facility] where he was treated for a UTI and pnemonia 03/13 - ER to ICU with hypoxia and NSTEMI, Vapothernm 03/13 - s/p cath - stented RCA 03/14 Vapotherm 15L 40 % A/P Acute on chronic respiratory failure - Vapotherm 15L 40 % - gentle diuresis soon - by cardiology given severe and NSTEMI- DECREASE IVF TODAY - cont abx today , await cx , repeat cxr NSTEMI, h/o CAD , - s/p cath 03/13- stented RCA -lovenox and beta blockers initiated - Echo 03/13/21 - : LVEF55%, mod , PASP 25-30 mmHg Hypotension / shock - cardiogenic vs septic vs both - received IVF , with severe hypoxia might need pressors unil cardiac status more clear - ON LEVO 0.03 Recent PNA - cxr with increased diffused infiltrates - ? fluid vs infection - given increased WBC will agree with ABX - follow - 02/13 - ariella ( was d/c on Cefepim - as per cardiology Chronic respiratory failure with chronic hypoxemia- 3L o2 at home BPH s/p SPT - UA negative m recent 03/06/21 Urine Culture -Pseudomonas putida -brock changed on 02/10 as per notes Anemia - probabably delutional , follow Lines : midline 03/13 (Central Line Necessity Reviewed) Brock: SPC OG: Nutrition: po Analgesia: Anxiety/ delirium VTE Prophylaxis: lovenox full dose Stress Ulcer Prophylaxis: Glycemic Control: Plans in collaboration with bedside consultants and IM MDs. Discussed with RN to reach out if any questions or concerns A total of 33 minutes of critical care time was devoted to this patient today, required to treat and/or prevent further deterioration of critical care condition ( as above ) . RENAN NEVAREZ MD Mar 14, 2021 10:03
--- NOTE | 2021-03-14 10:27 | Diagnostic Imaging Report ---
EXAMINATION: Chest 1 view HISTORY: Hypoxia. COMPARISON: 03/13/2021. FINDINGS: Worsening interstitial and alveolar opacities are seen throughout the lungs, greatest in the lung bases. No large pleural effusion or pneumothorax. Stable cardiac silhouette. No acute osseous abnormalities. IMPRESSION: 1. Increasing mixed opacities throughout the lungs, greatest in the lung bases. Findings are concerning for multifocal pneumonia with edema also possible. Dictated by: Dictated on workstation # [id number]
[2021-03-14] MEDS: NOREPINEPHRINE 8 MG/250 ML 250 ML IV SCH ×2 (12:06→18:19)
[2021-03-14] MEDS ORDERED: FUROSEMIDE 40 MG/4 ML INJ (LASIX) IVP ONE (15:00)
[2021-03-14] MEDS ORDERED: TROUGH ORDER-PHARMACY XX NR (15:00)
--- NOTE | 2021-03-14 15:02 | Progress Note - Cardiology ---
Cardiology SOAP Progress Note Subjective: Gen malaise and weakness present No n/v/d Short of breath with mild activity, more so than yesterday No cp or palp or syncope Objective: I&O/Vital Signs 03/14/21 03/14/21 03/14/21 03/14/21 03:00 03:55 04:00 05:00 Pulse 81 80 78 Resp 18 18 24 B/P (MAP) 133/65 138/65 125/62 Pulse Ox 96 98 95 97 O2 Delivery Vapotherm OxyMask Vapotherm Vapotherm O2 Flow Rate 15.00 8.00 15.00 15.00 45.00 45.00 45.00 03/14/21 03/14/21 03/14/21 03/14/21 06:00 06:51 07:00 07:00 Pulse 82 84 79 Resp 28 14 B/P (MAP) 123/60 115/60 Pulse Ox 96 96 95 O2 Delivery Vapotherm OxyMask Vapotherm O2 Flow Rate 15.00 7.00 15.00 45.00 45.00 03/14/21 03/14/21 03/14/21 03/14/21 08:00 08:00 08:01 09:00 Temp 36.3 Pulse 86 85 Resp 11 17 B/P (MAP) 121/63 119/58 Pulse Ox 93 88 93 O2 Delivery Vapotherm Vapotherm Vapotherm O2 Flow Rate 20.00 15.00 15.00 45.00 45.00 FiO2 45 03/14/21 03/14/21 03/14/21 03/14/21 09:33 10:00 10:30 11:00 Pulse 90 85 Resp 16 13 B/P (MAP) 120/63 119/60 Pulse Ox 98 99 98 O2 Delivery Vapotherm Vapotherm OxyMask Vapotherm O2 Flow Rate 20.00 20.00 8.00 20.00 45.00 45.00 45.00 03/14/21 03/14/21 03/14/21 03/14/21 11:55 12:00 12:15 13:00 Temp 36.1 Pulse 84 77 Resp 13 17 B/P (MAP) 128/67 89/60 Pulse Ox 97 93 92 O2 Delivery Vapotherm Vapotherm Vapotherm O2 Flow Rate 20.00 20.00 20.00 45.00 45.00 FiO2 45 03/14/21 03/14/21 03/14/21 03/14/21 13:00 14:00 14:35 14:37 Pulse 86 84 Resp 18 B/P (MAP) 94/54 Pulse Ox 81 91 O2 Delivery Vapotherm Vapotherm Vapotherm O2 Flow Rate 20.00 15.00 15.00 45.00 40.00 FiO2 40 03/14/21 00:00 Intake Total 350 ml Output Total 1225 ml Balance -875 ml Weight (Pounds): 282 Weight (Ounces): 0.0 Weight (Calculated Kilograms): 127.315764 Constitutional: AAO x 3, well-developed, well-nourished Respiratory: No accessory muscle use, No respiratory distress; chest expansion is symmetric, chest is bilaterally symmetric, other (coarse breath sounds, some basal coarse and fine crackles) Cardiovascular: regular rate-rhythm; No JVD; S1 and S2, systolic murmur Gastrointestional: No tender; soft, round, audible bowel sounds Extremities: no lower extremity edema bilateral Neurologic/Psychiatric: grossly intact (moves all extremities) Skin: other (multiple small healing abrasions to LE bilat) Results/Procedures: Labs Laboratory Tests 03/14/21 05:07: White Blood Count 9.4, Red Blood Count 2.87L, Hemoglobin 7.8L, Hematocrit 26L, Mean Corpuscular Volume 91, Mean Corpuscular Hemoglobin 27, Mean Corpuscular Hemoglobin Concent 30L, Red Cell Distribution Width 16.9H, Platelet Count 166, Mean Platelet Volume 11.3, Immature Granulocyte % (Auto) 1, Neutrophils (%) (Auto) 81H, Lymphocytes (%) (Auto) 10L, Monocytes (%) (Auto) 5, Eosinophils (%) (Auto) 3, Basophils (%) (Auto) 0, Neutrophils # (Auto) 7.6, Lymphocytes # (Auto) 0.9L, Monocytes # (Auto) 0.5, Eosinophils # (Auto) 0.3, Basophils # (Auto) 0.0, Immature Granulocyte # (Auto) 0.1, Sodium Level 137, Potassium Level 4.1, Chloride Level 107, Carbon Dioxide Level 22, Anion Gap 8, Blood Urea Nitrogen 12, Creatinine 0.58L, Estimat Glomerular Filtration Rate 134, BUN/Creatinine Ratio 21, Glucose Level 135H, Calcium Level 8.1L, Corrected Calcium 9.3, Phosphorus Level 2.0L, Magnesium Level 1.8, Total Bilirubin 0.5, Aspartate Amino Transf (AST/SGOT) 47H, Alanine Aminotransferase (ALT/SGPT) 18, Alkaline Phosphatase 57, Total Protein 5.8L, Albumin 2.5L Microbiology 03/13/21 MRSA Screen - Final, Complete MRSA not isolated 03/13/21 Urine Culture - Preliminary, Resulted Gram Negative Brendan A/P: Assessment: Acute on chronic resp failure - pneumonia - ac on chronic diastolic CHF CAD - s/p two cor stents in 1995 following GA, details unknown - NSTEMI on 03/13/21 - Card cath on 03/13/21: Coronary artery disease primarily consisting of 80% proximal to mid vessel stenosis of the right coronary artery that was successfully stented with Marlee 3.0 x 23 mm stent that was deployed at 20 atmospheres. The other coronary vessels have mild to moderate diffuse plaque. Aortic stenosis with a peak to peak pressure gradient of approximately 70 mmHg. Left ventricular end-diastolic pressure is 19 mmHg. Left ventricular ejection fraction is 50 to 55%. Aortic stenosis, severe. - Echo of 01/19/19: LVEF 70-75%, concentric LVH, mod dil of LA, severe (area 1.1), RVSP 20 mmHg - Echo of 09/08/20: LVEF 55-60%, grade 1 hong dysfxn, AoV could not be adequately interrogated, PASP 35-40 mmHg - Echo 09/30/20: LVEF 60-65%, mod (valve area 1.3 sq cm, mean peak grad 56, mean grad 34), PASP 25-30 mmHg - Echo of 03/14/21: LVEF: 50-55%, with valve area approx 1 sq cm and mean grad 45 mmHg, grade 1 diastolic dysfunction of LV Suprapubic cystostomy Quit smoking in 1995 H/o hypertension H/o hyperlipidemia LILIAN, non-compliant with CPAP Mild COPD on PFTs of Mar 2019 Carotid u/s of 04/19/19: mild bilateral carotid art disease without evidence of hemodynamic significance AAA screening scan of 04/19/19: no evidence of AAA DJD: bilat TKR in 2019 Chronic, bilat leg swelling due to venous insuff Plan: Vol overload today: reduce iv fluids, one dose of furosemide today Monitor labs I had a detailed discussion with him and his daughter regarding his CV issues, findings of card cath, interventions undertaken, and further cardiac care plans Start BB as BP allows Management of pneumonia and resp failure is per Medical and ICU services DONN THEODORE MD FACP [facility] Mar 14, 2021 15:02
[2021-03-14] MEDS: NYSTATIN CREAM (MYCOSTATIN) 30 GM TUBE TP SCH ×3 (16:29→20:03)
[2021-03-14] MEDS: CALCIUM CARBONATE 500 MG (TUMS) TAB.CHEW PO SCH (16:38)
[2021-03-14] MEDS: PANTOPRAZOLE 40 MG (PROTONIX) TAB PO SCH (16:38)
[2021-03-14] MEDS: DULoxetine 30 MG (CYMBALTA) CAP PO SCH (20:00)
[2021-03-14] MEDS: MELATONIN 10 MG TABLET PO SCH (22:57)
[2021-03-15] MEDS: RT-ALBUTEROL SULF 2.5 MG/3 ML PRE-MIX VIAL INH SCH ×6 (01:42→22:10)
[2021-03-15] MEDS: NOREPINEPHRINE 8 MG/250 ML 250 ML IV SCH (04:57)
[2021-03-15 05:17] LABS: BASOPHILS % (AUTO) 0 % (0-10); EOSINOPHILS # (AUTO) 0.3 10^3/uL (0.0-0.3); EOSINOPHILS % (AUTO) 5 % (0-10); HEMATOCRIT 23 % (40-54); HEMOGLOBIN 7.1 g/dL (13.3-17.7); LYMPHOCYTES # (AUTO) 0.7 10^3/uL (1.0-4.0); LYMPHOCYTES % (AUTO) 12 % (12-44); MEAN CORPUSCULAR HEMOGLOBIN 28 pg (25-34); MEAN CORPUSCULAR HGB CONC 31 g/dL (32-36); MEAN CORPUSCULAR VOLUME 90 fL (80-99); MEAN PLATELET VOLUME 11.1 fL (9.0-12.2); MONOCYTES # (AUTO) 0.3 10^3/uL (0.0-1.0); MONOCYTES % (AUTO) 6 % (0-12); NEUTROPHILS # (AUTO) 4.7 10^3/uL (1.8-7.8); NEUTROPHILS % (AUTO) 77 % (42-75); PLATELET COUNT 136 10^3/uL (130-400)
[2021-03-15 05:44] LABS: ALBUMIN 2.4 GM/DL (3.2-4.5); POTASSIUM 3.8 MMOL/L (3.6-5.0)
[2021-03-15 05:46] LABS: CALCIUM 8.6 MG/DL (8.5-10.1)
[2021-03-15 05:47] LABS: TOTAL PROTEIN 5.7 GM/DL (6.4-8.2)
[2021-03-15 05:49] LABS: BILIRUBIN,TOTAL 0.4 MG/DL (0.1-1.0)
[2021-03-15 05:50] LABS: PHOSPHORUS 2.8 MG/DL (2.3-4.7)
[2021-03-15] MEDS: MEROPENEM 500 MG/SWFI 10 ML IV PUSH IV SCH ×8 (05:50→22:58)
[2021-03-15] MEDS: VANCOMYCIN 1500 MG/NS 500 ML IVPB IV SCH ×2 (05:50)
[2021-03-15 05:51] LABS: CREATININE SERUM 0.61 MG/DL (0.60-1.30)
[2021-03-15 05:54] LABS: MAGNESIUM 1.8 MG/DL (1.6-2.4)
[2021-03-15] MEDS: LEVOTHYROXINE 125 MCG (LEVOTHROID) TABLET PO SCH (06:36)
[2021-03-15] MEDS: ENOXAPARIN 300 MG/3 ML (LOVENOX) MULTI-DOSE VIAL SQ SCH (06:36)
[2021-03-15] MEDS: LACTOBACILLUS ACIDOPHILUS (PROBIOTIC) CAPSULE PO SCH ×3 (08:48→17:00)
[2021-03-15] MEDS: FAMOTIDINE 20 MG (PEPCID) TABLET PO SCH ×2 (08:48→20:10)
[2021-03-15] MEDS: PREGABALIN 150 MG (LYRICA) CAPSULE PO SCH ×2 (08:48→20:10)
[2021-03-15] MEDS: ASPIRIN 81 MG CHEW (CHILDREN'S ASA) PO SCH (08:48)
[2021-03-15] MEDS: CLOPIDOGREL 75 MG (PLAVIX) TABLET PO SCH (08:48)
[2021-03-15] MEDS: OMEGA 3 (FISH OIL) 1000 MG CAP PO SCH (08:48)
[2021-03-15] MEDS: NS IV 1000 ML 1,000 ML IV SCH (08:49)
[2021-03-15] MEDS: NYSTATIN CREAM (MYCOSTATIN) 30 GM TUBE TP SCH ×3 (08:50→21:33)
--- NOTE | 2021-03-15 09:36 | Tele-ICU Progress Note ---
Progress Note video rounds completed 80 y/o male with NSTEMI Had cardiac cath yesterday with RCA stent On lovenox and ASA PE: currently comfortable Pulse: 80 NSR BP: 107/59 PLAN: as per cardiology also has aortic stenosis Focused Exam Lactate Level 03/13/21 03:47: Lactic Acid Level 1.59 Height, Weight, BMI Height: 5'11.00" Weight: 282lbs. 0.0oz. 127.904324ym; 37.68 BMI Method:Stated Laboratory Tests 03/15/21 04:28 FARHANA TROY MD Mar 15, 2021 09:36
--- NOTE | 2021-03-15 10:17 | Progress Note - Hospitalist ---
Subjective HPI/CC On Admission Date Seen by Provider: Mar 15, 2021 Time Seen by Provider: 09:00 Patient is an 80-year-old male well-known to me from multiple admissions who presented to the emergency department due to short. He was discharged from the hospital less than 12 hours prior to presentation. He had been stable for many days afebrile, with normal labs on 3 to 4 L of oxygen. He requested discharge home yesterday and had good family support. He was home for roughly 12 hours when his family checked on him in the middle the night and he was hypoxic. EMS was summoned. He was brought to the emergency room required Vapotherm to keep his oxygen saturations up and was admitted to the ICU. He did have a fever at that time 38.9 and a white blood cell count of 14.8 up from 7 yesterday. He also has a mildly elevated troponin and is about to be evaluated by cardiology. He he says he is feeling better and breathing better. He is orienting well. He denies any noncompliance with his home oxygen or medicat ions. Subjective/Events-last exam Pt reports feeling better today. No pain. No SOB. Was on Vapotherm for a short period of time during breakfast because he took his oxygen off completely to eat without telling the RN and desatted to the 70s. Discussed with patient and his daughter who was on speakerphone about the need to keep oxygen on. Focused Exam Lactate Level 03/13/21 03:47: Lactic Acid Level 1.59 Objective Exam Vital Signs Vital Signs Date Time Temp Pulse Resp B/P (MAP) Pulse Ox O2 Delivery O2 Flow Rate FiO2 03/15/21 09:00 84 14 112/53 99 Vapotherm 20.00 45.00 03/15/21 07:47 36.1 03/14/21 21:24 45 Capillary Refill : Less Than 3 Seconds General Appearance: No Apparent Distress, Chronically ill, Obese Respiratory: No Accessory Muscle Use, No Respiratory Distress, Decreased Breath Sounds (in cases) Cardiovascular: Regular Rate, Rhythm, Systolic Murmur Neurologic/Psychiatric: Alert, Oriented x3 Results/Procedures Lab Laboratory Tests 03/15/21 04:28 Patient resulted labs reviewed. Assessment/Plan Assessment and Plan Assess & Plan/Chief Complaint Acute on chronic hypoxic respiratory failure Sever sepsis due to PNA Continue merrem Leukocytosis and fever resolved Blood cultures NGTD, MRSA swab negative, DC Vanc TelePulm consulted, appreciate recs Currently on oxi mask 7lpm Overall poor terminal clerk prognosis Off pressors D-dimer mildly elevated, consider CTA but likely due to illness and NSTEMI and will defer at the moment due to just receiving contrast D-dimer near where it was a week ago and had negative CTA at that time have to DC lovenox due to anemia Consider CTA if any change to respiratory status as has now been 48 hours since contrast NSTEMI CAD HTN aoritc stenosis cardiology consulted echo unchanged from last week, EF 55% with grade 1 diastolic dysfunction and mod/severe aortic stenosis Hold antihypertensives due to soft BPs Stent deployed 03/13 RCA DAPT Anemia Baseline around 910 Currently 7.0 Will transfuse 1 unit today and DC therapeutic Lovenox Known FOBT + and had recommended outpatient follow up but will follow labs and see if more urgent need arises Discussed with surgery and due to recent stent and need for continuous DAPT would likely not benefit from scope and would only be more risk from sedation Discussed with Dr Giraldo who agree with transfusion, DCing Lovenox and is ok with holding Plavix for 1-2 days if need for endoscopic evaluation becomes emergent/if he actively starts bleeding Hypothyroidism BPH s/p SPT Continue home meds when able DVT prophylaxis: SCDs LIZANDRO LENTZ MD Mar 15, 2021 10:17
[2021-03-15] MEDS ORDERED: NS IV 500 ML 500 ML IV SCH ×2 (10:30)
[2021-03-15 12:52] VITALS: BP 110/57
[2021-03-15 13:07] VITALS: BP 126/67
--- NOTE | 2021-03-15 15:09 | Progress Note - Cardiology ---
Cardiology SOAP Progress Note Subjective: No cp or palp or syncope Gen weakness and malaise present Short of breath with mild to mod activity No n/v/d Objective: I&O/Vital Signs 03/15/21 03/15/21 03/15/21 03/15/21 04:00 04:00 05:00 06:00 Pulse 79 84 81 Resp 18 13 16 B/P (MAP) 103/57 122/63 118/58 Pulse Ox 98 O2 Delivery OxyMask Vapotherm Vapotherm Vapotherm O2 Flow Rate 7.00 20.00 20.00 20.00 45.00 45.00 45.00 03/15/21 03/15/21 03/15/21 03/15/21 07:00 07:00 07:27 07:47 Temp 36.1 Pulse 78 77 Resp 15 B/P (MAP) 118/60 Pulse Ox 98 97 O2 Delivery OxyMask OxyMask O2 Flow Rate 7.00 7.00 03/15/21 03/15/21 03/15/21 03/15/21 08:00 08:00 09:00 10:00 Pulse 77 84 82 Resp 17 14 17 B/P (MAP) 122/66 112/53 124/63 Pulse Ox 96 98 99 100 O2 Delivery OxyMask OxyMask OxyMask OxyMask O2 Flow Rate 7.00 7.00 7.00 7.00 03/15/21 03/15/21 03/15/21 03/15/21 10:46 10:49 12:00 12:00 Pulse 82 Resp 13 B/P (MAP) 100/56 Pulse Ox 94 93 100 O2 Delivery High Flow N/C High Flow N/C High Flow N/C High Flow N/C O2 Flow Rate 7.00 7.00 7.00 7.00 03/15/21 03/15/21 03/15/21 03/15/21 12:03 12:52 12:55 13:07 Temp 36.2 36.1 36.0 Pulse 70 74 86 Resp 19 16 B/P (MAP) 110/57 126/67 Pulse Ox 100 96 O2 Delivery High Flow N/C High Flow N/C O2 Flow Rate 7.00 7.00 03/15/21 00:00 Intake Total 1450 ml Output Total 3525 ml Balance -2075 ml Weight (Pounds): 282 Weight (Ounces): 0.0 Weight (Calculated Kilograms): 127.428004 Constitutional: AAO x 3, well-developed, well-nourished Respiratory: No accessory muscle use, No respiratory distress; chest expansion is symmetric, chest is bilaterally symmetric, other (coarse breath sounds, some basal coarse and fine crackles) Cardiovascular: regular rate-rhythm; No JVD; S1 and S2, systolic murmur Gastrointestional: No tender; soft, round, audible bowel sounds Extremities: no lower extremity edema bilateral Neurologic/Psychiatric: grossly intact (moves all extremities) Skin: other (multiple small healing abrasions to LE bilat) Results/Procedures: Labs Laboratory Tests 03/14/21 15:10: Vancomycin Level Trough 17.5 03/15/21 04:28: White Blood Count 6.0, Red Blood Count 2.58L, Hemoglobin 7.1L, Hematocrit 23L, Mean Corpuscular Volume 90, Mean Corpuscular Hemoglobin 28, Mean Corpuscular Hemoglobin Concent 31L, Red Cell Distribution Width 16.9H, Platelet Count 136, Mean Platelet Volume 11.1, Immature Granulocyte % (Auto) 0, Neutrophils (%) (Auto) 77H, Lymphocytes (%) (Auto) 12, Monocytes (%) (Auto) 6, Eosinophils (%) (Auto) 5, Basophils (%) (Auto) 0, Neutrophils # (Auto) 4.7, Lymphocytes # (Auto) 0.7L, Monocytes # (Auto) 0.3, Eosinophils # (Auto) 0.3, Basophils # (Auto) 0.0, Immature Granulocyte # (Auto) 0.0, Sodium Level 137, Potassium Level 3.8, Chloride Level 103, Carbon Dioxide Level 26, Anion Gap 8, Blood Urea Nitrogen 12, Creatinine 0.61, Estimat Glomerular Filtration Rate 127, BUN/Creatinine Ratio 20, Glucose Level 113H, Calcium Level 8.6, Corrected Calcium 9.9, Phosphorus Level 2.8, Magnesium Level 1.8, Total Bilirubin 0.4, Aspartate Amino Transf (AST/SGOT) 28, Alanine Aminotransferase (ALT/SGPT) 17, Alkaline Phosphatase 59, Total Protein 5.7L, Albumin 2.4L Microbiology 03/13/21 MRSA Screen - Final, Complete MRSA not isolated 03/13/21 Blood Culture - Preliminary, Resulted No growth 03/13/21 Urine Culture - Preliminary, Resulted Pseudomonas putida Laboratory Tests 03/14/21 05:07 03/15/21 04:28 A/P: Assessment: Worsening anemia - possible GI bleed Acute on chronic resp failure - pneumonia - ac on chronic diastolic CHF CAD - s/p two cor stents in 1995 following AL, details unknown - NSTEMI on 03/13/21 - Card cath on 03/13/21: Coronary artery disease primarily consisting of 80% proximal to mid vessel stenosis of the right coronary artery that was successfully stented with Marlee 3.0 x 23 mm stent that was deployed at 20 atmospheres. The other coronary vessels have mild to moderate diffuse plaque. Aortic stenosis with a peak to peak pressure gradient of approximately 70 mmHg. Left ventricular end-diastolic pressure is 19 mmHg. Left ventricular ejection fraction is 50 to 55%. Aortic stenosis, severe. - Echo of 01/19/19: LVEF 70-75%, concentric LVH, mod dil of LA, severe (area 1.1), RVSP 20 mmHg - Echo of 09/08/20: LVEF 55-60%, grade 1 hong dysfxn, AoV could not be adequately interrogated, PASP 35-40 mmHg - Echo 09/30/20: LVEF 60-65%, mod (valve area 1.3 sq cm, mean peak grad 56, mean grad 34), PASP 25-30 mmHg - Echo of 03/14/21: LVEF: 50-55%, with valve area approx 1 sq cm and mean grad 45 mmHg, grade 1 diastolic dysfunction of LV Suprapubic cystostomy Quit smoking in 1995 H/o hypertension H/o hyperlipidemia LILIAN, non-compliant with CPAP Mild COPD on PFTs of Mar 2019 Carotid u/s of 04/19/19: mild bilateral carotid art disease without evidence of hemodynamic significance AAA screening scan of 04/19/19: no evidence of AAA DJD: bilat TKR in 2019 Chronic, bilat leg swelling due to venous insuff Plan: Complex management due to multiple comorbidities Blood transfusion today Monitor labs Management of pneumonia and resp failure is per Medical and ICU services I discussed his case with Dr Tse on the phone today DONN THEODORE MD FACP FAC CCDS Mar 15, 2021 15:09
[2021-03-15 15:23] VITALS: BP 119/73
[2021-03-15] MEDS: PANTOPRAZOLE 40 MG (PROTONIX) TAB PO SCH (16:56)
[2021-03-15] MEDS: CALCIUM CARBONATE 500 MG (TUMS) TAB.CHEW PO SCH (16:56)
[2021-03-15] MEDS: DULoxetine 30 MG (CYMBALTA) CAP PO SCH (20:10)
[2021-03-15] MEDS: MELATONIN 10 MG TABLET PO SCH (22:58)
[2021-03-16] MEDS: RT-ALBUTEROL SULF 2.5 MG/3 ML PRE-MIX VIAL INH SCH ×4 (02:11→14:52)
[2021-03-16] MEDS: MEROPENEM 500 MG/SWFI 10 ML IV PUSH IV SCH ×4 (04:09→11:55)
[2021-03-16] MEDS: LEVOTHYROXINE 125 MCG (LEVOTHROID) TABLET PO SCH (05:52)
[2021-03-16 06:18] LABS: BASOPHILS % (AUTO) 1 % (0-10); MEAN CORPUSCULAR HEMOGLOBIN 28 pg (25-34); MEAN CORPUSCULAR HGB CONC 31 g/dL (32-36); MEAN PLATELET VOLUME 11.9 fL (9.0-12.2); WHITE BLOOD COUNT 6.1 10^3/uL (4.3-11.0)
[2021-03-16 06:19] LABS: EOSINOPHILS # (AUTO) 0.3 10^3/uL (0.0-0.3); EOSINOPHILS % (AUTO) 5 % (0-10); HEMATOCRIT 25 % (40-54); HEMOGLOBIN 7.8 g/dL (13.3-17.7); LYMPHOCYTES # (AUTO) 0.7 10^3/uL (1.0-4.0); LYMPHOCYTES % (AUTO) 11 % (12-44); MEAN CORPUSCULAR VOLUME 89 fL (80-99); MONOCYTES # (AUTO) 0.3 10^3/uL (0.0-1.0); MONOCYTES % (AUTO) 5 % (0-12); NEUTROPHILS # (AUTO) 4.8 10^3/uL (1.8-7.8); NEUTROPHILS % (AUTO) 78 % (42-75); PLATELET COUNT 96 10^3/uL (130-400)
[2021-03-16 06:32] LABS: ALBUMIN 2.4 GM/DL (3.2-4.5); POTASSIUM 4.1 MMOL/L (3.6-5.0)
[2021-03-16 06:33] LABS: CALCIUM 8.4 MG/DL (8.5-10.1)
[2021-03-16 06:35] LABS: TOTAL PROTEIN 5.8 GM/DL (6.4-8.2)
[2021-03-16 06:36] LABS: BILIRUBIN,TOTAL 0.6 MG/DL (0.1-1.0)
[2021-03-16 06:38] LABS: CREATININE SERUM 0.55 MG/DL (0.60-1.30); PHOSPHORUS 2.6 MG/DL (2.3-4.7)
[2021-03-16 06:41] LABS: MAGNESIUM 1.7 MG/DL (1.6-2.4)
[2021-03-16] MEDS: OMEGA 3 (FISH OIL) 1000 MG CAP PO SCH (07:42)
[2021-03-16] MEDS: CLOPIDOGREL 75 MG (PLAVIX) TABLET PO SCH (07:42)
[2021-03-16] MEDS: FAMOTIDINE 20 MG (PEPCID) TABLET PO SCH (07:42)
[2021-03-16] MEDS: ASPIRIN 81 MG CHEW (CHILDREN'S ASA) PO SCH (07:42)
[2021-03-16] MEDS: PREGABALIN 150 MG (LYRICA) CAPSULE PO SCH (07:42)
[2021-03-16] MEDS: LACTOBACILLUS ACIDOPHILUS (PROBIOTIC) CAPSULE PO SCH ×2 (07:42→11:55)
[2021-03-16] MEDS: NYSTATIN CREAM (MYCOSTATIN) 30 GM TUBE TP SCH ×2 (07:43→11:58)
[2021-03-16] MEDS ORDERED: NS IV 500 ML 500 ML ONE (12:42)
[2021-03-16 13:11] VITALS: BP 126/65
[2021-03-16 13:31] VITALS: BP 142/71
--- NOTE | 2021-03-16 14:33 | Discharge Summary ---
Discharge Summary Hospital Course Was the Problem List Reviewed?: Yes Problems/Dx: (1) HCAP (healthcare-associated pneumonia) Status: Acute (2) NSTEMI (non-ST elevated myocardial infarction) Status: Acute (3) Status post coronary artery stent placement Status: Acute (4) Sepsis due to pneumonia Status: Acute (5) Acute on chronic respiratory failure with hypoxia Status: Acute (6) Anemia Status: Acute (7) Debility Status: Acute (8) Obesity Status: Chronic (9) Poor prognosis Status: Acute (10) Recurrent pneumonia Status: Acute Hospital Course Date of Admission: Mar 13, 2021 at 03:45 Admission Diagnosis: Severe sepsis due to recurrent multifocal pneumonia Family Physician/Provider: Bridgett Bach MD Date of Discharge: 03/16/21 Discharge Diagnosis: Severe sepsis due to recurrent multifocal pneumonia, NSTE AR, CAD s/p coronary artery stenting, anemia Hospital Course: Ilia Barbour is an 80-year-old male who was admitted with severe sepsis due to recurrent multifocal pneumonia. He was started on IV meropenem and improved. He had acute on chronic respiratory failure with hypoxia which returned to his baseline. He developed chest pain and his troponin trended up. Cardiology was consulted and he underwent a left heart catheterization with coronary artery stent placement. He also had anemia thought to be due to GI blood loss. General surgery was consulted but recommended conservative management due to his ongoing antiplatelet medications. He was transfused 2 units of PRBC. His hemoglobin improved. Due to his ongoing IV antibiotic and therapy needs he was transitioned to swing bed status. Labs and Pending Lab Test: Laboratory Tests 03/16/21 04:28: Heparin-Induced Platelet Ab (Opal) [Pending] 03/16/21 05:57: White Blood Count 6.1, Red Blood Count 2.82L, Hemoglobin 7.8L, Hematocrit 25L, Mean Corpuscular Volume 89, Mean Corpuscular Hemoglobin 28, Mean Corpuscular Hemoglobin Concent 31L, Red Cell Distribution Width 16.4H, Platelet Count 96L, Mean Platelet Volume 11.9, Immature Granulocyte % (Auto) 1, Neutrophils (%) (Auto) 78H, Lymphocytes (%) (Auto) 11L, Monocytes (%) (Auto) 5, Eosinophils (%) (Auto) 5, Basophils (%) (Auto) 1, Neutrophils # (Auto) 4.8, Lymphocytes # (Auto) 0.7L, Monocytes # (Auto) 0.3, Eosinophils # (Auto) 0.3, Basophils # (Auto) 0.0, Immature Granulocyte # (Auto) 0.0, Percent Immature Platelet Fraction 7.2, Sodium Level 138, Potassium Level 4.1, Chloride Level 103, Carbon Dioxide Level 27, Anion Gap 8, Blood Urea Nitrogen 11, Creatinine 0.55L, Estimat Glomerular Filtration Rate 143, BUN/Creatinine Ratio 20, Glucose Level 93, Calcium Level 8.4L, Corrected Calcium 9.7, Phosphorus Level 2.6, Magnesium Level 1.7, Total Bilirubin 0.6, Aspartate Amino Transf (AST/SGOT) 22, Alanine Aminotransferase (ALT/SGPT) 16, Alkaline Phosphatase 51, Total Protein 5.8L, Albumin 2.4L Microbiology 03/13/21 MRSA Screen - Final, Complete MRSA not isolated 03/13/21 Blood Culture - Preliminary, Resulted No growth 03/13/21 Urine Culture - Preliminary, Resulted Pseudomonas putida Home Meds Active Reported Acid Mangle Feeder (FAMOTIDINE) (Famotidine) 20 Mg Tablet 20 Mg PO BID Cefdinir 300 Mg Capsule 300 Mg PO BID TAKES 03-12-2021 #20/ DAY SUPPLY Acidophilus-Pectin Capsule (Lactobacillus Acidophilus/Pect) 1 Each Capsule 2 Each PO TIDWM Nystatin 15 Gm Cream..g. 1 Appful TP TID Simethicone 80 Mg Tab.chew 80 Mg PO Q4H PRN Lanolin (Modified Lanolin) 40 Gm Cream..g. 1 Applic TP UD PRN Vitamin C (Ascorbate Calcium) 500 Mg Tablet 500 Mg PO DAILY Toviaz (Fesoterodine Fumarate) 4 Mg Tab.sr.24h 4 Mg PO DAILY Melatonin 10 Mg Tab.rapdis 10-20 Mg PO HS PRN Low Dose Aspirin EC (Aspirin) 81 Mg Tablet.dr 81 Mg PO DAILY Potassium Chloride 10 Meq Capsule.er 10 Meq PO DAILY Furosemide 40 Mg Tablet 40 Mg PO DAILY Senna-Plus Tablet (Sennosides/Docusate Sodium) 1 Each Tablet 2 Tab PO BID Nitrofurantoin (Nitrofurantoin Macrocrystal) 100 Mg Capsule 100 Mg PO 1700 W/DINNER Tramadol HCl 50 Mg Tablet 50 Mg PO Q6H PRN Azo Cranberry Softgel (Cranberry Extract/Vit C) 1 Each Capsule 1 Each PO BID Calcium (Calcium Carbonate) 500 Mg Tablet 500 Mg PO 1700 Synthroid (Levothyroxine Sodium) 200 Mcg Tablet 200 Mcg PO DAILY TAKES 200MCG +50MCG Vitamin B12 (Cyanocobalamin (Vitamin B-12)) 2,500 Mcg Tablet 2,500 Mcg PO DAILY Lyrica (Pregabalin) 150 Mg Capsule 150 Mg PO BID Glucosamine Chondroitin Tab (Gluc Beckham/Chondro Beckham A/Vit C/Mn) 1 Each Tablet 1 Tab PO DAILY Ruben Multi For Men Tablet (Mv-Mn/FA/Lycopene/Lut/Hb#178) 1 Each Tablet 2 Tab PO DAILY [place] (Saw [place] Fruit) 450 Mg Capsule 2 Cap PO DAILY Fish Oil 1,000 mg Capsule ([place] 3 Polyunsat Fatty Acids) 1,000 Mg Cap 1,000 Mg PO DAILY Zinc 50 Mg Tablet 50 Mg PO DAILY Atorvastatin Calcium 40 Mg Tablet 40 Mg PO DAILY Synthroid (Levothyroxine Sodium) 50 Mcg Tablet 50 Mcg PO DAILY TAKES 200MCG +50MCG Metformin HCl ER (Metformin HCl) 1,000 Mg Tab.er.24 1,000 Mg PO BID WITH MEALS Pantoprazole Sodium 40 Mg Tablet.dr 40 Mg PO 1700 Assessment/Pt Instructions Discharged to swing bed for ongoing IV antibiotics and therapy needs Discharge Planning: <30 minutes discharge planning Discharge Instructions Discharge Diet: No Restrictions Activity as Tolerated: Yes Consultations Cardiology Discharge Physical Examination Vital Signs Vital Signs Date Time Temp Pulse Resp B/P (MAP) Pulse Ox O2 Delivery O2 Flow Rate FiO2 03/16/21 13:31 36.6 85 142/71 93 Nasal Cannula 3.00 03/16/21 13:11 15 03/14/21 21:24 45 General Appearance: No Apparent Distress, Chronically ill, Obese Respiratory: No Respiratory Distress, Decreased Breath Sounds Cardiovascular: Regular Rate, Rhythm, No Murmur Gastrointestinal: Normal Bowel Sounds, Non Tender, Soft Extremity: Normal Inspection, Non Tender, No Pedal Edema Skin: Normal Color, Warm/Dry Neurologic/Psychiatric: Alert, Oriented x3, Depressed Affect, Motor Weakness Allergies: Coded Allergies: Sulfa (Sulfonamide Antibiotics) (Verified Allergy, Intermediate, RASH, CHILLS, 07/10/19) Copy Copies To 1: BRIDGETT BACH MD Discharge Summary Date of Admission Mar 13, 2021 at 03:45 Date of Discharge Discharge Date: Mar 16, 2021 Discharge Time: 14:32 Admission Diagnosis Severe sepsis due to recurrent multifocal pneumonia Consults/Procedures Consulations Cardiology, general surgery Discharge Diagnosis (1) Sepsis due to pneumonia Status: Acute (2) Anemia Status: Acute (3) NSTEMI (non-ST elevated myocardial infarction) Status: Acute (4) HCAP (healthcare-associated pneumonia) Status: Acute (5) Acute on chronic respiratory failure with hypoxia Status: Acute (6) Debility Status: Acute (7) Obesity Status: Chronic (8) Recurrent pneumonia Status: Acute (9) Poor prognosis Status: Acute NAREN MCMAHON MD Mar 16, 2021 14:31
[2021-03-16 15:24] VITALS: BP 136/70
--- NOTE | 2021-03-16 16:53 | Progress Note - Cardiology ---
Cardiology SOAP Progress Note Subjective: Gen malaise and weakness No cp or palp or syncope Shortness of breath with activity No n/v/d Objective: I&O/Vital Signs 03/16/21 03/16/21 03/16/21 03/16/21 06:43 06:45 07:45 07:48 Temp 36.2 Pulse 75 85 Resp 12 B/P (MAP) 131/69 Pulse Ox 94 93 90 O2 Delivery OxyMask High Flow N/C High Flow N/C O2 Flow Rate 3.00 3.00 3.00 03/16/21 03/16/21 03/16/21 03/16/21 10:33 12:00 12:00 12:40 Temp 36.0 36.3 Pulse 80 71 72 Resp 15 14 B/P (MAP) 126/65 126/64 Pulse Ox 92 94 95 O2 Delivery High Flow N/C High Flow N/C High Flow N/C O2 Flow Rate 2.00 3.00 3.00 03/16/21 03/16/21 03/16/21 03/16/21 13:11 13:31 14:53 15:24 Temp 36.0 36.6 36.6 Pulse 69 85 77 Resp 15 20 B/P (MAP) 126/65 142/71 136/70 Pulse Ox 95 93 97 96 O2 Delivery Nasal Cannula Nasal Cannula High Flow N/C Nasal Cannula O2 Flow Rate 2.00 3.00 3.00 2.00 03/16/21 15:25 Temp 36.6 Pulse 74 Resp 16 B/P (MAP) 136/70 Pulse Ox 95 O2 Delivery High Flow N/C O2 Flow Rate 2.00 03/16/21 00:00 Intake Total 550 ml Output Total 900 ml Balance -350 ml Weight (Pounds): 282 Weight (Ounces): 0.0 Weight (Calculated Kilograms): 127.868861 Constitutional: AAO x 3, well-developed, well-nourished Respiratory: No accessory muscle use, No respiratory distress; chest expansion is symmetric, chest is bilaterally symmetric, other (coarse breath sounds, some basal coarse and fine crackles) Cardiovascular: regular rate-rhythm; No JVD; S1 and S2, systolic murmur Gastrointestional: No tender; soft, round, audible bowel sounds Extremities: no lower extremity edema bilateral Neurologic/Psychiatric: grossly intact (moves all extremities) Skin: other (multiple small healing abrasions to LE bilat) Results/Procedures: Labs Laboratory Tests 03/16/21 04:28: 03/16/21 05:57: White Blood Count 6.1, Red Blood Count 2.82L, Hemoglobin 7.8L, Hematocrit 25L, Mean Corpuscular Volume 89, Mean Corpuscular Hemoglobin 28, Mean Corpuscular Hemoglobin Concent 31L, Red Cell Distribution Width 16.4H, Platelet Count 96L, Mean Platelet Volume 11.9, Immature Granulocyte % (Auto) 1, Neutrophils (%) (Auto) 78H, Lymphocytes (%) (Auto) 11L, Monocytes (%) (Auto) 5, Eosinophils (%) (Auto) 5, Basophils (%) (Auto) 1, Neutrophils # (Auto) 4.8, Lymphocytes # (Auto) 0.7L, Monocytes # (Auto) 0.3, Eosinophils # (Auto) 0.3, Basophils # (Auto) 0.0, Immature Granulocyte # (Auto) 0.0, Percent Immature Platelet Fraction 7.2, Sodium Level 138, Potassium Level 4.1, Chloride Level 103, Carbon Dioxide Level 27, Anion Gap 8, Blood Urea Nitrogen 11, Creatinine 0.55L, Estimat Glomerular Filtration Rate 143, BUN/Creatinine Ratio 20, Glucose Level 93, Calcium Level 8.4L, Corrected Calcium 9.7, Phosphorus Level 2.6, Magnesium Level 1.7, Total Bilirubin 0.6, Aspartate Amino Transf (AST/SGOT) 22, Alanine Aminotransferase (ALT/SGPT) 16, Alkaline Phosphatase 51, Total Protein 5.8L, Albumin 2.4L Microbiology 03/13/21 MRSA Screen - Final, Complete MRSA not isolated 03/13/21 Blood Culture - Preliminary, Resulted No growth 03/13/21 Urine Culture - Preliminary, Resulted Pseudomonas putida Laboratory Tests 03/15/21 04:28 03/16/21 05:57 A/P: Assessment: Worsening anemia - possible GI bleed, managed by the Hospitalist Ru, s/p blood transfusion on 03/15/21 Mild thrombocytopenia Acute on chronic resp failure - pneumonia - ac on chronic diastolic CHF CAD - s/p two cor stents in 1995 following [place], details unknown - NSTEMI on 03/13/21 - Card cath on 03/13/21: Coronary artery disease primarily consisting of 80% proximal to mid vessel stenosis of the right coronary artery that was successfully stented with Marlee 3.0 x 23 mm stent that was deployed at 20 atmospheres. The other coronary vessels have mild to moderate diffuse plaque. Aortic stenosis with a peak to peak pressure gradient of approximately 70 mmHg. Left ventricular end-diastolic pressure is 19 mmHg. Left ventricular ejection fraction is 50 to 55%. Aortic stenosis, severe. - Echo of 01/19/19: LVEF 70-75%, concentric LVH, mod dil of LA, severe (area 1.1), RVSP 20 mmHg - Echo of 09/08/20: LVEF 55-60%, grade 1 hong dysfxn, AoV could not be adequately interrogated, PASP 35-40 mmHg - Echo 09/30/20: LVEF 60-65%, mod (valve area 1.3 sq cm, mean peak grad 56, mean grad 34), PASP 25-30 mmHg - Echo of 03/14/21: LVEF: 50-55%, with valve area approx 1 sq cm and mean grad 45 mmHg, grade 1 diastolic dysfunction of LV Suprapubic cystostomy Quit smoking in 1995 H/o hypertension H/o hyperlipidemia LILIAN, non-compliant with CPAP Mild COPD on PFTs of Mar 2019 Carotid u/s of 04/19/19: mild bilateral carotid art disease without evidence of hemodynamic significance AAA screening scan of 04/19/19: no evidence of AAA DJD: bilat TKR in 2019 Chronic, bilat leg swelling due to venous insuff Plan: Complex management due to multiple comorbidities Monitor labs Management of pneumonia and anemia and thrombocytopenia and resp failure is by the Hospitalist Service DONN THEODORE MD FACP FAC CCDS Mar 16, 2021 16:53
== END 2021-03-16 15:43 | disposition swing bed (61) | DRG 853 ==
LOC: EDUNIT# 02:59 → ER 03:02 → EDLOC 03:45 → ICU 03:45 → CSD 03-15 16:27
PROVIDERS: ADMIT Internal Medicine; ATTEND Internal Medicine
PROC: 027034Z Dilation of Coronary Artery, One Artery with Drug-eluting Intraluminal Device, Percutaneous Approach (ICD-10-PCS; principal; 2021-03-13)
PROC: 4A023N7 Measurement of Cardiac Sampling and Pressure, Left Heart, Percutaneous Approach (ICD-10-PCS; 2021-03-13)
PROC: B2151ZZ Fluoroscopy of Left Heart using Low Osmolar Contrast (ICD-10-PCS; 2021-03-13)
PROC: B2111ZZ Fluoroscopy of Multiple Coronary Arteries using Low Osmolar Contrast (ICD-10-PCS; 2021-03-13)
DX: A41.9 Sepsis, unspecified organism (principal); J18.9 Pneumonia, unspecified organism; I21.4 Non-ST elevation (NSTEMI) myocardial infarction; J96.21 Acute and chronic respiratory failure with hypoxia; I50.33 Acute on chronic diastolic (congestive) heart failure; K92.2 Gastrointestinal hemorrhage, unspecified; J44.0 Chronic obstructive pulmonary disease with (acute) lower respiratory infection; E11.9 Type 2 diabetes mellitus without complications; E03.9 Hypothyroidism, unspecified; E78.5 Hyperlipidemia, unspecified; Z79.82 Long term (current) use of aspirin; Z79.84 Long term (current) use of oral hypoglycemic drugs; Z79.899 Other long term (current) drug therapy; Z79.890 Hormone replacement therapy; Z87.891 Personal history of nicotine dependence; Z95.5 Presence of coronary angioplasty implant and graft; I25.10 Atherosclerotic heart disease of native coronary artery without angina pectoris; E78.00 Pure hypercholesterolemia, unspecified; N40.0 Benign prostatic hyperplasia without lower urinary tract symptoms; K21.9 Gastro-esophageal reflux disease without esophagitis; G89.29 Other chronic pain; M19.90 Unspecified osteoarthritis, unspecified site; M10.9 Gout, unspecified; M54.9 Dorsalgia, unspecified; R65.20 Severe sepsis without septic shock; I35.0 Nonrheumatic aortic (valve) stenosis; I11.0 Hypertensive heart disease with heart failure; D64.9 Anemia, unspecified; I95.9 Hypotension, unspecified; E66.9 Obesity, unspecified; D69.6 Thrombocytopenia, unspecified; G47.33 Obstructive sleep apnea (adult) (pediatric); I87.2 Venous insufficiency (chronic) (peripheral); Z96.653 Presence of artificial knee joint, bilateral; I25.2 Old myocardial infarction; Z20.822 Contact with and (suspected) exposure to COVID-19; Z68.38 Body mass index [BMI] 38.0-38.9, adult
CPT/HCPCS: 36410; 36415; 36600; 71045; 76937; 80048; 80053; 80202; 81000; 82805; 83605; 83735; 84100; 84484; 85007; 85025; 85027; 85379; 85610; 85730; 86022; 86850; 86900; 86901; 86920; 87040; 87077; 87081; 87088; 87186; 87636; 93005; 93306; 93458; 94640; 94660

== ENCOUNTER 2021-03-16 12:17 | Inpatient (IN) | payer MEDICARE, OTHER ==
[~2021-03-16] VITALS: Ht 180.3 cm; Wt 127.9 kg
[~2021-03-16 12:17] MED LIST changes: +FAMO20TA3 PO; +SIME80TA16 PO
[2021-03-16] MEDS ORDERED: MEROPENEM 500 MG in WATER (STERILE) FOR INJECTION 10 ML IV SCH (15:45)
[2021-03-16] MEDS ORDERED: NITROGLYCERIN 0.4 MG SL TABS BTL 25'S SL PRN (15:45)
[2021-03-16] MEDS ORDERED: morphine INJ 4 MG/ML 1 ML (VIAL/SYRINGE) IVP PRN (15:45)
[2021-03-16] MEDS ORDERED: ONDANSETRON 4 MG/2 ML (SDV) Z0FRAN IVP PRN (15:45)
[2021-03-16] MEDS ORDERED: SIMETHICONE 80 MG (MYLICON) CHEW PO PRN (15:45)
[2021-03-16] MEDS ORDERED: PATIENT MAY USE OWN MEDS, ALL PO SCH (15:45)
[2021-03-16 16:00] VITALS: BP 111/53
[2021-03-16] MEDS: LACTOBACILLUS ACIDOPHILUS (PROBIOTIC) CAPSULE PO SCH (16:38)
[2021-03-16] MEDS: MEROPENEM 500 MG in WATER (STERILE) FOR INJECTION 10 ML IV SCH ×2 (16:38→22:06)
[2021-03-16] MEDS: CALCIUM CARBONATE 500 MG (TUMS) TAB.CHEW PO SCH (16:38)
[2021-03-16] MEDS: PANTOPRAZOLE 40 MG (PROTONIX) TAB PO SCH (16:38)
[2021-03-16 17:34] VITALS: BP 119/59
[2021-03-16] MEDS: RT-ALBUTEROL SULF 2.5 MG/3 ML PRE-MIX VIAL INH SCH ×2 (18:37→22:50)
[2021-03-16] MEDS: PREGABALIN 150 MG (LYRICA) CAPSULE PO SCH (22:06)
[2021-03-16] MEDS: DULoxetine 30 MG (CYMBALTA) CAP PO SCH (22:07)
[2021-03-16] MEDS: FAMOTIDINE 20 MG (PEPCID) TABLET PO SCH (22:07)
[2021-03-16] MEDS: MELATONIN 10 MG TABLET PO SCH (22:07)
[2021-03-16] MEDS: NYSTATIN CREAM (MYCOSTATIN) 30 GM TUBE TP SCH (22:09)
[2021-03-17] MEDS: RT-ALBUTEROL SULF 2.5 MG/3 ML PRE-MIX VIAL INH SCH ×6 (02:20→23:01)
[2021-03-17] MEDS: MEROPENEM 500 MG in WATER (STERILE) FOR INJECTION 10 ML IV SCH ×4 (03:11→21:15)
[2021-03-17 05:26] VITALS: BP 117/67
[2021-03-17] MEDS: LEVOTHYROXINE 125 MCG (LEVOTHROID) TABLET PO SCH (05:31)
[2021-03-17 05:46] LABS: HEMOGLOBIN 9.2 g/dL (13.3-17.7)
[2021-03-17] MEDS: OMEGA 3 (FISH OIL) 1000 MG CAP PO SCH (09:08)
[2021-03-17] MEDS: ASPIRIN 81 MG CHEW (CHILDREN'S ASA) PO SCH (09:08)
[2021-03-17] MEDS: FAMOTIDINE 20 MG (PEPCID) TABLET PO SCH ×2 (09:08→20:06)
[2021-03-17] MEDS: LACTOBACILLUS ACIDOPHILUS (PROBIOTIC) CAPSULE PO SCH ×3 (09:08→18:45)
[2021-03-17] MEDS: CLOPIDOGREL 75 MG (PLAVIX) TABLET PO SCH (09:08)
[2021-03-17] MEDS: NYSTATIN CREAM (MYCOSTATIN) 30 GM TUBE TP SCH ×3 (09:09→20:06)
[2021-03-17] MEDS: PREGABALIN 150 MG (LYRICA) CAPSULE PO SCH ×2 (09:21→20:06)
--- NOTE | 2021-03-17 09:44 | Physical Therapy Evaluation ---
PT Evaluation-General Medical Diagnosis Admission Date Mar 16, 2021 at 15:50 Medical Diagnosis: pneumonia Onset Date: Mar 16, 2021 Therapy Diagnosis Therapy Diagnosis: generalized weakness/debility Height/Weight Height (Feet): 5 Height (Inches): 11.00 Weight (Pounds): 282 Weight (Ounces): 0.0 Precautions Precautions/Isolations: Standard Precautions Referral Physician: Gamal Reason for Referral: Evaluation/Treatment Medical History Pertinent Medical History: CAD, DM, HTN, Hypothroidism, CA, Neuropathy Additional Medical History multiple hospital stays due to pneumonia Current History SWB status/recent CA/pneumonia Reviewed History: Yes Social History Home: Single Level Current Living Status: Other Family Entry Into Home: Level Entry Prior Prior Level of Function SCALE: Activities may be completed with or without assistive devices. 6-Vjnpthxmya-kfryfqy completes the activity by him/herself with no assistance from a helper. 5-Set-up or Clean-up Assistance-helper sets up or cleans up; patient completes activity. Wesley assists only prior to or following the activity. 4-Supervision or Touching Assistance-helper provides verbal cues and/or touching/steadying and/or contact guard assistance as patient completes activity. Assistance may be provided throughout the activity or intermittently. 3-Partial/Moderate Assistance-helper does LESS THAN HALF the effort. Wesley lifts, holds or supports trunk or limbs, but provides less than half the effort. 2-Substantial/Maximal Assistance-helper does MORE THAN HALF the effort. Wesley lifts or holds trunk or limbs and provides more than half the effort. 5-Yhkjtctrf-napqqm does ALL the effort. Patient does none of the effort to complete the activity. Or, the assistance of 2 or more helpers is required for the patient to complete the activity. If activity was not attempted, code reason: 7-Patient Refused. 9-Not Applicable-not attempted and the patient did not perform the activity before the current illness, exacerbation or injury. 10-Not Attempted due to Environmental Limitations-(lack of equipment, weather restraints, etc.). 88-Not Attempted due to Medical Conditions or Safety Concerns. Bed Mobility: 5 Transfers (B,C,W/C): 5 Gait: 5 (10-15' PLOF) Stairs: 9 Wheelchair Mobility: 4 Indoor Mobility (Ambulation): Needed Some Help Stairs: Not Applicalbe Prior Devices Use: Walker PT Evaluation-Current Subjective Patient agrees to PT. Objective Patient Orientation: Normal For Age Attachments: Oxygen, Anguiano Catheter ROM/Strength ROM Lower Extremities bilateral LE WFL Strength Lower Extremities 3-/5 grossly bilateral LE all planes Integumentary/Posture Integumentary refer to nursing notes (noted right heel redness and softness) Bladder Incontinence: Anguiano Cath Posture trunk flexed posture in stand to FWW Neuromuscular (Tone, Coordination, Reflexes) grossly intact Sensory Vision: Functional Hearing: Impaired Sensation Right Lower Extremit: Impaired Sensation Left Lower Extremity: Impaired Transfers Roll Left & Right (QC): 3 Sit to Lying (QC): 2 Lying to Sitting/Side of Bed(Q: 3 Sit to Stand (QC): 2 Chair/Sub-nu-Hzvhl Xfer(QC): 2 Toilet Transfer (QC): 2 Car Transfer (QC): 10 Gait Does the Patient Walk?: No and Walking Goal IS indicated Mode of Locomotion: Both Anticipated Mode of Locomotion: Both Walk 10 feet (QC): 88 Walk 50 ft with 2 Turns(QC): 88 Walk 150 ft (QC): 88 Walking 10ft/uneven surface-QC: 88 Distance: 5' Gait Assistive Device: FWW Comments/Gait Description unsteady gait/severely weak Wheelchair Training Wheel 50 ft with 2 turns (QC): 9 Wheel 150 ft (QC): 9 Type of Wheelchair: N/A Stairs 1 Step (curb) (QC): 9 4 Steps (QC): 9 12 Steps (QC): 9 Balance Sitting Static: Normal Sitting Dynamic: Normal Standing Static: Fair Standing Dynamic: Poor Picking up an Object (QC): 9 Treatment bilateral LE exercises AAROM AP, QS, HS, LAQ, toe/heel raises, hip flexion 15 reps Assessment/Needs 80 y.o. male, will benefit from skilled PT to address functional strength and mobility to improve current LOF to safely return to home at maximum LOF. Rehab Potential: Fair PT Fighting Vehicle Systems Maintainer Goals Fighting Vehicle Systems Maintainer Goals PT Group Home Goals Time Frame: Apr 11, 2021 Roll Left & Right (QC): 4 Sit to Lying (QC): 4 Lying-Sitting on Side/Bed(QC): 4 Sit to Stand (QC): 4 Chair/Xgs-ra-Spmgt Xfer(QC): 4 Toilet Transfer (QC): 4 Car Transfer (QC): 4 Does the Patient Walk: Yes Walk 10 feet (QC): 4 Walk 50ft with 2 Turns (QC): 4 Walk 150 ft (QC): 9 Walking 10ft on Uneven Surface: 4 1 Step (curb) (QC): 9 4 Steps (QC): 9 12 Steps (QC): 9 Picking up an Object (QC): 9 Wheel 50 feet with 2 turns (QC: 9 Type: N/A Wheel 150 feet: 9 Type: N/A PT Plan Problem List Problem List: Activity Tolerance, Functional Strength, Safety, Balance, Gait, Transfer, Bed Mobility Treatment/Plan Treatment Plan: Continue Plan of Care Treatment Plan: Bed Mobility, Education, Functional Activity Glenn, Functional Strength, Gait, Safety, Therapeutic Exercise, Transfers Treatment Duration: Apr 11, 2021 Frequency: 6 times per week Estimated Hrs Per Day: .25 hour per day Patient and/or Family Agrees t: Yes Time/GCodes Time In: 827 Time Out: 851 Total Billed Treatment Time: 24 Total Billed Treatment 1 visit EVModC 8 min EX 16 min CLAY HOLGUIN PT Mar 17, 2021 09:44
--- NOTE | 2021-03-17 09:57 | Occupational Therapy Eval ---
OT Evaluation-General/PLF Medical Diagnosis Admission Date Mar 16, 2021 at 15:50 Medical Diagnosis: pneumonia Onset Date: Mar 16, 2021 Therapy Diagnosis Therapy Diagnosis: Impaired adls, endurance, strength, balance Height/Weight Height (Feet): 5 Height (Inches): 11.00 Weight (Pounds): 282 Weight (Ounces): 0.0 Precautions Precautions/Isolations: Standard Precautions Referral Physician: Gamal Referral Reason: Evaluation/Treatment Medical History Pertinent Medical History: CAD, DM, HTN, Hypothroidism, IA, Neuropathy Current History SWB status secondary to worsening pneumonia. Pt reports living with in a house. Prior to multiple hospital admissions, he reports using a chair lift into the basement (where he was staying). On last d/c from hospital pt was only home for a few hours before returning. He states that he will no longer reside in the basement and will instead stay on the main level. He verbalizes that the bathroom is not big enough for his walker or w/c so he uses a commode and sponge bathes. He uses a w/c at baseline but is able to ambulate short distances with walker and transfer in/out of w/c without assist. His completes all IADLs and assists with bathing. He uses AE for LB dressing/bathing and reports buying new adaptive shoes that he can don without assist. He has a suprapubic catheter for past year. Reviewed History: Yes Social History Home: Single Level Current Living Status: Spouse Entry Into Home: Level Entry chair lift into basement ADL-Prior Level of Function SCALE: Activities may be completed with or without assistive devices. 5-Nbyxlcmzqx-dnzxpmg completes the activity by him/herself with no assistance from a helper. 5-Set-up or Clean-up Assistance-helper sets up or cleans up; patient completes activity. [place] assists only prior to or following the activity. 4-Supervision or Touching Assistance-helper provides verbal cues and/or touching/steadying and/or contact guard assistance as patient completes activity. Assistance may be provided throughout the activity or intermittently. 3-Partial/Moderate Assistance-helper does LESS THAN HALF the effort. [place] lifts, holds or supports trunk or limbs, but provides less than half the effort. 2-Substantial/Maximal Assistance-helper does MORE THAN HALF the effort. [place] lifts or holds trunk or limbs and provides more than half the effort. 5-Jzbogjhdy-bkvqqr does ALL the effort. Patient does none of the effort to co mplete the activity. Or, the assistance of 2 or more helpers is required for the patient to complete the activity. If activity was not attempted, code reason: 7-Patient Refused. 9-Not Applicable-not attempted and the patient did not perform the activity before the current illness, exacerbation or injury. 10-Not Attempted due to Environmental Limitations-(lack of equipment, weather restraints, etc.). 88-Not Attempted due to Medical Conditions or Safety Concerns. Self Care: Needed Some Help Functional Cognition: Needed Some Help DME/Equipment: Bedside Commode, Grab Bars, [address] Self: Yes OT Current Status Subjective Pt denies any pain, report anxiety about standing secondary to feeling very shaky with physical therapy earlier in am. Appearance Pt left sitting in chair, all needs within reach, RN notified. Mental Status/Objective Patient Orientation: Person, Place, Situation Attachments: Anguiano Catheter, IV, Oxygen Current Dentures/Partials: No Hand Dominance: Right Upper Extremity ROM Pt reports limited RUE shoulder ROM for past 2 years, denies fall or injury. Able to complete ~90 degrees AROM. . LUE shoulder flex ~3/4 AROM, full PROM. Bilateral Elbow-distally WFL Upper Extremity Strength RUE not tested due to pain LUE shoulder: 4/5 ADL-Treatment Eating (QC): 5 Oral Hygiene (QC): 5 Shower/Bathe Self (QC): 1 Upper Body Dressing (QC): 10 Lower Body Dressing (QC): 1 On/Off Footwear (QC): 7 Toileting Hygiene (QC): 1 Pt sitting in chair at OT arrival. Reports completing sponge bath with nursing staff earlier in am. Pt able to simulate task with dry washcloth. Pt able to bend at waist to reach mid calf, unable to reach feet. He reports owning a LHS at home to wash LB. Anticipate pt able to wash feet with use of AE. At this time pt is max a to stand and to maintain balance, unsteady on feet and unable to remove UE support from walker. Thus would require a second person to assist in cleaning backside for bathing or toileting. While sitting, he was able to demonstrate use of garden labourer to thread BLE's into shorts with extra time, min verbal cues. Shoes not donned, however pt reports buying a new adaptive shoe that he can slide heel into without use of AE. Pt sat in chair to brush teeth, set up only. Education OT Patient Education: Correct positioning, Disease process, Energy con servation, Modified ADL techniques, Progress toward Goal/Update tx plan, Purpose of tx/functional activities, Rehab process, Safety issues, Transfer techniques, Use of adapted equipment Teaching Recipient: Patient Teaching Methods: Demonstration, Discussion Response to Teaching: Verbalize Understanding, Return Demonstration, Reinforcement Needed OT Short Term Goals Short Term Goals Time Frame: Mar 31, 2021 Eatin Oral hygiene: 6 Toileting hygiene: 3 Shower/bathe self: 3 Upper body dressin Lower body dressin Putting on/taking off footwear: 3 OT Longterm Goals Longterm Goals Time Frame: Apr 07, 2021 Eating (QC): 6 Oral Hygiene (QC): 6 Toileting Hygiene (QC): 4 Shower/Bathe Self (QC): 4 Upper Body Dressing (QC): 4 Lower Body Dressing (QC): 4 On/Off Footwear (QC): 5 1=Demonstrate adherence to instructed precautions during ADL tasks. 2=Patient will verbalize/demonstrate understanding of assistive devices/modifications for ADL. 3=Patient will improve strength/tolerance for activity to enable patient to perform ADL's. OT Education/Plan Problem List/Assessment Assessment: Decreased Activ Tolerance, Decreased Safety Aware, Decreased UE Strength, Dependent Transfers, Impaired Bed Mobility, Impaired Funct Balance, Impaired Self-Care Skills, Restricted Funct UE ROM Discharge Recommendations Plan/Recommendations: Continue POC Therapy Discharge Recommendati: Assisted Living, Post Acute OT Treatment Plan/Plan of Care Treatment,Training & Education: Yes Patient would benefit from OT for education, treatment and training to promote independence in ADL's, mobility, safety and/or upper extremity function for ADL's. Plan of Care: ADL Retraining, Functional Mobility, Group Exercise/Act as Ind, UE Funct Exercise/Act, W/C Management Training Treatment Duration: Apr 07, 2021 Frequency: 5 times per week Estimated Hrs Per Day: .25 hour per day Agreement: Yes Rehab Potential: Poor Time/GCodes Start Time: 09:20 Stop Time: 09:50 Total Time Billed (hr/min): 30 Billed Treatment Time 1 visit, EVM (10 min) ADL (20 min) Karmen Hicks OT Mar 17, 2021 09:57
--- NOTE | 2021-03-17 14:21 | Progress Note - Cardiology ---
Cardiology SOAP Progress Note Subjective: In bed No c/o CP or SOB C/O fatigue Objective: I&O/Vital Signs 03/17/21 03/18/21 03/18/21 03/18/21 23:01 02:23 05:45 06:52 Temp 36.4 Pulse 80 Resp 20 B/P (MAP) 107/67 (80) Pulse Ox 92 91 95 95 O2 Delivery High Flow N/C OxyMask OxyMask OxyMask O2 Flow Rate 2.00 2.00 2.00 2.00 03/18/21 07:50 Pulse 82 Resp 18 B/P (MAP) 122/70 (87) Pulse Ox 92 O2 Delivery High Flow N/C O2 Flow Rate 2.00 03/18/21 00:00 Intake Total 840 ml Output Total 1000 ml Balance -160 ml Weight (Pounds): 282 Weight (Ounces): 0.0 Weight (Calculated Kilograms): 127.590663 Constitutional: AAO x 3, well-developed, well-nourished Respiratory: No accessory muscle use, No respiratory distress; chest expansion is symmetric, chest is bilaterally symmetric, rhonchi Cardiovascular: regular rate-rhythm; No JVD; S1 and S2, systolic murmur Gastrointestional: No tender; soft, audible bowel sounds Extremities: no lower extremity edema bilateral Neurologic/Psychiatric: grossly intact (moves all extremities) Skin: other (multiple small healing abrasions to LE bilat) Results/Procedures: Labs Laboratory Tests 03/18/21 05:15: White Blood Count 9.3, Red Blood Count 3.09L, Hemoglobin 8.7L, Hematocrit 28L, Mean Corpuscular Volume 90, Mean Corpuscular Hemoglobin 28, Mean Corpuscular Hemoglobin Concent 31L, Red Cell Distribution Width 16.9H, Platelet Count 158, Mean Platelet Volume 10.8, Immature Granulocyte % (Auto) 1, Neutrophils (%) (Auto) 77H, Lymphocytes (%) (Auto) 9L, Monocytes (%) (Auto) 6, Eosinophils (%) (Auto) 6, Basophils (%) (Auto) 1, Neutrophils # (Auto) 7.2, Lymphocytes # (Auto) 0.8L, Monocytes # (Auto) 0.6, Eosinophils # (Auto) 0.6H, Basophils # (Auto) 0.1, Immature Granulocyte # (Auto) 0.1, Sodium Level 138, Potassium Level 4.3, Chloride Level 102, Carbon Dioxide Level 28, Anion Gap 8, Blood Urea Nitrogen 11, Creatinine 0.63, Estimat Glomerular Filtration Rate 122, BUN/Creatinine Ratio 17, Glucose Level 105, Calcium Level 8.9 A/P: Assessment: Worsening anemia - possible GI bleed, managed by the Hospitalist Ru, s/p blood transfusion on 03/15/21 - H/H improved post transfusion Mild thrombocytopenia Acute on chronic resp failure - pneumonia - ac on chronic diastolic CHF CAD - s/p two cor stents in 1995 following VT, details unknown - NSTEMI on 03/13/21 - Card cath on 03/13/21: Coronary artery disease primarily consisting of 80% proximal to mid vessel stenosis of the right coronary artery that was successfully stented with Marlee 3.0 x 23 mm stent that was deployed at 20 atmospheres. The other coronary vessels have mild to moderate diffuse plaque. Aortic stenosis with a peak to peak pressure gradient of approximately 70 mmHg. Left ventricular end-diastolic pressure is 19 mmHg. Left ventricular ejection fraction is 50 to 55%. Aortic stenosis, severe. - Echo of 01/19/19: LVEF 70-75%, concentric LVH, mod dil of LA, severe (area 1.1), RVSP 20 mmHg - Echo of 09/08/20: LVEF 55-60%, grade 1 hong dysfxn, AoV could not be adequately interrogated, PASP 35-40 mmHg - Echo 09/30/20: LVEF 60-65%, mod (valve area 1.3 sq cm, mean peak grad 56, mean grad 34), PASP 25-30 mmHg - Echo of 03/14/21: LVEF: 50-55%, with valve area approx 1 sq cm and mean grad 45 mmHg, grade 1 diastolic dysfunction of LV Suprapubic cystostomy Quit smoking in 1995 H/o hypertension H/o hyperlipidemia LILIAN, non-compliant with CPAP Mild COPD on PFTs of Mar 2019 Carotid u/s of 04/19/19: mild bilateral carotid art disease without evidence of hemodynamic significance AAA screening scan of 04/19/19: no evidence of AAA DJD: bilat TKR in 2019 Chronic, bilat leg swelling due to venous insuff Plan: Plan: Complex management due to multiple comorbidities Monitor labs Management of pneumonia and anemia and thrombocytopenia and resp failure is by the Hospitalist Service MILAGROS FONTANEZ Mar 17, 2021 14:21
--- NOTE | 2021-03-17 14:25 | Progress Note - Cardiology ---
Cardiology SOAP Progress Note Subjective: No cp or palp or syncope Gen malaise and weakness present Shortness of breath is better No n/v/d Objective: I&O/Vital Signs 03/17/21 03/17/21 03/17/21 03/17/21 05:26 07:17 09:00 10:24 Temp 36.5 Pulse 82 Resp 20 B/P (MAP) 117/67 (84) Pulse Ox 97 95 95 O2 Delivery OxyMask High Flow N/C Nasal Cannula High Flow N/C O2 Flow Rate 4.00 2.00 2.00 2.00 03/17/21 00:00 Intake Total 400 ml Output Total 1025 ml Balance -625 ml Weight (Pounds): 282 Weight (Ounces): 0.0 Weight (Calculated Kilograms): 127.911825 Constitutional: AAO x 3, well-developed, well-nourished Respiratory: No accessory muscle use, No respiratory distress; chest expansion is symmetric, chest is bilaterally symmetric, rhonchi Cardiovascular: regular rate-rhythm; No JVD; S1 and S2, systolic murmur Gastrointestional: No tender; soft, audible bowel sounds Extremities: no lower extremity edema bilateral Neurologic/Psychiatric: grossly intact (moves all extremities) Skin: other (multiple small healing abrasions to LE bilat) Results/Procedures: Labs Laboratory Tests 03/17/21 05:27: Hemoglobin 9.2L, Hematocrit 30L A/P: Assessment: Anemia of undetermined etiology - possible GI bleed, managed by the Hospitalist Ru, s/p blood transfusion on 03/15/21 and 03/16/21 Mild thrombocytopenia Acute on chronic resp failure - pneumonia - ac on chronic diastolic CHF CAD - s/p two cor stents in 1995 following NM, details unknown - NSTEMI on 03/13/21 - Card cath on 03/13/21: Coronary artery disease primarily consisting of 80% proximal to mid vessel stenosis of the right coronary artery that was successfully stented with Marlee 3.0 x 23 mm stent that was deployed at 20 atmospheres. The other coronary vessels have mild to moderate diffuse plaque. A ortic stenosis with a peak to peak pressure gradient of approximately 70 mmHg. Left ventricular end-diastolic pressure is 19 mmHg. Left ventricular ejection fraction is 50 to 55%. Aortic stenosis, severe. - Echo of 01/19/19: LVEF 70-75%, concentric LVH, mod dil of LA, severe (area 1.1), RVSP 20 mmHg - Echo of 09/08/20: LVEF 55-60%, grade 1 hong dysfxn, AoV could not be adequately interrogated, PASP 35-40 mmHg - Echo 09/30/20: LVEF 60-65%, mod (valve area 1.3 sq cm, mean peak grad 56, mean grad 34), PASP 25-30 mmHg - Echo of 03/14/21: LVEF: 50-55%, with valve area approx 1 sq cm and mean grad 45 mmHg, grade 1 diastolic dysfunction of LV Suprapubic cystostomy Quit smoking in 1995 H/o hypertension H/o hyperlipidemia LILIAN, non-compliant with CPAP Mild COPD on PFTs of Mar 2019 Carotid u/s of 04/19/19: mild bilateral carotid art disease without evidence of hemodynamic significance AAA screening scan of 04/19/19: no evidence of AAA DJD: bilat TKR in 2019 Chronic, bilat leg swelling due to venous insuff Plan: Plan: Complex management due to multiple comorbidities Monitor labs Management of pneumonia and anemia and thrombocytopenia and resp failure is by the Hospitalist Service DONN THEODORE MD FACP FAC CCDS Mar 17, 2021 14:24
[2021-03-17] MEDS: CALCIUM CARBONATE 500 MG (TUMS) TAB.CHEW PO SCH (16:15)
[2021-03-17] MEDS: PANTOPRAZOLE 40 MG (PROTONIX) TAB PO SCH (16:15)
[2021-03-17 17:15] VITALS: BP 115/66
[2021-03-17] MEDS: DULoxetine 30 MG (CYMBALTA) CAP PO SCH (20:06)
[2021-03-17] MEDS: MELATONIN 10 MG TABLET PO SCH (20:06)
[2021-03-18] MEDS: RT-ALBUTEROL SULF 2.5 MG/3 ML PRE-MIX VIAL INH SCH ×5 (02:22→22:12)
[2021-03-18] MEDS: MEROPENEM 500 MG in WATER (STERILE) FOR INJECTION 10 ML IV SCH ×4 (03:25→21:17)
[2021-03-18 05:36] LABS: BASOPHILS # (AUTO) 0.1 10^3/uL (0.0-0.1); BASOPHILS % (AUTO) 1 % (0-10); EOSINOPHILS # (AUTO) 0.6 10^3/uL (0.0-0.3); EOSINOPHILS % (AUTO) 6 % (0-10); HEMATOCRIT 28 % (40-54); HEMOGLOBIN 8.7 g/dL (13.3-17.7); LYMPHOCYTES # (AUTO) 0.8 10^3/uL (1.0-4.0); LYMPHOCYTES % (AUTO) 9 % (12-44); MEAN CORPUSCULAR HEMOGLOBIN 28 pg (25-34); MEAN CORPUSCULAR HGB CONC 31 g/dL (32-36); MEAN CORPUSCULAR VOLUME 90 fL (80-99); MEAN PLATELET VOLUME 10.8 fL (9.0-12.2); MONOCYTES # (AUTO) 0.6 10^3/uL (0.0-1.0); MONOCYTES % (AUTO) 6 % (0-12); NEUTROPHILS # (AUTO) 7.2 10^3/uL (1.8-7.8); NEUTROPHILS % (AUTO) 77 % (42-75); PLATELET COUNT 158 10^3/uL (130-400); WHITE BLOOD COUNT 9.3 10^3/uL (4.3-11.0)
[2021-03-18] MEDS: LEVOTHYROXINE 125 MCG (LEVOTHROID) TABLET PO SCH (05:36)
[2021-03-18 05:45] VITALS: BP 107/67
[2021-03-18 05:51] LABS: POTASSIUM 4.3 MMOL/L (3.6-5.0)
[2021-03-18 05:52] LABS: CALCIUM 8.9 MG/DL (8.5-10.1)
[2021-03-18 05:57] LABS: CREATININE SERUM 0.63 MG/DL (0.60-1.30)
[2021-03-18 07:50] VITALS: BP 122/70
[2021-03-18] MEDS: PREGABALIN 150 MG (LYRICA) CAPSULE PO SCH ×2 (07:56→21:17)
[2021-03-18] MEDS: ASPIRIN 81 MG CHEW (CHILDREN'S ASA) PO SCH (07:57)
[2021-03-18] MEDS: NYSTATIN CREAM (MYCOSTATIN) 30 GM TUBE TP SCH ×2 (07:57→13:25)
[2021-03-18] MEDS: CLOPIDOGREL 75 MG (PLAVIX) TABLET PO SCH (07:57)
[2021-03-18] MEDS: OMEGA 3 (FISH OIL) 1000 MG CAP PO SCH (07:57)
[2021-03-18] MEDS: FAMOTIDINE 20 MG (PEPCID) TABLET PO SCH ×2 (07:57→21:17)
[2021-03-18] MEDS: LACTOBACILLUS ACIDOPHILUS (PROBIOTIC) CAPSULE PO SCH ×3 (07:57→18:10)
--- NOTE | 2021-03-18 09:30 | Physical Therapy Daily Note ---
PT Daily Note-Current Subjective Patient standing at the side of the bed with assist of 2 nurses when PT comes in. Patient agrees to PT, has no complaints of pain. Will perform transfer to commode and then attempt to ambulate to chair. Appearance Patient in chair at bedside post tx with nurse call, phone, tray, all needs met. Mental Status Patient Orientation: Person, Place, Situation Attachments: Oxygen, Anguiano Catheter Transfers SCALE: Activities may be completed with or without assistive devices. 2-Mxleedacdc-nibntqj completes the activity by him/herself with no assistance from a helper. 5-Set-up or Clean-up Assistance-helper sets up or cleans up; patient completes activity. [place] assists only prior to or following the activity. 4-Supervision or Touching Assistance-helper provides verbal cues and/or touching/steadying and/or contact guard assistance as patient completes activity. Assistance may be provided throughout the activity or intermittently. 3-Partial/Moderate Assistance-helper does LESS THAN HALF the effort. [place] lifts, holds or supports trunk or limbs, but provides less than half the effort. 2-Substantial/Maximal Assistance-helper does MORE THAN HALF the effort. [place] lifts or holds trunk or limbs and provides more than half the effort. 2-Unvzkzucl-cmhzmm does ALL the effort. Patient does none of the effort to complete the activity. Or, the assistance of 2 or more helpers is required for the patient to complete the activity. If activity was not attempted, code reason: 7-Patient Refused. 9-Not Applicable-not attempted and the patient did not perform the activity before the current illness, exacerbation or injury. 10-Not Attempted due to Environmental Limitations-(lack of equipment, weather restraints, etc.). 88-Not Attempted due to Medical Conditions or Safety Concerns. Sit to Stand (QC): 2 Chair/Rpq-fk-Efwoo Xfer(QC): 1 Patient is a stand pivot transfer assist of 2 to get to the commode. When done he stands with max assist of 1 to get cleaned and get bandage put on, he sits to rest and then stands again with max assist of 1, he takes about 2 steps toward the chair and states he can't go anymore, the chair is put behind him but before that can be done completely patient says "I can't do it anymore" and sits, he sits on the very edge of the chair, not enough to support him and he ends up having to sit on the nurse and therapists knees to keep from falling on the floor, other nurses are notified and they came in and assisted patient to get into the chair. Treatments transfers, toileting Assessment Current Status: Poor Progress Poor progress, not able to ambulate at all today, almost had a fall. PT Scalper Operator Goals Mcfp Goals PT Scalper Operator Goals Time Frame: Apr 11, 2021 Roll Left & Right (QC): 4 Sit to Lying (QC): 4 Lying-Sitting on Side/Bed(QC): 4 Sit to Stand (QC): 4 Chair/Alp-ih-Yfyrg Xfer(QC): 4 Toilet Transfer (QC): 4 Car Transfer (QC): 4 Does the Patient Walk: Yes Walk 10 feet (QC): 4 Walk 50ft with 2 Turns (QC): 4 Walk 150 ft (QC): 9 Walking 10ft on Uneven Surface: 4 1 Step (curb) (QC): 9 4 Steps (QC): 9 12 Steps (QC): 9 Picking up an Object (QC): 9 Wheel 50 feet with 2 turns (QC: 9 Type: N/A Wheel 150 feet: 9 Type: N/A PT Plan Problem List Problem List: Activity Tolerance, Functional Strength, Safety, Balance, Gait, Transfer, Bed Mobility, ROM Treatment/Plan Treatment Plan: Continue Plan of Care Treatment Plan: Bed Mobility, Education, Functional Activity Glenn, Functional Strength, Gait, Safety, Therapeutic Exercise, Transfers Treatment Duration: Apr 11, 2021 Frequency: 6 times per week Estimated Hrs Per Day: .25 hour per day Patient and/or Family Agrees t: Yes Safety Risks/Education Patient Education: Transfer Techniques, Correct Positioning, Safety Issues Teaching Recipient: Patient Teaching Methods: Demonstration, Discussion Response to Teaching: Reinforcement Needed Time/GCodes Time In: 900 Time Out: 918 Total Billed Treatment Time: 18 Total Billed Treatment 1 visit FA 18' MICHELLE FUNES PT Mar 18, 2021 09:30
--- NOTE | 2021-03-18 09:44 | Progress Note - Cardiology ---
Cardiology SOAP Progress Note Subjective: Sitting up in chair at the bedside States he legs became weak this morning when transferring from commode to chair resulting in a near fall No c/o CP, SOB or palpitations Objective: I&O/Vital Signs 03/18/21 03/18/21 03/18/21 03/18/21 05:45 06:52 07:50 09:00 Temp 36.4 Pulse 80 82 Resp 20 18 B/P (MAP) 107/67 (80) 122/70 (87) Pulse Ox 95 95 92 92 O2 Delivery OxyMask OxyMask High Flow N/C High Flow N/C O2 Flow Rate 2.00 2.00 2.00 2.00 03/18/21 03/18/21 10:09 14:29 Pulse Ox 93 95 O2 Delivery High Flow N/C High Flow N/C O2 Flow Rate 2.00 2.00 03/18/21 00:00 Intake Total 840 ml Output Total 1000 ml Balance -160 ml Weight (Pounds): 282 Weight (Ounces): 0.0 Weight (Calculated Kilograms): 127.571438 Constitutional: AAO x 3, well-developed, well-nourished Respiratory: No accessory muscle use, No respiratory distress; chest expansion is symmetric, chest is bilaterally symmetric, rhonchi Cardiovascular: regular rate-rhythm; No JVD; S1 and S2, systolic murmur Gastrointestional: No tender; soft, audible bowel sounds Extremities: no lower extremity edema bilateral Neurologic/Psychiatric: grossly intact (moves all extremities) Skin: other (multiple small healing abrasions to LE bilat) Results/Procedures: Labs Laboratory Tests 03/18/21 05:15: White Blood Count 9.3, Red Blood Count 3.09L, Hemoglobin 8.7L, Hematocrit 28L, Mean Corpuscular Volume 90, Mean Corpuscular Hemoglobin 28, Mean Corpuscular Hemoglobin Concent 31L, Red Cell Distribution Width 16.9H, Platelet Count 158, Mean Platelet Volume 10.8, Immature Granulocyte % (Auto) 1, Neutrophils (%) (Auto) 77H, Lymphocytes (%) (Auto) 9L, Monocytes (%) (Auto) 6, Eosinophils (%) (Auto) 6, Basophils (%) (Auto) 1, Neutrophils # (Auto) 7.2, Lymphocytes # (Auto) 0.8L, Monocytes # (Auto) 0.6, Eosinophils # (Auto) 0.6H, Basophils # (Auto) 0.1, Immature Granulocyte # (Auto) 0.1, Sodium Level 138, Potassium Level 4.3, Chloride Level 102, Carbon Dioxide Level 28, Anion Gap 8, Blood Urea Nitrogen 11, Creatinine 0.63, Estimat Glomerular Filtration Rate 122, BUN/Creatinine Ratio 17, Glucose Level 105, Calcium Level 8.9 A/P: Assessment: Anemia of undetermined etiology - possible GI bleed, managed by the Hospitalist Ru, s/p blood transfusion on 03/15/21 and 03/16/21 Mild thrombocytopenia - resolved Acute on chronic resp failure - pneumonia - ac on chronic diastolic CHF CAD - s/p two cor stents in 1995 following NM, details unknown - NSTEMI on 03/13/21 - Card cath on 03/13/21: Coronary artery disease primarily consisting of 80% proximal to mid vessel stenosis of the right coronary artery that was successfully stented with Marlee 3.0 x 23 mm stent that was deployed at 20 atmospheres. The other coronary vessels have mild to moderate diffuse plaque. Aortic stenosis with a peak to peak pressure gradient of approximately 70 mmHg. Left ventricular end-diastolic pressure is 19 mmHg. Left ventricular ejection fraction is 50 to 55%. Aortic stenosis, severe. - Echo of 01/19/19: LVEF 70-75%, concentric LVH, mod dil of LA, severe (area 1.1), RVSP 20 mmHg - Echo of 09/08/20: LVEF 55-60%, grade 1 hong dysfxn, AoV could not be adequately interrogated, PASP 35-40 mmHg - Echo 09/30/20: LVEF 60-65%, mod (valve area 1.3 sq cm, mean peak grad 56, mean grad 34), PASP 25-30 mmHg - Echo of 03/14/21: LVEF: 50-55%, with valve area approx 1 sq cm and mean grad 45 mmHg, grade 1 diastolic dysfunction of LV Suprapubic cystostomy Quit smoking in 1995 H/o hypertension H/o hyperlipidemia LILIAN, non-compliant with CPAP Mild COPD on PFTs of Mar 2019 Carotid u/s of 04/19/19: mild bilateral carotid art disease without evidence of hemodynamic significance AAA screening scan of 04/19/19: no evidence of AAA DJD: bilat TKR in 2019 Chronic, bilat leg swelling due to venous insuff Plan: Plan: Complex management due to multiple comorbidities Monitor labs Management of pneumonia and anemia and resp failure is by the Hospitalist Service Gen weakness - continue PT MILAGROS FONTANEZ Mar 18, 2021 09:44
--- NOTE | 2021-03-18 12:43 | Physical Therapy Daily Note ---
PT Daily Note-Current Subjective Patient in chair at bedside pre tx, agrees to PT, voices no complaints of pain. Patient would like to get back to bed. He says he doesn't think he will be able to stand and perform a transfer because he is tired from this morning. Appearance Patient in bed post tx with nurse call, phone, tray, all needs met, family in room. Mental Status Patient Orientation: Person, Place, Situation Attachments: Oxygen, Anguiano Catheter Transfers SCALE: Activities may be completed with or without assistive devices. 5-Atbomswfcj-mfyeelf completes the activity by him/herself with no assistance from a helper. 5-Set-up or Clean-up Assistance-helper sets up or cleans up; patient completes activity. [place] assists only prior to or following the activity. 4-Supervision or Touching Assistance-helper provides verbal cues and/or touching/steadying and/or contact guard assistance as patient completes activity. Assistance may be provided throughout the activity or intermittently. 3-Partial/Moderate Assistance-helper does LESS THAN HALF the effort. [place] lifts, holds or supports trunk or limbs, but provides less than half the effort. 2-Substantial/Maximal Assistance-helper does MORE THAN HALF the effort. [place] lifts or holds trunk or limbs and provides more than half the effort. 8-Utrmtsdhv-deqmxg does ALL the effort. Patient does none of the effort to complete the activity. Or, the assistance of 2 or more helpers is required for the patient to complete the activity. If activity was not attempted, code reason: 7-Patient Refused. 9-Not Applicable-not attempted and the patient did not perform the activity before the current illness, exacerbation or injury. 10-Not Attempted due to Environmental Limitations-(lack of equipment, weather restraints, etc.). 88-Not Attempted due to Medical Conditions or Safety Concerns. Roll Left & Right (QC): 3 Sit to Lying (QC): 3 Sit to Stand (QC): 1 Chair/Xcz-ox-Syekf Xfer(QC): 1 Used a sit to stand machine to stand patient and transfer him to bed, after sitting on the side of the bed he was able to lay down with mod assist (needs assist with both legs). Treatments bed mobility and transfers Assessment Current Status: Poor Progress dependent transfer with sit to stand machine PT Nursing Home Goals Leadership Development Instructor Goals PT Nursing Home Goals Time Frame: Apr 11, 2021 Roll Left & Right (QC): 4 Sit to Lying (QC): 4 Lying-Sitting on Side/Bed(QC): 4 Sit to Stand (QC): 4 Chair/Ovj-ee-Gcshl Xfer(QC): 4 Toilet Transfer (QC): 4 Car Transfer (QC): 4 Does the Patient Walk: Yes Walk 10 feet (QC): 4 Walk 50ft with 2 Turns (QC): 4 Walk 150 ft (QC): 9 Walking 10ft on Uneven Surface: 4 1 Step (curb) (QC): 9 4 Steps (QC): 9 12 Steps (QC): 9 Picking up an Object (QC): 9 Wheel 50 feet with 2 turns (QC: 9 Type: N/A Wheel 150 feet: 9 Type: N/A PT Plan Problem List Problem List: Activity Tolerance, Functional Strength, Safety, Balance, Gait, Transfer, Bed Mobility, ROM Treatment/Plan Treatment Plan: Continue Plan of Care Treatment Plan: Bed Mobility, Education, Functional Activity [place], Functional Strength, Gait, Safety, Therapeutic Exercise, Transfers Treatment Duration: Apr 11, 2021 Frequency: 6 times per week Estimated Hrs Per Day: .25 hour per day Patient and/or Family Agrees t: Yes Safety Risks/Education Patient Education: Transfer Techniques, Correct Positioning, Safety Issues Teaching Recipient: Patient Teaching Methods: Demonstration, Discussion Response to Teaching: Reinforcement Needed Time/GCodes Time In: 1200 Time Out: 1215 Total Billed Treatment Time: 15 Total Billed Treatment 1 visit FA 15' MICHELLE FUNES PT Mar 18, 2021 12:43
--- NOTE | 2021-03-18 13:50 | Occupational Ther Daily Note ---
OT Current Status-Daily Note Subjective Pt irritable at OT arrival, requires encouragement to participate. Appearance Pt left supine in bed, all needs within reach, daughter present in room. ADL-Treatment Therapy Code Descriptions/Definitions Functional [place] Measure: 0=Not Assessed/NA 4=Minimal Assistance 1=Total Assistance 5=Supervision or Setup 2=Maximal Assistance 6=Modified [place] 3=Moderate Assistance 7=Complete IndependenceSCALE: Activities may be completed with or without assistive devices. 9-Zifugpnwwt-jupuwhh completes the activity by him/herself with no assistance from a helper. 5-Set-up or Clean-up Assistance-helper sets up or cleans up; patient completes activity. [place] assists only prior to or following the activity. 4-Supervision or Touching Assistance-helper provides verbal cues and/or touching/steadying and/or contact guard assistance as patient completes activity. Assistance may be provided throughout the activity or intermittently. 3-Partial/Moderate Assistance-helper does LESS THAN HALF the effort. [place] lifts, holds or supports trunk or limbs, but provides less than half the effort. 2-Substantial/Maximal Assistance-helper does MORE THAN HALF the effort. [place] lifts or holds trunk or limbs and provides more than half the effort. 4-Yoxniwiak-mhdyzx does ALL the effort. Patient does none of the effort to complete the activity. Or, the assistance of 2 or more helpers is required for the patient to complete the activity. If activity was not attempted, code reason: 7-Patient Refused. 9-Not Applicable-not attempted and the patient did not perform the activity before the current illness, exacerbation or injury. 10-Not Attempted due to Environmental Limitations-(lack of equipment, weather restraints, etc.). 88-Not Attempted due to Medical Conditions or Safety Concerns. Other Treatment Pt supine in bed at OT arrival. Irritable. Reports almost falling during a transfer earlier in am and refuses any OOB/EOB activities. Requires encouragement to participate from both daughter and therapist. Pt reluctantly agreeable. Theraband exercises performed while reclined in bed. Pt already with yellow theraband and demonstrates no difficulty with exercises. OT issued pt new green band. With every movement, pt complaining on how he cannot "stretch" band as far as he could with the yellow band. OT attempts to educate patient. Pt easily agitated when OT cued pt to control speed and have constant tension throughout each movement. Green band may be too difficult for patient at this time and may benefit from red band during next session. 10 reps, 1 set in all planes. Education OT Patient Education: Correct positioning, Exercise program, Modified ADL techniques, Progress toward Goal/Update tx plan, Purpose of tx/functional activities Teaching Recipient: Patient Teaching Methods: Demonstration, Discussion Response to Teaching: Verbalize Understanding, Reinforcement Needed OT Short Term Goals Short Term Goals Time Frame: Mar 31, 2021 Eatin Oral hygiene: 6 Toileting hygiene: 3 Shower/bathe self: 3 Upper body dressin Lower body dressin Putting on/taking off footwear: 3 OT Penitentiary Goals Penitentiary Goals Time Frame: Apr 07, 2021 Eating (QC): 6 Oral Hygiene (QC): 6 Toileting Hygiene (QC): 4 Shower/Bathe Self (QC): 4 Upper Body Dressing (QC): 4 Lower Body Dressing (QC): 4 On/Off Footwear (QC): 5 1=Demonstrate adherence to instructed precautions during ADL tasks. 2=Patient will verbalize/demonstrate understanding of assistive devices/modifications for ADL. 3=Patient will improve strength/tolerance for activity to enable patient to perform ADL's. OT Education/Plan Problem List/Assessment Assessment: Decreased Activ Tolerance, Decreased Safety Aware, Decreased UE Strength, Dependent Transfers, Impaired Funct Balance, Impaired Self-Care Skills Discharge Recommendations Plan/Recommendations: Continue POC Treatment Plan/Plan of Care Treatment,Training & Education: Yes Patient would benefit from OT for education, treatment and training to promote independence in ADL's, mobility, safety and/or upper extremity function for ADL's. Plan of Care: ADL Retraining, Functional Mobility, Group Exercise/Act as Ind, UE Funct Exercise/Act, W/C Management Training Treatment Duration: Apr 07, 2021 Frequency: 5 times per week Estimated Hrs Per Day: .25 hour per day Agreement: Yes Rehab Potential: Poor Time/GCodes Start Time: 13:26 Stop Time: 13:41 Total Time Billed (hr/min): 15 Billed Treatment Time 1 visit, EX Karmen Hicks OT Mar 18, 2021 13:50
[2021-03-18] MEDS: CALCIUM CARBONATE 500 MG (TUMS) TAB.CHEW PO SCH (16:33)
[2021-03-18] MEDS: PANTOPRAZOLE 40 MG (PROTONIX) TAB PO SCH (16:33)
[2021-03-18 17:04] VITALS: BP 148/77
[2021-03-18] MEDS: MELATONIN 10 MG TABLET PO SCH (21:17)
[2021-03-18] MEDS: MICONAZOLE 2% POWDER (DESENEX AF) 90 GM TOP SCH (21:18)
[2021-03-18] MEDS: DULoxetine 30 MG (CYMBALTA) CAP PO SCH (21:18)
[2021-03-19] MEDS: RT-ALBUTEROL SULF 2.5 MG/3 ML PRE-MIX VIAL INH SCH ×6 (02:07→21:45)
[2021-03-19] MEDS: MEROPENEM 500 MG in WATER (STERILE) FOR INJECTION 10 ML IV SCH ×4 (04:51→21:51)
[2021-03-19 05:36] VITALS: BP 105/61
[2021-03-19] MEDS: LEVOTHYROXINE 125 MCG (LEVOTHROID) TABLET PO SCH (06:36)
[2021-03-19] MEDS: LACTOBACILLUS ACIDOPHILUS (PROBIOTIC) CAPSULE PO SCH ×3 (08:54→16:48)
[2021-03-19] MEDS: CLOPIDOGREL 75 MG (PLAVIX) TABLET PO SCH (08:54)
[2021-03-19] MEDS: FAMOTIDINE 20 MG (PEPCID) TABLET PO SCH ×2 (08:54→19:53)
[2021-03-19] MEDS: ASPIRIN 81 MG CHEW (CHILDREN'S ASA) PO SCH (08:54)
[2021-03-19] MEDS: OMEGA 3 (FISH OIL) 1000 MG CAP PO SCH (08:54)
[2021-03-19] MEDS: PREGABALIN 150 MG (LYRICA) CAPSULE PO SCH ×2 (08:54→19:53)
[2021-03-19 10:23] LABS: HEMOGLOBIN 9.4 g/dL (13.3-17.7)
[2021-03-19] MEDS: MICONAZOLE 2% POWDER (DESENEX AF) 90 GM TOP SCH ×2 (10:27→19:54)
--- NOTE | 2021-03-19 10:39 | Physical Therapy Daily Note ---
PT Daily Note-Current Subjective Patient agrees to PT. Mental Status Patient Orientation: Normal For Age Attachments: Oxygen, Anguiano Catheter Transfers SCALE: Activities may be completed with or without assistive devices. 8-Qrttpzxtck-ppxkctf completes the activity by him/herself with no assistance from a helper. 5-Set-up or Clean-up Assistance-helper sets up or cleans up; patient completes activity. [place] assists only prior to or following the activity. 4-Supervision or Touching Assistance-helper provides verbal cues and/or touching/steadying and/or contact guard assistance as patient completes activity. Assistance may be provided throughout the activity or intermittently. 3-Partial/Moderate Assistance-helper does LESS THAN HALF the effort. [place] l ifts, holds or supports trunk or limbs, but provides less than half the effort. 2-Substantial/Maximal Assistance-helper does MORE THAN HALF the effort. [place] lifts or holds trunk or limbs and provides more than half the effort. 5-Kkmurwjmc-lgwaul does ALL the effort. Patient does none of the effort to complete the activity. Or, the assistance of 2 or more helpers is required for t he patient to complete the activity. If activity was not attempted, code reason: 7-Patient Refused. 9-Not Applicable-not attempted and the patient did not perform the activity before the current illness, exacerbation or injury. 10-Not Attempted due to Environmental Limitations-(lack of equipment, weather restraints, etc.). 88-Not Attempted due to Medical Conditions or Safety Concerns. Lying to Sitting/Side of Bed(Q: 4 (SBA) Sit to Stand (QC): 2 (assist of 2) Chair/Nsm-ok-Ezxpr Xfer(QC): 2 (with use of FWW) Exercises Supine Ex: Ankle pumps (resistive), Heel Slides (resistive), Knee to chest (resistive) Supine Reps: 15 Seated Therapy Exercises: Long arc quads, Hip flexion Seated Reps: 15 Standing: Sit to Stand Standing Reps: 4 (assist of 2 to FWW) Assessment Patient making slow progress with gross motor skills. PT to continue to increase activity as tolerated by patient. PT Senior Living Goals Hospice Bereavement Coordinator Goals PT Senior Living Goals Time Frame: Apr 11, 2021 Roll Left & Right (QC): 4 Sit to Lying (QC): 4 Lying-Sitting on Side/Bed(QC): 4 Sit to Stand (QC): 4 Chair/Fwn-co-Buwwn Xfer(QC): 4 Toilet Transfer (QC): 4 Car Transfer (QC): 4 Does the Patient Walk: Yes Walk 10 feet (QC): 4 Walk 50ft with 2 Turns (QC): 4 Walk 150 ft (QC): 9 Walking 10ft on Uneven Surface: 4 1 Step (curb) (QC): 9 4 Steps (QC): 9 12 Steps (QC): 9 Picking up an Object (QC): 9 Wheel 50 feet with 2 turns (QC: 9 Type: N/A Wheel 150 feet: 9 Type: N/A PT Plan Treatment/Plan Treatment Plan: Continue Plan of Care Treatment Plan: Bed Mobility, Education, Functional Activity [place], Functional Strength, Gait, Safety, Therapeutic Exercise, Transfers Treatment Duration: Apr 11, 2021 Frequency: 6 times per week Estimated Hrs Per Day: .25 hour per day Patient and/or Family Agrees t: Yes Time/GCodes Time In: 853 Time Out: 916 Total Billed Treatment Time: 23 Total Billed Treatment 1 visit EX x 2 23 min CLAY HOLGUIN PT Mar 19, 2021 10:39
--- NOTE | 2021-03-19 13:21 | Occupational Ther Daily Note ---
OT Current Status-Daily Note Subjective Pt alert, sitting in chair when therapy entered. Daughter present in room. No c/o pain reported Mental Status/Objective Patient Orientation: Person, Place, Time, Situation Attachments: Anguiano Catheter, IV, Oxygen ADL-Treatment Therapy Code Descriptions/Definitions Functional [place] Measure: 0=Not Assessed/NA 4=Minimal Assistance 1=Total Assistance 5=Supervision or Setup 2=Maximal Assistance 6=Modified [place] 3=Moderate Assistance 7=Complete IndependenceSCALE: Activities may be completed with or without assistive devices. 6-Wqbbuzonho-thsdfdc completes the activity by him/herself with no assistance from a helper. 5-Set-up or Clean-up Assistance-helper sets up or cleans up; patient completes activity. [place] assists only prior to or following the activity. 4-Supervision or Touching Assistance-helper provides verbal cues and/or touching/steadying and/or contact guard assistance as patient completes activity. Assistance may be provided throughout the activity or intermittently. 3-Partial/Moderate Assistance-helper does LESS THAN HALF the effort. [place] lifts, holds or supports trunk or limbs, but provides less than half the effort. 2-Substantial/Maximal Assistance-helper does MORE THAN HALF the effort. [place] lifts or holds trunk or limbs and provides more than half the effort. 9-Dbnjldmwu-bibtfa does ALL the effort. Patient does none of the effort to complete the activity. Or, the assistance of 2 or more helpers is required for the patient to complete the activity. If activity was not attempted, code reason: 7-Patient Refused. 9-Not Applicable-not attempted and the patient did not perform the activity before the current illness, exacerbation or injury. 10-Not Attempted due to Environmental Limitations-(lack of equipment, weather restraints, etc.). 88-Not Attempted due to Medical Conditions or Safety Concerns. Skilled instruction provided of red theraband exercises for correct demonstration. Pt completed x2 sets of 10 reps of BUE red theraband exercises while seated in chair to increase activity tolerance and independence with ADLs. Pt required several prompts to begin 2nd set. Pt required resting break between sets due to fatigue. After therapy, pt sitting in chair and daughter still present. Call light within reach and all needs met. Education OT Patient Education: Exercise program, Home exercise program Teaching Recipient: Patient, Family Teaching Methods: Demonstration, Discussion Response to Teaching: Verbalize Understanding, Return Demonstration OT Short Term Goals Short Term Goals Time Frame: Mar 31, 2021 Eatin Oral hygiene: 6 Toileting hygiene: 3 Shower/bathe self: 3 Upper body dressin Lower body dressin Putting on/taking off footwear: 3 OT Shelter Goals Heavy Equipment Sales Manager Goals Time Frame: Apr 07, 2021 Eating (QC): 6 Oral Hygiene (QC): 6 Toileting Hygiene (QC): 4 Shower/Bathe Self (QC): 4 Upper Body Dressing (QC): 4 Lower Body Dressing (QC): 4 On/Off Footwear (QC): 5 1=Demonstrate adherence to instructed precautions during ADL tasks. 2=Patient will verbalize/demonstrate understanding of assistive devices/modifications for ADL. 3=Patient will improve strength/tolerance for activity to enable patient to perform ADL's. OT Education/Plan Problem List/Assessment Assessment: Decreased Activ Tolerance, Decreased UE Strength, Impaired Self- Care Skills Discharge Recommendations Plan/Recommendations: Continue POC Treatment Plan/Plan of Care Patient would benefit from OT for education, treatment and training to promote independence in ADL's, mobility, safety and/or upper extremity function for ADL's. Plan of Care: ADL Retraining, Functional Mobility, Group Exercise/Act as Ind, UE Funct Exercise/Act, W/C Management Training Treatment Duration: Apr 07, 2021 Frequency: 5 times per week Estimated Hrs Per Day: .25 hour per day Agreement: Yes Rehab Potential: Poor Time/GCodes Start Time: 12:55 Stop Time: 13:10 Total Time Billed (hr/min): 15 Billed Treatment Time 1 visit- EX 1 (15 mins) TRISTA OLEA Mar 19, 2021 13:21
--- NOTE | 2021-03-19 14:02 | Progress Note - Hospitalist ---
Subjective HPI/CC On Admission Date Seen by Provider: Mar 19, 2021 Time Seen by Provider: 10:25 Subjective/Events-last exam He says that he is not feeling well today. He says he is feeling weak. He is not having breathing trouble. He has not had a big appetite but he has been eating some. He has been working with therapy. Objective Exam Vital Signs Vital Signs Date Time Temp Pulse Resp B/P (MAP) Pulse Ox O2 Delivery O2 Flow Rate FiO2 03/19/21 10:58 97 High Flow N/C 2.00 03/19/21 05:36 35.6 74 16 105/61 (76) Capillary Refill : General Appearance: No Apparent Distress, Chronically ill, Obese Respiratory: Lungs Clear, Normal Breath Sounds, No Respiratory Distress Cardiovascular: Regular Rate, Rhythm, No Murmur Gastrointestinal: Normal Bowel Sounds, Non Tender, Soft Extremity: Normal Inspection, Non Tender, Pedal Edema Neurologic/Psychiatric: Alert, Oriented x3, Depressed Affect, Motor Weakness Skin: Normal Color, Warm/Dry Results/Procedures Lab Laboratory Tests 03/19/21 10:05 Patient resulted labs reviewed. Assessment/Plan Assessment and Plan Assess & Plan/Chief Complaint Chronic hypoxic respiratory failure Pneumonia Oxygen requirements at baseline Continue [place] NSTEMI CAD HTN Aortic stenosis Continue DAPT Anemia Fecal occult blood positive Baseline around 9-10 Hgb improved post-transfusion, 9.4 today No indication for further transfusion No evidence of significant ongoing bleeding Hypothyroidism BPH s/p SPT Continue home meds when able Obesity Clinically significant, no acute management needs Critical illness myopathy Recurrent pneumonia PT/OT DVT prophylaxis: SCDs Acute hypoxic respiratory failure, resolved Diagnosis/Problems Diagnosis/Problems (1) Recurrent pneumonia Status: Acute (2) Pneumonia Status: Acute (3) Acute on chronic respiratory failure with hypoxia Status: Acute (4) NSTEMI (non-ST elevated myocardial infarction) Status: Acute (5) CAD (coronary artery disease) Status: Chronic (6) Essential hypertension Status: Chronic (7) BPH (benign prostatic hyperplasia) Status: Chronic (8) Hypothyroidism Status: Chronic (9) Obesity Status: Chronic (10) Critical illness myopathy Status: Acute NAREN MCMAHON MD Mar 19, 2021 14:01
--- NOTE | 2021-03-19 14:26 | Physical Therapy Daily Note ---
PT Daily Note-Current Subjective Patient agrees to PT. Mental Status Patient Orientation: Normal For Age Attachments: Oxygen, Anguiano Catheter Transfers SCALE: Activities may be completed with or without assistive devices. 9-Aosmzhyesx-jbaprpz completes the activity by him/herself with no assistance from a helper. 5-Set-up or Clean-up Assistance-helper sets up or cleans up; patient completes activity. [place] assists only prior to or following the activity. 4-Supervision or Touching Assistance-helper provides verbal cues and/or touching/steadying and/or contact guard assistance as patient completes activity. Assistance may be provided throughout the activity or intermittently. 3-Partial/Moderate Assistance-helper does LESS THAN HALF the effort. [place] l ifts, holds or supports trunk or limbs, but provides less than half the effort. 2-Substantial/Maximal Assistance-helper does MORE THAN HALF the effort. [place] lifts or holds trunk or limbs and provides more than half the effort. 0-Gdosozwgb-srlvkr does ALL the effort. Patient does none of the effort to complete the activity. Or, the assistance of 2 or more helpers is required for t he patient to complete the activity. If activity was not attempted, code reason: 7-Patient Refused. 9-Not Applicable-not attempted and the patient did not perform the activity before the current illness, exacerbation or injury. 10-Not Attempted due to Environmental Limitations-(lack of equipment, weather restraints, etc.). 88-Not Attempted due to Medical Conditions or Safety Concerns. Sit to Lying (QC): 4 (SBA) Sit to Stand (QC): 2 Chair/Wdd-tb-Oyvqs Xfer(QC): 2 Exercises Supine Ex: Quad Set, Heel Slides, Straight leg raise Supine Reps: 15 Seated Therapy Exercises: Long arc quads Seated Reps: 15 Assessment Patient requires time to complete all functional tasks. Patient improving slowly with treatment plan. PT Bending Machine Operator Goals Correction Goals PT Bending Machine Operator Goals Time Frame: Apr 11, 2021 Roll Left & Right (QC): 4 Sit to Lying (QC): 4 Lying-Sitting on Side/Bed(QC): 4 Sit to Stand (QC): 4 Chair/Hzz-dg-Tskbb Xfer(QC): 4 Toilet Transfer (QC): 4 Car Transfer (QC): 4 Does the Patient Walk: Yes Walk 10 feet (QC): 4 Walk 50ft with 2 Turns (QC): 4 Walk 150 ft (QC): 9 Walking 10ft on Uneven Surface: 4 1 Step (curb) (QC): 9 4 Steps (QC): 9 12 Steps (QC): 9 Picking up an Object (QC): 9 Wheel 50 feet with 2 turns (QC: 9 Type: N/A Wheel 150 feet: 9 Type: N/A PT Plan Treatment/Plan Treatment Plan: Continue Plan of Care Treatment Plan: Bed Mobility, Education, Functional Activity [place], Functional Strength, Gait, Safety, Therapeutic Exercise, Transfers Treatment Duration: Apr 11, 2021 Frequency: 6 times per week Estimated Hrs Per Day: .25 hour per day Patient and/or Family Agrees t: Yes Time/GCodes Time In: 1300 Time Out: 1323 Total Billed Treatment Time: 23 Total Billed Treatment 1 visit EX x 2 23 min CLAY HOLGUIN PT Mar 19, 2021 14:25
[2021-03-19 16:00] VITALS: BP 106/53
[2021-03-19] MEDS: CALCIUM CARBONATE 500 MG (TUMS) TAB.CHEW PO SCH (16:48)
[2021-03-19] MEDS: PANTOPRAZOLE 40 MG (PROTONIX) TAB PO SCH (16:48)
[2021-03-19 18:13] VITALS: BP 106/53
[2021-03-19] MEDS: DULoxetine 30 MG (CYMBALTA) CAP PO SCH (19:53)
[2021-03-19] MEDS: MELATONIN 10 MG TABLET PO SCH (22:24)
[2021-03-20] MEDS: RT-ALBUTEROL SULF 2.5 MG/3 ML PRE-MIX VIAL INH SCH ×3 (02:06→21:20)
[2021-03-20] MEDS: MEROPENEM 500 MG in WATER (STERILE) FOR INJECTION 10 ML IV SCH ×4 (03:07→22:22)
[2021-03-20] MEDS: LEVOTHYROXINE 125 MCG (LEVOTHROID) TABLET PO SCH (05:35)
[2021-03-20 06:00] VITALS: BP_SYST 106; BP_SYST 118; BP_DIAS 53; BP_DIAS 56
[2021-03-20 06:10] LABS: HEMOGLOBIN 8.8 g/dL (13.3-17.7)
[2021-03-20] MEDS ORDERED: RT-ALBUTEROL SULF 2.5 MG/3 ML PRE-MIX VIAL INH PRN (06:15)
[2021-03-20] MEDS: FAMOTIDINE 20 MG (PEPCID) TABLET PO SCH ×2 (08:46→22:21)
[2021-03-20] MEDS: ASPIRIN 81 MG CHEW (CHILDREN'S ASA) PO SCH (08:46)
[2021-03-20] MEDS: MICONAZOLE 2% POWDER (DESENEX AF) 90 GM TOP SCH ×2 (08:46→22:22)
[2021-03-20] MEDS: OMEGA 3 (FISH OIL) 1000 MG CAP PO SCH (08:46)
[2021-03-20] MEDS: PREGABALIN 150 MG (LYRICA) CAPSULE PO SCH ×2 (08:46→22:21)
[2021-03-20] MEDS: CLOPIDOGREL 75 MG (PLAVIX) TABLET PO SCH (08:46)
[2021-03-20] MEDS: LACTOBACILLUS ACIDOPHILUS (PROBIOTIC) CAPSULE PO SCH ×3 (08:46→16:51)
--- NOTE | 2021-03-20 09:27 | Physical Therapy Daily Note ---
PT Daily Note-Current Subjective Patient agrees to PT. Mental Status Patient Orientation: Normal For Age Attachments: Oxygen, Suprapubic Catheter Transfers SCALE: Activities may be completed with or without assistive devices. 6-Lbmqhdnqsk-zehvryp completes the activity by him/herself with no assistance from a helper. 5-Set-up or Clean-up Assistance-helper sets up or cleans up; patient completes activity. [place] assists only prior to or following the activity. 4-Supervision or Touching Assistance-helper provides verbal cues and/or touching/steadying and/or contact guard assistance as patient completes activity. Assistance may be provided throughout the activity or intermittently. 3-Partial/Moderate Assistance-helper does LESS THAN HALF the effort. [place] lifts, holds or supports trunk or limbs, but provides less than half the effort. 2-Substantial/Maximal Assistance-helper does MORE THAN HALF the effort. [place] lifts or holds trunk or limbs and provides more than half the effort. 6-Okgzynvtr-zevwef does ALL the effort. Patient does none of the effort to complete the activity. Or, the assistance of 2 or more helpers is required for the patient to complete the activity. If activity was not attempted, code reason: 7-Patient Refused. 9-Not Applicable-not attempted and the patient did not perform the activity before the current illness, exacerbation or injury. 10-Not Attempted due to Environmental Limitations-(lack of equipment, weather restraints, etc.). 88-Not Attempted due to Medical Conditions or Safety Concerns. Lying to Sitting/Side of Bed(Q: 2 Sit to Stand (QC): 2 (x 2) Chair/Jxn-jp-Pqbpt Xfer(QC): 2 (x 2) Exercises Supine Ex: Ankle pumps, Quad Set, Heel Slides, Straight leg raise Supine Reps: 15 Seated Therapy Exercises: Long arc quads, Hip flexion Seated Reps: 15 Standing: Sit to Stand (4 sets to FWW) Assessment Current Status: Poor Progress Patient requires max assist of 2 for sit to stand and transfer to chair with use of FWW. Patient progressing very slowly. PT Laborer Goals Laborer Goals PT Jail Goals Time Frame: Apr 11, 2021 Roll Left & Right (QC): 4 Sit to Lying (QC): 4 Lying-Sitting on Side/Bed(QC): 4 Sit to Stand (QC): 4 Chair/Hhj-jj-Inxwt Xfer(QC): 4 Toilet Transfer (QC): 4 Car Transfer (QC): 4 Does the Patient Walk: Yes Walk 10 feet (QC): 4 Walk 50ft with 2 Turns (QC): 4 Walk 150 ft (QC): 9 Walking 10ft on Uneven Surface: 4 1 Step (curb) (QC): 9 4 Steps (QC): 9 12 Steps (QC): 9 Picking up an Object (QC): 9 Wheel 50 feet with 2 turns (QC: 9 Type: N/A Wheel 150 feet: 9 Type: N/A PT Plan Treatment/Plan Treatment Plan: Continue Plan of Care Treatment Plan: Bed Mobility, Education, Functional Activity [place], Functional Strength, Gait, Safety, Therapeutic Exercise, Transfers Treatment Duration: Apr 11, 2021 Frequency: 6 times per week Estimated Hrs Per Day: .25 hour per day Patient and/or Family Agrees t: Yes Time/GCodes Time In: 825 Time Out: 848 Total Billed Treatment Time: 23 Total Billed Treatment 1 visit EX x 2 23 min CLAY HOLGUIN PT Mar 20, 2021 09:27
--- NOTE | 2021-03-20 09:54 | Occupational Ther Daily Note ---
OT Current Status-Daily Note Subjective Pt reports feeling down as he is aware that he is getting weaker. Appearance Left sitting up in chair, all needs within reach. Mental Status/Objective Patient Orientation: Person, Place, Time, Situation Attachments: Anguiano Catheter, IV ADL-Treatment Therapy Code Descriptions/Definitions Functional [place] Measure: 0=Not Assessed/NA 4=Minimal Assistance 1=Total Assistance 5=Supervision or Setup 2=Maximal Assistance 6=Modified [place] 3=Moderate Assistance 7=Complete IndependenceSCALE: Activities may be completed with or without assistive devices. 8-Qiptkxrbpq-iclzjbr completes the activity by him/herself with no assistance from a helper. 5-Set-up or Clean-up Assistance-helper sets up or cleans up; patient completes activity. [place] assists only prior to or following the activity. 4-Supervision or Touching Assistance-helper provides verbal cues and/or touching/steadying and/or contact guard assistance as patient completes activity. Assistance may be provided throughout the activity or intermittently. 3-Partial/Moderate Assistance-helper does LESS THAN HALF the effort. [place] lifts, holds or supports trunk or limbs, but provides less than half the effort. 2-Substantial/Maximal Assistance-helper does MORE THAN HALF the effort. [place] l ifts or holds trunk or limbs and provides more than half the effort. 2-Olhvqqjrt-aivawj does ALL the effort. Patient does none of the effort to complete the activity. Or, the assistance of 2 or more helpers is required for the patient to complete the activity. If activity was not attempted, code reason: 7-Patient Refused. 9-Not Applicable-not attempted and the patient did not perform the activity before the current illness, exacerbation or injury. 10-Not Attempted due to Environmental Limitations-(lack of equipment, weather restraints, etc.). 88-Not Attempted due to Medical Conditions or Safety Concerns. Other Treatment Per physical therapy, pt required 2 PT's to transfer patient this date. Increased weakness exhibited in legs. Pt remained in chair for UE exercises. Focus on triceps to assist in pushing up from surfaces during transfers. Pt does better with red theraband this date, mod reminders/cues on keeping tension throughout full movement. 10 x2 in all planes. Short rest break in between sets. Education OT Patient Education: Correct positioning, Exercise program, Progress toward Goal/Update tx plan, Purpose of tx/functional activities, Rehab process, Safety issues Teaching Recipient: Patient Teaching Methods: Demonstration, Discussion Response to Teaching: Verbalize Understanding, Return Demonstration, Reinforcement Needed OT Short Term Goals Short Term Goals Time Frame: Mar 31, 2021 Eatin Oral hygiene: 6 Toileting hygiene: 3 Shower/bathe self: 3 Upper body dressin Lower body dressin Putting on/taking off footwear: 3 OT Surgical Rn Goals Usp Goals Time Frame: Apr 07, 2021 Eating (QC): 6 Oral Hygiene (QC): 6 Toileting Hygiene (QC): 4 Shower/Bathe Self (QC): 4 Upper Body Dressing (QC): 4 Lower Body Dressing (QC): 4 On/Off Footwear (QC): 5 1=Demonstrate adherence to instructed precautions during ADL tasks. 2=Patient will verbalize/demonstrate understanding of assistive devices/modifications for ADL. 3=Patient will improve strength/tolerance for activity to enable patient to perform ADL's. OT Education/Plan Problem List/Assessment Assessment: Decreased Activ Tolerance, Decreased UE Strength, Dependent Transfers, Impaired Bed Mobility, Impaired Funct Balance, Impaired I ADL's, Impaired Self-Care Skills Discharge Recommendations Plan/Recommendations: Continue POC Treatment Plan/Plan of Care Treatment,Training & Education: Yes Patient would benefit from OT for education, treatment and training to promote independence in ADL's, mobility, safety and/or upper extremity function for ADL's. Plan of Care: ADL Retraining, Functional Mobility, Group Exercise/Act as Ind, UE Funct Exercise/Act, W/C Management Training Treatment Duration: Apr 07, 2021 Frequency: 5 times per week Estimated Hrs Per Day: .25 hour per day Agreement: Yes Rehab Potential: Poor Time/GCodes Start Time: 09:34 Stop Time: 09:49 Total Time Billed (hr/min): 15 Billed Treatment Time 1 visit, EX Karmen Hicks OT Mar 20, 2021 09:54
--- NOTE | 2021-03-20 13:18 | Physical Therapy Daily Note ---
PT Daily Note-Current Subjective Patient agrees to PT. Mental Status Patient Orientation: Normal For Age Attachments: Oxygen, Suprapubic Catheter Transfers SCALE: Activities may be completed with or without assistive devices. 2-Xhespxybcc-gdprdiu completes the activity by him/herself with no assistance from a helper. 5-Set-up or Clean-up Assistance-helper sets up or cleans up; patient completes activity. [place] assists only prior to or following the activity. 4-Supervision or Touching Assistance-helper provides verbal cues and/or touching/steadying and/or contact guard assistance as patient completes activity. Assistance may be provided throughout the activity or intermittently. 3-Partial/Moderate Assistance-helper does LESS THAN HALF the effort. [place] lifts, holds or supports trunk or limbs, but provides less than half the effort. 2-Substantial/Maximal Assistance-helper does MORE THAN HALF the effort. [place] lifts or holds trunk or limbs and provides more than half the effort. 7-Rjtszayam-hznbem does ALL the effort. Patient does none of the effort to complete the activity. Or, the assistance of 2 or more helpers is required for the patient to complete the activity. If activity was not attempted, code reason: 7-Patient Refused. 9-Not Applicable-not attempted and the patient did not perform the activity before the current illness, exacerbation or injury. 10-Not Attempted due to Environmental Limitations-(lack of equipment, weather restraints, etc.). 88-Not Attempted due to Medical Conditions or Safety Concerns. Exercises Supine Ex: Ankle pumps, Quad Set, Glut sets, Heel Slides, Straight leg raise, Hip abd/add Supine Reps: 15 (bilaterally) Assessment Patient completed 1 set of exercises and did not want to continue. PT to increase activity as tolerated by patient. PT Senior Care Goals Hotel Room Attendant Goals PT Senior Care Goals Time Frame: Apr 11, 2021 Roll Left & Right (QC): 4 Sit to Lying (QC): 4 Lying-Sitting on Side/Bed(QC): 4 Sit to Stand (QC): 4 Chair/Tvn-mf-Xyjde Xfer(QC): 4 Toilet Transfer (QC): 4 Car Transfer (QC): 4 Does the Patient Walk: Yes Walk 10 feet (QC): 4 Walk 50ft with 2 Turns (QC): 4 Walk 150 ft (QC): 9 Walking 10ft on Uneven Surface: 4 1 Step (curb) (QC): 9 4 Steps (QC): 9 12 Steps (QC): 9 Picking up an Object (QC): 9 Wheel 50 feet with 2 turns (QC: 9 Type: N/A Wheel 150 feet: 9 Type: N/A PT Plan Treatment/Plan Treatment Plan: Continue Plan of Care Treatment Plan: Bed Mobility, Education, Functional Activity Glenn, Functional Strength, Gait, Safety, Therapeutic Exercise, Transfers Treatment Duration: Apr 11, 2021 Frequency: 6 times per week Estimated Hrs Per Day: .25 hour per day Patient and/or Family Agrees t: Yes Time/GCodes Time In: 1300 Time Out: 1310 Total Billed Treatment Time: 10 Total Billed Treatment 1 visit EX 10 min CLAY HOLGUIN PT Mar 20, 2021 13:18
--- NOTE | 2021-03-20 15:27 | Progress Note - Cardiology ---
Cardiology SOAP Progress Note Subjective: No cp or palp or syncope Chronic exertional shortness of breath No n/v/d Gen weakness and malaise present Objective: I&O/Vital Signs 03/20/21 03/20/21 03/20/21 03/20/21 06:00 06:00 06:55 09:00 Temp 36.1 36.6 Pulse 83 84 Resp 18 B/P (MAP) 118/56 (76) Pulse Ox 90 95 91 O2 Delivery High Flow N/C OxyMask High Flow N/C O2 Flow Rate 2.00 1.00 2.00 03/20/21 00:00 Intake Total 1450 ml Output Total 1750 ml Balance -300 ml Weight (Pounds): 282 Weight (Ounces): 0.0 Weight (Calculated Kilograms): 127.662692 Constitutional: AAO x 3, well-developed, well-nourished Respiratory: No accessory muscle use, No respiratory distress; chest expansion is symmetric, chest is bilaterally symmetric, rhonchi Cardiovascular: regular rate-rhythm; No JVD; S1 and S2, systolic murmur Gastrointestional: No tender; soft, audible bowel sounds Extremities: swelling (moderate, bilateral leg swelling) Neurologic/Psychiatric: other (moves all limbs equally) Skin: other (multiple small healing abrasions to LE bilat) Results/Procedures: Labs Laboratory Tests 03/20/21 05:20: Hemoglobin 8.8L, Hematocrit 29L Laboratory Tests 03/19/21 10:05 03/20/21 05:20 A/P: Assessment: Anemia of undetermined etiology - possible GI bleed, managed by the Hospitalist Ru, s/p blood transfusion on 03/15/21 and 03/16/21. H/H appears stable since transfusions Mild thrombocytopenia - resolved Acute on chronic resp failure - pneumonia - ac on chronic diastolic CHF CAD - s/p two cor stents in 1995 following [place], details unknown - NSTEMI on 03/13/21 - Card cath on 03/13/21: Coronary artery disease primarily consisting of 80% proximal to mid vessel stenosis of the right coronary artery that was successfully stented with Marlee 3.0 x 23 mm stent that was deployed at 20 atmospheres. The other coronary vessels have mild to moderate diffuse plaque. Aortic stenosis with a peak to peak pressure gradient of approximately 70 mmHg. Left ventricular end-diastolic pressure is 19 mmHg. Left ventricular ejection fraction is 50 to 55%. Aortic stenosis, severe. - Echo of 01/19/19: LVEF 70-75%, concentric LVH, mod dil of LA, severe (area 1.1), RVSP 20 mmHg - Echo of 09/08/20: LVEF 55-60%, grade 1 hong dysfxn, AoV could not be adequately interrogated, PASP 35-40 mmHg - Echo 09/30/20: LVEF 60-65%, mod (valve area 1.3 sq cm, mean peak grad 56, mean grad 34), PASP 25-30 mmHg - Echo of 03/14/21: LVEF: 50-55%, with valve area approx 1 sq cm and mean grad 45 mmHg, grade 1 diastolic dysfunction of LV Suprapubic cystostomy Quit smoking in 1995 H/o hypertension H/o hyperlipidemia LILIAN, non-compliant with CPAP Mild COPD on PFTs of Mar 2019 Carotid u/s of 04/19/19: mild bilateral carotid art disease without evidence of hemodynamic significance AAA screening scan of 04/19/19: no evidence of AAA DJD: bilat TKR in 2019 Chronic, bilat leg swelling due to venous insuff Plan: Complex management due to multiple comorbidities Monitor labs Management of pneumonia and anemia and resp failure is by the Hospitalist Service Gen weakness - continue PT DONN THEODORE MD FACP FAC CCDS Mar 20, 2021 15:27
[2021-03-20] MEDS: CALCIUM CARBONATE 500 MG (TUMS) TAB.CHEW PO SCH (16:51)
[2021-03-20] MEDS: PANTOPRAZOLE 40 MG (PROTONIX) TAB PO SCH (16:51)
[2021-03-20 17:42] VITALS: BP 128/60
[2021-03-20] MEDS: MELATONIN 10 MG TABLET PO SCH (22:21)
[2021-03-20] MEDS: DULoxetine 30 MG (CYMBALTA) CAP PO SCH (22:21)
[2021-03-21] MEDS: MEROPENEM 500 MG in WATER (STERILE) FOR INJECTION 10 ML IV SCH ×4 (05:17→21:00)
[2021-03-21 05:19] VITALS: BP 109/65
[2021-03-21] MEDS: LEVOTHYROXINE 125 MCG (LEVOTHROID) TABLET PO SCH (06:30)
[2021-03-21 06:59] LABS: HEMOGLOBIN 9.2 g/dL (13.3-17.7)
[2021-03-21] MEDS: RT-ALBUTEROL SULF 2.5 MG/3 ML PRE-MIX VIAL INH SCH ×2 (08:24→21:08)
[2021-03-21] MEDS: LACTOBACILLUS ACIDOPHILUS (PROBIOTIC) CAPSULE PO SCH ×3 (08:54→17:20)
[2021-03-21] MEDS: MICONAZOLE 2% POWDER (DESENEX AF) 90 GM TOP SCH ×2 (08:55→21:12)
[2021-03-21] MEDS: OMEGA 3 (FISH OIL) 1000 MG CAP PO SCH (08:55)
[2021-03-21] MEDS: CLOPIDOGREL 75 MG (PLAVIX) TABLET PO SCH (08:55)
[2021-03-21] MEDS: PREGABALIN 150 MG (LYRICA) CAPSULE PO SCH ×2 (08:55→20:59)
[2021-03-21] MEDS: ASPIRIN 81 MG CHEW (CHILDREN'S ASA) PO SCH (08:55)
[2021-03-21] MEDS: FAMOTIDINE 20 MG (PEPCID) TABLET PO SCH ×2 (08:55→21:00)
--- NOTE | 2021-03-21 11:28 | Cardiology Progress Note ---
Progress Note-Cardiology Events since last exam Date Seen by Provider: Mar 21, 2021 Time Seen by Provider: 11:24 Events since last exam We are following him due to coronary artery disease with non-ST elevation my ocardial infarction among other cardiac issues. He was sitting up in a chair watching television. He denies chest discomfort. He feels as though his breathing is gradually improving. His chronic, mild ankle edema is unchanged. He denies palpitations or syncope. Vitals Last set of Vitals Signs Vital Signs 03/21/21 03/21/21 03/21/21 05:19 08:27 09:28 Temp 36.3 Pulse 66 Resp 18 B/P (MAP) 109/65 (80) Pulse Ox 92 O2 Delivery High Flow N/C O2 Flow Rate 2.00 Labs Labs Laboratory Tests 03/21/21 06:10 Exam Vital Signs Vital Signs Date Time Temp Pulse Resp B/P (MAP) Pulse Ox O2 Delivery O2 Flow Rate FiO2 03/21/21 09:28 High Flow N/C 2.00 03/21/21 08:27 92 03/21/21 05:19 36.3 66 18 109/65 (80) Physical Exam General: Alert. No acute distress. He is obese. Eye: No xanthelasma. HENT: Normocephalic. Neck: Jugular venous pressure does not appear elevated. Respiratory: Lungs have crackles at the right base. Respirations are non- labored. Breath sounds are equal. Symmetrical chest wall expansion. Cardiovascular: Normal rate. Regular rhythm. 3/6 systolic ejection murmur. No gallop. Trace bilateral pretibial edema. Gastrointestinal: Soft. Normal bowel sounds. Skin: Warm. Dry. Neurologic: Alert and oriented to person, place, time. Cranial nerves 3-11 grossly intact. Psychiatric: Cooperative. Appropriate mood & affect. Labs Laboratory Tests Test 03/21/21 06:10 Range/Units Hemoglobin 9.2 L 13.3-17.7 g/dL Hematocrit 31 L 40-54 % Diagnosis/Problems Diagnosis/Problems (1) Non-ST elevation myocardial infarction (NSTEMI), initial care episode Assessment & Plan: No recurrent angina. Continue aspirin, clopidogrel, and statin medication. Beta-dannielle has not been prescribed due to his previous sepsis. (2) Aortic stenosis Assessment & Plan: This is severe. This will need to be followed longitudinally. There are no plans for valve replacement in the near future. He would need to be completely recovered from all infections before even considering valve replacement. (3) Mixed hyperlipidemia Assessment & Plan: Continue statin medication. (4) Anemia Status: Acute Assessment & Plan: Exact etiology unclear. This appears to have stabilized. (5) Type 2 diabetes mellitus with complication Assessment & Plan: This is being managed by the hospitalist. (6) Obesity Status: Chronic Assessment & Plan: He needs to work on weight loss LEATHA MEDRANO JR, MD Mar 21, 2021 11:28
--- NOTE | 2021-03-21 11:57 | Physical Therapy Daily Note ---
PT Daily Note-Current Subjective Patient lying supine in bed upon PT arrival, agreeable to treatment. Reports no pain currently. Mental Status Patient Orientation: Person Transfers SCALE: Activities may be completed with or without assistive devices. 0-Hwwbtravib-gccjiwr completes the activity by him/herself with no assistance from a helper. 5-Set-up or Clean-up Assistance-helper sets up or cleans up; patient completes activity. [place] assists only prior to or following the activity. 4-Supervision or Touching Assistance-helper provides verbal cues and/or touching/steadying and/or contact guard assistance as patient completes activity. Assistance may be provided throughout the activity or intermittently. 3-Partial/Moderate Assistance-helper does LESS THAN HALF the effort. [place] lifts, holds or supports trunk or limbs, but provides less than half the effort. 2-Substantial/Maximal Assistance-helper does MORE THAN HALF the effort. [place] lifts or holds trunk or limbs and provides more than half the effort. 7-Xoeowwfqt-xznaka does ALL the effort. Patient does none of the effort to complete the activity. Or, the assistance of 2 or more helpers is required for the patient to complete the activity. If activity was not attempted, code reason: 7-Patient Refused. 9-Not Applicable-not attempted and the patient did not perform the activity before the current illness, exacerbation or injury. 10-Not Attempted due to Environmental Limitations-(lack of equipment, weather restraints, etc.). 88-Not Attempted due to Medical Conditions or Safety Concerns. Roll Left & Right (QC): 3 Sit to Lying (QC): 3 Lying to Sitting/Side of Bed(Q: 3 Sit to Stand (QC): 3 Chair/Cdk-ew-[place] Xfer(QC): 3 Gait Training Does the Patient Walk?: Yes Distance: 3 feet Gait Persons Needed: 1 Gait Assistive Device: FWW Exercises Seated Therapy Exercises: Ankle pumps, Long arc quads, Hip flexion, Hamstring Curls, Hip abd/add Seated Reps: 20 Treatments Visit, Ex, FA Assessment Current Status: Fair Progress Patient tolerated treatment fair. Patient able to perform all observed bed mobility and transfers with min/mod A, if given ample time. Patient ambulates 3 feet with FWW, with mod A to the chair. He is only able to perform short, quick steps, but displays improved balance compared to last PT treatment. Patient performed LE exercise as listed above. Patient performed sit to stand x 2 with mod A. Patient in chair post treatment with all needs met, nursing notified, call light in hand and family in the room. PT Intermediate Goals Intermediate Goals PT Soaker Soda Worker Goals Time Frame: Apr 11, 2021 Roll Left & Right (QC): 4 Sit to Lying (QC): 4 Lying-Sitting on Side/Bed(QC): 4 Sit to Stand (QC): 4 Chair/Wdz-lg-Kprnh Xfer(QC): 4 Toilet Transfer (QC): 4 Car Transfer (QC): 4 Does the Patient Walk: Yes Walk 10 feet (QC): 4 Walk 50ft with 2 Turns (QC): 4 Walk 150 ft (QC): 9 Walking 10ft on Uneven Surface: 4 1 Step (curb) (QC): 9 4 Steps (QC): 9 12 Steps (QC): 9 Picking up an Object (QC): 9 Wheel 50 feet with 2 turns (QC: 9 Type: N/A Wheel 150 feet: 9 Type: N/A PT Plan Treatment/Plan Treatment Plan: Continue Plan of Care Treatment Plan: Bed Mobility, Education, Functional Activity Glenn, Functional Strength, Gait, Safety, Therapeutic Exercise, Transfers Treatment Duration: Apr 11, 2021 Frequency: 6 times per week Estimated Hrs Per Day: .25 hour per day Patient and/or Family Agrees t: Yes Safety Risks/Education Patient Education: Transfer Techniques, Safety Issues Teaching Recipient: Patient, Family Teaching Methods: Demonstration, Discussion Response to Teaching: Verbalize Understanding, Return Demonstration Time/GCodes Time In: 1011 Time Out: 1036 Total Billed Treatment Time: 25 Total Billed Treatment Visit, FA, SHAWN LIMON PT Mar 21, 2021 11:57
[2021-03-21 12:08] LABS: TRIGLYCERIDES 108 MG/DL (<150); VLDL CHOLESTEROL 22 MG/DL (5-40)
[2021-03-21 12:13] LABS: CHOLESTEROL 128 MG/DL (< 200)
[2021-03-21 12:14] LABS: HDL CHOLESTEROL 38 MG/DL (40-60)
[2021-03-21 13:09] LABS: FREE T4 (FREE THYROXINE) 1.21 NG/DL (0.70-1.48)
--- NOTE | 2021-03-21 15:50 | Diagnostic Imaging Report ---
EXAMINATION: Chest (PA and lateral). CLINICAL INDICATION: 80-year-old male, shortness of breath. COMPARISON: March 07, 2021. FINDINGS: There are bilateral interstitial and/or alveolar opacities. There is interval decrease in consolidation in the lateral aspect of the left lung since the comparison exam. There is redemonstrated elevation of the left hemidiaphragm. Heart size and mediastinal contours are grossly unchanged. There is no identified pneumothorax. There is no sizable layering pleural effusion. There are dilated segments of bowel in the left upper quadrant which measure up to 5 cm in diameter. IMPRESSION: Multifocal bilateral interstitial and/or alveolar opacities with interval improved recently noted peripheral consolidation in the left lung. Dictated by: Dictated on workstation # [id number]
[2021-03-21] MEDS: CALCIUM CARBONATE 500 MG (TUMS) TAB.CHEW PO SCH (17:20)
[2021-03-21] MEDS: PANTOPRAZOLE 40 MG (PROTONIX) TAB PO SCH (17:20)
[2021-03-21 18:00] VITALS: BP 118/58
[2021-03-21] MEDS: MIRTAZAPINE 15 MG (REMERON) TAB PO SCH (20:59)
[2021-03-21] MEDS: MELATONIN 10 MG TABLET PO SCH (20:59)
[2021-03-21] MEDS: DULoxetine 30 MG (CYMBALTA) CAP PO SCH (21:00)
--- NOTE | 2021-03-21 21:33 | Progress Note - Hospitalist ---
Subjective HPI/CC On Admission Date Seen by Provider: Mar 21, 2021 Time Seen by Provider: 09:45 Subjective/Events-last exam He is sleeping on my arrival. He says he is still feeling tired. He is not short of breath. He has been working with therapy. He has no other complaints or concerns. Objective Exam Vital Signs Vital Signs Date Time Temp Pulse Resp B/P (MAP) Pulse Ox O2 Delivery O2 Flow Rate FiO2 03/21/21 21:08 92 Nasal Cannula 1.00 03/21/21 18:00 37.0 96 20 118/58 (78) Capillary Refill : General Appearance: No Apparent Distress, Chronically ill, Obese Respiratory: Lungs Clear, Normal Breath Sounds, No Respiratory Distress Cardiovascular: Regular Rate, Rhythm, No Edema, No Murmur Gastrointestinal: Normal Bowel Sounds, Non Tender, Soft Extremity: Normal Inspection, Non Tender, Pedal Edema Neurologic/Psychiatric: Alert, Oriented x3, Motor Weakness Skin: Normal Color, Warm/Dry Results/Procedures Lab Laboratory Tests 03/21/21 06:10 Patient resulted labs reviewed. Assessment/Plan Assessment and Plan Assess & Plan/Chief Complaint Chronic hypoxic respiratory failure Pneumonia Oxygen requirements at baseline Continue [place] NSTEMI CAD HTN Aortic stenosis Continue DAPT Anemia Fecal occult blood positive Baseline around 9-10 Hgb stable post-transfusion, 9.2 today No indication for further transfusion No evidence of significant ongoing bleeding Plan for outpatient colonoscopy Iron infusion Hypothyroidism BPH s/p SPT Continue home meds when able Thyroid labs within normal limits Obesity Clinically significant, no acute management needs Critical illness myopathy Recurrent pneumonia PT/OT DVT prophylaxis: SCDs Acute hypoxic respiratory failure, resolved Diagnosis/Problems Diagnosis/Problems (1) Recurrent pneumonia Status: Acute (2) Pneumonia Status: Acute (3) Acute on chronic respiratory failure with hypoxia Status: Acute (4) NSTEMI (non-ST elevated myocardial infarction) Status: Acute (5) CAD (coronary artery disease) Status: Chronic (6) Essential hypertension Status: Chronic (7) BPH (benign prostatic hyperplasia) Status: Chronic (8) Hypothyroidism Status: Chronic (9) Obesity Status: Chronic (10) Critical illness myopathy Status: Acute NAREN MCMAHON MD Mar 21, 2021 21:33
[2021-03-22] MEDS: MEROPENEM 500 MG in WATER (STERILE) FOR INJECTION 10 ML IV SCH ×4 (04:29→21:07)
[2021-03-22 05:28] VITALS: BP 112/60
[2021-03-22] MEDS: LEVOTHYROXINE 125 MCG (LEVOTHROID) TABLET PO SCH (06:33)
[2021-03-22] MEDS: RT-ALBUTEROL SULF 2.5 MG/3 ML PRE-MIX VIAL INH SCH ×2 (08:42→21:10)
[2021-03-22] MEDS: PREGABALIN 150 MG (LYRICA) CAPSULE PO SCH ×2 (08:50→20:04)
[2021-03-22] MEDS: LACTOBACILLUS ACIDOPHILUS (PROBIOTIC) CAPSULE PO SCH ×3 (08:50→17:09)
[2021-03-22] MEDS: FAMOTIDINE 20 MG (PEPCID) TABLET PO SCH ×2 (08:50→20:04)
[2021-03-22] MEDS: MICONAZOLE 2% POWDER (DESENEX AF) 90 GM TOP SCH ×2 (08:51→20:05)
[2021-03-22] MEDS: CLOPIDOGREL 75 MG (PLAVIX) TABLET PO SCH (08:51)
[2021-03-22] MEDS: OMEGA 3 (FISH OIL) 1000 MG CAP PO SCH (08:51)
[2021-03-22] MEDS: ASPIRIN 81 MG CHEW (CHILDREN'S ASA) PO SCH (08:51)
[2021-03-22] MEDS ORDERED: EPINEPHrine INJECTION 1 MG/ML AMP IM PRN (09:00)
[2021-03-22] MEDS ORDERED: IRON DEXTRAN INJECTION 25 MG in NS (IVPB) 5.75 ML IV ONE (09:00)
[2021-03-22] MEDS ORDERED: IRON DEXTRAN INJECTION 1,000 MG in NS (IVPB) 250 ML IV ONE (09:00)
[2021-03-22] MEDS ORDERED: NS IV 500 ML 500 ML IV SCH (09:00)
[2021-03-22] MEDS ORDERED: HYDROCORTISONE 100 MG/2 ML (Solu-CORTEF) VIAL IV PRN (09:00)
[2021-03-22] MEDS ORDERED: RT-ALBUTEROL SULF 2.5 MG/3 ML PRE-MIX VIAL IH PRN (09:00)
[2021-03-22] MEDS ORDERED: diphenhydrAMINE 50 MG/ML INJ (BENADRYL) IV PRN (09:00)
[2021-03-22] MEDS: PANTOPRAZOLE 40 MG (PROTONIX) TAB PO SCH (17:09)
[2021-03-22] MEDS: CALCIUM CARBONATE 500 MG (TUMS) TAB.CHEW PO SCH (17:09)
[2021-03-22 17:20] VITALS: BP 122/57
[2021-03-22] MEDS: MIRTAZAPINE 15 MG (REMERON) TAB PO SCH (20:04)
[2021-03-22] MEDS: DULoxetine 30 MG (CYMBALTA) CAP PO SCH (20:04)
[2021-03-22] MEDS: MELATONIN 10 MG TABLET PO SCH (20:04)
[2021-03-23] MEDS: MEROPENEM 500 MG in WATER (STERILE) FOR INJECTION 10 ML IV SCH ×2 (03:56→09:44)
[2021-03-23 05:17] VITALS: BP 124/60
[2021-03-23] MEDS: LEVOTHYROXINE 125 MCG (LEVOTHROID) TABLET PO SCH (06:05)
[2021-03-23] MEDS: RT-ALBUTEROL SULF 2.5 MG/3 ML PRE-MIX VIAL INH SCH ×2 (08:11→19:20)
[2021-03-23] MEDS: CLOPIDOGREL 75 MG (PLAVIX) TABLET PO SCH (08:50)
[2021-03-23] MEDS: PREGABALIN 150 MG (LYRICA) CAPSULE PO SCH ×2 (08:50→20:55)
[2021-03-23] MEDS: FAMOTIDINE 20 MG (PEPCID) TABLET PO SCH ×2 (08:50→20:55)
[2021-03-23] MEDS: LACTOBACILLUS ACIDOPHILUS (PROBIOTIC) CAPSULE PO SCH ×3 (08:50→16:52)
[2021-03-23] MEDS: MICONAZOLE 2% POWDER (DESENEX AF) 90 GM TOP SCH ×2 (08:50→20:55)
[2021-03-23] MEDS: ASPIRIN 81 MG CHEW (CHILDREN'S ASA) PO SCH (08:50)
[2021-03-23] MEDS: OMEGA 3 (FISH OIL) 1000 MG CAP PO SCH (08:51)
--- NOTE | 2021-03-23 09:38 | Physical Therapy Daily Note ---
PT Daily Note-Current Subjective Patient agrees to PT. Mental Status Patient Orientation: Normal For Age Attachments: Oxygen, Suprapubic Catheter Transfers SCALE: Activities may be completed with or without assistive devices. 3-Uvshnjiqea-dxugxep completes the activity by him/herself with no assistance from a helper. 5-Set-up or Clean-up Assistance-helper sets up or cleans up; patient completes activity. [place] assists only prior to or following the activity. 4-Supervision or Touching Assistance-helper provides verbal cues and/or touching/steadying and/or contact guard assistance as patient completes activity. Assistance may be provided throughout the activity or intermittently. 3-Partial/Moderate Assistance-helper does LESS THAN HALF the effort. [place] lifts, holds or supports trunk or limbs, but provides less than half the effort. 2-Substantial/Maximal Assistance-helper does MORE THAN HALF the effort. [place] lifts or holds trunk or limbs and provides more than half the effort. 8-Izrfxrxxf-fuvlit does ALL the effort. Patient does none of the effort to complete the activity. Or, the assistance of 2 or more helpers is required for the patient to complete the activity. If activity was not attempted, code reason: 7-Patient Refused. 9-Not Applicable-not attempted and the patient did not perform the activity before the current illness, exacerbation or injury. 10-Not Attempted due to Environmental Limitations-(lack of equipment, weather restraints, etc.). 88-Not Attempted due to Medical Conditions or Safety Concerns. Sit to Stand (QC): 4 Gait Training Distance: 10' x 3 Walk 10 feet (QC): 4 (CGA with use of gait belt and follow with w/c) Gait Assistive Device: FWW slow, shuffle gait sequence Exercises Seated Therapy Exercises: Long arc quads, Hip flexion Seated Reps: 15 Standing: Sit to Stand (5 sets to FWW) Assessment Patient improving with treatment plan. Ambulated 10' x 3 sets CGA with close follow with w/c. Sit to stand SBA. PT Senior Care Goals Quality Systems Engineer Goals PT Quality Systems Engineer Goals Time Frame: Apr 11, 2021 Roll Left & Right (QC): 4 Sit to Lying (QC): 4 Lying-Sitting on Side/Bed(QC): 4 Sit to Stand (QC): 4 Chair/Ggf-ed-Cxlbj Xfer(QC): 4 Toilet Transfer (QC): 4 Car Transfer (QC): 4 Does the Patient Walk: Yes Walk 10 feet (QC): 4 Walk 50ft with 2 Turns (QC): 4 Walk 150 ft (QC): 9 Walking 10ft on Uneven Surface: 4 1 Step (curb) (QC): 9 4 Steps (QC): 9 12 Steps (QC): 9 Picking up an Object (QC): 9 Wheel 50 feet with 2 turns (QC: 9 Type: N/A Wheel 150 feet: 9 Type: N/A PT Plan Treatment/Plan Treatment Plan: Continue Plan of Care Treatment Plan: Bed Mobility, Education, Functional Activity Glenn, Functional Strength, Gait, Safety, Therapeutic Exercise, Transfers Treatment Duration: Apr 11, 2021 Frequency: 6 times per week Estimated Hrs Per Day: .25 hour per day Patient and/or Family Agrees t: Yes Time/GCodes Time In: 918 Time Out: 935 Total Billed Treatment Time: 17 Total Billed Treatment 1 visit FA 17 min CLAY HOLGUIN PT Mar 23, 2021 09:38
--- NOTE | 2021-03-23 10:07 | Progress Note - Hospitalist ---
Subjective HPI/CC On Admission Date Seen by Provider: Mar 23, 2021 Time Seen by Provider: 10:02 Subjective/Events-last exam Pt reports feeling ok but tired. States he was up a lot over the night between labs draws and vitals checks so he didn't sleep well. Objective Exam Vital Signs Vital Signs Date Time Temp Pulse Resp B/P (MAP) Pulse Ox O2 Delivery O2 Flow Rate FiO2 03/23/21 08:59 High Flow N/C 1.00 03/23/21 08:11 91 03/23/21 05:17 36.4 72 18 124/60 (81) Capillary Refill : General Appearance: No Apparent Distress, Chronically ill Respiratory: Lungs Clear, No Respiratory Distress Cardiovascular: Regular Rate, Rhythm, Systolic Murmur Gastrointestinal: Normal Bowel Sounds, Non Tender, Soft Neurologic/Psychiatric: Alert, Oriented x3 Results/Procedures Lab Laboratory Tests 03/23/21 05:15 Patient resulted labs reviewed. Assessment/Plan Assessment and Plan Assess & Plan/Chief Complaint Chronic hypoxic respiratory failure Pneumonia Oxygen requirements actually below baseline at 1lpm [place] to complete today, will transition to oral antibiotics and monitor on this NSTEMI CAD HTN Aortic stenosis Continue DAPT Anemia Fecal occult blood positive Baseline around 9-10 Hgb stable post-transfusion, 9.0 today Will DC daily checks No indication for further transfusion No evidence of significant ongoing bleeding Plan for outpatient colonoscopy Iron infusion 03/22 Hypothyroidism BPH s/p SPT Continue home meds when able Thyroid labs within normal limits Obesity Clinically significant, no acute management needs Critical illness myopathy Recurrent pneumonia PT/OT DVT prophylaxis: SCDs Acute hypoxic respiratory failure, resolved LIZANDRO LENTZ MD Mar 23, 2021 10:07
--- NOTE | 2021-03-23 11:48 | Occupational Ther Daily Note ---
OT Current Status-Daily Note Subjective Pt alert, sitting in w/c. Pt agrees to therapy. No c/o pain. Mental Status/Objective Patient Orientation: Person, Place, Time, Situation Attachments: Anguiano Catheter, IV ADL-Treatment Therapy Code Descriptions/Definitions Functional [place] Measure: 0=Not Assessed/NA 4=Minimal Assistance 1=Total Assistance 5=Supervision or Setup 2=Maximal Assistance 6=Modified [place] 3=Moderate Assistance 7=Complete IndependenceSCALE: Activities may be completed with or without assistive devices. 9-Jtzknapihc-igwacbe completes the activity by him/herself with no assistance from a helper. 5-Set-up or Clean-up Assistance-helper sets up or cleans up; patient completes activity. [place] assists only prior to or following the activity. 4-Supervision or Touching Assistance-helper provides verbal cues and/or touching/steadying and/or contact guard assistance as patient completes activity. Assistance may be provided throughout the activity or intermittently. 3-Partial/Moderate Assistance-helper does LESS THAN HALF the effort. [place] lifts, holds or supports trunk or limbs, but provides less than half the effort. 2-Substantial/Maximal Assistance-helper does MORE THAN HALF the effort. [place] lifts or holds trunk or limbs and provides more than half the effort. 1-Rkdujtysf-xioqqn does ALL the effort. Patient does none of the effort to complete the activity. Or, the assistance of 2 or more helpers is required for the patient to complete the activity. If activity was not attempted, code reason: 7-Patient Refused. 9-Not Applicable-not attempted and the patient did not perform the activity before the current illness, exacerbation or injury. 10-Not Attempted due to Environmental Limitations-(lack of equipment, weather restraints, etc.). 88-Not Attempted due to Medical Conditions or Safety Concerns. Other Treatment Skilled instruction for B UE exercises using 3# hand wts to increase B UE strength for daily functional tasks. Pt requires verbal and gestural cues to complete correct technique and form when complete exercises, elbow flex/ext working on bicep/tricep, modified B shldr horizontal abd/add, B UE shldr presses working on shldr flexion for strength and AROM. 3 sets 10 reps for all except last B shldr horizontal abd/add only completed 6 with last set. Pt fatigued, but tolerated well. After session, ppt sitting in w/c. Call light/phone in reach. All needs met in room. Education OT Patient Education: Exercise program Teaching Recipient: Patient Teaching Methods: Demonstration, Discussion Response to Teaching: Verbalize Understanding, Return Demonstration, Reinforcement Needed OT Short Term Goals Short Term Goals Time Frame: Mar 31, 2021 Eatin Oral hygiene: 6 Toileting hygiene: 3 Shower/bathe self: 3 Upper body dressin Lower body dressin Putting on/taking off footwear: 3 OT Assisted Goals Assisted Goals Time Frame: Apr 07, 2021 Eating (QC): 6 Oral Hygiene (QC): 6 Toileting Hygiene (QC): 4 Shower/Bathe Self (QC): 4 Upper Body Dressing (QC): 4 Lower Body Dressing (QC): 4 On/Off Footwear (QC): 5 1=Demonstrate adherence to instructed precautions during ADL tasks. 2=Patient will verbalize/demonstrate understanding of assistive devices/ modifications for ADL. 3=Patient will improve strength/tolerance for activity to enable patient to perform ADL's. OT Education/Plan Problem List/Assessment Assessment: Decreased Activ Tolerance, Decreased UE Strength, Impaired Self- Care Skills, Restricted Funct UE ROM Discharge Recommendations Plan/Recommendations: Continue POC Treatment Plan/Plan of Care Patient would benefit from OT for education, treatment and training to promote independence in ADL's, mobility, safety and/or upper extremity function for ADL's. Plan of Care: ADL Retraining, Functional Mobility, Group Exercise/Act as Ind, UE Funct Exercise/Act, W/C Management Training Treatment Duration: Apr 07, 2021 Frequency: 5 times per week Estimated Hrs Per Day: .25 hour per day Agreement: Yes Rehab Potential: Poor Time/GCodes Start Time: 11:15 Stop Time: 11:30 Total Time Billed (hr/min): 15 Billed Treatment Time 1 visit-EX 1 (15 min) CIRO PIÑA Mar 23, 2021 11:48
--- NOTE | 2021-03-23 14:04 | Physical Therapy Daily Note ---
PT Daily Note-Current Subjective Patient had just returned to bed via RN. Agrees to exercises. Mental Status Patient Orientation: Normal For Age Attachments: Oxygen, Suprapubic Catheter Transfers SCALE: Activities may be completed with or without assistive devices. 5-Xaasvfqkcb-lukoxwx completes the activity by him/herself with no assistance from a helper. 5-Set-up or Clean-up Assistance-helper sets up or cleans up; patient completes activity. [place] assists only prior to or following the activity. 4-Supervision or Touching Assistance-helper provides verbal cues and/or touching/steadying and/or contact guard assistance as patient completes activity. Assistance may be provided throughout the activity or intermittently. 3-Partial/Moderate Assistance-helper does LESS THAN HALF the effort. [place] lifts, holds or supports trunk or limbs, but provides less than half the effort. 2-Substantial/Maximal Assistance-helper does MORE THAN HALF the effort. [place] lifts or holds trunk or limbs and provides more than half the effort. 8-Yctobauvq-rqrmae does ALL the effort. Patient does none of the effort to complete the activity. Or, the assistance of 2 or more helpers is required for the patient to complete the activity. If activity was not attempted, code reason: 7-Patient Refused. 9-Not Applicable-not attempted and the patient did not perform the activity before the current illness, exacerbation or injury. 10-Not Attempted due to Environmental Limitations-(lack of equipment, weather restraints, etc.). 88-Not Attempted due to Medical Conditions or Safety Concerns. Exercises Supine Ex: Ankle pumps, Quad Set, Glut sets, Heel Slides, Straight leg raise, Hip abd/add Supine Reps: 15 (2 sets) Assessment Patient tolerated treatment well and increased to 2 sets of exercises. Continue to increase activity as tolerated by patient. PT Global Creative Chairman Goals Skilled Nursing Goals PT Global Creative Chairman Goals Time Frame: Apr 11, 2021 Roll Left & Right (QC): 4 Sit to Lying (QC): 4 Lying-Sitting on Side/Bed(QC): 4 Sit to Stand (QC): 4 Chair/Lxf-ks-Yztbq Xfer(QC): 4 Toilet Transfer (QC): 4 Car Transfer (QC): 4 Does the Patient Walk: Yes Walk 10 feet (QC): 4 Walk 50ft with 2 Turns (QC): 4 Walk 150 ft (QC): 9 Walking 10ft on Uneven Surface: 4 1 Step (curb) (QC): 9 4 Steps (QC): 9 12 Steps (QC): 9 Picking up an Object (QC): 9 Wheel 50 feet with 2 turns (QC: 9 Type: N/A Wheel 150 feet: 9 Type: N/A PT Plan Treatment/Plan Treatment Plan: Continue Plan of Care Treatment Plan: Bed Mobility, Education, Functional Activity [place], Functional Strength, Gait, Safety, Therapeutic Exercise, Transfers Treatment Duration: Apr 11, 2021 Frequency: 6 times per week Estimated Hrs Per Day: .25 hour per day Patient and/or Family Agrees t: Yes Time/GCodes Time In: 1342 Time Out: 1356 Total Billed Treatment Time: 14 Total Billed Treatment 1 visit EX 14 min CLAY HOLGUIN PT Mar 23, 2021 14:04
[2021-03-23] MEDS ORDERED: SENNA W/DOCUSATE (SENOKOT S) TABLET PO PRN (15:00)
[2021-03-23] MEDS: PANTOPRAZOLE 40 MG (PROTONIX) TAB PO SCH (16:52)
[2021-03-23] MEDS: CALCIUM CARBONATE 500 MG (TUMS) TAB.CHEW PO SCH (16:52)
[2021-03-23 18:00] VITALS: BP 125/58
--- NOTE | 2021-03-23 18:59 | Cardiology Progress Note ---
Progress Note-Cardiology Events since last exam Date Seen by Provider: Mar 23, 2021 Time Seen by Provider: 18:54 Events since last exam We are seeing him due to non-ST elevation myocardial infarction. He is still very weak. He denies chest discomfort. He does get fairly short of breath with activity. He denies palpitations or syncope. He still has some mild ankle edema. Certain portions of this document may have been dictated utilizing voice recognition technology. Inherent to this technology, typographical and grammatical errors may exist. As much as I am diligent to identify and correct these mistakes, some errors may remain in the document. Vitals Last set of Vitals Signs Vital Signs 03/23/21 03/23/21 03/23/21 05:17 08:11 08:59 Temp 36.4 Pulse 72 Resp 18 B/P (MAP) 124/60 (81) Pulse Ox 91 O2 Delivery High Flow N/C O2 Flow Rate 1.00 Labs Labs Laboratory Tests 03/23/21 05:15 Exam Vital Signs Vital Signs Date Time Temp Pulse Resp B/P (MAP) Pulse Ox O2 Delivery O2 Flow Rate FiO2 03/23/21 08:59 High Flow N/C 1.00 03/23/21 08:11 91 03/23/21 05:17 36.4 72 18 124/60 (81) Physical Exam General: Alert. No acute distress. He is obese. Eye: No xanthelasma. HENT: Normocephalic. Neck: Jugular venous pressure does not appear elevated. Respiratory: Lungs have crackles at the right base. Respirations are non- labored. Breath sounds are equal. Symmetrical chest wall expansion. Cardiovascular: Normal rate. Regular rhythm. 3/6 systolic ejection murmur. No gallop. Trace bilateral pretibial edema. Gastrointestinal: Soft. Normal bowel sounds. Skin: Warm. Dry. Neurologic: Alert and oriented to person, place, time. Cranial nerves 3-11 grossly intact. Psychiatric: Cooperative. Appropriate mood & affect. Labs Laboratory Tests Test 03/23/21 05:15 Range/Units Hemoglobin 9.0 L 13.3-17.7 g/dL Hematocrit 30 L 40-54 % Diagnosis/Problems Diagnosis/Problems (1) Non-ST elevation myocardial infarction (NSTEMI), initial care episode Assessment & Plan: He is not having any angina. On the other hand, he did not have chest pain at the time of admission. We will continue aspirin, clopidogrel, and statin medication. Beta-dannielle had not been prescribed due to his previous sepsis. His blood pressure is now improving. He does not have a history of hypertension. However, given the non-ST elevation myocardial infarction, I will start him on low-dose carvedilol. We will need to watch his blood pressure closely. (2) Aortic stenosis Assessment & Plan: This is severe. This will need to be followed longitudinally. There are no plans for valve replacement in the near future. He would need to be completely recovered from all infections before even considering valve replacement. (3) Mixed hyperlipidemia Assessment & Plan: Continue statin medication. His lipid panel shows his LDL level to be under great control. (4) Anemia Status: Acute Assessment & Plan: Exact etiology unclear. This appears to have stabilized. (5) Type 2 diabetes mellitus with complication Assessment & Plan: This is being managed by the hospitalist. (6) Obesity Status: Chronic Assessment & Plan: He needs to work on weight loss LEATHA MEDRANO JR, MD Mar 23, 2021 18:59
[2021-03-23] MEDS: MELATONIN 10 MG TABLET PO SCH (20:55)
[2021-03-23] MEDS: DULoxetine 30 MG (CYMBALTA) CAP PO SCH (20:55)
[2021-03-23] MEDS: MIRTAZAPINE 15 MG (REMERON) TAB PO SCH (20:55)
[2021-03-23] MEDS: CEFDINIR 300 MG (OMNICEF) CAP PO SCH (20:55)
[2021-03-24] MEDS: LEVOTHYROXINE 125 MCG (LEVOTHROID) TABLET PO SCH (05:08)
[2021-03-24 05:24] VITALS: BP 120/65
[2021-03-24] MEDS: RT-ALBUTEROL SULF 2.5 MG/3 ML PRE-MIX VIAL INH SCH (07:20)
[2021-03-24 07:24] VITALS: BP 120/65
[2021-03-24] MEDS: CLOPIDOGREL 75 MG (PLAVIX) TABLET PO SCH (08:42)
[2021-03-24] MEDS: LACTOBACILLUS ACIDOPHILUS (PROBIOTIC) CAPSULE PO SCH ×3 (08:42→17:35)
[2021-03-24] MEDS: CEFDINIR 300 MG (OMNICEF) CAP PO SCH ×2 (08:42→21:00)
[2021-03-24] MEDS: ASPIRIN 81 MG CHEW (CHILDREN'S ASA) PO SCH (08:43)
[2021-03-24] MEDS: OMEGA 3 (FISH OIL) 1000 MG CAP PO SCH (08:43)
[2021-03-24] MEDS: PREGABALIN 150 MG (LYRICA) CAPSULE PO SCH ×2 (08:43→21:00)
[2021-03-24] MEDS: FAMOTIDINE 20 MG (PEPCID) TABLET PO SCH ×2 (08:43→21:00)
[2021-03-24] MEDS: MICONAZOLE 2% POWDER (DESENEX AF) 90 GM TOP SCH ×2 (08:46→20:57)
--- NOTE | 2021-03-24 10:07 | Physical Therapy Daily Note ---
PT Daily Note-Current Subjective Patient agrees to PT. Mental Status Patient Orientation: Normal For Age Attachments: Oxygen, Suprapubic Catheter Transfers SCALE: Activities may be completed with or without assistive devices. 5-Zbvkdwxvmg-yphomgm completes the activity by him/herself with no assistance from a helper. 5-Set-up or Clean-up Assistance-helper sets up or cleans up; patient completes activity. [place] assists only prior to or following the activity. 4-Supervision or Touching Assistance-helper provides verbal cues and/or touching/steadying and/or contact guard assistance as patient completes activity. Assistance may be provided throughout the activity or intermittently. 3-Partial/Moderate Assistance-helper does LESS THAN HALF the effort. [place] lifts, holds or supports trunk or limbs, but provides less than half the effort. 2-Substantial/Maximal Assistance-helper does MORE THAN HALF the effort. [place] lifts or holds trunk or limbs and provides more than half the effort. 2-Fucvwgvzr-clssiu does ALL the effort. Patient does none of the effort to complete the activity. Or, the assistance of 2 or more helpers is required for the patient to complete the activity. If activity was not attempted, code reason: 7-Patient Refused. 9-Not Applicable-not attempted and the patient did not perform the activity before the current illness, exacerbation or injury. 10-Not Attempted due to Environmental Limitations-(lack of equipment, weather restraints, etc.). 88-Not Attempted due to Medical Conditions or Safety Concerns. Lying to Sitting/Side of Bed(Q: 3 Sit to Stand (QC): 4 Chair/Vik-cc-Xietk Xfer(QC): 4 Gait Training Distance: 10' x 2 Walk 10 feet (QC): 3 Gait Assistive Device: FWW slow, shuffle gait sequence with inability to turn (flexed bilateral knees and trunk posture with gait) Exercises Supine Ex: Ankle pumps, Quad Set, Glut sets, Heel Slides, Straight leg raise, Hip abd/add Supine Reps: 12 Standing: Sit to Stand (x 4 sets) Assessment Patient fatigues with minimal activity and requires seated recovery periods. Patient continues to require assistance with sit to stand and gait. PT Cadet Deck Goals Cadet Deck Goals PT Cadet Deck Goals Time Frame: Apr 11, 2021 Roll Left & Right (QC): 4 Sit to Lying (QC): 4 Lying-Sitting on Side/Bed(QC): 4 Sit to Stand (QC): 4 Chair/Qeo-ro-Hnftg Xfer(QC): 4 Toilet Transfer (QC): 4 Car Transfer (QC): 4 Does the Patient Walk: Yes Walk 10 feet (QC): 4 Walk 50ft with 2 Turns (QC): 4 Walk 150 ft (QC): 9 Walking 10ft on Uneven Surface: 4 1 Step (curb) (QC): 9 4 Steps (QC): 9 12 Steps (QC): 9 Picking up an Object (QC): 9 Wheel 50 feet with 2 turns (QC: 9 Type: N/A Wheel 150 feet: 9 Type: N/A PT Plan Treatment/Plan Treatment Plan: Continue Plan of Care Treatment Plan: Bed Mobility, Education, Functional Activity [place], Functional Strength, Gait, Safety, Therapeutic Exercise, Transfers Treatment Duration: Apr 11, 2021 Frequency: 6 times per week Estimated Hrs Per Day: .25 hour per day Patient and/or Family Agrees t: Yes Time/GCodes Time In: 930 Time Out: 953 Total Billed Treatment Time: 23 Total Billed Treatment 1 visit EX 11 min GT 12 min CLAY HOLGUIN PT Mar 24, 2021 10:07
--- NOTE | 2021-03-24 11:40 | Occupational Ther Daily Note ---
OT Current Status-Daily Note Subjective Pt alert, sitting in chair. Pt agrees to therapy. No c/o pain. Does discuss LE's being weak and having difficulty with ambulating 10 feet or more. Mental Status/Objective Patient Orientation: Person, Place, Time, Situation Attachments: IV, Suprapubic Catheter ADL-Treatment Pt agrees to sponge bath. After gathering supplies for oral care and grooming, pt able to complete tasks on own. Pt able to manipulate O2 tubing (taking off/placing) during grooming tasks and upper body dressing. Pt sat in chair to complete sponge bath, after supplies were gathered. Pt able to bathe upper body, leatha area and upper legs by self, assist for lower legs/feet. Pt declines to cleanse buttocks, worrying that B LE's were to weak and pt would fall. Per clinical judgment, pt would require 2 person assist to stand and cleanse buttocks for safety. Pt reminded to let nrsg know to cleanse buttocks when pt returns to bed. Max A for footwear. Per clinical judgment, pt would require 2 person assist to complete lower body dressing. Per clinical judgment, pt is set up for upper body dressing. After therapy, pt sitting in recliner with call light/phone. Therapy Code Descriptions/Definitions Functional [place] Measure: 0=Not Assessed/NA 4=Minimal Assistance 1=Total Assistance 5=Supervision or Setup 2=Maximal Assistance 6=Modified [place] 3=Moderate Assistance 7=Complete IndependenceSCALE: Activities may be completed with or without assistive devices. 3-Soifhgzcwm-bupjadw completes the activity by him/herself with no assistance from a helper. 5-Set-up or Clean-up Assistance-helper sets up or cleans up; patient completes activity. [place] assists only prior to or following the activity. 4-Supervision or Touching Assistance-helper provides verbal cues and/or touching/steadying and/or contact guard assistance as patient completes activity. Assistance may be provided throughout the activity or intermittently. 3-Partial/Moderate Assistance-helper does LESS THAN HALF the effort. [place] lifts, holds or supports trunk or limbs, but provides less than half the effort. 2-Substantial/Maximal Assistance-helper does MORE THAN HALF the effort. [place] lifts or holds trunk or limbs and provides more than half the effort. 1-Lkajwqtjw-umfsnf does ALL the effort. Patient does none of the effort to complete the activity. Or, the assistance of 2 or more helpers is required for the patient to complete the activity. If activity was not attempted, code reason: 7-Patient Refused. 9-Not Applicable-not attempted and the patient did not perform the activity before the current illness, exacerbation or injury. 10-Not Attempted due to Environmental Limitations-(lack of equipment, weather restraints, etc.). 88-Not Attempted due to Medical Conditions or Safety Concerns. Eating (QC): 6 (Per clinical judgment.) Oral Hygiene (QC): 5 Bathing Location: L Arm, R Arm, L Upper Leg, R Upper Leg, Chest, Abdomen Shower/Bathe Self (QC): 1 (per clinical judgment, pt will required assist x2 to cleanse buttocks.) Upper Body Dressing (QC): 5 Lower Body Dressing (QC): 1 On/Off Footwear: 2 Toileting Hygiene (QC): 1 (Per clinical judgment, pt will require assist x2 to complete.) Pt verbalized that daughter will be completing lower body bathing and dressing when he goes home. OT Short Term Goals Short Term Goals Time Frame: Mar 31, 2021 Eatin Oral hygiene: 6 Toileting hygiene: 3 Shower/bathe self: 3 Upper body dressin Lower body dressin Putting on/taking off footwear: 3 OT Jail Goals Jail Goals Time Frame: Apr 07, 2021 Eating (QC): 6 Oral Hygiene (QC): 6 Toileting Hygiene (QC): 4 Shower/Bathe Self (QC): 4 Upper Body Dressing (QC): 4 Lower Body Dressing (QC): 4 On/Off Footwear (QC): 5 1=Demonstrate adherence to instructed precautions during ADL tasks. 2=Patient will verbalize/demonstrate understanding of assistive devices/modifications for ADL. 3=Patient will improve strength/tolerance for activity to enable patient to perform ADL's. OT Education/Plan Problem List/Assessment Assessment: Decreased Activ Tolerance, Decreased UE Strength, Impaired Bed Mobility, Impaired Coordination, Impaired Funct Balance, Impaired I ADL's, Impaired Self-Care Skills Discharge Recommendations Plan/Recommendations: Continue POC Treatment Plan/Plan of Care Patient would benefit from OT for education, treatment and training to promote independence in ADL's, mobility, safety and/or upper extremity function for ADL's. Plan of Care: ADL Retraining, Functional Mobility, Group Exercise/Act as Ind, UE Funct Exercise/Act, W/C Management Training Treatment Duration: Apr 07, 2021 Frequency: 5 times per week Estimated Hrs Per Day: .25 hour per day Agreement: Yes Rehab Potential: Poor Time/GCodes Start Time: 10:55 Stop Time: 11:25 Total Time Billed (hr/min): 30 Billed Treatment Time 1 visit-ADL 2 (30 min) CIRO PIÑA Mar 24, 2021 11:40
[2021-03-24] MEDS: DOCUSATE SODIUM 100 MG (COLACE) CAP PO PRN (13:39)
--- NOTE | 2021-03-24 13:55 | Physical Therapy Daily Note ---
PT Daily Note-Current Subjective Patient in bed performing red theraband UE exercises. Daughter present. Agrees to PT. Mental Status Patient Orientation: Normal For Age Attachments: Oxygen, Suprapubic Catheter Transfers SCALE: Activities may be completed with or without assistive devices. 6-Sewcohrnqo-ghwtjnp completes the activity by him/herself with no assistance from a helper. 5-Set-up or Clean-up Assistance-helper sets up or cleans up; patient completes activity. [place] assists only prior to or following the activity. 4-Supervision or Touching Assistance-helper provides verbal cues and/or touching/steadying and/or contact guard assistance as patient completes activity. Assistance may be provided throughout the activity or intermittently. 3-Partial/Moderate Assistance-helper does LESS THAN HALF the effort. [place] lifts, holds or supports trunk or limbs, but provides less than half the effort. 2-Substantial/Maximal Assistance-helper does MORE THAN HALF the effort. [place] lifts or holds trunk or limbs and provides more than half the effort. 6-Ibbcjbvnn-rkvhsz does ALL the effort. Patient does none of the effort to complete the activity. Or, the assistance of 2 or more helpers is required for the patient to complete the activity. If activity was not attempted, code reason: 7-Patient Refused. 9-Not Applicable-not attempted and the patient did not perform the activity bef ore the current illness, exacerbation or injury. 10-Not Attempted due to Environmental Limitations-(lack of equipment, weather r estraints, etc.). 88-Not Attempted due to Medical Conditions or Safety Concerns. placed bed in Trendelenberg to assist in repositioning patient up in bed. Patient able to perform independently in this position Exercises Supine Ex: Ankle pumps, Quad Set, Glut sets, Heel Slides, Straight leg raise, Hip abd/add Supine Reps: 15 Assessment Education with patient and daughter on importance of OOB activity, i.e. up for all meals, to increase strength and mobility. Patient voices understanding. Patient also states, after session, he had no idea that being in bed and doing nothing causes pneumonia. Education with patient to reinforce initial statement. PT Tariff Inspector Goals Tariff Inspector Goals PT Tariff Inspector Goals Time Frame: Apr 11, 2021 Roll Left & Right (QC): 4 Sit to Lying (QC): 4 Lying-Sitting on Side/Bed(QC): 4 Sit to Stand (QC): 4 Chair/Iyb-mu-Joujj Xfer(QC): 4 Toilet Transfer (QC): 4 Car Transfer (QC): 4 Does the Patient Walk: Yes Walk 10 feet (QC): 4 Walk 50ft with 2 Turns (QC): 4 Walk 150 ft (QC): 9 Walking 10ft on Uneven Surface: 4 1 Step (curb) (QC): 9 4 Steps (QC): 9 12 Steps (QC): 9 Picking up an Object (QC): 9 Wheel 50 feet with 2 turns (QC: 9 Type: N/A Wheel 150 feet: 9 Type: N/A PT Plan Treatment/Plan Treatment Plan: Continue Plan of Care Treatment Plan: Bed Mobility, Education, Functional Activity [place], Functional Strength, Gait, Safety, Therapeutic Exercise, Transfers Treatment Duration: Apr 11, 2021 Frequency: 6 times per week Estimated Hrs Per Day: .25 hour per day Patient and/or Family Agrees t: Yes Time/GCodes Time In: 1300 Time Out: 1316 Total Billed Treatment Time: 16 Total Billed Treatment 1 visit EX 16 min CLAY HOLGUIN PT Mar 24, 2021 13:55
[2021-03-24 17:07] VITALS: BP 131/60
[2021-03-24] MEDS: CALCIUM CARBONATE 500 MG (TUMS) TAB.CHEW PO SCH (17:35)
[2021-03-24] MEDS: PANTOPRAZOLE 40 MG (PROTONIX) TAB PO SCH (17:35)
--- NOTE | 2021-03-24 18:54 | Cardiology Progress Note ---
Progress Note-Cardiology Events since last exam Date Seen by Provider: Mar 24, 2021 Time Seen by Provider: 18:51 Events since last exam We are seeing him due to coronary artery disease with NSTEMI during this admission. He denies chest discomfort, dyspnea at rest, palpitations, or syncope. He has minimal lower extremity edema. Certain portions of this document may have been dictated utilizing voice recognition technology. Inherent to this technology, typographical and grammatical errors may exist. As much as I am diligent to identify and correct these mistakes, some errors may remain in the document. Vitals Last set of Vitals Signs Vital Signs 03/24/21 17:07 Temp 36.2 Pulse 70 Resp 18 B/P (MAP) 131/60 (83) Pulse Ox 92 O2 Delivery High Flow N/C O2 Flow Rate 1.00 Exam Vital Signs Vital Signs Date Time Temp Pulse Resp B/P (MAP) Pulse Ox O2 Delivery O2 Flow Rate FiO2 03/24/21 17:07 36.2 70 18 131/60 (83) 92 High Flow N/C 1.00 Physical Exam General: Alert. No acute distress. He is obese. Eye: No xanthelasma. HENT: Normocephalic. Neck: Jugular venous pressure does not appear elevated. Respiratory: Lungs are clear to auscultation. Respirations are non-labored. Breath sounds are equal. Symmetrical chest wall expansion. Cardiovascular: Normal rate. Regular rhythm. 3/6 systolic ejection murmur. No gallop. 1+ bilateral pedal edema, mainly confined to the feet. Gastrointestinal: Soft. Normal bowel sounds. Skin: Warm. Dry. Neurologic: Alert and oriented to person, place, time. Cranial nerves 3-11 grossly intact. Psychiatric: Cooperative. Appropriate mood & affect. Labs Laboratory Tests Test 03/23/21 20:05 Range/Units Glucometer 129 H 70-110 MG/DL Diagnosis/Problems Diagnosis/Problems (1) Non-ST elevation myocardial infarction (NSTEMI), initial care episode Assessment & Plan: He is not having any angina. On the other hand, he did not have chest pain at the time of admission. We will continue aspirin, clopidogrel, and statin medication. Beta-dannielle had not been prescribed due to his previous sepsis. His blood pressure is now improving. He does not have a history of hypertension. On 03/23 I started him on low-dose carvedilol. We will need to watch his blood pressure closely. (2) Aortic stenosis Assessment & Plan: This is severe. This will need to be followed longitudinally. There are no plans for valve replacement in the near future. He would need to be completely recovered from all infections before even considering valve replacement. (3) Mixed hyperlipidemia Assessment & Plan: Continue statin medication. His lipid panel shows his LDL level to be under great control. (4) Anemia Status: Acute Assessment & Plan: Exact etiology unclear. This appears to have stabilized. We will continue the aspirin and clopidogrel for his recent coronary stent. (5) Type 2 diabetes mellitus with complication Assessment & Plan: This is being managed by the hospitalist. (6) Obesity Status: Chronic Assessment & Plan: He needs to work on weight loss LEATHA MEDRANO JR, MD Mar 24, 2021 18:54
[2021-03-24] MEDS: DULoxetine 30 MG (CYMBALTA) CAP PO SCH (21:00)
[2021-03-24] MEDS: MIRTAZAPINE 15 MG (REMERON) TAB PO SCH (21:00)
[2021-03-24] MEDS: MELATONIN 10 MG TABLET PO SCH (21:59)
[2021-03-25 05:22] LABS: HEMATOCRIT 33 % (40-54); HEMOGLOBIN 9.9 g/dL (13.3-17.7); MEAN CORPUSCULAR HEMOGLOBIN 27 pg (25-34); MEAN CORPUSCULAR HGB CONC 30 g/dL (32-36); MEAN CORPUSCULAR VOLUME 90 fL (80-99); MEAN PLATELET VOLUME 11.3 fL (9.0-12.2); PLATELET COUNT 243 10^3/uL (130-400); WHITE BLOOD COUNT 7.3 10^3/uL (4.3-11.0)
[2021-03-25 05:40] LABS: POTASSIUM 4.2 MMOL/L (3.6-5.0)
[2021-03-25 05:41] LABS: CALCIUM 9.7 MG/DL (8.5-10.1)
[2021-03-25 05:45] LABS: CREATININE SERUM 0.71 MG/DL (0.60-1.30)
[2021-03-25 06:00] VITALS: BP 120/58
[2021-03-25] MEDS: LEVOTHYROXINE 125 MCG (LEVOTHROID) TABLET PO SCH (06:38)
--- NOTE | 2021-03-25 08:52 | Physical Therapy Daily Note ---
PT Daily Note-Current Subjective Pt in recliner upon arrival. Daughter in room. Pt agrees to PT. Doesn't report any pain. Mental Status Patient Orientation: Normal For Age Attachments: Oxygen, Anguiano Catheter Transfers SCALE: Activities may be completed with or without assistive devices. 9-Hugykilwyf-dpgmofb completes the activity by him/herself with no assistance from a helper. 5-Set-up or Clean-up Assistance-helper sets up or cleans up; patient completes activity. [place] assists only prior to or following the activity. 4-Supervision or Touching Assistance-helper provides verbal cues and/or touching/steadying and/or contact guard assistance as patient completes activity. Assistance may be provided throughout the activity or intermittently. 3-Partial/Moderate Assistance-helper does LESS THAN HALF the effort. [place] lifts, holds or supports trunk or limbs, but provides less than half the effort. 2-Substantial/Maximal Assistance-helper does MORE THAN HALF the effort. [place] lifts or holds trunk or limbs and provides more than half the effort. 0-Vsitosdee-oijzdb does ALL the effort. Patient does none of the effort to complete the activity. Or, the assistance of 2 or more helpers is required for the patient to complete the activity. If activity was not attempted, code reason: 7-Patient Refused. 9-Not Applicable-not attempted and the patient did not perform the activity before the current illness, exacerbation or injury. 10-Not Attempted due to Environmental Limitations-(lack of equipment, weather restraints, etc.). 88-Not Attempted due to Medical Conditions or Safety Concerns. Sit to Stand (QC): 3 Gait Training Does the Patient Walk?: Yes Distance: 10' x 2 Walk 10 feet (QC): 3 Gait Assistive Device: FWW Pt ambulates w/ (B) knee flexed and bares a lot his weight through BUE. Pt unable to turn during ambulation. Wheelchair Training Does the Pt Use a Wheelchair?: Yes Pt requires WCH after ambulating 10' to go backwards/ turn around d/t not being able to turn during amb. Exercises Seated Therapy Exercises: Ankle pumps, Long arc quads, Hip flexion, Glut set Seated Reps: 15 Standing: Sit to Stand Standing Reps: 4 Treatments Pt in bedside chair upon arrival, daughter present. Pt agrees to PT. Pt performs sit to stand and requires modA to perform. Pt then amb 10' then sits in [facility] and wheeled back d/t not being able to turn. Pt then performs sit to stand from [facility] and requires maxA d/t chair being shorter. Then amb 10' then sits in [facility] and rolled back. Pt requests to stay in [facility] until PT comes back in afternoon to TF back to bed. Assessment Current Status: Fair Progress Pt required skilled verbal cues about hand placement and foot placement while performing sit to stands. Pt continues to be very weak but encouraged pt to sit more to help w/ this. Pt in [facility] upon departure daughter present all needs met and call light nearby. PT Time Cycle Operator Goals [facility] Goals PT [facility] Goals Time Frame: Apr 11, 2021 Roll Left & Right (QC): 4 Sit to Lying (QC): 4 Lying-Sitting on Side/Bed(QC): 4 Sit to Stand (QC): 4 Chair/Wsa-nz-Wkprd Xfer(QC): 4 Toilet Transfer (QC): 4 Car Transfer (QC): 4 Does the Patient Walk: Yes Walk 10 feet (QC): 4 Walk 50ft with 2 Turns (QC): 4 Walk 150 ft (QC): 9 Walking 10ft on Uneven Surface: 4 1 Step (curb) (QC): 9 4 Steps (QC): 9 12 Steps (QC): 9 Picking up an Object (QC): 9 Wheel 50 feet with 2 turns (QC: 9 Type: N/A Wheel 150 feet: 9 Type: N/A PT Plan Problem List Problem List: Activity Tolerance, Functional Strength, Safety Treatment/Plan Treatment Plan: Continue Plan of Care Treatment Plan: Bed Mobility, Education, Functional Activity Glenn, Functional Strength, Gait, Safety, Therapeutic Exercise, Transfers Treatment Duration: Apr 11, 2021 Frequency: 6 times per week Estimated Hrs Per Day: .25 hour per day Patient and/or Family Agrees t: Yes Safety Risks/Education Patient Education: Gait Training, Transfer Techniques Teaching Recipient: Patient, Family Teaching Methods: Discussion Response to Teaching: Verbalize Understanding, Return Demonstration Time/GCodes Time In: 805 Time Out: 822 Total Billed Treatment Time: 17 Total Billed Treatment 1, GT 10', EX 7' [place] BUSINESS PROCESS MODELER Mar 25, 2021 08:52
[2021-03-25] MEDS: CEFDINIR 300 MG (OMNICEF) CAP PO SCH ×2 (09:15→20:29)
[2021-03-25] MEDS: CLOPIDOGREL 75 MG (PLAVIX) TABLET PO SCH (09:15)
[2021-03-25] MEDS: LACTOBACILLUS ACIDOPHILUS (PROBIOTIC) CAPSULE PO SCH ×3 (09:15→16:28)
[2021-03-25] MEDS: OMEGA 3 (FISH OIL) 1000 MG CAP PO SCH (09:15)
[2021-03-25] MEDS: ASPIRIN 81 MG CHEW (CHILDREN'S ASA) PO SCH (09:15)
[2021-03-25] MEDS: FAMOTIDINE 20 MG (PEPCID) TABLET PO SCH ×2 (09:15→20:29)
[2021-03-25] MEDS: PREGABALIN 150 MG (LYRICA) CAPSULE PO SCH ×2 (09:18→20:29)
[2021-03-25] MEDS: MICONAZOLE 2% POWDER (DESENEX AF) 90 GM TOP SCH ×2 (09:18→20:30)
--- NOTE | 2021-03-25 09:33 | Progress Note - Hospitalist ---
Subjective HPI/CC On Admission Date Seen by Provider: Mar 25, 2021 Time Seen by Provider: 09:27 Subjective/Events-last exam Pt reports doing ok but just feeling tired. No other specific complaints. Daughter at bedside and we discussed discharge plans. Informed them how he has been on a home regimen since Tuesday evening and has been very stable and even on lower oxygen than normal so should have success at home once strength improved but if strength can't get there may need to pursue snf placement for stepping stone to home for continued therapy. They are somewhat resistant to this idea and just want him to be able to go home. Daughter would also like to bring in his home vitamins as well so he can resume those. Objective Exam Vital Signs Vital Signs Date Time Temp Pulse Resp B/P (MAP) Pulse Ox O2 Delivery O2 Flow Rate FiO2 03/25/21 09:23 92 High Flow N/C 1.00 03/25/21 06:00 36.4 63 20 120/58 (78) Capillary Refill : General Appearance: No Apparent Distress, Chronically ill, Obese Respiratory: Lungs Clear, No Respiratory Distress Cardiovascular: Regular Rate, Rhythm, Systolic Murmur Neurologic/Psychiatric: Alert, Oriented x3 Results/Procedures Lab Laboratory Tests 03/25/21 05:05 Patient resulted labs reviewed. Assessment/Plan Assessment and Plan Assess & Plan/Chief Complaint Chronic hypoxic respiratory failure Pneumonia Oxygen requirements actually below baseline at 1lpm Has been stable on oral antibiotics since 03/23 NSTEMI CAD HTN Aortic stenosis Continue DAPT Anemia Fecal occult blood positive Baseline around 9-10 Hgb stable post-transfusion, 9.9 today No indication for further transfusion No evidence of significant ongoing bleeding Plan for outpatient colonoscopy Iron infusion 03/22 Hypothyroidism BPH s/p SPT Continue home meds when able Thyroid labs within normal limits Obesity Clinically significant, no acute management needs Critical illness myopathy Recurrent pneumonia PT/OT May need snf placement if cannot make strides on strength to be able to go home DVT prophylaxis: SCDs Acute hypoxic respiratory failure, resolved LIZANDRO LENTZ MD Mar 25, 2021 09:33
--- NOTE | 2021-03-25 13:00 | Occupational Ther Daily Note ---
OT Current Status-Daily Note Subjective Pt alert, lying in bed. Daughter present in room. Pt agrees to therapy. No c/o pain. Mental Status/Objective Patient Orientation: Person, Place, Time, Situation Attachments: IV, Oxygen, Suprapubic Catheter ADL-Treatment Therapy Code Descriptions/Definitions Functional [place] Measure: 0=Not Assessed/NA 4=Minimal Assistance 1=Total Assistance 5=Supervision or Setup 2=Maximal Assistance 6=Modified [place] 3=Moderate Assistance 7=Complete IndependenceSCALE: Activities may be completed with or without assistive devices. 2-Yrcfxlswmg-xlwheff completes the activity by him/herself with no assistance from a helper. 5-Set-up or Clean-up Assistance-helper sets up or cleans up; patient completes activity. [place] assists only prior to or following the activity. 4-Supervision or Touching Assistance-helper provides verbal cues and/or touching/steadying and/or contact guard assistance as patient completes activity. Assistance may be provided throughout the activity or intermittently. 3-Partial/Moderate Assistance-helper does LESS THAN HALF the effort. [place] lifts, holds or supports trunk or limbs, but provides less than half the effort. 2-Substantial/Maximal Assistance-helper does MORE THAN HALF the effort. [place] lifts or holds trunk or limbs and provides more than half the effort. 7-Oejqcvxyx-gwfdeg does ALL the effort. Patient does none of the effort to complete the activity. Or, the assistance of 2 or more helpers is required for the patient to complete the activity. If activity was not attempted, code reason: 7-Patient Refused. 9-Not Applicable-not attempted and the patient did not perform the activity before the current illness, exacerbation or injury. 10-Not Attempted due to Environmental Limitations-(lack of equipment, weather restraints, etc.). 88-Not Attempted due to Medical Conditions or Safety Concerns. Other Treatment Min A with HOB elevated for supine to EOB. With surface elevated, pt able to go from sit to stand with min A x2. Using FWW to transfer from EOB to chair, pt r equires mod A x2 for safety. Pt then completed 5 sit to stands to increase activity tolerance and strength to complete functional mobility. After session, pt sitting in chair with call light/phone in reach. All needs met in room. OT Short Term Goals Short Term Goals Time Frame: Mar 31, 2021 Eatin Oral hygiene: 6 Toileting hygiene: 3 Shower/bathe self: 3 Upper body dressin Lower body dressin Putting on/taking off footwear: 3 OT Continuum Of Care Manager Goals Continuum Of Care Manager Goals Time Frame: Apr 07, 2021 Eating (QC): 6 Oral Hygiene (QC): 6 Toileting Hygiene (QC): 4 Shower/Bathe Self (QC): 4 Upper Body Dressing (QC): 4 Lower Body Dressing (QC): 4 On/Off Footwear (QC): 5 1=Demonstrate adherence to instructed precautions during ADL tasks. 2=Patient will verbalize/demonstrate understanding of assistive devices/modifications for ADL. 3=Patient will improve strength/tolerance for activity to enable patient to perform ADL's. OT Education/Plan Problem List/Assessment Assessment: Decreased Activ Tolerance, Impaired Funct Balance, Impaired Self- Care Skills Discharge Recommendations Plan/Recommendations: Continue POC Treatment Plan/Plan of Care Patient would benefit from OT for education, treatment and training to promote independence in ADL's, mobility, safety and/or upper extremity function for ADL's. Plan of Care: ADL Retraining, Functional Mobility, Group Exercise/Act as Ind, UE Funct Exercise/Act, W/C Management Training Treatment Duration: Apr 07, 2021 Frequency: 5 times per week Estimated Hrs Per Day: .25 hour per day Agreement: Yes Rehab Potential: Poor Time/GCodes Start Time: 12:00 Stop Time: 12:15 Total Time Billed (hr/min): 15 Billed Treatment Time 1 visit-FA 1 (15 min) CIOR PIÑA Mar 25, 2021 13:00
--- NOTE | 2021-03-25 13:53 | Physical Therapy Daily Note ---
PT Daily Note-Current Subjective Pt in bed upon arrival and agrees to therapy. Daughter present in room. Pt has no complaints of pain at this time. Mental Status Patient Orientation: Normal For Age Attachments: Oxygen, Anguiano Catheter, IV Transfers SCALE: Activities may be completed with or without assistive devices. 7-Sgqwwukxta-iwhttfw completes the activity by him/herself with no assistance from a helper. 5-Set-up or Clean-up Assistance-helper sets up or cleans up; patient completes activity. [place] assists only prior to or following the activity. 4-Supervision or Touching Assistance-helper provides verbal cues and/or touching/steadying and/or contact guard assistance as patient completes activity. Assistance may be provided throughout the activity or intermittently. 3-Partial/Moderate Assistance-helper does LESS THAN HALF the effort. [place] lifts, holds or supports trunk or limbs, but provides less than half the effort. 2-Substantial/Maximal Assistance-helper does MORE THAN HALF the effort. [place] lifts or holds trunk or limbs and provides more than half the effort. 3-Yjlhyhzfv-evqytf does ALL the effort. Patient does none of the effort to complete the activity. Or, the assistance of 2 or more helpers is required for the patient to complete the activity. If activity was not attempted, code reason: 7-Patient Refused. 9-Not Applicable-not attempted and the patient did not perform the activity before the current illness, exacerbation or injury. 10-Not Attempted due to Environmental Limitations-(lack of equipment, weather restraints, etc.). 88-Not Attempted due to Medical Conditions or Safety Concerns. Sit to Stand (QC): 3 Chair/Mwr-af-Yzroy Xfer(QC): 3 Gait Training Gait Assistive Device: FWW Exercises Seated Therapy Exercises: Sit to stand Seated Reps: 6 Treatments Min A with HOB elevated for supine to EOB. With surface elevated, pt able to go from sit to stand with min A x2. Using FWW to transfer from EOB to chair, pt requires mod A x2 for safety. Pt then completed 5 sit to stands to increase activity tolerance and strength to complete functional mobility. Pt in chair call light nearby and all needs met. Assessment Current Status: Good Progress Pt continues to have decreased activity tolerance but pt able to complete last two sit to stands w/ CGA. PT Transition Of Care Specialist Goals Transition Of Care Specialist Goals PT Transition Of Care Specialist Goals Time Frame: Apr 11, 2021 Roll Left & Right (QC): 4 Sit to Lying (QC): 4 Lying-Sitting on Side/Bed(QC): 4 Sit to Stand (QC): 4 Chair/Qen-jj-Kssqg Xfer(QC): 4 Toilet Transfer (QC): 4 Car Transfer (QC): 4 Does the Patient Walk: Yes Walk 10 feet (QC): 4 Walk 50ft with 2 Turns (QC): 4 Walk 150 ft (QC): 9 Walking 10ft on Uneven Surface: 4 1 Step (curb) (QC): 9 4 Steps (QC): 9 12 Steps (QC): 9 Picking up an Object (QC): 9 Wheel 50 feet with 2 turns (QC: 9 Type: N/A Wheel 150 feet: 9 Type: N/A PT Plan Problem List Problem List: Activity Tolerance, Functional Strength, Safety Treatment/Plan Treatment Plan: Continue Plan of Care Treatment Plan: Bed Mobility, Education, Functional Activity Glenn, Functional Strength, Gait, Safety, Therapeutic Exercise, Transfers Treatment Duration: Apr 11, 2021 Frequency: 6 times per week Estimated Hrs Per Day: .25 hour per day Patient and/or Family Agrees t: Yes Safety Risks/Education Patient Education: Gait Training, Transfer Techniques, Correct Positioning Teaching Recipient: Patient, Family Teaching Methods: Demonstration, Discussion Response to Teaching: Return Demonstration Time/GCodes Time In: 1200 Time Out: 1215 Total Billed Treatment Time: 15 Total Billed Treatment 1, FA 15' [place] UNDERCOATER Mar 25, 2021 13:53
[2021-03-25] MEDS: CALCIUM CARBONATE 500 MG (TUMS) TAB.CHEW PO SCH (16:28)
[2021-03-25] MEDS: PANTOPRAZOLE 40 MG (PROTONIX) TAB PO SCH (16:28)
[2021-03-25 17:06] VITALS: BP 120/86
[2021-03-25] MEDS: MIRTAZAPINE 15 MG (REMERON) TAB PO SCH (20:29)
[2021-03-25] MEDS: DULoxetine 30 MG (CYMBALTA) CAP PO SCH (20:29)
[2021-03-25] MEDS: MELATONIN 10 MG TABLET PO SCH (23:00)
[2021-03-26 05:31] VITALS: BP 115/67
[2021-03-26] MEDS: LEVOTHYROXINE 125 MCG (LEVOTHROID) TABLET PO SCH (06:02)
[2021-03-26] MEDS: PREGABALIN 150 MG (LYRICA) CAPSULE PO SCH ×2 (09:22→20:30)
[2021-03-26] MEDS: CEFDINIR 300 MG (OMNICEF) CAP PO SCH ×2 (09:22→20:29)
[2021-03-26] MEDS: OMEGA 3 (FISH OIL) 1000 MG CAP PO SCH (09:23)
[2021-03-26] MEDS: CLOPIDOGREL 75 MG (PLAVIX) TABLET PO SCH (09:23)
[2021-03-26] MEDS: LACTOBACILLUS ACIDOPHILUS (PROBIOTIC) CAPSULE PO SCH ×3 (09:23→16:56)
[2021-03-26] MEDS: ASPIRIN 81 MG CHEW (CHILDREN'S ASA) PO SCH (09:23)
[2021-03-26] MEDS: FAMOTIDINE 20 MG (PEPCID) TABLET PO SCH ×2 (09:23→20:29)
[2021-03-26] MEDS: MICONAZOLE 2% POWDER (DESENEX AF) 90 GM TOP SCH ×2 (09:24→20:31)
--- NOTE | 2021-03-26 09:50 | Physical Therapy Daily Note ---
PT Daily Note-Current Subjective Patient sitting in chair upon PT arrival with family in the room, agreeable to treatment. Reports 0/10 pain currently Transfers SCALE: Activities may be completed with or without assistive devices. 6-Roupdoylyf-gprvqce completes the activity by him/herself with no assistance from a helper. 5-Set-up or Clean-up Assistance-helper sets up or cleans up; patient completes activity. [place] assists only prior to or following the activity. 4-Supervision or Touching Assistance-helper provides verbal cues and/or touching/steadying and/or contact guard assistance as patient completes activity. Assistance may be provided throughout the activity or intermittently. 3-Partial/Moderate Assistance-helper does LESS THAN HALF the effort. [place] lifts, holds or supports trunk or limbs, but provides less than half the effort. 2-Substantial/Maximal Assistance-helper does MORE THAN HALF the effort. [place] lifts or holds trunk or limbs and provides more than half the effort. 3-Zvjwsadsh-dyivwq does ALL the effort. Patient does none of the effort to complete the activity. Or, the assistance of 2 or more helpers is required for the patient to complete the activity. If activity was not attempted, code reason: 7-Patient Refused. 9-Not Applicable-not attempted and the patient did not perform the activity before the current illness, exacerbation or injury. 10-Not Attempted due to Environmental Limitations-(lack of equipment, weather restraints, etc.). 88-Not Attempted due to Medical Conditions or Safety Concerns. Sit to Stand (QC): 3 Chair/Myl-hs-Zkqmz Xfer(QC): 3 Toilet Transfer (QC): 3 Gait Training Does the Patient Walk?: Yes Distance: 10 feet, 3 feet Walk 10 feet (QC): 3 (min A) Gait Persons Needed: 2 Gait Assistive Device: FWW Exercises Seated Therapy Exercises: Ankle pumps, Long arc quads, Hip flexion, Hamstring Curls, Hip abd/add Seated Reps: 20 Assessment Current Status: Fair Progress Patient tolerated treatment fair. Demonstrates minimal improvement in tolerance to activity. Patient performs all observed transfers with min a and verbal cues for performance. Patient ambulates 10 feet then 2 feet with FWW, with min a and verbal cues for safety and progression. Patient becomes fatigued quickly during 2nd attempt and has to sit in the w/c with little warning. Patient in hip chair post treatment with all needs met, nursing notified, call light in hand, daughter in the room. PT Platform Operations Director Goals [facility] Goals PT [facility] Goals Time Frame: Apr 11, 2021 Roll Left & Right (QC): 4 Sit to Lying (QC): 4 Lying-Sitting on Side/Bed(QC): 4 Sit to Stand (QC): 4 Chair/Tdo-oe-Fvlcz Xfer(QC): 4 Toilet Transfer (QC): 4 Car Transfer (QC): 4 Does the Patient Walk: Yes Walk 10 feet (QC): 4 Walk 50ft with 2 Turns (QC): 4 Walk 150 ft (QC): 9 Walking 10ft on Uneven Surface: 4 1 Step (curb) (QC): 9 4 Steps (QC): 9 12 Steps (QC): 9 Picking up an Object (QC): 9 Wheel 50 feet with 2 turns (QC: 9 Type: N/A Wheel 150 feet: 9 Type: N/A PT Plan Treatment/Plan Treatment Plan: Continue Plan of Care Treatment Plan: Bed Mobility, Education, Functional Activity Glenn, Functional Strength, Gait, Safety, Therapeutic Exercise, Transfers Treatment Duration: Apr 11, 2021 Frequency: 6 times per week Estimated Hrs Per Day: .25 hour per day Patient and/or Family Agrees t: Yes Safety Risks/Education Patient Education: Gait Training, Transfer Techniques Teaching Recipient: Patient, Family Teaching Methods: Demonstration, Discussion Response to Teaching: Verbalize Understanding, Return Demonstration Time/GCodes Time In: 916 Time Out: 934 Total Billed Treatment Time: 18 Total Billed Treatment Visit, Ex SHAWN DOHERTY PT Mar 26, 2021 09:50
--- NOTE | 2021-03-26 11:54 | Cardiology Progress Note ---
Progress Note-Cardiology Events since last exam Date Seen by Provider: Mar 26, 2021 Time Seen by Provider: 11:53 Events since last exam We are following him due to coronary artery disease and aortic stenosis. The plan is to tentatively discharge to home early next week. He denies chest pain. He denies dyspnea at rest. He denies palpitations or syncope. His mild lower extremity edema has improved somewhat. Certain portions of this document may have been dictated utilizing voice recognition technology. Inherent to this technology, typographical and grammatical errors may exist. As much as I am diligent to identify and correct these mistakes, some errors may remain in the document. Vitals Last set of Vitals Signs Vital Signs 03/26/21 03/26/21 03/26/21 05:31 08:17 09:00 Temp 36.5 Pulse 65 Resp 18 B/P (MAP) 115/67 (83) Pulse Ox 94 O2 Delivery High Flow N/C O2 Flow Rate 1.00 Exam Vital Signs Vital Signs Date Time Temp Pulse Resp B/P (MAP) Pulse Ox O2 Delivery O2 Flow Rate FiO2 03/26/21 09:00 High Flow N/C 03/26/21 08:17 1.00 03/26/21 05:31 36.5 65 18 115/67 (83) 94 Physical Exam General: Alert. No acute distress. Eye: No xanthelasma. HENT: Normocephalic. Neck: Jugular venous pressure does not appear elevated. Respiratory: Lungs are clear to auscultation. Respirations are non-labored. Breath sounds are equal. Symmetrical chest wall expansion. Cardiovascular: Normal rate. Regular rhythm. 3/6 high-pitched systolic ejection murmur. No gallop. Trace bilateral pretibial edema, mainly confined to the feet. Feet have external pressure bandages in place. Gastrointestinal: Soft. Normal bowel sounds. Skin: Warm. Dry. Neurologic: Alert and oriented to person, place, time. Cranial nerves 3-11 grossly intact. Psychiatric: Cooperative. Appropriate mood & affect. Diagnosis/Problems Diagnosis/Problems (1) Non-ST elevation myocardial infarction (NSTEMI), initial care episode Assessment & Plan: He is not having any angina. On the other hand, he did not have chest pain at the time of admission. He is status post coronary stent placement during this admission. We will continue aspirin, clopidogrel, and statin medication. Beta-dannielle had not been prescribed due to his previous sepsis. His blood pressure is now improving. He does not have a history of hypertension. On 03/23 I started him on low-dose carvedilol. We will need to watch his blood pressure closely. At this point in time, there are not any acute, active cardiac issues. As such, cardiology will sign off. Please call if you have other questions or concerns. I have placed an order for the equal opportunity director to get him a follow-up appointment with Dr. Giraldo in 1 month (2) Aortic stenosis Assessment & Plan: This is severe. This will need to be followed longitudinally. There are no plans for valve replacement in the near future. He would need to be completely recovered from all infections before even considering valve replacement. (3) Mixed hyperlipidemia Assessment & Plan: Continue statin medication. His lipid panel shows his LDL level to be under great control. (4) Anemia Status: Acute Assessment & Plan: Exact etiology unclear. This appears to have stabilized. We will continue the aspirin and clopidogrel for his recent coronary stent. (5) Type 2 diabetes mellitus with complication Assessment & Plan: This is being managed by the hospitalist. (6) Obesity Status: Chronic Assessment & Plan: He needs to work on weight loss LEATHA MEDRANO JR, MD Mar 26, 2021 11:54
[2021-03-26] MEDS ORDERED: PATIENT MAY USE OWN MEDS, ALL MC SCH (12:15)
[2021-03-26] MEDS ORDERED: SAW500CA10 PO (12:31)
[2021-03-26] MEDS ORDERED: CALC-1121 PO (12:31)
[2021-03-26] MEDS ORDERED: ASCO1TAB36 PO (12:31)
[2021-03-26] MEDS ORDERED: CYAN50003 PO (12:31)
--- NOTE | 2021-03-26 14:32 | Occupational Ther Daily Note ---
OT Current Status-Daily Note Subjective Pt alert, lying in bed. Pt's daughter present in room. Daughter stated that pt had just returned to bed. No c/o pain. Mental Status/Objective Patient Orientation: Person, Place, Time, Situation Attachments: IV, Oxygen, Suprapubic Catheter ADL-Treatment Pt stated that sponge bath was already completed. Daughter asked if OT would be giving pt shower. PRUITT educated pt and daughter that since pt is at [facility] with bathing that it will be more beneficial to work on strengthening and stamina to regain more function. After therapy, pt lying in bed with call light/phone in reach. Therapy Code Descriptions/Definitions Functional [place] Measure: 0=Not Assessed/NA 4=Minimal Assistance 1=Total Assistance 5=Supervision or Setup 2=Maximal Assistance 6=Modified [place] 3=Moderate Assistance 7=Complete IndependenceSCALE: Activities may be completed with or without assistive devices. 5-Odtornjsbw-hlojqda completes the activity by him/herself with no assistance from a helper. 5-Set-up or Clean-up Assistance-helper sets up or cleans up; patient completes activity. [place] assists only prior to or following the activity. 4-Supervision or Touching Assistance-helper provides verbal cues and/or touching/steadying and/or contact guard assistance as patient completes act ivity. Assistance may be provided throughout the activity or intermittently. 3-Partial/Moderate Assistance-helper does LESS THAN HALF the effort. [place] lifts, holds or supports trunk or limbs, but provides less than half the effort. 2-Substantial/Maximal Assistance-helper does MORE THAN HALF the effort. [place] lifts or holds trunk or limbs and provides more than half the effort. 3-Vbzqtekng-fpmppc does ALL the effort. Patient does none of the effort to complete the activity. Or, the assistance of 2 or more helpers is required for the patient to complete the activity. If activity was not attempted, code reason: 7-Patient Refused. 9-Not Applicable-not attempted and the patient did not perform the activity before the current illness, exacerbation or injury. 10-Not Attempted due to Environmental Limitations-(lack of equipment, weather restraints, etc.). 88-Not Attempted due to Medical Conditions or Safety Concerns. Other Treatment Pt completed isometric rows to increase tricep strength, 3 sets 10 reps. Internal/external resistance with hand strengthening 3 sets 10 reps. OT Short Term Goals Short Term Goals Time Frame: Mar 31, 2021 Eatin Oral hygiene: 6 Toileting hygiene: 3 Shower/bathe self: 3 Upper body dressin Lower body dressin Putting on/taking off footwear: 3 OT Account Information Clerk Goals Account Information Clerk Goals Time Frame: Apr 07, 2021 Eating (QC): 6 Oral Hygiene (QC): 6 Toileting Hygiene (QC): 4 Shower/Bathe Self (QC): 4 Upper Body Dressing (QC): 4 Lower Body Dressing (QC): 4 On/Off Footwear (QC): 5 1=Demonstrate adherence to instructed precautions during ADL tasks. 2=Patient will verbalize/demonstrate understanding of assistive devices/modifications for ADL. 3=Patient will improve strength/tolerance for activity to enable patient to perform ADL's. OT Education/Plan Problem List/Assessment Assessment: Decreased Activ Tolerance, Decreased UE Strength, Impaired Self- Care Skills Discharge Recommendations Plan/Recommendations: Continue POC Treatment Plan/Plan of Care Patient would benefit from OT for education, treatment and training to promote independence in ADL's, mobility, safety and/or upper extremity function for A DL's. Plan of Care: ADL Retraining, Functional Mobility, Group Exercise/Act as Ind, UE Funct Exercise/Act, W/C Management Training Treatment Duration: Apr 07, 2021 Frequency: 5 times per week Estimated Hrs Per Day: .25 hour per day Agreement: Yes Rehab Potential: Poor Time/GCodes Start Time: 10:00 Stop Time: 10:20 Total Time Billed (hr/min): 20 Billed Treatment Time 1 visit-EX 1 (20 min) CIRO PIÑA Mar 26, 2021 14:32
--- NOTE | 2021-03-26 14:57 | Physical Therapy Daily Note ---
PT Daily Note-Current Subjective Patient lying supine in bed upon PT arrival. Patients daughter left the room prior to PT arrival and reports patient just got back into bed and has been in the chair twice today. Patient rates pain currently at 0/10. Transfers SCALE: Activities may be completed with or without assistive devices. 9-Hqptyyuumn-sjkteci completes the activity by him/herself with no assistance from a helper. 5-Set-up or Clean-up Assistance-helper sets up or cleans up; patient completes activity. [place] assists only prior to or following the activity. 4-Supervision or Touching Assistance-helper provides verbal cues and/or touching/steadying and/or contact guard assistance as patient completes activity. Assistance may be provided throughout the activity or intermittently. 3-Partial/Moderate Assistance-helper does LESS THAN HALF the effort. [place] lifts, holds or supports trunk or limbs, but provides less than half the effort. 2-Substantial/Maximal Assistance-helper does MORE THAN HALF the effort. [place] lifts or holds trunk or limbs and provides more than half the effort. 8-Yvwrgankt-gwjjgs does ALL the effort. Patient does none of the effort to complete the activity. Or, the assistance of 2 or more helpers is required for the patient to complete the activity. If activity was not attempted, code reason: 7-Patient Refused. 9-Not Applicable-not attempted and the patient did not perform the activity before the current illness, exacerbation or injury. 10-Not Attempted due to Environmental Limitations-(lack of equipment, weather restraints, etc.). 88-Not Attempted due to Medical Conditions or Safety Concerns. Exercises Supine Ex: Ankle pumps, Quad Set, Glut sets, Heel Slides, Short Arc Quads, Straight leg raise, Hip abd/add Supine Reps: 20 Assessment Current Status: Fair Progress Patient tolerated therapeutic exercise well. Fatigues quickly with left LE during hip abduction and SLR however and he reports "I'm just tired from sitting up all day." Patient in bed post treatment with all needs met, nursing notified, call light in hand. PT Snf Goals Snf Goals PT Snf Goals Time Frame: Apr 11, 2021 Roll Left & Right (QC): 4 Sit to Lying (QC): 4 Lying-Sitting on Side/Bed(QC): 4 Sit to Stand (QC): 4 Chair/Afy-kd-Vdhrx Xfer(QC): 4 Toilet Transfer (QC): 4 Car Transfer (QC): 4 Does the Patient Walk: Yes Walk 10 feet (QC): 4 Walk 50ft with 2 Turns (QC): 4 Walk 150 ft (QC): 9 Walking 10ft on Uneven Surface: 4 1 Step (curb) (QC): 9 4 Steps (QC): 9 12 Steps (QC): 9 Picking up an Object (QC): 9 Wheel 50 feet with 2 turns (QC: 9 Type: N/A Wheel 150 feet: 9 Type: N/A PT Plan Treatment/Plan Treatment Plan: Continue Plan of Care Treatment Plan: Bed Mobility, Education, Functional Activity [place], Functional Strength, Gait, Safety, Therapeutic Exercise, Transfers Treatment Duration: Apr 11, 2021 Frequency: 6 times per week Estimated Hrs Per Day: .25 hour per day Patient and/or Family Agrees t: Yes Time/GCodes Time In: 1351 Time Out: 1405 Total Billed Treatment Time: 14 Total Billed Treatment Visit, Ex SHAWN DOHERTY PT Mar 26, 2021 14:57
[2021-03-26] MEDS: DOCUSATE SODIUM 100 MG (COLACE) CAP PO PRN (16:56)
[2021-03-26] MEDS: PANTOPRAZOLE 40 MG (PROTONIX) TAB PO SCH (16:56)
[2021-03-26] MEDS: SENNA W/DOCUSATE (SENOKOT S) TABLET PO PRN (16:56)
[2021-03-26] MEDS: CALCIUM 600 MG PO SCH (16:57)
[2021-03-26] MEDS: D3 PO SCH (16:57)
[2021-03-26 17:05] VITALS: BP 116/59
[2021-03-26] MEDS: DULoxetine 30 MG (CYMBALTA) CAP PO SCH (20:28)
[2021-03-26] MEDS: MIRTAZAPINE 15 MG (REMERON) TAB PO SCH (20:29)
[2021-03-26] MEDS: MELATONIN 10 MG TABLET PO SCH (20:30)
[2021-03-26] MEDS: VIT C PO SCH (20:30)
[2021-03-26] MEDS: CRANBERRY EXTRACT PO SCH (20:30)
[2021-03-27] MEDS: LEVOTHYROXINE 125 MCG (LEVOTHROID) TABLET PO SCH (05:33)
[2021-03-27 05:37] LABS: HEMATOCRIT 34 % (40-54); HEMOGLOBIN 10.1 g/dL (13.3-17.7); MEAN CORPUSCULAR HEMOGLOBIN 28 pg (25-34); MEAN CORPUSCULAR HGB CONC 29 g/dL (32-36); MEAN CORPUSCULAR VOLUME 94 fL (80-99); MEAN PLATELET VOLUME 11.3 fL (9.0-12.2); PLATELET COUNT 213 10^3/uL (130-400); WHITE BLOOD COUNT 6.1 10^3/uL (4.3-11.0)
[2021-03-27 05:51] LABS: CALCIUM 9.6 MG/DL (8.5-10.1)
[2021-03-27 05:55] LABS: CREATININE SERUM 0.72 MG/DL (0.60-1.30)
[2021-03-27 06:00] VITALS: BP 116/56
--- NOTE | 2021-03-27 09:09 | Progress Note - Hospitalist ---
Subjective HPI/CC On Admission Date Seen by Provider: Mar 27, 2021 Time Seen by Provider: 09:03 Subjective/Events-last exam Pt reports feeling well today. Less tired. Discussed discharge plans. He thinks he will be well enough to go home Tuesday should his strength continue. We discussed that it's most important for him to get the care he needs whether that's at home or a facility and that if he doesn't feel safe to go home we need to consider SNF placement. He is understandably reluctant but expresses under standing and is hopeful with his continued effort with therapy he will be able to go home Tuesday and has been doing extra exercises when his daughter. Objective Exam Vital Signs Vital Signs Date Time Temp Pulse Resp B/P (MAP) Pulse Ox O2 Delivery O2 Flow Rate FiO2 03/27/21 08:08 91 High Flow N/C 1.00 03/27/21 06:00 36.1 64 18 116/56 (76) Capillary Refill : General Appearance: No Apparent Distress, WD/WN Respiratory: Lungs Clear, No Accessory Muscle Use Cardiovascular: Regular Rate, Rhythm, Systolic Murmur Gastrointestinal: Normal Bowel Sounds, Non Tender, Soft Neurologic/Psychiatric: Alert, Oriented x3 Results/Procedures Lab Laboratory Tests 03/27/21 05:03 Patient resulted labs reviewed. Assessment/Plan Assessment and Plan Assess & Plan/Chief Complaint Critical illness myopathy Recurrent pneumonia PT/OT May need custodial placement if cannot make strides on strength to be able to go home Discussed this with patient and hopeful for continued improvement and discharge on Tuesday Chronic hypoxic respiratory failure Pneumonia Oxygen requirements actually below baseline at 1lpm Has been stable on oral antibiotics since 03/23 NSTEMI CAD HTN Aortic stenosis Continue DAPT Anemia Fecal occult blood positive Baseline around 9-10 Hgb stable post-transfusion, 9.9 today No indication for further transfusion No evidence of significant ongoing bleeding Plan for outpatient colonoscopy Iron infusion 03/22 Hypothyroidism BPH s/p SPT Continue home meds when able Thyroid labs within normal limits Obesity Clinically significant, no acute management needs DVT prophylaxis: SCDs Acute hypoxic respiratory failure, resolved LIZANDRO LENTZ MD Mar 27, 2021 09:09
[2021-03-27] MEDS: CYANOCOBALAMIN PO SCH (09:14)
[2021-03-27] MEDS: SAW PALMETTO 1000 MG PO SCH (09:14)
[2021-03-27] MEDS: VIT C PO SCH ×2 (09:15→19:29)
[2021-03-27] MEDS: [UNRECOGNIZED DRUG - OTHER] PO SCH (09:15)
[2021-03-27] MEDS: CRANBERRY EXTRACT PO SCH ×2 (09:15→19:29)
[2021-03-27] MEDS: ESTER C 1000 MG PO SCH (09:16)
[2021-03-27] MEDS: [UNRECOGNIZED DRUG - OTHER] PO SCH (09:16)
[2021-03-27] MEDS: CLOPIDOGREL 75 MG (PLAVIX) TABLET PO SCH (09:17)
[2021-03-27] MEDS: PREGABALIN 150 MG (LYRICA) CAPSULE PO SCH ×2 (09:17→19:28)
[2021-03-27] MEDS: CEFDINIR 300 MG (OMNICEF) CAP PO SCH ×2 (09:17→19:28)
[2021-03-27] MEDS: ASPIRIN 81 MG CHEW (CHILDREN'S ASA) PO SCH (09:17)
[2021-03-27] MEDS: FAMOTIDINE 20 MG (PEPCID) TABLET PO SCH ×2 (09:17→19:28)
[2021-03-27] MEDS: LACTOBACILLUS ACIDOPHILUS (PROBIOTIC) CAPSULE PO SCH ×3 (09:17→16:43)
[2021-03-27] MEDS: MICONAZOLE 2% POWDER (DESENEX AF) 90 GM TOP SCH ×2 (09:18→19:30)
--- NOTE | 2021-03-27 12:00 | Physical Therapy Daily Note ---
PT Daily Note-Current Subjective Patient reports sleeping well last night. Rates his pain at 0/10 currently. Transfers SCALE: Activities may be completed with or without assistive devices. 2-Kebfmlziqa-iwamewg completes the activity by him/herself with no assistance from a helper. 5-Set-up or Clean-up Assistance-helper sets up or cleans up; patient completes activity. [place] assists only prior to or following the activity. 4-Supervision or Touching Assistance-helper provides verbal cues and/or touching/steadying and/or contact guard assistance as patient completes activity. Assistance may be provided throughout the activity or intermittently. 3-Partial/Moderate Assistance-helper does LESS THAN HALF the effort. [place] lifts, holds or supports trunk or limbs, but provides less than half the effort. 2-Substantial/Maximal Assistance-helper does MORE THAN HALF the effort. [place] lifts or holds trunk or limbs and provides more than half the effort. 2-Iwkbvhsdn-kxgupo does ALL the effort. Patient does none of the effort to complete the activity. Or, the assistance of 2 or more helpers is required for the patient to complete the activity. If activity was not attempted, code reason: 7-Patient Refused. 9-Not Applicable-not attempted and the patient did not perform the activity before the current illness, exacerbation or injury. 10-Not Attempted due to Environmental Limitations-(lack of equipment, weather restraints, etc.). 88-Not Attempted due to Medical Conditions or Safety Concerns. Sit to Stand (QC): 3 Chair/Sby-nj-Whdqu Xfer(QC): 3 Toilet Transfer (QC): 3 Gait Training Does the Patient Walk?: Yes Distance: 12, 15 feet Walk 10 feet (QC): 4 Gait Assistive Device: FWW Exercises Seated Therapy Exercises: Ankle pumps, Long arc quads, Hip flexion, Hamstring Curls, Hip abd/add, Glut set Seated Reps: 20 Assessment Current Status: Fair Progress Patient tolerated treatment well. Demonstrates fair overall improvement with all transfers and gait. Patient ambulates 12 feet, then 15 feet with min a, with FWW, and verbal cues for safety, progression, posture and conservation of energy. Patient required 1 sitting rest break during gait for fatigue, however was able to ambulate further the second attempt at gait. Patient performs LE therapeutic exercise as listed above. Patient in chair post treatment with daughter in the room, all needs met, nursing notified, and call light in hand. PT Senior Living Goals Senior Living Goals PT Senior Living Goals Time Frame: Apr 11, 2021 Roll Left & Right (QC): 4 Sit to Lying (QC): 4 Lying-Sitting on Side/Bed(QC): 4 Sit to Stand (QC): 4 Chair/Ngh-hh-Ibdmb Xfer(QC): 4 Toilet Transfer (QC): 4 Car Transfer (QC): 4 Does the Patient Walk: Yes Walk 10 feet (QC): 4 Walk 50ft with 2 Turns (QC): 4 Walk 150 ft (QC): 9 Walking 10ft on Uneven Surface: 4 1 Step (curb) (QC): 9 4 Steps (QC): 9 12 Steps (QC): 9 Picking up an Object (QC): 9 Wheel 50 feet with 2 turns (QC: 9 Type: N/A Wheel 150 feet: 9 Type: N/A PT Plan Treatment/Plan Treatment Plan: Continue Plan of Care Treatment Plan: Bed Mobility, Education, Functional Activity [place], Functional Strength, Gait, Safety, Therapeutic Exercise, Transfers Treatment Duration: Apr 11, 2021 Frequency: 6 times per week Estimated Hrs Per Day: .25 hour per day Patient and/or Family Agrees t: Yes Safety Risks/Education Patient Education: Gait Training Teaching Recipient: Patient, Family Teaching Methods: Demonstration, Discussion Response to Teaching: Verbalize Understanding, Return Demonstration Time/GCodes Time In: 940 Time Out: 1005 Total Billed Treatment Time: 25 Total Billed Treatment Visit, Shena Blake JOHN A PT Mar 27, 2021 12:00
--- NOTE | 2021-03-27 12:49 | Occupational Ther Daily Note ---
OT Current Status-Daily Note Subjective Pt alert, lying in bed. Daughter present in room. Pt and daughter stated that he had just gotten back into bed. Mental Status/Objective Patient Orientation: Person, Place, Time, Situation ADL-Treatment Therapy Code Descriptions/Definitions Functional [place] Measure: 0=Not Assessed/NA 4=Minimal Assistance 1=Total Assistance 5=Supervision or Setup 2=Maximal Assistance 6=Modified [place] 3=Moderate Assistance 7=Complete IndependenceSCALE: Activities may be completed with or without assistive devices. 2-Qadqvviotq-euzlcag completes the activity by him/herself with no assistance from a helper. 5-Set-up or Clean-up Assistance-helper sets up or cleans up; patient completes activity. [place] assists only prior to or following the activity. 4-Supervision or Touching Assistance-helper provides verbal cues and/or touching/steadying and/or contact guard assistance as patient completes activity. Assistance may be provided throughout the activity or intermittently. 3-Partial/Moderate Assistance-helper does LESS THAN HALF the effort. [place] lifts, holds or supports trunk or limbs, but provides less than half the effort. 2-Substantial/Maximal Assistance-helper does MORE THAN HALF the effort. [place] lifts or holds trunk or limbs and provides more than half the effort. 1-Pdakfzmjr-jcohmr does ALL the effort. Patient does none of the effort to complete the activity. Or, the assistance of 2 or more helpers is required for the patient to complete the activity. If activity was not attempted, code reason: 7-Patient Refused. 9-Not Applicable-not attempted and the patient did not perform the activity before the current illness, exacerbation or injury. 10-Not Attempted due to Environmental Limitations-(lack of equipment, weather restraints, etc.). 88-Not Attempted due to Medical Conditions or Safety Concerns. Other Treatment Per clinical judgment, pt is able to complete all areas of bathing/dressing that is PLOF. Pt working on bed mobility by scooting self up in bed with B elbow and feet, assist only to brace feet while pushing. Pt then completed isometric tricep strengthening, external/internal shldr rotation 1 set 10 x's each to strength B UE for daily functional tasks. After session, pt lying in bed with call light/phone in reach. All needs met in room. OT Short Term Goals Short Term Goals Time Frame: Mar 31, 2021 Eatin Oral hygiene: 6 Toileting hygiene: 3 Shower/bathe self: 3 Upper body dressin Lower body dressin Putting on/taking off footwear: 3 OT Staffing Administrator Goals Retirement Goals Time Frame: Apr 07, 2021 Eating (QC): 6 Oral Hygiene (QC): 6 Toileting Hygiene (QC): 4 Shower/Bathe Self (QC): 4 Upper Body Dressing (QC): 4 Lower Body Dressing (QC): 4 On/Off Footwear (QC): 5 1=Demonstrate adherence to instructed precautions during ADL tasks. 2=Patient will verbalize/demonstrate understanding of assistive devices/modifications for ADL. 3=Patient will improve strength/tolerance for activity to enable patient to perform ADL's. OT Education/Plan Problem List/Assessment Assessment: Decreased Activ Tolerance, Decreased UE Strength, Impaired Bed Mobility, Impaired Self-Care Skills Discharge Recommendations Plan/Recommendations: Continue POC Treatment Plan/Plan of Care Patient would benefit from OT for education, treatment and training to promote independence in ADL's, mobility, safety and/or upper extremity function for ADL's. Plan of Care: ADL Retraining, Functional Mobility, Group Exercise/Act as Ind, UE Funct Exercise/Act, W/C Management Training Treatment Duration: Apr 07, 2021 Frequency: 5 times per week Estimated Hrs Per Day: .25 hour per day Agreement: Yes Rehab Potential: Poor Time/GCodes Start Time: 11:30 Stop Time: 11:50 Total Time Billed (hr/min): 20 Billed Treatment Time 1 visit-EX 1 (20 min) CIRO PIÑA Mar 27, 2021 12:49
[2021-03-27] MEDS: SENNA W/DOCUSATE (SENOKOT S) TABLET PO PRN (13:25)
[2021-03-27] MEDS: DOCUSATE SODIUM 100 MG (COLACE) CAP PO PRN (13:25)
--- NOTE | 2021-03-27 15:16 | Physical Therapy Daily Note ---
PT Daily Note-Current Subjective Pt in bed upon arrival and agrees to tx. Pt states he is very tired in pm and request to remain in bed for tx Mental Status Patient Orientation: Person, Place, Time, Situation Transfers SCALE: Activities may be completed with or without assistive devices. 2-Pbgongwxqb-seytqfg completes the activity by him/herself with no assistance from a helper. 5-Set-up or Clean-up Assistance-helper sets up or cleans up; patient completes activity. [place] assists only prior to or following the activity. 4-Supervision or Touching Assistance-helper provides verbal cues and/or touching/steadying and/or contact guard assistance as patient completes activity. Assistance may be provided throughout the activity or intermittently. 3-Partial/Moderate Assistance-helper does LESS THAN HALF the effort. [place] lifts, holds or supports trunk or limbs, but provides less than half the effort. 2-Substantial/Maximal Assistance-helper does MORE THAN HALF the effort. [place] lifts or holds trunk or limbs and provides more than half the effort. 8-Uhxehecbm-svwgbg does ALL the effort. Patient does none of the effort to complete the activity. Or, the assistance of 2 or more helpers is required for the patient to complete the activity. If activity was not attempted, code reason: 7-Patient Refused. 9-Not Applicable-not attempted and the patient did not perform the activity before the current illness, exacerbation or injury. 10-Not Attempted due to Environmental Limitations-(lack of equipment, weather restraints, etc.). 88-Not Attempted due to Medical Conditions or Safety Concerns. Exercises Supine Ex: Ankle pumps, Quad Set, Glut sets, Heel Slides, Short Arc Quads, Straight leg raise, Hip abd/add Supine Reps: 20 Treatments Pt in bed and request to remain in bed for pm tx. Pt completes supine exercises. Pt unable to complete full ROM on B knees, and unable to complete ankle pumps on R LE. Pt remains in bed with all needs met call light in hand. Assessment Current Status: Fair Progress Pt increasing in endurance and strength. Poor ROM in B knees and R ankle PT Machine Tank Operator Goals Machine Tank Operator Goals PT Machine Tank Operator Goals Time Frame: Apr 11, 2021 Roll Left & Right (QC): 4 Sit to Lying (QC): 4 Lying-Sitting on Side/Bed(QC): 4 Sit to Stand (QC): 4 Chair/Dqk-zm-Yuqlx Xfer(QC): 4 Toilet Transfer (QC): 4 Car Transfer (QC): 4 Does the Patient Walk: Yes Walk 10 feet (QC): 4 Walk 50ft with 2 Turns (QC): 4 Walk 150 ft (QC): 9 Walking 10ft on Uneven Surface: 4 1 Step (curb) (QC): 9 4 Steps (QC): 9 12 Steps (QC): 9 Picking up an Object (QC): 9 Wheel 50 feet with 2 turns (QC: 9 Type: N/A Wheel 150 feet: 9 Type: N/A PT Plan Treatment/Plan Treatment Plan: Continue Plan of Care Treatment Plan: Bed Mobility, Education, Functional Activity [place], Functional Strength, Gait, Safety, Therapeutic Exercise, Transfers Treatment Duration: Apr 11, 2021 Frequency: 6 times per week Estimated Hrs Per Day: .25 hour per day Patient and/or Family Agrees t: Yes Time/GCodes Time In: 1453 Time Out: 1508 Total Billed Treatment Time: 15 Total Billed Treatment 1, Ex RIAN MATIAS BARN AND PROPERTY MANAGER Mar 27, 2021 15:16
[2021-03-27] MEDS: PANTOPRAZOLE 40 MG (PROTONIX) TAB PO SCH (16:43)
[2021-03-27] MEDS: D3 PO SCH (16:44)
[2021-03-27] MEDS: CALCIUM 600 MG PO SCH (16:44)
[2021-03-27 17:03] VITALS: BP 125/59
[2021-03-27 19:27] VITALS: BP 123/64
[2021-03-27] MEDS: MIRTAZAPINE 15 MG (REMERON) TAB PO SCH (19:28)
[2021-03-27] MEDS: DULoxetine 30 MG (CYMBALTA) CAP PO SCH (19:28)
[2021-03-27] MEDS: MELATONIN 10 MG TABLET PO SCH (19:28)
[2021-03-28 06:04] VITALS: BP 105/58
[2021-03-28] MEDS: LEVOTHYROXINE 125 MCG (LEVOTHROID) TABLET PO SCH (06:05)
[2021-03-28 08:35] VITALS: BP 105/58
[2021-03-28] MEDS: FAMOTIDINE 20 MG (PEPCID) TABLET PO SCH ×2 (09:48→19:34)
[2021-03-28] MEDS: PREGABALIN 150 MG (LYRICA) CAPSULE PO SCH ×2 (09:48→19:35)
[2021-03-28] MEDS: CLOPIDOGREL 75 MG (PLAVIX) TABLET PO SCH (09:48)
[2021-03-28] MEDS: ASPIRIN 81 MG CHEW (CHILDREN'S ASA) PO SCH (09:48)
[2021-03-28] MEDS: LACTOBACILLUS ACIDOPHILUS (PROBIOTIC) CAPSULE PO SCH ×3 (09:48→17:27)
[2021-03-28] MEDS: CEFDINIR 300 MG (OMNICEF) CAP PO SCH ×2 (09:48→19:35)
[2021-03-28] MEDS: VIT C PO SCH ×2 (09:52→19:34)
[2021-03-28] MEDS: CRANBERRY EXTRACT PO SCH ×2 (09:52→19:34)
[2021-03-28] MEDS: CYANOCOBALAMIN PO SCH (09:52)
[2021-03-28] MEDS: ESTER C 1000 MG PO SCH (09:53)
[2021-03-28] MEDS: SAW PALMETTO 1000 MG PO SCH (09:54)
[2021-03-28] MEDS: [UNRECOGNIZED DRUG - OTHER] PO SCH (09:55)
[2021-03-28] MEDS: [UNRECOGNIZED DRUG - OTHER] PO SCH (09:55)
[2021-03-28] MEDS: MICONAZOLE 2% POWDER (DESENEX AF) 90 GM TOP SCH ×2 (09:56→19:35)
--- NOTE | 2021-03-28 11:15 | Physical Therapy Daily Note ---
PT Daily Note-Current Subjective Pt in bed on arrival. Agreeable to ambulation and wants to sit in the chair after treatment. Mental Status Patient Orientation: Person, Place, Time, Situation Attachments: [place] Catheter Transfers SCALE: Activities may be completed with or without assistive devices. 3-Dilkuyxngh-yjeusbl completes the activity by him/herself with no assistance from a helper. 5-Set-up or Clean-up Assistance-helper sets up or cleans up; patient completes activity. [place] assists only prior to or following the activity. 4-Supervision or Touching Assistance-helper provides verbal cues and/or touching/steadying and/or contact guard assistance as patient completes activity. Assistance may be provided throughout the activity or intermittently. 3-Partial/Moderate Assistance-helper does LESS THAN HALF the effort. [place] lifts, holds or supports trunk or limbs, but provides less than half the effort. 2-Substantial/Maximal Assistance-helper does MORE THAN HALF the effort. [place] lifts or holds trunk or limbs and provides more than half the effort. 2-Dmhsjphey-uofprq does ALL the effort. Patient does none of the effort to complete the activity. Or, the assistance of 2 or more helpers is required for the patient to complete the activity. If activity was not attempted, code reason: 7-Patient Refused. 9-Not Applicable-not attempted and the patient did not perform the activity before the current illness, exacerbation or injury. 10-Not Attempted due to Environmental Limitations-(lack of equipment, weather restraints, etc.). 88-Not Attempted due to Medical Conditions or Safety Concerns. Roll Left & Right (QC): 4 Sit to Lying (QC): 4 Lying to Sitting/Side of Bed(Q: 3 Sit to Stand (QC): 3 Chair/Cmf-iy-Mtcht Xfer(QC): 3 Gait Training Does the Patient Walk?: Yes Distance: 8ft Gait Persons Needed: 1 Gait Assistive Device: FWW Needed significant assist with sit to stand and was not feeling stable enough to ambulate any further. Exercises Seated Therapy Exercises: LE Protocol Seated Reps: 15 Assessment Current Status: Fair Progress Limited ambulation due to LE fatigue. Oxygen saturation at 87% after ambulation. Informed RT. PT [facility] Goals [facility] Goals PT [facility] Goals Time Frame: Apr 11, 2021 Roll Left & Right (QC): 4 Sit to Lying (QC): 4 Lying-Sitting on Side/Bed(QC): 4 Sit to Stand (QC): 4 Chair/Jfh-qh-Kgqba Xfer(QC): 4 Toilet Transfer (QC): 4 Car Transfer (QC): 4 Does the Patient Walk: Yes Walk 10 feet (QC): 4 Walk 50ft with 2 Turns (QC): 4 Walk 150 ft (QC): 9 Walking 10ft on Uneven Surface: 4 1 Step (curb) (QC): 9 4 Steps (QC): 9 12 Steps (QC): 9 Picking up an Object (QC): 9 Wheel 50 feet with 2 turns (QC: 9 Type: N/A Wheel 150 feet: 9 Type: N/A PT Plan Treatment/Plan Treatment Plan: Continue Plan of Care Treatment Plan: Bed Mobility, Education, Functional Activity Glenn, Functional Strength, Gait, Safety, Therapeutic Exercise, Transfers Treatment Duration: Apr 11, 2021 Frequency: 6 times per week Estimated Hrs Per Day: .25 hour per day Patient and/or Family Agrees t: Yes Time/GCodes Time In: 0840 Time Out: 0855 Total Billed Treatment Time: 15 Total Billed Treatment 1, gt 15 MILLA MEANS PT Mar 28, 2021 11:15
[2021-03-28] MEDS: PANTOPRAZOLE 40 MG (PROTONIX) TAB PO SCH (17:27)
[2021-03-28] MEDS: D3 PO SCH (17:27)
[2021-03-28] MEDS: CALCIUM 600 MG PO SCH (17:27)
[2021-03-28 17:48] VITALS: BP 113/59
[2021-03-28 19:32] VITALS: BP 138/68
[2021-03-28] MEDS: MELATONIN 10 MG TABLET PO SCH (19:34)
[2021-03-28] MEDS: MIRTAZAPINE 15 MG (REMERON) TAB PO SCH (19:34)
[2021-03-28] MEDS: DULoxetine 30 MG (CYMBALTA) CAP PO SCH (19:35)
[2021-03-29 06:00] VITALS: BP 132/64
[2021-03-29] MEDS: LEVOTHYROXINE 125 MCG (LEVOTHROID) TABLET PO SCH (06:01)
[2021-03-29 06:04] LABS: HEMATOCRIT 35 % (40-54); HEMOGLOBIN 10.3 g/dL (13.3-17.7); MEAN CORPUSCULAR HEMOGLOBIN 27 pg (25-34); MEAN CORPUSCULAR HGB CONC 30 g/dL (32-36); MEAN CORPUSCULAR VOLUME 92 fL (80-99); MEAN PLATELET VOLUME 11.5 fL (9.0-12.2); PLATELET COUNT 213 10^3/uL (130-400)
[2021-03-29 06:16] LABS: POTASSIUM 4.2 MMOL/L (3.6-5.0)
[2021-03-29 06:17] LABS: CALCIUM 9.4 MG/DL (8.5-10.1)
[2021-03-29 06:21] LABS: CREATININE SERUM 0.79 MG/DL (0.60-1.30)
[2021-03-29] MEDS: CEFDINIR 300 MG (OMNICEF) CAP PO SCH ×2 (08:27→19:26)
[2021-03-29] MEDS: CLOPIDOGREL 75 MG (PLAVIX) TABLET PO SCH (08:27)
[2021-03-29] MEDS: ASPIRIN 81 MG CHEW (CHILDREN'S ASA) PO SCH (08:27)
[2021-03-29] MEDS: FAMOTIDINE 20 MG (PEPCID) TABLET PO SCH ×2 (08:27→19:26)
[2021-03-29] MEDS: LACTOBACILLUS ACIDOPHILUS (PROBIOTIC) CAPSULE PO SCH ×3 (08:27→18:13)
[2021-03-29] MEDS: CRANBERRY EXTRACT PO SCH ×2 (08:28→19:27)
[2021-03-29] MEDS: VIT C PO SCH ×2 (08:28→19:27)
[2021-03-29] MEDS: SAW PALMETTO 1000 MG PO SCH (08:29)
[2021-03-29] MEDS: [UNRECOGNIZED DRUG - OTHER] PO SCH (08:30)
[2021-03-29] MEDS: [UNRECOGNIZED DRUG - OTHER] PO SCH (08:31)
[2021-03-29] MEDS: CYANOCOBALAMIN PO SCH (08:32)
[2021-03-29] MEDS: ESTER C 1000 MG PO SCH (08:32)
[2021-03-29] MEDS: PREGABALIN 150 MG (LYRICA) CAPSULE PO SCH ×2 (08:37→19:26)
[2021-03-29] MEDS: MICONAZOLE 2% POWDER (DESENEX AF) 90 GM TOP SCH ×2 (08:37→19:28)
[2021-03-29] MEDS: CALCIUM 600 MG PO SCH (17:00)
[2021-03-29] MEDS: D3 PO SCH (17:00)
[2021-03-29 17:10] VITALS: BP 121/59
[2021-03-29] MEDS: PANTOPRAZOLE 40 MG (PROTONIX) TAB PO SCH (18:13)
[2021-03-29] MEDS: MIRTAZAPINE 15 MG (REMERON) TAB PO SCH (19:26)
[2021-03-29] MEDS: MELATONIN 10 MG TABLET PO SCH (19:26)
[2021-03-29] MEDS: DULoxetine 30 MG (CYMBALTA) CAP PO SCH (19:26)
[2021-03-30 05:13] VITALS: BP 105/58
[2021-03-30] MEDS: LEVOTHYROXINE 125 MCG (LEVOTHROID) TABLET PO SCH (05:41)
[2021-03-30] MEDS: SAW PALMETTO 1000 MG PO SCH (07:55)
[2021-03-30] MEDS: ESTER C 1000 MG PO SCH (07:55)
[2021-03-30] MEDS: [UNRECOGNIZED DRUG - OTHER] PO SCH (07:56)
[2021-03-30] MEDS: CRANBERRY EXTRACT PO SCH (07:56)
[2021-03-30] MEDS: CYANOCOBALAMIN PO SCH (07:56)
[2021-03-30] MEDS: VIT C PO SCH (07:56)
[2021-03-30] MEDS: CLOPIDOGREL 75 MG (PLAVIX) TABLET PO SCH (07:57)
[2021-03-30] MEDS: FAMOTIDINE 20 MG (PEPCID) TABLET PO SCH (07:57)
[2021-03-30] MEDS: PREGABALIN 150 MG (LYRICA) CAPSULE PO SCH (07:57)
[2021-03-30] MEDS: ASPIRIN 81 MG CHEW (CHILDREN'S ASA) PO SCH (07:58)
[2021-03-30] MEDS: LACTOBACILLUS ACIDOPHILUS (PROBIOTIC) CAPSULE PO SCH (07:58)
[2021-03-30] MEDS: [UNRECOGNIZED DRUG - OTHER] PO SCH (07:58)
[2021-03-30] MEDS: CEFDINIR 300 MG (OMNICEF) CAP PO SCH (07:58)
--- NOTE | 2021-03-30 09:06 | Physical Therapy Daily Note ---
PT Daily Note-Current Subjective Patient sitting on edge of bed with ENGINEERING PSYCHOLOGIST and daughter assisting patient to the chair. Patient reports 0/10 pain currently and is agreeable to PT treatment. Transfers SCALE: Activities may be completed with or without assistive devices. 2-Xtbrpinben-riyhflb completes the activity by him/herself with no assistance from a helper. 5-Set-up or Clean-up Assistance-helper sets up or cleans up; patient completes activity. [place] assists only prior to or following the activity. 4-Supervision or Touching Assistance-helper provides verbal cues and/or touching/steadying and/or contact guard assistance as patient completes activity. Assistance may be provided throughout the activity or intermittently. 3-Partial/Moderate Assistance-helper does LESS THAN HALF the effort. [place] lifts, holds or supports trunk or limbs, but provides less than half the effort. 2-Substantial/Maximal Assistance-helper does MORE THAN HALF the effort. [place] lifts or holds trunk or limbs and provides more than half the effort. 0-Lpezkkovl-upokcn does ALL the effort. Patient does none of the effort to complete the activity. Or, the assistance of 2 or more helpers is required for the patient to complete the activity. If activity was not attempted, code reason: 7-Patient Refused. 9-Not Applicable-not attempted and the patient did not perform the activity before the current illness, exacerbation or injury. 10-Not Attempted due to Environmental Limitations-(lack of equipment, weather restraints, etc.). 88-Not Attempted due to Medical Conditions or Safety Concerns. Sit to Stand (QC): 3 Chair/Iro-xz-Uhwcn Xfer(QC): 3 Toilet Transfer (QC): 3 Gait Training Does the Patient Walk?: Yes Distance: 5 feet Gait Assistive Device: FWW Exercises Seated Therapy Exercises: Ankle pumps, Sit to stand, Long arc quads, Hip flexion, Hamstring Curls, Hip abd/add, Glut set Seated Reps: 20 Assessment Current Status: Fair Progress Patient required min A for all observed transfers. Patient O2 stayed above 91% on 1 L O2. Patient ambulates 5 feet to the chair with min A with FWW. Patient performs LE therapeutic exercise as listed above. Patient performs sit to stand x 5 with sitting rest breaks. Patient in chair post treatment with all needs met, nursing notified, call light in reach, daughter in the room. PT Alf Goals [employer] [place] Goals PT Alf Goals Time Frame: Apr 11, 2021 Roll Left & Right (QC): 4 Sit to Lying (QC): 4 Lying-Sitting on Side/Bed(QC): 4 Sit to Stand (QC): 4 Chair/Tlz-zt-Kcszd Xfer(QC): 4 Toilet Transfer (QC): 4 Car Transfer (QC): 4 Does the Patient Walk: Yes Walk 10 feet (QC): 4 Walk 50ft with 2 Turns (QC): 4 Walk 150 ft (QC): 9 Walking 10ft on Uneven Surface: 4 1 Step (curb) (QC): 9 4 Steps (QC): 9 12 Steps (QC): 9 Picking up an Object (QC): 9 Wheel 50 feet with 2 turns (QC: 9 Type: N/A Wheel 150 feet: 9 Type: N/A PT Plan Treatment/Plan Treatment Plan: Continue Plan of Care Treatment Plan: Bed Mobility, Education, Functional Activity Glenn, Functional Strength, Gait, Safety, Therapeutic Exercise, Transfers Treatment Duration: Apr 11, 2021 Frequency: 6 times per week Estimated Hrs Per Day: .25 hour per day Patient and/or Family Agrees t: Yes Safety Risks/Education Patient Education: Transfer Techniques, Safety Issues Teaching Recipient: Patient, Family Teaching Methods: Demonstration, Discussion Response to Teaching: Verbalize Understanding, Reinforcement Needed Time/GCodes Time In: 818 Time Out: 843 Total Billed Treatment Time: 25 Total Billed Treatment Visit, ExMARIA D JOHN A PT Mar 30, 2021 09:06
--- NOTE | 2021-03-30 10:36 | Occupational Ther Daily Note ---
OT Current Status-Daily Note Subjective Pt alert, laying in bed with HOB raised when therapy entered. Daughter present in room. Pt agreed to therapy. No c/o pain reported. ADL-Treatment Therapy Code Descriptions/Definitions Functional [place] Measure: 0=Not Assessed/NA 4=Minimal Assistance 1=Total Assistance 5=Supervision or Setup 2=Maximal Assistance 6=Modified [place] 3=Moderate Assistance 7=Complete IndependenceSCALE: Activities may be completed with or without assistive devices. 8-Iqiudxbcei-aejsqlb completes the activity by him/herself with no assistance from a helper. 5-Set-up or Clean-up Assistance-helper sets up or cleans up; patient completes activity. [place] assists only prior to or following the activity. 4-Supervision or Touching Assistance-helper provides verbal cues and/or touching/steadying and/or contact guard assistance as patient completes activity. Assistance may be provided throughout the activity or intermittently. 3-Partial/Moderate Assistance-helper does LESS THAN HALF the effort. [place] lifts, holds or supports trunk or limbs, but provides less than half the effort. 2-Substantial/Maximal Assistance-helper does MORE THAN HALF the effort. [place] lifts or holds trunk or limbs and provides more than half the effort. 0-Tacptvjqs-cxqmke does ALL the effort. Patient does none of the effort to complete the activity. Or, the assistance of 2 or more helpers is required for the patient to complete the activity. If activity was not attempted, code reason: 7-Patient Refused. 9-Not Applicable-not attempted and the patient did not perform the activity before the current illness, exacerbation or injury. 10-Not Attempted due to Environmental Limitations-(lack of equipment, weather restraints, etc.). 88-Not Attempted due to Medical Conditions or Safety Concerns. Other Treatment Skilled instruction required of BUE red theraband exercises. Pt completed x2 sets of 10 reps of red BUE red theraband exercises in all planes while laying in bed to increase BUE strength for improved independence with daily task.Pt required verbal/physical demonstration of exercises and was able to return demonstration. Pt tolerated exercises well. Pt required resting break in between set due to decreased activity tolerance. After session, pt laying in bed. All needs met and call light in reach. Education OT Patient Education: Correct positioning, Energy conservation, Exercise program, Home exercise program Teaching Recipient: Patient, Family Teaching Methods: Demonstration Response to Teaching: Verbalize Understanding, Return Demonstration OT Short Term Goals Short Term Goals Time Frame: Mar 31, 2021 Eatin Oral hygiene: 6 Toileting hygiene: 3 Shower/bathe self: 3 Upper body dressin Lower body dressin Putting on/taking off footwear: 3 OT Automatic Grinding Machine Operator Goals Automatic Grinding Machine Operator Goals Time Frame: Apr 07, 2021 Eating (QC): 6 Oral Hygiene (QC): 6 Toileting Hygiene (QC): 4 Shower/Bathe Self (QC): 4 Upper Body Dressing (QC): 4 Lower Body Dressing (QC): 4 On/Off Footwear (QC): 5 1=Demonstrate adherence to instructed precautions during ADL tasks. 2=Patient will verbalize/demonstrate understanding of assistive devices /modifications for ADL. 3=Patient will improve strength/tolerance for activity to enable patient to perform ADL's. OT Education/Plan Problem List/Assessment Assessment: Decreased Activ Tolerance, Decreased UE Strength, Impaired Self- Care Skills Discharge Recommendations Plan/Recommendations: Continue POC Treatment Plan/Plan of Care Patient would benefit from OT for education, treatment and training to promote independence in ADL's, mobility, safety and/or upper extremity function for ADL's. Plan of Care: ADL Retraining, Functional Mobility, Group Exercise/Act as Ind, UE Funct Exercise/Act, W/C Management Training Treatment Duration: Apr 07, 2021 Frequency: 5 times per week Estimated Hrs Per Day: .25 hour per day Agreement: Yes Rehab Potential: Poor Time/GCodes Start Time: 10:15 Stop Time: 10:30 Total Time Billed (hr/min): 30 Billed Treatment Time 1 visit- EX 1 (15 mins) TRISTA OLEA Mar 30, 2021 10:36
[2021-03-30 12:00] VITALS: BP 122/60
[2021-03-30] MEDS ORDERED: DULO30CA3 PO (12:37)
[2021-03-30] MEDS ORDERED: CLOP75TA28 PO (12:37)
[2021-03-30] MEDS ORDERED: MIRT-47 PO (12:37)
[2021-03-30] MEDS ORDERED: CARV3.122 PO (12:37)
--- NOTE | 2021-03-30 12:56 | Discharge Summary ---
Discharge Summary Instructions for Patient Via [facility], Assessment/Instructions Take medications as prescribed. Follow-up with your primary care physician. Follow-up with cardiology. Return with worsening shortness of breath or if you feel like you are getting worse. Physician to follow Patient: Isreal Discharge Diet for Home: ADA Diet Hospital Course Date of Admission: Mar 16, 2021 at 15:50 Admission Diagnosis : Acute on chronic respiratory failure with hypoxia due to recurrent pneumonia Family Physician/Provider: Mirza Bach MD Date of Discharge: 03/30/21 Discharge Diagnosis: Acute on chronic respiratory failure with hypoxia due to recurrent pneumonia Hospital Course: Ilia Barbour is an 80 year old male with multiple medical comorbidities who was admitted to swing bed due to acute on chronic respiratory failure with hypoxia due to recurrent pneumonia. He was treated with IV Merrem. His oxygen requirement returned to baseline. His course was complicated by NSTEMI and coronary stent placement. He was started on Plavix and continued on Aspirin. He had issues with anemia. He had a prior FOBT which was positive. His hemoglobin stabilized and there was no evidence of ongoing bleeding. He will need a colonoscopy as an outpatient. He also had issues with debility and worked with PT and OT. He was set up with home health care on discharge. He had an overnight oxygen study which showed desaturations. He should wear 4 L at night. He needs an outpatient sleep study to evaluate for CPAP. He was discharged home in stable condition. He was very debilitated and will likely require long term placement in the near future. Labs and Pending Lab Test: Home Meds Active Mirtazapine 15 Mg Tab.rapdis 7.5 Mg PO HS 30 Days Cymbalta (Duloxetine HCl) 30 Mg Capsule.dr 60 Mg PO HS 30 Days Carvedilol 3.125 Mg Tablet 3.125 Mg PO BID 30 Days Clopidogrel (Clopidogrel Bisulfate) 75 Mg Tablet 75 Mg PO DAILY 30 Days Reported Poornima-C 1,000 mg Tablet (Ascorbate Calcium/Bioflavonoid) 1 Each Tablet 1 Each PO DAILY Calcium 600 mg-D3 20 Mcg Cplt (Calcium Carbonate/Vitamin D3) 1 Each Tablet 1 Eac h PO DAILY@1700 Vitamin B-12 (Cyanocobalamin (Vitamin B-12)) 5,000 Mcg Tab.rapdis 5,000 Mcg PO DAILY Saw [place] 500 Mg Capsule 1,000 Mg PO DAILY Acid Drier Tender (FAMOTIDINE) (Famotidine) 20 Mg Tablet 20 Mg PO BID Cefdinir 300 Mg Capsule 300 Mg PO BID TAKES 03-12-2021 #20/10 DAY SUPPLY Acidophilus-Pectin Capsule (Lactobacillus Acidophilus/Pect) 1 Each Capsule 2 Each PO TIDWM Nystatin 15 Gm Cream..g. 1 Appful TP TID Simethicone 80 Mg Tab.chew 80 Mg PO Q4H PRN Lanolin (Modified Lanolin) 40 Gm Cream..g. 1 Applic TP UD PRN Toviaz (Fesoterodine Fumarate) 4 Mg Tab.sr.24h 4 Mg PO DAILY Melatonin 10 Mg Tab.rapdis 10-20 Mg PO HS PRN Low Dose Aspirin EC (Aspirin) 81 Mg Tablet.dr 81 Mg PO DAILY Potassium Chloride 10 Meq Capsule.er 10 Meq PO DAILY Furosemide 40 Mg Tablet 40 Mg PO DAILY Senna-Plus Tablet (Sennosides/Docusate Sodium) 1 Each Tablet 2 Tab PO BID Nitrofurantoin (Nitrofurantoin Macrocrystal) 100 Mg Capsule 100 Mg PO 1700 W/DINNER Tramadol HCl 50 Mg Tablet 50 Mg PO Q6H PRN Azo Cranberry Softgel (Cranberry Extract/Vit C) 1 Each Capsule 1 Each PO BID Synthroid (Levothyroxine Sodium) 200 Mcg Tablet 200 Mcg PO DAILY TAKES 200MCG +50MCG Lyrica (Pregabalin) 150 Mg Capsule 150 Mg PO BID Glucosamine Chondroitin Tab (Gluc Beckham/Chondro Beckham A/Vit C/Mn) 1 Each Tablet 1 Tab PO DAILY Ruben Multi For Men Tablet (Mv-Mn/FA/Lycopene/Lut/Hb#178) 1 Each Tablet 2 Tab PO DAILY Fish Oil 1,000 mg Capsule (Talmo 3 Polyunsat Fatty Acids) 1,000 Mg Cap 1,000 Mg PO DAILY Zinc 50 Mg Tablet 50 Mg PO DAILY Atorvastatin Calcium 40 Mg Tablet 40 Mg PO DAILY Synthroid (Levothyroxine Sodium) 50 Mcg Tablet 50 Mcg PO DAILY TAKES 200MCG +50MCG Metformin HCl ER (Metformin HCl) 1,000 Mg Tab.er.24 1,000 Mg PO BID WITH MEALS Pantoprazole Sodium 40 Mg Tablet.dr 40 Mg PO 1700 Consulations Cardiology Patient Allergies: Coded Allergies: Sulfa (Sulfonamide Antibiotics) (Verified Allergy, Intermediate, RASH, CHILLS, 2/4/20) Height (Feet): 5 Height (Inches): 11.00 Weight (Pounds): 282 Weight (Ounces): 0.0 Home Health Need/Face to Face Date of Face to Face: Mar 30, 2021 Clinical Findings: Generalized weakness and fatigue, Instability, Muscle weakness, Shortness of breath, Unsteady gait I have seen Pt fzqc-yq-wbba: Yes Discharged To: Home Diagnosis/Conditions: Chronic respiratory failure with hypoxia Hypertension Coronary artery disease Aortic stenosis Anemia Hypothyroidism BPH Obesity Critical illness myopathy Problems/Diagnosis/Condition: (1) Acute on chronic respiratory failure with hypoxia (2) Recurrent pneumonia (3) NSTEMI (non-ST elevated myocardial infarction) (4) Critical illness myopathy (5) Obesity (6) Aortic stenosis (7) Coronary artery disease with unstable angina pectoris (8) T2DM (type 2 diabetes mellitus) (9) BPH (benign prostatic hyperplasia) (10) Hypothyroidism (11) Essential hypertension (12) Status post coronary artery stent placement Patient is Homebound due to: [place] fall risk due to instabilty, Muscle weakness, Shortness of breath/distress Homebound Status Due to the above stated illness, injury or surgical procedure (medical condition or diagnosis) and associated clinical findings, the patient is homebound because of his/her inability to leave home except with aid of a supportive device and/or person AND leaving the home requires a considerable and taxing effort or is medically contraindicated. Pt req the following assistanc: Aid of another person, Wheelchair Home Health Nursing Orders Home Health Services Order: Nursing Services, Space Control Agent-Evaluate & Treat, Physical Therapy-Evaluate & Treat Therapy Orders Therapy Orders: OT (must have SN or PT order), Physical Therapy Therapy Specific Orders: Eval assistive deivces, Teach enviro modifications/safety, Gait training, Increase strength/endurance Certify Stmt I certify that this patient is under my care and that I, a nurse practitioner or a physician; a catalog library assistant working with me, had a face to face encounter that - meets the physician face to face encounter requirements with this patient as dated. Discharge Physical Exam General: Alert, Oriented X3, Cooperative, No Acute Distress HEENT: Atraumatic, EOMI, Mucous Memb Moist/[place] Lungs: Clear to Auscultation, Normal Air Movement Heart: Regular Rate, Other (systolic murmur) Abdomen: Normal Bowel Sounds, Soft, No Tenderness Extremities: No Tenderness/Swelling, Other (lower extremity edema) Skin: No Rashes, No Significant Lesion Neuro: Normal Speech, Normal Tone Psych/Mental Status: Mental Status NL, Mood NL NAREN MCMAHON MD Mar 30, 2021 12:50
[2021-03-30 15:22] VITALS: BP 122/60
--- NOTE | 2021-03-31 14:16 | Therapy Team Discharge Summary ---
Therapy Discharge Summary Discharge Recommendations Date of Discharge Mar 30, 2021 at 13:52 Occupational Therapy Pt admitted to [facility] status secondary to worsening pneumonia. At time of eval, he was dependent for toileting, lower body dressing, and bathing. Set up for eating and oral care. While here, OT focused on endurance, UE strengthening, balance, adls, and safety. 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 Pt is discharged from this facility and will be d/c'd from OT. Decreased Activ Tolerance, Decreased UE Strength, Impaired Self-Care Skills PT Bias Machine Operator Helper Goals [facility] Goals PT [facility] Goals Time Frame: Apr 11, 2021 Roll Left to Right (QC): 4 Sit to Lying (QC): 4 Lying-Sitting on Side/Bed(QC): 4 Sit to Stand (QC): 4 Chair/Twh-el-Hikzs Xfer(QC): 4 Car Transfer (QC): 4 Does the Patient Walk: Yes Walk 10 feet (QC): 4 Walk 10ft-Uneven Surface(QC): 4 Walk 50ft with 2 Turns (QC): 4 Walk 150 ft (QC): 9 Wheel 50 feet with 2 turns (QC: 9 1 Step (curb) (QC): 9 4 Steps (QC): 9 12 Steps (QC): 9 Picking up an Object (QC): 9 OT [facility] Goals Bias Machine Operator Helper Goals Time Frame: Apr 07, 2021 Eating (QC): 6 (met) Oral Hygiene (QC): 6 (met) Shower/Bathe Self (QC): 4 (met) Upper Body Dressing (QC): 4 (met) Lower Body Dressing (QC): 4 (met) On/Off Footwear (QC): 5 (met) Toileting Hygiene (QC): 4 (met) Toilet/Commode Transfer (QC): 4 (met) 1=Demonstrate adherence to instructed precautions during ADL tasks. 2=Patient will verbalize/demonstrate understanding of assistive devices/modifications for ADL. 3=Patient will improve strength/tolerance for activity to enable patient to perform ADL's. Karmen Hicks OT Mar 31, 2021 14:16
== END 2021-03-30 13:52 | disposition home health service (06) | DRG 193 ==
LOC: 4TH 15:50
PROVIDERS: ADMIT Internal Medicine; ATTEND Internal Medicine
DX: J18.9 Pneumonia, unspecified organism (principal); I21.4 Non-ST elevation (NSTEMI) myocardial infarction; J96.21 Acute and chronic respiratory failure with hypoxia; I50.33 Acute on chronic diastolic (congestive) heart failure; G72.81 Critical illness myopathy; I25.10 Atherosclerotic heart disease of native coronary artery without angina pectoris; I35.0 Nonrheumatic aortic (valve) stenosis; D64.9 Anemia, unspecified; R19.5 Other fecal abnormalities; N40.0 Benign prostatic hyperplasia without lower urinary tract symptoms; I11.0 Hypertensive heart disease with heart failure; E66.9 Obesity, unspecified; E03.9 Hypothyroidism, unspecified; D69.6 Thrombocytopenia, unspecified; G47.33 Obstructive sleep apnea (adult) (pediatric); I71.4 Abdominal aortic aneurysm, without rupture; Z96.653 Presence of artificial knee joint, bilateral; I87.2 Venous insufficiency (chronic) (peripheral); E78.2 Mixed hyperlipidemia; E11.9 Type 2 diabetes mellitus without complications; Z68.39 Body mass index [BMI] 39.0-39.9, adult; Z95.5 Presence of coronary angioplasty implant and graft; Z87.891 Personal history of nicotine dependence; I25.2 Old myocardial infarction; Z79.899 Other long term (current) drug therapy
CPT/HCPCS: 36415; 71046; 80048; 80061; 82947; 84439; 84443; 84481; 85014; 85018; 85025; 85027; 94640; 94760

== ENCOUNTER 2021-04-07 12:47 | Observation (INO) | payer MEDICARE, OTHER ==
[~2021-04-07] VITALS: Ht 180.3 cm; Wt 117.7 kg
[~2021-04-07 12:47] MED LIST changes: +ASCO1TAB36 PO; +CALC-1121 PO; +CARV3.122 PO; +CLOP75TA28 PO; +CYAN50003 PO; +DULO30CA3 PO; +MIRT-47 PO; +SAW500CA10 PO
--- NOTE | 2021-04-07 13:17 | ED Chest Pain ---
General Chief Complaint: Chest Wall Stated Complaint: CP Nursing Triage Note: ARRIVED VIA EMS FROM HOME. PT STATES HE STARTED HAVING CHEST PAIN WHILE SITTING IN HIS CHAIR AT HOME. PAIN IS REPORDUCABLE WHEN PALPATED. Source: patient Exam Limitations: no limitations History of Present Illness Date Seen by Provider: Apr 07, 2021 Time Seen by Provider: 13:00 Initial Comments Patient is an 80-year-old male who presents from home by EMS today with a chief complaint of substernal chest pain onset about 30 to 45 minutes prior to arrival. Patient was sitting getting ready to eat at home when he had a sudden onset of sharp chest pain that did not radiate. Patient states that he felt a little short of breath but was not sweaty or nauseous. He states it felt "just like the pain" he had when he had a stent placed about 3 weeks ago. Patient is currently on Plavix and his daughter is at the bedside and states that he takes his medications as directed every day. He also has a history of stents placed remotely, 20 years ago. He is recently been fighting pneumonia in and out of the hospital [facility] over the course of the last couple of months. He is oxygen dependent on 2 to 4-1/2 L daily. Increasing requirements at night and about 3 L during the day. He states that his cough is a little bit worse today. His daughter states that he has had less energy and mobility since the weekend. He is mostly wheelchair dependent. Denies nausea, vomiting, diarrhea, urinary complaints. Has an indwelling Anguiano catheter. Describes his pain is minimal at this point. Worse with a deep breath. All other review of systems reviewed and negative except as stated. Timing/Duration: 1 hour Severity/Quality: moderate, sharp Location: central Radiation: no radiation Activities at Onset: rest Prior CP/Workup: cardiac cath, heart attack ASA po STEAM TURBINE ASSEMBLER: No NTG SL STEAM TURBINE ASSEMBLER: No Associated Symptoms: shortness of breath (mild; cough) Allergies and Home Medications Allergies Coded Allergies: Sulfa (Sulfonamide Antibiotics) (Verified Allergy, Intermediate, RASH, CHILLS, 07/10/19) Patient Home Medication List Home Medication List Reviewed: Yes Ascorbate Calcium/Bioflavonoid (Poornima-C 1,000 mg Tablet) 1 Each Tablet, 1 EACH PO DAILY, (Reported) Entered as Reported by: EL COLLADO on 03/26/21 1231 Last Action: Reviewed Aspirin (Low Dose Aspirin EC) 81 Mg Tablet.dr, 81 MG PO DAILY, (Reported) Entered as Reported by: REILLY TRAN on 01/30/21 0222 Last Action: Reviewed Atorvastatin Calcium (Atorvastatin Calcium) 40 Mg Tablet, 40 MG PO DAILY, (Reported) Entered as Reported by: DESTINY SOARES on 02/15/18 0920 Last Action: Reviewed Calcium Carbonate/Vitamin D3 (Calcium 600 mg-D3 20 Mcg Cplt) 1 Each Tablet, 1 EACH PO 1700, (Reported) Entered as Reported by: EL COLLADO on 03/26/21 1231 Last Action: Reviewed Clopidogrel Bisulfate (Plavix) 75 Mg Tablet, 75 MG PO DAILY, (Reported) Entered as Reported by: PABLO ESQUIVEL on 04/08/21 113 Last Action: Reviewed Cranberry Extract/Vit C (Azo Cranberry Softgel) 1 Each Capsule, 2 EACH PO 1700, (Reported) Entered as Reported by: REILLY TRAN on 01/30/21 0128 Last Action: Reviewed Cyanocobalamin (Vitamin B-12) (Vitamin B-12) 2,500 Mcg Tab.subl, 2,500 MCG SL DAILY, (Reported) Entered as Reported by: PABLO ESQUIVEL on 04/08/21 113 Last Action: Reviewed Famotidine (Acid Chucking And Sawing Machine Operator (FAMOTIDINE)) 20 Mg Tablet, 20 MG PO BID, (Reported) Entered as Reported by: PABLO ESQUIVEL on 03/13/21 1300 Last Action: Reviewed Fesoterodine Fumarate (Toviaz) 4 Mg Tab.sr.24h, 4 MG PO DAILY, (Reported) Entered as Reported by: PABLO ESQUIVEL on 01/30/21 1152 Last Action: Reviewed Furosemide (Furosemide) 40 Mg Tablet, 40 MG PO DAILY, (Reported) Entered as Reported by: REILLY TRAN on 01/30/21 0201 Last Action: Reviewed Gluc Beckham/Chondro Beckham A/Vit C/Mn (Glucosamine Chondroitin Tab) 1 Each Tablet, 1 TAB PO DAILY, (Reported) Entered as Reported by: DESTINY SOARES on 02/15/18 1421 Last Action: Reviewed Lactobacillus Acidophilus/Pect (Acidophilus-Pectin Capsule) 1 Each Capsule, 2 EACH PO TIDWM, (Reported) Entered as Reported by: PABLO ESQUIVEL on 03/13/21 1300 Last Action: Reviewed Levothyroxine Sodium (Synthroid) 50 Mcg Tablet, 50 MCG PO DAILY, (Reported) Entered as Reported by: DESTINY SOARES on 02/15/18919 Last Action: Reviewed Levothyroxine Sodium (Synthroid) 200 Mcg Tablet, 200 MCG PO DAILY, (Reported) Entered as Reported by: DESTINY SOARES on 05/14/19 1431 Last Action: Reviewed Melatonin (Melatonin) 10 Mg Tab.rapdis, 10 MG PO HS PRN for SLEEP, (Reported) Entered as Reported by: PABLO ESQUIVEL on 01/30/21 1152 Last Action: Reviewed Metformin HCl (Metformin HCl ER) 1,000 Mg Tab.er.24, 1,000 MG PO BID WITH MEALS, (Reported) Entered as Reported by: DESTINY SOARES on 02/15/18919 Last Action: Reviewed Mv-Mn/FA/Lycopene/Lut/Hb#178 (Ruben Multi For Men Tablet) 1 Each Tablet, 1 TAB PO DAILY, (Reported) Entered as Reported by: DESTINY SOARES on 02/15/18 142 Last Action: Reviewed Nitrofurantoin Macrocrystal (Nitrofurantoin) 100 Mg Capsule, 100 MG PO 1700 W/DINNER, (Reported) Entered as Reported by: REILLY TRAN on 01/30/21 0140 Last Action: Reviewed Albin 3 Polyunsat Fatty Acids (Fish Oil 1,000 mg Capsule) 1,000 Mg Cap, 1,000 MG PO DAILY, (Reported) Entered as Reported by: DESTINY SOARES on 02/15/18 142 Last Action: Reviewed Pantoprazole Sodium (Pantoprazole Sodium) 40 Mg Tablet.dr, 40 MG PO 1700, (Reported) Entered as Reported by: DESTINY SOARES on 02/15/18919 Last Action: Reviewed Potassium Chloride (Potassium Chloride) 10 Meq Capsule.er, 10 MEQ PO DAILY, (Reported) Entered as Reported by: REILLY TRAN on 01/30/21 0203 Last Action: Reviewed Pregabalin (Lyrica) 150 Mg Capsule, 150 MG PO BID, (Reported) Entered as Reported by: LIOR GRANT on 01/16/19 1132 Last Action: Reviewed Saw Hazlet (Saw Hazlet) 500 Mg Capsule, 1,000 MG PO DAILY, (Reported) Entered as Reported by: EL COLLADO on 03/26/21 123 Last Action: Reviewed Sennosides/Docusate Sodium (Senna-Plus Tablet) 1 Each Tablet, 2 TAB PO BID, (Reported) Entered as Reported by: REILLY TRAN on 01/30/21 0149 Last Action: Reviewed Tramadol HCl (Tramadol HCl) 50 Mg Tablet, 50 MG PO Q6H PRN for PAIN-MODERATE (5-7), (Reported) Entered as Reported by: REILLY TRAN on 01/30/21 0138 Last Action: Reviewed Zinc (Zinc) 50 Mg Tablet, 50 MG PO DAILY, (Reported) Entered as Reported by: DESTINY SOARES on 02/15/18 1421 Last Action: Reviewed Discontinued Medications Carvedilol (Carvedilol) 3.125 Mg Tablet, 3.125 MG PO BID Discontinued Reason: No Longer Taking Prescribed by: NAREN MCMAHON on 03/30/211236 Last Action: Discontinued Clopidogrel Bisulfate (Clopidogrel) 75 Mg Tablet, 75 MG PO DAILY Discontinued Reason: Duplicate Order Prescribed by: NAREN MCMAHON on 03/30/211236 Last Action: Discontinued Cyanocobalamin (Vitamin B-12) (Vitamin B-12) 5,000 Mcg Tab.rapdis, 5,000 MCG PO DAILY, (Reported) Discontinued Reason: Prescription changed Entered as Reported by: EL COLLADO on 03/26/21 123 Duloxetine HCl (Cymbalta) 30 Mg Capsule.dr, 60 MG PO HS Discontinued Reason: No Longer Taking Prescribed by: NAREN MCMAHON on 03/30/211236 Last Action: Discontinued Mirtazapine (Mirtazapine) 15 Mg Tab.rapdis, 7.5 MG PO HS Discontinued Reason: No Longer Taking Prescribed by: NAREN MCMAHON on 03/30/211236 Last Action: Discontinued Modified Lanolin (Lanolin) 40 Gm Cream..g., 1 APPLIC TP UD PRN for YEAST, (Reported) Discontinued Reason: No Longer Taking Entered as Reported by: PABLO ESQUIVEL on 03/06/21 1600 Last Action: Discontinued Nystatin (Nystatin) 15 Gm Cream..g., 1 APPFUL TP TID, (Reported) Discontinued Reason: No Longer Taking Entered as Reported by: PABLO ESQUIVEL on 03/13/21 1300 Last Action: Discontinued Simethicone (Simethicone) 80 Mg Tab.chew, 80 MG PO Q4H PRN for GAS, (Reported) Discontinued Reason: No Longer Taking Entered as Reported by: PABLO ESQUIVEL on 03/13/21 1300 Last Action: Discontinued Review of Systems Review of Systems Constitutional: see HPI EENTM: No Symptoms Reported Respiratory: Cough, Shortness of Air (mild) Cardiovascular: Chest Pain Gastrointestinal: No Symptoms Reported Genitourinary: No Symptoms Reported Musculoskeletal: no symptoms reported Skin: no symptoms reported Psychiatric/Neurological: No Symptoms Reported All Other Systems Reviewed Negative Unless Noted: Yes Past Xmwidrg-Uvjrvm-Cpyqib Hx Immunizations Up To Date First/Initial COVID19 Vaccinat: 07/27 Second COVID19 Vaccination Luis: 07/27 Third COVID19 Vaccination Date: 07/27 Seasonal Allergies Seasonal Allergies: No Past Medical History Surgery/Hospitalization HX: Denies recent surgery. Two stents were placed in 1995. Surgeries: Yes (BACK, NECK, HERNIA, R TKR) Abdominal, Appendectomy, Gallbladder, Orthopedic Respiratory: Yes Pneumonia Currently Using CPAP: No Currently Using BIPAP: No Cardiac: Yes (CARDIAC STENTS) Coronary Artery Disease, High Cholesterol, Hypertension, Valvular Heart Disease Neurological: Yes (R LEG NERVE DAMAGE) Neuropathy Reproductive Disorders: No Sexually Transmitted Disease: No HIV/AIDS: No Genitourinary: Yes (incontience) Benign Prostatic Hyperpl Gastrointestinal: Yes Gastroesophageal Reflux, Chronic Constipation Musculoskeletal: Yes (osteoarthritis) Arthritis, Chronic Back Pain, Gout Endocrine: Yes Hypothyroidsim HEENT: Yes (READING GLASSES) Cataract Loss of Vision: Denies Hearing Impairment: Denies Cancer: No Psychosocial: No Integumentary: No Blood Disorders: No Adverse Reaction/Blood Tranf: No Family Medical History Alcoholism 19 FATHER Completed stroke 19 MOTHER Diabetes mellitus 19 MOTHER G8 SISTER FH: pancreatic cancer G8 BROTHER Physical Exam Vital Signs Vital Signs - First Documented 04/07/21 12:47 Pulse 87 Resp 16 B/P (MAP) 128/63 (84) Pulse Ox 94 O2 Delivery Nasal Cannula Capillary Refill : Less Than 3 Seconds Height, Weight, BMI Height: 5'11.00" Weight: 282lbs. 0.0oz. 127.114291ah; 37.68 BMI Method:Stated General Appearance: No Apparent Distress, WD/WN HEENT: PERRL/EOMI Neck: Normal Inspection Respiratory: Lungs Clear, No Accessory Muscle Use, No Respiratory Distress Cardiovascular: Regular Rate, Rhythm, Normal Peripheral Pulses, Systolic Murmur (harsh systolic murmur hear throughout the precordium) Gastrointestinal: Non Tender, Soft Extremity: Normal Capillary Refill, Normal Inspection, Normal Range of Motion, Non Tender, Pedal Edema (trace bilateral Pitting edema) Neurologic/Psychiatric: Alert, No Motor/Sensory Deficits, Normal Mood/Affect, apple turner II-XII Norm as Tested Skin: Normal Color, Warm/Dry Progress/Results/Core Measures Results/Orders Lab Results Laboratory Tests Test 04/07/21 13:23 Range/Units White Blood Count 14.1 H 4.3-11.0 10^3/uL Red Blood Count 4.35 4.30-5.52 10^6/uL Hemoglobin 12.0 L 13.3-17.7 g/dL Hematocrit 39 L 40-54 % Mean Corpuscular Volume 90 80-99 fL Mean Corpuscular Hemoglobin 28 25-34 pg Mean Corpuscular Hemoglobin Concent 31 L 32-36 g/dL Red Cell Distribution Width 17.5 H 10.0-14.5 % Platelet Count 227 130-400 10^3/uL Mean Platelet Volume 11.5 9.0-12.2 fL Immature Granulocyte % (Auto) 1 % Neutrophils (%) (Auto) 86 H 42-75 % Lymphocytes (%) (Auto) 5 L 12-44 % Monocytes (%) (Auto) 6 0-12 % Eosinophils (%) (Auto) 2 0-10 % Basophils (%) (Auto) 1 0-10 % Neutrophils # (Auto) 12.1 H 1.8-7.8 10^3/uL Lymphocytes # (Auto) 0.6 L 1.0-4.0 10^3/uL Monocytes # (Auto) 0.8 0.0-1.0 10^3/uL Eosinophils # (Auto) 0.3 0.0-0.3 10^3/uL Basophils # (Auto) 0.1 0.0-0.1 10^3/uL Immature Granulocyte # (Auto) 0.1 0.0-0.1 10^3/uL Sodium Level 136 135-145 MMOL/L Potassium Level 4.5 3.6-5.0 MMOL/L Chloride Level 94 L 98-107 MMOL/L Carbon Dioxide Level 30 21-32 MMOL/L Anion Gap 12 5-14 MMOL/L Blood Urea Nitrogen 18 7-18 MG/DL Creatinine 0.74 0.60-1.30 MG/DL Estimat Glomerular Filtration Rate 101 BUN/Creatinine Ratio 24 Glucose Level 126 H 70-105 MG/DL Calcium Level 9.7 8.5-10.1 MG/DL Total Creatine Kinase 17 L 30-200 U/L Troponin I 0.044 H <0.028 NG/ML B-Type Natriuretic Peptide 178.5 H <100.0 PG/ML My Orders Orders - ELIZABETH WANG MD Ed Iv/Invasive Line Start (04/07/21 13:11) Cbc With Automated Diff (04/07/21 13:11) Basic Metabolic Panel (04/07/21 13:11) Troponin I (04/07/21 13:11) Creatine Kinase (04/07/21 13:11) Ekg Tracing (04/07/21 13:11) Chest 1 View, Ap/Pa Only (04/07/21 13:11) BNP (04/07/21 13:11) Vital Signs/I&O 04/07/21 12:47 Pulse 87 Resp 16 B/P (MAP) 128/63 (84) Pulse Ox 94 O2 Delivery Nasal Cannula Blood Pressure Mean: 84 Progress Progress Note #1: Time: 13:16 Progress Note Daughter states that they have been holding one of his blood pressure medicines over the weekend as his diastolic blood pressure had been running as low as the 30s over the weekend. She also is complaining of some "twitches" specifically to the bilateral upper extremities that seem to have started around last Tuesday or . They are concerned because he is dropping things and unable to hold onto items. This is new. He did just finished antibiotics yesterday for his pn eumonia. No other seizure-like activity has been noted. No falls or trauma reported. Progress Note #2: Time: 14:54 Progress Note Daughter is very concerned about these "twitches" that he has been having over the course of the last week, to where he cannot even hold a coffee cup. She is concerned that they may be related to when he was placed on "nerve medication" at discharge from his most recent hospitalization. She also states that he has been having what sounds like some hallucinations. While in the room he was commenting on a yellow chair next to him of which there was none, she states frequently he will say that there are things on TV that nobody else can see. She has noticed these also more frequently over the course of the last week. Again, they have been holding these "nerve pills" as the daughter was concerned that the side effects may be related to them. This was at the direction of his primary care physician. He does have a follow-up appointment scheduled for . Initial ECG Impression Date: Apr 07, 2021 Initial ECG Impression Time: 12:59 Initial ECG Rate: 86 Initial ECG Rhythm: Normal Sinus Initial ECG Intervals [place] 139 QRS 118 QTc 446 Initial ECG Impression: Normal, Nonspecific Changes Diagnostic Imaging Diagonstic Imaging: Xray Plain Films/CT/US/NM/MRI: chest Comments [facility]. [place], [place] NAME: [facility]ANDRA [facility] REC#: [id number] PT STATUS: REG ER : 1940 PHYSICIAN: ELIZABETH WANG MD ADMIT DATE: 04/07/21/ER Draft Date of Exam:04/07/21 CHEST 1 VIEW, AP/PA ONLY INDICATION: Chest pain and cough. TIME OF EXAM: 01:23 p.m. COMPARISON: Correlation is made with prior chest from 03/14/2021. FINDINGS: Heart size is normal. Bilateral pulmonary infiltrates have improved since the examination in March. There are some residual interstitial and airspace opacities in the mid and lower lung andrea however. Upper lung andrea are fairly clear. There is no effusion or pneumothorax. IMPRESSION: Improved aeration and partial clearing of bilateral infiltrates since examination one month earlier. Dictated on workstation # [id number] Dict: 04/07/21 1350 Trans: 04/07/21 1356 [id number] [id number] Interpreted by: TERESA ZHENG MD Electronically signed by: Departure Communication (Admissions) Time/Spoke to Admitting Phy: 14:[address] Tse Time/Spoke to Consulting Phy: 14:[address] shah Impression Primary Impression: Chest pain due to CAD Disposition: 30 STILL A PATIENT Condition: Stable Admissions Decision to Admit Reason: Admit from ER (General) Decision to Admit/Date: Apr 07, 2021 Time/Decision to Admit Time: 14:54 Departure-Patient Inst. Referrals: BRIDGETT GUEVARA MD (PCP/Family) Primary Care Physician ELIZABETH WANG MD Apr 07, 2021 13:17
[2021-04-07 13:27] LABS: BASOPHILS # (AUTO) 0.1 10^3/uL (0.0-0.1); BASOPHILS % (AUTO) 1 % (0-10); EOSINOPHILS # (AUTO) 0.3 10^3/uL (0.0-0.3); EOSINOPHILS % (AUTO) 2 % (0-10); HEMATOCRIT 39 % (40-54); LYMPHOCYTES # (AUTO) 0.6 10^3/uL (1.0-4.0); LYMPHOCYTES % (AUTO) 5 % (12-44); MEAN CORPUSCULAR HEMOGLOBIN 28 pg (25-34); MEAN CORPUSCULAR HGB CONC 31 g/dL (32-36); MEAN CORPUSCULAR VOLUME 90 fL (80-99); MEAN PLATELET VOLUME 11.5 fL (9.0-12.2); MONOCYTES # (AUTO) 0.8 10^3/uL (0.0-1.0); MONOCYTES % (AUTO) 6 % (0-12); NEUTROPHILS # (AUTO) 12.1 10^3/uL (1.8-7.8); NEUTROPHILS % (AUTO) 86 % (42-75); PLATELET COUNT 227 10^3/uL (130-400); WHITE BLOOD COUNT 14.1 10^3/uL (4.3-11.0)
[2021-04-07 13:51] LABS: CALCIUM 9.7 MG/DL (8.5-10.1); CREATININE SERUM 0.74 MG/DL (0.60-1.30); POTASSIUM 4.5 MMOL/L (3.6-5.0)
--- NOTE | 2021-04-07 13:56 | Diagnostic Imaging Report ---
INDICATION: Chest pain and cough. TIME OF EXAM: 01:23 p.m. COMPARISON: Correlation is made with prior chest from 03/14/2021. FINDINGS: Heart size is normal. Bilateral pulmonary infiltrates have improved since the examination in March. There are some residual interstitial and airspace opacities in the mid and lower lung andrea however. Upper lung andrea are fairly clear. There is no effusion or pneumothorax. IMPRESSION: Improved aeration and partial clearing of bilateral infiltrates since examination one month earlier. Dictated by: Dictated on workstation # [id number]
[2021-04-07] MEDS ORDERED: ASPIRIN 81 MG CHEW (CHILDREN'S ASA) PO STA (15:02)
[2021-04-07 15:10] LABS: BILIRUBIN,URINE NEGATIVE (NEGATIVE); CLARITY,URINE CLEAR; COLOR,URINE YELLOW; GLUCOSE, URINE (UA) NEGATIVE (NEGATIVE); KETONES,URINE NEGATIVE (NEGATIVE); LEUKOCYTE ESTERASE ,URINE NEGATIVE (NEGATIVE); NITRITE,URINE NEGATIVE (NEGATIVE); PROTEIN,URINE 1+ (NEGATIVE)
[2021-04-07] MEDS ORDERED: ENOXAPARIN 60 MG/0.6 ML (LOVENOX) SYR SC ONE (15:15)
[2021-04-07] MEDS ORDERED: ENOXAPARIN 300 MG/3 ML (LOVENOX) MULTI-DOSE VIAL SQ ONE (15:15)
--- NOTE | 2021-04-07 15:18 | Consultation-Cardiology ---
HPI-Cardiology Cardiology Consultation: Date of Consultation 04/07/21 Time Seen by a Provider: 15:15 Date of Admission 04-07-2021 Attending Physician Admitting Physician Mirza Bach MD Consulting Physician Josh Giraldo MD HPI: Chief Complaint: Chest pain Mr. Barbour is an 80 yr old male admitted from the ED with c/o CP. He is accompanied by his daughter with whom he lives. His daughter reports recent long hospitalization for the treatment of pneumonia. She states they have home health services at home. She reports increasing weakness over the last several days. She reports over the weekend his diastolic BP dropped into the 30's so they called home health at which time they were instructed to hold one of his blood pressure pills, the name of which she can not recall. She reports they were also instructed to "push oral fluids". She states he did not have a good night as he has had a lot of confusion at night. She reports he was on 2 nerve pills which were also stopped by home health. She states this morning they got him up to the table to eat breakfast when he c/o chest pain. He reports it was a sharp stabbing chest pain lasted only a few seconds, mid-sternal. He reports it was worse when he would push on the area. He denies any related symptoms. Family reports they called EMS and by the time they arrived the pain was gone. He is currently not reporting any chest pain. His family states he reported to them he had chest pain with a deep breath. He denies any SOB, n/v/d. No c/o fever or chills. No c/o LE swelling. Review of Systems-Cardiology Review of Systems Constitutional: No chills, No fever; malaise Eyes: No vision change Ears/Nose/Throat: No epistaxis, No recent hearing loss Respiratory: As described under HPI Cardiovascular: As described under HPI Gastrointestinal: No constipation, No diarrhea, No nausea, No vomiting Genitourinary: other (supra-pubic catheter in place) Musculoskeletal: no symptoms reported Skin: other (pressure ulcer to coccyx) Psychiatric/Neurological: No anxiety, No depression, No seizure, No focal weakness, No syncope Hematologic: No bleeding abnormalities All Other Systems Reviewed Negative Unless Noted: Yes HFI-Kkmixs-Cbwayt Hx Patient Social History Former smoker/When Quit: Sep 10, 1995 2nd Hand Smoke Exposure: No Have you traveled recently?: No Immunizations Up To Date Date of Pneumonia Vaccine: Mar 31, 2019 Date of Influenza Vaccine: Mar 31, 2019 Past Medical History PMH As described under Assessment. Family Medical History Family Medical History: He reports his mother had a CVA. Family History: Alcoholism 19 FATHER Completed stroke 19 MOTHER Diabetes mellitus 19 MOTHER G8 SISTER FH: pancreatic cancer G8 BROTHER Allergies and Home Medications Allergies Coded Allergies: Sulfa (Sulfonamide Antibiotics) (Verified Allergy, Intermediate, RASH, CHILLS, 07/10/19) Patient Home Medication List Ascorbate Calcium/Bioflavonoid (Poornima-C 1,000 mg Tablet) 1 Each Tablet, 1 EACH PO DAILY, (Reported) Entered as Reported by: EL COLLADO on 03/26/21 1231 Aspirin (Low Dose Aspirin EC) 81 Mg Tablet.dr, 81 MG PO DAILY, (Reported) Entered as Reported by: REILLY TRAN on 01/30/21 0222 Atorvastatin Calcium (Atorvastatin Calcium) 40 Mg Tablet, 40 MG PO DAILY, (Reported) Entered as Reported by: DESTINY SOARES on 02/15/18 0920 Calcium Carbonate/Vitamin D3 (Calcium 600 mg-D3 20 Mcg Cplt) 1 Each Tablet, 1 EACH PO DAILY@1700, (Reported) Entered as Reported by: EL COLLADO on 03/26/21 1231 Carvedilol (Carvedilol) 3.125 Mg Tablet, 3.125 MG PO BID Prescribed by: NAREN MCMAHON on 03/30/21 1237 Clopidogrel Bisulfate (Clopidogrel) 75 Mg Tablet, 75 MG PO DAILY Prescribed by: NAREN MCMAHON on 03/30/21 1237 Cranberry Extract/Vit C (Azo Cranberry Softgel) 1 Each Capsule, 1 EACH PO BID, ( Reported) Entered as Reported by: REILLY TRAN on 01/30/21 0128 Cyanocobalamin (Vitamin B-12) (Vitamin B-12) 5,000 Mcg Tab.rapdis, 5,000 MCG PO DAILY, (Reported) Entered as Reported by: EL COLLADO on 03/26/21 1231 Duloxetine HCl (Cymbalta) 30 Mg Capsule.dr, 60 MG PO HS Prescribed by: NAREN MCMAHON on 03/30/21 1237 Famotidine (Acid [facility] (FAMOTIDINE)) 20 Mg Tablet, 20 MG PO BID, (Reported) Entered as Reported by: PABLO ESQUIVEL on 03/13/21 1300 Fesoterodine Fumarate (Toviaz) 4 Mg Tab.sr.24h, 4 MG PO DAILY, (Reported) Entered as Reported by: PABLO ESQUIVEL on 01/30/21 1152 Furosemide (Furosemide) 40 Mg Tablet, 40 MG PO DAILY, (Reported) Entered as Reported by: REILLY TRAN on 01/30/21 0201 Gluc Beckham/Chondro Beckham A/Vit C/Mn (Glucosamine Chondroitin Tab) 1 Each Tablet, 1 TAB PO DAILY, (Reported) Entered as Reported by: DESTINY SOARES on 02/15/18 1421 Lactobacillus Acidophilus/Pect (Acidophilus-Pectin Capsule) 1 Each Capsule, 2 EACH PO TIDWM, (Reported) Entered as Reported by: PABLO ESQUIVEL on 03/13/21 1300 Levothyroxine Sodium (Synthroid) 50 Mcg Tablet, 50 MCG PO DAILY, (Reported) Entered as Reported by: DESTINY SOARES on 02/15/18 0920 Levothyroxine Sodium (Synthroid) 200 Mcg Tablet, 200 MCG PO DAILY, (Reported) Entered as Reported by: DESTINY SOARES on 05/14/19 1431 Melatonin (Melatonin) 10 Mg Tab.rapdis, 10-20 MG PO HS PRN for SLEEP, (Reported) Entered as Reported by: PABLO ESQUIVEL on 01/30/21 1152 Metformin HCl (Metformin HCl ER) 1,000 Mg Tab.er.24, 1,000 MG PO BID WITH MEALS, (Reported) Entered as Reported by: DESTINY SOARES on 02/15/18 0920 Mirtazapine (Mirtazapine) 15 Mg Tab.rapdis, 7.5 MG PO HS Prescribed by: NAREN MCMAHON on 03/30/21 1237 Modified Lanolin (Lanolin) 40 Gm Cream..g., 1 APPLIC TP UD PRN for YEAST, (Reported) Entered as Reported by: PABLO ESQUIVEL on 03/06/21 1600 Mv-Mn/FA/Lycopene/Lut/Hb#178 (Ruben Multi For Men Tablet) 1 Each Tablet, 2 TAB PO DAILY, (Reported) Entered as Reported by: DESTINY SOARES on 02/15/18 1421 Nitrofurantoin Macrocrystal (Nitrofurantoin) 100 Mg Capsule, 100 MG PO 1700 W/DINNER, (Reported) Entered as Reported by: REILLY TRAN on 01/30/21 0140 Nystatin (Nystatin) 15 Gm Cream..g., 1 APPFUL TP TID, (Reported) Entered as Reported by: PABLO ESQUIVEL on 03/13/21 1300 [place] 3 Polyunsat Fatty Acids (Fish Oil 1,000 mg Capsule) 1,000 Mg Cap, 1,000 MG PO DAILY, (Reported) Entered as Reported by: DESTINY SOARES on 02/15/18 1421 Pantoprazole Sodium (Pantoprazole Sodium) 40 Mg Tablet.dr, 40 MG PO 1700, (Reported) Entered as Reported by: DESTINY SOARES on 02/15/18 0920 Potassium Chloride (Potassium Chloride) 10 Meq Capsule.er, 10 MEQ PO DAILY, (Reported) Entered as Reported by: REILLY TRAN on 01/30/21 0203 Pregabalin (Lyrica) 150 Mg Capsule, 150 MG PO BID, (Reported) Entered as Reported by: LIOR GRANT on 01/16/19 1132 Saw [place] (S[place]) 500 Mg Capsule, 1,000 MG PO DAILY, (Reported) Entered as Reported by: EL COLLADO on 03/26/21 1231 Sennosides/Docusate Sodium (Senna-Plus Tablet) 1 Each Tablet, 2 TAB PO BID, (Reported) Entered as Reported by: REILLY TRAN on 01/30/21 0149 Simethicone (Simethicone) 80 Mg Tab.chew, 80 MG PO Q4H PRN for GAS, (Reported) Entered as Reported by: PABLO ESQUIVEL on 03/13/21 1300 Tramadol HCl (Tramadol HCl) 50 Mg Tablet, 50 MG PO Q6H PRN for PAIN-MODERATE (5- 7), (Reported) Entered as Reported by: REILLY TRAN on 01/30/21 0138 Zinc (Zinc) 50 Mg Tablet, 50 MG PO DAILY, (Reported) Entered as Reported by: DESTINY SOARES on 02/15/18 1421 Physical Exam-Cardiology Physical Exam Vital Signs/I&O 04/07/21 04/07/21 04/07/21 04/07/21 20:00 20:00 21:21 23:15 Temp 36.6 Pulse 84 89 Resp 13 16 B/P (MAP) 108/56 116/64 Pulse Ox 95 94 94 93 O2 Delivery Nasal Cannula Nasal Cannula Nasal Cannula OxyMask O2 Flow Rate 4.00 4.00 4.00 4.00 04/08/21 04/08/21 04/08/21 01:00 03:55 07:29 Temp 36.5 Pulse 96 82 Resp 19 B/P (MAP) 120/65 Pulse Ox 95 97 O2 Delivery OxyMask OxyMask O2 Flow Rate 4.00 4.00 04/08/21 00:00 Intake Total 350 ml Output Total 575 ml Balance -225 ml Capillary Refill : Less Than 3 Seconds Constitutional: AAO x 3, well-developed, well-nourished HEENT: PERRL, hearing is well preserved, oral hygience is good Neck: carotid pulses are 2 + bilaterally Respiratory: No accessory muscle use, No respiratory distress; chest expansion is symmetric, chest is bilaterally symmetric, lungs clear to auscultation Cardiovascular: regular rate-rhythm; No JVD; S1 and S2, systolic murmur Gastrointestinal: No tender; soft, round, audible bowel sounds Genital/Rectal: other (supra-pubic catheter in place with clear, yellow urine) Extremities: no lower extremity edema bilateral Neurologic/Psychiatric: grossly intact (moves all extremities) Skin: No rash on exposed areas, No ulcerations on exposed areas Data Review Labs Laboratory Tests 04/07/21 13:23: White Blood Count 14.1H, Red Blood Count 4.35, Hemoglobin 12.0L, Hematocrit 39L, Mean Corpuscular Volume 90, Mean Corpuscular Hemoglobin 28, Mean Corpuscular H emoglobin Concent 31L, Red Cell Distribution Width 17.5H, Platelet Count 227, Mean Platelet Volume 11.5, Immature Granulocyte % (Auto) 1, Neutrophils (%) (Auto) 86H, Lymphocytes (%) (Auto) 5L, Monocytes (%) (Auto) 6, Eosinophils (%) (Auto) 2, Basophils (%) (Auto) 1, Neutrophils # (Auto) 12.1H, Lymphocytes # (Auto) 0.6L, Monocytes # (Auto) 0.8, Eosinophils # (Auto) 0.3, Basophils # (Auto) 0.1, Immature Granulocyte # (Auto) 0.1, Sodium Level 136, Potassium Level 4.5, Chloride Level 94L, Carbon Dioxide Level 30, Anion Gap 12, Blood Urea Nitrogen 18, Creatinine 0.74, Estimat Glomerular Filtration Rate 101, BUN/Creatinine Ratio 24, Glucose Level 126H, Calcium Level 9.7, Total Creatine Kinase 17L, Troponin I 0.044H, B-Type Natriuretic Peptide 178.5H 04/07/21 15:06: Urine Color YELLOW, Urine Clarity CLEAR, Urine pH 7.0, Urine Specific [place] 1.020, Urine Protein 1+H, Urine Glucose (UA) NEGATIVE, Urine Ketones NEGATIVE, Urine Nitrite NEGATIVE, Urine Bilirubin NEGATIVE, Urine Urobilinogen 2.0, Urine Leukocyte Esterase NEGATIVE, Urine RBC (Auto) 3+H, Urine RBC 50-100H, Urine WBC 0-2, Urine Crystals NONE, Urine Bacteria TRACE, Urine Casts NONE, Urine Mucus SMALLH, Urine Culture Indicated NO 04/07/21 17:23: Glucometer 107 04/07/21 20:29: Glucometer 108 04/07/21 21:12: Troponin I 0.046H 04/08/21 05:21: Glucometer 117H 04/08/21 05:22: White Blood Count 8.3, Red Blood Count 4.02L, Hemoglobin 11.0L, Hematocrit 36L, Mean Corpuscular Volume 90, Mean Corpuscular Hemoglobin 27, Mean Corpuscular Hemoglobin Concent 30L, Red Cell Distribution Width 17.5H, Platelet Count 198, Mean Platelet Volume 11.2, Sodium Level 136, Potassium Level 3.9, Chloride Level 96L, Carbon Dioxide Level 31, Anion Gap 9, Blood Urea Nitrogen 19H, Creatinine 0.75, Estimat Glomerular Filtration Rate 100, BUN/Creatinine Ratio 25, Glucose Level 134H, Calcium Level 9.3, Magnesium Level 1.7, Triglycerides Level 107, Cholesterol Level 113, LDL Cholesterol Direct 62, VLDL Cholesterol 21, HDL Cholesterol 30L Radiology NAME: DIANDRA BARBOUR [facility] REC#: [id number] PT STATUS: REG ER : 1940 PHYSICIAN: ELIZABETH WANG MD ADMIT DATE: 04/07/21/ER Draft Date of Exam:04/07/21 CHEST 1 VIEW, AP/PA ONLY INDICATION: Chest pain and cough. TIME OF EXAM: 01:23 p.m. COMPARISON: Correlation is made with prior chest from 03/14/2021. FINDINGS: Heart size is normal. Bilateral pulmonary infiltrates have improved since the examination in March. There are some residual interstitial and airspace opacities in the mid and lower lung andrea however. Upper lung andrea are fairly clear. There is no effusion or pneumothorax. IMPRESSION: Improved aeration and partial clearing of bilateral infiltrates since examination one month earlier. Dictated on workstation # [id number] Dict: 04/07/21 1350 Trans: 04/07/21 1356 [id number] Interpreted by: TERESA ZHENG MD Electronically signed by: ECG Impression ECG Initial ECG Rhythm: Normal Sinus A/P-Cardiology Assessment/Admission Diagnosis Chest pain - mildly elevated troponin - NSTEMI Recent long hospitalization for treatment of pneumonia CAD - s/p two cor stents in 1995 following [place], details unknown - NSTEMI on 03/13/21 - Card cath on 03/13/21: Coronary artery disease primarily consisting of 80% proximal to mid vessel stenosis of the right coronary artery that was successfully stented with Marlee 3.0 x 23 mm stent that was deployed at 20 atmospheres. The other coronary vessels have mild to moderate diffuse plaque. Aortic stenosis with a peak to peak pressure gradient of approximately 70 mmHg. Left ventricular end-diastolic pressure is 19 mmHg. Left ventricular ejection fraction is 50 to 55%. Aortic stenosis, severe. - Echo of 01/19/19: LVEF 70-75%, concentric LVH, mod dil of LA, severe (area 1.1), RVSP 20 mmHg - Echo of 09/08/20: LVEF 55-60%, grade 1 hong dysfxn, AoV could not be adequately interrogated, PASP 35-40 mmHg - Echo 09/30/20: LVEF 60-65%, mod (valve area 1.3 sq cm, mean peak grad 56, mean grad 34), PASP 25-30 mmHg - Echo of 03/14/21: LVEF: 50-55%, with valve area approx 1 sq cm and mean grad 45 mmHg, grade 1 diastolic dysfunction of LV Suprapubic cystostomy Quit smoking in 1995 H/o hypertension H/o hyperlipidemia LILIAN, non-compliant with CPAP Mild COPD on PFTs of Mar 2019 Carotid u/s of 04/19/19: mild bilateral carotid art disease without evidence of hemodynamic significance AAA screening scan of 04/19/19: no evidence of AAA DJD: bilat TKR in 2019 Chronic, bilat leg swelling due to venous insuff Discussion and Recomendations Chest pain of undetermined etiology with mildly elevated troponin Continue anti-platelet tx d/t recent coronary stent placement Monitor lab closely Leukocytosis of undetermined etiology - management per medical services Further recs will be based on his hospital course We would like to thank medical services for this consult Clinical Quality Measures AMI/AHF: ASA po Prior to arrival: MILAGROS Barreto Apr 07, 2021 15:18
[2021-04-07 15:20] LABS: BACTERIA,URINE TRACE /HPF; RBC,URINE 50-100 /HPF; WBC,URINE 0-2 /HPF
[2021-04-07] MEDS ORDERED: CATHETER FLUSH 10 ML SYR IV PRN (16:00)
[2021-04-07] MEDS ORDERED: CLOPIDOGREL 75 MG (PLAVIX) TABLET PO NR (16:15)
[2021-04-07] MEDS: inSUlin ASPART (NovoLOG) 1 UNIT/0.01 ML (CHARGE PER UNIT) SC SCH ×2 (17:25→20:29)
--- NOTE | 2021-04-07 17:28 | Consultation-Cardiology ---
HPI-Cardiology Cardiology Consultation: Date of Consultation 04/07/21 Time Seen by a Provider: 17:10 Date of Admission Attending Physician Delphine Tse MD Admitting Physician Mirza Bach MD Consulting Physician DONN THEODORE MD, MA, FACP, FACC, [facility] [place], CCDS HPI: Chief Complaint: Chest pain Mr. Barbour is an 80 yr old male admitted from the ED with c/o CP. He is accompanied by his daughter with whom he lives. His daughter reports recent long hospitalization for the treatment of pneumonia. She states they have home health services at home. She reports increasing weakness over the last several days. She reports over the weekend his diastolic BP dropped into the 30's so they called home health at which time they were instructed to hold one of his blood pressure pills, the name of which she can not recall. She reports they were also instructed to "push oral fluids". She states he did not have a good night as he has had a lot of confusion at night. She reports he was on 2 nerve pills which were also stopped by home health. She states this morning they got him up to the table to eat breakfast when he c/o chest pain. He reports it was a sharp stabbing chest pain lasted only a few seconds, mid-sternal. He reports it was worse when he would push on the area. He denies any related symptoms. Family reports they called EMS and by the time they arrived the pain was gone. He is currently not reporting any chest pain. His family states he reported to them he had chest pain with a deep breath. He denies any SOB, n/v/d. No c/o fever or chills. No c/o LE swelling. Review of Systems-Cardiology Review of Systems Constitutional: No chills, No fever; malaise Eyes: No vision change Ears/Nose/Throat: No epistaxis, No recent hearing loss Respiratory: As described under HPI Cardiovascular: As described under HPI Gastrointestinal: No constipation, No diarrhea, No nausea, No vomiting Genitourinary: other (supra-pubic catheter in place) Musculoskeletal: no symptoms reported Skin: other (pressure ulcer to coccyx) Psychiatric/Neurological: No anxiety, No depression, No seizure, No focal weakness, No syncope Hematologic: No bleeding abnormalities All Other Systems Reviewed Negative Unless Noted: Yes EXH-Kparhy-Uruwwl Hx Patient Social History Smoking Status: Former Smoker Former smoker/When Quit: Sep 10, 1995 2nd Hand Smoke Exposure: No Have you traveled recently?: No Alcohol Use?: No Pt feels they are or have been: No Immunizations Up To Date Date of Pneumonia Vaccine: Mar 31, 2019 Date of Influenza Vaccine: Apr 28, 2020 Past Medical History PMH As described under Assessment. Family Medical History Family Medical History: He reports his mother had a CVA. Family History: Alcoholism 19 FATHER Completed stroke 19 MOTHER Diabetes mellitus 19 MOTHER G8 SISTER FH: pancreatic cancer G8 BROTHER Allergies and Home Medications Allergies Coded Allergies: Sulfa (Sulfonamide Antibiotics) (Verified Allergy, Intermediate, RASH, CHILLS, 07/10/19) Patient Home Medication List Home Medication List Reviewed: Yes Ascorbate Calcium/Bioflavonoid (Poornima-C 1,000 mg Tablet) 1 Each Tablet, 1 EACH PO DAILY, (Reported) Entered as Reported by: EL COLLADO on 03/26/21 1231 Aspirin (Low Dose Aspirin EC) 81 Mg Tablet., 81 MG PO DAILY, (Reported) Entered as Reported by: REILLY TRAN on 01/30/21 0222 Atorvastatin Calcium (Atorvastatin Calcium) 40 Mg Tablet, 40 MG PO DAILY, (Reported) Entered as Reported by: DESTINY SOARES on 02/15/18 0920 Calcium Carbonate/Vitamin D3 (Calcium 600 mg-D3 20 Mcg Cplt) 1 Each Tablet, 1 EACH PO DAILY@1700, (Reported) Entered as Reported by: EL COLLADO on 03/26/21 1231 Carvedilol (Carvedilol) 3.125 Mg Tablet, 3.125 MG PO BID Prescribed by: NAREN MCMAHON on 03/30/21 1237 Clopidogrel Bisulfate (Clopidogrel) 75 Mg Tablet, 75 MG PO DAILY Prescribed by: NAREN MCMAHON on 03/30/21 1237 Cranberry Extract/Vit C (Azo Cranberry Softgel) 1 Each Capsule, 1 EACH PO BID, (Reported) Entered as Reported by: REILLY TRAN on 01/30/21 0128 Cyanocobalamin (Vitamin B-12) (Vitamin B-12) 5,000 Mcg Tab.rapdis, 5,000 MCG PO DAILY, (Reported) Entered as Reported by: EL COLLADO on 03/26/21 1231 Duloxetine HCl (Cymbalta) 30 Mg Capsule.dr, 60 MG PO HS Prescribed by: NAREN MCMAHON on 03/30/21 1237 Famotidine (Acid Auto Refinisher (FAMOTIDINE)) 20 Mg Tablet, 20 MG PO BID, (Reported) Entered as Reported by: PABLO ESQUIVEL on 03/13/21 1300 Fesoterodine Fumarate (Toviaz) 4 Mg Tab.sr.24h, 4 MG PO DAILY, (Reported) Entered as Reported by: PABLO ESQUIVEL on 01/30/21 1152 Furosemide (Furosemide) 40 Mg Tablet, 40 MG PO DAILY, (Reported) Entered as Reported by: REILLY TRAN on 01/30/21 0201 Gluc Beckham/Chondro Beckham A/Vit C/Mn (Glucosamine Chondroitin Tab) 1 Each Tablet, 1 TAB PO DAILY, (Reported) Entered as Reported by: DESTINY SOARES on 02/15/18 1421 Lactobacillus Acidophilus/Pect (Acidophilus-Pectin Capsule) 1 Each Capsule, 2 EACH PO TIDWM, (Reported) Entered as Reported by: PABLO ESQUIVEL on 03/13/21 1300 Levothyroxine Sodium (Synthroid) 50 Mcg Tablet, 50 MCG PO DAILY, (Reported) Entered as Reported by: DESTINY SOARES on 02/15/18 0920 Levothyroxine Sodium (Synthroid) 200 Mcg Tablet, 200 MCG PO DAILY, (Reported) Entered as Reported by: DESTINY SOARES on 05/14/19 1431 Melatonin (Melatonin) 10 Mg Tab.rapdis, 10-20 MG PO HS PRN for SLEEP, (Reported) Entered as Reported by: PABLO ESQUIVEL on 01/30/21 1152 Metformin HCl (Metformin HCl ER) 1,000 Mg Tab.er.24, 1,000 MG PO BID WITH MEALS, (Reported) Entered as Reported by: DESTINY SOARES on 02/15/18 0920 Mirtazapine (Mirtazapine) 15 Mg Tab.rapdis, 7.5 MG PO HS Prescribed by: NAREN MCMAHON on 03/30/21 1237 Modified Lanolin (Lanolin) 40 Gm Cream..g., 1 APPLIC TP UD PRN for YEAST, (Reported) Entered as Reported by: PABLO ESQUIVEL on 03/06/21 1600 Mv-Mn/FA/Lycopene/Lut/Hb#178 (Ruben Multi For Men Tablet) 1 Each Tablet, 2 TAB PO DAILY, (Reported) Entered as Reported by: DESTINY SOARES on 02/15/18 1421 Nitrofurantoin Macrocrystal (Nitrofurantoin) 100 Mg Capsule, 100 MG PO 1700 W/DINNER, (Reported) Entered as Reported by: REILLY TRAN on 01/30/21 0140 Nystatin (Nystatin) 15 Gm Cream..g., 1 APPFUL TP TID, (Reported) Entered as Reported by: PABLO ESQUIVEL on 03/13/21 1300 [place] 3 Polyunsat Fatty Acids (Fish Oil 1,000 mg Capsule) 1,000 Mg Cap, 1,000 MG PO DAILY, (Reported) Entered as Reported by: DESTINY SOARES on 02/15/18 1421 Pantoprazole Sodium (Pantoprazole Sodium) 40 Mg Tablet.dr, 40 MG PO 1700, (Reported) Entered as Reported by: DESTINY SOARES on 02/15/18 0920 Potassium Chloride (Potassium Chloride) 10 Meq Capsule.er, 10 MEQ PO DAILY, (Reported) Entered as Reported by: REILLY TRAN on 01/30/21 0203 Pregabalin (Lyrica) 150 Mg Capsule, 150 MG PO BID, (Reported) Entered as Reported by: LIOR GRANT on 01/16/19 1132 Saw Hancock (Saw Hancock) 500 Mg Capsule, 1,000 MG PO DAILY, (Reported) Entered as Reported by: EL COLLADO on 03/26/21 1231 Sennosides/Docusate Sodium (Senna-Plus Tablet) 1 Each Tablet, 2 TAB PO BID, (Reported) Entered as Reported by: REILLY TRAN on 01/30/21 0149 Simethicone (Simethicone) 80 Mg Tab.chew, 80 MG PO Q4H PRN for GAS, (Reported) Entered as Reported by: PABLO ESQUIVEL on 03/13/21 1300 Tramadol HCl (Tramadol HCl) 50 Mg Tablet, 50 MG PO Q6H PRN for PAIN-MODERATE (5- 7), (Reported) Entered as Reported by: REILLY TRAN on 01/30/21 0138 Zinc (Zinc) 50 Mg Tablet, 50 MG PO DAILY, (Reported) Entered as Reported by: DESTINY SOARES on 02/15/18 1421 Physical Exam-Cardiology Physical Exam Vital Signs/I&O 04/07/21 04/07/21 04/07/21 04/07/21 12:47 15:30 15:44 15:52 Temp 36.3 Pulse 87 81 83 Resp 16 16 14 B/P (MAP) 128/63 (84) 134/63 123/103 Pulse Ox 94 96 94 O2 Delivery Nasal Cannula Room Air Nasal Cannula O2 Flow Rate 4.00 4.00 04/07/21 15:58 Pulse 81 Capillary Refill : Less Than 3 Seconds Constitutional: AAO x 3, well-developed, well-nourished HEENT: PERRL, hearing is well preserved, oral hygience is good Neck: carotid pulses are 2 + bilaterally Respiratory: No accessory muscle use, No respiratory distress; chest expansion is symmetric, chest is bilaterally symmetric, lungs clear to auscultation Cardiovascular: regular rate-rhythm; No JVD; S1 and S2, systolic murmur Gastrointestinal: No tender; soft, round, audible bowel sounds Genital/Rectal: other (supra-pubic catheter in place with clear, yellow urine) Extremities: no lower extremity edema bilateral Neurologic/Psychiatric: grossly intact (moves all extremities) Skin: No rash on exposed areas, No ulcerations on exposed areas Data Review Labs Laboratory Tests 04/07/21 13:23: White Blood Count 14.1H, Red Blood Count 4.35, Hemoglobin 12.0L, Hematocrit 39L, Mean Corpuscular Volume 90, Mean Corpuscular Hemoglobin 28, Mean Corpuscular Hemoglobin Concent 31L, Red Cell Distribution Width 17.5H, Platelet Count 227, Mean Platelet Volume 11.5, Immature Granulocyte % (Auto) 1, Neutrophils (%) (Auto) 86H, Lymphocytes (%) (Auto) 5L, Monocytes (%) (Auto) 6, Eosinophils (%) (Auto) 2, Basophils (%) (Auto) 1, Neutrophils # (Auto) 12.1H, Lymphocytes # (Auto) 0.6L, Monocytes # (Auto) 0.8, Eosinophils # (Auto) 0.3, Basophils # (Auto) 0.1, Immature Granulocyte # (Auto) 0.1, Sodium Level 136, Potassium Level 4.5, Chloride Level 94L, Carbon Dioxide Level 30, Anion Gap 12, Blood Urea Nitrogen 18, Creatinine 0.74, Estimat Glomerular Filtration Rate 101, BUN/Creatinine Ratio 24, Glucose Level 126H, Calcium Level 9.7, Total Creatine Kinase 17L, Troponin I 0.044H, B-Type Natriuretic Peptide 178.5H 04/07/21 15:06: Urine Color YELLOW, Urine Clarity CLEAR, Urine pH 7.0, Urine Specific [place] 1.020, Urine Protein 1+H, Urine Glucose (UA) NEGATIVE, Urine Ketones NEGATIVE, Urine Nitrite NEGATIVE, Urine Bilirubin NEGATIVE, Urine Urobilinogen 2.0, Urine Leukocyte Esterase NEGATIVE, Urine RBC (Auto) 3+H, Urine RBC 50-100H, Urine WBC 0-2, Urine Crystals NONE, Urine Bacteria TRACE, Urine Casts NONE, Urine Mucus SMALLH, Urine Culture Indicated NO 04/07/21 17:23: Glucometer 107 Laboratory Tests 04/07/21 13:23 A/P-Cardiology Assessment/Admission Diagnosis Chest pain - mildly elevated troponin - NSTEMI Recent long hospitalization for treatment of pneumonia CAD - s/p two cor stents [facility] 1995 [facility], details unknown - NSTEMI on 03/13/21 - Card cath on 03/13/21: Coronary artery disease primarily consisting of 80% proximal to mid vessel stenosis of the right coronary artery that was successfully stented with Marlee 3.0 x 23 mm stent that was deployed at 20 atmospheres. The other coronary vessels have mild to moderate diffuse plaque. Aortic stenosis with a peak to peak pressure gradient of approximately 70 mmHg. Left ventricular end-diastolic pressure is 19 mmHg. Left ventricular ejection fraction is 50 to 55%. Aortic stenosis, severe. - Echo of 01/19/19: LVEF 70-75%, concentric LVH, mod dil of LA, severe (area 1.1), RVSP 20 mmHg - Echo of 09/08/20: LVEF 55-60%, grade 1 hong dysfxn, AoV could not be adequately interrogated, PASP 35-40 mmHg - Echo 09/30/20: LVEF 60-65%, mod (valve area 1.3 sq cm, mean peak grad 56, mean grad 34), PASP 25-30 mmHg - Echo of 03/14/21: LVEF: 50-55%, with valve area approx 1 sq cm and mean grad 45 mmHg, grade 1 diastolic dysfunction of LV Suprapubic cystostomy Quit smoking in 1995 H/o hypertension H/o hyperlipidemia LILIAN, non-compliant with CPAP Mild COPD on PFTs of Mar 2019 Carotid u/s of 04/19/19: mild bilateral carotid art disease without evidence of hemodynamic significance AAA screening scan of 04/19/19: no evidence of AAA DJD: bilat TKR in 2019 Chronic, bilat leg swelling due to venous insuff Discussion and Recomendations Chest pain of undetermined etiology with mildly elevated troponin Continue anti-platelet tx d/t recent coronary stent placement Beta-dannielle being held because family reports low bp lately Monitor lab closely Leukocytosis of undetermined etiology - management per medical services Further recs will be based on his hospital course We would like to thank medical services for this consult Clinical Quality Measures AMI/AHF: ASA po Prior to arrival: DONN Avila MD FACP FAC CCDS Apr 07, 2021 17:28
[2021-04-07 17:56] VITALS: BP 128/63
[2021-04-07] MEDS ORDERED: metFORMIN 500 MG (GLUCOPHAGE) TAB PO SCH (18:00)
[2021-04-07] MEDS ORDERED: RT-ALBUTEROL SULF 2.5 MG/3 ML PRE-MIX VIAL INH PRN (18:15)
[2021-04-07] MEDS ORDERED: MELATONIN 3 MG TABLET PO SCH (21:00)
[2021-04-07] MEDS ORDERED: MELATONIN 10 MG TABLET PO SCH (21:00)
[2021-04-07] MEDS: RT-ALBUTEROL/IPRATROPIUM 3 ML (DUONEB) VIAL INH SCH (21:21)
[2021-04-07] MEDS: CATHETER FLUSH 10 ML SYR IV SCH (21:34)
[2021-04-08] MEDS ORDERED: ENOXAPARIN 300 MG/3 ML (LOVENOX) MULTI-DOSE VIAL SQ SCH (05:00)
[2021-04-08] MEDS: CATHETER FLUSH 10 ML SYR IV SCH (05:21)
[2021-04-08] MEDS: inSUlin ASPART (NovoLOG) 1 UNIT/0.01 ML (CHARGE PER UNIT) SC SCH ×2 (05:22→10:54)
[2021-04-08 05:33] LABS: HEMATOCRIT 36 % (40-54); MEAN CORPUSCULAR HEMOGLOBIN 27 pg (25-34); MEAN CORPUSCULAR HGB CONC 30 g/dL (32-36); MEAN CORPUSCULAR VOLUME 90 fL (80-99); MEAN PLATELET VOLUME 11.2 fL (9.0-12.2); PLATELET COUNT 198 10^3/uL (130-400); WHITE BLOOD COUNT 8.3 10^3/uL (4.3-11.0)
[2021-04-08 06:01] LABS: CALCIUM 9.3 MG/DL (8.5-10.1); CREATININE SERUM 0.75 MG/DL (0.60-1.30); MAGNESIUM 1.7 MG/DL (1.6-2.4); POTASSIUM 3.9 MMOL/L (3.6-5.0)
[2021-04-08] MEDS ORDERED: LEVOTHYROXINE 125 MCG (LEVOTHROID) TABLET PO SCH (06:30)
[2021-04-08] MEDS: RT-ALBUTEROL/IPRATROPIUM 3 ML (DUONEB) VIAL INH SCH (07:29)
[2021-04-08] MEDS ORDERED: KCL 10 MEQ TAB (MICRO K) PO SCH ×2 (08:00→09:00)
[2021-04-08] MEDS ORDERED: ASPIRIN 81 MG CHEW (CHILDREN'S ASA) PO SCH (09:00)
[2021-04-08] MEDS ORDERED: FUROSEMIDE 40 MG (LASIX) TAB PO SCH ×2 (09:00)
[2021-04-08] MEDS ORDERED: CLOPIDOGREL 75 MG (PLAVIX) TABLET PO SCH (09:00)
--- NOTE | 2021-04-08 09:05 | Short Stay Summary-Hospitalist ---
History of Present Illness HPI/Chief Complaint Pt is an 80-year-old male well-known to me from multiple readmissions over the past few months who presented to the emergency department with chest pain. He states his symptoms were similar to when he had an NSTEMI and ended up with a stent in March though this time it was very short-lived and resolved by arrival to the emergency room. Troponin was checked and revealed an elevation of 0.044 and he was admitted for observation. He had no further chest pain overnight and has no complaints this morning. His troponin has trended down to negative. He is actually requesting discharge home. Later his daughter arrives and has questions about some muscle weakness and shaking. She had already discussed this with his primary care doctor Dr. Bach who recommended stopping his Cymbalta and Remeron. She states since doing that the symptoms have improved though. Source: patient Exam Limitations: no limitations Date Seen 04/08/21 Time Seen by a Provider: 07:50 Attending Physician Lizandro Tse MD PCP Mirza Bach MD Referring Physician Date of Admission Apr 07, 2021 at 14:35 Home Medications & Allergies Home Medications Reviewed patient Home Medication Reconciliation performed by pharmacy medication reconciliations denture laboratory technician and/or nursing. Patients Allergies have been reviewed. Allergies Allergies Coded Allergies Sulfa (Sulfonamide Antibiotics) (Verified Allergy, Intermediate, RASH, CHILLS, 07/10/19) Past Svgusnu-Zldtzq-Iemsls Hx Patient Social History Marrital Status: Employed/Student: retired Tobacco Use?: No Smoking Status: Former Smoker Smokeless Tobacco Frequency: Former User Substance use?: No Alcohol Use?: No Pt feels they are or have been: No Immunizations Up To Date Date of Influenza Vaccine: Apr 28, 2020 First/Initial COVID19 Vaccinat: 06/15/20 APPROXIMATE Second COVID19 Vaccination Luis: 07/16/20 APPROXIMATE Tetanus Booster (TDap): Unknown Date of Pneumonia Vaccine: Mar 31, 2019 Seasonal Allergies Seasonal Allergies: No Current Status Advance Directives: No Communicates: Verbally Primary Language: Russian Preferred Spoken Language: Russian Is interpretation needed?: No Sensory deficits: Vision impairment, Hearing impairment Implanted or Applied Medical D: Stents Past Medical History Surgeries: Abdominal, Appendectomy, Gallbladder, Orthopedic Pneumonia Currently Using CPAP: No Currently Using BIPAP: No Coronary Artery Disease, High Cholesterol, Hypertension, Valvular Heart Disease Neuropathy Sexually Transmitted Disease: No HIV/AIDS: No Benign Prostatic Hyperpl Gastroesophageal Reflux, Chronic Constipation Arthritis, Chronic Back Pain, Gout Hypothyroidsim Cataract Loss of Vision: Denies Hearing Impairment: Denies Blood Disorders: No Adverse Reaction/Blood Tranf: No CAD, hypothyroidism, UTI's/BPH, has had supra-pubic catheter placed aortic stenosis, not clear how severe, I can not find an echo report, Family Medical History Alcoholism 19 FATHER Completed stroke 19 MOTHER Diabetes mellitus 19 MOTHER G8 SISTER FH: pancreatic cancer G8 BROTHER Review of Systems Constitutional: weakness Respiratory: No short of breath Cardiovascular: chest pain; No edema; Hx of Intervention; No palpitations Physical Exam Physical Exam Vital Signs Vital Signs - First Documented 04/07/21 04/07/21 12:47 15:44 Temp 36.3 Pulse 87 Resp 16 B/P (MAP) 128/63 (84) Pulse Ox 94 O2 Delivery Nasal Cannula O2 Flow Rate 4.00 Capillary Refill : Less Than 3 Seconds Height, Weight, BMI Height: 5'11.00" Weight: 282lbs. 0.0oz. 127.389586px; 35.22 BMI Method:Stated General Appearance: No Apparent Distress, WD/WN HEENT: PERRL/EOMI, Moist Mucous Membranes Neck: Normal Inspection, Supple Respiratory: Lungs Clear, No Accessory Muscle Use, No Respiratory Distress Cardiovascular: Regular Rate, Rhythm, No JVD, Systolic Murmur Gastrointestinal: Normal Bowel Sounds, Non Tender, Soft Extremity: Normal Capillary Refill, Normal Inspection, Non Tender Neurologic/Psychiatric: Alert, No Motor/Sensory Deficits, Normal Mood/Affect Skin: Normal Color, Warm/Dry Results Results/Procedures Labs Laboratory Tests 04/07/21 13:23 04/08/21 05:22 Patient resulted labs reviewed. Imaging: Reviewed Imaging Report Imaging [facility] [place] NAME: DIANDRA VO MED REC#: [id number] PT STATUS: ADM Be : 1940 PHYSICIAN: ELIZABETH WANG MD ADMIT DATE: 04/07/21/[facility] Signed Date of Exam:04/07/21 CHEST 1 VIEW, AP/PA ONLY INDICATION: Chest pain and cough. TIME OF EXAM: 01:23 p.m. COMPARISON: Correlation is made with prior chest from 03/14/2021. FINDINGS: Heart size is normal. Bilateral pulmonary infiltrates have improved since the examination in March. There are some residual interstitial and airspace opacities in the mid and lower lung andrea however. Upper lung andrea are fairly clear. There is no effusion or pneumothorax. IMPRESSION: Improved aeration and partial clearing of bilateral infiltrates since examination one month earlier. Dictated by: Dictated on workstation # [id number] Dict: 04/07/21 1350 Trans: 04/07/211849 [id number] [id number] Interpreted by: TERESA ZHENG MD Electronically signed by: TERESA ZHENG MD 04/07/211849 Short Stay Diagnosis Discharge Diagnosis-Short Stay Admission Diagnosis Chest pain Final Discharge Diagnosis Chest pain Conclusion Plan NSTEMI type II HTN CAD Aortic Stenosis Troponin with very minimal bump at 0.044, now back to negative this AM Cardiology consulted, appreciate recs Continue home DAPT Telemetry DC home with outpatient followup Chronic hypoxic respiratory failure- at baseline oxygen Recent Pneumonia- resolved Oxygen requirements at baseline Has follow up with Dr Bach already scheduled for tomorrow Anemia Improved from discharge last week, still needs outpatient follow up for FOBT+ stool when improved Hypothyroidism BPH s/p SPT Continue home meds when able Thyroid labs within normal limits Catheter in place Obesity Weakness Clinically significant, no acute management needs PT DVT prophylaxis: Lovenox Diagnosis/Problems Diagnosis/Problems (1) NSTEMI (non-ST elevated myocardial infarction) Status: Acute (2) Obesity Status: Chronic (3) Aortic stenosis (4) Debility Status: Acute Clinical Quality Measures AMI/AHF: ASA po Prior to arrival: LIZANDRO Atwood MD Apr 08, 2021 09:05
--- NOTE | 2021-04-08 09:33 | Physical Therapy Evaluation ---
PT Evaluation-General Medical Diagnosis Admission Date Apr 07, 2021 at 14:35 Medical Diagnosis: chest pain Onset Date: Apr 07, 2021 Therapy Diagnosis Therapy Diagnosis: impaired mobility, strength, endurance Height/Weight Height (Feet): 5 Height (Inches): 11.00 Weight (Pounds): 282 Weight (Ounces): 0.0 Precautions Precautions/Isolations: Fall Prevention, Standard Precautions Referral Physician: Dedrick Reason for Referral: Evaluation/Treatment Medical History Pertinent Medical History: CAD, DM, HTN, Hypothroidism, [place], Neuropathy Additional Medical History Past Medical History Surgery/Hospitalization HX: Denies recent surgery. Two stents were placed in 1995. Surgeries: Yes (BACK, NECK, HERNIA, R TKR) Abdominal, Appendectomy, Gallbladder, Orthopedic Respiratory: Yes Pneumonia Currently Using CPAP: No Currently Using BIPAP: No Cardiac: Yes (CARDIAC STENTS) Coronary Artery Disease, High Cholesterol, Hypertension, Valvular Heart Disease Neurological: Yes (R LEG NERVE DAMAGE) Neuropathy Reproductive Disorders: No Sexually Transmitted Disease: No HIV/AIDS: No Genitourinary: Yes (incontience) Benign Prostatic Hyperpl Gastrointestinal: Yes Gastroesophageal Reflux, Chronic Constipation Musculoskeletal: Yes (osteoarthritis) Arthritis, Chronic Back Pain, Gout Endocrine: Yes Hypothyroidsim HEENT: Yes (READING GLASSES) Cataract Reviewed History: Yes Social History Current Living Status: Children Entry Into Home: Ramp Prior Prior Level of Function SCALE: Activities may be completed with or without assistive devices. 7-Sogvrkhmxd-idwzdsd completes the activity by him/herself with no assistance from a helper. 5-Set-up or Clean-up Assistance-helper sets up or cleans up; patient completes activity. [place] assists only prior to or following the activity. 4-Supervision or Touching Assistance-helper provides verbal cues and/or touching/steadying and/or contact guard assistance as patient completes activity. Assistance may be provided throughout the activity or intermittently. 3-Partial/Moderate Assistance-helper does LESS THAN HALF the effort. [place] lifts, holds or supports trunk or limbs, but provides less than half the effort. 2-Substantial/Maximal Assistance-helper does MORE THAN HALF the effort. [place] lifts or holds trunk or limbs and provides more than half the effort. 1-Puloxcegh-idbnmy does ALL the effort. Patient does none of the effort to complete the activity. Or, the assistance of 2 or more helpers is required for the patient to complete the activity. If activity was not attempted, code reason: 7-Patient Refused. 9-Not Applicable-not attempted and the patient did not perform the activity before the current illness, exacerbation or injury. 10-Not Attempted due to Environmental Limitations-(lack of equipment, weather restraints, etc.). 88-Not Attempted due to Medical Conditions or Safety Concerns. Bed Mobility: 3 Transfers (B,C,W/C): 3 Gait: 3 (short distances) Indoor Mobility (Ambulation): Needed Some Help Prior Devices Use: Walker PT Evaluation-Current Subjective Patient in bed pre tx, agrees to PT, has no complaints of pain Pt/Family Goals "to get stronger" Objective Patient Orientation: Person, Place, Situation Attachments: Oxygen, Anguiano Catheter ROM/Strength ROM Lower Extremities WNL Strength Lower Extremities 3-/5 gross BLE Sensory Hearing: Functional Transfers Roll Left to Right (QC): 3 Sit to Lying (QC): 2 Lying to Sitting/Side of Bed(Q: 3 Sit to Stand (QC): 1 Patient needed mod assist for supine to sit, assist scooting to the edge of the bed, assist of 2 therapists to try to stand from the bed but he could not, tried x3 Balance Sitting Static: Fair Sitting Dynamic: Fair Treatment seated BLE exercises x20 (AP, LAQ) Assessment/Needs Patient in bed post tx with nurse call, phone, tray, all needs met. Patient has impaired mobility, strength, endurance. He cannot stand at this time. Rehab Potential: Guarded PT [employer] Architect Goals Chcf Goals PT Chcf Goals Time Frame: Apr 15, 2021 Roll Left & Right (QC): 4 Sit to Lying (QC): 3 Lying-Sitting on Side/Bed(QC): 3 Sit to Stand (QC): 3 Chair/Geu-tf-Setbj Xfer(QC): 3 PT Plan Problem List Problem List: Activity Tolerance, Functional Strength, Safety, Balance, Gait, Transfer, Bed Mobility, ROM Treatment/Plan Treatment Plan: Continue Plan of Care Treatment Plan: Bed Mobility, Education, Functional Activity Glenn, Functional Strength, Gait, Safety, Therapeutic Exercise, Transfers Treatment Duration: Apr 15, 2021 Frequency: 6 times per week Estimated Hrs Per Day: .25 hour per day Patient and/or Family Agrees t: Yes Safety Risks/Education Patient Education: Correct Positioning, Safety Issues Teaching Recipient: Patient Teaching Methods: Demonstration, Discussion Response to Teaching: Reinforcement Needed Discharge Recommendations Plan Patient will perform bed mobility and transfer training, balance and endurance training, functional strengthening, gait training, and education, to improve functional mobility and independence at home. Therapy Discharge Recommendati: 24 Hour Supervision Time/GCodes Time In: 907 Time Out: 923 Total Billed Treatment Time: 16 Total Billed Treatment 1 visit SEAN 16' MICHELLE FUNES PT Apr 08, 2021 09:33
--- NOTE | 2021-04-08 10:09 | Progress Note - Cardiology ---
Cardiology SOAP Progress Note Subjective: No cp or palp or syncope Gen malaise, chronic, unchanged No n/v/d No focal weakness; chronic gen weakness is persistent Objective: I&O/Vital Signs 04/07/21 04/08/21 04/08/21 04/08/21 23:15 01:00 03:55 07:00 Temp 36.6 36.5 Pulse 89 96 82 86 Resp 16 19 B/P (MAP) 116/64 120/65 Pulse Ox 93 95 O2 Delivery OxyMask OxyMask O2 Flow Rate 4.00 4.00 04/08/21 07:29 Pulse Ox 97 O2 Delivery OxyMask O2 Flow Rate 4.00 04/08/21 00:00 Intake Total 350 ml Output Total 575 ml Balance -225 ml Weight (Pounds): 282 Weight (Ounces): 0.0 Weight (Calculated Kilograms): 127.744970 Constitutional: AAO x 3, well-developed, well-nourished Respiratory: No accessory muscle use, No respiratory distress; chest expansion is symmetric, chest is bilaterally symmetric, lungs clear to auscultation Cardiovascular: regular rate-rhythm; No JVD; S1 and S2, systolic murmur Gastrointestional: No tender; soft, round, audible bowel sounds Genital/Rectal: other (supra-pubic catheter in place with clear, yellow urine) Extremities: no lower extremity edema bilateral Neurologic/Psychiatric: grossly intact (moves all extremities) Skin: No rash on exposed areas, No ulcerations on exposed areas Results/Procedures: Labs Laboratory Tests 04/07/21 13:23: White Blood Count 14.1H, Red Blood Count 4.35, Hemoglobin 12.0L, Hematocrit 39L, Mean Corpuscular Volume 90, Mean Corpuscular Hemoglobin 28, Mean Corpuscular Hemoglobin Concent 31L, Red Cell Distribution Width 17.5H, Platelet Count 227, Mean Platelet Volume 11.5, Immature Granulocyte % (Auto) 1, Neutrophils (%) (Auto) 86H, Lymphocytes (%) (Auto) 5L, Monocytes (%) (Auto) 6, Eosinophils (%) (Auto) 2, Basophils (%) (Auto) 1, Neutrophils # (Auto) 12.1H, Lymphocytes # (Auto) 0.6L, Monocytes # (Auto) 0.8, Eosinophils # (Auto) 0.3, Basophils # (Auto) 0.1, Immature Granulocyte # (Auto) 0.1, Sodium Level 136, Potassium Level 4.5, Chloride Level 94L, Carbon Dioxide Level 30, Anion Gap 12, Blood Urea Nitrogen 18, Creatinine 0.74, Estimat Glomerular Filtration Rate 101, BUN/Creatinine Ratio 24, Glucose Level 126H, Calcium Level 9.7, Total Creatine Kinase 17L, Troponin I 0.044H, B-Type Natriuretic Peptide 178.5H 04/07/21 15:06: Urine Color YELLOW, Urine Clarity CLEAR, Urine pH 7.0, Urine Specific [place] 1.020, Urine Protein 1+H, Urine Glucose (UA) NEGATIVE, Urine Ketones NEGATIVE, Urine Nitrite NEGATIVE, Urine Bilirubin NEGATIVE, Urine Urobilinogen 2.0, Urine Leukocyte Esterase NEGATIVE, Urine RBC (Auto) 3+H, Urine RBC 50-100H, Urine WBC 0-2, Urine Crystals NONE, Urine Bacteria TRACE, Urine Casts NONE, Urine Mucus SMALLH, Urine Culture Indicated NO 04/07/21 17:23: Glucometer 107 04/07/21 20:29: Glucometer 108 04/07/21 21:12: Troponin I 0.046H 04/08/21 05:21: Glucometer 117H 04/08/21 05:22: Troponin I 0.028, White Blood Count 8.3, Red Blood Count 4.02L, Hemoglobin 11.0L , Hematocrit 36L, Mean Corpuscular Volume 90, Mean Corpuscular Hemoglobin 27, Mean Corpuscular Hemoglobin Concent 30L, Red Cell Distribution Width 17.5H, Platelet Count 198, Mean Platelet Volume 11.2, Sodium Level 136, Potassium Level 3.9, Chloride Level 96L, Carbon Dioxide Level 31, Anion Gap 9, Blood Urea Nitrogen 19H, Creatinine 0.75, Estimat Glomerular Filtration Rate 100, BUN/Creatinine Ratio 25, Glucose Level 134H, Calcium Level 9.3, Magnesium Level 1.7, Triglycerides Level 107, Cholesterol Level 113, LDL Cholesterol Direct 62, VLDL Cholesterol 21, HDL Cholesterol 30L Laboratory Tests 04/07/21 13:23 04/08/21 05:22 A/P: Assessment: Chest pain, noncardiac, etiology unestablished - No clinical evidence or acute MT Minimally elevated troponin - essentially unchanged on successive exams - etiology undetermined Recent long hospitalization for treatment of pneumonia CAD - s/p two cor stents in 1995 following MT, details unknown - NSTEMI on 03/13/21 - Card cath on 03/13/21: Coronary artery disease primarily consisting of 80% proximal to mid vessel stenosis of the right coronary artery that was successfully stented with Marlee 3.0 x 23 mm stent that was deployed at 20 atmos pheres. The other coronary vessels have mild to moderate diffuse plaque. Aortic stenosis with a peak to peak pressure gradient of approximately 70 mmHg. Left ventricular end-diastolic pressure is 19 mmHg. Left ventricular ejection fraction is 50 to 55%. Aortic stenosis, severe. - Echo of 01/19/19: LVEF 70-75%, concentric LVH, mod dil of LA, severe (area 1.1), RVSP 20 mmHg - Echo of 09/08/20: LVEF 55-60%, grade 1 hong dysfxn, AoV could not be adequately interrogated, PASP 35-40 mmHg - Echo 09/30/20: LVEF 60-65%, mod (valve area 1.3 sq cm, mean peak grad 56, mean grad 34), PASP 25-30 mmHg - Echo of 03/14/21: LVEF: 50-55%, moderately severe with valve area approx 1 sq cm and mean grad 45 mmHg, grade 1 diastolic dysfunction of LV Suprapubic cystostomy Quit smoking in 1995 H/o hypertension H/o hyperlipidemia LILIAN, non-compliant with CPAP Mild COPD on PFTs of Mar 2019 Carotid u/s of 04/19/19: mild bilateral carotid art disease without evidence of hemodynamic significance AAA screening scan of 04/19/19: no evidence of AAA DJD: bilat TKR in 2019 Chronic, bilat leg swelling due to venous insuff Plan: I had a long and detailed discussion with him and his daugters Continue anti-platelet tx d/t recent coronary stent placement Beta-dannielle being held because family reports low bp lately Reduce furosemide + K to qod Monitor lab closely Leukocytosis of undetermined etiology - management per Medical Services Ok to d/c from cardiac standpoint F/u at our office in 2-3 weeks Clinical Quality Measures AMI/AHF: ASA po Prior to arrival: DONN Avila MD FACP FAC CCDS Apr 08, 2021 10:09
[2021-04-08] MEDS ORDERED: CYAN25003 SL (11:32)
[2021-04-08] MEDS ORDERED: CLOP75TA69 PO (11:32)
--- NOTE | 2021-04-08 11:52 | Discharge Inst-Simple/Standard ---
Discharge Inst-Standard Patient Instructions/Follow Up Plan of Care/Instructions/FU: Please continue to take your medications as written. Please follow up with your primary care doctor as scheduled and with Dr Giraldo. Activity as Tolerated: Yes Discharge Diet: Cardiac Diet Return to The Hospital For: Chest pain, shortness of breath, fever, low oxygen saturations, if you feel you are getting worse. Other Inst to Patient Please resume home health services for nursing, physical therapy, occupational therapy. LIZANDRO LENTZ MD Apr 08, 2021 11:52
[2021-04-09] MEDS ORDERED: ENOXAPARIN 40 MG/0.4 ML (LOVENOX) SYR SQ SCH (06:00)
== END 2021-04-08 11:52 | disposition home or self-care (01) ==
LOC: EDUNIT# 12:47 → ER 12:51 → UNDOADMOB 14:35 → CSD 14:35 → UNDODISOB 04-08 13:36
PROVIDERS: ADMIT Family Medicine; ATTEND Family Medicine
DX: I25.10 Atherosclerotic heart disease of native coronary artery without angina pectoris (principal); I21.A1 Myocardial infarction type 2; I10 Essential (primary) hypertension; I35.0 Nonrheumatic aortic (valve) stenosis; J96.11 Chronic respiratory failure with hypoxia; D64.9 Anemia, unspecified; E03.9 Hypothyroidism, unspecified; N40.0 Benign prostatic hyperplasia without lower urinary tract symptoms; E66.9 Obesity, unspecified; E78.00 Pure hypercholesterolemia, unspecified; G62.9 Polyneuropathy, unspecified; K21.9 Gastro-esophageal reflux disease without esophagitis; K59.09 Other constipation; M19.90 Unspecified osteoarthritis, unspecified site; G89.29 Other chronic pain; M10.9 Gout, unspecified; Z79.82 Long term (current) use of aspirin; Z79.02 Long term (current) use of antithrombotics/antiplatelets; Z79.899 Other long term (current) drug therapy; Z79.84 Long term (current) use of oral hypoglycemic drugs; Z79.890 Hormone replacement therapy; Z90.89 Acquired absence of other organs; Z83.3 Family history of diabetes mellitus; Z82.3 Family history of stroke; Z80.0 Family history of malignant neoplasm of digestive organs
CPT/HCPCS: 71045; 80048 ×2; 80061; 81000; 82550; 82947 ×2; 83735; 83880; 84484 ×2; 85025; 85027; 93005; 94640 ×2; 94760 ×2; 97162; 99284; G0378; 36415; 96372

== ENCOUNTER → 2021-09-04 | Outpatient (CLI) | payer MEDICARE, OTHER ==
[~2021-09-04] MED LIST changes: +CLOP75TA69 PO; +CYAN25003 SL
== END ==
LOC: CARD 14:00
PROVIDERS: ATTEND Nurse Practitioner Family
DX: R00.2 Palpitations (principal)
CPT/HCPCS: 93225; 93226

== ENCOUNTER 2021-09-14 01:15 | Emergency (ER) | payer MEDICARE, OTHER ==
[~2021-09-14] VITALS: Ht 180.3 cm; Wt 106.6 kg
--- NOTE | 2021-09-14 01:45 | ED GU-Male ---
General Chief Complaint: Catheter/Drain/Tube Problems Stated Complaint: BLOOD IN CATHETER Source: patient History of Present Illness Date Seen by Provider: Sep 14, 2021 Time Seen by Provider: 01:30 Initial Comments PT ARRIVES VIA POV FROM HOME PT HAS PERMANENT SUPRAPUBIC CATHETER IN PLACE FOR 1 1/2 YEARS LAST CHANGED OUT [address] MCMILLAN STATES HE NOTICED BLOOD IN HIS CATHETER BAG AND TUBING YESTERDAY AROUND NOON (Tuesday09/13/21) CATHETER HAS BEEN DRAINING NORMALLY, NO PAIN OR BLEEDING OR LEAKING AROUND THE CATHETER PT STILL IS ABLE TO URINATE A LITTLE AND IS INCONTINENT OF URINE WELL. HE DID URINATE EARLIER TODAY AND HE HAD ALOT OF BURNING WHEN HE URINATED AND IT WAS BLOODY AND HE PASSED A BLOOD CLOT. HE STATES THE CATHETER DRAINED CLEAR ALL DAY TODAY, THEN BEGAN PASSING BLOOD AGAIN TONIGHT AND GOT WORRIED NO ABDOMINAL PAIN OR BACK PAIN NO FEVER NO NAUSEA/VOMITING NO TRAUMA TO THE AREA PT STATES HE IS ON 81 MG ASPIRIN, NO OTHER BLOOD THINNERS. HOWEVER, ON MED RECONCILIATION, PT IS ALSO ON PLAVIX STATES HE FEELS FINE. PCP: DR. GUEVARA UROLOGIST: DR. MCMILLAN Allergies and Home Medications Allergies Coded Allergies: Sulfa (Sulfonamide Antibiotics) (Verified Allergy, Intermediate, RASH, CHILLS, 07/10/19) Patient Home Medication List Home Medication List Reviewed: Yes Ascorbate Calcium/Bioflavonoid (Poornima-C 1,000 mg Tablet) 1 Each Tablet, 1 EACH PO DAILY, (Reported) Entered as Reported by: EL COLLADO on 03/26/21 1231 Aspirin (Low Dose Aspirin EC) 81 Mg Tablet.dr, 81 MG PO DAILY, (Reported) Entered as Reported by: REILLY TRAN on 01/30/21 0222 Atorvastatin Calcium (Atorvastatin Calcium) 40 Mg Tablet, 40 MG PO DAILY, (Reported) Entered as Reported by: DESTINY SOARES on 02/15/18 0920 Calcium Carbonate/Vitamin D3 (Calcium 600 mg-D3 20 Mcg Cplt) 1 Each Tablet, 1 EACH PO 1700, (Reported) Entered as Reported by: EL COLLADO on 03/26/21 1231 Cefdinir (Cefdinir) 300 Mg Capsule, 300 MG PO BID Prescribed by: CHRISTY CALIX on 09/14/21 0251 Clopidogrel Bisulfate (Plavix) 75 Mg Tablet, 75 MG PO DAILY, (Reported) Entered as Reported by: PABLO ESQUIVEL on 04/08/21 1132 Cranberry Extract/Vit C (Azo Cranberry Softgel) 1 Each Capsule, 2 EACH PO 1700, (Reported) Entered as Reported by: REILLY TARN on 01/30/21 0128 Cyanocobalamin (Vitamin B-12) (Vitamin B-12) 2,500 Mcg Tab.subl, 2,500 MCG SL DAILY, (Reported) Entered as Reported by: PABLO ESQUIVEL on 04/08/21 113 Famotidine (Acid Lineman Apprentice (FAMOTIDINE)) 20 Mg Tablet, 20 MG PO BID, (Reported) Entered as Reported by: PABLO ESQUIVEL on 03/13/21 1300 Fesoterodine Fumarate (Toviaz) 4 Mg Tab.sr.24h, 4 MG PO DAILY, (Reported) Entered as Reported by: PABLO ESQUIVEL on 01/30/21 115 Furosemide (Furosemide) 40 Mg Tablet, 40 MG PO DAILY, (Reported) Entered as Reported by: REILLY TRAN on 01/30/21 0201 Gluc Beckham/Chondro Beckham A/Vit C/Mn (Glucosamine Chondroitin Tab) 1 Each Tablet, 1 TAB PO DAILY, (Reported) Entered as Reported by: DESTINY SOARES on 02/15/18 1421 Lactobacillus Acidophilus/Pect (Acidophilus-Pectin Capsule) 1 Each Capsule, 2 EACH PO TIDWM, (Reported) Entered as Reported by: PABLO ESQUIVEL on 03/13/21 1300 Levothyroxine Sodium (Synthroid) 50 Mcg Tablet, 50 MCG PO DAILY, (Reported) Entered as Reported by: DESTINY SOARES on 02/15/18 0920 Levothyroxine Sodium (Synthroid) 200 Mcg Tablet, 200 MCG PO DAILY, (Reported) Entered as Reported by: DESTINY SOARES on 05/14/19 1431 Melatonin (Melatonin) 10 Mg Tab.rapdis, 10 MG PO HS PRN for SLEEP, (Reported) Entered as Reported by: PABLO ESQUIVEL on 01/30/21 1152 Metformin HCl (Metformin HCl ER) 1,000 Mg Tab.er.24, 1,000 MG PO BID WITH MEALS, (Reported) Entered as Reported by: DESTINY SOARES on 02/15/18 0920 Mv-Mn/FA/Lycopene/Lut/Hb#178 (Ruben Multi For Men Tablet) 1 Each Tablet, 1 TAB PO DAILY, (Reported) Entered as Reported by: DESTINY SOARES on 02/15/18 142 Nitrofurantoin Macrocrystal (Nitrofurantoin) 100 Mg Capsule, 100 MG PO 1700 W/DINNER, (Reported) Entered as Reported by: REILLY TRAN on 01/30/21 0140 Craig 3 Polyunsat Fatty Acids (Fish Oil 1,000 mg Capsule) 1,000 Mg Cap, 1,000 MG PO DAILY, (Reported) Entered as Reported by: DESTINY SOARES on 02/15/18 142 Pantoprazole Sodium (Pantoprazole Sodium) 40 Mg Tablet.dr, 40 MG PO 1700, (Reported) Entered as Reported by: DESTINY SOARES on 02/15/18 0920 Potassium Chloride (Potassium Chloride) 10 Meq Capsule.er, 10 MEQ PO DAILY, (Reported) Entered as Reported by: REILLY TRAN on 01/30/21 0203 Pregabalin (Lyrica) 150 Mg Capsule, 150 MG PO BID, (Reported) Entered as Reported by: LIOR GRANT on 01/16/19 1132 Saw [place] (Saw Buffalo) 500 Mg Capsule, 1,000 MG PO DAILY, (Reported) Entered as Reported by: EL COLLADO on 03/26/21 1231 Sennosides/Docusate Sodium (Senna-Plus Tablet) 1 Each Tablet, 2 TAB PO BID, (Reported) Entered as Reported by: REILLY TRAN on 01/30/21 014 Tramadol HCl (Tramadol HCl) 50 Mg Tablet, 50 MG PO Q6H PRN for PAIN-MODERATE (5- 7), (Reported) Entered as Reported by: REILLY TRAN on 01/30/21 0138 Zinc (Zinc) 50 Mg Tablet, 50 MG PO DAILY, (Reported) Entered as Reported by: DESTINY SOARES on 02/15/18 142 Review of Systems Review of Systems Constitutional: no symptoms reported Respiratory: no symptoms reported Cardiovascular: no symptoms reported Gastrointestinal: no symptoms reported Genitourinary: see HPI Musculoskeletal: no symptoms reported Skin: no symptoms reported Psychiatric/Neurological: No Symptoms Reported Endocrine: No Symptoms Reported Past Oeaflko-Xjgvpl-Hmphuc Hx Patient Social History Tobacco Use?: Yes Tobacco type used: Cigarettes Smoking Status: Former Smoker Substance use?: No Alcohol Use?: No Immunizations Up To Date First/Initial COVID19 Vaccinat: 06/15/20 APPROXIMATE Second COVID19 Vaccination Luis: 07/16/20 APPROXIMATE Third COVID19 Vaccination Date: 07/27 Seasonal Allergies Seasonal Allergies: No Past Medical History Surgery/Hospitalization HX: NECK AND BACK SURGERY, BILATERAL KNEE REPLACEMENT, APPENDECTOMY, 3 HEART STENTS (LAST ONE 3 WEEKS AGO), CATERACTS REMOVED, SUPRAPUBIC CATHETER, RENAL STENT (POSSIBLY) Surgeries: Yes (BACK, NECK, HERNIA, R TKR) Abdominal, Appendectomy, Bladder Surgery, Cardiac, Coronary Stent, Eye Surgery, Gallbladder, Joint Replacement, Orthopedic, Renal Respiratory: Yes Pneumonia, Sleep Apnea Currently Using CPAP: No Currently Using BIPAP: No Cardiac: Yes (CARDIAC STENTS) Chronic Edema/Swelling, Coronary Artery Disease, High Cholesterol, Hypertension, Valvular Heart Disease Neurological: Yes (R LEG NERVE DAMAGE) Neuropathy Reproductive Disorders: No Sexually Transmitted Disease: No HIV/AIDS: No Genitourinary: Yes (SUPRAPUBIC CATHETER, INCONTINENCE) Benign Prostatic Hyperpl Gastrointestinal: Yes Gastroesophageal Reflux, Chronic Constipation Musculoskeletal: Yes (osteoarthritis) Arthritis, Chronic Back Pain, Gout Endocrine: Yes Hypothyroidsim, Diabetes, Non-Insulin dep HEENT: Yes (READING GLASSES) Cataract Loss of Vision: Denies Hearing Impairment: Denies Cancer: No Psychosocial: No Integumentary: No Blood Disorders: No Adverse Reaction/Blood Tranf: No Family Medical History Alcoholism 19 FATHER Completed stroke 19 MOTHER Diabetes mellitus 19 MOTHER G8 SISTER FH: pancreatic cancer G8 BROTHER HOSPITALIZED ESSENTIALLY FROM 01/2021- 04/08/2021 FOR PNEUMONIA/SEPSIS Physical Exam Vital Signs Vital Signs - First Documented 09/14/21 01:24 Temp 36.5 Pulse 79 Resp 18 B/P (MAP) 146/90 (108) Pulse Ox 96 O2 Delivery Room Air Capillary Refill : Height, Weight, BMI Height: 5'11.00" Weight: 282lbs. 0.0oz. 127.282048no; 35.22 BMI Method:Stated General Appearance: WD/WN, no apparent distress, obese Cardiovascular: regular rate, rhythm Respiratory: normal breath sounds Gastrointestinal: non tender, soft, other (SUPRAPUBIC CATHETER IN PLACE AND DRAINING GROSSLY BLOODY URINE. NO SIGNS OF LEAKING AROUND THE SITE OR SIGNS OF INFECTION) Back: no CVA tenderness Extremities: pedal edema (1-2+ EDEMA BILATERALLY WITH CHRONIC VENOUS STASIS CHANGES BILATERALLY--FEET AND LOWER LEGS DUSKY) Neurologic/Psychiatric: alert, normal mood/affect, oriented x 3; No motor weakness; other (PERIPHERAL NEUROPATHY) Skin: normal color, warm/dry Progress/Results/Core Measures Suspected Sepsis SIRS Temperature: Pulse: Respiratory Rate: Laboratory Tests 09/14/21 02:00: White Blood Count 8.4 Blood Pressure / Mean: Laboratory Tests 09/14/21 02:00: Creatinine 0.77, Platelet Count 162 Results/Orders Lab Results Laboratory Tests Test 09/14/21 02:00 09/14/21 02:29 Range/Units White Blood Count 8.4 4.3-11.0 10^3/uL Red Blood Count 4.26 L 4.30-5.52 10^6/uL Hemoglobin 12.2 L 13.3-17.7 g/dL Hematocrit 39 L 40-54 % Mean Corpuscular Volume 91 80-99 fL Mean Corpuscular Hemoglobin 29 25-34 pg Mean Corpuscular Hemoglobin Concent 32 32-36 g/dL Red Cell Distribution Width 16.6 H 10.0-14.5 % Platelet Count 162 130-400 10^3/uL Mean Platelet Volume 11.3 9.0-12.2 fL Immature Granulocyte % (Auto) 0 % Neutrophils (%) (Auto) 74 42-75 % Lymphocytes (%) (Auto) 14 12-44 % Monocytes (%) (Auto) 8 0-12 % Eosinophils (%) (Auto) 3 0-10 % Basophils (%) (Auto) 1 0-10 % Neutrophils # (Auto) 6.2 1.8-7.8 10^3/uL Lymphocytes # (Auto) 1.2 1.0-4.0 10^3/uL Monocytes # (Auto) 0.7 0.0-1.0 10^3/uL Eosinophils # (Auto) 0.3 0.0-0.3 10^3/uL Basophils # (Auto) 0.1 0.0-0.1 10^3/uL Immature Granulocyte # (Auto) 0.0 0.0-0.1 10^3/uL Percent Immature Platelet Fraction 7.4 0.0-7.6 % Sodium Level 139 135-145 MMOL/L Potassium Level 4.0 3.6-5.0 MMOL/L Chloride Level 105 98-107 MMOL/L Carbon Dioxide Level 20 L 21-32 MMOL/L Anion Gap 14 5-14 MMOL/L Blood Urea Nitrogen 18 7-18 MG/DL Creatinine 0.77 0.60-1.30 MG/DL Estimat Glomerular Filtration Rate 89 BUN/Creatinine Ratio 23 Glucose Level 120 H 70-105 MG/DL Calcium Level 9.5 8.5-10.1 MG/DL Urine Color YELLOW Urine Clarity CLEAR Urine pH 8.5 5-9 Urine Specific [place] 1.015 L 1.016-1.022 Urine Protein 3+ H NEGATIVE Urine Glucose (UA) NEGATIVE NEGATIVE Urine Ketones 1+ H NEGATIVE Urine Nitrite POSITIVE H NEGATIVE Urine Bilirubin 3+ H NEGATIVE Urine Urobilinogen 4.0 < = 1.0 MG/DL Urine Leukocyte Esterase 3+ H NEGATIVE Urine RBC (Auto) 3+ H NEGATIVE Urine RBC TNTC H /HPF Urine WBC 50-100 H /HPF Urine Squamous Epithelial Cells NONE /HPF Urine Crystals PRESENT H /LPF Urine Amorphous Sediment FEW [place] PHOSPHATE H /LPF Urine Bacteria LARGE H /HPF Urine Casts NONE /LPF Urine Mucus NEGATIVE /LPF Urine Culture Indicated YES My Orders Orders - CHRISTY CALIX DO Ed Iv/Invasive Line Start (09/14/21 01:39) Basic Metabolic Panel (09/14/21 01:39) Cbc With Automated Diff (09/14/21 01:39) Ua Culture If Indicated (09/14/21 01:39) Urinary Catheter: Hand Irrigat (09/14/21 02:40) Urine Culture (09/14/21 02:29) Ceftriaxone 1 Gm Pre-Mix (Rocephin 1 Gm (09/14/21 02:44) Vital Signs/I&O 09/14/21 09/14/21 01:24 03:21 Temp 36.5 36.7 Pulse 79 76 Resp 18 18 B/P (MAP) 146/90 (108) 129/79 Pulse Ox 96 95 O2 Delivery Room Air Room Air Capillary Refill : Progress Note : Progress Note CATHETER IRRIGATED EASILY WITH RETURN OF A FEW VERY TINY CLOTS. CATHETER CONTINUES TO DRAIN WELL WITHOUT PROBLEMS REVIEWED LAST URINE CULTURE--GREW OUT PSEUDOMONAS, SENSITIVE TO MULTIPLE ANTIBIOTICS. PT SLEPT FOR REMAINDER OF ER STAY Departure Impression Primary Impression: UTI Additional Impressions: Acute hemorrhagic cystitis PERMANENT SUPRAPUBIC CATHTER Disposition: HOME, SELF-CARE Condition: Stable Departure-Patient Inst. Decision time for Depature: 02:58 Referrals: BRIDGETT GUEVARA MD (PCP/Family) Primary Care Physician Patient Instructions: Urinary Tract Infection, Adult ED, Acute Cystitis (DC) Add. Discharge Instructions: HOLD YOUR PLAVIX FOR ONE DAY, THEN CONTINUE YOUR OTHER MEDICATIONS PRESCRIBED FOLLOW UP WITH DR. MCMILLAN THIS WEEK FOR FURTHER CARE--CALL IN THE MORNING TO [facility] APPOINTMENT All discharge instructions reviewed with patient and/or family. Voiced understanding. Scripts Cefdinir (Cefdinir) 300 Mg Capsule 300 MG PO BID, #20 CAP Prov: CHRISTY CALIX DO 09/14/21 CHRISTY CALIX DO Sep 14, 2021 01:45
[2021-09-14 02:13] LABS: BASOPHILS # (AUTO) 0.1 10^3/uL (0.0-0.1); BASOPHILS % (AUTO) 1 % (0-10); EOSINOPHILS # (AUTO) 0.3 10^3/uL (0.0-0.3); EOSINOPHILS % (AUTO) 3 % (0-10); HEMATOCRIT 39 % (40-54); HEMOGLOBIN 12.2 g/dL (13.3-17.7); LYMPHOCYTES # (AUTO) 1.2 10^3/uL (1.0-4.0); LYMPHOCYTES % (AUTO) 14 % (12-44); MEAN CORPUSCULAR HEMOGLOBIN 29 pg (25-34); MEAN CORPUSCULAR HGB CONC 32 g/dL (32-36); MEAN CORPUSCULAR VOLUME 91 fL (80-99); MEAN PLATELET VOLUME 11.3 fL (9.0-12.2); MONOCYTES # (AUTO) 0.7 10^3/uL (0.0-1.0); MONOCYTES % (AUTO) 8 % (0-12); NEUTROPHILS # (AUTO) 6.2 10^3/uL (1.8-7.8); NEUTROPHILS % (AUTO) 74 % (42-75); PLATELET COUNT 162 10^3/uL (130-400); WHITE BLOOD COUNT 8.4 10^3/uL (4.3-11.0)
[2021-09-14 02:33] LABS: CALCIUM 9.5 MG/DL (8.5-10.1)
[2021-09-14 02:36] LABS: CLARITY,URINE CLEAR; COLOR,URINE YELLOW; GLUCOSE, URINE (UA) NEGATIVE (NEGATIVE); KETONES,URINE 1+ (NEGATIVE); LEUKOCYTE ESTERASE ,URINE 3+ (NEGATIVE); NITRITE,URINE POSITIVE (NEGATIVE); PH,URINE 8.5 (5-9); PROTEIN,URINE 3+ (NEGATIVE)
[2021-09-14 02:37] LABS: CREATININE SERUM 0.77 MG/DL (0.60-1.30)
[2021-09-14 02:42] LABS: BACTERIA,URINE LARGE /HPF; RBC,URINE TNTC /HPF; WBC,URINE 50-100 /HPF
[2021-09-14 02:43] LABS: AMORPHOUS SEDIMENT,UR FEW AMOR PHOSPHATE /LPF
[2021-09-14] MEDS ORDERED: cefTRIAXone 1 GM PRE-MIX 50 ML IV STA (02:44)
[2021-09-14] MEDS ORDERED: CEFD300C3 PO (02:51)
[2021-09-14 03:21] VITALS: BP 129/79
[2021-09-15 07:04] LABS: BILIRUBIN,URINE 3+ (NEGATIVE)
== END 2021-09-14 03:21 | disposition home or self-care (01) ==
LOC: EDUNIT# 01:15 → ER 01:18
DX: N30.01 Acute cystitis with hematuria (principal); E66.9 Obesity, unspecified; Z68.35 Body mass index [BMI] 35.0-35.9, adult; Z96.0 Presence of urogenital implants; Z87.891 Personal history of nicotine dependence; Z79.82 Long term (current) use of aspirin; Z79.02 Long term (current) use of antithrombotics/antiplatelets
CPT/HCPCS: 36415; 80048; 81000; 85025; 87077; 87088

== ENCOUNTER → 2022-05-13 | Outpatient (CLI) | payer MEDICARE, OTHER ==
[~2022-05-13] MED LIST changes: +CLOP-31 PO; -CLOP75TA69 PO; -GLUC1TAB20 PO; +GLUC1TAB21 PO; +LEVO750T PO; -LEVO750T39 PO; +MELA10TA20 PO; -MELA10TA7 PO; -NYST15CR TP; +NYST15CR35 TP
== END ==
LOC: CARD 12:00
PROVIDERS: ATTEND Internal Medicine Cardiovascular Disease
DX: I35.0 Nonrheumatic aortic (valve) stenosis (principal)
CPT/HCPCS: 93306

== ENCOUNTER 2023-02-07 08:15 | Emergency (ER) | payer MEDICARE, OTHER ==
[~2023-02-07] VITALS: Ht 180 cm; Wt 109.0 kg
[~2023-02-07 08:15] MED LIST changes: -CYAN50003 PO; +CYAN50007 PO; -LOSA100T57 PO; +LOSA100T58 PO; -MELA1TAB20 PO; +MELA1TAB72 PO; -POTA10CA43 PO; +POTA10CA84 PO
[2023-02-07 09:41] LABS: CLARITY,URINE CLOUDY; COLOR,URINE YELLOW; GLUCOSE, URINE (UA) NEGATIVE (NEGATIVE); PROTEIN,URINE 1+ (NEGATIVE)
[2023-02-07 09:42] LABS: AMORPHOUS SEDIMENT,UR FEW AMOR URATES /LPF; BACTERIA,URINE LARGE /HPF; BILIRUBIN,URINE NEGATIVE (NEGATIVE); KETONES,URINE TRACE (NEGATIVE); LEUKOCYTE ESTERASE ,URINE 2+ (NEGATIVE); NITRITE,URINE POSITIVE (NEGATIVE); RBC,URINE 25-50 /HPF; WBC,URINE 50-100 /HPF
[2023-02-07] MEDS ORDERED: LIDOCAINE 1% INJ 10 ML VIAL ONE (09:56)
[2023-02-07] MEDS ORDERED: LIDOCAINE 1% INJ 20 ML VIAL INJ ONE (10:00)
[2023-02-07] MEDS ORDERED: cefTRIAXone 1,000 MG VIAL IV/IM IM ONE (10:00)
[2023-02-07] MEDS ORDERED: CEFD300C3 PO (10:05)
--- NOTE | 2023-02-07 10:05 | ED GU-Male ---
General Chief Complaint: Catheter/Drain/Tube Problems Stated Complaint: CATHETER CHANGE Nursing Triage Note: PT TO ED STATING HE THINKS HIS "CATHETER IS PLUGGED" ONSET 0200 THIS AM. PT ALSO REPORTS HE THINKS HE MAY HAVE A UTI. REPORTS BLOOD IN HIS CATHETER BAG. NO OTHER C/O VOICED. Source: patient Exam Limitations: no limitations History of Present Illness Date Seen by Provider: Feb 07, 2023 Time Seen by Provider: 09:02 Initial Comments Here with report of suprapubic catheter draining problems. States that the catheter is getting clogged up and noted that yesterday and did have some blood in his bag yesterday which usually means he has a urinary tract infection. It is due to be changed on Tuesday. Denies fever, chills, nausea, vomiting or diarrhea. He has the stuff for the catheter change with him. Timing/Duration: yesterday Severity/Quality: mild Location: suprapubic Radiation: none Activities at Onset: none Modifying Factors: Improves With Resting Associated Symptoms: No abdominal pain, No fever/chills, No nausea/vomiting Allergies and Home Medications Allergies Coded Allergies: Sulfa (Sulfonamide Antibiotics) (Verified Allergy, Intermediate, RASH, CHILLS, 07/10/19) Patient Home Medication List Home Medication List Reviewed: Yes Ascorbate Calcium/Bioflavonoid (Poornima-C 1,000 mg Tablet) 1 Each Tablet, 1 EACH PO DAILY, (Reported) Entered as Reported by: EL COLLADO on 03/26/21 1231 Aspirin (Low Dose Aspirin EC) 81 Mg Tablet.dr, 81 MG PO DAILY, (Reported) Entered as Reported by: REILLY TRAN on 01/30/21 022 Atorvastatin Calcium (Atorvastatin Calcium) 40 Mg Tablet, 40 MG PO DAILY, (Reported) Entered as Reported by: DESTINY SOARES on 02/15/18 0920 Calcium Carbonate/Vitamin D3 (Calcium 600 mg-D3 20 Mcg Cplt) 1 Each Tablet, 1 EACH PO 1700, (Reported) Entered as Reported by: EL COLLADO on 03/26/21 1231 Cefdinir (Cefdinir) 300 Mg Capsule, 300 MG PO BID Prescribed by: CHRISTY CALIX on 09/14/21 0251 Clopidogrel Bisulfate (Plavix) 75 Mg Tablet, 75 MG PO DAILY, (Reported) Entered as Reported by: PABLO ESQUIVEL on 04/08/21 1132 Cranberry Extract/Vit C (Azo Cranberry Softgel) 1 Each Capsule, 2 EACH PO 1700, (Reported) Entered as Reported by: REILLY TRAN on 01/30/21 0128 Cyanocobalamin (Vitamin B-12) (Vitamin B-12) 2,500 Mcg Tab.subl, 2,500 MCG SL DAILY, (Reported) Entered as Reported by: PABLO ESQUIVEL on 04/08/21 113 Famotidine (Acid Bit And Shank Department Supervisor (FAMOTIDINE)) 20 Mg Tablet, 20 MG PO BID, (Reported) Entered as Reported by: PABLO ESQUIVEL on 03/13/21 1300 Fesoterodine Fumarate (Toviaz) 4 Mg Tab.sr.24h, 4 MG PO DAILY, (Reported) Entered as Reported by: PABLO ESQUIVEL on 01/30/21 115 Furosemide (Furosemide) 40 Mg Tablet, 40 MG PO DAILY, (Reported) Entered as Reported by: REILLY TRAN on 01/30/21 0201 Gluc Beckham/Chondro Beckham A/Vit C/Mn (Glucosamine Chondroitin Tab) 1 Each Tablet, 1 TAB PO DAILY, (Reported) Entered as Reported by: DESTINY SOARES on 02/15/18 1421 Lactobacillus Acidophilus/Pect (Acidophilus-Pectin Capsule) 1 Each Capsule, 2 EACH PO TIDWM, (Reported) Entered as Reported by: PABLO ESQUIVEL on 03/13/21 1300 Levothyroxine Sodium (Synthroid) 50 Mcg Tablet, 50 MCG PO DAILY, (Reported) Entered as Reported by: DESTINY SOARES on 02/15/18 0920 Levothyroxine Sodium (Synthroid) 200 Mcg Tablet, 200 MCG PO DAILY, (Reported) Entered as Reported by: DSETINY SOARES on 05/14/19 1431 Melatonin (Melatonin) 10 Mg Tab.rapdis, 10 MG PO HS PRN for SLEEP, (Reported) Entered as Reported by: PABLO ESQUIVEL on 01/30/21 1152 Metformin HCl (Metformin HCl ER) 1,000 Mg Tab.er.24, 1,000 MG PO BID WITH MEALS, (Reported) Entered as Reported by: DESTINY SOARES on 02/15/18 0920 Mv-Mn/FA/Lycopene/Lut/Hb#178 (Ruben Multi For Men Tablet) 1 Each Tablet, 1 TAB PO DAILY, (Reported) Entered as Reported by: DESTINY SOARES on 02/15/18 1421 Nitrofurantoin Macrocrystal (Nitrofurantoin) 100 Mg Capsule, 100 MG PO 1700 W/DINNER, (Reported) Entered as Reported by: REILLY TRAN on 01/30/21 0140 [place] 3 Polyunsat Fatty Acids (Fish Oil 1,000 mg Capsule) 1,000 Mg Cap, 1,000 MG PO DAILY, (Reported) Entered as Reported by: DESTINY SOARES on 02/15/18 142 Pantoprazole Sodium (Pantoprazole Sodium) 40 Mg Tablet.dr, 40 MG PO 1700, (Reported) Entered as Reported by: DESTINY SOARES on 02/15/18 0920 Potassium Chloride (Potassium Chloride) 10 Meq Capsule.er, 10 MEQ PO DAILY, (Reported) Entered as Reported by: REILLY TRAN on 01/30/21 0203 Pregabalin (Lyrica) 150 Mg Capsule, 150 MG PO BID, (Reported) Entered as Reported by: LIOR GRANT on 01/16/19 1132 Saw [place] (Saw [place]) 500 Mg Capsule, 1,000 MG PO DAILY, (Reported) Entered as Reported by: EL COLLADO on 03/26/21 1231 Sennosides/Docusate Sodium (Senna-Plus Tablet) 1 Each Tablet, 2 TAB PO BID, (Reported) Entered as Reported by: REILLY TRAN on 01/30/21 0149 Tramadol HCl (Tramadol HCl) 50 Mg Tablet, 50 MG PO Q6H PRN for PAIN-MODERATE (5- 7), (Reported) Entered as Reported by: REILLY TRAN on 01/30/21 0138 Zinc (Zinc) 50 Mg Tablet, 50 MG PO DAILY, (Reported) Entered as Reported by: DESTINY SOARES on 02/15/18 142 Review of Systems Review of Systems Constitutional: see HPI; No chills, No fever Respiratory: no symptoms reported Cardiovascular: no symptoms reported Genitourinary: see HPI Psychiatric/Neurological: No Symptoms Reported Past Jlsgnoh-Vocect-Dvptyv Hx Patient Social History Tobacco Use?: No Immunizations Up To Date First/Initial COVID19 Vaccinat: 2019 Second COVID19 Vaccination Luis: 2020 Third COVID19 Vaccination Date: 2020 Seasonal Allergies Seasonal Allergies: No Past Medical History Surgery/Hospitalization HX: NECK AND BACK SURGERY, BILATERAL KNEE REPLACEMENT, APPENDECTOMY, 3 HEART STENTS (LAST ONE 3 WEEKS AGO), CATERACTS REMOVED, SUPRAPUBIC CATHETER, RENAL STENT (POSSIBLY) Surgeries: Yes (BACK, NECK, HERNIA, R TKR) Abdominal, Appendectomy, Bladder Surgery, Cardiac, Coronary Stent, Eye Surgery, Gallbladder, Joint Replacement, Orthopedic, Renal Respiratory: Yes Pneumonia, Sleep Apnea Currently Using CPAP: No Currently Using BIPAP: No Cardiac: Yes (CARDIAC STENTS) Chronic Edema/Swelling, Coronary Artery Disease, High Cholesterol, Hypertension, Valvular Heart Disease Neurological: Yes (R LEG NERVE DAMAGE) Neuropathy Reproductive Disorders: No Sexually Transmitted Disease: No HIV/AIDS: No Genitourinary: Yes (SUPRAPUBIC CATHETER, INCONTINENCE) Benign Prostatic Hyperpl Gastrointestinal: Yes Gastroesophageal Reflux, Chronic Constipation Musculoskeletal: Yes (osteoarthritis) Arthritis, Chronic Back Pain, Gout Endocrine: Yes Hypothyroidsim, Diabetes, Non-Insulin dep HEENT: Yes (READING GLASSES) Cataract Loss of Vision: Denies Hearing Impairment: Denies Cancer: No Psychosocial: No Integumentary: No Blood Disorders: No Adverse Reaction/Blood Tranf: No Family Medical History Reviewed Nursing Family Hx Alcoholism 19 FATHER Completed stroke 19 MOTHER Diabetes mellitus 19 MOTHER G8 SISTER FH: pancreatic cancer G8 BROTHER HOSPITALIZED ESSENTIALLY FROM 01/2021- 04/08/2021 FOR PNEUMONIA/SEPSIS Physical Exam Vital Signs Vital Signs - First Documented 02/07/23 08:51 Temp 36.6 Pulse 74 Resp 20 B/P (MAP) 131/78 (95) Pulse Ox 95 O2 Delivery Room Air Capillary Refill : Less Than 3 Seconds Height, Weight, BMI Height: 5'11.00" Weight: 282lbs. 0.0oz. 127.527674re; 33.00 BMI Method:Stated General Appearance: WD/WN, no apparent distress Cardiovascular: regular rate, rhythm, no murmur Respiratory: lungs clear, normal breath sounds Gastrointestinal: non tender, soft, other (Catheter noted that does have significant sediments in the tube without leaking around catheter currently.) Neurologic/Psychiatric: alert, oriented x 3 Skin: normal color, warm/dry Progress/Results/Core Measures Suspected Sepsis SIRS Temperature: Pulse: 74 Respiratory Rate: 20 Blood Pressure 131 /78 Mean: 95 Results/Orders Lab Results Laboratory Tests Test 02/07/23 09:15 Range/Units Urine Color YELLOW Urine Clarity CLOUDY Urine pH 5.0 5-9 Urine Specific [place] 1.015 L 1.016-1.022 Urine Protein 1+ H NEGATIVE Urine Glucose (UA) NEGATIVE NEGATIVE Urine Ketones TRACE H NEGATIVE Urine Nitrite POSITIVE H NEGATIVE Urine Bilirubin NEGATIVE NEGATIVE Urine Urobilinogen 1.0 < = 1.0 MG/DL Urine Leukocyte Esterase 2+ H NEGATIVE Urine RBC (Auto) 3+ H NEGATIVE Urine RBC 25-50 H /HPF Urine WBC 50-100 H /HPF Urine Crystals PRESENT H /LPF Urine Amorphous Sediment FEW [place] URATES H /LPF Urine Bacteria LARGE H /HPF Urine Casts NONE /LPF Urine Mucus NEGATIVE /LPF Urine Culture Indicated YES My Orders Orders - SHADY MONROE MD Ceftriaxone Iv/Im (Ceftriaxone Iv/Im) (02/07/23 10:00) Lidocaine 1% Inj 20 Ml (Xylocaine 1% Inj (02/07/23 10:00) Vital Signs/I&O 02/07/23 08:51 Temp 36.6 Pulse 74 Resp 20 B/P (MAP) 131/78 (95) Pulse Ox 95 O2 Delivery Room Air Capillary Refill : Less Than 3 Seconds Blood Pressure Mean: 95 Progress Note : Progress Note Seen and evaluated. We will go ahead and replace catheter with his equipment and get urine sample afterwards. He is not showing signs of severe infection and we will just get UA and see if there is infection. 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 He is currently on nitrofurantoin by medical reconciliation evaluation. Monitor patient. 1003: UA is nitrite positive and culture is pending. We will go ahead and initiate Rocephin 1 g IM now and initiate outpatient cefdinir as pharmacies are closed today. Discharged home with return precautions. Patient verbalized understanding of instructions and agreement with plan. Send a copy of the chart to Dr. Bach. Departure Impression Primary Impression: Urinary tract infection Qualified Codes: N30.00 - Acute cystitis without hematuria Additional Impression: Suprapubic catheter dysfunction Qualified Codes: T83.010A - Breakdown (mechanical) of cystostomy catheter, initial encounter Disposition: HOME, SELF-CARE Condition: Improved Departure-Patient Inst. Decision time for Depature: 10:04 Referrals: BRIDGETT BACH MD (PCP/Family) Primary Care Physician Patient Instructions: Urinary Tract Infection, Adult (DC), How to Care for Your [place] Catheter Add. Discharge Instructions: All discharge instructions reviewed with patient and/or family. Voiced understanding. Take medications as directed. Get prescription tomorrow and start that medica tion as directed. Follow-up with your doctor for recheck and further evaluation. Cultures are pending and you will be notified if you need antibiotic change. Return for worse pain, fever, vomiting, weakness, breathing problems or other concerns as needed. Scripts Cefdinir (Cefdinir) 300 Mg Capsule 300 MG PO BID, #14 CAP 0 Refills Prov: SHADY MONROE MD 02/07/23 Copy Copies To 1: BRIDGETT BACH MD, TIMOTHY D MD Feb 07, 2023 10:05
[2023-02-07 10:19] VITALS: BP 132/79
== END 2023-02-07 10:19 | disposition home or self-care (01) ==
LOC: EDUNIT# 08:15 → ER 08:16
DX: T83.098A Other mechanical complication of other urinary catheter, initial encounter (principal); N39.0 Urinary tract infection, site not specified
CPT/HCPCS: 81000; 87077; 87088; 99284

== ENCOUNTER 2023-05-16 13:16 | Emergency (ER) | payer MEDICARE, OTHER ==
[~2023-05-16] VITALS: Ht 185 cm; Wt 114.0 kg
[~2023-05-16 13:16] MED LIST changes: +FAMO-356 PO; -FAMO20TA3 PO
--- NOTE | 2023-05-16 13:54 | ED GU-Male ---
General Chief Complaint: - Reproductive Stated Complaint: CATHETER CLOGGED UP Nursing Triage Note: PT HAS SUPRA PUBIC CATHETER, STATES IT WAS CHANGED LAST TUESDAY AND FEELS IT IS CLOGGED SINCE LAST NIGHT, NORMALLY CHANGED MONTHLY Source: patient Exam Limitations: no limitations (BRANDIE WILLOUGHBY) History of Present Illness Date Seen by Provider: May 16, 2023 Time Seen by Provider: 13:39 Initial Comments 82 YO male with history of CAD and DM presents to ED c/o suprapubic catheter problem. Pt reports for the last x 2.5 years he's had an indwelling suprapubic cath d/t frequent UTIs that he gets replaced monthly. States the last change was x 4 days ago, with no problems initially however last night he noticed decreased output. States this morning there was only a slight amount of urine in the bag compared to his baseline. States now the catheter does not appear to be draining at all. He denies suprapubic pain/discomfort, urgency, fever, chills, N/V, shortness of breath or any other acute sx. Timing/Duration: yesterday Severity/Quality: other (no pain) Radiation: none Activities at Onset: none Prior Genitourinary Problems: none Associated Symptoms: No abdominal pain, No dysuria, No fever/chills, No loss of bladder control, No lower back pain, No mass, No nausea/vomiting (BRANDIE WILLOUGHBY) Allergies and Home Medications Allergies Coded Allergies: Sulfa (Sulfonamide Antibiotics) (Verified Allergy, Intermediate, RASH, CHILLS, 07/10/19) Patient Home Medication List Home Medication List Reviewed: Yes (BRANDIE WILLOUGHBY) Ascorbate Calcium/Bioflavonoid (Poornima-C 1,000 mg Tablet) 1 Each Tablet, 1 EACH PO DAILY, (Reported) Entered as Reported by: EL COLLADO on 03/26/21 1231 Aspirin (Low Dose Aspirin EC) 81 Mg Tablet.dr, 81 MG PO DAILY, (Reported) Entered as Reported by: REILLY TRAN on 01/30/21 0222 Atorvastatin Calcium (Atorvastatin Calcium) 40 Mg Tablet, 40 MG PO DAILY, (Reported) Entered as Reported by: DESTINY SOARES on 02/15/18 0920 Calcium Carbonate/Vitamin D3 (Calcium 600 mg-D3 20 Mcg Cplt) 1 Each Tablet, 1 EACH PO 1700, (Reported) Entered as Reported by: EL COLLADO on 03/26/21 1231 Cefdinir (Cefdinir) 300 Mg Capsule, 300 MG PO BID Prescribed by: CHRISTY CALIX on 09/14/21 0251 Cefdinir (Cefdinir) 300 Mg Capsule, 300 MG PO BID Prescribed by: SHADY MONROE on 02/07/23 1005 Clopidogrel Bisulfate (Plavix) 75 Mg Tablet, 75 MG PO DAILY, (Reported) Entered as Reported by: PABLO ESQUIVEL on 04/08/21 1132 Cranberry Extract/Vit C (Azo Cranberry Softgel) 1 Each Capsule, 2 EACH PO 1700, (Reported) Entered as Reported by: REILLY TRAN on 01/30/21 0128 Cyanocobalamin (Vitamin B-12) (Vitamin B-12) 2,500 Mcg Tab.subl, 2,500 MCG SL DAILY, (Reported) Entered as Reported by: PABLO ESQUIVEL on 04/08/21 1132 Famotidine (Acid Lockstitch Zipper Setter (FAMOTIDINE)) 20 Mg Tablet, 20 MG PO BID, (Reported) Entered as Reported by: PABLO ESQUIVEL on 03/13/21 1300 Fesoterodine Fumarate (Toviaz) 4 Mg Tab.sr.24h, 4 MG PO DAILY, (Reported) Entered as Reported by: PABLO ESQUIVEL on 01/30/21 1152 Furosemide (Furosemide) 40 Mg Tablet, 40 MG PO DAILY, (Reported) Entered as Reported by: REILLY TRAN on 01/30/21 0201 Gluc Beckham/Chondro Beckham A/Vit C/Mn (Glucosamine Chondroitin Tab) 1 Each Tablet, 1 TAB PO DAILY, (Reported) Entered as Reported by: DESTINY SOARES on 02/15/18 1421 Lactobacillus Acidophilus/Pect (Acidophilus-Pectin Capsule) 1 Each Capsule, 2 EACH PO TIDWM, (Reported) Entered as Reported by: PABLO ESQUIVEL on 03/13/21 1300 Levothyroxine Sodium (Synthroid) 50 Mcg Tablet, 50 MCG PO DAILY, (Reported) Entered as Reported by: DESTINY SOARES on 02/15/18 0920 Levothyroxine Sodium (Synthroid) 200 Mcg Tablet, 200 MCG PO DAILY, (Reported) Entered as Reported by: DESTINY SOARES on 05/14/19 1431 Melatonin (Melatonin) 10 Mg Tab.rapdis, 10 MG PO HS PRN for SLEEP, (Reported) Entered as Reported by: PABLO ESQUIVEL on 01/30/21 1152 Metformin HCl (Metformin HCl ER) 1,000 Mg Tab.er.24, 1,000 MG PO BID WITH MEALS, (Reported) Entered as Reported by: DESTINY SOARES on 02/15/18 0920 Mv-Mn/FA/Lycopene/Lut/Hb#178 (Ruben Multi For Men Tablet) 1 Each Tablet, 1 TAB PO DAILY, (Reported) Entered as Reported by: DESTINY SOARES on 02/15/18 1421 Nitrofurantoin Macrocrystal (Nitrofurantoin) 100 Mg Capsule, 100 MG PO 1700 W/DINNER, (Reported) Entered as Reported by: REILLY TRAN on 01/30/21 0140 [employer] 3 Polyunsat Fatty Acids (Fish Oil 1,000 mg Capsule) 1,000 Mg Cap, 1,000 MG PO DAILY, (Reported) Entered as Reported by: DESTINY SOARES on 02/15/18 142 Pantoprazole Sodium (Pantoprazole Sodium) 40 Mg Tablet.dr, 40 MG PO 1700, (Reported) Entered as Reported by: DESTINY SOARES on 02/15/18 0920 Potassium Chloride (Potassium Chloride) 10 Meq Capsule.er, 10 MEQ PO DAILY, (Reported) Entered as Reported by: REILLY TRAN on 01/30/21 0203 Pregabalin (Lyrica) 150 Mg Capsule, 150 MG PO BID, (Reported) Entered as Reported by: LIOR GRANT on 01/16/19 1132 Saw [place] (Saw [place]) 500 Mg Capsule, 1,000 MG PO DAILY, (Reported) Entered as Reported by: EL COLLADO on 03/26/21 1231 Sennosides/Docusate Sodium (Senna-Plus Tablet) 1 Each Tablet, 2 TAB PO BID, (Reported) Entered as Reported by: REILLY TRAN on 01/30/21 0149 Tramadol HCl (Tramadol HCl) 50 Mg Tablet, 50 MG PO Q6H PRN for PAIN-MODERATE (5- 7), (Reported) Entered as Reported by: REILLY TRAN on 01/30/21 0138 Zinc (Zinc) 50 Mg Tablet, 50 MG PO DAILY, (Reported) Entered as Reported by: DESTINY SOARES on 02/15/18 1421 Review of Systems Review of Systems Constitutional: No chills, No diaphoresis, No fever, No weakness EENTM: No epistaxis, No nose congestion Respiratory: No cough, No dyspnea on exertion, No short of breath, No wheezing Cardiovascular: No chest pain, No edema; vascular heart diseas (chronic - heart valve surgery 6 months ago) Gastrointestinal: No abdominal pain, No constipation, No diarrhea, No jaundice, No loss of appetite, No nausea, No vomiting Genitourinary: denies burning, denies dysuria, denies frequency, denies flank pain, denies hematuria, denies pain; other (decreased urine output via suprapubic catheter) Musculoskeletal: back pain (chronic); No joint pain, No neck pain Skin: No change in color, No pruritus, No rash Psychiatric/Neurological: Denies Headache, Denies Numbness, Denies Weakness Endocrine: No Symptoms Reported Hematologic/Lymphatic: No Symptoms Reported (BRANDIE WILLOUGHBY) All Other Systemes Reviewed Negative Unless Noted: Yes (BRANDIE WILLOUGHBY) Past Rednmhh-Qntcvo-Myqypv Hx Patient Social History Tobacco Use?: No Substance use?: No Alcohol Use?: No (BRANDIE WILLOUGHBY) Immunizations Up To Date First/Initial COVID19 Vaccinat: 2019 Second COVID19 Vaccination Luis: 2020 Third COVID19 Vaccination Date: 2020 (BRANDIE WILLOUGHBY) Seasonal Allergies Seasonal Allergies: No (BRANDIE WILLOUGHBY) Past Medical History Surgery/Hospitalization HX: NECK AND BACK SURGERY, BILATERAL KNEE REPLACEMENT, APPENDECTOMY, 3 HEART STENTS (LAST ONE 3 WEEKS AGO), CATERACTS REMOVED, SUPRAPUBIC CATHETER, RENAL STENT (POSSIBLY) Surgeries: Yes (BACK, NECK, HERNIA, R TKR) Abdominal, Appendectomy, Bladder Surgery, Cardiac, Coronary Stent, Eye Surgery, Gallbladder, Joint Replacement, Orthopedic, Renal Respiratory: Yes Pneumonia, Sleep Apnea Currently Using CPAP: No Currently Using BIPAP: No Cardiac: Yes (CARDIAC STENTS) Chronic Edema/Swelling, Coronary Artery Disease, High Cholesterol, Hypertension, Valvular Heart Disease Neurological: Yes (R LEG NERVE DAMAGE) Neuropathy Reproductive Disorders: No Sexually Transmitted Disease: No HIV/AIDS: No Genitourinary: Yes (SUPRAPUBIC CATHETER, INCONTINENCE) Benign Prostatic Hyperpl Gastrointestinal: Yes Gastroesophageal Reflux, Chronic Constipation Musculoskeletal: Yes (osteoarthritis) Arthritis, Chronic Back Pain, Gout Endocrine: Yes Hypothyroidsim, Diabetes, Non-Insulin dep HEENT: Yes (READING GLASSES) Cataract Loss of Vision: Denies Hearing Impairment: Denies Cancer: No Psychosocial: No Integumentary: No Blood Disorders: No Adverse Reaction/Blood Tranf: No (BRANDIE WILLOUGHBY) Family Medical History Alcoholism 19 FATHER Completed stroke 19 MOTHER Diabetes mellitus 19 MOTHER G8 SISTER FH: pancreatic cancer G8 BROTHER HOSPITALIZED ESSENTIALLY FROM 01/2021- 04/08/2021 FOR PNEUMONIA/SEPSIS (BRANDIE WILLOUGHBY) Physical Exam Vital Signs Vital Signs - First Documented 05/16/23 13:33 Temp 36.4 Pulse 84 Resp 20 B/P (MAP) 149/89 (109) Pulse Ox 96 O2 Delivery Room Air (LEANNE,[facility] DO) Vital Signs Capillary Refill : (BRANDIE WILLOUGHBY) Height, Weight, BMI Height: 5'11.00" Weight: 282lbs. 0.0oz. 127.222306za; 33.00 BMI Method:Stated General Appearance: WD/WN, no apparent distress HEENT: PERRL/EOMI; No pale conjunctivae (R), No pale conjunctivae (L) Neck: non-tender, full range of motion, supple, normal inspection Cardiovascular: normal peripheral pulses, regular rate, rhythm, no edema, no gallop, no JVD, no murmur Respiratory: chest non-tender, lungs clear, normal breath sounds, no respiratory distress, no accessory muscle use Gastrointestinal: normal bowel sounds, non tender (no suprapubic tenderness ), soft, no organomegaly, no pulsatile mass; No guarding, No rebound, No tenderness Back: normal inspection, no CVA tenderness, no vertebral tenderness Extremities: normal range of motion, non-tender, no calf tenderness, pedal edema (b/l LE 1-2+ pitting edema which he states is not new for him, with very dry skin noted. ) Neurologic/Psychiatric: no motor/sensory deficits, alert, normal mood/affect, oriented x 3 Skin: normal color, warm/dry Lymphatic: no adenopathy (BRANDIE WILLOUGHBY) Progress/Results/Core Measures Suspected Sepsis SIRS Temperature: Pulse: 84 Respiratory Rate: 20 Blood Pressure 149 /89 Mean: 109 (BRANDIE WILLOUGHBY) Results/Orders Vital Signs/I&O 05/16/23 13:33 Temp 36.4 Pulse 84 Resp 20 B/P (MAP) 149/89 (109) Pulse Ox 96 O2 Delivery Room Air (AZEB PERDOMO DO) Vital Signs/I&O Capillary Refill : (BRANDIE WILLOUGHBY) Blood Pressure Mean: 109 Progress Note : Progress Note Pt presented to ED with decreased urinary output from suprapubic catheter, onset x 24 hours. The catheter was last replaced x 4 days ago with no issues until last night. Pt is afebrile with other vital signs requiring no interventions. Exam is remarkable for an elderly male with no acute distress. Suprapubic catheter noted with minimal urine output. He has no tenderness, erythema or evidence of infection surrounding catheter insertion sight. No suprapubic tenderness, abdominal tenderness, rebound or guarding. Remainder of exam was unremarkable. Performed bedside US, the balloon was visualized with minimal urine noted in the bladder. The catheter was flush, however still have little output. Will monitor and flush once more prior to changing out catheter. Pt is agreeable with plan. 1409 - Pt resting, his catheter is still not draining. Will replace with new suprapubic catheter. (BRANDIE WILLOUGHBY) Departure Communication (Admissions) Attempted to flush the catheter. Initially also deflated the balloon and had some intermittent urine outflow but nothing consistent. We went and changed suprapubic catheter he had normal flow thereafter. He is discharged in stable condition. (AZEB PERDOMO DO) Impression Primary Impression: Urinary catheter dysfunction Qualified Codes: T83.018A - Breakdown (mechanical) of other urinary catheter, initial encounter Disposition: 01 HOME, SELF-CARE Condition: Stable Departure-Patient Inst. Referrals: BRIDGETT GUEVARA MD (PCP/Family) Primary Care Physician Patient Instructions: How to Care for Your Suprapubic Urinary Catheter Add. Discharge Instructions: Your suprapubic catheter was changed today and it appears to be functioning well. Follow-up with your doctor as previously scheduled per your normal routine. All discharge instructions reviewed with patient and/or family. Voiced understanding. BRANDIE WILLOUGHBY May 16, 2023 13:54 AZEB PERDOMO DO May 16, 2023 14:49
[2023-05-16 14:57] VITALS: BP 137/78
== END 2023-05-16 14:57 | disposition home or self-care (01) ==
LOC: EDUNIT# 13:16 → ER 13:17
DX: T83.098A Other mechanical complication of other urinary catheter, initial encounter (principal)
CPT/HCPCS: 51702